=== PATIENT | female | born 1955 | race Caucasian/White ===

== ENCOUNTER 2016-03-03 15:37 | Emergency (ER) | payer MEDICAID ==
[~2016-03-03] VITALS: Ht 162.6 cm; Wt 47.6 kg
[~2016-03-03 15:37] MED LIST: ACHD5005 PO; ALAVERT PO; ALBU8.5H2 INH; ASPI-266 PO; ASPI-587 PO; AZIT250T5 PO; BSP10T PO; BUSP10TA95; BUSP10TA95 PO; CEFP200T2 PO; CODE118S2 PO; CYCL10TA9 PO; DESV100T PO; DICL75TA2 PO; DIPH25TA31 PO; FURO40TA4 PO; GABA-488 PO; GBPN300C PO; HYDR-2858 PO; HYDR25CA5 PO; IBP200T PO; KCL20TCR PO; LEVO40CA PO; LEVO80CA PO; LORA0.5T; LORA0.5T PO; LORA10TA7 PO; MIRT30TA6 PO; MULT-963 PO; MULT-974 PO; NAPR-243 PO; POTA20TA15 PO; PREN1TAB71 PO; PROMETHAZINE CODEINE; QUET100T69; QUET100T69 PO; QUET400T; QUET400T3 PO; QUET400T5 PO; RISP1TAB2 PO; TIZA4TAB3 PO; TIZA4TAB55 PO
--- OUTSIDE RECORDS SUMMARY | 2016-03-03 15:42 | XMS REPORT ---
Author Author HUMA LOZOYA [facility] eClinicalWorks Address Unknown Phone Unavailable Care Team Providers Care Cutter Operator Name Role Phone HUMA LOZOYA CP Unavailable Allergies No Known Allergies Problems Problem Type Condition Code Onset Dates Condition Status Problem Other malaise and fatigue 780.79 Active Problem Bipolar I disorder, most recent episode (or current) unspecified 296.7 Active Problem Cervicalgia 723.1 Active Problem Other specified counseling V65.49 Active Problem Encounter for long-term (current) use of other medications V58.69 Active Problem Unspecified breast screening V76.10 Active Problem Pain in joint, shoulder region 719.41 Active Problem Other and unspecified hyperlipidemia 272.4 Active Problem Symptomatic menopausal or female climacteric states 627.2 Active Problem Screening for malignant neoplasm of the cervix V76.2 Active Medications Medication Code System Code Instructions Start Date End Date Status Dosage Ativan [facility] [address]-10 0.5 MG Orally Twice a day Nov 29, 2014 1 tablet as needed Results No Known Results Summary Purpose eClinicalWorks Submission
--- NOTE | 2016-03-03 15:44 | ED Lower Extremity ---
General Stated Complaint: R ANKLE PAIN Source: patient Exam Limitations: no limitations History of Present Illness Time seen by provider: 15:43 Initial Comments To ER from home per EMS with reports of right lateral ankle pain. This began one week ago when she was lifting a table and she twisted this ankle inwards. Since then however she's been unable to bear weight on the leg. Onset: last week Severity: moderate Pain/Injury Location: right foot, right ankle Method of Injury: unknown Modifying Factors: Worse With Movement Allergies and Home Medications Allergies Coded Allergies: No Known Drug Allergies (Unverified , 07/20/12) Home Medications Aspirin 81 Mg Tablet.dr 81 MG PO DAILY (Reported) Azithromycin 250 Mg Tablet #2 250 MG PO DAILY Prescribed by: FINESSE DESAI on 05/04/15 1211 Buspirone HCl 10 Mg Tablet 10 MG PO BID (Reported) Cefpodoxime Proxetil 200 Mg Tablet #14 200 MG PO BID Prescribed by: FINESSE DESAI on 05/04/15 1211 Diclofenac Sodium 75 Mg Tablet.dr 75 MG PO BID (Reported) Furosemide 40 Mg Tablet 40 MG PO DAILY (Reported) Gabapentin 300 Mg Capsule 300 MG PO TID (Reported) Hydrocodone/Acetaminophen 1 Each Tablet #10 1 EACH PO Q4H PRN PRN PAIN Prescribed by: LI STEIN on 03/03/16 1620 Levomilnacipran Hydrochloride 80 Mg Cap.sa.24h 80 MG PO DAILY (Reported) Loratadine 10 Mg Tablet 10 MG PO DAILY (Reported) Lorazepam 0.5 Mg Tablet 0.5 MG PO DAILY PRN PRN ANXIETY (Reported) Multivitamin 1 Each Tablet 1 TAB PO DAILY (Reported) Potassium Chloride 20 Meq Tab.er.prt 20 MEQ PO DAILY (Reported) Quetiapine Fumarate 100 Mg Tablet 100 MG PO HS (Reported) Tizanidine HCl 4 Mg Tablet 4 MG PO TID PRN PRN MUSCLE SPASMS (Reported) Constitutional: see HPI EENTM: see HPI Respiratory: no symptoms reported Cardiovascular: no symptoms reported Genitourinary: no symptoms reported Musculoskeletal: see HPI Skin: no symptoms reported Psychiatric/Neurological: No Symptoms Reported Past Wvnmtoq-Pnmbmp-Wuzrpb Hx Immunizations Up To Date Tetanus Booster (TDap): Unknown PED Vaccines UTD: No Seasonal Allergies Seasonal Allergies: No Surgeries HX Surgeries: Yes (CYST ON OVARY) Respiratory Hx Respiratory Disorders: Yes Respiratory Disorders: Sleep Apnea, COPD Cardiovascular Hx Cardiac Disorders: No Neurological Hx Neurological Disorders: Yes Reproductive System Hx Reproductive Disorders: No Sexually Transmitted Disease: No HIV/AIDS: No Female Reproductive Disorders: Denies Genitourinary Hx Genitourinary Disorders: No Gastrointestinal Hx Gastrointestinal Disorders: No Musculoskeletal Hx Musculoskeletal Disorders: Yes Musculoskeletal Disorders: Arthritis, Chronic Back Pain Endocrine Hx Endocrine Disorders: No HEENT HX ENT Disorders: No Cancer Hx Cancer: No Psychosocial Hx Psychiatric Problems: Yes Behavioral Health Disorders: Sleep Difficulties, Anxiety, Suicide Attempts, Bipolar, Depression Integumentary HX Skin/Integumentary Disorder: No Blood Transfusions Hx Blood Disorders: No Family Medical History Family Medial History: Alcoholism 19 FATHER G8 BROTHER G8 BROTHER G8 BROTHER G8 SISTER G8 SISTER FH: brain cancer G8 SISTER Neoplasm 19 MOTHER Physical Exam Vital Signs Vital Sign - Last 12Hours 03/03/16 15:37 Temp 97.1 Pulse 95 Resp 16 B/P 144/98 Pulse Ox 97 Capillary Refill : General Appearance: WD/WN no apparent distress HEENT: PERRL/EOMI normal ENT inspection Respiratory: no respiratory distress no accessory muscle use Hips: bilateral hip non-tender, bilateral hip normal inspection, bilateral hip normal range of motion Legs: left leg non-tender, bilateral leg normal inspection, bilateral leg normal range of motion, right leg pain, right leg other (pain over the fibular head) Knees: bilateral knee non-tender, bilateral knee normal inspection, bilateral knee normal range of motion Ankles: right ankle pain, right ankle soft tissue tenderness, right ankle swelling Feet: right foot ecchymosis, right foot pain, right foot soft tissue tenderness , right foot swelling, right foot other (dorsalis pedis pulse +2) Neurologic/Psychiatric: alert normal mood/affect oriented x 3 Skin: normal color warm/dry Progress/Results/Core Measures Results/Orders My Orders Orders-LI STEIN APRN Tibia/Fibula, Right, 2 Views (03/03/16 15:42) Foot, Right, 3 View (03/03/16 15:42) Crutches (03/03/16 15:42) Hydrocodone/Apap 5/325 Tablet (Lortab 5 (03/03/16 15:45) Medications Given in ED Current Medications Medications Dose Ordered Sig/Maddi Route Start Time Stop Time Status Last Admin Dose Admin Acetaminophen/ Hydrocodone Bitart 1 tab ONCE ONCE PO 03/03/16 15:45 03/03/16 15:46 DC 03/03/16 16:05 1 TAB Vital Signs/I&O Vital Sign - Last 12Hours 03/03/16 03/03/16 15:37 16:31 Temp 97.1 Pulse 95 88 Resp 16 16 B/P 144/98 Pulse Ox 97 97 Diagnostic Imaging Diagonstic Imaging: Xray Comments NAME: MAMIE PIEDRA [facility] REC#: [id number] PT STATUS: REG ER : 1955 PHYSICIAN: LI STEIN APRN ADMIT DATE: 03/03/16/ER Draft Date of Exam:03/03/16 TIBIA/FIBULA, RIGHT, 2 VIEWS Right tibia and fibula. INDICATION: Fell, leg pain. FINDINGS: AP and lateral views were obtained. There is a nondisplaced complex fracture of the distal fibula. No other fracture or acute bony abnormality is noted. The knee and ankle joints are fairly well maintained. There is soft tissue edema over the fractured distal fibula. The soft tissues are otherwise unremarkable. IMPRESSION: 1. There is a complex nondisplaced fracture of the distal fibula. There is no acute bony abnormality noted otherwise. 2. These results were called to Li Stein APRN, in the ER. CRITICAL FINDINGS Dictated on workstation # [id number] Dict: 03/03/16 1614 Trans: 03/03/16 1622 [id number] Interpreted by: JAQUAN RAMÍREZ MD Electronically signed by: NAME: MAMIE PIEDRA [facility] REC#: [id number] PT STATUS: REG ER : 1955 PHYSICIAN: LI STEIN APRN ADMIT DATE: 03/03/16/ER Draft Date of Exam:03/03/16 FOOT, RIGHT, 3 VIEW EXAMINATION: Right foot. INDICATION: Foot pain. FINDINGS: Three views were obtained. There is no fracture, dislocation, or acute bony abnormality of the foot evident. The nondisplaced fracture of the distal fibula seen on the right tibia and fibula exam performed in conjunction with this study is again visualized. The soft tissues are unremarkable. IMPRESSION: There is no evidence for an acute bony abnormality of the right foot. The fracture of the distal right fibula seen previously is again visualized. Dictated on workstation # [id number] Dict: 03/03/16 1613 Trans: 03/03/16 1623 [id number] Interpreted by: JAQUAN RAMÍREZ MD Electronically signed by: Departure Communication Progress Notes Patient placed in a posterior short leg splint using 4 inch Ortho-Glass Impression Impression: Primary Impression: Fracture of distal fibula Qualified Code: S82.831A - Other fracture of upper and lower end of right fibula, initial encounter for closed fracture Disposition: HOME, SELF-CARE Condition: Stable Departure-Patient Inst. Decision time for Depature: 16:18 Referrals: MANSOOR SIFUENTES MD,LYNDON LOZOYA,HUMA Sparks MD (PCP/Family) Primary Care Physician HENRIK JACOBS MD,ADYTON GEE,JEFFREY STEWART,RAYMOND Gregory MD Patient Instructions: Ankle Fracture (DC) Add. Discharge Instructions: 1. Wear the splint at all times until you follow-up with orthopedics, at which point they will likely put you in a cast. Keep this dry when you're showering with a trash bag wrapped around the leg 2. Call orthopedist of your choosing for follow-up in 1-2 weeks 3. Pain medication as directed 4. Crutches as needed when walking 5. After the pain medication that I prescribed you runs out, use Tylenol and Motrin Scripts Hydrocodone/Acetaminophen ([place] 5-325 Tablet)1 Each Tablet1 Each PO Q4H PRN PAIN #10 TAB Prov:LI STEIN TERRAZZO GRINDER 03/03/16 LI STEIN TERRAZZO GRINDER Mar 03, 2016 15:44
[2016-03-03] MEDS ORDERED: HYDROcodone/APAP 5 MG/325 MG (LORTAB) TAB PO ONE (15:45)
[2016-03-03] MEDS ORDERED: HYDR-757 PO (16:20)
--- NOTE | 2016-03-03 16:22 | Diagnostic Imaging Report ---
Right tibia and fibula. INDICATION: Fell, leg pain. FINDINGS: AP and lateral views were obtained. There is a nondisplaced complex fracture of the distal fibula. No other fracture or acute bony abnormality is noted. The knee and ankle joints are fairly well maintained. There is soft tissue edema over the fractured distal fibula. The soft tissues are otherwise unremarkable. IMPRESSION: 1. There is a complex nondisplaced fracture of the distal fibula. There is no acute bony abnormality noted otherwise. 2. These results were called to Jigar Stein APRN, in the ER. CRITICAL FINDINGS Dictated by: Dictated on workstation # [id number]
--- NOTE | 2016-03-03 16:23 | Diagnostic Imaging Report ---
EXAMINATION: Right foot. INDICATION: Foot pain. FINDINGS: Three views were obtained. There is no fracture, dislocation, or acute bony abnormality of the foot evident. The nondisplaced fracture of the distal fibula seen on the right tibia and fibula exam performed in conjunction with this study is again visualized. The soft tissues are unremarkable. IMPRESSION: There is no evidence for an acute bony abnormality of the right foot. The fracture of the distal right fibula seen previously is again visualized. Dictated by: Dictated on workstation # [id number]
[2016-03-03 16:31] VITALS: BP 136/88
== END 2016-03-03 16:45 | disposition home or self-care (01) ==
LOC: EDUNIT# 15:37 → ER 15:38
DX: S82.401A Unspecified fracture of shaft of right fibula, initial encounter for closed fracture (principal); J44.9 Chronic obstructive pulmonary disease, unspecified; Z79.82 Long term (current) use of aspirin; Z79.899 Other long term (current) drug therapy; X58.XXXA Exposure to other specified factors, initial encounter; Y92.009 Unspecified place in unspecified non-institutional (private) residence as the place of occurrence of the external cause; Y99.8 Other external cause status
CPT/HCPCS: 29505; 73590; 73630

== ENCOUNTER 2016-07-11 16:09 | Emergency (ER) | payer MEDICAID ==
[~2016-07-11] VITALS: Ht 162.6 cm; Wt 49.9 kg
[~2016-07-11 16:09] MED LIST changes: +HYDR-757 PO
--- NOTE | 2016-07-11 16:46 | ED Psychosocial ---
General Chief Complaint: Detox Stated Complaint: ALCOHOL INTOX Nursing Triage Note: PT HERE WITH VIA EMS. PT REPORTS SHE DRINKS EVERY DAY AND WANTS TO STOP. PT IS TEARFUL. PT REPORTS DRINKING BEEN AND WHISKEY EVERY DAY. Source: patient Exam Limitations: intoxication History of Present Illness Time seen by provider: 16:29 Initial Comments Patient presents to the ED with c/o intoxication per EMS. Patient states EMS was called by her neighbor. States they were drinking together last night, through the night, and today. Did not want to come to the ED. initially reported to nursing staff that she wanted to stop drinking. Patient reports to this examiner that she does NOT want to stop drinking, and is happy with the way things are. States she just wants to go home. States there is somebody at home that can be with her this evening and tonight. Denies suicidal or homicidal ideation. Patient is unsure of how much she has had to drink today. Patient refuses to elaborate on how much she drinks daily. States "I drink a lot." Timing/Duration: just prior to arrival Associated Symptoms: ingestion (alcohol intoxication.) Allergies and Home Medications Allergies Coded Allergies: No Known Drug Allergies (Unverified , 07/20/12) Home Medications Aspirin 81 Mg Tablet.dr, 81 MG PO DAILY, (Reported) Azithromycin 250 Mg Tablet, 250 MG PO DAILY, #2 Ref 0 Prescribed by: FINESSE DESAI on 05/04/15 1211 Buspirone HCl 10 Mg Tablet, 10 MG PO BID, (Reported) Cefpodoxime Proxetil 200 Mg Tablet, 200 MG PO BID, #14 Ref 0 Prescribed by: FINESSE DESAI on 05/04/15 1211 Diclofenac Sodium 75 Mg Tablet.dr, 75 MG PO BID, (Reported) Furosemide 40 Mg Tablet, 40 MG PO DAILY, (Reported) Gabapentin 300 Mg Capsule, 300 MG PO TID, (Reported) Hydrocodone/Acetaminophen 1 Each Tablet, 1 EACH PO Q4H PRN for PAIN, #10 Prescribed by: LI LOPEZ on 03/03/16 1620 Levomilnacipran Hydrochloride 80 Mg Cap.sa.24h, 80 MG PO DAILY, (Reported) Loratadine 10 Mg Tablet, 10 MG PO DAILY, (Reported) Lorazepam 0.5 Mg Tablet, 0.5 MG PO DAILY PRN for ANXIETY, (Reported) Multivitamin 1 Each Tablet, 1 TAB PO DAILY, (Reported) Potassium Chloride 20 Meq Tab.er.prt, 20 MEQ PO DAILY, (Reported) Quetiapine Fumarate 100 Mg Tablet, 100 MG PO HS, (Reported) Tizanidine HCl 4 Mg Tablet, 4 MG PO TID PRN for MUSCLE SPASMS, (Reported) Constitutional: No dizziness, No malaise, No weakness EENTM: no symptoms reported Respiratory: No cough, No short of breath Cardiovascular: No chest pain, No palpitations, No syncope Gastrointestinal: No abdominal pain, No diarrhea, No hematemesis, No jaundice, No melena, No nausea, No vomiting Genitourinary: no symptoms reported Musculoskeletal: no symptoms reported Skin: no symptoms reported Psychiatric/Neurological: Denies Headache, Denies Numbness, Denies Paresthesia , Denies Seizure, Denies Tingling, Denies Tremors, Denies Weakness All Other Systems Reviewed Negative Unless Noted: Yes (Negative excepted noted.) Past Etohpph-Urccre-Eygvmj Hx Patient Social History Alcohol Use: Regular Use Recreational Drug Use: Yes Drug of Choice: WEED Type Used: Cigarettes Recent Foreign Travel: No Contact w/Someone Who Travel: No Recent Infectious Disease Expo: No Recent Hopitalizations: No Immunizations Up To Date Tetanus Booster (TDap): Unknown PED Vaccines UTD: No Seasonal Allergies Seasonal Allergies: No Surgeries HX Surgeries: Yes (CYST ON OVARY) Respiratory Hx Respiratory Disorders: Yes Respiratory Disorders: Sleep Apnea, COPD Cardiovascular Hx Cardiac Disorders: No Neurological Hx Neurological Disorders: Yes Reproductive System Hx Reproductive Disorders: No Sexually Transmitted Disease: No HIV/AIDS: No Female Reproductive Disorders: Denies Genitourinary Hx Genitourinary Disorders: No Gastrointestinal Hx Gastrointestinal Disorders: No Musculoskeletal Hx Musculoskeletal Disorders: Yes Musculoskeletal Disorders: Arthritis, Chronic Back Pain Endocrine Hx Endocrine Disorders: No HEENT HX ENT Disorders: No Cancer Hx Cancer: No Psychosocial Hx Psychiatric Problems: Yes Behavioral Health Disorders: Sleep Difficulties, Anxiety, Suicide Attempts, Bipolar, Depression Integumentary HX Skin/Integumentary Disorder: No Blood Transfusions Hx Blood Disorders: No Reviewed Nursing Assessment Reviewed/Agree w Nursing PMH: Yes Family Medical History Significant Family History: No Pertinent Family Hx Family Medial History: Alcoholism 19 FATHER G8 BROTHER G8 BROTHER G8 BROTHER G8 SISTER G8 SISTER FH: brain cancer G8 SISTER Neoplasm 19 MOTHER Physical Exam Vital Signs Vital Sign - Last 12Hours 07/11/16 16:18 Temp 98.7 Pulse 84 Resp 20 B/P (MAP) 102/74 Pulse Ox 97 O2 Delivery Room Air Capillary Refill : Less Than 3 Seconds General Appearance: no apparent distress, other (chronically ill-appearing female in no acute distress.), thin HEENT: PERRL/EOMI (conjunctiva injected bilaterally.), pharynx normal Neck: non-tender, normal inspection Respiratory: lungs clear, normal breath sounds, no respiratory distress Cardiovascular: normal peripheral pulses, regular rate, rhythm, no edema, no murmur Peripheral Pulses: 2+ Dorsalis Pedis (R), 2+ Left Dors-Pedis (L), 2+ Radial Pulses (R), 2+ Radial Pulses (L) Gastrointestinal: normal bowel sounds, non tender, soft, No distended Extremities: no pedal edema, normal capillary refill Neurologic/Psychiatric: alert, oriented x 3, abnormal gait (unsteady gait), other (intoxicated. elevated mood alternating with tearfulness (patient states she is tearful because "you are so sweet and pretty"). disinhibited behavior. incoordination.) Appearance/Memory: appropriate appearance, neat, denies illness, impaired insight Behavior/Eye Contact: cooperative, good eye contact, decreased rate of speech, compulsive Thoughts/Hallucinations: no apparent hallucination, flight of ideas Skin: normal color, warm/dry Progress/Results/Core Measures Results/Orders Lab Results Laboratory Tests Test 07/11/16 16:13 07/11/16 16:53 Range/Units White Blood Count 18.1 H 4.3-11.0 10^3/uL Red Blood Count 4.07 L 4.35-5.85 10^6/uL Hemoglobin 13.2 11.5-16.0 G/DL Hematocrit 39 35-52 % Mean Corpuscular Volume 96 80-99 FL Mean Corpuscular Hemoglobin 32 25-34 PG Mean Corpuscular Hemoglobin Concent 34 32-36 G/DL Red Cell Distribution Width 13.4 10.0-14.5 % Platelet Count 344 130-400 10^3/uL Mean Platelet Volume 10.5 H 7.4-10.4 FL Neutrophils (%) (Auto) 72 42-75 % Lymphocytes (%) (Auto) 20 12-44 % Monocytes (%) (Auto) 6 0-12 % Eosinophils (%) (Auto) 1 0-10 % Basophils (%) (Auto) 1 0-10 % Neutrophils # (Auto) 13.1 H 1.8-7.8 X 10^3 Lymphocytes # (Auto) 3.7 1.0-4.0 X 10^3 Monocytes # (Auto) 1.0 0.0-1.0 X 10^3 Eosinophils # (Auto) 0.2 0.0-0.3 10^3/uL Basophils # (Auto) 0.1 0.0-0.1 10^3/uL Neutrophils % (Manual) 63 % Lymphocytes % (Manual) 34 % Monocytes % (Manual) 2 % Eosinophils % (Manual) 1 % Basophils % (Manual) 0 % Band Neutrophils 0 % Blood Morphology Comment NORMAL Prothrombin Time 13.2 12.2-14.7 SEC INR Comment 1.0 0.8-1.4 Activated Partial Thromboplast Time 28 24-35 SEC Sodium Level 141 135-145 MMOL/L Potassium Level 3.9 3.6-5.0 MMOL/L Chloride Level 107 98-107 MMOL/L Carbon Dioxide Level 19 L 21-32 MMOL/L Anion Gap 15 H 5-14 MMOL/L Blood Urea Nitrogen 13 7-18 MG/DL Creatinine 0.69 0.60-1.30 MG/DL Estimat Glomerular Filtration Rate > 60 BUN/Creatinine Ratio 19 Glucose Level 62 L 70-105 MG/DL Calcium Level 8.5 8.5-10.1 MG/DL Total Bilirubin 0.3 0.1-1.0 MG/DL Aspartate Amino Transf (AST/SGOT) 28 5-34 U/L Alanine Aminotransferase (ALT/SGPT) 13 0-55 U/L Alkaline Phosphatase 95 40-136 U/L Total Protein 7.4 6.4-8.2 G/DL Albumin 4.2 3.2-4.5 G/DL TSH Menard Testing 0.69 0.35-4.94 UIU/ML Serum Alcohol 199 H <10 MG/DL Urine Color YELLOW Urine Clarity CLEAR Urine pH 6.5 5-9 Urine Specific [place] 1.005 L 1.016-1.022 Urine Protein NEGATIVE NEGATIVE Urine Glucose (UA) NEGATIVE NEGATIVE Urine Ketones NEGATIVE NEGATIVE Urine Nitrite NEGATIVE NEGATIVE Urine Bilirubin NEGATIVE NEGATIVE Urine Urobilinogen NORMAL NORMAL MG/DL Urine Leukocyte Esterase NEGATIVE NEGATIVE Urine RBC (Auto) NEGATIVE NEGATIVE Urine RBC NONE /HPF Urine WBC RARE /HPF Urine Squamous Epithelial Cells 0-2 /HPF Urine Crystals NONE /LPF Urine Bacteria NEGATIVE /HPF Urine Casts NONE /LPF Urine Mucus NEGATIVE /LPF Urine Yeast FEW H /HPF Urine Culture Indicated NO Urine Opiates Screen NEGATIVE NEGATIVE Urine Oxycodone Screen NEGATIVE NEGATIVE Urine Methadone Screen NEGATIVE NEGATIVE Urine Propoxyphene Screen NEGATIVE NEGATIVE Urine Barbiturates Screen NEGATIVE NEGATIVE Ur Tricyclic Antidepressants Screen NEGATIVE NEGATIVE Urine Phencyclidine Screen NEGATIVE NEGATIVE Urine Amphetamines Screen NEGATIVE NEGATIVE Urine Methamphetamines Screen NEGATIVE NEGATIVE Urine Benzodiazepines Screen NEGATIVE NEGATIVE Urine Cocaine Screen NEGATIVE NEGATIVE Urine Cannabinoids Screen NEGATIVE NEGATIVE My Orders Orders - MELISSA TOMAS Alcohol (07/11/16 16:44) Cbc With Automated Diff (07/11/16 16:44) Comprehensive Metabolic Panel (07/11/16 16:44) Drug Screen Stat (Urine) (07/11/16 16:44) Protime With Inr (07/11/16 16:44) Partial Thromboplastin Time (07/11/16 16:44) Thyroid Analyzer (07/11/16 16:44) Ua Culture If Indicated (07/11/16 16:44) Manual Differential (07/11/16 16:13) Vital Signs/I&O Blood Pressure Mean: 83 Departure Communication Progress Notes Patient seen and evaluated. Patient continues to states she would like to go home and has some on the can be at home with her. Denies suicidal or homicidal ideation. Patient is ambulating without difficulty to the bathroom. Patient at one point was seen attempting to leave through the ambulance bay without notifying staff. Patient was advised to return to her room. We will voucher a taxi to transport patient home. Patient instructed to follow-up with Dr. Lozoya this week for recheck and discussion of alcohol abuse. Patient voices understanding and agrees with the treatment plan. Impression Impression: Primary Impression: Alcohol intoxication Qualified Codes: F10.120 - Alcohol abuse with intoxication, uncomplicated Additional Impression: Alcohol abuse Disposition: 01 HOME, SELF-CARE Condition: Improved Departure-Patient Inst. Decision time for Depature: 18:51 Referrals: HUMA LOZOYA MD (PCP/Family) Primary Care Physician Patient Instructions: Alcohol Abuse and Alcoholism (DC) Add. Discharge Instructions: All discharge instructions reviewed with patient and/or family. Voiced understanding.continue usual home medications. Drink plenty of fluids. Follow- up with Dr. Lozoya this week for recheck, call Wednesday morning for appointment time. Return to the emergency department for worsened symptoms or any other concerns. MELISSA TOMAS Jul 11, 2016 16:46
[2016-07-11 16:50] LABS: BASOPHILS # (AUTO) 0.1 10^3/uL (0.0-0.1); BASOPHILS % (AUTO) 1 % (0-10); EOSINOPHILS # (AUTO) 0.2 10^3/uL (0.0-0.3); EOSINOPHILS % (AUTO) 1 % (0-10); LYMPHOCYTES # (AUTO) 3.7 X 10^3 (1.0-4.0); LYMPHOCYTES % (AUTO) 20 % (12-44); MEAN CORPUSCULAR HEMOGLOBIN 32 PG (25-34); MEAN CORPUSCULAR HGB CONC 34 G/DL (32-36); MEAN CORPUSCULAR VOLUME 96 FL (80-99); MEAN PLATELET VOLUME 10.5 FL (7.4-10.4); MONOCYTES % (AUTO) 6 % (0-12); NEUTROPHILS # (AUTO) 13.1 X 10^3 (1.8-7.8); NEUTROPHILS % (AUTO) 72 % (42-75); PLATELET COUNT 344 10^3/uL (130-400); RED BLOOD COUNT 4.07 10^6/uL (4.35-5.85); RED CELL DISTRIBUTION WIDTH 13.4 % (10.0-14.5); WHITE BLOOD COUNT 18.1 10^3/uL (4.3-11.0)
[2016-07-11 16:54] LABS: PROTHROMBIN TIME PATIENT 13.2 SEC (12.2-14.7)
[2016-07-11 17:02] LABS: BILIRUBIN,URINE NEGATIVE (NEGATIVE); KETONES,URINE NEGATIVE (NEGATIVE); LEUKOCYTE ESTERASE ,URINE NEGATIVE (NEGATIVE); NITRITE,URINE NEGATIVE (NEGATIVE); PH,URINE 6.5 (5-9); PROTEIN,URINE NEGATIVE (NEGATIVE); UROBILINOGEN,URINE NORMAL (NORMAL)
[2016-07-11 17:09] LABS: BAND NEUTROPHILS 0 %; NEUTROPHILS % (MANUAL) 63 %
[2016-07-11 17:10] LABS: BASOPHILS % (MANUAL) 0 %; EOSINOPHILS % (MANUAL) 1 %; LYMPHOCYTES % (MANUAL) 34 %
[2016-07-11 17:11] LABS: ALANINE AMINOTRANSFERASE 13 U/L (0-55); ALBUMIN 4.2 G/DL (3.2-4.5); ALCOHOL 199 MG/DL (<10); ANION GAP 15 MMOL/L (5-14); ASPARTATE AMINO TRANSFERASE 28 U/L (5-34); BILIRUBIN,TOTAL 0.3 MG/DL (0.1-1.0); BLOOD UREA NITROGEN 13 MG/DL (7-18); BUN/CREATININE RATIO 19; CALCIUM 8.5 MG/DL (8.5-10.1); CARBON DIOXIDE 19 MMOL/L (21-32); CHLORIDE 107 MMOL/L (98-107); CREATININE SERUM 0.69 MG/DL (0.60-1.30); GFR ESTIMATED > 60; GLUCOSE 62 MG/DL (70-105); POTASSIUM 3.9 MMOL/L (3.6-5.0); SODIUM 141 MMOL/L (135-145); TOTAL PROTEIN 7.4 G/DL (6.4-8.2)
[2016-07-11 17:12] LABS: SQUAMOUS EPITHELIAL CELL,UR 0-2 /HPF; WBC,URINE RARE /HPF; YEAST,URINE FEW /HPF
[2016-07-11 19:12] VITALS: BP 112/72
== END 2016-07-11 19:12 | disposition home or self-care (01) ==
LOC: ER 16:09
DX: F10.129 Alcohol abuse with intoxication, unspecified (principal); J44.9 Chronic obstructive pulmonary disease, unspecified; F17.210 Nicotine dependence, cigarettes, uncomplicated; Z79.82 Long term (current) use of aspirin; Z79.899 Other long term (current) drug therapy; Y90.6 Blood alcohol level of 120-199 mg/100 ml
CPT/HCPCS: 36415; 80053; 80306; 80320; 81000; 84443; 85007; 85027; 85610; 85730

== ENCOUNTER 2017-04-06 12:37 | Emergency (ER) | payer MEDICAID ==
[~2017-04-06] VITALS: Ht 157.5 cm; Wt 40.8 kg
[~2017-04-06 12:37] MED LIST changes: +AZIT250T12 PO; -AZIT250T5 PO
[2017-04-06] MEDS ORDERED: NS IV 1000 ML 1,000 ML IV ONE (12:50)
[2017-04-06 13:00] LABS: BILIRUBIN,URINE NEGATIVE (NEGATIVE); CLARITY,URINE CLEAR; COLOR,URINE YELLOW; GLUCOSE, URINE (UA) NEGATIVE (NEGATIVE); KETONES,URINE NEGATIVE (NEGATIVE); LEUKOCYTE ESTERASE ,URINE NEGATIVE (NEGATIVE); NITRITE,URINE NEGATIVE (NEGATIVE); PH,URINE 5 (5-9); PROTEIN,URINE 2+ (NEGATIVE); UROBILINOGEN,URINE NORMAL (NORMAL)
[2017-04-06 13:07] LABS: AMPHETAMINE SCREEN, URINE NEGATIVE (NEGATIVE); BARBITURATE SCREEN URINE NEGATIVE (NEGATIVE); BENZODIAZEPINES SCREEN URINE NEGATIVE (NEGATIVE); CANNABINOID SCREEN, URINE NEGATIVE (NEGATIVE); COCAINE SCREEN URINE NEGATIVE (NEGATIVE); METHADONE STAT NEGATIVE (NEGATIVE); METHAMPHETAMINE SCREEN URINE S NEGATIVE (NEGATIVE); OPIATE SCREEN URINE NEGATIVE (NEGATIVE); OXYCODONE STAT NEGATIVE (NEGATIVE); PROPOXYPHENE STAT NEGATIVE (NEGATIVE); TRICYCLIC ANTIDEPRESSANTS SCRE NEGATIVE (NEGATIVE)
[2017-04-06 13:18] LABS: BACTERIA,URINE NEGATIVE /HPF
[2017-04-06 13:28] LABS: BASOPHILS # (AUTO) 0.1 10^3/uL (0.0-0.1); BASOPHILS % (AUTO) 1 % (0-10); EOSINOPHILS # (AUTO) 0.1 10^3/uL (0.0-0.3); EOSINOPHILS % (AUTO) 0 % (0-10); HEMATOCRIT 44 % (35-52); HEMOGLOBIN 15.9 G/DL (11.5-16.0); LYMPHOCYTES # (AUTO) 3.9 X 10^3 (1.0-4.0); LYMPHOCYTES % (AUTO) 29 % (12-44); MEAN CORPUSCULAR HEMOGLOBIN 35 PG (25-34); MEAN CORPUSCULAR HGB CONC 36 G/DL (32-36); MEAN CORPUSCULAR VOLUME 99 FL (80-99); MEAN PLATELET VOLUME 9.7 FL (7.4-10.4); MONOCYTES # (AUTO) 1.5 X 10^3 (0.0-1.0); MONOCYTES % (AUTO) 11 % (0-12); NEUTROPHILS % (AUTO) 59 % (42-75); PLATELET COUNT 308 10^3/uL (130-400); RED BLOOD COUNT 4.49 10^6/uL (4.35-5.85); RED CELL DISTRIBUTION WIDTH 12.7 % (10.0-14.5); WHITE BLOOD COUNT 13.4 10^3/uL (4.3-11.0)
--- NOTE | 2017-04-06 13:39 | Diagnostic Imaging Report ---
INDICATION: Injury. COMPARISON: 03/03/2016. FINDINGS: Three radiographic views of the right ankle were obtained. Since the previous exam, there has been adverse interval change. The fracture of the distal right fibula remains non-unified. There is mild lateral and posterior subluxation of the distal fracture fragment. There has also been significant adverse interval change in relation to the tibiotalar joint space. There is significant tilting of the talus with angulation of the tibiotalar joint space oriented medially. There is also significant deformity of the roof of the talus and erosive change to the lateral margins of the articular surface of the tibia. Moderate surrounding soft tissue swelling is noted. No unexpected radiopaque foreign bodies are seen. IMPRESSION: Severe adverse interval change to the right ankle since the previous exam. In summary, there is a non-unified fracture of the distal right fibula with now gross deformity of the tibiotalar joint space with osseous destruction of the lateral margins of the articular surfaces of the tibia and talus. Dictated by: Dictated on workstation # [id number]
--- NOTE | 2017-04-06 13:42 | Diagnostic Imaging Report ---
PATIENT HISTORY: Drug and alcoholic abuse, fall from curb. TECHNIQUE: Single frontal view of the chest. COMPARISON: 05/02/2015. FINDINGS: The lung volumes are large. No focal consolidation is seen. Symmetric nodular opacities in the lung bases are thought to represent nipple shadows. No pneumothorax or pleural effusion is seen. The cardiac silhouette is normal in size. The previously seen right basilar opacity is significantly improved. IMPRESSION: 1. No acute pulmonary abnormality is seen. 2. Findings consistent with chronic obstructive disease. Dictated by: Dictated on workstation # [id number]
[2017-04-06 13:46] LABS: ALANINE AMINOTRANSFERASE 33 U/L (0-55); ALBUMIN 5.3 GM/DL (3.2-4.5); ALKALINE PHOSPHATASE 74 U/L (40-136); BILIRUBIN,TOTAL 0.7 MG/DL (0.1-1.0); BUN/CREATININE RATIO 18; CALCIUM 10.2 MG/DL (8.5-10.1); CARBON DIOXIDE 24 MMOL/L (21-32); CHLORIDE 100 MMOL/L (98-107); CREATININE SERUM 0.62 MG/DL (0.60-1.30); GFR ESTIMATED > 60; GLUCOSE 90 MG/DL (70-105); POTASSIUM 3.7 MMOL/L (3.6-5.0); SODIUM 139 MMOL/L (135-145); TOTAL PROTEIN 8.5 GM/DL (6.4-8.2)
--- NOTE | 2017-04-06 14:54 | ED General ---
General Chief Complaint: Substance Abuse Stated Complaint: DRUG/ETOH ABUSE Nursing Triage Note: ARRIVED VIA EMS FROM HOME. PT STATE SHE HAS BEEN SMOKING CRACK AND DRINKING BEER AND CANT SLEEP. STATES HER RIGHT ANKLE HURTS BUT WOULD NOT STATE HOW IT HAPPENED. Nursing Sepsis Screen: No Definite Risk Source of Information: Patient History of Present Illness Date Seen by Provider: Apr 06, 2017 Time Seen by Provider: 15:10 Initial Comments Patient presents via EMS with complaint of difficulty sleeping after smoking crack and drinking beer. However, she states to this provider her reason for visit is right ankle pain and swelling. Patient was seen in February for fracture of the distal fibula. She was given a boot and instructed to follow- up with orthopedics. She never followed up with orthopedics and threw her boot away. She continues to walk on the right foot because she reports having no other means of transportation. She is acutely intoxicated on arrival but alert. Patient also states "I can't breath". Allergies and Home Medications Allergies Coded Allergies: No Known Drug Allergies (Unverified , 07/20/12) Home Medications Aspirin 81 Mg Tablet.dr, 81 MG PO DAILY, (Reported) Buspirone HCl 10 Mg Tablet, 10 MG PO BID, (Reported) Cefpodoxime Proxetil 200 Mg Tablet, 200 MG PO BID Prescribed by: FINESSE DESAI on 05/04/15 1211 Diclofenac Sodium 75 Mg Tablet.dr, 75 MG PO BID, (Reported) Furosemide 40 Mg Tablet, 40 MG PO DAILY, (Reported) Gabapentin 300 Mg Capsule, 300 MG PO TID, (Reported) Hydrocodone/Acetaminophen 1 Each Tablet, 1 EACH PO Q4H PRN for PAIN Prescribed by: LI LOPEZ on 03/03/16 1620 Levomilnacipran Hydrochloride 80 Mg Cap.sa.24h, 80 MG PO DAILY, (Reported) Loratadine 10 Mg Tablet, 10 MG PO DAILY, (Reported) Lorazepam 0.5 Mg Tablet, 0.5 MG PO DAILY PRN for ANXIETY, (Reported) Multivitamin 1 Each Tablet, 1 TAB PO DAILY, (Reported) Potassium Chloride 20 Meq Tab.er.prt, 20 MEQ PO DAILY, (Reported) Quetiapine Fumarate 100 Mg Tablet, 100 MG PO HS, (Reported) Tizanidine HCl 4 Mg Tablet, 4 MG PO TID PRN for MUSCLE SPASMS, (Reported) Constitutional: see HPI EENTM: no symptoms reported Respiratory: no symptoms reported Cardiovascular: no symptoms reported Gastrointestinal: no symptoms reported Genitourinary: no symptoms reported : No Musculoskeletal: see HPI Skin: no symptoms reported Psychiatric/Neurological: See HPI Hematologic/Lymphatic: No Symptoms Reported Past Qxiirgi-Mvgvig-Pdikjk Hx Patient Social History Alcohol Use: Regular Use Number of Drinks Today: BB Alcohol Beverage of Choice: Whiskey, [place] Recreational Drug Use: Yes (CRACK COCAINE, POT) Drug of Choice: WEED Smoking Status: Current Everyday Smoker Type Used: Cigarettes Recent Foreign Travel: No Contact w/Someone Who Travel: No Recent Infectious Disease Expo: No Recent Hopitalizations: No Immunizations Up To Date Tetanus Booster (TDap): Unknown PED Vaccines UTD: No Seasonal Allergies Seasonal Allergies: No Surgeries History of Surgeries: Yes (CYST ON OVARY) Respiratory History of Respiratory Disorde: Yes Respiratory Disorders: Sleep Apnea, COPD Currently Using CPAP: No Currently Using BIPAP: No Cardiovascular History of Cardiac Disorders: No Neurological History of Neurological Disord: Yes Reproductive System Hx Reproductive Disorders: No Sexually Transmitted Disease: No HIV/AIDS: No Female Reproductive Disorders: Denies Genitourinary History of Genitourinary Disor: No Gastrointestinal History of Gastrointestinal Di: No Musculoskeletal History of Musculoskeletal Dis: Yes Musculoskeletal Disorders: Arthritis, Chronic Back Pain Endocrine History of Endocrine Disorders: No HEENT History of HEENT Disorders: No Cancer History of Cancer: No Psychosocial History of Psychiatric Problem: Yes (alcoholism) Behavioral Health Disorders: Sleep Difficulties, Anxiety, Suicide Attempts, Bipolar, Depression Integumentary History of Skin or Integumenta: No Blood Transfusions History of Blood Disorders: No Family Medical History Significant Family History: No Pertinent Family Hx Family Medial History: Alcoholism 19 FATHER G8 BROTHER G8 BROTHER G8 BROTHER G8 SISTER G8 SISTER FH: brain cancer G8 SISTER Neoplasm 19 MOTHER Physical Exam Vital Signs Vital Signs - First Documented 04/06/17 12:42 Temp 98.0 Pulse 97 Resp 18 B/P (MAP) 118/100 (106) Pulse Ox 97 O2 Delivery Room Air Capillary Refill : Less Than 3 Seconds General Appearance: WD/WN, Mild Distress, Thin HEENT: PERRL/EOMI, Normal ENT Inspection, Pharynx Normal Neck: Normal Inspection Respiratory: Lungs Clear, Normal Breath Sounds, No Accessory Muscle Use, No Respiratory Distress Cardiovascular: Regular Rate, Rhythm, No Edema, No Murmur Gastrointestinal: Non Tender, Soft Extremity: Other (Right ankle pain and swelling. Retains pedal pulses, sensation, cap refill and movement of toes) Neurologic/Psychiatric: Alert, Oriented x3, No Motor/Sensory Deficits, oliving machine operator II- XII Norm as Tested, Other (tearful and intoxicated) Skin: Normal Color, Warm/Dry Progress/Results/Core Measures Suspected Sepsis Recent Fever Within 48 Hours: No Infection Criteria Present: None New/Unexplained Altered Menta: No Sepsis Screen: No Definite Risk Sepsis Diagnosis: SIRS Temperature:98.0 Pulse: 97 Respiratory Rate: 18 Laboratory Tests 04/06/17 12:20: White Blood Count 13.4H Blood Pressure 118 /100 Mean: 106 Laboratory Tests 04/06/17 12:20: Creatinine 0.62, Platelet Count 308, Total Bilirubin 0.7 Results/Orders Lab Results My Orders Medications Given in ED Vital Signs/I&O Capillary Refill : Less Than 3 Seconds Blood Pressure Mean: 106 Progress Note : Progress Note There has been acute decompensation in the right ankle fracture since prior x- rays. Case was discussed with Dr. Polanco who reviewed the images. He advised follow-up with him to determine appropriate next steps. In the meantime he requested use of a boot and crutches. Patient has a furrier apprentice through [facility]. Patient does not know the furrier apprentice's phone number. I called our social work at [employer] and left a message hoping for follow-up. Patient was fitted with crutches and a boot. Patient was assisted with transportation home. Diagnostic Imaging Diagonstic Imaging: Xray Plain Films/CT/US/NM/MRI: chest Comments Viewed by me and report reviewed: NAME: MAMIE PIEDRA [facility] REC#: [id number] PT STATUS: REG ER : 1955 PHYSICIAN: MALIA JOLLY MD ADMIT DATE: 04/06/17/ER Signed Date of Exam: 04/06/17 CHEST 1 VIEW, AP/PA ONLY PATIENT HISTORY: Drug and alcoholic abuse, fall from curb. TECHNIQUE: Single frontal view of the chest. COMPARISON: 05/02/2015. FINDINGS: The lung volumes are large. No focal consolidation is seen. Symmetric nodular opacities in the lung bases are thought to represent nipple shadows. No pneumothorax or pleural effusion is seen. The cardiac silhouette is normal in size. The previously seen right basilar opacity is significantly improved. IMPRESSION: 1. No acute pulmonary abnormality is seen. 2. Findings consistent with chronic obstructive disease. Dictated by: Dictated on workstation # [id number] Dict: 04/06/17 1337 Trans: 04/06/17 1425 Interpreted by: PATIENCE MARTINEZ MD Electronically signed by: PATIENCE MARTINEZ MD 04/06/17 1425 Diagonstic Imaging: Xray Plain Films/CT/US/NM/MRI: ankle Comments Viewed by me and report below reviewed: NAME: MAMIE PIEDRA [facility] REC#: [id number] PT STATUS: DEP ER : 1955 PHYSICIAN: MALIA JOLLY MD ADMIT DATE: 04/06/17/ER Signed Date of Exam: 04/06/17 ANKLE, RIGHT, 3 VIEWS INDICATION: Injury. COMPARISON: 03/03/2016. FINDINGS: Three radiographic views of the right ankle were obtained. Since the previous exam, there has been adverse interval change. The fracture of the distal right fibula remains non-unified. There is mild lateral and posterior subluxation of the distal fracture fragment. There has also been significant adverse interval change in relation to the tibiotalar joint space. There is significant tilting of the talus with angulation of the tibiotalar joint space oriented medially. There is also significant deformity of the roof of the talus and erosive change to the lateral margins of the articular surface of the tibia. Moderate surrounding soft tissue swelling is noted. No unexpected radiopaque foreign bodies are seen. IMPRESSION: Severe adverse interval change to the right ankle since the previous exam. In summary, there is a non-unified fracture of the distal right fibula with now gross deformity of the tibiotalar joint space with osseous destruction of the lateral margins of the articular surfaces of the tibia and talus. Dictated by: Dictated on workstation # [id number] Dict: 04/06/17 1333 Trans: 02/28/18 0802 Interpreted by: GERALD SEYMOUR MD Electronically signed by: GERALD SEYMOUR MD 04/07/17801 Departure Impression Impression: Primary Impression: Closed right ankle fracture Qualified Codes: S82.891K - Other fracture of right lower leg, subsequent encounter for closed fracture with nonunion Additional Impression: Alcohol intoxication Qualified Codes: F10.929 - Alcohol use, unspecified with intoxication, unspecified Disposition: 01 HOME, SELF-CARE Condition: Improved Departure-Patient Inst. Decision time for Depature: 14:30 Referrals: HUMA LOZOYA MD (PCP/Family) Primary Care Physician RAYMOND POLANCO MD Patient Instructions: ALCOHOL AND SUBSTANCE ABUSE Add. Discharge Instructions: Follow up with Dr. Polanco as soon as possible. Please call his office for an appointment today. Return to care if symptoms worsen. Wear your boot whenever active. Do not bear weight without your boot. Use crutches as much as possible. You may take Tylenol (acetaminophen) up to 500 mg every 6 hours as needed for pain. Rest, icing in 20 minute intervals, and elevating should also help your pain and swelling. Work with your keycase assembler to help make arrangements for your doctor's appointments and transportation. All discharge instructions reviewed with patient and/or family. Voiced understanding. Copy Copies To 1: RAYMOND POLANCO MD Copies To 2: BERRY BALDERRAMA JOSHUA T MD Apr 06, 2017 14:54
[2017-04-06] MEDS ORDERED: ACETAMINOPHEN 500 MG TAB (TYLENOL) PO ONE (15:00)
[2017-04-06 15:08] VITALS: BP 118/81
== END 2017-04-06 15:08 | disposition home or self-care (01) ==
LOC: EDUNIT# 12:37 → ER 12:39
DX: S82.831A Other fracture of upper and lower end of right fibula, initial encounter for closed fracture (principal); F10.129 Alcohol abuse with intoxication, unspecified; G47.30 Sleep apnea, unspecified; J44.9 Chronic obstructive pulmonary disease, unspecified; F41.9 Anxiety disorder, unspecified; F31.9 Bipolar disorder, unspecified; F14.10 Cocaine abuse, uncomplicated; F12.10 Cannabis abuse, uncomplicated; F17.210 Nicotine dependence, cigarettes, uncomplicated; Z91.5 Personal history of self-harm; Z80.8 Family history of malignant neoplasm of other organs or systems; Z79.82 Long term (current) use of aspirin
CPT/HCPCS: 36415; 71045; 73610; 80053; 80306; 80320; 81000; 85025; 96360

== ENCOUNTER 2017-04-06 18:37 | Emergency (ER) | payer MEDICAID ==
[~2017-04-06] VITALS: Ht 157.5 cm; Wt 41.1 kg
--- OUTSIDE RECORDS SUMMARY | 2017-04-06 18:42 | XMS REPORT ---
Author Author HUMA LOZOYA Organization [facility] Address [address] [place] [address] Care Team Providers Care Casket Assembler Metal Name Role Phone HUMA LOZOYA Unavailable PROBLEMS Type Condition ICD9-CM Code PVD10-SI Code Onset Dates Condition Status SNOMED Code Problem Other and unspecified hyperlipidemia 272.4 Active 75578987 Problem Alcoholism F10.20 Active 8671525 Problem Asthma J45.909 Active 601210500 Problem Other chronic pain G89.29 Active 03925738 Problem Arthritis M19.90 Active 3500357 Problem Closed fracture of shaft of right fibula, unspecified fracture morphology, initial encounter S82.401A Active 44830844 Problem Bipolar disorder F31.9 Active 49637118 Problem Arthropathy, unspecified M12.9 Active 108037687 Problem Major depressive disorder, single episode F32.9 Active 21189437 ALLERGIES No Information SOCIAL HISTORY Never Assessed PLAN OF CARE VITAL SIGNS MEDICATIONS Medication Instructions Dosage Frequency Start Date End Date Duration Status Diclofenac Sodium 75 MG Orally 2 times a day 1 tablet with food or milk 12h 8 Sep, 2016 30 days Active RESULTS No Results PROCEDURES No Known procedures IMMUNIZATIONS No Known Immunizations MEDICAL (GENERAL) HISTORY Type Description Date Medical History asthma Medical History headache Medical History chronic pain-low back with spasms Medical History anxiety Medical History depression Hospitalization History childbirth x 4
--- OUTSIDE RECORDS SUMMARY | 2017-04-06 18:42 | XMS REPORT ---
Author Author HUMA LOZOYA [facility] Address [address] [place] [address] Care Team Providers Care Product Development Manager Name Role Phone HUMA LOZOYA Unavailable PROBLEMS Type Condition ICD9-CM Code IFR50-UR Code Onset Dates Condition Status SNOMED Code Problem Asthma J45.909 Active 274539693 Problem Other and unspecified hyperlipidemia 272.4 Active 50921961 Problem Arthritis M19.90 Active 4785603 Problem Arthropathy, unspecified M12.9 Active 689611893 Problem Bipolar disorder F31.9 Active 32008389 Problem Alcoholism F10.20 Active 7170275 Problem Major depressive disorder, single episode F32.9 Active 39835176 Problem Closed fracture of shaft of right fibula, unspecified fracture morphology, initial encounter S82.401A Active 19247732 ALLERGIES No Known Allergies SOCIAL HISTORY Never Assessed PLAN OF CARE Activity Details Follow Up prn Reason: VITAL SIGNS Height 62 in 2016-03-26 Weight 87.5 lbs 2016-03-26 Temperature 97.4 degrees Fahrenheit 2016-03-26 Heart Rate 78 bpm 2016-03-26 Respiratory Rate 16 2016-03-26 BMI 16.00 kg/m2 2016-03-26 Blood pressure systolic 100 mmHg 2016-03-26 Blood pressure diastolic 70 mmHg 2016-03-26 MEDICATIONS Medication Instructions Dosage Frequency Start Date End Date Duration Status Albuterol Sulfate 90 mcg/actuation 2 puffs by Inhalation route every 6 hours as needed PRN cough or wheezing Nov, Active conjugated estrogens 0.625 mg/gram insert 0.5 g by Vaginal route 1 time per weekdisp: 42.5 grams Feb, Active Gabapentin 300 MG TAKE 1 CAPSULE BY MOUTH THREE TIMES DAILY -MUST BE SEEN FOR FURTHER REFILLS 30 Active Diclofenac Sodium 75 MG TAKE ONE TABLET BY MOUTH TWICE DAILY NEEDED FOR PAIN 30 Active Potassium Chloride Kasia ER 20 MEQ TAKE ONE TABLET BY MOUTH EVERY DAY 30 Active Furosemide 40 MG TAKE ONE TABLET BY MOUTH EVERY DAY 30 Active Loratadine 10 MG TAKE ONE TABLET BY MOUTH EVERY DAY 30 Active Tramadol HCl 50 mg Orally every 6 hrs 1 tablet as needed 6h 16 Mar, 2016 Active Promethazine-Codeine 6.25-10 MG/5ML Orally every 4 hrs 5 ml as needed 4h Apr, Active Fetzima 40 MG Orally Once a day 1 capsule 24h Active Tizanidine HCl 4 MG TAKE ONE TABLET BY MOUTH THREE TIMES DAILY 30 Active Ativan 0.5 MG Orally Once a day 1 tablet as needed 24h Nov, Active Seroquel XR 400 MG TAKE ONE TABLET BY MOUTH AT BEDTIME -MUST BE SEEN FOR FURTHER REFILLS 30 Active Trazodone HCl 100 MG Orally Once a day 1 tablet at bedtime 24h Nov, Active RESULTS Name Result Date Reference Range Xray : Ankle, Right 3 views (IN HOUSE) PROCEDURES Procedure Date Ordered Result Body Site X-RAY EXAM OF ANKLE Mar 26, 2016 IMMUNIZATIONS No Known Immunizations MEDICAL (GENERAL) HISTORY Type Description Date Medical History asthma Medical History headache Medical History chronic pain-low back with spasms Medical History anxiety Medical History depression Hospitalization History childbirth x 4
--- OUTSIDE RECORDS SUMMARY | 2017-04-06 18:42 | XMS REPORT ---
Author Author HUMA LOZOYA [facility] Address [address] [place] [address] Care Team Providers Care Software Technical Lead Name Role Phone HUMA LOZOYA Unavailable PROBLEMS Type Condition ICD9-CM Code TOB06-NL Code Onset Dates Condition Status SNOMED Code Problem Asthma J45.909 Active 799053380 Problem Other and unspecified hyperlipidemia 272.4 Active 00181960 Problem Arthritis M19.90 Active 8914011 Problem Arthropathy, unspecified M12.9 Active 628619273 Problem Bipolar disorder F31.9 Active 12934255 Problem Alcoholism F10.20 Active 0494448 Problem Major depressive disorder, single episode F32.9 Active 07443494 Problem Closed fracture of shaft of right fibula, unspecified fracture morphology, initial encounter S82.401A Active 11527826 ALLERGIES Unknown Allergies SOCIAL HISTORY No smoking Hx information available PLAN OF CARE VITAL SIGNS MEDICATIONS Unknown Medications RESULTS No Results PROCEDURES No Known procedures IMMUNIZATIONS No Known Immunizations
--- OUTSIDE RECORDS SUMMARY | 2017-04-06 18:43 | XMS REPORT ---
Author Author HUMA LOZOYA [facility] Address [address] [place] [address] Care Team Providers Care Shank Piece Tacker Name Role Phone HUMA LOZOYA Unavailable PROBLEMS Type Condition ICD9-CM Code JDC08-YD Code Onset Dates Condition Status SNOMED Code Problem Asthma J45.909 Active 528761005 Problem Other and unspecified hyperlipidemia 272.4 Active 81737992 Problem Arthritis M19.90 Active 2146976 Problem Arthropathy, unspecified M12.9 Active 202458991 Problem Bipolar disorder F31.9 Active 27815890 Problem Alcoholism F10.20 Active 7107918 Problem Major depressive disorder, single episode F32.9 Active 62092510 Problem Closed fracture of shaft of right fibula, unspecified fracture morphology, initial encounter S82.401A Active 83174364 ALLERGIES Unknown Allergies SOCIAL HISTORY No smoking Hx information available PLAN OF CARE VITAL SIGNS MEDICATIONS Unknown Medications RESULTS No Results PROCEDURES No Known procedures IMMUNIZATIONS No Known Immunizations
--- OUTSIDE RECORDS SUMMARY | 2017-04-06 18:45 | XMS REPORT | Continuity of Care Document ---
Author Author [facility] Address Unknown Phone Unavailable Allergies Active Description Code Type Severity Reaction Onset Reported/Identified Relationship to Patient Clinical Status Yes No Known Drug Allergies [id number] Drug Allergy Unknown N/A 07/20/2012 Medications There is no data. Problems Date Dx Coded Attending Type Code Diagnosis Diagnosed By 04/01/2010 HUMA LOZOYA MD 305.1 NONDEPENDENT TOBACCO USE DISORDER 04/01/2010 HUMA LOZOYA MD 465.9 Upper Respiratory Infection 04/01/2010 BERRY BALDERRAMA DO 305.1 NONDEPENDENT TOBACCO USE DISORDER 04/01/2010 BERRY BALDERRAMA DO 465.9 Upper Respiratory Infection 04/01/2010 BERRY BALDERRAMA DO 305.1 NONDEPENDENT TOBACCO USE DISORDER 04/01/2010 BERRY BALDERRAMA DO 465.9 Upper Respiratory Infection 04/01/2010 HUMA LOZOYA MD 305.1 NONDEPENDENT TOBACCO USE DISORDER 04/01/2010 HUMA LOZOYA MD 465.9 Upper Respiratory Infection 04/01/2010 305.1 NONDEPENDENT TOBACCO USE DISORDER 04/01/2010 465.9 Upper Respiratory Infection 04/01/2010 HUMA LOZOYA MD 305.1 NONDEPENDENT TOBACCO USE DISORDER 04/01/2010 HUMA LOZOYA MD 465.9 Upper Respiratory Infection 04/01/2010 HUMA LOZOYA MD 305.1 NONDEPENDENT TOBACCO USE DISORDER 04/01/2010 HUMA LOZOYA MD 465.9 Upper Respiratory Infection 04/01/2010 HUMA LOZOYA MD 305.1 NONDEPENDENT TOBACCO USE DISORDER 04/01/2010 HUMA LOZOYA MD 465.9 Upper Respiratory Infection 04/01/2010 HUMA LOZOYA MD 305.1 NONDEPENDENT TOBACCO USE DISORDER 04/01/2010 HUMA LOZOYA MD 465.9 Upper Respiratory Infection 04/01/2010 HUMA LOZOYA MD 305.1 NONDEPENDENT TOBACCO USE DISORDER 04/01/2010 HUMA LOZOYA MD 465.9 Upper Respiratory Infection 04/01/2010 DWIGHT DRILL RUNNER HELPER, APRIL A 305.1 NONDEPENDENT TOBACCO USE DISORDER 04/01/2010 DWIGHT DRILL RUNNER HELPER, APRIL A 465.9 Upper Respiratory Infection 04/01/2010 DWIGHT DRILL RUNNER HELPER, APRIL A 305.1 NONDEPENDENT TOBACCO USE DISORDER 04/01/2010 DWIGHT DRILL RUNNER HELPER, APRIL A 465.9 Upper Respiratory Infection 04/01/2010 BALDERRAMA DO, BERRY K 305.1 NONDEPENDENT TOBACCO USE DISORDER 04/01/2010 BALDERRAMA DO, BERRY K 465.9 Upper Respiratory Infection 04/01/2010 BALDERRAMA DO, BERRY K 305.1 NONDEPENDENT TOBACCO USE DISORDER 04/01/2010 BALDERRAMA DO, BERRY K 465.9 Upper Respiratory Infection 04/01/2010 HUMA LOZOYA MD 305.1 NONDEPENDENT TOBACCO USE DISORDER 04/01/2010 HUMA LOZOYA MD 465.9 Upper Respiratory Infection 04/01/2010 HUMA LOZOYA MD 305.1 NONDEPENDENT TOBACCO USE DISORDER 04/01/2010 HUMA LOZOYA MD 465.9 Upper Respiratory Infection 04/01/2010 GIAN FAIRCHILD ADDIS A 305.1 NONDEPENDENT TOBACCO USE DISORDER 04/01/2010 SPRINGER DEVORAH ADDIS A 465.9 Upper Respiratory Infection 04/01/2010 HUMA LOZOYA MD 305.1 NONDEPENDENT TOBACCO USE DISORDER 04/01/2010 HUMA LOZOYA MD 465.9 Upper Respiratory Infection 04/01/2010 HUMA LOZOYA MD 305.1 NONDEPENDENT TOBACCO USE DISORDER 04/01/2010 HUMA LOZOYA MD 465.9 Upper Respiratory Infection 04/01/2010 305.1 NONDEPENDENT TOBACCO USE DISORDER 04/01/2010 465.9 Upper Respiratory Infection 04/01/2010 HUMA LOZOYA MD 305.1 NONDEPENDENT TOBACCO USE DISORDER 04/01/2010 HUMA LOZOYA MD 465.9 Upper Respiratory Infection 05/14/2010 HUMA LOZOYA MD 354.0 CARPAL TUNNEL SYNDROME 05/14/2010 HUMA LOZOYA MD V72.31 Meat Curer Exam, Routine 05/14/2010 BALDERRAMA DO, BERRY K 354.0 CARPAL TUNNEL SYNDROME 05/14/2010 BALDERRAMA DO BERRY K V72.31 Meat Curer Exam, Routine 05/14/2010 BALDERRAMA DO, BERRY K 354.0 CARPAL TUNNEL SYNDROME 05/14/2010 BALDERRAMA DO, BERRY K V72.31 Meat Curer Exam, Routine 05/14/2010 DEVORA PINEDO, HUMA 354.0 CARPAL TUNNEL SYNDROME 05/14/2010 DEVORA PINEDO, HUMA V72.31 Meat Curer Exam, Routine 05/14/2010 354.0 CARPAL TUNNEL SYNDROME 05/14/2010 V72.31 Meat Curer Exam, Routine 05/14/2010 DEVORA PINEDO, HUMA 354.0 CARPAL TUNNEL SYNDROME 05/14/2010 DEVORA PINEDO, HUMA V72.31 Meat Curer Exam, Routine 05/14/2010 DEVORA PINEDO, HUMA 354.0 CARPAL TUNNEL SYNDROME 05/14/2010 DEVORA PINEDO, HUMA V72.31 Meat Curer Exam, Routine 05/14/2010 DEVORA PINEDO, UHMA 354.0 CARPAL TUNNEL SYNDROME 05/14/2010 HUMA LOZOYA MD V72.31 Meat Curer Exam, Routine 05/14/2010 DEVORA PINEDO, HUMA 354.0 CARPAL TUNNEL SYNDROME 05/14/2010 HUMA LOZOYA MD V72.31 Meat Curer Exam, Routine 05/14/2010 HUMA LOZOYA MD 354.0 CARPAL TUNNEL SYNDROME 05/14/2010 HUMA LOZOYA MD V72.31 Meat Curer Exam, Routine 05/14/2010 DWIGHT FAIRCHILD, APRIL A 354.0 CARPAL TUNNEL SYNDROME 05/14/2010 APRIL QUINTANILLA APRN A V72.31 Meat Curer Exam, Routine 05/14/2010 DWIGHT FAIRCHILD, APRIL A 354.0 CARPAL TUNNEL SYNDROME 05/14/2010 APRIL QUINTANILLA APRN A V72.31 Meat Curer Exam, Routine 05/14/2010 BALDERRAMA DO, BERRY K 354.0 CARPAL TUNNEL SYNDROME 05/14/2010 BALDERRAMA DO, BERRY K V72.31 Meat Curer Exam, Routine 05/14/2010 BALDERRAMA DO, BERRY K 354.0 CARPAL TUNNEL SYNDROME 05/14/2010 BALDERRAMA DO, BERRY K V72.31 Meat Curer Exam, Routine 05/14/2010 DEVORA PINEDO, HUMA 354.0 CARPAL TUNNEL SYNDROME 05/14/2010 HUMA LOZOYA MD V72.31 Meat Curer Exam, Routine 05/14/2010 DEVORA PINEDO, HUMA 354.0 CARPAL TUNNEL SYNDROME 05/14/2010 HUMA LOZOYA MD V72.31 Meat Curer Exam, Routine 05/14/2010 ADDIS SPRINGER APRN 354.0 CARPAL TUNNEL SYNDROME 05/14/2010 ADDIS SPRINGER APRN A V72.31 Meat Curer Exam, Routine 05/14/2010 HUMA LOZOYA MD 354.0 CARPAL TUNNEL SYNDROME 05/14/2010 HUMA LOZOYA MD V72.31 Meat Curer Exam, Routine 05/14/2010 HUMA LOZOYA MD 354.0 CARPAL TUNNEL SYNDROME 05/14/2010 HUMA LOZOYA MD V72.31 Meat Curer Exam, Routine 05/14/2010 354.0 CARPAL TUNNEL SYNDROME 05/14/2010 V72.31 Meat Curer Exam, Routine 05/14/2010 HUMA LOZYOA MD 354.0 CARPAL TUNNEL SYNDROME 05/14/2010 HUMA LOZOYA MD V72.31 Meat Curer Exam, Routine 06/09/2010 HUMA LOZOYA MD 381.81 Dysfunction Of Eustachian Tube 06/09/2010 BERRY BALDERRAMA DO 381.81 Dysfunction Of Eustachian Tube 06/09/2010 BERRY BALDERRAMA DO 381.81 Dysfunction Of Eustachian Tube 06/09/2010 HUMA LOZOYA MD 381.81 Dysfunction Of Eustachian Tube 06/09/2010 381.81 Dysfunction Of Eustachian Tube 06/09/2010 HUMA LOZOYA MD 381.81 Dysfunction Of Eustachian Tube 06/09/2010 HUMA LOZOYA MD 381.81 Dysfunction Of Eustachian Tube 06/09/2010 HUMA LOZOYA MD 381.81 Dysfunction Of Eustachian Tube 06/09/2010 HUMA LOZOYA MD 381.81 Dysfunction Of Eustachian Tube 06/09/2010 HUMA LOZOYA MD 381.81 Dysfunction Of Eustachian Tube 06/09/2010 APRIL QUINTANILLA APRN 381.81 Dysfunction Of Eustachian Tube 06/09/2010 APRIL QUINTANILLA APRN 381.81 Dysfunction Of Eustachian Tube 06/09/2010 BERRY BALDERRAMA DO 381.81 Dysfunction Of Eustachian Tube 06/09/2010 BERRY BALDERRAMA DO 381.81 Dysfunction Of Eustachian Tube 06/09/2010 HUMA LOZOYA MD 381.81 Dysfunction Of Eustachian Tube 06/09/2010 HUMA LOZOYA MD 381.81 Dysfunction Of Eustachian Tube 06/09/2010 ADDIS SPRINGER APRN 381.81 Dysfunction Of Eustachian Tube 06/09/2010 HUMA LOZOYA MD 381.81 Dysfunction Of Eustachian Tube 06/09/2010 HUMA LOZOYA MD 381.81 Dysfunction Of Eustachian Tube 06/09/2010 381.81 Dysfunction Of Eustachian Tube 06/09/2010 HUMA LOZOYA MD 381.81 Dysfunction Of Eustachian Tube 06/16/2010 HUMA LOZOYA MD9.43 Pain In Joint Involving Forearm 06/16/2010 BERRY BALDERRAMA DO 71Olivia.43 Pain In Joint Involving Forearm 06/16/2010 BERRY BALDERRAMA DO 71Olivia.43 Pain In Joint Involving Forearm 06/16/2010 HUMA LOZOYA MD.43 Pain In Joint Involving Forearm 06/16/2010 719.43 Pain In Joint Involving Forearm 06/16/2010 HUMA LOZOYA MD.43 Pain In Joint Involving Forearm 06/16/2010 HUMA LOZOYA MD.43 Pain In Joint Involving Forearm 06/16/2010 HUMA LOZOYA MD.43 Pain In Joint Involving Forearm 06/16/2010 HUMA LOZOYA MD.43 Pain In Joint Involving Forearm 06/16/2010 HUMA LOZOYA MD.43 Pain In Joint Involving Forearm 06/16/2010 APRIL QUINTANILLA APRN 719.43 Pain In Joint Involving Forearm 06/16/2010 APRIL QUINTANILLA APRN 719.43 Pain In Joint Involving Forearm 06/16/2010 BERRY BALDERRAMA DO 719.43 Pain In Joint Involving Forearm 06/16/2010 BERRY BALDERRAMA DO 719.43 Pain In Joint Involving Forearm 06/16/2010 HUMA LOZOYA MD.43 Pain In Joint Involving Forearm 06/16/2010 HUMA LOZOYA MD.43 Pain In Joint Involving Forearm 06/16/2010 ADDIS SPRINGER APRN 719.43 Pain In Joint Involving Forearm 06/16/2010 HUMA LOZOYA MD.43 Pain In Joint Involving Forearm 06/16/2010 HUMA LOZOYA MD.43 Pain In Joint Involving Forearm 06/16/2010 719.43 Pain In Joint Involving Forearm 06/16/2010 HUMA LOZOYA MD 719.43 Pain In Joint Involving Forearm 08/12/2010 HUMA LOZOYA MD 303.03 Acute Alcoholic Intoxication In Alcoholism In Remission 08/12/2010 HUMA LOZOYA MD 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 08/12/2010 HUMA LOZOYA MD 782.3 Edema 08/12/2010 HUMA LOZOYA MD 786.02 Orthopnea 08/12/2010 BALDERRAMA DO, BERRY K 303.03 Acute Alcoholic Intoxication In Alcoholism In Remission 08/12/2010 BALDERRAMA DO, BERRY K 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 08/12/2010 BALDERRAMA DO, BERRY K 782.3 Edema 08/12/2010 BALDERRAMA DO, BERRY K 786.02 Orthopnea 08/12/2010 BALDERRAMA DO, BERRY K 303.03 Acute Alcoholic Intoxication In Alcoholism In Remission 08/12/2010 BALDERRAMA DO BERRY K 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 08/12/2010 BALDERRAMA DO, BERRY K 782.3 Edema 08/12/2010 BALDERRAMA DO, BERRY K 786.02 Orthopnea 08/12/2010 HUMA LOZOYA MD 303.03 Acute Alcoholic Intoxication In Alcoholism In Remission 08/12/2010 HUMA LOZOYA MD 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 08/12/2010 HUMA LOZOYA MD 782.3 Edema 08/12/2010 HUMA LOZOYA MD 786.02 Orthopnea 08/12/2010 303.03 Acute Alcoholic Intoxication In Alcoholism In Remission 08/12/2010 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 08/12/2010 782.3 Edema 08/12/2010 786.02 Orthopnea 08/12/2010 HUMA LOZOYA MD 303.03 Acute Alcoholic Intoxication In Alcoholism In Remission 08/12/2010 HUMA LOZOYA MD 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 08/12/2010 HUMA LOZOYA MD 782.3 Edema 08/12/2010 HUMA LOZOYA MD 786.02 Orthopnea 08/12/2010 HUMA LOZOYA MD 303.03 Acute Alcoholic Intoxication In Alcoholism In Remission 08/12/2010 HUMA LOZOYA MD 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 08/12/2010 HUMA LOZOYA MD 782.3 Edema 08/12/2010 HUMA LOZOYA MD 786.02 Orthopnea 08/12/2010 HUMA LOZOYA MD 303.03 Acute Alcoholic Intoxication In Alcoholism In Remission 08/12/2010 HUMA LOZOYA MD 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 08/12/2010 HUMA LOZOYA MD 782.3 Edema 08/12/2010 HUMA LOZOYA MD 786.02 Orthopnea 08/12/2010 HUMA LOZOYA MD 303.03 Acute Alcoholic Intoxication In Alcoholism In Remission 08/12/2010 HUMA LOZOYA MD 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 08/12/2010 HUMA LOZOYA MD 782.3 Edema 08/12/2010 HUMA LOZOYA MD 786.02 Orthopnea 08/12/2010 HUMA LOZOYA MD 303.03 Acute Alcoholic Intoxication In Alcoholism In Remission 08/12/2010 HUMA LOZOYA MD 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 08/12/2010 HUMA LOZOYA MD 782.3 Edema 08/12/2010 HUMA LOZOYA MD 786.02 Orthopnea 08/12/2010 DWIGHT FAIRCHILD, APRIL A 303.03 Acute Alcoholic Intoxication In Alcoholism In Remission 08/12/2010 DWIGHT FAIRCHILD, APRIL A 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 08/12/2010 DWIGHT FAIRCHILD, APRIL A 782.3 Edema 08/12/2010 DWIGHT FAIRCHILD, APRIL A 786.02 Orthopnea 08/12/2010 DWIGHT FAIRCHILD, APRIL A 303.03 Acute Alcoholic Intoxication In Alcoholism In Remission 08/12/2010 DWIGHT FAIRCHILD APRIL A 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 08/12/2010 DWIGHT FAIRCHILD, APRIL A 782.3 Edema 08/12/2010 DWIGHT FAIRCHILD APRIL A 786.02 Orthopnea 08/12/2010 BALDERRAMA DO, BERRY K 303.03 Acute Alcoholic Intoxication In Alcoholism In Remission 08/12/2010 BALDERRAMA DO, BERRY K 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 08/12/2010 BALDERRAMA DO, BERRY K 782.3 Edema 08/12/2010 BALDERRAMA DO, BERRY K 786.02 Orthopnea 08/12/2010 BALDERRAMA DO, BERRY K 303.03 Acute Alcoholic Intoxication In Alcoholism In Remission 08/12/2010 BALDERRAMA DO, BERRY K 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 08/12/2010 BALDERRAMA DO, BERRY K 782.3 Edema 08/12/2010 BALDERRAMA DO, BERRY K 786.02 Orthopnea 08/12/2010 HUMA LOZOYA MD 303.03 Acute Alcoholic Intoxication In Alcoholism In Remission 08/12/2010 HUMA LOZOYA MD 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 08/12/2010 HUMA LOZOYA MD 782.3 Edema 08/12/2010 HUMA LOZOYA MD 786.02 Orthopnea 08/12/2010 HUMA LOZOYA MD 303.03 Acute Alcoholic Intoxication In Alcoholism In Remission 08/12/2010 HUMA LOZOYA MD 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 08/12/2010 HUMA LOZOYA MD 782.3 Edema 08/12/2010 HUMA LOZOYA MD 786.02 Orthopnea 08/12/2010 ADDIS SPRINGER APRN A 303.03 Acute Alcoholic Intoxication In Alcoholism In Remission 08/12/2010 ADDIS SPRINGER APRN 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 08/12/2010 ADDIS SPRINGER APRN 782.3 Edema 08/12/2010 ADDIS SPRINGER APRN 786.02 Orthopnea 08/12/2010 HUMA LOZOYA MD 303.03 Acute Alcoholic Intoxication In Alcoholism In Remission 08/12/2010 HUMA LOZOYA MD 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 08/12/2010 HUMA LOZOYA MD 782.3 Edema 08/12/2010 HUMA LOZOYA MD 786.02 Orthopnea 08/12/2010 HUMA LOZOYA MD 303.03 Acute Alcoholic Intoxication In Alcoholism In Remission 08/12/2010 HUMA LOZOYA MD 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 08/12/2010 HUMA LOZOYA MD 782.3 Edema 08/12/2010 HUMA LOZOYA MD 786.02 Orthopnea 08/12/2010 303.03 Acute Alcoholic Intoxication In Alcoholism In Remission 08/12/2010 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 08/12/2010 782.3 Edema 08/12/2010 786.02 Orthopnea 08/12/2010 HUMA LOZOYA MD 303.03 Acute Alcoholic Intoxication In Alcoholism In Remission 08/12/2010 HUMA LOZOYA MD 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 08/12/2010 HUMA LOZOYA MD 782.3 Edema 08/12/2010 HUMA LOZOYA MD 786.02 Orthopnea 08/15/2010 HUMA LOZOYA MD 790.09 OTHER ABNORMALITY OF RED BLOOD CELLS 08/15/2010 BALDERRAMA DO BERRY K 790.09 OTHER ABNORMALITY OF RED BLOOD CELLS 08/15/2010 JEOVANNY BALDERRAMA DOA K 790.09 OTHER ABNORMALITY OF RED BLOOD CELLS 08/15/2010 HUMA LOZOYA MD 790.09 OTHER ABNORMALITY OF RED BLOOD CELLS 08/15/2010 790.09 OTHER ABNORMALITY OF RED BLOOD CELLS 08/15/2010 HUMA LOZOYA MD 790.09 OTHER ABNORMALITY OF RED BLOOD CELLS 08/15/2010 HUMA LOZOYA MD 790.09 OTHER ABNORMALITY OF RED BLOOD CELLS 08/15/2010 HUMA LOZOYA MD 790.09 OTHER ABNORMALITY OF RED BLOOD CELLS 08/15/2010 HUMA LOZOYA MD 790.09 OTHER ABNORMALITY OF RED BLOOD CELLS 08/15/2010 HUMA LOZOYA MD 790.09 OTHER ABNORMALITY OF RED BLOOD CELLS 08/15/2010 DWIGHTJI Tanner APRNIDI A 790.09 OTHER ABNORMALITY OF RED BLOOD CELLS 08/15/2010 APRIL QUINTANILLA APRN A 790.09 OTHER ABNORMALITY OF RED BLOOD CELLS 08/15/2010 BALDERRAMA DO BERRY K 790.09 OTHER ABNORMALITY OF RED BLOOD CELLS 08/15/2010 BALDERRAMA DO BERRY K 790.09 OTHER ABNORMALITY OF RED BLOOD CELLS 08/15/2010 HUMA LOZOYA MD 790.09 OTHER ABNORMALITY OF RED BLOOD CELLS 08/15/2010 HUAM LOZOYA MD 790.09 OTHER ABNORMALITY OF RED BLOOD CELLS 08/15/2010 ADDIS SPRINGER APRN 790.09 OTHER ABNORMALITY OF RED BLOOD CELLS 08/15/2010 HUMA LOZOYA MD 790.09 OTHER ABNORMALITY OF RED BLOOD CELLS 08/15/2010 HUMA LOZOYA MD 790.09 OTHER ABNORMALITY OF RED BLOOD CELLS 08/15/2010 790.09 OTHER ABNORMALITY OF RED BLOOD CELLS 08/15/2010 HUMA LOZOYA MD 790.09 OTHER ABNORMALITY OF RED BLOOD CELLS 08/20/2010 HUMA LOZOYA MD 300.00 ANXIETY STATE UNSPECIFIED 08/20/2010 BERRY BALDERRAMA DO 300.00 ANXIETY STATE UNSPECIFIED 08/20/2010 BERRY BALDERRAMA DO K 300.00 ANXIETY STATE UNSPECIFIED 08/20/2010 HUMA LOZOYA MD 300.00 ANXIETY STATE UNSPECIFIED 08/20/2010 300.00 ANXIETY STATE UNSPECIFIED 08/20/2010 HUMA LOZOYA MD 300.00 ANXIETY STATE UNSPECIFIED 08/20/2010 HUMA LOZOYA MD 300.00 ANXIETY STATE UNSPECIFIED 08/20/2010 HUMA LOZOYA MD 300.00 ANXIETY STATE UNSPECIFIED 08/20/2010 HUMA LOZOYA MD 300.00 ANXIETY STATE UNSPECIFIED 08/20/2010 HUMA LOZOYA MD 300.00 ANXIETY STATE UNSPECIFIED 08/20/2010 APRIL QUINTANILLA APRN A 300.00 ANXIETY STATE UNSPECIFIED 08/20/2010 APRIL QUINTANILLA APRN A 300.00 ANXIETY STATE UNSPECIFIED 08/20/2010 BERRY BALDERRAMA DO K 300.00 ANXIETY STATE UNSPECIFIED 08/20/2010 BERRY BALDERRAMA DO K 300.00 ANXIETY STATE UNSPECIFIED 08/20/2010 HUMA LOZOYA MD 300.00 ANXIETY STATE UNSPECIFIED 08/20/2010 HUMA LOZOYA MD 300.00 ANXIETY STATE UNSPECIFIED 08/20/2010 ADDIS SPRINGER APRN A 300.00 ANXIETY STATE UNSPECIFIED 08/20/2010 HUMA LOZOYA MD 300.00 ANXIETY STATE UNSPECIFIED 08/20/2010 HUMA LOZOYA MD 300.00 ANXIETY STATE UNSPECIFIED 08/20/2010 300.00 ANXIETY STATE UNSPECIFIED 08/20/2010 HUMA LOZOYA MD 300.00 ANXIETY STATE UNSPECIFIED 12/11/2010 DEVORA PINEDO, HUMA 724.5 BACKACHE UNSPECIFIED 12/11/2010 BALDERRAMA BERRY LEDESMA 724.5 BACKACHE UNSPECIFIED 12/11/2010 BALDERRAMA DO, BERRY K 724.5 BACKACHE UNSPECIFIED 12/11/2010 DEVORA PINEDO, HUMA 724.5 BACKACHE UNSPECIFIED 12/11/2010 724.5 BACKACHE UNSPECIFIED 12/11/2010 DEVORA PINEDO, HUMA 724.5 BACKACHE UNSPECIFIED 12/11/2010 DEVORA PINEDO, HUMA 724.5 BACKACHE UNSPECIFIED 12/11/2010 DEVORA PINEDO, HUMA 724.5 BACKACHE UNSPECIFIED 12/11/2010 DEVORA PINEDO, HUMA 724.5 BACKACHE UNSPECIFIED 12/11/2010 DEVORA PINEDO, HUMA 724.5 BACKACHE UNSPECIFIED 12/11/2010 DWIGHT FAIRCHILD, APRIL A 724.5 BACKACHE UNSPECIFIED 12/11/2010 APRIL QUINTANILLA APRN A 724.5 BACKACHE UNSPECIFIED 12/11/2010 BALDERRAMA DO, BERRY K 724.5 BACKACHE UNSPECIFIED 12/11/2010 BALDERRAMA , BERRY K 724.5 BACKACHE UNSPECIFIED 12/11/2010 DEVORA PINEDO, HUMA 724.5 BACKACHE UNSPECIFIED 12/11/2010 DEVORA PINEDO, HUMA 724.5 BACKACHE UNSPECIFIED 12/11/2010 ADDIS SPRINGER APRN A 724.5 BACKACHE UNSPECIFIED 12/11/2010 DEVORA PINEDO, HUMA 724.5 BACKACHE UNSPECIFIED 12/11/2010 DEVORA PINEDO, HUMA 724.5 BACKACHE UNSPECIFIED 12/11/2010 724.5 BACKACHE UNSPECIFIED 12/11/2010 DEVORA PINEDO, HUMA 724.5 BACKACHE UNSPECIFIED 05/05/2011 HUMA LOZOYA MD 780.79 OTHER MALAISE AND FATIGUE 05/05/2011 BERRY BALDERRAMA DO 780.79 OTHER MALAISE AND FATIGUE 05/05/2011 BERRY BALDERRAMA DO 780.79 OTHER MALAISE AND FATIGUE 05/05/2011 HUMA LOZOYA MD 780.79 OTHER MALAISE AND FATIGUE 05/05/2011 780.79 OTHER MALAISE AND FATIGUE 05/05/2011 HUMA LOZOYA MD 780.79 OTHER MALAISE AND FATIGUE 05/05/2011 HUMA LOZOYA MD 780.79 OTHER MALAISE AND FATIGUE 05/05/2011 HUMA LOZOYA MD 780.79 OTHER MALAISE AND FATIGUE 05/05/2011 HUMA LOZOYA MD 780.79 OTHER MALAISE AND FATIGUE 05/05/2011 HUMA LOZOYA MD 780.79 OTHER MALAISE AND FATIGUE 05/05/2011 DWIGHTAPRIL Tanner APRN A 780.79 OTHER MALAISE AND FATIGUE 05/05/2011 APRIL QUINTANILLA APRN A 780.79 OTHER MALAISE AND FATIGUE 05/05/2011 BERRY BALDERRAMA DO 780.79 OTHER MALAISE AND FATIGUE 05/05/2011 BERRY BALDERRAMA DO 780.79 OTHER MALAISE AND FATIGUE 05/05/2011 HUMA LOZOYA MD 780.79 OTHER MALAISE AND FATIGUE 05/05/2011 HUMA LOZOYA MD 780.79 OTHER MALAISE AND FATIGUE 05/05/2011 ADDIS SPRINGER APRN 780.79 OTHER MALAISE AND FATIGUE 05/05/2011 HUMA LOZOYA MD 780.79 OTHER MALAISE AND FATIGUE 05/05/2011 HUMA LOZOYA MD 780.79 OTHER MALAISE AND FATIGUE 05/05/2011 780.79 OTHER MALAISE AND FATIGUE 05/05/2011 HUMA LOZOYA MD 780.79 OTHER MALAISE AND FATIGUE 10/02/2011 HUMA LOZOYA MD E905.1 VENOMOUS SPIDERS CAUSING POISONING AND TOXIC REACTIONS 10/02/2011 BERRY BALDERRAMA DO E905.1 VENOMOUS SPIDERS CAUSING POISONING AND TOXIC REACTIONS 10/02/2011 BERRY BALDERRAMA DO E905.1 VENOMOUS SPIDERS CAUSING POISONING AND TOXIC REACTIONS 10/02/2011 HUMA LOZOYA MD E905.1 VENOMOUS SPIDERS CAUSING POISONING AND TOXIC REACTIONS 10/02/2011 E905.1 VENOMOUS SPIDERS CAUSING POISONING AND TOXIC REACTIONS 10/02/2011 HUMA LOZOYA MD E905.1 VENOMOUS SPIDERS CAUSING POISONING AND TOXIC REACTIONS 10/02/2011 HUMA LOZOYA MD E905.1 VENOMOUS SPIDERS CAUSING POISONING AND TOXIC REACTIONS 10/02/2011 HUMA LOZOYA MD E905.1 VENOMOUS SPIDERS CAUSING POISONING AND TOXIC REACTIONS 10/02/2011 HUMA LOZOYA MD E905.1 VENOMOUS SPIDERS CAUSING POISONING AND TOXIC REACTIONS 10/02/2011 HUMA LOZOYA MD E905.1 VENOMOUS SPIDERS CAUSING POISONING AND TOXIC REACTIONS 10/02/2011 APRIL QUINTANILLA APRN A E905.1 VENOMOUS SPIDERS CAUSING POISONING AND TOXIC REACTIONS 10/02/2011 APRIL QUINTANILLA APRN A E905.1 VENOMOUS SPIDERS CAUSING POISONING AND TOXIC REACTIONS 10/02/2011 BERRY BALDERRAMA DO E905.1 VENOMOUS SPIDERS CAUSING POISONING AND TOXIC REACTIONS 10/02/2011 BERRY BALDERRAMA DO E905.1 VENOMOUS SPIDERS CAUSING POISONING AND TOXIC REACTIONS 10/02/2011 HUMA LOZOYA MD E905.1 VENOMOUS SPIDERS CAUSING POISONING AND TOXIC REACTIONS 10/02/2011 HUMA LOZOYA MD E905.1 VENOMOUS SPIDERS CAUSING POISONING AND TOXIC REACTIONS 10/02/2011 ADDIS SPRINGER APRN E905.1 VENOMOUS SPIDERS CAUSING POISONING AND TOXIC REACTIONS 10/02/2011 HUMA LOZOYA MD E905.1 VENOMOUS SPIDERS CAUSING POISONING AND TOXIC REACTIONS 10/02/2011 HUMA LOZOYA MD E905.1 VENOMOUS SPIDERS CAUSING POISONING AND TOXIC REACTIONS 10/02/2011 E905.1 VENOMOUS SPIDERS CAUSING POISONING AND TOXIC REACTIONS 10/02/2011 HUMA LOZOYA MD E905.1 VENOMOUS SPIDERS CAUSING POISONING AND TOXIC REACTIONS 02/19/2012 BERRY BALDERRAMA DO 627.2 MENOPAUSAL SX 02/19/2012 BERRY BALDERRAMA DO V76.10 BREAST CANCER SCREENING 02/19/2012 BERRY BALDERRAMA DO V76.2 CERVICAL CANCER SCREENING (PAP SMEAR) 02/19/2012 BERRY BALDERRAMA DO 627.2 MENOPAUSAL SX 02/19/2012 BERRY BALDERRAMA DO V76.10 BREAST CANCER SCREENING 02/19/2012 BERRY BALDERRAMA DO V76.2 CERVICAL CANCER SCREENING (PAP SMEAR) 02/19/2012 HUMA LOZOYA MD 627.2 MENOPAUSAL SX 02/19/2012 HUMA LOZOYA MD V76.10 BREAST CANCER SCREENING 02/19/2012 HUMA LOZOYA MD V76.2 CERVICAL CANCER SCREENING (PAP SMEAR) 02/19/2012 627.2 MENOPAUSAL SX 02/19/2012 V76.10 BREAST CANCER SCREENING 02/19/2012 V76.2 CERVICAL CANCER SCREENING (PAP SMEAR) 02/19/2012 HUMA LOZOYA MD 627.2 MENOPAUSAL SX 02/19/2012 HUMA LOZOYA MD V76.10 BREAST CANCER SCREENING 02/19/2012 HUMA LOZOYA MD V76.2 CERVICAL CANCER SCREENING (PAP SMEAR) 02/19/2012 HUMA LOZOYA MD 627.2 MENOPAUSAL SX 02/19/2012 HUMA LOZOYA MD V76.10 BREAST CANCER SCREENING 02/19/2012 HUMA LOZOYA MD V76.2 CERVICAL CANCER SCREENING (PAP SMEAR) 02/19/2012 HUMA LOZOYA MD 627.2 MENOPAUSAL SX 02/19/2012 HUMA LOZOYA MD V76.10 BREAST CANCER SCREENING 02/19/2012 HUMA LOZOYA MD V76.2 CERVICAL CANCER SCREENING (PAP SMEAR) 02/19/2012 HUMA LOZOYA MD 627.2 MENOPAUSAL SX 02/19/2012 HUMA LOZOYA MD V76.10 BREAST CANCER SCREENING 02/19/2012 HUMA LOZOYA MD V76.2 CERVICAL CANCER SCREENING (PAP SMEAR) 02/19/2012 HUMA LOZOYA MD 627.2 MENOPAUSAL SX 02/19/2012 HUMA LOZOYA MD V76.10 BREAST CANCER SCREENING 02/19/2012 HUMA LOZOYA MD V76.2 CERVICAL CANCER SCREENING (PAP SMEAR) 02/19/2012 APRIL QUINTANILLA APRN 627.2 MENOPAUSAL SX 02/19/2012 APRIL QUINTANILLA APRN V76.10 BREAST CANCER SCREENING 02/19/2012 APRIL QUINTANILLA APRN V76.2 CERVICAL CANCER SCREENING (PAP SMEAR) 02/19/2012 APRIL QUINTANILLA APRN 627.2 MENOPAUSAL SX 02/19/2012 APRIL QUINTANILLA APRN A V76.10 BREAST CANCER SCREENING 02/19/2012 APRIL QUINTANILLA APRN V76.2 CERVICAL CANCER SCREENING (PAP SMEAR) 02/19/2012 BERRY BALDERRAMA DO 627.2 MENOPAUSAL SX 02/19/2012 BERRY BALDERRAMA DO V76.10 BREAST CANCER SCREENING 02/19/2012 BERRY BALDERRAMA DO V76.2 CERVICAL CANCER SCREENING (PAP SMEAR) 02/19/2012 BERRY BALDERRAMA DO 627.2 MENOPAUSAL SX 02/19/2012 BERRY BALDERRAMA DO V76.10 BREAST CANCER SCREENING 02/19/2012 BERRY BALDERRAMA DO V76.2 CERVICAL CANCER SCREENING (PAP SMEAR) 02/19/2012 HUMA LOZOYA MD 627.2 MENOPAUSAL SX 02/19/2012 HUMA LOZOYA MD V76.10 BREAST CANCER SCREENING 02/19/2012 HUMA LOZOYA MD V76.2 CERVICAL CANCER SCREENING (PAP SMEAR) 02/19/2012 HUMA LOZOYA MD 627.2 MENOPAUSAL SX 02/19/2012 HUMA LOZOYA MD V76.10 BREAST CANCER SCREENING 02/19/2012 HUMA LOZOYA MD V76.2 CERVICAL CANCER SCREENING (PAP SMEAR) 02/19/2012 ADDIS SPRINGER APRN 627.2 MENOPAUSAL SX 02/19/2012 ADDIS SPRINGER APRN V76.10 BREAST CANCER SCREENING 02/19/2012 ADDIS SPRINGER APRN V76.2 CERVICAL CANCER SCREENING (PAP SMEAR) 02/19/2012 HUMA LOZOYA MD 627.2 MENOPAUSAL SX 02/19/2012 HUMA LOZOYA MD V76.10 BREAST CANCER SCREENING 02/19/2012 HUMA LOZOYA MD V76.2 CERVICAL CANCER SCREENING (PAP SMEAR) 02/19/2012 HUMA LOZOYA MD 627.2 MENOPAUSAL SX 02/19/2012 HUMA LOZOYA MD V76.10 BREAST CANCER SCREENING 02/19/2012 HUMA LOZOYA MD V76.2 CERVICAL CANCER SCREENING (PAP SMEAR) 02/19/2012 HUMA LOZOYA MD 627.2 MENOPAUSAL SX 02/19/2012 HUMA LOZOYA MD V76.10 BREAST CANCER SCREENING 02/19/2012 HUMA LOZOYA MD V76.2 CERVICAL CANCER SCREENING (PAP SMEAR) 03/28/2012 HUMA LOZOYA MD 272.4 OTHER AND UNSPECIFIED HYPERLIPIDEMIA 03/28/2012 272.4 OTHER AND UNSPECIFIED HYPERLIPIDEMIA 03/28/2012 HUMA LOZOYA MD 272.4 OTHER AND UNSPECIFIED HYPERLIPIDEMIA 03/28/2012 HUMA LOZOYA MD 272.4 OTHER AND UNSPECIFIED HYPERLIPIDEMIA 03/28/2012 HUMA LOZOYA MD 272.4 OTHER AND UNSPECIFIED HYPERLIPIDEMIA 03/28/2012 HUMA LOZOYA MD 272.4 OTHER AND UNSPECIFIED HYPERLIPIDEMIA 03/28/2012 HUMA LOZOYA MD 272.4 OTHER AND UNSPECIFIED HYPERLIPIDEMIA 03/28/2012 APRIL QUINTANILLA APRN A 272.4 OTHER AND UNSPECIFIED HYPERLIPIDEMIA 03/28/2012 APRIL QUINTANILLA APRN A 272.4 OTHER AND UNSPECIFIED HYPERLIPIDEMIA 03/28/2012 BERRY BALDERRAMA DO 272.4 OTHER AND UNSPECIFIED HYPERLIPIDEMIA 03/28/2012 BERRY BALDERRAMA DO K 272.4 OTHER AND UNSPECIFIED HYPERLIPIDEMIA 03/28/2012 HUMA LOZOYA MD 272.4 OTHER AND UNSPECIFIED HYPERLIPIDEMIA 03/28/2012 HUMA LOZOYA MD 272.4 OTHER AND UNSPECIFIED HYPERLIPIDEMIA 03/28/2012 ADDIS SPRINGER APRN 272.4 OTHER AND UNSPECIFIED HYPERLIPIDEMIA 03/28/2012 HUMA LOZOYA MD 272.4 OTHER AND UNSPECIFIED HYPERLIPIDEMIA 03/28/2012 HUMA LOZOYA MD 272.4 OTHER AND UNSPECIFIED HYPERLIPIDEMIA 03/28/2012 HUMA LOZOYA MD 272.4 OTHER AND UNSPECIFIED HYPERLIPIDEMIA 07/20/2012 FRANCISCO ACEVEDO DO Ot 812.03 FX GR TUBEROS HUMERUS-CL 07/20/2012 FRANCISCO ACEVEDO DO Ot 959.2 SHLDR/UPPER ARM INJ NOS 07/20/2012 FRANCISCO ACEVEDO DO Ot E000.8 OTHER EXTERNAL CAUSE STATUS 07/20/2012 FRANCISCO ACEVEDO DO Ot E849.0 ACCIDENT IN HOME 07/20/2012 FRANCISCO ACEVEDO DO Ot E880.9 FALL ON STAIR/STEP NEC 09/29/2012 HUMA LOZOYA MD 728.85 SPASM OF MUSCLE 09/29/2012 HUMA LOZOYA MD 728.85 SPASM OF MUSCLE 09/29/2012 HUMA LOZOYA MD 728.85 SPASM OF MUSCLE 09/29/2012 HUMA LOZOYA MD 728.85 SPASM OF MUSCLE 09/29/2012 HUMA LOZOYA MD 728.85 SPASM OF MUSCLE 09/29/2012 APRLI QUINTANILLA APRN 728.85 SPASM OF MUSCLE 09/29/2012 APRIL QUINTANILLA APRN 728.85 SPASM OF MUSCLE 09/29/2012 BERRY BALDERRAMA DO 728.85 SPASM OF MUSCLE 09/29/2012 BERRY BALDERRAMA DO 728.85 SPASM OF MUSCLE 09/29/2012 HUMA LOZOYA MD 728.85 SPASM OF MUSCLE 09/29/2012 HUMA LOZOYA MD 728.85 SPASM OF MUSCLE 09/29/2012 ADDIS SPRINGER APRN 728.85 SPASM OF MUSCLE 09/29/2012 HUMA LOZOYA MD 728.85 SPASM OF MUSCLE 09/29/2012 HUMA LOZOYA MD 728.85 SPASM OF MUSCLE 09/29/2012 HUMA LOZOYA MD 728.85 SPASM OF MUSCLE 12/19/2012 HUMA LOZOYA MD 719.41 PAIN IN JOINT INVOLVING SHOULDER REGION 12/19/2012 HUMA LOZOYA MD 71Olivia.41 PAIN IN JOINT INVOLVING SHOULDER REGION 12/19/2012 HUMA LOZOYA MD 719.41 PAIN IN JOINT INVOLVING SHOULDER REGION 12/19/2012 HUMA LOZOYA MD 71Olivia.41 PAIN IN JOINT INVOLVING SHOULDER REGION 12/19/2012 APRIL QUINTANILLA APRN 719.41 PAIN IN JOINT INVOLVING SHOULDER REGION 12/19/2012 APRIL QUINTANILLA APRN 719.41 PAIN IN JOINT INVOLVING SHOULDER REGION 12/19/2012 BERRY BALDERRAMA DO 719.41 PAIN IN JOINT INVOLVING SHOULDER REGION 12/19/2012 BERRY BALDERRAMA DO 719.41 PAIN IN JOINT INVOLVING SHOULDER REGION 12/19/2012 HUMA LOZOYA MD 719.41 PAIN IN JOINT INVOLVING SHOULDER REGION 12/19/2012 HUMA LOZOYA MD 71Olivia.41 PAIN IN JOINT INVOLVING SHOULDER REGION 12/19/2012 ADDIS SPRINGER APRN 719.41 PAIN IN JOINT INVOLVING SHOULDER REGION 12/19/2012 HUMA LOZOYA MD 719.41 PAIN IN JOINT INVOLVING SHOULDER REGION 12/19/2012 HUMA LOZOYA MD 71Olivia.41 PAIN IN JOINT INVOLVING SHOULDER REGION 12/19/2012 HUMA LOZOYA MD.41 PAIN IN JOINT INVOLVING SHOULDER REGION 01/18/2013 HUMA LOZOYA MD V58.69 MEDICATION HIGH RISK 01/18/2013 HUMA LOZOYA MD V58.69 MEDICATION HIGH RISK 01/18/2013 HUMA LOZOYA MD V58.69 MEDICATION HIGH RISK 01/18/2013 APRIL QUINTANILLA APRN A V58.69 MEDICATION HIGH RISK 01/18/2013 JI QUINTANILLA APRNIDI A V58.69 MEDICATION HIGH RISK 01/18/2013 BALDERRAMA DO, BERRY K V58.69 MEDICATION HIGH RISK 01/18/2013 BALDERRAMA DO, BERRY K V58.69 MEDICATION HIGH RISK 01/18/2013 DEVORA PINEDO, HUMA V58.69 MEDICATION HIGH RISK 01/18/2013 DEVORA PINEDO, HUMA V58.69 MEDICATION HIGH RISK 01/18/2013 ADDIS SPRINGER APRN V58.69 MEDICATION HIGH RISK 01/18/2013 DEVORA PINEDO, HUMA V58.69 MEDICATION HIGH RISK 01/18/2013 DEVORA PINEDO, HUMA V58.69 MEDICATION HIGH RISK 01/18/2013 DEVORA PINEDO, HUMA V58.69 MEDICATION HIGH RISK 02/15/2013 HUMA LOZOYA MD V76.11 SCREENING MAMMOGRAM FOR HIGH-RISK PATIENT 02/15/2013 HUMA LOZOYA MD V76.11 SCREENING MAMMOGRAM FOR HIGH-RISK PATIENT 02/15/2013 HUMA LOZOYA MD V76.11 SCREENING MAMMOGRAM FOR HIGH-RISK PATIENT 02/15/2013 APRIL QUINTANILLA APRN A V76.11 SCREENING MAMMOGRAM FOR HIGH-RISK PATIENT 02/15/2013 APRIL QUINTANILLA APRN V76.11 SCREENING MAMMOGRAM FOR HIGH-RISK PATIENT 02/15/2013 TACOS DOJEOVANNYA K V76.11 SCREENING MAMMOGRAM FOR HIGH-RISK PATIENT 02/15/2013 TACOS DOJEOVANNYA K V76.11 SCREENING MAMMOGRAM FOR HIGH-RISK PATIENT 02/15/2013 HUMA LOZOYA MD V76.11 SCREENING MAMMOGRAM FOR HIGH-RISK PATIENT 02/15/2013 HUMA LOZOYA MD V76.11 SCREENING MAMMOGRAM FOR HIGH-RISK PATIENT 02/15/2013 ADDIS SPRINGER APRN V76.11 SCREENING MAMMOGRAM FOR HIGH-RISK PATIENT 02/15/2013 HUMA LOZOYA MD V76.11 SCREENING MAMMOGRAM FOR HIGH-RISK PATIENT 02/15/2013 HUMA LOZOYA MD V76.11 SCREENING MAMMOGRAM FOR HIGH-RISK PATIENT 02/15/2013 HUMA LOZOYA MD V76.11 SCREENING MAMMOGRAM FOR HIGH-RISK PATIENT 04/17/2013 JI QUINTANILLA APRNIDI A V65.42 COUNSELING - SMOKING CESSATION 04/17/2013 DWIGHT FAIRCHILDAPRIL A V65.49 OTHER SPECIFIED COUNSELING 04/17/2013 DWIGHT ZEEAPRIL Tanner A V76.10 BREAST CANCER SCREENING 04/17/2013 DWIGHT FAIRCHILDAPRIL A V76.51 COLON CANCER SCREENING 04/17/2013 DWIGHT FAIRCHILD APRIL A V82.81 SPECIAL SCREENING FOR OSTEOPOROSIS 04/17/2013 DWIGHT ZEEAPRIL Tanner A V65.42 COUNSELING - SMOKING CESSATION 04/17/2013 DWIGHT FAIRCHILDAPRIL A V65.49 OTHER SPECIFIED COUNSELING 04/17/2013 DWIGHT FAIRCHILD APRIL A V76.10 BREAST CANCER SCREENING 04/17/2013 DWIGHT FAIRCHILD APRIL A V76.51 COLON CANCER SCREENING 04/17/2013 DWIGHT FAIRCHILDAPRIL A V82.81 SPECIAL SCREENING FOR OSTEOPOROSIS 04/17/2013 BALDERRAMA DO BERRY K V65.42 COUNSELING - SMOKING CESSATION 04/17/2013 BALDERRAMA DO BERRY K V65.49 OTHER SPECIFIED COUNSELING 04/17/2013 BALDERRAMA DO, BERRY K V76.10 BREAST CANCER SCREENING 04/17/2013 BALDERRAMA DO BERRY K V76.51 COLON CANCER SCREENING 04/17/2013 BALDERRAMA DO BERRY K V82.81 SPECIAL SCREENING FOR OSTEOPOROSIS 04/17/2013 BALDERRAMA DO, BERRY K V65.42 COUNSELING - SMOKING CESSATION 04/17/2013 BALDERRAMA DO BERRY K V65.49 OTHER SPECIFIED COUNSELING 04/17/2013 BALDERRAMA DO, BERRY K V76.10 BREAST CANCER SCREENING 04/17/2013 BALDERRAMA DO BERRY K V76.51 COLON CANCER SCREENING 04/17/2013 BALDERRAMA DO BERRY K V82.81 SPECIAL SCREENING FOR OSTEOPOROSIS 04/17/2013 HUMA LOZOYA MD V65.42 COUNSELING - SMOKING CESSATION 04/17/2013 HUMA LOZOYA MD V65.49 OTHER SPECIFIED COUNSELING 04/17/2013 HUMA LOZOYA MD V76.10 BREAST CANCER SCREENING 04/17/2013 HUMA LOZOYA MD V76.51 COLON CANCER SCREENING 04/17/2013 HUMA LOZOYA MD V82.81 SPECIAL SCREENING FOR OSTEOPOROSIS 04/17/2013 HUMA LOZOYA MD V65.42 COUNSELING - SMOKING CESSATION 04/17/2013 HUMA LOZOYA MD V65.49 OTHER SPECIFIED COUNSELING 04/17/2013 HUMA LOZOYA MD V76.10 BREAST CANCER SCREENING 04/17/2013 HUMA LOZOYA MD V76.51 COLON CANCER SCREENING 04/17/2013 HUMA LOZOYA MD V82.81 SPECIAL SCREENING FOR OSTEOPOROSIS 04/17/2013 ADDIS SPRINGER APRN V65.42 COUNSELING - SMOKING CESSATION 04/17/2013 ADDIS SPRINGER APRN V65.49 OTHER SPECIFIED COUNSELING 04/17/2013 ADDIS SPRINGER APRN V76.10 BREAST CANCER SCREENING 04/17/2013 ADDIS SPRINGER APRN V76.51 COLON CANCER SCREENING 04/17/2013 ADDIS SPRINGER APRN V82.81 SPECIAL SCREENING FOR OSTEOPOROSIS 04/17/2013 HUMA LOZOYA MD V65.42 COUNSELING - SMOKING CESSATION 04/17/2013 HUMA LOZOYA MD V65.49 OTHER SPECIFIED COUNSELING 04/17/2013 HUMA LOZOYA MD V76.10 BREAST CANCER SCREENING 04/17/2013 HUMA LOZOYA MD V76.51 COLON CANCER SCREENING 04/17/2013 HUMA LOZOYA MD V82.81 SPECIAL SCREENING FOR OSTEOPOROSIS 04/17/2013 HUMA LOZOYA MD V65.42 COUNSELING - SMOKING CESSATION 04/17/2013 HUMA LOZOYA MD V65.49 OTHER SPECIFIED COUNSELING 04/17/2013 HUMA LOZOYA MD V76.10 BREAST CANCER SCREENING 04/17/2013 HUMA LOZOYA MD V76.51 COLON CANCER SCREENING 04/17/2013 HUMA LOZOYA MD V82.81 SPECIAL SCREENING FOR OSTEOPOROSIS 04/17/2013 HUMA LOZOYA MD V65.42 COUNSELING - SMOKING CESSATION 04/17/2013 HUMA LOZOYA MD V65.49 OTHER SPECIFIED COUNSELING 04/17/2013 HUMA LOZOYA MD V76.10 BREAST CANCER SCREENING 04/17/2013 HUMA LOZOYA MD V76.51 COLON CANCER SCREENING 04/17/2013 HUMA LOZOYA MD V82.81 SPECIAL SCREENING FOR OSTEOPOROSIS 06/02/2013 BALDERRAMA DOBERRY K 723.1 CERVICALGIA 06/02/2013 BERRY BALDERRAMA DO E880.9 ACCIDENTAL FALL ON OR FROM OTHER STAIRS OR STEPS 06/02/2013 BERRY BALDERRAMA DO 723.1 CERVICALGIA 06/02/2013 BERRY BALDERRAMA DO E880.9 ACCIDENTAL FALL ON OR FROM OTHER STAIRS OR STEPS 06/02/2013 HUMA LOZOYA MD 723.1 CERVICALGIA 06/02/2013 HUMA LOZOYA MD E880.9 ACCIDENTAL FALL ON OR FROM OTHER STAIRS OR STEPS 06/02/2013 HUMA LOZOYA MD 723.1 CERVICALGIA 06/02/2013 HUMA LOZOYA MD E880.9 ACCIDENTAL FALL ON OR FROM OTHER STAIRS OR STEPS 06/02/2013 DADIS SPRINGER APRN 723.1 CERVICALGIA 06/02/2013 ADDIS SPRINGER APRN E880.9 ACCIDENTAL FALL ON OR FROM OTHER STAIRS OR STEPS 06/02/2013 HUMA LOZOYA MD 723.1 CERVICALGIA 06/02/2013 HUMA LOZOYA MD E880.9 ACCIDENTAL FALL ON OR FROM OTHER STAIRS OR STEPS 06/02/2013 HUMA LOZOYA MD 723.1 CERVICALGIA 06/02/2013 HUMA LOZOYA MD E880.9 ACCIDENTAL FALL ON OR FROM OTHER STAIRS OR STEPS 06/02/2013 HUMA LOZOYA MD 723.1 CERVICALGIA 06/02/2013 HUMA LOZOYA MD E880.9 ACCIDENTAL FALL ON OR FROM OTHER STAIRS OR STEPS 09/18/2013 HUMA LOZOYA MD 466.0 ACUTE BRONCHITIS 09/18/2013 ADDIS SPRINGER APRN 466.0 ACUTE BRONCHITIS 09/18/2013 HUMA LOZOYA MD 466.0 ACUTE BRONCHITIS 09/18/2013 HUMA LOZOYA MD 466.0 ACUTE BRONCHITIS 09/18/2013 HUMA LOZOYA MD 466.0 ACUTE BRONCHITIS 10/03/2013 BERRY BALDERRAMA DO Ot 300.00 ANXIETY STATE NOS 10/03/2013 BERRY BALDERRAMA DO Ot 303.01 AC ALCOHOL INTOX-CONTIN 10/03/2013 BERRY BALDERRAMA DO Ot 305.1 TOBACCO USE DISORDER 10/03/2013 BERRY BALDERRAMA DO Ot 311 DEPRESSIVE DISORDER NEC 10/03/2013 BERRY BALDERRAMA DO Ot 312.89 OTHER SPECIFIED CONDUCT DISORDER, NEC 10/03/2013 BERRY BALDERRAMA DO Ot 338.29 OTHER CHRONIC PAIN 10/03/2013 BALDERRAMA DO, BERRY K Ot 784.0 HEADACHE 10/03/2013 BERRY BALDERRAMA DO Ot V03.82 PROPHYLACTIC VACC AGAINST STREPTOCOCCUS 10/03/2013 TACOS LEDESMA BERRY Zapata Ot V62.84 SUICIDAL IDEATION 10/03/2013 BERRY BALDERRAMA DO Ot V62.85 HOMICIDAL IDEATION 11/20/2013 DANICA ELRNER MD Ot 305.00 ALCOHOL ABUSE-UNSPEC 11/20/2013 DANICA LERNER MD Ot 305.1 TOBACCO USE DISORDER 11/20/2013 DANICA LERNER MD Ot 305.20 CANNABIS ABUSE-UNSPEC 11/20/2013 DANICA LERNER MD Ot 780.97 ALTERED MENTAL STATUS 11/20/2013 DANICA LERNER MD Ot V04.81 ND FOR PROPHYLACTIC VACCIN AND INOCULATI 11/27/2013 HUMA LOZOYA MD 296.7 BIPOLAR I DISORDER MOST RECENT EPISODE (OR CURRENT) UNSPECIFIED 11/27/2013 HUMA LOZOYA MD 296.7 BIPOLAR I DISORDER MOST RECENT EPISODE (OR CURRENT) UNSPECIFIED 11/27/2013 HUMA LOZOYA MD 296.7 BIPOLAR I DISORDER MOST RECENT EPISODE (OR CURRENT) UNSPECIFIED 02/16/2014 HUMA LOZOYA MD V04.81 FLU SHOT 03/16/2014 Ot V76.12 03/16/2014 HUMA LOZOYA MD Ot V76.12 03/16/2014 APRIL QUINTANILLA DRILL RUNNER HELPER Ot 733.90 03/16/2014 APRIL QUINTANILLA A DRILL RUNNER HELPER Ot V65.42 03/16/2014 DWIGHT APRIL A DRILL RUNNER HELPER Ot V65.49 03/16/2014 DWIGHT APRIL A DRILL RUNNER HELPER Ot V76.12 03/16/2014 DWIGHT APRIL A DRILL RUNNER HELPER Ot V76.51 03/16/2014 DWIGHT, APRIL A DRILL RUNNER HELPER Ot V82.81 03/19/2014 HUMA LOZOYA MD V76.10 BREAST CANCER SCREENING 05/04/2015 FINESSE MYO MD Ot A41.9 SEPSIS, UNSPECIFIED ORGANISM 05/04/2015 FINESSE MOY MD Ot F10.21 ALCOHOL DEPENDENCE, IN REMISSION 05/04/2015 FINESSE MOY MD Ot F12.90 CANNABIS USE, UNSPECIFIED, UNCOMPLICATED 05/04/2015 FINESSE MOY MD Ot F17.210 NICOTINE DEPENDENCE, CIGARETTES, UNCOMPL 05/04/2015 FINESSE MOY MD Ot F32.9 MAJOR DEPRESSIVE DISORDER, SINGLE EPISOD 05/04/2015 FINESSE MOY MD Ot F41.9 ANXIETY DISORDER, UNSPECIFIED 05/04/2015 FINESSE MOY MD Ot G47.30 SLEEP APNEA, UNSPECIFIED 05/04/2015 FINESSE MOY MD Ot J18.9 PNEUMONIA, UNSPECIFIED ORGANISM 05/04/2015 FINESSE MOY MD Ot J44.9 CHRONIC OBSTRUCTIVE PULMONARY DISEASE, U 05/04/2015 FINESSE MOY MD Ot R41.82 ALTERED MENTAL STATUS, UNSPECIFIED 05/04/2015 FINESSE MOY MD Ot Z91.14 PATIENT'S OTHER NONCOMPLIANCE WITH MEDIC 03/03/2016 LI LOPEZ APRN Ot J44.9 CHRONIC OBSTRUCTIVE PULMONARY DISEASE, U 03/03/2016 LI LOPEZ APRN Ot S82.401A UNSP FRACTURE OF SHAFT OF RIGHT FIBULA, 03/03/2016 LI LOPEZ APRN Ot S99.911A UNSPECIFIED INJURY OF RIGHT ANKLE, INITI 03/03/2016 LI LOPEZ APRN Ot X58.XXXA EXPOSURE TO OTHER SPECIFIED FACTORS, INI 03/03/2016 LI LOPEZ APRN Ot Y92.[address] IN UNSP NON-INSTITUT (PRIVATE 03/03/2016 LI LOPEZ APRN Ot Y99.8 OTHER EXTERNAL CAUSE STATUS 03/03/2016 LI LOPEZ APRN Ot Z79.82 CARE HOME (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 OF ASPIRIN 03/03/2016 LI LOPEZ APRN Ot Z79.899 OTHER CARE HOME (CURRENT) DRUG THERAPY 03/03/2016 Ot V76.12 OTH SCREEN MAMMO-MALIGN NEOPLASM OF ETIENNE 03/03/2016 DEVORA PINEDO, HUMA Sparks Ot V76.12 OTH SCREEN MAMMO-MALIGN NEOPLASM OF ETIENNE 03/03/2016 APRIL QUINTANILLA DRILL RUNNER HELPER Ot 733.90 BONE CARTILAGE DIS NOS 03/03/2016 APRIL QUINTANILLA DRILL RUNNER HELPER Ot V65.42 COUNSELING ON SUBSTANCE USE AND ABUSE 03/03/2016 APRIL QUINTANILLA DRILL RUNNER HELPER Ot V65.49 OTHER SPECIFIED COUNSELING 03/03/2016 APRIL QUINTANILLA DRILL RUNNER HELPER Ot V76.12 OTH SCREEN MAMMO-MALIGN NEOPLASM OF ETIENNE 03/03/2016 APRIL QUINTANILLA DRILL RUNNER HELPER Ot V76.51 SCREEN MAL NEOP-COLON 03/03/2016 APRIL QUINTANILLA DRILL RUNNER HELPER Ot V82.81 SCREENING FOR OSTEOPOROSIS 03/03/2016 Ot V76.12 OTH SCREEN MAMMO-MALIGN NEOPLASM OF ETIENNE 03/03/2016 HUMA LOZOYA MD Ot V76.12 OTH SCREEN MAMMO-MALIGN NEOPLASM OF ETIENNE 03/03/2016 APRIL QUINTANILLA DRILL RUNNER HELPER Ot 733.90 BONE CARTILAGE DIS NOS 03/03/2016 APRIL QUINTANILLA DRILL RUNNER HELPER Ot V65.42 COUNSELING ON SUBSTANCE USE AND ABUSE 03/03/2016 APRIL QUINTANILLA DRILL RUNNER HELPER Ot V65.49 OTHER SPECIFIED COUNSELING 03/03/2016 APRIL QUINTANILLA DRILL RUNNER HELPER Ot V76.12 OTH SCREEN MAMMO-MALIGN NEOPLASM OF ETIENNE 03/03/2016 APRIL QUINTANILLA DRILL RUNNER HELPER Ot V76.51 SCREEN MAL NEOP-COLON 03/03/2016 APRIL QUINTANILLA DRILL RUNNER HELPER Ot V82.81 SCREENING FOR OSTEOPOROSIS 03/04/2016 LI LOPEZ APRN Ot J44.9 CHRONIC OBSTRUCTIVE PULMONARY DISEASE, U 03/04/2016 LI LOPEZ APRN Ot S82.401A UNSP FRACTURE OF SHAFT OF RIGHT FIBULA, 03/04/2016 LI LOPEZ APRN Ot S99.911A UNSPECIFIED INJURY OF RIGHT ANKLE, INITI 03/04/2016 LI LOPEZ APRN Ot X58.XXXA EXPOSURE TO OTHER SPECIFIED FACTORS, INI 03/04/2016 LI LOPEZ APRN Ot Y92.[address] IN [facility] NON-INSTITUT (PRIVATE 03/04/2016 LI LOPEZ APRN Ot Y99.8 OTHER EXTERNAL CAUSE STATUS 03/04/2016 LI LOPEZ APRN Ot 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 03/04/2016 LI LOPEZ APRN Ot Z79.899 OTHER CARE HOME (CURRENT) DRUG THERAPY 03/05/2016 LI LOPEZ APRN Ot J44.9 CHRONIC OBSTRUCTIVE PULMONARY DISEASE, U 03/05/2016 LI LOPEZ APRN Ot S82.401A UNSP FRACTURE OF SHAFT OF RIGHT FIBULA, 03/05/2016 LI LOPEZ APRN Ot S99.911A UNSPECIFIED INJURY OF RIGHT ANKLE, INITI 03/05/2016 LI LOPEZ APRN Ot X58.XXXA EXPOSURE TO OTHER SPECIFIED FACTORS, INI 03/05/2016 LI LOPEZ APRN Ot Y92.[address] [facility] NON-INSTITUT (PRIVATE 03/05/2016 LI LOPEZ APRN Ot Y99.8 OTHER EXTERNAL CAUSE STATUS 03/05/2016 LI LOPEZ APRN Ot Z79.82 CARE HOME (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 OF ASPIRIN 03/05/2016 LI LOPEZ APRN Ot Z79.899 OTHER COAL CHUTE WORKER (CURRENT) DRUG THERAPY 07/11/2016 MELISSA GARCIA Ot F10.129 ALCOHOL ABUSE WITH INTOXICATION, UNSPECI 07/11/2016 MELISSA GARCIA Ot F17.210 NICOTINE DEPENDENCE, CIGARETTES, UNCOMPL 07/11/2016 MELISSA GARCIA Ot J44.9 CHRONIC OBSTRUCTIVE PULMONARY DISEASE, U 07/11/2016 MELISSA GARCIA Ot Y90.6 BLOOD ALCOHOL LEVEL OF 120-199 MG/100 ML 07/11/2016 MELISSA GARCIA Ot 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 07/11/2016 MELISSA GARCIA Ot Z79.899 OTHER COAL CHUTE WORKER (CURRENT) DRUG THERAPY Procedures Code Description Performed By Performed On [facility] 10/09/2011 65870 UA W/ CULTURE IF INDICATED 02/19/2012 19704 ROUTINE VENIPUNCTURE 02/22/2012 14106 CBC 02/22/2012 07054 LIPID PANEL 02/22/2012 09179 CMP 02/22/2012 5238892 GFR CALC (RESULT ONLY) 02/22/2012 82436 TSH 02/23/2012 30421 MAMMOGRAM, SCREENING 02/23/2012 29890 HEMOCCULT 02/23/2012 03903 PAP SMEAR 02/23/2012 Q0091 PAP SMEAR OBTAIN SMEAR 02/23/2012 17210 URINE DRUG SCREEN (IN-HOUSE ) 01/18/2013 84669 MAMMOGRAM, SCREENING 01/19/2013 URINEDRUG URINE DRUG SCREEN (CON'F ) 01/19/2013 54955 BONE DENSITY, DEXA 04/17/2013 GENERAL S Carrollo, Ken 04/17/2013 19783 BONE MINERAL DENSITY, HEEL US (IN HOUSE) 04/17/2013 03451 XRAY CERVICAL SPINE, 2 OR 3 VIEWS 06/02/2013 02109 ROUTINE VENIPUNCTURE 02/16/2014 74862 MAMMOGRAM, SCREENING 02/16/2014 [id number] GFR CALC (RESULT ONLY) 02/16/2014 74604 CMP 02/16/2014 Results Test Result Range Complete blood count (CBC) with automated white blood cell (WBC) differential - 07/11/16 16:13 Blood leukocytes automated count (number/volume) 18.1 10*3/uL 4.3-11.0 Blood erythrocytes automated count (number/volume) 4.07 10*6/uL 4.35-5.85 Venous blood hemoglobin measurement (mass/volume) 13.2 g/dL 11.5-16.0 Blood hematocrit (volume fraction) 39 % 35-52 Automated erythrocyte mean corpuscular volume 96 [foz_us] 80-99 Automated erythrocyte mean corpuscular hemoglobin (mass per erythrocyte) 32 pg 25-34 Automated erythrocyte mean corpuscular hemoglobin concentration measurement ( mass/volume) 34 g/dL 32-36 Automated erythrocyte distribution width ratio 13.4 % 10.0-14.5 Automated blood platelet count (count/volume) 344 10*3/uL 130-400 Automated blood platelet mean volume measurement 10.5 [foz_us] 7.4-10.4 Automated blood neutrophils/100 leukocytes 72 % 42-75 Automated blood lymphocytes/100 leukocytes 20 % 12-44 Blood monocytes/100 leukocytes 6 % 0-12 Automated blood eosinophils/100 leukocytes 1 % 0-10 Automated blood basophils/100 leukocytes 1 % 0-10 Blood neutrophils automated count (number/volume) 13.1 10*3 1.8-7.8 Blood lymphocytes automated count (number/volume) 3.7 10*3 1.0-4.0 Blood monocytes automated count (number/volume) 1.0 10*3 0.0-1.0 Automated eosinophil count 0.2 10*3/uL 0.0-0.3 Automated blood basophil count (count/volume) 0.1 10*3/uL 0.0-0.1 PT panel in platelet poor plasma by coagulation assay - 07/11/16 16:13 Prothrombin time (PT) in platelet poor plasma by coagulation assay 13.2 s 12.2-14.7 INR in platelet poor plasma or blood by coagulation assay 1.0 0.8-1.4 Activated partial thromboplastin time (aPTT) in platelet poor plasma bycoagulation assay - 07/11/16 16:13 Activated partial thromboplastin time (aPTT) in platelet poor plasma bycoagulation assay 28 s 24-35 Blood manual differential performed detection - 07/11/16 16:13 Blood monocytes/100 leukocytes 2 % NRG Manual blood segmented neutrophils/100 leukocytes 63 % NRG Blood band neutrophils/100 leukocytes 0 % NR Manual blood lymphocytes/100 leukocytes 34 % NRG Manual eosinophils/100 leukocytes in nose 1 % NR Manual blood basophils/100 leukocytes 0 % NR Blood erythrocyte morphology finding identification NORMAL BANNER Comprehensive metabolic panel - 07/11/16 16:13 Serum or plasma sodium measurement (moles/volume) 141 mmol/L 135-145 Serum or plasma potassium measurement (moles/volume) 3.9 mmol/L 3.6-5.0 Serum or plasma chloride measurement (moles/volume) 107 mmol/L 98-107 Carbon dioxide 19 mmol/L 21-32 Serum or plasma anion gap determination (moles/volume) 15 mmol/L 5-14 Serum or plasma urea nitrogen measurement (mass/volume) 13 mg/dL 7-18 Serum or plasma creatinine measurement (mass/volume) 0.69 mg/dL 0.60-1.30 Serum or plasma urea nitrogen/creatinine mass ratio 19 NRG Serum or plasma creatinine measurement with calculation of estimated glomerular filtration rate > NRG Serum or plasma glucose measurement (mass/volume) 62 mg/dL 70-105 Serum or plasma calcium measurement (mass/volume) 8.5 mg/dL 8.5-10.1 Serum or plasma total bilirubin measurement (mass/volume) 0.3 mg/dL 0.1-1.0 Serum or plasma alkaline phosphatase measurement (enzymatic activity/volume) 95 U/L 40-136 Serum or plasma aspartate aminotransferase measurement (enzymatic activity/ volume) 28 U/L 5-34 Serum or plasma alanine aminotransferase measurement (enzymatic activity/volume ) 13 U/L 0-55 Serum or plasma protein measurement (mass/volume) 7.4 g/dL 6.4-8.2 Serum or plasma albumin measurement (mass/volume) 4.2 g/dL 3.2-4.5 Serum or plasma thyrotropin measurement by detection limit <=0.05 miu/l (units/ volume) - 07/11/16 16:13 Serum or plasma thyrotropin measurement by detection limit <=0.05 miu/l (units/ volume) 0.69 u[iU]/mL 0.35-4.94 Serum or plasma ethanol measurement (mass/volume) - 07/11/16 16:13 Serum or plasma ethanol measurement (mass/volume) 199 mg/dL <10 Complete urinalysis with reflex to culture - 07/11/16 16:53 Urine color determination YELLOW NRG Urine clarity determination CLEAR NRG Urine pH measurement by test strip 6.5 5-9 Specific gravity of urine by test strip 1.005 1.016- 1.022 Urine protein assay by test strip, semi-quantitative NEGATIVE NEGATIVE Urine glucose detection by automated test strip NEGATIVE NEGATIVE Erythrocytes detection in urine sediment by light microscopy NEGATIVE NEGATIVE Urine ketones detection by automated test strip NEGATIVE NEGATIVE Urine nitrite detection by test strip NEGATIVE NEGATIVE Urine total bilirubin detection by test strip NEGATIVE NEGATIVE Urine urobilinogen measurement by automated test strip (mass/volume) NORMAL NORMAL Urine leukocyte esterase detection by dipstick NEGATIVE NEGATIVE Automated urine sediment erythrocyte count by microscopy (number/high power field) NONE NRG Automated urine sediment leukocyte count by microscopy (number/high power field ) RARE NRG Bacteria detection in urine sediment by light microscopy NEGATIVE NRG Squamous epithelial cells detection in urine sediment by light microscopy 0-2 NRG Crystals detection in urine sediment by light microscopy NONE NRG Casts detection in urine sediment by light microscopy NONE NRG Mucus detection in urine sediment by light microscopy NEGATIVE NRG Complete urinalysis with reflex to culture NO NRG Yeast detection in urine sediment by light microscopy FEW NRG Urine drug screening test - 07/11/16 16:53 Urine phencyclidine detection by screening method NEGATIVE NEGATIVE Urine benzodiazepines detection by screening method NEGATIVE NEGATIVE Urine cocaine detection NEGATIVE NEGATIVE Urine amphetamines detection by screening method NEGATIVE NEGATIVE Urine methamphetamine detection by screening method NEGATIVE NEGATIVE Urine cannabinoids detection by screening method NEGATIVE NEGATIVE Urine opiates detection by screening method NEGATIVE NEGATIVE Urine barbiturates detection NEGATIVE NEGATIVE Screening urine tricyclic antidepressants detection NEGATIVE NEGATIVE Urine methadone detection by screening method NEGATIVE NEGATIVE Urine oxycodone detection NEGATIVE NEGATIVE Urine propoxyphene detection NEGATIVE NEGATIVE Complete blood count (CBC) with automated white blood cell (WBC) differential - 04/06/17 12:20 Blood leukocytes automated count (number/volume) 13.4 10*3/uL 4.3-11.0 Blood erythrocytes automated count (number/volume) 4.49 10*6/uL 4.35-5.85 Venous blood hemoglobin measurement (mass/volume) 15.9 g/dL 11.5-16.0 Blood hematocrit (volume fraction) 44 % 35-52 Automated erythrocyte mean corpuscular volume 99 [foz_us] 80-99 Automated erythrocyte mean corpuscular hemoglobin (mass per erythrocyte) 35 pg 25-34 Automated erythrocyte mean corpuscular hemoglobin concentration measurement ( mass/volume) 36 g/dL 32-36 Automated erythrocyte distribution width ratio 12.7 % 10.0-14.5 Automated blood platelet count (count/volume) 308 10*3/uL 130-400 Automated blood platelet mean volume measurement 9.7 [foz_us] 7.4-10.4 Automated blood neutrophils/100 leukocytes 59 % 42-75 Automated blood lymphocytes/100 leukocytes 29 % 12-44 Blood monocytes/100 leukocytes 11 % 0-12 Automated blood eosinophils/100 leukocytes 0 % 0-10 Automated blood basophils/100 leukocytes 1 % 0-10 Blood neutrophils automated count (number/volume) 8.0 10*3 1.8-7.8 Blood lymphocytes automated count (number/volume) 3.9 10*3 1.0-4.0 Blood monocytes automated count (number/volume) 1.5 10*3 0.0-1.0 Automated eosinophil count 0.1 10*3/uL 0.0-0.3 Automated blood basophil count (count/volume) 0.1 10*3/uL 0.0-0.1 Comprehensive metabolic panel - 04/06/17 12:20 Serum or plasma sodium measurement (moles/volume) 139 mmol/L 135-145 Serum or plasma potassium measurement (moles/volume) 3.7 mmol/L 3.6-5.0 Serum or plasma chloride measurement (moles/volume) 100 mmol/L 98-107 Carbon dioxide 24 mmol/L 21-32 Serum or plasma anion gap determination (moles/volume) 15 mmol/L 5-14 Serum or plasma urea nitrogen measurement (mass/volume) 11 mg/dL 7-18 Serum or plasma creatinine measurement (mass/volume) 0.62 mg/dL 0.60-1.30 Serum or plasma urea nitrogen/creatinine mass ratio 18 NRG Serum or plasma creatinine measurement with calculation of estimated glomerular filtration rate > NRG Serum or plasma glucose measurement (mass/volume) 90 mg/dL 70-105 Serum or plasma calcium measurement (mass/volume) 10.2 mg/dL 8.5-10.1 Serum or plasma total bilirubin measurement (mass/volume) 0.7 mg/dL 0.1-1.0 Serum or plasma alkaline phosphatase measurement (enzymatic activity/volume) 74 U/L 40-136 Serum or plasma aspartate aminotransferase measurement (enzymatic activity/ volume) 38 U/L 5-34 Serum or plasma alanine aminotransferase measurement (enzymatic activity/volume ) 33 U/L 0-55 Serum or plasma protein measurement (mass/volume) 8.5 g/dL 6.4-8.2 Serum or plasma albumin measurement (mass/volume) 5.3 g/dL 3.2-4.5 Serum or plasma ethanol measurement (mass/volume) - 04/06/17 12:20 Serum or plasma ethanol measurement (mass/volume) 210 mg/dL <10 Urine drug screening test - 04/06/17 12:40 Urine phencyclidine detection by screening method NEGATIVE NEGATIVE Urine benzodiazepines detection by screening method NEGATIVE NEGATIVE Urine cocaine detection NEGATIVE NEGATIVE Urine amphetamines detection by screening method NEGATIVE NEGATIVE Urine methamphetamine detection by screening method NEGATIVE NEGATIVE Urine cannabinoids detection by screening method NEGATIVE NEGATIVE Urine opiates detection by screening method NEGATIVE NEGATIVE Urine barbiturates detection NEGATIVE NEGATIVE Screening urine tricyclic antidepressants detection NEGATIVE NEGATIVE Urine methadone detection by screening method NEGATIVE NEGATIVE Urine oxycodone detection NEGATIVE NEGATIVE Urine propoxyphene detection NEGATIVE NEGATIVE Complete urinalysis with reflex to culture - 04/06/17 12:40 Urine color determination YELLOW NRG Urine clarity determination CLEAR NRG Urine pH measurement by test strip 5 5-9 Specific gravity of urine by test strip 1.010 1.016- 1.022 Urine protein assay by test strip, semi-quantitative 2+ NEGATIVE Urine glucose detection by automated test strip NEGATIVE NEGATIVE Erythrocytes detection in urine sediment by light microscopy NEGATIVE NEGATIVE Urine ketones detection by automated test strip NEGATIVE NEGATIVE Urine nitrite detection by test strip NEGATIVE NEGATIVE Urine total bilirubin detection by test strip NEGATIVE NEGATIVE Urine urobilinogen measurement by automated test strip (mass/volume) NORMAL NORMAL Urine leukocyte esterase detection by dipstick NEGATIVE NEGATIVE Automated urine sediment erythrocyte count by microscopy (number/high power field) NONE NRG Automated urine sediment leukocyte count by microscopy (number/high power field ) NONE NRG Bacteria detection in urine sediment by light microscopy NEGATIVE NRG Squamous epithelial cells detection in urine sediment by light microscopy 2-5 NRG Crystals detection in urine sediment by light microscopy NONE NRG Casts detection in urine sediment by light microscopy NONE NRG Mucus detection in urine sediment by light microscopy NEGATIVE NRG Complete urinalysis with reflex to culture NO NRG Encounters ACCT No. Visit Date/Time Discharge Status Pt. Type Provider Facility Loc./Unit Complaint [id number] 02/16/2014 11:31:00 02/16/2014 23:59:59 CLS Outpatient HMUA LOZOYA MD [id number] 12/02/2013 06:43:00 12/02/2013 23:59:59 CLS Outpatient HUMA LOZOYA MD [id number] 11/27/2013 11:19:00 11/27/2013 23:59:59 CLS Outpatient HUMA LOZOYA MD [id number] 10/30/2013 12:59:00 10/30/2013 23:59:59 CLS Outpatient ADDIS SPRINGER APRN [id number] 09/18/2013 13:40:00 09/18/2013 23:59:59 CLS Outpatient HUMA LOZOYA MD [id number] 07/25/2013 16:53:00 07/25/2013 23:59:59 CLS Outpatient HUMA LOZOYA MD [id number] 06/02/2013 11:36:00 06/02/2013 23:59:59 CLS Outpatient BERRY BALDERRAMA DO [id number] 06/02/2013 11:36:00 06/02/2013 23:59:59 CLS Outpatient BERRY BALDERRAMA DO [id number] 04/17/2013 10:34:00 04/17/2013 23:59:59 CLS Outpatient APRIL QUINTANILLA APRN [id number] 04/17/2013 10:34:00 04/17/2013 23:59:59 CLS Outpatient APRIL QUINTANILLA APRN [id number] 03/02/2013 13:45:00 03/02/2013 23:59:59 CLS Outpatient HUMA LOZOYA MD [id number] 03/02/2013 13:45:00 03/02/2013 23:59:59 CLS Outpatient HUMA LOZOYA MD [id number] 01/18/2013 14:08:00 01/18/2013 23:59:59 CLS Outpatient HUMA LOZOYA MD [id number] 12/19/2012 11:31:00 12/19/2012 23:59:59 CLS Outpatient HUMA LOZOYA MD [id number] 09/29/2012 16:24:00 09/29/2012 23:59:59 CLS Outpatient HUMA LOZOYA MD [id number] 03/28/2012 11:42:00 03/28/2012 23:59:59 CLS Outpatient HUMA LOZOYA MD [id number] 02/22/2012 09:43:00 02/22/2012 23:59:59 CLS Outpatient BERRY BALDERRAMA DO [id number] 02/19/2012 13:27:00 02/19/2012 23:59:59 CLS Outpatient BERRY BALDERRAMA DO [id number] 10/02/2011 09:36:00 10/02/2011 23:59:59 [place] [id number] 10/02/2011 09:36:00 10/02/2011 23:59:59 CLS Outpatient [id number] 06/24/2012 13:29:00 Document Registration [id number] 07/11/2016 16:09:00 07/11/2016 19:12:00 DIS Emergency MELISSA GARCIA [facility] ER ALCOHOL INTOX [id number] 03/03/2016 15:38:00 03/03/2016 16:45:00 DIS Emergency LI LOPEZ APRN [facility] ER R ANKLE PAIN [id number] 05/02/2015 16:39:00 05/04/2015 13:14:00 DIS Inpatient FINESSE MOY MD [facility] 4TH RLL PNUEMONIA [id number] 11/19/2013 22:15:00 11/20/2013 10:50:00 DIS Inpatient DANICA LERNER MD [facility] ICU ETOH INTOXICATION, AMS [id number] 10/02/2013 15:43:00 10/03/2013 14:03:00 DIS Inpatient BERRY BALDERRAMA DO [facility] ICU SUICIDAL/HOMICIDAL IDEATION, ETOH INTOXICATION [id number] 04/27/2013 09:25:00 04/27/2013 23:59:59 CLS Outpatient DWIGHTAPRIL ABDALLA APRN [facility] RAD OSTEOPENIA [id number] 03/06/2013 10:54:00 03/06/2013 23:59:59 CLS Outpatient HUMA LOZOYA MD [facility] RAD SCREENING [id number] 11/14/2012 15:16:00 11/14/2012 23:59:59 CLS Outpatient [id number] 09/19/2012 13:31:00 09/19/2012 23:59:59 CLS Outpatient [id number] 08/22/2012 15:17:00 08/22/2012 23:59:59 CLS Outpatient [id number] 08/04/2012 14:36:00 08/04/2012 23:59:59 CLS Outpatient [id number] 07/20/2012 12:07:00 07/20/2012 13:45:00 DIS Emergency FRANCISCO ACEVEDO DO [facility] ER FELL INJ L ARM [id number] 04/06/2017 13:08:00 Document Registration [id number] 03/16/2014 10:56:00 Document Registration [id number] 03/04/2012 10:23:00 Document Registration
--- NOTE | 2017-04-06 19:20 | ED Lower Extremity ---
General Chief Complaint: Lower Extremity Stated Complaint: ANKLE PAIN Nursing Triage Note: AMB TO ED BY EMS PATIENT HAD BEEN DISCHARGED 1 HR TIRE BUFFER WITH FX ANKLE. BACK BECAUSE SHE WANTS PAIN MEDS WAS TOLD ON DISCHARGE WOULD NOT GIVE DUE TO HER DRINKING WHISKEY. PATIENT ADMITS TO SMOKING POT BEFORE COMING BACK . STEPLITE BOOT REMAINS IN PLACE. EMS REPORT THAT HER STEP LITE BOOT WAS OFF THEY MADE HER PUT IT BACK ON. Nursing Sepsis Screen: No Definite Risk Source: patient Exam Limitations: no limitations History of Present Illness Date Seen by Provider: Apr 06, 2017 Allergies and Home Medications Allergies Coded Allergies: No Known Drug Allergies (Unverified , 07/20/12) Home Medications Aspirin 81 Mg Tablet.dr, 81 MG PO DAILY, (Reported) Buspirone HCl 10 Mg Tablet, 10 MG PO BID, (Reported) Cefpodoxime Proxetil 200 Mg Tablet, 200 MG PO BID Prescribed by: FINESSE DESAI on 05/04/15 1211 Diclofenac Sodium 75 Mg Tablet.dr, 75 MG PO BID, (Reported) Furosemide 40 Mg Tablet, 40 MG PO DAILY, (Reported) Gabapentin 300 Mg Capsule, 300 MG PO TID, (Reported) Hydrocodone/Acetaminophen 1 Each Tablet, 1 EACH PO Q4H PRN for PAIN Prescribed by: LI LOPEZ on 03/03/16 1620 Levomilnacipran Hydrochloride 80 Mg Cap.sa.24h, 80 MG PO DAILY, (Reported) Loratadine 10 Mg Tablet, 10 MG PO DAILY, (Reported) Lorazepam 0.5 Mg Tablet, 0.5 MG PO DAILY PRN for ANXIETY, (Reported) Multivitamin 1 Each Tablet, 1 TAB PO DAILY, (Reported) Potassium Chloride 20 Meq Tab.er.prt, 20 MEQ PO DAILY, (Reported) Quetiapine Fumarate 100 Mg Tablet, 100 MG PO HS, (Reported) Tizanidine HCl 4 Mg Tablet, 4 MG PO TID PRN for MUSCLE SPASMS, (Reported) Past [id number]-[id number]-Yanpry Hx Patient Social History Alcohol Use: Regular Use Number of Drinks Today: BB Alcohol Beverage of Choice: Whiskey, [place] Recreational Drug Use: No Drug of Choice: WEED Type Used: Cigarettes Recent Foreign Travel: No Contact w/Someone Who Travel: No Recent Infectious Disease Expo: No Recent Hopitalizations: No Immunizations Up To Date Tetanus Booster (TDap): Unknown PED Vaccines UTD: No Seasonal Allergies Seasonal Allergies: No Surgeries History of Surgeries: Yes (CYST ON OVARY) Respiratory History of Respiratory Disorde: Yes Respiratory Disorders: Sleep Apnea, COPD Currently Using CPAP: No Currently Using BIPAP: No Cardiovascular History of Cardiac Disorders: No Neurological History of Neurological Disord: Yes Reproductive System Hx Reproductive Disorders: No Sexually Transmitted Disease: No HIV/AIDS: No Female Reproductive Disorders: Denies Gastrointestinal History of Gastrointestinal Di: No Musculoskeletal History of Musculoskeletal Dis: Yes Musculoskeletal Disorders: Arthritis, Chronic Back Pain Endocrine History of Endocrine Disorders: No Cancer History of Cancer: No Psychosocial History of Psychiatric Problem: Yes Behavioral Health Disorders: Sleep Difficulties, Anxiety, Suicide Attempts, Bipolar, Depression Integumentary History of Skin or Integumenta: No Blood Transfusions History of Blood Disorders: No Family Medical History Significant Family History: No Pertinent Family Hx Family Medial History: Alcoholism 19 FATHER G8 BROTHER G8 BROTHER G8 BROTHER G8 SISTER G8 SISTER FH: brain cancer G8 SISTER Neoplasm 19 MOTHER Physical Exam Vital Signs Vital Signs - First Documented 04/06/17 18:49 Temp 96.2 Pulse 75 Resp 18 B/P (MAP) 131/97 (108) Pulse Ox 98 O2 Delivery Room Air Capillary Refill : Less Than 3 Seconds Progress/Results/Core Measures Results/Orders Vital Signs/I&O Vital Sign - Last 12Hours 04/06/17 18:49 Temp 96.2 Pulse 75 Resp 18 B/P (MAP) 131/97 (108) Pulse Ox 98 O2 Delivery Room Air Blood Pressure Mean: 108 Departure Impression Impression: Primary Impression: Closed right ankle fracture Additional Impression: Polysubstance abuse Disposition: 01 HOME, SELF-CARE Condition: Improved Departure-Patient Inst. Decision time for Depature: 19:45 Referrals: HUMA LOZOYA MD (PCP/Family) Primary Care Physician RAYMOND POLANCO MD Patient Instructions: Ankle Fracture (DC) Add. Discharge Instructions: All discharge instructions reviewed with patient and/or family. Voiced understanding. Tylenol extra strength [id number] as directed for pain. Elevate the right ankle on pillows. Continue using the boot and crutches or walker as instructed. Follow-up with Dr. Polanco as an outpatient for recheck and for further treatment. Call tomorrow morning for appointment time. Return to the emergency department for worsened symptoms or any other concerns. MELISSA TOMAS Apr 06, 2017 19:19
[2017-04-06] MEDS ORDERED: ACETAMINOPHEN 500 MG TAB (TYLENOL) PO STA (19:59)
[2017-04-06 20:07] VITALS: BP 127/88
== END 2017-04-06 20:05 | disposition home or self-care (01) ==
LOC: EDUNIT# 18:37 → ER 18:38
DX: S82.891A Other fracture of right lower leg, initial encounter for closed fracture (principal); F19.10 Other psychoactive substance abuse, uncomplicated; G47.30 Sleep apnea, unspecified; J44.9 Chronic obstructive pulmonary disease, unspecified; F41.9 Anxiety disorder, unspecified; F31.9 Bipolar disorder, unspecified; F12.10 Cannabis abuse, uncomplicated; Z79.82 Long term (current) use of aspirin; Z91.5 Personal history of self-harm; Z80.8 Family history of malignant neoplasm of other organs or systems; X58.XXXA Exposure to other specified factors, initial encounter
CPT/HCPCS: 99283

== ENCOUNTER → 2017-05-11 | Emergency (ER) | payer MEDICAID ==
[~2017-05-11] VITALS: Ht 162.6 cm; Wt 45.4 kg
--- OUTSIDE RECORDS SUMMARY | 2017-05-11 21:17 | XMS REPORT ---
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 Name Role Phone HUMA LOZOYA Unavailable PROBLEMS Type Condition ICD9-CM Code XEM28-VQ Code Onset Dates Condition Status SNOMED Code Problem Other and unspecified hyperlipidemia 272.4 Active 30410925 Problem Alcoholism F10.20 Active 3064790 Problem Asthma J45.909 Active 126558119 Problem Other chronic pain G89.29 Active 30115094 Problem Arthritis M19.90 Active 0636094 Problem Closed fracture of shaft of right fibula, unspecified fracture morphology, initial encounter S82.401A Active 92751916 Problem Bipolar disorder F31.9 Active 63718785 Problem Arthropathy, unspecified M12.9 Active 476467293 Problem Major depressive disorder, single episode F32.9 Active 32292432 ALLERGIES No Information ENCOUNTERS Encounter Location Date Diagnosis [place] [address] [address]- [address] Apr, [place] [address] [place] [id number] [place] [address] 19387- 3640 Apr, Injury of right ankle, initial encounter S99.911A and Encounter for immunization Z23 [place] [address] [place] [id number] [place] [address] 02981- 5449 Dec, [place] [address] 8[address]61- 2519 Nov, Pain in right ankle and joints of right foot M25.571 ; Other chronic pain G89.29 and Post-traumatic arthritis of right ankle M19.171 [place] [address] [place] [id number] [place] [address] 14472- 7978 Oct, Arthritis M19.90 [place] [id number], [place] [address] 47[address] 13 Aug, 2016 Arthritis M19.90 [facility] [address] [place] [id number] [place] [address] 22265- 5232 Aug, [facility] [id number] [place] [address] 19760- 7903 Jul, [facility] [address] [place] [id number] [place] [address] 05454- 9616 June, Arthropathy, unspecified M12.9 [facility] [address] [place] [id number] [place] [address] 38239- 0190 May, Asthma J45.909 and Major depressive disorder, single episode F32.9 [facility] [address] [place] [id number] [place] [address] 25163- 0479 Mar, Closed fracture of shaft of right fibula, unspecified fracture morphology, initial encounter S82.401A [facility] [address] [place] [id number] [place] [address] 29356- 1597 Feb, [facility] [address] [place] [id number] [place] [address] 14667- 7126 Feb, [facility] [id number] [place] [address] 46663- 9453 Nov, [facility] [id number] [place] [address] 77412- 9076 Nov, Bipolar disorder F31.9 ; Encounter for immunization Z23 and Asthma J45.909 [facility] [address] [address] 1201 Aug, [facility] [address] [place] [id number] [place] [address] 25265- 2592 May, [facility] [id number] [place] [address] 31119- 6144 Apr, [facility] [address] [place] [id number] [place] [address] 27862- 6542 Apr, [facility] [address] [place] [id number] [place] [address] 07380- 8527 Apr, URI (upper respiratory infection) J06.9 and Bipolar disorder F31.9 [facility] [address] [place] [id number] [place] [address] 26054- 8744 Feb, [facility] [address] 00870- 6254 Feb, Asthma J45.909 and Alcoholism F10.20 [facility] [address] [place] [id number] [place] [address] 61591- 1421 Jan, [facility] [address] [place] [id number] [place] [address] 86273- 4548 Jan, [facility] [address] [place] [id number] [place] [address] 20996- 3311 Jan, [facility] [address] [place] [id number] [place] [address] 54217- 4746 Nov, Alcoholism F10.20 and Anxiety F41.9 [facility] [address] [place] [id number] [place] [address] 27256- 4107 Jul, Anxiety 300.00 and Arthropathy 716.90 [facility] [address] [place] [id number] [place] [address] 42245- 8815 Jul, [facility] [address] [place] [id number] [place] [address] 00396- 4288 Jul, Anxiety state 300.00 [facility] [address] [place] [id number] [place] [address] 25523- 9593 May, [facility] [address] 38581- 9225 May, [facility] [address] [place] [id number] [place] [address] 42553- 9302 Apr, [facility] [address] [place] [address]- 0171 Apr, [facility] [place] [facility] [address] [id number] [place] [address]- 5696 Mar, [facility] [place] [facility] [address] [id number] [place] [address]- 1727 Mar, [facility] [place] [facility] [address] [id number] [place] [address]- 1729 Feb, [facility] [place] [facility] [address] [id number] [place] [address]- 0680 Feb, [facility] [place] [facility] [address] [id number] [place] [address]- 2378 Feb, [facility] [place] [facility] [address] [id number] [place] [address]- 6505 Feb, [facility] [place] [facility] [address] [id number] [place] [address]- 6440 Jan, [facility] [place] [facility] [address] [id number] [place] [address]- 6015 Jan, [facility] [place] [facility] [address] [id number] [place] [address]- 1261 Jan, [facility] [place] [facility] [address] [facility] [id number] [place] [address]- 0937 Jan, [facility] [place] [facility] [address] [id number] [place] [address]- 8271 Nov, [facility] [place] [facility] [address] [id number] [place] [address]- 0030 Nov, [facility] [place] [facility] [address] [id number] [place] [address]- 4701 Nov, [facility] [place] [facility] [address] [id number] [place] [address]- 2853 Nov, [facility] [place] [facility] [address] [id number] [place] [address]- 8021 Nov, [facility] [place] [facility] [address] [id number] [place] [address]- 4415 Nov, [facility] [place] [facility] [address] [id number] [place] [address]- 2296 Nov, [facility] [place] [facility] [address] [id number] [place] [address]- 0226 Nov, [facility] [place] [facility] [address] [id number] [place] [address]- 5402 Nov, [facility] [place] [facility] [address] [id number] [place] [address]- 1577 Nov, [facility] [place] [facility] [address] [id number] [place] [address]- 8763 Nov, [facility] [place] [facility] [address] [id number] [place] [address]- 3079 Nov, [facility] [place] [facility] [address] [id number] [place] [address]- 3883 Nov, [facility] [place] [facility] [address] [id number] [place] [address]- 4044 30 Oct, 2013 [facility] [place] [facility] [address] [id number] [place] [address]- 2639 30 Oct, 2013 [facility] [place] [facility] [address] [id number] [place] [address]- 8160 26 Oct, 2013 [facility] [place] [facility] [address] [id number] [place] [address]- 5883 26 Oct, 2013 [facility] [place] [facility] [address] [id number] [place] [address]- 4718 08 Oct, 2013 [facility] [place] [facility] [address] [id number] [place] [address]- 9426 08 Oct, 2013 [facility] [place] [facility] [address] [id number] [place] [address]- 8285 04 Oct, 2013 [facility] [place] [facility] [address] [id number] [place] [address]- 1129 Oct, 2013 [facility] [place] [facility] [address] [id number] [place] [address]- 2266 Oct, 2013 [facility] [place] [facility] [address] [id number] [place] [address]- 2301 Oct, [facility] [place] [facility] [address] [id number] [place] [address]- 3252 Oct, [facility] [place] [facility] [address] [id number] [place] [address]- 6715 Oct, [facility] [place] [facility] [address] [id number] [place] [address]- 4046 Sep, [facility] [place] [facility] [address] [id number] [place] [address]- 9245 Sep, [facility] [place] [facility] [address] [id number] [place] [address]- 4794 Sep, [facility] [place] [facility] [address] [id number] [place] [address]- 7890 Sep, [facility] [place] [facility] [address] [id number] [place] [address]- 4589 Sep, [facility] [place] [facility] [address] [id number] [place] [address]- 5340 Sep, [facility] [place] [facility] [address] [id number] [place] [address]- 1849 Sep, [facility] [place] [facility] [address] [id number] [place] [address]- 2595 Sep, [facility] [place] [facility] [address] [id number] [place] [address]- 9683 Aug, [facility] [place] [facility] [address] [id number] [place] [address]- 3269 Aug, [facility] [place] [facility] [address] [id number] [place] [address]- 0983 Aug, [facility] [place] [facility] [address] [id number] [place] [address]- 2284 Aug, [facility] [place] [facility] [address] [id number] [place] [address]- 5927 Jul, [facility] [place] [facility] [address] [id number] [place] [address]- 1487 Jul, [facility] [place] [facility] [address] [id number] [place] [address]- 4986 Jul, [facility] [place] [facility] [address] [id number] [place] [address]- 8681 Jul, [facility] [place] [facility] [address] [id number] [place] [address]- 7563 Jul, [facility] [place] [facility] [address] [id number] [place] [address]- 9898 Jul, [facility] [place] [facility] [address] [id number] [place] [address]- 3327 June, [facility] [place] [facility] [address] [id number] [place] [address]- 6350 June, [facility] [place] [facility] [address] [id number] [place] [address]- 8837 June, [facility] [place] [facility] [address] [id number] [place] [address]- 3391 June, [facility] [place] [facility] [address] [id number] [place] [address]- 6610 June, [facility] [place] [facility] [address] [id number] [place] [address]- 7577 June, [facility] [place] [facility] [address] [id number] [place] [address]- 1167 May, [facility] [place] [facility] [address] [id number] [place] [address]- 6237 May, [facility] [place] [facility] [address] [id number] [place] 5714 May, [facility] [place] [facility] [address] [id number] [place] [address]- 1526 May, [facility] [place] [facility] [address] [id number] [place] [address]- 4152 May, [facility] [place] [facility] [address] [id number] [place] [address]- 1103 May, [facility] [place] [facility] [address] [id number] [place] [address]- 0060 May, [facility] [place] [facility] [address] [id number] [place] [address]- 3673 May, [facility] [place] [facility] [address] [id number] [place] [address]- 0297 May, [facility] [place] [facility] [address] [id number] [place] [address]- 1761 May, [facility] [place] [facility] [address] [id number] [place] [address]- 0497 Apr, [facility] [place] [facility] [address] [id number] [place] [address]- 9214 Apr, [facility] [place] [facility] [address] [id number] [place] [address]- 5987 Apr, [facility] [place] [facility] [address] [id number] [place] [address]- 0742 Apr, [facility] [place] [facility] [address] [id number] [place] [address]- 8992 Apr, [facility] [place] [facility] [address] [id number] [place] [address]- 5847 Apr, [facility] [place] [facility] [address] [id number] [place] [address]- 1867 Apr, [facility] [place] [facility] [address] [id number] [place] [address]- 5852 Apr, [facility] [place] [facility] [address] [id number], [place] [address]- 4782 Apr, [facility] [place] [facility] [address] [id number] [place] [address]- 1389 Apr, [facility] [place] [facility] [address] [id number] [place] [address]- 0870 Apr, [facility] [place] [facility] [address] [id number] [place] [address]- 9136 Apr, [facility] [place] [facility] [address] [id number] [place] [address]- 3079 Mar, [facility] [place] [facility] [address] [id number] [place] [address]- 0543 Mar, [facility] [place] [facility] [address] [id number] [place] [address]- 3984 Mar, [facility] [place] [facility] [address] [id number] [place] [address]- 5480 Mar, [facility] [place] [facility] [address] [id number] [place] [address]- 6488 Feb, [facility] [place] [facility] [address] [id number] [place] [address]- 7655 Feb, [facility] [place] [facility] [address] [id number] [place] [address]- 4994 Feb, [facility] [place] [facility] [address] [id number] [place] [address]- 6822 Feb, [facility] [place] [facility] [address] [id number], [place] [address]- 3501 Feb, [facility] [place] [facility] [address] [id number] [place] [address]- 4912 Feb, [facility] [place] [facility] [address] [id number] [place] [address]- 7040 Feb, [facility] [place] [facility] [address] [id number], [place] [address]- 5116 Feb, [facility] [place] [facility] [address] [id number] [place] [address]- 1243 Feb, [facility] [address] [id number] [place] [address]- 5191 Feb, [facility] [address] [id number] [place] [address]- 4138 Jan, [facility] [address] [id number] [place] [address]- 4038 Jan, [facility] [address] [id number] [place] [address]- 1705 Jan, [facility] [address] [id number] [place] [address]- 5727 Jan, [facility] [address] [id number] [place] [address]- 2095 Jan, [facility] [address] [id number] [place] [address]- 1156 Jan, [facility] [address] [id number] [place] [address]- 9243 Jan, [facility] [address] [id number] [place] [address]- 1995 Jan, [facility] [address] [id number] [place] [address]- 4017 Jan, [facility] [place] [facility] [address] [id number], [place] [address]- 1677 Dec, [facility] [place] [facility] [address] [id number] [place] [address]- 1664 Dec, [facility] [place] [facility] [address] [id number] [place] [address]- 2907 Dec, [facility] [place] [facility] [address] [id number] [place] [address]- 1185 Dec, [facility] [place] [facility] [address] [id number] [place] [address]- 3819 Nov, [facility] [place] [facility] [address] [id number] [place] [address]- 1555 Nov, [facility] [place] [facility] [address] [id number] [place] [address]- 3220 Nov, [facility] [place] [facility] [address] [id number] [place] [address]- 3654 Nov, [facility] [place] [facility] [address] [id number] [place] [address]- 8608 Nov, [facility] [place] [facility] [address] [id number] [place] 0385 Nov, [facility] [place] [facility] [address] [id number] [place] [address]- 0618 Oct, [facility] [place] [facility] [address] [id number] [place] [address]- 2285 Oct, [facility] [place] [facility] [address] [id number] [place] [address]- 1473 Sep, [facility] [place] [facility] [address] [id number] [place] [address]- 7096 Sep, [facility] [place] [facility] [address] [id number] [place] [address]- 6218 Sep, [facility] [place] [facility] [address] [id number] [place] [address]- 9999 Sep, [facility] [place] [facility] [address] [id number] [place] [address]- 5530 Aug, [facility] [place] [facility] [address] [id number] [place] [address]- 2797 Aug, [facility] [place] [facility] [address] [id number] [place] [address]- 8643 Aug, [facility] [place] [facility] [address] [id number] [place] [address]- 3308 Jul, [facility] [place] [facility] [address] [id number] [place] [address]- 2546 Jul, [facility] [address] [id number] [place] [address]- 5252 Jul, [facility] [address] [id number] [place] [address]- 2546 Jul, [facility] [address] [id number] [place] [address] 2546 June, [facility] [address] [id number] [place] [address]- 2546 June, [facility] [address] [id number] [place] [address]- 2906 May, [facility] [address] [id number] [place] [address]- 2546 May, [facility] [address] [id number] [place] [address]- 2826 Apr, [facility] [address] [id number] [place] [address]- 1662 Apr, [facility] [address] [id number] [place] [address]- 0830 Mar, [facility] [address] [id number] [place] [address]- 5266 Mar, [facility] [address] [id number] [place] [address]- 2546 Feb, [facility] [address] [id number] [place] [address]- 254 Feb, [facility] [address] [id number] [place] [address]- 2546 Feb, [facility] [address] [id number] [place] [address]- 2546 Feb, [facility] [address] [id number] [place] [address]- 5351 Feb, [facility] [place] [facility] [address] [id number] [place] [address]- 1413 16 Feb, 2012 [facility] [place] [facility] [address] [id number] [place] [address]- 9455 16 Feb, 2012 [facility] [place] [facility] [address] [id number] [place] [address] 14 Feb, 2012 [facility] [place] [facility] [address] [id number] [place] [address] 11 Feb, 2012 [facility] [place] [facility] [address] [id number] [place] [address] Jan, [facility] [place] [facility] [address] [id number] [place] [address] Jan, [facility] [place] [facility] [address] [id number] [place] [address] Jan, [facility] [place] [facility] [address] [id number] [place] [address] Jan, [facility] [place] [facility] [address] [id number] [place] [address] Dec, [facility] [place] [facility] [address] [id number] [place] [address] Dec, [facility] [place] [facility] [address] [id number] [place] [address] Dec, [facility] [place] [facility] [address] [id number] [place] [address] Dec, [facility] [place] [facility] [address] [id number] [place] [address] Oct, [facility] [place] [facility] [address] [id number] [place] [address] Sep, [facility] [place] [facility] [address] [id number] [place] [address] Sep, [facility] [place] [facility] [id number] [place] [address] Aug, [facility] [id number] [place] [address] Jul, [facility] [id number], [place] [address] June, [facility] [id number], [place] [address] June, [facility] [id number], [place] [address] May, [facility] [id number] [place] [address] Apr, [facility] [id number] [place] [address] Mar, [facility] [id number] [place] [address] Mar, [facility] [id number], [place] [address] Feb, [facility] [id number] [place] [address] Dec, [facility] [id number], [place] [address] Nov, [facility] [id number], [place] [address] Sep, [facility] [id number], [place] [address] Aug, IMMUNIZATIONS No Known Immunizations SOCIAL HISTORY Never Assessed REASON FOR VISIT No answer PLAN OF CARE VITAL SIGNS MEDICATIONS Medication Instructions Dosage Frequency Start Date End Date Duration Status Blood Pressure Cuff - to check BP 24h Jul, Active RESULTS No Results PROCEDURES No Known procedures INSTRUCTIONS MEDICATIONS ADMINISTERED No Known Medications MEDICAL (GENERAL) HISTORY Type Description Date Medical History asthma Medical History headache Medical History chronic pain-low back with spasms Medical History anxiety Medical History depression Hospitalization History childbirth x 4
--- OUTSIDE RECORDS SUMMARY | 2017-05-11 21:20 | XMS REPORT | Continuity of Care Document ---
Author Author [facility] Address Unknown Phone Unavailable Allergies Active Description Code Type Severity Reaction Onset Reported/Identified Relationship to Patient Clinical Status Yes No Known Drug Allergies [id number] Drug Allergy Unknown N/A 07/20/2012 Medications There [...] MD 465.9 Upper Respiratory Infection 04/01/2010 DWIGHT QUALITY CONTROL CHEMIST, APRIL A 305.1 NONDEPENDENT TOBACCO USE DISORDER 04/01/2010 DWIGHT QUALITY CONTROL CHEMIST, APRIL A 465.9 Upper Respiratory Infection 04/01/2010 DWIGHT QUALITY CONTROL CHEMIST, APRIL A 305.1 NONDEPENDENT TOBACCO USE DISORDER 04/01/2010 DWIGHT QUALITY CONTROL CHEMIST, APRIL A 465.9 Upper Respiratory Infection 04/01/2010 [...] TUNNEL SYNDROME 05/14/2010 HUMA LOZOYA MD V72.31 Customer Assistance Representative Exam, Routine 05/14/2010 BALDERRAMA DO, BERRY K 354.0 CARPAL TUNNEL SYNDROME 05/14/2010 BALDERRAMA DO BERRY K V72.31 Customer Assistance Representative Exam, Routine 05/14/2010 BALDERRAMA DO, BERRY K 354.0 CARPAL TUNNEL SYNDROME 05/14/2010 BALDERRAMA DO, BERRY K V72.31 Customer Assistance Representative Exam, Routine 05/14/2010 DEVORA PINEDO, HUMA 354.0 CARPAL TUNNEL SYNDROME 05/14/2010 DEVORA PINEDO, HUMA V72.31 Customer Assistance Representative Exam, Routine 05/14/2010 354.0 CARPAL TUNNEL SYNDROME 05/14/2010 V72.31 Customer Assistance Representative Exam, Routine 05/14/2010 DEVORA PINEDO, HUMA 354.0 CARPAL TUNNEL SYNDROME 05/14/2010 DEVORA PINEDO, HUMA V72.31 Customer Assistance Representative Exam, Routine 05/14/2010 DEVORA PINEDO, HUMA 354.0 CARPAL TUNNEL SYNDROME 05/14/2010 DEVORA PINEDO, HUMA V72.31 Customer Assistance Representative Exam, Routine 05/14/2010 DEVORA PINEDO, HUMA 354.0 CARPAL TUNNEL SYNDROME 05/14/2010 HUMA LOZOYA MD V72.31 Customer Assistance Representative Exam, Routine 05/14/2010 DEVORA PINEDO, HUMA 354.0 CARPAL TUNNEL SYNDROME 05/14/2010 HUMA LOZOYA MD V72.31 Customer Assistance Representative Exam, Routine 05/14/2010 HUMA LOZOYA MD 354.0 CARPAL TUNNEL SYNDROME 05/14/2010 HUMA LOZOYA MD V72.31 Customer Assistance Representative Exam, Routine 05/14/2010 DWIGHT FAIRCHILD, APRIL A 354.0 CARPAL TUNNEL SYNDROME 05/14/2010 APRIL QUINTANILLA APRN A V72.31 Customer Assistance Representative Exam, Routine 05/14/2010 DWIGHT FAIRCHILD, APRIL A 354.0 CARPAL TUNNEL SYNDROME 05/14/2010 APRIL QUINTANILLA APRN A V72.31 Customer Assistance Representative Exam, Routine 05/14/2010 BALDERRAMA DO, BERRY K 354.0 CARPAL TUNNEL SYNDROME 05/14/2010 BALDERRAMA DO, BERRY K V72.31 Customer Assistance Representative Exam, Routine 05/14/2010 BALDERRAMA DO, BERRY K 354.0 CARPAL TUNNEL SYNDROME 05/14/2010 BALDERRAMA DO, BERRY K V72.31 Customer Assistance Representative Exam, Routine 05/14/2010 DEVORA PINEDO, HUMA 354.0 CARPAL TUNNEL SYNDROME 05/14/2010 HUMA LOZOYA MD V72.31 Customer Assistance Representative Exam, Routine 05/14/2010 DEVORA PINEDO, HUMA 354.0 CARPAL TUNNEL SYNDROME 05/14/2010 HUMA LOZOYA MD V72.31 Customer Assistance Representative Exam, Routine 05/14/2010 ADDIS SPRINGER APRN 354.0 CARPAL TUNNEL SYNDROME 05/14/2010 ADDIS SPRINGER APRN A V72.31 Customer Assistance Representative Exam, Routine 05/14/2010 HUMA LOZOYA MD 354.0 CARPAL TUNNEL SYNDROME 05/14/2010 HUMA LOZOYA MD V72.31 Customer Assistance Representative Exam, Routine 05/14/2010 HUMA LOZOYA MD 354.0 CARPAL TUNNEL SYNDROME 05/14/2010 HUMA LOZOYA MD V72.31 Customer Assistance Representative Exam, Routine 05/14/2010 354.0 CARPAL TUNNEL SYNDROME 05/14/2010 V72.31 Customer Assistance Representative Exam, Routine 05/14/2010 HUMA LOZOYA MD 354.0 CARPAL TUNNEL SYNDROME 05/14/2010 HUMA LOZOYA MD V72.31 Customer Assistance Representative Exam, Routine 06/09/2010 HUMA LOZOYA MD 381.81 [...] Joint Involving Forearm 06/16/2010 BERRY BALDERRAMA DO 71Oliiva.43 Pain In Joint Involving Forearm 06/16/2010 HUMA [...] BERRY K 782.3 Edema 08/12/2010 BALDERRAMA DO, BRERY K 786.02 Orthopnea 08/12/2010 BALDERRAMA DO, BERRY K 303.03 Acute Alcoholic Intoxication In Alcoholism In Remission 08/12/2010 BALDERRMAA DO BERRY K 305.73 NONDEPENDENT AMPHETAMINE OR [...] DO, BERRY K 786.02 Orthopnea 08/12/2010 HUMA LOZOAY MD 303.03 Acute Alcoholic Intoxication In Alcoholism [...] CERVICAL CANCER SCREENING (PAP SMEAR) 02/19/2012 ADDIS SPRIGNER APRN 627.2 MENOPAUSAL SX 02/19/2012 ADDIS SPRINGER [...] 272.4 OTHER AND UNSPECIFIED HYPERLIPIDEMIA 03/28/2012 HUMA LZOOYA MD 272.4 OTHER AND UNSPECIFIED HYPERLIPIDEMIA 03/28/2012 [...] LOZOYA MD 728.85 SPASM OF MUSCLE 09/29/2012 APRIL QUINTANILLA [...] OR FROM OTHER STAIRS OR STEPS 06/02/2013 ADDIS SPRINGER APRN 723.1 CERVICALGIA 06/02/2013 ADDIS SPRINGER [...] DO Ot V62.85 HOMICIDAL IDEATION 11/20/2013 DANICA LERNER MD Ot 305.00 ALCOHOL ABUSE-UNSPEC 11/20/2013 DANICA [...] LOZOYA MD Ot V76.12 03/16/2014 APRIL QUINTANILLA QUALITY CONTROL CHEMIST Ot 733.90 03/16/2014 APRIL QUINTANILLA A QUALITY CONTROL CHEMIST Ot V65.42 03/16/2014 DWIGHT APRIL A QUALITY CONTROL CHEMIST Ot V65.49 03/16/2014 DWIGHT APRIL A QUALITY CONTROL CHEMIST Ot V76.12 03/16/2014 DWIGHT APRIL A QUALITY CONTROL CHEMIST Ot V76.51 03/16/2014 DWIGHT, APRIL A QUALITY CONTROL CHEMIST Ot V82.81 03/19/2014 HUMA LOZOYA MD V76.10 BREAST CANCER SCREENING 05/04/2015 FINESSE MOY MD Ot A41.9 SEPSIS, UNSPECIFIED ORGANISM 05/04/2015 [...] STATUS 03/03/2016 LI LOPEZ APRN Ot Z79.82 HALFWAY (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 OF ASPIRIN 03/03/2016 LI LOPEZ APRN Ot Z79.899 OTHER HALFWAY (CURRENT) DRUG THERAPY 03/03/2016 Ot V76.12 OTH SCREEN MAMMO-MALIGN NEOPLASM OF ETIENNE 03/03/2016 DEVORA PINEDO, HUMA Sparks Ot V76.12 OTH SCREEN MAMMO-MALIGN NEOPLASM OF ETIENNE 03/03/2016 APRIL QUINTANILLA QUALITY CONTROL CHEMIST Ot 733.90 BONE CARTILAGE DIS NOS 03/03/2016 APRIL QUINTANILLA QUALITY CONTROL CHEMIST Ot V65.42 COUNSELING ON SUBSTANCE USE AND ABUSE 03/03/2016 APRIL QUINTANILLA QUALITY CONTROL CHEMIST Ot V65.49 OTHER SPECIFIED COUNSELING 03/03/2016 APRIL QUINTANILLA QUALITY CONTROL CHEMIST Ot V76.12 OTH SCREEN MAMMO-MALIGN NEOPLASM OF ETIENNE 03/03/2016 APRIL QUINTANILLA QUALITY CONTROL CHEMIST Ot V76.51 SCREEN MAL NEOP-COLON 03/03/2016 APRIL QUINTANILLA QUALITY CONTROL CHEMIST Ot V82.81 SCREENING FOR OSTEOPOROSIS 03/03/2016 Ot V76.12 OTH SCREEN MAMMO-MALIGN NEOPLASM OF ETIENNE 03/03/2016 HUMA LOZOYA MD Ot V76.12 OTH SCREEN MAMMO-MALIGN NEOPLASM OF ETIENNE 03/03/2016 APRIL QUINTANILLA QUALITY CONTROL CHEMIST Ot 733.90 BONE CARTILAGE DIS NOS 03/03/2016 APRIL QUINTANILLA QUALITY CONTROL CHEMIST Ot V65.42 COUNSELING ON SUBSTANCE USE AND ABUSE 03/03/2016 APRIL QUINTANILLA QUALITY CONTROL CHEMIST Ot V65.49 OTHER SPECIFIED COUNSELING 03/03/2016 APRIL QUINTANILLA QUALITY CONTROL CHEMIST Ot V76.12 OTH SCREEN MAMMO-MALIGN NEOPLASM OF ETIENNE 03/03/2016 APRIL QUINTANILLA QUALITY CONTROL CHEMIST Ot V76.51 SCREEN MAL NEOP-COLON 03/03/2016 APRIL QUINTANILLA QUALITY CONTROL CHEMIST Ot V82.81 SCREENING FOR OSTEOPOROSIS 03/04/2016 LI LOEPZ APRN Ot J44.9 CHRONIC OBSTRUCTIVE PULMONARY DISEASE, U 03/04/2016 LI LOPEZ APRN Ot S82.401A UNSP FRACTURE OF SHAFT OF RIGHT FIBULA, 03/04/2016 LI LOPEZ APRN Ot S99.911A UNSPECIFIED INJURY OF RIGHT ANKLE, INITI 03/04/2016 LI LOPEZ APRN Ot X58.XXXA EXPOSURE TO OTHER SPECIFIED FACTORS, INI 03/04/2016 LI LOPEZ APRN Ot Y92.[address] IN [facility] NON-INSTITUT (PRIVATE 03/04/2016 LI LOPEZ APRN Ot Y99.8 OTHER EXTERNAL CAUSE STATUS 03/04/2016 LI LOEPZ APRN Ot Z79.82 RAG CUTTING MACHINE FEEDER (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 OF ASPIRIN 03/04/2016 LI LOPEZ APRN Ot Z79.899 OTHER HALFWAY (CURRENT) DRUG THERAPY 03/05/2016 LI LOPEZ APRN Ot J44.9 CHRONIC OBSTRUCTIVE PULMONARY DISEASE, U 03/05/2016 LI LOPEZ APRN Ot S82.401A UNSP FRACTURE OF SHAFT OF RIGHT FIBULA, 03/05/2016 LI LOPEZ APRN Ot S99.911A UNSPECIFIED INJURY OF RIGHT ANKLE, INITI 03/05/2016 LI LOPEZ APRN Ot X58.XXXA EXPOSURE TO OTHER SPECIFIED FACTORS, INI 03/05/2016 LI LOPEZ APRN Ot Y92.[address] IN [facility] NON-[facility] (PRIVATE 03/05/2016 LI LOPEZ APRN Ot Y99.8 OTHER EXTERNAL CAUSE STATUS 03/05/2016 LI LOPEZ APRN Ot Z79.82 HALFWAY (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 OF ASPIRIN 03/05/2016 LI LOPEZ APRN Ot Z79.899 OTHER RAG CUTTING MACHINE FEEDER (CURRENT) DRUG THERAPY 07/11/2016 MELISSA GARCIA Ot F10.129 ALCOHOL ABUSE WITH INTOXICATION, UNSPECI 07/11/2016 MELISSA GARCIA Ot F17.210 NICOTINE DEPENDENCE, CIGARETTES, UNCOMPL 07/11/2016 MELISSA GARCIA Ot J44.9 CHRONIC OBSTRUCTIVE PULMONARY DISEASE, U 07/11/2016 MELISSA GARCIA Ot Y90.6 BLOOD ALCOHOL LEVEL OF 120-199 MG/100 ML 07/11/2016 MELISSA GARCIA Ot Z79.82 RAG CUTTING MACHINE FEEDER (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 OF ASPIRIN 07/11/2016 MELISSA GARCIA Ot Z79.899 OTHER RAG CUTTING MACHINE FEEDER (CURRENT) DRUG THERAPY 04/06/2017 MALIA JOLLY MD Ot F10.129 ALCOHOL ABUSE WITH INTOXICATION, UNSPECI 04/06/2017 RIK PINEDO, MALIA T Ot F12.10 CANNABIS ABUSE, UNCOMPLICATED 04/06/2017 MALIA JOLLY MD Ot F14.10 COCAINE ABUSE, UNCOMPLICATED 04/06/2017 MALIA JOLLY MD Ot F17.210 NICOTINE DEPENDENCE, CIGARETTES, UNCOMPL 04/06/2017 MALIA JOLLY MD Ot F31.9 BIPOLAR DISORDER, UNSPECIFIED 04/06/2017 MALIA JOLLY MD Ot F41.9 ANXIETY DISORDER, UNSPECIFIED 04/06/2017 MALIA JOLLY MD Ot G47.30 SLEEP APNEA, UNSPECIFIED 04/06/2017 MALIA JOLLY MD Ot J44.9 CHRONIC OBSTRUCTIVE PULMONARY DISEASE, U 04/06/2017 MALIA JOLLY MD Ot M25.472 EFFUSION, LEFT ANKLE 04/06/2017 MALIA JOLLY MD Ot S82.831A OTH FRACTURE OF UPPER AND LOWER END OF R 04/06/2017 MALIA JOLLY MD Ot Z79.82 HALFWAY (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 OF ASPIRIN 04/06/2017 MALIA JOLLY MD Ot Z80.8 FAMILY HISTORY OF MALIGNANT NEOPLASM OF 04/06/2017 MALIA JOLLY MD Ot Z91.5 PERSONAL HISTORY OF SELF-HARM 04/06/2017 MELISSA GARCIA Ot F12.10 CANNABIS ABUSE, UNCOMPLICATED 04/06/2017 MELISSA GARCIA Ot F19.10 OTHER PSYCHOACTIVE SUBSTANCE ABUSE, UNCO 04/06/2017 MELISSA GARCIA Ot F31.9 BIPOLAR DISORDER, UNSPECIFIED 04/06/2017 MELISSA GARCIA Ot F41.9 ANXIETY DISORDER, UNSPECIFIED 04/06/2017 MELISSA GARCIA Ot G47.30 SLEEP APNEA, UNSPECIFIED 04/06/2017 MELISSA GARCIA Ot J44.9 CHRONIC OBSTRUCTIVE PULMONARY DISEASE, U 04/06/2017 MELISSA GARCIA Ot S82.891A OTH FRACTURE OF RIGHT LOWER LEG, INIT FO 04/06/2017 MELISSA GARCIA Ot X58.XXXA EXPOSURE TO OTHER SPECIFIED FACTORS, INI 04/06/2017 MELISSA GARCIA Ot Z79.82 HALFWAY (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 OF ASPIRIN 04/06/2017 MELISSA GARCIA Ot Z80.8 FAMILY HISTORY OF MALIGNANT NEOPLASM OF 04/06/2017 MELISSA GARCIA Ot Z91.5 PERSONAL HISTORY OF SELF-HARM 04/08/2017 MALIA JOLLY MD Ot F10.129 ALCOHOL ABUSE WITH INTOXICATION, UNSPECI 04/08/2017 MALIA JOLLY MD Ot F12.10 CANNABIS ABUSE, UNCOMPLICATED 04/08/2017 MALIA JOLLY MD Ot F14.10 COCAINE ABUSE, UNCOMPLICATED 04/08/2017 MALIA JOLLY MD Ot F17.210 NICOTINE DEPENDENCE, CIGARETTES, UNCOMPL 04/08/2017 MALIA JOLLY MD Ot F31.9 BIPOLAR DISORDER, UNSPECIFIED 04/08/2017 MALIA JOLLY MD Ot F41.9 ANXIETY DISORDER, UNSPECIFIED 04/08/2017 MALIA JOLLY MD Ot G47.30 SLEEP APNEA, UNSPECIFIED 04/08/2017 MALIA JOLLY MD Ot J44.9 CHRONIC OBSTRUCTIVE PULMONARY DISEASE, U 04/08/2017 MALIA JOLLY MD Ot M25.472 EFFUSION, LEFT ANKLE 04/08/2017 MALIA JOLLY MD Ot S82.831A OTH FRACTURE OF UPPER AND LOWER END OF R 04/08/2017 MALIA JOLLY MD Ot Z79.82 RAG CUTTING MACHINE FEEDER (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 OF ASPIRIN 04/08/2017 MALIA JOLLY MD Ot Z80.8 FAMILY HISTORY OF MALIGNANT NEOPLASM OF 04/08/2017 MALIA JOLLY MD Ot Z91.5 PERSONAL HISTORY OF SELF-HARM 04/08/2017 MELISSA GARCIA Ot F12.10 CANNABIS ABUSE, UNCOMPLICATED 04/08/2017 MELISSA GARCIA Ot F19.10 OTHER PSYCHOACTIVE SUBSTANCE ABUSE, UNCO 04/08/2017 MELISSA GARCIA Ot F31.9 BIPOLAR DISORDER, UNSPECIFIED 04/08/2017 MELISSA GARCIA Ot F41.9 ANXIETY DISORDER, UNSPECIFIED 04/08/2017 MELISSA GARCIA Ot G47.30 SLEEP APNEA, UNSPECIFIED 04/08/2017 MELISSA GARCIA Ot J44.9 CHRONIC OBSTRUCTIVE PULMONARY DISEASE, U 04/08/2017 MELISSA GARCIA Ot S82.891A OTH FRACTURE OF RIGHT LOWER LEG, INIT FO 04/08/2017 MELISSA GARCIA Ot X58.XXXA EXPOSURE TO OTHER SPECIFIED FACTORS, INI 04/08/2017 MELISSA GARCIA Ot Z79.82 RAG CUTTING MACHINE FEEDER (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 OF ASPIRIN 04/08/2017 MELISSA GARCIA Ot Z80.8 FAMILY HISTORY OF MALIGNANT NEOPLASM OF 04/08/2017 GENOVEVA GREEN, MELISSA Dubose Ot Z91.5 PERSONAL HISTORY OF SELF-HARM Procedures Code Description Performed By Performed On [facility][1] 10/09/2011 76743 UA W/ CULTURE IF INDICATED 02/19/2012 86368 ROUTINE VENIPUNCTURE 02/22/2012 23541 CBC 02/22/2012 76162 LIPID PANEL 02/22/2012 67832 CMP 02/22/2012 4382899 GFR CALC (RESULT ONLY) 02/22/2012 33608 TSH 02/23/2012 77871 MAMMOGRAM, SCREENING 02/23/2012 92037 HEMOCCULT 02/23/2012 41701 PAP SMEAR 02/23/2012 Q0091 PAP SMEAR OBTAIN SMEAR 02/23/2012 38239 URINE DRUG SCREEN (IN-HOUSE ) 01/18/2013 24472 MAMMOGRAM, SCREENING 01/19/2013 URINEDRUG URINE DRUG SCREEN (CON'F ) 01/19/2013 39533 BONE DENSITY, DEXA 04/17/2013 GENERAL S Kido, Ken 04/17/2013 57556 BONE MINERAL DENSITY, HEEL US (IN HOUSE) 04/17/2013 41471 XRAY CERVICAL SPINE, 2 OR 3 VIEWS 06/02/2013 64254 ROUTINE VENIPUNCTURE 02/16/2014 57386 MAMMOGRAM, SCREENING 02/16/2014 1051906 GFR CALC (RESULT ONLY) 02/16/2014 22629 CMP 02/16/2014 Results Test Result Range Complete [...] NRG Blood band neutrophils/100 leukocytes 0 % NRG Manual blood lymphocytes/100 leukocytes 34 % NRG Manual eosinophils/100 leukocytes in nose 1 % NRG Manual blood basophils/100 leukocytes 0 % NR Blood erythrocyte morphology finding identification [facility] Comprehensive metabolic panel - 07/11/16 16:13 Serum [...] Status Pt. Type Provider Facility Loc./Unit Complaint [id number] 02/16/2014 11:31:00 02/16/2014 23:59:59 CLS Outpatient HUMA LOZOYA MD [id number] 12/02/2013 06:43:00 12/02/2013 23:59:59 CLS Outpatient HUMA LOZOYA MD [id number] 11/27/2013 11:19:00 11/27/2013 23:59:59 CLS Outpatient HUMA LOZOYA MD [id number] 10/30/2013 12:59:00 10/30/2013 23:59:59 CLS Outpatient ADDIS SPRINGER APRN [id number] 09/18/2013 13:40:00 09/18/2013 23:59:59 CLS Outpatient HUMA LOZOYA MD [id number] 07/25/2013 16:53:00 07/25/2013 23:59:59 CLS Outpatient HUMA LOZOYA MD [id number] 06/02/2013 11:36:00 06/02/2013 23:59:59 CLS Outpatient BERRY BALDERRAMA DO [id number] 06/02/2013 11:36:00 06/02/2013 23:59:59 CLS Outpatient BERRY BALDERRAMA DO [id number] 04/17/2013 10:34:00 04/17/2013 23:59:59 CLS Outpatient APRIL QUINTANILLA APRN [id number] 04/17/2013 10:34:00 04/17/2013 23:59:59 CLS Outpatient APRIL QUINTANILLA APRN [id number] 03/02/2013 13:45:00 03/02/2013 23:59:59 CLS Outpatient HUMA LOZOYA MD [id number] 03/02/2013 13:45:00 03/02/2013 23:59:59 CLS Outpatient HUMA LOZOYA MD [id number] 01/18/2013 14:08:00 01/18/2013 23:59:59 CLS Outpatient HUMA LOZOYA MD [id number] 12/19/2012 11:31:00 12/19/2012 23:59:59 CLS Outpatient HUMA LOZOYA MD [id number] 09/29/2012 16:24:00 09/29/2012 23:59:59 CLS Outpatient HUMA LOZOYA MD [id number] 03/28/2012 11:42:00 03/28/2012 23:59:59 CLS Outpatient HUMA LOZOYA MD [id number] 02/22/2012 09:43:00 02/22/2012 23:59:59 CLS Outpatient BERRY BALDERRAMA DO [id number] 02/19/2012 13:27:00 02/19/2012 23:59:59 CLS Outpatient BERRY BALDERRAMA DO [id number] 10/02/2011 09:36:00 10/02/2011 23:59:59 [place] [id number] 10/02/2011 09:36:00 10/02/2011 23:59:59 CLS Outpatient [id number] 06/24/2012 13:29:00 Document Registration [id number] 04/06/2017 18:38:00 04/06/2017 20:05:00 DIS Emergency MELISSA GARCIA [facility] ER ANKLE PAIN [id number] 04/06/2017 12:39:00 04/06/2017 15:08:00 DIS Emergency RIK PINEDO, MALIA Atkins [facility] ER DRUG/ETOH ABUSE [id number] 07/11/2016 16:09:00 07/11/2016 19:12:00 DIS Emergency MELISSA GARCIA [facility] ER ALCOHOL INTOX [id number] 03/03/2016 15:38:00 03/03/2016 16:45:00 DIS Emergency LI LOPEZ Jyoti QUALITY CONTROL CHEMIST Via [facility] ER R ANKLE PAIN [id number] 05/02/2015 16:39:00 05/04/2015 13:14:00 DIS Inpatient CHINMAY PINEDO, FINESSE Trammell Via [facility] 4TH RLL PNUEMONIA [id number] 11/19/2013 22:15:00 11/20/2013 10:50:00 DIS Inpatient YANN PINEDO, DANICA Tanner [facility] ICU ETOH INTOXICATION, AMS [id number] 10/02/2013 15:43:00 10/03/2013 14:03:00 DIS Inpatient BERRY BALDERRAMA DO K [facility] ICU SUICIDAL/HOMICIDAL IDEATION, ETOH INTOXICATION [id number] 04/27/2013 09:25:00 04/27/2013 23:59:59 CLS Outpatient APRIL QUINTANILLA QUALITY CONTROL CHEMIST Via [facility] RAD OSTEOPENIA [id number] 03/06/2013 10:54:00 03/06/2013 23:59:59 CLS Outpatient HUMA LOZOYA MD [facility] RAD SCREENING [id number] 11/14/2012 15:16:00 11/14/2012 23:59:59 CLS Outpatient [id number] 09/19/2012 13:31:00 09/19/2012 23:59:59 CLS Outpatient [id number] 08/22/2012 15:17:00 08/22/2012 23:59:59 CLS Outpatient [id number] 08/04/2012 14:36:00 08/04/2012 23:59:59 CLS Outpatient [id number] 07/20/2012 12:07:00 07/20/2012 13:45:00 DIS Emergency CURTIS LEDESMA, FRANCISCO Montes [facility] ER FELL INJ L ARM [id number] 03/16/2014 10:56:00 Document Registration [id number] 03/04/2012 10:23:00 Document Registration [id number] 01/13/2013 16:48:57 ACT Document Registration [id number] 04/08/2017 14:00:00 04/08/2017 23:59:59 [facility] Out[facility] DEVORA PINEDO[facility]
== END | disposition left against medical advice (07) ==
LOC: EDUNIT# 21:11 → ER 21:12
DX: R06.02 Shortness of breath (principal)
CPT/HCPCS: 99281; 99284

== ENCOUNTER 2017-05-19 17:04 | Emergency (ER) | payer MEDICAID ==
[~2017-05-19] VITALS: Ht 152.4 cm; Wt 40.8 kg
[2017-05-19 17:09] VITALS: BP 129/96
--- OUTSIDE RECORDS SUMMARY | 2017-05-20 11:28 | XMS REPORT ---
Author Author HUMA LOZOYA [facility] Address [address] [place] [address] Care Team Providers Care Unix System Administrator Name Role Phone HUMA LOZOYA Unavailable PROBLEMS Type Condition ICD9-CM Code [id number] Code Onset Dates Condition Status SNOMED Code Problem Other and unspecified hyperlipidemia 272.4 Active 71163583 Problem Alcoholism F10.20 Active 9003764 Problem Asthma J45.909 Active 801600995 Problem Other chronic pain G89.29 Active 29810939 Problem Arthritis M19.90 Active 3112475 Problem Closed fracture of shaft of right fibula, unspecified fracture morphology, initial encounter S82.401A Active 25770960 Problem Bipolar disorder F31.9 Active 53851871 Problem Arthropathy, unspecified M12.9 Active 641396363 Problem Major depressive disorder, single episode F32.9 Active [id number] ALLERGIES No Known Allergies ENCOUNTERS Encounter Location Date Diagnosis [place] [address] [address] Apr, [place] [address] [address]- 6935 Apr, Injury of right ankle, initial encounter S99.911A and Encounter for immunization Z23 [place] [address] [place] [id number] [place] [address] 35533- 6334 Dec, [place] [address] [address]- 7092 Nov, Pain in right ankle and joints of right foot M25.571 ; Other chronic pain G89.29 and Post-traumatic arthritis of right ankle M19.171 [place] [address] [place] [id number] [place] [address] 52590- 6178 Oct, Arthritis M19.90 [place] [address], [place] [address] 13 Aug, 2016 Arthritis M19.90 [facility] [address] [place] [id number] [place] [address] 62694- 4065 Aug, [facility] [address] [place] [id number] [place] [address] 66600- 5378 Jul, [facility] [address] [place] [id number] [place] [address] 55556- 2618 June, Arthropathy, unspecified M12.9 [facility] [address] [place] [id number] [place] [address] 23341- 0841 May, Asthma J45.909 and Major depressive disorder, single episode F32.9 [facility] [address] [place] [id number] [place] [address] 56053- 6480 16 Mar, 2016 Closed fracture of shaft of right fibula, unspecified fracture morphology, initial encounter S82.401A [facility] [address] [place] [id number] [place] [address] 69205- 7466 Feb, [facility] [address] [place] [id number] [place] [address] 06292- 3627 Feb, [facility] [id number] [place] [address] 11369- 1233 Nov, [facility] [id number] [place] [address] 15750- 8747 Nov, Bipolar disorder F31.9 ; Encounter for immunization Z23 and Asthma J45.909 [facility] [address], [place] [address]- 3691 Aug, [facility] [address] [place] [id number] [place] [address] 72631- 2662 May, [facility] [address], [place] [address]- 3461 Apr, [facility] [address] [place] [id number] [place] [address] 73127- 1504 Apr, [facility] [address] [place] [id number] [place] [address] 14676- 3897 Apr, URI (upper respiratory infection) J06.9 and Bipolar disorder F31.9 [facility] [address] [place] [id number] [place] [address] 68480- 1595 Feb, [facility] [address] 42253- 2239 Feb, Asthma J45.909 and Alcoholism F10.20 [facility] [address] [place] [id number] [place] [address] 12680- 6966 Jan, [facility] [address] 86603- 2011 Jan, [facility] [address] [place] [id number] [place] [address] 86540- 0952 Jan, [facility] [address] [place] [id number] [place] [address] 48537- 3266 Nov, Alcoholism F10.20 and Anxiety F41.9 [facility] [address] [place] [id number] [place] [address] 92511- 6380 Jul, Anxiety 300.00 and Arthropathy 716.90 [facility] [address] [place] [id number] [place] [address] 50351- 8490 Jul, [facility] [address] 39511- 4257 Jul, Anxiety state 300.00 [facility] [address] [place] [id number] [place] [address] 07288- 3083 May, [facility] [address] 48088- 2151 May, [facility] [address] [place] [id number] [place] [address] 73907- 4944 Apr, [facility] [address] [place] [address]- 1849 Apr, [facility] [place] [facility] [address] [id number] [place] [address]- 4327 Mar, [facility] [place] [facility] [address] [id number] [place] [address]- 2786 Mar, [facility] [place] [facility] [address] [id number] [place] [address]- 3666 Feb, [facility] [place] [facility] [address] [id number] [place] [address]- 2987 Feb, [facility] [place] [facility] [address] [id number] [place] [address]- 3259 Feb, [facility] [place] [facility] [address] [id number] [place] [address]- 2436 Feb, [facility] [place] [facility] [address] [id number] [place] [address]- 1659 Jan, [facility] [place] [facility] [address] [id number] [place] [address]- 5194 Jan, [facility] [place] [facility] [address] [id number] [place] 2157 Jan, [facility] [place] [facility] [address] [facility] [id number] [place] [address]- 1514 Jan, [facility] [place] [facility] [address] [id number] [place] [address]- 0559 Nov, [facility] [place] [facility] [address] [id number] [place] [address]- 5552 Nov, [facility] [place] [facility] [address] [id number] [place] [address]- 4937 Nov, [facility] [place] [facility] [address] [id number] [place] 9689 Nov, [facility] [place] [facility] [address] [id number] [place] [address]- 0905 Nov, [facility] [place] [facility] [address] [id number] [place] [address]- 8934 Nov, [facility] [place] [facility] [address] [id number] [place] [address]- 1282 Nov, [facility] [place] [facility] [address] [id number] [place] [address]- 1546 Nov, [facility] [place] [facility] [address] [id number] [place] [address]- 2277 Nov, [facility] [place] [facility] [address] [id number] [place] [address]- 3661 Nov, [facility] [place] [facility] [address] [id number] [place] [address]- 6770 Nov, [facility] [place] [facility] [address] [id number] [place] [address]- 7987 Nov, [facility] [place] [facility] [address] [id number] [place] [address]- 1301 Nov, [facility] [place] [facility] [address] [id number] [place] [address]- 8033 30 Oct, 2013 [facility] [place] [facility] [address] [id number] [place] [address]- 4969 30 Oct, 2013 [facility] [place] [facility] [address] [id number] [place] [address]- 1363 26 Oct, 2013 [facility] [place] [facility] [address] [id number] [place] [address]- 7852 26 Sep, 2013 [facility] [place] [facility] [address] [id number] [place] [address]- 3389 08 Oct, 2013 [facility] [place] [facility] [address] [id number] [place] [address]- 1706 08 Oct, 2013 [facility] [place] [facility] [address] [id number] [place] [address]- 9608 04 Oct, 2013 [facility] [place] [facility] [address] [id number] [place] [address]- 8074 Oct, 2013 [facility] [place] [facility] [address] [id number] [place] [address]- 0106 Oct, 2013 [facility] [place] [facility] [address] [id number] [place] [address]- 7346 Oct, [facility] [place] [facility] [address] [id number] [place] [address]- 5101 Oct, [facility] [place] [facility] [address] [id number] [place] [address]- 5240 Oct, [facility] [place] [facility] [address] [id number] [place] [address]- 8089 Sep, [facility] [place] [facility] [address] [id number] [place] [address]- 4526 Sep, [facility] [place] [facility] [address] [id number] [place] [address]- 0278 Sep, [facility] [place] [facility] [address] [id number] [place] [address]- 1024 Sep, [facility] [place] [facility] [address] [id number] [place] [address]- 1343 Sep, [facility] [place] [facility] [address] [id number] [place] [address]- 2774 Sep, [facility] [place] [facility] [address] [id number] [place] [address]- 2561 Sep, [facility] [place] [facility] [address] [id number] [place] [address]- 7750 Sep, [facility] [place] [facility] [address] [id number] [place] [address]- 7642 Aug, [facility] [place] [facility] [address] [id number] [place] [address]- 1093 Aug, [facility] [place] [facility] [address] [id number] [place] [address]- 8290 Aug, [facility] [place] [facility] [address] [id number] [place] [address]- 3720 Aug, [facility] [place] [facility] [address] [id number] [place] [address]- 5885 Jul, [facility] [place] [facility] [address] [id number] [place] [address]- 3315 Jul, [facility] [place] [facility] [address] [id number] [place] [address]- 2727 Jul, [facility] [place] [facility] [address] [id number] [place] [address]- 0822 Jul, [facility] [place] [facility] [address] [id number] [place] [address]- 5668 Jul, [facility] [place] [facility] [address] [id number] [place] [address]- 5186 Jul, [facility] [place] [facility] [address] [id number] [place] [address]- 5453 June, [facility] [place] [facility] [address] [id number] [place] [address]- 7774 June, [facility] [place] [facility] [address] [id number] [place] [address]- 7941 June, [facility] [place] [facility] [address] [id number] [place] [address]- 2985 June, [facility] [place] [facility] [address] [id number] [place] [address]- 9254 June, [facility] [place] [facility] [address] [id number] [place] [address]- 2457 June, [facility] [place] [facility] [address] [id number] [place] [address]- 5106 May, [facility] [place] [facility] [address] [id number] [place] [address]- 7009 May, [facility] [place] [facility] [address] [id number] [place] [address]- 6127 May, [facility] [place] [facility] [address] [id number] [place] [address]- 1507 May, [facility] [place] [facility] [address] [id number] [place] [address]- 2505 May, [facility] [place] [facility] [address] [id number] [place] [address]- 1999 May, [facility] [place] [facility] [address] [id number] [place] [address]- 0506 May, [facility] [place] [facility] [address] [id number] [place] [address]- 0512 May, [facility] [place] [facility] [address] [id number] [place] [address]- 5130 May, [facility] [place] [facility] [address] [id number] [place] [address]- 0166 May, [facility] [place] [facility] [address] [id number] [place] [address]- 2578 Apr, [facility] [place] [facility] [address] [id number] [place] [address]- 8717 Apr, [facility] [place] [facility] [address] [id number] [place] [address]- 0937 Apr, [facility] [place] [facility] [address] [id number] [place] [address]- 3277 Apr, [facility] [place] [facility] [address] [id number] [place] [address]- 4880 Apr, [facility] [place] [facility] [address] [id number] [place] [address]- 1148 Apr, [facility] [place] [facility] [address] [id number] [place] [address]- 0698 Apr, [facility] [place] [facility] [address] [id number] [place] [address]- 6801 Apr, [facility] [place] [facility] [address] [id number] [place] [address]- 2978 Apr, [facility] [place] [facility] [address] [id number] [place] [address]- 3108 Apr, [facility] [place] [facility] [address] [id number] [place] [address]- 0725 Apr, [facility] [place] [facility] [address] [id number] [place] [address]- 7186 Apr, [facility] [place] [facility] [address] [id number] [place] [address]- 9617 Mar, [facility] [place] [facility] [address] [id number] [place] [address]- 5971 Mar, [facility] [place] [facility] [address] [id number] [place] [address]- 5725 Mar, [facility] [place] [facility] [address] [id number] [place] [address]- 3613 Mar, [facility] [place] [facility] [address] [id number] [place] [address]- 0055 Feb, [facility] [place] [facility] [address] [id number] [place] [address]- 7240 Feb, [facility] [place] [facility] [address] [id number] [place] [address]- 8934 Feb, [facility] [place] [facility] [address] [id number] [place] [address]- 2474 Feb, [facility] [place] [facility] [address] [id number], [place] [address]- 2652 Feb, [facility] [place] [facility] [address] [id number] [place] [address]- 0298 Feb, [facility] [place] [facility] [address] [id number] [place] [address]- 3109 Feb, [facility] [place] [facility] [address] [id number] [place] [address]- 8315 Feb, [facility] [place] [facility] [address] [id number] [place] [address]- 0945 Feb, [facility] [address] [id number] [place] [address]- 4538 Feb, [facility] [address] [id number] [place] [address]- 1894 Jan, [facility] [place] [facility] [address] [id number] [place] [address]- 9000 Jan, [facility] [address] [id number] [place] [address]- 1997 Jan, [facility] [address] [id number] [place] [address]- 3187 Jan, [facility] [address] [id number] [place] [address]- 6232 Jan, [facility] [address] [id number] [place] [address]- 6956 Jan, [facility] [address] [id number] [place] [address]- 0507 Jan, [facility] [address] [id number] [place] [address]- 9456 Jan, [facility] [address] [id number] [place] [address]- 1285 Jan, [facility] [place] [facility] [address] [id number], [place] [address]- 8012 Dec, [facility] [place] [facility] [address] [id number] [place] [address]- 3372 Dec, [facility] [place] [facility] [address] [id number] [place] [address]- 6606 Dec, [facility] [place] [facility] [address] [id number] [place] [address]- 6050 Dec, [facility] [place] [facility] [address] [id number] [place] [address]- 7818 Nov, [facility] [place] [facility] [address] [id number] [place] [address]- 2959 Nov, [facility] [place] [facility] [address] [id number] [place]456 Nov, [facility] [place] [facility] [address] [id number] [place] [address]- 6581 Nov, [facility] [place] [facility] [address] [id number] [place] [address]- 5431 Nov, [facility] [place] [facility] [address] [id number] [place] [address]- 0559 Nov, [facility] [place] [facility] [address] [id number] [place] [address]- 9516 Oct, [facility] [place] [facility] [address] [id number] [place] [address]- 2111 Oct, [facility] [place] [facility] [address] [id number] [place] [address]- 3592 Sep, [facility] [place] [facility] [address] [id number] [place] [address]- 8604 Sep, [facility] [place] [facility] [address] [id number] [place] [address]- 6634 Sep, [facility] [place] [facility] [address] [id number] [place] [address]- 7278 Sep, [facility] [place] [facility] [address] [id number] [place] [address]- 4412 Aug, [facility] [place] [facility] [address] [id number] [place] [address]- 8384 Aug, [facility] [place] [facility] [address] [id number] [place] [address]- 7658 Aug, [facility] [place] [facility] [address] [id number] [place] [address]- 8120 Jul, [facility] [place] [facility] [address] [id number] [place] [address]- 2546 Jul, [facility] [address] [id number] [place] [address]- 7346 Jul, [facility] [address] [id number] [place] [address]- 2546 Jul, [facility] [address] [id number] [place] [address] 2546 June, [facility] [address] [id number] [place] [address]- 2546 June, [facility] [address] [id number] [place] [address]- 9166 May, [facility] [address] [id number] [place] [address]- 2546 May, [facility] [address] [id number] [place] [address]- 2546 Apr, [facility] [address] [id number] [place] [address]- 0181 Apr, [facility] [address] [id number] [place] [address]- 1196 Mar, [facility] [address] [id number] [place] [address] 2546 Mar, [facility] [address] [id number] [place] [address]- 2546 Feb, [facility] [address] [id number] [place] [address]- 2546 Feb, [facility] [address] [id number] [place] [address]- 2546 Feb, [facility] [address] [id number] [place] [address]- 2546 Feb, [facility] [address] [id number] [place] [address]- 7571 17 Feb, 2012 [facility] [place] [facility] [address] [id number] [place] [address]- 2601 16 Feb, 2012 [facility] [place] [facility] [address] [id number] [place] [address]- 9530 16 Feb, 2012 [facility] [place] [facility] [address] [id number] [place] [address]- 7022 14 Feb, 2012 [facility] [place] [facility] [address] [id number] [place] [address]- 4350 11 Feb, 2012 [facility] [place] [facility] [address] [id number] [place] [address]- 3629 Jan, [facility] [place] [facility] [address] [id number] [place] [address]- 5459 Jan, [facility] [place] [facility] [address] [id number] [place] [address]- 6536 Jan, [facility] [place] [facility] [address] [id number] [place] [address]- 4613 Jan, [facility] [place] [facility] [address] [id number] [place] [address]- 1014 Dec, [facility] [place] [facility] [address] [id number] [place] [address]- 8860 Dec, [facility] [place] [facility] [address] [id number] [place] [address]- 8708 Dec, [facility] [place] [facility] [address] [id number], [place] [address]- 8106 Dec, [facility] [place] [facility] [address] [id number] [place] [address] Oct, [facility] [place] [facility] [address] [id number] [place] [address] Sep, [facility] [place] [facility] [address] [id number] [place] [address] Sep, [facility] [place] [facility] [address] [id number], [place] [address] Aug, [facility] [address], [place] [address] Jul, [facility] [id number], [place] [address] June, [facility] [id number], [place] [address] June, [facility] [id number], [place] [address] May, [facility] [id number] [place] [address] Apr, [facility] [address], [place] [address] Mar, [facility] [address], [place] [address] Mar, [facility] [address], [place] [address] Feb, [facility] [address], [place] [address] Dec, [facility] [address] [id number], [place] [address] Nov, [facility] [address] [id number], [place] [address] Sep, [facility] [address] [id number], [place] [address] Aug, IMMUNIZATIONS No Known Immunizations SOCIAL HISTORY Never Assessed REASON FOR VISIT Right ankle pain x 1 1/2 months. She tripped over a rug and just thought she had twisted her ankle but now it is swollen and difficult to walk on. THIAGO Scherer PLAN OF CARE Activity Details Follow Up 3 Months Reason: VITAL SIGNS Height 62 in 2016-08-20 Weight 97 lbs 2016-08-20 Temperature 98.4 degrees Fahrenheit 2016-08-20 Heart Rate 76 bpm 2016-08-20 Respiratory Rate 18 2016-08-20 BMI 17.74 kg/m2 2016-08-20 Blood pressure systolic 100 mmHg 2016-08-20 Blood pressure diastolic 70 mmHg 2016-08-20 MEDICATIONS Medication Instructions Dosage Frequency Start Date End Date Duration Status Diclofenac Sodium 75 MG Orally 2 times a day 1 tablet with food or milk 12h 8 Sep, 2016 30 days Active Potassium Chloride Kasia ER 20 MEQ TAKE ONE TABLET BY MOUTH EVERY DAY 30 Active Gabapentin 300 MG Orally Three times a day 1 tablet 8h 30 Active Trazodone HCl 100 MG TAKE ONE TABLET BY MOUTH AT BEDTIME 30 Active Ativan 0.5 MG Orally Once a day 1 tablet as needed 24h 22 Nov, 2014 Active Promethazine-Codeine 6.25-10 MG/5ML Orally every 4 hrs 5 ml as needed 4h Apr, Active Tizanidine HCl 4 MG TAKE ONE TABLET BY MOUTH THREE TIMES DAILY 30 Active Albuterol Sulfate 90 mcg/actuation Inhalation every 4-6 hours as needed 2 puffs Nov, Active conjugated estrogens 0.625 mg/gram insert 0.5 g by Vaginal route 1 time per weekdisp: 42.5 grams Feb, Active Blood Pressure Cuff - to check BP 24h 27 Jul, 2016 Active Furosemide 40 MG TAKE ONE TABLET BY MOUTH EVERY DAY 30 Active Tramadol HCl 50 mg Orally every 6 hrs 1 tablet as needed 6h Mar, Active Loratadine 10 mg Orally Once a day 1 tablet 24h 30 days Active Fetzima 40 MG Orally Once a day 1 capsule 24h Active Seroquel XR 400 MG TAKE ONE TABLET BY MOUTH AT BEDTIME -MUST BE SEEN FOR FURTHER REFILLS 30 Active RESULTS No Results PROCEDURES No Known procedures INSTRUCTIONS MEDICATIONS ADMINISTERED No Known Medications MEDICAL (GENERAL) HISTORY Type Description Date Medical History asthma Medical History headache Medical History chronic pain-low back with spasms Medical History anxiety Medical History depression Hospitalization History childbirth x 4
--- OUTSIDE RECORDS SUMMARY | 2017-05-20 11:30 | XMS REPORT | Continuity of Care Document ---
Author Author [facility] Address Unknown Phone Unavailable Allergies Active Description Code Type Severity Reaction Onset Reported/Identified Relationship to Patient Clinical Status Yes No Known Drug Allergies [id number] Drug Allergy Unknown N/A 07/20/2012 Medications There [...] BALDERRAMA DO 465.9 Upper Respiratory Infection 04/01/2010 UHMA LOZOYA MD 305.1 NONDEPENDENT TOBACCO USE DISORDER [...] MD 465.9 Upper Respiratory Infection 04/01/2010 HUMA LOOZYA MD 305.1 NONDEPENDENT TOBACCO USE DISORDER 04/01/2010 HUMA LOZOYA MD 465.9 Upper Respiratory Infection 04/01/2010 DWIGHT PATTERN CHAIN MAKER SUPERVISOR, APRIL A 305.1 NONDEPENDENT TOBACCO USE DISORDER 04/01/2010 DWIGHT PATTERN CHAIN MAKER SUPERVISOR, APRIL A 465.9 Upper Respiratory Infection 04/01/2010 DWIGHT PATTERN CHAIN MAKER SUPERVISOR, APRIL A 305.1 NONDEPENDENT TOBACCO USE DISORDER 04/01/2010 DWIGHT PATTERN CHAIN MAKER SUPERVISOR, APRIL A 465.9 Upper Respiratory Infection 04/01/2010 [...] TUNNEL SYNDROME 05/14/2010 HUMA LOZOYA MD V72.31 President Practicing Urologist Exam, Routine 05/14/2010 BALDERRAMA DO, BERRY K 354.0 CARPAL TUNNEL SYNDROME 05/14/2010 BALDERRMAA DO BERRY K V72.31 President Practicing Urologist Exam, Routine 05/14/2010 BALDERRAMA DO, BERRY K 354.0 CARPAL TUNNEL SYNDROME 05/14/2010 BALDERRAMA DO, BERRY K V72.31 President Practicing Urologist Exam, Routine 05/14/2010 DEVORA PINEDO, HUMA 354.0 CARPAL TUNNEL SYNDROME 05/14/2010 DEVORA PINEDO, HUMA V72.31 President Practicing Urologist Exam, Routine 05/14/2010 354.0 CARPAL TUNNEL SYNDROME 05/14/2010 V72.31 President Practicing Urologist Exam, Routine 05/14/2010 DEVORA PINEDO, HUMA 354.0 CARPAL TUNNEL SYNDROME 05/14/2010 DEVORA PINEDO, HUMA V72.31 President Practicing Urologist Exam, Routine 05/14/2010 DEVORA PINEDO, HUMA 354.0 CARPAL TUNNEL SYNDROME 05/14/2010 DEVORA PINEDO, HUMA V72.31 President Practicing Urologist Exam, Routine 05/14/2010 DEVORA PINEDO, HUMA 354.0 CARPAL TUNNEL SYNDROME 05/14/2010 HUMA LOZOYA MD V72.31 President Practicing Urologist Exam, Routine 05/14/2010 DEVORA PINEDO, HUMA 354.0 CARPAL TUNNEL SYNDROME 05/14/2010 HUMA LOZOYA MD V72.31 President Practicing Urologist Exam, Routine 05/14/2010 HUMA LOZOYA MD 354.0 CARPAL TUNNEL SYNDROME 05/14/2010 HUMA LOZOYA MD V72.31 President Practicing Urologist Exam, Routine 05/14/2010 DWIGHT FAIRCHILD, APRIL A 354.0 CARPAL TUNNEL SYNDROME 05/14/2010 APRIL QUINTANILLA APRN A V72.31 President Practicing Urologist Exam, Routine 05/14/2010 DWIGHT FAIRCHILD, APRIL A 354.0 CARPAL TUNNEL SYNDROME 05/14/2010 APRIL QUINTANILLA APRN A V72.31 President Practicing Urologist Exam, Routine 05/14/2010 BALDERRAMA DO, BERRY K 354.0 CARPAL TUNNEL SYNDROME 05/14/2010 BALDERRAMA DO, BERRY K V72.31 President Practicing Urologist Exam, Routine 05/14/2010 BALDERRAMA DO, BERRY K 354.0 CARPAL TUNNEL SYNDROME 05/14/2010 BALDERRAMA DO, BERRY K V72.31 President Practicing Urologist Exam, Routine 05/14/2010 DEVORA PINEDO, HUMA 354.0 CARPAL TUNNEL SYNDROME 05/14/2010 HUMA LOZOYA MD V72.31 President Practicing Urologist Exam, Routine 05/14/2010 DEVORA PINEDO, HUMA 354.0 CARPAL TUNNEL SYNDROME 05/14/2010 HUMA LOZOYA MD V72.31 President Practicing Urologist Exam, Routine 05/14/2010 ADDIS SPRINGER APRN 354.0 CARPAL TUNNEL SYNDROME 05/14/2010 ADDIS SPRINGER APRN A V72.31 President Practicing Urologist Exam, Routine 05/14/2010 HUMA LOZOYA MD 354.0 CARPAL TUNNEL SYNDROME 05/14/2010 HUMA LOZOYA MD V72.31 President Practicing Urologist Exam, Routine 05/14/2010 HUMA LOZOYA MD 354.0 CARPAL TUNNEL SYNDROME 05/14/2010 HUMA LOZOYA MD V72.31 President Practicing Urologist Exam, Routine 05/14/2010 354.0 CARPAL TUNNEL SYNDROME 05/14/2010 V72.31 President Practicing Urologist Exam, Routine 05/14/2010 HUMA LOZOAY MD 354.0 CARPAL TUNNEL SYNDROME 05/14/2010 HUMA LOZOYA MD V72.31 President Practicing Urologist Exam, Routine 06/09/2010 HUMA LOZOYA MD 381.81 [...] MD 728.85 SPASM OF MUSCLE 09/29/2012 HUMA OLZOYA MD 728.85 SPASM OF MUSCLE 09/29/2012 HUMA [...] MD V65.49 OTHER SPECIFIED COUNSELING 04/17/2013 HUMA LOZYOA MD V76.10 BREAST CANCER SCREENING 04/17/2013 HUMA [...] MD V65.49 OTHER SPECIFIED COUNSELING 04/17/2013 HUMA LOOZYA MD V76.10 BREAST CANCER SCREENING 04/17/2013 HUMA [...] LOZOYA MD Ot V76.12 03/16/2014 APRIL QUINTANILLA PATTERN CHAIN MAKER SUPERVISOR Ot 733.90 03/16/2014 APRIL QUINTANILLA A PATTERN CHAIN MAKER SUPERVISOR Ot V65.42 03/16/2014 DWIGHT APRIL A PATTERN CHAIN MAKER SUPERVISOR Ot V65.49 03/16/2014 DWIGHT APRIL A PATTERN CHAIN MAKER SUPERVISOR Ot V76.12 03/16/2014 DWIGHT APRIL A PATTERN CHAIN MAKER SUPERVISOR Ot V76.51 03/16/2014 DWIGHT, APRIL A PATTERN CHAIN MAKER SUPERVISOR Ot V82.81 03/19/2014 HUMA LOZOYA MD V76.10 [...] STATUS 03/03/2016 LI LOPEZ APRN Ot Z79.82 LONG-TERM (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 OF ASPIRIN 03/03/2016 LI LOPEZ APRN Ot Z79.899 OTHER LONG-TERM (CURRENT) DRUG THERAPY 03/03/2016 Ot V76.12 OTH SCREEN MAMMO-MALIGN NEOPLASM OF ETIENNE 03/03/2016 DEVORA PINEDO, HUMA Sparks Ot V76.12 OTH SCREEN MAMMO-MALIGN NEOPLASM OF ETIENNE 03/03/2016 APRIL QUINTANILLA PATTERN CHAIN MAKER SUPERVISOR Ot 733.90 BONE CARTILAGE DIS NOS 03/03/2016 APRIL QUINTANILLA PATTERN CHAIN MAKER SUPERVISOR Ot V65.42 COUNSELING ON SUBSTANCE USE AND ABUSE 03/03/2016 APRIL QUINTANILLA PATTERN CHAIN MAKER SUPERVISOR Ot V65.49 OTHER SPECIFIED COUNSELING 03/03/2016 APRIL QUINTANILLA PATTERN CHAIN MAKER SUPERVISOR Ot V76.12 OTH SCREEN MAMMO-MALIGN NEOPLASM OF ETIENNE 03/03/2016 APRIL QUINTANILLA PATTERN CHAIN MAKER SUPERVISOR Ot V76.51 SCREEN MAL NEOP-COLON 03/03/2016 APRIL QUINTANILLA PATTERN CHAIN MAKER SUPERVISOR Ot V82.81 SCREENING FOR OSTEOPOROSIS 03/03/2016 Ot V76.12 OTH SCREEN MAMMO-MALIGN NEOPLASM OF ETIENNE 03/03/2016 HUMA LOZOYA MD Ot V76.12 OTH SCREEN MAMMO-MALIGN NEOPLASM OF ETIENNE 03/03/2016 APRIL QUINTANILLA PATTERN CHAIN MAKER SUPERVISOR Ot 733.90 BONE CARTILAGE DIS NOS 03/03/2016 APRIL QUINTANILLA PATTERN CHAIN MAKER SUPERVISOR Ot V65.42 COUNSELING ON SUBSTANCE USE AND ABUSE 03/03/2016 APRIL QUINTANILLA PATTERN CHAIN MAKER SUPERVISOR Ot V65.49 OTHER SPECIFIED COUNSELING 03/03/2016 APRIL QUINTANILLA PATTERN CHAIN MAKER SUPERVISOR Ot V76.12 OTH SCREEN MAMMO-MALIGN NEOPLASM OF ETIENNE 03/03/2016 APRIL QUINTANILLA PATTERN CHAIN MAKER SUPERVISOR Ot V76.51 SCREEN MAL NEOP-COLON 03/03/2016 APRIL QUINTANILLA PATTERN CHAIN MAKER SUPERVISOR Ot V82.81 SCREENING FOR OSTEOPOROSIS 03/04/2016 LI LOPEZ APRN Ot J44.9 CHRONIC OBSTRUCTIVE PULMONARY DISEASE, U 03/04/2016 LI LOPEZ APRN Ot S82.401A UNSP FRACTURE OF SHAFT OF RIGHT FIBULA, 03/04/2016 LI LOPEZ APRN Ot S99.911A UNSPECIFIED INJURY OF RIGHT ANKLE, INITI 03/04/2016 LI LOPEZ APRN Ot X58.XXXA EXPOSURE TO OTHER SPECIFIED FACTORS, INI 03/04/2016 LI LOPEZ APRN Ot Y92.[address] IN [facility] NON-INSTITUT (PRIVATE 03/04/2016 LI LOPEZ APRN Ot Y99.8 OTHER EXTERNAL CAUSE STATUS 03/04/2016 LI LOPEZ APRN Ot Z79.82 STOCK ASSOCIATE (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 OF ASPIRIN 03/04/2016 LI LOPEZ APRN Ot Z79.899 OTHER LONG-TERM (CURRENT) DRUG THERAPY 03/05/2016 LI LOPEZ APRN Ot J44.9 CHRONIC OBSTRUCTIVE PULMONARY DISEASE, U 03/05/2016 LI LOPEZ APRN Ot S82.401A UNSP FRACTURE OF SHAFT OF RIGHT FIBULA, 03/05/2016 LI LOPEZ APRN Ot S99.911A UNSPECIFIED INJURY OF RIGHT ANKLE, INITI 03/05/2016 LI LOPEZ APRN Ot X58.XXXA EXPOSURE TO OTHER SPECIFIED FACTORS, INI 03/05/2016 LI LOPEZ APRN Ot Y92.[address] IN [facility] NON-INSTITUT (PRIVATE 03/05/2016 LI LOPEZ APRN Ot Y99.8 OTHER EXTERNAL CAUSE STATUS 03/05/2016 LI LOPEZ APRN Ot Z79.82 LONG-TERM (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 OF ASPIRIN 03/05/2016 LI LOPEZ APRN Ot Z79.899 OTHER STOCK ASSOCIATE (CURRENT) DRUG THERAPY 07/11/2016 MELISSA GARCIA Ot F10.129 ALCOHOL ABUSE WITH INTOXICATION, UNSPECI 07/11/2016 MELISSA GARCIA Ot F17.210 NICOTINE DEPENDENCE, CIGARETTES, UNCOMPL 07/11/2016 MELISSA GARCIA Ot J44.9 CHRONIC OBSTRUCTIVE PULMONARY DISEASE, U 07/11/2016 MELISSA GARCIA Ot Y90.6 BLOOD ALCOHOL LEVEL OF 120-199 MG/100 ML 07/11/2016 MELISSA GARCIA Ot Z79.82 STOCK ASSOCIATE (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 OF ASPIRIN 07/11/2016 MELISSA GARCIA Ot Z79.899 OTHER STOCK ASSOCIATE (CURRENT) DRUG THERAPY 04/06/2017 MALIA JOLLY MD [...] R 04/06/2017 MALIA JOLLY MD Ot Z79.82 LONG-TERM (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 OF ASPIRIN 04/06/2017 MALIA JOLLY [...] CHRONIC OBSTRUCTIVE PULMONARY DISEASE, U 04/06/2017 MELISSA GARICA Ot S82.891A OTH FRACTURE OF RIGHT LOWER LEG, INIT FO 04/06/2017 MELISSA GARCIA Ot X58.XXXA EXPOSURE TO OTHER SPECIFIED FACTORS, INI 04/06/2017 MELISSA GARCIA Ot Z79.82 LONG-TERM (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 OF ASPIRIN 04/06/2017 MELISSA GARCIA [...] R 04/08/2017 MALIA JOLLY MD Ot Z79.82 STOCK ASSOCIATE (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 OF ASPIRIN 04/08/2017 MALIA JOLLY [...] FACTORS, INI 04/08/2017 MELISSA GARCIA Ot Z79.82 STOCK ASSOCIATE (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 OF ASPIRIN 04/08/2017 MELISSA GARCIA Ot Z80.8 FAMILY HISTORY OF MALIGNANT NEOPLASM OF 04/08/2017 MELISSA GARCIA Ot Z91.5 PERSONAL HISTORY OF SELF-HARM 05/18/2017 MELISSA GARCIA Ot R06.02 SHORTNESS OF BREATH 05/18/2017 MELISSA GARCIA Ot R06.02 SHORTNESS OF BREATH 05/19/2017 Ot V76.12 OTH SCREEN MAMMO-MALIGN NEOPLASM OF ETIENNE 05/19/2017 HUMA LOZOYA MD Ot V76.12 OTH SCREEN MAMMO-MALIGN NEOPLASM OF ETIENNE 05/19/2017 DWIGHT, APRIL A PATTERN CHAIN MAKER SUPERVISOR Ot 733.90 BONE CARTILAGE DIS NOS 05/19/2017 DWIGHT, APRIL A PATTERN CHAIN MAKER SUPERVISOR Ot V65.42 COUNSELING ON SUBSTANCE USE AND ABUSE 05/19/2017 DWIGHT, APRIL A PATTERN CHAIN MAKER SUPERVISOR Ot V65.49 OTHER SPECIFIED COUNSELING 05/19/2017 DWIGHT, APRIL A PATTERN CHAIN MAKER SUPERVISOR Ot V76.12 OTH SCREEN MAMMO-MALIGN NEOPLASM OF ETIENNE 05/19/2017 DWIGHT, APRIL A PATTERN CHAIN MAKER SUPERVISOR Ot V76.51 SCREEN MAL NEOP-COLON 05/19/2017 DWIGHT, APRIL A PATTERN CHAIN MAKER SUPERVISOR Ot V82.81 SCREENING FOR OSTEOPOROSIS 05/19/2017 MELISSA GARCIA Ot R06.02 SHORTNESS OF BREATH 05/19/2017 Ot V76.12 OTH SCREEN MAMMO-MALIGN NEOPLASM OF ETIENNE 05/19/2017 HUMA LOZOYA MD Ot V76.12 OTH SCREEN MAMMO-MALIGN NEOPLASM OF ETIENNE 05/19/2017 DWIGHT, APRIL A PATTERN CHAIN MAKER SUPERVISOR Ot 733.90 BONE CARTILAGE DIS NOS 05/19/2017 DWIGHT APRIL A PATTERN CHAIN MAKER SUPERVISOR Ot V65.42 COUNSELING ON SUBSTANCE USE AND ABUSE 05/19/2017 DWIGHT, APRIL A PATTERN CHAIN MAKER SUPERVISOR Ot V65.49 OTHER SPECIFIED COUNSELING 05/19/2017 DWIGHT, APRIL A PATTERN CHAIN MAKER SUPERVISOR Ot V76.12 OTH SCREEN MAMMO-MALIGN NEOPLASM OF ETIENNE 05/19/2017 DWIGHT, APRIL A PATTERN CHAIN MAKER SUPERVISOR Ot V76.51 SCREEN MAL NEOP-COLON 05/19/2017 DWIGHT, APRIL A PATTERN CHAIN MAKER SUPERVISOR Ot V82.81 SCREENING FOR OSTEOPOROSIS 05/19/2017 MELISSA GARCIA Ot R06.02 SHORTNESS OF BREATH Procedures Code Description Performed By Performed On Psychiatr [facility] 10/09/2011 68171 UA W/ CULTURE IF INDICATED 02/19/2012 73645 ROUTINE VENIPUNCTURE 02/22/2012 47231 CBC 02/22/2012 36941 LIPID PANEL 02/22/2012 40314 CMP 02/22/2012 [id number] GFR CALC (RESULT ONLY) 02/22/2012 52503 TSH 02/23/2012 91468 MAMMOGRAM, SCREENING 02/23/2012 38456 HEMOCCULT 02/23/2012 84437 PAP SMEAR 02/23/2012 Q0091 PAP SMEAR OBTAIN SMEAR 02/23/2012 37077 URINE DRUG SCREEN (IN-HOUSE ) 01/18/2013 76572 MAMMOGRAM, SCREENING 01/19/2013 URINEDRUG URINE DRUG SCREEN (CON'F ) 01/19/2013 91025 BONE DENSITY, DEXA 04/17/2013 GENERAL S K[place], Ken 04/17/2013 86577 BONE MINERAL DENSITY, HEEL US (IN HOUSE) 04/17/2013 41969 XRAY CERVICAL SPINE, 2 OR 3 VIEWS 06/02/2013 40345 ROUTINE VENIPUNCTURE 02/16/2014 02391 MAMMOGRAM, SCREENING 02/16/2014 9362336 GFR CALC (RESULT ONLY) 02/16/2014 57937 CMP 02/16/2014 Results Test Result Range Complete [...] 07/11/16 16:13 Blood monocytes/100 leukocytes 2 % NR Manual blood segmented neutrophils/100 leukocytes 63 % NRG Blood band neutrophils/100 leukocytes 0 % NRG Manual blood lymphocytes/100 leukocytes 34 % NRG Manual eosinophils/100 leukocytes in nose 1 % NRG Manual blood basophils/100 leukocytes 0 % NR Blood erythrocyte morphology finding identification [facility] Comprehensive metabolic panel - 07/11/16 16:13 Serum [...] Status Pt. Type Provider Facility Loc./Unit Complaint [id number] 02/16/2014 11:31:00 02/16/2014 23:59:59 CLS Outpatient HUMA LOZOYA MD [id number] 12/02/2013 06:43:00 12/02/2013 23:59:59 CLS Outpatient HUMA LOZOYA MD [id number] 11/27/2013 11:19:00 11/27/2013 23:59:59 CLS Outpatient HUMA LOZOYA MD [id number] 10/30/2013 12:59:00 10/30/2013 23:59:59 CLS Outpatient ADDIS SPRINGER APRN [id number] 09/18/2013 13:40:00 09/18/2013 23:59:59 CLS Outpatient HUMA LOZOYA MD [id number] 07/25/2013 16:53:00 07/25/2013 23:59:59 CLS Outpatient HUMA LOZOYA MD [id number] 06/02/2013 11:36:00 06/02/2013 23:59:59 CLS Outpatient BERRY BALDERRAMA DO [id number] 06/02/2013 11:36:00 06/02/2013 23:59:59 CLS Outpatient BERRY BALDERRAMA DO [id number] 04/17/2013 10:34:00 04/17/2013 23:59:59 CLS Outpatient APRIL QUINTANILLA APRN [id number] 04/17/2013 10:34:00 04/17/2013 23:59:59 CLS Outpatient APRIL QUINTANILLA APRN [id number] 03/02/2013 13:45:00 03/02/2013 23:59:59 CLS Outpatient HUMA LOZOYA MD [id number] 03/02/2013 13:45:00 03/02/2013 23:59:59 CLS Outpatient HUMA LOZOYA MD [id number] 01/18/2013 14:08:00 01/18/2013 23:59:59 CLS Outpatient HUMA LOZOYA MD [id number] 12/19/2012 11:31:00 12/19/2012 23:59:59 CLS Outpatient HUMA LOZOYA MD [id number] 09/29/2012 16:24:00 09/29/2012 23:59:59 CLS Outpatient HUMA LOZOYA MD [id number] 03/28/2012 11:42:00 03/28/2012 23:59:59 CLS Outpatient HUMA LOZOYA MD [id number] 02/22/2012 09:43:00 02/22/2012 23:59:59 CLS Outpatient TACOS LEDESMA BERRY Benny [id number] 02/19/2012 13:27:00 02/19/2012 23:59:59 CLS Outpatient BERRY BALDERRAMA DO [id number] 10/02/2011 09:36:00 10/02/2011 23:59:59 [place] [id number] 10/02/2011 09:36:00 10/02/2011 23:59:59 CLS Outpatient [id number] 06/24/2012 13:29:00 Document Registration [id number] 05/19/2017 17:05:00 05/19/2017 17:31:00 DIS Emergency HONEY GOLDBERG MD [facility] SO [id number] 05/11/2017 21:12:00 05/11/2017 21:57:00 DIS Emergency MELISSA GARCIA [facility] ER SOA [id number] 04/06/2017 18:38:00 04/06/2017 20:05:00 DIS Emergency MELISSA GARCIA [facility] ER ANKLE PAIN [id number] 04/06/2017 12:39:00 04/06/2017 15:08:00 DIS Emergency MALIA JOLLY MD [facility] ER DRUG/ETOH ABUSE [id number] 07/11/2016 16:09:00 07/11/2016 19:12:00 DIS Emergency MELISSA GARCIA [facility] ER ALCOHOL INTOX [id number] 03/03/2016 15:38:00 03/03/2016 16:45:00 DIS Emergency LI LOPEZ PATTERN CHAIN MAKER SUPERVISOR [facility] ER R ANKLE PAIN [id number] 05/02/2015 16:39:00 05/04/2015 13:14:00 DIS Inpatient FINESSE MOY MD [facility] 4TH RLL PNUEMONIA [id number] 11/19/2013 22:15:00 11/20/2013 10:50:00 DIS Inpatient DANICA LERNER MD [facility] ICU ETOH INTOXICATION, AMS [id number] 10/02/2013 15:43:00 10/03/2013 14:03:00 DIS Inpatient BERRY BALDERRAMA DO [facility] ICU SUICIDAL/HOMICIDAL IDEATION, ETOH INTOXICATION [id number] 04/27/2013 09:25:00 04/27/2013 23:59:59 CLS Outpatient APRIL QUINTANILLA PATTERN CHAIN MAKER SUPERVISOR [facility] RAD OSTEOPENIA [id number] 03/06/2013 10:54:00 03/06/2013 23:59:59 CLS Outpatient HUMA LOZOYA MD [facility] RAD SCREENING [id number] 11/14/2012 15:16:00 11/14/2012 23:59:59 CLS Outpatient [id number] 09/19/2012 13:31:00 09/19/2012 23:59:59 CLS Outpatient [id number] 08/22/2012 15:17:00 08/22/2012 23:59:59 CLS Outpatient [id number] 08/04/2012 14:36:00 08/04/2012 23:59:59 CLS Outpatient [id number] 07/20/2012 12:07:00 07/20/2012 13:45:00 DIS Emergency CURTIS LEDESMA, FRANCISCO Montes [facility] ER FELL INJ L ARM [id number] 03/16/2014 10:56:00 Document Registration [id number] 03/04/2012 10:23:00 Document Registration [id number] 01/13/2013 16:48:57 ACT Document Registration [id number] 04/08/2017 14:00:00 04/08/2017 23:59:59 CLS Out[facility]ORA PINEDO[facility]
== END 2017-05-19 17:31 | disposition left against medical advice (07) ==
LOC: EDUNIT# 17:04 → ER 17:05
DX: R06.02 Shortness of breath (principal); M79.609 Pain in unspecified limb; W19.XXXA Unspecified fall, initial encounter
CPT/HCPCS: 99283

== ENCOUNTER 2017-05-21 20:59 | Emergency (ER) | payer MEDICAID ==
[~2017-05-21] VITALS: Ht 152.4 cm; Wt 41.1 kg
[~2017-05-21 20:59] MED LIST changes: -CODE118S2 PO; +CODE118S4 PO
--- NOTE | 2017-05-21 21:11 | ED Psychosocial ---
General Chief Complaint: Substance Abuse Stated Complaint: SOB Source: patient Exam Limitations: no limitations History of Present Illness Date Seen by Provider: May 21, 2017 Time Seen by Provider: 21:09 Initial Comments To ER per EMS with c/o shortness of breath. This will be her 3rd visit this month for this complaint, she's left AMA prior to discharge the past 2 times. She Also currently has a right ankle fracture and is supposed to wear a boot at home but does not. She is an alcoholic. Timing/Duration: constant Severity: moderate Allergies and Home Medications Allergies Coded Allergies: No Known Drug Allergies (Unverified , 07/20/12) Home Medications Aspirin 81 Mg Tablet.dr, 81 MG PO DAILY, (Reported) Buspirone HCl 10 Mg Tablet, 10 MG PO BID, (Reported) Cefpodoxime Proxetil 200 Mg Tablet, 200 MG PO BID Prescribed by: FINESSE DESAI on 05/04/15 1211 Diclofenac Sodium 75 Mg Tablet.dr, 75 MG PO BID, (Reported) Furosemide 40 Mg Tablet, 40 MG PO DAILY, (Reported) Gabapentin 300 Mg Capsule, 300 MG PO TID, (Reported) Hydrocodone/Acetaminophen 1 Each Tablet, 1 EACH PO Q4H PRN for PAIN Prescribed by: LI LOPEZ on 03/03/16 1620 Levomilnacipran Hydrochloride 80 Mg Cap.sa.24h, 80 MG PO DAILY, (Reported) Loratadine 10 Mg Tablet, 10 MG PO DAILY, (Reported) Lorazepam 0.5 Mg Tablet, 0.5 MG PO DAILY PRN for ANXIETY, (Reported) Multivitamin 1 Each Tablet, 1 TAB PO DAILY, (Reported) Potassium Chloride 20 Meq Tab.er.prt, 20 MEQ PO DAILY, (Reported) Quetiapine Fumarate 100 Mg Tablet, 100 MG PO HS, (Reported) Tizanidine HCl 4 Mg Tablet, 4 MG PO TID PRN for MUSCLE SPASMS, (Reported) Patient Home Medication List Home Medication List Reviewed: Yes Constitutional: see HPI EENTM: see HPI Respiratory: no symptoms reported Cardiovascular: no symptoms reported Genitourinary: no symptoms reported Musculoskeletal: see HPI Skin: no symptoms reported Psychiatric/Neurological: No Symptoms Reported Past Arlxvtc-Usxjni-Piqofv Hx Patient Social History Alcohol Beverage of Choice: Beer, Whiskey, [place] Drug of Choice: WEED Type Used: Cigarettes Recent Hopitalizations: No Immunizations Up To Date Tetanus Booster (TDap): Unknown PED Vaccines UTD: No Seasonal Allergies Seasonal Allergies: No Past Medical History Surgeries: Yes (CYST ON OVARY) Respiratory: Yes Sleep Apnea, COPD Currently Using CPAP: No Currently Using BIPAP: No Cardiac: No Neurological: Yes Reproductive Disorders: No Female Reproductive Disorders: Denies Sexually Transmitted Disease: No HIV/AIDS: No Genitourinary: No Gastrointestinal: No Musculoskeletal: Yes (ANKLE FRACTURE) Arthritis, Chronic Back Pain Endocrine: No HEENT: No Cancer: No Psychosocial: Yes (alcoholism) Sleep Difficulties, Anxiety, Suicide Attempts, Bipolar, Depression Integumentary: No Blood Disorders: No Family Medical History Alcoholism 19 FATHER G8 BROTHER G8 BROTHER G8 BROTHER G8 SISTER G8 SISTER FH: brain cancer G8 SISTER Neoplasm 19 MOTHER No Pertinent Family Hx Physical Exam Vital Signs Vital Signs - First Documented 05/21/17 21:06 Temp 98.1 Pulse 86 Resp 18 B/P (MAP) 115/86 (96) Pulse Ox 94 O2 Delivery Room Air Capillary Refill : General Appearance: WD/WN, no apparent distress HEENT: PERRL/EOMI, normal ENT inspection Neck: non-tender, full range of motion Respiratory: chest non-tender, lungs clear, normal breath sounds, no respiratory distress, no accessory muscle use, other (speaks nonstop in full sentences with clear lungs and no hypoxia. No distress. ) Cardiovascular: regular rate, rhythm, no murmur Gastrointestinal: normal bowel sounds, non tender Neurologic/Psychiatric: alert, normal mood/affect, oriented x 3 Appearance/Memory: disheveled Behavior/Eye Contact: cooperative Thoughts/Hallucinations: normal thought pattern, no apparent hallucination Skin: normal color, warm/dry Progress/Results/Core Measures Lab Results Laboratory Tests Test 05/21/17 21:15 Range/Units White Blood Count 12.5 H 4.3-11.0 10^3/uL Red Blood Count 4.32 L 4.35-5.85 10^6/uL Hemoglobin 15.0 11.5-16.0 G/DL Hematocrit 43 35-52 % Mean Corpuscular Volume 100 H 80-99 FL Mean Corpuscular Hemoglobin 35 H 25-34 PG Mean Corpuscular Hemoglobin Concent 35 32-36 G/DL Red Cell Distribution Width 12.5 10.0-14.5 % Platelet Count 302 130-400 10^3/uL Mean Platelet Volume 9.9 7.4-10.4 FL Neutrophils (%) (Auto) 53 42-75 % Lymphocytes (%) (Auto) 36 12-44 % Monocytes (%) (Auto) 10 0-12 % Eosinophils (%) (Auto) 1 0-10 % Basophils (%) (Auto) 1 0-10 % Neutrophils # (Auto) 6.6 1.8-7.8 X 10^3 Lymphocytes # (Auto) 4.5 H 1.0-4.0 X 10^3 Monocytes # (Auto) 1.3 H 0.0-1.0 X 10^3 Eosinophils # (Auto) 0.1 0.0-0.3 10^3/uL Basophils # (Auto) 0.1 0.0-0.1 10^3/uL Sodium Level 136 135-145 MMOL/L Potassium Level 3.7 3.6-5.0 MMOL/L Chloride Level 99 98-107 MMOL/L Carbon Dioxide Level 22 21-32 MMOL/L Anion Gap 15 H 5-14 MMOL/L Blood Urea Nitrogen 16 7-18 MG/DL Creatinine 0.72 0.60-1.30 MG/DL Estimat Glomerular Filtration Rate > 60 BUN/Creatinine Ratio 22 Glucose Level 80 70-105 MG/DL Calcium Level 9.3 8.5-10.1 MG/DL Total Bilirubin 0.4 0.1-1.0 MG/DL Aspartate Amino Transf (AST/SGOT) 45 H 5-34 U/L Alanine Aminotransferase (ALT/SGPT) 40 0-55 U/L Alkaline Phosphatase 68 40-136 U/L Total Protein 7.5 6.4-8.2 GM/DL Albumin 4.7 H 3.2-4.5 GM/DL Serum Alcohol 251 H <10 MG/DL My Orders Orders - LI LOPEZ APRN Cbc With Automated Diff (05/21/17 21:04) Comprehensive Metabolic Panel (05/21/17 21:04) Alcohol (05/21/17 21:04) Ekg Tracing (05/21/17 21:04) Chest 1 View, Ap/Pa Only (05/21/17 21:04) Acetaminophen Tablet (Tylenol Tablet) (05/21/17 22:15) Medications Given in ED Current Medications Medications Dose Ordered Sig/Maddi Route Start Time Stop Time Status Last Admin Dose Admin Acetaminophen 500 mg ONCE ONCE PO 05/21/17 22:15 05/21/17 22:16 DC 05/21/17 22:13 500 MG Vital Signs/I&O 05/21/17 05/21/17 05/21/17 21:06 22:13 22:15 Temp 98.1 98.1 98.0 Pulse 86 81 Resp 18 18 B/P (MAP) 115/86 (96) 112/78 (96) Pulse Ox 94 95 O2 Delivery Room Air Diagonstic Imaging: Xray Plain Films/CT/US/NM/MRI: chest Comments NAME: [facility]ED[facility] REC#: [id number] PT STATUS: REG ER : 1955 PHYSICIAN: LI LOPEZ APRN ADMIT DATE: 05/21/17/ER Draft Date of Exam:05/21/17 CHEST 1 VIEW, AP/PA ONLY INDICATION: Shortness of breath EXAM: Portable chest at 9:21 PM FINDINGS: Heart size and pulmonary vascularity are normal. The lungs are clear. There are no effusions or pneumothoraces. IMPRESSION: Negative chest. Dictated on workstation # [id number] Dict: 05/21/172133 Trans: 05/21/172134 [facility] [id number] Interpreted by: HONEY ARCOS MD Electronically signed by: Departure Impression Primary Impression: Alcoholism Disposition: 01 HOME, SELF-CARE Condition: Stable Departure-Patient Inst. Decision time for Depature: 21:13 Referrals: HUMA LZOOYA MD (PCP/Family) Primary Care Physician Patient Instructions: ALCOHOL AND SUBSTANCE ABUSE LI LOPEZ APRN May 21, 2017 21:11
[2017-05-21 21:23] LABS: BASOPHILS # (AUTO) 0.1 10^3/uL (0.0-0.1); BASOPHILS % (AUTO) 1 % (0-10); EOSINOPHILS # (AUTO) 0.1 10^3/uL (0.0-0.3); EOSINOPHILS % (AUTO) 1 % (0-10); HEMATOCRIT 43 % (35-52); LYMPHOCYTES # (AUTO) 4.5 X 10^3 (1.0-4.0); LYMPHOCYTES % (AUTO) 36 % (12-44); MEAN CORPUSCULAR HEMOGLOBIN 35 PG (25-34); MEAN CORPUSCULAR HGB CONC 35 G/DL (32-36); MEAN CORPUSCULAR VOLUME 100 FL (80-99); MEAN PLATELET VOLUME 9.9 FL (7.4-10.4); MONOCYTES # (AUTO) 1.3 X 10^3 (0.0-1.0); MONOCYTES % (AUTO) 10 % (0-12); NEUTROPHILS # (AUTO) 6.6 X 10^3 (1.8-7.8); NEUTROPHILS % (AUTO) 53 % (42-75); PLATELET COUNT 302 10^3/uL (130-400); RED BLOOD COUNT 4.32 10^6/uL (4.35-5.85); RED CELL DISTRIBUTION WIDTH 12.5 % (10.0-14.5); WHITE BLOOD COUNT 12.5 10^3/uL (4.3-11.0)
--- NOTE | 2017-05-21 21:35 | Diagnostic Imaging Report ---
INDICATION: Shortness of breath EXAM: Portable chest at 9:21 PM FINDINGS: Heart size and pulmonary vascularity are normal. The lungs are clear. There are no effusions or pneumothoraces. IMPRESSION: Negative chest. Dictated by: Dictated on workstation # [id number]
[2017-05-21 21:45] LABS: ALANINE AMINOTRANSFERASE 40 U/L (0-55); ALBUMIN 4.7 GM/DL (3.2-4.5); ALKALINE PHOSPHATASE 68 U/L (40-136); BILIRUBIN,TOTAL 0.4 MG/DL (0.1-1.0); BUN/CREATININE RATIO 22; CALCIUM 9.3 MG/DL (8.5-10.1); CARBON DIOXIDE 22 MMOL/L (21-32); CHLORIDE 99 MMOL/L (98-107); CREATININE SERUM 0.72 MG/DL (0.60-1.30); GFR ESTIMATED > 60; GLUCOSE 80 MG/DL (70-105); POTASSIUM 3.7 MMOL/L (3.6-5.0); SODIUM 136 MMOL/L (135-145); TOTAL PROTEIN 7.5 GM/DL (6.4-8.2)
[2017-05-21 22:15] VITALS: BP 112/78
[2017-05-21] MEDS ORDERED: ACETAMINOPHEN 500 MG TAB (TYLENOL) PO ONE (22:15)
--- OUTSIDE RECORDS SUMMARY | 2017-05-23 08:44 | XMS REPORT | Continuity of Care Document ---
Author Author Formerly [facility] Address Unknown Phone Unavailable Allergies Active Description Code Type Severity Reaction Onset Reported/Identified Relationship to Patient Clinical Status Yes No Known Drug Allergies [id number] Drug Allergy Unknown N/A 07/20/2012 Medications There [...] MD 465.9 Upper Respiratory Infection 04/01/2010 [facility] CHAPLAIN, APRIL A 305.1 NONDEPENDENT TOBACCO USE DISORDER 04/01/2010 [facility] CHAPLAIN, APRIL A 465.9 Upper Respiratory Infection 04/01/2010 [facility] CHAPLAIN, APRIL A 305.1 NONDEPENDENT TOBACCO USE DISORDER 04/01/2010 [facility] CHAPLAIN, APRIL A 465.9 Upper Respiratory Infection 04/01/2010 [...] TUNNEL SYNDROME 05/14/2010 HUMA LOZOYA MD V72.31 Vehicle Dismantler Exam, Routine 05/14/2010 BALDERRAMA DO, BERRY K 354.0 CARPAL TUNNEL SYNDROME 05/14/2010 BALDERRAMA DO BERRY K V72.31 Vehicle Dismantler Exam, Routine 05/14/2010 BALDERRAMA DO, BERRY K 354.0 CARPAL TUNNEL SYNDROME 05/14/2010 BALDERRAMA DO, BERRY K V72.31 Vehicle Dismantler Exam, Routine 05/14/2010 DEVORA PINEDO, HUMA 354.0 CARPAL TUNNEL SYNDROME 05/14/2010 DEVORA PINEDO, HUMA V72.31 Vehicle Dismantler Exam, Routine 05/14/2010 354.0 CARPAL TUNNEL SYNDROME 05/14/2010 V72.31 Vehicle Dismantler Exam, Routine 05/14/2010 DEVORA PINEDO, HUMA 354.0 CARPAL TUNNEL SYNDROME 05/14/2010 DEVORA PINEDO, HUMA V72.31 Vehicle Dismantler Exam, Routine 05/14/2010 DEVORA PINEDO, HUMA 354.0 CARPAL TUNNEL SYNDROME 05/14/2010 DEVORA PINEDO, HUMA V72.31 Vehicle Dismantler Exam, Routine 05/14/2010 DEVORA PINEDO, HUMA 354.0 CARPAL TUNNEL SYNDROME 05/14/2010 HUMA LOZOYA MD V72.31 Vehicle Dismantler Exam, Routine 05/14/2010 DEVORA PINEDO, HUMA 354.0 CARPAL TUNNEL SYNDROME 05/14/2010 HUMA LOZOYA MD V72.31 Vehicle Dismantler Exam, Routine 05/14/2010 HUMA LOZOYA MD 354.0 CARPAL TUNNEL SYNDROME 05/14/2010 HUMA LOZOYA MD V72.31 Vehicle Dismantler Exam, Routine 05/14/2010 DWIGHT FAIRCHILD, APRIL A 354.0 CARPAL TUNNEL SYNDROME 05/14/2010 APRIL QUINTANILLA APRN A V72.31 Vehicle Dismantler Exam, Routine 05/14/2010 DWIGHT FAIRCHILD, APRIL A 354.0 CARPAL TUNNEL SYNDROME 05/14/2010 APRIL QUINTANILLA APRN A V72.31 Vehicle Dismantler Exam, Routine 05/14/2010 BALDERRAMA DO, BERRY K 354.0 CARPAL TUNNEL SYNDROME 05/14/2010 BALDERRAMA DO, BERRY K V72.31 Vehicle Dismantler Exam, Routine 05/14/2010 BALDERRAMA DO, BERRY K 354.0 CARPAL TUNNEL SYNDROME 05/14/2010 BALDERRAMA DO, BERRY K V72.31 Vehicle Dismantler Exam, Routine 05/14/2010 DEVORA PINEDO, HUMA 354.0 CARPAL TUNNEL SYNDROME 05/14/2010 HUMA LOZOYA MD V72.31 Vehicle Dismantler Exam, Routine 05/14/2010 DEVORA PINEDO, HUMA 354.0 CARPAL TUNNEL SYNDROME 05/14/2010 HUMA LOZOYA MD V72.31 Vehicle Dismantler Exam, Routine 05/14/2010 ADDIS SPRINGER APRN 354.0 CARPAL TUNNEL SYNDROME 05/14/2010 ADDIS SPRINGER APRN A V72.31 Vehicle Dismantler Exam, Routine 05/14/2010 HUMA LOZOYA MD 354.0 CARPAL TUNNEL SYNDROME 05/14/2010 HUMA LOZOYA MD V72.31 Vehicle Dismantler Exam, Routine 05/14/2010 HUMA LOZOYA MD 354.0 CARPAL TUNNEL SYNDROME 05/14/2010 HUMA LOZOYA MD V72.31 Vehicle Dismantler Exam, Routine 05/14/2010 354.0 CARPAL TUNNEL SYNDROME 05/14/2010 V72.31 Vehicle Dismantler Exam, Routine 05/14/2010 HUMA LOZOYA MD 354.0 CARPAL TUNNEL SYNDROME 05/14/2010 HUMA LOZOYA MD V72.31 Vehicle Dismantler Exam, Routine 06/09/2010 HUMA LOZOYA MD 381.81 [...] 08/12/2010 HUMA LOZOYA MD 786.02 Orthopnea 08/12/2010 HMUA LOZOYA MD 303.03 Acute Alcoholic Intoxication In [...] DWIGHT FAIRCHILD, APRIL A 782.3 Edema 08/12/2010 DIWGHT FAIRCHILD APRIL A 786.02 Orthopnea 08/12/2010 BALDERRAMA DO, BERRY K 303.03 Acute Alcoholic Intoxication In Alcoholism In Remission 08/12/2010 BALDERRAMA DO, BERRY K 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 08/12/2010 BALDERRAMA DO, BERRY K 782.3 Edema 08/12/2010 BALDERRAMA DO, BERRY K 786.02 Orthopnea 08/12/2010 BALDERRAMA DO, BERRY K 303.03 Acute Alcoholic Intoxication In Alcoholism In Remission 08/12/2010 BALDERRAMA DO, EBRRY K 305.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 [...] RELATED ACTING SYMPATHOMIMETIC ABUSE IN REMISSION 08/12/2010 HMUA LOZOYA MD 782.3 Edema 08/12/2010 HUMA LOZOYA [...] ACTING SYMPATHOMIMETIC ABUSE IN REMISSION 08/12/2010 HUMA LZOOYA MD 782.3 Edema 08/12/2010 HUMA LOZOYA MD [...] OTHER ABNORMALITY OF RED BLOOD CELLS 08/15/2010 APIRL QUINTANILLA APRN A 790.09 OTHER ABNORMALITY OF [...] LOZOYA MD Ot V76.12 03/16/2014 APRIL QUINTANILLA [facility] C[facility] CHAPLAIN Ot 733.90 03/16/2014 APRIL QUINTANILLA A HOME CARE CHAPLAIN Ot V65.42 03/16/2014 DWIGHT APRIL A HOME CARE CHAPLAIN Ot V65.49 03/16/2014 DWIGHT APRIL A HOME CARE CHAPLAIN Ot V76.12 03/16/2014 DWIGHT APRIL A HOME CARE CHAPLAIN Ot V76.51 03/16/2014 DWIGHT, APRIL A HOME CARE CHAPLAIN Ot V82.81 03/19/2014 HUMA LOZOYA MD V76.10 BREAST CANCER SCREENING 05/04/2015 FINESSE MOY MD Ot A41.9 SEPSIS, UNSPECIFIED ORGANISM 05/04/2015 FINESSE MOY MD Ot F10.21 ALCOHOL DEPENDENCE, IN REMISSION 05/04/2015 FINESSE MOY MD Ot F12.90 CANNABIS USE, UNSPECIFIED, UNCOMPLICATED 05/04/2015 FINESSE MYO MD Ot F17.210 NICOTINE DEPENDENCE, CIGARETTES, UNCOMPL [...] STATUS 03/03/2016 LI LOPEZ APRN Ot Z79.82 [facility] (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 OF ASPIRIN 03/03/2016 LI LOPEZ APRN Ot Z79.899 OTHER [facility] (CURRENT) DRUG THERAPY 03/03/2016 Ot V76.12 OTH SCREEN MAMMO-MALIGN NEOPLASM OF ETIENNE 03/03/2016 DEVORA PINEDO, HUMA Sparks Ot V76.12 OTH SCREEN MAMMO-MALIGN NEOPLASM OF ETIENNE 03/03/2016 APRIL QUINTANILLA [facility] CARE CHAPLAIN Ot 733.90 BONE CARTILAGE DIS NOS 03/03/2016 APRIL QUINTANILLA [facility] C[facility]LAIN Ot V65.42 COUNSELING ON SUBSTANCE USE AND ABUSE 03/03/2016 APRIL QUINTANILLA [facility] CARE CHAPLAIN Ot V65.49 OTHER SPECIFIED COUNSELING 03/03/2016 APRIL QUINTANILLA [facility] CARE CHAPLAIN Ot V76.12 OTH SCREEN MAMMO-MALIGN NEOPLASM OF ETIENNE 03/03/2016 APRIL QUINTANILLA [facility] C[facility] CHAPLAIN Ot V76.51 SCREEN MAL NEOP-COLON 03/03/2016 APRIL QUINTANILLA [facility] C[facility] CHAPLAIN Ot V82.81 SCREENING FOR OSTEOPOROSIS 03/03/2016 Ot V76.12 OTH SCREEN MAMMO-MALIGN NEOPLASM OF ETIENNE 03/03/2016 HUMA LOZOYA MD Ot V76.12 OTH SCREEN MAMMO-MALIGN NEOPLASM OF ETIENNE 03/03/2016 APRIL QUINTANILLA [facility] CARE CHAPLAIN Ot 733.90 BONE CARTILAGE DIS NOS 03/03/2016 APRIL QUINTANILLA [facility] CARE CHAPLAIN Ot V65.42 COUNSELING ON SUBSTANCE USE AND ABUSE 03/03/2016 APRIL QUINTANILLA [facility] CARE CHAPLAIN Ot V65.49 OTHER SPECIFIED COUNSELING 03/03/2016 APRIL QUINTANILLA [facility] CARE CHAPLAIN Ot V76.12 OTH SCREEN MAMMO-MALIGN NEOPLASM OF ETIENNE 03/03/2016 APRIL QUINTANILLA [facility] CARE CHAPLAIN Ot V76.51 SCREEN MAL NEOP-COLON 03/03/2016 APRIL QUINTANILLA [facility] CARE CHAPLAIN Ot V82.81 SCREENING FOR OSTEOPOROSIS 03/04/2016 LI LOPEZ APRN Ot J44.9 CHRONIC OBSTRUCTIVE PULMONARY DISEASE, U 03/04/2016 LI LOPEZ APRN Ot S82.401A UNSP FRACTURE OF SHAFT OF RIGHT FIBULA, 03/04/2016 LI LOPEZ APRN Ot S99.911A UNSPECIFIED INJURY OF RIGHT ANKLE, INITI 03/04/2016 LI LOPEZ APRN Ot X58.XXXA EXPOSURE TO OTHER SPECIFIED FACTORS, INI 03/04/2016 LI LOPEZ APRN Ot Y92.[address] IN [facility] NON-INSTITUT (PRIVATE 03/04/2016 LI LOPEZ APRN Ot Y99.8 OTHER EXTERNAL CAUSE STATUS 03/04/2016 LI LOPEZ APRN Ot 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 03/04/2016 LI LOPEZ APRN Ot Z79.899 OTHER [facility] (CURRENT) DRUG THERAPY 03/05/2016 LI LOPEZ APRN Ot J44.9 CHRONIC OBSTRUCTIVE PULMONARY DISEASE, U 03/05/2016 LI LOPEZ APRN Ot S82.401A UNSP FRACTURE OF SHAFT OF RIGHT FIBULA, 03/05/2016 LI LOPEZ APRN Ot S99.911A UNSPECIFIED INJURY OF RIGHT ANKLE, INITI 03/05/2016 LI LOPEZ APRN Ot X58.XXXA EXPOSURE TO OTHER SPECIFIED FACTORS, INI 03/05/2016 LI LOPEZ APRN Ot Y92.[address] IN [facility] NON-INSTITUT (PRIVATE 03/05/2016 LI LOPEZ APRN Ot Y99.8 OTHER EXTERNAL CAUSE STATUS 03/05/2016 LI LOPEZ APRN Ot Z79.82 [facility] (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 OF ASPIRIN 03/05/2016 LI LOPEZ APRN Ot Z79.899 OTHER FITNESS SUPERVISOR (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) DRUG THERAPY 07/11/2016 MELISSA GARCIA Ot F10.129 ALCOHOL ABUSE WITH INTOXICATION, UNSPECI 07/11/2016 MELISSA GARCIA Ot F17.210 NICOTINE DEPENDENCE, CIGARETTES, UNCOMPL 07/11/2016 MELISSA GARCIA Ot J44.9 CHRONIC OBSTRUCTIVE PULMONARY DISEASE, U 07/11/2016 MELISSA GARCIA Ot Y90.6 BLOOD ALCOHOL LEVEL OF 120-199 MG/100 ML 07/11/2016 MELISSA GARCIA Ot 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 07/11/2016 MELISSA GARCIA Ot Z79.899 OTHER FITNESS SUPERVISOR (CURRENT) DRUG THERAPY 04/06/2017 MALIA JOLLY MD [...] R 04/06/2017 MALIA JOLLY MD Ot Z79.82 [facility] (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 OF ASPIRIN 04/06/2017 MALIA JOLLY [...] FACTORS, INI 04/06/2017 MELISSA GARCIA Ot Z79.82 [facility] (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 OF ASPIRIN 04/06/2017 MELISSA GARCIA [...] R 04/08/2017 MALIA JOLLY MD Ot 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 04/08/2017 MALIA JOLLY [...] FACTORS, INI 04/08/2017 MELISSA GARCIA Ot 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 04/08/2017 MELISSA GARCIA Ot Z80.8 FAMILY HISTORY OF MALIGNANT NEOPLASM OF 04/08/2017 MELISSA GARCIA Ot Z91.5 PERSONAL HISTORY OF SELF-HARM 05/11/2017 MELISSA GARCIA Ot R06.02 SHORTNESS OF BREATH 05/18/2017 MELISSA GARCIA Ot R06.02 SHORTNESS OF BREATH 05/18/2017 MLEISSA GARCIA Ot R06.02 SHORTNESS OF BREATH 05/19/2017 Ot V76.12 OTH SCREEN MAMMO-MALIGN NEOPLASM OF ETIENNE 05/19/2017 HUMA LOZOYA MD Ot V76.12 OTH SCREEN MAMMO-MALIGN NEOPLASM OF ETIENNE 05/19/2017 DWIGHT, APRIL A HOME CARE CHAPLAIN Ot 733.90 BONE CARTILAGE DIS NOS 05/19/2017 DWIGHT, APRIL A HOME CARE CHAPLAIN Ot V65.42 COUNSELING ON SUBSTANCE USE AND ABUSE 05/19/2017 DWIGHT, APRIL A HOME CARE CHAPLAIN Ot V65.49 OTHER SPECIFIED COUNSELING 05/19/2017 DWIGHT, APRIL A HOME CARE CHAPLAIN Ot V76.12 OTH SCREEN MAMMO-MALIGN NEOPLASM OF ETIENNE 05/19/2017 DWIGHT, APRIL A HOME CARE CHAPLAIN Ot V76.51 SCREEN MAL NEOP-COLON 05/19/2017 DWIGHT, APRIL A HOME CARE CHAPLAIN Ot V82.81 SCREENING FOR OSTEOPOROSIS 05/19/2017 MELISSA GARCIA Ot R06.02 SHORTNESS OF BREATH 05/19/2017 Ot V76.12 OTH SCREEN MAMMO-MALIGN NEOPLASM OF ETIENNE 05/19/2017 HUMA LOZOYA MD Ot V76.12 OTH SCREEN MAMMO-MALIGN NEOPLASM OF ETIENNE 05/19/2017 DWIGHT, APRIL A HOME CARE CHAPLAIN Ot 733.90 BONE CARTILAGE DIS NOS 05/19/2017 DWIGHT, APRIL A HOME CARE CHAPLAIN Ot V65.42 COUNSELING ON SUBSTANCE USE AND ABUSE 05/19/2017 DWIGHT, APRIL A HOME CARE CHAPLAIN Ot V65.49 OTHER SPECIFIED COUNSELING 05/19/2017 DWIGHT, APRIL A HOME CARE CHAPLAIN Ot V76.12 OTH SCREEN MAMMO-MALIGN NEOPLASM OF ETIENNE 05/19/2017 DWIGHT, APRIL A HOME CARE CHAPLAIN Ot V76.51 SCREEN MAL NEOP-COLON 05/19/2017 DWIGHT, APRIL A HOME CARE CHAPLAIN Ot V82.81 SCREENING FOR OSTEOPOROSIS 05/19/2017 MELISSA GARCIA Ot R06.02 SHORTNESS OF BREATH 05/20/2017 Ot V76.12 OTH SCREEN MAMMO-MALIGN NEOPLASM OF ETIENNE 05/20/2017 HUMA LOZOYA MD Ot V76.12 OTH SCREEN MAMMO-MALIGN NEOPLASM OF ETIENNE 05/20/2017 APRIL QUINTANILLA HOME CARE CHAPLAIN Ot 733.90 BONE CARTILAGE DIS NOS 05/20/2017 APRIL QUINTANILLA HOME CARE CHAPLAIN Ot V65.42 COUNSELING ON SUBSTANCE USE AND ABUSE 05/20/2017 JI QUINTANILLAIDI A HOME CARE CHAPLAIN Ot V65.49 OTHER SPECIFIED COUNSELING 05/20/2017 JI QUINTANILLAIDI Jp HOME CARE CHAPLAIN Ot V76.12 OTH SCREEN MAMMO-MALIGN NEOPLASM OF ETIENNE 05/20/2017 APRIL QUINTANILLA HOME CARE CHAPLAIN Ot V76.51 SCREEN MAL NEOP-COLON 05/20/2017 APRIL QUINTANILLA [facility] CARE CHAPLAIN Ot V82.81 SCREENING FOR OSTEOPOROSIS 05/21/2017 HONEY GOLDBERG MD Ot M79.609 PAIN IN UNSPECIFIED LIMB 05/21/2017 HONEY GOLDBERG MD Ot R06.02 SHORTNESS OF BREATH 05/21/2017 HONEY GOLDBERG MD Ot W19.XXXA UNSPECIFIED FALL, INITIAL ENCOUNTER Procedures Code Description Performed By Performed On [facility] 10/09/2011 82672 UA W/ CULTURE IF INDICATED 02/19/2012 32526 ROUTINE VENIPUNCTURE 02/22/2012 24718 CBC 02/22/2012 09993 LIPID PANEL 02/22/2012 85012 CMP 02/22/2012 [id number] GFR CALC (RESULT ONLY) 02/22/2012 19501 TSH 02/23/2012 73297 MAMMOGRAM, SCREENING 02/23/2012 45725 HEMOCCULT 02/23/2012 47718 PAP SMEAR 02/23/2012 Q0091 PAP SMEAR OBTAIN SMEAR 02/23/2012 64449 URINE DRUG SCREEN (IN-HOUSE ) 01/18/2013 63992 MAMMOGRAM, SCREENING 01/19/2013 URINEDRUG URINE DRUG SCREEN (CON'F ) 01/19/2013 98224 BONE DENSITY, DEXA 04/17/2013 GENERAL S Kido, Ken 04/17/2013 15332 BONE MINERAL DENSITY, HEEL US (IN HOUSE) 04/17/2013 32857 XRAY CERVICAL SPINE, 2 OR 3 VIEWS 06/02/2013 54299 ROUTINE VENIPUNCTURE 02/16/2014 33219 MAMMOGRAM, SCREENING 02/16/2014 [id number] GFR CALC (RESULT ONLY) 02/16/2014 05245 CMP 02/16/2014 Results Test Result Range Complete [...] NRG Manual blood basophils/100 leukocytes 0 % NRG Blood erythrocyte morphology finding identification NORMAL NR Comprehensive metabolic panel - 07/11/16 16:13 Serum [...] Status Pt. Type Provider Facility Loc./Unit Complaint [id number] 02/16/2014 11:31:00 02/16/2014 23:59:59 CLS Outpatient HUMA LOZOYA MD [id number] 12/02/2013 06:43:00 12/02/2013 23:59:59 CLS Outpatient HUMA LOZOYA MD [id number] 11/27/2013 11:19:00 11/27/2013 23:59:59 CLS Outpatient HUMA LOZOYA MD [id number] 10/30/2013 12:59:00 10/30/2013 23:59:59 CLS Outpatient ADDIS SPRINGER APRN [id number] 09/18/2013 13:40:00 09/18/2013 23:59:59 CLS Outpatient HUMA LOZOYA MD [id number] 07/25/2013 16:53:00 07/25/2013 23:59:59 CLS Outpatient HUMA OLZOYA MD [id number] 06/02/2013 11:36:00 06/02/2013 23:59:59 CLS Outpatient BERRY BALDERRAMA DO [id number] 06/02/2013 11:36:00 06/02/2013 23:59:59 CLS Outpatient BERRY BALDERRAMA DO [id number] 04/17/2013 10:34:00 04/17/2013 23:59:59 CLS Outpatient APRIL QUINTANILLA APRN [id number] 04/17/2013 10:34:00 04/17/2013 23:59:59 CLS Outpatient APRIL QUINTANILLA APRN [id number] 03/02/2013 13:45:00 03/02/2013 23:59:59 CLS Outpatient HUMA LOZOYA MD [id number] 03/02/2013 13:45:00 03/02/2013 23:59:59 CLS Outpatient HUMA LOZOYA MD [id number] 01/18/2013 14:08:00 01/18/2013 23:59:59 CLS Outpatient HUMA LOZOYA MD [id number] 12/19/2012 11:31:00 12/19/2012 23:59:59 CLS Outpatient HUMA LOZOYA MD [id number] 09/29/2012 16:24:00 09/29/2012 23:59:59 CLS Outpatient HUMA LOZOYA MD [id number] 03/28/2012 11:42:00 03/28/2012 23:59:59 CLS Outpatient HUMA LOZOYA MD [id number] 02/22/2012 09:43:00 02/22/2012 23:59:59 CLS Outpatient TACOS LEDESMA BERRY Benny [id number] 02/19/2012 13:27:00 02/19/2012 23:59:59 CLS Outpatient TACOS LEDESMABERRY [id number] 10/02/2011 09:36:00 10/02/2011 23:59:59 [place] [id number] 10/02/2011 09:36:00 10/02/2011 23:59:59 CLS Outpatient [id number] 06/24/2012 13:29:00 Document Registration [id number] 05/21/2017 21:00:00 05/21/2017 22:16:00 DIS Emergency LI LOPEZ APRN [facility] ER SOB [id number] 05/19/2017 17:05:00 05/19/2017 17:31:00 DIS Outpatient HONEY GOLDBERG MD [facility] ER SOA [id number] 05/11/2017 21:12:00 05/11/2017 21:57:00 DIS Emergency MELISSA GARCIA [facility] ER SOA [id number] 04/06/2017 18:38:00 04/06/2017 20:05:00 DIS Emergency MELISSA GARCIA [facility] ER ANKLE PAIN [id number] 04/06/2017 12:39:00 04/06/2017 15:08:00 DIS Emergency MALIA JOLLY MD [facility] ER DRUG/ETOH ABUSE [id number] 07/11/2016 16:09:00 07/11/2016 19:12:00 DIS Emergency MELISSA GARCIA [facility] ER ALCOHOL INTOX [id number] 03/03/2016 15:38:00 03/03/2016 16:45:00 DIS Emergency LI LOPEZ [facility] ER R ANKLE PAIN [id number] 05/02/2015 16:39:00 05/04/2015 13:14:00 DIS Inpatient FINESSE MOY MD [facility] 4TH RLL PNUEMONIA [id number] 11/19/2013 22:15:00 11/20/2013 10:50:00 DIS Inpatient DANICA LERNER MD [facility] ICU ETOH INTOXICATION, AMS [id number] 10/02/2013 15:43:00 10/03/2013 14:03:00 DIS Inpatient BERRY BALDERRAMA DO [facility] ICU SUICIDAL/HOMICIDAL IDEATION, ETOH INTOXICATION [id number] 04/27/2013 09:25:00 04/27/2013 23:59:59 CLS Outpatient APRIL QUINTANILLA [facility] RAD OSTEOPENIA [id number] 03/06/2013 10:54:00 03/06/2013 23:59:59 CLS Outpatient HUMA LOZOYA MD [facility] RAD SCREENING [id number] 11/14/2012 15:16:00 11/14/2012 23:59:59 CLS Outpatient [id number] 09/19/2012 13:31:00 09/19/2012 23:59:59 CLS Outpatient [id number] 08/22/2012 15:17:00 08/22/2012 23:59:59 CLS Outpatient [id number] 08/04/2012 14:36:00 08/04/2012 23:59:59 CLS Outpatient [id number] 07/20/2012 12:07:00 07/20/2012 13:45:00 DIS Emergency FRANCISCO ACEVEDO DO [facility] ER FELL INJ L ARM [id number] 03/16/2014 10:56:00 Document Registration [id number] 03/04/2012 10:23:00 Document Registration [id number] 01/13/2013 16:48:57 ACT Document Registration [id number] 04/08/2017 14:00:00 04/08/2017 23:59:59 CLS Outpatient DEVORA PINEDO, HUMA [facility]
== END 2017-05-21 22:16 | disposition home or self-care (01) ==
LOC: EDUNIT# 20:59 → ER 21:00
DX: F10.20 Alcohol dependence, uncomplicated (principal); J44.9 Chronic obstructive pulmonary disease, unspecified; F31.9 Bipolar disorder, unspecified; F41.9 Anxiety disorder, unspecified; G47.30 Sleep apnea, unspecified; Z79.82 Long term (current) use of aspirin; Z91.5 Personal history of self-harm; Z80.8 Family history of malignant neoplasm of other organs or systems; Z87.448 Personal history of other diseases of urinary system
CPT/HCPCS: 36415; 71045; 80053; 80320; 85025; 93005

== ENCOUNTER 2017-05-29 16:54 | Emergency (ER) | payer MEDICAID ==
[~2017-05-29] VITALS: Ht 167.6 cm; Wt 44.5 kg
[~2017-05-29 16:54] MED LIST changes: +CODE118S2 PO; -CODE118S4 PO
[2017-05-29] MEDS ORDERED: ACETAMINOPHEN 325 MG TABLET/CAPLET (TYLENOL) PO STA (17:13)
[2017-05-29 17:19] LABS: BILIRUBIN,URINE NEGATIVE (NEGATIVE); CLARITY,URINE CLEAR; COLOR,URINE YELLOW; GLUCOSE, URINE (UA) NEGATIVE (NEGATIVE); KETONES,URINE NEGATIVE (NEGATIVE); LEUKOCYTE ESTERASE ,URINE NEGATIVE (NEGATIVE); NITRITE,URINE NEGATIVE (NEGATIVE); PH,URINE 6.5 (5-9); PROTEIN,URINE NEGATIVE (NEGATIVE); UROBILINOGEN,URINE NORMAL (NORMAL)
[2017-05-29 17:25] LABS: BACTERIA,URINE NEGATIVE /HPF; SQUAMOUS EPITHELIAL CELL,UR RARE /HPF
[2017-05-29 17:30] LABS: AMPHETAMINE SCREEN, URINE NEGATIVE (NEGATIVE); BARBITURATE SCREEN URINE NEGATIVE (NEGATIVE); BENZODIAZEPINES SCREEN URINE NEGATIVE (NEGATIVE); CANNABINOID SCREEN, URINE NEGATIVE (NEGATIVE); COCAINE SCREEN URINE NEGATIVE (NEGATIVE); METHADONE STAT NEGATIVE (NEGATIVE); METHAMPHETAMINE SCREEN URINE S NEGATIVE (NEGATIVE); OPIATE SCREEN URINE NEGATIVE (NEGATIVE); OXYCODONE STAT NEGATIVE (NEGATIVE); PROPOXYPHENE STAT NEGATIVE (NEGATIVE); TRICYCLIC ANTIDEPRESSANTS SCRE NEGATIVE (NEGATIVE)
--- NOTE | 2017-05-29 18:00 | ED General ---
General Chief Complaint: Substance Abuse Stated Complaint: SOA History of Present Illness Date Seen by Provider: May 29, 2017 Time Seen by Provider: 17:10 Initial Comments 62-year-old female presents for EMS for SOA. She is on room air at 97 % SaO2. She reports "it's always easier to breathe when I get here." She's been to the emergency department for times and this month, leaving AMA the first 2 times and being treated for acute alcohol intoxication the most recent time. She has strong odor of alcohol on her breath. She reports she would like something to eat and Tylenol for her ankle pain, for which she is previously been diagnosed with a fracture and told to wear a boot which she has been noncompliant with. She denies any further SOA at this time. Timing/Duration: 1 Hour Severity: Mild Associated Systoms: Denies Symptoms Allergies and Home Medications Allergies Coded Allergies: No Known Drug Allergies (Unverified , 07/20/12) Home Medications Aspirin 81 Mg Tablet.dr, 81 MG PO DAILY, (Reported) Buspirone HCl 10 Mg Tablet, 10 MG PO BID, (Reported) Cefpodoxime Proxetil 200 Mg Tablet, 200 MG PO BID Prescribed by: FINESSE DESAI on 05/04/15 1211 Diclofenac Sodium 75 Mg Tablet.dr, 75 MG PO BID, (Reported) Furosemide 40 Mg Tablet, 40 MG PO DAILY, (Reported) Gabapentin 300 Mg Capsule, 300 MG PO TID, (Reported) Hydrocodone/Acetaminophen 1 Each Tablet, 1 EACH PO Q4H PRN for PAIN Prescribed by: LI LOPEZ on 03/03/16 1620 Levomilnacipran Hydrochloride 80 Mg Cap.sa.24h, 80 MG PO DAILY, (Reported) Loratadine 10 Mg Tablet, 10 MG PO DAILY, (Reported) Lorazepam 0.5 Mg Tablet, 0.5 MG PO DAILY PRN for ANXIETY, (Reported) Multivitamin 1 Each Tablet, 1 TAB PO DAILY, (Reported) Potassium Chloride 20 Meq Tab.er.prt, 20 MEQ PO DAILY, (Reported) Quetiapine Fumarate 100 Mg Tablet, 100 MG PO HS, (Reported) Tizanidine HCl 4 Mg Tablet, 4 MG PO TID PRN for MUSCLE SPASMS, (Reported) Patient Home Medication List Home Medication List Reviewed: Yes Review of Systems Constitutional: no symptoms reported, see HPI Respiratory: see HPI, short of breath Past [place]-Mztofo-Cdkoof Hx Past Med/Social Hx: Reviewed Nursing Past Med/Soc Hx Patient Social History Alcohol Beverage of Choice: Beer, Whiskey, [place] Recreational Drug Use: No Drug of Choice: CANNIBUS Type Used: Cigarettes 2nd Hand Smoke Exposure: Yes Recent Hopitalizations: No Physical Abuse: No Sexual Abuse: No Immunizations Up To Date Tetanus Booster (TDap): Unknown PED Vaccines UTD: No Seasonal Allergies Seasonal Allergies: No Past Medical History Surgeries: Yes (CYST ON OVARY) Respiratory: Yes Sleep Apnea, COPD Currently Using CPAP: No Currently Using BIPAP: No Cardiac: No Neurological: Yes Reproductive Disorders: No Female Reproductive Disorders: Denies Sexually Transmitted Disease: No HIV/AIDS: No Genitourinary: No Gastrointestinal: No Musculoskeletal: Yes (ANKLE FRACTURE) Arthritis, Chronic Back Pain Endocrine: No HEENT: No Cancer: No Psychosocial: Yes (alcoholism) Sleep Difficulties, Anxiety, Suicide Attempts, Bipolar, Depression Nursing Suicide Risk Score: 0 Integumentary: No Blood Disorders: No Family Medical History Alcoholism 19 FATHER G8 BROTHER G8 BROTHER G8 BROTHER G8 SISTER G8 SISTER FH: brain cancer G8 SISTER Neoplasm 19 MOTHER No Pertinent Family Hx Physical Exam Vital Signs Vital Signs - First Documented 05/29/17 17:39 Temp 98.4 Pulse 86 Resp 14 B/P (MAP) 149/101 (117) Pulse Ox 98 O2 Delivery Room Air Capillary Refill : General Appearance: No Apparent Distress, WD/WN Eyes: Bilateral Eye Normal Inspection, Bilateral Eye PERRL, Bilateral Eye EOMI HEENT: PERRL/EOMI, TMs Normal, Normal ENT Inspection, Pharynx Normal Neck: Full Range of Motion, Normal Inspection, Non Tender, Supple Respiratory: Chest Non Tender, Lungs Clear, Normal Breath Sounds Cardiovascular: Regular Rate, Rhythm, Normal Peripheral Pulses Gastrointestinal: Normal Bowel Sounds, Non Tender, Soft Neurologic/Psychiatric: Alert, No Motor/Sensory Deficits, Normal Mood/Affect Progress/Results/Core Measures Suspected Sepsis SIRS Temperature: Pulse: Respiratory Rate: Blood Pressure / Mean: Results/Orders Lab Results Laboratory Tests Test 05/29/17 17:02 Range/Units Urine Color YELLOW Urine Clarity CLEAR Urine pH 6.5 5-9 Urine Specific [place] 1.010 L 1.016-1.022 Urine Protein NEGATIVE NEGATIVE Urine Glucose (UA) NEGATIVE NEGATIVE Urine Ketones NEGATIVE NEGATIVE Urine Nitrite NEGATIVE NEGATIVE Urine Bilirubin NEGATIVE NEGATIVE Urine Urobilinogen NORMAL NORMAL MG/DL Urine Leukocyte Esterase NEGATIVE NEGATIVE Urine RBC (Auto) NEGATIVE NEGATIVE Urine RBC NONE /HPF Urine WBC NONE /HPF Urine Squamous Epithelial Cells RARE /HPF Urine Crystals NONE /LPF Urine Bacteria NEGATIVE /HPF Urine Casts NONE /LPF Urine Mucus NEGATIVE /LPF Urine Culture Indicated NO Urine Opiates Screen NEGATIVE NEGATIVE Urine Oxycodone Screen NEGATIVE NEGATIVE Urine Methadone Screen NEGATIVE NEGATIVE Urine Propoxyphene Screen NEGATIVE NEGATIVE Urine Barbiturates Screen NEGATIVE NEGATIVE Ur Tricyclic Antidepressants Screen NEGATIVE NEGATIVE Urine Phencyclidine Screen NEGATIVE NEGATIVE Urine Amphetamines Screen NEGATIVE NEGATIVE Urine Methamphetamines Screen NEGATIVE NEGATIVE Urine Benzodiazepines Screen NEGATIVE NEGATIVE Urine Cocaine Screen NEGATIVE NEGATIVE Urine Cannabinoids Screen NEGATIVE NEGATIVE My Orders Orders - SHAHANA ROSENTHAL General/Regular (05/29/17 Dinner) Drug Screen Stat (Urine) (05/29/17 17:13) Ua Culture If Indicated (05/29/17 17:13) Acetaminophen Tablet/Caplet (Tylenol T (05/29/17 17:13) Vital Signs/I&O 05/29/17 05/29/17 17:39 18:08 Temp 98.4 Pulse 86 86 Resp 14 16 B/P (MAP) 149/101 (117) 149/101 Pulse Ox 98 98 O2 Delivery Room Air Room Air Capillary Refill : Progress Note : Time: 17:10 Progress Note Initial evaluation completed, patient ambulated to bathroom with minimal assistance and steady gait. No requests at this time other than Tylenol, will administer 650 mg orally. regular dinner tray has been ordered and will continue to monitor. 1730 patient requesting discharge to home. Denies any complaints at this time. Discussed having her wait until she is eating her male then she be dismissed. 1745 patient denies any shortness of air, her SaO2 is remain greater than 97% on room air. Discharge instructions and return precautions reviewed with her. Taxi notified for transportation home. Departure Impression Primary Impression: Alcohol intoxication Qualified Codes: F10.920 - Alcohol use, unspecified with intoxication, uncomplicated Disposition: 01 HOME, SELF-CARE Condition: Stable Departure-Patient Inst. Decision time for Depature: 17:50 Referrals: HUMA LOZOYA MD (PCP/Family) Primary Care Physician Patient Instructions: ALCOHOL AND SUBSTANCE ABUSE Add. Discharge Instructions: Increase water intake. Eat regular foods every [address] taking alcohol products. Return to emergency department for new or or sitting problems. All discharge instructions reviewed with patient and/or family. Voiced understanding. Copy Copies To 1: HUMA LOZOYA MD, AMY ARNP May 29, 2017 18:00
[2017-05-29 18:08] VITALS: BP 149/101
== END 2017-05-29 18:10 | disposition home or self-care (01) ==
LOC: EDUNIT# 16:54 → ER 16:55
DX: F10.129 Alcohol abuse with intoxication, unspecified (principal); G47.30 Sleep apnea, unspecified; J44.9 Chronic obstructive pulmonary disease, unspecified; G47.9 Sleep disorder, unspecified; F41.9 Anxiety disorder, unspecified; F31.9 Bipolar disorder, unspecified; Z91.5 Personal history of self-harm; F12.90 Cannabis use, unspecified, uncomplicated; Z87.81 Personal history of (healed) traumatic fracture; Z77.22 Contact with and (suspected) exposure to environmental tobacco smoke (acute) (chronic); Z79.82 Long term (current) use of aspirin
CPT/HCPCS: 80306; 81000; 99283

== ENCOUNTER 2017-06-08 20:28 | Emergency (ER) | payer MEDICAID ==
[~2017-06-08] VITALS: Ht 152.4 cm; Wt 49.9 kg
--- OUTSIDE RECORDS SUMMARY | 2017-06-08 20:36 | XMS REPORT ---
Author Author HUMA LOZOYA [facility] Address [address] [place] [address] Care Team Providers Care [employer] Name Role Phone HUMA LOZOYA Unavailable PROBLEMS Type Condition ICD9-CM Code [id number] Code Onset Dates Condition Status SNOMED Code Problem Other and unspecified hyperlipidemia 272.4 Active 19692405 Problem Alcoholism F10.20 Active 9652145 Problem Asthma J45.909 Active 164619331 Problem Other chronic pain G89.29 Active 81498429 Problem Arthritis M19.90 Active 7950936 Problem Closed fracture of shaft of right fibula, unspecified fracture morphology, initial encounter S82.401A Active 16095094 Problem Bipolar disorder F31.9 Active 62821331 Problem Arthropathy, unspecified M12.9 Active 903261903 Problem Major depressive disorder, single episode F32.9 Active 91733355 ALLERGIES No Information ENCOUNTERS Encounter Location Date Diagnosis [place] [address] [address] Apr, [place] [address] [place] [id number] [place] [address] 89572- 7781 Apr, Encounter for immunization Z23 and Injury of right ankle, initial encounter S99.911A [place] [address] [place] [id number] [place] [address] 33258- 7287 Dec, [place] [address] [place] [id number] [place] [address] 86847- 2898 Nov, Pain in right ankle and joints of right foot M25.571 ; Other chronic pain G89.29 and Post-traumatic arthritis of right ankle M19.171 [place] [address] [place] [id number] [place] [address] 74290- 7070 Oct, Arthritis M19.90 [place] [id number] [address] 13 Aug, 2016 Arthritis M19.90 [facility] [address] [place] [id number] [place] [address] 50641- 9142 Aug, [facility] [id number] [place] [address] 94399- 2923 Jul, [facility] [address] [place] [id number] [place] [address] 08671- 2626 June, Arthropathy, unspecified M12.9 [facility] [address] [place] [id number] [place] [address] 13742- 3855 May, Asthma J45.909 and Major depressive disorder, single episode F32.9 [facility] [address] [place] [id number] [place] [address] 54437- 4436 Mar, Closed fracture of shaft of right fibula, unspecified fracture morphology, initial encounter S82.401A [facility] [address] [place] [id number] [place] [address] 94593- 5924 Feb, [facility] [address] [place] [id number] [place] [address] 96348- 5977 Feb, [facility] [id number] [place] [address] 21809- 5556 Nov, [facility] [id number] [place] [address] 88431- 2070 Nov, Bipolar disorder F31.9 ; Encounter for immunization Z23 and Asthma J45.909 [facility] [address] [address]- 0822 Aug, [facility] [address] [place] [id number] [place] [address] 65483- 6995 May, [facility] [id number] [place] [address] 02561- 5840 Apr, [facility] [address] [place] [id number] [place] [address] 88363- 0539 Apr, [facility] [address] [place] [id number] [place] [address] 42086- 4228 Apr, URI (upper respiratory infection) J06.9 and Bipolar disorder F31.9 [facility] [address] [place] [id number] [place] [address] 54771- 8956 Feb, [facility] [address] 70081- 1266 Feb, Asthma J45.909 and Alcoholism F10.20 [facility] [address] [place] [id number] [place] [address] 02155- 5242 Jan, [facility] [address] [place] [id number] [place] [address] 74253- 8632 Jan, [facility] [address] [place] [id number] [place] [address] 28879- 5831 Jan, [facility] [address] [place] [id number] [place] [address] 23341- 3375 Nov, Alcoholism F10.20 and Anxiety F41.9 [facility] [address] [place] [id number] [place] [address] 39539- 6102 Jul, Anxiety 300.00 and Arthropathy 716.90 [facility] [address] [place] [id number] [place] [address] 79637- 6047 Jul, [facility] [address] [place] [id number] [place] [address] 68198- 0387 Jul, Anxiety state 300.00 [facility] [address] [place] [id number] [place] [address] 30832- 3901 May, [facility] [address] 33619- 7136 May, [facility] [address] [place] [id number] [place] [address] 98492- 2455 Apr, [facility] [address] [place] [address]- 5353 Apr, [facility] [place] [facility] [address] [id number] [place] [address]- 7464 Mar, [facility] [place] [facility] [address] [id number] [place] [address]- 2207 Mar, [facility] [place] [facility] [address] [id number] [place] [address]- 5637 Feb, [facility] [place] [facility] [address] [id number] [place] [address]- 5252 Feb, [facility] [place] [facility] [address] [id number] [place] [address]- 4000 Feb, [facility] [place] [facility] [address] [id number] [place] [address]- 9210 Feb, [facility] [place] [facility] [address] [id number] [place] [address]- 7309 Jan, [facility] [place] [facility] [address] [id number] [place] [address]- 7816 Jan, [facility] [place] [facility] [address] [id number] [place] [address]- 1161 Jan, [facility] [place] [facility] [address] [facility] [id number] [place] [address]- 1419 Jan, [facility] [place] [facility] [address] [id number] [place] [address]- 2933 Nov, [facility] [place] [facility] [address] [id number] [place] [address]- 8844 Nov, [facility] [place] [facility] [address] [id number] [place] [address]- 3037 Nov, [facility] [place] [facility] [address] [id number] [place] [address]- 1659 Nov, [facility] [place] [facility] [address] [id number] [place] [address]- 5201 Nov, [facility] [place] [facility] [address] [id number] [place] [address]- 1398 Nov, [facility] [place] [facility] [address] [id number] [place] [address]- 1232 Nov, [facility] [place] [facility] [address] [id number] [place] [address]- 0294 Nov, [facility] [place] [facility] [address] [id number] [place] [address]- 3074 Nov, [facility] [place] [facility] [address] [id number] [place] [address]- 2880 Nov, [facility] [place] [facility] [address] [id number] [place] [address]- 5756 Nov, [facility] [place] [facility] [address] [id number] [place] [address]- 7517 Nov, [facility] [place] [facility] [address] [id number] [place] [address]- 7590 Nov, [facility] [place] [facility] [address] [id number] [place] [address]- 0527 30 Oct, 2013 [facility] [place] [facility] [address] [id number] [place] [address]- 9277 30 Oct, 2013 [facility] [place] [facility] [address] [id number] [place] [address]- 4135 26 Oct, 2013 [facility] [place] [facility] [address] [id number] [place] [address]- 3467 26 Oct, 2013 [facility] [place] [facility] [address] [id number] [place] [address]- 6010 08 Oct, 2013 [facility] [place] [facility] [address] [id number] [place] [address]- 1826 08 Oct, 2013 [facility] [place] [facility] [address] [id number] [place] [address]- 2118 04 Oct, 2013 [facility] [place] [facility] [address] [id number] [place] [address]- 1193 Oct, 2013 [facility] [place] [facility] [address] [id number] [place] [address]- 7298 Oct, 2013 [facility] [place] [facility] [address] [id number] [place] [address]- 1748 Oct, [facility] [place] [facility] [address] [id number] [place] [address]- 6953 Oct, [facility] [place] [facility] [address] [id number] [place] [address]- 5142 Oct, [facility] [place] [facility] [address] [id number] [place] [address]- 2524 Sep, [facility] [place] [facility] [address] [id number] [place] [address]- 5110 Sep, [facility] [place] [facility] [address] [id number] [place] [address]- 9900 Sep, [facility] [place] [facility] [address] [id number] [place] [address]- 2943 Sep, [facility] [place] [facility] [address] [id number] [place] [address]- 1128 Sep, [facility] [place] [facility] [address] [id number] [place] [address]- 2560 Sep, [facility] [place] [facility] [address] [id number] [place] [address]- 3880 Sep, [facility] [place] [facility] [address] [id number] [place] [address]- 7321 Sep, [facility] [place] [facility] [address] [id number] [place] [address]- 7775 Aug, [facility] [place] [facility] [address] [id number] [place] [address]- 2799 Aug, [facility] [place] [facility] [address] [id number] [place] [address]- 5124 Aug, [facility] [place] [facility] [address] [id number] [place] [address]- 5290 Aug, [facility] [place] [facility] [address] [id number] [place] [address]- 7686 Jul, [facility] [place] [facility] [address] [id number] [place] [address]- 3346 Jul, [facility] [place] [facility] [address] [id number] [place] [address]- 0262 Jul, [facility] [place] [facility] [address] [id number] [place] [address]- 8204 Jul, [facility] [place] [facility] [address] [id number] [place] [address]- 3716 Jul, [facility] [place] [facility] [address] [id number] [place] [address]- 2313 Jul, [facility] [place] [facility] [address] [id number] [place] [address]- 5003 June, [facility] [place] [facility] [address] [id number] [place] [address]- 7271 June, [facility] [place] [facility] [address] [id number] [place] [address]- 3352 June, [facility] [place] [facility] [address] [id number] [place] [address]- 7421 June, [facility] [place] [facility] [address] [id number] [place] [address]- 3298 June, [facility] [place] [facility] [address] [id number] [place] [address]- 9846 June, [facility] [place] [facility] [address] [id number] [place] [address]- 4386 May, [facility] [place] [facility] [address] [id number] [place] [address]- 9682 May, [facility] [place] [facility] [address] [id number] [place] 7365 May, [facility] [place] [facility] [address] [id number] [place] [address]- 9352 May, [facility] [place] [facility] [address] [id number] [place] [address]- 6181 May, [facility] [place] [facility] [address] [id number] [place] [address]- 8922 May, [facility] [place] [facility] [address] [id number] [place] [address]- 6603 May, [facility] [place] [facility] [address] [id number] [place] [address]- 1596 May, [facility] [place] [facility] [address] [id number] [place] [address]- 0234 May, [facility] [place] [facility] [address] [id number] [place] [address]- 5246 May, [facility] [place] [facility] [address] [id number] [place] [address]- 4192 Apr, [facility] [place] [facility] [address] [id number] [place] [address]- 1943 Apr, [facility] [place] [facility] [address] [id number] [place] [address]- 4732 Apr, [facility] [place] [facility] [address] [id number] [place] [address]- 4578 Apr, [facility] [place] [facility] [address] [id number] [place] [address]- 7502 Apr, [facility] [place] [facility] [address] [id number] [place] [address]- 1080 Apr, [facility] [place] [facility] [address] [id number] [place] [address]- 3028 Apr, [facility] [place] [facility] [address] [id number] [place] [address]- 1064 Apr, [facility] [place] [facility] [address] [id number], [place] [address]- 8879 Apr, [facility] [place] [facility] [address] [id number] [place] [address]- 5804 Apr, [facility] [place] [facility] [address] [id number] [place] [address]- 1164 Apr, [facility] [place] [facility] [address] [id number] [place] [address]- 4888 Apr, [facility] [place] [facility] [address] [id number] [place] [address]- 5059 Mar, [facility] [place] [facility] [address] [id number] [place] [address]- 0351 Mar, [facility] [place] [facility] [address] [id number] [place] [address]- 8867 Mar, [facility] [place] [facility] [address] [id number] [place] [address]- 2503 Mar, [facility] [place] [facility] [address] [id number] [place] [address]- 4530 Feb, [facility] [place] [facility] [address] [id number] [place] [address]- 1525 Feb, [facility] [place] [facility] [address] [id number] [place] [address]- 1184 Feb, [facility] [place] [facility] [address] [id number] [place] [address]- 0770 Feb, [facility] [place] [facility] [address] [id number], [place] [address]- 0296 Feb, [facility] [place] [facility] [address] [id number] [place] [address]- 4663 Feb, [facility] [place] [facility] [address] [id number] [place] [address]- 2191 Feb, [facility] [place] [facility] [address] [id number], [place] [address]- 8704 Feb, [facility] [place] [facility] [address] [id number] [place] [address]- 0925 Feb, [facility] [address] [id number] [place] [address]- 6949 Feb, [facility] [address] [id number] [place] [address]- 8354 Jan, [facility] [address] [id number] [place] [address]- 0897 Jan, [facility] [address] [id number] [place] [address]- 9368 Jan, [facility] [address] [id number] [place] [address]- 4807 Jan, [facility] [address] [id number] [place] [address]- 2620 Jan, [facility] [address] [id number] [place] [address]- 9097 Jan, [facility] [address] [id number] [place] [address]- 9952 Jan, [facility] [address] [id number] [place] [address]- 6365 Jan, [facility] [address] [id number] [place] [address]- 9593 Jan, [facility] [place] [facility] [address] [id number], [place] [address]- 7487 Dec, [facility] [place] [facility] [address] [id number] [place] [address]- 7532 Dec, [facility] [place] [facility] [address] [id number] [place] [address]- 7252 Dec, [facility] [place] [facility] [address] [id number] [place] [address]- 1262 Dec, [facility] [place] [facility] [address] [id number] [place] [address]- 8794 Nov, [facility] [place] [facility] [address] [id number] [place] [address]- 4384 Nov, [facility] [place] [facility] [address] [id number] [place] [address]- 7738 Nov, [facility] [place] [facility] [address] [id number] [place] [address]- 3773 Nov, [facility] [place] [facility] [address] [id number] [place] [address]- 8135 Nov, [facility] [place] [facility] [address] [id number] [place] 8269 Nov, [facility] [place] [facility] [address] [id number] [place] [address]- 6037 Oct, [facility] [place] [facility] [address] [id number] [place] [address]- 4074 Oct, [facility] [place] [facility] [address] [id number] [place] [address]- 1527 Sep, [facility] [place] [facility] [address] [id number] [place] [address]- 4020 Sep, [facility] [place] [facility] [address] [id number] [place] [address]- 1621 Sep, [facility] [place] [facility] [address] [id number] [place] [address]- 6010 Sep, [facility] [place] [facility] [address] [id number] [place] [address]- 4367 Aug, [facility] [place] [facility] [address] [id number] [place] [address]- 4602 Aug, [facility] [place] [facility] [address] [id number] [place] [address]- 2230 Aug, [facility] [place] [facility] [address] [id number] [place] [address]- 9594 Jul, [facility] [place] [facility] [address] [id number] [place] [address]- 2546 Jul, [facility] [address] [id number] [place] [address]- 9190 Jul, [facility] [address] [id number] [place] [address]- 2546 Jul, [facility] [address] [id number] [place] [address] 2546 June, [facility] [address] [id number] [place] [address]- 2546 June, [facility] [address] [id number] [place] [address]- 6016 May, [facility] [address] [id number] [place] [address]- 2546 May, [facility] [address] [id number] [place] [address]- 8366 Apr, [facility] [address] [id number] [place] [address]- 5203 Apr, [facility] [address] [id number] [place] [address]- 4989 Mar, [facility] [address] [id number] [place] [address]- 8666 Mar, [facility] [address] [id number] [place] [address]- 2546 Feb, [facility] [address] [id number] [place] [address]- 2541 Feb, [facility] [address] [id number] [place] [address]- 2546 Feb, [facility] [address] [id number] [place] [address]- 2546 Feb, [facility] [address] [id number] [place] [address]- 3013 Feb, [facility] [place] [facility] [address] [id number] [place] [address]- 5006 16 Feb, 2012 [facility] [place] [facility] [address] [id number] [place] [address]- 7106 16 Feb, 2012 [facility] [place] [facility] [address] [id number] [place] [address]- 5179 14 Feb, 2012 [facility] [place] [facility] [address] [id number] [place] [address]- 6343 11 Feb, 2012 [facility] [place] [facility] [address] [id number] [place] [address]- 4346 Jan, [facility] [place] [facility] [address] [id number] [place] [address]- 7937 Jan, [facility] [place] [facility] [address] [id number] [place] [address]- 1632 Jan, [facility] [place] [facility] [address] [id number] [place] [address]- 8691 Jan, [facility] [place] [facility] [address] [id number] [place] [address] Dec, [facility] [place] [facility] [address] [id number] [place] [address] Dec, [facility] [place] [facility] [address] [id number] [place] [address] Dec, [facility] [place] [facility] [address] [id number] [place] [address] Dec, [facility] [place] [facility] [address] [id number] [place] [address] Oct, [facility] [place] [facility] [address] [id number] [place] [address] Sep, [facility] [place] [facility] [address] [id number] [place] [address] Sep, [facility] [place] [facility] [id number] [address] Aug, [facility] [id number] [place] [address] Jul, [facility] [id number] [address] June, [facility] [id number] [address] June, [facility] [id number] [address] May, [facility] [id number] [place] [address] Apr, [facility] [id number] [place] [address] Mar, [facility] [id number] [place] [address] Mar, [facility] [id number] [place] [address] Feb, [facility] [id number] [place] [address] Dec, [facility] [id number] [address] Nov, [facility] [id number] [address] Sep, [facility] [id number] [address] Aug, IMMUNIZATIONS No Known Immunizations SOCIAL HISTORY Never Assessed REASON FOR VISIT Tramadol PLAN OF CARE VITAL SIGNS MEDICATIONS Medication Instructions Dosage Frequency Start Date End Date Duration Status Tramadol HCl 50 mg Orally every 6 hrs 1 tablet as needed 6h 16 Mar, 2016 Active RESULTS No Results PROCEDURES No Known procedures INSTRUCTIONS MEDICATIONS ADMINISTERED No Known Medications MEDICAL (GENERAL) HISTORY Type Description Date Medical History asthma Medical History headache Medical History chronic pain-low back with spasms Medical History anxiety Medical History depression Hospitalization History childbirth x 4
--- OUTSIDE RECORDS SUMMARY | 2017-06-08 20:39 | XMS REPORT | Continuity of Care Document ---
Author [facility] Address Unknown Phone Unavailable Allergies Active Description Code Type Severity Reaction Onset Reported/Identified Relationship to Patient Clinical Status Yes No Known Drug Allergies [id number] Drug Allergy Unknown N/A 07/20/2012 Medications There [...] MD 465.9 Upper Respiratory Infection 04/01/2010 DWIGHT GUEST SPECIALIST, APRIL A 305.1 NONDEPENDENT TOBACCO USE DISORDER 04/01/2010 DWIGHT GUEST SPECIALIST, APRIL A 465.9 Upper Respiratory Infection 04/01/2010 DWIGHT GUEST SPECIALIST, APRIL A 305.1 NONDEPENDENT TOBACCO USE DISORDER 04/01/2010 DWIGHT GUEST SPECIALIST, APRIL A 465.9 Upper Respiratory Infection 04/01/2010 [...] TUNNEL SYNDROME 05/14/2010 HUMA LOZOYA MD V72.31 Tube Teller Exam, Routine 05/14/2010 BALDERRAMA DO, BERRY K 354.0 CARPAL TUNNEL SYNDROME 05/14/2010 BALDERRAMA DO BERRY K V72.31 Tube Teller Exam, Routine 05/14/2010 BALDERRAMA DO, BERRY K 354.0 CARPAL TUNNEL SYNDROME 05/14/2010 BALDERRAMA DO, BERRY K V72.31 Tube Teller Exam, Routine 05/14/2010 DEVORA PINEDO, HUMA 354.0 CARPAL TUNNEL SYNDROME 05/14/2010 DEVORA PINEDO, HUMA V72.31 Tube Teller Exam, Routine 05/14/2010 354.0 CARPAL TUNNEL SYNDROME 05/14/2010 V72.31 Tube Teller Exam, Routine 05/14/2010 DEVORA PINEDO, HUMA 354.0 CARPAL TUNNEL SYNDROME 05/14/2010 DEVORA PINEDO, HUMA V72.31 Tube Teller Exam, Routine 05/14/2010 DEVORA PINEDO, HUMA 354.0 CARPAL TUNNEL SYNDROME 05/14/2010 DEVORA PINEDO, HUMA V72.31 Tube Teller Exam, Routine 05/14/2010 DEVORA PINEDO, HUMA 354.0 CARPAL TUNNEL SYNDROME 05/14/2010 HUMA LOZOYA MD V72.31 Tube Teller Exam, Routine 05/14/2010 DEVORA PINEDO, HUMA 354.0 CARPAL TUNNEL SYNDROME 05/14/2010 HUMA LOZOYA MD V72.31 Tube Teller Exam, Routine 05/14/2010 HUMA LOZOYA MD 354.0 CARPAL TUNNEL SYNDROME 05/14/2010 HUMA LOZOYA MD V72.31 Tube Teller Exam, Routine 05/14/2010 DWIGHT FAIRCHILD, APRIL A 354.0 CARPAL TUNNEL SYNDROME 05/14/2010 APRIL QUINTANILLA APRN A V72.31 Tube Teller Exam, Routine 05/14/2010 DWIGHT FAIRCHILD, APRIL A 354.0 CARPAL TUNNEL SYNDROME 05/14/2010 APRIL QUINTANILLA APRN A V72.31 Tube Teller Exam, Routine 05/14/2010 BALDERRAMA DO, BERRY K 354.0 CARPAL TUNNEL SYNDROME 05/14/2010 BALDERRAMA DO, BERRY K V72.31 Tube Teller Exam, Routine 05/14/2010 BALDERRAMA DO, BERRY K 354.0 CARPAL TUNNEL SYNDROME 05/14/2010 BALDERRAMA DO, BERRY K V72.31 Tube Teller Exam, Routine 05/14/2010 DEVORA PINEDO, HUMA 354.0 CARPAL TUNNEL SYNDROME 05/14/2010 HUMA LOZOYA MD V72.31 Tube Teller Exam, Routine 05/14/2010 DEVORA PINEDO, HUMA 354.0 CARPAL TUNNEL SYNDROME 05/14/2010 HUMA LOZOYA MD V72.31 Tube Teller Exam, Routine 05/14/2010 ADDIS SPRINGER APRN 354.0 CARPAL TUNNEL SYNDROME 05/14/2010 ADDIS SPRINGER APRN A V72.31 Tube Teller Exam, Routine 05/14/2010 HUMA LOZOYA MD 354.0 CARPAL TUNNEL SYNDROME 05/14/2010 HUMA LOZOYA MD V72.31 Tube Teller Exam, Routine 05/14/2010 HUMA LOZOYA MD 354.0 CARPAL TUNNEL SYNDROME 05/14/2010 HUMA LOZOYA MD V72.31 Tube Teller Exam, Routine 05/14/2010 354.0 CARPAL TUNNEL SYNDROME 05/14/2010 V72.31 Tube Teller Exam, Routine 05/14/2010 HUMA LOZOYA MD 354.0 CARPAL TUNNEL SYNDROME 05/14/2010 HUMA LOZOYA MD V72.31 Tube Teller Exam, Routine 06/09/2010 HUMA LOZOYA MD 381.81 [...] LOZOYA MD Ot V76.12 03/16/2014 APRIL QUINTANILLA GUEST SPECIALIST Ot 733.90 03/16/2014 APRIL QUINTANILLA A GUEST SPECIALIST Ot V65.42 03/16/2014 DWIGHT APRIL A GUEST SPECIALIST Ot V65.49 03/16/2014 DWIGHT APRIL A GUEST SPECIALIST Ot V76.12 03/16/2014 DWIGHT APRIL A GUEST SPECIALIST Ot V76.51 03/16/2014 DWIGHT, APRIL A GUEST SPECIALIST Ot V82.81 03/19/2014 HUMA LOZOYA MD V76.10 [...] STATUS 03/03/2016 LI LOPEZ APRN Ot Z79.82 RESIDENTIAL (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 OF ASPIRIN 03/03/2016 LI LOPEZ APRN Ot Z79.899 OTHER RESIDENTIAL (CURRENT) DRUG THERAPY 03/03/2016 Ot V76.12 OTH SCREEN MAMMO-MALIGN NEOPLASM OF ETIENNE 03/03/2016 DEVORA PINEDO, HUMA Sparks Ot V76.12 OTH SCREEN MAMMO-MALIGN NEOPLASM OF ETIENNE 03/03/2016 APRIL QUINTANILLA GUEST SPECIALIST Ot 733.90 BONE CARTILAGE DIS NOS 03/03/2016 APRIL QUINTANILLA GUEST SPECIALIST Ot V65.42 COUNSELING ON SUBSTANCE USE AND ABUSE 03/03/2016 APRIL QUINTANILLA GUEST SPECIALIST Ot V65.49 OTHER SPECIFIED COUNSELING 03/03/2016 APRIL QUINTANILLA GUEST SPECIALIST Ot V76.12 OTH SCREEN MAMMO-MALIGN NEOPLASM OF ETIENNE 03/03/2016 APRIL QUINTANILLA GUEST SPECIALIST Ot V76.51 SCREEN MAL NEOP-COLON 03/03/2016 APRIL QUINTANILLA GUEST SPECIALIST Ot V82.81 SCREENING FOR OSTEOPOROSIS 03/03/2016 Ot V76.12 OTH SCREEN MAMMO-MALIGN NEOPLASM OF ETIENNE 03/03/2016 HUMA LOZOYA MD Ot V76.12 OTH SCREEN MAMMO-MALIGN NEOPLASM OF ETIENNE 03/03/2016 APRIL QUINTANILLA GUEST SPECIALIST Ot 733.90 BONE CARTILAGE DIS NOS 03/03/2016 APRIL QUINTANILLA GUEST SPECIALIST Ot V65.42 COUNSELING ON SUBSTANCE USE AND ABUSE 03/03/2016 APRIL QUINTANILLA GUEST SPECIALIST Ot V65.49 OTHER SPECIFIED COUNSELING 03/03/2016 APRIL QUINTANILLA GUEST SPECIALIST Ot V76.12 OTH SCREEN MAMMO-MALIGN NEOPLASM OF ETIENNE 03/03/2016 APRIL QUINTANILLA GUEST SPECIALIST Ot V76.51 SCREEN MAL NEOP-COLON 03/03/2016 APRIL QUINTANILLA GUEST SPECIALIST Ot V82.81 SCREENING FOR OSTEOPOROSIS 03/04/2016 LI LOPEZ APRN Ot J44.9 CHRONIC OBSTRUCTIVE PULMONARY DISEASE, U 03/04/2016 LI LOPEZ APRN Ot S82.401A UNSP FRACTURE OF SHAFT OF RIGHT FIBULA, 03/04/2016 LI LOPEZ APRN Ot S99.911A UNSPECIFIED INJURY OF RIGHT ANKLE, INITI 03/04/2016 LI LOPEZ APRN Ot X58.XXXA EXPOSURE TO OTHER SPECIFIED FACTORS, INI 03/04/2016 LI LOPEZ APRN Ot Y92.[address] IN [facility] NON-INSTITUT (PRIVATE 03/04/2016 LI LOPEZ APRN Ot Y99.8 OTHER EXTERNAL CAUSE STATUS 03/04/2016 LI LOPEZ APRN Ot Z79.82 CLUTCH ASSEMBLER (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 OF ASPIRIN 03/04/2016 LI LOPEZ APRN Ot Z79.899 OTHER RESIDENTIAL (CURRENT) DRUG THERAPY 03/05/2016 LI LOPEZ APRN Ot J44.9 CHRONIC OBSTRUCTIVE PULMONARY DISEASE, U 03/05/2016 LI LOPEZ APRN Ot S82.401A UNSP FRACTURE OF SHAFT OF RIGHT FIBULA, 03/05/2016 LI LOPEZ APRN Ot S99.911A UNSPECIFIED INJURY OF RIGHT ANKLE, INITI 03/05/2016 LI LOPEZ APRN Ot X58.XXXA EXPOSURE TO OTHER SPECIFIED FACTORS, INI 03/05/2016 LI LOPEZ APRN Ot Y92.[address] IN [facility] NON-INSTITUT (PRIVATE 03/05/2016 LI LOPEZ APRN Ot Y99.8 OTHER EXTERNAL CAUSE STATUS 03/05/2016 LI LOPEZ APRN Ot Z79.82 RESIDENTIAL (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 OF ASPIRIN 03/05/2016 LI LOPEZ APRN Ot Z79.899 OTHER CLUTCH ASSEMBLER (CURRENT) DRUG THERAPY 07/11/2016 MELISSA GARCIA Ot F10.129 ALCOHOL ABUSE WITH INTOXICATION, UNSPECI 07/11/2016 MELISSA GARCIA Ot F17.210 NICOTINE DEPENDENCE, CIGARETTES, UNCOMPL 07/11/2016 MELISSA GARCIA Ot J44.9 CHRONIC OBSTRUCTIVE PULMONARY DISEASE, U 07/11/2016 MELISSA GARCIA Ot Y90.6 BLOOD ALCOHOL LEVEL OF 120-199 MG/100 ML 07/11/2016 MELISSA GARCIA Ot Z79.82 CLUTCH ASSEMBLER (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 OF ASPIRIN 07/11/2016 MELISSA GARCIA Ot Z79.899 OTHER CLUTCH ASSEMBLER (CURRENT) DRUG THERAPY 04/06/2017 MALIA JOLLY MD [...] R 04/06/2017 MALIA JOLLY MD Ot Z79.82 RESIDENTIAL (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 OF ASPIRIN 04/06/2017 MALIA JOLLY [...] FACTORS, INI 04/06/2017 MELISSA GARCIA Ot Z79.82 RESIDENTIAL (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 OF ASPIRIN 04/06/2017 MELISSA GARCIA [...] R 04/08/2017 MALIA JOLLY MD Ot Z79.82 CLUTCH ASSEMBLER (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 OF ASPIRIN 04/08/2017 MALIA JOLLY [...] FACTORS, INI 04/08/2017 MELISSA GARCIA Ot Z79.82 CLUTCH ASSEMBLER (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 OF ASPIRIN 04/08/2017 MELISSA GARCIA [...] NEOPLASM OF ETIENNE 05/19/2017 DWIGHT, APRIL A GUEST SPECIALIST Ot 733.90 BONE CARTILAGE DIS NOS 05/19/2017 DWIGHT, APRIL A GUEST SPECIALIST Ot V65.42 COUNSELING ON SUBSTANCE USE AND ABUSE 05/19/2017 DWIGHT, APRIL A GUEST SPECIALIST Ot V65.49 OTHER SPECIFIED COUNSELING 05/19/2017 DWIGHT, APRIL A GUEST SPECIALIST Ot V76.12 OTH SCREEN MAMMO-MALIGN NEOPLASM OF ETIENNE 05/19/2017 DWIGHT, APRIL A GUEST SPECIALIST Ot V76.51 SCREEN MAL NEOP-COLON 05/19/2017 DWIGHT, APRIL A GUEST SPECIALIST Ot V82.81 SCREENING FOR OSTEOPOROSIS 05/19/2017 MELISSA GARCIA Ot R06.02 SHORTNESS OF BREATH 05/19/2017 Ot V76.12 OTH SCREEN MAMMO-MALIGN NEOPLASM OF ETIENNE 05/19/2017 HUMA LOZOYA MD Ot V76.12 OTH SCREEN MAMMO-MALIGN NEOPLASM OF ETIENNE 05/19/2017 DWIGHT, APRIL A GUEST SPECIALIST Ot 733.90 BONE CARTILAGE DIS NOS 05/19/2017 DWIGHT, APRIL A GUEST SPECIALIST Ot V65.42 COUNSELING ON SUBSTANCE USE AND ABUSE 05/19/2017 DWIGHT, APRIL A GUEST SPECIALIST Ot V65.49 OTHER SPECIFIED COUNSELING 05/19/2017 DWIGHT, APRIL A GUEST SPECIALIST Ot V76.12 OTH SCREEN MAMMO-MALIGN NEOPLASM OF ETIENNE 05/19/2017 DWIGHT, APRIL A GUEST SPECIALIST Ot V76.51 SCREEN MAL NEOP-COLON 05/19/2017 DWIGHT, APRIL A GUEST SPECIALIST Ot V82.81 SCREENING FOR OSTEOPOROSIS 05/19/2017 MELISSA GARCIA Ot R06.02 SHORTNESS OF BREATH 05/20/2017 Ot V76.12 OTH SCREEN MAMMO-MALIGN NEOPLASM OF ETIENNE 05/20/2017 DEVORA PINEDO, HUMA Sparks Ot V76.12 OTH SCREEN MAMMO-MALIGN NEOPLASM OF ETIENNE 05/20/2017 APRIL QUINTANILLA GUEST SPECIALIST Ot 733.90 BONE CARTILAGE DIS NOS 05/20/2017 DWIGHTJIAPRIL Jp GUEST SPECIALIST Ot V65.42 COUNSELING ON SUBSTANCE USE AND ABUSE 05/20/2017 DWIGHTJIAPRIL A GUEST SPECIALIST Ot V65.49 OTHER SPECIFIED COUNSELING 05/20/2017 DWIGHTJIAPRIL Jp GUEST SPECIALIST Ot V76.12 OTH SCREEN MAMMO-MALIGN NEOPLASM OF ETIENNE 05/20/2017 DWIGHTJIAPRIL Jp GUEST SPECIALIST Ot V76.51 SCREEN MAL NEOP-COLON 05/20/2017 DWIGHT, APRIL A GUEST SPECIALIST Ot V82.81 SCREENING FOR OSTEOPOROSIS 05/21/2017 HONEY GOLDBERG MD Ot M79.609 PAIN IN UNSPECIFIED LIMB 05/21/2017 HONEY GOLDBERG MD Ot R06.02 SHORTNESS OF BREATH 05/21/2017 HONEY GOLDBERG MD Ot W19.XXXA UNSPECIFIED FALL, INITIAL ENCOUNTER 05/21/2017 LI LOPEZ APRN Ot F10.20 ALCOHOL DEPENDENCE, UNCOMPLICATED 05/21/2017 LI LOPEZ APRN Ot F31.9 BIPOLAR DISORDER, UNSPECIFIED 05/21/2017 LI LOPEZ APRN Ot F41.9 ANXIETY DISORDER, UNSPECIFIED 05/21/2017 LI LOPEZ APRN Ot G47.30 SLEEP APNEA, UNSPECIFIED 05/21/2017 LI LOPEZ APRN Ot J44.9 CHRONIC OBSTRUCTIVE PULMONARY DISEASE, U 05/21/2017 LI LOPEZ APRN Ot R06.02 SHORTNESS OF BREATH 05/21/2017 LI LOPEZ APRN Ot Z79.82 CLUTCH ASSEMBLER (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 OF ASPIRIN 05/21/2017 LI LOPEZ APRN Ot Z80.8 FAMILY HISTORY OF MALIGNANT NEOPLASM OF 05/21/2017 LI LOPEZ APRN Ot Z87.448 PERSONAL HISTORY OF OTHER DISEASES OF UR 05/21/2017 LOPEZ, PETER J GUEST SPECIALIST Ot Z91.5 PERSONAL HISTORY OF SELF-HARM 05/24/2017 LI LOPEZ APRN Ot F10.20 ALCOHOL DEPENDENCE, UNCOMPLICATED 05/24/2017 LI LOPEZ APRN Ot F31.9 BIPOLAR DISORDER, UNSPECIFIED 05/24/2017 LI LOPEZ APRN Ot F41.9 ANXIETY DISORDER, UNSPECIFIED 05/24/2017 LI LOPEZ APRN Ot G47.30 SLEEP APNEA, UNSPECIFIED 05/24/2017 LI LOPEZ APRN Ot J44.9 CHRONIC OBSTRUCTIVE PULMONARY DISEASE, U 05/24/2017 LI LOPEZ APRN Ot R06.02 SHORTNESS OF BREATH 05/24/2017 LI LOPEZ APRN Ot Z79.82 CLUTCH ASSEMBLER (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 OF ASPIRIN 05/24/2017 LI LOPEZ APRN Ot Z80.8 FAMILY HISTORY OF MALIGNANT NEOPLASM OF 05/24/2017 LI LOPEZ APRN Ot Z87.448 PERSONAL HISTORY OF OTHER DISEASES OF UR 05/24/2017 LI LOPEZ APRN Ot Z91.5 PERSONAL HISTORY OF SELF-HARM 05/29/2017 SHAHANA ROSENTHALP Ot F10.129 ALCOHOL ABUSE WITH INTOXICATION, UNSPECI 05/29/2017 ARIADNA SHAHANA CRANE CHASER Ot F12.90 CANNABIS USE, UNSPECIFIED, UNCOMPLICATED 05/29/2017 SHAHANA ROSENTHAL CRANE CHASER Ot F31.9 BIPOLAR DISORDER, UNSPECIFIED 05/29/2017 ARIADNA SHAHANA CRANE CHASER Ot F41.9 ANXIETY DISORDER, UNSPECIFIED 05/29/2017 SHAHANA ROSENTHAL CRANE CHASER Ot G47.30 SLEEP APNEA, UNSPECIFIED 05/29/2017 SHAHANA ROSENTHAL CRANE CHASER Ot G47.9 SLEEP DISORDER, UNSPECIFIED 05/29/2017 ARIADNA SHAHANA CRANE CHASER Ot J44.9 CHRONIC OBSTRUCTIVE PULMONARY DISEASE, U 05/29/2017 SHAHANA ROSENTHAL CRANE CHASER Ot R06.02 SHORTNESS OF BREATH 05/29/2017 SHAHANA ROSENTHAL CRANE CHASER Ot Z77.22 CNTCT W AND EXPSR TO ENVIRON TOBACCO SMO 05/29/2017 SHAHANA ROSENTHAL CRANE CHASER Ot Z79.82 CLUTCH ASSEMBLER (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 OF ASPIRIN 05/29/2017 SHAHANA ROSENTHAL CRANE CHASER Ot Z87.81 PERSONAL HISTORY OF (HEALED) TRAUMATIC F 05/29/2017 SHAHANA ROSENTHALP Ot Z91.5 PERSONAL HISTORY OF SELF-HARM Procedures Code Description Performed By Performed On Psychiatr [facility] 10/09/2011 69849 UA W/ CULTURE IF INDICATED 02/19/2012 73400 ROUTINE VENIPUNCTURE 02/22/2012 38292 CBC 02/22/2012 28782 LIPID PANEL 02/22/2012 87275 CMP 02/22/2012 [id number] GFR CALC (RESULT ONLY) 02/22/2012 49853 TSH 02/23/2012 67184 MAMMOGRAM, SCREENING 02/23/2012 38784 HEMOCCULT 02/23/2012 10230 PAP SMEAR 02/23/2012 Q0091 PAP SMEAR OBTAIN SMEAR 02/23/2012 43898 URINE DRUG SCREEN (IN-HOUSE ) 01/18/2013 15053 MAMMOGRAM, SCREENING 01/19/2013 URINEDRUG URINE DRUG SCREEN (CON'F ) 01/19/2013 13034 BONE DENSITY, DEXA 04/17/2013 GENERAL S Kido, Ken 04/17/2013 00802 BONE MINERAL DENSITY, HEEL US (IN HOUSE) 04/17/2013 10408 XRAY CERVICAL SPINE, 2 OR 3 VIEWS 06/02/2013 94970 ROUTINE VENIPUNCTURE 02/16/2014 80236 MAMMOGRAM, SCREENING 02/16/2014 [id number] GFR CALC (RESULT ONLY) 02/16/2014 29516 CMP 02/16/2014 Results Test Result Range Complete [...] NR Blood erythrocyte morphology finding identification [facility] Comprehensive metabolic panel - 07/11/16 [...] urinalysis with reflex to culture NO NRG Complete blood count (CBC) with automated white blood cell (WBC) differential - 05/21/17 21:15 Blood leukocytes automated count (number/volume) 12.5 10*3/uL 4.3-11.0 Blood erythrocytes automated count (number/volume) 4.32 10*6/uL 4.35-5.85 Venous blood hemoglobin measurement (mass/volume) 15.0 g/dL 11.5-16.0 Blood hematocrit (volume fraction) 43 % 35-52 Automated erythrocyte mean corpuscular volume 100 [foz_us] 80-99 Automated erythrocyte mean corpuscular hemoglobin (mass per erythrocyte) 35 pg 25-34 Automated erythrocyte mean corpuscular hemoglobin concentration measurement ( mass/volume) 35 g/dL 32-36 Automated erythrocyte distribution width ratio 12.5 % 10.0-14.5 Automated blood platelet count (count/volume) 302 10*3/uL 130-400 Automated blood platelet mean volume measurement 9.9 [foz_us] 7.4-10.4 Automated blood neutrophils/100 leukocytes 53 % 42-75 Automated blood lymphocytes/100 leukocytes 36 % 12-44 Blood monocytes/100 leukocytes 10 % 0-12 Automated blood eosinophils/100 leukocytes 1 % 0-10 Automated blood basophils/100 leukocytes 1 % 0-10 Blood neutrophils automated count (number/volume) 6.6 10*3 1.8-7.8 Blood lymphocytes automated count (number/volume) 4.5 10*3 1.0-4.0 Blood monocytes automated count (number/volume) 1.3 10*3 0.0-1.0 Automated eosinophil count 0.1 10*3/uL 0.0-0.3 Automated blood basophil count (count/volume) 0.1 10*3/uL 0.0-0.1 Comprehensive metabolic panel - 05/21/17 21:15 Serum or plasma sodium measurement (moles/volume) 136 mmol/L 135-145 Serum or plasma potassium measurement (moles/volume) 3.7 mmol/L 3.6-5.0 Serum or plasma chloride measurement (moles/volume) 99 mmol/L 98-107 Carbon dioxide 22 mmol/L 21-32 Serum or plasma anion gap determination (moles/volume) 15 mmol/L 5-14 Serum or plasma urea nitrogen measurement (mass/volume) 16 mg/dL 7-18 Serum or plasma creatinine measurement (mass/volume) 0.72 mg/dL 0.60-1.30 Serum or plasma urea nitrogen/creatinine mass ratio 22 NRG Serum or plasma creatinine measurement with calculation of estimated glomerular filtration rate > NRG Serum or plasma glucose measurement (mass/volume) 80 mg/dL 70-105 Serum or plasma calcium measurement (mass/volume) 9.3 mg/dL 8.5-10.1 Serum or plasma total bilirubin measurement (mass/volume) 0.4 mg/dL 0.1-1.0 Serum or plasma alkaline phosphatase measurement (enzymatic activity/volume) 68 U/L 40-136 Serum or plasma aspartate aminotransferase measurement (enzymatic activity/ volume) 45 U/L 5-34 Serum or plasma alanine aminotransferase measurement (enzymatic activity/volume ) 40 U/L 0-55 Serum or plasma protein measurement (mass/volume) 7.5 g/dL 6.4-8.2 Serum or plasma albumin measurement (mass/volume) 4.7 g/dL 3.2-4.5 Serum or plasma ethanol measurement (mass/volume) - 05/21/17 21:15 Serum or plasma ethanol measurement (mass/volume) 251 mg/dL <10 Complete urinalysis with reflex to culture - 05/29/17 17:02 Urine color determination YELLOW NRG Urine clarity [...] detection in urine sediment by light microscopy RARE NRG Crystals detection in urine sediment by light microscopy NONE NRG Casts detection in urine sediment by light microscopy NONE NRG Mucus detection in urine sediment by light microscopy NEGATIVE NRG Complete urinalysis with reflex to culture NO NRG Urine drug screening test - 05/29/17 17:02 Urine phencyclidine detection by screening method NEGATIVE [...] NEGATIVE NEGATIVE Urine propoxyphene detection NEGATIVE NEGATIVE Encounters ACCT No. Visit Date/Time Discharge Status Pt. Type Provider Facility Loc./Unit Complaint [id number] 02/16/2014 11:31:00 02/16/2014 23:59:59 CLS Outpatient HUMA LOZOYA MD [id number] 12/02/2013 06:43:00 12/02/2013 23:59:59 CLS Outpatient HUMA LOZOYA MD [id number] 11/27/2013 11:19:00 11/27/2013 23:59:59 CLS Outpatient HUMA LOZOYA MD [id number] 10/30/2013 12:59:00 10/30/2013 23:59:59 CLS Outpatient ADDIS SPRINGER APRN [id number] 09/18/2013 13:40:00 09/18/2013 23:59:59 CLS Outpatient HUMA LOZOYA MD [id number] 07/25/2013 16:53:00 07/25/2013 23:59:59 CLS Outpatient HUMA LOZOYA MD [id number] 06/02/2013 11:36:00 06/02/2013 23:59:59 CLS Outpatient BERRY BALDERRAMA DO [id number] 06/02/2013 11:36:00 06/02/2013 23:59:59 CLS Outpatient BERRY BALDERRAMA DO [id number] 04/17/2013 10:34:00 04/17/2013 23:59:59 CLS Outpatient DWIGHTFlores FAIRCHILD APRIL A [id number] 04/17/2013 10:34:00 04/17/2013 23:59:59 CLS Outpatient DWIGHTAPRIL ABDALLA APRN [id number] 03/02/2013 13:45:00 03/02/2013 23:59:59 CLS Outpatient HUMA LOZOYA MD [id number] 03/02/2013 13:45:00 03/02/2013 23:59:59 CLS Outpatient HUMA LOZOYA MD [id number] 01/18/2013 14:08:00 01/18/2013 23:59:59 CLS Outpatient HUMA LOZOYA MD [id number] 12/19/2012 11:31:00 12/19/2012 23:59:59 CLS Outpatient HUMA LOZOYA MD [id number] 09/29/2012 16:24:00 09/29/2012 23:59:59 CLS Outpatient HUMA LOZOYA MD [id number] 03/28/2012 11:42:00 03/28/2012 23:59:59 CLS Outpatient HUMA LOZOYA MD [id number] 02/22/2012 09:43:00 02/22/2012 23:59:59 CLS Outpatient BERRY BALDERRAMA DO [id number] 02/19/2012 13:27:00 02/19/2012 23:59:59 CLS Outpatient BERRY BALDERRAMA DO [id number] 10/02/2011 09:36:00 10/02/2011 23:59:59 [place] [id number] 10/02/2011 09:36:00 10/02/2011 23:59:59 CLS Outpatient [id number] 06/24/2012 13:29:00 Document Registration [id number] 05/29/2017 16:55:00 05/29/2017 18:10:00 DIS Emergency SHAHANA ROSENTHAL [facility] ER SOA [id number] 05/21/2017 21:00:00 05/21/2017 22:16:00 DIS Emergency LI LOPEZ GUEST SPECIALIST [facility] ER SOB [id number] 05/19/2017 17:05:00 05/19/2017 17:31:00 DIS Outpatient ASHLYN PINEDO, HONEY Donaldson [facility] ER SOA [id number] 05/11/2017 21:12:00 05/11/2017 21:57:00 DIS Emergency MELISSA GARCIA [facility] ER SOA [id number] 04/06/2017 18:38:00 04/06/2017 20:05:00 DIS Emergency MELISSA GARCIA [facility] ER ANKLE PAIN [id number] 04/06/2017 12:39:00 04/06/2017 15:08:00 DIS Emergency MALIA JOLLY MD [facility] ER DRUG/ETOH ABUSE [id number] 07/11/2016 16:09:00 07/11/2016 19:12:00 DIS Emergency MELISSA GARCIA [facility] ER ALCOHOL INTOX [id number] 03/03/2016 15:38:00 03/03/2016 16:45:00 DIS Emergency LI LOPEZ APRN [facility] ER R ANKLE PAIN [id number] 05/02/2015 16:39:00 05/04/2015 13:14:00 DIS Inpatient CHINMAY PINEDO, FINESSE Trammell [facility] 4TH RLL PNUEMONIA [id number] 11/19/2013 22:15:00 11/20/2013 10:50:00 DIS Inpatient YANN PINEDO, DANICA Tanner [facility] ICU ETOH INTOXICATION, AMS [id number] 10/02/2013 15:43:00 10/03/2013 14:03:00 DIS Inpatient BERRY BALDERRAMA DO [facility] ICU SUICIDAL/HOMICIDAL IDEATION, ETOH INTOXICATION [id number] 04/27/2013 09:25:00 04/27/2013 23:59:59 CLS Outpatient APRIL QUINTANILLA APRN [facility] RAD OSTEOPENIA [id number] 03/06/2013 10:54:00 03/06/2013 23:59:59 CLS Outpatient HUMA LOZOYA MD [facility] RAD SCREENING [id number] 11/14/2012 15:16:00 11/14/2012 23:59:59 CLS Outpatient [id number] 09/19/2012 13:31:00 09/19/2012 23:59:59 CLS Outpatient [id number] 08/22/2012 15:17:00 08/22/2012 23:59:59 CLS Outpatient [id number] 08/04/2012 14:36:00 08/04/2012 23:59:59 CLS Outpatient [id number] 07/20/2012 12:07:00 07/20/2012 13:45:00 DIS Emergency CURTIS FRANCISCO LEDESMA [facility] ER FELL INJ L ARM [id number] 03/16/2014 10:56:00 Document Registration [id number] 03/04/2012 10:23:00 Document Registration [id number] 01/13/2013 16:48:57 ACT Document Registration [id number] 04/08/2017 14:00:00 04/08/2017 23:59:59 CLS Out[facility]
[2017-06-08 21:10] VITALS: BP 0/0
--- NOTE | 2017-06-08 21:10 | ED Psychosocial ---
General Chief Complaint: Substance Abuse Stated Complaint: SOA Nursing Triage Note: PT TO ED 7 W/ C/O ALCOHOL INTOXICATION. PER EMS, CALLED TO PTS ADDRESS FOR C/O SOB TO FIND PT IN NO DISTRESS HOWEVER, WAS INTOXICATED. PT DENIES ANY C/O SOB AT THIS TIME. NO DISTRESS OR DISCOMFORT VOICED OR NOTED. PT REPORTS THAT SHE HAS TO GIVE HER CIGS TO HER NEIGHBORS AND THEY'RE ALSO TAKING HER FOOD SO SHE'S HUNGRY AT THIS TIME. PT ALSO REPORTS SHE'S BEEN DRINKING "ALL DAY, LIKE NORMAL". NO OTHER C/O VOICED. PT DOES STATE SHE NEEDS TO GET HOME TO HER [place] CAT OR "HE'LL KILL HER". Source: patient, EMS Exam Limitations: no limitations History of Present Illness Date Seen by Provider: June 08, 2017 Time Seen by Provider: 21:30 Initial Comments 62-year-old female patient presents to the emergency Department with reports of shortness of air while on scene. At this time patient denies any chest pain, shortness of air, palpitations, or cough. Patient states she called EMS so they would bring her to the emergency department and she could get something to eat. Patient states her neighbors have been taking her food and cigarettes. When asked if she has reported the neighbors she states "I can't sissy! I'm sorry sis!" and cries without tears. Patient is intoxicated and states she bought a "tall boy" from her neighbor. Patient denies suicidal or homicidal ideation. Timing/Duration: just prior to arrival Allergies and Home Medications Allergies Coded Allergies: No Known Drug Allergies (Unverified , 07/20/12) Home Medications Aspirin 81 Mg Tablet.dr, 81 MG PO DAILY, (Reported) Buspirone HCl 10 Mg Tablet, 10 MG PO BID, (Reported) Cefpodoxime Proxetil 200 Mg Tablet, 200 MG PO BID Prescribed by: FINESSE DESAI on 05/04/15 1211 Diclofenac Sodium 75 Mg Tablet.dr, 75 MG PO BID, (Reported) Furosemide 40 Mg Tablet, 40 MG PO DAILY, (Reported) Gabapentin 300 Mg Capsule, 300 MG PO TID, (Reported) Hydrocodone/Acetaminophen 1 Each Tablet, 1 EACH PO Q4H PRN for PAIN Prescribed by: LI LOPEZ on 03/03/16 1620 Levomilnacipran Hydrochloride 80 Mg Cap.sa.24h, 80 MG PO DAILY, (Reported) Loratadine 10 Mg Tablet, 10 MG PO DAILY, (Reported) Lorazepam 0.5 Mg Tablet, 0.5 MG PO DAILY PRN for ANXIETY, (Reported) Multivitamin 1 Each Tablet, 1 TAB PO DAILY, (Reported) Potassium Chloride 20 Meq Tab.er.prt, 20 MEQ PO DAILY, (Reported) Quetiapine Fumarate 100 Mg Tablet, 100 MG PO HS, (Reported) Tizanidine HCl 4 Mg Tablet, 4 MG PO TID PRN for MUSCLE SPASMS, (Reported) Patient Home Medication List Home Medication List Reviewed: Yes Constitutional: no symptoms reported Respiratory: see HPI; No cough, No dyspnea on exertion, No hemoptysis, No phlegm, No short of breath (initially reported shortness of breath, denies any symptoms at this time.) Cardiovascular: no symptoms reported Gastrointestinal: no symptoms reported Musculoskeletal: no symptoms reported Skin: no symptoms reported Psychiatric/Neurological: See HPI All Other Systems Reviewed Negative Unless Noted: Yes (Negative excepted noted.) Past Kwscdit-Lymals-Ofyqcz Hx Patient Social History Alcohol Use: Regular Use Number of Drinks Today: BB Alcohol Beverage of Choice: Beer, Whiskey, [facility] Drug Use: No Drug of Choice: CANNIBUS Smoking Status: Current Everyday Smoker Type Used: Cigarettes 2nd Hand Smoke Exposure: Yes Recent Foreign Travel: No Contact w/Someone Who Travel: No Recent Infectious Disease Expo: No Recent Hopitalizations: No Physical Abuse: No Sexual Abuse: No Mistreated: No Fear: No Immunizations Up To Date Tetanus Booster (TDap): Unknown PED Vaccines UTD: No Seasonal Allergies Seasonal Allergies: No Past Medical History Surgeries: Yes (CYST ON OVARY) Respiratory: Yes Sleep Apnea, COPD Currently Using CPAP: No Currently Using BIPAP: No Cardiac: No Neurological: Yes Reproductive Disorders: No Female Reproductive Disorders: Denies Sexually Transmitted Disease: No HIV/AIDS: No Genitourinary: No Gastrointestinal: No Musculoskeletal: Yes (ANKLE FRACTURE) Arthritis, Chronic Back Pain Endocrine: No HEENT: No Cancer: No Psychosocial: Yes (alcoholism) Sleep Difficulties, Anxiety, Suicide Attempts, Bipolar, Depression Nursing Suicide Risk Score: 0 Integumentary: No Blood Disorders: No Family Medical History Reviewed Nursing Family Hx Alcoholism 19 FATHER G8 BROTHER G8 BROTHER G8 BROTHER G8 SISTER G8 SISTER FH: brain cancer G8 SISTER Neoplasm 19 MOTHER No Pertinent Family Hx Physical Exam Vital Signs Capillary Refill : Less Than 3 Seconds General Appearance: no apparent distress, cachetic, other (chronically ill appearing female) Respiratory: chest non-tender, lungs clear, normal breath sounds, no respiratory distress, no accessory muscle use Cardiovascular: normal peripheral pulses, regular rate, rhythm, no edema, no murmur Gastrointestinal: normal bowel sounds, non tender, soft, no organomegaly Extremities: no pedal edema, normal capillary refill Neurologic/Psychiatric: alert, oriented x 3, other (intoxicated, flight of ideas, anxious.) Appearance/Memory: no memory impairment, denies illness, disheveled, impaired insight Behavior/Eye Contact: cooperative, avoids eye contact, increased rate of speech Thoughts/Hallucinations: no apparent hallucination, flight of ideas Skin: normal color, warm/dry Progress/Results/Core Measures Vital Signs/I&O Blood Pressure Mean: 92 Departure Communication (Admissions) 2714 patient presents to the nursing desk immediately after eating and states she would like to be discharged to home. Patient refuses any lab testing and diagnostic studies. Patient states she only came to the emergency department because she was hungry. I discussed risks, benefits, possible complications associated with leaving without any laboratory or diagnostic study testing. Patient verbalizes understanding and wishes to be discharged to home. Patient to follow-up with her primary care provider at [facility] for recheck. Dr. Bailey notified of patient refusing labs and diagnostic studies. Impression Primary Impression: Alcohol intoxication Qualified Codes: F10.920 - Alcohol use, unspecified with intoxication, uncomplicated Disposition: 01 HOME, SELF-CARE Condition: Improved Departure-Patient Inst. Decision time for Depature: 21:08 Referrals: HUMA LOZOYA MD (PCP/Family) Primary Care Physician Patient Instructions: ALCOHOL AND SUBSTANCE ABUSE Add. Discharge Instructions: All discharge instructions reviewed with patient and/or family. Voiced understanding. Continue usual medications. Follow-up with Dr. Lozoya in the next 1-2 days for recheck. Call tomorrow morning for an appointment time. Return to the emergency department for worsened symptoms or any other concerns. MELISSA TOMAS June 08, 2017 21:10
== END 2017-06-08 21:10 | disposition home or self-care (01) ==
LOC: EDUNIT# 20:28 → ER 20:29
DX: F10.229 Alcohol dependence with intoxication, unspecified (principal); G47.30 Sleep apnea, unspecified; J44.9 Chronic obstructive pulmonary disease, unspecified; F41.9 Anxiety disorder, unspecified; F31.9 Bipolar disorder, unspecified; F12.10 Cannabis abuse, uncomplicated; F17.210 Nicotine dependence, cigarettes, uncomplicated; Z91.5 Personal history of self-harm; Z80.8 Family history of malignant neoplasm of other organs or systems; Z79.82 Long term (current) use of aspirin
CPT/HCPCS: 99283

== ENCOUNTER 2017-08-19 18:04 | Emergency (ER) | payer MEDICAID ==
[~2017-08-19] VITALS: Ht 152.4 cm; Wt 45.4 kg
[~2017-08-19 18:04] MED LIST changes: -CODE118S2 PO; +CODE118S4 PO
--- NOTE | 2017-08-19 18:18 | ED Psychosocial ---
General Chief Complaint: Substance Abuse Stated Complaint: SOB/ETOH DETOX Source: patient Exam Limitations: no limitations History of Present Illness Date Seen by Provider: Aug 19, 2017 Time Seen by Provider: 18:14 Initial Comments to ER per EMS from home with reports of shortness of breath. Upon EMS arrival she denied being short of breath but stated that she was an alcoholic and she wanted some help. She wanted take him to the hospital for this. Severity: moderate Allergies and Home Medications Allergies Coded Allergies: No Known Drug Allergies (Unverified , 07/20/12) Home Medications Aspirin 81 Mg Tablet.dr, 81 MG PO DAILY, (Reported) Buspirone HCl 10 Mg Tablet, 10 MG PO BID, (Reported) Cefpodoxime Proxetil 200 Mg Tablet, 200 MG PO BID Prescribed by: FINESSE DESAI on 05/04/15 1211 Diclofenac Sodium 75 Mg Tablet.dr, 75 MG PO BID, (Reported) Furosemide 40 Mg Tablet, 40 MG PO DAILY, (Reported) Gabapentin 300 Mg Capsule, 300 MG PO TID, (Reported) Hydrocodone/Acetaminophen 1 Each Tablet, 1 EACH PO Q4H PRN for PAIN Prescribed by: LI LOPEZ on 03/03/16 1620 Levomilnacipran Hydrochloride 80 Mg Cap.sa.24h, 80 MG PO DAILY, (Reported) Loratadine 10 Mg Tablet, 10 MG PO DAILY, (Reported) Lorazepam 0.5 Mg Tablet, 0.5 MG PO DAILY PRN for ANXIETY, (Reported) Multivitamin 1 Each Tablet, 1 TAB PO DAILY, (Reported) Potassium Chloride 20 Meq Tab.er.prt, 20 MEQ PO DAILY, (Reported) Quetiapine Fumarate 100 Mg Tablet, 100 MG PO HS, (Reported) Tizanidine HCl 4 Mg Tablet, 4 MG PO TID PRN for MUSCLE SPASMS, (Reported) Patient Home Medication List Home Medication List Reviewed: Yes Constitutional: see HPI EENTM: see HPI Respiratory: no symptoms reported Genitourinary: no symptoms reported Musculoskeletal: no symptoms reported Skin: no symptoms reported Psychiatric/Neurological: See HPI Past Skwwzda-Ejfdhm-Zbbauo Hx Patient Social History Alcohol Beverage of Choice: Beer, Whiskey, [place] Drug of Choice: CANNIBUS Type Used: Cigarettes 2nd Hand Smoke Exposure: Yes Recent Hopitalizations: No Immunizations Up To Date Tetanus Booster (TDap): Unknown PED Vaccines UTD: No Seasonal Allergies Seasonal Allergies: No Past Medical History Surgeries: Yes (CYST ON OVARY) Respiratory: Yes Sleep Apnea, COPD Currently Using CPAP: No Currently Using BIPAP: No Cardiac: No Neurological: Yes Reproductive Disorders: No Female Reproductive Disorders: Denies Sexually Transmitted Disease: No HIV/AIDS: No Genitourinary: No Gastrointestinal: No Musculoskeletal: Yes (ANKLE FRACTURE) Arthritis, Chronic Back Pain Endocrine: No HEENT: No Cancer: No Psychosocial: Yes (alcoholism) Sleep Difficulties, Anxiety, Suicide Attempts, Bipolar, Depression Integumentary: No Blood Disorders: No Family Medical History Alcoholism 19 FATHER G8 BROTHER G8 BROTHER G8 BROTHER G8 SISTER G8 SISTER FH: brain cancer G8 SISTER Neoplasm 19 MOTHER No Pertinent Family Hx Physical Exam Vital Signs - First Documented 08/19/17 18:24 Temp 97.7 Pulse 81 Resp 18 B/P (MAP) 105/71 (82) Pulse Ox 98 Capillary Refill : Height, Weight, BMI Height: 5'6.00" Weight: 110lbs. 8.0oz. [id number]; 18.11 BMI Method:Estimated General Appearance: WD/WN, no apparent distress, other (she is alert and oriented. She knows she is at the hospital and she knows) HEENT: PERRL/EOMI, normal ENT inspection, TMs normal Neck: non-tender, full range of motion Respiratory: no respiratory distress, no accessory muscle use Cardiovascular: regular rate, rhythm, no murmur Gastrointestinal: normal bowel sounds, non tender, soft Neurologic/Psychiatric: alert, normal mood/affect Appearance/Memory: appropriate appearance, appropriate insight Behavior/Eye Contact: cooperative Thoughts/Hallucinations: normal thought pattern, no apparent hallucination Skin: normal color, warm/dry Progress/Results/Core Measures Results/Orders Lab Results Laboratory Tests Test 08/19/17 18:29 08/19/17 18:44 Range/Units White Blood Count 11.3 H 4.3-11.0 10^3/uL Red Blood Count 3.89 L 4.35-5.85 10^6/uL Hemoglobin 13.8 11.5-16.0 G/DL Hematocrit 39 35-52 % Mean Corpuscular Volume 99 80-99 FL Mean Corpuscular Hemoglobin 36 H 25-34 PG Mean Corpuscular Hemoglobin Concent 36 32-36 G/DL Red Cell Distribution Width 12.9 10.0-14.5 % Platelet Count 282 130-400 10^3/uL Mean Platelet Volume 9.7 7.4-10.4 FL Neutrophils (%) (Auto) 48 42-75 % Lymphocytes (%) (Auto) 37 12-44 % Monocytes (%) (Auto) 12 0-12 % Eosinophils (%) (Auto) 2 0-10 % Basophils (%) (Auto) 1 0-10 % Neutrophils # (Auto) 5.4 1.8-7.8 X 10^3 Lymphocytes # (Auto) 4.2 H 1.0-4.0 X 10^3 Monocytes # (Auto) 1.4 H 0.0-1.0 X 10^3 Eosinophils # (Auto) 0.2 0.0-0.3 10^3/uL Basophils # (Auto) 0.1 0.0-0.1 10^3/uL My Orders Orders - LI LOPEZ APRN Cbc With Automated Diff (08/19/17 18:25) Basic Metabolic Panel (08/19/17 18:25) Alcohol (08/19/17 18:25) Ua Culture If Indicated (08/19/17 18:45) Drug Screen Stat (Urine) (08/19/17 18:45) Vital Signs/I&O 08/19/17 18:24 Temp 97.7 Pulse 81 Resp 18 B/P (MAP) 105/71 (82) Pulse Ox 98 Departure Communication (Admissions) 4610*--patient would now like to leave and will send her by taxi to the [facility] because she states she is very hungry. Impression Primary Impression: Alcohol intoxication Disposition: 01 HOME, SELF-CARE Condition: Stable Departure-Patient Inst. Decision time for Depature: 18:25 Referrals: HUMA LOZOYA MD (PCP/Family) Primary Care Physician Patient Instructions: ALCOHOL AND SUBSTANCE ABUSE, Alcohol Abuse and Alcoholism (DC) Add. Discharge Instructions: All discharge instructions reviewed with patient and/or family. Voiced understanding. LI LOPEZ APRN Aug 19, 2017 18:18
[2017-08-19 18:24] VITALS: BP 105/71
[2017-08-19 18:38] LABS: BASOPHILS # (AUTO) 0.1 10^3/uL (0.0-0.1); BASOPHILS % (AUTO) 1 % (0-10); EOSINOPHILS # (AUTO) 0.2 10^3/uL (0.0-0.3); EOSINOPHILS % (AUTO) 2 % (0-10); HEMATOCRIT 39 % (35-52); HEMOGLOBIN 13.8 G/DL (11.5-16.0); LYMPHOCYTES # (AUTO) 4.2 X 10^3 (1.0-4.0); LYMPHOCYTES % (AUTO) 37 % (12-44); MEAN CORPUSCULAR HEMOGLOBIN 36 PG (25-34); MEAN CORPUSCULAR HGB CONC 36 G/DL (32-36); MEAN CORPUSCULAR VOLUME 99 FL (80-99); MEAN PLATELET VOLUME 9.7 FL (7.4-10.4); MONOCYTES # (AUTO) 1.4 X 10^3 (0.0-1.0); MONOCYTES % (AUTO) 12 % (0-12); NEUTROPHILS # (AUTO) 5.4 X 10^3 (1.8-7.8); NEUTROPHILS % (AUTO) 48 % (42-75); PLATELET COUNT 282 10^3/uL (130-400); RED BLOOD COUNT 3.89 10^6/uL (4.35-5.85); RED CELL DISTRIBUTION WIDTH 12.9 % (10.0-14.5); WHITE BLOOD COUNT 11.3 10^3/uL (4.3-11.0)
[2017-08-19 18:53] LABS: BUN/CREATININE RATIO 20; CALCIUM 9.2 MG/DL (8.5-10.1); CARBON DIOXIDE 23 MMOL/L (21-32); CHLORIDE 103 MMOL/L (98-107); GFR ESTIMATED > 60; GLUCOSE 80 MG/DL (70-105); POTASSIUM 3.7 MMOL/L (3.6-5.0); SODIUM 137 MMOL/L (135-145)
[2017-08-19 18:53] LABS: BILIRUBIN,URINE NEGATIVE (NEGATIVE); CLARITY,URINE CLEAR; COLOR,URINE YELLOW; GLUCOSE, URINE (UA) NEGATIVE (NEGATIVE); KETONES,URINE NEGATIVE (NEGATIVE); LEUKOCYTE ESTERASE ,URINE NEGATIVE (NEGATIVE); NITRITE,URINE NEGATIVE (NEGATIVE); PH,URINE 6 (5-9); PROTEIN,URINE NEGATIVE (NEGATIVE); UROBILINOGEN,URINE NORMAL (NORMAL)
[2017-08-19 18:59] LABS: SQUAMOUS EPITHELIAL CELL,UR RARE /HPF
[2017-08-19 19:04] LABS: AMPHETAMINE SCREEN, URINE NEGATIVE (NEGATIVE); BARBITURATE SCREEN URINE NEGATIVE (NEGATIVE); BENZODIAZEPINES SCREEN URINE NEGATIVE (NEGATIVE); CANNABINOID SCREEN, URINE POSITIVE (NEGATIVE); COCAINE SCREEN URINE NEGATIVE (NEGATIVE); METHADONE STAT NEGATIVE (NEGATIVE); METHAMPHETAMINE SCREEN URINE S NEGATIVE (NEGATIVE); OPIATE SCREEN URINE NEGATIVE (NEGATIVE); OXYCODONE STAT NEGATIVE (NEGATIVE); PROPOXYPHENE STAT NEGATIVE (NEGATIVE); TRICYCLIC ANTIDEPRESSANTS SCRE NEGATIVE (NEGATIVE)
== END 2017-08-19 18:55 | disposition left against medical advice (07) ==
LOC: EDUNIT# 18:04 → ER 18:05
DX: F10.229 Alcohol dependence with intoxication, unspecified (principal); G47.30 Sleep apnea, unspecified; J44.9 Chronic obstructive pulmonary disease, unspecified; F41.9 Anxiety disorder, unspecified; F31.9 Bipolar disorder, unspecified; F12.10 Cannabis abuse, uncomplicated; Z91.5 Personal history of self-harm; Z80.8 Family history of malignant neoplasm of other organs or systems; Z79.82 Long term (current) use of aspirin; Z77.22 Contact with and (suspected) exposure to environmental tobacco smoke (acute) (chronic)
CPT/HCPCS: 36415; 80048; 80306; 80320; 81000; 85025; 99284

== ENCOUNTER 2017-09-13 11:11 | Emergency (ER) | payer MEDICAID ==
[~2017-09-13] VITALS: Ht 154.9 cm; Wt 52.2 kg
--- NOTE | 2017-09-13 11:33 | ED General ---
General Stated Complaint: WANTS MED REFILL Source of Information: Patient Exam Limitations: No Limitations History of Present Illness Date Seen by Provider: Sep 13, 2017 Time Seen by Provider: 11:31 Initial Comments To ER per EMS from home and normal with reports of needing her medications refilled. She is quite obviously intoxicated and is well-known to us in the emergency room for alcohol abuse. Upon arrival to the ER she complains of " upper respiratory". She states she does not have any cough shortness of breath or chest pain fevers chills or sore throat. She then states "I'm an alcoholic and I need help". When asked what I can do to help her she states "I just want to go home". She denies any suicidal or homicidal intent. Timing/Duration: 1-2 Days Severity: Moderate Associated Systoms: Nausea/Vomiting Allergies and Home Medications Allergies Coded Allergies: No Known Drug Allergies (Unverified , 07/20/12) Home Medications Aspirin 81 Mg Tablet.dr, 81 MG PO DAILY, (Reported) Buspirone HCl 10 Mg Tablet, 10 MG PO BID, (Reported) Cefpodoxime Proxetil 200 Mg Tablet, 200 MG PO BID Prescribed by: FINESSE DESAI on 05/04/15 1211 Diclofenac Sodium 75 Mg Tablet.dr, 75 MG PO BID, (Reported) Furosemide 40 Mg Tablet, 40 MG PO DAILY, (Reported) Gabapentin 300 Mg Capsule, 300 MG PO TID, (Reported) Hydrocodone/Acetaminophen 1 Each Tablet, 1 EACH PO Q4H PRN for PAIN Prescribed by: LI LOPEZ on 03/03/16 1620 Levomilnacipran Hydrochloride 80 Mg Cap.sa.24h, 80 MG PO DAILY, (Reported) Loratadine 10 Mg Tablet, 10 MG PO DAILY, (Reported) Lorazepam 0.5 Mg Tablet, 0.5 MG PO DAILY PRN for ANXIETY, (Reported) Multivitamin 1 Each Tablet, 1 TAB PO DAILY, (Reported) Potassium Chloride 20 Meq Tab.er.prt, 20 MEQ PO DAILY, (Reported) Quetiapine Fumarate 100 Mg Tablet, 100 MG PO HS, (Reported) Tizanidine HCl 4 Mg Tablet, 4 MG PO TID PRN for MUSCLE SPASMS, (Reported) Patient Home Medication List Home Medication List Reviewed: Yes Review of Systems Constitutional: see HPI EENTM: see HPI Respiratory: no symptoms reported Cardiovascular: no symptoms reported Genitourinary: no symptoms reported Musculoskeletal: no symptoms reported Skin: no symptoms reported Psychiatric/Neurological: No Symptoms Reported Hematologic/Lymphatic: No Symptoms Reported Past Kpiwfxl-Spohfk-Ymorll Hx Patient Social History Alcohol Beverage of Choice: Beer, Whiskey, [place] Drug of Choice: CANNIBUS Type Used: Cigarettes 2nd Hand Smoke Exposure: Yes Recent Hopitalizations: No Immunizations Up To Date Tetanus Booster (TDap): Unknown PED Vaccines UTD: No Seasonal Allergies Seasonal Allergies: No Past Medical History Surgeries: Yes (CYST ON OVARY) Respiratory: Yes Sleep Apnea, COPD Currently Using CPAP: No Currently Using BIPAP: No Cardiac: No Neurological: Yes Reproductive Disorders: No Female Reproductive Disorders: Denies Sexually Transmitted Disease: No HIV/AIDS: No Genitourinary: No Gastrointestinal: No Musculoskeletal: Yes (ANKLE FRACTURE) Arthritis, Chronic Back Pain Endocrine: No HEENT: No Cancer: No Psychosocial: Yes (alcoholism) Sleep Difficulties, Anxiety, Suicide Attempts, Bipolar, Depression Integumentary: No Blood Disorders: No Family Medical History Alcoholism 19 FATHER G8 BROTHER G8 BROTHER G8 BROTHER G8 SISTER G8 SISTER FH: brain cancer G8 SISTER Neoplasm 19 MOTHER No Pertinent Family Hx Physical Exam Vital Signs Capillary Refill : Height, Weight, BMI Height: 5'6.00" Weight: 100lbs. 8.0oz. 45.855461vr; 18.11 BMI Method:Estimated General Appearance: No Apparent Distress, WD/WN, Thin, Other (alert, very talkative, obviously intoxicated from alcohol with slurred speech.) Eyes: Bilateral Eye Normal Inspection, Bilateral Eye PERRL, Bilateral Eye EOMI HEENT: PERRL/EOMI, TMs Normal Neck: Full Range of Motion, Normal Inspection Respiratory: No Accessory Muscle Use, No Respiratory Distress Cardiovascular: Regular Rate, Rhythm, Normal Peripheral Pulses Gastrointestinal: Non Tender, Soft Extremity: Normal Capillary Refill, Normal Inspection Neurologic/Psychiatric: Alert, Oriented x3 Skin: Normal Color, Warm/Dry Comments Lungs are clear, no respiratory distress, heart rate is regular. Vitals are stable. Progress/Results/Core Measures Suspected Sepsis SIRS Temperature: Pulse: Respiratory Rate: Blood Pressure / Mean: Results/Orders Vital Signs/I&O Capillary Refill : Departure Impression Primary Impression: Alcoholism Disposition: 01 HOME, SELF-CARE Condition: Stable Departure-Patient Inst. Decision time for Depature: 11:33 Referrals: HUMA LOZOYA MD (PCP/Family) Primary Care Physician Patient Instructions: ALCOHOL AND SUBSTANCE ABUSE, Alcohol Abuse and Alcoholism (DC) Add. Discharge Instructions: 1. Return to ER for any concerns 2. Follow-up with your doctor this week. LI LOPEZ APRN Sep 13, 2017 11:33
[2017-09-13 11:45] VITALS: BP 120/84
--- OUTSIDE RECORDS SUMMARY | 2017-09-13 21:58 | XMS REPORT ---
Author Author HUMA LOZOYA [facility] Address [address] [place] [address] Care Team Providers Care Radiotelegrapher Name Role Phone HUMA LOZOYA Unavailable PROBLEMS Type Condition ICD9-CM Code EUS09-TO Code Onset Dates Condition Status SNOMED Code Problem Other and unspecified hyperlipidemia 272.4 Active 15884274 Problem Alcoholism F10.20 Active 7058045 Problem Asthma J45.909 Active 251867869 Problem Other chronic pain G89.29 Active 98205906 Problem Arthritis M19.90 Active 1047282 Problem Closed fracture of shaft of right fibula, unspecified fracture morphology, initial encounter S82.401A Active 10326535 Problem Bipolar disorder F31.9 Active 37022133 Problem Arthropathy, unspecified M12.9 Active 322761847 Problem Major depressive disorder, single episode F32.9 Active 83936457 ALLERGIES No Known Allergies ENCOUNTERS Encounter Location Date Diagnosis [place] [address] [address] Apr, [place] [address] [address]- [address] Apr, Encounter for immunization Z23 and Injury of right ankle, initial encounter S99.911A [place] [address] [place] [id number] [place] [address]200- 6316 Dec, [place] [address] [address]- 3410 Nov, Pain in right ankle and joints of right foot M25.571 ; Other chronic pain G89.29 and Post-traumatic arthritis of right ankle M19.171 [place] [address] [address]- 0053 Oct, Arthritis M19.90 [place] [address] [address] 13 Aug, 2016 Arthritis M19.90 [facility] [address] [place] [id number] [place] [address] 63858- 1561 Aug, [facility] [address] [place] [id number] [place] [address] 75228- 1302 Jul, [facility] [address] [place] [id number] [place] [address] 16618- 9925 June, Arthropathy, unspecified M12.9 [facility] [address] [place] [id number] [place] [address] 84389- 8348 May, Asthma J45.909 and Major depressive disorder, single episode F32.9 [facility] [address] [place] [id number] [place] [address] 00180- 8812 16 Mar, 2016 Closed fracture of shaft of right fibula, unspecified fracture morphology, initial encounter S82.401A [facility] [address] [id number] [place] [address] 37067- 8915 Feb, [facility] [address] [place] [id number] [place] [address] 54821- 1356 Feb, [facility] [id number] [place] [address] 89993- 4537 Nov, [facility] [id number] [place] [address] 75417- 7329 Nov, Bipolar disorder F31.9 ; Encounter for immunization Z23 and Asthma J45.909 [facility] [id number] [address] 07[address] Aug, [facility] [address] [place] [id number] [place] [address] 90005- 6388 May, [facility] [address] [address]- 5395 Apr, [facility] [address] [place] [id number] [place] [address] 72288- 5874 Apr, [facility] [address] [place] [id number] [place] [address] 83350- 0920 Apr, URI (upper respiratory infection) J06.9 and Bipolar disorder F31.9 [facility] [address] [place] [id number] [place] [address] 15059- 8185 Feb, [facility] [address] 41134- 1426 Feb, Asthma J45.909 and Alcoholism F10.20 [facility] [address] [place] [id number] [place] [address] 52626- 5321 Jan, [facility] [address] 48118- 1804 Jan, [facility] [address] [place] [id number] [place] [address] 11241- 2555 Jan, [facility] [address] [place] [id number] [place] [address] 73733- 9883 Nov, Alcoholism F10.20 and Anxiety F41.9 [facility] [address] [place] [id number] [place] [address] 05032- 9150 Jul, Anxiety 300.00 and Arthropathy 716.90 [facility] [address] [place] [id number] [place] [address] 96671- 1547 Jul, [facility] [address] 50203- 0882 Jul, Anxiety state 300.00 [facility] [address] [place] [id number] [place] [address] 13007- 2740 May, [facility] [address] 34409- 3716 May, [facility] [address] [place] [id number] [place] [address] 73580- 7206 Apr, [facility] [address] [place] [address]- 3741 Apr, [facility] [place] [facility] [address] [id number] [place] [address]- 1550 Mar, [facility] [place] [facility] [address] [id number] [place] [address]- 4776 Mar, [facility] [place] [facility] [address] [id number] [place] [address]- 9350 Feb, [facility] [place] [facility] [address] [id number] [place] [address]- 4327 Feb, [facility] [place] [facility] [address] [id number] [place] [address]- 2290 Feb, [facility] [place] [facility] [address] [id number] [place] [address]- 5273 Feb, [facility] [place] [facility] [address] [id number] [place] [address]- 2494 Jan, [facility] [place] [facility] [address] [id number] [place] [address]- 3360 Jan, [facility] [place] [facility] [address] [id number] [place] [address] Jan, [facility] [place] [facility] [address] [facility] [id number] [place] [address]- 6876 Jan, [facility] [place] [facility] [address] [id number] [place] [address]- 0099 Nov, [facility] [place] [facility] [address] [id number] [place] [address]- 9728 Nov, [facility] [place] [facility] [address] [id number] [place] [address]- 0886 Nov, [facility] [place] [facility] [address] [id number] [place] 9412 Nov, [facility] [place] [facility] [address] [id number] [place] [address]- 2528 Nov, [facility] [place] [facility] [address] [id number] [place] [address]- 4581 Nov, [facility] [place] [facility] [address] [id number] [place] [address]- 1862 Nov, [facility] [place] [facility] [address] [id number] [place] [address]- 4872 Nov, [facility] [place] [facility] [address] [id number] [place] [address]- 2964 Nov, [facility] [place] [facility] [address] [id number] [place] [address]- 6374 Nov, [facility] [place] [facility] [address] [id number] [place] [address]- 8780 Nov, [facility] [place] [facility] [address] [id number] [place] [address]- 9734 Nov, [facility] [place] [facility] [address] [id number] [place] [address]- 5759 Nov, [facility] [place] [facility] [address] [id number] [place] [address]- 7038 30 Oct, 2013 [facility] [place] [facility] [address] [id number] [place] [address]- 2358 30 Oct, 2013 [facility] [place] [facility] [address] [id number] [place] [address]- 3704 26 Oct, 2013 [facility] [place] [facility] [address] [id number] [place] [address]- 1918 26 Sep, 2013 [facility] [place] [facility] [address] [id number] [place] [address]- 6469 08 Oct, 2013 [facility] [place] [facility] [address] [id number] [place] [address]- 0226 08 Oct, 2013 [facility] [place] [facility] [address] [id number] [place] [address]- 3095 04 Oct, 2013 [facility] [place] [facility] [address] [id number] [place] [address]- 2550 Oct, 2013 [facility] [place] [facility] [address] [id number] [place] [address]- 0518 Oct, 2013 [facility] [place] [facility] [address] [id number] [place] [address]- 2902 Oct, [facility] [place] [facility] [address] [id number] [place] [address]- 4079 Oct, [facility] [place] [facility] [address] [id number] [place] [address]- 8526 Oct, [facility] [place] [facility] [address] [id number] [place] [address]- 7985 Sep, [facility] [place] [facility] [address] [id number] [place] [address]- 8539 Sep, [facility] [place] [facility] [address] [id number] [place] [address]- 3206 Sep, [facility] [place] [facility] [address] [id number] [place] [address]- 3076 Sep, [facility] [place] [facility] [address] [id number] [place] [address]- 2482 Sep, [facility] [place] [facility] [address] [id number] [place] [address]- 4241 Sep, [facility] [place] [facility] [address] [id number] [place] [address]- 4404 Sep, [facility] [place] [facility] [address] [id number] [place] [address]- 0164 Sep, [facility] [place] [facility] [address] [id number] [place] [address]- 0118 Aug, [facility] [place] [facility] [address] [id number] [place] [address]- 8071 Aug, [facility] [place] [facility] [address] [id number] [place] [address]- 8865 Aug, [facility] [place] [facility] [address] [id number] [place] [address]- 8574 Aug, [facility] [place] [facility] [address] [id number] [place] [address]- 3311 Jul, [facility] [place] [facility] [address] [id number] [place] [address]- 5695 Jul, [facility] [place] [facility] [address] [id number] [place] [address]- 1027 Jul, [facility] [place] [facility] [address] [id number] [place] [address]- 9784 Jul, [facility] [place] [facility] [address] [id number] [place] [address]- 5523 Jul, [facility] [place] [facility] [address] [id number] [place] [address]- 3966 Jul, [facility] [place] [facility] [address] [id number] [place] [address]- 3052 June, [facility] [place] [facility] [address] [id number] [place] [address]- 5930 June, [facility] [place] [facility] [address] [id number] [place] [address]- 0590 June, [facility] [place] [facility] [address] [id number] [place] [address]- 0519 June, [facility] [place] [facility] [address] [id number] [place] [address]- 8702 June, [facility] [place] [facility] [address] [id number] [place] [address]- 7441 June, [facility] [place] [facility] [address] [id number] [place] [address]- 2611 May, [facility] [place] [facility] [address] [id number] [place] [address]- 4231 May, [facility] [place] [facility] [address] [id number] [place] [address]- 5940 May, [facility] [place] [facility] [address] [id number] [place] [address]- 6558 May, [facility] [place] [facility] [address] [id number] [place] [address]- 5815 May, [facility] [place] [facility] [address] [id number] [place] [address]- 8714 May, [facility] [place] [facility] [address] [id number] [place] [address]- 5965 May, [facility] [place] [facility] [address] [id number] [place] [address]- 7800 May, [facility] [place] [facility] [address] [id number] [place] [address]- 3444 May, [facility] [place] [facility] [address] [id number] [place] [address]- 7546 May, [facility] [place] [facility] [address] [id number] [place] [address]- 0112 Apr, [facility] [place] [facility] [address] [id number] [place] [address]- 3614 Apr, [facility] [place] [facility] [address] [id number] [place] [address]- 4696 Apr, [facility] [place] [facility] [address] [id number] [place] [address]- 6613 Apr, [facility] [place] [facility] [address] [id number] [place] [address]- 8913 Apr, [facility] [place] [facility] [address] [id number] [place] [address]- 0650 Apr, [facility] [place] [facility] [address] [id number] [place] [address]- 8160 Apr, [facility] [place] [facility] [address] [id number] [place] [address]- 9077 Apr, [facility] [place] [facility] [address] [id number] [place] [address]- 3640 Apr, [facility] [place] [facility] [address] [id number] [place] [address]- 6004 Apr, [facility] [place] [facility] [address] [id number] [place] [address]- 1238 Apr, [facility] [place] [facility] [address] [id number] [place] [address]- 1269 Apr, [facility] [place] [facility] [address] [id number] [place] [address]- 0862 Mar, [facility] [place] [facility] [address] [id number] [place] [address]- 4014 Mar, [facility] [place] [facility] [address] [id number] [place] [address]- 3422 Mar, [facility] [place] [facility] [address] [id number] [place] [address]- 3861 Mar, [facility] [place] [facility] [address] [id number] [place] [address]- 8135 Feb, [facility] [place] [facility] [address] [id number] [place] [address]- 2641 Feb, [facility] [place] [facility] [address] [id number] [place] [address]- 0976 Feb, [facility] [place] [facility] [address] [id number] [place] [address]- 9313 Feb, [facility] [place] [facility] [address] [id number] [address]- 3974 Feb, [facility] [place] [facility] [address] [id number] [place] [address]- 1054 Feb, [facility] [place] [facility] [address] [id number] [place] [address]- 7996 Feb, [facility] [place] [facility] [address] [id number] [place] [address]- 7172 Feb, [facility] [place] [facility] [address] [id number] [place] [address]- 8068 Feb, [facility] [address] [id number] [place] [address]- 6534 Feb, [facility] [address] [id number] [place] [address]- 4293 Jan, [facility] [place] [facility] [address] [id number] [place] [address]- 6968 Jan, [facility] [address] [id number] [place] [address]- 9947 Jan, [facility] [address] [id number] [place] [address]- 9092 Jan, [facility] [address] [id number] [place] [address]- 1135 Jan, [facility] [address] [id number] [place] [address]- 7653 Jan, [facility] [address] [id number] [place] [address]- 5518 Jan, [facility] [address] [id number] [place] [address]- 3208 Jan, [facility] [address] [id number] [place] [address]- 8032 Jan, [facility] [place] [facility] [address] [id number], [place] [address]- 0324 Dec, [facility] [place] [facility] [address] [id number] [place] [address]- 3541 Dec, [facility] [place] [facility] [address] [id number] [place] [address]- 7266 Dec, [facility] [place] [facility] [address] [id number] [place] [address]- 6565 Dec, [facility] [place] [facility] [address] [id number] [place] [address]- 5081 Nov, [facility] [place] [facility] [address] [id number] [place] [address]- 3532 Nov, [facility] [place] [facility] [address] [id number] [place] 6615 Nov, [facility] [place] [facility] [address] [id number] [place] [address]- 8519 Nov, [facility] [place] [facility] [address] [id number] [place] [address]- 4879 Nov, [facility] [place] [facility] [address] [id number] [place] [address]- 5360 Nov, [facility] [place] [facility] [address] [id number] [place] [address]- 9984 Oct, [facility] [place] [facility] [address] [id number] [place] [address]- 7963 Oct, [facility] [place] [facility] [address] [id number] [place] [address]- 2526 Sep, [facility] [place] [facility] [address] [id number] [place] [address]- 0905 Sep, [facility] [place] [facility] [address] [id number] [place] [address]- 3229 Sep, [facility] [place] [facility] [address] [id number] [place] [address]- 5298 Sep, [facility] [place] [facility] [address] [id number] [place] [address]- 8245 Aug, [facility] [place] [facility] [address] [id number] [place] [address]- 5885 Aug, [facility] [place] [facility] [address] [id number] [place] [address]- 1851 Aug, [facility] [place] [facility] [address] [id number] [place] [address]- 6220 Jul, [facility] [place] [facility] [address] [id number] [place] [address]- 2546 Jul, [facility] [address] [id number] [place] [address]- 5966 Jul, [facility] [address] [id number] [place] [address]- 2546 Jul, [facility] [address] [id number] [place] [address] 2546 June, [facility] [address] [id number] [place] [address]- 2546 June, [facility] [address] [id number] [place] [address]- 4496 May, [facility] [address] [id number] [place] [address]- 2546 May, [facility] [address] [id number] [place] [address]- 2546 Apr, [facility] [address] [id number] [place] [address]- 0267 Apr, [facility] [address] [id number] [place] [address]- 9826 Mar, [facility] [address] [id number] [place] [address] 2546 Mar, [facility] [address] [id number] [place] [address]- 2546 Feb, [facility] [address] [id number] [place] [address]- 2546 Feb, [facility] [address] [id number] [place] [address]- 2546 Feb, [facility] [address] [id number] [place] [address]- 2546 Feb, [facility] [address] [id number] [place] [address]- 4832 17 Feb, 2012 [facility] [place] [facility] [address] [id number] [place] [address]- 6630 16 Feb, 2012 [facility] [place] [facility] [address] [id number] [place] [address]- 7571 16 Feb, 2012 [facility] [place] [facility] [address] [id number] [place] [address]- 0947 14 Feb, 2012 [facility] [place] [facility] [address] [id number] [place] [address]- 5547 11 Feb, 2012 [facility] [place] [facility] [address] [id number] [place] [address]- 7331 Jan, [facility] [place] [facility] [address] [id number] [place] [address]- 2538 Jan, [facility] [place] [facility] [address] [id number] [place] [address]- 4267 Jan, [facility] [place] [facility] [address] [id number] [place] [address]- 0864 Jan, [facility] [place] [facility] [address] [id number] [place] [address]- 6760 Dec, [facility] [place] [facility] [address] [id number] [place] [address]- 7288 Dec, [facility] [place] [facility] [address] [id number] [place] [address]- 4649 Dec, [facility] [place] [facility] [address] [id number] [address]- 4130 Dec, [facility] [place] [facility] [address] [id number] [place] [address]- 8304 Oct, [facility] [place] [facility] [address] [id number] [place] [address]- 9150 Sep, [facility] [place] [facility] [address] [id number] [place] [address]- 4414 Sep, [facility] [place] [facility] [address] [id number] [address]- 2546 Aug, [facility] [id number] [address] Jul, [facility] [id number] [address] June, [facility] [id number] [address] June, [facility] [id number] [address] May, [facility] [id number] [place] [address] Apr, [facility] [id number] [address] Mar, [facility] [id number] [address] Mar, [facility] [id number] [address] Feb, [facility] [id number] [address] Dec, [facility] [id number] [place] [address] Nov, [facility] [id number] [address] Sep, [facility] [id number] [address] Aug, IMMUNIZATIONS Vaccine Route Administration Date Status FLULAVAL QUAD (6 MO AND UP) 2017 IM Intramuscular April 08, 2017 Administered SOCIAL HISTORY Never Assessed REASON FOR VISIT Pain management (chronic), - Berhane BRYANT, PT was taking her trash out 2 months ago and twisted her ankle and is in lots of pain PLAN OF CARE Activity Details Follow Up Will call after Xray report Reason: VITAL SIGNS Height 62 in 2017-04-08 Weight 90.4 lbs 2017-04-08 Temperature 97.8 degrees Fahrenheit 2017-04-08 Heart Rate 70 bpm 2017-04-08 Respiratory Rate 20 2017-04-08 BMI 16.53 kg/m2 2017-04-08 Blood pressure systolic 130 mmHg 2017-04-08 Blood pressure diastolic 70 mmHg 2017-04-08 MEDICATIONS Medication Instructions Dosage Frequency Start Date End Date Duration Status Potassium Chloride Kasia ER 20 MEQ TAKE ONE TABLET BY MOUTH EVERY DAY 30 Unknown Furosemide 40 MG TAKE ONE TABLET BY MOUTH EVERY DAY 30 Unknown Fetzima 40 MG Orally Once a day 1 capsule 24h Unknown Ativan 0.5 MG Orally Once a day 1 tablet as needed 24h Nov, Unknown Loratadine 10 mg Orally Once a day 1 tablet 24h 30 days Unknown Trazodone HCl 100 MG TAKE ONE TABLET BY MOUTH AT BEDTIME 30 Unknown Cane - as directed Nov, Unknown Tramadol HCl 50 mg Orally every 6 hrs 1 tablet as needed 6h Mar, Unknown BusPIRone HCl 10 MG Orally Twice a day 1 tablet 12h Jul, Unknown Tizanidine HCl 4 MG TAKE ONE TABLET BY MOUTH THREE TIMES DAILY 30 Unknown Seroquel XR 400 MG TAKE ONE TABLET BY MOUTH AT BEDTIME -MUST BE SEEN FOR FURTHER REFILLS 30 Unknown Cane - use while up walking Nov, Unknown Albuterol Sulfate 90 mcg/actuation Inhalation every 4-6 hours as needed 2 puffs Nov, Unknown conjugated estrogens 0.625 mg/gram insert 0.5 g by Vaginal route 1 time per weekdisp: 42.5 grams Feb, Unknown Gabapentin 300 MG TAKE 1 CAPSULE BY MOUTH THREE TIMES DAILY 30 Unknown Blood Pressure Cuff - to check BP 24h Jul, Unknown Diclofenac Sodium 75 MG TAKE 1 TABLET BY MOUTH TWICE DAILY WITH FOOD OR MILK 30 Unknown Diclofenac Sodium 75 MG Orally 2 times a day 1 tablet with food or milk 12h 30 Unknown RESULTS Name Result Date Reference Range Xray : Ankle, Right 2 views (IN HOUSE) 2017-04-08 PROCEDURES Procedure Date Ordered Result Body Site X-RAY EXAM OF ANKLE April 08, 2017 SINGLE IMMUNIZATION ADMIN April 08, 2017 FLULAVAL QUAD (6 MO AND UP) 2017 April 08, 2017 INSTRUCTIONS MEDICATIONS ADMINISTERED No Known Medications MEDICAL (GENERAL) HISTORY Type Description Date Medical History asthma Medical History headache Medical History chronic pain-low back with spasms Medical History anxiety Medical History depression Hospitalization History childbirth x 4
--- OUTSIDE RECORDS SUMMARY | 2017-09-13 22:03 | XMS REPORT | Continuity of Care Document ---
Author Author [facility] Address Unknown Phone Unavailable Allergies Active Description Code Type Severity Reaction Onset Reported/Identified Relationship to Patient Clinical Status Yes No Known Drug Allergies [id number] Drug Allergy Unknown N/A 07/20/2012 Medications There [...] MD 465.9 Upper Respiratory Infection 04/01/2010 DWIGHT CHIEF OF STAFF DOCTOR, APRIL A 305.1 NONDEPENDENT TOBACCO USE DISORDER 04/01/2010 DWIGHT CHIEF OF STAFF DOCTOR, APRIL A 465.9 Upper Respiratory Infection 04/01/2010 DWIGHT CHIEF OF STAFF DOCTOR, APRIL A 305.1 NONDEPENDENT TOBACCO USE DISORDER 04/01/2010 DWIGHT CHIEF OF STAFF DOCTOR, APRIL A 465.9 Upper Respiratory Infection 04/01/2010 [...] TUNNEL SYNDROME 05/14/2010 HUMA LOZOYA MD 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 Sawmill Worker 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, 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 05/14/2010 BALDERRAMA DO, BERRY K 354.0 CARPAL TUNNEL SYNDROME 05/14/2010 BALDERRAMA DO BERRY K 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.31 Sawmill Worker Exam, Routine 05/14/2010 BALDERRAMA DO, BERRY K 354.0 CARPAL TUNNEL SYNDROME 05/14/2010 BALDERRAMA DO, BERRY K V72.31 Sawmill Worker Exam, Routine 05/14/2010 DEVORA PINEDO, HUMA 354.0 CARPAL TUNNEL SYNDROME 05/14/2010 DEVORA PINEDO, HUMA 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.31 Sawmill Worker Exam, Routine 05/14/2010 354.0 CARPAL TUNNEL SYNDROME 05/14/2010 V72.31 Sawmill Worker Exam, Routine 05/14/2010 DEVORA PINEDO, HUMA 354.0 CARPAL TUNNEL SYNDROME 05/14/2010 DEVORA PINEDO, HUMA V72.31 Sawmill Worker Exam, Routine 05/14/2010 DEVORA PINEDO, HUMA 354.0 CARPAL TUNNEL SYNDROME 05/14/2010 DEVORA PINEDO, HUMA V72.31 Sawmill Worker Exam, Routine 05/14/2010 DEVORA PINEDO, HUMA 354.0 CARPAL TUNNEL SYNDROME 05/14/2010 HUMA LOZOYA MD V72.31 Sawmill Worker Exam, Routine 05/14/2010 DEVORA PINEDO, HUMA 354.0 CARPAL TUNNEL SYNDROME 05/14/2010 HUMA LOZYOA MD V72.31 Sawmill Worker Exam, Routine 05/14/2010 HUMA LOZOYA MD 354.0 CARPAL TUNNEL SYNDROME 05/14/2010 HUMA LOZOYA MD V72.31 Sawmill Worker Exam, Routine 05/14/2010 DWIGHT FAIRCHILD, APRIL A 354.0 CARPAL TUNNEL SYNDROME 05/14/2010 APRIL QUINTANILLA APRN A V72.31 Sawmill Worker Exam, Routine 05/14/2010 DWIGHT FAIRCHILD, APRIL A 354.0 CARPAL TUNNEL SYNDROME 05/14/2010 APRIL QUINTANILLA APRN A V72.31 Sawmill Worker Exam, Routine 05/14/2010 BALDERRAMA DO, BERRY K 354.0 CARPAL TUNNEL SYNDROME 05/14/2010 BALDERRAMA DO, BERRY K V72.31 Sawmill Worker Exam, Routine 05/14/2010 BALDERRAMA DO, BERRY K 354.0 CARPAL TUNNEL SYNDROME 05/14/2010 BALDERRAMA DO, BERRY K V72.31 Sawmill Worker Exam, Routine 05/14/2010 DEVORA PINEDO, HUMA 354.0 CARPAL TUNNEL SYNDROME 05/14/2010 HUMA LOZOYA MD V72.31 Sawmill Worker Exam, Routine 05/14/2010 DEVORA PINEDO, HUMA 354.0 CARPAL TUNNEL SYNDROME 05/14/2010 HUMA LOZOYA MD V72.31 Sawmill Worker Exam, Routine 05/14/2010 ADDIS SPRINGER APRN 354.0 CARPAL TUNNEL SYNDROME 05/14/2010 ADDIS SPRINGER APRN A V72.31 Sawmill Worker Exam, Routine 05/14/2010 HUMA LOZOYA MD 354.0 CARPAL TUNNEL SYNDROME 05/14/2010 HUMA LOZOYA MD V72.31 Sawmill Worker Exam, Routine 05/14/2010 HUMA LOZOYA MD 354.0 CARPAL TUNNEL SYNDROME 05/14/2010 HUMA LOZOYA MD V72.31 Sawmill Worker Exam, Routine 05/14/2010 354.0 CARPAL TUNNEL SYNDROME 05/14/2010 V72.31 Sawmill Worker Exam, Routine 05/14/2010 HUMA LOZOYA MD 354.0 CARPAL TUNNEL SYNDROME 05/14/2010 HUMA LOZOYA MD V72.31 Sawmill Worker Exam, Routine 06/09/2010 HUMA LOZOYA MD 381.81 [...] 381.81 Dysfunction Of Eustachian Tube 06/09/2010 APRIL QUNITANILLA APRN 381.81 Dysfunction Of Eustachian Tube 06/09/2010 [...] CERVICAL CANCER SCREENING (PAP SMEAR) 03/28/2012 HUMA LZOOYA MD 272.4 OTHER AND [...] V76.51 COLON CANCER SCREENING 04/17/2013 BALDERRAMA DO BERYR K V82.81 SPECIAL SCREENING FOR OSTEOPOROSIS 04/17/2013 [...] MD V76.10 BREAST CANCER SCREENING 04/17/2013 HUMA LOOZYA MD V76.51 COLON CANCER SCREENING 04/17/2013 HUMA [...] LOZOYA MD Ot V76.12 03/16/2014 APRIL QUINTANILLA CHIEF OF STAFF DOCTOR Ot 733.90 03/16/2014 APRIL QUINTANILLA A CHIEF OF STAFF DOCTOR Ot V65.42 03/16/2014 DWIGHT APRIL A CHIEF OF STAFF DOCTOR Ot V65.49 03/16/2014 DWIGHT APRIL A CHIEF OF STAFF DOCTOR Ot V76.12 03/16/2014 DWIGHT APRIL A CHIEF OF STAFF DOCTOR Ot V76.51 03/16/2014 DWIGHT, APRIL A CHIEF OF STAFF DOCTOR Ot V82.81 03/19/2014 HUMA LOZOYA MD V76.10 [...] STATUS 03/03/2016 LI LOPEZ APRN Ot Z79.82 SHELTER (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 OF ASPIRIN 03/03/2016 LI LOPEZ APRN Ot Z79.899 OTHER SHELTER (CURRENT) DRUG THERAPY 03/03/2016 Ot V76.12 OTH SCREEN MAMMO-MALIGN NEOPLASM OF ETIENNE 03/03/2016 DEVORA PINEDO, HUMA Sparks Ot V76.12 OTH SCREEN MAMMO-MALIGN NEOPLASM OF ETIENNE 03/03/2016 APRIL QUINTANILLA CHIEF OF STAFF DOCTOR Ot 733.90 BONE CARTILAGE DIS NOS 03/03/2016 APRIL QUINTANILLA CHIEF OF STAFF DOCTOR Ot V65.42 COUNSELING ON SUBSTANCE USE AND ABUSE 03/03/2016 APRIL QUINTANILLA CHIEF OF STAFF DOCTOR Ot V65.49 OTHER SPECIFIED COUNSELING 03/03/2016 APRIL QUINTANILLA CHIEF OF STAFF DOCTOR Ot V76.12 OTH SCREEN MAMMO-MALIGN NEOPLASM OF ETIENNE 03/03/2016 APRIL QUINTANILLA CHIEF OF STAFF DOCTOR Ot V76.51 SCREEN MAL NEOP-COLON 03/03/2016 APRIL QUINTANILLA CHIEF OF STAFF DOCTOR Ot V82.81 SCREENING FOR OSTEOPOROSIS 03/03/2016 Ot V76.12 OTH SCREEN MAMMO-MALIGN NEOPLASM OF ETIENNE 03/03/2016 HUMA LOZOYA MD Ot V76.12 OTH SCREEN MAMMO-MALIGN NEOPLASM OF ETIENNE 03/03/2016 APRIL QUINTANILLA CHIEF OF STAFF DOCTOR Ot 733.90 BONE CARTILAGE DIS NOS 03/03/2016 APRIL QUINTANILLA CHIEF OF STAFF DOCTOR Ot V65.42 COUNSELING ON SUBSTANCE USE AND ABUSE 03/03/2016 APRIL QUINTANILLA CHIEF OF STAFF DOCTOR Ot V65.49 OTHER SPECIFIED COUNSELING 03/03/2016 APRIL QUINTANILLA CHIEF OF STAFF DOCTOR Ot V76.12 OTH SCREEN MAMMO-MALIGN NEOPLASM OF ETIENNE 03/03/2016 APRIL QUINTANILLA CHIEF OF STAFF DOCTOR Ot V76.51 SCREEN MAL NEOP-COLON 03/03/2016 APRIL QUINTANILLA CHIEF OF STAFF DOCTOR Ot V82.81 SCREENING FOR OSTEOPOROSIS 03/04/2016 LI LOPEZ APRN Ot J44.9 CHRONIC OBSTRUCTIVE PULMONARY DISEASE, U 03/04/2016 LI LOPEZ APRN Ot S82.401A UNSP FRACTURE OF SHAFT OF RIGHT FIBULA, 03/04/2016 LI LOPEZ APRN Ot S99.911A UNSPECIFIED INJURY OF RIGHT ANKLE, INITI 03/04/2016 LI LOPEZ APRN Ot X58.XXXA EXPOSURE TO OTHER SPECIFIED FACTORS, INI 03/04/2016 LI LOPEZ APRN Ot Y92.[address] IN [facility] NON-INSTITUT (PRIVATE 03/04/2016 LI LOPEZ APRN Ot Y99.8 OTHER EXTERNAL CAUSE STATUS 03/04/2016 LI LOPEZ APRN Ot Z79.82 CROCHETER HAND (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 OF ASPIRIN 03/04/2016 LI LOPEZ APRN Ot Z79.899 OTHER SHELTER (CURRENT) DRUG THERAPY 03/05/2016 LI LOPEZ APRN Ot J44.9 CHRONIC OBSTRUCTIVE PULMONARY DISEASE, U 03/05/2016 LI LOPEZ APRN Ot S82.401A UNSP FRACTURE OF SHAFT OF RIGHT FIBULA, 03/05/2016 LI LOPEZ APRN Ot S99.911A UNSPECIFIED INJURY OF RIGHT ANKLE, INITI 03/05/2016 LI LOPEZ APRN Ot X58.XXXA EXPOSURE TO OTHER SPECIFIED FACTORS, INI 03/05/2016 LI LOPEZ APRN Ot Y92.[address] IN [facility] NON-INST[facility] (PRIVATE 03/05/2016 LI LOPEZ APRN Ot Y99.8 OTHER EXTERNAL CAUSE STATUS 03/05/2016 LI LOPEZ APRN Ot Z79.82 SHELTER (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 OF ASPIRIN 03/05/2016 LI LOPEZ APRN Ot Z79.899 OTHER CROCHETER HAND (CURRENT) DRUG THERAPY 07/11/2016 MELISSA GARCIA Ot F10.129 ALCOHOL ABUSE WITH INTOXICATION, UNSPECI 07/11/2016 MELISSA GARCIA Ot F17.210 NICOTINE DEPENDENCE, CIGARETTES, UNCOMPL 07/11/2016 MELISSA GARCIA Ot J44.9 CHRONIC OBSTRUCTIVE PULMONARY DISEASE, U 07/11/2016 MELISSA GARCIA Ot Y90.6 BLOOD ALCOHOL LEVEL OF 120-199 MG/100 ML 07/11/2016 MELISSA GARCIA Ot Z79.82 CROCHETER HAND (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 OF ASPIRIN 07/11/2016 MELISSA GARCIA Ot Z79.899 OTHER CROCHETER HAND (CURRENT) DRUG THERAPY 04/06/2017 MALIA JOLLY MD [...] R 04/06/2017 MALIA JOLLY MD Ot Z79.82 SHELTER (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 OF ASPIRIN 04/06/2017 MALIA JOLLY [...] FACTORS, INI 04/06/2017 MELISSA GARCIA Ot Z79.82 SHELTER (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 OF ASPIRIN 04/06/2017 MELISSA GARCIA [...] R 04/08/2017 MALIA JOLLY MD Ot Z79.82 CROCHETER HAND (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 OF ASPIRIN 04/08/2017 MALIA JOLLY [...] FACTORS, INI 04/08/2017 MELISSA GARCIA Ot Z79.82 CROCHETER HAND (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 OF ASPIRIN 04/08/2017 MELISSA GARCIA [...] NEOPLASM OF ETIENNE 05/19/2017 DWIGHT, APRIL A CHIEF OF STAFF DOCTOR Ot 733.90 BONE CARTILAGE DIS NOS 05/19/2017 DWIGHT, APRIL A CHIEF OF STAFF DOCTOR Ot V65.42 COUNSELING ON SUBSTANCE USE AND ABUSE 05/19/2017 DWIGHT, APRIL A CHIEF OF STAFF DOCTOR Ot V65.49 OTHER SPECIFIED COUNSELING 05/19/2017 DWIGHT, APRIL A CHIEF OF STAFF DOCTOR Ot V76.12 OTH SCREEN MAMMO-MALIGN NEOPLASM OF ETIENNE 05/19/2017 DWIGHT, APRIL A CHIEF OF STAFF DOCTOR Ot V76.51 SCREEN MAL NEOP-COLON 05/19/2017 DWIGHT, APRIL A CHIEF OF STAFF DOCTOR Ot V82.81 SCREENING FOR OSTEOPOROSIS 05/19/2017 MELISSA GARCIA Ot R06.02 SHORTNESS OF BREATH 05/19/2017 Ot V76.12 OTH SCREEN MAMMO-MALIGN NEOPLASM OF ETIENNE 05/19/2017 HUMA LOZOYA MD Ot V76.12 OTH SCREEN MAMMO-MALIGN NEOPLASM OF ETIENNE 05/19/2017 DWIGHT, APRIL A CHIEF OF STAFF DOCTOR Ot 733.90 BONE CARTILAGE DIS NOS 05/19/2017 DWIGHT, APRIL A CHIEF OF STAFF DOCTOR Ot V65.42 COUNSELING ON SUBSTANCE USE AND ABUSE 05/19/2017 DWIGHT, APRIL A CHIEF OF STAFF DOCTOR Ot V65.49 OTHER SPECIFIED COUNSELING 05/19/2017 DWIGHT, APRIL A CHIEF OF STAFF DOCTOR Ot V76.12 OTH SCREEN MAMMO-MALIGN NEOPLASM OF ETIENNE 05/19/2017 DWIGHT, APRIL A CHIEF OF STAFF DOCTOR Ot V76.51 SCREEN MAL NEOP-COLON 05/19/2017 DWIGHT, APRIL A CHIEF OF STAFF DOCTOR Ot V82.81 SCREENING FOR OSTEOPOROSIS 05/19/2017 MELISSA GARCIA Ot R06.02 SHORTNESS OF BREATH 05/20/2017 Ot V76.12 OTH SCREEN MAMMO-MALIGN NEOPLASM OF ETIENNE 05/20/2017 DEVORA PINEDO, HUMA Sparks Ot V76.12 OTH SCREEN MAMMO-MALIGN NEOPLASM OF ETIENNE 05/20/2017 APRIL QUINTANILLA CHIEF OF STAFF DOCTOR Ot 733.90 BONE CARTILAGE DIS NOS 05/20/2017 DWIGHTJIAPRIL Jp CHIEF OF STAFF DOCTOR Ot V65.42 COUNSELING ON SUBSTANCE USE AND ABUSE 05/20/2017 DWIGHTJIAPRIL A CHIEF OF STAFF DOCTOR Ot V65.49 OTHER SPECIFIED COUNSELING 05/20/2017 DWIGHTJIAPRIL Jp CHIEF OF STAFF DOCTOR Ot V76.12 OTH SCREEN MAMMO-MALIGN NEOPLASM OF ETIENNE 05/20/2017 DWIGHTJIAPRIL Jp CHIEF OF STAFF DOCTOR Ot V76.51 SCREEN MAL NEOP-COLON 05/20/2017 DWIGHT, APRIL A CHIEF OF STAFF DOCTOR Ot V82.81 SCREENING FOR OSTEOPOROSIS 05/21/2017 HONEY GOLDBERG MD Ot M79.609 PAIN IN UNSPECIFIED LIMB 05/21/2017 HONEY GOLDBREG MD Ot R06.02 SHORTNESS OF BREATH 05/21/2017 [...] BREATH 05/21/2017 LI LOPEZ APRN Ot Z79.82 CROCHETER HAND (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 OF ASPIRIN 05/21/2017 LI LOPEZ APRN Ot Z80.8 FAMILY HISTORY OF MALIGNANT NEOPLASM OF 05/21/2017 LI LOPEZ APRN Ot Z87.448 PERSONAL HISTORY OF OTHER DISEASES OF UR 05/21/2017 LOPEZ, PETER J CHIEF OF STAFF DOCTOR Ot Z91.5 PERSONAL HISTORY OF SELF-HARM 05/24/2017 [...] BREATH 05/24/2017 LI LOPEZ APRN Ot Z79.82 CROCHETER HAND (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 OF ASPIRIN 05/24/2017 LI LOPEZ APRN Ot Z80.8 FAMILY HISTORY OF MALIGNANT NEOPLASM OF 05/24/2017 LI LOPEZ APRN Ot Z87.448 PERSONAL HISTORY OF OTHER DISEASES OF UR 05/24/2017 LI LOPEZ APRN Ot Z91.5 PERSONAL HISTORY OF SELF-HARM 05/29/2017 SHAHANA ROSENTHALP Ot F10.129 ALCOHOL ABUSE WITH INTOXICATION, UNSPECI 05/29/2017 ARIADNA SHAHANA WORSTED WINDER Ot F12.90 CANNABIS USE, UNSPECIFIED, UNCOMPLICATED 05/29/2017 ARIADNA SHAHANA WORSTED WINDER Ot F31.9 BIPOLAR DISORDER, UNSPECIFIED 05/29/2017 ARIADNA SHAHANA WORSTED WINDER Ot F41.9 ANXIETY DISORDER, UNSPECIFIED 05/29/2017 ARIADNA SHAHANA WORSTED WINDER Ot G47.30 SLEEP APNEA, UNSPECIFIED 05/29/2017 SHAHANA ROSENTHAL WORSTED WINDER Ot G47.9 SLEEP DISORDER, UNSPECIFIED 05/29/2017 ARIADNA SHAHANA WORSTED WINDER Ot J44.9 CHRONIC OBSTRUCTIVE PULMONARY DISEASE, U 05/29/2017 SHAHANA ROSENTHAL WORSTED WINDER Ot R06.02 SHORTNESS OF BREATH 05/29/2017 SHAHANA ROSENTHAL WORSTED WINDER Ot Z77.22 CNTCT W AND EXPSR TO ENVIRON TOBACCO SMO 05/29/2017 SHAHANA ROSENTHAL WORSTED WINDER Ot Z79.82 CROCHETER HAND (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 OF ASPIRIN 05/29/2017 SHAHANA ROSENTHAL WORSTED WINDER Ot Z87.81 PERSONAL HISTORY OF (HEALED) TRAUMATIC F 05/29/2017 SHAHANA ROSENTHAL WORSTED WINDER Ot Z91.5 PERSONAL HISTORY OF SELF-HARM 06/08/2017 MELISSA GARCIA Ot F10.129 ALCOHOL ABUSE WITH INTOXICATION, UNSPECI 06/08/2017 MELISSA GARCIA Ot F10.229 ALCOHOL DEPENDENCE WITH INTOXICATION, UN 06/08/2017 MELISSA GARCIA Ot F12.10 CANNABIS ABUSE, UNCOMPLICATED 06/08/2017 MELISSA GARCIA Ot F17.210 NICOTINE DEPENDENCE, CIGARETTES, UNCOMPL 06/08/2017 MELISSA GARCIA Ot F31.9 BIPOLAR DISORDER, UNSPECIFIED 06/08/2017 MELISSA GARCIA Ot F41.9 ANXIETY DISORDER, UNSPECIFIED 06/08/2017 MELISSA GARCIA Ot G47.30 SLEEP APNEA, UNSPECIFIED 06/08/2017 MELISSA GARCIA Ot J44.9 CHRONIC OBSTRUCTIVE PULMONARY DISEASE, U 06/08/2017 MELISSA GARCIA Ot Z79.82 CROCHETER HAND (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 OF ASPIRIN 06/08/2017 MELISSA GARCIA Ot Z80.8 FAMILY HISTORY OF MALIGNANT NEOPLASM OF 06/08/2017 MELISSA GARCIA Ot Z91.5 PERSONAL HISTORY OF SELF-HARM 06/10/2017 MELISSA GARCIA Ot F10.129 ALCOHOL ABUSE WITH INTOXICATION, UNSPECI 06/10/2017 MELISSA GARCIA Ot F10.229 ALCOHOL DEPENDENCE WITH INTOXICATION, UN 06/10/2017 MELISSA GARCIA Ot F12.10 CANNABIS ABUSE, UNCOMPLICATED 06/10/2017 MELISSA GARCIA Ot F17.210 NICOTINE DEPENDENCE, CIGARETTES, UNCOMPL 06/10/2017 MELISSA GARCIA Ot F31.9 BIPOLAR DISORDER, UNSPECIFIED 06/10/2017 MELISSA GARCIA Ot F41.9 ANXIETY DISORDER, UNSPECIFIED 06/10/2017 MELISSA GARCIA Ot G47.30 SLEEP APNEA, UNSPECIFIED 06/10/2017 MELISSA GARCIA Ot J44.9 CHRONIC OBSTRUCTIVE PULMONARY DISEASE, U 06/10/2017 MELISSA GARCIA Ot Z79.82 CROCHETER HAND (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 OF ASPIRIN 06/10/2017 MELISSA GARCIA Ot Z80.8 FAMILY HISTORY OF MALIGNANT NEOPLASM OF 06/10/2017 MELISSA GARCIA Ot Z91.5 PERSONAL HISTORY OF SELF-HARM 08/23/2017 LI LOPEZ APRN Ot F10.229 ALCOHOL DEPENDENCE WITH INTOXICATION, UN 08/23/2017 LI LOPEZ APRN Ot F12.10 CANNABIS ABUSE, UNCOMPLICATED 08/23/2017 LI LOPEZ APRN Ot F31.9 BIPOLAR DISORDER, UNSPECIFIED 08/23/2017 LI LOPEZ APRN Ot F41.9 ANXIETY DISORDER, UNSPECIFIED 08/23/2017 LI LOPEZ APRN Ot G47.30 SLEEP APNEA, UNSPECIFIED 08/23/2017 LI LOPEZ APRN Ot J44.9 CHRONIC OBSTRUCTIVE PULMONARY DISEASE, U 08/23/2017 LI LOPEZ APRN Ot R06.02 SHORTNESS OF BREATH 08/23/2017 LI LOPEZ APRN Ot Z77.22 CNTCT W AND EXPSR TO ENVIRON TOBACCO SMO 08/23/2017 LI LOPEZ APRN Ot Z79.82 CROCHETER HAND (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 OF ASPIRIN 08/23/2017 LI LOPEZ APRN Ot Z80.8 FAMILY HISTORY OF MALIGNANT NEOPLASM OF 08/23/2017 LI LOPEZ APRN Ot Z91.5 PERSONAL HISTORY OF SELF-HARM Procedures Code Description Performed By Performed On Psychiatr [facility] 10/09/2011 44636 UA W/ CULTURE IF INDICATED 02/19/2012 72494 ROUTINE VENIPUNCTURE 02/22/2012 69822 CBC 02/22/2012 45331 LIPID PANEL 02/22/2012 43770 CMP 02/22/2012 [id number] GFR CALC (RESULT ONLY) 02/22/2012 88345 TSH 02/23/2012 01387 MAMMOGRAM, SCREENING 02/23/2012 40455 HEMOCCULT 02/23/2012 85781 PAP SMEAR 02/23/2012 Q0091 PAP SMEAR OBTAIN SMEAR 02/23/2012 37913 URINE DRUG SCREEN (IN-HOUSE ) 01/18/2013 91198 MAMMOGRAM, SCREENING 01/19/2013 URINEDRUG URINE DRUG SCREEN (CON'F ) 01/19/2013 16937 BONE DENSITY, DEXA 04/17/2013 GENERAL S Kido, Ken 04/17/2013 33054 BONE MINERAL DENSITY, HEEL US (IN HOUSE) 04/17/2013 35918 XRAY CERVICAL SPINE, 2 OR 3 VIEWS 06/02/2013 75268 ROUTINE VENIPUNCTURE 02/16/2014 67274 MAMMOGRAM, SCREENING 02/16/2014 [id number] GFR CALC (RESULT ONLY) 02/16/2014 04748 CMP 02/16/2014 Results Test Result Range Complete [...] automated white blood cell (WBC) differential - 08/19/17 18:29 Blood leukocytes automated count (number/volume) 11.3 10*3/uL 4.3-11.0 Blood erythrocytes automated count (number/volume) 3.89 10*6/uL 4.35-5.85 Venous blood hemoglobin measurement (mass/volume) 13.8 g/dL 11.5-16.0 Blood hematocrit (volume fraction) 39 % 35-52 Automated erythrocyte mean corpuscular volume 99 [foz_us] 80-99 Automated erythrocyte mean corpuscular hemoglobin (mass per erythrocyte) 36 pg 25-34 Automated erythrocyte mean corpuscular hemoglobin concentration measurement ( mass/volume) 36 g/dL 32-36 Automated erythrocyte distribution width ratio 12.9 % 10.0-14.5 Automated blood platelet count (count/volume) 282 10*3/uL 130-400 Automated blood platelet mean volume measurement 9.7 [foz_us] 7.4-10.4 Automated blood neutrophils/100 leukocytes 48 % 42-75 Automated blood lymphocytes/100 leukocytes 37 % 12-44 Blood monocytes/100 leukocytes 12 % 0-12 Automated blood eosinophils/100 leukocytes 2 % 0-10 Automated blood basophils/100 leukocytes 1 % 0-10 Blood neutrophils automated count (number/volume) 5.4 10*3 1.8-7.8 Blood lymphocytes automated count (number/volume) 4.2 10*3 1.0-4.0 Blood monocytes automated count (number/volume) 1.4 10*3 0.0-1.0 Automated eosinophil count 0.2 10*3/uL 0.0-0.3 Automated blood basophil count (count/volume) 0.1 10*3/uL 0.0-0.1 Whole blood basic metabolic panel - 08/19/17 18:29 Serum or plasma sodium measurement (moles/volume) 137 mmol/L 135-145 Serum or plasma potassium measurement (moles/volume) 3.7 mmol/L 3.6-5.0 Serum or plasma chloride measurement (moles/volume) 103 mmol/L 98-107 Carbon dioxide 23 mmol/L 21-32 Serum or plasma anion gap determination (moles/volume) 11 mmol/L 5-14 Serum or plasma urea nitrogen measurement (mass/volume) 12 mg/dL 7-18 Serum or plasma creatinine measurement (mass/volume) 0.60 mg/dL 0.60-1.30 Serum or plasma urea nitrogen/creatinine mass ratio 20 NRG Serum or plasma creatinine measurement with calculation of estimated glomerular filtration rate > NRG Serum or plasma glucose measurement (mass/volume) 80 mg/dL 70-105 Serum or plasma calcium measurement (mass/volume) 9.2 mg/dL 8.5-10.1 Serum or plasma ethanol measurement (mass/volume) - 08/19/17 18:29 Serum or plasma ethanol measurement (mass/volume) 219 mg/dL <10 Complete urinalysis with reflex to culture - 08/19/17 18:44 Urine color determination YELLOW NRG Urine clarity determination CLEAR NRG Urine pH measurement by test strip 6 5-9 Specific gravity of urine by test [...] urine sediment by light microscopy NONE NRG Squamous epithelial cells detection in urine sediment by light microscopy RARE NRG Crystals detection in urine sediment by light microscopy NONE NRG Casts detection in urine sediment by light microscopy NONE NRG Mucus detection in urine sediment by light microscopy NEGATIVE NRG Complete urinalysis with reflex to culture NO NRG Urine drug screening test - 08/19/17 18:44 Urine phencyclidine detection by screening method NEGATIVE NEGATIVE Urine benzodiazepines detection by screening method NEGATIVE NEGATIVE Urine cocaine detection NEGATIVE NEGATIVE Urine amphetamines detection by screening method NEGATIVE NEGATIVE Urine methamphetamine detection by screening method NEGATIVE NEGATIVE Urine cannabinoids detection by screening method POSITIVE NEGATIVE Urine opiates detection by screening method NEGATIVE NEGATIVE Urine barbiturates detection NEGATIVE NEGATIVE Screening urine tricyclic antidepressants detection NEGATIVE NEGATIVE Urine methadone detection by screening method NEGATIVE NEGATIVE Urine oxycodone detection NEGATIVE NEGATIVE Urine propoxyphene detection NEGATIVE NEGATIVE Encounters ACCT No. Visit Date/Time Discharge Status Pt. Type Provider Facility Loc./Unit Complaint [id number] 02/16/2014 11:31:00 02/16/2014 23:59:59 CLS Outpatient HUMA LOZOYA MD [id number] 12/02/2013 06:43:00 12/02/2013 23:59:59 CLS Outpatient HUMA LOZOYA MD [id number] 11/27/2013 11:19:00 11/27/2013 23:59:59 CLS Outpatient HUMA LOZOYA MD [id number] 10/30/2013 12:59:00 10/30/2013 23:59:59 CLS Outpatient ADDIS SPRINGER APRN [id number] 09/18/2013 13:40:00 09/18/2013 23:59:59 CLS Outpatient HUMA LOZOYA MD [id number] 07/25/2013 16:53:00 07/25/2013 23:59:59 CLS Outpatient HUMA LOZOYA MD [id number] 06/02/2013 11:36:00 06/02/2013 23:59:59 CLS Outpatient BERRY BALDERRAMA DO [id number] 06/02/2013 11:36:00 06/02/2013 23:59:59 CLS Outpatient BERRY BALDERRAMA DO [id number] 04/17/2013 10:34:00 04/17/2013 23:59:59 CLS Outpatient APRIL QUINTANILLA APRN [id number] 04/17/2013 10:34:00 04/17/2013 23:59:59 CLS Outpatient APRIL QUINTANILLA APRN [id number] 03/02/2013 13:45:00 03/02/2013 23:59:59 CLS Outpatient HUMA LOZOYA MD [id number] 03/02/2013 13:45:00 03/02/2013 23:59:59 CLS Outpatient HUMA LOZOYA MD [id number] 01/18/2013 14:08:00 01/18/2013 23:59:59 CLS Outpatient HUMA LOZOYA MD [id number] 12/19/2012 11:31:00 12/19/2012 23:59:59 CLS Outpatient HUMA LOZOYA MD [id number] 09/29/2012 16:24:00 09/29/2012 23:59:59 CLS Outpatient HUMA LOZOYA MD [id number] 03/28/2012 11:42:00 03/28/2012 23:59:59 CLS Outpatient HUMA LOZOYA MD [id number] 02/22/2012 09:43:00 02/22/2012 23:59:59 CLS Outpatient BERRY BALDERRAMA DO Benny [id number] 02/19/2012 13:27:00 02/19/2012 23:59:59 CLS Outpatient BERRY BALDERRAMA DO Benny [id number] 10/02/2011 09:36:00 10/02/2011 23:59:59 [place] [id number] 10/02/2011 09:36:00 10/02/2011 23:59:59 CLS Outpatient [id number] 06/24/2012 13:29:00 Document Registration [id number] 08/19/2017 18:05:00 08/19/2017 18:55:00 DIS Outpatient LI LOPEZ APRN [facility] ER SOB/ETOH DETOX [id number] 06/08/2017 20:29:00 06/08/2017 21:10:00 DIS Emergency MELISSA GARCIA [facility] ER SOA [id number] 05/29/2017 16:55:00 05/29/2017 18:10:00 DIS Emergency SHAHANA ROSENTHAL [facility] ER SOA [id number] 05/21/2017 21:00:00 05/21/2017 22:16:00 DIS Emergency LI LOPEZ APRN [facility] ER SOB [id number] 05/19/2017 17:05:00 05/19/2017 17:31:00 DIS Outpatient HONEY GOLDBERG MD [facility] ER SOA [id number] 05/11/2017 21:12:00 05/11/2017 21:57:00 DIS Emergency MELISSA GARCIA [facility] ER SOA [id number] 04/06/2017 18:38:00 04/06/2017 20:05:00 DIS Emergency MELISSA GARCIA [facility] ER ANKLE PAIN [id number] 04/06/2017 12:39:00 04/06/2017 15:08:00 DIS Emergency MAILA JOLLY MD [facility] ER DRUG/ETOH ABUSE [id number] 07/11/2016 16:09:00 07/11/2016 19:12:00 DIS Emergency MELISSA GARCIA [facility] ER ALCOHOL INTOX [id number] 03/03/2016 15:38:00 03/03/2016 16:45:00 DIS Emergency LI LOPEZ CHIEF OF STAFF DOCTOR [facility] ER R ANKLE PAIN [id number] 05/02/2015 16:39:00 05/04/2015 13:14:00 DIS Inpatient CHINMAY PINEDO, FINESSE Trammell [facility] 4TH RLL PNUEMONIA [id number] 11/19/2013 22:15:00 11/20/2013 10:50:00 DIS Inpatient DANICA LERNER MD [facility] ICU ETOH INTOXICATION, AMS [id number] 10/02/2013 15:43:00 10/03/2013 14:03:00 DIS Inpatient BERRY BALDERRAMA DO [facility] ICU SUICIDAL/HOMICIDAL IDEATION, ETOH INTOXICATION [id number] 04/27/2013 09:25:00 04/27/2013 23:59:59 CLS Outpatient APRIL QUINTANILLA APRN [facility] RAD OSTEOPENIA [id number] 03/06/2013 10:54:00 03/06/2013 23:59:59 CLS Outpatient HUMA LOZOYA MD [facility] RAD SCREENING [id number] 11/14/2012 15:16:00 11/14/2012 23:59:59 CLS Outpatient [id number] 09/19/2012 13:31:00 09/19/2012 23:59:59 CLS Outpatient [id number] 08/22/2012 15:17:00 08/22/2012 23:59:59 CLS Outpatient [id number] 08/04/2012 14:36:00 08/04/2012 23:59:59 CLS Outpatient [id number] 07/20/2012 12:07:00 07/20/2012 13:45:00 DIS Emergency CURTIS LEDESMA, FRANCISCO Montes [facility] ER FELL INJ L ARM [id number] 03/16/2014 10:56:00 Document Registration [id number] 03/04/2012 10:23:00 Document Registration [id number] 01/13/2013 16:48:57 ACT Document Registration [id number] 04/08/2017 14:00:00 04/08/2017 23:59:59 CLS [facility]
== END 2017-09-13 11:45 | disposition home or self-care (01) ==
LOC: EDUNIT# 11:11 → ER 11:13
DX: F10.229 Alcohol dependence with intoxication, unspecified (principal); G47.30 Sleep apnea, unspecified; J44.9 Chronic obstructive pulmonary disease, unspecified; F41.9 Anxiety disorder, unspecified; F31.9 Bipolar disorder, unspecified; Z91.5 Personal history of self-harm; Z79.82 Long term (current) use of aspirin; Z77.22 Contact with and (suspected) exposure to environmental tobacco smoke (acute) (chronic); Z80.8 Family history of malignant neoplasm of other organs or systems; Z87.448 Personal history of other diseases of urinary system
CPT/HCPCS: 99283

== ENCOUNTER 2017-09-13 18:49 | Emergency (ER) | payer MEDICAID | END 2017-09-13 19:43 | disposition left against medical advice (07) | LOC: EDUNIT# 18:49 → ER 18:51 | DX: R06.02 Shortness of breath (principal) ==

== ENCOUNTER 2017-10-10 12:16 | Emergency (ER) | payer MEDICAID ==
[~2017-10-10] VITALS: Ht 154.9 cm; Wt 52.4 kg
[~2017-10-10 12:16] MED LIST changes: +HYDR-4226 PO; -HYDR-757 PO
--- OUTSIDE RECORDS SUMMARY | 2017-10-10 12:26 | XMS REPORT | Continuity of Care Document ---
Author Author [facility] Address Unknown Phone Unavailable Allergies Active Description Code Type Severity Reaction Onset Reported/Identified Relationship to Patient Clinical Status Yes No Known Drug Allergies [id number] Drug Allergy Unknown N/A 07/20/2012 Medications There [...] MD 465.9 Upper Respiratory Infection 04/01/2010 DWIGHT ORNAMENTAL METALWORK DESIGNER, APRIL A 305.1 NONDEPENDENT TOBACCO USE DISORDER 04/01/2010 DWIGHT ORNAMENTAL METALWORK DESIGNER, APRIL A 465.9 Upper Respiratory Infection 04/01/2010 DWIGHT ORNAMENTAL METALWORK DESIGNER, APRIL A 305.1 NONDEPENDENT TOBACCO USE DISORDER 04/01/2010 DWIGHT ORNAMENTAL METALWORK DESIGNER, APRIL A 465.9 Upper Respiratory Infection 04/01/2010 [...] ADDIS A 465.9 Upper Respiratory Infection 04/01/2010 HUAM LOZOYA MD 305.1 NONDEPENDENT TOBACCO USE DISORDER [...] TUNNEL SYNDROME 05/14/2010 HUMA LOZOYA MD V72.31 Associate Director Exam, Routine 05/14/2010 BALDERRAMA DO, BERRY K 354.0 CARPAL TUNNEL SYNDROME 05/14/2010 BALDERRAMA DO BERRY K V72.31 Associate Director Exam, Routine 05/14/2010 BALDERRAMA DO, BERRY K 354.0 CARPAL TUNNEL SYNDROME 05/14/2010 BALDERRAMA DO, BERRY K V72.31 Associate Director Exam, Routine 05/14/2010 DEVORA PINEDO, HUMA 354.0 CARPAL TUNNEL SYNDROME 05/14/2010 DEVORA PINEDO, HUMA V72.31 Associate Director Exam, Routine 05/14/2010 354.0 CARPAL TUNNEL SYNDROME 05/14/2010 V72.31 Associate Director Exam, Routine 05/14/2010 DEVORA PINEDO, HUMA 354.0 CARPAL TUNNEL SYNDROME 05/14/2010 DEVORA PINEDO, HUMA V72.31 Associate Director Exam, Routine 05/14/2010 DEVORA PINEDO, HUMA 354.0 CARPAL TUNNEL SYNDROME 05/14/2010 DEVORA PINEDO, HUMA V72.31 Associate Director Exam, Routine 05/14/2010 DEVORA PINEDO, HUMA 354.0 CARPAL TUNNEL SYNDROME 05/14/2010 HUMA LOZOYA MD V72.31 Associate Director Exam, Routine 05/14/2010 DEVORA PINEDO, HUMA 354.0 CARPAL TUNNEL SYNDROME 05/14/2010 HUMA LOZOYA MD V72.31 Associate Director Exam, Routine 05/14/2010 HUMA LOZOYA MD 354.0 CARPAL TUNNEL SYNDROME 05/14/2010 HUMA LOZOYA MD V72.31 Associate Director Exam, Routine 05/14/2010 DWIGHT FAIRCHILD, APRIL A 354.0 CARPAL TUNNEL SYNDROME 05/14/2010 APRIL QUINTANILLA APRN A V72.31 Associate Director Exam, Routine 05/14/2010 DWIGHT FAIRCHILD, APRIL A 354.0 CARPAL TUNNEL SYNDROME 05/14/2010 APRIL QUINTANILLA APRN A V72.31 Associate Director Exam, Routine 05/14/2010 BALDERRAMA DO, BERRY K 354.0 CARPAL TUNNEL SYNDROME 05/14/2010 BALDERRAMA DO, BERRY K V72.31 Associate Director Exam, Routine 05/14/2010 BALDERRAMA DO, BERRY K 354.0 CARPAL TUNNEL SYNDROME 05/14/2010 BALDERRAMA DO, BERRY K V72.31 Associate Director Exam, Routine 05/14/2010 DEVORA PINEDO, HUMA 354.0 CARPAL TUNNEL SYNDROME 05/14/2010 HUMA LOZOYA MD V72.31 Associate Director Exam, Routine 05/14/2010 DEVORA PINEDO, HUMA 354.0 CARPAL TUNNEL SYNDROME 05/14/2010 HUMA LOZOYA MD V72.31 Associate Director Exam, Routine 05/14/2010 ADDIS SPRINGER APRN 354.0 CARPAL TUNNEL SYNDROME 05/14/2010 ADDIS SPRINGER APRN A V72.31 Associate Director Exam, Routine 05/14/2010 HUMA LOZOYA MD 354.0 CARPAL TUNNEL SYNDROME 05/14/2010 HUMA LOZOYA MD V72.31 Associate Director Exam, Routine 05/14/2010 HUMA LOZOYA MD 354.0 CARPAL TUNNEL SYNDROME 05/14/2010 HUMA LOZOYA MD V72.31 Associate Director Exam, Routine 05/14/2010 354.0 CARPAL TUNNEL SYNDROME 05/14/2010 V72.31 Associate Director Exam, Routine 05/14/2010 HUMA LOZOYA MD 354.0 CARPAL TUNNEL SYNDROME 05/14/2010 HUMA LOZOYA MD V72.31 Associate Director Exam, Routine 06/09/2010 HUMA LOZOYA MD 381.81 [...] 08/12/2010 782.3 Edema 08/12/2010 786.02 Orthopnea 08/12/2010 HUAM LOZOYA MD 303.03 Acute Alcoholic Intoxication In [...] SPIDERS CAUSING POISONING AND TOXIC REACTIONS 10/02/2011 HUAM LOZOYA MD E905.1 VENOMOUS SPIDERS CAUSING POISONING [...] IN JOINT INVOLVING SHOULDER REGION 12/19/2012 HUMA OLZOYA MD 71Olivia.41 PAIN IN JOINT INVOLVING SHOULDER [...] DO, BERRY K Ot 784.0 HEADACHE 10/03/2013 BRERY BALDERRAMA DO Ot V03.82 PROPHYLACTIC VACC AGAINST [...] LOZOYA MD Ot V76.12 03/16/2014 APRIL QUINTANILLA ORNAMENTAL METALWORK DESIGNER Ot 733.90 03/16/2014 APRIL QUINTANILLA A ORNAMENTAL METALWORK DESIGNER Ot V65.42 03/16/2014 DWIGHT APRIL A ORNAMENTAL METALWORK DESIGNER Ot V65.49 03/16/2014 DWIGHT APRIL A ORNAMENTAL METALWORK DESIGNER Ot V76.12 03/16/2014 DWIGHT APRIL A ORNAMENTAL METALWORK DESIGNER Ot V76.51 03/16/2014 DWIGHT, APRIL A ORNAMENTAL METALWORK DESIGNER Ot V82.81 03/19/2014 HUMA LOZOYA MD V76.10 [...] MAMMO-MALIGN NEOPLASM OF ETIENNE 03/03/2016 APRIL QUINTANILLA ORNAMENTAL METALWORK DESIGNER Ot 733.90 BONE CARTILAGE DIS NOS 03/03/2016 APRIL QUINTANILLA ORNAMENTAL METALWORK DESIGNER Ot V65.42 COUNSELING ON SUBSTANCE USE AND ABUSE 03/03/2016 APRIL QUINTANILLA ORNAMENTAL METALWORK DESIGNER Ot V65.49 OTHER SPECIFIED COUNSELING 03/03/2016 APRIL QUINTANILLA ORNAMENTAL METALWORK DESIGNER Ot V76.12 OTH SCREEN MAMMO-MALIGN NEOPLASM OF ETIENNE 03/03/2016 APRIL QUINTANILLA ORNAMENTAL METALWORK DESIGNER Ot V76.51 SCREEN MAL NEOP-COLON 03/03/2016 APRIL QUINTANILLA ORNAMENTAL METALWORK DESIGNER Ot V82.81 SCREENING FOR OSTEOPOROSIS 03/03/2016 Ot V76.12 OTH SCREEN MAMMO-MALIGN NEOPLASM OF ETIENNE 03/03/2016 HUMA LOZOYA MD Ot V76.12 OTH SCREEN MAMMO-MALIGN NEOPLASM OF ETIENNE 03/03/2016 APRIL QUINTANILLA ORNAMENTAL METALWORK DESIGNER Ot 733.90 BONE CARTILAGE DIS NOS 03/03/2016 APRIL QUINTANILLA ORNAMENTAL METALWORK DESIGNER Ot V65.42 COUNSELING ON SUBSTANCE USE AND ABUSE 03/03/2016 APRIL QUINTANILLA ORNAMENTAL METALWORK DESIGNER Ot V65.49 OTHER SPECIFIED COUNSELING 03/03/2016 APRIL QUINTANILLA ORNAMENTAL METALWORK DESIGNER Ot V76.12 OTH SCREEN MAMMO-MALIGN NEOPLASM OF ETIENNE 03/03/2016 APRIL QUINTANILLA ORNAMENTAL METALWORK DESIGNER Ot V76.51 SCREEN MAL NEOP-COLON 03/03/2016 APRIL QUINTANILLA ORNAMENTAL METALWORK DESIGNER Ot V82.81 SCREENING FOR OSTEOPOROSIS 03/04/2016 LI LOPEZ APRN Ot J44.9 CHRONIC OBSTRUCTIVE PULMONARY DISEASE, U 03/04/2016 LI LOPEZ APRN Ot S82.401A UNSP FRACTURE OF SHAFT OF RIGHT FIBULA, 03/04/2016 LI LOPEZ APRN Ot S99.911A UNSPECIFIED INJURY OF RIGHT ANKLE, INITI 03/04/2016 LI LOPEZ APRN Ot X58.XXXA EXPOSURE TO OTHER SPECIFIED FACTORS, INI 03/04/2016 LI LOPEZ APRN Ot Y92.[address] IN [facility] NON-INSTITUT (PRIVATE 03/04/2016 LI LOPEZ APRN Ot Y99.8 OTHER EXTERNAL CAUSE STATUS 03/04/2016 LI LOPEZ APRN Ot Z79.82 DRIER OPERATOR HEAD (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 OF ASPIRIN 03/04/2016 LI LOPEZ [...] LOPEZ APRN Ot Y92.[address] IN [facility] NON-INSTITUT (PRIVATE 03/05/2016 LI LOPEZ APRN Ot Y99.8 OTHER EXTERNAL CAUSE STATUS 03/05/2016 LI LOPEZ APRN Ot Z79.82 SHELTER (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 OF ASPIRIN 03/05/2016 LI LOPEZ APRN Ot Z79.899 OTHER DRIER OPERATOR HEAD (CURRENT) DRUG THERAPY 07/11/2016 MELISSA GARCIA Ot F10.129 ALCOHOL ABUSE WITH INTOXICATION, UNSPECI 07/11/2016 MELISSA GARCIA Ot F17.210 NICOTINE DEPENDENCE, CIGARETTES, UNCOMPL 07/11/2016 MELISSA GARCIA Ot J44.9 CHRONIC OBSTRUCTIVE PULMONARY DISEASE, U 07/11/2016 MELISSA GARCIA Ot Y90.6 BLOOD ALCOHOL LEVEL OF 120-199 MG/100 ML 07/11/2016 MELISSA GARCIA Ot Z79.82 DRIER OPERATOR HEAD (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 OF ASPIRIN 07/11/2016 MELISSA GARCIA Ot Z79.899 OTHER DRIER OPERATOR HEAD (CURRENT) DRUG THERAPY 04/06/2017 MALIA JOLLY MD [...] R 04/08/2017 MALIA JOLLY MD Ot Z79.82 DRIER OPERATOR HEAD (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 OF ASPIRIN 04/08/2017 MALIA JOLLY [...] FACTORS, INI 04/08/2017 MELISSA GARCIA Ot Z79.82 DRIER OPERATOR HEAD (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 OF ASPIRIN 04/08/2017 MELISSA GARCIA Ot Z80.8 FAMILY HISTORY OF MALIGNANT NEOPLASM OF 04/08/2017 MELISSA GARCIA Ot Z91.5 PERSONAL HISTORY OF SELF-HARM 05/11/2017 MELISSA GARCIA Ot R06.02 SHORTNESS OF BREATH 05/18/2017 MELISSA GARCIA Ot R06.02 SHORTNESS OF BREATH 05/18/2017 MELISAS GARCIA Ot R06.02 SHORTNESS OF BREATH 05/19/2017 Ot V76.12 OTH SCREEN MAMMO-MALIGN NEOPLASM OF ETIENNE 05/19/2017 HUMA LOZOYA MD Ot V76.12 OTH SCREEN MAMMO-MALIGN NEOPLASM OF ETIENNE 05/19/2017 DWIGHT, APRIL A ORNAMENTAL METALWORK DESIGNER Ot 733.90 BONE CARTILAGE DIS NOS 05/19/2017 DWIGHT, APRIL A ORNAMENTAL METALWORK DESIGNER Ot V65.42 COUNSELING ON SUBSTANCE USE AND ABUSE 05/19/2017 DWIGHT, APRIL A ORNAMENTAL METALWORK DESIGNER Ot V65.49 OTHER SPECIFIED COUNSELING 05/19/2017 DWIGHT, APRIL A ORNAMENTAL METALWORK DESIGNER Ot V76.12 OTH SCREEN MAMMO-MALIGN NEOPLASM OF ETIENNE 05/19/2017 DWIGHT, APRIL A ORNAMENTAL METALWORK DESIGNER Ot V76.51 SCREEN MAL NEOP-COLON 05/19/2017 DWIGHT, APRIL A ORNAMENTAL METALWORK DESIGNER Ot V82.81 SCREENING FOR OSTEOPOROSIS 05/19/2017 MELISSA GARCIA Ot R06.02 SHORTNESS OF BREATH 05/19/2017 Ot V76.12 OTH SCREEN MAMMO-MALIGN NEOPLASM OF ETIENNE 05/19/2017 HUMA LOZOYA MD Ot V76.12 OTH SCREEN MAMMO-MALIGN NEOPLASM OF ETIENNE 05/19/2017 DWIGHT, APRIL A ORNAMENTAL METALWORK DESIGNER Ot 733.90 BONE CARTILAGE DIS NOS 05/19/2017 DWIGHT, APRIL A ORNAMENTAL METALWORK DESIGNER Ot V65.42 COUNSELING ON SUBSTANCE USE AND ABUSE 05/19/2017 DWIGHT, APRIL A ORNAMENTAL METALWORK DESIGNER Ot V65.49 OTHER SPECIFIED COUNSELING 05/19/2017 DWIGHT, APRIL A ORNAMENTAL METALWORK DESIGNER Ot V76.12 OTH SCREEN MAMMO-MALIGN NEOPLASM OF ETIENNE 05/19/2017 DWIGHT, APRIL A ORNAMENTAL METALWORK DESIGNER Ot V76.51 SCREEN MAL NEOP-COLON 05/19/2017 DWIGHT, APRIL A ORNAMENTAL METALWORK DESIGNER Ot V82.81 SCREENING FOR OSTEOPOROSIS 05/19/2017 MELISSA GARCIA Ot R06.02 SHORTNESS OF BREATH 05/20/2017 Ot V76.12 OTH SCREEN MAMMO-MALIGN NEOPLASM OF ETIENNE 05/20/2017 DEVORA PINEDO, HUMA Sparks Ot V76.12 OTH SCREEN MAMMO-MALIGN NEOPLASM OF ETIENNE 05/20/2017 APRIL QUINTANILLA ORNAMENTAL METALWORK DESIGNER Ot 733.90 BONE CARTILAGE DIS NOS 05/20/2017 DWIGHTJIAPRIL Jp ORNAMENTAL METALWORK DESIGNER Ot V65.42 COUNSELING ON SUBSTANCE USE AND ABUSE 05/20/2017 DWIGHTJIAPRIL A ORNAMENTAL METALWORK DESIGNER Ot V65.49 OTHER SPECIFIED COUNSELING 05/20/2017 DWIGHTJIAPRIL Jp ORNAMENTAL METALWORK DESIGNER Ot V76.12 OTH SCREEN MAMMO-MALIGN NEOPLASM OF ETIENNE 05/20/2017 DWIGHTJIAPRIL Jp ORNAMENTAL METALWORK DESIGNER Ot V76.51 SCREEN MAL NEOP-COLON 05/20/2017 DWIGHT, APRIL A ORNAMENTAL METALWORK DESIGNER Ot V82.81 SCREENING FOR OSTEOPOROSIS 05/21/2017 HONEY [...] BREATH 05/21/2017 LI LOPEZ APRN Ot Z79.82 DRIER OPERATOR HEAD (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 OF ASPIRIN 05/21/2017 LI LOPEZ APRN Ot Z80.8 FAMILY HISTORY OF MALIGNANT NEOPLASM OF 05/21/2017 LI LOPEZ APRN Ot Z87.448 PERSONAL HISTORY OF OTHER DISEASES OF UR 05/21/2017 LOPEZ, PETER J ORNAMENTAL METALWORK DESIGNER Ot Z91.5 PERSONAL HISTORY OF SELF-HARM 05/24/2017 [...] BREATH 05/24/2017 LI LOPEZ APRN Ot Z79.82 DRIER OPERATOR HEAD (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 OF ASPIRIN 05/24/2017 LI LOPEZ APRN Ot Z80.8 FAMILY HISTORY OF MALIGNANT NEOPLASM OF 05/24/2017 LI LOPEZ APRN Ot Z87.448 PERSONAL HISTORY OF OTHER DISEASES OF UR 05/24/2017 LI LOPEZ APRN Ot Z91.5 PERSONAL HISTORY OF SELF-HARM 05/29/2017 SHAHANA ROSENTHALP Ot F10.129 ALCOHOL ABUSE WITH INTOXICATION, UNSPECI 05/29/2017 ARIADNA SHAHANA BOTTLING SUPERVISOR Ot F12.90 CANNABIS USE, UNSPECIFIED, UNCOMPLICATED 05/29/2017 ARIADNA SHAHANA BOTTLING SUPERVISOR Ot F31.9 BIPOLAR DISORDER, UNSPECIFIED 05/29/2017 ARIADNA SHAHANA BOTTLING SUPERVISOR Ot F41.9 ANXIETY DISORDER, UNSPECIFIED 05/29/2017 ARIADNA SHAHANA BOTTLING SUPERVISOR Ot G47.30 SLEEP APNEA, UNSPECIFIED 05/29/2017 SHAHANA ROSENTHAL BOTTLING SUPERVISOR Ot G47.9 SLEEP DISORDER, UNSPECIFIED 05/29/2017 ARIADNA SHAHANA BOTTLING SUPERVISOR Ot J44.9 CHRONIC OBSTRUCTIVE PULMONARY DISEASE, U 05/29/2017 SHAHANA ROSENTHAL BOTTLING SUPERVISOR Ot R06.02 SHORTNESS OF BREATH 05/29/2017 SHAHANA ROSENTHAL BOTTLING SUPERVISOR Ot Z77.22 CNTCT W AND EXPSR TO ENVIRON TOBACCO SMO 05/29/2017 SHAHANA ROSENTHAL BOTTLING SUPERVISOR Ot Z79.82 DRIER OPERATOR HEAD (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 OF ASPIRIN 05/29/2017 SHAHANA ROSENTHAL BOTTLING SUPERVISOR Ot Z87.81 PERSONAL HISTORY OF (HEALED) TRAUMATIC F 05/29/2017 SHAHANA ROSENTHAL BOTTLING SUPERVISOR Ot Z91.5 PERSONAL HISTORY OF SELF-HARM 06/08/2017 [...] DISEASE, U 06/08/2017 MELISSA GARCIA Ot Z79.82 DRIER OPERATOR HEAD (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 OF ASPIRIN 06/08/2017 MELISSA GARCIA [...] DISEASE, U 06/10/2017 MELISSA GARCIA Ot Z79.82 DRIER OPERATOR HEAD (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 OF ASPIRIN 06/10/2017 MELISSA GARCIA Ot Z80.8 FAMILY HISTORY OF MALIGNANT NEOPLASM OF 06/10/2017 MELISSA GARCIA Ot Z91.5 PERSONAL HISTORY OF SELF-HARM 08/19/2017 LI LOPEZ APRN Ot F10.229 ALCOHOL DEPENDENCE WITH INTOXICATION, UN 08/19/2017 LI LOPEZ APRN Ot F12.10 CANNABIS ABUSE, UNCOMPLICATED 08/19/2017 LI LOPEZ APRN Ot F31.9 BIPOLAR DISORDER, UNSPECIFIED 08/19/2017 LI LOPEZ APRN Ot F41.9 ANXIETY DISORDER, UNSPECIFIED 08/19/2017 LI LOPEZ APRN Ot G47.30 SLEEP APNEA, UNSPECIFIED 08/19/2017 LI LOPEZ APRN Ot J44.9 CHRONIC OBSTRUCTIVE PULMONARY DISEASE, U 08/19/2017 LI LOPEZ APRN Ot R06.02 SHORTNESS OF BREATH 08/19/2017 LI LOPEZ APRN Ot Z77.22 CNTCT W AND EXPSR TO ENVIRON TOBACCO SMO 08/19/2017 LI LOPEZ APRN Ot Z79.82 DRIER OPERATOR HEAD (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 OF ASPIRIN 08/19/2017 LI LOPEZ APRN Ot Z80.8 FAMILY HISTORY OF MALIGNANT NEOPLASM OF 08/19/2017 LI LOPEZ APRN Ot Z91.5 PERSONAL HISTORY OF SELF-HARM 08/23/2017 [...] SMO 08/23/2017 LI LOPEZ APRN Ot Z79.82 DRIER OPERATOR HEAD (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 OF ASPIRIN 08/23/2017 LI LOPEZ APRN Ot Z80.8 FAMILY HISTORY OF MALIGNANT NEOPLASM OF 08/23/2017 LOPEZ, PETER J ORNAMENTAL METALWORK DESIGNER Ot Z91.5 PERSONAL HISTORY OF SELF-HARM 09/13/2017 Ot F10.129 ALCOHOL ABUSE WITH INTOXICATION, UNSPECI 09/13/2017 Ot F10.229 ALCOHOL DEPENDENCE WITH INTOXICATION, UN 09/13/2017 Ot F31.9 BIPOLAR DISORDER, UNSPECIFIED 09/13/2017 Ot F41.9 ANXIETY DISORDER, UNSPECIFIED 09/13/2017 Ot G47.30 SLEEP APNEA , UNSPECIFIED 09/13/2017 Ot J44.9 CHRONIC OBSTRUCTIVE PULMONARY DISEASE, U 09/13/2017 Ot Z77.22 CNTCT W AND EXPSR TO ENVIRON TOBACCO SMO 09/13/2017 Ot Z79.82 DRIER OPERATOR HEAD ( 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 OF ASPIRIN 09/13/2017 Ot Z80.8 FAMILY HISTORY OF MALIGNANT NEOPLASM OF 09/13/2017 Ot Z87.448 PERSONAL HISTORY OF OTHER DISEASES OF UR 09/13/2017 Ot Z91.5 PERSONAL HISTORY OF SELF-HARM Procedures Code Description Performed By Performed On [facility] 10/09/2011 81622 UA W/ CULTURE IF INDICATED 02/19/2012 42169 ROUTINE VENIPUNCTURE 02/22/2012 68527 CBC 02/22/2012 73128 LIPID PANEL 02/22/2012 28610 CMP 02/22/2012 2141128 GFR CALC (RESULT ONLY) 02/22/2012 60061 TSH 02/23/2012 34498 MAMMOGRAM, SCREENING 02/23/2012 67059 HEMOCCULT 02/23/2012 59350 PAP SMEAR 02/23/2012 Q0091 PAP SMEAR OBTAIN SMEAR 02/23/2012 26411 URINE DRUG SCREEN (IN-HOUSE ) 01/18/2013 71785 MAMMOGRAM, SCREENING 01/19/2013 URINEDRUG URINE DRUG SCREEN (CON'F ) 01/19/2013 55218 BONE DENSITY, DEXA 04/17/2013 GENERAL S Kido, Ken 04/17/2013 53576 BONE MINERAL DENSITY, HEEL US (IN HOUSE) 04/17/2013 51745 XRAY CERVICAL SPINE, 2 OR 3 VIEWS 06/02/2013 83545 ROUTINE VENIPUNCTURE 02/16/2014 31423 MAMMOGRAM, SCREENING 02/16/2014 0302059 GFR CALC (RESULT ONLY) 02/16/2014 63581 CMP 02/16/2014 Results Test Result Range Complete [...] NRG Manual blood lymphocytes/100 leukocytes 34 % [facility] Manual eosinophils/100 leukocytes in nose 1 % [facility] Manual blood basophils/100 leukocytes 0 % [facility] Blood erythrocyte morphology finding identification NORMAL [facility] Comprehensive metabolic panel - 07/11/16 16:13 [...] calculation of estimated glomerular filtration rate > [facility] Serum or plasma glucose measurement (mass/volume) 62 [...] Status Pt. Type Provider Facility Loc./Unit Complaint [id number] 02/16/2014 11:31:00 02/16/2014 23:59:59 CLS Outpatient HUMA LOZOYA MD [id number] 12/02/2013 06:43:00 12/02/2013 23:59:59 CLS Outpatient HUMA LOZOYA MD [id number] 11/27/2013 11:19:00 11/27/2013 23:59:59 CLS Outpatient HUMA LOZOYA MD [id number] 10/30/2013 12:59:00 10/30/2013 23:59:59 CLS Outpatient ADDIS SPRINGER APRN [id number] 09/18/2013 13:40:00 09/18/2013 23:59:59 CLS Outpatient HUMA LOZOYA MD [id number] 07/25/2013 16:53:00 07/25/2013 23:59:59 CLS Outpatient HUMA LOZOYA MD [id number] 06/02/2013 11:36:00 06/02/2013 23:59:59 CLS Outpatient BERRY BALDERRAMA DO [id number] 06/02/2013 11:36:00 06/02/2013 23:59:59 CLS Outpatient BERRY BALDERRAMA DO [id number] 04/17/2013 10:34:00 04/17/2013 23:59:59 CLS Outpatient APRIL QUINTANILLA APRN [id number] 04/17/2013 10:34:00 04/17/2013 23:59:59 CLS Outpatient APRIL QUINTANILLA APRN [id number] 03/02/2013 13:45:00 03/02/2013 23:59:59 CLS Outpatient HUMA LOZOYA MD [id number] 03/02/2013 13:45:00 03/02/2013 23:59:59 CLS Outpatient HUMA LOZOYA MD [id number] 01/18/2013 14:08:00 01/18/2013 23:59:59 CLS Outpatient HUMA LOZOYA MD [id number] 12/19/2012 11:31:00 12/19/2012 23:59:59 CLS Outpatient HUMA LOZOYA MD [id number] 09/29/2012 16:24:00 09/29/2012 23:59:59 CLS Outpatient HUMA LOZOYA MD [id number] 03/28/2012 11:42:00 03/28/2012 23:59:59 CLS Outpatient HUMA LOZOYA MD [id number] 02/22/2012 09:43:00 02/22/2012 23:59:59 CLS Outpatient BERRY BALDERRAMA DO Benny [id number] 02/19/2012 13:27:00 02/19/2012 23:59:59 CLS Outpatient TACOS LEDESMABERRY [id number] 10/02/2011 09:36:00 10/02/2011 23:59:59 [place] [id number] 10/02/2011 09:36:00 10/02/2011 23:59:59 CLS Outpatient [id number] 06/24/2012 13:29:00 Document Registration [id number] 08/19/2017 18:05:00 08/19/2017 18:55:00 DIS Emergency LI LOPEZ APRN [facility] ER SOB/ETOH DETOX [id number] 06/08/2017 20:29:00 06/08/2017 21:10:00 DIS Emergency MELISSA GARCIA [facility] ER SOA [id number] 05/29/2017 16:55:00 05/29/2017 18:10:00 DIS Emergency SHAHANA ROSENTHAL [facility] ER SOA [id number] 05/21/2017 21:00:00 05/21/2017 22:16:00 DIS Emergency LI LOPEZ APRN [facility] ER SOB [id number] 05/19/2017 17:05:00 05/19/2017 17:31:00 DIS Outpatient HONEY GOLDBERG MD [facility] ER SOA [id number] 05/11/2017 21:12:00 05/11/2017 21:57:00 DIS Emergency MELISSA GARCIA [facility] ER SOA [id number] 04/06/2017 18:38:00 04/06/2017 20:05:00 DIS Emergency MELISSA GARCIA [facility] ER ANKLE PAIN [id number] 04/06/2017 12:39:00 04/06/2017 15:08:00 DIS Emergency MALIA JOLLY MD [facility] ER DRUG/ETOH ABUSE [id number] 07/11/2016 16:09:00 07/11/2016 19:12:00 DIS Emergency MELISSA GARCIA [facility] ER ALCOHOL INTOX [id number] 03/03/2016 15:38:00 03/03/2016 16:45:00 DIS Emergency LI LOPEZ ORNAMENTAL METALWORK DESIGNER [facility] ER R ANKLE PAIN [id number] 05/02/2015 16:39:00 05/04/2015 13:14:00 DIS Inpatient CHINMAY PINEDO, FINESSE Trammell [facility] 4TH RLL PNUEMONIA [id number] 11/19/2013 22:15:00 11/20/2013 10:50:00 DIS Inpatient YANN PINEDO, DANICA Tanner [facility] ICU ETOH INTOXICATION, AMS [id number] 10/02/2013 15:43:00 10/03/2013 14:03:00 DIS Inpatient BERRY BALDERRAMA DO [facility] ICU SUICIDAL/HOMICIDAL IDEATION, ETOH INTOXICATION [id number] 04/27/2013 09:25:00 04/27/2013 23:59:59 CLS Outpatient APRIL QUINTANILLA ORNAMENTAL METALWORK DESIGNER [facility] RAD OSTEOPENIA [id number] 03/06/2013 10:54:00 03/06/2013 23:59:59 CLS Outpatient DEVORA PINEDO, HUMA Sparks [facility] RAD SCREENING [id number] 11/14/2012 15:16:00 11/14/2012 23:59:59 CLS Outpatient [id number] 09/19/2012 13:31:00 09/19/2012 23:59:59 CLS Outpatient [id number] 08/22/2012 15:17:00 08/22/2012 23:59:59 CLS Outpatient [id number] 08/04/2012 14:36:00 08/04/2012 23:59:59 CLS Outpatient [id number] 07/20/2012 12:07:00 07/20/2012 13:45:00 DIS Emergency CURTIS LEDESMA, FRANCISCO Montes [facility] ER FELL INJ L ARM [id number] 09/13/2017 11:13:00 Document Registration [id number] 03/16/2014 10:56:00 Document Registration [id number] 03/04/2012 10:23:00 Document Registration [id number] 01/13/2013 16:48:57 ACT Document Registration [id number] 04/08/2017 14:00:00 04/08/2017 23:59:59 CLS Outpatient DEVORA PINEDO[facility]
[2017-10-10 12:36] LABS: BILIRUBIN,URINE NEGATIVE (NEGATIVE); CLARITY,URINE CLEAR; COLOR,URINE YELLOW; GLUCOSE, URINE (UA) NEGATIVE (NEGATIVE); KETONES,URINE NEGATIVE (NEGATIVE); LEUKOCYTE ESTERASE ,URINE NEGATIVE (NEGATIVE); NITRITE,URINE NEGATIVE (NEGATIVE); PH,URINE 7 (5-9); PROTEIN,URINE NEGATIVE (NEGATIVE); UROBILINOGEN,URINE NORMAL (NORMAL)
[2017-10-10 12:37] LABS: BASOPHILS # (AUTO) 0.1 10^3/uL (0.0-0.1); BASOPHILS % (AUTO) 1 % (0-10); EOSINOPHILS # (AUTO) 0.1 10^3/uL (0.0-0.3); EOSINOPHILS % (AUTO) 1 % (0-10); HEMATOCRIT 42 % (35-52); HEMOGLOBIN 14.6 G/DL (11.5-16.0); LYMPHOCYTES # (AUTO) 3.7 X 10^3 (1.0-4.0); LYMPHOCYTES % (AUTO) 36 % (12-44); MEAN CORPUSCULAR HEMOGLOBIN 35 PG (25-34); MEAN CORPUSCULAR HGB CONC 35 G/DL (32-36); MEAN CORPUSCULAR VOLUME 100 FL (80-99); MEAN PLATELET VOLUME 9.6 FL (7.4-10.4); MONOCYTES # (AUTO) 1.1 X 10^3 (0.0-1.0); MONOCYTES % (AUTO) 10 % (0-12); NEUTROPHILS # (AUTO) 5.5 X 10^3 (1.8-7.8); NEUTROPHILS % (AUTO) 53 % (42-75); PLATELET COUNT 276 10^3/uL (130-400); RED CELL DISTRIBUTION WIDTH 12.7 % (10.0-14.5); WHITE BLOOD COUNT 10.4 10^3/uL (4.3-11.0)
[2017-10-10] MEDS ORDERED: NS IV 1000 ML 1,000 ML IV SCH (12:45)
[2017-10-10 12:50] LABS: BACTERIA,URINE NEGATIVE /HPF
[2017-10-10 13:04] LABS: ALANINE AMINOTRANSFERASE 13 U/L (0-55); ALBUMIN 4.6 GM/DL (3.2-4.5); ALKALINE PHOSPHATASE 77 U/L (40-136); BILIRUBIN,TOTAL 0.3 MG/DL (0.1-1.0); BUN/CREATININE RATIO 18; CARBON DIOXIDE 23 MMOL/L (21-32); CHLORIDE 101 MMOL/L (98-107); CREATININE SERUM 0.57 MG/DL (0.60-1.30); GFR ESTIMATED > 60; GLUCOSE 89 MG/DL (70-105); POTASSIUM 3.7 MMOL/L (3.6-5.0); SODIUM 134 MMOL/L (135-145); TOTAL PROTEIN 7.2 GM/DL (6.4-8.2)
--- NOTE | 2017-10-10 13:58 | ED Psychosocial ---
General Chief Complaint: Substance Abuse Stated Complaint: SOB/ETOH Source: patient Exam Limitations: no limitations, intoxication History of Present Illness Date Seen by Provider: Oct 10, 2017 Time Seen by Provider: 12:17 Initial Comments Patient is a 62-year-old female who was brought to the emergency room by [facility] with complaints of alcohol intoxication. She reports that she was going to be taken to [facility] today by the [facility] police so she decided to come to the emergency room instead. She has had numerous visits for similar complaints. She is alert, oriented, ambulating without difficulty on arrival to the emergency room. EMS reports that she told the police that she was short of breath. On arrival to ED she has not complaints of shortness of breath. But is requesting that she is fed. Timing/Duration: this morning Associated Symptoms: denies symptoms Allergies and Home Medications Allergies Coded Allergies: No Known Drug Allergies (Unverified , 07/20/12) Home Medications Aspirin 81 Mg Tablet.dr, 81 MG PO DAILY, (Reported) Buspirone HCl 10 Mg Tablet, 10 MG PO BID, (Reported) Cefpodoxime Proxetil 200 Mg Tablet, 200 MG PO BID Prescribed by: FINESSE DESAI on 05/04/15 1211 Diclofenac Sodium 75 Mg Tablet.dr, 75 MG PO BID, (Reported) Furosemide 40 Mg Tablet, 40 MG PO DAILY, (Reported) Gabapentin 300 Mg Capsule, 300 MG PO TID, (Reported) Hydrocodone/Acetaminophen 1 Each Tablet, 1 EACH PO Q4H PRN for PAIN Prescribed by: LI LOPEZ on 03/03/16 1620 Levomilnacipran Hydrochloride 80 Mg Cap.sa.24h, 80 MG PO DAILY, (Reported) Loratadine 10 Mg Tablet, 10 MG PO DAILY, (Reported) Lorazepam 0.5 Mg Tablet, 0.5 MG PO DAILY PRN for ANXIETY, (Reported) Multivitamin 1 Each Tablet, 1 TAB PO DAILY, (Reported) Potassium Chloride 20 Meq Tab.er.prt, 20 MEQ PO DAILY, (Reported) Quetiapine Fumarate 100 Mg Tablet, 100 MG PO HS, (Reported) Tizanidine HCl 4 Mg Tablet, 4 MG PO TID PRN for MUSCLE SPASMS, (Reported) Patient Home Medication List Home Medication List Reviewed: Yes Review of Systems Constitutional: see HPI; No chills, No fever Psychiatric/Neurological: See HPI, Other (ETHO abuse. Reports drinking all morning. ) All Other Systems Reviewed Negative Unless Noted: Yes Past Sdwnitj-Kyeqna-Wqzsva Hx Past Med/Social Hx: Reviewed Nursing Past Med/Soc Hx Patient Social History Alcohol Beverage of Choice: Beer, Whiskey, [place] Drug of Choice: CANNIBUS Type Used: Cigarettes 2nd Hand Smoke Exposure: Yes Recent Hopitalizations: No Immunizations Up To Date Tetanus Booster (TDap): Unknown PED Vaccines UTD: No Seasonal Allergies Seasonal Allergies: No Past Medical History Surgeries: Yes (CYST ON OVARY) Respiratory: Yes Sleep Apnea, COPD Currently Using CPAP: No Currently Using BIPAP: No Cardiac: No Neurological: Yes Reproductive Disorders: No Female Reproductive Disorders: Denies Sexually Transmitted Disease: No HIV/AIDS: No Genitourinary: No Gastrointestinal: No Musculoskeletal: Yes (ANKLE FRACTURE) Arthritis, Chronic Back Pain Endocrine: No HEENT: No Cancer: No Psychosocial: Yes (alcoholism) Sleep Difficulties, Anxiety, Suicide Attempts, Bipolar, Depression Integumentary: No Blood Disorders: No Family Medical History Reviewed Nursing Family Hx Alcoholism 19 FATHER G8 BROTHER G8 BROTHER G8 BROTHER G8 SISTER G8 SISTER FH: brain cancer G8 SISTER Neoplasm 19 MOTHER No Pertinent Family Hx Physical Exam Vital Signs - First Documented 10/10/17 10/10/17 13:12 14:07 Temp 97.1 Pulse 70 Resp 20 B/P (MAP) 120/83 (95) Pulse Ox 100 Capillary Refill : Height, Weight, BMI Height: 5'1.00" Weight: 115lbs. 8.0oz. 52.035606mu; 18.11 BMI Method:Estimated General Appearance: WD/WN, no apparent distress Respiratory: chest non-tender, lungs clear, normal breath sounds, no respiratory distress, no accessory muscle use, respiratory distress Cardiovascular: normal peripheral pulses, regular rate, rhythm, no edema, no gallop, no JVD, no murmur Gastrointestinal: normal bowel sounds, non tender, soft, no organomegaly, no pulsatile mass Neurologic/Psychiatric: alert, normal mood/affect, oriented x 3, other ( intoxicated. ) Skin: normal color, warm/dry Progress/Results/Core Measures Results/Orders Lab Results My Orders Progress Progress Note : Time: 13:45 Progress Note I have seen and evaluated the patient. She accidently pulled out her IV line ambulating to the restroom. She received around 500ml of NS. She is still ambulating with out difficulty. She ordered a cheese burger and bel[place] fries and a coke form the room service menu. She verbalizes that she is ready to leave. Her gait remains normal. Mentation normal. A taxi was called for transport home. She agrees with plans for discharge, return precautions were given. Departure Impression Primary Impression: Alcohol abuse Disposition: HOME, SELF-CARE Condition: Stable/Unchanged Departure-Patient Inst. Decision time for Depature: 13:58 Referrals: HUMA LOZOYA MD (PCP/Family) Primary Care Physician Patient Instructions: ALCOHOL AND SUBSTANCE ABUSE Add. Discharge Instructions: Refrain from drinking any more alcohol. Follow up with your primary care provider within 1 week for recheck. Return back to the emergency room for any worsening symptoms or concerns as needed. Drink plenty of clear liquids like water to stay hydrated. All discharge instructions reviewed with patient and/or family. Voiced understanding. JENIFER MULLINS Oct 10, 2017 13:58
[2017-10-10 14:07] VITALS: BP 120/83
== END 2017-10-10 14:11 | disposition home or self-care (01) ==
LOC: EDUNIT# 12:16 → ER 12:17
DX: F10.20 Alcohol dependence, uncomplicated (principal); R06.02 Shortness of breath; G47.30 Sleep apnea, unspecified; J44.9 Chronic obstructive pulmonary disease, unspecified; F41.9 Anxiety disorder, unspecified; F31.9 Bipolar disorder, unspecified; Z91.5 Personal history of self-harm; Z80.8 Family history of malignant neoplasm of other organs or systems; Z79.82 Long term (current) use of aspirin; Z77.22 Contact with and (suspected) exposure to environmental tobacco smoke (acute) (chronic); Z87.448 Personal history of other diseases of urinary system
CPT/HCPCS: 36415; 80053; 80320; 81000; 85025; 96360

== ENCOUNTER 2017-10-12 15:36 | Emergency (ER) | payer MEDICAID ==
[~2017-10-12] VITALS: Ht 165.1 cm; Wt 45.4 kg
[2017-10-12 16:02] VITALS: BP 111/67
--- OUTSIDE RECORDS SUMMARY | 2017-10-12 20:58 | XMS REPORT | Continuity of Care Document ---
Author Author [facility] Address Unknown Phone Unavailable Allergies Active Description Code Type Severity Reaction Onset Reported/Identified Relationship to Patient Clinical Status Yes No Known Drug Allergies [id number] Drug Allergy Unknown N/A 07/20/2012 Medications There [...] MD 465.9 Upper Respiratory Infection 04/01/2010 DWIGHT ANGIO TECHNOLOGIST, APRIL A 305.1 NONDEPENDENT TOBACCO USE DISORDER 04/01/2010 DWIGHT ANGIO TECHNOLOGIST, APRIL A 465.9 Upper Respiratory Infection 04/01/2010 DWIGHT ANGIO TECHNOLOGIST, APRIL A 305.1 NONDEPENDENT TOBACCO USE DISORDER 04/01/2010 DWIGHT ANGIO TECHNOLOGIST, APRIL A 465.9 Upper Respiratory Infection 04/01/2010 [...] TUNNEL SYNDROME 05/14/2010 HUMA LOZOYA MD V72.31 Switch House Operator Exam, Routine 05/14/2010 BALDERRAMA DO, BERRY K 354.0 CARPAL TUNNEL SYNDROME 05/14/2010 BALDERRAMA DO BERRY K V72.31 Switch House Operator Exam, Routine 05/14/2010 BALDERRAMA DO, BERRY K 354.0 CARPAL TUNNEL SYNDROME 05/14/2010 BALDERRAMA DO, BERRY K V72.31 Switch House Operator Exam, Routine 05/14/2010 DEVORA PINEDO, HUMA 354.0 CARPAL TUNNEL SYNDROME 05/14/2010 DEVORA PINEDO, HUMA V72.31 Switch House Operator Exam, Routine 05/14/2010 354.0 CARPAL TUNNEL SYNDROME 05/14/2010 V72.31 Switch House Operator Exam, Routine 05/14/2010 DEVORA PINEDO, HUAM 354.0 CARPAL TUNNEL SYNDROME 05/14/2010 DEVORA PINEDO, HUMA V72.31 Switch House Operator Exam, Routine 05/14/2010 DEVORA PINEDO, HUMA 354.0 CARPAL TUNNEL SYNDROME 05/14/2010 DEVORA PINEDO, HUMA V72.31 Switch House Operator Exam, Routine 05/14/2010 DEVORA PINEDO, HUMA 354.0 CARPAL TUNNEL SYNDROME 05/14/2010 HUMA LOZOYA MD V72.31 Switch House Operator Exam, Routine 05/14/2010 DEVORA PINEDO, HUMA 354.0 CARPAL TUNNEL SYNDROME 05/14/2010 HUMA LOZOYA MD V72.31 Switch House Operator Exam, Routine 05/14/2010 HUMA LOZOYA MD 354.0 CARPAL TUNNEL SYNDROME 05/14/2010 HUMA LOZOYA MD V72.31 Switch House Operator Exam, Routine 05/14/2010 DWIGHT FAIRCHILD, APRIL A 354.0 CARPAL TUNNEL SYNDROME 05/14/2010 APRIL QUINTANILLA APRN A V72.31 Switch House Operator Exam, Routine 05/14/2010 DWIGHT FAIRCHILD, APRIL A 354.0 CARPAL TUNNEL SYNDROME 05/14/2010 APRIL QUINTANILLA APRN A V72.31 Switch House Operator Exam, Routine 05/14/2010 BALDERRAMA DO, BERRY K 354.0 CARPAL TUNNEL SYNDROME 05/14/2010 BALDERRAMA DO, BERRY K V72.31 Switch House Operator Exam, Routine 05/14/2010 BALDERRAMA DO, BERRY K 354.0 CARPAL TUNNEL SYNDROME 05/14/2010 BALDERRAMA DO, BERRY K V72.31 Switch House Operator Exam, Routine 05/14/2010 DEVORA PINEDO, HUMA 354.0 CARPAL TUNNEL SYNDROME 05/14/2010 HUMA LOZOYA MD V72.31 Switch House Operator Exam, Routine 05/14/2010 DEVORA PINEDO, HUMA 354.0 CARPAL TUNNEL SYNDROME 05/14/2010 HUMA LOZOYA MD V72.31 Switch House Operator Exam, Routine 05/14/2010 ADDIS SPRINGER APRN 354.0 CARPAL TUNNEL SYNDROME 05/14/2010 ADDIS SPRINGER APRN A V72.31 Switch House Operator Exam, Routine 05/14/2010 HUMA LOZOYA MD 354.0 CARPAL TUNNEL SYNDROME 05/14/2010 HUMA LOZOYA MD V72.31 Switch House Operator Exam, Routine 05/14/2010 HUMA LOZOYA MD 354.0 CARPAL TUNNEL SYNDROME 05/14/2010 HUMA LOZOYA MD V72.31 Switch House Operator Exam, Routine 05/14/2010 354.0 CARPAL TUNNEL SYNDROME 05/14/2010 V72.31 Switch House Operator Exam, Routine 05/14/2010 HUMA LOZOYA MD 354.0 CARPAL TUNNEL SYNDROME 05/14/2010 HUMA LOZOYA MD V72.31 Switch House Operator Exam, Routine 06/09/2010 HUMA LOZOYA MD 381.81 [...] A 780.79 OTHER MALAISE AND FATIGUE 05/05/2011 BERYR BALDERRAMA DO 780.79 OTHER MALAISE AND FATIGUE [...] LOZOYA MD 627.2 MENOPAUSAL SX 02/19/2012 HUMA OLZOYA MD V76.10 BREAST CANCER SCREENING 02/19/2012 HUMA [...] MD 728.85 SPASM OF MUSCLE 12/19/2012 HUMA LOZOAY MD 719.41 PAIN IN JOINT INVOLVING SHOULDER [...] OR FROM OTHER STAIRS OR STEPS 06/02/2013 ADDSI SPRINGER APRN 723.1 CERVICALGIA 06/02/2013 ADDIS SPRINGER [...] FROM OTHER STAIRS OR STEPS 09/18/2013 HUMA LOZYOA MD 466.0 ACUTE BRONCHITIS 09/18/2013 ADDIS SPRINGER [...] LOZOYA MD Ot V76.12 03/16/2014 APRIL QUINTANILLA ANGIO TECHNOLOGIST Ot 733.90 03/16/2014 APRIL QUINTANILLA A ANGIO TECHNOLOGIST Ot V65.42 03/16/2014 DWIGHT APRIL A ANGIO TECHNOLOGIST Ot V65.49 03/16/2014 DWIGHT APRIL A ANGIO TECHNOLOGIST Ot V76.12 03/16/2014 DWIGHT APRIL A ANGIO TECHNOLOGIST Ot V76.51 03/16/2014 DWIGHT, APRIL A ANGIO TECHNOLOGIST Ot V82.81 03/19/2014 HUMA LOZOYA MD V76.10 [...] STATUS 03/03/2016 LI LOPEZ APRN Ot Z79.82 SENIOR LIVING (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 OF ASPIRIN 03/03/2016 LI LOPEZ APRN Ot Z79.899 OTHER SENIOR LIVING (CURRENT) DRUG THERAPY 03/03/2016 Ot V76.12 OTH SCREEN MAMMO-MALIGN NEOPLASM OF ETIENNE 03/03/2016 DEVORA PINEDO, HUMA Sparks Ot V76.12 OTH SCREEN MAMMO-MALIGN NEOPLASM OF ETIENNE 03/03/2016 APRIL QUINTANILLA ANGIO TECHNOLOGIST Ot 733.90 BONE CARTILAGE DIS NOS 03/03/2016 APRIL QUINTANILLA ANGIO TECHNOLOGIST Ot V65.42 COUNSELING ON SUBSTANCE USE AND ABUSE 03/03/2016 APRIL QUINTANILLA ANGIO TECHNOLOGIST Ot V65.49 OTHER SPECIFIED COUNSELING 03/03/2016 APRIL QUINTANILLA ANGIO TECHNOLOGIST Ot V76.12 OTH SCREEN MAMMO-MALIGN NEOPLASM OF ETIENNE 03/03/2016 APRIL QUINTANILLA ANGIO TECHNOLOGIST Ot V76.51 SCREEN MAL NEOP-COLON 03/03/2016 APRIL QUINTANILLA ANGIO TECHNOLOGIST Ot V82.81 SCREENING FOR OSTEOPOROSIS 03/03/2016 Ot V76.12 OTH SCREEN MAMMO-MALIGN NEOPLASM OF ETIENNE 03/03/2016 HUMA LOZOYA MD Ot V76.12 OTH SCREEN MAMMO-MALIGN NEOPLASM OF ETIENNE 03/03/2016 APRIL QUINTANILLA ANGIO TECHNOLOGIST Ot 733.90 BONE CARTILAGE DIS NOS 03/03/2016 APRIL QUINTANILLA ANGIO TECHNOLOGIST Ot V65.42 COUNSELING ON SUBSTANCE USE AND ABUSE 03/03/2016 APRIL QUINTANILLA ANGIO TECHNOLOGIST Ot V65.49 OTHER SPECIFIED COUNSELING 03/03/2016 APRIL QUINTANILLA ANGIO TECHNOLOGIST Ot V76.12 OTH SCREEN MAMMO-MALIGN NEOPLASM OF ETIENNE 03/03/2016 APRIL QUINTANILLA ANGIO TECHNOLOGIST Ot V76.51 SCREEN MAL NEOP-COLON 03/03/2016 APRIL QUINTANILLA ANGIO TECHNOLOGIST Ot V82.81 SCREENING FOR OSTEOPOROSIS 03/04/2016 LI LOPEZ APRN Ot J44.9 CHRONIC OBSTRUCTIVE PULMONARY DISEASE, U 03/04/2016 LI LOPEZ APRN Ot S82.401A UNSP FRACTURE OF SHAFT OF RIGHT FIBULA, 03/04/2016 LI LOPEZ APRN Ot S99.911A UNSPECIFIED INJURY OF RIGHT ANKLE, INITI 03/04/2016 LI LOPEZ APRN Ot X58.XXXA EXPOSURE TO OTHER SPECIFIED FACTORS, INI 03/04/2016 LI LOPEZ APRN Ot Y92.[address] IN [facility] NON-INSTITUT (PRIVATE 03/04/2016 LI LOPEZ APRN Ot Y99.8 OTHER EXTERNAL CAUSE STATUS 03/04/2016 LI LOPEZ APRN Ot Z79.82 ART HISTORIAN (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 OF ASPIRIN 03/04/2016 LI LOPEZ APRN Ot Z79.899 OTHER SENIOR LIVING (CURRENT) DRUG THERAPY 03/05/2016 LI LOPEZ APRN Ot J44.9 CHRONIC OBSTRUCTIVE PULMONARY DISEASE, U 03/05/2016 LI LOPEZ APRN Ot S82.401A UNSP FRACTURE OF SHAFT OF RIGHT FIBULA, 03/05/2016 LI LOPEZ APRN Ot S99.911A UNSPECIFIED INJURY OF RIGHT ANKLE, INITI 03/05/2016 LI LOPEZ APRN Ot X58.XXXA EXPOSURE TO OTHER SPECIFIED FACTORS, INI 03/05/2016 LI LOPEZ APRN Ot Y92.[address] IN [facility] NON-INSTITUT (PRIVATE 03/05/2016 LI LOPEZ APRN Ot Y99.8 OTHER EXTERNAL CAUSE STATUS 03/05/2016 LI LOPEZ APRN Ot Z79.82 SENIOR LIVING (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 OF ASPIRIN 03/05/2016 LI LOPEZ APRN Ot Z79.899 OTHER ART HISTORIAN (CURRENT) DRUG THERAPY 07/11/2016 MELISSA GARCIA Ot F10.129 ALCOHOL ABUSE WITH INTOXICATION, UNSPECI 07/11/2016 MELISSA GARCIA Ot F17.210 NICOTINE DEPENDENCE, CIGARETTES, UNCOMPL 07/11/2016 MELISSA GARCIA Ot J44.9 CHRONIC OBSTRUCTIVE PULMONARY DISEASE, U 07/11/2016 MELISSA GARCIA Ot Y90.6 BLOOD ALCOHOL LEVEL OF 120-199 MG/100 ML 07/11/2016 MELISSA GARCIA Ot Z79.82 ART HISTORIAN (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 OF ASPIRIN 07/11/2016 MELISSA GARCIA Ot Z79.899 OTHER ART HISTORIAN (CURRENT) DRUG THERAPY 04/06/2017 MALIA JOLLY MD [...] R 04/06/2017 MALIA JOLLY MD Ot Z79.82 SENIOR LIVING (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 OF ASPIRIN 04/06/2017 MALIA JOLLY [...] EXPOSURE TO OTHER SPECIFIED FACTORS, INI 04/06/2017 EMLISSA GARCIA Ot Z79.82 SENIOR LIVING (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 OF ASPIRIN 04/06/2017 MELISSA GARCIA [...] R 04/08/2017 MALIA JOLLY MD Ot Z79.82 ART HISTORIAN (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 OF ASPIRIN 04/08/2017 MALIA JOLLY [...] FACTORS, INI 04/08/2017 MELISSA GARCIA Ot Z79.82 ART HISTORIAN (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 OF ASPIRIN 04/08/2017 MELISSA GARCIA [...] NEOPLASM OF ETIENNE 05/19/2017 DWIGHT, APRIL A ANGIO TECHNOLOGIST Ot 733.90 BONE CARTILAGE DIS NOS 05/19/2017 DWIGHT, APRIL A ANGIO TECHNOLOGIST Ot V65.42 COUNSELING ON SUBSTANCE USE AND ABUSE 05/19/2017 DWIGHT, APRIL A ANGIO TECHNOLOGIST Ot V65.49 OTHER SPECIFIED COUNSELING 05/19/2017 DWIGHT, APRIL A ANGIO TECHNOLOGIST Ot V76.12 OTH SCREEN MAMMO-MALIGN NEOPLASM OF ETIENNE 05/19/2017 DWIGHT, APRIL A ANGIO TECHNOLOGIST Ot V76.51 SCREEN MAL NEOP-COLON 05/19/2017 DWIGHT, APRIL A ANGIO TECHNOLOGIST Ot V82.81 SCREENING FOR OSTEOPOROSIS 05/19/2017 MELISSA GARCIA Ot R06.02 SHORTNESS OF BREATH 05/19/2017 Ot V76.12 OTH SCREEN MAMMO-MALIGN NEOPLASM OF ETIENNE 05/19/2017 HUMA LOZOYA MD Ot V76.12 OTH SCREEN MAMMO-MALIGN NEOPLASM OF ETIENNE 05/19/2017 DWIGHT, APRIL A ANGIO TECHNOLOGIST Ot 733.90 BONE CARTILAGE DIS NOS 05/19/2017 DWIGHT, APRIL A ANGIO TECHNOLOGIST Ot V65.42 COUNSELING ON SUBSTANCE USE AND ABUSE 05/19/2017 DWIGHT, APRIL A ANGIO TECHNOLOGIST Ot V65.49 OTHER SPECIFIED COUNSELING 05/19/2017 DWIGHT, APRIL A ANGIO TECHNOLOGIST Ot V76.12 OTH SCREEN MAMMO-MALIGN NEOPLASM OF ETIENNE 05/19/2017 DWIGHT, APRIL A ANGIO TECHNOLOGIST Ot V76.51 SCREEN MAL NEOP-COLON 05/19/2017 DWIGHT, APRIL A ANGIO TECHNOLOGIST Ot V82.81 SCREENING FOR OSTEOPOROSIS 05/19/2017 MELISSA GARCIA Ot R06.02 SHORTNESS OF BREATH 05/20/2017 Ot V76.12 OTH SCREEN MAMMO-MALIGN NEOPLASM OF ETIENNE 05/20/2017 DEVORA PINEDO, HUMA Sparks Ot V76.12 OTH SCREEN MAMMO-MALIGN NEOPLASM OF ETIENNE 05/20/2017 APRIL QUINTANILLA ANGIO TECHNOLOGIST Ot 733.90 BONE CARTILAGE DIS NOS 05/20/2017 DWIGHTJIAPRIL Jp ANGIO TECHNOLOGIST Ot V65.42 COUNSELING ON SUBSTANCE USE AND ABUSE 05/20/2017 DWIGHTJIAPRIL A ANGIO TECHNOLOGIST Ot V65.49 OTHER SPECIFIED COUNSELING 05/20/2017 DWIGHTJIAPRIL Jp ANGIO TECHNOLOGIST Ot V76.12 OTH SCREEN MAMMO-MALIGN NEOPLASM OF ETIENNE 05/20/2017 DWIGHTJIAPRIL Jp ANGIO TECHNOLOGIST Ot V76.51 SCREEN MAL NEOP-COLON 05/20/2017 DWIGHT, APRIL A ANGIO TECHNOLOGIST Ot V82.81 SCREENING FOR OSTEOPOROSIS 05/21/2017 HONEY [...] BREATH 05/21/2017 LI LOPEZ APRN Ot Z79.82 ART HISTORIAN (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 OF ASPIRIN 05/21/2017 LI LOPEZ APRN Ot Z80.8 FAMILY HISTORY OF MALIGNANT NEOPLASM OF 05/21/2017 LI LOPEZ APRN Ot Z87.448 PERSONAL HISTORY OF OTHER DISEASES OF UR 05/21/2017 LOPEZ, PETER J ANGIO TECHNOLOGIST Ot Z91.5 PERSONAL HISTORY OF SELF-HARM 05/24/2017 [...] BREATH 05/24/2017 LI LOPEZ APRN Ot Z79.82 ART HISTORIAN (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 OF ASPIRIN 05/24/2017 LI LOPEZ APRN Ot Z80.8 FAMILY HISTORY OF MALIGNANT NEOPLASM OF 05/24/2017 LI LOPEZ APRN Ot Z87.448 PERSONAL HISTORY OF OTHER DISEASES OF UR 05/24/2017 LI LOPEZ APRN Ot Z91.5 PERSONAL HISTORY OF SELF-HARM 05/29/2017 SHAHANA ROSENTHALP Ot F10.129 ALCOHOL ABUSE WITH INTOXICATION, UNSPECI 05/29/2017 ARIADNA SHAHANA ABSENCE MANAGEMENT CONSULTANT Ot F12.90 CANNABIS USE, UNSPECIFIED, UNCOMPLICATED 05/29/2017 ARIADNA SHAHANA ABSENCE MANAGEMENT CONSULTANT Ot F31.9 BIPOLAR DISORDER, UNSPECIFIED 05/29/2017 ARIADNA SHAHANA ABSENCE MANAGEMENT CONSULTANT Ot F41.9 ANXIETY DISORDER, UNSPECIFIED 05/29/2017 ARIADNA SHAHANA ABSENCE MANAGEMENT CONSULTANT Ot G47.30 SLEEP APNEA, UNSPECIFIED 05/29/2017 SHAHANA ROSENTHAL ABSENCE MANAGEMENT CONSULTANT Ot G47.9 SLEEP DISORDER, UNSPECIFIED 05/29/2017 ARIADNA SHAHANA ABSENCE MANAGEMENT CONSULTANT Ot J44.9 CHRONIC OBSTRUCTIVE PULMONARY DISEASE, U 05/29/2017 SHAHANA ROSENTHAL ABSENCE MANAGEMENT CONSULTANT Ot R06.02 SHORTNESS OF BREATH 05/29/2017 SHAHANA ROSENTHAL ABSENCE MANAGEMENT CONSULTANT Ot Z77.22 CNTCT W AND EXPSR TO ENVIRON TOBACCO SMO 05/29/2017 SHAHANA ROSENTHAL ABSENCE MANAGEMENT CONSULTANT Ot Z79.82 ART HISTORIAN (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 OF ASPIRIN 05/29/2017 SHAHANA ROSENTHAL ABSENCE MANAGEMENT CONSULTANT Ot Z87.81 PERSONAL HISTORY OF (HEALED) TRAUMATIC F 05/29/2017 SHAHANA ROSENTHAL ABSENCE MANAGEMENT CONSULTANT Ot Z91.5 PERSONAL HISTORY OF SELF-HARM 06/08/2017 [...] DISEASE, U 06/08/2017 MELISSA GARCIA Ot Z79.82 ART HISTORIAN (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 OF ASPIRIN 06/08/2017 MELISSA GARCIA [...] DISEASE, U 06/10/2017 MELISSA GARCIA Ot Z79.82 ART HISTORIAN (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 OF ASPIRIN 06/10/2017 MELISSA GARCIA [...] SMO 08/19/2017 LI LOPEZ APRN Ot Z79.82 ART HISTORIAN (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 OF ASPIRIN 08/19/2017 LI LOPEZ [...] SMO 08/23/2017 LI LOPEZ APRN Ot Z79.82 ART HISTORIAN (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 OF ASPIRIN 08/23/2017 LI LOPEZ APRN Ot Z80.8 FAMILY HISTORY OF MALIGNANT NEOPLASM OF 08/23/2017 LOPEZ, PETER J ANGIO TECHNOLOGIST Ot Z91.5 PERSONAL HISTORY OF SELF-HARM 09/13/2017 Ot F10.129 ALCOHOL ABUSE WITH INTOXICATION, UNSPECI 09/13/2017 Ot F10.229 ALCOHOL DEPENDENCE WITH INTOXICATION, UN 09/13/2017 Ot F31.9 BIPOLAR DISORDER, UNSPECIFIED 09/13/2017 Ot F41.9 ANXIETY DISORDER, UNSPECIFIED 09/13/2017 Ot G47.30 SLEEP APNEA , UNSPECIFIED 09/13/2017 Ot J44.9 CHRONIC OBSTRUCTIVE PULMONARY DISEASE, U 09/13/2017 Ot Z77.22 CNTCT W AND EXPSR TO ENVIRON TOBACCO SMO 09/13/2017 Ot Z79.82 ART HISTORIAN ( 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 OF ASPIRIN 09/13/2017 Ot Z80.8 FAMILY HISTORY OF MALIGNANT NEOPLASM OF 09/13/2017 Ot Z87.448 PERSONAL HISTORY OF OTHER DISEASES OF UR 09/13/2017 Ot Z91.5 PERSONAL HISTORY OF SELF-HARM Procedures Code Description Performed By Performed On [facility], [facility] 10/09/2011 87320 UA W/ CULTURE IF INDICATED 02/19/2012 85047 ROUTINE VENIPUNCTURE 02/22/2012 18867 CBC 02/22/2012 89148 LIPID PANEL 02/22/2012 84763 CMP 02/22/2012 9602093 GFR CALC (RESULT ONLY) 02/22/2012 63182 TSH 02/23/2012 81793 MAMMOGRAM, SCREENING 02/23/2012 09914 HEMOCCULT 02/23/2012 67645 PAP SMEAR 02/23/2012 Q0091 PAP SMEAR OBTAIN SMEAR 02/23/2012 50673 URINE DRUG SCREEN (IN-HOUSE ) 01/18/2013 51067 MAMMOGRAM, SCREENING 01/19/2013 URINEDRUG URINE DRUG SCREEN (CON'F ) 01/19/2013 75203 BONE DENSITY, DEXA 04/17/2013 GENERAL S Kido, Ken 04/17/2013 06312 BONE MINERAL DENSITY, HEEL US (IN HOUSE) 04/17/2013 05646 XRAY CERVICAL SPINE, 2 OR 3 VIEWS 06/02/2013 99472 ROUTINE VENIPUNCTURE 02/16/2014 07726 MAMMOGRAM, SCREENING 02/16/2014 0866171 GFR CALC (RESULT ONLY) 02/16/2014 73867 CMP 02/16/2014 Results Test Result Range Complete [...] NRG Manual blood lymphocytes/100 leukocytes 34 % [facility] Manual eosinophils/100 leukocytes in nose 1 % [facility] Manual blood basophils/100 leukocytes 0 % [facility] Blood erythrocyte morphology finding identification NORMAL [facility] Comprehensive metabolic panel - 07/11/16 [...] calculation of estimated glomerular filtration rate > [facility] Serum or plasma glucose measurement (mass/volume) [...] Status Pt. Type Provider Facility Loc./Unit Complaint [id number] 02/16/2014 11:31:00 02/16/2014 23:59:59 CLS Outpatient HUMA LOZOYA MD [id number] 12/02/2013 06:43:00 12/02/2013 23:59:59 CLS Outpatient HUMA LOZOYA MD [id number] 11/27/2013 11:19:00 11/27/2013 23:59:59 CLS Outpatient HUMA LOZOYA MD [id number] 10/30/2013 12:59:00 10/30/2013 23:59:59 CLS Outpatient ADDIS SPRINGER APRN [id number] 09/18/2013 13:40:00 09/18/2013 23:59:59 CLS Outpatient HUMA LOZOYA MD [id number] 07/25/2013 16:53:00 07/25/2013 23:59:59 CLS Outpatient HUMA LOZOYA MD [id number] 06/02/2013 11:36:00 06/02/2013 23:59:59 CLS Outpatient BERRY BALDERRAMA DO [id number] 06/02/2013 11:36:00 06/02/2013 23:59:59 CLS Outpatient BERRY BALDERRAMA DO [id number] 04/17/2013 10:34:00 04/17/2013 23:59:59 CLS Outpatient APRIL QUINTANILLA APRN [id number] 04/17/2013 10:34:00 04/17/2013 23:59:59 CLS Outpatient APRIL QUINTANILLA APRN [id number] 03/02/2013 13:45:00 03/02/2013 23:59:59 CLS Outpatient HUMA LOZOYA MD [id number] 03/02/2013 13:45:00 03/02/2013 23:59:59 CLS Outpatient HUMA LOZOYA MD [id number] 01/18/2013 14:08:00 01/18/2013 23:59:59 CLS Outpatient HUMA LOZOYA MD [id number] 12/19/2012 11:31:00 12/19/2012 23:59:59 CLS Outpatient HUMA LOZOYA MD [id number] 09/29/2012 16:24:00 09/29/2012 23:59:59 CLS Outpatient HUMA LOZOYA MD [id number] 03/28/2012 11:42:00 03/28/2012 23:59:59 CLS Outpatient HUMA LOZOYA MD [id number] 02/22/2012 09:43:00 02/22/2012 23:59:59 CLS Outpatient BERRY BALDERRAMA DO Benny [id number] 02/19/2012 13:27:00 02/19/2012 23:59:59 CLS Outpatient TACOS LEDESMABERRY [id number] 10/02/2011 09:36:00 10/02/2011 23:59:59 [place] [id number] 10/02/2011 09:36:00 10/02/2011 23:59:59 CLS Outpatient [id number] 06/24/2012 13:29:00 Document Registration [id number] 08/19/2017 18:05:00 08/19/2017 18:55:00 DIS Emergency LI LOPEZ APRN [facility] ER SOB/ETOH DETOX [id number] 06/08/2017 20:29:00 06/08/2017 21:10:00 DIS Emergency MELISSA GARCIA [facility] ER SOA [id number] 05/29/2017 16:55:00 05/29/2017 18:10:00 DIS Emergency SHAHANA ROSENTHAL [facility] ER SOA [id number] 05/21/2017 21:00:00 05/21/2017 22:16:00 DIS Emergency LI LOPEZ APRN [facility] ER SOB [id number] 05/19/2017 17:05:00 05/19/2017 17:31:00 DIS Outpatient HONEY GOLDBERG MD [facility] ER SOA [id number] 05/11/2017 21:12:00 05/11/2017 21:57:00 DIS Emergency MELISSA GARCIA [facility] ER SOA [id number] 04/06/2017 18:38:00 04/06/2017 20:05:00 DIS Emergency MELISSA GARCIA [facility] ER ANKLE PAIN [id number] 04/06/2017 12:39:00 04/06/2017 15:08:00 DIS Emergency MALIA JOLLY MD [facility] ER DRUG/ETOH ABUSE [id number] 07/11/2016 16:09:00 07/11/2016 19:12:00 DIS Emergency MELISSA GARCIA [facility] ER ALCOHOL INTOX [id number] 03/03/2016 15:38:00 03/03/2016 16:45:00 DIS Emergency LI LOPEZ ANGIO TECHNOLOGIST [facility] ER R ANKLE PAIN [id number] 05/02/2015 16:39:00 05/04/2015 13:14:00 DIS Inpatient CHINMAY PINEDO, FINESSE Trammell [facility] 4TH RLL PNUEMONIA [id number] 11/19/2013 22:15:00 11/20/2013 10:50:00 DIS Inpatient YANN PINEDO, DANICA Tanner [facility] ICU ETOH INTOXICATION, AMS [id number] 10/02/2013 15:43:00 10/03/2013 14:03:00 DIS Inpatient BERRY BALDERRAMA DO [facility] ICU SUICIDAL/HOMICIDAL IDEATION, ETOH INTOXICATION [id number] 04/27/2013 09:25:00 04/27/2013 23:59:59 CLS Outpatient APRIL QUINTANILLA ANGIO TECHNOLOGIST [facility] RAD OSTEOPENIA [id number] 03/06/2013 10:54:00 03/06/2013 23:59:59 CLS Outpatient DEVORA PINEDO, HUMA Sparks [facility] RAD SCREENING [id number] 11/14/2012 15:16:00 11/14/2012 23:59:59 CLS Outpatient [id number] 09/19/2012 13:31:00 09/19/2012 23:59:59 CLS Outpatient [id number] 08/22/2012 15:17:00 08/22/2012 23:59:59 CLS Outpatient [id number] 08/04/2012 14:36:00 08/04/2012 23:59:59 CLS Outpatient [id number] 07/20/2012 12:07:00 07/20/2012 13:45:00 DIS Emergency CURTIS LEDESMA, FRANCISCO Montes [facility] ER FELL INJ L ARM [id number] 09/13/2017 11:13:00 Document Registration [id number] 03/16/2014 10:56:00 Document Registration [id number] 03/04/2012 10:23:00 Document Registration [id number] 01/13/2013 16:48:57 ACT Document Registration [id number] 04/08/2017 14:00:00 04/08/2017 23:59:59 CLS Outpatient DEVORA PINEDO, [facility]
== END 2017-10-12 16:02 | disposition left against medical advice (07) ==
LOC: EDUNIT# 15:36 → ER 15:37
DX: F10.10 Alcohol abuse, uncomplicated (principal)
CPT/HCPCS: 99281

== ENCOUNTER 2018-06-29 20:31 | Emergency (ER) | payer MEDICAID ==
[~2018-06-29] VITALS: Ht 165.1 cm; Wt 45.6 kg
--- OUTSIDE RECORDS SUMMARY | 2018-06-29 20:37 | XMS REPORT ---
Author Author Migration, Doctor Organization [facility] Address Unknown Phone Unavailable Care Team Providers [facility] [employer] [facility] Docent Name Role Phone Migration, Doctor Unavailable Unavailable PROBLEMS Type Condition ICD9-CM Code KNM25-FO Code Onset Dates Condition Status SNOMED Code Problem Other and unspecified hyperlipidemia 272.4 Active 17962168 Problem Asthma J45.909 Active 627347467 Problem Alcoholism F10.20 Active 4781636 Problem Arthritis M19.90 Active 0775151 Problem Other chronic pain G89.29 Active 91103542 Problem Bipolar disorder F31.9 Active 84175633 Problem Closed fracture of shaft of right fibula, unspecified fracture morphology, initial encounter S82.401A Active 82086680 Problem Major depressive disorder, single episode F32.9 Active 94909626 Problem Arthropathy, unspecified M12.9 Active [id number] ALLERGIES No Information ENCOUNTERS Encounter Location Date Diagnosis [place] [id number] [place] [address] Apr, [place] [id number] [place] [address] Apr, Injury of right ankle, initial encounter S99.911A and Encounter for immunization Z23 [place] [id number] [place] [address] Dec, [place] [address] [address] Nov, Pain in right ankle and joints of right foot M25.571 ; Other chronic pain G89.29 and Post-traumatic arthritis of right ankle M19.171 [place] [id number] [place] [address] Oct, Arthritis M19.90 [place] [id number] [place] [address] Aug, Arthritis M19.90 [facility] [address] [address] Aug, [facility] [id number] [place] [address] Jul, [facility] [id number] [place] [address] June, Arthropathy, unspecified M12.9 [facility] [id number] [place] [address] May, Asthma J45.909 and Major depressive disorder, single episode F32.9 [facility] [id number] [place] [address] Mar, Closed fracture of shaft of right fibula, unspecified fracture morphology, initial encounter S82.401A [facility] [id number] [place] [address] Feb, [facility] [id number] [place] [address] Feb, [facility] [id number] [place] [address] Nov, [facility] [id number] [place] [address] Nov, Bipolar disorder F31.9 ; Encounter for immunization Z23 and Asthma J45.909 [facility] [id number] [address] Aug, [facility] [id number] [place] [address] May, [facility] [id number] [place] [address] Apr, [facility] [id number] [place] [address] Apr, [facility] [id number] [place] [address] Apr, URI (upper respiratory infection) J06.9 and Bipolar disorder F31.9 [facility] [address] [address] Feb, [facility] [id number] [place] [address] Feb, Asthma J45.909 and Alcoholism F10.20 [facility] [address] [address] Jan, [facility] [address] [address] Jan, [facility] [address] [address] Jan, [facility] [address] [address] Nov, Alcoholism F10.20 and Anxiety F41.9 [facility] [id number] [place] [address] Jul, Anxiety 300.00 and Arthropathy 716.90 [facility] [id number] [place] [address] Jul, [facility] [id number] [place] [address] Jul, Anxiety state 300.00 [facility] [id number] [place] [address] May, [facility] [id number] [place] [address] May, [facility] [id number] [place] [address] Apr, [facility] [id number] [place] [address] Apr, [facility] [id number] [place] [address] 09 Mar, 2014 [facility] [place] [facility] [address] [id number] [place] [address] Mar, [facility] [place] [facility] [address] [id number] [place] [address] Feb, [facility] [place] [facility] [address] [id number] [place] [address] Feb, [facility] [place] [facility] [address] [id number] [place] [address] Feb, [facility] [place] [facility] [address] [id number] [place] [address] Feb, [facility] [place] [facility] [address] [id number] [place] [address] Jan, [facility] [place] [facility] [address] [id number] [place] [address] Jan, [facility] [place] [facility] [address] [id number] [place] [address] Jan, [facility] [place] [facility] [address] [id number] [place] [address] Jan, [facility] [place] [facility] [address] [facility] [id number] [place] [address] Nov, [facility] [place] [facility] [address] [id number] [place] [address] Nov, [facility] [place] [facility] [address] [id number] [place] [address] Nov, [facility] [place] [facility] [address] [id number] [place] [address] Nov, [facility] [place] [facility] [address] [id number] [place] [address] Nov, [facility] [place] [facility] [address] [id number] [place] [address] Nov, [facility] [place] [facility] [address] [id number] [place] [address] Nov, [facility] [place] [facility] [address] [id number] [place] [address] Nov, [facility] [place] [facility] [address] [id number] [place] [address] Nov, [facility] [place] [facility] [address] [id number] [place] [address] Nov, [facility] [place] [facility] [address] [id number] [place] [address] Nov, [facility] [place] [facility] [address] [id number] [place] [address] Nov, [facility] [place] [facility] [address] [id number] [place] [address] Nov, [facility] [place] [facility] [address] [id number] [place] [address] 30 Oct, 2013 [facility] [place] [facility] [address] [id number] [place] [address] 30 Oct, 2013 [facility] [place] [facility] [address] [id number] [place] [address] 26 Oct, 2013 [facility] [place] [facility] [address] [id number] [address] 26 Sep, 2013 [facility] [place] [facility] [address] [id number] [address] 08 Sep, 2013 [facility] [place] [facility] [address] [id number] [place] [address] 08 Sep, 2013 [facility] [place] [facility] [address] [id number], [place] [address] 04 Sep, 2013 [facility] [place] [facility] [address] [id number] [place] [address] 04 Sep, 2013 [facility] [place] [facility] [address] [id number] [place] [address] Oct, 2013 [facility] [place] [facility] [address] [id number] [place] [address] Oct, 2013 [facility] [place] [facility] [address] [id number] [place] [address] Oct, [facility] [place] [facility] [address] [id number] [place] [address] Oct, [facility] [place] [facility] [address] [id number] [place] [address] Sep, [facility] [place] [facility] [address] [id number] [place] [address] Sep, [facility] [place] [facility] [address] [id number] [place] [address] Sep, [facility] [place] [facility] [address] [id number] [place] [address] Sep, [facility] [place] [facility] [address] [id number] [place] [address] Sep, [facility] [place] [facility] [address] [id number] [place] [address] Sep, [facility] [place] [facility] [address] [id number] [place] [address] Sep, [facility] [place] [facility] [address] [id number] [place] [address] Sep, [facility] [place] [facility] [address] [id number] [place] [address] Aug, [facility] [place] [facility] [address] [id number] [place] [address] Aug, [facility] [place] [facility] [address] [id number] [place] [address] Aug, [facility] [place] [facility] [address] [id number] [place] [address] Aug, [facility] [place] [facility] [address] [id number] [place] [address] Jul, [facility] [place] [facility] [address] [id number] [place] [address] Jul, [facility] [place] [facility] [address] [id number] [place] [address] Jul, [facility] [place] [facility] [address] [id number] [place] [address] Jul, [facility] [place] [facility] [address] [id number] [place] [address] Jul, [facility] [place] [facility] [address] [id number] [place] [address] Jul, [facility] [place] [facility] [address] [id number] [place] [address] June, [facility] [place] [facility] [address] [id number] [place] [address] June, [facility] [place] [facility] [address] [id number] [place] [address] June, [facility] [place] [facility] [address] [id number] [place] [address] June, [facility] [place] [facility] [address] [id number] [place] [address] June, [facility] [place] [facility] [address] [id number] [place] [address] June, [facility] [place] [facility] [address] [id number] [place] [address] May, [facility] [place] [facility] [address] [id number] [place] [address] May, [facility] [place] [facility] [address] [id number] [place] [address] May, [facility] [place] [facility] [address] [id number] [place] [address] May, [facility] [place] [facility] [address] [id number] [place] [address] May, [facility] [place] [facility] [address] [id number] [place] [address] May, [facility] [place] [facility] [address] [id number] [place] [address] May, [facility] [place] [facility] [address] [id number] [place] [address] May, [facility] [place] [facility] [address] [id number] [place] [address] May, [facility] [place] [facility] [address] [id number] [place] [address] May, [facility] [place] [facility] [address] [id number] [place] [address] Apr, [facility] [place] [facility] [address] [id number] [place] [address] Apr, [facility] [place] [facility] [address] [id number] [place] [address] 10 Apr, 2013 [facility] [place] [facility] [address] [id number] [place] [address] 10 Apr, 2013 [facility] [place] [facility] [address] [id number] [place] [address] 10 Apr, 2013 [facility] [place] [facility] [address] [id number] [place] [address] 10 Apr, 2013 [facility] [place] [facility] [address] [id number] [place] [address] 10 Apr, 2013 [facility] [place] [facility] [address] [id number] [place] [address] 10 Apr, 2013 [facility] [place] [facility] [address] [id number] [place] [address] Apr, [facility] [place] [facility] [address] [id number] [place] [address] Apr, [facility] [place] [facility] [address] [id number] [place] [address] Apr, [facility] [place] [facility] [address] [id number] [place] [address] Apr, [facility] [place] [facility] [address] [id number] [place] [address] Mar, [facility] [place] [facility] [address] [id number] [place] [address] Mar, [facility] [place] [facility] [address] [id number] [place] [address] Mar, [facility] [place] [facility] [address] [id number] [place] [address] Mar, [facility] [place] [facility] [address] [id number] [place] [address] Feb, [facility] [place] [facility] [address] [id number] [place] [address] Feb, [facility] [place] [facility] [address] [id number] [place] [address] Feb, [facility] [place] [facility] [address] [id number] [place] [address] Feb, [facility] [place] [facility] [address] [id number] [place] [address] Feb, [facility] [place] [facility] [address] [id number] [place] [address] Feb, [facility] [place] [facility] [address] [id number] [place] [address] Feb, [facility] [place] [facility] [address] [id number] [place] [address] Feb, [facility] [place] [facility] [address] [id number] [place] [address] Feb, [facility] [address] [id number] [place] [address] Feb, [facility] [place] [facility] [address] [id number] [place] [address] Jan, [facility] [place] [facility] [address] [id number] [place] [address] Jan, [facility] [place] [facility] [address] [id number] [place] [address] Jan, [facility] [place] [facility] [address] [id number] [place] [address] Jan, [facility] [place] [facility] [address] [id number] [place] [address] Jan, [facility] [place] [facility] [address] [id number] [place] [address] Jan, [facility] [place] [facility] [address] [id number] [place] [address] Jan, [facility] [place] [facility] [address] [id number] [place] [address] Jan, [facility] [place] [facility] [address] [id number] [address] Jan, [facility] [place] [facility] [address] [id number], [place] [address] Dec, [facility] [place] [facility] [address] [id number], [place] [address] Dec, [facility] [place] [facility] [address] [id number] [place] [address] Dec, [facility] [place] [facility] [address] [id number], [place] [address] Dec, [facility] [place] [facility] [address] [id number] [place] [address] Nov, [facility] [place] [facility] [address] [id number] [place] [address] Nov, [facility] [place] [facility] [address] [id number] [place] [address] Nov, [facility] [place] [facility] [address] [id number] [place] [address] Nov, [facility] [place] [facility] [address] [id number] [place] [address] Nov, [facility] [place] [facility] [address] [id number] [place] [address] Nov, [facility] [place] [facility] [address] [id number] [place] [address] Oct, [facility] [place] [facility] [address] [id number] [place] [address] Oct, [facility] [place] [facility] [address] [id number] [place] [address] Sep, [facility] [place] [facility] [address] [id number] [place] [address] Sep, [facility] [place] [facility] [address] [id number] [place] [address] Sep, [facility] [place] [facility] [address] [id number] [place] [address] Sep, [facility] [place] [facility] [address] [id number] [place] [address] Aug, [facility] [place] [facility] [address] [id number] [place] [address] Aug, [facility] [place] [facility] [address] [id number] [place] [address] Aug, [facility] [place] [facility] [address] [id number] [place] [address] Jul, [facility] [place] [facility] [address] [id number] [place] [address] Jul, [facility] [place] [facility] [address] [id number] [place] [address] Jul, [facility] [address] [id number] [place] [address] Jul, [facility] [address] [id number] [place] [address] June, [facility] [address] [id number] [place] [address] June, [facility] [address] [id number] [place] [address] May, [facility] [address] [id number] [place] [address] May, [facility] [address] [id number] [place] [address] Apr, [facility] [address] [id number] [place] [address] Apr, [facility] [address] [id number] [place] [address] Mar, [facility] [address] [id number] [place] [address] Mar, [facility] [address] [id number] [place] [address] Feb, [facility] [address] [id number] [place] [address] Feb, [facility] [place] [facility] [address] [id number] [place] [address] Feb, [facility] [place] [facility] [address] [id number] [place] [address] Feb, [facility] [place] [facility] [address] [id number] [place] [address] Feb, [facility] [address] [id number] [place] [address] 16 Feb, 2012 [facility] [place] [facility] [address] [id number] [place] [address] 16 Feb, 2012 [facility] [place] [facility] [address] [id number] [place] [address] 14 Feb, 2012 [facility] [place] [facility] [address] [id number] [place] [address] Feb, [facility] [place] [facility] [address] [id number] [place] [address] Jan, [facility] [place] [facility] [address] [id number] [place] [address] Jan, [facility] [place] [facility] [address] [id number] [place] [address] Jan, [facility] [place] [facility] [address] [id number] [place] [address] Jan, [facility] [place] [facility] [address] [id number] [place] [address] Dec, [facility] [place] [facility] [address] [id number] [place] [address] Dec, [facility] [place] [facility] [address] [id number] [place] [address] Dec, [facility] [place] [facility] [address] [id number] [place] [address] Dec, [facility] [place] [facility] [address] [id number] [place] [address] Oct, [facility] [place] [facility] [address] [id number] [place] [address] Sep, [facility] [place] [facility] [address] [id number] [place] [address] Sep, [facility] [place] [facility] [address] [id number] [place] [address] Aug, [facility] [place] [facility] [id number] [address] Jul, [facility] [id number] [address] June, [facility] [id number] [address] June, [facility] [id number] [address] May, [facility] [id number] [address] Apr, [facility] [id number] [place] [address] Mar, [facility] [id number] [address] Mar, [facility] [id number] [place] [address] Feb, [facility] [id number] [address] Dec, [facility] [id number] [address] Nov, [facility] [id number] [address] Sep, [facility] [id number] [address] Aug, IMMUNIZATIONS No Known Immunizations SOCIAL HISTORY Never Assessed REASON FOR VISIT EMR-[facility] [place] PLAN OF CARE VITAL SIGNS MEDICATIONS Unknown Medications RESULTS No Results PROCEDURES No Known procedures INSTRUCTIONS MEDICATIONS ADMINISTERED No Known Medications MEDICAL (GENERAL) HISTORY Type Description Date Medical History asthma Medical History headache Medical History chronic pain-low back with spasms Medical History anxiety Medical History depression Hospitalization History childbirth x 4
--- OUTSIDE RECORDS SUMMARY | 2018-06-29 20:37 | XMS REPORT ---
Author Author Migration, Doctor Organization [facility] Address Unknown Phone Unavailable Care Team Providers Care Data Analysis Assistant Name Role Phone Migration, Doctor Unavailable Unavailable PROBLEMS Type Condition ICD9-CM Code NTF20-OO Code Onset Dates Condition Status SNOMED Code Problem Other and unspecified hyperlipidemia 272.4 Active 74156437 Problem Asthma J45.909 Active 005796289 Problem Alcoholism F10.20 Active 4813163 Problem Arthritis M19.90 Active 5531300 Problem Other chronic pain G89.29 Active 07700352 Problem Bipolar disorder F31.9 Active 06655498 Problem Closed fracture of shaft of right fibula, unspecified fracture morphology, initial encounter S82.401A Active 13384167 Problem Major depressive disorder, single episode F32.9 Active 85824629 Problem Arthropathy, unspecified M12.9 Active [id number] ALLERGIES No Information ENCOUNTERS Encounter Location Date Diagnosis [facility] [id number] [place] [address] Apr, [facility] [id number] [place] [address] Apr, Injury of right ankle, initial encounter S99.911A and Encounter for immunization Z23 [facility] [id number] [place] [address] Dec, [facility] [address] [address] Nov, Pain in right ankle and joints of right foot M25.571 ; Other chronic pain G89.29 and Post-traumatic arthritis of right ankle M19.171 [facility] [id number] [place] [address] Oct, Arthritis M19.90 [facility] [id number] [place] [address] Aug, Arthritis M19.90 [facility] [address] [address] Aug, [facility] [id number] [place] [address] Jul, [facility] [id number] [place] [address] June, Arthropathy, unspecified M12.9 [facility] [id number] [place] [address] May, Asthma J45.909 and Major depressive disorder, single episode F32.9 [facility] [id number] [place] [address] Mar, Closed fracture of shaft of right fibula, unspecified fracture morphology, initial encounter S82.401A [facility] [id number] [place] [address] Feb, [facility] [id number] [place] [address] Feb, [facility] [id number] [place] [address] Nov, [facility] [id number] [place] [address] Nov, Bipolar disorder F31.9 ; Encounter for immunization Z23 and Asthma J45.909 [facility] [address] [address] Aug, [facility] [id number] [place] [address] May, [facility] [id number] [place] [address] Apr, [facility] [id number] [place] [address] Apr, [facility] [id number] [place] [address] Apr, URI (upper respiratory infection) J06.[address] [facility] [address] [address] Feb, [facility] [id number] [place] [address] Feb, Asthma J45.[address] [facility] [address] [address] Jan, [facility] [address] [address] Jan, [facility] [address] [address] Jan, [facility] [address] [address] Nov, Alcoholism F10.[address] [facility] [id number] [place] [address] Jul, Anxiety 300.[address] [facility] [id number] [place] [address] Jul, [facility] [id number] [place] [address] Jul, Anxiety state 300.00 [facility] [id number] [place] [address] May, [facility] [id number] [place] [address] May, [facility] [id number] [place] [address] Apr, [facility] [id number] [place] [address] Apr, [facility] [address] [place] [address] 09 Mar, 2014 [facility] [place] [facility] [address] [id number] [place] [address] Mar, [facility] [place] [facility] [address] [id number] [place] [address] Feb, [facility] [place] [facility] [address] [id number] [place] [address] Feb, [facility] [place] [facility] [address] [id number] [place] [address] Feb, [facility] [place] [facility] [address] [id number] [place] [address] Feb, [facility] [place] [facility] [address] [id number] [place] [address] Jan, [facility] [place] [facility] [address] [id number] [place] [address] Jan, [facility] [place] [facility] [address] [id number] [place] [address] Jan, [facility] [place] [facility] [address] [id number] [place] [address] Jan, [facility] [place] [facility] [address] [facility] [id number] [place] [address] Nov, [facility] [place] [facility] [address] [id number] [place] [address] Nov, [facility] [place] [facility] [address] [id number] [place] [address] Nov, [facility] [place] [facility] [address] [id number] [place] [address] Nov, [facility] [place] [facility] [address] [id number] [place] [address] Nov, [facility] [place] [facility] [address] [id number] [place] [address] Nov, [facility] [place] [facility] [address] [id number] [place] [address] Nov, [facility] [place] [facility] [address] [id number] [place] [address] Nov, [facility] [place] [facility] [address] [id number] [place] [address] Nov, [facility] [place] [facility] [address] [id number] [place] [address] Nov, [facility] [place] [facility] [address] [id number] [place] [address] Nov, [facility] [place] [facility] [address] [id number] [place] [address] Nov, [facility] [place] [facility] [address] [id number] [place] [address] Nov, [facility] [place] [facility] [address] [id number] [place] [address] 30 Oct, 2013 [facility] [place] [facility] [address] [id number] [place] [address] 30 Oct, 2013 [facility] [place] [facility] [address] [id number] [place] [address] 26 Oct, 2013 [facility] [place] [facility] [address] [id number], [place] [address] 26 Sep, 2013 [facility] [place] [facility] [address] [id number], [place] [address] 08 Sep, 2013 [facility] [place] [facility] [address] [id number] [place] [address] 08 Sep, 2013 [facility] [place] [facility] [address] [id number], [place] [address] 04 Sep, 2013 [facility] [place] [facility] [address] [id number] [place] [address] 04 Sep, 2013 [facility] [place] [facility] [address] [id number] [place] [address] Oct, 2013 [facility] [place] [facility] [address] [id number] [place] [address] Oct, 2013 [facility] [place] [facility] [address] [id number] [place] [address] Oct, [facility] [place] [facility] [address] [id number] [place] [address] Oct, [facility] [place] [facility] [address] [id number] [place] [address] Sep, [facility] [place] [facility] [address] [id number] [place] [address] Sep, [facility] [place] [facility] [address] [id number] [place] [address] Sep, [facility] [place] [facility] [address] [id number] [place] [address] Sep, [facility] [place] [facility] [address] [id number] [place] [address] Sep, [facility] [place] [facility] [address] [id number] [place] [address] Sep, [facility] [place] [facility] [address] [id number] [place] [address] Sep, [facility] [place] [facility] [address] [id number] [place] [address] Sep, [facility] [place] [facility] [address] [id number] [place] [address] Aug, [facility] [place] [facility] [address] [id number] [place] [address] Aug, [facility] [place] [facility] [address] [id number] [place] [address] Aug, [facility] [place] [facility] [address] [id number] [place] [address] Aug, [facility] [place] [facility] [address] [id number] [place] [address] Jul, [facility] [place] [facility] [address] [id number] [place] [address] Jul, [facility] [place] [facility] [address] [id number] [place] [address] Jul, [facility] [place] [facility] [address] [id number] [place] [address] Jul, [facility] [place] [facility] [address] [id number] [place] [address] Jul, [facility] [place] [facility] [address] [id number] [place] [address] Jul, [facility] [place] [facility] [address] [id number] [place] [address] June, [facility] [place] [facility] [address] [id number] [place] [address] June, [facility] [place] [facility] [address] [id number] [place] [address] June, [facility] [place] [facility] [address] [id number] [place] [address] June, [facility] [place] [facility] [address] [id number] [place] [address] June, [facility] [place] [facility] [address] [id number] [place] [address] June, [facility] [place] [facility] [address] [id number] [place] [address] May, [facility] [place] [facility] [address] [id number] [place] [address] May, [facility] [place] [facility] [address] [id number] [place] [address] May, [facility] [place] [facility] [address] [id number] [place] [address] May, [facility] [place] [facility] [address] [id number] [place] [address] May, [facility] [place] [facility] [address] [id number] [place] [address] May, [facility] [place] [facility] [address] [id number] [place] [address] May, [facility] [place] [facility] [address] [id number] [place] [address] May, [facility] [place] [facility] [address] [id number] [place] [address] May, [facility] [place] [facility] [address] [id number] [place] [address] May, [facility] [place] [facility] [address] [id number] [place] [address] Apr, [facility] [place] [facility] [address] [id number] [place] [address] Apr, [facility] [place] [facility] [address] [id number] [place] [address] 10 Apr, 2013 [facility] [place] [facility] [address] [id number] [place] [address] 10 Apr, 2013 [facility] [place] [facility] [address] [id number] [place] [address] 10 Apr, 2013 [facility] [place] [facility] [address] [id number] [place] [address] 10 Apr, 2013 [facility] [place] [facility] [address] [id number] [place] [address] 10 Apr, 2013 [facility] [place] [facility] [address] [id number] [place] [address] 10 Apr, 2013 [facility] [place] [facility] [address] [id number] [place] [address] Apr, [facility] [place] [facility] [address] [id number] [place] [address] Apr, [facility] [place] [facility] [address] [id number] [place] [address] Apr, [facility] [place] [facility] [address] [id number] [place] [address] Apr, [facility] [place] [facility] [address] [id number] [place] [address] Mar, [facility] [place] [facility] [address] [id number] [place] [address] Mar, [facility] [place] [facility] [address] [id number] [place] [address] Mar, [facility] [place] [facility] [address] [id number] [place] [address] Mar, [facility] [place] [facility] [address] [id number] [place] [address] Feb, [facility] [place] [facility] [address] [id number] [place] [address] Feb, [facility] [place] [facility] [address] [id number] [place] [address] Feb, [facility] [place] [facility] [address] [id number] [place] [address] Feb, [facility] [place] [facility] [address] [id number] [place] [address] Feb, [facility] [place] [facility] [address] [id number] [place] [address] Feb, [facility] [place] [facility] [address] [id number] [place] [address] Feb, [facility] [place] [facility] [address] [id number] [place] [address] Feb, [facility] [place] [facility] [address] [id number] [place] [address] Feb, [facility] [address] [id number] [place] [address] Feb, [facility] [place] [facility] [address] [id number] [place] [address] Jan, [facility] [place] [facility] [address] [id number] [place] [address] Jan, [facility] [place] [facility] [address] [id number] [place] [address] Jan, [facility] [place] [facility] [address] [id number] [place] [address] Jan, [facility] [place] [facility] [address] [id number] [place] [address] Jan, [facility] [place] [facility] [address] [id number] [place] [address] Jan, [facility] [place] [facility] [address] [id number] [place] [address] Jan, [facility] [place] [facility] [address] [id number] [place] [address] Jan, [facility] [place] [facility] [address] [id number], [place] [address] Jan, [facility] [place] [facility] [address] [id number], [place] [address] Dec, [facility] [place] [facility] [address] [id number], [place] [address] Dec, [facility] [place] [facility] [address] [id number] [place] [address] Dec, [facility] [place] [facility] [address] [id number], [place] [address] Dec, [facility] [place] [facility] [address] [id number] [place] [address] Nov, [facility] [place] [facility] [address] [id number] [place] [address] Nov, [facility] [place] [facility] [address] [id number] [place] [address] Nov, [facility] [place] [facility] [address] [id number] [place] [address] Nov, [facility] [place] [facility] [address] [id number] [place] [address] Nov, [facility] [place] [facility] [address] [id number] [place] [address] Nov, [facility] [place] [facility] [address] [id number] [place] [address] Oct, [facility] [place] [facility] [address] [id number] [place] [address] Oct, [facility] [place] [facility] [address] [id number] [place] [address] Sep, [facility] [place] [facility] [address] [id number] [place] [address] Sep, [facility] [place] [facility] [address] [id number] [place] [address] Sep, [facility] [place] [facility] [address] [id number] [place] [address] Sep, [facility] [place] [facility] [address] [id number] [place] [address] Aug, [facility] [place] [facility] [address] [id number] [place] [address] Aug, [facility] [place] [facility] [address] [id number] [place] [address] Aug, [facility] [place] [facility] [address] [id number] [place] [address] Jul, [facility] [place] [facility] [address] [id number] [place] [address] Jul, [facility] [place] [facility] [address] [id number] [place] [address] Jul, [facility] [address] [id number] [place] [address] Jul, [facility] [address] [id number] [place] [address] June, [facility] [address] [id number] [place] [address] June, [facility] [address] [id number] [place] [address] May, [facility] [address] [id number] [place] [address] May, [facility] [address] [id number] [place] [address] Apr, [facility] [address] [id number] [place] [address] Apr, [facility] [address] [id number] [place] [address] Mar, [facility] [address] [id number] [place] [address] Mar, [facility] [address] [id number] [place] [address] Feb, [facility] [address] [id number] [place] [address] Feb, [facility] [place] [facility] [address] [id number] [place] [address] Feb, [facility] [place] [facility] [address] [id number] [place] [address] Feb, [facility] [place] [facility] [address] [id number] [place] [address] Feb, [facility] [address] [id number] [place] [address] 16 Feb, 2012 [facility] [place] [facility] [address] [id number] [place] [address] 16 Feb, 2012 [facility] [place] [facility] [address] [id number] [place] [address] 14 Feb, 2012 [facility] [place] [facility] [address] [id number] [place] [address] Feb, [facility] [place] [facility] [address] [id number] [place] [address] Jan, [facility] [place] [facility] [address] [id number] [place] [address] Jan, [facility] [place] [facility] [address] [id number] [place] [address] Jan, [facility] [place] [facility] [address] [id number] [place] [address] Jan, [facility] [place] [facility] [address] [id number] [place] [address] Dec, [facility] [place] [facility] [address] [id number] [place] [address] Dec, [facility] [place] [facility] [address] [id number] [place] [address] Dec, [facility] [place] [facility] [address] [id number] [place] [address] Dec, [facility] [place] [facility] [address] [id number] [place] [address] Oct, [facility] [place] [facility] [address] [id number] [place] [address] Sep, [facility] [place] [facility] [address] [id number] [place] [address] Sep, [facility] [place] [facility] [address] [id number] [place] [address] Aug, [facility] [place] [facility] [address] [address] Jul, [facility] [address] [address] June, [facility] [address] [address] June, [facility] [address] [address] May, [facility] [address] [address] Apr, [facility] [id number] [place] [address] Mar, [facility] [id number] [address] Mar, [facility] [id number] [place] [address] Feb, [facility] [address] [address] Dec, [facility] [address] [address] Nov, [facility] [address] [address] Sep, [facility] [address] [address] Aug, IMMUNIZATIONS No Known Immunizations SOCIAL HISTORY Never Assessed REASON FOR VISIT [facility] VITAL SIGNS MEDICATIONS Unknown Medications RESULTS No Results PROCEDURES No Known procedures INSTRUCTIONS MEDICATIONS ADMINISTERED No Known Medications MEDICAL (GENERAL) HISTORY Type Description Date Medical History asthma Medical History headache Medical History chronic pain-low back with spasms Medical History anxiety Medical History depression Hospitalization History childbirth x 4
--- OUTSIDE RECORDS SUMMARY | 2018-06-29 20:37 | XMS REPORT ---
Author Author Migration, Doctor Organization [facility] Address Unknown Phone Unavailable Care Team Providers Care Sketch Maker Name Role Phone Migration, Doctor Unavailable Unavailable PROBLEMS Type Condition ICD9-CM Code DQB08-FQ Code Onset Dates Condition Status SNOMED Code Problem Other and unspecified hyperlipidemia 272.4 Active 28934400 Problem Asthma J45.909 Active 858088248 Problem Alcoholism F10.20 Active 6706367 Problem Arthritis M19.90 Active 1842578 Problem Other chronic pain G89.29 Active 34416947 Problem Bipolar disorder F31.9 Active 64129298 Problem Closed fracture of shaft of right fibula, unspecified fracture morphology, initial encounter S82.401A Active 45231473 Problem Major depressive disorder, single episode F32.9 Active 30179279 Problem Arthropathy, unspecified M12.9 Active 257788010 ALLERGIES No Information ENCOUNTERS Encounter Location Date Diagnosis [facility] [id number] [place] [address] Apr, [facility] [id number] [place] [address] Apr, Injury of right ankle, initial encounter S99.911A and Encounter for immunization Z23 [facility] [id number] [place] [address] Dec, [facility] [facility] [address] [address] Nov, Pain in right ankle and joints of right foot M25.571 ; Other chronic pain G89.29 and Post-traumatic arthritis of right ankle M19.171 [facility] [id number] [place] [address] Oct, Arthritis M19.90 [facility] [id number] [place] [address] Aug, Arthritis M19.90 [facility] [address] [address] Aug, [facility] [id number] [place] [address] Jul, [facility] [id number] [place] [address] June, Arthropathy, unspecified M12.9 [facility] [id number] [place] [address] May, Asthma J45.909 and Major depressive disorder, single episode F32.9 [facility] [id number] [place] [address] Mar, Closed fracture of shaft of right fibula, unspecified fracture morphology, initial encounter S82.401A [facility] [id number] [place] [address] Feb, [facility] [id number] [place] [address] Feb, [facility] [id number] [place] [address] Nov, [facility] [id number] [place] [address] Nov, Bipolar disorder F31.9 ; Encounter for immunization Z23 and Asthma J45.909 [facility] [address], [place] [address] Aug, [facility] [id number] [place] [address] May, [facility] [id number] [place] [address] Apr, [facility] [id number] [place] [address] Apr, [facility] [id number] [place] [address] Apr, URI (upper respiratory infection) J06.[address] [facility] [address] [address] Feb, [facility] [id number] [place] [address] Feb, Asthma J45.[address] [facility] [address] [address] Jan, [facility] [address] [address] Jan, [facility] [address] [address] Jan, [facility] [address] [address] Nov, Alcoholism F10.[address] [facility] [id number] [place] [address] Jul, Anxiety 300.[address] [facility] [id number] [place] [address] Jul, [facility] [id number] [place] [address] Jul, Anxiety state 300.00 [facility] [id number] [place] [address] May, [facility] [id number] [place] [address] May, [facility] [id number] [place] [address] Apr, [facility] [id number] [place] [address] Apr, [facility] [id number] [place] [address] 09 Mar, 2014 [facility] [place] [facility] [address] [id number] [place] [address] Mar, [facility] [place] [facility] [address] [id number] [place] [address] Feb, [facility] [place] [facility] [address] [id number] [place] [address] Feb, [facility] [place] [facility] [address] [id number] [place] [address] Feb, [facility] [place] [facility] [address] [id number] [place] [address] Feb, [facility] [place] [facility] [address] [id number] [place] [address] Jan, [facility] [place] [facility] [address] [id number] [place] [address] Jan, [facility] [place] [facility] [address] [id number] [place] [address] Jan, [facility] [place] [facility] [address] [id number] [place] [address] Jan, [facility] [place] [facility] [address] [facility] [id number] [place] [address] Nov, [facility] [place] [facility] [address] [id number] [place] [address] Nov, [facility] [place] [facility] [address] [id number] [place] [address] Nov, [facility] [place] [facility] [address] [id number] [place] [address] Nov, [facility] [place] [facility] [address] [id number] [place] [address] Nov, [facility] [place] [facility] [address] [id number] [place] [address] Nov, [facility] [place] [facility] [address] [id number] [place] [address] Nov, [facility] [place] [facility] [address] [id number] [place] [address] Nov, [facility] [place] [facility] [address] [id number] [place] [address] Nov, [facility] [place] [facility] [address] [id number] [place] [address] Nov, [facility] [place] [facility] [address] [id number] [place] [address] Nov, [facility] [place] [facility] [address] [id number] [place] [address] Nov, [facility] [place] [facility] [address] [id number] [place] [address] Nov, [facility] [place] [facility] [address] [id number] [place] [address] 30 Oct, 2013 [facility] [place] [facility] [address] [id number] [place] [address] 30 Oct, 2013 [facility] [place] [facility] [address] [id number] [place] [address] 26 Oct, 2013 [facility] [place] [facility] [address] [id number], [place] [address] 26 Sep, 2013 [facility] [place] [facility] [address] [id number], [place] [address] 08 Sep, 2013 [facility] [place] [facility] [address] [id number] [place] [address] 08 Sep, 2013 [facility] [place] [facility] [address] [id number], [place] [address] 04 Sep, 2013 [facility] [place] [facility] [address] [id number] [place] [address] 04 Sep, 2013 [facility] [place] [facility] [address] [id number] [place] [address] Oct, 2013 [facility] [place] [facility] [address] [id number] [place] [address] Oct, 2013 [facility] [place] [facility] [address] [id number] [place] [address] Oct, [facility] [place] [facility] [address] [id number] [place] [address] Oct, [facility] [place] [facility] [address] [id number] [place] [address] Sep, [facility] [place] [facility] [address] [id number] [place] [address] Sep, [facility] [place] [facility] [address] [id number] [place] [address] Sep, [facility] [place] [facility] [address] [id number] [place] [address] Sep, [facility] [place] [facility] [address] [id number] [place] [address] Sep, [facility] [place] [facility] [address] [id number] [place] [address] Sep, [facility] [place] [facility] [address] [id number] [place] [address] Sep, [facility] [place] [facility] [address] [id number] [place] [address] Sep, [facility] [place] [facility] [address] [id number] [place] [address] Aug, [facility] [place] [facility] [address] [id number] [place] [address] Aug, [facility] [place] [facility] [address] [id number] [place] [address] Aug, [facility] [place] [facility] [address] [id number] [place] [address] Aug, [facility] [place] [facility] [address] [id number] [place] [address] Jul, [facility] [place] [facility] [address] [id number] [place] [address] Jul, [facility] [place] [facility] [address] [id number] [place] [address] Jul, [facility] [place] [facility] [address] [id number] [place] [address] Jul, [facility] [place] [facility] [address] [id number] [place] [address] Jul, [facility] [place] [facility] [address] [id number] [place] [address] Jul, [facility] [place] [facility] [address] [id number] [place] [address] June, [facility] [place] [facility] [address] [id number] [place] [address] June, [facility] [place] [facility] [address] [id number] [place] [address] June, [facility] [place] [facility] [address] [id number] [place] [address] June, [facility] [place] [facility] [address] [id number] [place] [address] June, [facility] [place] [facility] [address] [id number] [place] [address] June, [facility] [place] [facility] [address] [id number] [place] [address] May, [facility] [place] [facility] [address] [id number] [place] [address] May, [facility] [place] [facility] [address] [id number] [place] [address] May, [facility] [place] [facility] [address] [id number] [place] [address] May, [facility] [place] [facility] [address] [id number] [place] [address] May, [facility] [place] [facility] [address] [id number] [place] [address] May, [facility] [place] [facility] [address] [id number] [place] [address] May, [facility] [place] [facility] [address] [id number] [place] [address] May, [facility] [place] [facility] [address] [id number] [place] [address] May, [facility] [place] [facility] [address] [id number] [place] [address] May, [facility] [place] [facility] [address] [id number] [place] [address] Apr, [facility] [place] [facility] [address] [id number] [place] [address] Apr, [facility] [place] [facility] [address] [id number] [place] [address] 10 Apr, 2013 [facility] [place] [facility] [address] [id number] [place] [address] 10 Apr, 2013 [facility] [place] [facility] [address] [id number] [place] [address] 10 Apr, 2013 [facility] [place] [facility] [address] [id number] [place] [address] 10 Apr, 2013 [facility] [place] [facility] [address] [id number] [place] [address] 10 Apr, 2013 [facility] [place] [facility] [address] [id number] [place] [address] 10 Apr, 2013 [facility] [place] [facility] [address] [id number] [place] [address] Apr, [facility] [place] [facility] [address] [id number] [place] [address] Apr, [facility] [place] [facility] [address] [id number] [place] [address] Apr, [facility] [place] [facility] [address] [id number] [place] [address] Apr, [facility] [place] [facility] [address] [id number] [place] [address] Mar, [facility] [place] [facility] [address] [id number] [place] [address] Mar, [facility] [place] [facility] [address] [id number] [place] [address] Mar, [facility] [place] [facility] [address] [id number] [place] [address] Mar, [facility] [place] [facility] [address] [id number] [place] [address] Feb, [facility] [place] [facility] [address] [id number] [place] [address] Feb, [facility] [place] [facility] [address] [id number] [place] [address] Feb, [facility] [place] [facility] [address] [id number] [place] [address] Feb, [facility] [place] [facility] [address] [id number] [place] [address] Feb, [facility] [place] [facility] [address] [id number] [place] [address] Feb, [facility] [place] [facility] [address] [id number] [place] [address] Feb, [facility] [place] [facility] [address] [id number] [place] [address] Feb, [facility] [place] [facility] [address] [id number] [place] [address] Feb, [facility] [address] [id number] [place] [address] Feb, [facility] [place] [facility] [address] [id number] [place] [address] Jan, [facility] [place] [facility] [address] [id number] [place] [address] Jan, [facility] [place] [facility] [address] [id number] [place] [address] Jan, [facility] [place] [facility] [address] [id number] [place] [address] Jan, [facility] [place] [facility] [address] [id number] [place] [address] Jan, [facility] [place] [facility] [address] [id number] [place] [address] Jan, [facility] [place] [facility] [address] [id number] [place] [address] Jan, [facility] [place] [facility] [address] [id number] [place] [address] Jan, [facility] [place] [facility] [address] [id number], [place] [address] Jan, [facility] [place] [facility] [address] [id number], [place] [address] Dec, [facility] [place] [facility] [address] [id number], [place] [address] Dec, [facility] [place] [facility] [address] [id number] [place] [address] Dec, [facility] [place] [facility] [address] [id number], [place] [address] Dec, [facility] [place] [facility] [address] [id number] [place] [address] Nov, [facility] [place] [facility] [address] [id number] [place] [address] Nov, [facility] [place] [facility] [address] [id number] [place] [address] Nov, [facility] [place] [facility] [address] [id number] [place] [address] Nov, [facility] [place] [facility] [address] [id number] [place] [address] Nov, [facility] [place] [facility] [address] [id number] [place] [address] Nov, [facility] [place] [facility] [address] [id number] [place] [address] Oct, [facility] [place] [facility] [address] [id number] [place] [address] Oct, [facility] [place] [facility] [address] [id number] [place] [address] Sep, [facility] [place] [facility] [address] [id number] [place] [address] Sep, [facility] [place] [facility] [address] [id number] [place] [address] Sep, [facility] [place] [facility] [address] [id number] [place] [address] Sep, [facility] [place] [facility] [address] [id number] [place] [address] Aug, [facility] [place] [facility] [address] [id number] [place] [address] Aug, [facility] [place] [facility] [address] [id number] [place] [address] Aug, [facility] [place] [facility] [address] [id number] [place] [address] Jul, [facility] [place] [facility] [address] [id number] [place] [address] Jul, [facility] [place] [facility] [address] [id number] [place] [address] Jul, [facility] [address] [id number] [place] [address] Jul, [facility] [address] [id number] [place] [address] June, [facility] [address] [id number] [place] [address] June, [facility] [address] [id number] [place] [address] May, [facility] [address] [id number] [place] [address] May, [facility] [address] [id number] [place] [address] Apr, [facility] [address] [id number] [place] [address] Apr, [facility] [address] [id number] [place] [address] Mar, [facility] [address] [id number] [place] [address] Mar, [facility] [address] [id number] [place] [address] Feb, [facility] [address] [id number] [place] [address] Feb, [facility] [place] [facility] [address] [id number] [place] [address] Feb, [facility] [place] [facility] [address] [id number] [place] [address] Feb, [facility] [place] [facility] [address] [id number] [place] [address] Feb, [facility] [address] [id number] [place] [address] 16 Feb, 2012 [facility] [place] [facility] [address] [id number] [place] [address] 16 Feb, 2012 [facility] [place] [facility] [address] [id number] [place] [address] 14 Feb, 2012 [facility] [place] [facility] [address] [id number] [place] [address] Feb, [facility] [place] [facility] [address] [id number] [place] [address] Jan, [facility] [place] [facility] [address] [id number] [place] [address] Jan, [facility] [place] [facility] [address] [id number] [place] [address] Jan, [facility] [place] [facility] [address] [id number] [place] [address] Jan, [facility] [place] [facility] [address] [id number] [place] [address] Dec, [facility] [place] [facility] [address] [id number] [place] [address] Dec, [facility] [place] [facility] [address] [id number] [place] [address] Dec, [facility] [place] [facility] [address] [id number] [place] [address] Dec, [facility] [place] [facility] [address] [id number] [place] [address] Oct, [facility] [place] [facility] [address] [id number] [place] [address] Sep, [facility] [place] [facility] [address] [id number] [place] [address] Sep, [facility] [place] [facility] [address] [id number] [place] [address] Aug, [facility] [place] [facility] [id number] [place] [address] Jul, [facility] [id number] [address] June, [facility] [id number] [address] June, [facility] [id number] [address] May, [facility] [id number] [address] Apr, [facility] [id number] [place] [address] Mar, [facility] [id number] [address] Mar, [facility] [id number] [place] [address] Feb, [facility] [id number] [address] Dec, [facility] [id number] [address] Nov, [facility] [id number] [place] [address] Sep, [facility] [id number], [place] [address] Aug, IMMUNIZATIONS No Known Immunizations SOCIAL HISTORY Never Assessed REASON FOR VISIT EMR-[facility] PLAN OF CARE VITAL SIGNS MEDICATIONS Unknown Medications RESULTS No Results PROCEDURES No Known procedures INSTRUCTIONS MEDICATIONS ADMINISTERED No Known Medications MEDICAL (GENERAL) HISTORY Type Description Date Medical History asthma Medical History headache Medical History chronic pain-low back with spasms Medical History anxiety Medical History depression Hospitalization History childbirth x 4
--- OUTSIDE RECORDS SUMMARY | 2018-06-29 20:38 | XMS REPORT ---
Author Author Migration, Doctor Organization [facility] Address Unknown Phone Unavailable Care Team Providers Care Roll Setter Name Role Phone Migration, Doctor Unavailable Unavailable PROBLEMS Type Condition ICD9-CM Code TIC16-EU Code Onset Dates Condition Status SNOMED Code Problem Other and unspecified hyperlipidemia 272.4 Active 15012973 Problem Asthma J45.909 Active 724187560 Problem Alcoholism F10.20 Active 2414998 Problem Arthritis M19.90 Active 2717654 Problem Other chronic pain G89.29 Active 29758151 Problem Bipolar disorder F31.9 Active 19974457 Problem Closed fracture of shaft of right fibula, unspecified fracture morphology, initial encounter S82.401A Active 08734572 Problem Major depressive disorder, single episode F32.9 Active 92367182 Problem Arthropathy, unspecified M12.9 Active 013960844 ALLERGIES No Information ENCOUNTERS Encounter Location Date Diagnosis [place] [id number] [place] [address] Apr, [place] [id number] [place] [address] Apr, Injury of right ankle, initial encounter S99.911A and Encounter for immunization Z23 [place] [id number] [place] [address] Dec, [place] [address] [address] Nov, Pain in right ankle and joints of right foot M25.571 ; Other chronic pain G89.29 and Post-traumatic arthritis of right ankle M19.171 [place] [id number] [place] [address] Oct, Arthritis M19.90 [place] [id number] [place] [address] Aug, Arthritis M19.90 [facility] [id number] [address] Aug, [facility] [id number] [place] [address] Jul, [facility] [id number] [place] [address] June, Arthropathy, unspecified M12.9 [facility] [id number] [place] [address] May, Asthma J45.909 and Major depressive disorder, single episode F32.9 [facility] [id number] [place] [address] Mar, Closed fracture of shaft of right fibula, unspecified fracture morphology, initial encounter S82.401A [facility] [id number] [place] [address] Feb, [facility] [id number] [place] [address] Feb, [facility] [id number] [place] [address] Nov, [facility] [id number] [place] [address] Nov, Bipolar disorder F31.9 ; Encounter for immunization Z23 and Asthma J45.909 [facility] [id number] [address] Aug, [facility] [id number] [place] [address] May, [facility] [id number] [place] [address] Apr, [facility] [id number] [place] [address] Apr, [facility] [id number] [place] [address] Apr, URI (upper respiratory infection) J06.9 and Bipolar disorder F31.9 [facility] [address] [address] Feb, [facility] [id number] [place] [address] Feb, Asthma J45.909 and Alcoholism F10.20 [facility] [address] [address] Jan, [facility] [address] [address] Jan, [facility] [address] [address] Jan, [facility] [address] [address] Nov, Alcoholism F10.20 and Anxiety F41.9 [facility] [id number] [place] [address] Jul, Anxiety 300.00 and Arthropathy 716.90 [facility] [id number] [place] [address] Jul, [facility] [id number] [place] [address] Jul, Anxiety state 300.00 [facility] [id number] [place] [address] May, [facility] [id number] [place] [address] May, [facility] [id number] [place] [address] Apr, [facility] [id number] [place] [address] Apr, [facility] [id number] [address] 09 Mar, 2014 [facility] [place] [facility] [address] [id number] [place] [address] Mar, [facility] [place] [facility] [address] [id number] [place] [address] Feb, [facility] [place] [facility] [address] [id number] [place] [address] Feb, [facility] [place] [facility] [address] [id number] [place] [address] Feb, [facility] [place] [facility] [address] [id number] [place] [address] Feb, [facility] [place] [facility] [address] [id number] [place] [address] Jan, [facility] [place] [facility] [address] [id number] [place] [address] Jan, [facility] [place] [facility] [address] [id number] [place] [address] Jan, [facility] [place] [facility] [address] [id number] [place] [address] Jan, [facility] [place] [facility] [address] [facility] [id number] [place] [address] Nov, [facility] [place] [facility] [address] [id number] [place] [address] Nov, [facility] [place] [facility] [address] [id number] [place] [address] Nov, [facility] [place] [facility] [address] [id number] [place] [address] Nov, [facility] [place] [facility] [address] [id number] [place] [address] Nov, [facility] [place] [facility] [address] [id number] [place] [address] Nov, [facility] [place] [facility] [address] [id number] [place] [address] Nov, [facility] [place] [facility] [address] [id number] [place] [address] Nov, [facility] [place] [facility] [address] [id number] [place] [address] Nov, [facility] [place] [facility] [address] [id number] [place] [address] Nov, [facility] [place] [facility] [address] [id number] [place] [address] Nov, [facility] [place] [facility] [address] [id number] [place] [address] Nov, [facility] [place] [facility] [address] [id number] [place] [address] Nov, [facility] [place] [facility] [address] [id number] [place] [address] 30 Oct, 2013 [facility] [place] [facility] [address] [id number] [place] [address] 30 Oct, 2013 [facility] [place] [facility] [address] [id number] [place] [address] 26 Oct, 2013 [facility] [place] [facility] [address] [id number] [address] 26 Sep, 2013 [facility] [place] [facility] [address] [id number] [address] 08 Sep, 2013 [facility] [place] [facility] [address] [id number] [place] [address] 08 Sep, 2013 [facility] [place] [facility] [address] [id number] [address] 04 Sep, 2013 [facility] [place] [facility] [address] [id number] [place] [address] 04 Sep, 2013 [facility] [place] [facility] [address] [id number] [place] [address] Oct, 2013 [facility] [place] [facility] [address] [id number] [place] [address] Oct, 2013 [facility] [place] [facility] [address] [id number] [place] [address] Oct, [facility] [place] [facility] [address] [id number] [place] [address] Oct, [facility] [place] [facility] [address] [id number] [place] [address] Sep, [facility] [place] [facility] [address] [id number] [place] [address] Sep, [facility] [place] [facility] [address] [id number] [place] [address] Sep, [facility] [place] [facility] [address] [id number] [place] [address] Sep, [facility] [place] [facility] [address] [id number] [place] [address] Sep, [facility] [place] [facility] [address] [id number] [place] [address] Sep, [facility] [place] [facility] [address] [id number] [place] [address] Sep, [facility] [place] [facility] [address] [id number] [place] [address] Sep, [facility] [place] [facility] [address] [id number] [place] [address] Aug, [facility] [place] [facility] [address] [id number] [place] [address] Aug, [facility] [place] [facility] [address] [id number] [place] [address] Aug, [facility] [place] [facility] [address] [id number] [place] [address] Aug, [facility] [place] [facility] [address] [id number] [place] [address] Jul, [facility] [place] [facility] [address] [id number] [place] [address] Jul, [facility] [place] [facility] [address] [id number] [place] [address] Jul, [facility] [place] [facility] [address] [id number] [place] [address] Jul, [facility] [place] [facility] [address] [id number] [place] [address] Jul, [facility] [place] [facility] [address] [id number] [place] [address] Jul, [facility] [place] [facility] [address] [id number] [place] [address] June, [facility] [place] [facility] [address] [id number] [place] [address] June, [facility] [place] [facility] [address] [id number] [place] [address] June, [facility] [place] [facility] [address] [id number] [place] [address] June, [facility] [place] [facility] [address] [id number] [place] [address] June, [facility] [place] [facility] [address] [id number] [place] [address] June, [facility] [place] [facility] [address] [id number] [place] [address] May, [facility] [place] [facility] [address] [id number] [place] [address] May, [facility] [place] [facility] [address] [id number] [place] [address] May, [facility] [place] [facility] [address] [id number] [place] [address] May, [facility] [place] [facility] [address] [id number] [place] [address] May, [facility] [place] [facility] [address] [id number] [place] [address] May, [facility] [place] [facility] [address] [id number] [place] [address] May, [facility] [place] [facility] [address] [id number] [place] [address] May, [facility] [place] [facility] [address] [id number] [place] [address] May, [facility] [place] [facility] [address] [id number] [place] [address] May, [facility] [place] [facility] [address] [id number] [place] [address] Apr, [facility] [place] [facility] [address] [id number] [place] [address] Apr, [facility] [place] [facility] [address] [id number] [place] [address] 10 Apr, 2013 [facility] [place] [facility] [address] [id number] [place] [address] 10 Apr, 2013 [facility] [place] [facility] [address] [id number] [place] [address] 10 Apr, 2013 [facility] [place] [facility] [address] [id number] [place] [address] 10 Apr, 2013 [facility] [place] [facility] [address] [id number] [place] [address] 10 Apr, 2013 [facility] [place] [facility] [address] [id number] [place] [address] 10 Apr, 2013 [facility] [place] [facility] [address] [id number] [place] [address] Apr, [facility] [place] [facility] [address] [id number] [place] [address] Apr, [facility] [place] [facility] [address] [id number] [place] [address] Apr, [facility] [place] [facility] [address] [id number] [place] [address] Apr, [facility] [place] [facility] [address] [id number] [place] [address] Mar, [facility] [place] [facility] [address] [id number] [place] [address] Mar, [facility] [place] [facility] [address] [id number] [place] [address] Mar, [facility] [place] [facility] [address] [id number] [place] [address] Mar, [facility] [place] [facility] [address] [id number] [place] [address] Feb, [facility] [place] [facility] [address] [id number] [place] [address] Feb, [facility] [place] [facility] [address] [id number] [place] [address] Feb, [facility] [place] [facility] [address] [id number] [place] [address] Feb, [facility] [place] [facility] [address] [id number] [place] [address] Feb, [facility] [place] [facility] [address] [id number] [place] [address] Feb, [facility] [place] [facility] [address] [id number] [place] [address] Feb, [facility] [place] [facility] [address] [id number] [place] [address] Feb, [facility] [place] [facility] [address] [id number] [place] [address] Feb, [facility] [address] [id number] [place] [address] Feb, [facility] [place] [facility] [address] [id number] [place] [address] Jan, [facility] [place] [facility] [address] [id number] [place] [address] Jan, [facility] [place] [facility] [address] [id number] [place] [address] Jan, [facility] [place] [facility] [address] [id number] [place] [address] Jan, [facility] [place] [facility] [address] [id number] [place] [address] Jan, [facility] [place] [facility] [address] [id number] [place] [address] Jan, [facility] [place] [facility] [address] [id number] [place] [address] Jan, [facility] [place] [facility] [address] [id number] [place] [address] Jan, [facility] [place] [facility] [address] [id number] [place] [address] Jan, [facility] [place] [facility] [address] [id number] [place] [address] Dec, [facility] [place] [facility] [address] [id number] [place] [address] Dec, [facility] [place] [facility] [address] [id number] [place] [address] Dec, [facility] [place] [facility] [address] [id number] [place] [address] Dec, [facility] [place] [facility] [address] [id number] [place] [address] Nov, [facility] [place] [facility] [address] [id number] [place] [address] Nov, [facility] [place] [facility] [address] [id number] [place] [address] Nov, [facility] [place] [facility] [address] [id number] [place] [address] Nov, [facility] [place] [facility] [address] [id number] [place] [address] Nov, [facility] [place] [facility] [address] [id number] [place] [address] Nov, [facility] [place] [facility] [address] [id number] [place] [address] Oct, [facility] [place] [facility] [address] [id number] [place] [address] Oct, [facility] [place] [facility] [address] [id number] [place] [address] Sep, [facility] [place] [facility] [address] [id number] [place] [address] Sep, [facility] [place] [facility] [address] [id number] [place] [address] Sep, [facility] [place] [facility] [address] [id number] [place] [address] Sep, [facility] [place] [facility] [address] [id number] [place] [address] Aug, [facility] [place] [facility] [address] [id number] [place] [address] Aug, [facility] [place] [facility] [address] [id number] [place] [address] Aug, [facility] [place] [facility] [address] [id number] [place] [address] Jul, [facility] [place] [facility] [address] [id number] [place] [address] Jul, [facility] [place] [facility] [address] [id number] [place] [address] Jul, [facility] [address] [id number] [place] [address] Jul, [facility] [address] [id number] [place] [address] June, [facility] [address] [id number] [place] [address] June, [facility] [address] [id number] [place] [address] May, [facility] [address] [id number] [place] [address] May, [facility] [address] [id number] [place] [address] Apr, [facility] [address] [id number] [place] [address] Apr, [facility] [address] [id number] [place] [address] Mar, [facility] [address] [id number] [place] [address] Mar, [facility] [address] [id number] [place] [address] Feb, [facility] [address] [id number] [place] [address] Feb, [facility] [place] [facility] [address] [id number] [place] [address] Feb, [facility] [place] [facility] [address] [id number] [place] [address] Feb, [facility] [place] [facility] [address] [id number] [place] [address] Feb, [facility] [address] [id number] [place] [address] 16 Feb, 2012 [facility] [place] [facility] [address] [id number] [place] [address] 16 Feb, 2012 [facility] [place] [facility] [address] [id number] [place] [address] 14 Feb, 2012 [facility] [place] [facility] [address] [id number] [place] [address] Feb, [facility] [place] [facility] [address] [id number] [place] [address] Jan, [facility] [place] [facility] [address] [id number] [place] [address] Jan, [facility] [place] [facility] [address] [id number] [place] [address] Jan, [facility] [place] [facility] [address] [id number] [place] [address] Jan, [facility] [place] [facility] [address] [id number] [place] [address] Dec, [facility] [place] [facility] [address] [id number] [place] [address] Dec, [facility] [place] [facility] [address] [id number] [place] [address] Dec, [facility] [place] [facility] [address] [id number] [place] [address] Dec, [facility] [place] [facility] [address] [id number] [place] [address] Oct, [facility] [place] [facility] [address] [id number] [place] [address] Sep, [facility] [place] [facility] [address] [id number] [place] [address] Sep, [facility] [place] [facility] [address] [id number] [place] [address] Aug, [facility] [place] [facility] [id number] [address] Jul, [facility] [id number] [address] June, [facility] [id number] [address] June, [facility] [id number] [address] May, [facility] [id number] [address] Apr, [facility] [id number] [place] [address] Mar, [facility] [id number] [address] Mar, [facility] [id number] [place] [address] Feb, [facility] [id number] [address] Dec, [facility] [id number] [address] Nov, [facility] [id number] [address] Sep, [facility] [id number] [address] Aug, IMMUNIZATIONS No Known Immunizations SOCIAL HISTORY Never Assessed REASON FOR VISIT [facility] [place] C[place] VITAL SIGNS MEDICATIONS Unknown Medications RESULTS No Results PROCEDURES No Known procedures INSTRUCTIONS MEDICATIONS ADMINISTERED No Known Medications MEDICAL (GENERAL) HISTORY Type Description Date Medical History asthma Medical History headache Medical History chronic pain-low back with spasms Medical History anxiety Medical History depression Hospitalization History childbirth x 4
--- OUTSIDE RECORDS SUMMARY | 2018-06-29 20:38 | XMS REPORT ---
Author Author Migration, Doctor Organization [facility] Address Unknown Phone Unavailable Care Team Providers Care Suture Winder Hand Name Role Phone Migration, Doctor Unavailable Unavailable PROBLEMS Type Condition ICD9-CM Code XMM85-NI Code Onset Dates Condition Status SNOMED Code Problem Other and unspecified hyperlipidemia 272.4 Active 31028223 Problem Asthma J45.909 Active 021224469 Problem Alcoholism F10.20 Active 5373493 Problem Arthritis M19.90 Active 7679193 Problem Other chronic pain G89.29 Active 80044673 Problem Bipolar disorder F31.9 Active 61736611 Problem Closed fracture of shaft of right fibula, unspecified fracture morphology, initial encounter S82.401A Active 26792527 Problem Major depressive disorder, single episode F32.9 Active 38751183 Problem Arthropathy, unspecified M12.9 Active 157003259 ALLERGIES No Information ENCOUNTERS Encounter Location Date Diagnosis [place] [id number] [place] [address] Apr, [place] [id number] [place] [address] Apr, Injury of right ankle, initial encounter S99.911A and Encounter for immunization Z23 [place] [id number] [place] [address] Dec, [place] [address] [address] Nov, Pain in right ankle and joints of right foot M25.571 ; Other chronic pain G89.29 and Post-traumatic arthritis of right ankle M19.171 [place] [id number] [place] [address] Oct, Arthritis M19.90 [place] [id number] [place] [address] Aug, Arthritis M19.90 [facility] [address] [address] Aug, [facility] [id number] [place] [address] Jul, [facility] [id number] [place] [address] June, Arthropathy, unspecified M12.9 [facility] [id number] [place] [address] May, Asthma J45.909 and Major depressive disorder, single episode F32.9 [facility] [id number] [place] [address] Mar, Closed fracture of shaft of right fibula, unspecified fracture morphology, initial encounter S82.401A [facility] [id number] [place] [address] Feb, [facility] [id number] [place] [address] Feb, [facility] [id number] [place] [address] Nov, [facility] [id number] [place] [address] Nov, Bipolar disorder F31.9 ; Encounter for immunization Z23 and Asthma J45.909 [facility] [address] [address] Aug, [facility] [id number] [place] [address] May, [facility] [id number] [place] [address] Apr, [facility] [id number] [place] [address] Apr, [facility] [id number] [place] [address] Apr, URI (upper respiratory infection) J06.9 and Bipolar disorder F31.9 [facility] [address] [address] Feb, [facility] [id number] [place] [address] Feb, Asthma J45.909 and Alcoholism F10.20 [facility] [address] [address] Jan, [facility] [address] [address] Jan, [facility] [address] [address] Jan, [facility] [address] [address] Nov, Alcoholism F10.20 and Anxiety F41.9 [facility] [id number] [place] [address] Jul, Anxiety 300.00 and Arthropathy 716.90 [facility] [id number] [place] [address] Jul, [facility] [id number] [place] [address] Jul, Anxiety state 300.00 [facility] [id number] [place] [address] May, [facility] [id number] [place] [address] May, [facility] [id number] [place] [address] Apr, [facility] [id number] [place] [address] Apr, [facility] [id number] [place] [address] 09 Mar, 2014 [facility] [place] [facility] [address] [id number] [place] [address] Mar, [facility] [place] [facility] [address] [id number] [place] [address] Feb, [facility] [place] [facility] [address] [id number] [place] [address] Feb, [facility] [place] [facility] [address] [id number] [place] [address] Feb, [facility] [place] [facility] [address] [id number] [place] [address] Feb, [facility] [place] [facility] [address] [id number] [place] [address] Jan, [facility] [place] [facility] [address] [id number] [place] [address] Jan, [facility] [place] [facility] [address] [id number] [place] [address] Jan, [facility] [place] [facility] [address] [id number] [place] [address] Jan, [facility] [place] [facility] [address] [facility] [id number] [place] [address] Nov, [facility] [place] [facility] [address] [id number] [place] [address] Nov, [facility] [place] [facility] [address] [id number] [place] [address] Nov, [facility] [place] [facility] [address] [id number] [place] [address] Nov, [facility] [place] [facility] [address] [id number] [place] [address] Nov, [facility] [place] [facility] [address] [id number] [place] [address] Nov, [facility] [place] [facility] [address] [id number] [place] [address] Nov, [facility] [place] [facility] [address] [id number] [place] [address] Nov, [facility] [place] [facility] [address] [id number] [place] [address] Nov, [facility] [place] [facility] [address] [id number] [place] [address] Nov, [facility] [place] [facility] [address] [id number] [place] [address] Nov, [facility] [place] [facility] [address] [id number] [place] [address] Nov, [facility] [place] [facility] [address] [id number] [place] [address] Nov, [facility] [place] [facility] [address] [id number] [place] [address] 30 Oct, 2013 [facility] [place] [facility] [address] [id number] [place] [address] 30 Oct, 2013 [facility] [place] [facility] [address] [id number] [place] [address] 26 Oct, 2013 [facility] [place] [facility] [address] [id number] [address] 26 Sep, 2013 [facility] [place] [facility] [address] [id number] [address] 08 Sep, 2013 [facility] [place] [facility] [address] [id number] [place] [address] 08 Sep, 2013 [facility] [place] [facility] [address] [id number] [address] 04 Sep, 2013 [facility] [place] [facility] [address] [id number] [place] [address] 04 Sep, 2013 [facility] [place] [facility] [address] [id number] [place] [address] Oct, 2013 [facility] [place] [facility] [address] [id number] [place] [address] Oct, 2013 [facility] [place] [facility] [address] [id number] [place] [address] Oct, [facility] [place] [facility] [address] [id number] [place] [address] Oct, [facility] [place] [facility] [address] [id number] [place] [address] Sep, [facility] [place] [facility] [address] [id number] [place] [address] Sep, [facility] [place] [facility] [address] [id number] [place] [address] Sep, [facility] [place] [facility] [address] [id number] [place] [address] Sep, [facility] [place] [facility] [address] [id number] [place] [address] Sep, [facility] [place] [facility] [address] [id number] [place] [address] Sep, [facility] [place] [facility] [address] [id number] [place] [address] Sep, [facility] [place] [facility] [address] [id number] [place] [address] Sep, [facility] [place] [facility] [address] [id number] [place] [address] Aug, [facility] [place] [facility] [address] [id number] [place] [address] Aug, [facility] [place] [facility] [address] [id number] [place] [address] Aug, [facility] [place] [facility] [address] [id number] [place] [address] Aug, [facility] [place] [facility] [address] [id number] [place] [address] Jul, [facility] [place] [facility] [address] [id number] [place] [address] Jul, [facility] [place] [facility] [address] [id number] [place] [address] Jul, [facility] [place] [facility] [address] [id number] [place] [address] Jul, [facility] [place] [facility] [address] [id number] [place] [address] Jul, [facility] [place] [facility] [address] [id number] [place] [address] Jul, [facility] [place] [facility] [address] [id number] [place] [address] June, [facility] [place] [facility] [address] [id number] [place] [address] June, [facility] [place] [facility] [address] [id number] [place] [address] June, [facility] [place] [facility] [address] [id number] [place] [address] June, [facility] [place] [facility] [address] [id number] [place] [address] June, [facility] [place] [facility] [address] [id number] [place] [address] June, [facility] [place] [facility] [address] [id number] [place] [address] May, [facility] [place] [facility] [address] [id number] [place] [address] May, [facility] [place] [facility] [address] [id number] [place] [address] May, [facility] [place] [facility] [address] [id number] [place] [address] May, [facility] [place] [facility] [address] [id number] [place] [address] May, [facility] [place] [facility] [address] [id number] [place] [address] May, [facility] [place] [facility] [address] [id number] [place] [address] May, [facility] [place] [facility] [address] [id number] [place] [address] May, [facility] [place] [facility] [address] [id number] [place] [address] May, [facility] [place] [facility] [address] [id number] [place] [address] May, [facility] [place] [facility] [address] [id number] [place] [address] Apr, [facility] [place] [facility] [address] [id number] [place] [address] Apr, [facility] [place] [facility] [address] [id number] [place] [address] 10 Apr, 2013 [facility] [place] [facility] [address] [id number] [place] [address] 10 Apr, 2013 [facility] [place] [facility] [address] [id number] [place] [address] 10 Apr, 2013 [facility] [place] [facility] [address] [id number] [place] [address] 10 Apr, 2013 [facility] [place] [facility] [address] [id number] [place] [address] 10 Apr, 2013 [facility] [place] [facility] [address] [id number] [place] [address] 10 Apr, 2013 [facility] [place] [facility] [address] [id number] [place] [address] Apr, [facility] [place] [facility] [address] [id number] [place] [address] Apr, [facility] [place] [facility] [address] [id number] [place] [address] Apr, [facility] [place] [facility] [address] [id number] [place] [address] Apr, [facility] [place] [facility] [address] [id number] [place] [address] Mar, [facility] [place] [facility] [address] [id number] [place] [address] Mar, [facility] [place] [facility] [address] [id number] [place] [address] Mar, [facility] [place] [facility] [address] [id number] [place] [address] Mar, [facility] [place] [facility] [address] [id number] [place] [address] Feb, [facility] [place] [facility] [address] [id number] [place] [address] Feb, [facility] [place] [facility] [address] [id number] [place] [address] Feb, [facility] [place] [facility] [address] [id number] [place] [address] Feb, [facility] [place] [facility] [address] [id number] [place] [address] Feb, [facility] [place] [facility] [address] [id number] [place] [address] Feb, [facility] [place] [facility] [address] [id number] [place] [address] Feb, [facility] [place] [facility] [address] [id number] [place] [address] Feb, [facility] [place] [facility] [address] [id number] [place] [address] Feb, [facility] [address] [id number] [place] [address] Feb, [facility] [place] [facility] [address] [id number] [place] [address] Jan, [facility] [place] [facility] [address] [id number] [place] [address] Jan, [facility] [place] [facility] [address] [id number] [place] [address] Jan, [facility] [place] [facility] [address] [id number] [place] [address] Jan, [facility] [place] [facility] [address] [id number] [place] [address] Jan, [facility] [place] [facility] [address] [id number] [place] [address] Jan, [facility] [place] [facility] [address] [id number] [place] [address] Jan, [facility] [place] [facility] [address] [id number] [place] [address] Jan, [facility] [place] [facility] [address] [id number] [address] Jan, [facility] [place] [facility] [address] [id number] [place] [address] Dec, [facility] [place] [facility] [address] [id number] [address] Dec, [facility] [place] [facility] [address] [id number] [place] [address] Dec, [facility] [place] [facility] [address] [id number] [address] Dec, [facility] [place] [facility] [address] [id number] [place] [address] Nov, [facility] [place] [facility] [address] [id number] [place] [address] Nov, [facility] [place] [facility] [address] [id number] [place] [address] Nov, [facility] [place] [facility] [address] [id number] [place] [address] Nov, [facility] [place] [facility] [address] [id number] [place] [address] Nov, [facility] [place] [facility] [address] [id number] [place] [address] Nov, [facility] [place] [facility] [address] [id number] [place] [address] Oct, [facility] [place] [facility] [address] [id number] [place] [address] Oct, [facility] [place] [facility] [address] [id number] [place] [address] Sep, [facility] [place] [facility] [address] [id number] [place] [address] Sep, [facility] [place] [facility] [address] [id number] [place] [address] Sep, [facility] [place] [facility] [address] [id number] [place] [address] Sep, [facility] [place] [facility] [address] [id number] [place] [address] Aug, [facility] [place] [facility] [address] [id number] [place] [address] Aug, [facility] [place] [facility] [address] [id number] [place] [address] Aug, [facility] [place] [facility] [address] [id number] [place] [address] Jul, [facility] [place] [facility] [address] [id number] [place] [address] Jul, [facility] [place] [facility] [address] [id number] [place] [address] Jul, [facility] [address] [id number] [place] [address] Jul, [facility] [address] [id number] [place] [address] June, [facility] [address] [id number] [place] [address] June, [facility] [address] [id number] [place] [address] May, [facility] [address] [id number] [place] [address] May, [facility] [address] [id number] [place] [address] Apr, [facility] [address] [id number] [place] [address] Apr, [facility] [address] [id number] [place] [address] Mar, [facility] [address] [id number] [place] [address] Mar, [facility] [address] [id number] [place] [address] Feb, [facility] [address] [id number] [place] [address] Feb, [facility] [place] [facility] [address] [id number] [place] [address] Feb, [facility] [place] [facility] [address] [id number] [place] [address] Feb, [facility] [place] [facility] [address] [id number] [place] [address] Feb, [facility] [address] [id number] [place] [address] 16 Feb, 2012 [facility] [place] [facility] [address] [id number] [place] [address] 16 Feb, 2012 [facility] [place] [facility] [address] [id number] [place] [address] 14 Feb, 2012 [facility] [place] [facility] [address] [id number] [place] [address] Feb, [facility] [place] [facility] [address] [id number] [place] [address] Jan, [facility] [place] [facility] [address] [id number] [place] [address] Jan, [facility] [place] [facility] [address] [id number] [place] [address] Jan, [facility] [place] [facility] [address] [id number] [place] [address] Jan, [facility] [place] [facility] [address] [id number] [place] [address] Dec, [facility] [place] [facility] [address] [id number] [place] [address] Dec, [facility] [place] [facility] [address] [id number] [place] [address] Dec, [facility] [place] [facility] [address] [id number] [place] [address] Dec, [facility] [place] [facility] [address] [id number] [place] [address] Oct, [facility] [place] [facility] [address] [id number] [place] [address] Sep, [facility] [place] [facility] [address] [id number] [place] [address] Sep, [facility] [place] [facility] [address] [id number] [place] [address] Aug, [facility] [place] [facility] [address] [address] Jul, [facility] [address] [address] June, [facility] [address] [address] June, [facility] [id number] [place] [address] May, [facility] [id number] [place] [address] Apr, [facility] [id number] [place] [address] Mar, [facility] [id number] [place] [phone] Mar, [facility] [id number] [place] [phone] Feb, [facility] [id number] [address] Dec, [facility] [id number] [address] Nov, [facility] [id number] [address] Sep, [facility] [id number] [phone] Aug, IMMUNIZATIONS No Known Immunizations SOCIAL HISTORY Never Assessed REASON FOR VISIT [facility] [place] PLAN OF CARE VITAL SIGNS MEDICATIONS Medication Instructions Dosage Frequency Start Date End Date Duration Status Seroquel XR 400 mg 1 tablet by Oral route 1 time per day for 30 day(s) hs Feb, Active Vistaril 50 mg take 1 capsule by Oral route 3 times per day PRN May, Active conjugated estrogens 0.625 mg/gram insert 0.5 g by Vaginal route 1 time per weekdisp: 42.5 grams Feb, Active Albuterol Sulfate 90 mcg/actuation 2 puffs by Inhalation route every 6 hours as needed PRN cough or wheezing Nov, Active Zithromax Z-Siva 250 mg 2 tablet by Oral route 1 time per day for 1 days then take 1 tab daily on days 2-5 Sep, Active Loratadine 10 mg 1 tablet by Oral route 1 time per day May, Active Gabapentin 300 mg 1 capsule by Oral route 3 times per day Apr, Active Flagyl 500 mg 1 tablet by Oral route 2 times per day for 7 days Feb, Active RESULTS No Results PROCEDURES No Known procedures INSTRUCTIONS MEDICATIONS ADMINISTERED No Known Medications MEDICAL (GENERAL) HISTORY Type Description Date Medical History asthma Medical History headache Medical History chronic pain-low back with spasms Medical History anxiety Medical History depression Hospitalization History childbirth x 4
--- OUTSIDE RECORDS SUMMARY | 2018-06-29 20:39 | XMS REPORT ---
Author Author Migration, Doctor Organization [facility] Address Unknown Phone Unavailable Care Team Providers Care Carroter Name Role Phone Migration, Doctor Unavailable Unavailable PROBLEMS Type Condition ICD9-CM Code [id number] Code Onset Dates Condition Status SNOMED Code Problem Other and unspecified hyperlipidemia 272.4 Active 92180352 Problem Asthma J45.909 Active 594311336 Problem Alcoholism F10.20 Active 4092883 Problem Arthritis M19.90 Active 4568646 Problem Other chronic pain G89.29 Active 85405367 Problem Bipolar disorder F31.9 Active 03275118 Problem Closed fracture of shaft of right fibula, unspecified fracture morphology, initial encounter S82.401A Active 50418050 Problem Major depressive disorder, single episode F32.9 Active 59808752 Problem Arthropathy, unspecified M12.9 Active 839101152 ALLERGIES No Information ENCOUNTERS Encounter Location Date Diagnosis [facility] [id number] [place] [address] May, [place] [address] [address] Apr, [facility] [id number] [place] [address] Apr, Injury of right ankle, initial encounter S99.911A and Encounter for immunization Z23 [facility] [id number] [place] [address] Dec, [place] [address] [address] Nov, Pain in right ankle and joints of right foot M25.571 ; Other chronic pain G89.29 and Post-traumatic arthritis of right ankle M19.171 [place] [address] [address] Oct, Arthritis M19.90 [facility] [address] [address] 13 Aug, 2016 Arthritis M19.90 [facility] [id number] [place] [address] Aug, [facility] [address] [address] Jul, [facility] [id number] [place] [address] June, Arthropathy, unspecified M12.9 [facility] [id number] [place] [address] May, Asthma J45.909 and Major depressive disorder, single episode F32.9 [facility] [id number] [place] [address] 16 Mar, 2016 Closed fracture of shaft of right fibula, unspecified fracture morphology, initial encounter S82.401A [facility] [id number] [place] [address] Feb, [facility] [id number] [place] [address] Feb, [facility] [address] [address] Nov, [facility] [address] [place] [address] Nov, Bipolar disorder F31.9 ; Encounter for immunization Z23 and Asthma J45.909 [facility] [address], [place] [address] Aug, [facility] [id number] [place] [address] May, [facility] [address], [place] [address] Apr, [facility] [id number] [place] [address] Apr, [facility] [id number] [place] [address] Apr, URI (upper respiratory infection) J06.9 and Bipolar disorder F31.9 [facility] [id number] [place] [address] Feb, [facility] [address] [address] Feb, Asthma J45.909 and Alcoholism F10.20 [facility] [address] [address] Jan, [facility] [address] [address] Jan, [facility] [id number] [place] [address] Jan, [facility] [id number] [place] [address] Nov, Alcoholism F10.20 and Anxiety F41.9 [facility] [id number] [place] [address] Jul, Anxiety 300.00 and Arthropathy 716.90 [facility] [id number] [place] [address] Jul, [facility] [id number] [place] [address] Jul, Anxiety state 300.00 [facility] [id number] [place] [address] May, [facility] [id number] [place] [address] May, [facility] [id number] [place] [address] Apr, [facility] [address] [place] [address] Apr, [facility] [place] [facility] [address] [id number] [place] [address] Mar, [facility] [place] [facility] [address] [id number] [place] [address] Mar, [facility] [place] [facility] [address] [id number] [place] [address] Feb, [facility] [place] [facility] [address] [id number] [place] [address] Feb, [facility] [place] [facility] [address] [id number] [place] [address] Feb, [facility] [place] [facility] [address] [id number] [place] [address] Feb, [facility] [place] [facility] [address] [id number] [place] [address] Jan, [facility] [place] [facility] [address] [id number] [place] [address] Jan, [facility] [place] [facility] [address] [id number] [place] [address] Jan, [facility] [place] [facility] [address] [id number] [place] [address] Jan, [facility] [place] [facility] [address] [id number] [place] [address] Nov, [facility] [place] [facility] [address] [id number] [place] [address] Nov, [facility] [place] [facility] [address] [id number] [place] [address] Nov, [facility] [place] [facility] [address] [id number] [place] [address] Nov, [facility] [place] [facility] [address] [id number] [place] [address] Nov, [facility] [place] [facility] [address] [id number] [place] [address] Nov, [facility] [place] [facility] [address] [id number] [place] [address] Nov, [facility] [place] [facility] [address] [id number] [place] [address] Nov, [facility] [place] [facility] [address] [id number] [place] [address] Nov, [facility] [place] [facility] [address] [id number] [place] [address] Nov, [facility] [place] [facility] [address] [id number] [place] [address] Nov, [facility] [place] [facility] [address] [id number] [place] [address] Nov, [facility] [place] [facility] [address] [id number] [place] [address] Nov, [facility] [place] [facility] [address] [id number] [place] [address] 30 Oct, 2013 [facility] [place] [facility] [address] [id number] [place] [address] 30 Oct, 2013 [facility] [place] [facility] [address] [id number], [place] [address] 26 Sep, 2013 [facility] [place] [facility] [address] [id number], [place] [address] 26 Sep, 2013 [facility] [place] [facility] [address] [id number] [place] [address] 08 Sep, 2013 [facility] [place] [facility] [address] [id number], [place] [address] 08 Sep, 2013 [facility] [place] [facility] [address] [id number] [place] [address] 04 Oct, 2013 [facility] [place] [facility] [address] [id number] [place] [address] Oct, 2013 [facility] [place] [facility] [address] [id number] [place] [address] Oct, 2013 [facility] [place] [facility] [address] [id number] [place] [address] Oct, 2013 [facility] [place] [facility] [address] [id number] [place] [address] Oct, 2013 [facility] [place] [facility] [address] [id number] [place] [address] Oct, 2013 [facility] [place] [facility] [address] [id number] [place] [address] Sep, [facility] [place] [facility] [address] [id number] [place] [address] Sep, [facility] [place] [facility] [address] [id number] [place] [address] Sep, [facility] [place] [facility] [address] [id number] [place] [address] Sep, [facility] [place] [facility] [address] [id number] [place] [address] Sep, [facility] [place] [facility] [address] [id number] [place] [address] Sep, [facility] [place] [facility] [address] [id number] [place] [address] Sep, [facility] [place] [facility] [address] [id number] [place] [address] Sep, [facility] [place] [facility] [address] [id number] [place] [address] Aug, [facility] [place] [facility] [address] [id number] [place] [address] Aug, [facility] [place] [facility] [address] [id number] [place] [address] Aug, [facility] [place] [facility] [address] [id number] [place] [address] Aug, [facility] [place] [facility] [address] [id number] [place] [address] Jul, [facility] [place] [facility] [address] [id number] [place] [address] Jul, [facility] [place] [facility] [address] [id number] [place] [address] Jul, [facility] [place] [facility] [address] [id number] [place] [address] Jul, [facility] [place] [facility] [address] [id number] [place] [address] Jul, [facility] [place] [facility] [address] [id number] [place] [address] Jul, [facility] [place] [facility] [address] [id number] [place] [address] June, [facility] [place] [facility] [address] [id number] [place] [address] June, [facility] [place] [facility] [address] [id number] [place] [address] June, [facility] [place] [facility] [address] [id number] [place] [address] June, [facility] [place] [facility] [address] [id number] [place] [address] June, [facility] [place] [facility] [address] [id number] [place] [address] June, [facility] [place] [facility] [address] [id number] [place] [address] May, [facility] [place] [facility] [address] [id number] [place] [address] May, [facility] [place] [facility] [address] [id number] [place] [address] May, [facility] [place] [facility] [address] [id number] [place] [address] May, [facility] [place] [facility] [address] [id number] [place] [address] May, [facility] [place] [facility] [address] [id number] [place] [address] May, [facility] [place] [facility] [address] [id number] [place] [address] May, [facility] [place] [facility] [address] [id number] [place] [address] May, [facility] [place] [facility] [address] [id number] [place] [address] May, [facility] [place] [facility] [address] [id number] [place] [address] May, [facility] [place] [facility] [address] [id number] [place] [address] Apr, [facility] [place] [facility] [address] [id number] [place] [address] Apr, [facility] [place] [facility] [address] [id number] [place] [address] Apr, [facility] [place] [facility] [address] [id number] [place] [address] Apr, [facility] [place] [facility] [address] [id number] [place] [address] 10 Apr, 2013 [facility] [place] [facility] [address] [id number] [place] [address] Apr, [facility] [place] [facility] [address] [id number] [place] [address] Apr, [facility] [place] [facility] [address] [id number] [place] [address] Apr, [facility] [place] [facility] [address] [id number] [place] [address] Apr, [facility] [place] [facility] [address] [id number] [place] [address] Apr, [facility] [place] [facility] [address] [id number] [place] [address] Apr, [facility] [place] [facility] [address] [id number] [place] [address] Apr, [facility] [place] [facility] [address] [id number] [place] [address] Mar, [facility] [place] [facility] [address] [id number] [place] [address] Mar, [facility] [place] [facility] [address] [id number] [place] [address] Mar, [facility] [place] [facility] [address] [id number] [place] [address] Mar, [facility] [place] [facility] [address] [id number] [place] [address] Feb, [facility] [place] [facility] [address] [id number] [place] [address] Feb, [facility] [place] [facility] [address] [id number] [place] [address] Feb, [facility] [place] [facility] [address] [id number] [place] [address] Feb, [facility] [place] [facility] [address] [id number] [place] [address] Feb, [facility] [place] [facility] [address] [id number] [place] [address] Feb, [facility] [place] [facility] [address] [id number] [place] [address] Feb, [facility] [place] [facility] [address] [id number] [place] [address] Feb, [facility] [address] [id number] [place] [address] Feb, [facility] [place] [facility] [address] [id number] [place] [address] Feb, [facility] [place] [facility] [address] [id number] [place] [address] Jan, [facility] [place] [facility] [address] [id number] [place] [address] Jan, [facility] [place] [facility] [address] [id number] [place] [address] Jan, [facility] [place] [facility] [address] [id number] [place] [address] Jan, [facility] [place] [facility] [address] [id number] [place] [address] Jan, [facility] [place] [facility] [address] [id number] [place] [address] Jan, [facility] [place] [facility] [address] [id number] [place] [address] Jan, [facility] [place] [facility] [address] [id number] [place] [address] Jan, [facility] [place] [facility] [address] [id number], [place] [address] Jan, [facility] [place] [facility] [address] [id number], [place] [address] Dec, [facility] [place] [facility] [address] [id number] [place] [address] Dec, [facility] [place] [facility] [address] [id number], [place] [address] Dec, [facility] [place] [facility] [address] [id number] [place] [address] Dec, [facility] [place] [facility] [address] [id number] [place] [address] Nov, [facility] [place] [facility] [address] [id number] [place] [address] Nov, [facility] [place] [facility] [address] [id number] [place] [address] Nov, [facility] [place] [facility] [address] [id number] [place] [address] Nov, [facility] [place] [facility] [address] [id number] [place] [address] Nov, [facility] [place] [facility] [address] [id number] [place] [address] Nov, [facility] [place] [facility] [address] [id number] [place] [address] Oct, [facility] [place] [facility] [address] [id number] [place] [address] Oct, [facility] [place] [facility] [address] [id number] [place] [address] Sep, [facility] [place] [facility] [address] [id number] [place] [address] Sep, [facility] [place] [facility] [address] [id number] [place] [address] Sep, [facility] [place] [facility] [address] [id number] [place] [address] Sep, [facility] [place] [facility] [address] [id number] [place] [address] Aug, [facility] [place] [facility] [address] [id number] [place] [address] Aug, [facility] [place] [facility] [address] [id number] [place] [address] Aug, [facility] [place] [facility] [address] [id number] [place] [address] Jul, [facility] [place] [facility] [address] [id number] [place] [address] Jul, [facility] [address] [id number] [place] [address] Jul, [facility] [address] [id number] [place] [address] Jul, [facility] [address] [id number] [place] [address] June, [facility] [address] [id number] [place] [address] June, [facility] [address] [id number] [place] [address] May, [facility] [address] [id number] [place] [address] May, [facility] [address] [id number] [place] [address] Apr, [facility] [address] [id number] [place] [address] Apr, [facility] [address] [id number] [place] [address] Mar, [facility] [address] [id number] [place] [address] Mar, [facility] [address] [id number] [place] [address] Feb, [facility] [place] [facility] [address] [id number] [place] [address] Feb, [facility] [place] [facility] [address] [id number] [place] [address] Feb, [facility] [place] [facility] [address] [id number] [place] [address] Feb, [facility] [place] [facility] [address] [id number] [place] [address] 17 Feb, 2012 [facility] [place] [facility] [address] [id number] [place] [address] 16 Feb, 2012 [facility] [place] [facility] [address] [id number] [place] [address] 16 Feb, 2012 [facility] [place] [facility] [address] [id number] [place] [address] 14 Feb, 2012 [facility] [place] [facility] [address] [id number] [place] [address] 11 Feb, 2012 [facility] [place] [facility] [address] [id number] [place] [address] Jan, [facility] [place] [facility] [address] [id number] [place] [address] Jan, [facility] [place] [facility] [address] [id number] [place] [address] Jan, [facility] [place] [facility] [address] [id number] [place] [address] Jan, [facility] [place] [facility] [address] [id number] [place] [address] Dec, [facility] [place] [facility] [address] [id number] [place] [address] Dec, [facility] [place] [facility] [address] [id number] [place] [address] Dec, [facility] [place] [facility] [address] [id number] [place] [address] Dec, [facility] [place] [facility] [address] [id number] [place] [address] Oct, [facility] [place] [facility] [address] [id number] [place] [address] Sep, [facility] [place] [facility] [address] [id number] [place] [address] Sep, [facility] [place] [facility] [id number] [address] Aug, [facility] [id number] [place] [address] Jul, [facility] [id number] [place] [address] June, [facility] [id number] [place] [address] June, [facility] [id number] [place] [address] May, [facility] [id number] [place] [id number] Apr, [facility] [id number] [place] [address] Mar, [facility] [id number] [place] [address] Mar, [facility] [id number] [place] [address] Feb, [facility] [id number] [place] [address] Dec, [facility] [id number] [address] Nov, [facility] [id number] [place] [address] Sep, [facility] [id number] [address] Aug, IMMUNIZATIONS No Known Immunizations SOCIAL HISTORY Never Assessed [place]AS[place] [place] VITAL SIGNS MEDICATIONS Unknown Medications RESULTS No Results PROCEDURES No Known procedures INSTRUCTIONS MEDICATIONS ADMINISTERED No Known Medications MEDICAL (GENERAL) HISTORY Type Description Date Medical History asthma Medical History headache Medical History chronic pain-low back with spasms Medical History anxiety Medical History depression Hospitalization History childbirth x 4
--- OUTSIDE RECORDS SUMMARY | 2018-06-29 20:39 | XMS REPORT ---
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 Name Role Phone Migration, Doctor Unavailable Unavailable PROBLEMS Type Condition ICD9-CM Code [id number] Code Onset Dates Condition Status SNOMED Code Problem Other and unspecified hyperlipidemia 272.4 Active 43754366 Problem Asthma J45.909 Active 477108723 Problem Alcoholism F10.20 Active 7009558 Problem Arthritis M19.90 Active 6550202 Problem Other chronic pain G89.29 Active 23001674 Problem Bipolar disorder F31.9 Active 55677973 Problem Closed fracture of shaft of right fibula, unspecified fracture morphology, initial encounter S82.401A Active 22671425 Problem Major depressive disorder, single episode F32.9 Active 41792544 Problem Arthropathy, unspecified M12.9 Active 350580263 ALLERGIES No Information ENCOUNTERS Encounter Location Date Diagnosis [place] [id number] [place] [address] May, [place] [address] [address] Apr, [place] [id number] [place] [address] Apr, Injury of right ankle, initial encounter S99.911A and Encounter for immunization Z23 [place] [id number] [place] [address] Dec, [place] [address] [address] Nov, Pain in right ankle and joints of right foot M25.571 ; Other chronic pain G89.29 and Post-traumatic arthritis of right ankle M19.171 [place] [address] [address] Oct, Arthritis M19.90 [facility] [address] [address] 13 Aug, 2016 Arthritis M19.90 [facility] [id number] [place] [address] Aug, [facility] [address] [address] Jul, [facility] [id number] [place] [address] June, Arthropathy, unspecified M12.9 [facility] [id number] [place] [address] May, Asthma J45.909 and Major depressive disorder, single episode F32.9 [facility] [id number] [place] [address] 16 Mar, 2016 Closed fracture of shaft of right fibula, unspecified fracture morphology, initial encounter S82.401A [facility] [id number] [place] [address] Feb, [facility] [id number] [place] [address] Feb, [facility] [address] [address] Nov, [facility] [id number] [place] [address] Nov, Bipolar disorder F31.9 ; Encounter for immunization Z23 and Asthma J45.909 [facility] [address] [address] Aug, [facility] [id number] [place] [address] May, [facility] [address] [address] Apr, [facility] [id number] [place] [address] Apr, [facility] [id number] [place] [address] Apr, URI (upper respiratory infection) J06.9 and Bipolar disorder F31.9 [facility] [id number] [place] [address] Feb, [facility] [address] [address] Feb, Asthma J45.909 and Alcoholism F10.20 [facility] [address] [address] Jan, [facility] [address] [address] Jan, [facility] [id number] [place] [address] Jan, [facility] [id number] [place] [address] Nov, Alcoholism F10.20 and Anxiety F41.9 [facility] [id number] [place] [address] Jul, Anxiety 300.00 and Arthropathy 716.90 [facility] [id number] [place] [address] Jul, [facility] [id number] [place] [address] Jul, Anxiety state 300.00 [facility] [id number] [place] [address] May, [facility] [id number] [place] [address] May, [facility] [id number] [place] [address] Apr, [facility] [address] [address] Apr, [facility] [place] [facility] [address] [id number] [place] [address] Mar, [facility] [place] [facility] [address] [id number] [place] [address] Mar, [facility] [place] [facility] [address] [id number] [place] [address] Feb, [facility] [place] [facility] [address] [id number] [place] [address] Feb, [facility] [place] [facility] [address] [id number] [place] [address] Feb, [facility] [place] [facility] [address] [id number] [place] [address] Feb, [facility] [place] [facility] [address] [id number] [place] [address] Jan, [facility] [place] [facility] [address] [id number] [place] [address] Jan, [facility] [place] [facility] [address] [id number] [place] [address] Jan, [facility] [place] [facility] [address] [id number] [place] [address] Jan, [facility] [place] [facility] [address] [id number] [place] [address] Nov, [facility] [place] [facility] [address] [id number] [place] [address] Nov, [facility] [place] [facility] [address] [id number] [place] [address] Nov, [facility] [place] [facility] [address] [id number] [place] [address] Nov, [facility] [place] [facility] [address] [id number] [place] [address] Nov, [facility] [place] [facility] [address] [id number] [place] [address] Nov, [facility] [place] [facility] [address] [id number] [place] [address] Nov, [facility] [place] [facility] [address] [id number] [place] [address] Nov, [facility] [place] [facility] [address] [id number] [place] [address] Nov, [facility] [place] [facility] [address] [id number] [place] [address] Nov, [facility] [place] [facility] [address] [id number] [place] [address] Nov, [facility] [place] [facility] [address] [id number] [place] [address] Nov, [facility] [place] [facility] [address] [id number] [place] [address] Nov, [facility] [place] [facility] [address] [id number] [place] [address] 30 Oct, 2013 [facility] [place] [facility] [address] [id number] [place] [address] 30 Oct, 2013 [facility] [place] [facility] [address] [id number] [address] 26 Sep, 2013 [facility] [place] [facility] [address] [id number], [place] [address] 26 Sep, 2013 [facility] [place] [facility] [address] [id number] [place] [address] 08 Sep, 2013 [facility] [place] [facility] [address] [id number], [place] [address] 08 Sep, 2013 [facility] [place] [facility] [address] [id number] [place] [address] 04 Oct, 2013 [facility] [place] [facility] [address] [id number] [place] [address] Oct, 2013 [facility] [place] [facility] [address] [id number] [place] [address] Oct, 2013 [facility] [place] [facility] [address] [id number] [place] [address] Oct, 2013 [facility] [place] [facility] [address] [id number] [place] [address] Oct, 2013 [facility] [place] [facility] [address] [id number] [place] [address] Oct, 2013 [facility] [place] [facility] [address] [id number] [place] [address] Sep, [facility] [place] [facility] [address] [id number] [place] [address] Sep, [facility] [place] [facility] [address] [id number] [place] [address] Sep, [facility] [place] [facility] [address] [id number] [place] [address] Sep, [facility] [place] [facility] [address] [id number] [place] [address] Sep, [facility] [place] [facility] [address] [id number] [place] [address] Sep, [facility] [place] [facility] [address] [id number] [place] [address] Sep, [facility] [place] [facility] [address] [id number] [place] [address] Sep, [facility] [place] [facility] [address] [id number] [place] [address] Aug, [facility] [place] [facility] [address] [id number] [place] [address] Aug, [facility] [place] [facility] [address] [id number] [place] [address] Aug, [facility] [place] [facility] [address] [id number] [place] [address] Aug, [facility] [place] [facility] [address] [id number] [place] [address] Jul, [facility] [place] [facility] [address] [id number] [place] [address] Jul, [facility] [place] [facility] [address] [id number] [place] [address] Jul, [facility] [place] [facility] [address] [id number] [place] [address] Jul, [facility] [place] [facility] [address] [id number] [place] [address] Jul, [facility] [place] [facility] [address] [id number] [place] [address] Jul, [facility] [place] [facility] [address] [id number] [place] [address] June, [facility] [place] [facility] [address] [id number] [place] [address] June, [facility] [place] [facility] [address] [id number] [place] [address] June, [facility] [place] [facility] [address] [id number] [place] [address] June, [facility] [place] [facility] [address] [id number] [place] [address] June, [facility] [place] [facility] [address] [id number] [place] [address] June, [facility] [place] [facility] [address] [id number] [place] [address] May, [facility] [place] [facility] [address] [id number] [place] [address] May, [facility] [place] [facility] [address] [id number] [place] [address] May, [facility] [place] [facility] [address] [id number] [place] [address] May, [facility] [place] [facility] [address] [id number] [place] [address] May, [facility] [place] [facility] [address] [id number] [place] [address] May, [facility] [place] [facility] [address] [id number] [place] [address] May, [facility] [place] [facility] [address] [id number] [place] [address] May, [facility] [place] [facility] [address] [id number] [place] [address] May, [facility] [place] [facility] [address] [id number] [place] [address] May, [facility] [place] [facility] [address] [id number] [place] [address] Apr, [facility] [place] [facility] [address] [id number] [place] [address] Apr, [facility] [place] [facility] [address] [id number] [place] [address] Apr, [facility] [place] [facility] [address] [id number] [place] [address] Apr, [facility] [place] [facility] [address] [id number] [place] [address] 10 Apr, 2013 [facility] [place] [facility] [address] [id number] [place] [address] Apr, [facility] [place] [facility] [address] [id number] [place] [address] Apr, [facility] [place] [facility] [address] [id number] [place] [address] Apr, [facility] [place] [facility] [address] [id number] [place] [address] Apr, [facility] [place] [facility] [address] [id number] [place] [address] Apr, [facility] [place] [facility] [address] [id number] [place] [address] Apr, [facility] [place] [facility] [address] [id number] [place] [address] Apr, [facility] [place] [facility] [address] [id number] [place] [address] Mar, [facility] [place] [facility] [address] [id number] [place] [address] Mar, [facility] [place] [facility] [address] [id number] [place] [address] Mar, [facility] [place] [facility] [address] [id number] [place] [address] Mar, [facility] [place] [facility] [address] [id number] [place] [address] Feb, [facility] [place] [facility] [address] [id number] [place] [address] Feb, [facility] [place] [facility] [address] [id number] [place] [address] Feb, [facility] [place] [facility] [address] [id number] [place] [address] Feb, [facility] [place] [facility] [address] [id number] [place] [address] Feb, [facility] [place] [facility] [address] [id number] [place] [address] Feb, [facility] [place] [facility] [address] [id number] [place] [address] Feb, [facility] [place] [facility] [address] [id number] [place] [address] Feb, [facility] [address] [id number] [place] [address] Feb, [facility] [place] [facility] [address] [id number] [place] [address] Feb, [facility] [place] [facility] [address] [id number] [place] [address] Jan, [facility] [place] [facility] [address] [id number] [place] [address] Jan, [facility] [place] [facility] [address] [id number] [place] [address] Jan, [facility] [place] [facility] [address] [id number] [place] [address] Jan, [facility] [place] [facility] [address] [id number] [place] [address] Jan, [facility] [place] [facility] [address] [id number] [place] [address] Jan, [facility] [place] [facility] [address] [id number] [place] [address] Jan, [facility] [place] [facility] [address] [id number] [place] [address] Jan, [facility] [place] [facility] [address] [id number], [place] [address] Jan, [facility] [place] [facility] [address] [id number], [place] [address] Dec, [facility] [place] [facility] [address] [id number] [place] [address] Dec, [facility] [place] [facility] [address] [id number], [place] [address] Dec, [facility] [place] [facility] [address] [id number] [place] [address] Dec, [facility] [place] [facility] [address] [id number] [place] [address] Nov, [facility] [place] [facility] [address] [id number] [place] [address] Nov, [facility] [place] [facility] [address] [id number] [place] [address] Nov, [facility] [place] [facility] [address] [id number] [place] [address] Nov, [facility] [place] [facility] [address] [id number] [place] [address] Nov, [facility] [place] [facility] [address] [id number] [place] [address] Nov, [facility] [place] [facility] [address] [id number] [place] [address] Oct, [facility] [place] [facility] [address] [id number] [place] [address] Oct, [facility] [place] [facility] [address] [id number] [place] [address] Sep, [facility] [place] [facility] [address] [id number] [place] [address] Sep, [facility] [place] [facility] [address] [id number] [place] [address] Sep, [facility] [place] [facility] [address] [id number] [place] [address] Sep, [facility] [place] [facility] [address] [id number] [place] [address] Aug, [facility] [place] [facility] [address] [id number] [place] [address] Aug, [facility] [place] [facility] [address] [id number] [place] [address] Aug, [facility] [place] [facility] [address] [id number] [place] [address] Jul, [facility] [place] [facility] [address] [id number] [place] [address] Jul, [facility] [address] [id number] [place] [address] Jul, [facility] [address] [id number] [place] [address] Jul, [facility] [address] [id number] [place] [address] June, [facility] [address] [id number] [place] [address] June, [facility] [address] [id number] [place] [address] May, [facility] [address] [id number] [place] [address] May, [facility] [address] [id number] [place] [address] Apr, [facility] [address] [id number] [place] [address] Apr, [facility] [address] [id number] [place] [address] Mar, [facility] [address] [id number] [place] [address] Mar, [facility] [address] [id number] [place] [address] Feb, [facility] [place] [facility] [address] [id number] [place] [address] Feb, [facility] [place] [facility] [address] [id number] [place] [address] Feb, [facility] [place] [facility] [address] [id number] [place] [address] Feb, [facility] [place] [facility] [address] [id number] [place] [address] 17 Feb, 2012 [facility] [place] [facility] [address] [id number] [place] [address] 16 Feb, 2012 [facility] [place] [facility] [address] [id number] [place] [address] 16 Feb, 2012 [facility] [place] [facility] [address] [id number] [place] [address] 14 Feb, 2012 [facility] [place] [facility] [address] [id number] [place] [address] 11 Feb, 2012 [facility] [place] [facility] [address] [id number] [place] [address] Jan, [facility] [place] [facility] [address] [id number] [place] [address] Jan, [facility] [place] [facility] [address] [id number] [place] [address] Jan, [facility] [place] [facility] [address] [id number] [place] [address] Jan, [facility] [place] [facility] [address] [id number] [place] [address] Dec, [facility] [place] [facility] [address] [id number] [place] [address] Dec, [facility] [place] [facility] [address] [id number] [place] [address] Dec, [facility] [place] [facility] [address] [id number] [place] [address] Dec, [facility] [place] [facility] [address] [id number] [place] [address] Oct, [facility] [place] [facility] [address] [id number] [place] [address] Sep, [facility] [place] [facility] [address] [id number] [place] [address] Sep, [facility] [place] [facility] [id number] [address] Aug, [facility] [id number] [address] Jul, [facility] [id number] [address] June, [facility] [id number] [address] June, [facility] [id number] [address] May, [facility] [id number] [place] [address] Apr, [facility] [id number] [address] Mar, [facility] [id number] [place] [address] Mar, [facility] [id number] [address] Feb, [facility] [id number] [place] [address] Dec, [facility] [id number] [address] Nov, [facility] [id number] [place] [address] Sep, [facility] [id number] [address] Aug, IMMUNIZATIONS No Known Immunizations SOCIAL HISTORY Never Assessed REASON FOR VISIT EMR-[facility] [place]AN OF CARE VITAL SIGNS MEDICATIONS Unknown Medications RESULTS No Results PROCEDURES No Known procedures INSTRUCTIONS MEDICATIONS ADMINISTERED No Known Medications MEDICAL (GENERAL) HISTORY Type Description Date Medical History asthma Medical History headache Medical History chronic pain-low back with spasms Medical History anxiety Medical History depression Hospitalization History childbirth x 4
--- NOTE | 2018-06-29 20:40 | ED Trauma-Multisystem ---
General Chief Complaint: Trauma-Non Activation Stated Complaint: FALL Source of Information: Patient Exam Limitations: No Limitations History of Present Illness Date Seen by Provider: June 29, 2018 Time Seen by Provider: 20:40 Initial Comments 63 year old female who was brought to the emergency room by [facility] for complains of stepping off of a curb and twisting her right ankle causing her to fall to the ground striking the right side of her face on the pavement, She denies loc and was ambulatory at the scene. She reports she has drank 4 beers toning. She is alert and oriented and ambulates with out difficulty on arrival to the emergency room. Occurred: Just Prior to Arrival Pain/Injury Location: Face Loss of Consciousness: No Loss of Consciousness Associated Symptoms (Fall): Denies Symptoms Allergies and Home Medications Allergies Coded Allergies: No Known Drug Allergies (Unverified , 07/20/12) Home Medications Aspirin 81 Mg Tablet.dr, 81 MG PO DAILY, (Reported) Buspirone HCl 10 Mg Tablet, 10 MG PO BID, (Reported) Cefpodoxime Proxetil 200 Mg Tablet, 200 MG PO BID Prescribed by: FINESSE DESAI on 05/04/15 1211 Diclofenac Sodium 75 Mg Tablet.dr, 75 MG PO BID, (Reported) Furosemide 40 Mg Tablet, 40 MG PO DAILY, (Reported) Gabapentin 300 Mg Capsule, 300 MG PO TID, (Reported) Hydrocodone/Acetaminophen 1 Each Tablet, 1 EACH PO Q4H PRN for PAIN Prescribed by: LI LOPEZ on 03/03/16 1620 Levomilnacipran Hydrochloride 80 Mg Cap.sa.24h, 80 MG PO DAILY, (Reported) Loratadine 10 Mg Tablet, 10 MG PO DAILY, (Reported) Lorazepam 0.5 Mg Tablet, 0.5 MG PO DAILY PRN for ANXIETY, (Reported) Multivitamin 1 Each Tablet, 1 TAB PO DAILY, (Reported) Potassium Chloride 20 Meq Tab.er.prt, 20 MEQ PO DAILY, (Reported) Quetiapine Fumarate 100 Mg Tablet, 100 MG PO HS, (Reported) Tizanidine HCl 4 Mg Tablet, 4 MG PO TID PRN for MUSCLE SPASMS, (Reported) Patient Home Medication List Home Medication List Reviewed: Yes Review of Systems Review of Systems Constitutional: see HPI; No chills, No fever Skin: see HPI, other (abrasions to right side of face. ) Psychiatric/Neurological: No Symptoms Reported All Other Systems Reviewed Negative Unless Noted: Yes Past Higsvyc-Zbgzxu-Xsracc Hx Past Med/Social Hx: Reviewed Nursing Past Med/Soc Hx Patient Social History Alcohol Beverage of Choice: Beer, Whiskey, [place] Drug of Choice: CANNIBUS Type Used: Cigarettes 2nd Hand Smoke Exposure: Yes Recent Foreign Travel: No Contact w/Someone Who Travel: No Recent Hopitalizations: No Immunizations Up To Date Tetanus Booster (TDap): Unknown PED Vaccines UTD: No Seasonal Allergies Seasonal Allergies: No Past Medical History Surgeries: Yes (CYST ON OVARY) Respiratory: Yes Sleep Apnea, COPD Currently Using CPAP: No Currently Using BIPAP: No Cardiac: No Neurological: Yes Reproductive Disorders: No Female Reproductive Disorders: Denies Sexually Transmitted Disease: No HIV/AIDS: No Genitourinary: No Gastrointestinal: No Musculoskeletal: Yes (ANKLE FRACTURE) Arthritis, Chronic Back Pain Endocrine: No HEENT: No Cancer: No Psychosocial: Yes (alcoholism) Sleep Difficulties, Anxiety, Suicide Attempts, Bipolar, Depression Integumentary: No Blood Disorders: No Family Medical History Reviewed Nursing Family Hx Alcoholism 19 FATHER G8 BROTHER G8 BROTHER G8 BROTHER G8 SISTER G8 SISTER FH: brain cancer G8 SISTER Neoplasm 19 MOTHER No Pertinent Family Hx Physical Exam Vital Signs Vital Signs - First Documented 06/29/18 20:31 Temp 97.3 Pulse 82 Resp 20 B/P (MAP) 116/73 (87) Pulse Ox 97 O2 Delivery Room Air Height, Weight, BMI Height: 5'5.00" Weight: 100lbs. 8.0oz. [id number]; 18.11 BMI Method:Estimated General Appearance: No Apparent Distress, WD/WN Head: Ecchymosis, Tenderness; No Rogers's Sign, No Lacerations, No Raccoon Eyes Eyes: Bilateral Eye Normal Inspection, Bilateral Eye PERRL, Bilateral Eye EOMI Ears, Nose, Throat: Hearing Grossly Normal, No Evidence of ENT Injury, No Dental Injury Neck: Full Range of Motion, Normal Inspection, Non Tender, Supple Cardiovascular: Regular Rate, Rhythm, No Edema, No Gallop, No JVD, No Murmur, Normal Peripheral Pulses Respiratory: Chest Non Tender, Lungs Clear, Normal Breath Sounds, No Accessory Muscle Use, No Respiratory Distress Neurologic/Psychiatric: Alert, Oriented x3, Normal Mood/Affect Skin: Normal Color, Warm/Dry Justin Coma Score Best Eye Response ([place]): (4) Open Spontaneously Best Verbal Response (Just[place]): (5) Oriented Best Motor Response ([place]): (6) Obeys Commands [place] Total: 15 Progress/Results/Core Measures Results/Orders My Orders Orders - JENIFER MULLINS Ct Head/Face/Cervical Wo (06/29/18 20:41) Vital Signs/I&O 06/29/18 06/29/18 20:31 23:20 Temp 97.3 Pulse 82 91 Resp 20 19 B/P (MAP) 116/73 (87) 97/58 (71) Pulse Ox 97 96 O2 Delivery Room Air Room Air Departure Impression Primary Impression: Facial contusion Additional Impression: Fall on same level Disposition: 01 HOME, SELF-CARE Condition: Stable/Unchanged Departure-Patient Inst. Decision time for Depature: 22:56 Referrals: HUMA LOZOYA MD (PCP/Family) Primary Care Physician Patient Instructions: Minor Head Injury (DC) Add. Discharge Instructions: Follow-up with your primary care provider as needed. Return back to the emergency room for worsening symptoms or concerns as needed. Ice to the sore areas at 20 minute intervals. All discharge instructions reviewed with patient and/or family. Voiced understanding. JENIFER MULLINS June 29, 2018 20:40
--- OUTSIDE RECORDS SUMMARY | 2018-06-29 20:45 | XMS REPORT | Continuity of Care Document ---
Author Organization Unknown Address Unknown Allergies Active Description Code Type Severity Reaction Onset Reported/Identified Relationship to Patient Clinical Status Yes No Known Drug Allergies [id number] Drug Allergy Unknown N/A 07/20/2012 Medications There [...] MD 465.9 Upper Respiratory Infection 04/01/2010 DWIGHT 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, APRIL A 305.1 NONDEPENDENT TOBACCO USE DISORDER 04/01/2010 DWIGHT ZEEN, APRIL A 465.9 Upper Respiratory Infection 04/01/2010 DWIGHT ZEEN, APRIL A 305.1 NONDEPENDENT TOBACCO USE DISORDER 04/01/2010 DWIGHT ZEEN, APRIL A 465.9 Upper Respiratory Infection 04/01/2010 [...] MD 465.9 Upper Respiratory Infection 04/01/2010 GIAN ZEEFlores ADDIS A 305.1 NONDEPENDENT TOBACCO USE DISORDER 04/01/2010 SPRINGER DEVORAH, ADDIS A 465.9 Upper Respiratory Infection 04/01/2010 [...] TUNNEL SYNDROME 05/14/2010 HUMA LOZOYA MD V72.31 Control Tower Radio Operator Exam, Routine 05/14/2010 BALDERRAMA DO BERRY K 354.0 CARPAL TUNNEL SYNDROME 05/14/2010 BALDERRAMA DO BERRY K V72.31 Control Tower Radio Operator Exam, Routine 05/14/2010 BALDERRAMA DO BERRY K 354.0 CARPAL TUNNEL SYNDROME 05/14/2010 BALDERRAMA DOBERRY V72.31 Control Tower Radio Operator Exam, Routine 05/14/2010 DEVORA PINEDO, HUMA 354.0 CARPAL TUNNEL SYNDROME 05/14/2010 DEVORA PINEDO, HUMA V72.31 Control Tower Radio Operator Exam, Routine 05/14/2010 354.0 CARPAL TUNNEL SYNDROME 05/14/2010 V72.31 Control Tower Radio Operator Exam, Routine 05/14/2010 DEVORA PINEDO, HUMA 354.0 CARPAL TUNNEL SYNDROME 05/14/2010 DEVORA PINEDO, HUMA V72.31 Control Tower Radio Operator Exam, Routine 05/14/2010 DEVORA PIENDO, HUMA 354.0 CARPAL TUNNEL SYNDROME 05/14/2010 DEVORA PINEDO, HUMA V72.31 Control Tower Radio Operator Exam, Routine 05/14/2010 DEVORA PINEDO, HUMA 354.0 CARPAL TUNNEL SYNDROME 05/14/2010 DEVORA PINEDO, HUMA V72.31 Control Tower Radio Operator Exam, Routine 05/14/2010 DEVORA PINEDO, HUMA 354.0 CARPAL TUNNEL SYNDROME 05/14/2010 HUMA LOZOYA MD V72.31 Control Tower Radio Operator Exam, Routine 05/14/2010 DEVORA PINEDO, HUMA 354.0 CARPAL TUNNEL SYNDROME 05/14/2010 HUMA LOZOYA MD V72.31 Control Tower Radio Operator Exam, Routine 05/14/2010 DWIGHT FAIRCHILD, APRIL A 354.0 CARPAL TUNNEL SYNDROME 05/14/2010 APRIL QUINTANILLA APRN V72.31 Control Tower Radio Operator Exam, Routine 05/14/2010 JI QUINTANILLA APRNIDI A 354.0 CARPAL TUNNEL SYNDROME 05/14/2010 APRIL QUINTANILLA APRN V72.31 Control Tower Radio Operator Exam, Routine 05/14/2010 BALDERRAMA DOJEOVANNYA K 354.0 CARPAL TUNNEL SYNDROME 05/14/2010 TACOS DOJEOVANNYA K V72.31 Control Tower Radio Operator Exam, Routine 05/14/2010 BALDERRAMA DO BERRY K 354.0 CARPAL TUNNEL SYNDROME 05/14/2010 BERRY BALDERRAMA DO V72.31 Control Tower Radio Operator Exam, Routine 05/14/2010 DEVORA PINEDO, HUMA 354.0 CARPAL TUNNEL SYNDROME 05/14/2010 HUMA LOZOYA MD V72.31 Control Tower Radio Operator Exam, Routine 05/14/2010 DEVORA PINEDO, HUMA 354.0 CARPAL TUNNEL SYNDROME 05/14/2010 HUMA LOZOYA MD V72.31 Control Tower Radio Operator Exam, Routine 05/14/2010 ADDIS SPRINGER APRN A 354.0 CARPAL TUNNEL SYNDROME 05/14/2010 ADDIS SPRINGER APRN A V72.31 Control Tower Radio Operator Exam, Routine 05/14/2010 HUMA LOZOYA MD 354.0 CARPAL TUNNEL SYNDROME 05/14/2010 HUMA LOZOYA MD V72.31 Control Tower Radio Operator Exam, Routine 05/14/2010 HUMA LOZOYA MD 354.0 CARPAL TUNNEL SYNDROME 05/14/2010 HUMA LOZOYA MD V72.31 Control Tower Radio Operator Exam, Routine 05/14/2010 354.0 CARPAL TUNNEL SYNDROME 05/14/2010 V72.31 Control Tower Radio Operator Exam, Routine 05/14/2010 HUMA LOZOYA MD 354.0 CARPAL TUNNEL SYNDROME 05/14/2010 HUMA LOZOYA MD V72.31 Control Tower Radio Operator Exam, Routine 06/09/2010 HUMA LOZOYA MD [...] Of Eustachian Tube 06/09/2010 ADDIS SPRINGER APRN A 381.81 Dysfunction Of Eustachian Tube 06/09/2010 HUMA LOZOYA MD 381.81 Dysfunction Of Eustachian Tube 06/09/2010 HUMA LOZOYA MD 381.81 Dysfunction Of Eustachian Tube 06/09/2010 381.81 Dysfunction Of Eustachian Tube 06/09/2010 HUMA LOZOYA MD 381.81 Dysfunction Of Eustachian Tube 06/16/2010 HUMA LOZOYA MD.43 Pain In Joint Involving Forearm 06/16/2010 BERRY BALEDRRAMA DO 719.43 Pain In Joint Involving Forearm 06/16/2010 BERRY BALDERRAMA DO 719.43 Pain In Joint Involving Forearm 06/16/2010 HUMA LOZOYA MD.43 Pain In Joint Involving Forearm 06/16/2010 719.43 Pain In Joint Involving Forearm 06/16/2010 HUMA LOZOYA MD.43 Pain In Joint Involving Forearm 06/16/2010 HUMA LOZOYA MD.43 Pain In Joint Involving Forearm 06/16/2010 HUMA LOZOYA MD.43 Pain In Joint Involving Forearm 06/16/2010 HUMA LOZOYA MD9.43 Pain In Joint Involving Forearm 06/16/2010 HUMA LOZOYA MD.43 Pain In Joint Involving Forearm 06/16/2010 APRIL QUINTANILLA APRN 719.43 Pain In Joint Involving Forearm 06/16/2010 APRIL QUINTANILLA APRN 719.43 Pain In Joint Involving Forearm 06/16/2010 BERRY BALDERRAMA DO 719.43 Pain In Joint Involving Forearm 06/16/2010 BERRY BALDERRAMA DO 719.43 Pain In Joint Involving Forearm 06/16/2010 HUMA LOZOYA MD9.43 Pain In Joint Involving Forearm 06/16/2010 HUMA LOZOYA MD.43 Pain In Joint Involving Forearm 06/16/2010 ADDIS SPRINGER APRN A 719.43 Pain In Joint Involving Forearm 06/16/2010 HUMA LOZOYA MD 719.43 Pain In Joint Involving Forearm 06/16/2010 [...] HUMA LOZOYA MD 786.02 Orthopnea 08/12/2010 BALDERRAMA DO BERRY K 303.03 Acute Alcoholic Intoxication In Alcoholism In Remission 08/12/2010 BALDERRAMA DO BERRY K 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 08/12/2010 BALDERRAMA DO BERRY K 782.3 Edema 08/12/2010 BALDERRAMA DO BERRY K 786.02 Orthopnea 08/12/2010 BALDERRAMA DO BERRY K 303.03 Acute Alcoholic Intoxication In Alcoholism In Remission 08/12/2010 BALDERRAMA DO BERRY K 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 08/12/2010 BALDERRAMA DO BERRY K 782.3 Edema 08/12/2010 BALDERRAMA DO BERRY K 786.02 Orthopnea 08/12/2010 HUMA LOZOYA [...] 08/12/2010 HUMA LOZOYA MD 786.02 Orthopnea 08/12/2010 APRIL QUINTANILLA APRN A 303.03 Acute Alcoholic Intoxication In Alcoholism In Remission 08/12/2010 APRIL QUINTANILLA APRN A 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 08/12/2010 DWIGHT FAIRCHILD, APRIL A 782.3 Edema 08/12/2010 JI QUINTANILLA APRNIDI A 786.02 Orthopnea 08/12/2010 JI QUINTANILLA APRNIDI A 303.03 Acute Alcoholic Intoxication In Alcoholism In Remission 08/12/2010 JI QUINTANILLA APRNIDI A 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 08/12/2010 JI QUINTANILLA APRNIDI A 782.3 Edema 08/12/2010 JI QUINTANILLA APRNIDI A 786.02 Orthopnea 08/12/2010 BALDERRAMA DO, BERRY [...] MD 786.02 Orthopnea 08/12/2010 ADDIS SPRINGER APRN 303.03 Acute Alcoholic Intoxication In Alcoholism In [...] ACTING SYMPATHOMIMETIC ABUSE IN REMISSION 08/12/2010 HUMA OLZOYA MD 782.3 Edema 08/12/2010 HUMA LOZOYA MD 786.02 Orthopnea 08/15/2010 HUMA LOZOYA MD 790.09 OTHER ABNORMALITY OF RED BLOOD CELLS 08/15/2010 BALDERRAMA JEOVANNY LEDESMAA K 790.09 OTHER ABNORMALITY OF RED BLOOD CELLS 08/15/2010 BERRY BALDERRAMA DO K 790.09 OTHER ABNORMALITY OF RED BLOOD [...] ABNORMALITY OF RED BLOOD CELLS 08/15/2010 BALDERRAMA JEOVANNY LEDESMAA K 790.09 OTHER ABNORMALITY OF RED BLOOD CELLS 08/15/2010 BALDERRAMA JEOVANNY LEDESMAA K 790.09 OTHER ABNORMALITY OF RED BLOOD CELLS 08/15/2010 HUMA LOZOYA MD 790.09 OTHER ABNORMALITY OF RED BLOOD CELLS 08/15/2010 DEVORA PINEDO, HUMA 790.09 OTHER ABNORMALITY OF RED BLOOD CELLS 08/15/2010 ADDIS SPRINGER APRN 790.09 OTHER ABNORMALITY OF RED BLOOD CELLS 08/15/2010 DEVORA PINEDO, HUMA 790.09 OTHER ABNORMALITY OF RED BLOOD CELLS [...] APRN A 300.00 ANXIETY STATE UNSPECIFIED 08/20/2010 JI QUINTANILLA APRNIDI A 300.00 ANXIETY STATE UNSPECIFIED 08/20/2010 BERRY BALDERRAMA DO K 300.00 ANXIETY STATE UNSPECIFIED 08/20/2010 JEOVANNY BALDERRAMA DOA K 300.00 ANXIETY STATE UNSPECIFIED 08/20/2010 HUMA LOZOYA MD 300.00 ANXIETY STATE UNSPECIFIED 08/20/2010 HUMA LOZOYA MD 300.00 ANXIETY STATE UNSPECIFIED 08/20/2010 ADDIS SPRINGER APRN A 300.00 ANXIETY STATE UNSPECIFIED 08/20/2010 DEVORA PINEDO, HUMA 300.00 ANXIETY STATE UNSPECIFIED 08/20/2010 HUMA LOZOYA MD 300.00 ANXIETY STATE UNSPECIFIED 08/20/2010 300.00 ANXIETY STATE UNSPECIFIED 08/20/2010 HUMA LOZOYA MD 300.00 ANXIETY STATE UNSPECIFIED 12/11/2010 DEVORA PINEDO, HUMA 724.5 BACKACHE UNSPECIFIED 12/11/2010 BALDERRAMA BERRY LEDESMA 724.5 BACKACHE UNSPECIFIED 12/11/2010 BALDERRAMA , BERRY K 724.5 BACKACHE UNSPECIFIED 12/11/2010 DEVORA PINEDO, HUMA 724.5 BACKACHE UNSPECIFIED 12/11/2010 724.5 BACKACHE UNSPECIFIED 12/11/2010 DEVORA PINEDO, HUMA 724.5 BACKACHE UNSPECIFIED 12/11/2010 DEVORA PINEDO, HUMA 724.5 BACKACHE UNSPECIFIED 12/11/2010 DEVORA PINEDO, HUMA 724.5 BACKACHE UNSPECIFIED 12/11/2010 DEVORA PINEDO, HUMA 724.5 BACKACHE UNSPECIFIED 12/11/2010 DEVORA PINEDO, HUMA 724.5 BACKACHE UNSPECIFIED 12/11/2010 DWIGHTLIANNE FAIRCHILD, APRIL A 724.5 BACKACHE UNSPECIFIED 12/11/2010 APRIL QUINTANILLA APRN A 724.5 BACKACHE UNSPECIFIED 12/11/2010 BALDERRAMA DO, BERRY K 724.5 BACKACHE UNSPECIFIED 12/11/2010 BALDERRAMA DO, BERRY [...] MD 780.79 OTHER MALAISE AND FATIGUE 05/05/2011 DWIGHT 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, APRIL A 780.79 OTHER MALAISE AND FATIGUE 05/05/2011 DWIGHT 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, APRIL A 780.79 OTHER MALAISE AND FATIGUE 05/05/2011 BERRY BALDERRAMA DO 780.79 OTHER MALAISE AND FATIGUE 05/05/2011 BERRY BALDERRAMA DO 780.79 OTHER MALAISE AND FATIGUE 05/05/2011 HUMA LOZOYA MD 780.79 OTHER MALAISE AND FATIGUE 05/05/2011 HUMA LOZOYA MD 780.79 OTHER MALAISE AND FATIGUE 05/05/2011 ADDIS SPRINGER APRN A 780.79 OTHER MALAISE AND FATIGUE 05/05/2011 HUMA [...] HUMA LOZOYA MD 627.2 MENOPAUSAL SX 02/19/2012 UHMA LOZOYA MD V76.10 BREAST CANCER SCREENING 02/19/2012 [...] SCREENING (PAP SMEAR) 02/19/2012 APRIL QUINTANILLA APRN A 627.2 MENOPAUSAL SX 02/19/2012 APRIL QUINTANILLA APRN A V76.10 BREAST CANCER SCREENING 02/19/2012 APRIL QUINTANILLA APRN A V76.2 CERVICAL CANCER SCREENING (PAP SMEAR) 02/19/2012 APRIL QUINTANILLA APRN A 627.2 MENOPAUSAL SX 02/19/2012 APRIL QUINTANILLA APRN A V76.10 BREAST CANCER SCREENING 02/19/2012 APRIL QUINTANILLA APRN A V76.2 CERVICAL CANCER SCREENING (PAP SMEAR) 02/19/2012 BERRY BALDERRAMA DO 627.2 MENOPAUSAL SX 02/19/2012 BALDERRAMA JEOVANNY LEDESMAA K V76.10 BREAST CANCER SCREENING 02/19/2012 BERRY BALDERRAMA DO V76.2 CERVICAL CANCER SCREENING (PAP SMEAR) 02/19/2012 TACOS LEDESMA BERRY Benny 627.2 MENOPAUSAL SX 02/19/2012 TACOS LEDESMA BERRY Benny V76.10 BREAST CANCER SCREENING 02/19/2012 BERRY BALDERRAMA [...] CERVICAL CANCER SCREENING (PAP SMEAR) 02/19/2012 HUMA LOZYOA MD 627.2 MENOPAUSAL SX 02/19/2012 HUMA LOZOYA [...] AND UNSPECIFIED HYPERLIPIDEMIA 03/28/2012 APRIL QUINTANILLA APRN 272.4 OTHER AND UNSPECIFIED HYPERLIPIDEMIA 03/28/2012 APRIL QUINTANILLA APRN 272.4 OTHER AND UNSPECIFIED HYPERLIPIDEMIA 03/28/2012 BERRY BALDERRAMA DO 272.4 OTHER AND UNSPECIFIED HYPERLIPIDEMIA 03/28/2012 BERRY BALDERRAMA DO 272.4 OTHER AND UNSPECIFIED HYPERLIPIDEMIA 03/28/2012 HUMA [...] LOZOYA MD 728.85 SPASM OF MUSCLE 09/29/2012 HUAM LOZOYA MD 728.85 SPASM OF MUSCLE 09/29/2012 [...] 71Olivia.41 PAIN IN JOINT INVOLVING SHOULDER REGION 01/18/2013 HUMA LOZOYA MD V58.69 MEDICATION HIGH RISK 01/18/2013 HUMA LOZOYA MD V58.69 MEDICATION HIGH RISK 01/18/2013 HUMA LOZOYA MD V58.69 MEDICATION HIGH RISK 01/18/2013 DWIGHT 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, APRIL A V58.69 MEDICATION HIGH RISK 01/18/2013 APRIL QUINTANILLA APRN A V58.69 MEDICATION HIGH RISK 01/18/2013 BERRY BALDERRAMA DO K V58.69 MEDICATION HIGH RISK 01/18/2013 JEOVANNY BALDERRAMA DOA K V58.69 MEDICATION HIGH RISK 01/18/2013 HUMA LOZOYA MD V58.69 MEDICATION HIGH RISK 01/18/2013 DEVORA PINEDO, [...] V76.11 SCREENING MAMMOGRAM FOR HIGH-RISK PATIENT 02/15/2013 BERRY BALDERRAMA DO V76.11 SCREENING MAMMOGRAM FOR HIGH-RISK PATIENT 02/15/2013 BERRY BALDERRAMA DO V76.11 SCREENING MAMMOGRAM FOR HIGH-RISK PATIENT 02/15/2013 [...] V76.11 SCREENING MAMMOGRAM FOR HIGH-RISK PATIENT 04/17/2013 DWIGHT 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, APRIL A V65.42 COUNSELING - SMOKING CESSATION 04/17/2013 DWIGHT FAIRCHILD, APRIL A V65.49 OTHER SPECIFIED COUNSELING 04/17/2013 DWIGHT FAIRCHILD, APRIL A V76.10 BREAST CANCER SCREENING 04/17/2013 DWIGHT ZEEN, APRIL A V76.51 COLON CANCER SCREENING 04/17/2013 DWIGHT FAIRCHILD, APRIL A V82.81 SPECIAL SCREENING FOR OSTEOPOROSIS 04/17/2013 DWIGHT ZEEN, APRIL A V65.42 COUNSELING - SMOKING CESSATION 04/17/2013 DWIGHT ZEEN, APRIL A V65.49 OTHER SPECIFIED COUNSELING 04/17/2013 DWIGHT ZEEN, APRIL A V76.10 BREAST CANCER SCREENING 04/17/2013 DWIGHT FAIRCHILD, APRIL A V76.51 COLON CANCER SCREENING 04/17/2013 DWIGHT FAIRCHILD, APRIL A V82.81 SPECIAL SCREENING FOR OSTEOPOROSIS 04/17/2013 BALDERRAMA DO BERRY K V65.42 COUNSELING - SMOKING CESSATION 04/17/2013 BALDERRAMA DO BERRY K V65.49 OTHER SPECIFIED COUNSELING 04/17/2013 BALDERRAMA DO, BERRY K V76.10 BREAST CANCER SCREENING 04/17/2013 BALDERRAMA DO, BERRY K V76.51 COLON CANCER SCREENING 04/17/2013 BALDERRAMA DO, BERRY K V82.81 SPECIAL SCREENING FOR OSTEOPOROSIS [...] APRN V65.42 COUNSELING - SMOKING CESSATION 04/17/2013 GIAN 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ADDIS Tanner V65.49 OTHER SPECIFIED COUNSELING 04/17/2013 GIAN 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ADDIS Tanner V76.10 BREAST CANCER SCREENING 04/17/2013 SPRINGER 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ADDIS Tanner V76.51 COLON CANCER SCREENING 04/17/2013 ADDIS SPRINGER [...] MD V82.81 SPECIAL SCREENING FOR OSTEOPOROSIS 06/02/2013 BERRY BALDERRAMA DO 723.1 CERVICALGIA 06/02/2013 BALDERRAMA DOBERRY E880.9 ACCIDENTAL FALL ON OR FROM OTHER [...] DO Ot 338.29 OTHER CHRONIC PAIN 10/03/2013 BERRY BALDERRAMA DO Ot 784.0 HEADACHE 10/03/2013 BERRY BALDERRAMA DO Ot V03.82 PROPHYLACTIC VACC AGAINST STREPTOCOCCUS 10/03/2013 BALDERRAMA BERRY Benny Ot V62.84 SUICIDAL IDEATION 10/03/2013 BERRY BALDERRAMA DO Ot V62.85 HOMICIDAL IDEATION 11/20/2013 YANN PINEDO, DANICA Tanner Ot 305.00 ALCOHOL ABUSE-UNSPEC 11/20/2013 DANICA LERNER [...] LOZOYA MD Ot V76.12 03/16/2014 APRIL QUINTANILLA APRN Ot 733.90 03/16/2014 APRIL QUINTANILLA 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 Ot V65.42 03/16/2014 APRIL QUINTANILLA 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 Ot V65.49 03/16/2014 APRIL QUINTANILLA 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 Ot V76.12 03/16/2014 APRIL QUINTANILLA 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 Ot V76.51 03/16/2014 APRIL QUINTANILLA 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 Ot V82.81 03/19/2014 HUMA LOZOYA MD V76.10 [...] LOPEZ APRN Ot Y92.[address] [facility] (PR[facility] 03/03/2016 LI LOPEZ APRN Ot Y99.8 OTHER EXTERNAL CAUSE STATUS 03/03/2016 LI LOPEZ APRN Ot Z79.82 CORRECTION (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 OF ASPIRIN 03/03/2016 LI LOPEZ APRN Ot Z79.899 OTHER CORRECTION (CURRENT) DRUG THERAPY 03/03/2016 Ot V76.12 OTH SCREEN MAMMO- MALIGN NEOPLASM OF ETIENNE 03/03/2016 HUMA LOZOYA MD Ot V76.12 OTH SCREEN MAMMO-MALIGN NEOPLASM OF ETIENNE 03/03/2016 APRIL QIUNTANILLA APRN Ot 733.90 BONE CARTILAGE DIS NOS 03/03/2016 APRIL QUINTANILLA APRN Ot V65.42 COUNSELING ON SUBSTANCE USE AND ABUSE 03/03/2016 APRIL QUINTANILLA APRN Ot V65.49 OTHER SPECIFIED COUNSELING 03/03/2016 DWIGHT, APRIL A 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 Ot V76.12 OTH SCREEN MAMMO-MALIGN NEOPLASM OF ETIENNE 03/03/2016 JI QUINTANILLAIDI Jp 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 Ot V76.51 SCREEN MAL NEOP-COLON 03/03/2016 JI QUINTANILLAIDI Jp 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 Ot V82.81 SCREENING FOR OSTEOPOROSIS 03/03/2016 Ot V76.12 OTH SCREEN MAMMO- MALIGN NEOPLASM OF ETIENNE 03/03/2016 HUMA LOZOYA MD Ot V76.12 OTH SCREEN MAMMO-MALIGN NEOPLASM OF ETIENNE 03/03/2016 JI QUINTANILLAIDI Jp 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 Ot 733.90 BONE CARTILAGE DIS NOS 03/03/2016 DWIGHTJIAPRIL Jp 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 Ot V65.42 COUNSELING ON SUBSTANCE USE AND ABUSE 03/03/2016 DWIGHT, APRIL A 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 Ot V65.49 OTHER SPECIFIED COUNSELING 03/03/2016 DWIGHTJIAPRIL Jp 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 Ot V76.12 OTH SCREEN MAMMO-MALIGN NEOPLASM OF ETIENNE 03/03/2016 DWIGHTJIAPRIL Jp 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 Ot V76.51 SCREEN MAL NEOP-COLON 03/03/2016 JI QUINTANILLAIDI Jp 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 Ot V82.81 SCREENING FOR OSTEOPOROSIS 03/04/2016 LI LOPEZ APRN Ot J44.9 CHRONIC OBSTRUCTIVE PULMONARY DISEASE, U 03/04/2016 LI LOPEZ APRN Ot S82.401A [facility] F[facility] OF SHAFT OF RIGHT FIBULA, 03/04/2016 LI LOPEZ APRN Ot S99.911A UNSPECIFIED INJURY OF RIGHT ANKLE, INITI 03/04/2016 LI LOPEZ APRN Ot X58.XXXA EXPOSURE TO OTHER SPECIFIED FACTORS, INI 03/04/2016 LI LOPEZ APRN Ot Y92.[address] [facility] (PRIVATE 03/04/2016 LI LOPEZ APRN Ot Y99.8 OTHER EXTERNAL CAUSE STATUS 03/04/2016 LI LOPEZ APRN Ot Z79.82 COSMETOLOGY EDUCATOR (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 OF ASPIRIN 03/04/2016 LI LOPEZ APRN Ot Z79.899 OTHER COSMETOLOGY EDUCATOR (CURRENT) DRUG THERAPY 03/05/2016 LI LOPEZ APRN Ot J44.9 CHRONIC OBSTRUCTIVE PULMONARY DISEASE, U 03/05/2016 LI LOPEZ APRN Ot S82.401A UNSP FRACTURE OF SHAFT OF RIGHT FIBULA, 03/05/2016 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 Ot S99.911A UNSPECIFIED INJURY OF RIGHT ANKLE, INITI 03/05/2016 LI LOPEZ APRN Ot X58.XXXA EXPOSURE TO OTHER SPECIFIED FACTORS, INI 03/05/2016 LI LOPEZ APRN Ot Y92.[address] [facility] (PRIVATE 03/05/2016 LI LOPEZ APRN Ot Y99.8 OTHER EXTERNAL CAUSE STATUS 03/05/2016 LI LOPEZ APRN Ot Z79.82 CORRECTION (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 OF ASPIRIN 03/05/2016 LI LOPEZ APRN Ot Z79.899 OTHER CORRECTION (CURRENT) DRUG THERAPY 07/11/2016 MELISSA GARCIA Ot F10.129 ALCOHOL ABUSE WITH INTOXICATION, UNSPECI 07/11/2016 MELISSA GARCIA Ot F17.210 NICOTINE DEPENDENCE, CIGARETTES, UNCOMPL 07/11/2016 MELISSA GARCIA Ot J44.9 CHRONIC OBSTRUCTIVE PULMONARY DISEASE, U 07/11/2016 MELISSA GARCIA Ot Y90.6 BLOOD ALCOHOL LEVEL OF 120-199 MG/100 ML 07/11/2016 MELISSA GARCIA Ot Z79.82 CORRECTION (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 OF ASPIRIN 07/11/2016 MELISSA GARCIA Ot Z79.899 OTHER COSMETOLOGY EDUCATOR (CURRENT) DRUG THERAPY 04/06/2017 MALIA JOLLY MD Ot F10.129 ALCOHOL ABUSE WITH INTOXICATION, UNSPECI 04/06/2017 MALIA JOLLY MD T Ot F12.10 CANNABIS ABUSE, UNCOMPLICATED 04/06/2017 MALIA JOLLY MD Ot F14.10 COCAINE ABUSE, UNCOMPLICATED 04/06/2017 MALIA JOLLY MD T Ot F17.210 NICOTINE DEPENDENCE, CIGARETTES, UNCOMPL 04/06/2017 [...] R 04/06/2017 MALIA JOLLY MD Ot Z79.82 CORRECTION (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 OF ASPIRIN 04/06/2017 MALIA JOLLY [...] FACTORS, INI 04/06/2017 MELISSA GARCIA Ot Z79.82 CORRECTION (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 OF ASPIRIN 04/06/2017 MELISSA GARCIA [...] F31.9 BIPOLAR DISORDER, UNSPECIFIED 04/08/2017 MALIA JOLLY MD, Ot F41.9 ANXIETY DISORDER, UNSPECIFIED 04/08/2017 MALIA JOLLY MD Ot G47.30 SLEEP APNEA, UNSPECIFIED 04/08/2017 MALIA JOLLY MD, Ot J44.9 CHRONIC OBSTRUCTIVE PULMONARY DISEASE, U 04/08/2017 MALIA JOLLY MD Ot M25.472 EFFUSION, LEFT ANKLE 04/08/2017 MALIA JOLLY MD Ot S82.831A OTH FRACTURE OF UPPER AND LOWER END OF R 04/08/2017 MALIA JOLLY MD Ot Z79.82 CORRECTION (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 OF ASPIRIN 04/08/2017 MALIA JOLLY [...] FACTORS, INI 04/08/2017 MELISSA GARCIA Ot Z79.82 CORRECTION (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 OF ASPIRIN 04/08/2017 MELISSA GARCIA Ot Z80.8 FAMILY HISTORY OF MALIGNANT NEOPLASM OF 04/08/2017 MELISSA GARCIA Ot Z91.5 PERSONAL HISTORY OF SELF-HARM 05/11/2017 MELISSA GARCIA Ot R06.02 SHORTNESS OF BREATH 05/18/2017 MELISSA GARCIA Ot R06.02 SHORTNESS OF BREATH 05/18/2017 MELISSA GARCIA Ot R06.02 SHORTNESS OF BREATH 05/19/2017 Ot V76.12 OTH SCREEN MAMMO- MALIGN NEOPLASM OF ETIENNE 05/19/2017 HUMA LOZOYA MD Ot V76.12 OTH SCREEN MAMMO-MALIGN NEOPLASM OF ETIENNE 05/19/2017 DWIGHT, APRIL A 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 Ot 733.90 BONE CARTILAGE DIS NOS 05/19/2017 DWIGHT, APRIL A 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 Ot V65.42 COUNSELING ON SUBSTANCE USE AND ABUSE 05/19/2017 DWIGHT, APRIL A 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 Ot V65.49 OTHER SPECIFIED COUNSELING 05/19/2017 DWIGHT, APRIL A 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 Ot V76.12 OTH SCREEN MAMMO-MALIGN NEOPLASM OF ETIENNE 05/19/2017 DWIGHT, APRIL A 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 Ot V76.51 SCREEN MAL NEOP-COLON 05/19/2017 DWIGHT, APRIL A 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 Ot V82.81 SCREENING FOR OSTEOPOROSIS 05/19/2017 MELISSA GARCIA Ot R06.02 SHORTNESS OF BREATH 05/19/2017 Ot V76.12 OTH SCREEN MAMMO- MALIGN NEOPLASM OF ETIENNE 05/19/2017 HUMA LOZOYA MD Ot V76.12 OTH SCREEN MAMMO-MALIGN NEOPLASM OF ETIENNE 05/19/2017 DWIGHT, APRIL A 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 Ot 733.90 BONE CARTILAGE DIS NOS 05/19/2017 DWIGHT, APRIL A 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 Ot V65.42 COUNSELING ON SUBSTANCE USE AND ABUSE 05/19/2017 DWIGHT, APRIL A 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 Ot V65.49 OTHER SPECIFIED COUNSELING 05/19/2017 DWIGHT, APRIL A 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 Ot V76.12 OTH SCREEN MAMMO-MALIGN NEOPLASM OF ETIENNE 05/19/2017 DWIGHT, APRIL A 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 Ot V76.51 SCREEN MAL NEOP-COLON 05/19/2017 DWIGHT, APRIL A 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 Ot V82.81 SCREENING FOR OSTEOPOROSIS 05/19/2017 MELISSA GARCIA Ot R06.02 SHORTNESS OF BREATH 05/20/2017 Ot V76.12 OTH SCREEN MAMMO- MALIGN NEOPLASM OF ETIENNE 05/20/2017 DEVORA PINEDO, HUMA Sparks Ot V76.12 OTH SCREEN MAMMO-MALIGN NEOPLASM OF ETIENNE 05/20/2017 APRIL QUINTANILLA Jp 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 Ot 733.90 BONE CARTILAGE DIS NOS 05/20/2017 DWIGHTJIAPRIL A 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 Ot V65.42 COUNSELING ON SUBSTANCE USE AND ABUSE 05/20/2017 DWIGHTJIAPRIL A 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 Ot V65.49 OTHER SPECIFIED COUNSELING 05/20/2017 JI QUINTANILLAIDI Jp 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 Ot V76.12 OTH SCREEN MAMMO-MALIGN NEOPLASM OF ETIENNE 05/20/2017 JI QUINTANILLAGYPSY Trammell 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 Ot V76.51 SCREEN MAL NEOP-COLON 05/20/2017 DWIGHT APRIL A 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 Ot V82.81 SCREENING FOR OSTEOPOROSIS 05/21/2017 ASHLYN PINEDO, HONEY Donaldson Ot M79.609 PAIN IN UNSPECIFIED LIMB 05/21/2017 [...] BREATH 05/21/2017 LI LOPEZ APRN Ot Z79.82 CORRECTION (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 OF ASPIRIN 05/21/2017 LI LOPEZ APRN Ot Z80.8 FAMILY HISTORY OF MALIGNANT NEOPLASM OF 05/21/2017 LI LOPEZ APRN Ot Z87.448 PERSONAL HISTORY OF OTHER DISEASES OF UR 05/21/2017 LI LOPEZ APRN Ot Z91.5 PERSONAL HISTORY OF SELF-HARM 05/24/2017 [...] BREATH 05/24/2017 LI LOPEZ APRN Ot Z79.82 CORRECTION (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 OF ASPIRIN 05/24/2017 LI LOPEZ APRN Ot Z80.8 FAMILY HISTORY OF MALIGNANT NEOPLASM OF 05/24/2017 LI LOPEZ APRN Ot Z87.448 PERSONAL HISTORY OF OTHER DISEASES OF UR 05/24/2017 LI LOPEZ APRN Ot Z91.5 PERSONAL HISTORY OF SELF-HARM 05/29/2017 SHAHANA ROSENTHALP Ot F10.129 ALCOHOL ABUSE WITH INTOXICATION, UNSPECI 05/29/2017 SHAHANA ROSENTHAL OPERATIONS CHIEF Ot F12.90 CANNABIS USE, UNSPECIFIED, UNCOMPLICATED 05/29/2017 SHAHANA ROSENTHALP Ot F31.9 BIPOLAR DISORDER, UNSPECIFIED 05/29/2017 SHAHANA ROSENTHALP Ot F41.9 ANXIETY DISORDER, UNSPECIFIED 05/29/2017 SHAHANA ROSENTHAL OPERATIONS CHIEF Ot G47.30 SLEEP APNEA, UNSPECIFIED 05/29/2017 SHAHANA ROSENTHALP Ot G47.9 SLEEP DISORDER, UNSPECIFIED 05/29/2017 SHAHANA ROSENTHALP Ot J44.9 CHRONIC OBSTRUCTIVE PULMONARY DISEASE, U 05/29/2017 SHAHANA ROSENTHAL OPERATIONS CHIEF Ot R06.02 SHORTNESS OF BREATH 05/29/2017 SHAHANA ROSENTHALP Ot Z77.22 CNTCT W AND EXPSR TO ENVIRON TOBACCO SMO 05/29/2017 SHAHANA ROSENTHAL OPERATIONS CHIEF Ot Z79.82 CORRECTION (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 OF ASPIRIN 05/29/2017 SHAHANA ROSENTHAL OPERATIONS CHIEF Ot Z87.81 PERSONAL HISTORY OF (HEALED) TRAUMATIC F 05/29/2017 SHAHANA ROSENTHALP Ot Z91.5 PERSONAL HISTORY OF SELF-HARM 06/08/2017 [...] DISEASE, U 06/08/2017 MELISSA GARCIA Ot Z79.82 CORRECTION (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 OF ASPIRIN 06/08/2017 MELISSA GARCIA Ot Z80.8 FAMILY HISTORY OF MALIGNANT NEOPLASM OF 06/08/2017 MELISSA GARCIA Ot Z91.5 PERSONAL HISTORY OF SELF-HARM 06/10/2017 MELISSA GARCIA Ot F10.129 ALCOHOL ABUSE WITH INTOXICATION, UNSPECI 06/10/2017 MELISSA GARCIA Ot F10.229 ALCOHOL DEPENDENCE WITH INTOXICATION, UN 06/10/2017 MLEISSA GARCIA Ot F12.10 CANNABIS ABUSE, UNCOMPLICATED 06/10/2017 MELISSA GARCIA Ot F17.210 NICOTINE DEPENDENCE, CIGARETTES, UNCOMPL 06/10/2017 MELISSA GARCIA Ot F31.9 BIPOLAR DISORDER, UNSPECIFIED 06/10/2017 MELISSA GARCIA Ot F41.9 ANXIETY DISORDER, UNSPECIFIED 06/10/2017 MELISSA GARCIA Ot G47.30 SLEEP APNEA, UNSPECIFIED 06/10/2017 MELISSA GARCIA Ot J44.9 CHRONIC OBSTRUCTIVE PULMONARY DISEASE, U 06/10/2017 MELISSA GARCIA Ot Z79.82 CORRECTION (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 OF ASPIRIN 06/10/2017 MELISSA GARCIA Ot Z80.8 FAMILY HISTORY OF MALIGNANT NEOPLASM OF 06/10/2017 MELISSA GARCIA Ot Z91.5 PERSONAL HISTORY OF SELF-HARM 08/19/2017 LI LOPEZ APRN Ot F10.229 ALCOHOL DEPENDENCE WITH INTOXICATION, UN 08/19/2017 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 Ot F12.10 CANNABIS ABUSE, UNCOMPLICATED 08/19/2017 LI [...] SMO 08/19/2017 LI LOPEZ APRN Ot Z79.82 COSMETOLOGY EDUCATOR (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 OF ASPIRIN 08/19/2017 LI LOPEZ [...] SMO 08/23/2017 LI LOPEZ APRN Ot Z79.82 COSMETOLOGY EDUCATOR (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 OF ASPIRIN 08/23/2017 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 Ot Z80.8 FAMILY HISTORY OF MALIGNANT NEOPLASM OF 08/23/2017 LI LOPEZ APRN Ot Z91.5 PERSONAL HISTORY OF SELF-HARM 09/13/2017 Ot F10.129 ALCOHOL ABUSE WITH INTOXICATION, UNSPECI 09/13/2017 Ot F10.229 ALCOHOL DEPENDENCE WITH INTOXICATION, UN 09/13/2017 Ot F31.9 BIPOLAR DISORDER, UNSPECIFIED 09/13/2017 Ot F41.9 ANXIETY DISORDER, UNSPECIFIED 09/13/2017 Ot G47.30 SLEEP APNEA, UNSPECIFIED 09/13/2017 Ot J44.9 CHRONIC OBSTRUCTIVE PULMONARY DISEASE, U 09/13/2017 Ot Z77.22 CNTCT W AND EXPSR TO ENVIRON TOBACCO SMO 09/13/2017 Ot Z79.82 COSMETOLOGY EDUCATOR (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 OF ASPIRIN 09/13/2017 Ot Z80.8 FAMILY HISTORY OF MALIGNANT NEOPLASM OF 09/13/2017 Ot Z87.448 PERSONAL HISTORY OF OTHER DISEASES OF UR 09/13/2017 Ot Z91.5 PERSONAL HISTORY OF SELF-HARM 10/10/2017 JENIFER MULLINS Ot F10.20 ALCOHOL DEPENDENCE, UNCOMPLICATED 10/10/2017 JENIFER MULLINS Ot F31.9 BIPOLAR DISORDER, UNSPECIFIED 10/10/2017 BERNJENIFER VELA Ot F41.9 ANXIETY DISORDER, UNSPECIFIED 10/10/2017 BERNOT JENIFER Ot G47.30 SLEEP APNEA, UNSPECIFIED 10/10/2017 BERNDANE JENIFER Ot J44.9 CHRONIC OBSTRUCTIVE PULMONARY DISEASE, U 10/10/2017 MARINA MULLINSIS Ot R06.02 SHORTNESS OF BREATH 10/10/2017 MARINA MULLINSIS Ot Z77.22 CNTCT W AND EXPSR TO ENVIRON TOBACCO SMO 10/10/2017 MARINA MULLINSIS Ot Z79.82 COSMETOLOGY EDUCATOR (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 OF ASPIRIN 10/10/2017 HARPREET JENIFER Ot Z80.8 FAMILY HISTORY OF MALIGNANT NEOPLASM OF 10/10/2017 BERNOT JENIFER Ot Z87.448 PERSONAL HISTORY OF OTHER DISEASES OF UR 10/10/2017 BERNOT, JENIFER Ot Z91.5 PERSONAL HISTORY OF SELF-HARM 10/12/2017 BERNMARINA VELAIS Ot F10.20 ALCOHOL DEPENDENCE, UNCOMPLICATED 10/12/2017 BERNMARINA VELAIS Ot F31.9 BIPOLAR DISORDER, UNSPECIFIED 10/12/2017 BERNMARINA VELAIS Ot F41.9 ANXIETY DISORDER, UNSPECIFIED 10/12/2017 BERNOTMARINAIS Ot G47.30 SLEEP APNEA, UNSPECIFIED 10/12/2017 BERNMARINA VELAIS Ot J44.9 CHRONIC OBSTRUCTIVE PULMONARY DISEASE, U 10/12/2017 JENIFER MULLINS Ot R06.02 SHORTNESS OF BREATH 10/12/2017 JENIFER MULLINS Ot Z77.22 CNTCT W AND EXPSR TO ENVIRON TOBACCO SMO 10/12/2017 MARINA MULLINSIS Ot Z79.82 COSMETOLOGY EDUCATOR (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 OF ASPIRIN 10/12/2017 MARINA MULLINSIS Ot Z80.8 FAMILY HISTORY OF MALIGNANT NEOPLASM OF 10/12/2017 MARINA MULLINSIS Ot Z87.448 PERSONAL HISTORY OF OTHER DISEASES OF UR 10/12/2017 MARINA MULLINSIS Ot Z91.5 PERSONAL HISTORY OF SELF-HARM 10/12/2017 MARINA MULLINSIS Ot F10.10 ALCOHOL ABUSE, UNCOMPLICATED 10/15/2017 MARINA MULLINSIS Ot F10.10 ALCOHOL ABUSE, UNCOMPLICATED 10/15/2017 MARINA MULLINSIS Ot F10.10 ALCOHOL ABUSE, UNCOMPLICATED 10/15/2017 MARINA MULLINSIS Ot F10.10 ALCOHOL ABUSE, UNCOMPLICATED Procedures Code Description Performed By Performed On [facility] 10/09/2011 65746 UA W/ CULTURE IF INDICATED 02/19/2012 30869 ROUTINE VENIPUNCTURE 02/22/2012 23484 CBC 02/22/2012 26448 LIPID PANEL 02/22/2012 80043 CMP 02/22/2012 [id number] GFR CALC (RESULT ONLY) 02/22/2012 82429 TSH 02/23/2012 81478 MAMMOGRAM, SCREENING 02/23/2012 15615 HEMOCCULT 02/23/2012 42687 PAP SMEAR 02/23/2012 Q0091 PAP SMEAR OBTAIN SMEAR 02/23/2012 22246 URINE DRUG SCREEN (IN-HOUSE) 01/18/2013 64841 MAMMOGRAM, SCREENING 01/19/2013 URINEDRUG URINE DRUG SCREEN (CON'F) 01/19/2013 98179 BONE DENSITY, DEXA 04/17/2013 GENERAL S Kido, Ken 04/17/2013 68524 BONE MINERAL DENSITY, HEEL US (IN HOUSE) 04/17/2013 48417 XRAY CERVICAL SPINE, 2 OR 3 VIEWS 06/02/2013 61353 ROUTINE VENIPUNCTURE 02/16/2014 51569 MAMMOGRAM, SCREENING 02/16/2014 [id number] GFR CALC (RESULT ONLY) 02/16/2014 37827 CMP 02/16/2014 Results Test Result Range Complete [...] Automated erythrocyte mean corpuscular hemoglobin concentration measurement (mass/volume) 34 g/dL 32-36 Automated erythrocyte distribution width ratio 13.4 % 10.0- 14.5 Automated blood platelet count (count/volume) 344 10*3/uL [...] Blood monocytes automated count (number/volume) 1.0 10*3 0.0- 1.0 Automated eosinophil count 0.2 10*3/uL 0.0-0.3 Automated [...] NR Blood erythrocyte morphology finding identification [facility] Comprehensive metabolic panel - 07/11/16 16:13 Serum [...] Serum or plasma aspartate aminotransferase measurement (enzymatic activity/volume) 28 U/L 5-34 Serum or plasma alanine aminotransferase measurement (enzymatic activity/volume) 13 U/L 0-55 Serum or plasma protein measurement (mass/volume) 7.4 g/dL 6.4-8.2 Serum or plasma albumin measurement (mass/volume) 4.2 g/dL 3.2-4.5 Serum or plasma thyrotropin measurement by detection limit <=0.05 miu/l (units/volume) - 07/11/16 16:13 Serum or plasma thyrotropin measurement by detection limit <=0.05 miu/l (units/volume) 0.69 u[iU]/mL 0.35-4.94 Serum or plasma ethanol measurement (mass/volume) - 07/11/16 16:13 Serum or plasma ethanol measurement (mass/volume) 199 mg/dL <10 Complete urinalysis with reflex to culture - 07/11/16 16:53 Urine color determination YELLOW NRG Urine clarity determination CLEAR NRG Urine pH measurement by test strip 6.5 5-9 Specific gravity of urine by test strip 1.005 1.016-1.022 Urine protein assay by test strip, semi-quantitative [...] sediment leukocyte count by microscopy (number/high power field) RARE NRG Bacteria detection in urine sediment [...] Automated erythrocyte mean corpuscular hemoglobin concentration measurement (mass/volume) 36 g/dL 32-36 Automated erythrocyte distribution width ratio 12.7 % 10.0- 14.5 Automated blood platelet count (count/volume) 308 10*3/uL [...] Blood monocytes automated count (number/volume) 1.5 10*3 0.0- 1.0 Automated eosinophil count 0.1 10*3/uL 0.0-0.3 Automated [...] Serum or plasma aspartate aminotransferase measurement (enzymatic activity/volume) 38 U/L 5-34 Serum or plasma alanine aminotransferase measurement (enzymatic activity/volume) 33 U/L 0-55 Serum or plasma protein [...] gravity of urine by test strip 1.010 1.016-1.022 Urine protein assay by test strip, semi-quantitative [...] sediment leukocyte count by microscopy (number/high power field) NONE NRG Bacteria detection in urine sediment [...] Automated erythrocyte mean corpuscular hemoglobin concentration measurement (mass/volume) 35 g/dL 32-36 Automated erythrocyte distribution width ratio 12.5 % 10.0- 14.5 Automated blood platelet count (count/volume) 302 10*3/uL [...] Blood monocytes automated count (number/volume) 1.3 10*3 0.0- 1.0 Automated eosinophil count 0.1 10*3/uL 0.0-0.3 Automated [...] Serum or plasma aspartate aminotransferase measurement (enzymatic activity/volume) 45 U/L 5-34 Serum or plasma alanine aminotransferase measurement (enzymatic activity/volume) 40 U/L 0-55 Serum or plasma protein [...] gravity of urine by test strip 1.010 1.016-1.022 Urine protein assay by test strip, semi-quantitative [...] sediment leukocyte count by microscopy (number/high power field) NONE NRG Bacteria detection in urine sediment [...] Automated erythrocyte mean corpuscular hemoglobin concentration measurement (mass/volume) 36 g/dL 32-36 Automated erythrocyte distribution width ratio 12.9 % 10.0- 14.5 Automated blood platelet count (count/volume) 282 10*3/uL [...] Blood monocytes automated count (number/volume) 1.4 10*3 0.0- 1.0 Automated eosinophil count 0.2 10*3/uL 0.0-0.3 Automated [...] gravity of urine by test strip 1.005 1.016-1.022 Urine protein assay by test strip, semi-quantitative [...] sediment leukocyte count by microscopy (number/high power field) NONE NRG Bacteria detection in urine sediment [...] Complete urinalysis with reflex to culture - 10/10/17 12:20 Urine color determination YELLOW NRG Urine clarity determination CLEAR NRG Urine pH measurement by test strip 7 5-9 Specific gravity of urine by test strip 1.005 1.016-1.022 Urine protein assay by test strip, semi-quantitative [...] sediment leukocyte count by microscopy (number/high power field) NONE NRG Bacteria detection in urine sediment by light microscopy NEGATIVE NRG Crystals detection in urine sediment by light microscopy NONE NRG Casts detection in urine sediment by light microscopy NONE NRG Mucus detection in urine sediment by light microscopy NEGATIVE NRG Complete urinalysis with reflex to culture NO NRG Complete blood count (CBC) with automated white blood cell (WBC) differential - 10/10/17 12:27 Blood leukocytes automated count (number/volume) 10.4 10*3/uL 4.3-11.0 Blood erythrocytes automated count (number/volume) 4.20 10*6/uL 4.35-5.85 Venous blood hemoglobin measurement (mass/volume) 14.6 g/dL 11.5-16.0 Blood hematocrit (volume fraction) 42 % 35-52 Automated erythrocyte mean corpuscular volume 100 [foz_us] 80-99 Automated erythrocyte mean corpuscular hemoglobin (mass per erythrocyte) 35 pg 25-34 Automated erythrocyte mean corpuscular hemoglobin concentration measurement (mass/volume) 35 g/dL 32-36 Automated erythrocyte distribution width ratio 12.7 % 10.0- 14.5 Automated blood platelet count (count/volume) 276 10*3/uL 130-400 Automated blood platelet mean volume measurement 9.6 [foz_us] 7.4-10.4 Automated blood neutrophils/100 leukocytes 53 % 42-75 Automated blood lymphocytes/100 leukocytes 36 % 12-44 Blood monocytes/100 leukocytes 10 % 0-12 Automated blood eosinophils/100 leukocytes 1 % 0-10 Automated blood basophils/100 leukocytes 1 % 0-10 Blood neutrophils automated count (number/volume) 5.5 10*3 1.8-7.8 Blood lymphocytes automated count (number/volume) 3.7 10*3 1.0-4.0 Blood monocytes automated count (number/volume) 1.1 10*3 0.0- 1.0 Automated eosinophil count 0.1 10*3/uL 0.0-0.3 Automated blood basophil count (count/volume) 0.1 10*3/uL 0.0-0.1 Comprehensive metabolic panel - 10/10/17 12:27 Serum or plasma sodium measurement (moles/volume) 134 mmol/L 135-145 Serum or plasma potassium measurement (moles/volume) 3.7 mmol/L 3.6-5.0 Serum or plasma chloride measurement (moles/volume) 101 mmol/L 98-107 Carbon dioxide 23 mmol/L 21-32 Serum or plasma anion gap determination (moles/volume) 10 mmol/L 5-14 Serum or plasma urea nitrogen measurement (mass/volume) 10 mg/dL 7-18 Serum or plasma creatinine measurement (mass/volume) 0.57 mg/dL 0.60-1.30 Serum or plasma urea nitrogen/creatinine mass ratio 18 NRG Serum or plasma creatinine measurement with calculation of estimated glomerular filtration rate > NRG Serum or plasma glucose measurement (mass/volume) 89 mg/dL 70-105 Serum or plasma calcium measurement (mass/volume) 9.0 mg/dL 8.5-10.1 Serum or plasma total bilirubin measurement (mass/volume) 0.3 mg/dL 0.1-1.0 Serum or plasma alkaline phosphatase measurement (enzymatic activity/volume) 77 U/L 40-136 Serum or plasma aspartate aminotransferase measurement (enzymatic activity/volume) 20 U/L 5-34 Serum or plasma alanine aminotransferase measurement (enzymatic activity/volume) 13 U/L 0-55 Serum or plasma protein measurement (mass/volume) 7.2 g/dL 6.4-8.2 Serum or plasma albumin measurement (mass/volume) 4.6 g/dL 3.2-4.5 Serum or plasma ethanol measurement (mass/volume) - 10/10/17 12:27 Serum or plasma ethanol measurement (mass/volume) 345 mg/dL <10 Encounters ACCT No. Visit Date/Time Discharge Status Pt. Type Provider Facility Loc./Unit Complaint [id number] 02/16/2014 11:31:00 02/16/2014 23:59:59 CLS Outpatient HUMA LOZOYA MD [id number] 12/02/2013 06:43:00 12/02/2013 23:59:59 CLS Outpatient HUMA LOZOYA MD [id number] 11/27/2013 11:19:00 11/27/2013 23:59:59 CLS Outpatient HUMA LOZOYA MD [id number] 10/30/2013 12:59:00 10/30/2013 23:59:59 CLS Outpatient ADDIS SPRINGER APRN [id number] 09/18/2013 13:40:00 09/18/2013 23:59:59 CLS Outpatient HUMA LOZOYA MD [id number] 07/25/2013 16:53:00 07/25/2013 23:59:59 CLS Outpatient HUMA LOZOYA MD [id number] 06/02/2013 11:36:00 06/02/2013 23:59:59 CLS Outpatient BERRY BALDERRAMA DO [id number] 06/02/2013 11:36:00 06/02/2013 23:59:59 CLS Outpatient BERRY BALDERRAMA DO [id number] 04/17/2013 10:34:00 04/17/2013 23:59:59 CLS Outpatient APRIL QUINTANILLA APRN [id number] 04/17/2013 10:34:00 04/17/2013 23:59:59 CLS Outpatient APRIL QUINTANILLA APRN [id number] 03/02/2013 13:45:00 03/02/2013 23:59:59 CLS Outpatient HUMA LOZOYA MD [id number] 03/02/2013 13:45:00 03/02/2013 23:59:59 CLS Outpatient HUMA LOZOYA MD [id number] 01/18/2013 14:08:00 01/18/2013 23:59:59 CLS Outpatient HUMA LOZOYA MD [id number] 12/19/2012 11:31:00 12/19/2012 23:59:59 CLS Outpatient HUMA LOZOYA MD [id number] 09/29/2012 16:24:00 09/29/2012 23:59:59 CLS Outpatient HUMA LOZOYA MD [id number] 03/28/2012 11:42:00 03/28/2012 23:59:59 CLS Outpatient HUMA LOZOYA MD [id number] 02/22/2012 09:43:00 02/22/2012 23:59:59 CLS Outpatient BERRY BALDERRAMA DO Benny [id number] 02/19/2012 13:27:00 02/19/2012 23:59:59 CLS Outpatient TACOS LEDESMABERRY [id number] 10/02/2011 09:36:00 10/02/2011 23:59:59 [place] [id number] 10/02/2011 09:36:00 10/02/2011 23:59:59 CLS Outpatient [id number] 06/24/2012 13:29:00 Document Registration [id number] 10/12/2017 15:37:00 10/12/2017 16:02:00 DIS Emergency JENIFER MULLINS [facility] ER ETOH [id number] 10/10/2017 12:17:00 10/10/2017 14:11:00 DIS Emergency MARINA MULLINSIS [facility] ER SOB/ETOH [id number] 08/19/2017 18:05:00 08/19/2017 18:55:00 DIS Emergency LI LOPEZ APRN [facility] ER SOB/ETOH DETOX [id number] 06/08/2017 20:29:00 06/08/2017 21:10:00 DIS Emergency MELISSA GARCIA [facility] ER SOA [id number] 05/29/2017 16:55:00 05/29/2017 18:10:00 DIS Emergency SHAHANA ROSENTHAL [facility] ER SOA [id number] 05/21/2017 21:00:00 05/21/2017 22:16:00 DIS Emergency LI LOPEZ APRN [facility] ER SOB [id number] 05/19/2017 17:05:00 05/19/2017 17:31:00 DIS Outpatient ASHLYN PINEDO, HONEY Donaldson [facility] ER SOA [id number] 05/11/2017 21:12:00 05/11/2017 21:57:00 DIS Emergency MELISSA GARCIA [facility] ER SOA [id number] 04/06/2017 18:38:00 04/06/2017 20:05:00 DIS Emergency MELISSA GARCIA [facility] ER ANKLE PAIN [id number] 04/06/2017 12:39:00 04/06/2017 15:08:00 DIS Emergency RIK PINEDO, MALIA Atkins [facility] ER DRUG/ETOH ABUSE [id number] 07/11/2016 16:09:00 07/11/2016 19:12:00 DIS Emergency MELISSA GARCIA [facility] ER ALCOHOL INTOX [id number] 03/03/2016 15:38:00 03/03/2016 16:45:00 DIS Emergency 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 [facility] ER R ANKLE PAIN [id number] 05/02/2015 16:39:00 05/04/2015 13:14:00 DIS Inpatient CHINMAY PINEDO, FINESSE Trammell [facility] 4TH RLL PNUEMONIA [id number] 11/19/2013 22:15:00 11/20/2013 10:50:00 DIS Inpatient DANICA LERNER MD [facility] ICU ETOH INTOXICATION, AMS [id number] 10/02/2013 15:43:00 10/03/2013 14:03:00 DIS Inpatient BERRY BALDERRAMA DO [facility] ICU SUICIDAL/HOMICIDAL IDEATION, ETOH INTOXICATION [id number] 04/27/2013 09:25:00 04/27/2013 23:59:59 CLS Outpatient APRIL QUINTANILLA 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 [facility] RAD OSTEOPENIA [id number] 03/06/2013 10:54:00 03/06/2013 23:59:59 CLS Outpatient HUMA LOZOYA MD [facility] RAD SCREENING [id number] 11/14/2012 15:16:00 11/14/2012 23:59:59 CLS Outpatient [id number] 09/19/2012 13:31:00 09/19/2012 23:59:59 CLS Outpatient [id number] 08/22/2012 15:17:00 08/22/2012 23:59:59 CLS Outpatient [id number] 08/04/2012 14:36:00 08/04/2012 23:59:59 CLS Outpatient [id number] 07/20/2012 12:07:00 07/20/2012 13:45:00 DIS Emergency FRANCISCO ACEVEDO DO [facility] ER FELL INJ L ARM [id number] 06/29/2018 20:32:00 ACT Emergency AMBER MCKEON DO [facility] ER FALL [id number] 09/13/2017 11:13:00 Document Registration [id number] 03/16/2014 10:56:00 Document Registration [id number] 03/04/2012 10:23:00 Document Registration [id number] 01/13/2013 16:48:57 ACT Document Registration [id number] 04/08/2017 14:00:00 04/08/2017 23:59:59 CLS Outpatient DEVORA PINEDO, HUMA [facility]
--- NOTE | 2018-06-29 22:47 | Diagnostic Imaging Report ---
Clinical indication: Patient is status post fall laceration right orbit. Exam: Axial Head CT without IV contrast. Axial Maxillofacial CT scan without IV contrast with sagittal and coronal reformations. Axial CT scan of the cervical spine with sagittal and coronal reformations. Comparison: Head CT without contrast dated 05/02/2015. Findings: Motion artifact limits evaluation of portions of this exam. Head CT: There is no evidence of acute cerebral infarct, intracranial hemorrhage, or gross mass effect. The brain parenchymal volume appears appropriate for patient's age. There is focal and patchy areas of low-attenuation white matter changes involving both cerebral hemispheres, likely representing chronic small vessel ischemic disease which has slightly progressed in the interim. There is interval development of a chronic lacunar infarct involving the left basal ganglia region. There is normal an-white matter distinction. There is no significant midline shift or herniation. There is no evidence of hydrocephalus. The basal cisterns are unremarkable. Maxillofacial and skull CT: There is no skull or maxillofacial fracture. There appears to be a chronic defect involving the right zygomatic arch more posteriorly. There is no adjacent soft tissue swelling. Correlation for pain in this region would better evaluate. The skull, extracranial soft tissue and orbits are unremarkable. There is mild mucosal thickening involving both maxillary sinuses, ethmoid sinus and sphenoid sinus. There is sclerosis of the left mastoid air cells. Cervical spine CT: The sagittal and coronal reformatted images are of low quality with stairstep artifact likely related to slice thickness of axial source images. There is no gross fracture or dislocation, as visualized, which is most determined on the axial sequence. There is cervical spine degenerative spurs and facet arthropathy. There is no significant neck soft tissue abnormality. Visualized upper lung cook show mild bilateral apical pleural-parenchymal thickening/scarring. Impression: 1: There is no evidence of acute intracranial process. There is no intracranial hemorrhage. 2: There is a bony defect involving the posterior aspect of the right zygomatic arch which appears chronic. There is no adjacent soft tissue swelling. Correlation for pain in this region would better evaluate. 3: Otherwise, there is no evidence of acute skull or maxillofacial fracture. 4: Limited visualization of the cervical spine, as described above. There is cervical degenerative disease with no gross acute fracture or dislocation. 5: Progression of age-related brain parenchymal changes. There is interval development of a chronic lacunar infarct involving the left basal ganglia. Dictated by: Dictated on workstation # [id number]
[2018-06-29 23:20] VITALS: BP 97/58
== END 2018-06-29 23:16 | disposition home or self-care (01) ==
LOC: EDUNIT# 20:31 → ER 20:32
DX: S00.83XA Contusion of other part of head, initial encounter (principal); J44.9 Chronic obstructive pulmonary disease, unspecified; F41.9 Anxiety disorder, unspecified; F31.9 Bipolar disorder, unspecified; R40.2142 Coma scale, eyes open, spontaneous, at arrival to emergency department; R40.2252 Coma scale, best verbal response, oriented, at arrival to emergency department; R40.2362 Coma scale, best motor response, obeys commands, at arrival to emergency department; Z79.82 Long term (current) use of aspirin; Z77.22 Contact with and (suspected) exposure to environmental tobacco smoke (acute) (chronic); Z80.8 Family history of malignant neoplasm of other organs or systems; W01.198A Fall on same level from slipping, tripping and stumbling with subsequent striking against other object, initial encounter
CPT/HCPCS: 70450; 70486; 72125

== ENCOUNTER 2018-06-30 18:55 | Emergency (ER) | payer MEDICAID ==
--- OUTSIDE RECORDS SUMMARY | 2018-07-06 14:44 | XMS REPORT | Continuity of Care Document ---
Author Organization Unknown Address Unknown Allergies Active Description Code Type Severity Reaction Onset Reported/Identified Relationship to Patient Clinical Status Yes No Known Drug Allergies [id number] Drug Allergy Unknown N/A 07/20/2012 Medications There [...] 305.1 NONDEPENDENT TOBACCO USE DISORDER 04/01/2010 HUMA OLZOYA MD 465.9 Upper Respiratory Infection 04/01/2010 DWIGHT PROJECT MANAGER/DESIGN MANAGER, APRIL A 305.1 NONDEPENDENT TOBACCO USE DISORDER [...] TUNNEL SYNDROME 05/14/2010 HUMA LOZOYA MD V72.31 Hammer Setter Exam, Routine 05/14/2010 BALDERRAMA DO BERRY K 354.0 CARPAL TUNNEL SYNDROME 05/14/2010 BALDERRAMA DO BERRY K V72.31 Hammer Setter Exam, Routine 05/14/2010 BALDERRAMA DO BERRY K 354.0 CARPAL TUNNEL SYNDROME 05/14/2010 BALDERRAMA DOBERRY V72.31 Hammer Setter Exam, Routine 05/14/2010 DEVORA PINEDO, HUMA 354.0 CARPAL TUNNEL SYNDROME 05/14/2010 DEVORA PINEDO, HUMA V72.31 Hammer Setter Exam, Routine 05/14/2010 354.0 CARPAL TUNNEL SYNDROME 05/14/2010 V72.31 Hammer Setter Exam, Routine 05/14/2010 DEVORA PINEDO, HUMA 354.0 CARPAL TUNNEL SYNDROME 05/14/2010 EDVORA PINEDO, HUMA V72.31 Hammer Setter Exam, Routine 05/14/2010 DEVORA PINEDO, HUMA 354.0 CARPAL TUNNEL SYNDROME 05/14/2010 DEVORA PINEDO, HUMA V72.31 Hammer Setter Exam, Routine 05/14/2010 DEVORA PINEDO, HUMA 354.0 CARPAL TUNNEL SYNDROME 05/14/2010 DEVORA PINEDO, HUMA V72.31 Hammer Setter Exam, Routine 05/14/2010 DEVORA PINEDO, HUMA 354.0 CARPAL TUNNEL SYNDROME 05/14/2010 HUMA LOZOYA MD V72.31 Hammer Setter Exam, Routine 05/14/2010 DEVORA PINEDO, HUMA 354.0 CARPAL TUNNEL SYNDROME 05/14/2010 HUMA LOZOYA MD V72.31 Hammer Setter Exam, Routine 05/14/2010 DWIGHT FAIRCHILD, APRIL A 354.0 CARPAL TUNNEL SYNDROME 05/14/2010 APRIL QUINTANILLA APRN V72.31 Hammer Setter Exam, Routine 05/14/2010 JI QUINTANILLA APRNIDI A 354.0 CARPAL TUNNEL SYNDROME 05/14/2010 APRIL QUINTANILLA APRN V72.31 Hammer Setter Exam, Routine 05/14/2010 BALDERRAMA DOJEOVANNYA K 354.0 CARPAL TUNNEL SYNDROME 05/14/2010 TACOS DOJEOVANNYA K V72.31 Hammer Setter Exam, Routine 05/14/2010 BALDERRAMA DO BERRY K 354.0 CARPAL TUNNEL SYNDROME 05/14/2010 BERRY BALDERRAMA DO V72.31 Hammer Setter Exam, Routine 05/14/2010 DEVORA PINEDO, HUMA 354.0 CARPAL TUNNEL SYNDROME 05/14/2010 HUMA LOZOYA MD V72.31 Hammer Setter Exam, Routine 05/14/2010 DEVORA PINEDO, HUMA 354.0 CARPAL TUNNEL SYNDROME 05/14/2010 HUMA LOZOYA MD V72.31 Hammer Setter Exam, Routine 05/14/2010 ADDIS SPRINGER APRN A 354.0 CARPAL TUNNEL SYNDROME 05/14/2010 ADDIS SPRINGER APRN A V72.31 Hammer Setter Exam, Routine 05/14/2010 HUMA LOZOYA MD 354.0 CARPAL TUNNEL SYNDROME 05/14/2010 HUMA LOZOYA MD V72.31 Hammer Setter Exam, Routine 05/14/2010 HUMA LOZOYA MD 354.0 CARPAL TUNNEL SYNDROME 05/14/2010 HUMA LOZOYA MD V72.31 Hammer Setter Exam, Routine 05/14/2010 354.0 CARPAL TUNNEL SYNDROME 05/14/2010 V72.31 Hammer Setter Exam, Routine 05/14/2010 HUMA LOZOYA MD 354.0 CARPAL TUNNEL SYNDROME 05/14/2010 HUMA LOZOYA MD V72.31 Hammer Setter Exam, Routine 06/09/2010 HUMA LOZOYA MD 381.81 [...] ABNORMALITY OF RED BLOOD CELLS 08/15/2010 ADDIS SPRINEGR APRN 790.09 OTHER ABNORMALITY OF RED BLOOD [...] MD 300.00 ANXIETY STATE UNSPECIFIED 08/20/2010 HUMA LOOZYA MD 300.00 ANXIETY STATE UNSPECIFIED 08/20/2010 HUMA [...] 780.79 OTHER MALAISE AND FATIGUE 05/05/2011 DWIGHT PROJECT MANAGER/DESIGN MANAGER, APRIL A 780.79 OTHER MALAISE AND FATIGUE 05/05/2011 DWIGHT PROJECT MANAGER/DESIGN MANAGER, APRIL A 780.79 OTHER MALAISE AND FATIGUE [...] CERVICAL CANCER SCREENING (PAP SMEAR) 02/19/2012 APRIL QUINATNILLA APRN A 627.2 MENOPAUSAL SX 02/19/2012 APRIL [...] MD V58.69 MEDICATION HIGH RISK 01/18/2013 DWIGHT PROJECT MANAGER/DESIGN MANAGER, APRIL A V58.69 MEDICATION HIGH RISK 01/18/2013 [...] SCREENING MAMMOGRAM FOR HIGH-RISK PATIENT 04/17/2013 DWIGHT PROJECT MANAGER/DESIGN MANAGER, APRIL A V65.42 COUNSELING - SMOKING CESSATION [...] V65.42 COUNSELING - SMOKING CESSATION 04/17/2013 GIAN PROJECT MANAGER/DESIGN MANAGERADDIS Tanner V65.49 OTHER SPECIFIED COUNSELING 04/17/2013 GIAN PROJECT MANAGER/DESIGN MANAGERADDIS Tanner V76.10 BREAST CANCER SCREENING 04/17/2013 SPRINGER PROJECT MANAGER/DESIGN MANAGERADDIS Tanner V76.51 COLON CANCER SCREENING 04/17/2013 ADDIS SPRINGER APRN V82.81 SPECIAL SCREENING FOR OSTEOPOROSIS 04/17/2013 HUMA LOZOYA MD V65.42 COUNSELING - SMOKING CESSATION 04/17/2013 HUMA LOZOYA MD V65.49 OTHER SPECIFIED COUNSELING 04/17/2013 HUMA LOZOYA MD V76.10 BREAST CANCER SCREENING 04/17/2013 HUMA LOZOYA MD V76.51 COLON CANCER SCREENING 04/17/2013 HUAM LOZOYA MD V82.81 SPECIAL SCREENING FOR OSTEOPOROSIS [...] QUINTANILLA APRN Ot 733.90 03/16/2014 APRIL QUINTANILLA PROJECT MANAGER/DESIGN MANAGER Ot V65.42 03/16/2014 APRIL QUINTANILLA PROJECT MANAGER/DESIGN MANAGER Ot V65.49 03/16/2014 APRIL QUINTANILLA PROJECT MANAGER/DESIGN MANAGER Ot V76.12 03/16/2014 APRIL QUINTANILLA PROJECT MANAGER/DESIGN MANAGER Ot V76.51 03/16/2014 APRIL QUINTANILLA PROJECT MANAGER/DESIGN MANAGER Ot V82.81 03/19/2014 HUMA LOZOYA MD V76.10 [...] LOPEZ APRN Ot Y92.[address] IN [facility] NON-INSTITUT (PRIVATE 03/03/2016 LI LOPEZ APRN Ot [...] OTHER SPECIFIED COUNSELING 03/03/2016 DWIGHT, APRIL A PROJECT MANAGER/DESIGN MANAGER Ot V76.12 OTH SCREEN MAMMO-MALIGN NEOPLASM OF ETIENNE 03/03/2016 JI QUINTANILLAIDI Jp PROJECT MANAGER/DESIGN MANAGER Ot V76.51 SCREEN MAL NEOP-COLON 03/03/2016 JI QUINTANILLAIDI Jp PROJECT MANAGER/DESIGN MANAGER Ot V82.81 SCREENING FOR OSTEOPOROSIS 03/03/2016 Ot V76.12 OTH SCREEN MAMMO- MALIGN NEOPLASM OF ETIENNE 03/03/2016 HUMA LOZOYA MD Ot V76.12 OTH SCREEN MAMMO-MALIGN NEOPLASM OF ETIENNE 03/03/2016 JI QUINTANILLAIDI Jp PROJECT MANAGER/DESIGN MANAGER Ot 733.90 BONE CARTILAGE DIS NOS 03/03/2016 DWIGHTJIAPRIL Jp PROJECT MANAGER/DESIGN MANAGER Ot V65.42 COUNSELING ON SUBSTANCE USE AND ABUSE 03/03/2016 DWIGHT, APRIL A PROJECT MANAGER/DESIGN MANAGER Ot V65.49 OTHER SPECIFIED COUNSELING 03/03/2016 DWIGHTJIAPRIL Jp PROJECT MANAGER/DESIGN MANAGER Ot V76.12 OTH SCREEN MAMMO-MALIGN NEOPLASM OF ETIENNE 03/03/2016 DWIGHTJIAPRIL Jp PROJECT MANAGER/DESIGN MANAGER Ot V76.51 SCREEN MAL NEOP-COLON 03/03/2016 JI QUINTANILLAIDI Jp PROJECT MANAGER/DESIGN MANAGER Ot V82.81 SCREENING FOR OSTEOPOROSIS 03/04/2016 LI LOPEZ APRN Ot J44.9 CHRONIC OBSTRUCTIVE PULMONARY DISEASE, U 03/04/2016 LI LOPEZ APRN Ot S82.401A [facility] FRACTURE OF SHAFT OF RIGHT FIBULA, 03/04/2016 LI LOPEZ APRN Ot S99.911A UNSPECIFIED INJURY OF RIGHT ANKLE, INITI 03/04/2016 LI LOPEZ APRN Ot X58.XXXA EXPOSURE TO OTHER SPECIFIED FACTORS, INI 03/04/2016 LI LOPEZ APRN Ot Y92.[address] IN [facility] NON-INSTITUT (PRIVATE 03/04/2016 LI LOPEZ APRN Ot Y99.8 OTHER EXTERNAL CAUSE STATUS 03/04/2016 LI LOPEZ APRN Ot Z79.82 PRODUCTION SUPERVISOR TRAINEE (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 OF ASPIRIN 03/04/2016 LI LOPEZ APRN Ot Z79.899 OTHER PRODUCTION SUPERVISOR TRAINEE (CURRENT) DRUG THERAPY 03/05/2016 LI LOPEZ APRN Ot J44.9 CHRONIC OBSTRUCTIVE PULMONARY DISEASE, U 03/05/2016 LI LOPEZ APRN Ot S82.401A UNSP FRACTURE OF SHAFT OF RIGHT FIBULA, 03/05/2016 LI LOPEZ PROJECT MANAGER/DESIGN MANAGER Ot S99.911A UNSPECIFIED INJURY OF RIGHT ANKLE, INITI 03/05/2016 LI LOPEZ APRN Ot X58.XXXA EXPOSURE TO OTHER SPECIFIED FACTORS, INI 03/05/2016 LI LOPEZ APRN Ot Y92.[address] IN [facility] NON-INSTITUT (PRIVATE 03/05/2016 LI LOPEZ APRN Ot Y99.8 OTHER EXTERNAL CAUSE STATUS 03/05/2016 LI LOPEZ APRN Ot Z79.82 RESIDENTIAL (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 OF ASPIRIN 03/05/2016 LI LOPEZ APRN Ot Z79.899 OTHER RESIDENTIAL (CURRENT) DRUG THERAPY 07/11/2016 MELISSA GARCIA Ot F10.129 ALCOHOL ABUSE WITH INTOXICATION, UNSPECI 07/11/2016 MELISSA GARCIA Ot F17.210 NICOTINE DEPENDENCE, CIGARETTES, UNCOMPL 07/11/2016 MELISSA GARCIA Ot J44.9 CHRONIC OBSTRUCTIVE PULMONARY DISEASE, U 07/11/2016 MELISSA GARCIA Ot Y90.6 BLOOD ALCOHOL LEVEL OF 120-199 MG/100 ML 07/11/2016 MELISSA GARCIA Ot Z79.82 RESIDENTIAL (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 OF ASPIRIN 07/11/2016 MELISSA GARCIA Ot Z79.899 OTHER PRODUCTION SUPERVISOR TRAINEE (CURRENT) DRUG THERAPY 04/06/2017 MALIA JOLLY MD [...] R 04/08/2017 MALIA JOLLY MD Ot Z79.82 RESIDENTIAL (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 OF ASPIRIN 04/08/2017 MALIA JOLLY [...] FACTORS, INI 04/08/2017 MELISSA GARCIA Ot Z79.82 RESIDENTIAL (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 OF ASPIRIN 04/08/2017 MELISSA GARCIA [...] NEOPLASM OF ETIENNE 05/19/2017 DWIGHT, APRIL A PROJECT MANAGER/DESIGN MANAGER Ot 733.90 BONE CARTILAGE DIS NOS 05/19/2017 DWIGHT, APRIL A PROJECT MANAGER/DESIGN MANAGER Ot V65.42 COUNSELING ON SUBSTANCE USE AND ABUSE 05/19/2017 DWIGHT, APRIL A PROJECT MANAGER/DESIGN MANAGER Ot V65.49 OTHER SPECIFIED COUNSELING 05/19/2017 DWIGHT, APRIL A PROJECT MANAGER/DESIGN MANAGER Ot V76.12 OTH SCREEN MAMMO-MALIGN NEOPLASM OF ETIENNE 05/19/2017 DWIGHT, APRIL A PROJECT MANAGER/DESIGN MANAGER Ot V76.51 SCREEN MAL NEOP-COLON 05/19/2017 DWIGHT, APRIL A PROJECT MANAGER/DESIGN MANAGER Ot V82.81 SCREENING FOR OSTEOPOROSIS 05/19/2017 MELISSA GARCIA Ot R06.02 SHORTNESS OF BREATH 05/19/2017 Ot V76.12 OTH SCREEN MAMMO- MALIGN NEOPLASM OF ETIENNE 05/19/2017 HUMA LOZOYA MD Ot V76.12 OTH SCREEN MAMMO-MALIGN NEOPLASM OF ETIENNE 05/19/2017 DWIGHT, APRIL A PROJECT MANAGER/DESIGN MANAGER Ot 733.90 BONE CARTILAGE DIS NOS 05/19/2017 DWIGHT, APRIL A PROJECT MANAGER/DESIGN MANAGER Ot V65.42 COUNSELING ON SUBSTANCE USE AND ABUSE 05/19/2017 DWIGHT, APRIL A PROJECT MANAGER/DESIGN MANAGER Ot V65.49 OTHER SPECIFIED COUNSELING 05/19/2017 DWIGHT, APRIL A PROJECT MANAGER/DESIGN MANAGER Ot V76.12 OTH SCREEN MAMMO-MALIGN NEOPLASM OF ETIENNE 05/19/2017 DWIGHT, APRIL A PROJECT MANAGER/DESIGN MANAGER Ot V76.51 SCREEN MAL NEOP-COLON 05/19/2017 DWIGHT, APRIL A PROJECT MANAGER/DESIGN MANAGER Ot V82.81 SCREENING FOR OSTEOPOROSIS 05/19/2017 MELISSA GARCIA Ot R06.02 SHORTNESS OF BREATH 05/20/2017 Ot V76.12 OTH SCREEN MAMMO- MALIGN NEOPLASM OF ETIENNE 05/20/2017 DEVORA PINEDO, HUMA Sparks Ot V76.12 OTH SCREEN MAMMO-MALIGN NEOPLASM OF ETIENNE 05/20/2017 APRIL QUINTANILLA Jp PROJECT MANAGER/DESIGN MANAGER Ot 733.90 BONE CARTILAGE DIS NOS 05/20/2017 DWIGHTJIAPRIL A PROJECT MANAGER/DESIGN MANAGER Ot V65.42 COUNSELING ON SUBSTANCE USE AND ABUSE 05/20/2017 DWIGHTJIAPRIL A PROJECT MANAGER/DESIGN MANAGER Ot V65.49 OTHER SPECIFIED COUNSELING 05/20/2017 JI QUINTANILLAIDI Jp PROJECT MANAGER/DESIGN MANAGER Ot V76.12 OTH SCREEN MAMMO-MALIGN NEOPLASM OF ETIENNE 05/20/2017 JI QUINTANILLAGYPSY Trammell PROJECT MANAGER/DESIGN MANAGER Ot V76.51 SCREEN MAL NEOP-COLON 05/20/2017 DWIGHT APRIL A PROJECT MANAGER/DESIGN MANAGER Ot V82.81 SCREENING FOR OSTEOPOROSIS 05/21/2017 ASHLYN [...] BREATH 05/21/2017 LI LOPEZ APRN Ot Z79.82 RESIDENTIAL (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 OF ASPIRIN 05/21/2017 LI LOPEZ [...] BREATH 05/24/2017 LI LOPEZ APRN Ot Z79.82 RESIDENTIAL (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 OF ASPIRIN 05/24/2017 LI LOPEZ APRN Ot Z80.8 FAMILY HISTORY OF MALIGNANT NEOPLASM OF 05/24/2017 LI LOPEZ APRN Ot Z87.448 PERSONAL HISTORY OF OTHER DISEASES OF UR 05/24/2017 LI LOPEZ APRN Ot Z91.5 PERSONAL HISTORY OF SELF-HARM 05/29/2017 SHAHANA ROSENTHALP Ot F10.129 ALCOHOL ABUSE WITH INTOXICATION, UNSPECI 05/29/2017 SHAHANA ROSENTHAL TUMBLER MACHINE OPERATOR HELPER Ot F12.90 CANNABIS USE, UNSPECIFIED, UNCOMPLICATED 05/29/2017 SHAHANA ROSENTHALP Ot F31.9 BIPOLAR DISORDER, UNSPECIFIED 05/29/2017 SHAHANA ROSENTHALP Ot F41.9 ANXIETY DISORDER, UNSPECIFIED 05/29/2017 SHAHANA ROSENTHAL TUMBLER MACHINE OPERATOR HELPER Ot G47.30 SLEEP APNEA, UNSPECIFIED 05/29/2017 SHAHANA ROSENTHALP Ot G47.9 SLEEP DISORDER, UNSPECIFIED 05/29/2017 SHAHANA ROSENTHALP Ot J44.9 CHRONIC OBSTRUCTIVE PULMONARY DISEASE, U 05/29/2017 SHAHANA ROSENTHAL TUMBLER MACHINE OPERATOR HELPER Ot R06.02 SHORTNESS OF BREATH 05/29/2017 SHAHANA ROSENTHALP Ot Z77.22 CNTCT W AND EXPSR TO ENVIRON TOBACCO SMO 05/29/2017 SHAHANA ROSENTHAL TUMBLER MACHINE OPERATOR HELPER Ot Z79.82 RESIDENTIAL (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 OF ASPIRIN 05/29/2017 SHAHANA ROSENTHAL TUMBLER MACHINE OPERATOR HELPER Ot Z87.81 PERSONAL HISTORY OF (HEALED) TRAUMATIC [...] DISEASE, U 06/08/2017 MELISSA GARCIA Ot Z79.82 RESIDENTIAL (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 OF ASPIRIN 06/08/2017 MELISSA GARCIA [...] DISEASE, U 06/10/2017 MELISSA GARCIA Ot Z79.82 RESIDENTIAL (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 OF ASPIRIN 06/10/2017 MELISSA GARCIA Ot Z80.8 FAMILY HISTORY OF MALIGNANT NEOPLASM OF 06/10/2017 MELISSA GARCIA Ot Z91.5 PERSONAL HISTORY OF SELF-HARM 08/19/2017 LI LOPEZ APRN Ot F10.229 ALCOHOL DEPENDENCE WITH INTOXICATION, UN 08/19/2017 LI LOPEZ PROJECT MANAGER/DESIGN MANAGER Ot F12.10 CANNABIS ABUSE, UNCOMPLICATED 08/19/2017 LI [...] SMO 08/19/2017 LI LOPEZ APRN Ot Z79.82 PRODUCTION SUPERVISOR TRAINEE (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 OF ASPIRIN 08/19/2017 LI LOPEZ [...] SMO 08/23/2017 LI LOPEZ APRN Ot Z79.82 PRODUCTION SUPERVISOR TRAINEE (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 OF ASPIRIN 08/23/2017 LI LOPEZ PROJECT MANAGER/DESIGN MANAGER Ot Z80.8 FAMILY HISTORY OF MALIGNANT NEOPLASM [...] TO ENVIRON TOBACCO SMO 09/13/2017 Ot Z79.82 PRODUCTION SUPERVISOR TRAINEE (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 OF ASPIRIN 09/13/2017 Ot Z80.8 [...] TOBACCO SMO 10/10/2017 MARINA MULLINSIS Ot Z79.82 PRODUCTION SUPERVISOR TRAINEE (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 OF ASPIRIN 10/10/2017 HARPREET JENIFER [...] BERNOTMARINAIS Ot G47.30 SLEEP APNEA, UNSPECIFIED 10/12/2017 BERNOT, JENIFER Ot J44.9 CHRONIC OBSTRUCTIVE PULMONARY DISEASE, U 10/12/2017 JENIFER MULLINS Ot R06.02 SHORTNESS OF BREATH 10/12/2017 JENIFER MULLINS Ot Z77.22 CNTCT W AND EXPSR TO ENVIRON TOBACCO SMO 10/12/2017 JENIFER MULLINS Ot Z79.82 PRODUCTION SUPERVISOR TRAINEE (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 OF ASPIRIN 10/12/2017 JENIFER MULLINS Ot Z80.8 FAMILY HISTORY OF MALIGNANT NEOPLASM OF 10/12/2017 JENIFER MULLINS Ot Z87.448 PERSONAL HISTORY OF OTHER DISEASES OF UR 10/12/2017 JENIFER MULLINS Ot Z91.5 PERSONAL HISTORY OF SELF-HARM 10/12/2017 JENIFER MULLINS Ot F10.10 ALCOHOL ABUSE, UNCOMPLICATED 10/15/2017 JENIFER MULLINS Ot F10.10 ALCOHOL ABUSE, UNCOMPLICATED 10/15/2017 JENIFER MULLINS Ot F10.10 ALCOHOL ABUSE, UNCOMPLICATED 10/15/2017 JENIFER MULLINS Ot F10.10 ALCOHOL ABUSE, UNCOMPLICATED 07/01/2018 JENIFER MULLINS Ot F31.9 BIPOLAR DISORDER, UNSPECIFIED 07/01/2018 JENIFER MULLINS Ot F41.9 ANXIETY DISORDER, UNSPECIFIED 07/01/2018 JENIFER MULLINS Ot J44.9 CHRONIC OBSTRUCTIVE PULMONARY DISEASE, U 07/01/2018 JENIFER MULLINS Ot R40.2142 COMA SCALE, EYES OPEN, SPONTANEOUS, EMR 07/01/2018 JENIFER MULLINS Ot R40.2252 COMA SCALE, BEST VERBAL RESPONSE, ORIENT 07/01/2018 JENIFER MULLINS Ot R40.2362 COMA SCALE, BEST MOTOR RESPONSE, OBEYS C 07/01/2018 JENIFER MULLINS Ot S00.83XA CONTUSION OF OTHER PART OF HEAD, INITIAL 07/01/2018 JENIFER MULLINS Ot S09.93XA UNSPECIFIED INJURY OF FACE, INITIAL ENCO 07/01/2018 JENIFER MULLINS Ot W01.198A FALL SAME LEV FROM SLIP/TRIP W STRIKE AG 07/01/2018 JENIFER MULLINS Ot Z77.22 CNTCT W AND EXPSR TO ENVIRON TOBACCO SMO 07/01/2018 JENIFER MULLINS Ot Z79.82 RESIDENTIAL (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 OF ASPIRIN 07/01/2018 JENIFER MULLINS Ot Z80.8 FAMILY HISTORY OF MALIGNANT NEOPLASM OF 07/05/2018 JENIFER MULLINS Ot F31.9 BIPOLAR DISORDER, UNSPECIFIED 07/05/2018 JEINFER MULLINS Ot F41.9 ANXIETY DISORDER, UNSPECIFIED 07/05/2018 JENIFER MULLINS Ot J44.9 CHRONIC OBSTRUCTIVE PULMONARY DISEASE, U 07/05/2018 JENIFER MULLINS Ot R40.2142 COMA SCALE, EYES OPEN, SPONTANEOUS, EMR 07/05/2018 JENIFER MULLINS Ot R40.2252 COMA SCALE, BEST VERBAL RESPONSE, ORIENT 07/05/2018 JENIFER MULLINS Ot R40.2362 COMA SCALE, BEST MOTOR RESPONSE, OBEYS C 07/05/2018 JENIFER MULLINS Ot S00.83XA CONTUSION OF OTHER PART OF HEAD, INITIAL 07/05/2018 JENIFER MULLINS Ot S09.93XA UNSPECIFIED INJURY OF FACE, INITIAL ENCO 07/05/2018 JENIFER MULLINS Ot W01.198A FALL SAME LEV FROM SLIP/TRIP W STRIKE AG 07/05/2018 JENIFER MULLINS Ot Z77.22 CNTCT W AND EXPSR TO ENVIRON TOBACCO SMO 07/05/2018 JENIFER MULLINS Ot Z79.82 RESIDENTIAL (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 OF ASPIRIN 07/05/2018 JENIFER MULLINS Ot Z80.8 FAMILY HISTORY OF MALIGNANT NEOPLASM OF Procedures Code Description Performed By Performed On Psychiatr [facility], Mental Health 10/09/2011 28578 UA W/ CULTURE IF INDICATED 02/19/2012 48865 ROUTINE VENIPUNCTURE 02/22/2012 61827 CBC 02/22/2012 43568 LIPID PANEL 02/22/2012 23530 CMP 02/22/2012 [id number] GFR CALC (RESULT ONLY) 02/22/2012 25894 TSH 02/23/2012 30760 MAMMOGRAM, SCREENING 02/23/2012 39177 HEMOCCULT 02/23/2012 97615 PAP SMEAR 02/23/2012 Q0091 PAP SMEAR OBTAIN SMEAR 02/23/2012 39272 URINE DRUG SCREEN (IN-HOUSE) 01/18/2013 09849 MAMMOGRAM, SCREENING 01/19/2013 URINEDRUG URINE DRUG SCREEN (CON'F) 01/19/2013 29176 BONE DENSITY, DEXA 04/17/2013 GENERAL S Kido, Ken 04/17/2013 78147 BONE MINERAL DENSITY, HEEL US (IN HOUSE) 04/17/2013 84806 XRAY CERVICAL SPINE, 2 OR 3 VIEWS 06/02/2013 29518 ROUTINE VENIPUNCTURE 02/16/2014 41509 MAMMOGRAM, SCREENING 02/16/2014 1055056 GFR CALC (RESULT ONLY) 02/16/2014 06198 CMP 02/16/2014 Results Test Result Range Complete [...] Status Pt. Type Provider Facility Loc./Unit Complaint [id number] 02/16/2014 11:31:00 02/16/2014 23:59:59 CLS Outpatient HUMA LOZOYA MD [id number] 12/02/2013 06:43:00 12/02/2013 23:59:59 CLS Outpatient HUMA LOZOYA MD [id number] 11/27/2013 11:19:00 11/27/2013 23:59:59 CLS Outpatient HUMA LOZOYA MD [id number] 10/30/2013 12:59:00 10/30/2013 23:59:59 CLS Outpatient ADDIS SPRINGER APRN [id number] 09/18/2013 13:40:00 09/18/2013 23:59:59 CLS Outpatient HUMA LOZOYA MD [id number] 07/25/2013 16:53:00 07/25/2013 23:59:59 CLS Outpatient HUMA LOZOYA MD [id number] 06/02/2013 11:36:00 06/02/2013 23:59:59 CLS Outpatient BERRY BALDERRAMA DO [id number] 06/02/2013 11:36:00 06/02/2013 23:59:59 CLS Outpatient BERRY BALDERRAMA DO [id number] 04/17/2013 10:34:00 04/17/2013 23:59:59 CLS Outpatient APRIL QUINTANILLA APRN [id number] 04/17/2013 10:34:00 04/17/2013 23:59:59 CLS Outpatient APRIL QUINTANILLA APRN [id number] 03/02/2013 13:45:00 03/02/2013 23:59:59 CLS Outpatient HUMA LOZOYA MD [id number] 03/02/2013 13:45:00 03/02/2013 23:59:59 CLS Outpatient HUMA LOZOYA MD [id number] 01/18/2013 14:08:00 01/18/2013 23:59:59 CLS Outpatient HUMA LOZOYA MD [id number] 12/19/2012 11:31:00 12/19/2012 23:59:59 CLS Outpatient HUMA LOZOYA MD [id number] 09/29/2012 16:24:00 09/29/2012 23:59:59 CLS Outpatient HUMA LOZOYA MD [id number] 03/28/2012 11:42:00 03/28/2012 23:59:59 CLS Outpatient HUMA LOZOYA MD [id number] 02/22/2012 09:43:00 02/22/2012 23:59:59 CLS Outpatient BERRY BALDERRAMA DO Benny [id number] 02/19/2012 13:27:00 02/19/2012 23:59:59 CLS Outpatient BERRY BALDERRAMA DO Benny [id number] 10/02/2011 09:36:00 10/02/2011 23:59:59 [place] [id number] 10/02/2011 09:36:00 10/02/2011 23:59:59 CLS Outpatient [id number] 06/24/2012 13:29:00 Document Registration [id number] 06/30/2018 19:44:00 06/30/2018 23:59:59 CLS Emergency LI LOPEZ APRN [facility] ER ETOH [id number] 06/30/2018 18:56:00 06/30/2018 18:56:00 CAN Preadmit AMBER MCKEON DO [facility] ER RESPIRATORY ISSUES [id number] 06/29/2018 20:32:00 06/29/2018 23:16:00 DIS Outpatient JENIFER MULLINS [facility] ER FALL [id number] 10/12/2017 15:37:00 10/12/2017 16:02:00 DIS Emergency BERNOT JENIFER [facility] ER ETOH [id number] 10/10/2017 12:17:00 10/10/2017 14:11:00 DIS Emergency MARINA MULLINSIS [facility] ER SOB/ETOH [id number] 08/19/2017 18:05:00 08/19/2017 18:55:00 DIS Emergency LI LOPEZ APRN [facility] ER SOB/ETOH DETOX [id number] 06/08/2017 20:29:00 06/08/2017 21:10:00 DIS Emergency MELISSA GARCIA [facility] ER SOA [id number] 05/29/2017 16:55:00 05/29/2017 18:10:00 DIS Emergency SHAHANA ROSENTHAL [facility] ER SOA [id number] 05/21/2017 21:00:00 05/21/2017 22:16:00 DIS Emergency LI LOPEZ APRN [facility] ER SOB [id number] 05/19/2017 17:05:00 05/19/2017 17:31:00 DIS Outpatient HONEY GOLDBERG MD [facility] ER SOA [id number] 05/11/2017 21:12:00 05/11/2017 21:57:00 DIS Emergency MELISSA GARCIA [facility] ER SOA [id number] 04/06/2017 18:38:00 04/06/2017 20:05:00 DIS Emergency MELISSA GARCIA [facility] ER ANKLE PAIN [id number] 04/06/2017 12:39:00 04/06/2017 15:08:00 DIS Emergency MALIA JOLLY MD [facility] ER DRUG/ETOH ABUSE [id number] 07/11/2016 16:09:00 07/11/2016 19:12:00 DIS Emergency MELISSA GARCIA [facility] ER ALCOHOL INTOX [id number] 03/03/2016 15:38:00 03/03/2016 16:45:00 DIS Emergency LI LOPEZ APRN [facility] ER R ANKLE PAIN [id number] 05/02/2015 16:39:00 05/04/2015 13:14:00 DIS Inpatient FINESSE MOY MD Via [facility] 4TH RLL PNUEMONIA [id number] 11/19/2013 22:15:00 11/20/2013 10:50:00 DIS Inpatient DANICA LERNER MD Via [facility] ICU ETOH INTOXICATION, AMS [id number] 10/02/2013 15:43:00 10/03/2013 14:03:00 DIS Inpatient BERRY BALDERRAMA DO [facility] ICU SUICIDAL/HOMICIDAL IDEATION, ETOH INTOXICATION [id number] 04/27/2013 09:25:00 04/27/2013 23:59:59 CLS Outpatient APRIL QUINTANILLA APRN [facility] RAD OSTEOPENIA [id number] 03/06/2013 10:54:00 03/06/2013 23:59:59 CLS Outpatient DEVORA PINEDO, HUMA Sparks [facility] RAD SCREENING [id number] 11/14/2012 15:16:00 11/14/2012 23:59:59 CLS Outpatient [id number] 09/19/2012 13:31:00 09/19/2012 23:59:59 CLS Outpatient [id number] 08/22/2012 15:17:00 08/22/2012 23:59:59 CLS Outpatient [id number] 08/04/2012 14:36:00 08/04/2012 23:59:59 CLS Outpatient [id number] 07/20/2012 12:07:00 07/20/2012 13:45:00 DIS Emergency FRANCISCO ACEVEDO DO [facility] ER FELL INJ L ARM [id number] 09/13/2017 11:13:00 Document Registration [id number] 03/16/2014 10:56:00 Document Registration [id number] 03/04/2012 10:23:00 Document Registration
== END 2018-06-30 19:02 | disposition left against medical advice (07) ==
LOC: EDUNIT# 18:55 → ER 18:56
DX: J98.9 Respiratory disorder, unspecified (principal)

== ENCOUNTER 2018-06-30 19:43 | Emergency (ER) | payer MEDICAID ==
[~2018-06-30] VITALS: Ht 165.1 cm; Wt 45.6 kg
--- NOTE | 2018-06-30 19:51 | ED General ---
General Stated Complaint: ETOH Source of Information: Patient Exam Limitations: No Limitations History of Present Illness Date Seen by Provider: June 30, 2018 Time Seen by Provider: 19:49 Initial Comments To ER with reports of alcohol use. She has no specific complaint. she was brought in by EMS but then refused to be seen so left the back of the ambulance before ever entering the emergency room. She was then walking up and down the street and police advised her to come to the emergency room to be evaluated. When I entered the room I asked her what I could do for her today and she replied "let me go home". Timing/Duration: 1-2 Days Severity: Moderate Associated Systoms: Denies Symptoms Allergies and Home Medications Allergies Coded Allergies: No Known Drug Allergies (Unverified , 07/20/12) Home Medications Aspirin 81 Mg Tablet.dr, 81 MG PO DAILY, (Reported) Buspirone HCl 10 Mg Tablet, 10 MG PO BID, (Reported) Cefpodoxime Proxetil 200 Mg Tablet, 200 MG PO BID Prescribed by: FINESSE DESAI on 05/04/15 1211 Diclofenac Sodium 75 Mg Tablet.dr, 75 MG PO BID, (Reported) Furosemide 40 Mg Tablet, 40 MG PO DAILY, (Reported) Gabapentin 300 Mg Capsule, 300 MG PO TID, (Reported) Hydrocodone/Acetaminophen 1 Each Tablet, 1 EACH PO Q4H PRN for PAIN Prescribed by: LI LOPEZ on 03/03/16 1620 Levomilnacipran Hydrochloride 80 Mg Cap.sa.24h, 80 MG PO DAILY, (Reported) Loratadine 10 Mg Tablet, 10 MG PO DAILY, (Reported) Lorazepam 0.5 Mg Tablet, 0.5 MG PO DAILY PRN for ANXIETY, (Reported) Multivitamin 1 Each Tablet, 1 TAB PO DAILY, (Reported) Potassium Chloride 20 Meq Tab.er.prt, 20 MEQ PO DAILY, (Reported) Quetiapine Fumarate 100 Mg Tablet, 100 MG PO HS, (Reported) Tizanidine HCl 4 Mg Tablet, 4 MG PO TID PRN for MUSCLE SPASMS, (Reported) Patient Home Medication List Home Medication List Reviewed: Yes Review of Systems Review of Systems Constitutional: see HPI EENTM: see HPI Respiratory: no symptoms reported Cardiovascular: no symptoms reported Genitourinary: no symptoms reported Musculoskeletal: no symptoms reported Skin: no symptoms reported Past Zlarsrw-Fsmdht-Wdbvjz Hx Patient Social History Alcohol Beverage of Choice: Beer, Whiskey, [place] Drug of Choice: CANNIBUS Type Used: Cigarettes 2nd Hand Smoke Exposure: Yes Recent Foreign Travel: No Contact w/Someone Who Travel: No Recent Hopitalizations: No Immunizations Up To Date Tetanus Booster (TDap): Unknown PED Vaccines UTD: No Seasonal Allergies Seasonal Allergies: No Past Medical History Surgeries: Yes (CYST ON OVARY) Respiratory: Yes Sleep Apnea, COPD Currently Using CPAP: No Currently Using BIPAP: No Cardiac: No Neurological: Yes Reproductive Disorders: No Female Reproductive Disorders: Denies Sexually Transmitted Disease: No HIV/AIDS: No Genitourinary: No Gastrointestinal: No Musculoskeletal: Yes (ANKLE FRACTURE) Arthritis, Chronic Back Pain Endocrine: No HEENT: No Cancer: No Psychosocial: Yes (alcoholism) Sleep Difficulties, Anxiety, Suicide Attempts, Bipolar, Depression Integumentary: No Blood Disorders: No Family Medical History Alcoholism 19 FATHER G8 BROTHER G8 BROTHER G8 BROTHER G8 SISTER G8 SISTER FH: brain cancer G8 SISTER Neoplasm 19 MOTHER No Pertinent Family Hx Physical Exam Vital Signs Vital Signs - First Documented 06/30/18 20:06 Temp 98.4 Pulse 81 Resp 18 B/P (MAP) 116/88 (97) Pulse Ox 96 O2 Delivery Room Air Capillary Refill : Height, Weight, BMI Height: 5'5.00" Weight: 100lbs. 8.0oz. 45.268461da; 18.11 BMI Method:Estimated General Appearance: No Apparent Distress, WD/WN, Other (I've taken care of him many times and she is at baseline) Eyes: Bilateral Eye Normal Inspection, Bilateral Eye PERRL, Bilateral Eye EOMI HEENT: PERRL/EOMI, TMs Normal Respiratory: No Accessory Muscle Use, No Respiratory Distress Gastrointestinal: Non Tender, Soft Extremity: Normal Capillary Refill, Normal Inspection Neurologic/Psychiatric: Alert, Oriented x3 Skin: Normal Color, Warm/Dry Progress/Results/Core Measures Suspected Sepsis SIRS Temperature: Pulse: Respiratory Rate: Blood Pressure / Mean: Results/Orders Vital Signs/I&O 06/30/18 06/30/18 20:06 20:07 Temp 98.4 98.4 Pulse 81 81 Resp 18 18 B/P (MAP) 116/88 (97) 116/88 (97) Pulse Ox 96 96 O2 Delivery Room Air Room Air Capillary Refill : Departure Impression Primary Impression: Alcohol intoxication Qualified Codes: F10.920 - Alcohol use, unspecified with intoxication, uncomplicated Disposition: 01 HOME, SELF-CARE Condition: Stable Departure-Patient Inst. Decision time for Depature: 19:51 Referrals: HUMA LOZOYA MD (PCP/Family) Primary Care Physician Patient Instructions: Alcohol Abuse and Alcoholism (DC) LI LOPEZ APRN June 30, 2018 19:51
[2018-06-30 20:07] VITALS: BP 116/88
--- OUTSIDE RECORDS SUMMARY | 2018-06-30 23:48 | XMS REPORT | Continuity of Care Document ---
Author Organization Unknown Address Unknown Allergies Active Description Code Type Severity Reaction Onset Reported/Identified Relationship to Patient Clinical Status Yes No Known Drug Allergies [id number] Drug Allergy Unknown N/A 07/20/2012 Medications There [...] MD 465.9 Upper Respiratory Infection 04/01/2010 DWIGHT ACQUISITIONS EDITOR, APRIL A 305.1 NONDEPENDENT TOBACCO USE DISORDER [...] TUNNEL SYNDROME 05/14/2010 HUMA LOZOYA MD V72.31 At Risk Paraprofessional Exam, Routine 05/14/2010 BALDERRAMA DO BERRY K 354.0 CARPAL TUNNEL SYNDROME 05/14/2010 BALDERRAMA DO BERRY K V72.31 At Risk Paraprofessional Exam, Routine 05/14/2010 BALDERRAMA DO BERRY K 354.0 CARPAL TUNNEL SYNDROME 05/14/2010 BALDERRAMA DOBERRY V72.31 At Risk Paraprofessional Exam, Routine 05/14/2010 DEVORA PINEDO, HUMA 354.0 CARPAL TUNNEL SYNDROME 05/14/2010 DEVORA PINEDO, HUMA V72.31 At Risk Paraprofessional Exam, Routine 05/14/2010 354.0 CARPAL TUNNEL SYNDROME 05/14/2010 V72.31 At Risk Paraprofessional Exam, Routine 05/14/2010 DEVORA PINEDO, HUMA 354.0 CARPAL TUNNEL SYNDROME 05/14/2010 DEVORA PINEDO, HUMA V72.31 At Risk Paraprofessional Exam, Routine 05/14/2010 DEVORA PINEDO, HUMA 354.0 CARPAL TUNNEL SYNDROME 05/14/2010 DEVORA PINEDO, HUMA V72.31 At Risk Paraprofessional Exam, Routine 05/14/2010 DEVORA PINEDO, HUMA 354.0 CARPAL TUNNEL SYNDROME 05/14/2010 DEVORA PINEDO, HUMA V72.31 At Risk Paraprofessional Exam, Routine 05/14/2010 DEVORA PINEDO, HUMA 354.0 CARPAL TUNNEL SYNDROME 05/14/2010 HUMA LOZOYA MD V72.31 At Risk Paraprofessional Exam, Routine 05/14/2010 DEVORA PINEDO, HUMA 354.0 CARPAL TUNNEL SYNDROME 05/14/2010 HUMA LOZOYA MD V72.31 At Risk Paraprofessional Exam, Routine 05/14/2010 DWIGHT FAIRCHILD, APRIL A 354.0 CARPAL TUNNEL SYNDROME 05/14/2010 APRIL QUINTANILLA APRN V72.31 At Risk Paraprofessional Exam, Routine 05/14/2010 JI QUINTANILLA APRNIDI A 354.0 CARPAL TUNNEL SYNDROME 05/14/2010 APRIL QUINTANILLA APRN V72.31 At Risk Paraprofessional Exam, Routine 05/14/2010 BALDERRAMA DOJEOVANNYA K 354.0 CARPAL TUNNEL SYNDROME 05/14/2010 TACOS DOJEOVANNYA K V72.31 At Risk Paraprofessional Exam, Routine 05/14/2010 BALDERRAMA DO BERRY K 354.0 CARPAL TUNNEL SYNDROME 05/14/2010 BERRY BALDERRAMA DO V72.31 At Risk Paraprofessional Exam, Routine 05/14/2010 DEVORA PINEDO, HUMA 354.0 CARPAL TUNNEL SYNDROME 05/14/2010 HUMA LOZOYA MD V72.31 At Risk Paraprofessional Exam, Routine 05/14/2010 DEVORA PINEDO, HUMA 354.0 CARPAL TUNNEL SYNDROME 05/14/2010 HUMA LOZOYA MD V72.31 At Risk Paraprofessional Exam, Routine 05/14/2010 ADDIS SPRINGER APRN A 354.0 CARPAL TUNNEL SYNDROME 05/14/2010 ADDIS SPRINGER APRN A V72.31 At Risk Paraprofessional Exam, Routine 05/14/2010 HUMA LOZOYA MD 354.0 CARPAL TUNNEL SYNDROME 05/14/2010 HUMA LOZOYA MD V72.31 At Risk Paraprofessional Exam, Routine 05/14/2010 HUMA LOZOYA MD 354.0 CARPAL TUNNEL SYNDROME 05/14/2010 HUMA LOZOYA MD V72.31 At Risk Paraprofessional Exam, Routine 05/14/2010 354.0 CARPAL TUNNEL SYNDROME 05/14/2010 V72.31 At Risk Paraprofessional Exam, Routine 05/14/2010 HUMA LOZOYA MD 354.0 CARPAL TUNNEL SYNDROME 05/14/2010 HUMA LOZOYA MD V72.31 At Risk Paraprofessional Exam, Routine 06/09/2010 HUMA LOZOYA MD 381.81 [...] Alcoholic Intoxication In Alcoholism In Remission 08/12/2010 HMUA LOZOYA MD 305.73 NONDEPENDENT AMPHETAMINE OR RELATED [...] MD 780.79 OTHER MALAISE AND FATIGUE 05/05/2011 HUAM LOZOYA MD 780.79 OTHER MALAISE AND FATIGUE 05/05/2011 DWIGHT ACQUISITIONS EDITOR, APRIL A 780.79 OTHER MALAISE AND FATIGUE 05/05/2011 DWIGHT ACQUISITIONS EDITOR, APRIL A 780.79 OTHER MALAISE AND FATIGUE [...] MD V58.69 MEDICATION HIGH RISK 01/18/2013 DWIGHT ACQUISITIONS EDITOR, APRIL A V58.69 MEDICATION HIGH RISK 01/18/2013 [...] SCREENING MAMMOGRAM FOR HIGH-RISK PATIENT 04/17/2013 DWIGHT ACQUISITIONS EDITOR, APRIL A V65.42 COUNSELING - SMOKING CESSATION [...] V65.42 COUNSELING - SMOKING CESSATION 04/17/2013 GIAN ACQUISITIONS EDITORADDIS Tanner V65.49 OTHER SPECIFIED COUNSELING 04/17/2013 GIAN ACQUISITIONS EDITORADDIS Tanner V76.10 BREAST CANCER SCREENING 04/17/2013 SPRINGER ACQUISITIONS EDITORADDIS Tanner V76.51 COLON CANCER SCREENING 04/17/2013 ADDIS [...] QUINTANILLA APRN Ot 733.90 03/16/2014 APRIL QUINTANILLA ACQUISITIONS EDITOR Ot V65.42 03/16/2014 APRIL QUINTANILLA ACQUISITIONS EDITOR Ot V65.49 03/16/2014 APRIL QUINTANILLA ACQUISITIONS EDITOR Ot V76.12 03/16/2014 APRIL QUINTANILLA ACQUISITIONS EDITOR Ot V76.51 03/16/2014 APRIL QUINTANILLA ACQUISITIONS EDITOR Ot V82.81 03/19/2014 HUMA LOZOYA MD V76.10 [...] LOPEZ APRN Ot Y92.[address] IN [facility] NON-INSTITUT (PRIVATE 03/03/2016 LI LOPEZ APRN Ot Y99.8 OTHER EXTERNAL CAUSE STATUS 03/03/2016 LI LOPEZ APRN Ot Z79.82 CUSTODIAL (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 OF ASPIRIN 03/03/2016 LI LOPEZ APRN Ot Z79.899 OTHER CUSTODIAL (CURRENT) DRUG THERAPY 03/03/2016 Ot V76.12 OTH SCREEN MAMMO- MALIGN NEOPLASM OF ETIENNE 03/03/2016 HUMA LOZOYA MD Ot V76.12 OTH SCREEN MAMMO-MALIGN NEOPLASM OF ETIENNE 03/03/2016 APRIL QUINTANILLA APRN Ot 733.90 BONE CARTILAGE DIS NOS 03/03/2016 APRIL QUINTANILLA APRN Ot V65.42 COUNSELING ON SUBSTANCE USE AND ABUSE 03/03/2016 APRIL QUINTANILLA APRN Ot V65.49 OTHER SPECIFIED COUNSELING 03/03/2016 DWIGHT, APRIL A ACQUISITIONS EDITOR Ot V76.12 OTH SCREEN MAMMO-MALIGN NEOPLASM OF ETIENNE 03/03/2016 JI QUINTANILLAIDI Jp ACQUISITIONS EDITOR Ot V76.51 SCREEN MAL NEOP-COLON 03/03/2016 JI QUINTANILLAIDI Jp ACQUISITIONS EDITOR Ot V82.81 SCREENING FOR OSTEOPOROSIS 03/03/2016 Ot V76.12 OTH SCREEN MAMMO- MALIGN NEOPLASM OF ETIENNE 03/03/2016 HUMA LOZOYA MD Ot V76.12 OTH SCREEN MAMMO-MALIGN NEOPLASM OF ETIENNE 03/03/2016 JI QUINTANILLAIDI Jp ACQUISITIONS EDITOR Ot 733.90 BONE CARTILAGE DIS NOS 03/03/2016 DWIGHTJIAPRIL Jp ACQUISITIONS EDITOR Ot V65.42 COUNSELING ON SUBSTANCE USE AND ABUSE 03/03/2016 DWIGHT, APRIL A ACQUISITIONS EDITOR Ot V65.49 OTHER SPECIFIED COUNSELING 03/03/2016 DWIGHTJIAPRIL Jp ACQUISITIONS EDITOR Ot V76.12 OTH SCREEN MAMMO-MALIGN NEOPLASM OF ETIENNE 03/03/2016 DWIGHTJIAPRIL Jp ACQUISITIONS EDITOR Ot V76.51 SCREEN MAL NEOP-COLON 03/03/2016 JI QUINTANILLAIDI pJ ACQUISITIONS EDITOR Ot V82.81 SCREENING FOR OSTEOPOROSIS 03/04/2016 LI LOPEZ APRN Ot J44.9 CHRONIC OBSTRUCTIVE PULMONARY DISEASE, U 03/04/2016 LI LOPEZ APRN Ot S82.401A [facility] FRACTURE OF SHAFT OF RIGHT FIBULA, 03/04/2016 LI LOPEZ APRN Ot S99.911A UNSPECIFIED INJURY OF RIGHT ANKLE, INITI 03/04/2016 LI LOPEZ APRN Ot X58.XXXA EXPOSURE TO OTHER SPECIFIED FACTORS, INI 03/04/2016 LI LOPEZ APRN Ot Y92.[address] IN [facility] NON-INSTITUT (PRIVATE 03/04/2016 LI LOPEZ APRN Ot Y99.8 OTHER EXTERNAL CAUSE STATUS 03/04/2016 LI LOPEZ APRN Ot Z79.82 COOLER TENDER (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 OF ASPIRIN 03/04/2016 LI LOPEZ APRN Ot Z79.899 OTHER COOLER TENDER (CURRENT) DRUG THERAPY 03/05/2016 LI LOPEZ APRN Ot J44.9 CHRONIC OBSTRUCTIVE PULMONARY DISEASE, U 03/05/2016 LI LOPEZ APRN Ot S82.401A UNSP FRACTURE OF SHAFT OF RIGHT FIBULA, 03/05/2016 LI LOPEZ ACQUISITIONS EDITOR Ot S99.911A UNSPECIFIED INJURY OF RIGHT ANKLE, INITI 03/05/2016 LI LOPEZ APRN Ot X58.XXXA EXPOSURE TO OTHER SPECIFIED FACTORS, INI 03/05/2016 LI LOPEZ APRN Ot Y92.[address] IN [facility] NON-INSTITUT (PRIVATE 03/05/2016 LI LOPEZ APRN Ot Y99.8 OTHER EXTERNAL CAUSE STATUS 03/05/2016 LI LOPEZ APRN Ot Z79.82 CUSTODIAL (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 OF ASPIRIN 03/05/2016 LI LOPEZ APRN Ot Z79.899 OTHER CUSTODIAL (CURRENT) DRUG THERAPY 07/11/2016 MELISSA GARCIA Ot F10.129 ALCOHOL ABUSE WITH INTOXICATION, UNSPECI 07/11/2016 MELISSA GARCIA Ot F17.210 NICOTINE DEPENDENCE, CIGARETTES, UNCOMPL 07/11/2016 MELISSA GARCIA Ot J44.9 CHRONIC OBSTRUCTIVE PULMONARY DISEASE, U 07/11/2016 MELISSA GARCIA Ot Y90.6 BLOOD ALCOHOL LEVEL OF 120-199 MG/100 ML 07/11/2016 MELISSA GARCIA Ot Z79.82 CUSTODIAL (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 OF ASPIRIN 07/11/2016 MELISSA GARCIA Ot Z79.899 OTHER COOLER TENDER (CURRENT) DRUG THERAPY 04/06/2017 MALIA JOLLY MD [...] R 04/06/2017 MALIA JOLLY MD Ot Z79.82 CUSTODIAL (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 OF ASPIRIN 04/06/2017 MALIA JOLLY [...] FACTORS, INI 04/06/2017 MELISSA GARCIA Ot Z79.82 CUSTODIAL (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 OF ASPIRIN 04/06/2017 MELISSA GARCIA [...] R 04/08/2017 MALIA JOLLY MD Ot Z79.82 CUSTODIAL (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 OF ASPIRIN 04/08/2017 MALIA JOLLY [...] FACTORS, INI 04/08/2017 MELISSA GARCIA Ot Z79.82 CUSTODIAL (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 OF ASPIRIN 04/08/2017 MELISSA GARCIA [...] NEOPLASM OF ETIENNE 05/19/2017 DWIGHT, APRIL A ACQUISITIONS EDITOR Ot 733.90 BONE CARTILAGE DIS NOS 05/19/2017 DWIGHT, APRIL A ACQUISITIONS EDITOR Ot V65.42 COUNSELING ON SUBSTANCE USE AND ABUSE 05/19/2017 DWIGHT, APRIL A ACQUISITIONS EDITOR Ot V65.49 OTHER SPECIFIED COUNSELING 05/19/2017 DWIGHT, APRIL A ACQUISITIONS EDITOR Ot V76.12 OTH SCREEN MAMMO-MALIGN NEOPLASM OF ETIENNE 05/19/2017 DWIGHT, APRIL A ACQUISITIONS EDITOR Ot V76.51 SCREEN MAL NEOP-COLON 05/19/2017 DWIGHT, APRIL A ACQUISITIONS EDITOR Ot V82.81 SCREENING FOR OSTEOPOROSIS 05/19/2017 MELISSA GARCIA Ot R06.02 SHORTNESS OF BREATH 05/19/2017 Ot V76.12 OTH SCREEN MAMMO- MALIGN NEOPLASM OF ETIENNE 05/19/2017 HUMA LOZOYA MD Ot V76.12 OTH SCREEN MAMMO-MALIGN NEOPLASM OF ETIENNE 05/19/2017 DWIGHT, APRIL A ACQUISITIONS EDITOR Ot 733.90 BONE CARTILAGE DIS NOS 05/19/2017 DWIGHT, APRIL A ACQUISITIONS EDITOR Ot V65.42 COUNSELING ON SUBSTANCE USE AND ABUSE 05/19/2017 DWIGHT, APRIL A ACQUISITIONS EDITOR Ot V65.49 OTHER SPECIFIED COUNSELING 05/19/2017 DWIGHT, APRIL A ACQUISITIONS EDITOR Ot V76.12 OTH SCREEN MAMMO-MALIGN NEOPLASM OF ETIENNE 05/19/2017 DWIGHT, APRIL A ACQUISITIONS EDITOR Ot V76.51 SCREEN MAL NEOP-COLON 05/19/2017 DWIGHT, APRIL A ACQUISITIONS EDITOR Ot V82.81 SCREENING FOR OSTEOPOROSIS 05/19/2017 MELISSA GARCIA Ot R06.02 SHORTNESS OF BREATH 05/20/2017 Ot V76.12 OTH SCREEN MAMMO- MALIGN NEOPLASM OF ETIENNE 05/20/2017 DEVORA PINEDO, HUMA Sparks Ot V76.12 OTH SCREEN MAMMO-MALIGN NEOPLASM OF ETIENNE 05/20/2017 APRIL QUINTANILLA Jp ACQUISITIONS EDITOR Ot 733.90 BONE CARTILAGE DIS NOS 05/20/2017 DWIGHTJIAPRIL A ACQUISITIONS EDITOR Ot V65.42 COUNSELING ON SUBSTANCE USE AND ABUSE 05/20/2017 DWIGHTJIAPRIL A ACQUISITIONS EDITOR Ot V65.49 OTHER SPECIFIED COUNSELING 05/20/2017 JI QUINTANILLAIDI Jp ACQUISITIONS EDITOR Ot V76.12 OTH SCREEN MAMMO-MALIGN NEOPLASM OF ETIENNE 05/20/2017 JI QUINTANILLAGYPSY Trammell ACQUISITIONS EDITOR Ot V76.51 SCREEN MAL NEOP-COLON 05/20/2017 DWIGHT APRIL A ACQUISITIONS EDITOR Ot V82.81 SCREENING FOR OSTEOPOROSIS 05/21/2017 ASHLYN [...] BREATH 05/21/2017 LI LOPEZ APRN Ot Z79.82 CUSTODIAL (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 OF ASPIRIN 05/21/2017 LI LOPEZ [...] BREATH 05/24/2017 LI LOPEZ APRN Ot Z79.82 CUSTODIAL (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 OF ASPIRIN 05/24/2017 LI LOPEZ APRN Ot Z80.8 FAMILY HISTORY OF MALIGNANT NEOPLASM OF 05/24/2017 LI LOPEZ APRN Ot Z87.448 PERSONAL HISTORY OF OTHER DISEASES OF UR 05/24/2017 LI LOPEZ APRN Ot Z91.5 PERSONAL HISTORY OF SELF-HARM 05/29/2017 SHAHANA ROSENTHALP Ot F10.129 ALCOHOL ABUSE WITH INTOXICATION, UNSPECI 05/29/2017 SHAHANA ROSENTHAL WEB KNITTER Ot F12.90 CANNABIS USE, UNSPECIFIED, UNCOMPLICATED 05/29/2017 SHAHANA ROSENTHALP Ot F31.9 BIPOLAR DISORDER, UNSPECIFIED 05/29/2017 SHAHANA ROSENTHALP Ot F41.9 ANXIETY DISORDER, UNSPECIFIED 05/29/2017 SHAHANA ROSENTHAL WEB KNITTER Ot G47.30 SLEEP APNEA, UNSPECIFIED 05/29/2017 SHAHANA ROSENTHALP Ot G47.9 SLEEP DISORDER, UNSPECIFIED 05/29/2017 SHAHANA ROSENTHALP Ot J44.9 CHRONIC OBSTRUCTIVE PULMONARY DISEASE, U 05/29/2017 SHAHANA ROSENTHAL WEB KNITTER Ot R06.02 SHORTNESS OF BREATH 05/29/2017 SHAHANA ROSENTHALP Ot Z77.22 CNTCT W AND EXPSR TO ENVIRON TOBACCO SMO 05/29/2017 SHAHANA ROSENTHAL WEB KNITTER Ot Z79.82 CUSTODIAL (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 OF ASPIRIN 05/29/2017 SHAHANA ROSENTHAL WEB KNITTER Ot Z87.81 PERSONAL HISTORY OF (HEALED) TRAUMATIC [...] DISEASE, U 06/08/2017 MELISSA GARCIA Ot Z79.82 CUSTODIAL (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 OF ASPIRIN 06/08/2017 MELISSA GARCIA [...] DISEASE, U 06/10/2017 MELISSA GARCIA Ot Z79.82 CUSTODIAL (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 OF ASPIRIN 06/10/2017 MELISSA GARCIA Ot Z80.8 FAMILY HISTORY OF MALIGNANT NEOPLASM OF 06/10/2017 MELISSA GARCIA Ot Z91.5 PERSONAL HISTORY OF SELF-HARM 08/19/2017 LI LOPEZ APRN Ot F10.229 ALCOHOL DEPENDENCE WITH INTOXICATION, UN 08/19/2017 LI LOPEZ ACQUISITIONS EDITOR Ot F12.10 CANNABIS ABUSE, UNCOMPLICATED 08/19/2017 LI [...] SMO 08/19/2017 LI LOPEZ APRN Ot Z79.82 COOLER TENDER (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 OF ASPIRIN 08/19/2017 LI LOPEZ [...] SMO 08/23/2017 LI LOPEZ APRN Ot Z79.82 COOLER TENDER (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 OF ASPIRIN 08/23/2017 LI LOPEZ ACQUISITIONS EDITOR Ot Z80.8 FAMILY HISTORY OF MALIGNANT NEOPLASM [...] TO ENVIRON TOBACCO SMO 09/13/2017 Ot Z79.82 COOLER TENDER (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 OF ASPIRIN 09/13/2017 Ot Z80.8 [...] TOBACCO SMO 10/10/2017 MARINA MULLINSIS Ot Z79.82 COOLER TENDER (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 OF ASPIRIN 10/10/2017 HARPREET JENIFER [...] TOBACCO SMO 10/12/2017 MARINA MULLINSIS Ot Z79.82 COOLER TENDER (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 OF ASPIRIN 10/12/2017 MARINA MULLINSIS [...] Procedures Code Description Performed By Performed On [facility] 10/09/2011 12311 UA W/ CULTURE IF INDICATED 02/19/2012 21742 ROUTINE VENIPUNCTURE 02/22/2012 40694 CBC 02/22/2012 95399 LIPID PANEL 02/22/2012 93851 CMP 02/22/2012 3820275 GFR CALC (RESULT ONLY) 02/22/2012 10017 TSH 02/23/2012 91060 MAMMOGRAM, SCREENING 02/23/2012 94794 HEMOCCULT 02/23/2012 18862 PAP SMEAR 02/23/2012 Q0091 PAP SMEAR OBTAIN SMEAR 02/23/2012 15692 URINE DRUG SCREEN (IN-HOUSE) 01/18/2013 26678 MAMMOGRAM, SCREENING 01/19/2013 URINEDRUG URINE DRUG SCREEN (CON'F) 01/19/2013 09794 BONE DENSITY, DEXA 04/17/2013 GENERAL S Kido, Ken 04/17/2013 31912 BONE MINERAL DENSITY, HEEL US (IN HOUSE) 04/17/2013 87061 XRAY CERVICAL SPINE, 2 OR 3 VIEWS 06/02/2013 05672 ROUTINE VENIPUNCTURE 02/16/2014 06220 MAMMOGRAM, SCREENING 02/16/2014 0463940 GFR CALC (RESULT ONLY) 02/16/2014 82298 CMP 02/16/2014 Results Test Result Range Complete [...] NR Blood erythrocyte morphology finding identification [facility] Comprehensive metabolic panel - [...] Status Pt. Type Provider Facility Loc./Unit Complaint [id number] 02/16/2014 11:31:00 02/16/2014 23:59:59 CLS Outpatient HUMA LOZOYA MD [id number] 12/02/2013 06:43:00 12/02/2013 23:59:59 CLS Outpatient HUMA LOZOYA MD [id number] 11/27/2013 11:19:00 11/27/2013 23:59:59 CLS Outpatient HUMA LOZOYA MD [id number] 10/30/2013 12:59:00 10/30/2013 23:59:59 CLS Outpatient ADDIS SPRINGER APRN [id number] 09/18/2013 13:40:00 09/18/2013 23:59:59 CLS Outpatient HUMA LOZOYA MD [id number] 07/25/2013 16:53:00 07/25/2013 23:59:59 CLS Outpatient HUMA LOZOYA MD [id number] 06/02/2013 11:36:00 06/02/2013 23:59:59 CLS Outpatient BERRY BALDERRAMA DO [id number] 06/02/2013 11:36:00 06/02/2013 23:59:59 CLS Outpatient BERRY BALDERRAMA DO [id number] 04/17/2013 10:34:00 04/17/2013 23:59:59 CLS Outpatient APRIL QUINTANILLA APRN [id number] 04/17/2013 10:34:00 04/17/2013 23:59:59 CLS Outpatient APRIL QUINTANILLA APRN [id number] 03/02/2013 13:45:00 03/02/2013 23:59:59 CLS Outpatient HUMA LOZOYA MD [id number] 03/02/2013 13:45:00 03/02/2013 23:59:59 CLS Outpatient HUMA LOZOYA MD [id number] 01/18/2013 14:08:00 01/18/2013 23:59:59 CLS Outpatient HUMA LOZOYA MD [id number] 12/19/2012 11:31:00 12/19/2012 23:59:59 CLS Outpatient HUMA LOZOYA MD [id number] 09/29/2012 16:24:00 09/29/2012 23:59:59 CLS Outpatient HUMA LOZOYA MD [id number] 03/28/2012 11:42:00 03/28/2012 23:59:59 CLS Outpatient HUMA LOZOYA MD [id number] 02/22/2012 09:43:00 02/22/2012 23:59:59 CLS Outpatient BERRY BALDERRAMA DO Benny [id number] 02/19/2012 13:27:00 02/19/2012 23:59:59 CLS Outpatient TACOS LEDESMABERRY [id number] 10/02/2011 09:36:00 10/02/2011 23:59:59 [place] [id number] 10/02/2011 09:36:00 10/02/2011 23:59:59 CLS Outpatient [id number] 06/24/2012 13:29:00 Document Registration [id number] 06/29/2018 20:32:00 06/29/2018 23:16:00 DIS Emergency JENIFER MULLINS [facility] ER FALL [id number] 10/12/2017 15:37:00 10/12/2017 16:02:00 DIS Emergency JENIFER MULLINS [facility] ER ETOH [id number] 10/10/2017 12:17:00 10/10/2017 14:11:00 DIS Emergency JENIFER MULLINS [facility] ER SOB/ETOH [id number] 08/19/2017 18:05:00 08/19/2017 18:55:00 DIS Emergency LI LOPEZ APRN [facility] ER SOB/ETOH DETOX [id number] 06/08/2017 20:29:00 06/08/2017 21:10:00 DIS Emergency MELISSA GARCIA [facility] ER SOA [id number] 05/29/2017 16:55:00 05/29/2017 18:10:00 DIS Emergency SHAHANA ROSENTHAL [facility] ER SOA [id number] 05/21/2017 21:00:00 05/21/2017 22:16:00 DIS Emergency LI LOPEZ ACQUISITIONS EDITOR [facility] ER SOB [id number] 05/19/2017 17:05:00 05/19/2017 17:31:00 DIS Outpatient HONEY GOLDBERG MD [facility] ER SOA [id number] 05/11/2017 21:12:00 05/11/2017 21:57:00 DIS Emergency MELISSA GARCIA [facility] ER SOA [id number] 04/06/2017 18:38:00 04/06/2017 20:05:00 DIS Emergency MELISSA GARCIA [facility] ER ANKLE PAIN [id number] 04/06/2017 12:39:00 04/06/2017 15:08:00 DIS Emergency MALIA JOLLY MD [facility] ER DRUG/ETOH ABUSE [id number] 07/11/2016 16:09:00 07/11/2016 19:12:00 DIS Emergency MELISSA GARCIA [facility] ER ALCOHOL INTOX [id number] 03/03/2016 15:38:00 03/03/2016 16:45:00 DIS Emergency LI LOPEZ ACQUISITIONS EDITOR [facility] ER R ANKLE PAIN [id number] 05/02/2015 16:39:00 05/04/2015 13:14:00 DIS Inpatient FINESSE MOY MD [facility] 4TH RLL PNUEMONIA [id number] 11/19/2013 22:15:00 11/20/2013 10:50:00 DIS Inpatient DANICA LERNER MD [facility] ICU ETOH INTOXICATION, AMS [id number] 10/02/2013 15:43:00 10/03/2013 14:03:00 DIS Inpatient BERRY BALDERRAMA DO [facility] ICU SUICIDAL/HOMICIDAL IDEATION, ETOH INTOXICATION [id number] 04/27/2013 09:25:00 04/27/2013 23:59:59 CLS Outpatient APRIL QUINTANILLA APRN [facility] RAD OSTEOPENIA [id number] 03/06/2013 10:54:00 03/06/2013 23:59:59 CLS Outpatient HUMA LOZOYA MD [facility] RAD SCREENING [id number] 11/14/2012 15:16:00 11/14/2012 23:59:59 CLS Outpatient [id number] 09/19/2012 13:31:00 09/19/2012 23:59:59 CLS Outpatient [id number] 08/22/2012 15:17:00 08/22/2012 23:59:59 CLS Outpatient [id number] 08/04/2012 14:36:00 08/04/2012 23:59:59 CLS Outpatient [id number] 07/20/2012 12:07:00 07/20/2012 13:45:00 DIS Emergency FRANCISCO ACEVEDO DO [facility] ER FELL INJ L ARM [id number] 09/13/2017 11:13:00 Document Registration [id number] 03/16/2014 10:56:00 Document Registration [id number] 03/04/2012 10:23:00 Document Registration [id number] 01/13/2013 16:48:57 ACT Document Registration [id number] 04/08/2017 14:00:00 04/08/2017 23:59:59 [facility]
== END 2018-06-30 20:07 | disposition home or self-care (01) ==
LOC: EDUNIT# 19:43 → ER 19:44
DX: F10.229 Alcohol dependence with intoxication, unspecified (principal); G47.30 Sleep apnea, unspecified; F41.9 Anxiety disorder, unspecified; F31.9 Bipolar disorder, unspecified; J44.9 Chronic obstructive pulmonary disease, unspecified; Z79.82 Long term (current) use of aspirin; Z91.5 Personal history of self-harm; Z77.22 Contact with and (suspected) exposure to environmental tobacco smoke (acute) (chronic); Z87.448 Personal history of other diseases of urinary system; Z80.8 Family history of malignant neoplasm of other organs or systems
CPT/HCPCS: 99283

== ENCOUNTER 2018-07-13 17:15 | Emergency (ER) | payer MEDICAID ==
[~2018-07-13] VITALS: Ht 152.4 cm; Wt 49.9 kg
--- NOTE | 2018-07-13 17:27 | ED General ---
General Chief Complaint: General Problems/Pain Stated Complaint: R ANKLE PAIN Source of Information: Patient Exam Limitations: No Limitations History of Present Illness Date Seen by Provider: Jul 13, 2018 Time Seen by Provider: 17:22 Initial Comments 63-year-old female who was brought to the emergency room by [facility] for complaints of right ankle pain. She is alert and oriented on arrival to the emergency room. On arrival to the emergency room she complains of shortness of breath. She has history of COPD and alcoholism. She reports she has been drinking today. She is familiar to me from previous visits of alcohol intoxication. Timing/Duration: 1-2 Days Associated Systoms: Shortness of Air Allergies and Home Medications Allergies Coded Allergies: No Known Drug Allergies (Unverified , 07/20/12) Home Medications Aspirin 81 Mg Tablet.dr, 81 MG PO DAILY, (Reported) Buspirone HCl 10 Mg Tablet, 10 MG PO BID, (Reported) Cefpodoxime Proxetil 200 Mg Tablet, 200 MG PO BID Prescribed by: FINESSE DESAI on 05/04/15 1211 Diclofenac Sodium 75 Mg Tablet.dr, 75 MG PO BID, (Reported) Furosemide 40 Mg Tablet, 40 MG PO DAILY, (Reported) Gabapentin 300 Mg Capsule, 300 MG PO TID, (Reported) Hydrocodone/Acetaminophen 1 Each Tablet, 1 EACH PO Q4H PRN for PAIN Prescribed by: LI LOPEZ on 03/03/16 1620 Levomilnacipran Hydrochloride 80 Mg Cap.sa.24h, 80 MG PO DAILY, (Reported) Loratadine 10 Mg Tablet, 10 MG PO DAILY, (Reported) Lorazepam 0.5 Mg Tablet, 0.5 MG PO DAILY PRN for ANXIETY, (Reported) Multivitamin 1 Each Tablet, 1 TAB PO DAILY, (Reported) Potassium Chloride 20 Meq Tab.er.prt, 20 MEQ PO DAILY, (Reported) Quetiapine Fumarate 100 Mg Tablet, 100 MG PO HS, (Reported) Tizanidine HCl 4 Mg Tablet, 4 MG PO TID PRN for MUSCLE SPASMS, (Reported) Patient Home Medication List Home Medication List Reviewed: Yes Review of Systems Review of Systems Constitutional: see HPI; No chills, No fever Respiratory: see HPI, short of breath Musculoskeletal: see HPI, joint pain (right ankle pain) All Other Systems Reviewed Negative Unless Noted: Yes Past Nkznlld-Jexrnd-Smgfqa Hx Past Med/Social Hx: Reviewed Nursing Past Med/Soc Hx Patient Social History Alcohol Beverage of Choice: Beer, Whiskey, [place] Drug of Choice: CANNIBUS Type Used: Cigarettes 2nd Hand Smoke Exposure: Yes Recent Foreign Travel: No Contact w/Someone Who Travel: No Recent Hopitalizations: No Immunizations Up To Date Tetanus Booster (TDap): Unknown PED Vaccines UTD: No Seasonal Allergies Seasonal Allergies: No Past Medical History Surgeries: Yes (CYST ON OVARY) Respiratory: Yes Sleep Apnea, COPD Currently Using CPAP: No Currently Using BIPAP: No Cardiac: No Neurological: Yes Reproductive Disorders: No Female Reproductive Disorders: Denies Sexually Transmitted Disease: No HIV/AIDS: No Genitourinary: No Gastrointestinal: No Musculoskeletal: Yes (ANKLE FRACTURE) Arthritis, Chronic Back Pain Endocrine: No HEENT: No Cancer: No Psychosocial: Yes (alcoholism) Sleep Difficulties, Anxiety, Suicide Attempts, Bipolar, Depression Integumentary: No Blood Disorders: No Family Medical History Reviewed Nursing Family Hx Alcoholism 19 FATHER G8 BROTHER G8 BROTHER G8 BROTHER G8 SISTER G8 SISTER FH: brain cancer G8 SISTER Neoplasm 19 MOTHER No Pertinent Family Hx Physical Exam Vital Signs Vital Signs - First Documented 07/13/18 17:18 Temp 97.8 Pulse 79 Resp 18 B/P (MAP) 110/79 (89) Pulse Ox 94 O2 Delivery Room Air Capillary Refill : Height, Weight, BMI Height: 5'5.00" Weight: 100lbs. 8.0oz. [id number]; 18.11 BMI Method:Estimated General Appearance: No Apparent Distress, WD/WN Respiratory: Chest Non Tender, No Accessory Muscle Use, No Respiratory Distress, Wheezing (throughout lung cook) Cardiovascular: Regular Rate, Rhythm, No Edema, No Gallop, No JVD, No Murmur, Normal Peripheral Pulses Gastrointestinal: Normal Bowel Sounds, No Organomegaly, No Pulsatile Mass, Non Tender, Soft Extremity: Normal Capillary Refill Neurologic/Psychiatric: Alert, Oriented x3, Normal Mood/Affect Skin: Normal Color, Warm/Dry Progress/Results/Core Measures Suspected Sepsis SIRS Temperature: Pulse: Respiratory Rate: Blood Pressure / Mean: Results/Orders My Orders Orders - BERNOT,JENIFER Albuterol/Ipra Inhalation Soln (Duoneb I (07/13/18 17:30) Svn Small Volume Nebulizer (07/13/18 17:20) Chest 1 View, Ap/Pa Only (07/13/18 17:20) Ankle, Right, 3 Views (07/13/18 17:21) Vital Signs/I&O 07/13/18 07/13/18 17:18 19:38 Temp 97.8 97.8 Pulse 79 91 Resp 18 16 B/P (MAP) 110/79 (89) 102/83 (89) Pulse Ox 94 94 O2 Delivery Room Air Room Air Capillary Refill : Progress Note : Time: 18:02 Progress Note I have seen and evaluated the patient. She refused her breathing treatment that was ordered. I've informed her of her imaging studies. The case was discussed with Dr. Gianni connor at this time and he recommends patient and the patient in a walking boot and having her follow up with the clinic in the next few days. She agrees with plan of care, plans for discharge, return precautions were given. Departure Impression Primary Impression: Fracture of distal fibula Additional Impression: Alcohol intoxication Disposition: 01 HOME, SELF-CARE Condition: Stable/Unchanged Departure-Patient Inst. Decision time for Depature: 18:36 Referrals: HUMA LOZOYA MD (PCP/Family) Primary Care Physician GIANNI HANKINS DO Patient Instructions: Alcohol Abuse and Alcoholism (DC), Ankle Fracture (DC) Add. Discharge Instructions: Follow-up with Dr. Hankins within 1 week for further evaluation and treatment of your fractured ankle. You may use Tylenol and ibuprofen as directed by the bottle for pain relief. Wear the walking boot at all times. Return back to the emergency room for worsening symptoms or concerns as needed. Follow-up with Nikko Gutiérrez at the clinic within 1 week for recheck. All discharge instructions reviewed with patient and/or family. Voiced understanding. JENIFER MULLINS Jul 13, 2018 17:26
[2018-07-13] MEDS ORDERED: RT-ALBUTEROL/IPRATROPIUM 3 ML (DUONEB) VIAL INH ONE (17:30)
--- NOTE | 2018-07-13 17:30 | NUR ---
Pt amb to restroom with x1 stand by assist.
--- NOTE | 2018-07-13 17:35 | NUR ---
Pt refused robert IH stating, "I don't want it sissy!"
--- NOTE | 2018-07-13 17:45 | Diagnostic Imaging Report ---
INDICATION: Fall from curb. Right ankle pain. EXAMINATION: Three views of the right ankle were obtained. 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 There has been significant lateral displacement of the distal fibula which is angulated now. There is widening of the ankle mortise along the lateral aspect, now measuring approximately 6 mm. There has been progressive degenerative change with considerable bony erosion along the lateral and posterior aspect of the articulating surface of the talus. There is also a large cortical defect along the lateral articulating surface of the tibia with [id number] appearance of the talotibial joint. IMPRESSION: 1. 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 2. Advanced arthritic changes have occurred with cortical erosion along the posterior lateral talus as well as along the lateral articulating surface of the tibia. Dictated by: Dictated on workstation # [id number]
--- NOTE | 2018-07-13 17:55 | Diagnostic Imaging Report ---
INDICATION: Respiratory difficulty. COMPARISON: Comparison made with prior examination from 05/11/2017. FINDINGS: The heart size, mediastinal configuration, and pulmonary vascularity are within normal limits. There is no pleural effusion, pneumothorax, or pneumonia. The osseous structures are unremarkable. IMPRESSION: No acute cardiopulmonary abnormality. Dictated by: Dictated on workstation # [id number]
--- OUTSIDE RECORDS SUMMARY | 2018-07-13 18:06 | XMS REPORT ---
Author Author Migration, Doctor Organization [facility] Address Unknown Phone Unavailable Care Team Providers Care Radiology Asst Name Role Phone Migration, Doctor Unavailable Unavailable PROBLEMS Type Condition ICD9-CM Code [id number] Code Onset Dates Condition Status SNOMED Code Problem Other and unspecified hyperlipidemia 272.4 Active 46401427 Problem Asthma J45.909 Active 254509788 Problem Alcoholism F10.20 Active 6458894 Problem Arthritis M19.90 Active 0258878 Problem Other chronic pain G89.29 Active 08221322 Problem Bipolar disorder F31.9 Active 46552199 Problem Closed fracture of shaft of right fibula, unspecified fracture morphology, initial encounter S82.401A Active 33387376 Problem Major depressive disorder, single episode F32.9 Active 37932090 Problem Arthropathy, unspecified M12.9 Active 306959064 ALLERGIES No Information ENCOUNTERS Encounter Location Date Diagnosis [place] [id number] [place] [address] Apr, [place] [id number] [place] [address] Apr, Injury of right ankle, initial encounter S99.911A and Encounter for immunization Z23 [place] [id number] [place] [address] Dec, [place] [address] [address] Nov, Pain in right ankle and joints of right foot M25.571 ; Other chronic pain G89.29 and Post-traumatic arthritis of right ankle M19.171 [place] [id number] [place] [address] Oct, Arthritis M19.90 [place] [id number] [place] [address] Aug, Arthritis M19.90 [facility] [address] [address] Aug, [facility] [id number] [place] [address] Jul, [facility] [id number] [place] [address] June, Arthropathy, unspecified M12.9 [facility] [id number] [place] [address] May, Asthma J45.909 and Major depressive disorder, single episode F32.9 [facility] [id number] [place] [address] Mar, Closed fracture of shaft of right fibula, unspecified fracture morphology, initial encounter S82.401A [facility] [id number] [place] [address] Feb, [facility] [id number] [place] [address] Feb, [facility] [id number] [place] [address] Nov, [facility] [id number] [place] [address] Nov, Bipolar disorder F31.9 ; Encounter for immunization Z23 and Asthma J45.909 [facility] [address] [address] Aug, [facility] [id number] [place] [address] May, [facility] [id number] [place] [address] Apr, [facility] [id number] [place] [address] Apr, [facility] [id number] [place] [address] Apr, URI (upper respiratory infection) J06.9 and Bipolar disorder F31.9 [facility] [address] [address] Feb, [facility] [id number] [place] [address] Feb, Asthma J45.909 and Alcoholism F10.20 [facility] [address] [address] Jan, [facility] [address] [address] Jan, [facility] [address] [address] Jan, [facility] [address] [address] Nov, Alcoholism F10.20 and Anxiety F41.9 [facility] [id number] [place] [address] Jul, Anxiety 300.00 and Arthropathy 716.90 [facility] [id number] [place] [address] Jul, [facility] [id number] [place] [address] Jul, Anxiety state 300.00 [facility] [id number] [place] [address] May, [facility] [id number] [place] [address] May, [facility] [id number] [place] [address] Apr, [facility] [id number] [place] [address] Apr, [facility] [address] [place] [address] 09 Mar, 2014 [facility] [place] [facility] [address] [id number] [place] [address] Mar, [facility] [place] [facility] [address] [id number] [place] [address] Feb, [facility] [place] [facility] [address] [id number] [place] [address] Feb, [facility] [place] [facility] [address] [id number] [place] [address] Feb, [facility] [place] [facility] [address] [id number] [place] [address] Feb, [facility] [place] [facility] [address] [id number] [place] [address] Jan, [facility] [place] [facility] [address] [id number] [place] [address] Jan, [facility] [place] [facility] [address] [id number] [place] [address] Jan, [facility] [place] [facility] [address] [id number] [place] [address] Jan, [facility] [place] [facility] [address] [facility] [id number] [place] [address] Nov, [facility] [place] [facility] [address] [id number] [place] [address] Nov, [facility] [place] [facility] [address] [id number] [place] [address] Nov, [facility] [place] [facility] [address] [id number] [place] [address] Nov, [facility] [place] [facility] [address] [id number] [place] [address] Nov, [facility] [place] [facility] [address] [id number] [place] [address] Nov, [facility] [place] [facility] [address] [id number] [place] [address] Nov, [facility] [place] [facility] [address] [id number] [place] [address] Nov, [facility] [place] [facility] [address] [id number] [place] [address] Nov, [facility] [place] [facility] [address] [id number] [place] [address] Nov, [facility] [place] [facility] [address] [id number] [place] [address] Nov, [facility] [place] [facility] [address] [id number] [place] [address] Nov, [facility] [place] [facility] [address] [id number] [place] [address] Nov, [facility] [place] [facility] [address] [id number] [place] [address] 30 Oct, 2013 [facility] [place] [facility] [address] [id number] [place] [address] 30 Oct, 2013 [facility] [place] [facility] [address] [id number] [place] [address] 26 Oct, 2013 [facility] [place] [facility] [address] [id number] [address] 26 Sep, 2013 [facility] [place] [facility] [address] [id number] [address] 08 Sep, 2013 [facility] [place] [facility] [address] [id number] [place] [address] 08 Sep, 2013 [facility] [place] [facility] [address] [id number] [address] 04 Sep, 2013 [facility] [place] [facility] [address] [id number] [place] [address] 04 Sep, 2013 [facility] [place] [facility] [address] [id number] [place] [address] Oct, 2013 [facility] [place] [facility] [address] [id number] [place] [address] Oct, 2013 [facility] [place] [facility] [address] [id number] [place] [address] Oct, [facility] [place] [facility] [address] [id number] [place] [address] Oct, [facility] [place] [facility] [address] [id number] [place] [address] Sep, [facility] [place] [facility] [address] [id number] [place] [address] Sep, [facility] [place] [facility] [address] [id number] [place] [address] Sep, [facility] [place] [facility] [address] [id number] [place] [address] Sep, [facility] [place] [facility] [address] [id number] [place] [address] Sep, [facility] [place] [facility] [address] [id number] [place] [address] Sep, [facility] [place] [facility] [address] [id number] [place] [address] Sep, [facility] [place] [facility] [address] [id number] [place] [address] Sep, [facility] [place] [facility] [address] [id number] [place] [address] Aug, [facility] [place] [facility] [address] [id number] [place] [address] Aug, [facility] [place] [facility] [address] [id number] [place] [address] Aug, [facility] [place] [facility] [address] [id number] [place] [address] Aug, [facility] [place] [facility] [address] [id number] [place] [address] Jul, [facility] [place] [facility] [address] [id number] [place] [address] Jul, [facility] [place] [facility] [address] [id number] [place] [address] Jul, [facility] [place] [facility] [address] [id number] [place] [address] Jul, [facility] [place] [facility] [address] [id number] [place] [address] Jul, [facility] [place] [facility] [address] [id number] [place] [address] Jul, [facility] [place] [facility] [address] [id number] [place] [address] June, [facility] [place] [facility] [address] [id number] [place] [address] June, [facility] [place] [facility] [address] [id number] [place] [address] June, [facility] [place] [facility] [address] [id number] [place] [address] June, [facility] [place] [facility] [address] [id number] [place] [address] June, [facility] [place] [facility] [address] [id number] [place] [address] June, [facility] [place] [facility] [address] [id number] [place] [address] May, [facility] [place] [facility] [address] [id number] [place] [address] May, [facility] [place] [facility] [address] [id number] [place] [address] May, [facility] [place] [facility] [address] [id number] [place] [address] May, [facility] [place] [facility] [address] [id number] [place] [address] May, [facility] [place] [facility] [address] [id number] [place] [address] May, [facility] [place] [facility] [address] [id number] [place] [address] May, [facility] [place] [facility] [address] [id number] [place] [address] May, [facility] [place] [facility] [address] [id number] [place] [address] May, [facility] [place] [facility] [address] [id number] [place] [address] May, [facility] [place] [facility] [address] [id number] [place] [address] Apr, [facility] [place] [facility] [address] [id number] [place] [address] Apr, [facility] [place] [facility] [address] [id number] [place] [address] 10 Apr, 2013 [facility] [place] [facility] [address] [id number] [place] [address] 10 Apr, 2013 [facility] [place] [facility] [address] [id number] [place] [address] 10 Apr, 2013 [facility] [place] [facility] [address] [id number] [place] [address] 10 Apr, 2013 [facility] [place] [facility] [address] [id number] [place] [address] 10 Apr, 2013 [facility] [place] [facility] [address] [id number] [place] [address] 10 Apr, 2013 [facility] [place] [facility] [address] [id number] [place] [address] Apr, [facility] [place] [facility] [address] [id number] [place] [address] Apr, [facility] [place] [facility] [address] [id number] [place] [address] Apr, [facility] [place] [facility] [address] [id number] [place] [address] Apr, [facility] [place] [facility] [address] [id number] [place] [address] Mar, [facility] [place] [facility] [address] [id number] [place] [address] Mar, [facility] [place] [facility] [address] [id number] [place] [address] Mar, [facility] [place] [facility] [address] [id number] [place] [address] Mar, [facility] [place] [facility] [address] [id number] [place] [address] Feb, [facility] [place] [facility] [address] [id number] [place] [address] Feb, [facility] [place] [facility] [address] [id number] [place] [address] Feb, [facility] [place] [facility] [address] [id number] [place] [address] Feb, [facility] [place] [facility] [address] [id number] [place] [address] Feb, [facility] [place] [facility] [address] [id number] [place] [address] Feb, [facility] [place] [facility] [address] [id number] [place] [address] Feb, [facility] [place] [facility] [address] [id number] [place] [address] Feb, [facility] [place] [facility] [address] [id number] [place] [address] Feb, [facility] [address] [id number] [place] [address] Feb, [facility] [place] [facility] [address] [id number] [place] [address] Jan, [facility] [place] [facility] [address] [id number] [place] [address] Jan, [facility] [place] [facility] [address] [id number] [place] [address] Jan, [facility] [place] [facility] [address] [id number] [place] [address] Jan, [facility] [place] [facility] [address] [id number] [place] [address] Jan, [facility] [place] [facility] [address] [id number] [place] [address] Jan, [facility] [place] [facility] [address] [id number] [place] [address] Jan, [facility] [place] [facility] [address] [id number] [place] [address] Jan, [facility] [place] [facility] [address] [id number] [address] Jan, [facility] [place] [facility] [address] [id number] [place] [address] Dec, [facility] [place] [facility] [address] [id number] [place] [address] Dec, [facility] [place] [facility] [address] [id number] [place] [address] Dec, [facility] [place] [facility] [address] [id number] [place] [address] Dec, [facility] [place] [facility] [address] [id number] [place] [address] Nov, [facility] [place] [facility] [address] [id number] [place] [address] Nov, [facility] [place] [facility] [address] [id number] [place] [address] Nov, [facility] [place] [facility] [address] [id number] [place] [address] Nov, [facility] [place] [facility] [address] [id number] [place] [address] Nov, [facility] [place] [facility] [address] [id number] [place] [address] Nov, [facility] [place] [facility] [address] [id number] [place] [address] Oct, [facility] [place] [facility] [address] [id number] [place] [address] Oct, [facility] [place] [facility] [address] [id number] [place] [address] Sep, [facility] [place] [facility] [address] [id number] [place] [address] Sep, [facility] [place] [facility] [address] [id number] [place] [address] Sep, [facility] [place] [facility] [address] [id number] [place] [address] Sep, [facility] [place] [facility] [address] [id number] [place] [address] Aug, [facility] [place] [facility] [address] [id number] [place] [address] Aug, [facility] [place] [facility] [address] [id number] [place] [address] Aug, [facility] [place] [facility] [address] [id number] [place] [address] Jul, [facility] [place] [facility] [address] [id number] [place] [address] Jul, [facility] [place] [facility] [address] [id number] [place] [address] Jul, [facility] [address] [id number] [place] [address] Jul, [facility] [address] [id number] [place] [address] June, [facility] [address] [id number] [place] [address] June, [facility] [address] [id number] [place] [address] May, [facility] [address] [id number] [place] [address] May, [facility] [address] [id number] [place] [address] Apr, [facility] [address] [id number] [place] [address] Apr, [facility] [address] [id number] [place] [address] Mar, [facility] [address] [id number] [place] [address] Mar, [facility] [address] [id number] [place] [address] Feb, [facility] [address] [id number] [place] [address] Feb, [facility] [place] [facility] [address] [id number] [place] [address] Feb, [facility] [place] [facility] [address] [id number] [place] [address] Feb, [facility] [place] [facility] [address] [id number] [place] [address] Feb, [facility] [address] [id number] [place] [address] 16 Feb, 2012 [facility] [place] [facility] [address] [id number] [place] [address] 16 Feb, 2012 [facility] [place] [facility] [address] [id number] [place] [address] 14 Feb, 2012 [facility] [place] [facility] [address] [id number] [place] [address] Feb, [facility] [place] [facility] [address] [id number] [place] [address] Jan, [facility] [place] [facility] [address] [id number] [place] [address] Jan, [facility] [place] [facility] [address] [id number] [place] [address] Jan, [facility] [place] [facility] [address] [id number] [place] [address] Jan, [facility] [place] [facility] [address] [id number] [place] [address] Dec, [facility] [place] [facility] [address] [id number] [place] [address] Dec, [facility] [place] [facility] [address] [id number] [place] [address] Dec, [facility] [place] [facility] [address] [id number] [place] [address] Dec, [facility] [place] [facility] [address] [id number] [place] [address] Oct, [facility] [place] [facility] [address] [id number] [place] [address] Sep, [facility] [place] [facility] [address] [id number] [place] [address] Sep, [facility] [place] [facility] [address] [id number] [place] [address] Aug, [facility] [place] [facility] [address] [address] Jul, [facility] [address] [address] June, [facility] [address] [address] June, [facility] [address] [address] May, [facility] [address] [address] Apr, [facility] [id number] [place] [address] Mar, [facility] [address] [address] Mar, [facility] [id number] [place] [address] Feb, [facility] [address] [address] Dec, [facility] [address] [address] Nov, [facility] [address] [address] Sep, [facility] [address] [address] Aug, IMMUNIZATIONS No Known Immunizations SOCIAL HISTORY Never Assessed REASON FOR VISIT EMR-[facility] PLAN OF CARE VITAL SIGNS MEDICATIONS Unknown Medications RESULTS No Results PROCEDURES No Known procedures INSTRUCTIONS MEDICATIONS ADMINISTERED No Known Medications MEDICAL (GENERAL) HISTORY Type Description Date Medical History asthma Medical History headache Medical History chronic pain-low back with spasms Medical History anxiety Medical History depression Hospitalization History childbirth x 4
--- OUTSIDE RECORDS SUMMARY | 2018-07-13 18:13 | XMS REPORT | Continuity of Care Document ---
Author Organization Unknown Address Unknown Allergies Active Description Code Type Severity Reaction Onset Reported/Identified Relationship to Patient Clinical Status Yes No Known Drug Allergies [id number] Drug Allergy Unknown N/A 07/20/2012 Medications There [...] MD 465.9 Upper Respiratory Infection 04/01/2010 DWIGHT 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, APRIL A 305.1 NONDEPENDENT TOBACCO USE DISORDER 04/01/2010 DWIGHT ZEEN, APRIL A 465.9 Upper Respiratory Infection 04/01/2010 DWIGHT ZEEN, APRIL A 305.1 NONDEPENDENT TOBACCO USE DISORDER 04/01/2010 DWIGHT ZEEN, APRIL A 465.9 Upper Respiratory Infection 04/01/2010 BALDERRAMA DO, BERRY K 305.1 NONDEPENDENT TOBACCO USE DISORDER 04/01/2010 BALDERRAMA DO, BERRY K 465.9 Upper Respiratory Infection 04/01/2010 BADLERRAMA DO, BERRY K 305.1 NONDEPENDENT TOBACCO USE [...] TUNNEL SYNDROME 05/14/2010 HUMA LOZOYA MD V72.31 Byproducts Pump Operator Exam, Routine 05/14/2010 BALDERRAMA DO BERRY K 354.0 CARPAL TUNNEL SYNDROME 05/14/2010 BALDERRAMA DO BERRY K V72.31 Byproducts Pump Operator Exam, Routine 05/14/2010 BALDERRAMA DO BERRY K 354.0 CARPAL TUNNEL SYNDROME 05/14/2010 BALDERRAMA DOBERRY V72.31 Byproducts Pump Operator Exam, Routine 05/14/2010 DEVORA PINEDO, HUMA 354.0 CARPAL TUNNEL SYNDROME 05/14/2010 DEVORA PINEDO, HUMA V72.31 Byproducts Pump Operator Exam, Routine 05/14/2010 354.0 CARPAL TUNNEL SYNDROME 05/14/2010 V72.31 Byproducts Pump Operator Exam, Routine 05/14/2010 DEVORA PINEDO, HUMA 354.0 CARPAL TUNNEL SYNDROME 05/14/2010 DEVORA PINEDO, HUMA V72.31 Byproducts Pump Operator Exam, Routine 05/14/2010 DEVORA PINEDO, HUMA 354.0 CARPAL TUNNEL SYNDROME 05/14/2010 DEVORA PINEDO, HUMA V72.31 Byproducts Pump Operator Exam, Routine 05/14/2010 DEVORA PINEDO, HUMA 354.0 CARPAL TUNNEL SYNDROME 05/14/2010 DEVORA PINEDO, HUMA V72.31 Byproducts Pump Operator Exam, Routine 05/14/2010 DEVORA PINEDO, HUMA 354.0 CARPAL TUNNEL SYNDROME 05/14/2010 HUMA LOZOYA MD V72.31 Byproducts Pump Operator Exam, Routine 05/14/2010 DEVORA PINEDO, HUMA 354.0 CARPAL TUNNEL SYNDROME 05/14/2010 HUMA LOZOYA MD V72.31 Byproducts Pump Operator Exam, Routine 05/14/2010 DWIGHT FAIRCHILD, APRIL A 354.0 CARPAL TUNNEL SYNDROME 05/14/2010 APRIL QUINTANILLA APRN V72.31 Byproducts Pump Operator Exam, Routine 05/14/2010 JI QUINTANILLA APRNIDI A 354.0 CARPAL TUNNEL SYNDROME 05/14/2010 APRIL QUINTANILLA APRN V72.31 Byproducts Pump Operator Exam, Routine 05/14/2010 BALDERRAMA DOJEOVANNYA K 354.0 CARPAL TUNNEL SYNDROME 05/14/2010 TACOS DOJEOVANNYA K V72.31 Byproducts Pump Operator Exam, Routine 05/14/2010 BALDERRAMA DO BERRY K 354.0 CARPAL TUNNEL SYNDROME 05/14/2010 BERRY BALDERRAMA DO V72.31 Byproducts Pump Operator Exam, Routine 05/14/2010 DEVORA PINEDO, HUMA 354.0 CARPAL TUNNEL SYNDROME 05/14/2010 HUMA LOZOYA MD V72.31 Byproducts Pump Operator Exam, Routine 05/14/2010 DEVORA PINEDO, HUMA 354.0 CARPAL TUNNEL SYNDROME 05/14/2010 HUMA LOZOYA MD V72.31 Byproducts Pump Operator Exam, Routine 05/14/2010 ADDIS SPRINGER APRN A 354.0 CARPAL TUNNEL SYNDROME 05/14/2010 ADDIS SPRINGER APRN A V72.31 Byproducts Pump Operator Exam, Routine 05/14/2010 HUMA LOZOYA MD 354.0 CARPAL TUNNEL SYNDROME 05/14/2010 HUMA LOZOYA MD V72.31 Byproducts Pump Operator Exam, Routine 05/14/2010 HUMA LOZOYA MD 354.0 CARPAL TUNNEL SYNDROME 05/14/2010 HUMA LOZOYA MD V72.31 Byproducts Pump Operator Exam, Routine 05/14/2010 354.0 CARPAL TUNNEL SYNDROME 05/14/2010 V72.31 Byproducts Pump Operator Exam, Routine 05/14/2010 HUMA LOZOYA MD 354.0 CARPAL TUNNEL SYNDROME 05/14/2010 HUMA LOZOYA MD V72.31 Byproducts Pump Operator Exam, Routine 06/09/2010 HUMA LOZOYA MD [...] Intoxication In Alcoholism In Remission 08/12/2010 HUMA LZOOYA MD 305.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 [...] BALDERRAMA BERRY LEDESMA 724.5 BACKACHE UNSPECIFIED 12/11/2010 ABLDERRAMA , BERRY K 724.5 BACKACHE UNSPECIFIED 12/11/2010 [...] 780.79 OTHER MALAISE AND FATIGUE 05/05/2011 DWIGHT 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, APRIL A 780.79 OTHER MALAISE AND FATIGUE 05/05/2011 DWIGHT 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, APRIL A 780.79 OTHER MALAISE AND FATIGUE [...] BALDERRAMA DO 627.2 MENOPAUSAL SX 02/19/2012 BERRY BLADERRAMA DO V76.10 BREAST CANCER SCREENING 02/19/2012 BERRY [...] 03/28/2012 272.4 OTHER AND UNSPECIFIED HYPERLIPIDEMIA 03/28/2012 HUAM LOZOYA MD 272.4 OTHER AND UNSPECIFIED HYPERLIPIDEMIA [...] MD V58.69 MEDICATION HIGH RISK 01/18/2013 DWIGHT 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, APRIL A V58.69 MEDICATION HIGH RISK 01/18/2013 [...] SCREENING MAMMOGRAM FOR HIGH-RISK PATIENT 04/17/2013 DWIGHT 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, APRIL A V65.42 COUNSELING - SMOKING CESSATION [...] MD V65.42 COUNSELING - SMOKING CESSATION 04/17/2013 UHMA LOZOYA MD V65.49 OTHER SPECIFIED COUNSELING 04/17/2013 HUMA LOZOYA MD V76.10 BREAST CANCER SCREENING 04/17/2013 HUMA LOZOYA MD V76.51 COLON CANCER SCREENING 04/17/2013 HUMA LOZOYA MD V82.81 SPECIAL SCREENING FOR OSTEOPOROSIS 04/17/2013 ADDIS SPRINGER APRN V65.42 COUNSELING - SMOKING CESSATION 04/17/2013 GIAN 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ADDIS Tanner V65.49 OTHER SPECIFIED COUNSELING 04/17/2013 GIAN 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ADDIS Tanner V76.10 BREAST CANCER SCREENING 04/17/2013 SPRINGER 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ADDIS Tanner V76.51 COLON CANCER SCREENING 04/17/2013 ADDIS [...] QUINTANILLA APRN Ot 733.90 03/16/2014 APRIL QUINTANILLA 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 Ot V65.42 03/16/2014 APRIL QUINTANILLA 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 Ot V65.49 03/16/2014 APRIL QUINTANILLA 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 Ot V76.12 03/16/2014 APRIL QUINTANILLA 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 Ot V76.51 03/16/2014 APRIL QUINTANILLA 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 Ot V82.81 03/19/2014 HUMA LOZOYA MD V76.10 [...] [facility] 03/03/2016 LI LOPEZ APRN Ot Y99.8 OTHER EXTERNAL CAUSE STATUS 03/03/2016 LI LOPEZ APRN Ot Z79.82 NURSING HOME (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 OF ASPIRIN 03/03/2016 LI LOPEZ APRN Ot Z79.899 OTHER [facility]URSING HOME (CURRENT) DRUG THERAPY 03/03/2016 Ot V76.12 OTH SCREEN MAMMO- MALIGN NEOPLASM OF ETIENNE 03/03/2016 HUMA LOZOYA MD Ot V76.12 OTH SCREEN MAMMO-MALIGN NEOPLASM OF ETIENNE 03/03/2016 APRIL QUINTANILLA APRN Ot 733.90 BONE CARTILAGE DIS NOS 03/03/2016 APRIL QUINTANILLA APRN Ot V65.42 COUNSELING ON SUBSTANCE USE AND ABUSE 03/03/2016 APRIL QUINTANILLA APRN Ot V65.49 OTHER SPECIFIED COUNSELING 03/03/2016 DWIGHT, APRIL A 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 Ot V76.12 OTH SCREEN MAMMO-MALIGN NEOPLASM OF ETIENNE 03/03/2016 JI QUINTANILLAIDI Jp 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 Ot V76.51 SCREEN MAL NEOP-COLON 03/03/2016 JI QUINTANILLAIDI Jp 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 Ot V82.81 SCREENING FOR OSTEOPOROSIS 03/03/2016 Ot V76.12 OTH SCREEN MAMMO- MALIGN NEOPLASM OF ETIENNE 03/03/2016 HUMA LOZOYA MD Ot V76.12 OTH SCREEN MAMMO-MALIGN NEOPLASM OF ETIENNE 03/03/2016 JI QUINTANILLAIDI Jp 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 Ot 733.90 BONE CARTILAGE DIS NOS 03/03/2016 DWIGHTJIAPRIL Jp 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 Ot V65.42 COUNSELING ON SUBSTANCE USE AND ABUSE 03/03/2016 DWIGHT, APRIL A 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 Ot V65.49 OTHER SPECIFIED COUNSELING 03/03/2016 DWIGHTJIAPRIL Jp 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 Ot V76.12 OTH SCREEN MAMMO-MALIGN NEOPLASM OF ETIENNE 03/03/2016 DWIGHTJIAPRIL Jp 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 Ot V76.51 SCREEN MAL NEOP-COLON 03/03/2016 JI QUINTANILLAIDI Jp 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 Ot V82.81 SCREENING FOR OSTEOPOROSIS 03/04/2016 LI LOPEZ APRN Ot J44.9 CHRONIC OBSTRUCTIVE PULMONARY DISEASE, U 03/04/2016 LI LOPEZ APRN Ot S82.401A [facility] FRACTURE OF SHAFT OF RIGHT FIBULA, 03/04/2016 LI LOPEZ APRN Ot S99.911A UNSPECIFIED INJURY OF RIGHT ANKLE, INITI 03/04/2016 LI LOPEZ APRN Ot X58.XXXA EXPOSURE TO OTHER SPECIFIED FACTORS, INI 03/04/2016 LI LOPEZ APRN Ot Y92.[address] IN [facility] NON-INSTITUT (PRIVATE 03/04/2016 LI LOPEZ APRN Ot Y99.8 OTHER EXTERNAL CAUSE STATUS 03/04/2016 LI LOPEZ APRN Ot Z79.82 PANTOGRAPH WATCHER (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 OF ASPIRIN 03/04/2016 LI LOPEZ APRN Ot Z79.899 OTHER [facility] (CURRENT) DRUG THERAPY 03/05/2016 LI LOPEZ APRN Ot J44.9 CHRONIC OBSTRUCTIVE PULMONARY DISEASE, U 03/05/2016 LI LOPEZ APRN Ot S82.401A [facility] FRACTURE OF SHAFT OF RIGHT FIBULA, 03/05/2016 LI LOPEZ 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 Ot S99.911A UNSPECIFIED INJURY OF RIGHT ANKLE, INITI 03/05/2016 LI LOPEZ APRN Ot X58.XXXA EXPOSURE TO OTHER SPECIFIED FACTORS, INI 03/05/2016 LI LOPEZ APRN Ot Y92.[address] IN [facility] (PRIVATE 03/05/2016 LI LOPEZ APRN Ot Y99.8 OTHER EXTERNAL CAUSE STATUS 03/05/2016 LI LOPEZ APRN Ot Z79.82 [facility]URSING HOME (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 OF ASPIRIN 03/05/2016 LI LOPEZ APRN Ot Z79.899 OTHER [facility] HOME (CURRENT) DRUG THERAPY 07/11/2016 MELISSA GARCIA Ot F10.129 ALCOHOL ABUSE WITH INTOXICATION, UNSPECI 07/11/2016 MELISSA GARCIA Ot F17.210 NICOTINE DEPENDENCE, CIGARETTES, UNCOMPL 07/11/2016 MELISSA GARCIA Ot J44.9 CHRONIC OBSTRUCTIVE PULMONARY DISEASE, U 07/11/2016 MELISSA GARCIA Ot Y90.6 BLOOD ALCOHOL LEVEL OF 120-199 MG/100 ML 07/11/2016 MELISSA GARCIA Ot Z79.82 NURSING HOME (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 OF ASPIRIN 07/11/2016 MELISSA GARCIA Ot Z79.899 OTHER PANTOGRAPH WATCHER (CURRENT) DRUG THERAPY 04/06/2017 MALIA JOLLY MD [...] R 04/06/2017 MALIA JOLLY MD Ot Z79.82 NURSING HOME (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 OF ASPIRIN 04/06/2017 MALIA JOLLY [...] FACTORS, INI 04/06/2017 MELISSA GARCIA Ot Z79.82 NURSING HOME (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 OF ASPIRIN 04/06/2017 MELISSA GARCIA [...] R 04/08/2017 MALIA JOLLY MD Ot Z79.82 NURSING HOME (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 OF ASPIRIN 04/08/2017 MALIA JOLLY [...] FACTORS, INI 04/08/2017 MELISSA GARCIA Ot Z79.82 NURSING HOME (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 OF ASPIRIN 04/08/2017 MELISSA GARCIA [...] NEOPLASM OF ETIENNE 05/19/2017 DWIGHT, APRIL A 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 Ot 733.90 BONE CARTILAGE DIS NOS 05/19/2017 DWIGHT, APRIL A 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 Ot V65.42 COUNSELING ON SUBSTANCE USE AND ABUSE 05/19/2017 DWIGHT, APRIL A 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 Ot V65.49 OTHER SPECIFIED COUNSELING 05/19/2017 DWIGHT, APRIL A 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 Ot V76.12 OTH SCREEN MAMMO-MALIGN NEOPLASM OF ETIENNE 05/19/2017 DWIGHT, APRLI A 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 Ot V76.51 SCREEN MAL NEOP-COLON 05/19/2017 DWIGHT, APRIL A 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 Ot V82.81 SCREENING FOR OSTEOPOROSIS 05/19/2017 MELISSA GARCIA Ot R06.02 SHORTNESS OF BREATH 05/19/2017 Ot V76.12 OTH SCREEN MAMMO- MALIGN NEOPLASM OF ETIENNE 05/19/2017 HUMA LOZOYA MD Ot V76.12 OTH SCREEN MAMMO-MALIGN NEOPLASM OF ETIENNE 05/19/2017 DWIGHT, APRIL A 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 Ot 733.90 BONE CARTILAGE DIS NOS 05/19/2017 DWIGHT, APRIL A 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 Ot V65.42 COUNSELING ON SUBSTANCE USE AND ABUSE 05/19/2017 DWIGHT, APRIL A 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 Ot V65.49 OTHER SPECIFIED COUNSELING 05/19/2017 DWIGHT, APRIL A 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 Ot V76.12 OTH SCREEN MAMMO-MALIGN NEOPLASM OF ETIENNE 05/19/2017 DWIGHT, APRIL A 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 Ot V76.51 SCREEN MAL NEOP-COLON 05/19/2017 DWIGHT, APRIL A 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 Ot V82.81 SCREENING FOR OSTEOPOROSIS 05/19/2017 MELISSA GARCIA Ot R06.02 SHORTNESS OF BREATH 05/20/2017 Ot V76.12 OTH SCREEN MAMMO- MALIGN NEOPLASM OF ETIENNE 05/20/2017 DEVORA PINEDO, HUMA Sparks Ot V76.12 OTH SCREEN MAMMO-MALIGN NEOPLASM OF ETIENNE 05/20/2017 APRIL QUINTANILLA Jp 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 Ot 733.90 BONE CARTILAGE DIS NOS 05/20/2017 DWIGHTJIAPRIL A 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 Ot V65.42 COUNSELING ON SUBSTANCE USE AND ABUSE 05/20/2017 DWIGHTJIAPRIL A 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 Ot V65.49 OTHER SPECIFIED COUNSELING 05/20/2017 JI QUINTANILLAIDI Jp 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 Ot V76.12 OTH SCREEN MAMMO-MALIGN NEOPLASM OF ETIENNE 05/20/2017 JI QUINTANILLAGYPSY Trammell 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 Ot V76.51 SCREEN MAL NEOP-COLON 05/20/2017 DWIGHT APRIL A 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 Ot V82.81 SCREENING FOR OSTEOPOROSIS 05/21/2017 ASHLYN [...] BREATH 05/21/2017 LI LOPEZ APRN Ot Z79.82 NURSING HOME (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 OF ASPIRIN 05/21/2017 LI LOPEZ [...] BREATH 05/24/2017 LI LOPEZ APRN Ot Z79.82 NURSING HOME (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 OF ASPIRIN 05/24/2017 LI LOPEZ APRN Ot Z80.8 FAMILY HISTORY OF MALIGNANT NEOPLASM OF 05/24/2017 LI LOPEZ APRN Ot Z87.448 PERSONAL HISTORY OF OTHER DISEASES OF UR 05/24/2017 LI LOPEZ APRN Ot Z91.5 PERSONAL HISTORY OF SELF-HARM 05/29/2017 SHAHANA ROSENTHALP Ot F10.129 ALCOHOL ABUSE WITH INTOXICATION, UNSPECI 05/29/2017 SHAHANA ROSENTHAL SYNTHETIC CLOTH BINDING CUTTER Ot F12.90 CANNABIS USE, UNSPECIFIED, UNCOMPLICATED 05/29/2017 SHAHANA ROSENTHALP Ot F31.9 BIPOLAR DISORDER, UNSPECIFIED 05/29/2017 SHAHANA ROSENTHALP Ot F41.9 ANXIETY DISORDER, UNSPECIFIED 05/29/2017 SHAHANA ROSENTHAL SYNTHETIC CLOTH BINDING CUTTER Ot G47.30 SLEEP APNEA, UNSPECIFIED 05/29/2017 SHAHANA ROSENTHALP Ot G47.9 SLEEP DISORDER, UNSPECIFIED 05/29/2017 SHAHANA ROSENTHALP Ot J44.9 CHRONIC OBSTRUCTIVE PULMONARY DISEASE, U 05/29/2017 SHAHANA ROSENTHAL SYNTHETIC CLOTH BINDING CUTTER Ot R06.02 SHORTNESS OF BREATH 05/29/2017 SHAHANA ROSENTHALP Ot Z77.22 CNTCT W AND EXPSR TO ENVIRON TOBACCO SMO 05/29/2017 SHAHANA ROSENTHAL SYNTHETIC CLOTH BINDING CUTTER Ot Z79.82 NURSING HOME (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 OF ASPIRIN 05/29/2017 SHAHANA ROSENTHAL SYNTHETIC CLOTH BINDING CUTTER Ot Z87.81 PERSONAL HISTORY OF (HEALED) TRAUMATIC [...] DISEASE, U 06/08/2017 MELISSA GARCIA Ot Z79.82 NURSING HOME (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 OF ASPIRIN 06/08/2017 MELISSA GARCIA [...] DISEASE, U 06/10/2017 MELISSA GARCIA Ot Z79.82 NURSING HOME (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 OF ASPIRIN 06/10/2017 MELISSA GARCIA Ot Z80.8 FAMILY HISTORY OF MALIGNANT NEOPLASM OF 06/10/2017 MELISSA GARCIA Ot Z91.5 PERSONAL HISTORY OF SELF-HARM 08/19/2017 LI LOPEZ APRN Ot F10.229 ALCOHOL DEPENDENCE WITH INTOXICATION, UN 08/19/2017 LI LOPEZ 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 Ot F12.10 CANNABIS ABUSE, UNCOMPLICATED 08/19/2017 LI [...] SMO 08/19/2017 LI LOPEZ APRN Ot Z79.82 PANTOGRAPH WATCHER (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 OF ASPIRIN 08/19/2017 LI LOPEZ [...] SMO 08/23/2017 LI LOPEZ APRN Ot Z79.82 PANTOGRAPH WATCHER (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 OF ASPIRIN 08/23/2017 LI LOPEZ 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 Ot Z80.8 FAMILY HISTORY OF MALIGNANT NEOPLASM [...] TO ENVIRON TOBACCO SMO 09/13/2017 Ot Z79.82 PANTOGRAPH WATCHER (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 OF ASPIRIN 09/13/2017 Ot Z80.8 [...] TOBACCO SMO 10/10/2017 MARINA MULLINSIS Ot Z79.82 PANTOGRAPH WATCHER (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 OF ASPIRIN 10/10/2017 HARPREET JENIFER [...] TOBACCO SMO 10/12/2017 JENIFER MULLINS Ot Z79.82 PANTOGRAPH WATCHER (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 OF ASPIRIN 10/12/2017 JENIFER MULLINS [...] JENIFER MULLINS Ot F10.10 ALCOHOL ABUSE, UNCOMPLICATED 06/29/2018 JENIFER MULLINS Ot F31.9 BIPOLAR DISORDER, UNSPECIFIED 06/29/2018 JENIFER MULLINS Ot F41.9 ANXIETY DISORDER, UNSPECIFIED 06/29/2018 JENIFER MULLINS Ot J44.9 CHRONIC OBSTRUCTIVE PULMONARY DISEASE, U 06/29/2018 JENIFER MULLINS Ot R40.2142 COMA SCALE, EYES OPEN, SPONTANEOUS, EMR 06/29/2018 JENIFER MULLINS Ot R40.2252 COMA SCALE, BEST VERBAL RESPONSE, ORIENT 06/29/2018 JENIFER MULLINS Ot R40.2362 COMA SCALE, BEST MOTOR RESPONSE, OBEYS C 06/29/2018 JENIFER MULLINS Ot S00.83XA CONTUSION OF OTHER PART OF HEAD, INITIAL 06/29/2018 JENIFER MULLINS Ot S09.93XA UNSPECIFIED INJURY OF FACE, INITIAL ENCO 06/29/2018 JENIFER MULLINS Ot W01.198A FALL SAME LEV FROM SLIP/TRIP W STRIKE AG 06/29/2018 JENIFER MULLINS Ot Z77.22 CNTCT W AND EXPSR TO ENVIRON TOBACCO SMO 06/29/2018 JENIFER MULLINS Ot Z79.82 NURSING HOME (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 OF ASPIRIN 06/29/2018 JENIFER MULLINS Ot Z80.8 FAMILY HISTORY OF MALIGNANT NEOPLASM OF 07/01/2018 JENIFER MULLINS Ot F31.9 BIPOLAR DISORDER, UNSPECIFIED 07/01/2018 JENIFER MULLINS Ot F41.9 ANXIETY DISORDER, UNSPECIFIED 07/01/2018 JENIFER MULLINS Ot J44.9 CHRONIC OBSTRUCTIVE PULMONARY DISEASE, U 07/01/2018 JENIFER MULLINS Ot R40.2142 COMA SCALE, EYES OPEN, SPONTANEOUS, EMR 07/01/2018 JENIFER MULLINS Ot R40.2252 COMA SCALE, BEST VERBAL RESPONSE, ORIENT 07/01/2018 JENIFER MULLINS Ot R40.2362 COMA SCALE, BEST MOTOR RESPONSE, OBEYS C 07/01/2018 MARINA MULLINSIS Ot S00.83XA CONTUSION OF OTHER PART OF HEAD, INITIAL 07/01/2018 MARINA MULLINSIS Ot S09.93XA UNSPECIFIED INJURY OF FACE, INITIAL ENCO 07/01/2018 JENIFER MULLINS Ot W01.198A FALL SAME LEV FROM SLIP/TRIP W STRIKE AG 07/01/2018 JENIFER MULLINS Ot Z77.22 CNTCT W AND EXPSR TO ENVIRON TOBACCO SMO 07/01/2018 JENIFER MULLINS Ot Z79.82 NURSING HOME (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 OF ASPIRIN 07/01/2018 JENIFER MULLINS Ot Z80.8 FAMILY HISTORY OF MALIGNANT NEOPLASM OF 07/05/2018 JENIFER MULLINS Ot F31.9 BIPOLAR DISORDER, UNSPECIFIED 07/05/2018 JENIFER MULLINS Ot F41.9 ANXIETY DISORDER, UNSPECIFIED 07/05/2018 [...] TOBACCO SMO 07/05/2018 JENIFER MULLINS Ot Z79.82 PANTOGRAPH WATCHER (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 OF ASPIRIN 07/05/2018 JENIFER MULLINS Ot Z80.8 FAMILY HISTORY OF MALIGNANT NEOPLASM OF 07/06/2018 LI LOPEZ APRN Ot F10.10 ALCOHOL ABUSE, UNCOMPLICATED 07/06/2018 LI LOPEZ APRN Ot F10.229 ALCOHOL DEPENDENCE WITH INTOXICATION, UN 07/06/2018 LI LOPEZ 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 Ot F31.9 BIPOLAR DISORDER, UNSPECIFIED 07/06/2018 LI LOPEZ APRN Ot F41.9 ANXIETY DISORDER, UNSPECIFIED 07/06/2018 LI LOPEZ APRN Ot G47.30 SLEEP APNEA, UNSPECIFIED 07/06/2018 LI LOPEZ APRN Ot J44.9 CHRONIC OBSTRUCTIVE PULMONARY DISEASE, U 07/06/2018 LI LOPEZ APRN Ot Z77.22 CNTCT W AND EXPSR TO ENVIRON TOBACCO SMO 07/06/2018 LI LOPEZ APRN Ot Z79.82 PANTOGRAPH WATCHER (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 OF ASPIRIN 07/06/2018 IL LOPEZ APRN Ot Z80.8 FAMILY HISTORY OF MALIGNANT NEOPLASM OF 07/06/2018 LI LOPEZ APRN Ot Z87.448 PERSONAL HISTORY OF OTHER DISEASES OF UR 07/06/2018 LI LOPEZ APRN Ot Z91.5 PERSONAL HISTORY OF SELF-HARM 07/12/2018 AMBER MCKEON DO Ot J98.9 RESPIRATORY DISORDER, UNSPECIFIED Procedures Code Description Performed By Performed On [facility] 10/09/2011 78689 UA W/ CULTURE IF INDICATED 02/19/2012 96335 ROUTINE VENIPUNCTURE 02/22/2012 78518 CBC 02/22/2012 96243 LIPID PANEL 02/22/2012 01768 CMP 02/22/2012 [id number] GFR CALC (RESULT ONLY) 02/22/2012 27128 TSH 02/23/2012 46907 MAMMOGRAM, SCREENING 02/23/2012 74918 HEMOCCULT 02/23/2012 25874 PAP SMEAR 02/23/2012 Q0091 PAP SMEAR OBTAIN SMEAR 02/23/2012 29236 URINE DRUG SCREEN (IN-HOUSE) 01/18/2013 80031 MAMMOGRAM, SCREENING 01/19/2013 URINEDRUG URINE DRUG SCREEN (CON'F) 01/19/2013 18455 BONE DENSITY, DEXA 04/17/2013 GENERAL S Kido, Ken 04/17/2013 38968 BONE MINERAL DENSITY, HEEL US (IN HOUSE) 04/17/2013 74711 XRAY CERVICAL SPINE, 2 OR 3 VIEWS 06/02/2013 24592 ROUTINE VENIPUNCTURE 02/16/2014 21799 MAMMOGRAM, SCREENING 02/16/2014 [id number] GFR CALC (RESULT ONLY) 02/16/2014 79328 CMP 02/16/2014 Results Test Result Range Complete [...] Status Pt. Type Provider Facility Loc./Unit Complaint [id number] 02/16/2014 11:31:00 02/16/2014 23:59:59 CLS Outpatient HUMA LOZOYA MD [id number] 12/02/2013 06:43:00 12/02/2013 23:59:59 CLS Outpatient HUMA LOZOYA MD [id number] 11/27/2013 11:19:00 11/27/2013 23:59:59 CLS Outpatient HUMA LOZOYA MD [id number] 10/30/2013 12:59:00 10/30/2013 23:59:59 CLS Outpatient ADDIS SPRINGER APRN [id number] 09/18/2013 13:40:00 09/18/2013 23:59:59 CLS Outpatient HUMA LOZOYA MD [id number] 07/25/2013 16:53:00 07/25/2013 23:59:59 CLS Outpatient HUMA LOZOYA MD [id number] 06/02/2013 11:36:00 06/02/2013 23:59:59 CLS Outpatient BERRY BALDERRAMA DO [id number] 06/02/2013 11:36:00 06/02/2013 23:59:59 CLS Outpatient BERRY BALDERRAMA DO [id number] 04/17/2013 10:34:00 04/17/2013 23:59:59 CLS Outpatient APRIL QUINTANILLA APRN [id number] 04/17/2013 10:34:00 04/17/2013 23:59:59 CLS Outpatient APRIL QUINTANILLA APRN [id number] 03/02/2013 13:45:00 03/02/2013 23:59:59 CLS Outpatient HUMA LOZOYA MD [id number] 03/02/2013 13:45:00 03/02/2013 23:59:59 CLS Outpatient HUMA LOZOYA MD [id number] 01/18/2013 14:08:00 01/18/2013 23:59:59 CLS Outpatient HUMA LOZOYA MD [id number] 12/19/2012 11:31:00 12/19/2012 23:59:59 CLS Outpatient HUMA LOZOYA MD [id number] 09/29/2012 16:24:00 09/29/2012 23:59:59 CLS Outpatient HUMA LOZOYA MD [id number] 03/28/2012 11:42:00 03/28/2012 23:59:59 CLS Outpatient HUMA LOZOYA MD [id number] 02/22/2012 09:43:00 02/22/2012 23:59:59 CLS Outpatient BERRY BALDERRAMA DO [id number] 02/19/2012 13:27:00 02/19/2012 23:59:59 CLS Outpatient BERRY BALDERRAMA DO [id number] 10/02/2011 09:36:00 10/02/2011 23:59:59 [place] [id number] 10/02/2011 09:36:00 10/02/2011 23:59:59 CLS Outpatient [id number] 06/24/2012 13:29:00 Document Registration [id number] 06/30/2018 19:44:00 06/30/2018 20:07:00 DIS Outpatient LI LOPEZ APRN [facility] ER ETOH [id number] 06/30/2018 18:56:00 06/30/2018 19:02:00 DIS Outpatient AMBER MCKEON DO [facility] ER RESPIRATORY ISSUES [id number] 06/29/2018 20:32:00 06/29/2018 23:16:00 DIS Emergency JENIFER MULLINS [facility] ER FALL [id number] 10/12/2017 15:37:00 10/12/2017 16:02:00 DIS Emergency JENIFER MULLINS [facility] ER ETOH [id number] 10/10/2017 12:17:00 10/10/2017 14:11:00 DIS Emergency JENIFER MULLINS [facility] ER SOB/ETOH [id number] 08/19/2017 18:05:00 08/19/2017 18:55:00 DIS Emergency LI LOPEZ APRN [facility] ER SOB/ETOH DETOX [id number] 06/08/2017 20:29:00 06/08/2017 21:10:00 DIS Emergency MELISSA GARCIA [facility] ER SOA [id number] 05/29/2017 16:55:00 05/29/2017 18:10:00 DIS Emergency ARIADNASHAHANA [facility] ER SOA [id number] 05/21/2017 21:00:00 05/21/2017 22:16:00 DIS Emergency LI LOPEZ APRN [facility] ER SOB [id number] 05/19/2017 17:05:00 05/19/2017 17:31:00 DIS Outpatient HONEY GOLDBERG MD [facility] ER SOA [id number] 05/11/2017 21:12:00 05/11/2017 21:57:00 DIS Emergency MELISSA GARCIA [facility] ER SOA [id number] 04/06/2017 18:38:00 04/06/2017 20:05:00 DIS Emergency MELISSA GARCIA [facility] ER ANKLE PAIN [id number] 04/06/2017 12:39:00 04/06/2017 15:08:00 DIS Emergency MALIA JOLLY MD [facility] ER DRUG/ETOH ABUSE [id number] 07/11/2016 16:09:00 07/11/2016 19:12:00 DIS Emergency MELISSA GARCIA [facility] ER ALCOHOL INTOX [id number] 03/03/2016 15:38:00 03/03/2016 16:45:00 DIS Emergency LI LOPEZ APRN [facility] ER R ANKLE PAIN [id number] 05/02/2015 16:39:00 05/04/2015 13:14:00 DIS Inpatient FINESSE MOY MD [facility] 4TH RLL PNUEMONIA [id number] 11/19/2013 22:15:00 11/20/2013 10:50:00 DIS Inpatient DANICA LERNER MD [facility] ICU ETOH INTOXICATION, AMS [id number] 10/02/2013 15:43:00 10/03/2013 14:03:00 DIS Inpatient BERRY BALDERRAMA DO K [facility] ICU SUICIDAL/HOMICIDAL IDEATION, ETOH INTOXICATION [id number] 04/27/2013 09:25:00 04/27/2013 23:59:59 CLS Outpatient APRIL QUINTANILLA 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 [facility] RAD OSTEOPENIA [id number] 03/06/2013 10:54:00 03/06/2013 23:59:59 CLS Outpatient HUMA LOZOYA MD [facility] RAD SCREENING [id number] 11/14/2012 15:16:00 11/14/2012 23:59:59 CLS Outpatient [id number] 09/19/2012 13:31:00 09/19/2012 23:59:59 CLS Outpatient [id number] 08/22/2012 15:17:00 08/22/2012 23:59:59 CLS Outpatient [id number] 08/04/2012 14:36:00 08/04/2012 23:59:59 CLS Outpatient [id number] 07/20/2012 12:07:00 07/20/2012 13:45:00 DIS Emergency CURTIS DO FRANCISCO Montes [facility] ER FELL INJ L ARM [id number] 07/13/2018 17:16:00 ACT Emergency JENIFER MULLINS [facility] ER R ANKLE PAIN [id number] 09/13/2017 11:13:00 Document Registration [id number] 03/16/2014 10:56:00 Document Registration [id number] 03/04/2012 10:23:00 Document Registration
[2018-07-13 19:38] VITALS: BP 102/83
--- NOTE | 2018-07-13 19:38 | NUR ---
Pt refuses to wear step lite boot prescribed by provider. Pt states, "I can't walk with that thing!" Education provided to pt regarding risks and benefits associated with and without wear walking boot. Pt verbalized understanding. Pt amb out of ed w/o difficulty. a&ox4. No distress noted.
== END 2018-07-13 19:38 | disposition home or self-care (01) ==
LOC: EDUNIT# 17:15 → ER 17:16
DX: S82.61XA Displaced fracture of lateral malleolus of right fibula, initial encounter for closed fracture (principal); F10.229 Alcohol dependence with intoxication, unspecified; J44.9 Chronic obstructive pulmonary disease, unspecified; G47.30 Sleep apnea, unspecified; F41.9 Anxiety disorder, unspecified; F31.9 Bipolar disorder, unspecified; Z91.5 Personal history of self-harm; Z79.82 Long term (current) use of aspirin; Z77.22 Contact with and (suspected) exposure to environmental tobacco smoke (acute) (chronic); Z80.8 Family history of malignant neoplasm of other organs or systems; Z87.448 Personal history of other diseases of urinary system; W10.1XXA Fall (on)(from) sidewalk curb, initial encounter; Y92.480 Sidewalk as the place of occurrence of the external cause
CPT/HCPCS: 71045; 73610

== ENCOUNTER 2018-09-09 18:59 | Emergency (ER) | payer MEDICAID ==
[~2018-09-09] VITALS: Ht 160 cm; Wt 52.2 kg
[~2018-09-09 18:59] MED LIST changes: -TIZA4TAB3 PO; +TIZA4TAB4 PO
--- OUTSIDE RECORDS SUMMARY | 2018-09-09 19:04 | XMS REPORT ---
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 Role Phone HUMA LOZOYA Unavailable PROBLEMS Type Condition ICD9-CM Code ALI66-EM Code Onset Dates Condition Status SNOMED Code Problem Other and unspecified hyperlipidemia 272.4 Active 01243916 Problem Asthma J45.909 Active 130672936 Problem Alcoholism F10.20 Active 6841296 Problem Arthritis M19.90 Active 6438954 Problem Other chronic pain G89.29 Active 49219148 Problem Bipolar disorder F31.9 Active 83976714 Problem Closed fracture of shaft of right fibula, unspecified fracture morphology, initial encounter S82.401A Active 79340455 Problem Major depressive disorder, single episode F32.9 Active 12538073 Problem Arthropathy, unspecified M12.9 Active 845272134 ALLERGIES No Information ENCOUNTERS Encounter Location Date Diagnosis [facility] [id number] [place] [address] Jul, [facility] [id number] [place] [address] Apr, [facility] [id number] [place] [address] Apr, Injury of right ankle, initial encounter S99.911A and Encounter for immunization Z23 [facility] [id number] [place] [address] Dec, [facility] [address] [address] Nov, Pain in right ankle and joints of right foot M25.571 ; Other chronic pain G89.29 and Post-traumatic arthritis of right ankle M19.171 [facility] [id number] [place] [address] Oct, Arthritis M19.90 [facility] [address] [address] Aug, Arthritis M19.90 [facility] [id number] [place] [address] Aug, [facility] [address] [address] Jul, [facility] [id number] [place] [address] June, Arthropathy, unspecified M12.9 [facility] [address] [address] May, Asthma J45.909 and Major depressive disorder, single episode F32.9 [facility] [address] [address] Mar, Closed fracture of shaft of right fibula, unspecified fracture morphology, initial encounter S82.401A [facility] [address] [address] Feb, [facility] [id number] [place] [address] Feb, [facility] [id number] [place] [address] Nov, [facility] [id number] [place] [address] Nov, Bipolar disorder F31.9 ; Encounter for immunization Z23 and Asthma J45.909 [facility] [id number] [place] [address] Aug, [facility] [id number] [place] [address] May, [facility] [address] [address] Apr, [facility] [id number] [place] [address] Apr, [facility] [id number] [place] [address] Apr, URI (upper respiratory infection) J06.9 and Bipolar disorder F31.9 [facility] [address] [address] Feb, [facility] [address] [address] Feb, Asthma J45.909 and Alcoholism F10.20 [facility] [place] [address] [address] Jan, [facility] [address] [address] Jan, [facility] [address] [address] Jan, [facility] [id number] [place] [address] Nov, Alcoholism F10.20 and Anxiety F41.9 [facility] [id number] [place] [address] Jul, Anxiety 300.00 and Arthropathy 716.90 [facility] [id number] [place] [address] Jul, [facility] [id number] [place] [address] Jul, Anxiety state 300.00 [facility] [id number] [place] [address] 14 May, 2014 [facility] [id number] [place] [address] May, [facility] [address] [place] [address] Apr, [facility] [place] [facility] [address] [id number] [place] [address] Apr, [facility] [place] [facility] [address] [id number] [place] [address] Mar, [facility] [place] [facility] [address] [id number] [place] [address] Mar, [facility] [place] [facility] [address] [id number] [place] [address] Feb, [facility] [place] [facility] [address] [id number] [place] [address] Feb, [facility] [place] [facility] [address] [id number] [place] [address] Feb, [facility] [place] [facility] [address] [id number] [place] [address] Feb, [facility] [place] [facility] [address] [id number] [place] [address] Jan, [facility] [place] [facility] [address] [id number] [place] [address] Jan, [facility] [place] [facility] [address] [facility] [id number] [place] [address] Jan, [facility] [place] [facility] [address] [id number] [place] [address] Jan, [facility] [place] [facility] [address] [id number] [place] [address] Nov, [facility] [place] [facility] [address] [id number] [place] [address] Nov, [facility] [place] [facility] [address] [id number] [place] [address] Nov, [facility] [place] [facility] [address] [id number] [place] [address] Nov, [facility] [place] [facility] [address] [id number] [place] [address] Nov, [facility] [place] [facility] [address] [id number] [place] [address] Nov, [facility] [place] [facility] [address] [id number] [place] [address] Nov, [facility] [place] [facility] [address] [id number] [place] [address] Nov, [facility] [place] [facility] [address] [id number] [place] [address] Nov, [facility] [place] [facility] [address] [id number] [place] [address] Nov, [facility] [place] [facility] [address] [id number] [place] [address] Nov, [facility] [place] [facility] [address] [id number] [place] [address] Nov, [facility] [place] [facility] [address] [id number] [place] [address] Nov, [facility] [place] [facility] [address] [id number] [place] [address] 30 Oct, 2013 [facility] [place] [facility] [address] [id number] [place] [address] 30 Oct, 2013 [facility] [place] [facility] [address] [id number] [place] [address] 26 Oct, 2013 [facility] [place] [facility] [address] [id number] [place] [address] 26 Oct, 2013 [facility] [place] [facility] [address] [id number] [place] [address] 08 Oct, 2013 [facility] [place] [facility] [address] [id number] [place] [address] 08 Oct, 2013 [facility] [place] [facility] [address] [id number] [place] [address] Oct, 2013 [facility] [place] [facility] [address] [id number] [place] [address] Oct, 2013 [facility] [place] [facility] [address] [id number] [place] [address] Oct, [facility] [place] [facility] [address] [id number] [place] [address] Oct, 2013 [facility] [place] [facility] [address] [id number] [place] [address] Oct, 2013 [facility] [place] [facility] [address] [id number] [place] [address] Oct, [facility] [place] [facility] [address] [id number] [place] [address] Sep, [facility] [place] [facility] [address] [id number] [place] [address] Sep, [facility] [place] [facility] [address] [id number] [place] [address] Sep, [facility] [place] [facility] [address] [id number] [place] [address] Sep, [facility] [place] [facility] [address] [id number] [place] [address] Sep, [facility] [place] [facility] [address] [id number] [place] [address] Sep, [facility] [place] [facility] [address] [id number] [place] [address] Sep, [facility] [place] [facility] [address] [id number] [place] [address] Sep, [facility] [place] [facility] [address] [id number] [place] [address] Aug, [facility] [place] [facility] [address] [id number] [place] [address] Aug, [facility] [place] [facility] [address] [id number] [place] [address] Aug, [facility] [place] [facility] [address] [id number] [place] [address] Aug, [facility] [place] [facility] [address] [id number] [place] [address] Jul, [facility] [place] [facility] [address] [id number] [place] [address] Jul, [facility] [place] [facility] [address] [id number] [place] [address] Jul, [facility] [place] [facility] [address] [id number] [place] [address] Jul, [facility] [place] [facility] [address] [id number] [place] [address] Jul, [facility] [place] [facility] [address] [id number] [place] [address] Jul, [facility] [place] [facility] [address] [id number] [place] [address] June, [facility] [place] [facility] [address] [id number] [place] [address] June, [facility] [place] [facility] [address] [id number] [place] [address] June, [facility] [place] [facility] [address] [id number] [place] [address] June, [facility] [place] [facility] [address] [id number] [place] [address] June, [facility] [place] [facility] [address] [id number] [place] [address] June, [facility] [place] [facility] [address] [id number] [place] [address] May, [facility] [place] [facility] [address] [id number] [place] [address] May, [facility] [place] [facility] [address] [id number] [place] [address] May, [facility] [place] [facility] [address] [id number] [place] [address] May, [facility] [place] [facility] [address] [id number] [place] [address] May, [facility] [place] [facility] [address] [id number] [place] [address] May, [facility] [place] [facility] [address] [id number] [place] [address] May, [facility] [place] [facility] [address] [id number] [place] [address] May, [facility] [place] [facility] [address] [id number] [place] [address] May, [facility] [place] [facility] [address] [id number] [place] [address] May, [facility] [place] [facility] [address] [id number] [place] [address] Apr, [facility] [place] [facility] [address] [id number] [place] [address] Apr, [facility] [place] [facility] [address] [id number] [place] [address] Apr, [facility] [place] [facility] [address] [id number] [place] [address] Apr, [facility] [place] [facility] [address] [id number] [place] [address] Apr, [facility] [place] [facility] [address] [id number] [place] [address] Apr, [facility] [place] [facility] [address] [id number] [place] [address] Apr, [facility] [place] [facility] [address] [id number] [place] [address] Apr, [facility] [place] [facility] [address] [id number] [place] [address] Apr, [facility] [place] [facility] [address] [id number] [place] [address] Apr, [facility] [place] [facility] [address] [id number] [place] [address] Apr, [facility] [place] [facility] [address] [id number] [place] [address] Apr, [facility] [place] [facility] [address] [id number] [place] [address] Mar, [facility] [place] [facility] [address] [id number] [place] [address] Mar, [facility] [place] [facility] [address] [id number] [place] [address] Mar, [facility] [place] [facility] [address] [id number] [place] [address] Mar, [facility] [place] [facility] [address] [id number] [place] [address] Feb, [facility] [place] [facility] [address] [id number] [place] [address] Feb, [facility] [place] [facility] [address] [id number] [place] [address] Feb, [facility] [place] [facility] [address] [id number] [place] [address] Feb, [facility] [place] [facility] [address] [id number] [place] [address] Feb, [facility] [place] [facility] [address] [id number] [place] [address] Feb, [facility] [place] [facility] [address] [id number] [place] [address] Feb, [facility] [place] [facility] [address] [id number] [place] [address] Feb, [facility] [address] [id number] [place] [address] Feb, [facility] [address] [id number] [place] [address] Feb, [facility] [address] [id number] [place] [address] Jan, [facility] [address] [id number] [place] [address] Jan, [facility] [address] [id number] [place] [address] Jan, [facility] [address] [id number] [place] [address] Jan, [facility] [address] [id number] [place] [address] Jan, [facility] [address] [id number] [place] [address] Jan, [facility] [address] [id number] [place] [address] Jan, [facility] [address] [id number] [place] [address] Jan, [facility] [place] [facility] [address] [id number] [place] [address] Jan, [facility] [place] [facility] [address] [id number] [place] [address] Dec, [facility] [place] [facility] [address] [id number] [place] [address] Dec, [facility] [place] [facility] [address] [id number] [place] [address] Dec, [facility] [place] [facility] [address] [id number] [place] [address] Dec, [facility] [place] [facility] [address] [id number] [place] [address] Nov, [facility] [place] [facility] [address] [id number] [place] [address] Nov, [facility] [place] [facility] [address] [id number] [place] [address] Nov, [facility] [place] [facility] [address] [id number] [place] [address] Nov, [facility] [place] [facility] [address] [id number] [place] [address] Nov, [facility] [place] [facility] [address] [id number] [place] [address] Nov, [facility] [place] [facility] [address] [id number] [place] [address] Oct, [facility] [place] [facility] [address] [id number] [place] [address] Oct, [facility] [place] [facility] [address] [id number] [place] [address] Sep, [facility] [place] [facility] [address] [id number] [place] [address] Sep, [facility] [place] [facility] [address] [id number] [place] [address] Sep, [facility] [place] [facility] [address] [id number] [place] [address] Sep, [facility] [place] [facility] [address] [id number] [place] [address] Aug, [facility] [place] [facility] [address] [id number] [place] [address] Aug, [facility] [place] [facility] [address] [id number] [place] [address] Aug, [facility] [place] [facility] [address] [id number] [place] [address] 27 Jul, 2012 [facility] [address] [id number] [place] [address] Jul, [facility] [address] [id number] [place] [address] Jul, [facility] [address] [id number] [place] [address] Jul, [facility] [address] [id number] [place] [address] June, [facility] [address] [id number] [place] [address] June, [facility] [address] [id number] [place] [address] May, [facility] [address] [id number] [place] [address] May, [facility] [address] [id number] [place] [address] Apr, [facility] [address] [id number] [place] [address] Apr, [facility] [address] [id number] [place] [address] Mar, [facility] [address] [id number] [place] [address] Mar, [facility] [address] [id number] [place] [address] Feb, [facility] [address] [id number] [place] [address] Feb, [facility] [address] [id number] [place] [address] Feb, [facility] [address] [id number] [place] [address] Feb, [facility] [address] [id number] [place] [address] 17 Feb, 2012 [facility] [place] [facility] [address] [id number] [place] [address] 16 Feb, 2012 [facility] [place] [facility] [address] [id number] [place] [address] 16 Feb, 2012 [facility] [place] [facility] [address] [id number] [place] [address] 14 Feb, 2012 [facility] [place] [facility] [address] [id number] [place] [address] 11 Feb, 2012 [facility] [place] [facility] [address] [id number] [place] [address] Jan, [facility] [place] [facility] [address] [id number] [place] [address] Jan, [facility] [place] [facility] [address] [id number] [place] [address] Jan, [facility] [place] [facility] [address] [id number] [place] [address] Jan, [facility] [place] [facility] [address] [id number] [place] [address] Dec, [facility] [place] [facility] [address] [id number] [place] [address] Dec, [facility] [place] [facility] [address] [id number] [place] [address] Dec, [facility] [place] [facility] [address] [id number] [place] [address] Dec, [facility] [place] [facility] [address] [id number] [place] [address] 24 Oct, 2011 [facility] [place] [facility] [address] [id number] [place] [address] Sep, [facility] [place] [facility] [id number] [place] [address] Sep, [facility] [id number] [place] [address] Aug, [facility] [id number] [place] [address] Jul, [facility] [address] [address] June, [facility] [address] [address] June, [facility] [id number] [place] [id number] May, [facility] [id number] [place] [id number] Apr, [facility] [id number] [place] [id number] Mar, [facility] [address] [address] Mar, [facility] [id number] [place] [id number] Feb, [facility] [address] [address] Dec, [facility] [address] [address] Nov, [facility] [address] [address] Sep, [facility] [id number] [address] Aug, IMMUNIZATIONS No Known Immunizations SOCIAL HISTORY Never Assessed REASON FOR VISIT PLAN OF CARE VITAL SIGNS MEDICATIONS Unknown Medications RESULTS No Results PROCEDURES No Known procedures INSTRUCTIONS MEDICATIONS ADMINISTERED No Known Medications MEDICAL (GENERAL) HISTORY Type Description Date Medical History asthma Medical History headache Medical History chronic pain-low back with spasms Medical History anxiety Medical History depression Hospitalization History childbirth x 4
--- NOTE | 2018-09-09 19:11 | ED Fall/Injury ---
General Stated Complaint: FALL Source: patient, EMS Exam Limitations: no limitations History of Present Illness Date Seen by Provider: Sep 09, 2018 Time Seen by Provider: 18:53 Initial Comments The patient presents to ER by EMS with chief complaint she was out in front of her house drinking beer with a neighbor and she had a fall. The neighbor said she struck her head but she denies striking her head. The neighbor denies she had any loss of consciousness. She's not having any residual pain. She says she drinks beer and does not know how many she's had tonight. She says she is an alcoholic but when offered help with the alcohol dependency she declines. She denies any shortness of breath nausea fever chills. EMS reports she had inconti nence of urine on the way. Allergies and Home Medications Allergies Coded Allergies: No Known Drug Allergies (Unverified , 07/20/12) Home Medications Aspirin 81 Mg Tablet.dr, 81 MG PO DAILY, (Reported) Buspirone HCl 10 Mg Tablet, 10 MG PO BID, (Reported) Cefpodoxime Proxetil 200 Mg Tablet, 200 MG PO BID Prescribed by: FINESSE DESAI on 05/04/15 1211 Diclofenac Sodium 75 Mg Tablet.dr, 75 MG PO BID, (Reported) Furosemide 40 Mg Tablet, 40 MG PO DAILY, (Reported) Gabapentin 300 Mg Capsule, 300 MG PO TID, (Reported) Hydrocodone/Acetaminophen 1 Each Tablet, 1 EACH PO Q4H PRN for PAIN Prescribed by: LI LOPEZ on 03/03/16 1620 Levomilnacipran Hydrochloride 80 Mg Cap.sa.24h, 80 MG PO DAILY, (Reported) Loratadine 10 Mg Tablet, 10 MG PO DAILY, (Reported) Lorazepam 0.5 Mg Tablet, 0.5 MG PO DAILY PRN for ANXIETY, (Reported) Multivitamin 1 Each Tablet, 1 TAB PO DAILY, (Reported) Potassium Chloride 20 Meq Tab.er.prt, 20 MEQ PO DAILY, (Reported) Quetiapine Fumarate 100 Mg Tablet, 100 MG PO HS, (Reported) Tizanidine HCl 4 Mg Tablet, 4 MG PO TID PRN for MUSCLE SPASMS, (Reported) Patient Home Medication List Home Medication List Reviewed: Yes Review of Systems Review of Systems Constitutional: No chills, No diaphoresis Eyes: Denies Blindness, Denies Blurred Vision Ears, Nose, Mouth, Throat: denies ear pain, denies ear discharge Respiratory: No cough, No short of breath Cardiovascular: No chest pain, No edema Gastrointestinal: No abdominal pain, No constipation Past Pnchnhr-Doityh-Wfqnds Hx Patient Social History Alcohol Use: Regular Use Alcohol Beverage of Choice: Beer, Whiskey, [place] Recreational Drug Use: Yes Drug of Choice: CANNIBUS Smoking Status: Current Everyday Smoker Type Used: Cigarettes 2nd Hand Smoke Exposure: Yes Recent Hopitalizations: No Immunizations Up To Date Tetanus Booster (TDap): Unknown PED Vaccines UTD: No Seasonal Allergies Seasonal Allergies: No Past Medical History Surgeries: Yes (CYST ON OVARY) Respiratory: Yes Sleep Apnea, COPD Currently Using CPAP: No Currently Using BIPAP: No Cardiac: No Neurological: Yes Reproductive Disorders: No Female Reproductive Disorders: Denies Sexually Transmitted Disease: No HIV/AIDS: No Genitourinary: No Gastrointestinal: No Musculoskeletal: Yes (ANKLE FRACTURE) Arthritis, Chronic Back Pain Endocrine: No HEENT: No Cancer: No Psychosocial: Yes (alcoholism) Sleep Difficulties, Anxiety, Suicide Attempts, Bipolar, Depression Integumentary: No Blood Disorders: No Family Medical History Alcoholism 19 FATHER G8 BROTHER G8 BROTHER G8 BROTHER G8 SISTER G8 SISTER FH: brain cancer G8 SISTER Neoplasm 19 MOTHER No Pertinent Family Hx Physical Exam Vital Signs Vital Signs - First Documented 09/09/18 19:03 Temp 97.3 Pulse 83 Resp 18 B/P (MAP) 125/76 (92) Pulse Ox 93 O2 Delivery Room Air Capillary Refill : Height, Weight, BMI Height: 5'0" Weight: 110lbs. 8.0oz. [id number]; 18.11 BMI Method:Stated General Appearance: thin HEENT: PERRL/EOMI, normal ENT inspection, TMs normal, pharynx normal, other (atraumatic head without Rogers sign or raccoon eyes) Neck: non-tender, full range of motion, supple, normal inspection Cardiovascular: normal peripheral pulses, regular rate, rhythm Respiratory: lungs clear, normal breath sounds, no respiratory distress, no accessory muscle use Peripheral Pulses: 2+ Radial Pulses (R), 2+ Radial Pulses (L) Gastrointestinal: non tender, soft Neurologic/Psychiatric: alert, other (oriented times person and place) Progress/Results/Core Measures Results/Orders Lab Results Laboratory Tests Test 09/09/18 19:07 Range/Units White Blood Count 13.1 H 4.3-11.0 10^3/uL Red Blood Count 4.36 4.35-5.85 10^6/uL Hemoglobin 14.6 11.5-16.0 G/DL Hematocrit 43 35-52 % Mean Corpuscular Volume 98 80-99 FL Mean Corpuscular Hemoglobin 34 25-34 PG Mean Corpuscular Hemoglobin Concent 34 32-36 G/DL Red Cell Distribution Width 12.8 10.0-14.5 % Platelet Count 89 L 130-400 10^3/uL Mean Platelet Volume 10.8 H 7.4-10.4 FL Neutrophils (%) (Auto) 54 42-75 % Lymphocytes (%) (Auto) 33 12-44 % Monocytes (%) (Auto) 11 0-12 % Eosinophils (%) (Auto) 2 0-10 % Basophils (%) (Auto) 1 0-10 % Neutrophils # (Auto) 7.0 1.8-7.8 X 10^3 Lymphocytes # (Auto) 4.4 H 1.0-4.0 X 10^3 Monocytes # (Auto) 1.4 H 0.0-1.0 X 10^3 Eosinophils # (Auto) 0.2 0.0-0.3 10^3/uL Basophils # (Auto) 0.1 0.0-0.1 10^3/uL Sodium Level 137 135-145 MMOL/L Potassium Level 3.9 3.6-5.0 MMOL/L Chloride Level 101 98-107 MMOL/L Carbon Dioxide Level 20 L 21-32 MMOL/L Anion Gap 16 H 5-14 MMOL/L Blood Urea Nitrogen 11 7-18 MG/DL Creatinine 0.61 0.60-1.30 MG/DL Estimat Glomerular Filtration Rate > 60 BUN/Creatinine Ratio 18 Glucose Level 83 70-105 MG/DL Calcium Level 9.4 8.5-10.1 MG/DL Corrected Calcium 8.5-10.1 MG/DL Magnesium Level 2.3 1.8-2.4 MG/DL Total Bilirubin 0.2 0.1-1.0 MG/DL Aspartate Amino Transf (AST/SGOT) 43 H 5-34 U/L Alanine Aminotransferase (ALT/SGPT) 33 0-55 U/L Alkaline Phosphatase 81 40-136 U/L Total Protein 7.7 6.4-8.2 GM/DL Albumin 4.8 H 3.2-4.5 GM/DL Serum Alcohol 361 *H <10 MG/DL My Orders Orders - TANNA LOPEZ Ct Head/Cervical Spine Wo (09/09/18 19:06) Alcohol (09/09/18 19:06) Cbc With Automated Diff (09/09/18 19:06) Comprehensive Metabolic Panel (09/09/18 19:06) Drug Screen Stat (Urine) (09/09/18 19:06) Magnesium (09/09/18 19:06) Ua Culture If Indicated (09/09/18 19:06) Folic Acid Tablet (Folic Acid Tablet) (09/09/18 19:15) Thiamine Tablet (Vitamin B-1 Tablet) (09/09/18 19:15) Ibuprofen Tablet (Motrin Tablet) (09/09/18 20:00) Ekg Tracing (09/09/18 19:58) Medications Given in ED Current Medications Medications Dose Ordered Sig/Maddi Route Start Time Stop Time Status Last Admin Dose Admin Folic Acid 1 mg ONCE ONCE PO 09/09/18 19:15 09/09/18 19:16 DC 09/09/18 19:43 1 MG Thiamine HCl 100 mg ONCE ONCE PO 09/09/18 19:15 09/09/18 19:16 DC 09/09/18 19:43 100 MG Vital Signs/I&O 09/09/18 19:03 Temp 97.3 Pulse 83 Resp 18 B/P (MAP) 125/76 (92) Pulse Ox 93 O2 Delivery Room Air Progress Progress Note #1: Time: 19:[address] without contrast of the head and C-spine, labs and urinalysis were then obtained. Progress Note #2: Time: 19:55 Progress Note Patient's asking for something for pain all over his been going on for years. 600 mg ibuprofen ordered. Incidental pulmonary nodule noted and will have her follow up outpatient for this. We have discussed alcohol dependence and she is pre-contemplative towards absence of this time. She did provide a urine sample but then threw her toilet paper in the hat. Patient denies any chest discomfort and does not stick around for any further workup saying she has to get home. Initial ECG Impression Date: Sep 09, 2018 Initial ECG Impression Time: 20:02 Initial ECG Rate: 81 Initial ECG Rhythm: Normal Sinus Initial ECG Intervals: Normal Initial ECG Impression: Normal, Nonspecific Changes Initial ECG Comparisson: Unchanged Comment Unchanged from previous EKG in May 2017. There is some mild respiratory artifact and a half block or less ST elevation in the anterior leads. Nothing clinically significant. Diagnostic Imaging Diagonstic Imaging: CT (noncontrast) Plain Films/CT/US/NM/MRI: c-spine, head Comments No acute intracranial hemorrhage, mass effect, midline shift or tumor. No calvarial fracture. No C-spine misalignment or fracture. NAME: MAMIE PIEDRA REC#: [id number] PT STATUS: REG ER : 1955 PHYSICIAN: TANNA LOPEZ MD ADMIT DATE: 09/09/18/ER Draft Date of Exam:09/09/18 CT HEAD/CERVICAL SPINE WO PROCEDURE: CT head and CT cervical spine without contrast. TECHNIQUE: Multiple contiguous axial images were obtained through the brain and cervical spine without the use of intravenous contrast. Sagittal and coronal reformations through the cervical spine were then performed. Auto Exposure Controls were utilized during the CT exam to meet ALARA standards for radiation dose reduction. DATE: September 09, 2018. COMPARISON: CT head and cervical spine, June 29, 2018. INDICATION: 63-year-old female, fall. Head and neck pain. FINDINGS: There are areas of low attenuation in the bilateral subcortical white matter which are nonspecific but most likely relate to changes of chronic small vessel ischemic disease. There is likely remote prior lacunar infarct in the left basal ganglia. There is no hydrocephalus. There is no abnormal extra-axial fluid collection. There is no evidence of acute intracranial hemorrhage. There is no mass effect or midline shift. There is no facet joint subluxation or subluxation. The facet joints are unremarkable in appearance. There is no asymmetric widening of the cervical disc spaces. There is no prominent prevertebral soft tissue swelling. There is minimal grade 1 retrolisthesis of C4 on C5 and also of C5 on C6. CT is limited for assessment of disc pathology as well as additional non-bony causes of pathology within the spinal canal. There is moderate disc height loss and posterior disc osteophyte complex at C3-C4 as well as disc degenerative changes at C4-C5 and C5-C6. There is no identified acute fracture of the cervical spine. There is a left upper lobe pulmonary nodule on axial image 63 which measures 8 mm in size. There are bilateral carotid vascular calcifications. IMPRESSION: 1. No identified acute intracranial abnormality. 2. Remote prior infarct in the left basal ganglia with mild changes of chronic small vessel ischemic disease. 3. No identified acute posttraumatic abnormality of the cervical spine. 4. There is an 8 mm left upper lobe pulmonary nodule. Dictated on workstation # [id number] Dict: 09/09/181935 Trans: 09/09/181947 PJE [id number] Interpreted by: AUTUMN CONROY MD Electronically signed by: Reviewed: Reviewed by Me Departure Impression Primary Impression: Fall Qualified Codes: W19.XXXA - Unspecified fall, initial encounter Additional Impressions: Pulmonary nodule, left Alcohol dependence Qualified Codes: F10.29 - Alcohol dependence with unspecified alcohol- induced disorder Disposition: 01 HOME, SELF-CARE Condition: Stable Departure-Patient Inst. Decision time for Depature: 19:55 Referrals: HUMA LOZOYA MD (PCP/Family) Primary Care Physician Patient Instructions: Alcohol Use - When Is Drinking a Problem?, Pulmonary Nodule Add. Discharge Instructions: Plan to follow up with your primary care doctor in the next 3-6 months for repeat imaging of the nodule seen incidentally on your CT scan. If you want help reducing or stopping your dependence on alcohol he can follow- up with your primary care doctor's office. Ibuprofen 600 mg every 6 hours or Tylenol 325 mg every 6 hours as needed for pain. You can also use heating pads, topical creams etc. TANNA LOPEZ Sep 09, 2018 19:11
--- OUTSIDE RECORDS SUMMARY | 2018-09-09 19:11 | XMS REPORT | Continuity of Care Document ---
Author Organization Unknown Address Unknown Phone Unavailable Allergies Active Description Code Type Severity Reaction Onset Reported/Identified Relationship to Patient Clinical Status Yes NO KNOWN DRUG ALLERGIES UNKNOWN NO KNOWN DRUG ALLERG Yes NO KNOWN DRUG ALLERGIES UNKNOWN UNKNOWN Yes No Known Drug Allergies [id number] Drug Allergy Unknown N/A 07/20/2012 Medications Medication Packaging Start Date Stop Date Route Dosage Sig NORMAL SALINE 1000CC IV BAG INJ 0.9 % (NS 1000CC IV BAG) ml 08/02/2018 08/02/2018 ONCE&1837 THIAMINE VIAL 2CC INJ 100 MG/CC (VIT B1 2CC VIAL) MG 08/02/2018 08/02/2018 ONCE&1841 Problems Date Dx Coded Attending Type Code [...] 465.9 Upper Respiratory Infection 04/01/2010 DWIGHT PATTERN CHECKER, APRIL A 305.1 NONDEPENDENT TOBACCO USE DISORDER 04/01/2010 DWIGHT PATTERN CHECKER, APRIL A 465.9 Upper Respiratory Infection 04/01/2010 DWIGHT PATTERN CHECKER, APRIL A 305.1 NONDEPENDENT TOBACCO USE DISORDER 04/01/2010 DWIGHT PATTERN CHECKER, APRIL A 465.9 Upper Respiratory Infection 04/01/2010 [...] LOZOYA MD 465.9 Upper Respiratory Infection 04/01/2010 PERICO SPRINGER APRNEY A 305.1 NONDEPENDENT TOBACCO USE DISORDER 04/01/2010 GIAN FAIRCHILD ADDIS A 465.9 Upper Respiratory Infection 04/01/2010 [...] LOZOYA MD 354.0 CARPAL TUNNEL SYNDROME 05/14/2010 DEVORA PINEDO, HUMA V72.31 [employer] Sprayer Exam, Routine 05/14/2010 BALDERRAMA DO, BERRY K 354.0 CARPAL TUNNEL SYNDROME 05/14/2010 BALDERRAMA DO, BERRY K V72.31 [employer] Sprayer Exam, Routine 05/14/2010 BALDERRAMA DO, BERRY K 354.0 CARPAL TUNNEL SYNDROME 05/14/2010 BALDERRAMA DO, BERRY K V72.31 [employer] Sprayer Exam, Routine 05/14/2010 HUMA LOZOYA MD 354.0 CARPAL TUNNEL SYNDROME 05/14/2010 HUMA LOZOYA MD V72.31 [employer] Sprayer Exam, Routine 05/14/2010 354.0 CARPAL TUNNEL SYNDROME 05/14/2010 V72.31 [employer] Sprayer Exam, Routine 05/14/2010 HUMA LOZOYA MD 354.0 CARPAL TUNNEL SYNDROME 05/14/2010 HUMA LOZOYA MD V72.31 [employer] Sprayer Exam, Routine 05/14/2010 DEVORA PINEDO, HUMA 354.0 CARPAL TUNNEL SYNDROME 05/14/2010 HUMA LOZOYA MD V72.31 [employer] Sprayer Exam, Routine 05/14/2010 HUMA LOZOYA MD 354.0 CARPAL TUNNEL SYNDROME 05/14/2010 HUMA LOZOYA MD V72.31 [employer] Sprayer Exam, Routine 05/14/2010 DEVORA PINEDO, HUMA 354.0 CARPAL TUNNEL SYNDROME 05/14/2010 HUMA LOZOYA MD V72.31 [employer] Sprayer Exam, Routine 05/14/2010 DEVORA PINEDO, HUMA 354.0 CARPAL TUNNEL SYNDROME 05/14/2010 HUMA LOZOYA MD V72.31 [employer] Sprayer Exam, Routine 05/14/2010 DWIGHT PATTERN CHECKER, APRIL A 354.0 CARPAL TUNNEL SYNDROME 05/14/2010 DWIGHT PATTERN CHECKERAPRIL Tanner A V72.31 [employer] Sprayer Exam, Routine 05/14/2010 DWIGHT PATTERN CHECKER, APRIL A 354.0 CARPAL TUNNEL SYNDROME 05/14/2010 DWIGHT PATTERN CHECKER, APRIL A V72.31 [employer] Sprayer Exam, Routine 05/14/2010 BALDERRAMA DO, BERRY K 354.0 CARPAL TUNNEL SYNDROME 05/14/2010 BALDERRAMA DO, BERRY K V72.31 [employer] Sprayer Exam, Routine 05/14/2010 BALDERRAMA DO, BERRY K 354.0 CARPAL TUNNEL SYNDROME 05/14/2010 BALDERRAMA DO, BERRY K V72.31 [employer] Sprayer Exam, Routine 05/14/2010 DEVORA PINEDO, HUMA 354.0 CARPAL TUNNEL SYNDROME 05/14/2010 HUMA LOZOYA MD V72.31 [employer] Sprayer Exam, Routine 05/14/2010 DEVORA PINEDO, HUMA 354.0 CARPAL TUNNEL SYNDROME 05/14/2010 HUMA LOZOYA MD V72.31 [employer] Sprayer Exam, Routine 05/14/2010 ADDIS SPRINGER APRN 354.0 CARPAL TUNNEL SYNDROME 05/14/2010 ADDIS SPRINGER APRN V72.31 [employer] Sprayer Exam, Routine 05/14/2010 DEVORA PINEDO, HUMA 354.0 CARPAL TUNNEL SYNDROME 05/14/2010 HUMA LOZOYA MD V72.31 [employer] Sprayer Exam, Routine 05/14/2010 DEVORA PINEDO, HUMA 354.0 CARPAL TUNNEL SYNDROME 05/14/2010 HUMA LOZOYA MD V72.31 [employer] Sprayer Exam, Routine 05/14/2010 354.0 CARPAL TUNNEL SYNDROME 05/14/2010 V72.31 [employer] Sprayer Exam, Routine 05/14/2010 HUMA LOZOYA MD 354.0 CARPAL TUNNEL SYNDROME 05/14/2010 HUMA LOZOYA MD V72.31 [employer] Sprayer Exam, Routine 06/09/2010 HUMA LOZOYA MD 381.81 [...] Pain In Joint Involving Forearm 06/16/2010 BERRY BALDERRMAA DO 71Olivia.43 Pain In Joint Involving Forearm 06/16/2010 HUMA LOZOYA MD.43 Pain In Joint Involving Forearm 06/16/2010 HUMA LOZOYA MD 719.43 Pain In Joint Involving Forearm 06/16/2010 ADDIS SPRINGER APRN 719.43 Pain In Joint Involving Forearm 06/16/2010 HUMA LOZOYA MD 719.43 Pain In Joint Involving Forearm 06/16/2010 HUMA LOZOYA MD 719.43 Pain In Joint Involving Forearm 06/16/2010 719.43 Pain In Joint Involving Forearm 06/16/2010 HUMA LOZOYA MD 719.43 Pain In Joint Involving Forearm 08/12/2010 HUMA LOZOYA MD 303.03 Acute Alcoholic Intoxication In Alcoholism In Remission 08/12/2010 HUMA LOZOYA MD 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 08/12/2010 HUMA LOZOYA MD 782.3 Edema 08/12/2010 HUMA LOZOYA MD 786.02 Orthopnea 08/12/2010 TACOS LEDESMA BERRY K 303.03 Acute Alcoholic Intoxication In Alcoholism In Remission 08/12/2010 TACOS LEDESMA BERRY K 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 08/12/2010 TACOS LEDESMA BERRY K 782.3 Edema 08/12/2010 TACOS LEDESMA BERRY K 786.02 Orthopnea 08/12/2010 TACOS LEDESMA BERRY K 303.03 Acute Alcoholic Intoxication In Alcoholism In Remission 08/12/2010 JEOVANNY BALDERRAMA DOA K 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 08/12/2010 TACOS LEDESMA BERRY K 782.3 Edema 08/12/2010 TACOS LEDESMA BERRY K 786.02 Orthopnea 08/12/2010 HUMA LOZOYA [...] HUMA LOZOYA MD 786.02 Orthopnea 08/12/2010 DWIGHT FAIRCHILD APRIL A 303.03 Acute Alcoholic Intoxication In Alcoholism In Remission 08/12/2010 JI QUINTANILLA APRNIDI A 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 08/12/2010 DWIGHT FAIRCHILD APRIL A 782.3 Edema 08/12/2010 DWIGHT FAIRCHILD APRIL A 786.02 Orthopnea 08/12/2010 JI QUINTANILLA APRNIDI A 303.03 Acute Alcoholic Intoxication In Alcoholism In Remission 08/12/2010 DWIGHTLIANNE FAIRCHILD APRIL A 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 08/12/2010 DWIGHT APRN, APRIL A 782.3 Edema 08/12/2010 DWIGHT PATTERN CHECKER, APRIL A 786.02 Orthopnea 08/12/2010 BALDERRAMA DO, [...] Alcoholism In Remission 08/12/2010 ADDIS SPRINGER APRN A 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 08/12/2010 GIAN FAIRCHILD ADDIS A 782.3 Edema 08/12/2010 GIAN FAIRCHILD ADDIS A 786.02 Orthopnea 08/12/2010 HUMA LOZOYA MD 303.03 [...] ABNORMALITY OF RED BLOOD CELLS 08/15/2010 BALDERRAMA DOBERRY K 790.09 OTHER ABNORMALITY OF RED BLOOD CELLS 08/15/2010 BALDERRAMA DOBERRY K 790.09 OTHER ABNORMALITY OF RED BLOOD [...] RED BLOOD CELLS 08/15/2010 APRIL QUINTANILLA APRN 790.09 OTHER ABNORMALITY OF RED BLOOD CELLS 08/15/2010 APRIL QUINTANILLA APRN A 790.09 OTHER ABNORMALITY OF RED BLOOD CELLS 08/15/2010 BALDERRAMA DOJOEVANNYA K 790.09 OTHER ABNORMALITY OF RED BLOOD CELLS 08/15/2010 BALDERRAMA DO, BERRY K 790.09 OTHER ABNORMALITY OF RED BLOOD CELLS 08/15/2010 HMUA LOZOYA MD 790.09 OTHER ABNORMALITY OF RED BLOOD CELLS 08/15/2010 HUMA LOZOYA MD 790.09 OTHER ABNORMALITY OF RED BLOOD CELLS 08/15/2010 ADDIS SPRINGER APRN A 790.09 OTHER ABNORMALITY OF RED BLOOD CELLS 08/15/2010 HUMA LOZOYA MD 790.09 OTHER ABNORMALITY OF RED BLOOD CELLS 08/15/2010 HUMA LOZOYA MD 790.09 OTHER ABNORMALITY OF RED BLOOD CELLS 08/15/2010 790.09 OTHER ABNORMALITY OF RED BLOOD CELLS 08/15/2010 HUMA LOZOYA MD 790.09 OTHER ABNORMALITY OF RED BLOOD CELLS 08/20/2010 HUMA LOZOYA MD 300.00 ANXIETY STATE UNSPECIFIED 08/20/2010 BALDERRAMA DO BERRY K 300.00 ANXIETY STATE UNSPECIFIED 08/20/2010 BALDERRAMA DO, BERRY K 300.00 ANXIETY STATE UNSPECIFIED 08/20/2010 HUMA LOZOYA MD 300.00 ANXIETY STATE UNSPECIFIED 08/20/2010 300.00 ANXIETY STATE UNSPECIFIED 08/20/2010 HUMA LOOZYA MD 300.00 ANXIETY STATE UNSPECIFIED 08/20/2010 HUMA LOZOYA MD 300.00 ANXIETY STATE UNSPECIFIED 08/20/2010 HUMA LOZOYA MD 300.00 ANXIETY STATE UNSPECIFIED 08/20/2010 HUMA LOZOYA MD 300.00 ANXIETY STATE UNSPECIFIED 08/20/2010 HUMA LOZOYA MD 300.00 ANXIETY STATE UNSPECIFIED 08/20/2010 JI QUINTANILLA APRNIDI A 300.00 ANXIETY STATE UNSPECIFIED 08/20/2010 JI QUINTANILLA APRNIDI A 300.00 ANXIETY STATE UNSPECIFIED 08/20/2010 BALDERRAMA DO BERRY K 300.00 ANXIETY STATE UNSPECIFIED 08/20/2010 BALDERRAMA DO BERRY K 300.00 ANXIETY STATE UNSPECIFIED 08/20/2010 HUMA LOZOYA MD 300.00 ANXIETY STATE UNSPECIFIED 08/20/2010 HUMA LOZOYA MD 300.00 ANXIETY STATE UNSPECIFIED 08/20/2010 ADDIS SPRINGER APRN 300.00 ANXIETY STATE UNSPECIFIED 08/20/2010 DEVORA PINEDO, HUMA 300.00 ANXIETY STATE UNSPECIFIED 08/20/2010 DEVORA PINEDO, HUMA 300.00 ANXIETY STATE UNSPECIFIED 08/20/2010 300.00 ANXIETY STATE UNSPECIFIED 08/20/2010 DEVORA PINEDO, HUMA 300.00 ANXIETY STATE UNSPECIFIED 12/11/2010 DEVORA PINEDO, HUMA 724.5 BACKACHE UNSPECIFIED 12/11/2010 BALDERRAMA DO, BERRY [...] DEVORA PINEDO, HUMA 724.5 BACKACHE UNSPECIFIED 12/11/2010 DWIGHTAPRIL ABDALLA APRN A 724.5 BACKACHE UNSPECIFIED 12/11/2010 JI QUINTANILLA APRNIDI A 724.5 BACKACHE UNSPECIFIED 12/11/2010 BALDERRAMA DO, [...] DEVORA PINEDO, HUMA 724.5 BACKACHE UNSPECIFIED 05/05/2011 DEVORA PINEDO, HUMA 780.79 OTHER MALAISE AND FATIGUE 05/05/2011 BERRY [...] MD 780.79 OTHER MALAISE AND FATIGUE 05/05/2011 APRIL [...] AND TOXIC REACTIONS 10/02/2011 APRIL QUINTANILLA APRN E905.1 VENOMOUS SPIDERS CAUSING POISONING AND TOXIC REACTIONS 10/02/2011 APRIL QUINTANILLA APRN E905.1 VENOMOUS SPIDERS CAUSING POISONING AND [...] V76.2 CERVICAL CANCER SCREENING (PAP SMEAR) 02/19/2012 DEVORA PINEDO, HUMA 627.2 MENOPAUSAL SX 02/19/2012 HUMA LOZOYA MD [...] CERVICAL CANCER SCREENING (PAP SMEAR) 02/19/2012 TACOS BERRY LEDESMA 627.2 MENOPAUSAL SX 02/19/2012 TACOS LEDESMA BERRY K V76.10 BREAST CANCER SCREENING 02/19/2012 TACOS LEDESMA BERRY K V76.2 CERVICAL CANCER SCREENING (PAP SMEAR) 02/19/2012 TACOS LEDESMA BERRY K 627.2 MENOPAUSAL SX 02/19/2012 TACOS LEDESMA, BERRY K V76.10 BREAST CANCER SCREENING 02/19/2012 TACOS LEDESMA, BERRY K V76.2 CERVICAL CANCER SCREENING (PAP SMEAR) 02/19/2012 HUMA LZOOYA MD.2 MENOPAUSAL SX 02/19/2012 HUMA LOZOYA MD6.10 BREAST CANCER SCREENING 02/19/2012 HUMA LOZOYA MD6.2 CERVICAL CANCER SCREENING (PAP SMEAR) 02/19/2012 HUMA LOOZYA MD.2 MENOPAUSAL SX 02/19/2012 HUMA LOZOYA MD V76.10 BREAST CANCER SCREENING 02/19/2012 HUMA LOZOYA MD6.2 CERVICAL CANCER SCREENING (PAP SMEAR) 02/19/2012 ADDIS SPRINGER APRN 627.2 MENOPAUSAL SX 02/19/2012 ADDIS SPRINGER APRN V76.10 BREAST CANCER SCREENING 02/19/2012 ADDIS SPRINGER APRN V76.2 CERVICAL CANCER SCREENING (PAP SMEAR) 02/19/2012 HUMA LOZOYA MD.2 MENOPAUSAL SX 02/19/2012 HUMA LOZOYA MD6.10 BREAST CANCER SCREENING 02/19/2012 HUMA LOZOYA MD6.2 CERVICAL CANCER SCREENING (PAP SMEAR) 02/19/2012 HUMA LOZOYA MD.2 MENOPAUSAL SX 02/19/2012 HUMA LOZOYA MD6.10 BREAST CANCER SCREENING 02/19/2012 HUMA LOZOYA MD6.2 CERVICAL CANCER SCREENING (PAP SMEAR) 02/19/2012 HUMA LOZOYA MD 627.2 MENOPAUSAL SX 02/19/2012 HUMA LOZOYA MD6.10 BREAST CANCER SCREENING 02/19/2012 HUMA LOZOYA MD6.2 CERVICAL CANCER SCREENING (PAP SMEAR) 03/28/2012 HUMA [...] MD 272.4 OTHER AND UNSPECIFIED HYPERLIPIDEMIA 03/28/2012 JI QUINTANILLA APRNIDI A 272.4 OTHER AND UNSPECIFIED HYPERLIPIDEMIA 03/28/2012 JI QUINTANILLA APRNIDI A 272.4 OTHER AND UNSPECIFIED HYPERLIPIDEMIA 03/28/2012 BALDERRAMA DO BERRY K 272.4 OTHER AND UNSPECIFIED HYPERLIPIDEMIA 03/28/2012 BALDERRAMA DO BERRY K 272.4 OTHER AND UNSPECIFIED HYPERLIPIDEMIA 03/28/2012 HUMA LOZOYA MD 272.4 OTHER AND UNSPECIFIED HYPERLIPIDEMIA 03/28/2012 HUMA LOZOYA MD 272.4 OTHER AND UNSPECIFIED HYPERLIPIDEMIA 03/28/2012 ADDIS SPRINGER APRN A 272.4 OTHER AND UNSPECIFIED HYPERLIPIDEMIA 03/28/2012 HUMA [...] SPASM OF MUSCLE 09/29/2012 APRIL QUINTANILLA APRN A 728.85 SPASM OF MUSCLE 09/29/2012 APRIL QUINTANILLA APRN A 728.85 SPASM OF MUSCLE 09/29/2012 BERRY BALDERRAMA DO K 728.85 SPASM OF MUSCLE 09/29/2012 BERRY BALDERRAMA DO K 728.85 SPASM OF MUSCLE 09/29/2012 HUMA LOZOYA [...] MD.41 PAIN IN JOINT INVOLVING SHOULDER REGION 12/19/2012 ADDIS SPRINGER APRN 719.41 PAIN IN JOINT INVOLVING SHOULDER REGION 12/19/2012 HUMA LOZOYA MD9.41 PAIN IN JOINT INVOLVING SHOULDER REGION 12/19/2012 HUMA LOZOYA MD9.41 PAIN IN JOINT INVOLVING SHOULDER REGION 12/19/2012 DEVORA PINEDO, HUMA 719.41 PAIN IN JOINT INVOLVING SHOULDER REGION 01/18/2013 HUMA LOZOYA MD V58.69 MEDICATION HIGH RISK 01/18/2013 HUMA LOZOYA MD V58.69 MEDICATION HIGH RISK 01/18/2013 DEVORA PINEDO, HUMA V58.69 MEDICATION HIGH RISK 01/18/2013 APRIL QUINTANILLA APRN A V58.69 MEDICATION HIGH RISK 01/18/2013 APRIL QUINTANILLA APRN A V58.69 MEDICATION HIGH RISK 01/18/2013 JEOVANNY BALDERRAMA DOA K V58.69 MEDICATION HIGH RISK 01/18/2013 TACOS LEDESMA BERRY K V58.69 MEDICATION HIGH RISK 01/18/2013 HUMA LOZOYA MD V58.69 MEDICATION HIGH RISK 01/18/2013 HUMA LOZOYA MD V58.69 MEDICATION HIGH RISK 01/18/2013 ADDIS SPRINGER APRN V58.69 MEDICATION HIGH RISK 01/18/2013 HUMA LOZOYA MD V58.69 MEDICATION HIGH RISK 01/18/2013 HUMA LOZOYA MD V58.69 MEDICATION HIGH RISK 01/18/2013 HUMA LOZOYA MD V58.69 MEDICATION HIGH RISK 02/15/2013 HUMA LOZOYA MD V76.11 SCREENING MAMMOGRAM FOR HIGH-RISK PATIENT 02/15/2013 HUMA LOZOYA MD V76.11 SCREENING MAMMOGRAM FOR HIGH-RISK PATIENT 02/15/2013 HUMA LOZOYA MD V76.11 SCREENING MAMMOGRAM FOR HIGH-RISK PATIENT 02/15/2013 APRIL QUINTANILLA APRN A V76.11 SCREENING MAMMOGRAM FOR HIGH-RISK PATIENT 02/15/2013 APRIL QUINTANILLA APRN A V76.11 SCREENING MAMMOGRAM FOR HIGH-RISK PATIENT 02/15/2013 JEOVANNY BALDERRAMA DOA K V76.11 SCREENING MAMMOGRAM FOR HIGH-RISK PATIENT 02/15/2013 JEOVANNY BALDERRAMA DOA K V76.11 SCREENING MAMMOGRAM FOR HIGH-RISK PATIENT [...] SCREENING MAMMOGRAM FOR HIGH-RISK PATIENT 04/17/2013 DWIGHT PATTERN CHECKER, APRIL A V65.42 COUNSELING - SMOKING CESSATION 04/17/2013 DWIGHTAPRIL Tanner APRN A V65.49 OTHER SPECIFIED COUNSELING 04/17/2013 DWIGHT PATTERN CHECKER, APRIL A V76.10 BREAST CANCER SCREENING 04/17/2013 DWIGHT ZEEFlores APRIL A V76.51 COLON CANCER SCREENING 04/17/2013 DWIGHTJI Tanner APRNIDI A V82.81 SPECIAL SCREENING FOR OSTEOPOROSIS 04/17/2013 DWIGHT PATTERN CHECKERJI TannerIDI A V65.42 COUNSELING - SMOKING CESSATION 04/17/2013 DWIGHTJI Tanner APRNIDI A V65.49 OTHER SPECIFIED COUNSELING 04/17/2013 DWIGHTFlores FAIRCHILD APRIL A V76.10 BREAST CANCER SCREENING 04/17/2013 DWIGHT ZEEFlores APRIL A V76.51 COLON CANCER SCREENING 04/17/2013 DWIGHT ZEEFlores APRIL A V82.81 SPECIAL SCREENING FOR OSTEOPOROSIS 04/17/2013 BALDERRAMA DO, BERRY K V65.42 COUNSELING - SMOKING CESSATION 04/17/2013 BALDERRAMA DO, BERRY K V65.49 OTHER SPECIFIED COUNSELING 04/17/2013 BALDERRAMA DO, BERRY K V76.10 BREAST CANCER SCREENING 04/17/2013 BALDERRAMA DO, BERRY K V76.51 COLON CANCER SCREENING 04/17/2013 BALDERRAMA DO, BERRY K V82.81 SPECIAL SCREENING FOR OSTEOPOROSIS 04/17/2013 BALDERRAMA DO, BERRY K V65.42 COUNSELING - SMOKING CESSATION 04/17/2013 BALDERRAMA DO, BERRY K V65.49 OTHER SPECIFIED COUNSELING 04/17/2013 [...] SPRINGER APRN V65.49 OTHER SPECIFIED COUNSELING 04/17/2013 GIAN PATTERN CHECKERADDIS Tanner V76.10 BREAST CANCER SCREENING 04/17/2013 ADDIS SPRINGER APRN V76.51 COLON CANCER SCREENING 04/17/2013 ADDIS SPRINGER APRN V82.81 SPECIAL SCREENING FOR OSTEOPOROSIS 04/17/2013 HUMA LOZOYA MD V65.42 COUNSELING - SMOKING CESSATION 04/17/2013 HUMA LOZOYA MD V65.49 OTHER SPECIFIED COUNSELING 04/17/2013 HUMA LOZOYA MD V76.10 BREAST CANCER SCREENING 04/17/2013 HUMA LOZOYA MD V76.51 COLON CANCER SCREENING 04/17/2013 HUMA LOZOAY MD V82.81 SPECIAL SCREENING FOR OSTEOPOROSIS 04/17/2013 [...] STAIRS OR STEPS 06/02/2013 BERRY BALDERRAMA DO K 723.1 CERVICALGIA 06/02/2013 BERRY BALDERRAMA DO K E880.9 ACCIDENTAL FALL ON OR FROM OTHER [...] DO Ot 305.1 TOBACCO USE DISORDER 10/03/2013 JEOVANNY BALDERRAMA DOA K Ot 311 DEPRESSIVE DISORDER NEC 10/03/2013 BERRY BALDERRAMA DO K Ot 312.89 OTHER SPECIFIED CONDUCT DISORDER, NEC 10/03/2013 BERRY BALDERRAMA DO K Ot 338.29 OTHER CHRONIC PAIN 10/03/2013 BERRY BALDERRAMA DO Ot 784.0 HEADACHE 10/03/2013 BERRY BALDERRAMA DO Ot V03.82 PROPHYLACTIC VACC AGAINST STREPTOCOCCUS 10/03/2013 JEOVANNY BALDERRAMA DOA K Ot V62.84 SUICIDAL IDEATION 10/03/2013 JEOVANNY BALDERRAMA DOA K Ot V62.85 HOMICIDAL IDEATION 11/20/2013 YANN PINEDO, [...] MD Ot V76.12 03/16/2014 APRIL QUINTANILLA PATTERN CHECKER Ot 733.90 03/16/2014 APRIL QUINTANILLA A PATTERN CHECKER Ot V65.42 03/16/2014 APRIL QUINTANILLA A PATTERN CHECKER Ot V65.49 03/16/2014 APRIL QUINTANILLA A PATTERN CHECKER Ot V76.12 03/16/2014 APRIL QUINTANILLA A PATTERN CHECKER Ot V76.51 03/16/2014 APRIL QUINTANILLA PATTERN CHECKER Ot V82.81 03/19/2014 HUMA LOZOYA MD V76.10 BREAST CANCER SCREENING 05/04/2015 FINESSE MOY MD, Ot A41.9 SEPSIS, UNSPECIFIED ORGANISM 05/04/2015 FINESSE [...] G47.30 SLEEP APNEA, UNSPECIFIED 05/04/2015 FINESSE MOY MD, Ot J18.9 PNEUMONIA, UNSPECIFIED ORGANISM 05/04/2015 FINESSE MOY MD, Ot J44.9 CHRONIC OBSTRUCTIVE PULMONARY DISEASE, U 05/04/2015 FINESSE MOY MD, Ot R41.82 ALTERED MENTAL STATUS, UNSPECIFIED 05/04/2015 FINESSE MOY MD Ot Z91.14 PATIENT'S OTHER NONCOMPLIANCE WITH MEDIC 03/03/2016 LI LOPEZ APRN Ot J44.9 CHRONIC OBSTRUCTIVE PULMONARY DISEASE, U 03/03/2016 LI LOPEZ APRN Ot S82.401A [facility] OF RIGHT FIBULA, 03/03/2016 LI LOPEZ APRN Ot S99.911A UNSPECIFIED INJURY OF RIGHT ANKLE, INITI 03/03/2016 LI LOPEZ APRN Ot X58.XXXA EXPOSURE TO OTHER SPECIFIED FACTORS, INI 03/03/2016 LI LOPEZ APRN Ot Y92.[address] IN [facility] [place] NON-INSTITUT (PRIVATE 03/03/2016 LI LOPEZ APRN Ot Y99.8 OTHER EXTERNAL CAUSE STATUS 03/03/2016 LI LOPEZ APRN Ot Z79.82 [facility] (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 OF ASPIRIN 03/03/2016 LI LPOEZ APRN Ot Z79.899 OTHER [facility] (CURRENT) DRUG THERAPY 03/03/2016 Ot V76.12 OTH SCREEN MAMMO- MALIGN NEOPLASM OF ETIENNE 03/03/2016 DEVORA PINEDO, HUMA Sparks Ot V76.12 OTH SCREEN MAMMO-MALIGN NEOPLASM OF ETIENNE 03/03/2016 APRIL QUINTANILLA PATTERN CHECKER Ot 733.90 BONE CARTILAGE DIS NOS 03/03/2016 APRIL QUINTANILLA PATTERN CHECKER Ot V65.42 COUNSELING ON SUBSTANCE USE AND ABUSE 03/03/2016 JI QUINTANILLAIDI Jp PATTERN CHECKER Ot V65.49 OTHER SPECIFIED COUNSELING 03/03/2016 APRIL QUINTANILLA PATTERN CHECKER Ot V76.12 OTH SCREEN MAMMO-MALIGN NEOPLASM OF ETIENNE 03/03/2016 APRIL QUINTANILLA PATTERN CHECKER Ot V76.51 SCREEN MAL NEOP-COLON 03/03/2016 APRIL QUINATNILLA PATTERN CHECKER Ot V82.81 SCREENING FOR OSTEOPOROSIS 03/03/2016 Ot V76.12 OTH SCREEN MAMMO- MALIGN NEOPLASM OF ETIENNE 03/03/2016 DEVORA PINEDO, HUMA Sparks Ot V76.12 OTH SCREEN MAMMO-MALIGN NEOPLASM OF ETIENNE 03/03/2016 APRIL QUINTANILLA A PATTERN CHECKER Ot 733.90 BONE CARTILAGE DIS NOS 03/03/2016 APRIL QUINTANILLA PATTERN CHECKER Ot V65.42 COUNSELING ON SUBSTANCE USE AND ABUSE 03/03/2016 APRIL QUINTANILLA PATTERN CHECKER Ot V65.49 OTHER SPECIFIED COUNSELING 03/03/2016 APRIL QUINTANILLA PATTERN CHECKER Ot V76.12 OTH SCREEN MAMMO-MALIGN NEOPLASM OF ETIENNE 03/03/2016 JI QUINTANILLAIDI Jp PATTERN CHECKER Ot V76.51 SCREEN MAL NEOP-COLON 03/03/2016 APRIL QUINTANILLA PATTERN CHECKER Ot V82.81 SCREENING FOR OSTEOPOROSIS 03/04/2016 LI LOPEZ APRN Ot J44.9 CHRONIC OBSTRUCTIVE PULMONARY DISEASE, U 03/04/2016 LI LOPEZ APRN Ot S82.401A [facility] FRACTURE OF SHAFT OF RIGHT FIBULA, 03/04/2016 LI LOPEZ APRN Ot S99.911A UNSPECIFIED INJURY OF RIGHT ANKLE, INITI 03/04/2016 LI LOPEZ APRN Ot X58.XXXA EXPOSURE TO OTHER SPECIFIED FACTORS, INI 03/04/2016 LI LOPEZ APRN Ot Y92.[address] IN [facility] [place] NON-INSTITUT (PRIVATE 03/04/2016 LI LOPEZ APRN Ot Y99.8 OTHER EXTERNAL CAUSE STATUS 03/04/2016 LI LOPEZ APRN Ot 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 03/04/2016 LI LOPEZ APRN Ot Z79.899 OTHER [facility] (CURRENT) DRUG THERAPY 03/05/2016 LI LOPEZ APRN Ot J44.9 CHRONIC OBSTRUCTIVE PULMONARY DISEASE, U 03/05/2016 LI LOPEZ APRN Ot S82.401A [facility] FRACTURE OF SHAFT OF RIGHT FIBULA, 03/05/2016 LI LOPEZ APRN Ot S99.911A UNSPECIFIED INJURY OF RIGHT ANKLE, INITI 03/05/2016 LI LOPEZ APRN Ot X58.XXXA EXPOSURE TO OTHER SPECIFIED FACTORS, INI 03/05/2016 LI LOPEZ APRN Ot Y92.[address] [facility] [place] [facility] 03/05/2016 LI LOPEZ APRN Ot Y99.8 OTHER EXTERNAL CAUSE STATUS 03/05/2016 LI LOPEZ APRN Ot 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 03/05/2016 LI LOPEZ APRN Ot Z79.899 OTHER FPC (CURRENT) DRUG THERAPY 07/11/2016 MELISSA GARCIA Ot F10.129 ALCOHOL ABUSE WITH INTOXICATION, UNSPECI 07/11/2016 MELISSA GARCIA Ot F17.210 NICOTINE DEPENDENCE, CIGARETTES, UNCOMPL 07/11/2016 MELISSA GARCIA Ot J44.9 CHRONIC OBSTRUCTIVE PULMONARY DISEASE, U 07/11/2016 MELISSA GARCIA Ot Y90.6 BLOOD ALCOHOL LEVEL OF 120-199 MG/100 ML 07/11/2016 MELISSA GARCIA Ot 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 07/11/2016 MELISSA GARCIA Ot Z79.899 OTHER RESEARCH CENTER DIRECTOR (CURRENT) DRUG THERAPY 04/06/2017 RIK PINEDO, MALIA Atkins Ot F10.129 ALCOHOL ABUSE WITH INTOXICATION, UNSPECI 04/06/2017 RIK PINEDO, MALIA T Ot F12.10 CANNABIS ABUSE, UNCOMPLICATED 04/06/2017 RIK PINEDO, MALIA Atkins Ot F14.10 COCAINE ABUSE, UNCOMPLICATED 04/06/2017 RIK PINEDO, MALIA T Ot F17.210 NICOTINE DEPENDENCE, CIGARETTES, UNCOMPL 04/06/2017 MALIA JOLLY MD Ot F31.9 BIPOLAR DISORDER, UNSPECIFIED 04/06/2017 MALIA JOLLY MD, Ot F41.9 ANXIETY DISORDER, UNSPECIFIED 04/06/2017 MALIA JOLLY MD Ot G47.30 SLEEP APNEA, UNSPECIFIED 04/06/2017 MALIA JOLLY MD Ot J44.9 CHRONIC OBSTRUCTIVE PULMONARY DISEASE, U 04/06/2017 MALIA JOLLY MD Ot M25.472 EFFUSION, LEFT ANKLE 04/06/2017 MALIA JOLLY MD Ot S82.831A OTH FRACTURE OF UPPER AND LOWER END OF R 04/06/2017 MALIA JOLLY MD Ot 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 04/06/2017 MALIA JOLLY MD Ot Z80.8 FAMILY HISTORY OF MALIGNANT NEOPLASM OF 04/06/2017 MALIA JOLLY MD, Ot Z91.5 PERSONAL HISTORY OF SELF-HARM 04/06/2017 [...] FACTORS, INI 04/06/2017 MELISSA GARCIA Ot 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 04/06/2017 MELISSA GARCIA Ot Z80.8 FAMILY HISTORY OF MALIGNANT NEOPLASM OF 04/06/2017 MELISSA GARCIA Ot Z91.5 PERSONAL HISTORY OF SELF-HARM 04/08/2017 RIK PINEDO, MALIA Atkins Ot F10.129 ALCOHOL ABUSE WITH INTOXICATION, UNSPECI [...] R 04/08/2017 MALIA JOLLY MD Ot Z79.82 FPC (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 OF ASPIRIN 04/08/2017 MALIA JOLLY [...] FACTORS, INI 04/08/2017 MELISSA GARCIA Ot 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 04/08/2017 MELISSA GARCIA [...] OTH SCREEN MAMMO-MALIGN NEOPLASM OF ETIENNE 05/19/2017 APRIL QUINTANILLA PATTERN CHECKER Ot 733.90 BONE CARTILAGE DIS NOS 05/19/2017 APRIL QUINTANILLA PATTERN CHECKER Ot V65.42 COUNSELING ON SUBSTANCE USE AND ABUSE 05/19/2017 APRIL QUINTANILLA PATTERN CHECKER Ot V65.49 OTHER SPECIFIED COUNSELING 05/19/2017 APRIL QUINTANILLA PATTERN CHECKER Ot V76.12 OTH SCREEN MAMMO-MALIGN NEOPLASM OF ETIENNE 05/19/2017 APRIL QUINTANILLA PATTERN CHECKER Ot V76.51 SCREEN MAL NEOP-COLON 05/19/2017 APRIL QUINTANILLA PATTERN CHECKER Ot V82.81 SCREENING FOR OSTEOPOROSIS 05/19/2017 MELISSA GARCIA Ot R06.02 SHORTNESS OF BREATH 05/19/2017 Ot V76.12 OTH SCREEN MAMMO- MALIGN NEOPLASM OF ETIENNE 05/19/2017 HUMA LOZOYA MD Ot V76.12 OTH SCREEN MAMMO-MALIGN NEOPLASM OF ETIENNE 05/19/2017 APRIL QUINTANILLA PATTERN CHECKER Ot 733.90 BONE CARTILAGE DIS NOS 05/19/2017 APRIL QUINTANILLA PATTERN CHECKER Ot V65.42 COUNSELING ON SUBSTANCE USE AND ABUSE 05/19/2017 APRIL QUINTANILLA PATTERN CHECKER Ot V65.49 OTHER SPECIFIED COUNSELING 05/19/2017 APRIL QUINTANILLA PATTERN CHECKER Ot V76.12 OTH SCREEN MAMMO-MALIGN NEOPLASM OF ETIENNE 05/19/2017 JI QUINTANILLAIDI A PATTERN CHECKER Ot V76.51 SCREEN MAL NEOP-COLON 05/19/2017 JI QUINTANILLAIDI A PATTERN CHECKER Ot V82.81 SCREENING FOR OSTEOPOROSIS 05/19/2017 MELISSA GARCIA Ot R06.02 SHORTNESS OF BREATH 05/20/2017 Ot V76.12 OTH SCREEN MAMMO- MALIGN NEOPLASM OF ETIENNE 05/20/2017 DEVORA PINEDO, HUMA Sparks Ot V76.12 OTH SCREEN MAMMO-MALIGN NEOPLASM OF ETIENNE 05/20/2017 APRIL QUINTANILLA A PATTERN CHECKER Ot 733.90 BONE CARTILAGE DIS NOS 05/20/2017 APRIL QUINTANILLA PATTERN CHECKER Ot V65.42 COUNSELING ON SUBSTANCE USE AND ABUSE 05/20/2017 JI QUINTANILLAIDI A PATTERN CHECKER Ot V65.49 OTHER SPECIFIED COUNSELING 05/20/2017 JI QUINTANILLAIDI Jp PATTERN CHECKER Ot V76.12 OTH SCREEN MAMMO-MALIGN NEOPLASM OF ETIENNE 05/20/2017 APRIL QUINTANILLA PATTERN CHECKER Ot V76.51 SCREEN MAL NEOP-COLON 05/20/2017 APRIL QUINTANILLA PATTERN CHECKER Ot V82.81 SCREENING FOR OSTEOPOROSIS 05/21/2017 ASHLYN PINEDO, HONEY Donaldson Ot M79.609 PAIN IN UNSPECIFIED LIMB 05/21/2017 ASHLYN PINEDO, HONEY Donaldson Ot R06.02 SHORTNESS OF BREATH 05/21/2017 ASHLYN PINEDO, HONEY Donaldson Ot W19.XXXA UNSPECIFIED FALL, INITIAL ENCOUNTER 05/21/2017 [...] BREATH 05/21/2017 LI LOPEZ APRN Ot Z79.82 FPC (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 OF ASPIRIN 05/21/2017 LI LOPEZ APRN Ot Z80.8 FAMILY HISTORY OF MALIGNANT NEOPLASM OF 05/21/2017 LI LOPEZ APRN Ot Z87.448 PERSONAL HISTORY OF OTHER DISEASES OF UR 05/21/2017 LI LOPEZ APRN Ot Z91.5 PERSONAL HISTORY OF SELF-HARM 05/24/2017 LI LOPEZ APRN Ot F10.20 ALCOHOL DEPENDENCE, UNCOMPLICATED 05/24/2017 IL LOPEZ APRN Ot F31.9 BIPOLAR DISORDER, UNSPECIFIED 05/24/2017 LI LOPEZ APRN Ot F41.9 ANXIETY DISORDER, UNSPECIFIED 05/24/2017 LI LOPEZ APRN Ot G47.30 SLEEP APNEA, UNSPECIFIED 05/24/2017 LI LOPEZ APRN Ot J44.9 CHRONIC OBSTRUCTIVE PULMONARY DISEASE, U 05/24/2017 LI LOPEZ APRN Ot R06.02 SHORTNESS OF BREATH 05/24/2017 LI LOPEZ APRN Ot Z79.82 FPC (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 OF ASPIRIN 05/24/2017 LI LOPEZ APRN Ot Z80.8 FAMILY HISTORY OF MALIGNANT NEOPLASM OF 05/24/2017 LI LOPEZ APRN Ot Z87.448 PERSONAL HISTORY OF OTHER DISEASES OF UR 05/24/2017 LI LOPEZ APRN Ot Z91.5 PERSONAL HISTORY OF SELF-HARM 05/29/2017 SHAHANA ROSENTHAL MACHINE EDGE BANDER Ot F10.129 ALCOHOL ABUSE WITH INTOXICATION, UNSPECI 05/29/2017 ARIADNA SHAHANA MACHINE EDGE BANDER Ot F12.90 CANNABIS USE, UNSPECIFIED, UNCOMPLICATED 05/29/2017 ARIADNA SHAHANA MACHINE EDGE BANDER Ot F31.9 BIPOLAR DISORDER, UNSPECIFIED 05/29/2017 ARIADNA, SHAHANA MACHINE EDGE BANDER Ot F41.9 ANXIETY DISORDER, UNSPECIFIED 05/29/2017 ARIADNA SHAHANA MACHINE EDGE BANDER Ot G47.30 SLEEP APNEA, UNSPECIFIED 05/29/2017 ARIADNA, SHAHANA MACHINE EDGE BANDER Ot G47.9 SLEEP DISORDER, UNSPECIFIED 05/29/2017 ARIADNA SHAHANA MACHINE EDGE BANDER Ot J44.9 CHRONIC OBSTRUCTIVE PULMONARY DISEASE, U 05/29/2017 ARIADNA SHAHANA MACHINE EDGE BANDER Ot R06.02 SHORTNESS OF BREATH 05/29/2017 ARIADNA SHAHANA MACHINE EDGE BANDER Ot Z77.22 CNTCT W AND EXPSR TO ENVIRON TOBACCO SMO 05/29/2017 ARIADNA SHAHANA MARTÍNEZ Ot 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 05/29/2017 SHAHANA ROSENTHAL TANYA Ot Z87.81 PERSONAL HISTORY OF (HEALED) TRAUMATIC F 05/29/2017 ARIADNA SHAHANA TANYA Ot Z91.5 PERSONAL HISTORY OF SELF-HARM 06/08/2017 [...] DISEASE, U 06/08/2017 MELISSA GARCIA Ot 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 06/08/2017 MELISSA GARCIA [...] DISEASE, U 06/10/2017 MELISSA GARCIA Ot Z79.82 FPC (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 OF ASPIRIN 06/10/2017 MELISSA GARCIA [...] SMO 08/19/2017 LI LOPEZ APRN Ot 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 08/19/2017 LI LOPEZ [...] TO ENVIRON TOBACCO SMO 08/23/2017 LI LOPEZ PATTERN CHECKER Ot Z79.82 FPC (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 OF ASPIRIN 08/23/2017 LI LOPEZ PATTERN CHECKER Ot Z80.8 FAMILY HISTORY OF MALIGNANT NEOPLASM OF 08/23/2017 LI LOPEZ PATTERN CHECKER Ot Z91.5 PERSONAL HISTORY OF SELF-HARM 09/13/2017 Ot F10.129 ALCOHOL ABUSE WITH INTOXICATION, UNSPECI 09/13/2017 Ot F10.229 ALCOHOL DEPENDENCE WITH INTOXICATION, UN 09/13/2017 Ot F31.9 BIPOLAR DISORDER, UNSPECIFIED 09/13/2017 Ot F41.9 ANXIETY DISORDER, UNSPECIFIED 09/13/2017 Ot G47.30 SLEEP APNEA, UNSPECIFIED 09/13/2017 Ot J44.9 CHRONIC OBSTRUCTIVE PULMONARY DISEASE, U 09/13/2017 Ot Z77.22 CNTCT W AND EXPSR TO ENVIRON TOBACCO SMO 09/13/2017 Ot Z79.82 FPC (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 OF ASPIRIN 09/13/2017 Ot Z80.8 FAMILY HISTORY OF MALIGNANT NEOPLASM OF 09/13/2017 Ot Z87.448 PERSONAL HISTORY OF OTHER DISEASES OF UR 09/13/2017 Ot Z91.5 PERSONAL HISTORY OF SELF-HARM 10/03/2017 ALICIA YAP 305.00 ALCOHOL ABUSE, UNSPECIFIED DRINKING BEHAVIOR 10/03/2017 ALICIA YAP 305.1 TOBACCO USE DISORDER 10/03/2017 ALICIA YAP 786.05 SHORTNESS OF BREATH 10/03/2017 ALICIA YAP F10.120 ALCOHOL ABUSE WITH INTOXICATION, UNCOMPLICATED 10/03/2017 ALICIA YAP R06.02 SHORTNESS OF BREATH 10/03/2017 ALICIA YAP Y90.8 BLOOD ALCOHOL LEVEL OF 240 MG/100 ML OR MORE 10/03/2017 ALICIA YAP Z72.0 TOBACCO USE 10/10/2017 JENIFER MULLINS Ot F10.20 ALCOHOL DEPENDENCE, UNCOMPLICATED 10/10/2017 JENIFER MULLINS Ot F31.9 BIPOLAR DISORDER, UNSPECIFIED 10/10/2017 BERNJENIFER VELA Ot F41.9 ANXIETY DISORDER, UNSPECIFIED 10/10/2017 JENIFER MULLINS Ot G47.30 SLEEP APNEA, UNSPECIFIED 10/10/2017 JENIFER MULLINS Ot J44.9 CHRONIC OBSTRUCTIVE PULMONARY DISEASE, U 10/10/2017 BERNDANE, JENIFER Ot R06.02 SHORTNESS OF BREATH 10/10/2017 BERNDANE JENIFER Ot Z77.22 CNTCT W AND EXPSR TO ENVIRON TOBACCO SMO 10/10/2017 BERNDANE JENIFER Ot 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 10/10/2017 MARINA MULLINSIS Ot Z80.8 FAMILY HISTORY OF MALIGNANT NEOPLASM OF 10/10/2017 MARINA MULLINSIS Ot Z87.448 PERSONAL HISTORY OF OTHER DISEASES OF UR 10/10/2017 BERNMARINA VELAIS Ot Z91.5 PERSONAL HISTORY OF SELF-HARM 10/12/2017 MARINA MULLINSIS Ot F10.20 ALCOHOL DEPENDENCE, UNCOMPLICATED 10/12/2017 MARINA MULLINSIS Ot F31.9 BIPOLAR DISORDER, UNSPECIFIED 10/12/2017 MARINA MULLINSIS Ot F41.9 ANXIETY DISORDER, UNSPECIFIED 10/12/2017 MARINA MULLINSIS Ot G47.30 SLEEP APNEA, UNSPECIFIED 10/12/2017 JENIFER MULLINS Ot J44.9 CHRONIC OBSTRUCTIVE PULMONARY DISEASE, U 10/12/2017 MARINA MULLINSIS Ot R06.02 SHORTNESS OF BREATH 10/12/2017 MARINA MULLINSIS Ot Z77.22 CNTCT W AND EXPSR TO ENVIRON TOBACCO SMO 10/12/2017 MARINA MULLINSIS Ot 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 10/12/2017 MARINA MULLINSIS Ot Z80.8 FAMILY HISTORY OF MALIGNANT NEOPLASM OF 10/12/2017 MARINA MULLINSIS Ot Z87.448 PERSONAL HISTORY OF OTHER DISEASES OF UR 10/12/2017 BERNMARINA VELAIS Ot Z91.5 PERSONAL HISTORY OF SELF-HARM 10/12/2017 MARINA MULLINSIS Ot F10.10 ALCOHOL ABUSE, UNCOMPLICATED 10/15/2017 BERNDANE JENIFER Ot F10.10 ALCOHOL ABUSE, UNCOMPLICATED 10/15/2017 BERNDANE JENIFER Ot F10.10 ALCOHOL ABUSE, UNCOMPLICATED 10/15/2017 BERNDANE, JENIFER Ot F10.10 ALCOHOL ABUSE, UNCOMPLICATED 06/29/2018 MARINA MULLINSIS Ot F31.9 BIPOLAR DISORDER, UNSPECIFIED 06/29/2018 MARINA MULLINSIS Ot F41.9 ANXIETY DISORDER, UNSPECIFIED 06/29/2018 JENIFER [...] TOBACCO SMO 06/29/2018 JENIFER MULLINS Ot Z79.82 FPC (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 OF ASPIRIN 06/29/2018 JENIFER MULLINS Ot Z80.8 FAMILY HISTORY OF MALIGNANT NEOPLASM OF 06/30/2018 LI LOPEZ APRN Ot F10.10 ALCOHOL ABUSE, UNCOMPLICATED 06/30/2018 LI LOPEZ APRN Ot F10.229 ALCOHOL DEPENDENCE WITH INTOXICATION, UN 06/30/2018 LI LOPEZ APRN Ot F31.9 BIPOLAR DISORDER, UNSPECIFIED 06/30/2018 LI LOPEZ APRN Ot F41.9 ANXIETY DISORDER, UNSPECIFIED 06/30/2018 LI LOPEZ APRN Ot G47.30 SLEEP APNEA, UNSPECIFIED 06/30/2018 LI LOPEZ APRN Ot J44.9 CHRONIC OBSTRUCTIVE PULMONARY DISEASE, U 06/30/2018 LI LOPEZ APRN Ot Z77.22 CNTCT W AND EXPSR TO ENVIRON TOBACCO SMO 06/30/2018 LI LOPEZ APRN Ot 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 06/30/2018 LI LOPEZ APRN Ot Z80.8 FAMILY HISTORY OF MALIGNANT NEOPLASM OF 06/30/2018 LI LOPEZ APRN Ot Z87.448 PERSONAL HISTORY OF OTHER DISEASES OF UR 06/30/2018 LI LOPEZ APRN Ot Z91.5 PERSONAL HISTORY OF SELF-HARM 07/01/2018 JENIFER MULLINS Ot F31.9 BIPOLAR DISORDER, UNSPECIFIED 07/01/2018 JENIFER MULLINS Ot F41.9 ANXIETY DISORDER, UNSPECIFIED 07/01/2018 JENIFER MULLINS Ot J44.9 CHRONIC OBSTRUCTIVE PULMONARY DISEASE, U 07/01/2018 JENIFER MULLINS Ot R40.2142 COMA SCALE, EYES OPEN, SPONTANEOUS, EMR 07/01/2018 JENIFER MULLINS Ot R40.2252 COMA SCALE, BEST VERBAL RESPONSE, ORIENT 07/01/2018 JENIFER MULLINS Ot R40.2362 COMA SCALE, BEST MOTOR RESPONSE, OBEYS C 07/01/2018 JENIFER MULLISN Ot S00.83XA CONTUSION OF OTHER PART OF HEAD, INITIAL 07/01/2018 MARINA MULLINSIS Ot S09.93XA UNSPECIFIED INJURY OF FACE, INITIAL ENCO 07/01/2018 JENIFER MULLINS Ot W01.198A FALL SAME LEV FROM SLIP/TRIP W STRIKE AG 07/01/2018 JENIFER MULLINS Ot Z77.22 CNTCT W AND EXPSR TO ENVIRON TOBACCO SMO 07/01/2018 JENIFER MULLINS Ot Z79.82 FPC (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 OF ASPIRIN 07/01/2018 JENIFER MULLINS [...] AND EXPSR TO ENVIRON TOBACCO SMO 07/05/2018 MARINA MULLINSIS Ot Z79.82 FPC (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 OF ASPIRIN 07/05/2018 JENIFER MULLINS Ot Z80.8 FAMILY HISTORY OF MALIGNANT NEOPLASM OF 07/06/2018 LI LOPEZ APRN Ot F10.10 ALCOHOL ABUSE, UNCOMPLICATED 07/06/2018 LI LOPEZ APRN Ot F10.229 ALCOHOL DEPENDENCE WITH INTOXICATION, UN 07/06/2018 LI LOPEZ PATTERN CHECKER Ot F31.9 BIPOLAR DISORDER, UNSPECIFIED 07/06/2018 LI LOPEZ APRN Ot F41.9 ANXIETY DISORDER, UNSPECIFIED 07/06/2018 LI LOPEZ APRN Ot G47.30 SLEEP APNEA, UNSPECIFIED 07/06/2018 LI LOPEZ APRN Ot J44.9 CHRONIC OBSTRUCTIVE PULMONARY DISEASE, U 07/06/2018 LI LOPEZ APRN Ot Z77.22 CNTCT W AND EXPSR TO ENVIRON TOBACCO SMO 07/06/2018 LI LOPEZ APRN Ot Z79.82 FPC (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 OF ASPIRIN 07/06/2018 LI LOPEZ APRN Ot Z80.8 FAMILY HISTORY OF MALIGNANT NEOPLASM OF 07/06/2018 LI LOPEZ APRN Ot Z87.448 PERSONAL HISTORY OF OTHER DISEASES OF UR 07/06/2018 LI LOPEZ PATTERN CHECKER Ot Z91.5 PERSONAL HISTORY OF SELF-HARM 07/12/2018 AMBER MCKEON DO Ot J98.9 RESPIRATORY DISORDER, UNSPECIFIED 07/13/2018 JENIFER MULLINS Ot F10.229 ALCOHOL DEPENDENCE WITH INTOXICATION, UN 07/13/2018 JENIFER MULLINS Ot F31.9 BIPOLAR DISORDER, UNSPECIFIED 07/13/2018 JENIFER MULLINS Ot F41.9 ANXIETY DISORDER, UNSPECIFIED 07/13/2018 JENIFER MULLINS Ot G47.30 SLEEP APNEA, UNSPECIFIED 07/13/2018 JENIFER MULLINS Ot J44.9 CHRONIC OBSTRUCTIVE PULMONARY DISEASE, U 07/13/2018 JENIFER MULLINS Ot M25.571 PAIN IN RIGHT ANKLE AND JOINTS OF RIGHT 07/13/2018 JENIFER MULLINS Ot S82.61XA DISP FX OF LATERAL MALLEOLUS OF RIGHT FI 07/13/2018 BERNOT, JENIFER Ot W10.1XXA FALL (ON)(FROM) SIDEWALK CURB, INITIAL E 07/13/2018 MARINA MULLINSIS Ot Y92.[address] OF OCCURRENCE OF T 07/13/2018 MARINA MULLINSIS Ot Z77.22 CNTCT W AND EXPSR TO ENVIRON TOBACCO SMO 07/13/2018 MARINA MULLINSIS Ot 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 07/13/2018 HARPREETMARINAIS Ot Z80.8 FAMILY HISTORY OF MALIGNANT NEOPLASM OF 07/13/2018 MARINA MULLINSIS Ot Z87.448 PERSONAL HISTORY OF OTHER DISEASES OF UR 07/13/2018 MARINA MULLINSIS Ot Z91.5 PERSONAL HISTORY OF SELF-HARM 07/18/2018 HARPREET JENIFER Ot F10.229 ALCOHOL DEPENDENCE WITH INTOXICATION, UN 07/18/2018 TIANDANEMARINAIS Ot F31.9 BIPOLAR DISORDER, UNSPECIFIED 07/18/2018 MARINA MULLINSIS Ot F41.9 ANXIETY DISORDER, UNSPECIFIED 07/18/2018 MARINA MULLINSIS Ot G47.30 SLEEP APNEA, UNSPECIFIED 07/18/2018 HARPREET JENIFER Ot J44.9 CHRONIC OBSTRUCTIVE PULMONARY DISEASE, U 07/18/2018 TIANMARINA VELAIS Ot M25.571 PAIN IN RIGHT ANKLE AND JOINTS OF RIGHT 07/18/2018 HARPREETMARINAIS Ot S82.61XA DISP FX OF LATERAL MALLEOLUS OF RIGHT FI 07/18/2018 TIANMARINA VELAIS Ot W10.1XXA FALL (ON)(FROM) SIDEWALK CURB, INITIAL E 07/18/2018 TIANMARINA VELAIS Ot Y92.[address] OF OCCURRENCE OF T 07/18/2018 MARINA MULLINSIS Ot Z77.22 CNTCT W AND EXPSR TO ENVIRON TOBACCO SMO 07/18/2018 HARPREETMARINAIS Ot 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 07/18/2018 MARINA MULLINSIS Ot Z80.8 FAMILY HISTORY OF MALIGNANT NEOPLASM OF 07/18/2018 MARINA MULLINSIS Ot Z87.448 PERSONAL HISTORY OF OTHER DISEASES OF UR 07/18/2018 HARPREET JENIFER Ot Z91.5 PERSONAL HISTORY OF SELF-HARM 08/02/2018 Johnnie Robert W 305.00 ALCOHOL ABUSE, UNSPECIFIED DRINKING BEHAVIOR 08/02/2018 Johnnie Robert F10.120 ALCOHOL ABUSE WITH INTOXICATION, UNCOMPLICATED 08/02/2018 Johnnie Robert Y90.8 BLOOD ALCOHOL LEVEL OF 240 MG/100 ML OR MORE Procedures Code Description Performed By Performed On [facility] 10/09/2011 07927 UA W/ CULTURE IF INDICATED 02/19/2012 80871 ROUTINE VENIPUNCTURE 02/22/2012 83072 CBC 02/22/2012 67596 LIPID PANEL 02/22/2012 06936 CMP 02/22/2012 6006142 GFR CALC (RESULT ONLY) 02/22/2012 16653 TSH 02/23/2012 92724 MAMMOGRAM, SCREENING 02/23/2012 64538 HEMOCCULT 02/23/2012 46912 PAP SMEAR 02/23/2012 Q0091 PAP SMEAR OBTAIN SMEAR 02/23/2012 16539 URINE DRUG SCREEN (IN-HOUSE) 01/18/2013 01840 MAMMOGRAM, SCREENING 01/19/2013 URINEDRUG URINE DRUG SCREEN (CON'F) 01/19/2013 65799 BONE DENSITY, DEXA 04/17/2013 GENERAL S Kido, Ken 04/17/2013 19696 BONE MINERAL DENSITY, HEEL US (IN HOUSE) 04/17/2013 63180 XRAY CERVICAL SPINE, 2 OR 3 VIEWS 06/02/2013 22638 ROUTINE VENIPUNCTURE 02/16/2014 52428 MAMMOGRAM, SCREENING 02/16/2014 [id number] GFR CALC (RESULT ONLY) 02/16/2014 08996 CMP 02/16/2014 Results Test Result Range Complete [...] NRG Blood erythrocyte morphology finding identification NORMAL [facility] Comprehensive metabolic panel - 07/11/16 16:13 Serum [...] NEGATIVE NEGATIVE Urine propoxyphene detection NEGATIVE NEGATIVE Ethanol - 10/03/17 16:23 Ethanol 281 mg/dL 20-80 Complete urinalysis with reflex to culture - [...] plasma ethanol measurement (mass/volume) 345 mg/dL <10 Comprehensive Metabolic Panel - 08/02/18 18:37 Albumin 4.7 g/dL 3.6-5.1 ALP 81 U/L 35-130 ALT 33 U/L 6-45 Anion Gap 18 6-14 AST 36 U/L 2-40 BUN 8 mg/dL 5-25 Calcium 9.5 mg/dL 8.3-10.4 Chloride 100 mmol/L 95-114 CO2 20 mEq/L 22-33 Creat 0.61 mg/dL 0.50-1.50 eGFR 99 mL/min/1.73m2 >59 Globulin 2.7 g/dL 2.3-3.5 Glucose 107 mg/dL 70-110 Osmo 276 280-295 Potassium 3.6 mmol/L 3.5-5.3 Sodium 134 mmol/L 134-148 TBil 0.5 mg/dL 0.2-1.2 TP 7.4 g/dL 6.0-8.3 Cardiac Panel - 08/02/18 18:42 CK 65 U/L 26-174 CK-MB 1.3 ng/ml 0.0-9.2 Myoglobin 20.4 ng/ml 1.6-106.0 Troponin <0.020 ng/mL 0.0-0.4 Gamma Glutamyl Transferase - 08/02/18 18:53 GGT 80 U/L 5-40 Rapid Drug Screen + ETOH,Medical - 08/02/18 19:43 Amphetamine NEGATIVE NEGATIVE Barbiturates NEGATIVE NEGATIVE Benzodiazepines NEGATIVE NEGATIVE Cocaine NEGATIVE NEGATIVE Ethanol, Urine 281.60 mg/dL 20.00-80.00 Marijuana NEGATIVE NEGATIVE Methylenedioxymethamphetamine NEGATIVE NEGATIVE Opiates NEGATIVE NEGATIVE Oxycodone NEGATIVE NEGATIVE Phencyclidine NEGATIVE NEGATIVE Propoxyphene NEGATIVE NEGATIVE Tricyclic Antidepressant NEGATIVE NEGATIVE Encounters ACCT No. Visit Date/Time Discharge Status Pt. Type Provider Facility Loc./Unit Complaint [id number] 08/02/2018 18:29:00 08/02/2018 20:30:00 [id number] 10/03/2017 16:17:00 10/03/2017 19:00:00 [facility] [id number] 08/02/2018 18:41:14 Document Registration [id number] 07/13/2018 17:16:00 07/13/2018 19:38:00 DIS Emergency JENIFER MULLINS [facility] ER R ANKLE PAIN [id number] 06/30/2018 19:44:00 06/30/2018 20:07:00 DIS Emergency LI LOPEZ APRN [facility] ER ETOH [id number] 06/30/2018 18:56:00 06/30/2018 19:02:00 DIS Outpatient MIKE DO, AMBER K [facility] ER RESPIRATORY ISSUES [id number] 06/29/2018 20:32:00 06/29/2018 23:16:00 DIS Emergency JENIFER MULLINS [facility] ER FALL [id number] 10/12/2017 15:37:00 10/12/2017 16:02:00 DIS Emergency MARINA MULLINSIS [facility] ER ETOH [id number] 10/10/2017 12:17:00 10/10/2017 14:11:00 DIS Emergency JENIFER MULLINS [facility] ER SOB/ETOH [id number] 08/19/2017 18:05:00 08/19/2017 18:55:00 DIS Emergency LI LOPEZ PATTERN CHECKER [facility] ER SOB/ETOH DETOX [id number] 06/08/2017 20:29:00 06/08/2017 21:10:00 DIS Emergency MELISSA GARCIA [facility] ER SOA [id number] 05/29/2017 16:55:00 05/29/2017 18:10:00 DIS Emergency ARIADNASHAHANA MACHINE EDGE BANDER [facility] ER SOA [id number] 05/21/2017 21:00:00 05/21/2017 22:16:00 DIS Emergency LI LOPEZ APRN [facility] ER SOB [id number] 05/19/2017 17:05:00 05/19/2017 17:31:00 DIS Outpatient HONEY GOLDBERG MD [facility] ER SOA [id number] 05/11/2017 21:12:00 05/11/2017 21:57:00 DIS Emergency MELISSA GARCIA [facility] ER SOA [id number] 04/06/2017 18:38:00 04/06/2017 20:05:00 DIS Emergency MELISSA GARCIA [facility] ER ANKLE PAIN [id number] 04/06/2017 12:39:00 04/06/2017 15:08:00 DIS Emergency MALIA JOLLY MD [facility] ER DRUG/ETOH ABUSE [id number] 07/11/2016 16:09:00 07/11/2016 19:12:00 DIS Emergency MELISSA GARCIA [facility] ER ALCOHOL INTOX [id number] 03/03/2016 15:38:00 03/03/2016 16:45:00 DIS Emergency LI LOPEZ PATTERN CHECKER [facility] ER R ANKLE PAIN [id number] 05/02/2015 16:39:00 05/04/2015 13:14:00 DIS Inpatient FINESSE MOY MD [facility] 4TH RLL PNUEMONIA [id number] 11/19/2013 22:15:00 11/20/2013 10:50:00 DIS Inpatient DANICA LERNER MD [facility] ICU ETOH INTOXICATION, AMS [id number] 10/02/2013 15:43:00 10/03/2013 14:03:00 DIS Inpatient BERRY BALDERRAMA DO [facility] ICU SUICIDAL/HOMICIDAL IDEATION, ETOH INTOXICATION [id number] 04/27/2013 09:25:00 04/27/2013 23:59:59 CLS Outpatient APRIL QUINTANILLA PATTERN CHECKER [facility] RAD OSTEOPENIA [id number] 03/06/2013 10:54:00 03/06/2013 23:59:59 CLS Outpatient HUMA LOZOYA MD [facility] RAD SCREENING [id number] 11/14/2012 15:16:00 11/14/2012 23:59:59 CLS Outpatient [id number] 09/19/2012 13:31:00 09/19/2012 23:59:59 CLS Outpatient [id number] 08/22/2012 15:17:00 08/22/2012 23:59:59 CLS Outpatient [id number] 08/04/2012 14:36:00 08/04/2012 23:59:59 CLS Outpatient [id number] 07/20/2012 12:07:00 07/20/2012 13:45:00 DIS Emergency FRANCISCO ACEVEDO DO [facility] ER FELL INJ L ARM [id number] 09/13/2017 11:13:00 Document Registration [id number] 03/16/2014 10:56:00 Document Registration [id number] 03/04/2012 10:23:00 Document Registration [id number] 02/16/2014 11:31:00 02/16/2014 23:59:59 CLS Outpatient HUMA LOZOYA MD [id number] 12/02/2013 06:43:00 12/02/2013 23:59:59 CLS Outpatient HUMA LOZOYA MD [id number] 11/27/2013 11:19:00 11/27/2013 23:59:59 CLS Outpatient HUMA LOZOYA MD [id number] 10/30/2013 12:59:00 10/30/2013 23:59:59 CLS Outpatient ADDIS SPRINGER APRN [id number] 09/18/2013 13:40:00 09/18/2013 23:59:59 CLS Outpatient HUMA LOZOYA MD [id number] 07/25/2013 16:53:00 07/25/2013 23:59:59 CLS Outpatient HUMA LOZOYA MD [id number] 06/02/2013 11:36:00 06/02/2013 23:59:59 CLS Outpatient BERRY BALDERRAMA DO [id number] 06/02/2013 11:36:00 06/02/2013 23:59:59 CLS Outpatient BERRY BALDERRAMA DO [id number] 04/17/2013 10:34:00 04/17/2013 23:59:59 CLS Outpatient APRIL QUINTANILLA APRN [id number] 04/17/2013 10:34:00 04/17/2013 23:59:59 CLS Outpatient APRIL QUINTANILLA APRN [id number] 03/02/2013 13:45:00 03/02/2013 23:59:59 CLS Outpatient HUMA LOZOYA MD [id number] 03/02/2013 13:45:00 03/02/2013 23:59:59 CLS Outpatient HUMA LOZOYA MD [id number] 01/18/2013 14:08:00 01/18/2013 23:59:59 CLS Outpatient HMUA LOZOYA MD [id number] 12/19/2012 11:31:00 12/19/2012 23:59:59 CLS Outpatient HUMA LOZOYA MD [id number] 09/29/2012 16:24:00 09/29/2012 23:59:59 CLS Outpatient HUMA LOZOYA MD [id number] 03/28/2012 11:42:00 03/28/2012 23:59:59 CLS Outpatient HUMA LOZOYA MD [id number] 02/22/2012 09:43:00 02/22/2012 23:59:59 CLS Outpatient BERRY BALDERRAMA DO [id number] 02/19/2012 13:27:00 02/19/2012 23:59:59 CLS Outpatient BERRY BALDERRAMA DO [id number] 10/02/2011 09:36:00 10/02/2011 23:59:59 [place] [id number] 10/02/2011 09:36:00 10/02/2011 23:59:59 CLS Outpatient [id number] 06/24/2012 13:29:00 Document Registration
[2018-09-09 19:13] LABS: BASOPHILS # (AUTO) 0.1 10^3/uL (0.0-0.1); BASOPHILS % (AUTO) 1 % (0-10); EOSINOPHILS # (AUTO) 0.2 10^3/uL (0.0-0.3); EOSINOPHILS % (AUTO) 2 % (0-10); HEMATOCRIT 43 % (35-52); HEMOGLOBIN 14.6 G/DL (11.5-16.0); LYMPHOCYTES # (AUTO) 4.4 X 10^3 (1.0-4.0); LYMPHOCYTES % (AUTO) 33 % (12-44); MEAN CORPUSCULAR HEMOGLOBIN 34 PG (25-34); MEAN CORPUSCULAR HGB CONC 34 G/DL (32-36); MEAN CORPUSCULAR VOLUME 98 FL (80-99); MEAN PLATELET VOLUME 10.8 FL (7.4-10.4); MONOCYTES # (AUTO) 1.4 X 10^3 (0.0-1.0); MONOCYTES % (AUTO) 11 % (0-12); NEUTROPHILS % (AUTO) 54 % (42-75); PLATELET COUNT 89 10^3/uL (130-400); RED CELL DISTRIBUTION WIDTH 12.8 % (10.0-14.5); WHITE BLOOD COUNT 13.1 10^3/uL (4.3-11.0)
[2018-09-09] MEDS ORDERED: FOLIC ACID 1 MG TAB PO ONE (19:15)
[2018-09-09] MEDS ORDERED: THIAMINE 100 MG (VITAMIN B-1) TAB PO ONE (19:15)
[2018-09-09 19:31] LABS: ALANINE AMINOTRANSFERASE 33 U/L (0-55); ALBUMIN 4.8 GM/DL (3.2-4.5); ALKALINE PHOSPHATASE 81 U/L (40-136); BILIRUBIN,TOTAL 0.2 MG/DL (0.1-1.0); BUN/CREATININE RATIO 18; CALCIUM 9.4 MG/DL (8.5-10.1); CARBON DIOXIDE 20 MMOL/L (21-32); CHLORIDE 101 MMOL/L (98-107); CREATININE SERUM 0.61 MG/DL (0.60-1.30); GFR ESTIMATED > 60; GLUCOSE 83 MG/DL (70-105); MAGNESIUM 2.3 MG/DL (1.8-2.4); POTASSIUM 3.9 MMOL/L (3.6-5.0); SODIUM 137 MMOL/L (135-145); TOTAL PROTEIN 7.7 GM/DL (6.4-8.2)
--- NOTE | 2018-09-09 19:49 | Diagnostic Imaging Report ---
PROCEDURE: CT head and CT cervical spine without contrast. TECHNIQUE: Multiple contiguous axial images were obtained through the brain and cervical spine without the use of intravenous contrast. Sagittal and coronal reformations through the cervical spine were then performed. Auto Exposure Controls were utilized during the CT exam to meet ALARA standards for radiation dose reduction. DATE: September 09, 2018. COMPARISON: CT head and cervical spine, June 29, 2018. INDICATION: 63-year-old female, fall. Head and neck pain. FINDINGS: There are areas of low attenuation in the bilateral subcortical white matter which are nonspecific but most likely relate to changes of chronic small vessel ischemic disease. There is likely remote prior lacunar infarct in the left basal ganglia. There is no hydrocephalus. There is no abnormal extra-axial fluid collection. There is no evidence of acute intracranial hemorrhage. There is no mass effect or midline shift. There is no facet joint subluxation or subluxation. The facet joints are unremarkable in appearance. There is no asymmetric widening of the cervical disc spaces. There is no prominent prevertebral soft tissue swelling. There is minimal grade 1 retrolisthesis of C4 on C5 and also of C5 on C6. CT is limited for assessment of disc pathology as well as additional non-bony causes of pathology within the spinal canal. There is moderate disc height loss and posterior disc osteophyte complex at C3-C4 as well as disc degenerative changes at C4-C5 and C5-C6. There is no identified acute fracture of the cervical spine. There is a left upper lobe pulmonary nodule on axial image 63 which measures 8 mm in size. There are bilateral carotid vascular calcifications. IMPRESSION: 1. No identified acute intracranial abnormality. 2. Remote prior infarct in the left basal ganglia with mild changes of chronic small vessel ischemic disease. 3. No identified acute posttraumatic abnormality of the cervical spine. 4. There is an 8 mm left upper lobe pulmonary nodule. Dictated by: Dictated on workstation # [id number]
[2018-09-09] MEDS ORDERED: IBUPROFEN 600 MG (MOTRIN) TAB PO ONE (20:00)
--- NOTE | 2018-09-09 20:15 | NUR ---
Contacted [facility] service to assist pt in a ride home. Service reports ETA of 45 minutes. D/C instructions reviewed with pt who verbalized understanding.
[2018-09-09 20:45] VITALS: BP 103/75
== END 2018-09-09 20:45 | disposition home or self-care (01) ==
LOC: EDUNIT# 18:59 → ER 19:00
DX: F10.20 Alcohol dependence, uncomplicated (principal); R91.1 Solitary pulmonary nodule; J44.9 Chronic obstructive pulmonary disease, unspecified; G47.30 Sleep apnea, unspecified; F41.9 Anxiety disorder, unspecified; F31.9 Bipolar disorder, unspecified; F17.210 Nicotine dependence, cigarettes, uncomplicated; F12.10 Cannabis abuse, uncomplicated; Z79.82 Long term (current) use of aspirin; Z91.5 Personal history of self-harm; Z80.8 Family history of malignant neoplasm of other organs or systems; W18.39XA Other fall on same level, initial encounter
CPT/HCPCS: 36415; 70450; 72125; 80053; 80320; 83735; 85025; 93005

== ENCOUNTER 2018-10-11 15:17 | Emergency (ER) | payer MEDICAID ==
[~2018-10-11] VITALS: Ht 160 cm; Wt 52.4 kg
--- NOTE | 2018-10-11 15:27 | ED General ---
General Stated Complaint: ETOH Source of Information: Patient, EMS Exam Limitations: No Limitations History of Present Illness Date Seen by Provider: Oct 11, 2018 Time Seen by Provider: 15:25 Initial Comments Alcoholic well-known to us presents to us via EMS with reports of a respiratory infection to EMS. However whenever she gets here she denies that and states she just wants to go home. Timing/Duration: 1 Hour Associated Systoms: Denies Symptoms Allergies and Home Medications Allergies Coded Allergies: No Known Drug Allergies (Unverified , 07/20/12) Home Medications Aspirin 81 Mg Tablet.dr, 81 MG PO DAILY, (Reported) Buspirone HCl 10 Mg Tablet, 10 MG PO BID, (Reported) Cefpodoxime Proxetil 200 Mg Tablet, 200 MG PO BID Prescribed by: FINESSE DESAI on 05/04/15 1211 Diclofenac Sodium 75 Mg Tablet.dr, 75 MG PO BID, (Reported) Furosemide 40 Mg Tablet, 40 MG PO DAILY, (Reported) Gabapentin 300 Mg Capsule, 300 MG PO TID, (Reported) Hydrocodone/Acetaminophen 1 Each Tablet, 1 EACH PO Q4H PRN for PAIN Prescribed by: LI LOPEZ on 03/03/16 1620 Levomilnacipran Hydrochloride 80 Mg Cap.sa.24h, 80 MG PO DAILY, (Reported) Loratadine 10 Mg Tablet, 10 MG PO DAILY, (Reported) Lorazepam 0.5 Mg Tablet, 0.5 MG PO DAILY PRN for ANXIETY, (Reported) Multivitamin 1 Each Tablet, 1 TAB PO DAILY, (Reported) Potassium Chloride 20 Meq Tab.er.prt, 20 MEQ PO DAILY, (Reported) Quetiapine Fumarate 100 Mg Tablet, 100 MG PO HS, (Reported) Tizanidine HCl 4 Mg Tablet, 4 MG PO TID PRN for MUSCLE SPASMS, (Reported) Patient Home Medication List Home Medication List Reviewed: Yes Review of Systems Review of Systems Constitutional: see HPI EENTM: see HPI Respiratory: no symptoms reported Cardiovascular: no symptoms reported Genitourinary: no symptoms reported Musculoskeletal: no symptoms reported Skin: no symptoms reported Psychiatric/Neurological: No Symptoms Reported Hematologic/Lymphatic: No Symptoms Reported Past Sgowywo-Civmem-Gledyf Hx Patient Social History Alcohol Beverage of Choice: Beer, Whiskey, [place] Drug of Choice: CANNIBUS Type Used: Cigarettes 2nd Hand Smoke Exposure: Yes Recent Foreign Travel: No Contact w/Someone Who Travel: No Recent Hopitalizations: No Immunizations Up To Date Tetanus Booster (TDap): Unknown PED Vaccines UTD: No Seasonal Allergies Seasonal Allergies: No Past Medical History Surgeries: Yes (CYST ON OVARY) Respiratory: Yes Sleep Apnea, COPD Currently Using CPAP: No Currently Using BIPAP: No Cardiac: No Neurological: Yes Reproductive Disorders: No Female Reproductive Disorders: Denies Sexually Transmitted Disease: No HIV/AIDS: No Genitourinary: No Gastrointestinal: No Musculoskeletal: Yes (ANKLE FRACTURE) Arthritis, Chronic Back Pain Endocrine: No HEENT: No Cancer: No Psychosocial: Yes (alcoholism) Sleep Difficulties, Anxiety, Suicide Attempts, Bipolar, Depression Integumentary: No Blood Disorders: No Family Medical History Alcoholism 19 FATHER G8 BROTHER G8 BROTHER G8 BROTHER G8 SISTER G8 SISTER FH: brain cancer G8 SISTER Neoplasm 19 MOTHER No Pertinent Family Hx Physical Exam Vital Signs Capillary Refill : Height, Weight, BMI Height: 5'3.00" Weight: 115lbs. 8.0oz. 52.395318mx; 18.11 BMI Method:Estimated General Appearance: No Apparent Distress, WD/WN, Other (laboratory obviously intoxicated with slurred speech) Neck: Full Range of Motion, Normal Inspection Respiratory: No Accessory Muscle Use, No Respiratory Distress Gastrointestinal: Non Tender, Soft Neurologic/Psychiatric: Alert, Oriented x3, No Motor/Sensory Deficits Skin: Normal Color, Warm/Dry Comments Cooperative, states she just wants to go home. Not sure why she came here to begin with she says. Progress/Results/Core Measures Suspected Sepsis SIRS Temperature: Pulse: Respiratory Rate: Blood Pressure / Mean: Results/Orders Vital Signs/I&O Capillary Refill : Departure Impression Primary Impression: Alcohol intoxication Qualified Codes: F10.929 - Alcohol use, unspecified with intoxication, unspecified Disposition: 01 HOME, SELF-CARE Condition: Stable Departure-Patient Inst. Decision time for Depature: 15:27 Referrals: HUMA LOZOYA MD (PCP/Family) Primary Care Physician Patient Instructions: Alcohol Abuse and Alcoholism (DC) Add. Discharge Instructions: 1. Return to ER for any concerns LI LOPZE APRN Oct 11, 2018 15:27
[2018-10-11 15:32] VITALS: BP 94/66
--- NOTE | 2018-10-11 15:32 | NUR ---
DISCHARGE AFTER EXAM BY Bri LOPEZ APRN. PATIENT NEEDS RIDE HOME.
--- NOTE | 2018-10-11 15:42 | NUR ---
SKILL WORKER CALLED TALKED WITH Bri LOPEZ APRN WILL COME GET HER.
--- NOTE | 2018-10-11 15:55 | NUR ---
SKILL WORKER JEFFREY [phone]
--- NOTE | 2018-10-11 16:00 | NUR ---
Assisted by peaceably managing unruly behaviors of inebriated pt until her transportation arrived.
== END 2018-10-11 15:32 | disposition home or self-care (01) ==
LOC: EDUNIT# 15:17 → ER 15:18
DX: F10.229 Alcohol dependence with intoxication, unspecified (principal); J44.9 Chronic obstructive pulmonary disease, unspecified; G47.30 Sleep apnea, unspecified; F31.9 Bipolar disorder, unspecified; F41.9 Anxiety disorder, unspecified; Z79.82 Long term (current) use of aspirin; Z77.22 Contact with and (suspected) exposure to environmental tobacco smoke (acute) (chronic); Z80.8 Family history of malignant neoplasm of other organs or systems
CPT/HCPCS: 99283

== ENCOUNTER 2018-10-12 13:22 | Emergency (ER) | payer MEDICAID | END 2018-10-12 13:30 | disposition left against medical advice (07) | LOC: EDUNIT# 13:22 → ER 13:23 | DX: R69 Illness, unspecified (principal) ==

== ENCOUNTER 2018-12-22 15:47 | Emergency (ER) | payer MEDICAID ==
[~2018-12-22] VITALS: Ht 160 cm; Wt 49.8 kg
--- NOTE | 2018-12-22 16:30 | NUR ---
TO LOBBY TO CALL PATIENT BACK AND WS NOT THERE. PERSONS IN LOBBY STATE THEY SAW HER WALK OUT EARLIER.
[2018-12-22 17:20] VITALS: BP 105/67
== END 2018-12-22 17:20 | disposition left against medical advice (07) ==
LOC: EDUNIT# 15:47 → ER 15:48
DX: F10.10 Alcohol abuse, uncomplicated (principal); F19.90 Other psychoactive substance use, unspecified, uncomplicated
CPT/HCPCS: 99281

== ENCOUNTER 2019-07-02 15:31 | Emergency (ER) | payer MEDICARE, MEDICAID ==
[~2019-07-02] VITALS: Ht 165 cm; Wt 63.6 kg
[~2019-07-02 15:31] MED LIST changes: +QUET100T33; +QUET100T33 PO; -QUET100T69; -QUET100T69 PO
[2019-07-02 15:32] VITALS: BP 108/87
--- OUTSIDE RECORDS SUMMARY | 2019-07-02 15:37 | XMS REPORT ---
Author Author Active International manager contact Critique^It [facility] [employer] [facility] Address [address] [place] [address] Care Team Providers Care Transfer Car Operator Drier Name Role Phone HUMA LOZOYA Unavailable LAURENERTTEMITOPE, HUMA Unavailable DEVORA, HUMA Unavailable DEVORA, HUMA F Unavailable LAURENERTTEMITOPE, HUMA Unavailable LAURENBGTEMITOPE, HUMA Unavailable LAURENBGTEMITOPE, HUMA Unavailable BGTEMITOPE, HUMA F Unavailable APRIL QUINTANILLA AIRCRAFT MAINTENANCE SUPERVISOR Unavailable Unavailable BALDERRAMA DO, BERRY K Unavailable Unavailable BALDERRAMA DO, BERRY K Unavailable Unavailable CURTIS DO, FRANCISCO J Unavailable Unavailable YANN PINEDO, DANICA Tanner Unavailable Unavailable YANN PINEDO, DANICA Tanner Unavailable Unavailable LI LOPEZ AIRCRAFT MAINTENANCE SUPERVISOR Unavailable Unavailable RIK PINEDO, MALIA Atkins Unavailable Unavailable DEVORA PINEDO, HUMA Sparks Unavailable Unavailable GISELLE PINEDO, FINESSE Trammell Unavailable Unavailable GISELLE PINEDO, FINESSE Trammell Unavailable Unavailable GENOVEVA GREEN, MELISSA Dubose Unavailable Unavailable EMMETT PINEDO, JOO Zapata Unavailable Unavailable Migration, Doctor Unavailable Unavailable Migration, Doctor Unavailable Unavailable Migration, Doctor Unavailable Unavailable Migration, Doctor Unavailable Unavailable Migration, Doctor Unavailable Unavailable Migration, Doctor Unavailable Unavailable Migration, Doctor Unavailable Unavailable BERNOT, JENIFER Unavailable Unavailable MIKE DO, AMBER K Unavailable Unavailable LI LOPEZ AIRCRAFT MAINTENANCE SUPERVISOR Unavailable Unavailable MARISEL CRUZ Unavailable Unavailable CULLEN BNETON Unavailable Unavailable CULLEN BENTON Unavailable Unavailable HUMA LOZOYA Unavailable TIFFANY BARKER Unavailable DEVORA, HUMA Unavailable DEVORA, HUMA Unavailable DEOVRA, HUMA Unavailable STACY BARKERNDA Unavailable HUERTER, HUMA Unavailable HUERTER, HUMA Unavailable TIFFANY BARKER Unavailable HUERTER, HUMA Unavailable HUERTER, HUMA Unavailable HUERTER, HUMA Unavailable HUERTER, HUMA Unavailable HUERTER, HUMA Unavailable HUERTER, HUMA F PCP HUERTER, HUMA Unavailable HUERTER, HUMA Unavailable HUERTER, HUMA Unavailable TANNA LOPEZ Unavailable Unavailable HUERTER, HUMA Sparks Unavailable Unavailable HUERTER, HUMA Unavailable HUERTER, HUMA Unavailable ZHOU ALEXANDER Unavailable Unavailable PAONI, ALFREDO Unavailable Unavailable PAONI, ALFREDO Unavailable Unavailable HUERTER, HUMA F PCP JANNETH, AMBER Unavailable Unavailable JANNETH, AMBER Unavailable Unavailable RIK PINEDO, MALIA Atkins Unavailable Unavailable ASHLYN PINEDO, HONEY Donaldson Unavailable Unavailable TIFFANY BARKER Unavailable HUERTER, HUMA Unavailable MADL, MIGUE Unavailable MADL, MIGUE Unavailable Nikita APRIL Unavailable MADL, MIGUE Unavailable MADL, MIGUE Unavailable HUERTER, HUMA Unavailable MADL, MIGUE Unavailable HUERTER, HUMA Unavailable HUERTER, HUMA Unavailable HUERTER, HUMA Unavailable HUERTER, HUMA Unavailable Nikita, APRIL Unavailable jagzHEIMAN, APRIL Unavailable HUERTER, HUMA Unavailable HUERTER, HUMA Unavailable HUERTER, HUMA Unavailable HUERTER, HUMA Unavailable HUERTER, HUMA Unavailable HUERTER, HUMA Unavailable HUERTER, HUMA Unavailable APRIL Shelton Unavailable HUERTER, HUMA Unavailable HUERTER, HUMA Unavailable TIFFANY BARKER Unavailable HUERTER, HUMA Unavailable HUERTER, HUMA Unavailable HUERTER, HUMA Unavailable HUERTER, HUMA Unavailable TIFFANY BARKER Unavailable HUERTER, HUMA Unavailable HUERTER, HUMA Unavailable HUERTER, HUMA Unavailable HUERTER, HUMA Unavailable HUERTER, HUMA Unavailable HUERTER, HUMA Unavailable Unavailable Unavailable Unavailable Unavailable Unavailable Unavailable Unavailable Unavailable Unavailable Unavailable Unavailable Unavailable Unavailable Unavailable Allergies Normalized Allergy Reported Date of Reaction(s) Care Provider Facility Allergy Type classification allergen Allergy Onset DA (21 Unclassified No Known Drug 07-20-2012 - no information APRIL QUINTANILLA Not Available sources.) Allergies (68258) no information Unclassified NO KNOWN DRUG UNKNOWN [facility] [place] (4 sources.) ALLERGIES [facility] ([address]85) Medications Medication Ingredient Drug Dose Dates Status Sig Sig Care Class(es) (Normalized) (Original) Provid er no Normal no 06-24-19 no no no Stormy information saline information 20 - informat information infor medardo Alexander (1 source.) 06-24-19 ion (no 20 phone) 08-02-2018 no no no no name - information inform informat 08-02-2018 ation ion no Promethazin no 05-02-19 Complete no Promethazine no information e-Codeine information 16 d information -Cod eine name (1 source.) Discontinued NOT APPLICABLE 180 May 02, 2015 no THIAMINE no 08-03-19 no no no no information VIAL 2CC information 19 - informat information inf ormation name (1 source.) INJ 100 08-03-19 ion MG/CC (VIT 19 B1 2CC VIAL) Problems Active Problems Problem Normalized Date Last Normalized Normalized Provider Fa cility Classification Problem(s) Recorded Problem Problem Sta tus Duration External cause Blood alcohol 06-30-2019 - Episodic Active JULIEN ALVAREZ [facility] Hospital codes: level of 240 [facility] of Unspecified mg/100 ml or [place] (24 sources[address] [facility] (58551) Chronic Chronic Chronic Active LI LOPEZ Not Availab le obstructive obstructive (55158) pulmonary pulmonary disease and disease, bronchiectasis unspecified (23 sources.) Superficial Contusion of Episodic Active JENIFER MULLINS [facility] Via injury; other part of [place] contusion (4 head, initial Hospital - sources.) encounter [place] Translations: (24177) [ Contusion of face] Other lower Lung mass Episodic Active HUMA Hernandez ion Via respiratory 08170 [place] disease (1 Hospital source.) (57042) Bacterial Mycoplasma 06-30-2019 - Episodic Active [facility] infection; infection, [facility] of unspecified unspecified [place] site (12 site [facility] (19334) sources.) Translations: [ MYCOPLASMA INFECTION IN CONDITIONS CLASSIFIED ELSEWHERE AND OF UNSPECIFIED SITE] Other nervous Other chronic Chronic Active BERRY BALDERRAMA , N ot Available system pain DO (03032) disorders (5 sources.) Attention-defi Other conduct Chronic Active BERRY BALDERRAMA , Not Available 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 disruptive behavior disorders (5 sources.) Other lower Shortness of 06-30-2019 - Episodic [facility] Hospital respiratory breath [facility] of disease (22 [place] sources.) [facility] (42861) Other lower Shortness of Episodic Active no name Hospita l respiratory breath [facility] of disease (5 [place] sources.) [facility] (80510) Residual Sleep apnea, Chronic Active LI LOPEZ [facility] Via codes; unspecified [place] unclassified Hospital - (6 sources.) [place] (04734) NEGATED Sleep no information Active no name no infor mation no disorder, information (3 unspecified sources.) Translations: [ SLEEP APNEA, UNSPECIFIED, CNTCT W AND EXPSR TO ENVIRON TOBACCO SMO, FAMILY HISTORY OF MALIGNANT NEOPLASM OF ] Residual Tobacco use 06-30-2019 - Episodic Active ZHOU Perez Hospital codes; [facility] unclassified [place] (25 sources.) County ([address]) Past or Other Problems Problem Normalized Date Last Normalized Normalized Provider Fa steve Classification Problem(s) Recorded Problem Problem Sta tus Duration External cause Accidental no information Completed FRANCISCO Tanner ot Available codes: Fall fall on or CURTIS , DO () (15 sources.) from other stairs or steps Translations: [ UNSPECIFIED FALL, INITIAL ENCOUNTER, FALL SAME LEV FROM SLIP/TRIP W STRIKE AG, FALL (ON)(FROM) SIDEWALK CURB, INITIAL E, Fall on same level, Fall] Residual Altered mental Episodic Completed DANICA LERNER Not Available codes; status , () unclassified (5 sources.) Residual Altered mental Episodic Completed FINESSE DESAI Not Available codes; status, , () unclassified unspecified (2 sources.) Fracture of Closed Episodic Completed FRANCISCO Not Availab le upper limb (5 fracture of CURTIS , DO (29554) sources.) greater tuberosity of humerus Coma; stupor; Coma scale, no information no information [facility] BER[facility] Via and brain best verbal [place] damage (6 response, Hospital - sources.) oriented, at [place] arrival to () emergency department Translations: [ COMA SCALE, BEST MOTOR RESPONSE, OBEYS C, COMA SCALE, EYES OPEN, SPONTANEOUS, EMR] Coma; stupor; Coma scale, Episodic Completed [facility]ER BERNOT [facility] Via and brain best verbal [place] damage (3 response, Hospital - sources.) oriented, at [place] arrival to (35197) emergency department Translations: [ COMA SCALE, BEST MOTOR RESPONSE, OBEYS C, COMA SCALE, EYES OPEN, SPONTANEOUS, EMR] Residual Contact with Episodic Completed [facility]IFER BERNOT [facility] V ia codes; and [place] unclassified (suspected) Hospital - (9 sources.) exposure to [place] environmental (71825) tobacco smoke (acute) (chronic) Other bone Disorder of Episodic Completed APRIL DWIGHT Not Av ailable disease and bone and (90756) musculoskeleta cartilage, l deformities unspecified (5 sources.) Other Effusion, left Episodic Completed MALIA Not Anuja ilable non-traumatic ankle BRUEGGERADHA , (62192) joint MD disorders (5 sources.) External cause Exposure to no information no information LI LOPEZ Not Available codes: other (74956) Natural/enviro specified nment (11 factors, sources.) initial encounter Residual Family history Episodic Completed [facility]ER MULLINS [facility] Via codes; of malignant [place] unclassified neoplasm of Hospital - (17 sources.) other organs [place] or systems (55765) Translations: [ CNTCT W AND EXPSR TO ENVIRON TOBACCO SMO, TOBACCO USE] Headache; Headache Episodic Completed BERRY BALDERRAMA , Not Availa ble including DO (84611) migraine (5 sources.) External cause Home accidents no information no information LAW RENCE Not Available codes: Place Translations: DO CURTIS (91185) of occurrence [ UNS PLACE (12 sources.) IN UNSP NON-INSTITUT (PRIVATE, SIDEWALK THE PLACE OF OCCURRENCE OF T] Impulse Homicidal Episodic Completed BERRY BALDERRAMA , Not Avail able control ideation DO (93869) disorders NEC (5 sources.) Residual Illness, Episodic Completed MALIA [facility] Via codes; unspecified BRUEGCarissa DIANE unclassified Hospital - (2 sources.) [place] (30039) Other detention Episodic Completed LI LOPEZ Not Availa ble aftercare (22 (current) use (05515) sources.) of aspirin External cause Other external no information no information LAW RENCE Not Available codes: cause status DO CURTIS (50154) Unspecified Translations: (20 sources.) [ OTHER EXTERNAL CAUSE STATUS, BLOOD ALCOHOL LEVEL OF 120-199 MG/100 ML, BLOOD ALCOHOL LEVEL OF 240 MG/100 ML OR MORE] External cause Other fall on Episodic Completed [facility]ER MULLINS [facility] Via codes: Fall (3 same level, [place] sources.) initial Hospital - encounter [place] Translations: (10187) [ FALL (ON)(FROM) SIDEWALK CURB, INITIAL E, FALL SAME LEV FROM SLIP/TRIP W STRIKE AG] Other Other long Episodic Completed LI LOPEZ Not Avail able aftercare (11 term (current) (79869) sources.) drug therapy Other Pain in Episodic Completed no name Not Available connective unspecified (80536) tissue disease limb (1 source.) Residual Patient's Episodic Completed FINESSE DESAI Not Avai lable codes; MD cammy (25345) unclassified noncompliance (5 sources.) with medication regimen Translations: [ SLEEP APNEA, UNSPECIFIED, ALTERED MENTAL STATUS, UNSPECIFIED] Other injuries Personal Episodic Completed no name no infor mation and conditions history of due to (healed) external traumatic causes (1 fracture source.) Genitourinary Personal Episodic Completed LI LOPEZ [facility] Via symptoms and history of [place] ill-defined other diseases Hospital - conditions (10 of urinary [place] sources.) system (70490) Suicide and Personal Episodic Completed BERRY BALDERRAMA , Not Avai lable intentional history of DO (84008) self-inflicted self-harm injury (21 Translations: sources.) [ SUICIDAL IDEATION] Pneumonia Pneumonia, Episodic Completed FINESSE DESAI Not Anuja ilable (except that unspecMD ruben (42515) caused by organism tuberculosis or sexually transmitted disease) (5 sources.) Other lower Respiratory Episodic Completed AMBER MIKE , DO [facility] Via respiratory disorder, [place] disease (2 unspecified Hospital - sources.) [place] (41577) Septicemia Sepsis, no information no information FINESSE DESAI Not Available (except in unspecified MD (96015) labor) (5 organism sources.) Other injuries Shoulder and Episodic Completed FRANCISCO Not Available and conditions upper arm CURTIS , DO (20322) due to injury external causes (5 sources.) External cause Sidewalk as Episodic Completed [facility]ENIFER BERNOT [facility] Via codes: Place the place of [facility] of occurrence occurrence of Hospital - (1 source.) the external [place] cause (29214) Residual Sleep apnea, no information no information FINESSE ZELAYA Not Available codes; unspecMD ruben (69913) unclassified Translations: (20 sources.) [ FAMILY HISTORY OF MALIGNANT NEOPLASM OF , CNTCT W AND EXPSR TO ENVIRON TOBACCO SMO] Other lower Solitary Episodic Completed TANNA JOHN [facility] Via respiratory pulmonary [place] disease (1 nodule Hospital - source.) [place] (80197) Other injuries Unspecified Episodic Completed [facility]ENIFER BERNOT [facility] Via and conditions injury of [place] due to face, initial Hospital - external encounter [place] causes (3 (80536) sources.) Procedures Procedure Normalized Procedure Procedure Result Performer Facility Date 02-16-2014 Collection venous no information no name [facility] blood venipuncture [facility] (74251) 02-16-2014 Comprehensive no information no name [facility] metabolic panel [facility] (02262) 01-18-2013 Drug screen, no information no name [facility] qualitate/multi [facility] (37621) 04-17-2013 Dxa bone density study no information no name [facility] 1/> sites axial skel [facility] (15006) 03-19-2014 Mammogram, screening no information no name [facility] (75730) 06-02-2013 Radex spine cervical 2 no information no name [facility] or 3 views [facility] (49692) 04-17-2013 Us bone density nasim & no information no name [facility] interp periph any [facility] (52745) Immunizations Normalized Immunization Date Notes Care Provider Facili ty Immunization influenza, 02-16-2014 no information HUMA LOZOYA [address] [facility] injectable, [place], [place] ([address]) contains preservative influenza, seasonal, 12-15-2018 no information no name [facility] injectable [facility] (07653) no information 12-22-2018 no information HUMA LOZOYA [address] [facility] (03681) Results Test Name Value Interpretation Reference Range Date Time Fa cility (Normalized) (Normalized) (Medline Reference) not yet categorized on 2019-07-01 Electrocardiogra Complete (no code) 07-01-2019 Hospital ms recorded 12: [facility] (02405) Urine Volume Urine Volume (no code) 07-01-2019 Hospital Sufficient 12: [facility] of (10mL) [facility] (55496) no information Urine Saved if (A) 07-01-2019 Hospital Culture Needed 12: [facility] of (48hrs from time [facility] of collection) (96179) laboratory on 2019-07-01 Albumin BCG dye 4.3 (no code) 07-01-2019 Hospital [Mass/Vol] 12: [facility] (18972) ALP [Catalytic 104 U/L (no code) 44 - 147 U/L 07-01-2019 Hosp ital activity/Vol] 12: [facility] (28784) ALT [Catalytic 32 U/L (no code) 4 - 40 U/L 07-01-2019 Hospit al activity/Vol] 12: [facility] () Amphetamines Ql Negative (no code) 07-01-2019 Hospital (U) 12: [facility] () Anion gap 16 mmol/L (H) 3 - 11 mmol/L 07-01-2019 Hospital [Moles/Vol] 12: [facility] () AST [Catalytic 60 U/L (H) 10 - 34 U/L 07-01-2019 Hospi arianna activity/Vol] 12: [facility] () Bacteria LM Ql Trace (A) 07-01-2019 Hospital (Urine sed) 12: [facility] () Barbiturates Negative (no code) 07-01-2019 Hospital Screen Ql (U) 12: [facility] () Basophils (Bld) 0.0 10*3/uL (no code) 0 - 0.3 10*3/uL 07-01-2019 Hospital [#/Vol] 12: [facility] () Basophils/100 0.40 % (no code) 0.5 - 1 % 07-01-2019 Hospital WBC (Bld) 12: [facility] () Benzodiazepine Negative (no code) 07-01-2019 Hospital metabolites 12: [facility] Screen Ql (U) [facility] () Bilirubin 0.3 mg/dL (no code) 0.1 - 1.2 mg/dL 07-01-2019 Hospit al [Mass/Vol] 12: [facility] () Bilirubin N/A (A) 07-01-2019 Hospital Confirm Ql (U) 12: [facility] () Bilirubin Ql (U) Negative (no code) 07-01-2019 Hospital 12: [facility] () Calcium 8.9 mg/dL (no code) 8.5 - 10.2 mg/dL 07-01-2019 Hospi arianna [Mass/Vol] 12: [facility] () Carboxy Negative (no code) 07-01-2019 Hospital tetrahydrocannab 12: [facility] inol Ql (U) [facility] () Chloride 98 mmol/L (no code) 95 - 106 mmol/L 07-01-2019 Hospit al [Moles/Vol] 12: [facility] () Clarity (U) Clear (no code) 07-01-2019 Hospital 12: [facility] () Cocaine Ql (U) Negative (no code) 07-01-2019 Hospital 12: [facility] () Color (U) Yellow (no code) 07-01-2019 Hospital 12: [facility] () Creatinine 0.61 mg/dL (no code) 07-01-2019 Hospital [Mass/Vol] 12: [facility] () Eosinophils 0.1 10*3/uL (no code) 0.05 - 0.5 07-01-2019 Hospita l (Bld) [#/Vol] 10*3/uL 12: [facility] () Eosinophils/100 1.3 % (no code) 1 - 4 % 07-01-2019 Hospit al WBC (Bld) 12: [facility] (85126) Epithelial 5-10/HPF (A) 07-01-2019 Hospital cells.squamous 12: [facility] LM.HPF (Urine [facility] sed) [#/Area] (92192) Erythrocyte 12.0 % (no code) 11.6 - 14.6 % 07-01-2019 Hospit al distribution 12: [facility] width (RBC) [facility] [Ratio] (25996) Ethanol Ql (U) 334.30 (HH) 07-01-2019 Hospital 12: [facility] (94594) GFR/1.73 sq 98 (no code) 90 - 120 07-01-2019 Hospital M.predicted MDRD mL/min/{1.73_m2} mL/min/{1.73_m2} 12: [facility] (S/P/Bld) [Vol [facility] rate/Area] (79134) Globulin (S) 3.1 g/dL (no code) 2 - 3.5 g/dL 07-01-2019 Hospit al [Mass/Vol] 12: [facility] () Glucose 116 mg/dL (H) 60 - 125 mg/dL 07-01-2019 Hospita l [Mass/Vol] 12: [facility] () Glucose Test Negative (no code) 07-01-2019 Hospital strip (U) 12: [facility] [Mass/Vol] [facility] () HCO3 (P) 29 (no code) 07-01-2019 Hospital [Moles/Vol] 12: [facility] () Hematocrit (Bld) 38.2 % (no code) 36.1 - 50.3 % 07-01-2019 H ospital [Volume 12: [facility] fraction] [facility] () Hemoglobin (Bld) 13.4 g/dL (no code) 12.1 - 17.2 g/dL 07-01-2019 Hospital [Mass/Vol] 12: [facility] () Hemoglobin Ql Negative (no code) 07-01-2019 Hospital (U) 12: [facility] () Ketones (U) Negative (no code) 07-01-2019 Hospital [Mass/Vol] 12: [facility] () Leukocyte Negative (no code) 07-01-2019 Hospital esterase Test 12: [facility] strip Ql (U) [facility] () Lymphocytes 2.58 10*3/uL (no code) 0.9 - 2.9 07-01-2019 Hospita l (Bld) [#/Vol] 10*3/uL 12: [facility] (10303) Lymphocytes/100 38.6 % (no code) 20 - 40 % 07-01-2019 Hospit al WBC (Bld) 12: [facility] (81693) MCH (RBC) 36.0 pg (H) 27 - 31 pg 07-01-2019 Hospital [Entitic mass] 12: [facility] (59958) MCHC (RBC) 35.1 g/dL (no code) 32 - 36 g/dL 07-01-2019 Hospital [Mass/Vol] 12: [facility] (13960) MCV (RBC) 102.7 fL (H) 80 - 100 fL 07-01-2019 Hospital [Entitic vol] 12: [facility] () Methylenedioxyme Negative (no code) 07-01-2019 Hospital thamphetamine 12: [facility] Screen Ql (U) [facility] (61169) Monocytes (Bld) 0.9 10*3/uL (no code) 0.3 - 0.9 07-01-2019 Hosp ital [#/Vol] 10*3/uL 12: [facility] (70143) Monocytes/100 13.5 % (H) 2 - 8 % 07-01-2019 Hospital WBC (Bld) 12: [facility] (09622) Neutrophils 3.09 10*3/uL (no code) 1.7 - 7 10*3/uL 07-01-2019 H ospital (Bld) [#/Vol] 12: [facility] (40461) Neutrophils/100 46.2 % (no code) 40 - 60 % 07-01-2019 Hospit al WBC (Bld) 12: [facility] (67739) Nitrite Ql (U) Negative (no code) 07-01-2019 Hospital 12: [facility] (06361) Opiates Screen Negative (no code) 07-01-2019 Hospital Ql (U) 12: [facility] () Osmolality Calc 287 (no code) 07-01-2019 Hospital [Osmolality] 12: [facility] () Oxycodone Ql (U) Negative (no code) 07-01-2019 Hospital 12: [facility] () pH (U) 5.5 [pH] (no code) 4.6 - 8 [pH] 07-01-2019 Hospital 12: [facility] () Phencyclidine Ql Negative (no code) 07-01-2019 Hospital (U) 12: [facility] () Platelet mean 10.1 fL (H) 7.2 - 11.7 fL 07-01-2019 Hosp ital volume (Bld) 12: [facility] [Entitic vol] [facility] () Platelets (Bld) 203 10*3/uL (no code) 150 - 450 07-01-2019 Hosp ital [#/Vol] 10*3/uL 12: [facility] () Potassium 4.1 mmol/L (no code) 3.7 - 5.2 mmol/L 07-01-2019 Hosp ital [Moles/Vol] 12: [facility] () Propoxyphene Ql Negative (no code) 07-01-2019 Hospital (U) 12: [facility] () Protein (U) Negative (no code) 0 - 20 mg/dL 07-01-2019 Hospita l [Mass/Vol] 12: [facility] () Protein 7.4 g/dL (no code) 6.4 - 8.3 g/dL 07-01-2019 Hospita l [Mass/Vol] 12: [facility] () RBC (Bld) 3.72 10*6/uL (no code) 4.2 - 6.1 07-01-2019 Hospital [#/Vol] 10*6/uL 12:34-0400 [facility] (37185) RBC LM.HPF 0-2/HPF (A) 07-01-2019 Hospital (Urine sed) 12: [facility] [#/Area] [facility] (23667) Sodium 139 mmol/L (no code) 135 - 145 mmol/L 07-01-2019 Hosp ital [Moles/Vol] 12: [facility] (26419) Specific gravity <=1.005 (A) 07-01-2019 Hospital (U) [Rel 12: [facility] density] [facility] (68226) Tricyclic Negative (no code) 07-01-2019 Hospital antidepressants 12: [facility] Ql (U) [facility] (02193) Urea nitrogen 9 mg/dL (no code) 7 - 20 mg/dL 07-01-2019 Hospi arianna [Mass/Vol] 12: [facility] (58711) Urobilinogen Qn [id number] (A) 07-01-2019 Hospital (U) {Elvia'U}/dL 12: [facility] o f [facility] (29101) WBC (Bld) 6.69 10*3/uL (no code) 3.5 - 10.5 07-01-2019 Hospital [#/Vol] 10*3/uL 12: [facility] (88950) WBC LM.HPF 0-2/HPF (A) 07-01-2019 Hospital (Urine sed) 12: [facility] [#/Area] [facility] (78723) Yeast.budding Ql Yeast Present (no code) 07-01-2019 Hospita l (Urine sed) 12: [facility] (41972) laboratory on 2019-06-24 Albumin BCG dye 4.1 (no code) 06-24-2019 Hospital [Mass/Vol] 13: [facility] (25424) ALP [Catalytic 112 U/L (no code) 44 - 147 U/L 06-24-2019 Hosp ital activity/Vol] 13: [facility] (76884) ALT [Catalytic 33 U/L (no code) 4 - 40 U/L 06-24-2019 Hospit al activity/Vol] 13:00 [facility] () Amphetamines Ql Negative (no code) 06-24-2019 Hospital (U) 12: [facility] (73187) Anion gap 20 mmol/L (H) 3 - 11 mmol/L 06-24-2019 Hospital [Moles/Vol] 13: [facility] (34106) AST [Catalytic 58 U/L (H) 10 - 34 U/L 06-24-2019 Hospi arianna activity/Vol] 13: [facility] () Barbiturates Negative (no code) 06-24-2019 Hospital Screen Ql (U) 12: [facility] (00970) Basophils (Bld) 0.0 10*3/uL (no code) 0 - 0.3 10*3/uL 06-24-2019 Hospital [#/Vol] 13:00040 [facility] ([id number]) Basophils/100 0.70 % (no code) 0.5 - 1 % 06-24-2019 Hospital WBC (Bld) 13: [facility] () Benzodiazepine Negative (no code) 06-24-2019 Hospital metabolites 12:39 [facility] Screen Ql (U) [facility] ([id number]) Bilirubin 0.2 mg/dL (no code) 0.1 - 1.2 mg/dL 06-24-2019 Hospit al [Mass/Vol] 13: [facility] (30188) Calcium 8.3 mg/dL (no code) 8.5 - 10.2 mg/dL 06-24-2019 Hospi arianna [Mass/Vol] 13: [facility] () Carboxy Negative (no code) 06-24-2019 Hospital tetrahydrocannab 12:39 [facility] inol Ql (U) [facility] (88244) Chloride 100 mmol/L (no code) 95 - 106 mmol/L 06-24-2019 Hospi arianna [Moles/Vol] 13:00 [facility] (58157) Cocaine Ql (U) Negative (no code) 06-24-2019 Hospital 12:39 [facility] (34884) Creatinine 0.59 mg/dL (no code) 06-24-2019 Hospital [Mass/Vol] 13:00 [facility] (01722) Eosinophils 0.1 10*3/uL (no code) 0.05 - 0.5 06-24-2019 Hospita l (Bld) [#/Vol] 10*3/uL 13: [facility] (00091) Eosinophils/100 1.9 % (no code) 1 - 4 % 06-24-2019 Hospit al WBC (Bld) 13: [facility] (63121) Erythrocyte 11.7 % (no code) 11.6 - 14.6 % 06-24-2019 Hospit al distribution 13: [facility] width (RBC) [facility] [Ratio] ([id number]) Ethanol Ql (U) 384.80 (HH) 06-24-2019 Hospital 12:39 [facility] (44618) GFR/1.73 sq 102 (no code) 90 - 120 06-24-2019 Hospital M.predicted MDRD mL/min/{1.73_m2} mL/min/{1.73_m2} 13: [facility] (S/P/Bld) [Vol [facility] rate/Area] ([id number]) Globulin (S) 2.8 g/dL (no code) 2 - 3.5 g/dL 06-24-2019 Hospit al [Mass/Vol] 13: [facility] (60427) Glucose 85 mg/dL (no code) 60 - 125 mg/dL 06-24-2019 Hospita l [Mass/Vol] 13: [facility] (14874) HCO3 (P) 22 (no code) 06-24-2019 Hospital [Moles/Vol] 13: [facility] (00739) Hematocrit (Bld) 41.1 % (no code) 36.1 - 50.3 % 06-24-2019 H ospital [Volume 13:00 [facility] fraction] [facility] (59390) Hemoglobin (Bld) 14.2 g/dL (no code) 12.1 - 17.2 g/dL 06-24-2019 Hospital [Mass/Vol] 13:040 [facility] (83091) Lymphocytes 2.63 10*3/uL (no code) 0.9 - 2.9 06-24-2019 Hospita l (Bld) [#/Vol] 10*3/uL 13: [facility] (03569) Lymphocytes/100 44.4 % (no code) 20 - 40 % 06-24-2019 Hospit al WBC (Bld) : [facility] (99229) M. pneumoniae Ab Positive (A) 06-24-2019 Hospital Ql (S) : [facility] (31062) MCH (RBC) 35.3 pg (H) 27 - 31 pg 06-24-2019 Hospital [Entitic mass] 13:00040 [facility] (53160) MCHC (RBC) 34.5 g/dL (no code) 32 - 36 g/dL 06-24-2019 Hospital [Mass/Vol] 13:00040 [facility] (80703) MCV (RBC) 102.2 fL (H) 80 - 100 fL 06-24-2019 Hospital [Entitic vol] 13:00 [facility] (08731) Methylenedioxyme Negative (no code) 06-24-2019 Hospital thamphetamine 12:39 [facility] Screen Ql (U) [facility] (55937) Monocytes (Bld) 0.9 10*3/uL (no code) 0.3 - 0.9 06-24-2019 Hosp ital [#/Vol] 10*3/uL 13:00 [facility] (53349) Monocytes/100 15.5 % (H) 2 - 8 % 06-24-2019 Hospital WBC (Bld) 13:000 [facility] (69795) Neutrophils 2.23 10*3/uL (no code) 1.7 - 7 10*3/uL 06-24-2019 H ospital (Bld) [#/Vol] 13:00 [facility] (49537) Neutrophils/100 37.5 % (no code) 40 - 60 % 06-24-2019 Hospit al WBC (Bld) 13: [facility] (08569) Opiates Screen Negative (no code) 06-24-2019 Hospital Ql (U) 12: [facility] (46454) Osmolality Calc 283 (no code) 06-24-2019 Hospital [Osmolality] 13: [facility] (82508) Oxycodone Ql (U) Negative (no code) 06-24-2019 Hospital 12:39 [facility] (58343) Phencyclidine Ql Negative (no code) 06-24-2019 Hospital (U) 12:39040 [facility] (18782) Platelet mean 10.8 fL (H) 7.2 - 11.7 fL 06-24-2019 Hosp ital volume (Bld) 13: [facility] [Entitic vol] [facility] (24571) Platelets (Bld) 117 10*3/uL (L) 150 - 450 06-24-2019 Hosp ital [#/Vol] 10*3/uL 13:00 [facility] (44252) Potassium 3.9 mmol/L (no code) 3.7 - 5.2 mmol/L 06-24-2019 Hosp ital [Moles/Vol] 13: [facility] (99734) Propoxyphene Ql Negative (no code) 06-24-2019 Hospital (U) 12:39040 [facility] (54116) Protein 6.9 g/dL (no code) 6.4 - 8.3 g/dL 06-24-2019 Hospita l [Mass/Vol] 13: [facility] (23572) RBC (Bld) 4.02 10*6/uL (no code) 4.2 - 6.1 06-24-2019 Hospital [#/Vol] 10*6/uL 13:000400 [facility] (88721) Sodium 138 mmol/L (no code) 135 - 145 mmol/L 06-24-2019 Hosp ital [Moles/Vol] 13:000400 [facility] (07461) Tricyclic Negative (no code) 06-24-2019 Hospital antidepressants 12:39040 [facility] Ql (U) [facility] (17776) Urea nitrogen 7 mg/dL (no code) 7 - 20 mg/dL 06-24-2019 Hospi arianna [Mass/Vol] 13:00040 [facility] (60743) WBC (Bld) 5.93 10*3/uL (no code) 3.5 - 10.5 06-24-2019 Hospital [#/Vol] 10*3/uL 13:000400 [facility] (98634) not yet categorized on 2019-01-02 Urine Volume Urine Volume (no code) 01-02-2019 Hospital Sufficient 07:59-0500 [facility] (10mL) [facility] (15968) no information Urine Saved if (A) 01-02-2019 Hospital Culture Needed 07:59-0500 [facility] (48hrs from time [facility] of collection) (77807) laboratory on 2019-01-02 Albumin BCG dye 4.4 (no code) 01-02-2019 Hospital [Mass/Vol] 07:59-0500 [facility] (10643) ALP [Catalytic 88 U/L (no code) 44 - 147 U/L 01-02-2019 Hosp ital activity/Vol] 07:59-0500 [facility] (40322) ALT [Catalytic 30 U/L (no code) 4 - 40 U/L 01-02-2019 Hospit al activity/Vol] 07:59-0500 [facility] (34930) Anion gap 18 mmol/L (H) 3 - 11 mmol/L 01-02-2019 Hospital [Moles/Vol] 07:59-0500 [facility] (11727) AST [Catalytic 37 U/L (no code) 10 - 34 U/L 01-02-2019 Hospi arianna activity/Vol] 07:59-0500 [facility] (38886) Bacteria LM Ql Negative (no code) 01-02-2019 Hospital (Urine sed) 07:59-0500 [facility] (24385) Basophils (Bld) 0.1 10*3/uL (no code) 0 - 0.3 10*3/uL 01-02-2019 Hospital [#/Vol] 07:59-0500 [facility] (01340) Basophils/100 0.60 % (no code) 0.5 - 1 % 01-02-2019 Hospital WBC (Bld) 07:590500 [facility] (60682) Bilirubin 0.3 mg/dL (no code) 0.1 - 1.2 mg/dL 01-02-2019 Hospit al [Mass/Vol] 07:59-0500 [facility] (33126) Bilirubin N/A (A) 01-02-2019 Hospital Confirm Ql (U) 07:590500 [facility] (17689) Bilirubin Ql (U) Negative (no code) 01-02-2019 Hospital 07:590500 [facility] (09596) Calcium 9.4 mg/dL (no code) 8.5 - 10.2 mg/dL 01-02-2019 Hospi arianna [Mass/Vol] 07:59-0500 [facility] (72520) Chloride 102 mmol/L (no code) 95 - 106 mmol/L 01-02-2019 Hospi arianna [Moles/Vol] 07:59-0500 [facility] (39195) Clarity (U) Clear (no code) 01-02-2019 Hospital 07:590500 [facility] (44049) Color (U) Yellow (no code) 01-02-2019 Hospital 07:59-0500 [facility] (27457) Creatinine 0.60 mg/dL (no code) 01-02-2019 Hospital [Mass/Vol] 07:590500 [facility] (35452) Eosinophils 0.1 10*3/uL (no code) 0.05 - 0.5 01-02-2019 Hospita l (Bld) [#/Vol] 10*3/uL 07:59-0500 [facility] (22732) Eosinophils/100 1.8 % (no code) 1 - 4 % 01-02-2019 Hospit al WBC (Bld) 07:59-0500 [facility] (01085) Epithelial 0-5/HPF (A) 01-02-2019 Hospital cells.squamous 07:59-0500 [facility] LM.HPF (Urine [facility] sed) [#/Area] (05054) Erythrocyte 12.5 % (no code) 11.6 - 14.6 % 01-02-2019 Hospit al distribution 07:590500 [facility] width (RBC) [facility] [Ratio] (04163) GFR/1.73 sq 100 (no code) 90 - 120 01-02-2019 Hospital M.predicted MDRD mL/min/{1.73_m2} mL/min/{1.73_m2} 07:590500 [facility] (S/P/Bld) [Vol [facility] rate/Area] (65052) Globulin (S) 3.3 g/dL (no code) 2 - 3.5 g/dL 01-02-2019 Hospit al [Mass/Vol] 07:590500 [facility] (12678) Glucose 94 mg/dL (no code) 60 - 125 mg/dL 01-02-2019 Hospita l [Mass/Vol] 07:59-0500 [facility] (82494) Glucose Test Negative (no code) 01-02-2019 Hospital strip (U) 07:590500 [facility] [Mass/Vol] [facility] (14381) HCO3 (P) 24 (no code) 01-02-2019 Hospital [Moles/Vol] 07:590500 [facility] (76853) Hematocrit (Bld) 42.9 % (no code) 36.1 - 50.3 % 01-02-2019 H ospital [Volume 07:590500 [facility] fraction] [facility] (92002) Hemoglobin (Bld) 14.5 g/dL (no code) 12.1 - 17.2 g/dL 01-02-2019 Hospital [Mass/Vol] 07:59-0500 [facility] (04393) Hemoglobin Ql Negative (no code) 01-02-2019 Hospital (U) 07:59-0500 [facility] (07543) Ketones (U) Negative (no code) 01-02-2019 Hospital [Mass/Vol] 07:59-0500 [facility] (76249) Leukocyte Negative (no code) 01-02-2019 Hospital esterase Test 07:59-0500 [facility] strip Ql (U) [facility] (35711) Lymphocytes 2.47 10*3/uL (no code) 0.9 - 2.9 01-02-2019 Hospita l (Bld) [#/Vol] 10*3/uL 07:59-0500 [facility] (62024) Lymphocytes/100 31.3 % (no code) 20 - 40 % 01-02-2019 Hospit al WBC (Bld) 07:59-0500 [facility] (73845) MCH (RBC) 34.4 pg (H) 27 - 31 pg 01-02-2019 Hospital [Entitic mass] 07:59-0500 [facility] (61818) MCHC (RBC) 33.8 g/dL (no code) 32 - 36 g/dL 01-02-2019 Hospital [Mass/Vol] 07:59-0500 [facility] (79152) MCV (RBC) 101.9 fL (H) 80 - 100 fL 01-02-2019 Hospital [Entitic vol] 07:59-0500 [facility] (77013) Monocytes (Bld) 0.9 10*3/uL (no code) 0.3 - 0.9 01-02-2019 Hosp ital [#/Vol] 10*3/uL 07:59-0500 [facility] (86776) Monocytes/100 11.3 % (no code) 2 - 8 % 01-02-2019 Hospital WBC (Bld) 07:59-0500 [facility] (21353) Neutrophils 4.35 10*3/uL (no code) 1.7 - 7 10*3/uL 01-02-2019 H ospital (Bld) [#/Vol] 07:590500 [facility] (43696) Neutrophils/100 55.0 % (no code) 40 - 60 % 01-02-2019 Hospit al WBC (Bld) 07:590500 [facility] (99926) Nitrite Ql (U) Negative (no code) 01-02-2019 Hospital 07:590500 [facility] (84107) Osmolality Calc 287 (no code) 01-02-2019 Hospital [Osmolality] 07:590500 [facility] (19817) pH (U) 6.0 [pH] (no code) 4.6 - 8 [pH] 01-02-2019 Hospital 07:590500 [facility] (83707) Platelet mean 11.8 fL (H) 7.2 - 11.7 fL 01-02-2019 Hosp ital volume (Bld) 07:590500 [facility] [Entitic vol] [facility] (59520) Platelets (Bld) 152 10*3/uL (no code) 150 - 450 01-02-2019 Hosp ital [#/Vol] 10*3/uL 07:590500 [facility] (07262) Potassium 3.8 mmol/L (no code) 3.7 - 5.2 mmol/L 01-02-2019 Hosp ital [Moles/Vol] 07:590500 [facility] (75155) Protein (U) Negative (no code) 0 - 20 mg/dL 01-02-2019 Hospita l [Mass/Vol] 07:590500 [facility] (23758) Protein 7.7 g/dL (no code) 6.4 - 8.3 g/dL 01-02-2019 Hospita l [Mass/Vol] 07:590500 [facility] (18686) RBC (Bld) 4.21 10*6/uL (no code) 4.2 - 6.1 01-02-2019 Hospital [#/Vol] 10*6/uL 07:59-0500 [facility] (26241) RBC LM.HPF Negative (no code) 0 - 4 /[HPF] 01-02-2019 Hospital (Urine sed) 07:590500 [facility] [#/Area] [facility] (48569) Sodium 140 mmol/L (no code) 135 - 145 mmol/L 01-02-2019 Hosp ital [Moles/Vol] 07:590500 [facility] (91764) Specific gravity 1.010 (no code) 01-02-2019 Hospital (U) [Rel 07:590500 [facility] density] [facility] (56147) Urea nitrogen 7 mg/dL (no code) 7 - 20 mg/dL 01-02-2019 Hospi arianna [Mass/Vol] 07:590500 [facility] (71393) Urobilinogen Qn [id number] (A) 01-02-2019 Hospital (U) {Elvia'U}/dL 07:590500 [facility] (78886) WBC (Bld) 7.90 10*3/uL (no code) 3.5 - 10.5 01-02-2019 Hospital [#/Vol] 10*3/uL 07:59-0500 [facility] (04613) WBC LM.HPF Negative (no code) 0 - 5 /[HPF] 01-02-2019 Hospital (Urine sed) 07:590500 [facility] [#/Area] [facility] (24494) Yeast.budding Ql No Yeast present (no code) 01-02-2019 Hosp ital (Urine sed) 07:590500 [facility] (69965) laboratory on 2018-12-15 Albumin 4.8 g/dL (N) 3.4 - 5.4 g/dL [facility] [Mass/Vol] [facility] (05626) Albumin/Globulin 1.9 {ratio} (N) 1 - 2.5 {ratio} [facility] [Mass ratio] [facility] (82219) ALP [Catalytic 91 U/L (N) 44 - 147 U/L [facility] activity/Vol] [facility] (78155) ALT [Catalytic 21 U/L (N) 4 - 40 U/L [facility] activity/Vol[facility] (04159) AST [Catalytic 28 U/L (N) 10 - 34 U/L [facility] activity/Vol] [facility] (17089) Bilirubin 0.3 mg/dL (N) 0.1 - 1.2 mg/dL [facility] [Mass/Vol] [facility] (20864) Calcium 9.3 mg/dL (N) 8.5 - 10.2 mg/dL [facility] [Mass/Vol] [facility] (64441) Chloride 102 mmol/L (N) 95 - 106 mmol/L [facility] [Moles/Vol] [facility] (06004) CO2 [Moles/Vol] 27 mmol/L (N) 23 - 29 mmol/L [facility] (15975) Creatinine 0.52 mg/dL (N) [facility] [Mass/Vol] [facility] (52818) GFR/1.73 sq M 117 (N) 90 - 120 [facility] predicted among mL/min/{1.73_m2} mL/min/{1.73_m2} [facility] blacks MDRD [facility] (S/P/Bld) [Vol (52500) rate/Area] GFR/1.73 sq 101 (N) 90 - 120 [facility] th M.predicted MDRD mL/min/{1.73_m2} mL/min/{1.73_m2} [facility] (S/P/Bld) [Vol [facility] rate/Area] (31757) Globulin (S) 2.5 g/dL (N) 2 - 3.5 g/dL [facility] ealt [Mass/Vol] [facility] (50477) Glucose 66 mg/dL (N) 60 - 125 mg/dL [facility] [Mass/Vol] [facility] (44334) Potassium 4.5 mmol/L (N) 3.7 - 5.2 mmol/L [facility] [Moles/Vol] [facility] (13152) Protein 7.3 g/dL (N) 6.4 - 8.3 g/dL [facility] [Mass/Vol] [facility] (28293) Sodium 138 mmol/L (N) 135 - 145 mmol/L [facility] [Moles/Vol] [facility] (41158) Urea nitrogen 11 mg/dL (N) 7 - 20 mg/dL [facility] [Mass/Vol] [facility] (77223) Urea NOT APPLICABLE (no code) [facility] nitrogen/Creatin [facility] [Mass ratio] [facility] (83989) urinalysis on 2018-08-02 Amphetamines Ql Negative (no code) 08-02-2018 Hospital (U) 20:43-0400 [facility] (74995) Barbiturates Negative (no code) 08-02-2018 Hospital Screen Ql (U) 20:43-0400 [facility] (75565) Clarity (U) Clear (no code) 08-02-2018 Hospital 20:43-0400 [facility] (86358) Cocaine Ql (U) Negative (no code) 08-02-2018 Hospital 20:43-0400 [facility] (96945) Color (U) Yellow (no code) 08-02-2018 Hospital 20:43-0400 [facility] (85911) Epithelial 0-5/HPF (A) 08-02-2018 Hospital cells.squamous 20:43-0400 [facility] LM.HPF (Urine [facility] sed) [#/Area] (89418) Leukocyte Negative (no code) 08-02-2018 Hospital esterase Test 20:43-0400 [facility] strip Ql (U) [facility] (07405) Phencyclidine Ql Negative (no code) 08-02-2018 Hospital (U) 20:43-0400 [facility] (91535) Protein (U) Negative (no code) 0 - 20 mg/dL 08-02-2018 Hospita l [Mass/Vol] 20:43-0400 [facility] (04562) RBC LM.HPF Negative (no code) 0 - 4 /[HPF] 08-02-2018 Hospital (Urine sed) 20:43-0400 [facility] [#/Area] [facility] (57456) Specific gravity <=1.005 (A) 08-02-2018 Hospital (U) [Rel 20:43-0400 [facility] density] [facility] (38338) WBC LM.HPF Nothing Seen on (no code) 08-02-2018 Hospital (Urine sed) Microscopic 20:43-0400 [facility] [#/Area] [facility] (52893) other on 2018-08-02 Albumin BCG dye 4.7 (no code) 08-02-2018 Hospital [Mass/Vol] 19:37-0400 [facility] (56917) Bacteria LM Ql Negative (no code) 08-02-2018 Hospital (Urine sed) 20:43-0400 [facility] (65493) Benzodiazepine Negative (no code) 08-02-2018 Hospital metabolites 20:43-0400 [facility] Screen Ql (U) [facility] (09708) Bilirubin N/A (A) 08-02-2018 Hospital Confirm Ql (U) 20:43-0400 [facility] (03278) Bilirubin Ql (U) Negative (no code) 08-02-2018 Hospital 20:43-0400 [facility] (64176) Carboxy Negative (no code) 08-02-2018 Hospital tetrahydrocannab 20:43-0400 [facility] inol Ql (U) [facility] (88147) CK [Catalytic 65 U/L (no code) 08-02-2018 Hospital activity/Vol] 19:42-0400 [facility] (85759) Electrocardiogra Complete (no code) 08-02-2018 Hospital ms recorded 19:42-0400 [facility] (67891) Erythrocyte 12.4 % (no code) 11.6 - 14.6 % 08-02-2018 Hospit al distribution 19:37-0400 [facility] width (RBC) [facility] [Ratio] (59364) Ethanol Ql (U) 281.60 (HH) 08-02-2018 Hospital 20:43-0400 [facility] (42172) Gamma glutamyl 80 U/L (H) 0 - 30 U/L 08-02-2018 Hospit al transferase 19:53-0400 [facility] [Catalytic [facility] activity/Vol] (03042) GFR/1.73 sq 99 (no code) 90 - 120 08-02-2018 Hospital M.predicted MDRD mL/min/{1.73_m2} mL/min/{1.73_m2} 19:37-0400 [facility] (S/P/Bld) [Vol [facility] rate/Area] (47470) Globulin (S) 2.7 g/dL (no code) 2 - 3.5 g/dL 08-02-2018 Hospit al [Mass/Vol] 19:37-0400 [facility] (20650) Glucose Test Negative (no code) 08-02-2018 Hospital strip (U) 20:43-0400 [facility] [Mass/Vol] [facility] (04170) HCO3 (P) 20 (L) 08-02-2018 Hospital [Moles/Vol] 19:37-0400 [facility] (18316) Hemoglobin Ql Negative (no code) 08-02-2018 Hospital (U) 20:43-0400 [facility] (86508) Ketones (U) Negative (no code) 08-02-2018 Hospital [Mass/Vol] 20:43-0400 [facility] (60009) MCHC (RBC) 34.2 g/dL (no code) 32 - 36 g/dL 08-02-2018 Hospital [Mass/Vol] 19:37-0400 [facility] (28245) Methylenedioxyme Negative (no code) 08-02-2018 Hospital thamphetamine 20:43-0400 [facility] Screen Ql (U) [facility] (59214) Nitrite Ql (U) Negative (no code) 08-02-2018 Hospital 20:43-0400 [facility] (30450) Opiates Screen Negative (no code) 08-02-2018 Hospital Ql (U) 20:43-0400 [facility] (83454) Osmolality Calc 276 (L) 08-02-2018 Hospital [Osmolality] 19:37-0400 [facility] (47194) Oxycodone Ql (U) Negative (no code) 08-02-2018 Hospital 20:430400 [facility] (66208) pH (U) 5.5 [pH] (no code) 4.6 - 8 [pH] 08-02-2018 Hospital 20:430400 [facility] (48018) Platelet mean 11.4 fL (H) 7.2 - 11.7 fL 08-02-2018 Hosp ital volume (Bld) 19:37 [facility] [Entitic vol] [facility] (36471) Propoxyphene Ql Negative (no code) 08-02-2018 Hospital (U) 20:43040 [facility] (69236) Tricyclic Negative (no code) 08-02-2018 Hospital antidepressants 20:430400 [facility] Ql (U) [facility] (65221) Urine Volume Urine Volume (no code) 08-02-2018 Hospital Sufficient 20:430400 [facility] (10mL) [facility] (89512) Urobilinogen Qn 0.2 (no code) 08-02-2018 Hospital (U) 20:430400 [facility] (00073) Yeast.budding Ql No Yeast present (no code) 08-02-2018 Hosp ital (Urine sed) 20:430400 [facility] (60872) no information Urine Saved if (A) 08-02-2018 Hospital Culture Needed 20:430400 [facility] (48hrs from time [facility] of collection) ([id number]) metabolic panel on 2018-08-02 ALP [Catalytic 81 U/L (no code) 44 - 147 U/L 08-02-2018 Hosp ital activity/Vol] 19:370400 [facility] (86529) ALT [Catalytic 33 U/L (no code) 4 - 40 U/L 08-02-2018 Hospit al activity/Vol] 19:37040 [facility] (13890) Anion gap 18 mmol/L (H) 3 - 11 mmol/L 08-02-2018 Hospital [Moles/Vol] 19:370400 [facility] (68507) AST [Catalytic 36 U/L (no code) 10 - 34 U/L 08-02-2018 Hospi arianna activity/Vol] 19:370400 [facility] (88009) Bilirubin 0.5 mg/dL (no code) 0.1 - 1.2 mg/dL 08-02-2018 Hospit al [Mass/Vol] 19:370400 [facility] () Calcium 9.5 mg/dL (no code) 8.5 - 10.2 mg/dL 08-02-2018 Hospi arianna [Mass/Vol] 19:370400 [facility] () Chloride 100 mmol/L (no code) 95 - 106 mmol/L 08-02-2018 Hospi arianna [Moles/Vol] 19:37040 [facility] () Creatinine 0.61 mg/dL (no code) 08-02-2018 Hospital [Mass/Vol] 19:370400 [facility] () Glucose 107 mg/dL (no code) 60 - 125 mg/dL 08-02-2018 Hospita l [Mass/Vol] 19:370400 [facility] (32090) Magnesium 2.8 mg/dL (H) 1.7 - 2.2 mg/dL 08-02-2018 Hospit al [Mass/Vol] 19:420400 [facility] () Potassium 3.6 mmol/L (no code) 3.7 - 5.2 mmol/L 08-02-2018 Hosp ital [Moles/Vol] 19:37-0400 [facility] (46268) Protein 7.4 g/dL (no code) 6.4 - 8.3 g/dL 08-02-2018 Hospita l [Mass/Vol] 19:37-0400 [facility] (86127) Sodium 134 mmol/L (no code) 135 - 145 mmol/L 08-02-2018 Hosp ital [Moles/Vol] 19:370400 [facility] (46344) Urea nitrogen 8 mg/dL (no code) 7 - 20 mg/dL 08-02-2018 Hospi arianna [Mass/Vol] 19:37-0400 [facility] (55983) hematology on 2018-08-02 Basophils (Bld) 0.1 10*3/uL (no code) 0 - 0.3 10*3/uL 08-02-2018 Hospital [#/Vol] 19:37-0400 [facility] (63182) Basophils/100 0.80 % (no code) 0.5 - 1 % 08-02-2018 Hospital WBC (Bld) 19:37-0400 [facility] ([id number]) Eosinophils 0.0 10*3/uL (no code) 0.05 - 0.5 08-02-2018 Hospita l (Bld) [#/Vol] 10*3/uL 19:37-0400 [facility] ([id number]) Eosinophils/100 0.3 % (no code) 1 - 4 % 08-02-2018 Hospit al WBC (Bld) 19:37-0400 [facility] ([id number]) Hematocrit (Bld) 43.9 % (no code) 36.1 - 50.3 % 08-02-2018 [facility]ital [Volume 19:37-0400 [facility] ([id number]) Hemoglobin (Bld) 15.0 g/dL (no code) 12.1 - 17.2 g/dL 08-02-2018 Hospital [Mass/Vol] 19:37-0400 [facility] ([id number]) Lymphocytes 2.74 10*3/uL (no code) 0.9 - 2.9 08-02-2018 Hospita l (Bld) [#/Vol] 10*3/uL 19:37-0400 [facility] ([id number]) Lymphocytes/100 30.0 % (no code) 20 - 40 % 08-02-2018 Hospit al WBC (Bld) 19:37-0400 [facility] ([id number]) MCH (RBC) 34.0 pg (H) 27 - 31 pg 08-02-2018 Hospital [Entitic mass] 19:370400 [facility] ([id number]) MCV (RBC) 99.5 fL (H) 80 - 100 fL 08-02-2018 Hospital [Entitic vol] 19:370400 [facility] ([id number]) Monocytes (Bld) 0.8 10*3/uL (no code) 0.3 - 0.9 08-02-2018 Hosp ital [#/Vol] 10*3/uL 19:37 [facility] ([id number]) Monocytes/100 8.8 % (no code) 2 - 8 % 08-02-2018 Hospital WBC (Bld) 19:37 [facility] ([id number]) Neutrophils 5.50 10*3/uL (no code) 1.7 - 7 10*3/uL 08-02-2018 H ospital (Bld) [#/Vol] 19:37040 [facility] ([id number]) Neutrophils/100 60.1 % (no code) 40 - 60 % 08-02-2018 Hospit al WBC (Bld) 19:37 [facility] ([id number]) Platelets (Bld) 100 Result (L) 08-02-2018 Hospital [#/Vol] Verified by 19:37 [facility] ([id number]) RBC (Bld) 4.41 10*6/uL (no code) 4.2 - 6.1 08-02-2018 Hospital [#/Vol] 10*6/uL 19:37 [facility] ([id number]) WBC (Bld) 9.14 10*3/uL (no code) 3.5 - 10.5 08-02-2018 Hospital [#/Vol] 10*3/uL 19:370400 [facility] ([id number]) cardiac on 2018-08-02 CK.MB [Mass/Vol] 1.3 ng/mL (no code) 0 - 4.3 ng/mL 08-02-2018 H ospital [id number] [facility] ([id number]) Myoglobin 20.4 ng/mL (no code) 08-02-2018 Hospital [Mass/Vol] 19:42 [facility] ([id number]) Troponin ng/mL (no code) 0 - 0.4 ng/mL 08-02-2018 Hospital .cardiac 19:42-0400 [facility] [Mass/Vol] [facility] (10299) venous blood hemoglobin measurement (mass/volume) on 2017-10-10 Hemoglobin mass 14.6 g/dL (no code) 12.1 - 17.2 g/dL Via [facility] conc (Bld) [facility] (15209) urine urobilinogen measurement by automated test strip (mass/volume) on 2017-10-10 Urobilinogen NORMAL (no code) Via [facility] Test strip n [facility] ([facility] (69299) urine total bilirubin detection by test strip on 2017-10-10 Bilirubin Ql (U) Negative (no code) Via [facility] () urine protein assay by test strip, semi-quantitativ e on 2017-10-10 Protein Test Negative (no code) Via [facility] strip ([facility] () urine ph measurement by test strip on 2017-10-10 pH Test strip 7 [pH] (no code) 4.6 - 8 [pH] Via [facility] () [facility] (18657) urine nitrite detection by test strip on 2017-10-10 Nitrite Test Negative (no code) Via [facility] strip ([facility] () urine ketones detection by automated test strip on 2017-10-10 Ketones Negative (no code) Via [facility] Automated test Hospital strip ([facility] ([id number]) urine glucose detection by automated test strip on 2017-10-10 Glucose Negative (no code) Via [facility] Automated test Hospital strip ([facility] (34287) urine color determination on 2017-10-10 Color Nom (U) YELLOW (no code) Via [facility] (85418) urine clarity determination on 2017-10-10 Clarity Nom (U) CLEAR (no code) Via [facility] (98855) specific gravity of urine by test strip on 2017-10-10 Specific gravity 1.005 (*) Via [facility] Relative Density [facility] ([facility] (65392) serum or plasma urea nitrogen/creatin ine mass ratio on 2017-10-10 Urea 18 mg/mg (no code) 6 - 22 mg/mg Via [facility] nitrogen/Creatin [facility] ine mass ratio [place] (18482) serum or plasma urea nitrogen measurement (mass/volume) on 2017-10-10 Urea nitrogen 10 mg/dL (no code) 7 - 20 mg/dL Via [facility] (08998) serum or plasma total bilirubin measurement (mass/volume) on 2017-10-10 Bilirubin mass 0.3 mg/dL (no code) 0.1 - 1.2 mg/dL Via [facility] (70535) serum or plasma sodium measurement (moles/volume) on 2017-10-10 Sodium molar 134 mmol/L (L) 135 - 145 mmol/L Via [facility] (56423) serum or plasma protein measurement (mass/volume) on 2017-10-10 Protein mass 7.2 g/dL (no code) 6.4 - 8.3 g/dL Via [facility] (57085) serum or plasma potassium measurement (moles/volume) on 2017-10-10 Potassium molar 3.7 mmol/L (no code) 3.7 - 5.2 mmol/L Via [facility] (67289) serum or plasma glucose measurement (mass/volume) on 2017-10-10 Glucose mass 89 mg/dL (no code) 60 - 125 mg/dL Via [facility] () serum or plasma creatinine measurement with calculation of estimated glomerular filtration rate on 2017-10-10 GFR/1.73 sq M no information (no code) Via [facility] non-blacks MDRD [place] vol rate/area () (S/P/Bld) serum or plasma creatinine measurement (mass/volume) on 2017-10-10 Creatinine mass 0.57 mg/dL (L) Via [facility] (27449) serum or plasma chloride measurement (moles/volume) on 2017-10-10 Chloride molar 101 mmol/L (no code) 95 - 106 mmol/L Via [facility] (49087) serum or plasma calcium measurement (mass/volume) on 2017-10-10 Calcium mass 9.0 mg/dL (no code) 8.5 - 10.2 mg/dL Via [facility] ([id number]) serum or plasma aspartate aminotransferase measurement (enzymatic activity/volume) on 2017-10-10 AST enzyme 20 U/L (no code) 10 - 34 U/L Via [facility] act/[facility] (68472) serum or plasma anion gap determination (moles/volume) on 2017-10-10 Anion gap 3 10 mmol/L (no code) 3 - 11 mmol/L Via [facility] molar conc [facility] (92838) serum or plasma alkaline phosphatase measurement (enzymatic activity/volume) on 2017-10-10 ALP enzyme 77 U/L (no code) 44 - 147 U/L Via [facility] act/[facility] (29964) serum or plasma albumin measurement (mass/volume) on 2017-10-10 Albumin mass 4.6 g/dL (H) 3.4 - 5.4 g/dL Via [facility] (26192) serum or plasma alanine aminotransferase measurement (enzymatic activity/volume) on 2017-10-10 ALT enzyme 13 U/L (no code) 4 - 40 U/L Via [facility] (53957) mucus detection in urine sediment by light microscopy on 2017-10-10 Mucus LM Ql Negative (no code) Via [facility] (Urine sed) [facility] (78185) leukocyte esterase on 2017-10-10 Leukocyte Negative (no code) Via [facility] esterase Test Hospital strip Ql (U) [place] (09515) erythrocytes detection in urine sediment by light microscopy on 2017-10-10 RBC LM Ql (Urine Negative (no code) Via [facility] sed) [facility] (13144) crystals detection in urine sediment by light microscopy on 2017-10-10 Crystals LM Ql NONE (no code) Via [facility] (Urine sed) [facility] (32877) complete urinalysis with reflex to culture on 2017-10-10 Complete NO (no code) Via [facility] urinalysis with Hospital reflex to [place] culture (05473) casts detection in urine sediment by light microscopy on 2017-10-10 Casts LM Ql NONE (no code) Via [facility] (Urine sed) [facility] (42741) carbon dioxide on 2017-10-10 CO2 molar conc 23 mmol/L (no code) 23 - 29 mmol/L Via [facility] (39334) blood neutrophils automated count (number/volume) on 2017-10-10 Neutrophils Auto 5.5 10*3/uL (no code) 1.7 - 7 10*3/uL Via [facility] #/vol (Bld) [facility] (63493) blood monocytes/100 leukocytes on 2017-10-10 Monocytes/100 10 % (no code) 2 - 8 % Via [facility] WBC Auto (Bld) [facility] (63624) blood monocytes automated count (number/volume) on 2017-10-10 Monocytes Auto 1.1 10*3/uL (H) 0.3 - 0.9 Via [facility] #/vol (Bld) 10*3/uL [facility] (95291) blood lymphocytes automated count (number/volume) on 2017-10-10 Lymphocytes Auto 3.7 10*3/uL (no code) 0.9 - 2.9 Via ti #/vol (Bld) 10*3/uL [facility] (79187) blood leukocytes automated count (number/volume) on 2017-10-10 WBC Auto #/vol 10.4 10*3/uL (no code) 3.5 - 10.5 Via [facility] i (Bld) 10*3/uL [facility] (35761) blood hematocrit (volume fraction) on 2017-10-10 Hematocrit Auto 42 % (no code) 36.1 - 50.3 % Via [facility] isti Volume Fraction [facility] ([facility]) [place] () blood erythrocytes automated count (number/volume) on 2017-10-10 RBC Auto #/vol 4.20 10*6/uL (L) 4.2 - 6.1 Via [facility] i (Bld) 10*6/uL [facility] (24314) bacteria detection in urine sediment by light microscopy on 2017-10-10 Bacteria LM Ql Negative (no code) Via [facility] (Urine sed) [facility] (39973) automated urine sediment leukocyte count by microscopy (number/high power field) on 2017-10-10 WBC LM.HPF NONE (no code) Via [facility] #/area (Urine Hospital sed) [place] (42422) automated urine sediment erythrocyte count by microscopy (number/high power field) on 2017-10-10 RBC LM.HPF NONE (no code) Via [facility] #/area (Urine Hospital sed) [place] (06564) automated erythrocyte mean corpuscular volume on 2017-10-10 MCV Auto Entitic 100 fL (H) 80 - 100 fL Via Chri sti volume (RBC) [facility] (15892) automated erythrocyte mean corpuscular hemoglobin concentration measurement (mass/volume) on 2017-10-10 MCHC Auto mass 35 g/dL (no code) 32 - 36 g/dL Via ti conc (RBC) [facility] (69554) automated erythrocyte mean corpuscular hemoglobin (mass per erythrocyte) on 2017-10-10 MCH Auto Entitic 35 pg (H) 27 - 31 pg Via ti mass (RBC) [facility] (27574) automated erythrocyte distribution width ratio on 2017-10-10 Erythrocyte 12.7 % (no code) 11.6 - 14.6 % Via [facility] distribution Hospital width Auto Ratio [place] (RBC) (70574) automated eosinophil count on 2017-10-10 Eosinophils Auto 0.1 10*3/uL (no code) 0.05 - 0.5 Via ti #/vol (Bld) 10*3/uL [facility] (04217) automated blood platelet mean volume measurement on 2017-10-10 Platelet mean 9.6 fL (no code) 7.2 - 11.7 fL Via ti volume Auto Hospital Entitic volume [place] (Bld) (31329) automated blood platelet count (count/volume) on 2017-10-10 Platelets Auto 276 10*3/uL (no code) 150 - 450 Via [facility] #/vol (Bld) 10*3/uL [facility] (18302) automated blood neutrophils/100 leukocytes on 2017-10-10 Neutrophils/100 53 % (no code) 40 - 60 % Via [facility] WBC Auto (Bld) [facility] (46884) automated blood lymphocytes/100 leukocytes on 2017-10-10 Lymphocytes/100 36 % (no code) 20 - 40 % Via [facility] WBC Auto (Bld) [facility] (39933) automated blood eosinophils/100 leukocytes on 2017-10-10 Eosinophils/100 1 % (no code) 1 - 4 % Via [facility] WBC Auto (Bld) [facility] (18161) automated blood basophils/100 leukocytes on 2017-10-10 Basophils/100 1 % (no code) 0.5 - 1 % Via [facility] WBC Auto (Bld) [facility] (10159) automated blood basophil count (count/volume) on 2017-10-10 Basophils Auto 0.1 10*3/uL (no code) 0 - 0.3 10*3/uL Via Ch risti #/vol (Bld) [facility] (06998) urinalysis on 2017-10-03 Bacteria LM.HPF Negative (no code) 10-03-2017 Hospital #/area (Urine 17:0 [facility] sed) [facility] (79525) Barbiturates Negative (no code) 10-03-2017 Hospital Screen Ql (U) 17: [facility] (74947) Bilirubin Ql (U) Negative (no code) 10-03-2017 Hospital 17:0400 [facility] (11512) Bilirubin Ql (U) 0.3 (no code) 10-03-2017 Hospital 17:0 [facility] (88344) Clarity Nom (U) Clear (no code) 10-03-2017 Hospital 17:0 [facility] (35163) Color Nom (U) Straw (no code) 10-03-2017 Hospital 17:0400 [facility] (42592) Epithelial 0-5/HPF (A) 10-03-2017 Hospital cells.squamous 17: [facility] LM.HPF #/area [facility] (Urine sed) (78243) Hemoglobin Test Negative (no code) 10-03-2017 Hospital strip Ql (U) 17:0 [facility] (52987) Leukocyte Negative (no code) 10-03-2017 Hospital esterase Test 17: [facility] strip Ql (U) [facility] (56353) Nitrite Test Negative (no code) 10-03-2017 Hospital strip Ql (U) 17:0400 [facility] (62833) pH Test strip 5.5 [pH] (no code) 4.6 - 8 [pH] 10-03-2017 Hospi arianna (U) 17: [facility] (53656) Phencyclidine Ql Negative (no code) 10-03-2017 Hospital (U) 17: [facility] (49171) Protein mass Negative (no code) 0 - 20 mg/dL 10-03-2017 Hospit al conc (U) 17:0400 [facility] (07057) RBC LM.HPF Negative (no code) 0 - 4 /[HPF] 10-03-2017 Hospital #/area (Urine 17:23-0400 [facility] sed) [facility] (31266) Specific gravity <=1.005 (A) 10-03-2017 Hospital Relative Density 17:0400 [facility] (U) [facility] (97190) Urobilinogen 0.2 (A) 0.2 - 1 10-03-2017 Hospital Test strip Qn {Elvia'U}/dL {Elvia'U}/dL 17: [facility] of (U) [facility] (49131) WBC LM.HPF Rare/HPF (A) 10-03-2017 Hospital #/area (Urine 17:0 [facility] sed) [facility] (35212) other on 2017-10-03 Acetaminophen <0 (L) 10-03-2017 Hospital mass conc 17:0400 [facility] (68425) AMP Negative (no code) 10-03-2017 Hospital 17:0400 [facility] (06572) BZO Negative (no code) 10-03-2017 Hospital 17:0400 [facility] (46949) TRAVIS Negative (no code) 10-03-2017 Hospital 17: [facility] (69498) Globulin 1.8 g/dL (L) 2 - 3.5 g/dL 10-03-2017 Hospital Calculated mass 17:0400 [facility] conc (S) [facility] (45851) Glucose. Negative (no code) 10-03-2017 Hospital 17:0400 [facility] (51373) Icto N/A (A) 10-03-2017 Hospital 17:040 [facility] (68093) Ketones mass Negative (no code) 10-03-2017 Hospital conc (U) 17:040 [facility] (20299) MDMA Negative (no code) 10-03-2017 Hospital 17:230400 [facility] (42319) OPI Negative (no code) 10-03-2017 Hospital 17:0 [facility] (72801) OXY Negative (no code) 10-03-2017 Hospital 17: [facility] (62908) PPX Negative (no code) 10-03-2017 Hospital 17:0 [facility] (44184) Salicylates mass <50 (no code) 10-03-2017 Hospital conc 17: [facility] (45456) TCA Negative (no code) 10-03-2017 Hospital 17: [facility] (38514) THC Negative (no code) 10-03-2017 Hospital 17: [facility] (47641) Urine Volume Urine Volume (no code) 10-03-2017 Hospital Sufficient 17: [facility] (10mL) [facility] (03939) Urine Yeast No Yeast present (no code) 10-03-2017 Hospital 17: [facility] (39874) no information Urine Saved if (A) 10-03-2017 Hospital Culture Needed 17: [facility] (48hrs from time [facility] of collection) (40389) metabolic panel on 2017-10-03 Albumin mass 4.7 g/dL (no code) 3.4 - 5.4 g/dL 10-03-2017 Hosp ital conc 17: [facility] (27766) ALP enzyme 82 U/L (no code) 44 - 147 U/L 10-03-2017 Hospital act/vol 17: [facility] (65630) ALT enzyme 13 U/L (no code) 4 - 40 U/L 10-03-2017 Hospital act/vol 17: [facility] (39743) Anion gap 3 19 mmol/L (H) 3 - 11 mmol/L 10-03-2017 Hospit al molar conc 17: [facility] (69557) AST enzyme 21 U/L (no code) 10 - 34 U/L 10-03-2017 Hospital act/vol 17: [facility] (42683) Calcium mass 9.2 mg/dL (no code) 8.5 - 10.2 mg/dL 10-03-2017 Ho spital conc 17: [facility] (27816) Chloride molar 101 mmol/L (no code) 95 - 106 mmol/L 10-03-2017 Hospital conc 17: [facility] (25353) CO2 molar conc 21 mmol/L (L) 23 - 29 mmol/L 10-03-2017 Ho spital 17: [facility] (74648) Creatinine mass 0.60 mg/dL (no code) 10-03-2017 Hospital conc 17: [facility] (86492) GFR/1.73 sq M 101 (no code) 90 - 120 10-03-2017 Hospital predicted among mL/min/{1.73_m2} mL/min/{1.73_m2} : [facility] non-blacks MDRD [facility] vol rate/area (17500) (S/P/Bld) Glucose mass 68 mg/dL (L) 60 - 125 mg/dL 10-03-2017 Hosp ital conc 17: [facility] (39305) Osmolality 281 mosm/kg (no code) 275 - 295 10-03-2017 Hospital mosm/kg 17: [facility] (88523) Potassium molar 3.8 mmol/L (no code) 3.7 - 5.2 mmol/L 10-03-2017 Hospital conc 17: [facility] (60822) Protein mass 6.5 g/dL (no code) 6.4 - 8.3 g/dL 10-03-2017 Hosp ital conc 17: [facility] (52813) Sodium molar 137 mmol/L (no code) 135 - 145 mmol/L 10-03-2017 H ospital conc 17: [facility] (06636) Urea nitrogen 10 mg/dL (no code) 7 - 20 mg/dL 10-03-2017 Hospi arianna mass conc 17: [facility] (31069) hematology on 2017-10-03 Basophils Auto 0.1 10*3/uL (no code) 0 - 0.3 10*3/uL 10-03-2017 Hospital #/vol (Bld) 17:0400 [facility] (30152) Basophils/100 0.60 % (no code) 0.5 - 1 % 10-03-2017 Hospital WBC Auto (Bld) 17: [facility] (88818) Eosinophils Auto 0.2 10*3/uL (no code) 0.05 - 0.5 10-03-2017 Ho spital #/vol (Bld) 10*3/uL 17: [facility] (77169) Eosinophils/100 1.8 % (no code) 1 - 4 % 10-03-2017 Hospit al WBC Auto (Bld) 17: [facility] (43196) Erythrocyte 12.4 % (no code) 11.6 - 14.6 % 10-03-2017 Hospit al distribution 17: [facility] width Auto Ratio [facility] (RBC) (98005) Hematocrit Auto 41.0 % (no code) 36.1 - 50.3 % 10-03-2017 Ho spital Volume Fraction 17: [facility] (Bld) [facility] (03523) Hemoglobin mass 14.6 g/dL (no code) 12.1 - 17.2 g/dL 10-03-2017 Hospital conc (Bld) 17: [facility] (08582) Lymphocytes Auto 4.43 10*3/uL (H) 0.9 - 2.9 10-03-2017 Ho spital #/vol (Bld) 10*3/uL 17:040 [facility] (02561) Lymphocytes/100 38.9 % (no code) 20 - 40 % 10-03-2017 Hospit al WBC Auto (Bld) 17: [facility] (31193) MCH Auto Entitic 35.1 pg (H) 27 - 31 pg 10-03-2017 Hosp ital mass (RBC) 17: [facility] (70591) MCHC Auto mass 35.6 g/dL (no code) 32 - 36 g/dL 10-03-2017 Hosp ital conc (RBC) 17: [facility] (66091) MCV Auto Entitic 98.6 fL (H) 80 - 100 fL 10-03-2017 Hos pital volume (RBC) 17: [facility] (30969) Monocytes Auto 1.1 10*3/uL (H) 0.3 - 0.9 10-03-2017 Hospi arianna #/vol (Bld) 10*3/uL 17: [facility] () Monocytes/100 9.8 % (no code) 2 - 8 % 10-03-2017 Hospital WBC Auto (Bld) 17: [facility] (96677) Neutrophils Auto 5.56 10*3/uL (no code) 1.7 - 7 10*3/uL 10-04-19 18 Hospital #/vol (Bld) 17: [facility] () Neutrophils/100 48.9 % (no code) 40 - 60 % 10-03-2017 Hospit al WBC Auto (Bld) 17: [facility] (12691) Platelet mean 9.4 fL (no code) 7.2 - 11.7 fL 10-03-2017 Hosp ital volume Auto 17: [facility] Entitic volume [facility] (d) (09618) Platelets Auto 343 10*3/uL (no code) 150 - 450 10-03-2017 Hospi arianna #/vol (Bld) 10*3/uL 17: [facility] (23935) RBC Auto #/vol 4.16 10*6/uL (no code) 4.2 - 6.1 10-03-2017 Hosp ital (Bld) 10*6/uL 17: [facility] (27935) WBC Auto #/vol 11.38 10*3/uL (H) 3.5 - 10.5 10-03-2017 Ho spital (Bld) 10*3/uL 17:0400 [facility] (54316) drug on 2017-10-03 Ethanol mass 281 mg/dL (HH) 0 - 80 mg/dL 10-03-2017 Hospit al conc 17:23-0400 [facility] #[facility] (16339) venous blood hemoglobin measurement (mass/volume) on 2017-08-19 Hemoglobin (HGB) 13.8 g/dL (no code) 12 - 18 g/dL Via [facility] (05632) urine urobilinogen measurement by automated test strip (mass/volume) on 2017-08-19 Urine, NORMAL (no code) [facility]19154[facility] urine total bilirubin detection by test strip on 2017-08-19 Urine, bilirubin Negative (no code) Via [facility] (81155) urine protein assay by test strip, semi-quantitativ e on 2017-08-19 Urine, protein Negative (no code) Via [facility] (34460) urine ph measurement by test strip on 2017-08-19 Urine, pH 6 [pH] (no code) 4.6 - 8 [pH] Via [facility] (75620) urine nitrite detection by test strip on 2017-08-19 Urine, nitrite Negative (no code) Via [facility] (24661) urine ketones detection by automated test strip on 2017-08-19 Urine, ketones Negative (no code) Via [facility] (33942) urine glucose detection by automated test strip on 2017-08-19 Urine, glucose Negative (no code) Via [facility] (37234) urine color determination on 2017-08-19 Urine, color YELLOW (no code) Via [facility] (14403) urine clarity determination on 2017-08-19 Urine, clarity CLEAR (no code) Via [facility] (45868) squamous epithelial cells detection in urine sediment by light microscopy on 2017-08-19 Urine, squamous RARE (no code) Via [facility] cells [facility] in sediment [place] (97702) specific gravity of urine by test strip on 2017-08-19 Urine, specific 1.005 (*) Via [facility] (02554) serum or plasma urea nitrogen/creatin ine mass ratio on 2017-08-19 BUN/Creatinine 20 mg/mg (no code) 10 - 20 mg/mg Via [facility] (67362) serum or plasma urea nitrogen measurement (mass/volume) on 2017-08-19 Urea nitrogen 12 mg/dL (no code) 7 - 20 mg/dL Via [facility] (96331) serum or plasma sodium measurement (moles/volume) on 2017-08-19 Sodium 137 mmol/L (no code) 135 - 147 mmol/L Via [facility] (64153) serum or plasma potassium measurement (moles/volume) on 2017-08-19 Potassium 3.7 mmol/L (no code) 3.5 - 5.1 mmol/L Via [facility] (36590) serum or plasma glucose measurement (mass/volume) on 2017-08-19 Glucose 80 mg/dL (no code) 60 - 125 mg/dL Via [facility] (87946) serum or plasma creatinine measurement with calculation of estimated glomerular filtration rate on 2017-08-19 eGFR (non-black) no information (no code) Via [facility] (83625) serum or plasma creatinine measurement (mass/volume) on 2017-08-19 Creatinine 0.60 mg/dL (no code) Via [facility] (41016) serum or plasma chloride measurement (moles/volume) on 2017-08-19 Chloride 103 mmol/L (no code) 95 - 106 mmol/L Via [facility] (67547) serum or plasma calcium measurement (mass/volume) on 2017-08-19 Calcium 9.2 mg/dL (no code) 9 - 11 mg/dL Via [facility] (16756) serum or plasma anion gap determination (moles/volume) on 2017-08-19 Anion gap 11 mmol/L (no code) 3 - 11 mmol/L Via [facility] (83809) mucus detection in urine sediment by light microscopy on 2017-08-19 Urine, mucus Negative (no code) Via [facility] presence in [facility] sediment [place] (09199) leukocyte esterase on 2017-08-19 Urine, leukocyte Negative (no code) Via [facility] esterase [facility] (47616) erythrocytes detection in urine sediment by light microscopy on 2017-08-19 Urine, Negative (no code) Via [facility] erythrocytes [facility] (02677) crystals detection in urine sediment by light microscopy on 2017-08-19 Urine, crystals NONE (no code) Via [facility] presence in Hospital sediment [place] (67597) complete urinalysis with reflex to culture on 2017-08-19 Complete NO (no code) Via [facility] urinalysis with Hospital reflex to [place] culture (53708) casts detection in urine sediment by light microscopy on 2017-08-19 Urine, casts in NONE (no code) Via [facility] sediment [facility] (39704) carbon dioxide on 2017-08-19 CO2 23 mmol/L (no code) 23 - 29 mmol/L Via [facility] (53061) blood neutrophils automated count (number/volume) on 2017-08-19 Neutrophils 5.4 10*3/uL (no code) 1.5 - 7.8 Via [facility] 10*3/uL [facility] (09774) blood monocytes/100 leukocytes on 2017-08-19 Monocytes/100 12 % (no code) 2 - 8 % Via [facility] leukocytes [facility] (01718) blood monocytes automated count (number/volume) on 2017-08-19 Monocytes 1.4 10*3/uL (H) 0.2 - 1.1 Via [facility] 10*3/uL [facility] (58665) blood lymphocytes automated count (number/volume) on 2017-08-19 Lymphocytes 4.2 10*3/uL (H) 0.85 - 4.1 Via [facility] 10*3/uL [facility] (73811) blood leukocytes automated count (number/volume) on 2017-08-19 WBC (Leukocytes) 11.3 10*3/uL (H) 3.8 - 10.8 Via [facility] 10*3/uL [facility] (73838) blood hematocrit (volume fraction) on 2017-08-19 Hematocrit (HCT) 39 % (no code) 39 - 51 % [facility] [facility] ([id number]) blood erythrocytes automated count (number/volume) on 2017-08-19 Erythrocytes 3.89 10*6/uL (L) 4.2 - 6.1 [facility] (RBC) 10*6/uL [facility] ([id number]) bacteria detection in urine sediment by light microscopy on 2017-08-19 Urine, bacteria NONE (no code) [facility] in sediment [facility] ([id number]) automated urine sediment leukocyte count by microscopy (number/high power field) on 2017-08-19 Urine, NONE (no code) [facility] ([id number][facility] automated urine sediment erythrocyte count by microscopy (number/high power field) on 2017-08-19 Urine, NONE (no code) [facility] erythrocytes in [facility] sediment by area [place] ([id number]) automated erythrocyte mean corpuscular volume on 2017-08-19 MCV 99 fL (no code) 80 - 100 fL [facility] ([id number]) automated erythrocyte mean corpuscular hemoglobin concentration measurement (mass/volume) on 2017-08-19 MCHC 36 g/dL (no code) 32 - 36 g/dL [facility] ([id number]) automated erythrocyte mean corpuscular hemoglobin (mass per erythrocyte) on 2017-08-19 MCH 36 pg (H) 27 - 31 pg [facility] ([id number]) automated erythrocyte distribution width ratio on 2017-08-19 RDW-CA 12.9 % (no code) 11 - 15 % [facility] ([id number]) automated eosinophil count on 2017-08-19 Eosinophils 0.2 10*3/uL (no code) 0.05 - 1.5 [facility] 10*3/uL [facility] ([id number]) automated blood platelet mean volume measurement on 2017-08-19 Platelet mean 9.7 fL (no code) 7.2 - 11.7 fL [facility] (V) [facility] ([id number]) automated blood platelet count (count/volume) on 2017-08-19 Platelets 282 10*3/uL (no code) 150 - 400 [facility] 10*3/uL [facility] ([id number]) automated blood neutrophils/100 leukocytes on 2017-08-19 Neutrophils/100 48 % (no code) 40 - 60 % [facility] leukocytes [facility] ([id number]) automated blood lymphocytes/100 leukocytes on 2017-08-19 Lymphocytes/100 37 % (no code) 20 - 40 % [facility] leukocytes [facility] ([id number]) automated blood eosinophils/100 leukocytes on 2017-08-19 Eosinophils/100 2 % (no code) 1 - 4 % [facility] leukocytes [facility] ([id number]) automated blood basophils/100 leukocytes on 2017-08-19 Basophils/100 1 % (no code) 0.5 - 1 % [facility] leukocytes [facility] ([id number]) automated blood basophil count (count/volume) on 2017-08-19 Basophils 0.1 10*3/uL (no code) 0 - 0.2 10*3/uL [facility] ([id number]) Vital Signs Vital Sign Value Interpretation Reference Date Time Care Prov ider Facility (Normalized) (Normalized) Range Body height 167.64 cm (no code) cm [facility] 12:[facility]-0400 [id number] [facility] ([id number]) Body height 167.64 cm (no code) cm 06-02-2013 MIGUE [facility] 13:36-0400 72590 [facility] ([id number]) Body height 167.64 cm (no code) cm 04-17-2013 APRIL Menon [facility] 11:34-0400 [id number] [facility] ([id number]) Body 98.1 [degF] (no code) 97.8 - 99.0 02-16-2014 [facility] Temperature [degF] 11:31-[id number] [place] [address] ([id number]) Body 98 [degF] (no code) 97.8 - 99.0 11-27-2013 [facility] temperature [degF] 12:19-0400 07041 [facility] ([id number]) Body 97.5 [degF] (no code) 97.8 - 99.0 09-18-2013 [facility] Temperature [degF] 14:40-[id number] [place] [address] ([id number]) Body 96.9 [degF] (no code) 97.8 - 99.0 07-25-2013 [facility] Temperature [degF] 18:53-[id number] [place] [address] ([id number]) Body 98.7 [degF] (no code) 97.8 - 99.0 06-02-2013 MIGUE Dubose [facility] temperature [degF] 13:36-0400 10681 [facility] ([id number]) Body 98 [degF] (no code) 97.8 - 99.0 04-17-2013 APRIL SALAZAR [facility] temperature [degF] 11:34-[id number] [place] [address] ([id number]) Body weight 53.98 kg (no code) kg 02-16-2014 [facility] 11:31-[address] [place] [address] ([id number]) Body weight 55.34 kg (no code) kg 11-27-2013 [facility] 12:19-[address] [place] [address] ([id number]) Body weight 52.84 kg (no code) kg 09-18-2013 [facility] 14:40-[address] [place] [address] ([id number]) Body weight 54.93 kg (no code) kg 07-25-2013 [facility] 18:53-[address] [place] [address] ([id number]) Body weight 55.34 kg (no code) kg 06-02-2013 [facility] 13:36-[id number] [place] [address] ([id number]) Body weight 58.2 kg (no code) kg 04-17-2013 APRIL Tanner [facility] 11:34-[id number] [place] [address] ([id number]) Height 157.48 cm (no code) cm 02-16-2014 [facility] 11:31-[address] [place] [address] ([id number]) Height 167.64 cm (no code) cm 09-18-2013 [facility] 14:40-[id number] [place] [address] ([id number]) Height 167.64 cm (no code) cm 07-25-2013 [facility] 18:53-[address] [place] [address] ([id number]) Interventions No Information Plan of Treatment Normalized Care Care Detail Care Activity Date Care Provider F acility Activity Patient Education ALCOHOL AND no information [place] [address] SUBSTANCE ABUSE [facility] ([id number]) Patient referral no information no information HUMA LOZOYA [phone] [facility] ([id number]) Goals Patient Goal Desired Goal no information no information Social History Normalized Code Original Code Date Value no information no information 05-02-2015 Past History no information no information 05-02-2015 Y - marijuana, states quit drinking 3 months ago no information no information 11-20-2013 No no information no information 11-20-2013 Denies no information no information 12-22-2018 Cigarettes no information no information 12-22-2018 CANNIBUS Sex Assigned At Sex Assigned At no information F emale Functional Status The data below is from unstructured sources Query Response Date Chandrakant rded Patient Orientation Person Place Time Situation May 04, 2015 1:15pm Query Response Date Chandrakant rded Patient Orientation Person Place Time Situation October 03, 2013 3:25pm Comprehension Ability Understands Co ncepts October 03, 2013 12:00pm Query Response Date Chandrakant rded Patient Orientation Person Place Time Situation November 20, 2013 4:19pm Comprehension Ability Understands Co ncepts November 20, 2013 8:00am Mental Status The data below is from unstructured sourcesNo Mental Status Information Available Encounters Encounter Normalized Encounter Encounter Diagnosis Care Provi nasima Organization Date Type 09-05-2018 [facility] Pain in right ankle HUMA YOUNG RTER (no [facility] - and joints of right phone) (no phone) 09-05-2018 foot - 09-05-2018 12-22-2018 Emergency department no information (no phone) [facility] - patient visit Hospital (no phone) 12-22-2018 12-22-2018 Emergency department no information no name no organization name - patient visit 12-22-2018 10-12-2018 Emergency department no information MALIA JONES no organization name - patient visit Work Phone: 10-12-2018 MALIA JOLLY 10-12-2018 Emergency department no information no name no organization name - patient visit 10-12-2018 10-11-2018 Emergency department no information LI ARREGUIN no organization name - patient visit Work Phone: 10-11-2018 LI LOPEZ 10-11-2018 Emergency department no information no name no organization name - patient visit 10-11-2018 09-09-2018 Emergency department no information no name no organization name - patient visit 09-09-2018 07-13-2018 Emergency department no information no name no organization name - patient visit 07-13-2018 07-13-2018 Emergency department no information no name no organization name - patient visit 07-13-2018 06-30-2018 Emergency department no information no name no organization name - patient visit 06-30-2018 06-29-2018 Emergency department no information no name no organization name - patient visit 06-30-2018 10-12-2017 Emergency department no information no name no organization name - patient visit 10-12-2017 10-10-2017 Emergency department no information JENIFER MULLINS ( no no organization name - patient visit phone) 10-10-2017 09-13-2017 Emergency department no information AMBER MCKEON Wor k no organization name - patient visit Phone: 09-13-2017 AMBER MCKEON 09-13-2017 Emergency department no information LI Montes APRN BA RODRÍGUEZ no organization name - patient visit Work Phone: 09-13-2017 LI Montes APRN [employer] LI Montes APRN [employer] 08-19-2017 Emergency department no information LI Montes APRN BA RODRÍGUEZ no organization name - patient visit Work Phone: 08-19-2017 LI Montes APRN [employer] LI Montes APRN LOPEZ 11-20-2013 Evaluation and no information no name no organ ization name - management of 11-20-2013 inpatient 10-03-2017 Patient encounter no information no name no or ganization name - 10-03-2017 09-13-2017 Patient encounter no information no name no or ganization name 09-13-2017 Patient encounter no information no name no or ganization name 08-19-2017 Patient encounter no information no name no or ganization name 06-08-2017 Patient encounter no information no name no or ganization name 05-21-2017 Patient encounter no information no name no or ganization name 05-19-2017 Patient encounter no information no name no or ganization name 05-11-2017 Patient encounter no information no name no or ganization name 04-08-2017 Patient encounter no information no name no or ganization name 04-06-2017 Patient encounter no information no name no or ganization name 04-06-2017 Patient encounter no information no name no or ganization name 04-27-2013 Patient encounter no information no name no or ganization name 03-06-2013 Patient encounter no information no name no or ganization name 03-04-2012 Patient encounter no information no name no or ganization name Patient encounter no information no name no organizat ion name 07-01-2019 Patient encounter no information MARISEL CRUZ (no [facility] phone) of [facility] (no 07-01-2019 phone) 06-24-2019 Patient encounter no information Alfredo Murray (no jermaine ne) [facility] - [facility] (no of [facility] (no 06-24-2019 phone) [facility] phone) (no phone) 01-02-2019 Patient encounter no information no name no or ganization name - procedure 01-02-2019 12-15-2018 Patient encounter no information no name no or ganization name procedure 12-11-2018 Patient encounter no information no name no or ganization name - procedure 12-11-2018 10-12-2018 Patient encounter no information no name no or ganization name procedure 10-11-2018 Patient encounter no information no name no or ganization name procedure 09-09-2018 Patient encounter no information no name no or ganization name procedure 09-05-2018 Patient encounter no information no name no or ganization name procedure 08-02-2018 Patient encounter no information no name no or ganization name - procedure 08-02-2018 07-13-2018 Patient encounter no information no name no or ganization name procedure 06-30-2018 Patient encounter no information no name no or ganization name procedure 06-29-2018 Patient encounter no information no name no or ganization name procedure 06-29-2018 Patient encounter no information no name no or ganization name procedure 03-03-2016 Patient encounter no information no name no or ganization name procedure 06-21-2019 Telephone encounter no information HUMA LOZOYA (n o [facility] phone) (no phone) 10-05-2018 Telephone encounter no information HUMA LOZOYA [facility] phone[facility] (no phone) 10-05-2018 - 10-05-2018 09-30-2018 Telephone encounter Primary HUMA LOZOYA (no [facility] - osteoarthritis, right phone) (no phon e) 09-30-2018 ankle and foot - 09-30-2018 Medical Equipment The data below is from unstructured sourcesNo Medical Equipment Information available Payers Normalized Payer Value Unknown no information [id number]) Private Health Insurance no information Evaluation note Note Type Note Facility Evaluation No Assessments Information Available A scension note Via [facility] ([id number]) Advance Directives Directive Response Recor ded Date/Time Advance Directives No 3:37pm Health Care Power of [employer] Lab[employer] No 03/03/16 3:37pm Organ Donor No 03/03/16 3:37pm Resuscitation Status Full Code 03/03/16 3:37pm Directive Response Recor ded Date/Time Advance Directives No 5:28pm Health Care Power of [employer] Lab[employer] No 05/02/15 5:28pm Organ Donor No 05/02/15 3:18pm Resuscitation Status Full Code 05/02/15 5:28pm Directive Response Recor ded Date/Time Advance Directives No 4:26pm Health Care Power of [employer] No 07/11/16 4:26pm Organ Donor No 07/11/16 4:26pm Resuscitation Status Full Code 07/11/16 4:26pm Directive Response Recor ded Date/Time Advance Directives Yes 0 10/02/13 5:44pm Health Care Power of [employer] Lab[employer] No 10/02/13 5:44pm Organ Donor No 10/02/13 5:44pm Resuscitation Status Full Code 10/02/13 5:44pm Directive Response Recor ded Date/Time Advance Directives No 11:30pm Health Care Power of [employer] Lab[employer] No 11/19/13 11:30pm Organ Donor No 11/19/13 8:57pm Resuscitation Status Full Code 11/19/13 11:30pm Directive Response Recor ded Date Advance Directives N 01/20 12:15pm Health Care Power of [employer] Lab[employer] N 07/20/12 12:15pm Organ Donor N 07/20/12 1 2:15pm Directive Response Recor ded Date/Time Advance Directives No 6:47pm Health Care Power of [employer] Laborer No 04/06/17 6:47pm Organ Donor No 04/06/17 6:47pm Resuscitation Status Full Code 04/06/17 6:47pm Directive Response Recor ded Date/Time Advance Directives No 9:06pm Health Care Power of [employer] Lab[employer] No 05/21/17 9:06pm Organ Donor No 05/21/17 9:06pm Directive Response Recor ded Date/Time Advance Directives No 8:29pm Health Care Power of [employer] Lab[employer] No 06/08/17 8:29pm Organ Donor No 06/08/17 8:29pm Resuscitation Status Full Code 06/08/17 8:29pm Directive Response Recor ded Date/Time Advance Directives No 6:24pm Health Care Power of [employer] Laborer No 08/19/17 6:24pm Organ Donor No 08/19/17 6:24pm Resuscitation Status Full Code 08/19/17 6:24pm Directive Response Recor ded Date/Time Advance Directives No 11:37am Health Care Power of [employer] Laborer No 09/13/17 11:37am Organ Donor No 09/13/17 11:37am Directive Response Recor ded Date/Time Advance Directives No 11:37am Health Care Power of [employer] Laborer No 09/13/17 11:37am Organ Donor No 09/13/17 11:37am Resuscitation Status Full Code 09/13/17 11:37am Directive Response Recor ded Date/Time Advance Directives No 12:17pm Health Care Power of [employer] Laborer No 10/10/17 12:17pm Organ Donor No 10/10/17 12:17pm Resuscitation Status Full Code 10/10/17 12:17pm Directive Response Recor ded Date/Time Advance Directives No 3:30pm Health Care Power of [employer] Laborer No 10/11/18 3:30pm Organ Donor No 10/11/18 3:30pm Advance Directive Response Recorded Date/Time Advance Directives No No vem 2018 5:08pm Health Care Power of [employer] No December 22, 2018 5:08pm Organ Donor No December 22, 2018 5:08pm Resuscitation Status Full Code December 22, 2018 5:08pm Discharge Instructions No hospital discharge instructions. Patient Instructions Physician Instructions New, Converted or Re-Newed RX: Transmitted to Pharmacy Goal/Follow Up Appt: Follow up with Ms Last at [facility] on Friday 05/05 at 3pm. [facility] will call you for a follow up appointment with Dr Lozoya. Patient Instructions: please take all medicines as prescribed. Continue to work with your rn case manager as you have been doing. [facility] to [facility] For: fever, shortness of breath, blood in sputum. Discharge Diet: No Restrictions Activity as Tolerated: Yes Care Plan Patient Instructions:: please take all medicines as prescribed. Continue to work with your application systems administrator as you have been doing. Goal:: Follow up with Ms Last at [facility] on Friday 05/05at 3pm. [facility] will call you for a follow up appointment withDr Lozoya. No hospital discharge instruction information available. Patient Instructions Physician Instructions Patient Instructions -Please stop drinking alcohol, we recommend inpatient treatment for you alcohol use -you are taking three medications that do the same thing and you should not take all three due to increased risk of bleeding and stomach ulcers. You were taking Diclofenac, Naproxen and Ibuprofen. All of these medications are NSAIDS, we stopped the diclofenac and ibuprofen. You may continue the naproxen. -please call the save line if you have any feelings of suicide or homicidal ideation Goal/Follow Up Appt: Follow up with Dr. Lozoya on 10-12-13 at 3:45 PM Follow up with Mariya Yi on 10-04-13 Discharge Diet: Regular Diet Activity as Tolerated: Yes Patient Instructions Physician Instructions New, Converted or Re-Newed RX: Call to Patients Pharmacy Goal/Follow Up Appt: Patient was given refill on her inhaler Patient Instructions: Follow up with Dr. Lozoya in one week, we recommend alcohol cessation and cessation of THC. We recommend follow up with a mental health provider and treatment Activity as Tolerated: Yes No hospital discharge instruction information available.No hospital discharge instruction information available.No hospital discharge instruction information available.No hospital discharge instruction information available.No hospital discharge instruction information available.No hospital discharge instruction information available.No hospital discharge instruction information available.No hospital discharge instruction information available.No hospital discharge instruction information available.No hospital discharge instruction information available. Summary Purpose eClinicalWorks SubmissioneClinicalWorks SubmissioneClinicalWorks SubmissioneClinicalWorks SubmissioneClinicalWorks SubmissioneClinicalWorks SubmissioneClinicalWorks Submission Chief Complaint and Reason for Visit Chief Complaint Substance Abuse Reason for Visit Alcohol abuse Chief Complaint Substance Abuse Additional Source Comments This clinical document has been generated using [employer] software that has been certified by the Office of the National Coordinator for Health Information Technology (ONC 15.99.04.3023.Diam.31.00.0.600525) and the National Committee for [employer] (NCQA, as an eMeasure certified technology). FOR RECORDS PERTAINING TO PATIENTS WHO ARE OR HAVE BEEN ENROLLED IN A CHEMICAL D EPENDENCY/SUBSTANCE ABUSE PROGRAM, SOME INFORMATION MAY BE OMITTED. This clinica l summary was aggregated from multiple sources. Caution should be exercised in using it in the provision of clinical care. This summary normalizes information from multiple sources, and as a consequence, information in this document may ma terially change the coding, format and clinical context of patient data. In reddy tion, data may be omitted in some cases. CLINICAL DECISIONS SHOULD BE BASED ON T HE PRIMARY CLINICAL RECORDS. [employer] provides no warranty or guara ntee of the accuracy or completeness of information in this document.The followi ng information is based on time limited clinical information UNRECOGNIZED CONTENT PROVIDED BELOW FOR UNRECOGNIZED SECTION MEDICAL (GENERAL) HISTORY Type Description Date Medical History asthma Medical History headache Medical History chronic pain-low vidhi k with spasms Medical History anxiety Medical History depression Hospitalization History childbirth x 4 UNRECOGNIZED CONTENT PROVIDED BELOW FOR UNRECOGNIZED SECTION REASON FOR VISIT [id number]
--- OUTSIDE RECORDS SUMMARY | 2019-07-02 15:38 | XMS REPORT ---
Author Author Madina LOZOYA Organization [facility] Address [address] [place] [address] Care Team Providers Care Electrician Assistant Name Role Phone HUMA LOZOYA Unavailable PROBLEMS Type Condition ICD9-CM Code [id number] Code Onset Dates Condition S tatus SNOMED Code Problem Asthma J45.909 Active 371028817 Problem Alcoholism F10.20 Active 3890322 Problem Arthritis M19.90 Active 0882922 Problem Other chronic pain G89.29 Active 8 5109272 Problem Bipolar disorder F31.9 Active 137 46440 Problem Closed fracture of shaft of right fibula, unspecified fracture morphology, initial encounter S82.401A Active 49775754 Problem Major depressive disorder, single episode F32.9 Active 87260282 Problem Arthropathy, unspecified M12.9 Activ e [id number] ALLERGIES No Information ENCOUNTERS Encounter Location Date Diagnosis [facility] [id number] [place] [phone] Apr, [facility] [id number] [place] [phone] Apr, Cough R05 and Hyperinflation of lungs R09.89 [facility] [address] [facility] [id number] [address] [place] [address] Dec, Arthritis M19.90 ; Alcoholis m F10.20 ; Encounter for immunization Z23 and Breast cancer screening by mammogram Z12.31 [facility] [address] [facility] [id number] [address] [place] [address] Sep, [facility] [address] [id number] [address] [place] [address] Sep, Arthropathy of right ankle M 19.071 [facility] [address] [id number] [address] [place] [address] Aug, Pain in right ankle and join ts of right foot M25.571 and Other chronic pain G89.29 [facility] [address] [facility] [id number] [address] [place] [address] Jul, [facility] [address] [facility] [id number] [address] [place] [address] Apr, [facility] [address] [facility] [id number] [address] [place] [address] Apr, Injury of right ankle, initi al encounter S99.911A and Encounter for immunization Z23 [place] [address] [facility] [id number] [address] [place] [address] Dec, [place] [address] [facility] [id number] [address] [place] [address] Nov, Pain in right ankle and join ts of right foot M25.571 ; Other chronic pain G89.29 and Post-traumatic arthritis of right ankle M19.171 [place] [address] [facility] [id number] [address] [place] [address] Oct, Arthritis M19.90 [place] [address] [facility] [id number] [address] [place] [address] Aug, Arthritis M19.90 [place] [address] [facility] [id number] [address] [place] [address] Aug, [place] [address] [facility] [id number] [address] [place] [address] Jul, [place] [address] [facility] [id number] [address] [place] [address] June, Arthropathy, unspecified M12 .9 [place] [address] [facility] [id number] [address] [place] [address] May, Asthma J45.909 and Major dep ressive disorder, single episode F32.9 [facility] [address] [id number] [address] [place] [address] Mar, Closed fracture of shaft of right fibula, unspecified fracture morphology, initial encounter S82.401A [facility] [address] [facility] [id number] [address] [place] [address] Feb, [facility] [address] [facility] [id number] [address] [place] [address] Feb, [facility] [address] [facility] [id number] [address] [place] [address] Nov, [facility] [address] [facility] [id number] [address] [place] [address] Nov, Bipolar disorder F31.9 ; Enc ounter for immunization Z23 and Asthma J45.909 [facility] [address] [facility] [id number] [address] [place] [address] Aug, [facility] [address] [id number] [address] [place] [address] May, [facility] [address] [facility] [id number] [address] [place] [address] Apr, [facility] [address] [id number] [address] [place] [address] Apr, [facility] [address] [facility] [id number] [address] [place] [address] Apr, URI (upper respiratory infec tion) J06.9 and Bipolar disorder F31.9 [facility] [address] [facility] [id number] [address] [place] [address] Feb, [facility] [address] [facility] [id number] [address] [place] [address] Feb, Asthma J45.909 and Alcoholis m F10.20 [facility] [address] [facility] [id number] [address] [place] [address] Jan, [facility] [address] [id number] [address] [place] [address] Jan, [facility] [address] [id number] [address] [place] [address] Jan, [facility] [address] [id number] [address] [place] [address] Nov, Alcoholism F10.20 and Anxiet y F41.9 [facility] [address] [id number] [address] [place] [address] Jul, Anxiety 300.00 and Arthropat hy 716.90 [facility] [address] [id number] [address] [place] [address] Jul, [facility] [address] [id number] [address] [place] [address] Jul, Anxiety state 300.00 [facility] [address] [facility] [id number] [address] [place] [address] May, [facility] [address] [id number] [address] [place] [address] May, [facility] [address] [facility] [id number] [address] [place] [address] Apr, [facility] [address] [facility] [id number] [address] [place] [address] Apr, [facility] [address] [facility] [id number] [address] [place] [phone] Mar, [facility] [address] [id number] [address] [place] [phone] Mar, [facility] [address] [facility] [id number] [address] [place] [address] Feb, [facility] [address] [id number] [address] [place] [address] Feb, [facility] [address] [facility] [id number] [address] [place] [address] Feb, [facility] [address] [id number] [address] [place] [address] Feb, [facility] [address] [id number] [address] [place] [address], [place] [address] Jan, [facility] [address] [id number] [address] [place] [address], [place] [address] Jan, [facility] [address] [id number] [address] [place] [address], [place] [address] Jan, [facility] [address] [id number] [address] [place] [address], [place] [address] Jan, [facility] [address] [id number] [address] [place] [address], [place] [address] Nov, [facility] [address] [id number] [address] [place] [address], [place] [address] Nov, [facility] [address] [id number] [address] [place] [address], [place] [address] Nov, [facility] [address] [id number] [address] [place] [address], [place] [address] Nov, [facility] [address] [id number] [address] [place] [address], [place] [address] Nov, [facility] [address] [id number] [address] [place] [address], [place] [address] Nov, [facility] [address] [id number] [address] [place] [address], [place] [address] Nov, [facility] [address] [id number] [address] [place] [phone] Nov, [facility] [address] [id number] [address] [place] [address], [place] [address] Nov, [facility] [address] [id number] [address] [place] [address], [place] [address] Nov, [facility] [address] [id number] [address] [place] [address], [place] [address] Nov, [facility] [address] [id number] [address] [place] [address], [place] [address] 07 Nov, 2013 [facility] [address] [id number] [address] [place] [address], [place] [address] 07 Nov, 2013 [facility] [address] [id number] [address] [place] [address], [place] [address] 30 Oct, 2013 [facility] [address] [id number] [address] [place] [address], [place] [address] 30 Sep, 2013 [facility] [address] [id number] [address] [place] [address], [place] [address] 26 Oct, 2013 [facility] [address] [id number] [address] [place] [address], [place] [address] 26 Oct, 2013 [facility] [address] [id number] [address] [place] [address], [place] [address] 08 Oct, 2013 [facility] [address] [id number] [address] [place] [address], [place] [address] 08 Oct, 2013 [facility] [address] [id number] [address] [place] [address], [place] [address] 04 Sep, 2013 [facility] [address] [id number] [address] [place] [address], [place] [address] 04 Oct, 2013 [facility] [address] [id number] [address] [place] [address], [place] [address] 04 Oct, 2013 [facility] [address] [id number] [address] [place] [address], [place] [address] 04 Oct, 2013 [facility] [address] [id number] [address] [place] [address], [place] [address] 04 Oct, 2013 [facility] [address] [id number] [address] [place] [address], [place] [address] 04 Oct, 2013 [facility] [address] [id number] [address] [place] [address], [place] [address] Sep, [facility] [address] [id number] [address] [place] [address], [place] [address] Sep, [facility] [address] [id number] [facility] [place] [address] Sep, [facility] [address] [id number] [facility] [place] [address] Sep, [facility] [address] [id number] [facility] [place] [address] Sep, [facility] [address] [id number] [address] [place] [address], [place] [address] Sep, [facility] [address] [id number] [address] [place] [address], [place] [address] Sep, [facility] [address] [id number] [address] [place] [address], [place] [address] Sep, [facility] [address] [id number] [address] [place] [address], [place] [address] Aug, [facility] [address] [id number] [address] [place] [address], [place] [address] Aug, [facility] [address] [id number] [address] [place] [address], [place] [address] Aug, [facility] [address] [id number] [address] [place] [address], [place] [address] Aug, [facility] [address] [id number] [address] [place] [address], [place] [address] Jul, [facility] [address] [id number] [address] [place] [address], [place] [address] Jul, [facility] [address] [id number] [address] [place] [address], [place] [address] Jul, [facility] [address] [id number] [address] [place] [address], [place] [address] Jul, [facility] [address] [id number] [address] [place] [address], [place] [address] Jul, [facility] [address] [id number] [address] [place] [address], [place] [address] Jul, [facility] [address] [id number] [address] [place] [address], [place] [address] June, [facility] [address] [id number] [address] [place] [address], [place] [address] June, [facility] [address] [id number] [address] [place] [address], [place] [address] June, [facility] [address] [id number] [address] [place] [address], [place] [address] June, [facility] [address] [id number] [address] [place] [address], [place] [address] June, [facility] [address] [id number] [address] [place] [address], [place] [address] June, [facility] [address] [id number] [address] [place] [address], [place] [address] May, [facility] [address] [id number] [address] [place] [address], [place] [address] May, [facility] [address] [id number] [address] [place] [address], [place] [address] May, [facility] [address] [id number] [address] [place] [address], [place] [address] May, [facility] [address] [id number] [address] [place] [address], [place] [address] May, [facility] [address] [id number] [address] [place] [address], [place] [address] May, [facility] [address] [id number] [address] [place] [address], [place] [address] May, [facility] [address] [id number] [address] [place] [address], [place] [address] May, [facility] [address] [id number] [address] [place] [address], [place] [address] May, [facility] [address] [id number] [facility] [place] [address] May, [facility] [address] [id number] [facility] [place] [address] Apr, [facility] [address] [id number] [facility] [place] [address] Apr, [facility] [address] [id number] [facility] [place] [address] Apr, [facility] [address] [id number] [facility] [place] [address] Apr, [facility] [address] [id number] [address] [place] [address], [place] [address] Apr, [facility] [address] [id number] [address] [place] [address], [place] [address] Apr, [facility] [address] [id number] [address] [place] [address], [place] [address] Apr, [facility] [address] [id number] [address] [place] [address], [place] [address] Apr, [facility] [address] [id number] [address] [place] [address], [place] [address] Apr, [facility] [address] [id number] [address] [place] [address], [place] [address] Apr, [facility] [address] [id number] [address] [place] [address], [place] [address] Apr, [facility] [address] [id number] [address] [place] [address], [place] [address] Apr, [facility] [address] [id number] [address] [place] [address], [place] [address] Mar, [facility] [address] [id number] [address] [place] [address], [place] [address] Mar, [facility] [address] [id number] [address] [place] [address], [place] [address] Mar, [facility] [address] [id number] [address] [place] [address], [place] [address] Mar, [facility] [address] [id number] [address] [place] [address], [place] [address] Feb, [facility] [address] [id number] [address] [place] [address], [place] [address] Feb, [facility] [address] [id number] [address] [place] [address], [place] [address] Feb, [facility] [address] [id number] [address] [place] [address], [place] [address] Feb, [facility] [address] [id number] [address] [place] [address], [place] [address] Feb, [facility] [address] [id number] [address] [place] [address], [place] [address] Feb, [facility] [address] [id number] [address] [place] [address], [place] [address] Feb, [facility] [address] [id number] [address] [place] [address], [place] [address] Feb, [facility] [address] [id number] [address] [place] [address], [place] [address] Feb, [facility] [address] [id number] [address] [place] [address], [place] [address] Feb, [facility] [address] [id number] [address] [place] [address], [place] [address] Jan, [facility] [address] [id number] [address] [place] [address], [place] [address] Jan, [facility] [address] [id number] [address] [place] [address], [place] [address] Jan, [facility] [address] [id number] [address] [place] [address], [place] [address] Jan, [facility] [address] [id number] [address] [place] [address], [place] [address] Jan, [facility] [address] [id number] [address] [place] [address], [place] [address] Jan, [facility] [address] [id number] [address] [place] [address], [place] [address] Jan, [facility] [address] [id number] [address] [place] [address], [place] [address] Jan, [facility] [address] [id number] [address] [place] [address], [place] [address] Jan, [facility] [address] [id number] [address] [place] [address], [place] [address] Dec, [facility] [address] [id number] [address] [place] [address], [place] [address] Dec, [facility] [address] [id number] [address] [place] [address], [place] [address] Dec, [facility] [address] [id number] [address] [place] [address], [place] [address] Dec, [facility] [address] [id number] [address] [place] [address], [place] [address] Nov, [facility] [address] [id number] [address] [place] [address], [place] [address] Nov, [facility] [address] [id number] [address] [place] [address], [place] [address] Nov, [facility] [address] [id number] [address] [place] [address], [place] [address] Nov, [facility] [address] [id number] [address] [place] [address], [place] [address] Nov, [facility] [address] [id number] [address] [place] [address], [place] [address] Nov, [facility] [address] [id number] [address] [place] [address], [place] [address] Oct, [facility] [address] [id number] [address] [place] [address], [place] [address] Oct, [facility] [address] [id number] [address] [place] [address], [place] [address] Sep, [facility] [address] [id number] [address] [place] [address], [place] [address] Sep, [facility] [address] [id number] [address] [place] [address], [place] [address] Sep, [facility] [address] [id number] [address] [place] [address], [place] [address] Sep, [facility] [address] [id number] [address] [place] [address], [place] [address] Aug, [facility] [address] [id number] [address] [place] [address], [place] [address] Aug, [facility] [address] [id number] [address] [place] [address], [place] [address] Aug, [facility] [address] [id number] [address] [place] [address], [place] [address] Jul, [facility] [address] [id number] [address] [place] [address], [place] [address] Jul, [facility] [address] [id number] [address] [place] [address], [place] [address] Jul, [facility] [address] [id number] [address] [place] [address], [place] [address] Jul, [facility] [address] [id number] [address] [place] [address], [place] [address] June, [facility] [address] [id number] [address] [place] [address], [place] [address] June, [facility] [address] [id number] [address] [place] [address], [place] [address] May, [facility] [address] [id number] [address] [place] [address], [place] [address] 03 May, 2012 [facility] [address] [id number] [address] [place] [address], [place] [address] 29 Apr, [address] [facility] [address] [id number] [address] [place] [address], [place] [address] 19 Apr, 2012 [facility] [address] [id number] [address] [place] [address], [place] [address] 18 Mar, 2012 [facility] [address] [id number] [address] [place] [address], [place] [address] Mar, [facility] [address] [id number] [address] [place] [address], [place] [address] 31 Feb, 2012 [facility] [address] [id number] [address] [place] [address], [place] [address] 24 Feb, 2012 [facility] [address] [id number] [address] [place] [address], [place] [address] 18 Feb, 2012 [facility] [address] [id number] [address] [place] [address], [place] [address] 17 Feb, 2012 [facility] [address] [id number] [address] [place] [address], [place] [address] 17 Feb, 2012 [facility] [address] [id number] [address] [place] [address], [place] [address] 16 Feb, 2012 [facility] [address] [id number] [address] [place] [address], [place] [address] 16 Feb, 2012 [facility] [address] [id number] [address] [place] [address], [place] [address] 14 Feb, [address] [facility] [address] [id number] [address] [place] [address], [place] [address] 11 Feb, 2012 [facility] [address] [id number] [address] [place] [address], [place] [address] Jan, [facility] [address] [id number] [address] [place] [address], [place] [address] Jan, [facility] [address] [id number] [address] [place] [address], [place] [address] Jan, [facility] [address] [id number] [address] [place] [address], [place] [address] Jan, [facility] [address] [id number] [address] [place] [address], [place] [address] Dec, [facility] [address] [id number] [address] [place] [address], [place] [address] Dec, [facility] [address] [id number] [address] [place] [address], [place] [address] Dec, [facility] [address] [id number] [address] [place] [address], [place] [address] Dec, [facility] [address] [id number] [address] [place] [address], [place] [address] Oct, [facility] [address] [id number] [address] [place] [address], [place] [address] Sep, [facility] [address] [id number] [address] [place] [address], [place] [address] Sep, [facility] [address] [id number] [address] [place] [address], [place] [address] Aug, [facility] [address] [id number] [address] [place] [address], [place] [phone] Jul, [facility] [address] [id number] [address] [place] [address], [place] [id number] June, [facility] [address] [id number] [address] [place] [address], [place] [id number] June, [facility] [address] [id number] [address] [place] [address], [place] [id number] May, [facility] [address] [id number] [address] [place] [address], [place] [id number] Apr, [facility] [address] [id number] [address] [place] [id number] Mar, [facility] [address] [facility] [id number] [address] [place] [id number] Mar, [facility] [address] [facility] [id number] [address] [place] [id number] Feb, [facility] [address] [facility] [id number] [address] [place] [id number] Dec, [facility] [address] [facility] [id number] [address] [place] [id number] Nov, [facility] [address] [facility] [id number] [address] [place] [id number] Sep, [facility] [address] [facility] [id number] [address] [place] [id number] Aug, IMMUNIZATIONS No Known Immunizations SOCIAL HISTORY [...]
--- OUTSIDE RECORDS SUMMARY | 2019-07-02 15:38 | XMS REPORT ---
Author Author Madina LOZOYA Organization 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 Name Role Phone HUMA LOZOYA Unavailable PROBLEMS Type Condition ICD9-CM Code [id number]-CR Code Onset Dates Condition S tatus SNOMED Code Problem Asthma J45.909 Active 398485022 Problem Alcoholism F10.20 Active 6074259 Problem Arthritis M19.90 Active 9280062 Problem Other chronic pain G89.29 Active 8 7797389 Problem Bipolar disorder F31.9 Active 137 07473 Problem Closed fracture of shaft of right fibula, unspecified fracture morphology, initial encounter S82.401A Active 11051253 Problem Major depressive disorder, single episode F32.9 Active 34578209 Problem Arthropathy, unspecified M12.9 Activ e [id number] ALLERGIES No Information ENCOUNTERS Encounter Location Date Diagnosis [place] [address] [facility] [id number] [address] [place] [id number] June, [facility] [address] [place] [id number] [place] [phone] Apr, [facility] [address] [place] [id number] [place] [address] [id number] Apr, Cough R05 and Hyperinflation of lungs R09.89 [facility] [address] [facility] [id number] [address] [place] [address] Dec, Arthritis M19.90 ; Alcoholis m F10.20 ; Encounter for immunization Z23 and Breast cancer screening by mammogram Z12.31 [facility] [address] [facility] [id number] [address] [place] [address] Sep, [place] [address] [facility] [id number] [address] [place] [address] Sep, Arthropathy of right ankle M 19.071 [facility] [address] [id number] [address] [place] [address] Aug, Pain in right ankle and join ts of right foot M25.571 and Other chronic pain G89.29 [facility] [address] [id number] [address] [place] [phone] Jul, [facility] [address] [facility] [id number] [address] [place] [phone] Apr, [facility] [address] [id number] [address] [place] [address] Apr, Injury of right ankle, initi al encounter S99.911A and Encounter for immunization Z23 [facility] [address] [facility] [id number] [address] [place] [address] Dec, [place] [address] [facility] [id number] [address] [place] [address] Nov, Pain in right ankle and join ts of right foot M25.571 ; Other chronic pain G89.29 and Post-traumatic arthritis of right ankle M19.171 [place] [address] [facility] [id number] [address] [place] [address] Oct, Arthritis M19.90 [place] [address] [facility] [id number] [address] [place] [address] Aug, Arthritis M19.90 [place] [address] [facility] [id number] [address] [place] [address] Aug, [place] [address] [id number] [address] [place] [address] Jul, [place] [address] [facility] [id number] [address] [place] [address] June, Arthropathy, unspecified M12 .9 [facility] [address] [facility] [id number] [address] [place] [address] May, Asthma J45.909 and Major dep ressive disorder, single episode F32.9 [facility] [address] [id number] [address] [place] [address] Mar, Closed fracture of shaft of right fibula, unspecified fracture morphology, initial encounter S82.401A [facility] [address] [id number] [address] [place] [address] Feb, [facility] [address] [facility] [id number] [address] [place] [address] Feb, [facility] [address] [id number] [address] [place] [address] Nov, [facility] [address] [facility] [id number] [address] [place] [address] Nov, Bipolar disorder F31.9 ; Enc ounter for immunization Z23 and Asthma J45.909 [facility] [address] [facility] [id number] [address] [place] [address] Aug, [facility] [address] [facility] [id number] [address] [place] [address] May, [facility] [address] [facility] [id number] [address] [place] [phone] Apr, [facility] [address] [facility] [id number] [address] [place] [phone] Apr, [facility] [address] [facility] [id number] [address] [place] [address] Apr, URI (upper respiratory infec tion) J06.9 and Bipolar disorder F31.9 [facility] [address] [facility] [id number] [address] [place] [phone] Feb, [facility] [address] [facility] [id number] [address] [place] [address] Feb, Asthma J45.909 and Alcoholis m F10.20 [facility] [address] [facility] [id number] [address] [place] [phone] Jan, [facility] [address] [facility] [id number] [address] [place] [phone] Jan, [facility] [address] [facility] [id number] [address] [place] [phone] Jan, [facility] [address] [facility] [id number] [address] [place] [phone] Nov, Alcoholism F10.20 and Anxiet y F41.9 [facility] [address] [id number] [address] [place] [phone] Jul, Anxiety 300.00 and Arthropat hy 716.90 [facility] [address] [facility] [id number] [address] [place] [phone] Jul, [facility] [address] [facility] [id number] [address] [place] [address] Jul, Anxiety state 300.00 [facility] [address] [id number] [address] [place] [phone] May, [facility] [address] [facility] [id number] [address] [place] [address] May, [facility] [address] [facility] [id number] [address] [place] [phone] Apr, [facility] [address] [facility] [id number] [address] [place] [phone] Apr, [facility] [address] [facility] [id number] [address] [place] [phone] Mar, [facility] [address] [facility] [id number] [address] [place] [phone] Mar, [facility] [address] [facility] [id number] [address] [place] [phone] Feb, [facility] [address] [facility] [id number] [address] [place] [phone] Feb, [facility] [address] [facility] [id number] [address] [place] [phone] Feb, [facility] [address] [id number] [address] [place] [address], [place] [address] Feb, [facility] [address] [id number] [address] [place] [address], [place] [address] Jan, [facility] [address] [id number] [address] [place] [address], [place] [address] Jan, [facility] [address] [id number] [address] [place] [address], [place] [address] Jan, [facility] [address] [id number] [address] [place] [address], [place] [address] Jan, [facility] [address] [id number] [address] [place] [address], [place] [address] Nov, [facility] [address] [id number] [address] [place] [address], [place] [address] Nov, [facility] [address] [id number] [address] [place] [address], [place] [address] Nov, [facility] [address] [id number] [address] [place] [address], [place] [address] Nov, [facility] [address] [id number] [address] [place] [address], [place] [address] Nov, [facility] [address] [id number] [address] [place] [address], [place] [address] Nov, [facility] [address] [id number] [address] [place] [address], [place] [address] Nov, [facility] [address] [id number] [address] [place] [address], [place] [address] Nov, [facility] [address] [id number] [address] [place] [address], [place] [address] Nov, [facility] [address] [id number] [address] [place] [address], [place] [address] Nov, [facility] [address] [id number] [address] [place] [address], [place] [address] 13 Nov, 2013 [facility] [address] [id number] [address] [place] [address], [place] [address] 07 Nov, 2013 [facility] [address] [id number] [address] [place] [address], [place] [address] 07 Nov, 2013 [facility] [address] [id number] [address] [place] [address], [place] [address] 30 Sep, 2013 [facility] [address] [id number] [address] [place] [address], [place] [address] 30 Sep, 2013 [facility] [address] [id number] [address] [place] [address], [place] [address] 26 Sep, 2013 [facility] [address] [id number] [address] [place] [address], [place] [address] 26 Sep, 2013 [facility] [address] [id number] [address] [place] [address], [place] [address] 08 Sep, 2013 [facility] [address] [id number] [address] [place] [address], [place] [address] 08 Sep, 2013 [facility] [address] [id number] [address] [place] [address], [place] [address] 04 Sep, 2013 [facility] [address] [id number] [address] [place] [address], [place] [address] 04 Sep, 2013 [facility] [address] [id number] [address] [place] [address], [place] [address] 04 Sep, 2013 [facility] [address] [id number] [address] [place] [address], [place] [address] 04 Sep, 2013 [facility] [address] [id number] [address] [place] [address], [place] [address] 04 Sep, 2013 [facility] [address] [id number] [address] [place] [address], [place] [address] 04 Oct, 2013 [facility] [address] [id number] [address] [place] [address], [place] [address] Sep, [facility] [address] [id number] [facility] [place] [address] Sep, [facility] [address] [id number] [facility] [place] [address] Sep, [facility] [address] [id number] [facility] [place] [address] Sep, [facility] [address] [id number] [address] [place] [address], [place] [address] Sep, [facility] [address] [id number] [address] [place] [address], [place] [address] Sep, [facility] [address] [id number] [address] [place] [address], [place] [address] Sep, [facility] [address] [id number] [address] [place] [address], [place] [address] Sep, [facility] [address] [id number] [address] [place] [address], [place] [address] Aug, [facility] [address] [id number] [address] [place] [address], [place] [address] Aug, [facility] [address] [id number] [address] [place] [address], [place] [address] Aug, [facility] [address] [id number] [address] [place] [address], [place] [address] Aug, [facility] [address] [id number] [address] [place] [address], [place] [address] Jul, [facility] [address] [id number] [address] [place] [address], [place] [address] Jul, [facility] [address] [id number] [address] [place] [address], [place] [address] Jul, [facility] [address] [id number] [address] [place] [address], [place] [address] Jul, [facility] [address] [id number] [address] [place] [address], [place] [address] Jul, [facility] [address] [id number] [address] [place] [address], [place] [address] Jul, [facility] [address] [id number] [address] [place] [address], [place] [address] June, [facility] [address] [id number] [address] [place] [address], [place] [address] June, [facility] [address] [id number] [address] [place] [address], [place] [address] June, [facility] [address] [id number] [address] [place] [address], [place] [address] June, [facility] [address] [id number] [address] [place] [address], [place] [address] June, [facility] [address] [id number] [address] [place] [address], [place] [address] June, [facility] [address] [id number] [address] [place] [address], [place] [address] May, [facility] [address] [id number] [address] [place] [address], [place] [address] May, [facility] [address] [id number] [address] [place] [address], [place] [address] May, [facility] [address] [id number] [address] [place] [address], [place] [address] May, [facility] [address] [id number] [address] [place] [address], [place] [address] May, [facility] [address] [id number] [address] [place] [address], [place] [address] May, [facility] [address] [id number] [address] [place] [address], [place] [address] May, [facility] [address] [id number] [address] [place] [address], [place] [address] May, [facility] [address] [id number] [facility] [place] [address] May, [facility] [address] [id number] [facility] [place] [address] May, [facility] [address] [id number] [facility] [place] [address] Apr, [facility] [address] [id number] [facility] [place] [address] Apr, [facility] [address] [id number] [facility] [place] [address] 10 Apr, 2013 [facility] [address] [id number] [address] [place] [address], [place] [address] 10 Apr, 2013 [facility] [address] [id number] [address] [place] [address], [place] [address] Apr, [facility] [address] [id number] [address] [place] [address], [place] [address] Apr, [facility] [address] [id number] [address] [place] [address], [place] [address] Apr, [facility] [address] [id number] [address] [place] [address], [place] [address] Apr, [facility] [address] [id number] [address] [place] [address], [place] [address] Apr, [facility] [address] [id number] [address] [place] [address], [place] [address] Apr, [facility] [address] [id number] [address] [place] [address], [place] [address] Apr, [facility] [address] [id number] [address] [place] [address], [place] [address] Apr, [facility] [address] [id number] [address] [place] [address], [place] [address] Mar, [facility] [address] [id number] [address] [place] [address], [place] [address] Mar, [facility] [address] [id number] [address] [place] [address], [place] [address] Mar, [facility] [address] [id number] [address] [place] [address], [place] [address] Mar, [facility] [address] [id number] [address] [place] [address], [place] [address] Feb, [facility] [address] [id number] [address] [place] [address], [place] [address] Feb, [facility] [address] [id number] [address] [place] [address], [place] [address] Feb, [facility] [address] [id number] [address] [place] [address], [place] [address] Feb, [facility] [address] [id number] [address] [place] [address], [place] [address] Feb, [facility] [address] [id number] [address] [place] [address], [place] [address] Feb, [facility] [address] [id number] [address] [place] [address], [place] [address] Feb, [facility] [address] [id number] [address] [place] [address], [place] [address] Feb, [facility] [address] [id number] [address] [place] [address], [place] [address] Feb, [facility] [address] [id number] [address] [place] [address], [place] [address] Feb, [facility] [address] [id number] [address] [place] [address], [place] [address] Jan, [facility] [address] [id number] [address] [place] [address], [place] [address] Jan, [facility] [address] [id number] [address] [place] [address], [place] [address] Jan, [facility] [address] [id number] [address] [place] [address], [place] [address] Jan, [facility] [address] [id number] [address] [place] [address], [place] [address] Jan, [facility] [address] [id number] [address] [place] [address], [place] [address] Jan, [facility] [address] [id number] [address] [place] [address], [place] [address] Jan, [facility] [address] [id number] [address] [place] [address], [place] [address] Jan, [facility] [address] [id number] [address] [place] [address], [place] [address] Jan, [facility] [address] [id number] [address] [place] [address], [place] [address] Dec, [facility] [address] [id number] [address] [place] [address], [place] [address] Dec, [facility] [address] [id number] [address] [place] [address], [place] [address] Dec, [facility] [address] [id number] [address] [place] [address], [place] [address] Dec, [facility] [address] [id number] [address] [place] [address], [place] [address] Nov, [facility] [address] [id number] [address] [place] [address], [place] [address] Nov, [facility] [address] [id number] [address] [place] [address], [place] [address] Nov, [facility] [address] [id number] [address] [place] [address], [place] [address] Nov, [facility] [address] [id number] [address] [place] [address], [place] [address] Nov, [facility] [address] [id number] [address] [place] [address], [place] [address] Nov, [facility] [address] [id number] [address] [place] [address], [place] [address] Oct, [facility] [address] [id number] [address] [place] [address], [place] [address] Oct, [facility] [address] [id number] [address] [place] [address], [place] [address] Sep, [facility] [address] [id number] [address] [place] [address], [place] [address] Sep, [facility] [address] [id number] [address] [place] [address], [place] [address] Sep, [facility] [address] [id number] [address] [place] [address], [place] [address] Sep, [facility] [address] [id number] [address] [place] [address], [place] [address] Aug, [facility] [address] [id number] [address] [place] [address], [place] [address] Aug, [facility] [address] [id number] [address] [place] [address], [place] [address] Aug, [facility] [address] [id number] [address] [place] [address], [place] [address] Jul, [facility] [address] [id number] [address] [place] [address], [place] [address] Jul, [facility] [address] [id number] [address] [place] [address], [place] [address] Jul, [facility] [address] [id number] [address] [place] [address], [place] [address] Jul, [facility] [address] [id number] [address] [place] [address], [place] [address] June, [facility] [address] [id number] [address] [place] [address], [place] [address] June, [facility] [address] [id number] [address] [place] [address], [place] [address] 30 May, 2012 [facility] [address] [id number] [address] [place] [address], [place] [address] 03 May, 2012 [facility] [address] [id number] [address] [place] [address], [place] [address] 29 Apr, 2012 [facility] [address] [id number] [address] [place] [address], [place] [address] Apr, [facility] [address] [id number] [address] [place] [address], [place] [address] 18 Mar, 2012 [facility] [address] [id number] [address] [place] [address], [place] [address] Mar, [facility] [address] [id number] [address] [place] [address], [place] [address] 31 Feb, 2012 [facility] [address] [id number] [address] [place] [address], [place] [address] 24 Feb, 2012 [facility] [address] [id number] [address] [place] [address], [place] [address] 18 Feb, 2012 [facility] [address] [id number] [address] [place], [place] [address], [place] [id number] 17 Feb, 2012 [facility] [address] [id number] [address] [place] [address], [place] [address] 17 Feb, 2012 [facility] [address] [id number] [address] [place] [address], [place] [address] 16 Feb, 2012 [facility] [address] [id number] [address] [place] [address], [place] [phone] 16 Feb, 2012 [facility] [address] [id number] [address] [place] [address], [place] [address] 14 Feb, 2012 [facility] [address] [id number] [address] [place] [address], [place] [address] 11 Feb, 2012 [facility] [address] [id number] [address] [place] [address], [place] [address] Jan, [facility] [address] [id number] [address] [place] [address], [place] [address] Jan, [facility] [address] [id number] [address] [place] [address], [place] [address] Jan, [facility] [address] [id number] [address] [place] [address], [place] [address] Jan, [facility] [address] [id number] [address] [place] [address], [place] [address] Dec, [facility] [address] [id number] [address] [place] [address], [place] [address] Dec, [facility] [address] [id number] [address] [place] [address], [place] [address] Dec, [facility] [address] [id number] [address] [place] [address], [place] [address] Dec, [facility] [address] [id number] [address] [place] [address], [place] [address] Oct, [facility] [address] [id number] [address] [place] [address], [place] [address] Sep, [facility] [address] [id number] [address] [place] [address], [place] [address] Sep, [facility] [address] [id number] [address] [place] [address], [place] [address] Aug, [facility] [address] [id number] [address] [place] [address], [place] [address] Jul, [facility] [address] [id number] [address] [place] [address], [place] [address] June, [facility] [address] [id number] [address] [place] [address], [place] [address] June, [facility] [address] [id number] [address] [place] [address], [place] [address] May, [facility] [address] [id number] [address] [place] [phone] Apr, [facility] [address] [id number] [address] [place] [id number] Mar, [facility] [address] [facility] [id number] [address] [place] [phone] Mar, [facility] [address] [facility] [id number] [address] [place] [phone] Feb, [facility] [address] [facility] [id number] [address] [place] [phone] Dec, [facility] [address] [facility] [id number] [address] [place] [phone] Nov, [facility] [address] [facility] [id number] [address] [place] [phone] Sep, [facility] [address] [facility] [id number] [address] [place] [phone] Aug, IMMUNIZATIONS No Known Immunizations SOCIAL HISTORY [...]
--- OUTSIDE RECORDS SUMMARY | 2019-07-02 15:38 | XMS REPORT ---
Author Author Madina LOZOYA Organization [facility] Address [address] [place] [address] Care Team Providers Care Environmental Consultant Name Role Phone HUMA LOZOYA Unavailable PROBLEMS Type Condition ICD9-CM Code MRF83-PR Code Onset Dates Condition S tatus SNOMED Code Problem Asthma J45.909 Active 866279628 Problem Alcoholism F10.20 Active 9126629 Problem Arthritis M19.90 Active 6606890 Problem Other chronic pain G89.29 Active 8 7492480 Problem Bipolar disorder F31.9 Active 137 38825 Problem Closed fracture of shaft of right fibula, unspecified fracture morphology, initial encounter S82.401A Active 51799589 Problem Major depressive disorder, single episode F32.9 Active 35034789 Problem Arthropathy, unspecified M12.9 Activ e [id number] ALLERGIES No Information ENCOUNTERS Encounter Location Date Diagnosis [facility] [id number] [place] [phone] Apr, [facility] [id number] [place] [address] [phone] Apr, Cough R05 and Hyperinflation of lungs R09.89 [facility] [address] [facility] [place] [id number] [address] [place] [address] Dec, Arthritis M19.90 ; Alcoholis m F10.20 ; Encounter for immunization Z23 and Breast cancer screening by mammogram Z12.31 [facility] [address] [facility] [place] [id number] [address] [place] [address] Sep, [facility] [address] [id number] [address] [place] [address] Sep, Arthropathy of right ankle M 19.071 [facility] [address] [id number] [address] [place] [address] Aug, Pain in right ankle and join ts of right foot M25.571 and Other chronic pain G89.29 [facility] [address] [facility] [place] [id number] [address] [place] [address] Jul, [facility] [address] [facility] [place] [id number] [address] [place] [address] Apr, [facility] [address] [facility] [place] [id number] [address] [place] [address] Apr, Injury of right ankle, initi al encounter S99.911A and Encounter for immunization Z23 [address] [facility] [place] [id number] [address] [place] [address] Dec, [address] [address] [facility] [place] [id number] [address] [place] [address] Nov, Pain in right ankle and join ts of right foot M25.571 ; Other chronic pain G89.29 and Post-traumatic arthritis of right ankle M19.171 [place] [address] [facility] [place] [id number] [address] [place] [address] Oct, Arthritis M19.90 [place] [address] [facility] [place] [id number] [address] [place] [address] Aug, Arthritis M19.90 [address] [address] [facility] [place] [id number] [address] [place] [address] Aug, [place] [address] [facility] [place] [id number] [address] [place] [address] Jul, [place] [address] [facility] [place] [id number] [address] [place] [address] June, Arthropathy, unspecified M12 .9 [place] [address] [facility] [place] [id number] [address] [place] [address] May, Asthma J45.909 and Major dep ressive disorder, single episode F32.9 [facility] [address] [id number] [address] [place] [address] Mar, Closed fracture of shaft of right fibula, unspecified fracture morphology, initial encounter S82.401A [facility] [address] [facility] [place] [id number] [address] [place] [address] Feb, [facility] [address] [facility] [place] [id number] [address] [place] [address] Feb, [facility] [address] [facility] [place] [id number] [address] [place] [address] Nov, [facility] [address] [facility] [place] [id number] [address] [place] [address] Nov, Bipolar disorder F31.9 ; Enc ounter for immunization Z23 and Asthma J45.909 [facility] [address] [facility] [place] [id number] [address] [place] [address] Aug, [facility] [address] [id number] [address] [place] [address] May, [facility] [address] [facility] [place] [id number] [address] [place] [address] Apr, [facility] [address] [id number] [address] [place] [address] Apr, [facility] [address] [facility] [place] [id number] [address] [place] [address] Apr, URI (upper respiratory infec tion) J06.[address]9 [facility] [address] [facility] [place] [id number] [address] [place] [address] Feb, [facility] [address] [facility] [place] [id number] [address] [place] [address] Feb, Asthma J45.909 and Alcoholis m F10.20 [facility] [address] [facility] [place] [id number] [address] [place] [address] Jan, [facility] [address] [id number] [address] [place] [address] Jan, [facility] [address] [id number] [address] [place] [address] Jan, [facility] [address] [id number] [address] [place] [address] Nov, Alcoholism F10.20 [address] Anxiet y F41.9 [facility] [address] [id number] [address] [place] [address] Jul, Anxiety 300.00 and [address] 716.90 [facility] [address] [id number] [address] [place] [address] Jul, [facility] [address] [id number] [address] [place] [address] Jul, Anxiety state 300.00 [facility] [address] [facility] [place] [id number] [address] [place] [address] May, [facility] [address] [id number] [address] [place] [address] May, [facility] [address] [facility] [place] [id number] [address] [place] [address] Apr, [facility] [address] [facility] [place] [id number] [address] [place] [address] Apr, [facility] [address] [facility] [place] [id number] [address] [place] [address] Mar, [facility] [address] [id number] [address] [place] [address] Mar, [facility] [address] [facility] [place] [id number] [address] [place] [address] Feb, [facility] [address] [id number] [address] [place] [address] Feb, [facility] [address] [facility] [place] [id number] [address] [place] [address] Feb, [facility] [address] [id number] [address] [place] [address] Feb, [facility] [address] [id number] [address] [place] [address], [place] [address] Jan, [facility] [address] [id number] [address] [place] [address], [place] [address] Jan, [facility] [address] [id number] [address] [place] [address], [place] [address] Jan, [facility] [address] [id number] [address] [place] [address], [place] [address] Jan, [facility] [address] [id number] [address] [place] [address], [place] [address] Nov, [facility] [address] [id number] [address] [place] [address], [place] [address] Nov, [facility] [address] [id number] [address] [place] [address], [place] [address] Nov, [facility] [address] [id number] [address] [place] [address], [place] [address] Nov, [facility] [address] [id number] [address] [place] [address], [place] [address] Nov, [facility] [address] [id number] [address] [place] [address], [place] [address] Nov, [facility] [address] [id number] [address] [place] [address], [place] [address] Nov, [facility] [address] [id number] [address] [place] [address] Nov, [facility] [address] [id number] [address] [place] [address], [place] [address] Nov, [facility] [address] [id number] [address] [place] [address], [place] [address] Nov, [facility] [address] [id number] [address] [place] [address], [place] [address] Nov, [facility] [address] [id number] [address] [place] [address], [place] [address] 07 Nov, 2013 [facility] [address] [id number] [address] [place] [address], [place] [address] 07 Nov, 2013 [facility] [address] [id number] [address] [place] [address], [place] [address] 30 Oct, 2013 [facility] [address] [id number] [address] [place] [address], [place] [address] 30 Sep, 2013 [facility] [address] [id number] [address] [place] [address], [place] [address] 26 Oct, 2013 [facility] [address] [id number] [address] [place] [address], [place] [address] 26 Oct, 2013 [facility] [address] [id number] [address] [place] [address], [place] [address] 08 Oct, 2013 [facility] [address] [id number] [address] [place] [address], [place] [address] 08 Oct, 2013 [facility] [address] [id number] [address] [place] [address], [place] [address] 04 Sep, 2013 [facility] [address] [id number] [address] [place] [address], [place] [address] 04 Oct, 2013 [facility] [address] [id number] [address] [place] [address], [place] [address] 04 Oct, 2013 [facility] [address] [id number] [address] [place] [address], [place] [address] 04 Oct, 2013 [facility] [address] [id number] [address] [place] [address], [place] [address] 04 Oct, 2013 [facility] [address] [id number] [address] [place] [address], [place] [address] 04 Oct, 2013 [facility] [address] [id number] [address] [place] [address], [place] [address] Sep, [facility] [address] [id number] [address] [place] [address], [place] [address] Sep, [facility] [address] [id number] [facility] [place] [address] Sep, [facility] [address] [id number] [facility] [place] [address] Sep, [facility] [address] [id number] [facility] [place] [address] Sep, [facility] [address] [id number] [address] [place] [address], [place] [address] Sep, [facility] [address] [id number] [address] [place] [address], [place] [address] Sep, [facility] [address] [id number] [address] [place] [address], [place] [address] Sep, [facility] [address] [id number] [address] [place] [address], [place] [address] Aug, [facility] [address] [id number] [address] [place] [address], [place] [address] Aug, [facility] [address] [id number] [address] [place] [address], [place] [address] Aug, [facility] [address] [id number] [address] [place] [address], [place] [address] Aug, [facility] [address] [id number] [address] [place] [address], [place] [address] Jul, [facility] [address] [id number] [address] [place] [address], [place] [address] Jul, [facility] [address] [id number] [address] [place] [address], [place] [address] Jul, [facility] [address] [id number] [address] [place] [address], [place] [address] Jul, [facility] [address] [id number] [address] [place] [address], [place] [address] Jul, [facility] [address] [id number] [address] [place] [address], [place] [address] Jul, [facility] [address] [id number] [address] [place] [address], [place] [address] June, [facility] [address] [id number] [address] [place] [address], [place] [address] June, [facility] [address] [id number] [address] [place] [address], [place] [address] June, [facility] [address] [id number] [address] [place] [address], [place] [address] June, [facility] [address] [id number] [address] [place] [address], [place] [address] June, [facility] [address] [id number] [address] [place] [address], [place] [address] June, [facility] [address] [id number] [address] [place] [address], [place] [address] May, [facility] [address] [id number] [address] [place] [address], [place] [address] May, [facility] [address] [id number] [address] [place] [address], [place] [address] May, [facility] [address] [id number] [address] [place] [address], [place] [address] May, [facility] [address] [id number] [address] [place] [address], [place] [address] May, [facility] [address] [id number] [address] [place] [address], [place] [address] May, [facility] [address] [id number] [address] [place] [address], [place] [address] May, [facility] [address] [id number] [address] [place] [address], [place] [address] May, [facility] [address] [id number] [address] [place] [address], [place] [address] May, [facility] [address] [id number] [facility] [place] [address] May, [facility] [address] [id number] [facility] [place] [address] Apr, [facility] [address] [id number] [facility] [place] [address] Apr, [facility] [address] [id number] [facility] [place] [address] Apr, [facility] [address] [id number] [facility] [place] [address] Apr, [facility] [address] [id number] [address] [place] [address], [place] [address] Apr, [facility] [address] [id number] [address] [place] [address], [place] [address] Apr, [facility] [address] [id number] [address] [place] [address], [place] [address] Apr, [facility] [address] [id number] [address] [place] [address], [place] [address] Apr, [facility] [address] [id number] [address] [place] [address], [place] [address] Apr, [facility] [address] [id number] [address] [place] [address], [place] [address] Apr, [facility] [address] [id number] [address] [place] [address], [place] [address] Apr, [facility] [address] [id number] [address] [place] [address], [place] [address] Apr, [facility] [address] [id number] [address] [place] [address], [place] [address] Mar, [facility] [address] [id number] [address] [place] [address], [place] [address] Mar, [facility] [address] [id number] [address] [place] [address], [place] [address] Mar, [facility] [address] [id number] [address] [place] [address], [place] [address] Mar, [facility] [address] [id number] [address] [place] [address], [place] [address] Feb, [facility] [address] [id number] [address] [place] [address], [place] [address] Feb, [facility] [address] [id number] [address] [place] [address], [place] [address] Feb, [facility] [address] [id number] [address] [place] [address], [place] [address] Feb, [facility] [address] [id number] [address] [place] [address], [place] [address] Feb, [facility] [address] [id number] [address] [place] [address], [place] [address] Feb, [facility] [address] [id number] [address] [place] [address], [place] [address] Feb, [facility] [address] [id number] [address] [place] [address], [place] [address] Feb, [facility] [address] [id number] [address] [place] [address], [place] [address] Feb, [facility] [address] [id number] [address] [place] [address], [place] [address] Feb, [facility] [address] [id number] [address] [place] [address], [place] [address] Jan, [facility] [address] [id number] [address] [place] [address], [place] [address] Jan, [facility] [address] [id number] [address] [place] [address], [place] [address] Jan, [facility] [address] [id number] [address] [place] [address], [place] [address] Jan, [facility] [address] [id number] [address] [place] [address], [place] [address] Jan, [facility] [address] [id number] [address] [place] [address], [place] [address] Jan, [facility] [address] [id number] [address] [place] [address], [place] [address] Jan, [facility] [address] [id number] [address] [place] [address], [place] [address] Jan, [facility] [address] [id number] [address] [place] [address], [place] [address] Jan, [facility] [address] [id number] [address] [place] [address], [place] [address] Dec, [facility] [address] [id number] [address] [place] [address], [place] [address] Dec, [facility] [address] [id number] [address] [place] [address], [place] [address] Dec, [facility] [address] [id number] [address] [place] [address], [place] [address] Dec, [facility] [address] [id number] [address] [place] [address], [place] [address] Nov, [facility] [address] [id number] [address] [place] [address], [place] [address] Nov, [facility] [address] [id number] [address] [place] [address], [place] [address] Nov, [facility] [address] [id number] [address] [place] [address], [place] [address] Nov, [facility] [address] [id number] [address] [place] [address], [place] [address] Nov, [facility] [address] [id number] [address] [place] [address], [place] [address] Nov, [facility] [address] [id number] [address] [place] [address], [place] [address] Oct, [facility] [address] [id number] [address] [place] [address], [place] [address] Oct, [facility] [address] [id number] [address] [place] [address], [place] [address] Sep, [facility] [address] [id number] [address] [place] [address], [place] [address] Sep, [facility] [address] [id number] [address] [place] [address], [place] [address] Sep, [facility] [address] [id number] [address] [place] [address], [place] [address] Sep, [facility] [address] [id number] [address] [place] [address], [place] [address] Aug, [facility] [address] [id number] [address] [place] [address], [place] [address] Aug, [facility] [address] [id number] [address] [place] [address], [place] [address] Aug, [facility] [address] [id number] [address] [place] [address], [place] [address] Jul, [facility] [address] [id number] [address] [place] [address], [place] [address] Jul, [facility] [address] [id number] [address] [place] [address], [place] [address] Jul, [facility] [address] [id number] [address] [place] [address], [place] [address] Jul, [facility] [address] [id number] [address] [place] [address], [place] [address] June, [facility] [address] [id number] [address] [place] [address], [place] [address] June, [facility] [address] [id number] [address] [place] [address], [place] [address] May, [facility] [address] [id number] [address] [place] [address], [place] [address] 03 May, 2012 [facility] [address] [id number] [address] [place] [address], [place] [address] 29 Apr, 2012 [facility] [address] [id number] [address] [place] [address], [place] [address] 19 Apr, 2012 [facility] [address] [id number] [address] [place] [address], [place] [address] 18 Mar, 2012 [facility] [address] [id number] [address] [place] [address], [place] [address] Mar, [facility] [address] [id number] [address] [place] [address], [place] [address] 31 Feb, 2012 [facility] [address] [id number] [address] [place] [address], [place] [address] 24 Feb, 2012 [facility] [address] [id number] [address] [place] [address], [place] [address] 18 Feb, 2012 [facility] [address] [id number] [address] [place] [address], [place] [address] 17 Feb, 2012 [facility] [address] [id number] [address] [place] [address], [place] [address] 17 Feb, 2012 [facility] [address] [id number] [address] [place] [address], [place] [address] 16 Feb, 2012 [facility] [address] [id number] [address] [place] [address], [place] [address] 16 Feb, 2012 [facility] [address] [id number] [address] [place] [address], [place] [address] 14 Feb, 2012 [facility] [address] [id number] [address] [place] [address], [place] [address] 11 Feb, 2012 [facility] [address] [id number] [address] [place] [address], [place] [address] Jan, [facility] [address] [id number] [address] [place] [address], [place] [address] Jan, [facility] [address] [id number] [address] [place] [address], [place] [address] Jan, [facility] [address] [id number] [address] [place] [address], [place] [address] Jan, [facility] [address] [id number] [address] [place] [address], [place] [address] Dec, [facility] [address] [id number] [address] [place] [address], [place] [address] Dec, [facility] [facility] [address] [id number] [address] [place] [address], [place] [address] Dec, [facility] [address] [id number] [address] [place] [address], [place] [address] Dec, [facility] [address] [id number] [address] [place] [address], [place] [address] Oct, [facility] [address] [id number] [address] [place] [address], [place] [address] Sep, [facility] [address] [id number] [address] [place] [address], [place] [address] Sep, [facility] [address] [id number] [address] [place] [address], [place] [address] Aug, [facility] [address] [id number] [address] [place] [address], [place] [address] Jul, [facility] [address] [id number] [address] [place] [address], [place] [address] June, [facility] [address] [id number] [address] [place] [address], [place] [address] June, [facility] [address] [id number] [address] [place] [address], [place] [address] May, [facility] [address] [id number] [address] [place] [address], [place] [address] Apr, [facility] [address] [id number] [address] [place] [id number] Mar, [facility] [address] [facility] [place] [id number] [address] [place] [id number] Mar, [facility] [address] [facility] [place] [id number] [address] [place] [id number] Feb, [facility] [address] [facility] [place] [id number] [address] [place] [id number] Dec, [facility] [address] [facility] [place] [id number] [address] [place] [id number] Nov, [facility] [address] [facility] [place] [id number] [address] [place] [id number] Sep, [facility] [address] [facility] [place] [id number] [address] [place] [phone] Aug, IMMUNIZATIONS No Known Immunizations SOCIAL HISTORY [...]
--- NOTE | 2019-07-02 15:39 | ED General ---
General Stated Complaint: ETOH Source of Information: Patient Exam Limitations: No Limitations History of Present Illness Date Seen by Provider: July 02, 2019 Time Seen by Provider: 15:37 Initial Comments To ER per EMS from home with reports that she is sick from alcohol. She went to [facility] yesterday. Upon arrival here she states she would just like to go home because she is sleeping with her neighbor Tramaine payne and is not sure why she is here. Timing/Duration: 1-2 Days Severity: Moderate Allergies and Home Medications Allergies Coded Allergies: No Known Drug Allergies (Unverified , 07/20/12) Home Medications Aspirin 81 Mg Tablet.dr, 81 MG PO DAILY, (Reported) Buspirone HCl 10 Mg Tablet, 10 MG PO BID, (Reported) Cefpodoxime Proxetil 200 Mg Tablet, 200 MG PO BID Prescribed by: FINESSE DESAI on 05/04/15 1211 Diclofenac Sodium 75 Mg Tablet.dr, 75 MG PO BID, (Reported) Furosemide 40 Mg Tablet, 40 MG PO DAILY, (Reported) Gabapentin 300 Mg Capsule, 300 MG PO TID, (Reported) Hydrocodone/Acetaminophen 1 Each Tablet, 1 EACH PO Q4H PRN for PAIN Prescribed by: LI LOPEZ on 03/03/16 1620 Levomilnacipran Hydrochloride 80 Mg Cap.sa.24h, 80 MG PO DAILY, (Reported) Loratadine 10 Mg Tablet, 10 MG PO DAILY, (Reported) Lorazepam 0.5 Mg Tablet, 0.5 MG PO DAILY PRN for ANXIETY, (Reported) Multivitamin 1 Each Tablet, 1 TAB PO DAILY, (Reported) Potassium Chloride 20 Meq Tab.er.prt, 20 MEQ PO DAILY, (Reported) Quetiapine Fumarate 100 Mg Tablet, 100 MG PO HS, (Reported) Tizanidine HCl 4 Mg Tablet, 4 MG PO TID PRN for MUSCLE SPASMS, (Reported) Patient Home Medication List Home Medication List Reviewed: Yes Review of Systems Review of Systems Constitutional: see HPI EENTM: see HPI Respiratory: no symptoms reported Cardiovascular: no symptoms reported Genitourinary: no symptoms reported Musculoskeletal: no symptoms reported Skin: no symptoms reported Psychiatric/Neurological: No Symptoms Reported Hematologic/Lymphatic: No Symptoms Reported Past Dijrogt-Cbagiw-Ddcamj Hx Patient Social History Alcohol Beverage of Choice: Beer, Whiskey, [place] Drug of Choice: CANNIBUS Type Used: Cigarettes 2nd Hand Smoke Exposure: Yes Recent Hopitalizations: No Immunizations Up To Date Tetanus Booster (TDap): Unknown PED Vaccines UTD: No Seasonal Allergies Seasonal Allergies: No Past Medical History Surgeries: Yes (CYST ON OVARY) Respiratory: Yes Sleep Apnea, COPD Currently Using CPAP: No Currently Using BIPAP: No Cardiac: No Neurological: Yes Reproductive Disorders: No Female Reproductive Disorders: Denies Sexually Transmitted Disease: No HIV/AIDS: No Genitourinary: No Gastrointestinal: No Musculoskeletal: Yes (ANKLE FRACTURE) Arthritis, Chronic Back Pain Endocrine: No HEENT: No Cancer: No Psychosocial: Yes (alcoholism) Sleep Difficulties, Anxiety, Suicide Attempts, Bipolar, Depression Integumentary: No Blood Disorders: No Family Medical History Alcoholism 19 FATHER G8 BROTHER G8 BROTHER G8 BROTHER G8 SISTER G8 SISTER FH: brain cancer G8 SISTER Neoplasm 19 MOTHER No Pertinent Family Hx Physical Exam Vital Signs Capillary Refill : Height, Weight, BMI Height: 5'3.00" Weight: 115lbs. 8.0oz. 52.340212oa; 19.00 BMI Method:Estimated General Appearance: No Apparent Distress, WD/WN, Other (alert, jovial as usual) Eyes: Bilateral Eye Normal Inspection, Bilateral Eye PERRL, Bilateral Eye EOMI Neck: Full Range of Motion, Normal Inspection Respiratory: No Accessory Muscle Use, No Respiratory Distress Gastrointestinal: Normal Bowel Sounds, Non Tender, Soft Extremity: Normal Capillary Refill, Normal Inspection Neurologic/Psychiatric: Alert, Oriented x3 Skin: Normal Color, Warm/Dry Progress/Results/Core Measures Suspected Sepsis SIRS Temperature: Pulse: Respiratory Rate: Blood Pressure / Mean: Results/Orders Vital Signs/I&O Capillary Refill : Departure Impression Primary Impression: Alcoholism Disposition: 01 HOME, SELF-CARE Condition: Stable Departure-Patient Inst. Decision time for Depature: 15:39 Referrals: HUMA LOZOYA MD (PCP/Family) Primary Care Physician Patient Instructions: Alcohol Use - When Is Drinking a Problem? LI LOPEZ [employer] SERVICES SPECIALIST July 02, 2019 15:39
--- OUTSIDE RECORDS SUMMARY | 2019-07-02 15:39 | XMS REPORT ---
Author Author Madina BARKER Organization [facility] [place] Address [address] [place] [address] Care Team Providers Care Electric Range Assembler Name Role Phone TIFFANY BARKER Unavailable PROBLEMS Type Condition ICD9-CM Code [id number] Code Onset Dates Condition S tatus SNOMED Code Problem Asthma J45.909 Active 340056852 Problem Alcoholism F10.20 Active 8434704 Problem Arthritis M19.90 Active 5585381 Problem Other chronic pain G89.29 Active 8 1832475 Problem Bipolar disorder F31.9 Active 137 21110 Problem Closed fracture of shaft of right fibula, unspecified fracture morphology, initial encounter S82.401A Active 29472375 Problem Major depressive disorder, single episode F32.9 Active 97440822 Problem Arthropathy, unspecified M12.9 Activ e [id number] ALLERGIES No Information ENCOUNTERS Encounter Location Date Diagnosis [facility] [id number] [place] [address] [phone] Apr, [facility] [id number] [place] [address] [phone] Apr, Cough R05 and Hyperinflation of lungs R09.89 [facility] [place] [address] [id number] [place] [address] Dec, Arthritis M19.90 ; Alcoholis m F10.20 ; Encounter for immunization Z23 and Breast cancer screening by mammogram Z12.31 [place] [address] [id number] [place] [phone] Sep, [facility] [place] [address] [id number] [address] [place] [address] Sep, Arthropathy of right ankle M 19.071 [place] [id number] [address] [place] [address] Aug, Pain in right ankle and join ts of right foot M25.571 and Other chronic pain G89.29 [facility] [place] [address] [id number] [address] [place] [phone] Jul, [place] [address] [facility] [id number] [address] [place] [phone] Apr, [facility] [place] [address] [facility] [id number] [address] [place] [phone] Apr, Injury of right ankle, initi al encounter S99.911A and Encounter for immunization Z23 [place] [address] [facility] [id number] [address] [place] [address] Dec, [place] [address] [facility] [id number] [address] [place] [phone] Nov, Pain in right ankle and join ts of right foot M25.571 ; Other chronic pain G89.29 and Post-traumatic arthritis of right ankle M19.171 [place] [address] [facility] [id number] [address] [place] [address] Oct, Arthritis M19.90 [place] [address] [facility] [id number] [address] [place] [address] Aug, Arthritis M19.90 [place] [address] [id number] [address] [place] [phone] Aug, [place] [address] [facility] [id number] [address] [place] [address] Jul, [place] [address] [facility] [id number] [address] [place] [phone] June, Arthropathy, unspecified M12 .9 [facility] [place] [address] [facility] [id number] [address] [place] [address] May, Asthma J45.909 and Major dep ressive disorder, single episode F32.9 [place] [id number] [address] [place] [address] Mar, Closed fracture of shaft of right fibula, unspecified fracture morphology, initial encounter S82.401A [facility] [place] [address] [id number] [address] [place] [phone] Feb, [facility] [place] [address] [facility] [id number] [address] [place] [phone] Feb, [facility] [place] [address] [facility] [id number] [address] [place] [phone] Nov, [facility] [place] [address] [facility] [id number] [address] [place] [address] Nov, Bipolar disorder F31.9 ; Enc nter for immunization Z23 and Asthma J45.909 [facility] [place] [address] [facility] [id number] [address] [place] [phone] Aug, [facility] [place] [address] [facility] [id number] [address] [place] [address] May, [facility] [place] [address] [id number] [address] [place] [address] Apr, [facility] [place] [address] [facility] [id number] [address] [place] [address] Apr, [facility] [place] [address] [facility] [id number] [address] [place] [phone] Apr, URI (upper respiratory infec tion) J06.9 and Bipolar disorder F31.9 [facility] [place] [address] [id number] [address] [place] [address] Feb, [facility] [place] [address] [id number] [address] [place] [address] Feb, Asthma J45.909 and Alcoholis m F10.20 [facility] [place] [address] [facility] [id number] [address] [place] [phone] Jan, [facility] [place] [address] [facility] [id number] [address] [place] [address] Jan, [facility] [place] [address] [facility] [id number] [address] [place] [address] Jan, [facility] [place] [address] [id number] [address] [place] [phone] Nov, Alcoholism F10.20 and Anxiet y F41.9 [facility] [place] [address] [id number] [address] [place] [address] Jul, Anxiety 300.00 and Arthropat hy 716.90 [facility] [place] [address] [id number] [address] [place] [address] Jul, [facility] [place] [address] [id number] [address] [place] [phone] Jul, Anxiety state 300.00 [facility] [place] [address] [facility] [id number] [address] [place] [phone] May, [facility] [place] [address] [id number] [address] [place] [phone] May, [facility] [place] [address] [facility] [id number] [address] [place] [phone] Apr, [facility] [place] [address] [facility] [id number] [address] [place] [phone] Apr, [facility] [place] [address] [facility] [id number] [address] [place] [phone] Mar, [facility] [place] [address] [id number] [address] [place] [address] Mar, [facility] [place] [address] [facility] [id number] [address] [place] [phone] Feb, [facility] [place] [address] [facility] [id number] [address] [place] [phone] Feb, [facility] [address] [facility] [id number] [address] [place] [phone] Feb, [facility] [address] [id number] [address] [place] [address], [place] [address] Feb, [facility] [address] [id number] [address] [place] [address], [place] [address] Jan, [facility] [address] [id number] [address] [place] [address], [place] [address] Jan, [facility] [address] [id number] [address] [place] [address], [place] [address] Jan, [facility] [address] [id number] [address] [place] [address], [place] [address] Jan, [facility] [address] [id number] [address] [place] [address], [place] [address] Nov, [facility] [address] [id number] [address] [place] [address], [place] [address] Nov, [facility] [address] [id number] [address] [place] [address], [place] [address] Nov, [facility] [address] [id number] [address] [place] [address], [place] [address] Nov, [facility] [address] [id number] [address] [place] [address], [place] [address] Nov, [facility] [address] [id number] [address] [place] [address], [place] [address] Nov, [facility] [address] [id number] [address] [place] [address], [place] [address] Nov, [facility] [address] [id number] [address] [place] [address], [place] [address] Nov, [facility] [address] [id number] [address] [place] [address], [place] [address] Nov, [facility] [address] [id number] [address] [place] [address], [place] [address] Nov, [facility] [address] [id number] [address] [place] [address], [place] [address] Nov, [facility] [address] [id number] [address] [place] [address], [place] [address] 07 Nov, 2013 [facility] [address] [id number] [address] [place] [address], [place] [address] 07 Nov, 2013 [facility] [address] [id number] [address] [place] [address], [place] [address] 30 Oct, 2013 [facility] [address] [id number] [address] [place] [address], [place] [address] 30 Oct, 2013 [facility] [address] [id number] [address] [place] [address], [place] [address] 26 Oct, 2013 [facility] [address] [id number] [address] [place] [address], [place] [address] 26 Oct, 2013 [facility] [address] [id number] [address] [place] [address], [place] [address] 08 Oct, 2013 [facility] [address] [id number] [address] [place] [address], [place] [address] 08 Oct, 2013 [facility] [address] [id number] [address] [place] [address], [place] [address] 04 Oct, 2013 [facility] [address] [id number] [address] [place] [address], [place] [address] 04 Oct, 2013 [facility] [address] [id number] [address] [place] [address], [place] [address] 04 Oct, 2013 [facility] [address] [id number] [address] [place] [address], [place] [address] 04 Sep, 2013 [facility] [address] [id number] [address] [place] [address], [place] [address] 04 Oct, 2013 [facility] [address] [id number] [address] [place] [address], [place] [address] 04 Oct, 2013 [facility] [address] [id number] [address] [place] [address], [place] [address] Sep, [facility] [address] [id number] [address] [place] [address], [place] [address] Sep, [facility] [address] [id number] [address] [place] [address], [place] [address] Sep, [facility] [address] [id number] [address] [place] [address], [place] [address] Sep, [facility] [address] [id number] [address] [place] [address], [place] [address] Sep, [facility] [address] [id number] [address] [place] [address], [place] [address] Sep, [facility] [address] [id number] [address] [place] [address], [place] [address] Sep, [facility] [address] [id number] [address] [place] [address], [place] [address] Sep, [facility] [address] [id number] [address] [place] [address], [place] [address] Aug, [facility] [address] [id number] [address] [place] [address], [place] [address] Aug, [facility] [address] [id number] [address] [place] [address], [place] [address] Aug, [facility] [address] [id number] [address] [place] [address], [place] [address] Aug, [facility] [address] [id number] [address] [place] [address], [place] [address] Jul, [facility] [address] [id number] [address] [place] [address], [place] [address] Jul, [facility] [address] [id number] [address] [place] [address], [place] [address] Jul, [facility] [address] [id number] [address] [place] [address], [place] [address] Jul, [facility] [address] [id number] [address] [place] [address], [place] [address] Jul, [facility] [address] [id number] [address] [place] [address], [place] [address] Jul, [facility] [address] [id number] [address] [place] [address], [place] [address] June, [facility] [address] [id number] [address] [place] [address], [place] [address] June, [facility] [address] [id number] [address] [place] [address], [place] [address] June, [facility] [address] [id number] [address] [place] [address], [place] [address] June, [facility] [address] [id number] [address] [place] [address], [place] [address] June, [facility] [address] [id number] [address] [place] [address], [place] [address] June, [facility] [address] [id number] [address] [place] [address], [place] [address] May, [facility] [address] [id number] [address] [place] [address], [place] [address] May, [facility] [address] [id number] [address] [place] [address], [place] [address] May, [facility] [address] [id number] [address] [place] [address], [place] [address] May, [facility] [address] [id number] [address] [place] [address], [place] [address] May, [facility] [address] [id number] [address] [place] [address], [place] [address] May, [facility] [address] [id number] [address] [place] [address], [place] [address] May, [facility] [address] [id number] [address] [place] [address], [place] [address] May, [facility] [address] [id number] [address] [place] [address], [place] [address] May, [facility] [address] [id number] [facility] [place] [address] May, [facility] [address] [id number] [address] [place] [address], [place] [address] Apr, [facility] [address] [id number] [facility] [place] [address] Apr, [facility] [address] [id number] [address] [place] [address], [place] [address] Apr, [facility] [address] [id number] [address] [place] [address], [place] [address] Apr, [facility] [address] [id number] [address] [place] [address], [place] [address] Apr, [facility] [address] [id number] [address] [place] [address], [place] [address] Apr, [facility] [address] [id number] [address] [place] [address], [place] [address] Apr, [facility] [address] [id number] [address] [place] [address], [place] [address] Apr, [facility] [address] [id number] [address] [place] [address], [place] [address] Apr, [facility] [address] [id number] [address] [place] [address], [place] [address] Apr, [facility] [address] [id number] [address] [place] [address], [place] [address] Apr, [facility] [address] [id number] [address] [place] [address], [place] [address] Apr, [facility] [address] [id number] [address] [place] [address], [place] [address] Mar, [facility] [address] [id number] [address] [place] [address], [place] [address] Mar, [facility] [address] [id number] [address] [place] [address], [place] [address] Mar, [facility] [address] [id number] [address] [place] [address], [place] [address] Mar, [facility] [address] [id number] [address] [place] [address], [place] [address] Feb, [facility] [address] [id number] [address] [place] [address], [place] [address] Feb, [facility] [address] [id number] [address] [place] [address], [place] [address] Feb, [facility] [address] [id number] [address] [place] [address], [place] [address] Feb, [facility] [address] [id number] [address] [place] [address], [place] [address] Feb, [facility] [address] [id number] [address] [place] [address], [place] [address] Feb, [facility] [address] [id number] [address] [place] [address], [place] [address] Feb, [facility] [address] [id number] [address] [place] [address], [place] [address] Feb, [facility] [address] [id number] [address] [place] [address], [place] [address] Feb, [facility] [address] [id number] [address] [place] [address], [place] [address] Feb, [facility] [address] [id number] [address] [place] [address], [place] [address] Jan, [facility] [address] [id number] [address] [place] [address], [place] [address] Jan, [facility] [address] [id number] [address] [place] [address], [place] [address] Jan, [facility] [address] [id number] [address] [place] [address], [place] [address] Jan, [facility] [address] [id number] [address] [place] [address], [place] [address] Jan, [facility] [address] [id number] [address] [place] [address], [place] [address] Jan, [facility] [address] [id number] [address] [place] [address], [place] [address] Jan, [facility] [address] [id number] [address] [place] [address], [place] [address] Jan, [facility] [address] [id number] [address] [place] [address], [place] [address] Jan, [facility] [address] [id number] [address] [place] [address], [place] [address] Dec, [facility] [address] [id number] [address] [place] [address], [place] [address] Dec, [facility] [address] [id number] [address] [place] [address], [place] [address] Dec, [facility] [address] [id number] [address] [place] [address], [place] [address] Dec, [facility] [address] [id number] [address] [place] [address], [place] [address] Nov, [facility] [address] [id number] [address] [place] [address], [place] [address] Nov, [facility] [address] [id number] [address] [place] [address], [place] [address] Nov, [facility] [address] [id number] [address] [place] [address], [place] [address] Nov, [facility] [address] [id number] [address] [place] [address], [place] [address] Nov, [facility] [address] [id number] [address] [place] [address], [place] [address] Nov, [facility] [address] [id number] [address] [place] [address], [place] [address] Oct, [facility] [address] [id number] [address] [place] [address], [place] [address] Oct, [facility] [address] [id number] [address] [place] [address], [place] [address] Sep, [facility] [address] [id number] [address] [place] [address], [place] [address] Sep, [facility] [address] [id number] [address] [place] [address], [place] [address] Sep, [facility] [address] [id number] [address] [place] [address], [place] [address] Sep, [facility] [address] [id number] [address] [place] [address], [place] [address] Aug, [facility] [address] [id number] [address] [place] [address], [place] [address] Aug, [facility] [address] [id number] [address] [place] [address], [place] [address] Aug, [facility] [address] [id number] [address] [place] [address], [place] [address] Jul, [facility] [address] [id number] [address] [place] [address], [place] [address] Jul, [facility] [address] [id number] [address] [place] [address], [place] [address] Jul, [facility] [address] [id number] [address] [place] [address], [place] [address] Jul, [facility] [address] [id number] [address] [place] [address], [place] [address] June, [facility] [address] [id number] [address] [place] [address], [place] [address] June, [facility] [address] [id number] [address] [place] [address], [place] [address] May, [facility] [address] [id number] [address] [place] [address], [place] [address] 03 May, 2012 [facility] [address] [id number] [address] [place] [address], [place] [address] 29 Apr, 2012 [facility] [address] [id number] [address] [place] [address], [place] [address] 19 Apr, 2012 [facility] [address] [id number] [address] [place] [address], [place] [address] 18 Mar, 2012 [facility] [address] [id number] [address] [place] [address], [place] [address] Mar, [facility] [address] [id number] [address] [place] [address], [place] [address] 31 Feb, 2012 [facility] [address] [id number] [address] [place] [address], [place] [address] 24 Feb, 2012 [facility] [address] [id number] [address] [place] [address], [place] [address] 18 Feb, 2012 [facility] [address] [id number] [address] [place] [address], [place] [address] 17 Feb, 2012 [facility] [address] [id number] [address] [place] [address], [place] [address] 17 Feb, 2012 [facility] [address] [id number] [address] [place] [address], [place] [address] 16 Feb, 2012 [facility] [address] [id number] [address] [place] [address], [place] [address] 16 Feb, 2012 [facility] [address] [id number] [address] [place], [place] [address], [place] [address] 14 Feb, 2012 [facility] [address] [id number] [address] [place] [address], [place] [address] 11 Feb, 2012 [facility] [address] [id number] [address] [place] [address], [place] [address] Jan, [facility] [address] [id number] [address] [place] [address], [place] [address] Jan, [facility] [address] [id number] [address] [place] [address], [place] [address] Jan, [facility] [address] [id number] [address] [place] [address], [place] [address] Jan, [facility] [address] [id number] [address] [place] [address], [place] [address] Dec, [facility] [address] [id number] [address] [place] [address], [place] [address] Dec, [facility] [address] [id number] [address] [place] [address], [place] [address] Dec, [facility] [address] [id number] [address] [place] [address], [place] [address] Dec, [facility] [address] [id number] [address] [place] [address], [place] [address] Oct, [facility] [address] [id number] [address] [place] [address], [place] [address] Sep, [facility] [address] [id number] [address] [place] [address], [place] [address] Sep, [facility] [address] [id number] [address] [place] [address], [place] [address] Aug, [facility] [address] [id number] [address] [place] [address], [place] [address] Jul, [facility] [address] [id number] [address] [place] [address], [place] [address] June, [facility] [address] [id number] [address] [place] [address], [place] [address] June, [facility] [address] [id number] [address] [place] [address], [place] [address] May, [facility] [address] [id number] [address] [place] [address], [place] [address] Apr, [facility] [address] [id number] [address] [place] [id number] 29 Mar, 2011 [facility] [place] [address] [facility] [id number] [address] [place] [id number] Mar, [facility] [place] [address] [facility] [id number] [address] [place] [phone] Feb, [facility] [place] [address] [facility] [id number] [address] [place] [phone] Dec, [facility] [place] [address] [facility] [id number] [address] [place] [phone] Nov, [facility] [place] [address] [facility] [id number] [address] [place] [phone] Sep, [facility] [place] [address] [facility] [id number] [address] [place] [phone] Aug, IMMUNIZATIONS No Known Immunizations SOCIAL HISTORY [...]
--- OUTSIDE RECORDS SUMMARY | 2019-07-02 15:39 | XMS REPORT ---
Author Author Madina LOZOYA Organization [facility] Address [address] [place] [address] Care Team Providers Care Catering Service Manager Name Role Phone HUMA LOZOYA Unavailable PROBLEMS Type Condition ICD9-CM Code HSS59-KL Code Onset Dates Condition S tatus SNOMED Code Problem Asthma J45.909 Active 851480428 Problem Alcoholism F10.20 Active 5514242 Problem Arthritis M19.90 Active 1427760 Problem Other chronic pain G89.29 Active 8 4773944 Problem Bipolar disorder F31.9 Active 137 54239 Problem Closed fracture of shaft of right fibula, unspecified fracture morphology, initial encounter S82.401A Active 83868335 Problem Major depressive disorder, single episode F32.9 Active 56046645 Problem Arthropathy, unspecified M12.9 Activ e [id number] ALLERGIES No Information ENCOUNTERS Encounter Location Date Diagnosis [facility] [id number] [place] [phone] Apr, [facility] [id number] [place] [phone] Apr, Cough R05 and Hyperinflation of lungs R09.89 [facility] [address] [facility] [id number] [address] [place] [address] Dec, Arthritis M19.90 ; Alcoholis m F10.20 ; Encounter for immunization Z23 and Breast cancer screening by mammogram Z12.31 [facility] [address] [facility] [id number] [address] [place] [address] Sep, [facility] [address] [id number] [address] [place] [address] Sep, Arthropathy of right ankle M 19.071 [facility] [address] [id number] [address] [place] [address] Aug, Pain in right ankle and join ts of right foot M25.571 and Other chronic pain G89.29 [facility] [address] [facility] [id number] [address] [place] [address] Jul, [facility] [address] [facility] [id number] [address] [place] [phone] Apr, [facility] [address] [facility] [id number] [address] [place] [address] Apr, Injury of right ankle, initi al encounter S99.911A and Encounter for immunization Z23 [address] [address] [address] [facility] [id number] [address] [place] [address] Dec, [place] [address] [facility] [id number] [address] [place] [address] Nov, Pain in right ankle and join ts of right foot M25.571 ; Other chronic pain G89.29 and Post-traumatic arthritis of right ankle M19.171 [place] [address] [facility] [id number] [address] [place] [address] Oct, Arthritis M19.90 [place] [address] [facility] [id number] [address] [place] [address] Aug, Arthritis M19.90 [place] [address] [facility] [id number] [address] [place] [address] Aug, [place] [address] [facility] [id number] [address] [place] [address] Jul, [place] [address] [facility] [id number] [address] [place] [address] June, Arthropathy, unspecified M12 .9 [place] [address] [address] [facility] [id number] [address] [place] [address] May, Asthma J45.909 and Major dep ressive disorder, single episode F32.9 [facility] [address] [id number] [address] [place] [address] Mar, Closed fracture of shaft of right fibula, unspecified fracture morphology, initial encounter S82.401A [facility] [address] [facility] [id number] [address] [place] [phone] Feb, [facility] [address] [facility] [id number] [address] [place] [address] Feb, [facility] [address] [facility] [id number] [address] [place] [phone] Nov, [facility] [address] [facility] [id number] [address] [place] [address] Nov, Bipolar disorder F31.9 ; Enc ounter for immunization Z23 and Asthma J45.909 [facility] [address] [facility] [id number] [address] [place] [phone] Aug, [facility] [address] [id number] [address] [place] [address] May, [facility] [address] [facility] [id number] [address] [place] [phone] Apr, [facility] [address] [id number] [address] [place] [phone] Apr, [facility] [address] [facility] [id number] [address] [place] [phone] Apr, URI (upper respiratory infec tion) J06.9 and Bipolar disorder F31.9 [facility] [address] [facility] [id number] [address] [place] [phone] Feb, [facility] [address] [facility] [id number] [address] [place] [address] Feb, Asthma J45.909 and Alcoholis m F10.20 [facility] [address] [facility] [id number] [address] [place] [address] Jan, [facility] [address] [id number] [address] [place] [phone] Jan, [facility] [address] [id number] [address] [place] [phone] Jan, [facility] [address] [id number] [address] [place] [phone] Nov, Alcoholism F10.20 and Anxiet y F41.9 [facility] [address] [id number] [address] [place] [address] Jul, Anxiety 300.00 and Arthropat hy 716.90 [facility] [address] [id number] [address] [place] [phone] Jul, [facility] [address] [id number] [address] [place] [address] Jul, Anxiety state 300.00 [facility] [address] [facility] [id number] [address] [place] [phone] May, [facility] [address] [id number] [address] [place] [phone] May, [facility] [address] [facility] [id number] [address] [place] [phone] Apr, [facility] [address] [facility] [id number] [address] [place] [phone] Apr, [facility] [address] [facility] [id number] [address] [place] [phone] Mar, [facility] [address] [id number] [address] [place] [phone] Mar, [facility] [address] [facility] [id number] [address] [place] [phone] Feb, [facility] [address] [id number] [address] [place] [phone] Feb, [facility] [address] [facility] [id number] [address] [place] [phone] Feb, [facility] [address] [id number] [address] [place] [phone] Feb, [facility] [address] [id number] [address] [place] [address], [place] [address] Jan, [facility] [address] [id number] [address] [place] [address], [place] [address] Jan, [facility] [address] [id number] [address] [place] [address], [place] [address] Jan, [facility] [address] [id number] [address] [place] [address], [place] [address] Jan, [facility] [address] [id number] [address] [place] [address], [place] [address] Nov, [facility] [address] [id number] [address] [place] [address], [place] [address] Nov, [facility] [address] [id number] [address] [place] [address], [place] [address] Nov, [facility] [address] [id number] [address] [place] [address], [place] [address] Nov, [facility] [address] [id number] [address] [place] [address], [place] [address] Nov, [facility] [address] [id number] [address] [place] [address], [place] [address] Nov, [facility] [address] [id number] [address] [place] [address], [place] [address] Nov, [facility] [address] [id number] [address] [place] [phone] Nov, [facility] [address] [id number] [address] [place] [address], [place] [address] Nov, [facility] [address] [id number] [address] [place] [address], [place] [address] Nov, [facility] [address] [id number] [address] [place] [address], [place] [address] Nov, [facility] [address] [id number] [address] [place] [address], [place] [address] 07 Nov, 2013 [facility] [address] [id number] [address] [place] [address], [place] [address] 07 Nov, 2013 [facility] [address] [id number] [address] [place] [address], [place] [address] 30 Oct, 2013 [facility] [address] [id number] [address] [place] [address], [place] [address] 30 Sep, 2013 [facility] [address] [id number] [address] [place] [address], [place] [address] 26 Oct, 2013 [facility] [address] [id number] [address] [place] [address], [place] [address] 26 Oct, 2013 [facility] [address] [id number] [address] [place] [address], [place] [address] 08 Oct, 2013 [facility] [address] [id number] [address] [place] [address], [place] [address] 08 Oct, 2013 [facility] [address] [id number] [address] [place] [address], [place] [address] 04 Sep, 2013 [facility] [address] [id number] [address] [place] [address], [place] [address] 04 Oct, 2013 [facility] [address] [id number] [address] [place] [address], [place] [address] 04 Oct, 2013 [facility] [address] [id number] [address] [place] [address], [place] [address] 04 Oct, 2013 [facility] [address] [id number] [address] [place] [address], [place] [address] 04 Oct, 2013 [facility] [address] [id number] [address] [place] [address], [place] [address] 04 Oct, 2013 [facility] [address] [id number] [address] [place] [address], [place] [address] Sep, [facility] [address] [id number] [address] [place] [address], [place] [address] Sep, [facility] [address] [id number] [facility] [place] [address] Sep, [facility] [address] [id number] [facility] [place] [address] Sep, [facility] [address] [id number] [facility] [place] [address] Sep, [facility] [address] [id number] [address] [place] [address], [place] [address] Sep, [facility] [address] [id number] [address] [place] [address], [place] [address] Sep, [facility] [address] [id number] [address] [place] [address], [place] [address] Sep, [facility] [address] [id number] [address] [place] [address], [place] [address] Aug, [facility] [address] [id number] [address] [place] [address], [place] [address] Aug, [facility] [address] [id number] [address] [place] [address], [place] [address] Aug, [facility] [address] [id number] [address] [place] [address], [place] [address] Aug, [facility] [address] [id number] [address] [place] [address], [place] [address] Jul, [facility] [address] [id number] [address] [place] [address], [place] [address] Jul, [facility] [address] [id number] [address] [place] [address], [place] [address] Jul, [facility] [address] [id number] [address] [place] [address], [place] [address] Jul, [facility] [address] [id number] [address] [place] [address], [place] [address] Jul, [facility] [address] [id number] [address] [place] [address], [place] [address] Jul, [facility] [address] [id number] [address] [place] [address], [place] [address] June, [facility] [address] [id number] [address] [place] [address], [place] [address] June, [facility] [address] [id number] [address] [place] [address], [place] [address] June, [facility] [address] [id number] [address] [place] [address], [place] [address] June, [facility] [address] [id number] [address] [place] [address], [place] [address] June, [facility] [address] [id number] [address] [place] [address], [place] [address] June, [facility] [address] [id number] [address] [place] [address], [place] [address] May, [facility] [address] [id number] [address] [place] [address], [place] [address] May, [facility] [address] [id number] [address] [place] [address], [place] [address] May, [facility] [address] [id number] [address] [place] [address], [place] [address] May, [facility] [address] [id number] [address] [place] [address], [place] [address] May, [facility] [address] [id number] [address] [place] [address], [place] [address] May, [facility] [address] [id number] [address] [place] [address], [place] [address] May, [facility] [address] [id number] [address] [place] [address], [place] [address] May, [facility] [address] [id number] [address] [place] [address], [place] [address] May, [facility] [address] [id number] [facility] [place] [address] May, [facility] [address] [id number] [facility] [place] [address] Apr, [facility] [address] [id number] [facility] [place] [address] Apr, [facility] [address] [id number] [facility] [place] [address] Apr, [facility] [address] [id number] [facility] [place] [address] Apr, [facility] [address] [id number] [address] [place] [address], [place] [address] Apr, [facility] [address] [id number] [address] [place] [address], [place] [address] Apr, [facility] [address] [id number] [address] [place] [address], [place] [address] Apr, [facility] [address] [id number] [address] [place] [address], [place] [address] Apr, [facility] [address] [id number] [address] [place] [address], [place] [address] Apr, [facility] [address] [id number] [address] [place] [address], [place] [address] Apr, [facility] [address] [id number] [address] [place] [address], [place] [address] Apr, [facility] [address] [id number] [address] [place] [address], [place] [address] Apr, [facility] [address] [id number] [address] [place] [address], [place] [address] Mar, [facility] [address] [id number] [address] [place] [address], [place] [address] Mar, [facility] [address] [id number] [address] [place] [address], [place] [address] Mar, [facility] [address] [id number] [address] [place] [address], [place] [address] Mar, [facility] [address] [id number] [address] [place] [address], [place] [address] Feb, [facility] [address] [id number] [address] [place] [address], [place] [address] Feb, [facility] [address] [id number] [address] [place] [address], [place] [address] Feb, [facility] [address] [id number] [address] [place] [address], [place] [address] Feb, [facility] [address] [id number] [address] [place] [address], [place] [address] Feb, [facility] [address] [id number] [address] [place] [address], [place] [address] Feb, [facility] [address] [id number] [address] [place] [address], [place] [address] Feb, [facility] [address] [id number] [address] [place] [address], [place] [address] Feb, [facility] [address] [id number] [address] [place] [address], [place] [address] Feb, [facility] [address] [id number] [address] [place] [address], [place] [address] Feb, [facility] [address] [id number] [address] [place] [address], [place] [address] Jan, [facility] [address] [id number] [address] [place] [address], [place] [address] Jan, [facility] [address] [id number] [address] [place] [address], [place] [address] Jan, [facility] [address] [id number] [address] [place] [address], [place] [address] Jan, [facility] [address] [id number] [address] [place] [address], [place] [address] Jan, [facility] [address] [id number] [address] [place] [address], [place] [address] Jan, [facility] [address] [id number] [address] [place] [address], [place] [address] Jan, [facility] [address] [id number] [address] [place] [address], [place] [address] Jan, [facility] [address] [id number] [address] [place] [address], [place] [address] Jan, [facility] [address] [id number] [address] [place] [address], [place] [address] Dec, [facility] [address] [id number] [address] [place] [address], [place] [address] Dec, [facility] [address] [id number] [address] [place] [address], [place] [address] Dec, [facility] [address] [id number] [address] [place] [address], [place] [address] Dec, [facility] [address] [id number] [address] [place] [address], [place] [address] Nov, [facility] [address] [id number] [address] [place] [address], [place] [address] Nov, [facility] [address] [id number] [address] [place] [address], [place] [address] Nov, [facility] [address] [id number] [address] [place] [address], [place] [address] Nov, [facility] [address] [id number] [address] [place] [address], [place] [address] Nov, [facility] [address] [id number] [address] [place] [address], [place] [address] Nov, [facility] [address] [id number] [address] [place] [address], [place] [address] Oct, [facility] [address] [id number] [address] [place] [address], [place] [address] Oct, [facility] [address] [id number] [address] [place] [address], [place] [address] Sep, [facility] [address] [id number] [address] [place] [address], [place] [address] Sep, [facility] [address] [id number] [address] [place] [address], [place] [address] Sep, [facility] [address] [id number] [address] [place] [address], [place] [address] Sep, [facility] [address] [id number] [address] [place] [address], [place] [address] Aug, [facility] [address] [id number] [address] [place] [address], [place] [address] Aug, [facility] [address] [id number] [address] [place] [address], [place] [address] Aug, [facility] [address] [id number] [address] [place] [address], [place] [address] Jul, [facility] [address] [id number] [address] [place] [address], [place] [address] Jul, [facility] [address] [id number] [address] [place] [address], [place] [address] Jul, [facility] [address] [id number] [address] [place] [address], [place] [address] Jul, [facility] [address] [id number] [address] [place] [address], [place] [address] June, [facility] [address] [id number] [address] [place] [address], [place] [address] June, [facility] [address] [id number] [address] [place] [address], [place] [address] May, [facility] [address] [id number] [address] [place] [address], [place] [address] 03 May, 2012 [facility] [address] [id number] [address] [place] [address], [place] [address] 29 Apr, 2012 [facility] [address] [id number] [address] [place] [address], [place] [address] 19 Apr, 2012 [facility] [address] [id number] [address] [place] [address], [place] [address] 18 Mar, 2012 [facility] [address] [id number] [address] [place] [address], [place] [address] Mar, [facility] [address] [id number] [address] [place] [address], [place] [address] 31 Feb, 2012 [facility] [address] [id number] [address] [place] [address], [place] [address] 24 Feb, 2012 [facility] [address] [id number] [address] [place] [address], [place] [address] 18 Feb, 2012 [facility] [address] [id number] [address] [place] [address], [place] [address] 17 Feb, 2012 [facility] [address] [id number] [address] [place] [address], [place] [address] 17 Feb, 2012 [facility] [address] [id number] [address] [place] [address], [place] [address] 16 Feb, 2012 [facility] [address] [id number] [address] [place] [address], [place] [address] 16 Feb, 2012 [facility] [address] [id number] [address] [place] [address], [place] [address] 14 Feb, 2012 [facility] [address] [id number] [address] [place] [address], [place] [address] 11 Feb, 2012 [facility] [address] [id number] [address] [place] [address], [place] [address] Jan, [facility] [address] [id number] [address] [place] [address], [place] [address] Jan, [facility] [address] [id number] [address] [place] [address], [place] [address] Jan, [facility] [address] [id number] [address] [place] [address], [place] [address] Jan, [facility] [address] [id number] [address] [place] [address], [place] [address] Dec, [facility] [address] [id number] [address] [place] [address], [place] [address] Dec, [facility] [address] [id number] [address] [place] [address], [place] [address] Dec, [facility] [address] [id number] [address] [place] [address], [place] [address] Dec, [facility] [address] [id number] [address] [place] [address], [place] [address] Oct, [facility] [address] [id number] [address] [place] [address], [place] [address] Sep, [facility] [address] [id number] [address] [place] [address], [place] [address] Sep, [facility] [address] [id number] [address] [place] [address], [place] [address] Aug, [facility] [address] [id number] [address] [place] [address], [place] [address] Jul, [facility] [address] [id number] [address] [place] [address], [place] [address] June, [facility] [address] [id number] [address] [place] [address], [place] [address] June, [facility] [address] [id number] [address] [place] [address], [place] [address] May, [facility] [address] [id number] [address] [place] [address], [place] [address] Apr, [facility] [address] [id number] [address] [place] [address] Mar, [facility] [address] [facility] [id number] [address] [place] [id number] Mar, [facility] [address] [facility] [id number] [address] [place] [address] Feb, [facility] [address] [facility] [id number] [address] [place] [phone] Dec, [facility] [address] [facility] [id number] [address] [place] [phone] Nov, [facility] [address] [facility] [id number] [address] [place] [phone] Sep, [facility] [address] [facility] [id number] [address] [place] [phone] Aug, IMMUNIZATIONS No Known Immunizations SOCIAL HISTORY [...]
--- OUTSIDE RECORDS SUMMARY | 2019-07-02 15:39 | XMS REPORT ---
Author Author Madina LOZOYA Organization [facility] [place] Address [address] [place] [address] Care Team Providers Care Merchandise Handler Name Role Phone HUMA LOZOYA Unavailable PROBLEMS Type Condition ICD9-CM Code XPV17-DK Code Onset Dates Condition S tatus SNOMED Code Problem Asthma J45.909 Active 840694901 Problem Alcoholism F10.20 Active 2223391 Problem Arthritis M19.90 Active 2346015 Problem Other chronic pain G89.29 Active 8 3917552 Problem Bipolar disorder F31.9 Active 137 13830 Problem Closed fracture of shaft of right fibula, unspecified fracture morphology, initial encounter S82.401A Active 12417176 Problem Major depressive disorder, single episode F32.9 Active 88580408 Problem Arthropathy, unspecified M12.9 Activ e [id number] ALLERGIES No Information ENCOUNTERS Encounter Location Date Diagnosis [facility] [id number] [place] [phone] Apr, [facility] [id number] [place] [phone] Apr, Cough R05 and Hyperinflation of lungs R09.89 [facility] [place] [address] [facility] [id number] [address] [place] [address] Dec, Arthritis M19.90 ; Alcoholis m F10.20 ; Encounter for immunization Z23 and Breast cancer screening by mammogram Z12.31 [facility] [place] [address] [facility] [id number] [address] [place] [address] Sep, [facility] [place] [address] [id number] [address] [place] [address] Sep, Arthropathy of right ankle M 19.071 [facility] [place] [address] [id number] [address] [place] [address] Aug, Pain in right ankle and join ts of right foot M25.571 and Other chronic pain G89.29 [facility] [place] [address] [facility] [id number] [address] [place] [address] Jul, [facility] [place] [address] [facility] [id number] [address] [place] [address] Apr, [facility] [place] [address] [facility] [id number] [address] [place] [address] Apr, Injury of right ankle, initi al encounter S99.911A and Encounter for immunization Z23 [place] [address] [facility] [id number] [address] [place] [address] Dec, [place] [address] [facility] [id number] [address] [place] [address] Nov, Pain in right ankle and join ts of right foot M25.571 ; Other chronic pain G89.29 and Post-traumatic arthritis of right ankle M19.171 [place] [address] [facility] [id number] [address] [place] [address] Oct, Arthritis M19.90 [place] [address] [facility] [id number] [address] [place] [address] Aug, Arthritis M19.90 [place] [address] [facility] [id number] [address] [place] [address] Aug, [place] [address] [facility] [id number] [address] [place] [address] Jul, [place] [address] [facility] [id number] [address] [place] [address] June, Arthropathy, unspecified M12 .9 [place] [address] [facility] [id number] [address] [place] [address] May, Asthma J45.909 and Major dep ressive disorder, single episode F32.9 [facility] [place] [address] [id number] [address] [place] [address] Mar, Closed fracture of shaft of right fibula, unspecified fracture morphology, initial encounter S82.401A [facility] [place] [address] [facility] [id number] [address] [place] [address] Feb, [facility] [place] [address] [facility] [id number] [address] [place] [address] Feb, [facility] [place] [address] [facility] [id number] [address] [place] [address] Nov, [facility] [place] [address] [facility] [id number] [address] [place] [address] Nov, Bipolar disorder F31.9 ; Enc ounter for immunization Z23 and Asthma J45.909 [facility] [place] [address] [facility] [id number] [address] [place] [address] Aug, [facility] [place] [address] [id number] [address] [place] [address] May, [facility] [place] [address] [facility] [id number] [address] [place] [address] Apr, [facility] [place] [address] [id number] [address] [place] [address] Apr, [facility] [place] [address] [facility] [id number] [address] [place] [address] Apr, URI (upper respiratory infec tion) J06.9 and Bipolar disorder F31.9 [facility] [place] [address] [facility] [id number] [address] [place] [address] Feb, [facility] [place] [address] [facility] [id number] [address] [place] [address] Feb, Asthma J45.909 and Alcoholis m F10.20 [facility] [place] [address] [facility] [id number] [address] [place] [address] Jan, [facility] [place] [address] [id number] [address] [place] [address] Jan, [facility] [place] [address] [id number] [address] [place] [address] Jan, [facility] [place] [address] [id number] [address] [place] [address] Nov, Alcoholism F10.20 and Anxiet y F41.9 [facility] [place] [address] [id number] [address] [place] [address] Jul, Anxiety 300.00 and Arthropat hy 716.90 [facility] [place] [address] [id number] [address] [place] [address] Jul, [facility] [place] [address] [id number] [address] [place] [address] Jul, Anxiety state 300.00 [facility] [place] [address] [facility] [id number] [address] [place] [address] May, [facility] [place] [address] [id number] [address] [place] [address] May, [facility] [place] [address] [facility] [id number] [address] [place] [phone] Apr, [facility] [place] [address] [facility] [id number] [address] [place] [address] Apr, [facility] [place] [address] [facility] [id number] [address] [place] [address] Mar, [facility] [place] [address] [id number] [address] [place] [address] Mar, [facility] [place] [address] [facility] [id number] [address] [place] [address] Feb, [facility] [place] [address] [id number] [address] [place] [phone] Feb, [facility] [place] [address] [facility] [id number] [address] [place] [address] Feb, [facility] [place] [address] [id number] [address] [place] [address] Feb, [facility] [address] [id number] [address] [place] [address], [place] [address] Jan, [facility] [address] [id number] [address] [place] [address], [place] [address] Jan, [facility] [address] [id number] [address] [place] [address], [place] [address] Jan, [facility] [address] [id number] [address] [place] [address], [place] [address] Jan, [facility] [address] [id number] [address] [place] [address], [place] [address] Nov, [facility] [address] [id number] [address] [place] [address], [place] [address] Nov, [facility] [address] [id number] [address] [place] [address], [place] [address] Nov, [facility] [address] [id number] [address] [place] [address], [place] [address] Nov, [facility] [address] [id number] [address] [place] [address], [place] [address] Nov, [facility] [address] [id number] [address] [place] [address], [place] [address] Nov, [facility] [address] [id number] [address] [place] [address], [place] [address] Nov, [facility] [address] [id number] [address] [place] [phone] Nov, [facility] [address] [id number] [address] [place] [address], [place] [address] Nov, [facility] [address] [id number] [address] [place] [address], [place] [address] Nov, [facility] [address] [id number] [address] [place] [address], [place] [address] Nov, [facility] [address] [id number] [address] [place] [address], [place] [address] 07 Nov, 2013 [facility] [address] [id number] [address] [place] [address], [place] [address] 07 Nov, 2013 [facility] [address] [id number] [address] [place] [address], [place] [address] 30 Oct, 2013 [facility] [address] [id number] [address] [place] [address], [place] [address] 30 Sep, 2013 [facility] [address] [id number] [address] [place] [address], [place] [address] 26 Oct, 2013 [facility] [address] [id number] [address] [place] [address], [place] [address] 26 Oct, 2013 [facility] [address] [id number] [address] [place] [address], [place] [address] 08 Oct, 2013 [facility] [address] [id number] [address] [place] [address], [place] [address] 08 Oct, 2013 [facility] [address] [id number] [address] [place] [address], [place] [address] 04 Sep, 2013 [facility] [address] [id number] [address] [place] [address], [place] [address] 04 Oct, 2013 [facility] [address] [id number] [address] [place] [address], [place] [address] 04 Oct, 2013 [facility] [address] [id number] [address] [place] [address], [place] [address] 04 Oct, 2013 [facility] [address] [id number] [address] [place] [address], [place] [address] 04 Oct, 2013 [facility] [address] [id number] [address] [place] [address], [place] [address] 04 Oct, 2013 [facility] [address] [id number] [address] [place] [address], [place] [address] Sep, [facility] [address] [id number] [address] [place] [address], [place] [address] Sep, [facility] [address] [id number] [facility] [place] [address] Sep, [facility] [address] [id number] [facility] [place] [address] Sep, [facility] [address] [id number] [facility] [place] [address] Sep, [facility] [address] [id number] [address] [place] [address], [place] [address] Sep, [facility] [address] [id number] [address] [place] [address], [place] [address] Sep, [facility] [address] [id number] [address] [place] [address], [place] [address] Sep, [facility] [address] [id number] [address] [place] [address], [place] [address] Aug, [facility] [address] [id number] [address] [place] [address], [place] [address] Aug, [facility] [address] [id number] [address] [place] [address], [place] [address] Aug, [facility] [address] [id number] [address] [place] [address], [place] [address] Aug, [facility] [address] [id number] [address] [place] [address], [place] [address] Jul, [facility] [address] [id number] [address] [place] [address], [place] [address] Jul, [facility] [address] [id number] [address] [place] [address], [place] [address] Jul, [facility] [address] [id number] [address] [place] [address], [place] [address] Jul, [facility] [address] [id number] [address] [place] [address], [place] [address] Jul, [facility] [address] [id number] [address] [place] [address], [place] [address] Jul, [facility] [address] [id number] [address] [place] [address], [place] [address] June, [facility] [address] [id number] [address] [place] [address], [place] [address] June, [facility] [address] [id number] [address] [place] [address], [place] [address] June, [facility] [address] [id number] [address] [place] [address], [place] [address] June, [facility] [address] [id number] [address] [place] [address], [place] [address] June, [facility] [address] [id number] [address] [place] [address], [place] [address] June, [facility] [address] [id number] [address] [place] [address], [place] [address] May, [facility] [address] [id number] [address] [place] [address], [place] [address] May, [facility] [address] [id number] [address] [place] [address], [place] [address] May, [facility] [address] [id number] [address] [place] [address], [place] [address] May, [facility] [address] [id number] [address] [place] [address], [place] [address] May, [facility] [address] [id number] [address] [place] [address], [place] [address] May, [facility] [address] [id number] [address] [place] [address], [place] [address] May, [facility] [address] [id number] [address] [place] [address], [place] [address] May, [facility] [address] [id number] [address] [place] [address], [place] [address] May, [facility] [address] [id number] [facility] [place] [address] May, [facility] [address] [id number] [facility] [place] [address] Apr, [facility] [address] [id number] [facility] [place] [address] Apr, [facility] [address] [id number] [facility] [place] [address] Apr, [facility] [address] [id number] [facility] [place] [address] Apr, [facility] [address] [id number] [address] [place] [address], [place] [address] Apr, [facility] [address] [id number] [address] [place] [address], [place] [address] Apr, [facility] [address] [id number] [address] [place] [address], [place] [address] Apr, [facility] [address] [id number] [address] [place] [address], [place] [address] Apr, [facility] [address] [id number] [address] [place] [address], [place] [address] Apr, [facility] [address] [id number] [address] [place] [address], [place] [address] Apr, [facility] [address] [id number] [address] [place] [address], [place] [address] Apr, [facility] [address] [id number] [address] [place] [address], [place] [address] Apr, [facility] [address] [id number] [address] [place] [address], [place] [address] Mar, [facility] [address] [id number] [address] [place] [address], [place] [address] Mar, [facility] [address] [id number] [address] [place] [address], [place] [address] Mar, [facility] [address] [id number] [address] [place] [address], [place] [address] Mar, [facility] [address] [id number] [address] [place] [address], [place] [address] Feb, [facility] [address] [id number] [address] [place] [address], [place] [address] Feb, [facility] [address] [id number] [address] [place] [address], [place] [address] Feb, [facility] [address] [id number] [address] [place] [address], [place] [address] Feb, [facility] [address] [id number] [address] [place] [address], [place] [address] Feb, [facility] [address] [id number] [address] [place] [address], [place] [address] Feb, [facility] [address] [id number] [address] [place] [address], [place] [address] Feb, [facility] [address] [id number] [address] [place] [address], [place] [address] Feb, [facility] [address] [id number] [address] [place] [address], [place] [address] Feb, [facility] [address] [id number] [address] [place] [address], [place] [address] Feb, [facility] [address] [id number] [address] [place] [address], [place] [address] Jan, [facility] [address] [id number] [address] [place] [address], [place] [address] Jan, [facility] [address] [id number] [address] [place] [address], [place] [address] Jan, [facility] [address] [id number] [address] [place] [address], [place] [address] Jan, [facility] [address] [id number] [address] [place] [address], [place] [address] Jan, [facility] [address] [id number] [address] [place] [address], [place] [address] Jan, [facility] [address] [id number] [address] [place] [address], [place] [address] Jan, [facility] [address] [id number] [address] [place] [address], [place] [address] Jan, [facility] [address] [id number] [address] [place] [address], [place] [address] Jan, [facility] [address] [id number] [address] [place] [address], [place] [address] Dec, [facility] [address] [id number] [address] [place] [address], [place] [address] Dec, [facility] [address] [id number] [address] [place] [address], [place] [address] Dec, [facility] [address] [id number] [address] [place] [address], [place] [address] Dec, [facility] [address] [id number] [address] [place] [address], [place] [address] Nov, [facility] [address] [id number] [address] [place] [address], [place] [address] Nov, [facility] [address] [id number] [address] [place] [address], [place] [address] Nov, [facility] [address] [id number] [address] [place] [address], [place] [address] Nov, [facility] [address] [id number] [address] [place] [address], [place] [address] Nov, [facility] [address] [id number] [address] [place] [address], [place] [address] Nov, [facility] [address] [id number] [address] [place] [address], [place] [address] Oct, [facility] [address] [id number] [address] [place] [address], [place] [address] Oct, [facility] [address] [id number] [address] [place] [address], [place] [address] Sep, [facility] [address] [id number] [address] [place] [address], [place] [address] Sep, [facility] [address] [id number] [address] [place] [address], [place] [address] Sep, [facility] [address] [id number] [address] [place] [address], [place] [address] Sep, [facility] [address] [id number] [address] [place] [address], [place] [address] Aug, [facility] [address] [id number] [address] [place] [address], [place] [address] Aug, [facility] [address] [id number] [address] [place] [address], [place] [address] Aug, [facility] [address] [id number] [address] [place] [address], [place] [address] Jul, [facility] [address] [id number] [address] [place] [address], [place] [address] Jul, [facility] [address] [id number] [address] [place] [address], [place] [address] Jul, [facility] [address] [id number] [address] [place] [address], [place] [address] Jul, [facility] [address] [id number] [address] [place] [address], [place] [address] June, [facility] [address] [id number] [address] [place] [address], [place] [address] June, [facility] [address] [id number] [address] [place] [address], [place] [address] May, [facility] [address] [id number] [address] [place] [address], [place] [address] 03 May, 2012 [facility] [address] [id number] [address] [place] [address], [place] [address] 29 Apr, 2012 [facility] [address] [id number] [address] [place] [address], [place] [address] 19 Apr, 2012 [facility] [address] [id number] [address] [place] [address], [place] [address] 18 Mar, 2012 [facility] [address] [id number] [address] [place] [address], [place] [address] Mar, [facility] [address] [id number] [address] [place] [address], [place] [address] 31 Feb, 2012 [facility] [address] [id number] [address] [place] [address], [place] [address] 24 Feb, 2012 [facility] [address] [id number] [address] [place] [address], [place] [address] 18 Feb, 2012 [facility] [address] [id number] [address] [place] [address], [place] [address] 17 Feb, 2012 [facility] [address] [id number] [address] [place] [address], [place] [address] 17 Feb, 2012 [facility] [address] [id number] [address] [place] [address], [place] [address] 16 Feb, 2012 [facility] [address] [id number] [address] [place] [address], [place] [address] 16 Feb, 2012 [facility] [address] [id number] [address] [place] [address], [place] [address] 14 Feb, 2012 [facility] [facility] [address] [id number] [address] [place] [address], [place] [address] 11 Feb, 2012 [facility] [address] [id number] [address] [place] [address], [place] [address] Jan, [facility] [address] [id number] [address] [place] [address], [place] [address] Jan, [facility] [address] [id number] [address] [place] [address], [place] [address] Jan, [facility] [address] [id number] [address] [place] [address], [place] [address] Jan, [facility] [address] [id number] [address] [place] [address], [place] [address] Dec, [facility] [address] [id number] [address] [place] [address], [place] [address] Dec, [facility] [address] [id number] [address] [place] [address], [place] [address] Dec, [facility] [address] [id number] [address] [place] [address], [place] [address] Dec, [facility] [address] [id number] [address] [place] [address], [place] [address] Oct, [facility] [address] [id number] [address] [place] [address], [place] [address] Sep, [facility] [address] [id number] [address] [place] [address], [place] [address] Sep, [facility] [address] [id number] [address] [place] [address], [place] [address] Aug, [facility] [address] [id number] [address] [place] [address], [place] [address] Jul, [facility] [address] [id number] [address] [place] [address], [place] [address] June, [facility] [address] [id number] [address] [place] [address], [place] [address] June, [facility] [address] [id number] [address] [place] [address], [place] [address] May, [facility] [address] [id number] [address] [place] [address], [place] [address] Apr, [facility] [address] [id number] [address] [place] [address] Mar, [facility] [place] [address] [id number] [address] [place] [phone] Mar, [facility] [place] [address] [facility] [id number] [address] [place] [phone] Feb, [facility] [place] [address] [facility] [id number] [address] [place] [address] Dec, [facility] [place] [address] [facility] [id number] [address] [place] [address] Nov, [facility] [place] [address] [facility] [id number] [address] [place] [address] Sep, [facility] [place] [address] [facility] [id number] [address] [place] [phone] Aug, IMMUNIZATIONS No Known Immunizations SOCIAL HISTORY Never Assessed REASON FOR VISIT PLAN OF CARE VITAL SIGNS Height 66 in 2013-11-27 Weight 122 lbs 2013-11-27 Temperature 98 degrees Fahrenheit 2013-11-27 Heart Rate 74 bpm 2013-11-27 Respiratory Rate 18 2013-11-27 Blood pressure systolic 108 mmHg 2013-11-27 Blood pressure diastolic 62 mmHg 2013-11-27 MEDICATIONS Unknown Medications RESULTS No Results PROCEDURES No Known procedures INSTRUCTIONS MEDICATIONS ADMINISTERED No Known Medications MEDICAL (GENERAL) HISTORY Type Description Date Medical History asthma Medical History headache Medical History chronic pain-low back with spasms Medical History anxiety Medical History depression Hospitalization History childbirth x 4
--- OUTSIDE RECORDS SUMMARY | 2019-07-02 15:39 | XMS REPORT ---
Author Author Madina LOZOYA Organization [facility] Address [address] [place] [address] Care Team Providers Care International Trade Manager Name Role Phone HUMA LOZOYA Unavailable PROBLEMS Type Condition ICD9-CM Code MIF41-AP Code Onset Dates Condition S tatus SNOMED Code Problem Asthma J45.909 Active 013333186 Problem Alcoholism F10.20 Active 1702647 Problem Arthritis M19.90 Active 3621741 Problem Other chronic pain G89.29 Active 8 2417515 Problem Bipolar disorder F31.9 Active 137 19763 Problem Closed fracture of shaft of right fibula, unspecified fracture morphology, initial encounter S82.401A Active 38610797 Problem Major depressive disorder, single episode F32.9 Active 61293241 Problem Arthropathy, unspecified M12.9 Activ e [id number] ALLERGIES No Information ENCOUNTERS Encounter Location Date Diagnosis [facility] [id number] [place] [phone] Apr, [facility] [id number] [place] [phone] Apr, Cough R05 and Hyperinflation of lungs R09.89 [facility] [address] [facility] [id number] [address] [place] [phone] Dec, Arthritis M19.90 ; Alcoholis m F10.20 ; Encounter for immunization Z23 and Breast cancer screening by mammogram Z12.31 [facility] [address] [facility] [id number] [address] [place] [phone] Sep, [facility] [address] [id number] [address] [place] [id number] Sep, Arthropathy of right ankle M 19.071 [facility] [address] [id number] [address] [place] [id number] Aug, Pain in right ankle and join ts of right foot M25.571 and Other chronic pain G89.29 [facility] [address] [facility] [id number] [address] [place] [id number] Jul, [facility] [address] [facility] [id number] [address] [place] [id number] Apr, [facility] [address] [facility] [id number] [address] [place] [phone] Apr, Injury of right ankle, initi al encounter S99.911A and Encounter for immunization Z23 [address] [facility] [id number] [address] [place] [phone] Dec, [address] [facility] [id number] [address] [place] [phone] Nov, Pain in right ankle and join ts of right foot M25.571 ; Other chronic pain G89.29 and Post-traumatic arthritis of right ankle M19.171 [address] [facility] [id number] [address] [place] [id number] Oct, Arthritis M19.90 [address] [place] [address] [facility] [id number] [address] [place] [phone] Aug, Arthritis M19.90 [address] [facility] [id number] [address] [place] [phone] Aug, [address] [facility] [id number] [address] [place] [id number] Jul, [address] [address] [facility] [id number] [address] [place] [phone] June, Arthropathy, unspecified M12 .9 [address] [facility] [id number] [address] [place] [id number] May, Asthma J45.909 and Major dep ressive disorder, single episode F32.9 [facility] [id number] [place] [id number] Mar, Closed fracture of shaft of right fibula, unspecified fracture morphology, initial encounter S82.401A [facility] [address] [facility] [id number] [address] [place] [id number] Feb, [facility] [address] [facility] [id number] [address] [place] [phone] Feb, [facility] [address] [facility] [id number] [address] [place] [phone] Nov, [facility] [address] [facility] [id number] [address] [place] [phone] Nov, Bipolar disorder F31.9 ; Enc ounter for immunization Z23 and Asthma J45.909 [facility] [address] [facility] [id number] [address] [place] [phone] Aug, [facility] [id number] [address] [place] [phone] May, [facility] [address] [facility] [id number] [address] [place] [phone] Apr, [facility] [id number] [place] [phone] Apr, [facility] [address] [facility] [id number] [address] [place] [phone] Apr, URI (upper respiratory infec tion) J06.9 and Bipolar disorder F31.9 [facility] [address] [facility] [id number] [address] [place] [id number] Feb, [facility] [address] [facility] [id number] [address] [place] [phone] Feb, Asthma J45.909 and Alcoholis m F10.20 [facility] [address] [facility] [id number] [address] [place] [phone] Jan, [facility] [id number] [place] [phone] Jan, [facility] [address] [id number] [address] [place] [phone] Jan, [facility] [address] [id number] [address] [place] [phone] Nov, Alcoholism F10.20 and Anxiet y F41.9 [facility] [address] [id number] [address] [place] [phone] Jul, Anxiety 300.00 and Arthropat hy 716.90 [facility] [address] [id number] [address] [place] [phone] Jul, [facility] [address] [id number] [address] [place] [phone] Jul, Anxiety state 300.00 [facility] [address] [facility] [id number] [address] [place] [phone] May, [facility] [address] [id number] [address] [place] [phone] May, [facility] [address] [facility] [id number] [address] [place] [phone] Apr, [facility] [address] [facility] [id number] [address] [place] [phone] Apr, [facility] [address] [facility] [id number] [address] [place] [phone] Mar, [facility] [address] [id number] [address] [place] [phone] Mar, [facility] [address] [facility] [id number] [address] [place] [phone] Feb, [facility] [address] [id number] [address] [place] [phone] Feb, [facility] [address] [facility] [id number] [address] [place] [phone] Feb, [facility] [address] [id number] [address] [place] [phone] Feb, [facility] [address] [id number] [address] [place] [address], [place] [address] Jan, [facility] [address] [id number] [address] [place] [address], [place] [address] Jan, [facility] [address] [id number] [address] [place] [address], [place] [address] Jan, [facility] [address] [id number] [address] [place] [address], [place] [address] Jan, [facility] [address] [id number] [address] [place] [address], [place] [address] Nov, [facility] [address] [id number] [address] [place] [address], [place] [address] Nov, [facility] [address] [id number] [address] [place] [address], [place] [address] Nov, [facility] [address] [id number] [address] [place] [address], [place] [address] Nov, [facility] [address] [id number] [address] [place] [address], [place] [address] Nov, [facility] [address] [id number] [address] [place] [address], [place] [address] Nov, [facility] [address] [id number] [address] [place] [address], [place] [address] Nov, [facility] [address] [id number] [address] [place] [phone] Nov, [facility] [address] [id number] [address] [place] [address], [place] [address] Nov, [facility] [address] [id number] [address] [place] [address], [place] [address] Nov, [facility] [address] [id number] [address] [place] [address], [place] [address] Nov, [facility] [address] [id number] [address] [place] [address], [place] [address] 07 Nov, 2013 [facility] [address] [id number] [address] [place] [address], [place] [address] 07 Nov, 2013 [facility] [address] [id number] [address] [place] [address], [place] [address] 30 Oct, 2013 [facility] [address] [id number] [address] [place] [address], [place] [address] 30 Sep, 2013 [facility] [address] [id number] [address] [place] [address], [place] [address] 26 Oct, 2013 [facility] [address] [id number] [address] [place] [address], [place] [address] 26 Oct, 2013 [facility] [address] [id number] [address] [place] [address], [place] [address] 08 Oct, 2013 [facility] [address] [id number] [address] [place] [address], [place] [address] 08 Oct, 2013 [facility] [address] [id number] [address] [place] [address], [place] [address] 04 Sep, 2013 [facility] [address] [id number] [address] [place] [address], [place] [address] 04 Oct, 2013 [facility] [address] [id number] [address] [place] [address], [place] [address] 04 Oct, 2013 [facility] [address] [id number] [address] [place] [address], [place] [address] 04 Oct, 2013 [facility] [address] [id number] [address] [place] [address], [place] [address] 04 Oct, 2013 [facility] [address] [id number] [address] [place] [address], [place] [address] 04 Oct, 2013 [facility] [address] [id number] [address] [place] [address], [place] [address] Sep, [facility] [address] [id number] [address] [place] [address], [place] [address] Sep, [facility] [address] [id number] [facility] [place] [address] Sep, [facility] [address] [id number] [facility] [place] [address] Sep, [facility] [address] [id number] [facility] [place] [address] Sep, [facility] [address] [id number] [address] [place] [address], [place] [address] Sep, [facility] [address] [id number] [address] [place] [address], [place] [address] Sep, [facility] [address] [id number] [address] [place] [address], [place] [address] Sep, [facility] [address] [id number] [address] [place] [address], [place] [address] Aug, [facility] [address] [id number] [address] [place] [address], [place] [address] Aug, [facility] [address] [id number] [address] [place] [address], [place] [address] Aug, [facility] [address] [id number] [address] [place] [address], [place] [address] Aug, [facility] [address] [id number] [address] [place] [address], [place] [address] Jul, [facility] [address] [id number] [address] [place] [address], [place] [address] Jul, [facility] [address] [id number] [address] [place] [address], [place] [address] Jul, [facility] [address] [id number] [address] [place] [address], [place] [address] Jul, [facility] [address] [id number] [address] [place] [address], [place] [address] Jul, [facility] [address] [id number] [address] [place] [address], [place] [address] Jul, [facility] [address] [id number] [address] [place] [address], [place] [address] June, [facility] [address] [id number] [address] [place] [address], [place] [address] June, [facility] [address] [id number] [address] [place] [address], [place] [address] June, [facility] [address] [id number] [address] [place] [address], [place] [address] June, [facility] [address] [id number] [address] [place] [address], [place] [address] June, [facility] [address] [id number] [address] [place] [address], [place] [address] June, [facility] [address] [id number] [address] [place] [address], [place] [address] May, [facility] [address] [id number] [address] [place] [address], [place] [address] May, [facility] [address] [id number] [address] [place] [address], [place] [address] May, [facility] [address] [id number] [address] [place] [address], [place] [address] May, [facility] [address] [id number] [address] [place] [address], [place] [address] May, [facility] [address] [id number] [address] [place] [address], [place] [address] May, [facility] [address] [id number] [address] [place] [address], [place] [address] May, [facility] [address] [id number] [address] [place] [address], [place] [address] May, [facility] [address] [id number] [address] [place] [address], [place] [address] May, [facility] [address] [id number] [facility] [place] [address] May, [facility] [address] [id number] [facility] [place] [address] Apr, [facility] [address] [id number] [facility] [place] [address] Apr, [facility] [address] [id number] [facility] [place] [address] Apr, [facility] [address] [id number] [facility] [place] [address] Apr, [facility] [address] [id number] [address] [place] [address], [place] [address] Apr, [facility] [address] [id number] [address] [place] [address], [place] [address] Apr, [facility] [address] [id number] [address] [place] [address], [place] [address] Apr, [facility] [address] [id number] [address] [place] [address], [place] [address] Apr, [facility] [address] [id number] [address] [place] [address], [place] [address] Apr, [facility] [address] [id number] [address] [place] [address], [place] [address] Apr, [facility] [address] [id number] [address] [place] [address], [place] [address] Apr, [facility] [address] [id number] [address] [place] [address], [place] [address] Apr, [facility] [address] [id number] [address] [place] [address], [place] [address] Mar, [facility] [address] [id number] [address] [place] [address], [place] [address] Mar, [facility] [address] [id number] [address] [place] [address], [place] [address] Mar, [facility] [address] [id number] [address] [place] [address], [place] [address] Mar, [facility] [address] [id number] [address] [place] [address], [place] [address] Feb, [facility] [address] [id number] [address] [place] [address], [place] [address] Feb, [facility] [address] [id number] [address] [place] [address], [place] [address] Feb, [facility] [address] [id number] [address] [place] [address], [place] [address] Feb, [facility] [address] [id number] [address] [place] [address], [place] [address] Feb, [facility] [address] [id number] [address] [place] [address], [place] [address] Feb, [facility] [address] [id number] [address] [place] [address], [place] [address] Feb, [facility] [address] [id number] [address] [place] [address], [place] [address] Feb, [facility] [address] [id number] [address] [place] [address], [place] [address] Feb, [facility] [address] [id number] [address] [place] [address], [place] [address] Feb, [facility] [address] [id number] [address] [place] [address], [place] [address] Jan, [facility] [address] [id number] [address] [place] [address], [place] [address] Jan, [facility] [address] [id number] [address] [place] [address], [place] [address] Jan, [facility] [address] [id number] [address] [place] [address], [place] [address] Jan, [facility] [address] [id number] [address] [place] [address], [place] [address] Jan, [facility] [address] [id number] [address] [place] [address], [place] [address] Jan, [facility] [address] [id number] [address] [place] [address], [place] [address] Jan, [facility] [address] [id number] [address] [place] [address], [place] [address] Jan, [facility] [address] [id number] [address] [place] [address], [place] [address] Jan, [facility] [address] [id number] [address] [place] [address], [place] [address] Dec, [facility] [address] [id number] [address] [place] [address], [place] [address] Dec, [facility] [address] [id number] [address] [place] [address], [place] [address] Dec, [facility] [address] [id number] [address] [place] [address], [place] [address] Dec, [facility] [address] [id number] [address] [place] [address], [place] [address] Nov, [facility] [address] [id number] [address] [place] [address], [place] [address] Nov, [facility] [address] [id number] [address] [place] [address], [place] [address] Nov, [facility] [address] [id number] [address] [place] [address], [place] [address] Nov, [facility] [address] [id number] [address] [place] [address], [place] [address] Nov, [facility] [address] [id number] [address] [place] [address], [place] [address] Nov, [facility] [address] [id number] [address] [place] [address], [place] [address] Oct, [facility] [address] [id number] [address] [place] [address], [place] [address] Oct, [facility] [address] [id number] [address] [place] [address], [place] [address] Sep, [facility] [address] [id number] [address] [place] [address], [place] [address] Sep, [facility] [address] [id number] [address] [place] [address], [place] [address] Sep, [facility] [address] [id number] [address] [place] [address], [place] [address] Sep, [facility] [address] [id number] [address] [place] [address], [place] [address] Aug, [facility] [address] [id number] [address] [place] [address], [place] [address] Aug, [facility] [address] [id number] [address] [place] [address], [place] [address] Aug, [facility] [address] [id number] [address] [place] [address], [place] [address] Jul, [facility] [address] [id number] [address] [place] [address], [place] [address] Jul, [facility] [address] [id number] [address] [place] [address], [place] [address] Jul, [facility] [address] [id number] [address] [place] [address], [place] [address] Jul, [facility] [address] [id number] [address] [place] [address], [place] [address] June, [facility] [address] [id number] [address] [place] [address], [place] [address] June, [facility] [address] [id number] [address] [place] [address], [place] [address] May, [facility] [address] [id number] [address] [place] [address], [place] [address] 03 May, 2012 [facility] [address] [id number] [address] [place] [address], [place] [address] 29 Apr, 2012 [facility] [address] [id number] [address] [place] [address], [place] [address] 19 Apr, 2012 [facility] [address] [id number] [address] [place] [address], [place] [address] 18 Mar, 2012 [facility] [address] [id number] [address] [place] [address], [place] [address] Mar, [facility] [address] [id number] [address] [place] [address], [place] [address] 31 Feb, 2012 [facility] [address] [id number] [address] [place] [address], [place] [address] 24 Feb, 2012 [facility] [address] [id number] [address] [place] [address], [place] [address] 18 Feb, 2012 [facility] [address] [id number] [address] [place] [address], [place] [address] 17 Feb, 2012 [facility] [address] [id number] [address] [place] [address], [place] [address] 17 Feb, 2012 [facility] [address] [id number] [address] [place] [address], [place] [address] 16 Feb, 2012 [facility] [address] [id number] [address] [place] [address], [place] [address] 16 Feb, 2012 [facility] [address] [id number] [address] [place] [address], [place] [id number] 14 Feb, 2012 [facility] [address] [id number] [address] [place] [address], [place] [id number] 11 Feb, 2012 [facility] [address] [id number] [address] [place] [address], [place] [id number] Jan, [facility] [address] [id number] [address] [place] [address], [place] [id number] Jan, [facility] [address] [id number] [address] [place] [address], [place] [id number] Jan, [facility] [address] [id number] [address] [place] [address], [place] [id number] Jan, [facility] [address] [id number] [address] [place] [address], [place] [id number] Dec, [facility] [address] [id number] [address] [place] [address], [place] [id number] Dec, [facility] [address] [id number] [address] [place] [address], [place] [id number] Dec, [facility] [address] [id number] [address] [place] [address], [place] [id number] Dec, [facility] [address] [id number] [address] [place] [address], [place] [id number] Oct, [facility] [address] [id number] [address] [place] [address], [place] [id number] Sep, [facility] [address] [id number] [address] [place] [address], [place] [id number] Sep, [facility] [address] [id number] [address] [place] [address], [place] [id number] Aug, [facility] [address] [id number] [address] [place] [address], [place] [id number] Jul, [facility] [address] [id number] [address] [place] [address], [place] [id number] June, [facility] [address] [id number] [address] [place] [address], [place] [id number] June, [facility] [address] [id number] [address] [place] [address], [place] [id number] May, [facility] [address] [id number] [address] [place] [address], [place] [id number] Apr, [facility] [address] [id number] [address] [place] [id number] Mar, [facility] [address] [facility] [id number] [address] [place] [id number] Mar, [facility] [address] [facility] [id number] [address] [place] [id number] Feb, [facility] [address] [facility] [id number] [address] [place] [id number] Dec, [facility] [address] [facility] [id number] [address] [place] [id number] Nov, [facility] [address] [facility] [id number] [address] [place] [id number] Sep, [facility] [address] [facility] [id number] [address] [place] [id number] Aug, IMMUNIZATIONS No Known Immunizations SOCIAL HISTORY Never Assessed REASON FOR VISIT PLAN OF CARE VITAL SIGNS MEDICATIONS Unknown Medications RESULTS No Results PROCEDURES Procedure Date Ordered Result Body Site DRUG SCREEN, QUALITATE/MULTI Jan 18, 2013 INSTRUCTIONS MEDICATIONS ADMINISTERED No Known Medications MEDICAL (GENERAL) HISTORY Type Description Date Medical History asthma Medical History headache Medical History chronic pain-low back with spasms Medical History anxiety Medical History depression Hospitalization History childbirth x 4
--- OUTSIDE RECORDS SUMMARY | 2019-07-02 15:40 | XMS REPORT ---
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 Phone HUMA LOZOYA Unavailable PROBLEMS Type Condition ICD9-CM Code AOG68-DN Code Onset Dates Condition S tatus SNOMED Code Problem Asthma J45.909 Active 851904200 Problem Alcoholism F10.20 Active 8980268 Problem Arthritis M19.90 Active 0093339 Problem Other chronic pain G89.29 Active 8 4882873 Problem Bipolar disorder F31.9 Active 137 63193 Problem Closed fracture of shaft of right fibula, unspecified fracture morphology, initial encounter S82.401A Active 92663095 Problem Major depressive disorder, single episode F32.9 Active 74311518 Problem Arthropathy, unspecified M12.9 Activ e [id number] ALLERGIES No Information ENCOUNTERS Encounter Location Date Diagnosis [place] [id number] [facility] [id number] [address] [place] [address] May, [facility] [address] [id number] [place] [address] [id number] Apr, [facility] [address] [place] [id number] [place] [address] [phone] Apr, Cough R05 and Hyperinflation of lungs R09.89 [facility] [address] [facility] [id number] [address] [place] [address] Dec, Arthritis M19.90 ; Alcoholis m F10.20 ; Encounter for immunization Z23 and Breast cancer screening by mammogram Z12.31 [facility] [address] [facility] [id number] [address] [place] [address] Sep, [place] [address] [facility] [id number] [address] [place] [address] Sep, Arthropathy of right ankle M 19.071 [facility] [address] [id number] [address] [place] [address] Aug, Pain in right ankle and join ts of right foot M25.571 and Other chronic pain G89.29 [facility] [address] [id number] [address] [place] [address] Jul, [facility] [address] [facility] [id number] [address] [place] [address] Apr, [facility] [address] [id number] [address] [place] [address] Apr, Injury of right ankle, initi al encounter S99.911A and Encounter for immunization Z23 [facility] [address] [facility] [id number] [address] [place] [address] Dec, [place] [address] [facility] [id number] [address] [place] [address] Nov, Pain in right ankle and join ts of right foot M25.571 ; Other chronic pain G89.29 and Post-traumatic arthritis of right ankle M19.171 [place] [address] [facility] [id number] [address] [place] [address] Oct, Arthritis M19.90 [place] [address] [facility] [id number] [address] [place] [address] Aug, Arthritis M19.90 [place] [address] [facility] [id number] [address] [place] [address] Aug, [place] [address] [id number] [address] [place] [address] Jul, [place] [address] [facility] [id number] [address] [place] [address] June, Arthropathy, unspecified M12 .9 [facility] [address] [facility] [id number] [address] [place] [address] May, Asthma J45.909 and Major dep ressive disorder, single episode F32.9 [facility] [address] [id number] [address] [place] [address] Mar, Closed fracture of shaft of right fibula, unspecified fracture morphology, initial encounter S82.401A [facility] [address] [id number] [address] [place] [address] Feb, [facility] [address] [facility] [id number] [address] [place] [address] Feb, [facility] [address] [id number] [address] [place] [address] Nov, [facility] [address] [facility] [id number] [address] [place] [address] Nov, Bipolar disorder F31.9 ; Enc ounter for immunization Z23 and Asthma J45.909 [facility] [address] [facility] [id number] [address] [place] [address] Aug, [facility] [address] [facility] [id number] [address] [place] [address] May, [facility] [address] [facility] [id number] [address] [place] [address] Apr, [facility] [address] [facility] [id number] [address] [place] [address] Apr, [facility] [address] [facility] [id number] [address] [place] [address] Apr, URI (upper respiratory infec tion) J06.9 and Bipolar disorder F31.9 [facility] [address] [facility] [id number] [address] [place] [address] Feb, [facility] [address] [facility] [id number] [address] [place] [address] Feb, Asthma J45.909 and Alcoholis m F10.20 [facility] [address] [facility] [id number] [address] [place] [address] Jan, [facility] [address] [facility] [id number] [address] [place] [address] Jan, [facility] [address] [facility] [id number] [address] [place] [address] Jan, [facility] [address] [facility] [id number] [address] [place] [address] Nov, Alcoholism F10.20 and Anxiet y F41.9 [facility] [address] [id number] [address] [place] [address] Jul, Anxiety 300.00 and Arthropat hy 716.90 [facility] [address] [facility] [id number] [address] [place] [address] Jul, [facility] [address] [facility] [id number] [address] [place] [address] Jul, Anxiety state 300.00 [facility] [address] [id number] [address] [place] [address] May, [facility] [address] [facility] [id number] [address] [place] [address] May, [facility] [address] [facility] [id number] [address] [place] [address] Apr, [facility] [address] [facility] [id number] [address] [place] [address] Apr, [facility] [address] [facility] [id number] [address] [place] [address] Mar, [facility] [address] [facility] [id number] [address] [place] [address] Mar, [facility] [address] [facility] [id number] [address] [place] [address] Feb, [facility] [address] [facility] [id number] [address] [place] [address] Feb, [facility] [address] [facility] [id number] [address] [place] [address] Feb, [facility] [address] [id number] [address] [place] [address], [place] [address] Feb, [facility] [address] [id number] [address] [place] [address], [place] [address] Jan, [facility] [address] [id number] [address] [place] [address], [place] [address] Jan, [facility] [address] [id number] [address] [place] [address], [place] [address] Jan, [facility] [address] [id number] [address] [place] [address], [place] [address] Jan, [facility] [address] [id number] [address] [place] [address], [place] [address] Nov, [facility] [address] [id number] [address] [place] [address], [place] [address] Nov, [facility] [address] [id number] [address] [place] [address], [place] [address] Nov, [facility] [address] [id number] [address] [place] [address], [place] [address] Nov, [facility] [address] [id number] [address] [place] [address], [place] [address] Nov, [facility] [address] [id number] [address] [place] [address], [place] [address] Nov, [facility] [address] [id number] [address] [place] [address], [place] [address] Nov, [facility] [address] [id number] [address] [place] [address], [place] [address] Nov, [facility] [address] [id number] [address] [place] [address], [place] [address] Nov, [facility] [address] [id number] [address] [place] [address], [place] [address] Nov, [facility] [address] [id number] [address] [place] [address], [place] [address] 13 Nov, 2013 [facility] [address] [id number] [address] [place] [address], [place] [address] 07 Nov, 2013 [facility] [address] [id number] [address] [place] [address], [place] [address] 07 Nov, 2013 [facility] [address] [id number] [address] [place] [address], [place] [address] 30 Sep, 2013 [facility] [address] [id number] [address] [place] [address], [place] [address] 30 Sep, 2013 [facility] [address] [id number] [address] [place] [address], [place] [address] 26 Sep, 2013 [facility] [address] [id number] [address] [place] [address], [place] [address] 26 Sep, 2013 [facility] [address] [id number] [address] [place] [address], [place] [address] 08 Sep, 2013 [facility] [address] [id number] [address] [place] [address], [place] [address] 08 Sep, 2013 [facility] [address] [id number] [address] [place] [address], [place] [address] 04 Sep, 2013 [facility] [address] [id number] [address] [place] [address], [place] [address] 04 Sep, 2013 [facility] [address] [id number] [address] [place] [address], [place] [address] 04 Sep, 2013 [facility] [address] [id number] [address] [place] [address], [place] [address] 04 Sep, 2013 [facility] [address] [id number] [address] [place] [address], [place] [address] 04 Sep, 2013 [facility] [address] [id number] [address] [place] [address], [place] [address] 04 Oct, 2013 [facility] [address] [id number] [address] [place] [address], [place] [address] Sep, [facility] [address] [id number] [facility] [place] [address] Sep, [facility] [address] [id number] [facility] [place] [address] Sep, [facility] [address] [id number] [facility] [place] [address] Sep, [facility] [address] [id number] [address] [place] [address], [place] [address] Sep, [facility] [address] [id number] [address] [place] [address], [place] [address] Sep, [facility] [address] [id number] [address] [place] [address], [place] [address] Sep, [facility] [address] [id number] [address] [place] [address], [place] [address] Sep, [facility] [address] [id number] [address] [place] [address], [place] [address] Aug, [facility] [address] [id number] [address] [place] [address], [place] [address] Aug, [facility] [address] [id number] [address] [place] [address], [place] [address] Aug, [facility] [address] [id number] [address] [place] [address], [place] [address] Aug, [facility] [address] [id number] [address] [place] [address], [place] [address] Jul, [facility] [address] [id number] [address] [place] [address], [place] [address] Jul, [facility] [address] [id number] [address] [place] [address], [place] [address] Jul, [facility] [address] [id number] [address] [place] [address], [place] [address] Jul, [facility] [address] [id number] [address] [place] [address], [place] [address] Jul, [facility] [address] [id number] [address] [place] [address], [place] [address] Jul, [facility] [address] [id number] [address] [place] [address], [place] [address] June, [facility] [address] [id number] [address] [place] [address], [place] [address] June, [facility] [address] [id number] [address] [place] [address], [place] [address] June, [facility] [address] [id number] [address] [place] [address], [place] [address] June, [facility] [address] [id number] [address] [place] [address], [place] [address] June, [facility] [address] [id number] [address] [place] [address], [place] [address] June, [facility] [address] [id number] [address] [place] [address], [place] [address] May, [facility] [address] [id number] [address] [place] [address], [place] [address] May, [facility] [address] [id number] [address] [place] [address], [place] [address] May, [facility] [address] [id number] [address] [place] [address], [place] [address] May, [facility] [address] [id number] [address] [place] [address], [place] [address] May, [facility] [address] [id number] [address] [place] [address], [place] [address] May, [facility] [address] [id number] [address] [place] [address], [place] [address] May, [facility] [address] [id number] [address] [place] [address], [place] [address] May, [facility] [address] [id number] [facility] [place] [address] May, [facility] [address] [id number] [facility] [place] [address] May, [facility] [address] [id number] [facility] [place] [address] Apr, [facility] [address] [id number] [facility] [place] [address] Apr, [facility] [address] [id number] [facility] [place] [address] 10 Apr, 2013 [facility] [address] [id number] [address] [place] [address], [place] [address] 10 Apr, 2013 [facility] [address] [id number] [address] [place] [address], [place] [address] Apr, [facility] [address] [id number] [address] [place] [address], [place] [address] Apr, [facility] [address] [id number] [address] [place] [address], [place] [address] Apr, [facility] [address] [id number] [address] [place] [address], [place] [address] Apr, [facility] [address] [id number] [address] [place] [address], [place] [address] Apr, [facility] [address] [id number] [address] [place] [address], [place] [address] Apr, [facility] [address] [id number] [address] [place] [address], [place] [address] Apr, [facility] [address] [id number] [address] [place] [address], [place] [address] Apr, [facility] [address] [id number] [address] [place] [address], [place] [address] Mar, [facility] [address] [id number] [address] [place] [address], [place] [address] Mar, [facility] [address] [id number] [address] [place] [address], [place] [address] Mar, [facility] [address] [id number] [address] [place] [address], [place] [address] Mar, [facility] [address] [id number] [address] [place] [address], [place] [address] Feb, [facility] [address] [id number] [address] [place] [address], [place] [address] Feb, [facility] [address] [id number] [address] [place] [address], [place] [address] Feb, [facility] [address] [id number] [address] [place] [address], [place] [address] Feb, [facility] [address] [id number] [address] [place] [address], [place] [address] Feb, [facility] [address] [id number] [address] [place] [address], [place] [address] Feb, [facility] [address] [id number] [address] [place] [address], [place] [address] Feb, [facility] [address] [id number] [address] [place] [address], [place] [address] Feb, [facility] [address] [id number] [address] [place] [address], [place] [address] Feb, [facility] [address] [id number] [address] [place] [address], [place] [address] Feb, [facility] [address] [id number] [address] [place] [address], [place] [address] Jan, [facility] [address] [id number] [address] [place] [address], [place] [address] Jan, [facility] [address] [id number] [address] [place] [address], [place] [address] Jan, [facility] [address] [id number] [address] [place] [address], [place] [address] Jan, [facility] [address] [id number] [address] [place] [address], [place] [address] Jan, [facility] [address] [id number] [address] [place] [address], [place] [address] Jan, [facility] [address] [id number] [address] [place] [address], [place] [address] Jan, [facility] [address] [id number] [address] [place] [address], [place] [address] Jan, [facility] [address] [id number] [address] [place] [address], [place] [address] Jan, [facility] [address] [id number] [address] [place] [address], [place] [address] Dec, [facility] [address] [id number] [address] [place] [address], [place] [address] Dec, [facility] [address] [id number] [address] [place] [address], [place] [address] Dec, [facility] [address] [id number] [address] [place] [address], [place] [address] Dec, [facility] [address] [id number] [address] [place] [address], [place] [address] Nov, [facility] [address] [id number] [address] [place] [address], [place] [address] Nov, [facility] [address] [id number] [address] [place] [address], [place] [address] Nov, [facility] [address] [id number] [address] [place] [address], [place] [address] Nov, [facility] [address] [id number] [address] [place] [address], [place] [address] Nov, [facility] [address] [id number] [address] [place] [address], [place] [address] Nov, [facility] [address] [id number] [address] [place] [address], [place] [address] Oct, [facility] [address] [id number] [address] [place] [address], [place] [address] Oct, [facility] [address] [id number] [address] [place] [address], [place] [id number] Sep, [facility] [address] [id number] [address] [place] [address], [place] [id number] Sep, [facility] [address] [id number] [address] [place] [address], [place] [id number] Sep, [facility] [address] [id number] [address] [place] [address], [place] [id number] Sep, [facility] [address] [id number] [address] [place] [address], [place] [id number] Aug, [facility] [address] [id number] [address] [place] [address], [place] [id number] Aug, [facility] [address] [id number] [address] [place] [address], [place] [id number] Aug, [facility] [address] [id number] [address] [place] [address], [place] [id number] Jul, [facility] [address] [id number] [address] [place] [address], [place] [address] Jul, [facility] [address] [id number] [address] [place] [address], [place] [id number] Jul, [facility] [address] [id number] [address] [place] [address], [place] [address] Jul, [facility] [address] [id number] [address] [place] [address], [place] [address] June, [facility] [address] [id number] [address] [place] [address], [place] [address] June, [facility] [address] [id number] [address] [place] [address], [place] [id number] 30 May, 2012 [facility] [address] [id number] [address] [place] [address], [place] [id number] 03 May, 2012 [facility] [address] [id number] [address] [place] [address], [place] [id number] 29 Apr, 2012 [facility] [address] [id number] [address] [place] [address], [place] [id number] Apr, [facility] [address] [id number] [address] [place] [address], [place] [id number] 18 Mar, 2012 [facility] [address] [id number] [address] [place] [address], [place] [address] Mar, [facility] [address] [id number] [address] [place] [address], [place] [id number] 31 Feb, 2012 [facility] [address] [id number] [address] [place] [address], [place] [id number] 24 Feb, 2012 [facility] [address] [id number] [address] [place] [address], [place] [id number] 18 Feb, 2012 [facility] [address] [id number] [address] [place] [address], [place] [id number] 17 Feb, 2012 [facility] [address] [id number] [address] [place] [address], [place] [id number] 17 Feb, 2012 [facility] [address] [id number] [address] [place] [address], [place] [id number] 16 Feb, 2012 [facility] [address] [id number] [address] [place] [address], [place] [id number] 16 Feb, 2012 [facility] [address] [id number] [address] [place] [address], [place] [id number] 14 Feb, 2012 [facility] [address] [id number] [address] [place] [address], [place] [id number] 11 Feb, 2012 [facility] [address] [id number] [address] [place] [address], [place] [id number] Jan, [facility] [address] [id number] [address] [place] [address], [place] [id number] Jan, [facility] [address] [id number] [address] [place] [address], [place] [id number] Jan, [facility] [address] [id number] [address] [place] [address], [place] [address] Jan, [facility] [address] [id number] [address] [place] [address], [place] [id number] Dec, [facility] [address] [id number] [address] [place] [address], [place] [id number] Dec, [facility] [address] [id number] [address] [place] [address], [place] [address] Dec, [facility] [address] [id number] [address] [place] [address], [place] [id number] Dec, [facility] [address] [id number] [address] [place] [address], [place] [id number] Oct, [facility] [address] [id number] [address] [place] [address], [place] [address] Sep, [facility] [address] [id number] [address] [place] [address], [place] [id number] Sep, [facility] [address] [id number] [address] [place] [address], [place] [id number] Aug, [facility] [address] [id number] [address] [place] [address], [place] [id number] Jul, [facility] [address] [id number] [address] [place] [address], [place] [id number] June, [facility] [address] [id number] [address] [place] [address], [place] [id number] June, [facility] [address] [id number] [address] [place] [address], [place] [id number] May, [facility] [address] [id number] [address] [place] [id number] Apr, [facility] [address] [id number] [address] [place] [id number] Mar, [facility] [address] [facility] [id number] [address] [place] [id number] Mar, [facility] [address] [facility] [id number] [address] [place] [id number] Feb, [facility] [address] [facility] [id number] [address] [place] [id number] Dec, [facility] [address] [facility] [id number] [address] [place] [id number] Nov, [facility] [address] [facility] [id number] [address] [place] [id number] Sep, [facility] [address] [facility] [id number] [address] [place] [phone] Aug, IMMUNIZATIONS No Known Immunizations SOCIAL HISTORY [...]
--- OUTSIDE RECORDS SUMMARY | 2019-07-02 15:40 | XMS REPORT ---
Author Author Madina LOZOYA Organization [facility] Address [address] [place] [address] Care Team Providers Care Insurance Verification Rep Name Role Phone HUMA LOZOYA Unavailable PROBLEMS Type Condition ICD9-CM Code [id number] Code Onset Dates Condition S tatus SNOMED Code Problem Asthma J45.909 Active 784159471 Problem Alcoholism F10.20 Active 6793574 Problem Arthritis M19.90 Active 6035028 Problem Other chronic pain G89.29 Active 8 1611747 Problem Bipolar disorder F31.9 Active 137 85692 Problem Closed fracture of shaft of right fibula, unspecified fracture morphology, initial encounter S82.401A Active 41090413 Problem Major depressive disorder, single episode F32.9 Active 86339013 Problem Arthropathy, unspecified M12.9 Activ e [id number] ALLERGIES No Information ENCOUNTERS Encounter Location Date Diagnosis [place] [id number] [facility] [id number] [address] [place] [address] May, [facility] [address] [place] [id number] [place] [address] [id number] Apr, [facility] [address] [id number] [place] [address] [phone] Apr, Cough R05 and Hyperinflation of lungs R09.89 [facility] [address] [facility] [id number] [address] [place] [address] Dec, Arthritis M19.90 ; Alcoholis m F10.20 ; Encounter for immunization Z23 and Breast cancer screening by mammogram Z12.31 [facility] [address] [facility] [id number] [address] [place] [address] Sep, [place] [address] [facility] [id number] [address] [place] [address] Sep, Arthropathy of right ankle M 19.071 [facility] [address] [id number] [address] [place] [address] Aug, Pain in right ankle and join ts of right foot M25.571 and Other chronic pain G89.29 [facility] [address] [id number] [address] [place] [address] Jul, [facility] [address] [facility] [id number] [address] [place] [address] Apr, [facility] [address] [id number] [address] [place] [address] Apr, Injury of right ankle, initi al encounter S99.911A and Encounter for immunization Z23 [facility] [address] [facility] [id number] [address] [place] [address] Dec, [place] [address] [address] [facility] [id number] [address] [place] [address] Nov, Pain in right ankle and join ts of right foot M25.571 ; Other chronic pain G89.29 and Post-traumatic arthritis of right ankle M19.171 [place] [address] [address] [facility] [id number] [address] [place] [address] Oct, Arthritis M19.90 [place] [address] [facility] [id number] [address] [place] [address] Aug, Arthritis M19.90 [place] [address] [facility] [id number] [address] [place] [address] Aug, [place] [address] [id number] [address] [place] [address] Jul, [place] [address] [address] [facility] [id number] [address] [place] [address] June, Arthropathy, unspecified M12 .9 [facility] [address] [facility] [id number] [address] [place] [address] May, Asthma J45.909 and Major dep ressive disorder, single episode F32.9 [facility] [address] [id number] [address] [place] [address] Mar, Closed fracture of shaft of right fibula, unspecified fracture morphology, initial encounter S82.401A [facility] [address] [id number] [address] [place] [address] Feb, [facility] [address] [facility] [id number] [address] [place] [address] Feb, [facility] [address] [id number] [address] [place] [address] Nov, [facility] [address] [facility] [id number] [address] [place] [address] Nov, Bipolar disorder F31.9 ; Enc ounter for immunization Z23 and Asthma J45.909 [facility] [address] [facility] [id number] [address] [place] [address] Aug, [facility] [address] [facility] [id number] [address] [place] [address] May, [facility] [address] [facility] [id number] [address] [place] [address] Apr, [facility] [address] [facility] [id number] [address] [place] [address] Apr, [facility] [address] [facility] [id number] [address] [place] [address] Apr, URI (upper respiratory infec tion) J06.9 and Bipolar disorder F31.9 [facility] [address] [facility] [id number] [address] [place] [address] Feb, [facility] [address] [facility] [id number] [address] [place] [address] Feb, Asthma J45.909 and Alcoholis m F10.20 [facility] [address] [facility] [id number] [address] [place] [address] Jan, [facility] [address] [facility] [id number] [address] [place] [address] Jan, [facility] [address] [facility] [id number] [address] [place] [address] Jan, [facility] [address] [facility] [id number] [address] [place] [address] Nov, Alcoholism F10.20 and Anxiet y F41.9 [facility] [address] [id number] [address] [place] [address] Jul, Anxiety 300.00 and Arthropat hy 716.90 [facility] [address] [facility] [id number] [address] [place] [address] Jul, [facility] [address] [facility] [id number] [address] [place] [address] Jul, Anxiety state 300.00 [facility] [address] [id number] [address] [place] [address] May, [facility] [address] [facility] [id number] [address] [place] [address] May, [facility] [address] [facility] [id number] [address] [place] [address] Apr, [facility] [address] [facility] [id number] [address] [place] [phone] Apr, [facility] [address] [facility] [id number] [address] [place] [phone] Mar, [facility] [address] [facility] [id number] [address] [place] [address] Mar, [facility] [address] [facility] [id number] [address] [place] [address] Feb, [facility] [address] [facility] [id number] [address] [place] [address] Feb, [facility] [address] [facility] [id number] [address] [place] [id number] Feb, [facility] [address] [id number] [address] [place] [address], [place] [address] Feb, [facility] [address] [id number] [address] [place] [address], [place] [address] Jan, [facility] [address] [id number] [address] [place] [address], [place] [address] Jan, [facility] [address] [id number] [address] [place] [address], [place] [address] Jan, [facility] [address] [id number] [address] [place] [address], [place] [address] Jan, [facility] [address] [id number] [address] [place] [address], [place] [address] Nov, [facility] [address] [id number] [address] [place] [address], [place] [address] Nov, [facility] [address] [id number] [address] [place] [address], [place] [address] Nov, [facility] [address] [id number] [address] [place] [address], [place] [address] Nov, [facility] [address] [id number] [address] [place] [address], [place] [address] Nov, [facility] [address] [id number] [address] [place] [address], [place] [address] Nov, [facility] [address] [id number] [address] [place] [address], [place] [address] Nov, [facility] [address] [id number] [address] [place] [address], [place] [address] Nov, [facility] [address] [id number] [address] [place] [address], [place] [address] Nov, [facility] [address] [id number] [address] [place] [address], [place] [address] Nov, [facility] [address] [id number] [address] [place] [address], [place] [address] 13 Nov, 2013 [facility] [address] [id number] [address] [place] [address], [place] [address] 07 Nov, 2013 [facility] [address] [id number] [address] [place] [address], [place] [address] 07 Nov, 2013 [facility] [address] [id number] [address] [place] [address], [place] [address] 30 Sep, 2013 [facility] [address] [id number] [address] [place] [address], [place] [address] 30 Sep, 2013 [facility] [address] [id number] [address] [place] [address], [place] [address] 26 Sep, 2013 [facility] [address] [id number] [address] [place] [address], [place] [address] 26 Sep, 2013 [facility] [address] [id number] [address] [place] [address], [place] [address] 08 Sep, 2013 [facility] [address] [id number] [address] [place] [address], [place] [address] 08 Sep, 2013 [facility] [address] [id number] [address] [place] [address], [place] [address] 04 Sep, 2013 [facility] [address] [id number] [address] [place] [address], [place] [address] 04 Sep, 2013 [facility] [address] [id number] [address] [place] [address], [place] [address] 04 Sep, 2013 [facility] [address] [id number] [address] [place] [address], [place] [address] 04 Sep, 2013 [facility] [address] [id number] [address] [place] [address], [place] [address] 04 Sep, 2013 [facility] [address] [id number] [address] [place] [address], [place] [address] 04 Oct, 2013 [facility] [address] [id number] [address] [place] [address], [place] [address] Sep, [facility] [address] [id number] [facility] [place] [address] Sep, [facility] [address] [id number] [facility] [place] [address] Sep, [facility] [address] [id number] [facility] [place] [address] Sep, [facility] [address] [id number] [address] [place] [address], [place] [address] Sep, [facility] [address] [id number] [address] [place] [address], [place] [address] Sep, [facility] [address] [id number] [address] [place] [address], [place] [address] Sep, [facility] [address] [id number] [address] [place] [address], [place] [address] Sep, [facility] [address] [id number] [address] [place] [address], [place] [address] Aug, [facility] [address] [id number] [address] [place] [address], [place] [address] Aug, [facility] [address] [id number] [address] [place] [address], [place] [address] Aug, [facility] [address] [id number] [address] [place] [address], [place] [address] Aug, [facility] [address] [id number] [address] [place] [address], [place] [address] Jul, [facility] [address] [id number] [address] [place] [address], [place] [address] Jul, [facility] [address] [id number] [address] [place] [address], [place] [address] Jul, [facility] [address] [id number] [address] [place] [address], [place] [address] Jul, [facility] [address] [id number] [address] [place] [address], [place] [address] Jul, [facility] [address] [id number] [address] [place] [address], [place] [address] Jul, [facility] [address] [id number] [address] [place] [address], [place] [address] June, [facility] [address] [id number] [address] [place] [address], [place] [address] June, [facility] [address] [id number] [address] [place] [address], [place] [address] June, [facility] [address] [id number] [address] [place] [address], [place] [address] June, [facility] [address] [id number] [address] [place] [address], [place] [address] June, [facility] [address] [id number] [address] [place] [address], [place] [address] June, [facility] [address] [id number] [address] [place] [address], [place] [address] May, [facility] [address] [id number] [address] [place] [address], [place] [address] May, [facility] [address] [id number] [address] [place] [address], [place] [address] May, [facility] [address] [id number] [address] [place] [address], [place] [address] May, [facility] [address] [id number] [address] [place] [address], [place] [address] May, [facility] [address] [id number] [address] [place] [address], [place] [address] May, [facility] [address] [id number] [address] [place] [address], [place] [address] May, [facility] [address] [id number] [address] [place] [address], [place] [address] May, [facility] [address] [id number] [facility] [place] [address] May, [facility] [address] [id number] [facility] [place] [address] May, [facility] [address] [id number] [facility] [place] [address] Apr, [facility] [address] [id number] [facility] [place] [address] Apr, [facility] [address] [id number] [facility] [place] [address] 10 Apr, 2013 [facility] [address] [id number] [address] [place] [address], [place] [address] 10 Apr, 2013 [facility] [address] [id number] [address] [place] [address], [place] [address] Apr, [facility] [address] [id number] [address] [place] [address], [place] [address] Apr, [facility] [address] [id number] [address] [place] [address], [place] [address] Apr, [facility] [address] [id number] [address] [place] [address], [place] [address] Apr, [facility] [address] [id number] [address] [place] [address], [place] [address] Apr, [facility] [address] [id number] [address] [place] [address], [place] [address] Apr, [facility] [address] [id number] [address] [place] [address], [place] [address] Apr, [facility] [address] [id number] [address] [place] [address], [place] [address] Apr, [facility] [address] [id number] [address] [place] [address], [place] [address] Mar, [facility] [address] [id number] [address] [place] [address], [place] [address] Mar, [facility] [address] [id number] [address] [place] [address], [place] [address] Mar, [facility] [address] [id number] [address] [place] [address], [place] [address] Mar, [facility] [address] [id number] [address] [place] [address], [place] [address] Feb, [facility] [address] [id number] [address] [place] [address], [place] [address] Feb, [facility] [address] [id number] [address] [place] [address], [place] [address] Feb, [facility] [address] [id number] [address] [place] [address], [place] [address] Feb, [facility] [address] [id number] [address] [place] [address], [place] [address] Feb, [facility] [address] [id number] [address] [place] [address], [place] [address] Feb, [facility] [address] [id number] [address] [place] [address], [place] [address] Feb, [facility] [address] [id number] [address] [place] [address], [place] [address] Feb, [facility] [address] [id number] [address] [place] [address], [place] [address] Feb, [facility] [address] [id number] [address] [place] [address], [place] [address] Feb, [facility] [address] [id number] [address] [place] [address], [place] [address] Jan, [facility] [address] [id number] [address] [place] [address], [place] [address] Jan, [facility] [address] [id number] [address] [place] [address], [place] [address] Jan, [facility] [address] [id number] [address] [place] [address], [place] [address] Jan, [facility] [address] [id number] [address] [place] [address], [place] [address] Jan, [facility] [address] [id number] [address] [place] [address], [place] [address] Jan, [facility] [address] [id number] [address] [place] [address], [place] [address] Jan, [facility] [address] [id number] [address] [place] [address], [place] [address] Jan, [facility] [address] [id number] [address] [place] [address], [place] [address] Jan, [facility] [address] [id number] [address] [place] [address], [place] [address] Dec, [facility] [address] [id number] [address] [place] [address], [place] [address] Dec, [facility] [address] [id number] [address] [place] [address], [place] [address] Dec, [facility] [address] [id number] [address] [place] [address], [place] [address] Dec, [facility] [address] [id number] [address] [place] [address], [place] [address] Nov, [facility] [address] [id number] [address] [place] [address], [place] [address] Nov, [facility] [address] [id number] [address] [place] [address], [place] [address] Nov, [facility] [address] [id number] [address] [place] [address], [place] [address] Nov, [facility] [address] [id number] [address] [place] [address], [place] [address] Nov, [facility] [address] [id number] [address] [place] [address], [place] [address] Nov, [facility] [address] [id number] [address] [place] [address], [place] [address] Oct, [facility] [address] [id number] [address] [place] [address], [place] [address] Oct, [facility] [address] [id number] [address] [place] [address], [place] [address] Sep, [facility] [address] [id number] [address] [place] [address], [place] [address] Sep, [facility] [address] [id number] [address] [place] [address], [place] [address] Sep, [facility] [address] [id number] [address] [place] [address], [place] [address] Sep, [facility] [address] [id number] [address] [place] [address], [place] [address] Aug, [facility] [address] [id number] [address] [place] [address], [place] [address] Aug, [facility] [address] [id number] [address] [place] [address], [place] [address] Aug, [facility] [address] [id number] [address] [place] [address], [place] [address] Jul, [facility] [address] [id number] [address] [place] [address], [place] [address] Jul, [facility] [address] [id number] [address] [place] [address], [place] [address] Jul, [facility] [address] [id number] [address] [place] [address], [place] [address] Jul, [facility] [address] [id number] [address] [place] [address], [place] [address] June, [facility] [address] [id number] [address] [place] [address], [place] [address] June, [facility] [address] [id number] [address] [place] [address], [place] [address] 30 May, 2012 [facility] [address] [id number] [address] [place] [address], [place] [address] 03 May, 2012 [facility] [address] [id number] [address] [place] [address], [place] [address] 29 Apr, 2012 [facility] [address] [id number] [address] [place] [address], [place] [address] Apr, [facility] [address] [id number] [address] [place] [address], [place] [address] 18 Mar, 2012 [facility] [address] [id number] [address] [place] [address], [place] [address] Mar, [facility] [address] [id number] [address] [place] [address], [place] [address] 31 Feb, 2012 [facility] [address] [id number] [address] [place] [address], [place] [address] 24 Feb, 2012 [facility] [address] [id number] [address] [place] [address], [place] [address] 18 Feb, 2012 [facility] [address] [id number] [address] [place] [address], [place] [address] 17 Feb, 2012 [facility] [address] [id number] [address] [place] [address], [place] [address] 17 Feb, 2012 [facility] [address] [id number] [address] [place] [address], [place] [address] 16 Feb, 2012 [facility] [address] [id number] [address] [place] [address], [place] [address] 16 Feb, 2012 [facility] [address] [id number] [address] [place] [address], [place] [address] 14 Feb, 2012 [facility] [address] [id number] [address] [place] [address], [place] [address] 11 Feb, 2012 [facility] [address] [id number] [address] [place] [address], [place] [address] Jan, [facility] [address] [id number] [address] [place] [address], [place] [address] Jan, [facility] [address] [id number] [address] [place] [address], [place] [address] Jan, [facility] [address] [id number] [address] [place] [address], [place] [id number] Jan, [facility] [address] [id number] [address] [place] [address], [place] [address] Dec, [facility] [address] [id number] [address] [place] [address], [place] [address] Dec, [facility] [address] [id number] [address] [place] [address], [place] [address] Dec, [facility] [address] [id number] [address] [place] [address], [place] [address] Dec, [facility] [address] [id number] [address] [place] [address], [place] [address] Oct, [facility] [address] [id number] [address] [place] [address], [place] [address] Sep, [facility] [address] [id number] [address] [place] [address], [place] [address] Sep, [facility] [address] [id number] [address] [place] [address], [place] [address] Aug, [facility] [address] [id number] [address] [place] [address], [place] [address] Jul, [facility] [address] [id number] [address] [place] [address], [place] [address] June, [facility] [address] [id number] [address] [place] [address], [place] [address] June, [facility] [address] [id number] [address] [place] [address], [place] [address] May, [facility] [address] [id number] [address] [place] [id number] Apr, [facility] [address] [id number] [address] [place] [id number] Mar, [facility] [address] [facility] [id number] [address] [place] [id number] Mar, [facility] [address] [facility] [id number] [address] [place] [id number] Feb, [facility] [address] [facility] [id number] [address] [place] [id number] Dec, [facility] [address] [facility] [id number] [address] [place] [id number] Nov, [facility] [address] [facility] [id number] [address] [place] [id number] Sep, [facility] [address] [facility] [id number] [address] [place] [id number] Aug, IMMUNIZATIONS No Known Immunizations SOCIAL HISTORY [...]
--- OUTSIDE RECORDS SUMMARY | 2019-07-02 15:40 | XMS REPORT ---
Author Author Madina BARKER Organization [facility] Address [address] [place] [address] Care Team Providers Care Highway Maintainer Name Role Phone TIFFANY BARKER Unavailable PROBLEMS Type Condition ICD9-CM Code [id number] Code Onset Dates Condition S tatus SNOMED Code Problem Asthma J45.909 Active 655587314 Problem Alcoholism F10.20 Active 1828667 Problem Arthritis M19.90 Active 0719272 Problem Other chronic pain G89.29 Active 8 2584988 Problem Bipolar disorder F31.9 Active 137 71468 Problem Closed fracture of shaft of right fibula, unspecified fracture morphology, initial encounter S82.401A Active 66115118 Problem Major depressive disorder, single episode F32.9 Active 94867530 Problem Arthropathy, unspecified M12.9 Activ e [id number] ALLERGIES No Information ENCOUNTERS Encounter Location Date Diagnosis [facility] [id number] [place] [phone] Apr, [facility] [id number] [place] [phone] Apr, Cough R05 and Hyperinflation of lungs R09.89 [facility] [address] [id number] [address] [place] [address] Dec, Arthritis M19.90 ; Alcoholis m F10.20 ; Encounter for immunization Z23 and Breast cancer screening by mammogram Z12.31 [place] [id number] [place] [address] Sep, [facility] [id number] [address] [place] [address] Sep, Arthropathy of right ankle M 19.071 [place] [id number] [address] [place] [address] Aug, Pain in right ankle and join ts of right foot M25.571 and Other chronic pain G89.29 [facility] [place] [address] [id number] [address] [place] [address] Jul, [address] [address] [facility] [id number] [address] [place] [address] Apr, [facility] [place] [address] [facility] [id number] [address] [place] [address] Apr, Injury of right ankle, initi al encounter S99.911A and Encounter for immunization Z23 [address] [address] [facility] [id number] [address] [place] [address] Dec, [place] [address] [facility] [id number] [address] [place] [address] Nov, Pain in right ankle and join ts of right foot M25.571 ; Other chronic pain G89.29 and Post-traumatic arthritis of right ankle M19.171 [place] [address] [facility] [id number] [address] [place] [address] Oct, Arthritis M19.90 [place] [address] [facility] [id number] [address] [place] [address] Aug, Arthritis M19.90 [place] [id number] [address] [place] [address] Aug, [place] [address] [facility] [id number] [address] [place] [address] Jul, [place] [address] [facility] [id number] [address] [place] [address] June, Arthropathy, unspecified M12 .9 [facility] [place] [address] [facility] [id number] [address] [place] [address] May, Asthma J45.909 and Major dep ressive disorder, single episode F32.9 [place] [id number] [place] [address] Mar, Closed fracture of shaft of right fibula, unspecified fracture morphology, initial encounter S82.401A [facility] [place] [address] [id number] [address] [place] [address] Feb, [facility] [place] [address] [facility] [id number] [address] [place] [address] Feb, [facility] [place] [address] [facility] [id number] [address] [place] [address] Nov, [facility] [address] [facility] [id number] [address] [place] [address] Nov, Bipolar disorder F31.9 ; Enc nter for immunization Z23 and Asthma J45.909 [facility] [place] [address] [facility] [id number] [address] [place] [address] Aug, [facility] [place] [address] [facility] [id number] [address] [place] [address] May, [facility] [place] [address] [id number] [address] [place] [address] Apr, [facility] [place] [address] [facility] [id number] [address] [place] [address] Apr, [facility] [place] [address] [facility] [id number] [address] [place] [address] Apr, URI (upper respiratory infec tion) J06.9 and Bipolar disorder F31.9 [facility] [place] [address] [id number] [address] [place] [address] Feb, [facility] [place] [address] [id number] [address] [place] [address] Feb, Asthma J45.909 and Alcoholis m F10.20 [facility] [place] [address] [facility] [id number] [address] [place] [address] Jan, [facility] [place] [address] [facility] [id number] [address] [place] [address] Jan, [facility] [place] [address] [facility] [id number] [address] [place] [address] Jan, [facility] [place] [address] [id number] [address] [place] [address] Nov, Alcoholism F10.20 and Anxiet y F41.9 [facility] [place] [address] [id number] [address] [place] [address] Jul, Anxiety 300.00 and Arthropat hy 716.90 [facility] [place] [address] [id number] [address] [place] [address] Jul, [facility] [address] [id number] [address] [place] [address] Jul, Anxiety state 300.00 [facility] [place] [address] [facility] [id number] [address] [place] [address] May, [facility] [place] [address] [id number] [address] [place] [address] May, [facility] [place] [address] [facility] [id number] [address] [place] [address] Apr, [facility] [place] [address] [facility] [id number] [address] [place] [address] Apr, [facility] [place] [address] [facility] [id number] [address] [place] [address] Mar, [facility] [place] [address] [id number] [address] [place] [address] Mar, [facility] [place] [address] [facility] [id number] [address] [place] [address] Feb, [facility] [place] [address] [facility] [id number] [address] [place] [address] Feb, [facility] [address] [facility] [id number] [address] [place] [address] Feb, [facility] [address] [id number] [address] [place] [address], [place] [address] Feb, [facility] [address] [id number] [address] [place] [address], [place] [address] Jan, [facility] [address] [id number] [address] [place] [address], [place] [address] Jan, [facility] [address] [id number] [address] [place] [address], [place] [address] Jan, [facility] [address] [id number] [address] [place] [address], [place] [address] Jan, [facility] [address] [id number] [address] [place] [address], [place] [address] Nov, [facility] [address] [id number] [address] [place] [address], [place] [address] Nov, [facility] [address] [id number] [address] [place] [address], [place] [address] Nov, [facility] [address] [id number] [address] [place] [address], [place] [address] Nov, [facility] [address] [id number] [address] [place] [address], [place] [address] Nov, [facility] [address] [id number] [address] [place] [address], [place] [address] Nov, [facility] [address] [id number] [address] [place] [address], [place] [address] Nov, [facility] [address] [id number] [address] [place] [address], [place] [address] Nov, [facility] [address] [id number] [address] [place] [address], [place] [address] Nov, [facility] [address] [id number] [address] [place] [address], [place] [address] Nov, [facility] [address] [id number] [address] [place] [address], [place] [address] Nov, [facility] [address] [id number] [address] [place] [address], [place] [address] 07 Nov, 2013 [facility] [address] [id number] [address] [place] [address], [place] [address] 07 Nov, 2013 [facility] [address] [id number] [address] [place] [address], [place] [address] 30 Oct, 2013 [facility] [address] [id number] [address] [place] [address], [place] [address] 30 Oct, 2013 [facility] [address] [id number] [address] [place] [address], [place] [address] 26 Oct, 2013 [facility] [address] [id number] [address] [place] [address], [place] [address] 26 Oct, 2013 [facility] [address] [id number] [address] [place] [address], [place] [address] 08 Oct, 2013 [facility] [address] [id number] [address] [place] [address], [place] [address] 08 Oct, 2013 [facility] [address] [id number] [address] [place] [address], [place] [address] 04 Oct, 2013 [facility] [address] [id number] [address] [place] [address], [place] [address] 04 Oct, 2013 [facility] [address] [id number] [address] [place] [address], [place] [address] 04 Oct, 2013 [facility] [address] [id number] [address] [place] [address], [place] [address] 04 Sep, 2013 [facility] [address] [id number] [address] [place] [address], [place] [address] 04 Oct, 2013 [facility] [address] [id number] [address] [place] [address], [place] [address] 04 Oct, 2013 [facility] [address] [id number] [address] [place] [address], [place] [address] Sep, [facility] [address] [id number] [address] [place] [address], [place] [address] Sep, [facility] [address] [id number] [address] [place] [address], [place] [address] Sep, [facility] [address] [id number] [address] [place] [address], [place] [address] Sep, [facility] [address] [id number] [address] [place] [address], [place] [address] Sep, [facility] [address] [id number] [address] [place] [address], [place] [address] Sep, [facility] [address] [id number] [address] [place] [address], [place] [address] Sep, [facility] [address] [id number] [address] [place] [address], [place] [address] Sep, [facility] [address] [id number] [address] [place] [address], [place] [address] Aug, [facility] [address] [id number] [address] [place] [address], [place] [address] Aug, [facility] [address] [id number] [address] [place] [address], [place] [address] Aug, [facility] [address] [id number] [address] [place] [address], [place] [address] Aug, [facility] [address] [id number] [address] [place] [address], [place] [address] Jul, [facility] [address] [id number] [address] [place] [address], [place] [address] Jul, [facility] [address] [id number] [address] [place] [address], [place] [address] Jul, [facility] [address] [id number] [address] [place] [address], [place] [address] Jul, [facility] [address] [id number] [address] [place] [address], [place] [address] Jul, [facility] [address] [id number] [address] [place] [address], [place] [address] Jul, [facility] [address] [id number] [address] [place] [address], [place] [address] June, [facility] [address] [id number] [address] [place] [address], [place] [address] June, [facility] [address] [id number] [address] [place] [address], [place] [address] June, [facility] [address] [id number] [address] [place] [address], [place] [address] June, [facility] [address] [id number] [address] [place] [address], [place] [address] June, [facility] [address] [id number] [address] [place] [address], [place] [address] June, [facility] [address] [id number] [address] [place] [address], [place] [address] May, [facility] [address] [id number] [address] [place] [address], [place] [address] May, [facility] [address] [id number] [address] [place] [address], [place] [address] May, [facility] [address] [id number] [address] [place] [address], [place] [address] May, [facility] [address] [id number] [address] [place] [address], [place] [address] May, [facility] [address] [id number] [address] [place] [address], [place] [address] May, [facility] [address] [id number] [address] [place] [address], [place] [address] May, [facility] [address] [id number] [address] [place] [address], [place] [address] May, [facility] [address] [id number] [address] [place] [address], [place] [address] May, [facility] [address] [id number] [facility] [address] May, [facility] [address] [id number] [address] [place] [address], [place] [address] Apr, [facility] [address] [id number] [facility] [address] Apr, [facility] [address] [id number] [address] [place] [address], [place] [address] Apr, [facility] [address] [id number] [address] [place] [address], [place] [address] Apr, [facility] [address] [id number] [address] [place] [address], [place] [address] Apr, [facility] [address] [id number] [address] [place] [address], [place] [address] Apr, [facility] [address] [id number] [address] [place] [address], [place] [address] Apr, [facility] [address] [id number] [address] [place] [address], [place] [address] Apr, [facility] [address] [id number] [address] [place] [address], [place] [address] Apr, [facility] [address] [id number] [address] [place] [address], [place] [address] Apr, [facility] [address] [id number] [address] [place] [address], [place] [address] Apr, [facility] [address] [id number] [address] [place] [address], [place] [address] Apr, [facility] [address] [id number] [address] [place] [address], [place] [address] Mar, [facility] [address] [id number] [address] [place] [address], [place] [address] Mar, [facility] [address] [id number] [address] [place] [address], [place] [address] Mar, [facility] [address] [id number] [address] [place] [address], [place] [address] Mar, [facility] [address] [id number] [address] [place] [address], [place] [address] Feb, [facility] [address] [id number] [address] [place] [address], [place] [address] Feb, [facility] [address] [id number] [address] [place] [address], [place] [address] Feb, [facility] [address] [id number] [address] [place] [address], [place] [address] Feb, [facility] [address] [id number] [address] [place] [address], [place] [address] Feb, [facility] [address] [id number] [address] [place] [address], [place] [address] Feb, [facility] [address] [id number] [address] [place] [address], [place] [address] Feb, [facility] [address] [id number] [address] [place] [address], [place] [address] Feb, [facility] [address] [id number] [address] [place] [address], [place] [address] Feb, [facility] [address] [id number] [address] [place] [address], [place] [address] Feb, [facility] [address] [id number] [address] [place] [address], [place] [address] Jan, [facility] [address] [id number] [address] [place] [address], [place] [address] Jan, [facility] [address] [id number] [address] [place] [address], [place] [address] Jan, [facility] [address] [id number] [address] [place] [address], [place] [address] Jan, [facility] [address] [id number] [address] [place] [address], [place] [address] Jan, [facility] [address] [id number] [address] [place] [address], [place] [address] Jan, [facility] [address] [id number] [address] [place] [address], [place] [address] Jan, [facility] [address] [id number] [address] [place] [address], [place] [address] Jan, [facility] [address] [id number] [address] [place] [address], [place] [address] Jan, [facility] [address] [id number] [address] [place] [address], [place] [address] Dec, [facility] [address] [id number] [address] [place] [address], [place] [address] Dec, [facility] [address] [id number] [address] [place] [address], [place] [address] Dec, [facility] [address] [id number] [address] [place] [address], [place] [address] Dec, [facility] [address] [id number] [address] [place] [address], [place] [address] Nov, [facility] [address] [id number] [address] [place] [address], [place] [address] Nov, [facility] [address] [id number] [address] [place] [address], [place] [address] Nov, [facility] [address] [id number] [address] [place] [address], [place] [address] Nov, [facility] [address] [id number] [address] [place] [address], [place] [address] Nov, [facility] [address] [id number] [address] [place] [address], [place] [address] Nov, [facility] [address] [id number] [address] [place] [address], [place] [address] Oct, [facility] [address] [id number] [address] [place] [address], [place] [address] Oct, [facility] [address] [id number] [address] [place] [address], [place] [address] Sep, [facility] [address] [id number] [address] [place] [address], [place] [address] Sep, [facility] [address] [id number] [address] [place] [address], [place] [address] Sep, [facility] [address] [id number] [address] [place] [address], [place] [address] Sep, [facility] [address] [id number] [address] [place] [address], [place] [address] Aug, [facility] [address] [id number] [address] [place] [address], [place] [address] Aug, [facility] [address] [id number] [address] [place] [address], [place] [address] Aug, [facility] [address] [id number] [address] [place] [address], [place] [address] Jul, [facility] [address] [id number] [address] [place] [address], [place] [address] Jul, [facility] [address] [id number] [address] [place] [address], [place] [address] Jul, [facility] [address] [id number] [address] [place] [address], [place] [address] Jul, [facility] [address] [id number] [address] [place] [address], [place] [address] June, [facility] [address] [id number] [address] [place] [address], [place] [address] June, [facility] [address] [id number] [address] [place] [address], [place] [address] May, [facility] [address] [id number] [address] [place] [address], [place] [address] 03 May, 2012 [facility] [address] [id number] [address] [place] [address], [place] [address] 29 Apr, 2012 [facility] [address] [id number] [address] [place] [address], [place] [address] 19 Apr, 2012 [facility] [address] [id number] [address] [place] [address], [place] [address] 18 Mar, 2012 [facility] [address] [id number] [address] [place] [address], [place] [address] Mar, [facility] [address] [id number] [address] [place] [address], [place] [address] 31 Feb, 2012 [facility] [address] [id number] [address] [place] [address], [place] [address] 24 Feb, 2012 [facility] [address] [id number] [address] [place] [address], [place] [address] 18 Feb, 2012 [facility] [address] [id number] [address] [place] [address], [place] [address] 17 Feb, 2012 [facility] [address] [id number] [address] [place] [address], [place] [address] 17 Feb, 2012 [facility] [facility] [address] [id number] [address] [place] [address], [place] [address] 16 Feb, 2012 [facility] [address] [id number] [address] [place] [address], [place] [address] 16 Feb, 2012 [facility] [address] [id number] [address] [place] [address], [place] [address] 14 Feb, 2012 [facility] [address] [id number] [address] [place] [address], [place] [address] 11 Feb, 2012 [facility] [address] [id number] [address] [place] [address], [place] [address] Jan, [facility] [address] [id number] [address] [place] [address], [place] [address] Jan, [facility] [address] [id number] [address] [place] [address], [place] [address] Jan, [facility] [address] [id number] [address] [place] [address], [place] [address] Jan, [facility] [address] [id number] [address] [place] [address], [place] [address] Dec, [facility] [address] [id number] [address] [place] [address], [place] [address] Dec, [facility] [address] [id number] [address] [place] [address], [place] [address] Dec, [facility] [address] [id number] [address] [place] [address], [place] [address] Dec, [facility] [address] [id number] [address] [place] [address], [place] [address] Oct, [facility] [address] [id number] [address] [place] [address], [place] [address] Sep, [facility] [address] [id number] [address] [place] [address], [place] [address] Sep, [facility] [address] [id number] [address] [place] [address], [place] [address] Aug, [facility] [address] [id number] [address] [place] [address], [place] [address] Jul, [facility] [address] [id number] [address] [place] [address], [place] [address] June, [facility] [address] [id number] [address] [place] [address], [place] [address] June, [facility] [address] [id number] [address] [place] [address], [place] [address] May, [facility] [address] [id number] [address] [place] [address], [place] [address] Apr, [facility] [address] [id number] [address] [place] [phone] 29 Mar, 2011 [facility] [place] [address] [facility] [id number] [address] [place] [phone] Mar, [facility] [place] [address] [facility] [id number] [address] [place] [id number] Feb, [facility] [place] [address] [facility] [id number] [address] [place] [phone] Dec, [facility] [place] [address] [facility] [id number] [address] [place] [phone] Nov, [facility] [place] [address] [facility] [id number] [address] [place] [phone] Sep, [facility] [place] [address] [facility] [id number] [address] [place] [phone] Aug, IMMUNIZATIONS No Known Immunizations SOCIAL HISTORY [...]
--- OUTSIDE RECORDS SUMMARY | 2019-07-02 15:40 | XMS REPORT ---
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 Name Role Phone HUMA LOZOYA Unavailable PROBLEMS Type Condition ICD9-CM Code VJX78-EQ Code Onset Dates Condition S tatus SNOMED Code Problem Asthma J45.909 Active 791684620 Problem Alcoholism F10.20 Active 7161792 Problem Arthritis M19.90 Active 4810360 Problem Other chronic pain G89.29 Active 8 7615542 Problem Bipolar disorder F31.9 Active 137 14099 Problem Closed fracture of shaft of right fibula, unspecified fracture morphology, initial encounter S82.401A Active 29827957 Problem Major depressive disorder, single episode F32.9 Active 70604498 Problem Arthropathy, unspecified M12.9 Activ e [id number] ALLERGIES No Information ENCOUNTERS Encounter Location Date Diagnosis [facility] [id number] [place] [phone] Apr, [facility] [id number] [place] [phone] Apr, Cough R05 and Hyperinflation of lungs R09.89 [facility] [place] [address] [facility] [id number] [address] [place] [address] Dec, Arthritis M19.90 ; Alcoholis m F10.20 ; Encounter for immunization Z23 and Breast cancer screening by mammogram Z12.31 [facility] [place] [address] [facility] [id number] [address] [place] [address] Sep, [facility] [place] [address] [id number] [address] [place] [address] Sep, Arthropathy of right ankle M 19.071 [facility] [place] [address] [id number] [address] [place] [address] Aug, Pain in right ankle and join ts of right foot M25.571 and Other chronic pain G89.29 [facility] [place] [address] [facility] [id number] [address] [place] [address] Jul, [facility] [place] [address] [facility] [id number] [address] [place] [address] Apr, [facility] [place] [address] [facility] [id number] [address] [place] [address] Apr, Injury of right ankle, initi al encounter S99.911A and Encounter for immunization Z23 [place] [address] [facility] [id number] [address] [place] [address] Dec, [place] [address] [facility] [id number] [address] [place] [address] Nov, Pain in right ankle and join ts of right foot M25.571 ; Other chronic pain G89.29 and Post-traumatic arthritis of right ankle M19.171 [place] [address] [facility] [id number] [address] [place] [address] Oct, Arthritis M19.90 [place] [address] [facility] [id number] [address] [place] [address] Aug, Arthritis M19.90 [place] [address] [facility] [id number] [address] [place] [address] Aug, [place] [address] [facility] [id number] [address] [place] [address] Jul, [place] [address] [facility] [id number] [address] [place] [address] June, Arthropathy, unspecified M12 .9 [place] [address] [facility] [id number] [address] [place] [address] May, Asthma J45.909 and Major dep ressive disorder, single episode F32.9 [facility] [place] [address] [id number] [address] [place] [address] Mar, Closed fracture of shaft of right fibula, unspecified fracture morphology, initial encounter S82.401A [facility] [place] [address] [facility] [id number] [address] [place] [address] Feb, [facility] [place] [address] [facility] [id number] [address] [place] [address] Feb, [facility] [place] [address] [facility] [id number] [address] [place] [address] Nov, [facility] [place] [address] [facility] [id number] [address] [place] [address] Nov, Bipolar disorder F31.9 ; Enc ounter for immunization Z23 and Asthma J45.909 [facility] [place] [address] [facility] [id number] [address] [place] [address] Aug, [facility] [place] [address] [id number] [address] [place] [address] May, [facility] [place] [address] [facility] [id number] [address] [place] [address] Apr, [facility] [place] [address] [id number] [address] [place] [address] Apr, [facility] [place] [address] [facility] [id number] [address] [place] [address] Apr, URI (upper respiratory infec tion) J06.9 and Bipolar disorder F31.9 [facility] [place] [address] [facility] [id number] [address] [place] [address] Feb, [facility] [place] [address] [facility] [id number] [address] [place] [address] Feb, Asthma J45.909 and Alcoholis m F10.20 [facility] [place] [address] [facility] [id number] [address] [place] [address] Jan, [facility] [place] [address] [id number] [address] [place] [address] Jan, [facility] [place] [address] [id number] [address] [place] [address] Jan, [facility] [place] [address] [id number] [address] [place] [address] Nov, Alcoholism F10.20 and Anxiet y F41.9 [facility] [place] [address] [id number] [address] [place] [address] Jul, Anxiety 300.00 and Arthropat hy 716.90 [facility] [place] [address] [id number] [address] [place] [address] Jul, [facility] [place] [address] [id number] [address] [place] [address] Jul, Anxiety state 300.00 [facility] [place] [address] [facility] [id number] [address] [place] [address] May, [facility] [place] [address] [id number] [address] [place] [address] May, [facility] [place] [address] [facility] [id number] [address] [place] [address] Apr, [facility] [place] [address] [facility] [id number] [address] [place] [address] Apr, [facility] [place] [address] [facility] [id number] [address] [place] [address] Mar, [facility] [place] [address] [id number] [address] [place] [address] Mar, [facility] [place] [address] [facility] [id number] [address] [place] [address] Feb, [facility] [place] [address] [id number] [address] [place] [address] Feb, [facility] [place] [address] [facility] [id number] [address] [place] [address] Feb, [facility] [place] [address] [id number] [address] [place] [address] Feb, [facility] [address] [id number] [address] [place] [address], [place] [address] Jan, [facility] [address] [id number] [address] [place] [address], [place] [address] Jan, [facility] [address] [id number] [address] [place] [address], [place] [address] Jan, [facility] [address] [id number] [address] [place] [address], [place] [address] Jan, [facility] [address] [id number] [address] [place] [address], [place] [address] Nov, [facility] [address] [id number] [address] [place] [address], [place] [address] Nov, [facility] [address] [id number] [address] [place] [address], [place] [address] Nov, [facility] [address] [id number] [address] [place] [address], [place] [address] Nov, [facility] [address] [id number] [address] [place] [address], [place] [address] Nov, [facility] [address] [id number] [address] [place] [address], [place] [address] Nov, [facility] [address] [id number] [address] [place] [address], [place] [address] Nov, [facility] [address] [id number] [address] [place] [address] Nov, [facility] [address] [id number] [address] [place] [address], [place] [address] Nov, [facility] [address] [id number] [address] [place] [address], [place] [address] Nov, [facility] [address] [id number] [address] [place] [address], [place] [address] Nov, [facility] [address] [id number] [address] [place] [address], [place] [address] 07 Nov, 2013 [facility] [address] [id number] [address] [place] [address], [place] [address] 07 Nov, 2013 [facility] [address] [id number] [address] [place] [address], [place] [address] 30 Oct, 2013 [facility] [address] [id number] [address] [place] [address], [place] [address] 30 Sep, 2013 [facility] [address] [id number] [address] [place] [address], [place] [address] 26 Oct, 2013 [facility] [address] [id number] [address] [place] [address], [place] [address] 26 Oct, 2013 [facility] [address] [id number] [address] [place] [address], [place] [address] 08 Oct, 2013 [facility] [address] [id number] [address] [place] [address], [place] [address] 08 Oct, 2013 [facility] [address] [id number] [address] [place] [address], [place] [address] 04 Sep, 2013 [facility] [address] [id number] [address] [place] [address], [place] [address] 04 Oct, 2013 [facility] [address] [id number] [address] [place] [address], [place] [address] 04 Oct, 2013 [facility] [address] [id number] [address] [place] [address], [place] [address] 04 Oct, 2013 [facility] [address] [id number] [address] [place] [address], [place] [address] 04 Oct, 2013 [facility] [address] [id number] [address] [place] [address], [place] [address] 04 Oct, 2013 [facility] [address] [id number] [address] [place] [address], [place] [address] Sep, [facility] [address] [id number] [address] [place] [address], [place] [address] Sep, [facility] [address] [id number] [facility] [place] [address] Sep, [facility] [address] [id number] [facility] [place] [address] Sep, [facility] [address] [id number] [facility] [place] [address] Sep, [facility] [address] [id number] [address] [place] [address], [place] [address] Sep, [facility] [address] [id number] [address] [place] [address], [place] [address] Sep, [facility] [address] [id number] [address] [place] [address], [place] [address] Sep, [facility] [address] [id number] [address] [place] [address], [place] [address] Aug, [facility] [address] [id number] [address] [place] [address], [place] [address] Aug, [facility] [address] [id number] [address] [place] [address], [place] [address] Aug, [facility] [address] [id number] [address] [place] [address], [place] [address] Aug, [facility] [address] [id number] [address] [place] [address], [place] [address] Jul, [facility] [address] [id number] [address] [place] [address], [place] [address] Jul, [facility] [address] [id number] [address] [place] [address], [place] [address] Jul, [facility] [address] [id number] [address] [place] [address], [place] [address] Jul, [facility] [address] [id number] [address] [place] [address], [place] [address] Jul, [facility] [address] [id number] [address] [place] [address], [place] [address] Jul, [facility] [address] [id number] [address] [place] [address], [place] [address] June, [facility] [address] [id number] [address] [place] [address], [place] [address] June, [facility] [address] [id number] [address] [place] [address], [place] [address] June, [facility] [address] [id number] [address] [place] [address], [place] [address] June, [facility] [address] [id number] [address] [place] [address], [place] [address] June, [facility] [address] [id number] [address] [place] [address], [place] [address] June, [facility] [address] [id number] [address] [place] [address], [place] [address] May, [facility] [address] [id number] [address] [place] [address], [place] [address] May, [facility] [address] [id number] [address] [place] [address], [place] [address] May, [facility] [address] [id number] [address] [place] [address], [place] [address] May, [facility] [address] [id number] [address] [place] [address], [place] [address] May, [facility] [address] [id number] [address] [place] [address], [place] [address] May, [facility] [address] [id number] [address] [place] [address], [place] [address] May, [facility] [address] [id number] [address] [place] [address], [place] [address] May, [facility] [address] [id number] [address] [place] [address], [place] [address] May, [facility] [address] [id number] [facility] [place] [address] May, [facility] [address] [id number] [facility] [place] [address] Apr, [facility] [address] [id number] [facility] [place] [address] Apr, [facility] [address] [id number] [facility] [place] [address] Apr, [facility] [address] [id number] [facility] [place] [address] Apr, [facility] [address] [id number] [address] [place] [address], [place] [address] Apr, [facility] [address] [id number] [address] [place] [address], [place] [address] Apr, [facility] [address] [id number] [address] [place] [address], [place] [address] Apr, [facility] [address] [id number] [address] [place] [address], [place] [address] Apr, [facility] [address] [id number] [address] [place] [address], [place] [address] Apr, [facility] [address] [id number] [address] [place] [address], [place] [address] Apr, [facility] [address] [id number] [address] [place] [address], [place] [address] Apr, [facility] [address] [id number] [address] [place] [address], [place] [address] Apr, [facility] [address] [id number] [address] [place] [address], [place] [address] Mar, [facility] [address] [id number] [address] [place] [address], [place] [address] Mar, [facility] [address] [id number] [address] [place] [address], [place] [address] Mar, [facility] [address] [id number] [address] [place] [address], [place] [address] Mar, [facility] [address] [id number] [address] [place] [address], [place] [address] Feb, [facility] [address] [id number] [address] [place] [address], [place] [address] Feb, [facility] [address] [id number] [address] [place] [address], [place] [address] Feb, [facility] [address] [id number] [address] [place] [address], [place] [address] Feb, [facility] [address] [id number] [address] [place] [address], [place] [address] Feb, [facility] [address] [id number] [address] [place] [address], [place] [address] Feb, [facility] [address] [id number] [address] [place] [address], [place] [address] Feb, [facility] [address] [id number] [address] [place] [address], [place] [address] Feb, [facility] [address] [id number] [address] [place] [address], [place] [address] Feb, [facility] [address] [id number] [address] [place] [address], [place] [address] Feb, [facility] [address] [id number] [address] [place] [address], [place] [address] Jan, [facility] [address] [id number] [address] [place] [address], [place] [address] Jan, [facility] [address] [id number] [address] [place] [address], [place] [address] Jan, [facility] [address] [id number] [address] [place] [address], [place] [address] Jan, [facility] [address] [id number] [address] [place] [address], [place] [address] Jan, [facility] [address] [id number] [address] [place] [address], [place] [address] Jan, [facility] [address] [id number] [address] [place] [address], [place] [address] Jan, [facility] [address] [id number] [address] [place] [address], [place] [address] Jan, [facility] [address] [id number] [address] [place] [address], [place] [address] Jan, [facility] [address] [id number] [address] [place] [address], [place] [address] Dec, [facility] [address] [id number] [address] [place] [address], [place] [address] Dec, [facility] [address] [id number] [address] [place] [address], [place] [address] Dec, [facility] [address] [id number] [address] [place] [address], [place] [address] Dec, [facility] [address] [id number] [address] [place] [address], [place] [address] Nov, [facility] [address] [id number] [address] [place] [address], [place] [address] Nov, [facility] [address] [id number] [address] [place] [address], [place] [address] Nov, [facility] [address] [id number] [address] [place] [address], [place] [address] Nov, [facility] [address] [id number] [address] [place] [address], [place] [address] Nov, [facility] [address] [id number] [address] [place] [address], [place] [address] Nov, [facility] [address] [id number] [address] [place] [address], [place] [address] Oct, [facility] [address] [id number] [address] [place] [address], [place] [address] Oct, [facility] [address] [id number] [address] [place] [address], [place] [address] Sep, [facility] [address] [id number] [address] [place] [address], [place] [address] Sep, [facility] [address] [id number] [address] [place] [address], [place] [address] Sep, [facility] [address] [id number] [address] [place] [address], [place] [address] Sep, [facility] [address] [id number] [address] [place] [address], [place] [address] Aug, [facility] [address] [id number] [address] [place] [address], [place] [address] Aug, [facility] [address] [id number] [address] [place] [address], [place] [address] Aug, [facility] [address] [id number] [address] [place] [address], [place] [address] Jul, [facility] [address] [id number] [address] [place] [address], [place] [address] Jul, [facility] [address] [id number] [address] [place] [address], [place] [address] Jul, [facility] [address] [id number] [address] [place] [address], [place] [address] Jul, [facility] [address] [id number] [address] [place] [address], [place] [address] June, [facility] [address] [id number] [address] [place] [address], [place] [address] June, [facility] [address] [id number] [address] [place] [address], [place] [address] May, [facility] [address] [id number] [address] [place] [address], [place] [address] 03 May, 2012 [facility] [address] [id number] [address] [place] [address], [place] [address] 29 Apr, 2012 [facility] [address] [id number] [address] [place] [address], [place] [address] 19 Apr, 2012 [facility] [address] [id number] [address] [place] [address], [place] [address] 18 Mar, 2012 [facility] [address] [id number] [address] [place] [address], [place] [address] Mar, [facility] [address] [id number] [address] [place] [address], [place] [address] 31 Feb, 2012 [facility] [address] [id number] [address] [place] [address], [place] [address] 24 Feb, 2012 [facility] [address] [id number] [address] [place] [address], [place] [address] 18 Feb, 2012 [facility] [address] [id number] [address] [place] [address], [place] [address] 17 Feb, 2012 [facility] [address] [id number] [address] [place] [address], [place] [address] 17 Feb, 2012 [facility] [address] [id number] [address] [place] [address], [place] [address] 16 Feb, 2012 [facility] [address] [id number] [address] [place] [address], [place] [address] 16 Feb, 2012 [facility] [address] [id number] [address] [place] [address], [place] [address] 14 Feb, 2012 [facility] [address] [id number] [address] [place] [address], [place] [address] 11 Feb, 2012 [facility] [address] [id number] [address] [place] [address], [place] [address] Jan, [facility] [address] [id number] [address] [place] [address], [place] [address] Jan, [facility] [address] [id number] [place] [address], [place] [id number] Jan, [facility] [address] [id number] [address] [place] [address], [place] [id number] Jan, [facility] [address] [id number] [address] [place] [address], [place] [phone] Dec, [facility] [address] [id number] [address] [place] [address], [place] [id number] Dec, [facility] [address] [id number] [address] [place] [address], [place] [address] Dec, [facility] [address] [id number] [address] [place] [address], [place] [id number] Dec, [facility] [address] [id number] [address] [place] [address], [place] [id number] Oct, [facility] [address] [id number] [address] [place] [address], [place] [id number] Sep, [facility] [address] [id number] [address] [place] [address], [place] [address] Sep, [facility] [address] [id number] [address] [place] [address], [place] [address] Aug, [facility] [address] [id number] [address] [place] [address], [place] [address] Jul, [facility] [address] [id number] [address] [place] [address], [place] [address] June, [facility] [address] [id number] [address] [place] [address], [place] [address] June, [facility] [address] [id number] [address] [place] [address], [place] [address] May, [facility] [address] [id number] [address] [place] [address], [place] [address] Apr, [facility] [address] [id number] [address] [place] [id number] Mar, [facility] [place] [address] [facility] [id number] [address] [place] [id number] Mar, [facility] [place] [address] [facility] [id number] [address] [place] [id number] Feb, [facility] [place] [address] [facility] [id number] [address] [place] [phone] Dec, [facility] [place] [address] [facility] [id number] [address] [place] [id number] Nov, [facility] [place] [address] [facility] [id number] [address] [place] [phone] Sep, [facility] [place] [address] [facility] [id number] [address] [place] [id number] Aug, IMMUNIZATIONS No Known Immunizations SOCIAL HISTORY [...]
--- OUTSIDE RECORDS SUMMARY | 2019-07-02 15:40 | XMS REPORT ---
Author Author Madina LOZOYA Organization [facility] Address [address] [place] [address] Care Team Providers Care House Wrecker Name Role Phone HUMA LOZOYA Unavailable PROBLEMS Type Condition ICD9-CM Code VMO10-[place] Code Onset Dates Condition S tatus SNOMED Code Problem Asthma J45.909 Active 470489681 Problem Alcoholism F10.20 Active 0060415 Problem Arthritis M19.90 Active 7794918 Problem Other chronic pain G89.29 Active 8 5838601 Problem Bipolar disorder F31.9 Active 137 26836 Problem Closed fracture of shaft of right fibula, unspecified fracture morphology, initial encounter S82.401A Active 05400418 Problem Major depressive disorder, single episode F32.9 Active 17403653 Problem Arthropathy, unspecified M12.9 Activ e [id number] ALLERGIES No Information ENCOUNTERS Encounter Location Date Diagnosis [facility] [id number] [place] [phone] Apr, [facility] [id number] [place] [phone] Apr, Cough R05 and Hyperinflation of lungs R09.89 [facility] [address] [facility] [id number] [address] [place] [address] Dec, Arthritis M19.90 ; Alcoholis m F10.20 ; Encounter for immunization Z23 and Breast cancer screening by mammogram Z12.31 [facility] [address] [facility] [id number] [address] [place] [address] Sep, [facility] [address] [id number] [address] [place] [address] Sep, Arthropathy of right ankle M 19.071 [facility] [address] [id number] [address] [place] [address] Aug, Pain in right ankle and join ts of right foot M25.571 and Other chronic pain G89.29 [facility] [address] [facility] [id number] [address] [place] [address] Jul, [facility] [address] [facility] [id number] [address] [place] [address] Apr, [facility] [address] [facility] [id number] [address] [place] [address] Apr, Injury of right ankle, initi al encounter S99.911A and Encounter for immunization Z23 [place] [address] [facility] [id number] [address] [place] [address] Dec, [place] [address] [facility] [id number] [address] [place] [address] Nov, Pain in right ankle and join ts of right foot M25.571 ; Other chronic pain G89.29 and Post-traumatic arthritis of right ankle M19.171 [place] [address] [facility] [id number] [address] [place] [address] Oct, Arthritis M19.90 [place] [address] [facility] [id number] [address] [place] [address] Aug, Arthritis M19.90 [place] [address] [facility] [id number] [address] [place] [address] Aug, [place] [address] [facility] [id number] [address] [place] [address] Jul, [place] [address] [facility] [id number] [address] [place] [address] June, Arthropathy, unspecified M12 .9 [place] [address] [facility] [id number] [address] [place] [address] May, Asthma J45.909 and Major dep ressive disorder, single episode F32.9 [facility] [address] [id number] [address] [place] [address] Mar, Closed fracture of shaft of right fibula, unspecified fracture morphology, initial encounter S82.401A [facility] [address] [facility] [id number] [address] [place] [address] Feb, [facility] [address] [facility] [id number] [address] [place] [address] Feb, [facility] [address] [facility] [id number] [address] [place] [address] Nov, [facility] [address] [facility] [id number] [address] [place] [address] Nov, Bipolar disorder F31.9 ; Enc ounter for immunization Z23 and Asthma J45.909 [facility] [address] [facility] [id number] [address] [place] [address] Aug, [facility] [id number] [address] [place] [address] May, [facility] [address] [facility] [id number] [address] [place] [address] Apr, [facility] [id number] [address] [place] [address] Apr, [facility] [address] [facility] [id number] [address] [place] [address] Apr, URI (upper respiratory infec tion) J06.9 and Bipolar disorder F31.9 [facility] [address] [facility] [id number] [address] [place] [address] Feb, [facility] [address] [facility] [id number] [address] [place] [address] Feb, Asthma J45.909 and Alcoholis m F10.20 [facility] [address] [facility] [id number] [address] [place] [address] Jan, [facility] [id number] [address] [place] [address] Jan, [facility] [address] [id number] [address] [place] [address] Jan, [facility] [address] [id number] [address] [place] [address] Nov, Alcoholism F10.20 and Anxiet y F41.9 [facility] [address] [id number] [address] [place] [address] Jul, Anxiety 300.00 and Arthropat hy 716.90 [facility] [address] [id number] [address] [place] [address] Jul, [facility] [address] [id number] [address] [place] [address] Jul, Anxiety state 300.00 [facility] [address] [facility] [id number] [address] [place] [address] May, [facility] [address] [id number] [address] [place] [address] May, [facility] [address] [facility] [id number] [address] [place] [address] Apr, [facility] [address] [facility] [id number] [address] [place] [address] Apr, [facility] [address] [facility] [id number] [address] [place] [address] Mar, [facility] [address] [id number] [address] [place] [address] Mar, [facility] [address] [facility] [id number] [address] [place] [address] Feb, [facility] [address] [id number] [address] [place] [address] Feb, [facility] [address] [facility] [id number] [address] [place] [phone] Feb, [facility] [address] [id number] [address] [place] [address] Feb, [facility] [address] [id number] [address] [place] [address], [place] [address] Jan, [facility] [address] [id number] [address] [place] [address], [place] [address] Jan, [facility] [address] [id number] [address] [place] [address], [place] [address] Jan, [facility] [address] [id number] [address] [place] [address], [place] [address] Jan, [facility] [address] [id number] [address] [place] [address], [place] [address] Nov, [facility] [address] [id number] [address] [place] [address], [place] [address] Nov, [facility] [address] [id number] [address] [place] [address], [place] [address] Nov, [facility] [address] [id number] [address] [place] [address], [place] [address] Nov, [facility] [address] [id number] [address] [place] [address], [place] [address] Nov, [facility] [address] [id number] [address] [place] [address], [place] [address] Nov, [facility] [address] [id number] [address] [place] [address], [place] [address] Nov, [facility] [address] [id number] [address] [place] [id number] Nov, [facility] [address] [id number] [address] [place] [address], [place] [address] Nov, [facility] [address] [id number] [address] [place] [address], [place] [address] Nov, [facility] [address] [id number] [address] [place] [address], [place] [address] Nov, [facility] [address] [id number] [address] [place] [address], [place] [address] 07 Nov, 2013 [facility] [address] [id number] [address] [place] [address], [place] [id number] 07 Nov, 2013 [facility] [address] [id number] [address] [place] [address], [place] [address] 30 Oct, 2013 [facility] [address] [id number] [address] [place] [address], [place] [id number] 30 Sep, 2013 [facility] [address] [id number] [address] [place] [address], [place] [id number] 26 Oct, 2013 [facility] [address] [id number] [address] [place] [address], [place] [id number] 26 Oct, 2013 [facility] [address] [id number] [address] [place] [address], [place] [id number] 08 Oct, 2013 [facility] [address] [id number] [address] [place] [address], [place] [id number] 08 Oct, 2013 [facility] [address] [id number] [address] [place] [address], [place] [address] 04 Sep, 2013 [facility] [address] [id number] [address] [place] [address], [place] [address] 04 Oct, 2013 [facility] [address] [id number] [address] [place] [address], [place] [address] 04 Oct, 2013 [facility] [address] [id number] [address] [place] [address], [place] [address] 04 Oct, 2013 [facility] [address] [id number] [address] [place] [address], [place] [id number] 04 Oct, 2013 [facility] [address] [id number] [address] [place] [address], [place] [id number] 04 Oct, 2013 [facility] [address] [id number] [address] [place] [address], [place] [address] Sep, [facility] [address] [id number] [address] [place] [address], [place] [address] Sep, [facility] [address] [id number] [facility] [place] [address] Sep, [facility] [address] [id number] [facility] [place] [address] Sep, [facility] [address] [id number] [facility] [place] [address] Sep, [facility] [address] [id number] [address] [place] [address], [place] [address] Sep, [facility] [address] [id number] [address] [place] [address], [place] [address] Sep, [facility] [address] [id number] [address] [place] [address], [place] [address] Sep, [facility] [address] [id number] [address] [place] [address], [place] [address] Aug, [facility] [address] [id number] [address] [place] [address], [place] [address] Aug, [facility] [address] [id number] [address] [place] [address], [place] [address] Aug, [facility] [address] [id number] [address] [place] [address], [place] [address] Aug, [facility] [address] [id number] [address] [place] [address], [place] [address] Jul, [facility] [address] [id number] [address] [place] [address], [place] [address] Jul, [facility] [address] [id number] [address] [place] [address], [place] [address] Jul, [facility] [address] [id number] [address] [place] [address], [place] [address] Jul, [facility] [address] [id number] [address] [place] [address], [place] [address] Jul, [facility] [address] [id number] [address] [place] [address], [place] [address] Jul, [facility] [address] [id number] [address] [place] [address], [place] [address] June, [facility] [address] [id number] [address] [place] [address], [place] [address] June, [facility] [address] [id number] [address] [place] [address], [place] [address] June, [facility] [address] [id number] [address] [place] [address], [place] [address] June, [facility] [address] [id number] [address] [place] [address], [place] [address] June, [facility] [address] [id number] [address] [place] [address], [place] [address] June, [facility] [address] [id number] [address] [place] [address], [place] [address] May, [facility] [address] [id number] [address] [place] [address], [place] [address] May, [facility] [address] [id number] [address] [place] [address], [place] [address] May, [facility] [address] [id number] [address] [place] [address], [place] [address] May, [facility] [address] [id number] [address] [place] [address], [place] [address] May, [facility] [address] [id number] [address] [place] [address], [place] [address] May, [facility] [address] [id number] [address] [place] [address], [place] [address] May, [facility] [address] [id number] [address] [place] [address], [place] [address] May, [facility] [address] [id number] [address] [place] [address], [place] [address] May, [facility] [address] [id number] [facility] [place] [address] May, [facility] [address] [id number] [facility] [place] [address] Apr, [facility] [address] [id number] [facility] [place] [address] Apr, [facility] [address] [id number] [facility] [place] [address] Apr, [facility] [address] [id number] [facility] [place] [address] Apr, [facility] [address] [id number] [address] [place] [address], [place] [address] Apr, [facility] [address] [id number] [address] [place] [address], [place] [address] Apr, [facility] [address] [id number] [address] [place] [address], [place] [address] Apr, [facility] [address] [id number] [address] [place] [address], [place] [address] Apr, [facility] [address] [id number] [address] [place] [address], [place] [address] Apr, [facility] [address] [id number] [address] [place] [address], [place] [address] Apr, [facility] [address] [id number] [address] [place] [address], [place] [address] Apr, [facility] [address] [id number] [address] [place] [address], [place] [address] Apr, [facility] [address] [id number] [address] [place] [address], [place] [address] Mar, [facility] [address] [id number] [address] [place] [address], [place] [address] Mar, [facility] [address] [id number] [address] [place] [address], [place] [address] Mar, [facility] [address] [id number] [address] [place] [address], [place] [address] Mar, [facility] [address] [id number] [address] [place] [address], [place] [address] Feb, [facility] [address] [id number] [address] [place] [address], [place] [address] Feb, [facility] [address] [id number] [address] [place] [address], [place] [address] Feb, [facility] [address] [id number] [address] [place] [address], [place] [address] Feb, [facility] [address] [id number] [address] [place] [address], [place] [address] Feb, [facility] [address] [id number] [address] [place] [address], [place] [address] Feb, [facility] [address] [id number] [address] [place] [address], [place] [address] Feb, [facility] [address] [id number] [address] [place] [address], [place] [address] Feb, [facility] [address] [id number] [address] [place] [address], [place] [address] Feb, [facility] [address] [id number] [address] [place] [address], [place] [address] Feb, [facility] [address] [id number] [address] [place] [address], [place] [address] Jan, [facility] [address] [id number] [address] [place] [address], [place] [address] Jan, [facility] [address] [id number] [address] [place] [address], [place] [address] Jan, [facility] [address] [id number] [address] [place] [address], [place] [address] Jan, [facility] [address] [id number] [address] [place] [address], [place] [address] Jan, [facility] [address] [id number] [address] [place] [address], [place] [address] Jan, [facility] [address] [id number] [address] [place] [address], [place] [address] Jan, [facility] [address] [id number] [address] [place] [address], [place] [address] Jan, [facility] [address] [id number] [address] [place] [address], [place] [address] Jan, [facility] [address] [id number] [address] [place] [address], [place] [address] Dec, [facility] [address] [id number] [address] [place] [address], [place] [address] Dec, [facility] [address] [id number] [address] [place] [address], [place] [address] Dec, [facility] [address] [id number] [address] [place] [address], [place] [address] Dec, [facility] [address] [id number] [address] [place] [address], [place] [address] Nov, [facility] [address] [id number] [address] [place] [address], [place] [address] Nov, [facility] [address] [id number] [address] [place] [address], [place] [address] Nov, [facility] [address] [id number] [address] [place] [address], [place] [address] Nov, [facility] [address] [id number] [address] [place] [address], [place] [address] Nov, [facility] [address] [id number] [address] [place] [address], [place] [address] Nov, [facility] [address] [id number] [address] [place] [address], [place] [address] Oct, [facility] [address] [id number] [address] [place] [address], [place] [address] Oct, [facility] [address] [id number] [address] [place] [address], [place] [address] Sep, [facility] [address] [id number] [address] [place] [address], [place] [id number] Sep, [facility] [address] [id number] [address] [place] [address], [place] [id number] Sep, [facility] [address] [id number] [address] [place] [address], [place] [id number] Sep, [facility] [address] [id number] [address] [place] [address], [place] [id number] Aug, [facility] [address] [id number] [address] [place] [address], [place] [id number] Aug, [facility] [address] [id number] [address] [place] [address], [place] [id number] Aug, [facility] [address] [id number] [address] [place] [address], [place] [id number] Jul, [facility] [address] [id number] [address] [place] [address], [place] [id number] Jul, [facility] [address] [id number] [address] [place] [address], [place] [id number] Jul, [facility] [address] [id number] [address] [place] [address], [place] [id number] Jul, [facility] [address] [id number] [address] [place] [address], [place] [id number] June, [facility] [address] [id number] [address] [place] [address], [place] [id number] June, [facility] [address] [id number] [address] [place] [address], [place] [id number] May, [facility] [address] [id number] [address] [place] [address], [place] [id number] 03 May, 2012 [facility] [address] [id number] [address] [place] [address], [place] [id number] 29 Apr, 2012 [facility] [address] [id number] [address] [place] [address], [place] [id number] 19 Apr, 2012 [facility] [address] [id number] [address] [place] [address], [place] [id number] 18 Mar, 2012 [facility] [address] [id number] [address] [place] [address], [place] [id number] Mar, [facility] [address] [id number] [address] [place] [address], [place] [id number] 31 Feb, 2012 [facility] [address] [id number] [address] [place] [address], [place] [id number] 24 Feb, 2012 [facility] [address] [id number] [address] [place] [address], [place] [id number] 18 Feb, 2012 [facility] [address] [id number] [address] [place] [address], [place] [id number] 17 Feb, 2012 [facility] [address] [id number] [address] [place] [address], [place] [id number] 17 Feb, 2012 [facility] [address] [id number] [address] [place] [address], [place] [id number] 16 Feb, 2012 [facility] [address] [id number] [address] [place] [address], [place] [id number] 16 Feb, 2012 [facility] [address] [id number] [address] [place] [address], [place] [id number] 14 Feb, 2012 [facility] [address] [id number] [address] [place] [address], [place] [id number] 11 Feb, 2012 [facility] [address] [id number] [address] [place] [address], [place] [id number] Jan, [facility] [address] [id number] [address] [place] [address], [place] [id number] Jan, [facility] [address] [id number] [address] [place] [address], [place] [id number] Jan, [facility] [address] [id number] [address] [place] [address], [place] [id number] Jan, [facility] [address] [id number] [address] [place] [address], [place] [id number] Dec, [facility] [address] [id number] [address] [place] [address], [place] [id number] Dec, [facility] [address] [id number] [address] [place] [address], [place] [id number] Dec, [facility] [address] [id number] [address] [place] [address], [place] [id number] Dec, [facility] [address] [id number] [address] [place] [address], [place] [id number] Oct, [facility] [address] [id number] [address] [place] [address], [place] [id number] Sep, [facility] [address] [id number] [address] [place] [address], [place] [id number] Sep, [facility] [address] [id number] [address] [place] [address], [place] [id number] Aug, [facility] [address] [id number] [address] [place] [address], [place] [id number] Jul, [facility] [address] [id number] [address] [place] [address], [place] [id number] June, [facility] [address] [id number] [address] [place] [address], [place] [id number] June, [facility] [address] [id number] [address] [place] [address], [place] [id number] May, [facility] [address] [id number] [address] [place] [address], [place] [id number] Apr, [facility] [address] [id number] [address] [place] [id number] Mar, [facility] [address] [facility] [id number] [address] [place] [id number] Mar, [facility] [address] [facility] [id number] [address] [place] [id number] Feb, [facility] [address] [facility] [id number] [address] [place] [phone] Dec, [facility] [address] [facility] [id number] [address] [place] [phone] Nov, [facility] [address] [facility] [id number] [address] [place] [id number] Sep, [facility] [address] [facility] [id number] [address] [place] [id number] Aug, IMMUNIZATIONS No Known Immunizations SOCIAL HISTORY [...]
--- OUTSIDE RECORDS SUMMARY | 2019-07-02 15:41 | XMS REPORT ---
Author Author Madina Shelton Organization [facility] Address [address] [place] [address] Care Team Providers Care Scrum Product Owner Name Role Phone APRIL Shelton Unavailable PROBLEMS Type Condition ICD9-CM Code VEG55-PO Code Onset Dates Condition S tatus SNOMED Code Problem Asthma J45.909 Active 116718690 Problem Alcoholism F10.20 Active 3353455 Problem Arthritis M19.90 Active 1242056 Problem Other chronic pain G89.29 Active 8 6792346 Problem Bipolar disorder F31.9 Active 137 48829 Problem Closed fracture of shaft of right fibula, unspecified fracture morphology, initial encounter S82.401A Active 93571797 Problem Major depressive disorder, single episode F32.9 Active 80441748 Problem Arthropathy, unspecified M12.9 Activ e [id number] ALLERGIES No Information ENCOUNTERS Encounter Location Date Diagnosis [place] [id number] [facility] [id number] [address] [place] [address] May, [facility] [id number] [place] [id number] Apr, [facility] [address] [place] [id number] [place] [address] [phone] Apr, Cough R05 and Hyperinflation of lungs R09.89 [facility] [address] [facility] [id number] [address] [place] [address] Dec, Arthritis M19.90 ; Alcoholis m F10.20 ; Encounter for immunization Z23 and Breast cancer screening by mammogram Z12.31 [facility] [address] [facility] [id number] [address] [place] [address] Sep, [facility] [address] [place] [id number] [address] [place] [address] Sep, Arthropathy of right ankle M 19.071 [facility] [address] [id number] [address] [place] [address] Aug, Pain in right ankle and join ts of right foot M25.571 and Other chronic pain G89.29 [facility] [address] [id number] [address] [place] [address] Jul, [facility] [address] [facility] [id number] [address] [place] [address] Apr, [facility] [address] [facility] [id number] [address] [place] [address] Apr, Injury of right ankle, initi al encounter S99.911A and Encounter for immunization Z23 [place] [address] [facility] [id number] [address] [place] [address] Dec, [place] [address] [address] [place] [id number] [address] [place] [address] Nov, Pain in right ankle and join ts of right foot M25.571 ; Other chronic pain G89.29 and Post-traumatic arthritis of right ankle M19.171 [place] [address] [facility] [id number] [address] [place] [address] Oct, Arthritis M19.90 [place] [address] [facility] [id number] [address] [place] [address] Aug, Arthritis M19.90 [place] [address] [facility] [id number] [address] [place] [address] Aug, [place] [address] [facility] [id number] [address] [place] [address] Jul, [place] [address] [facility] [id number] [address] [place] [address] June, Arthropathy, unspecified M12 .9 [facility] [address] [facility] [id number] [address] [place] [address] May, Asthma J45.909 and Major dep ressive disorder, single episode F32.9 [facility] [address] [id number] [address] [place] [address] Mar, Closed fracture of shaft of right fibula, unspecified fracture morphology, initial encounter S82.401A [facility] [address] [facility] [id number] [address] [place] [address] Feb, [facility] [address] [facility] [id number] [address] [place] [address] Feb, [facility] [address] [facility] [id number] [address] [place] [address] Nov, [facility] [address] [facility] [id number] [address] [place] [address] Nov, Bipolar disorder F31.9 ; Enc ounter for immunization Z23 and Asthma J45.909 [facility] [address] [place] [id number] [address] [place] [address] Aug, [place] [address] [facility] [id number] [address] [place] [address] May, [facility] [address] [place] [id number] [address] [place] [address] Apr, [facility] [address] [facility] [id number] [address] [place] [address] Apr, [facility] [address] [facility] [id number] [address] [place] [address] Apr, URI (upper respiratory infec tion) J06.9 and Bipolar disorder F31.9 [facility] [address] [facility] [id number] [address] [place] [address] Feb, [facility] [address] [facility] [id number] [address] [place] [address] Feb, Asthma J45.909 and Alcoholis m F10.20 [facility] [address] [place] [id number] [address] [place] [address] Jan, [facility] [address] [facility] [id number] [address] [place] [address] Jan, [facility] [address] [facility] [id number] [address] [place] [address] Jan, [facility] [address] [facility] [id number] [address] [place] [address] Nov, Alcoholism F10.20 and Anxiet y F41.9 [facility] [address] [id number] [address] [place] [address] Jul, Anxiety 300.00 and Arthropat hy 716.90 [facility] [address] [facility] [id number] [address] [place] [address] Jul, [facility] [address] [place] [id number] [address] [place] [address] Jul, Anxiety state 300.00 [facility] [address] [facility] [id number] [address] [place] [address] May, [facility] [address] [facility] [id number] [address] [place] [phone] May, [facility] [address] [facility] [id number] [address] [place] [id number] Apr, [facility] [address] [facility] [id number] [address] [place] [address] Apr, [facility] [address] [facility] [id number] [address] [place] [address] Mar, [facility] [address] [facility] [id number] [address] [place] [address] Mar, [facility] [address] [facility] [id number] [address] [place] [phone] Feb, [facility] [address] [facility] [id number] [address] [place] [phone] Feb, [facility] [address] [id number] [address] [place] [address], [place] [address] Feb, [facility] [address] [id number] [address] [place] [address], [place] [address] Feb, [facility] [address] [id number] [address] [place] [address], [place] [address] Jan, [facility] [address] [id number] [address] [place] [address], [place] [address] Jan, [facility] [address] [id number] [address] [place] [address], [place] [address] Jan, [facility] [address] [id number] [address] [place] [address], [place] [address] Jan, [facility] [address] [id number] [address] [place] [address], [place] [address] Nov, [facility] [address] [id number] [address] [place] [address], [place] [address] Nov, [facility] [address] [id number] [address] [place] [address], [place] [address] Nov, [facility] [address] [id number] [address] [place] [address], [place] [address] Nov, [facility] [address] [id number] [address] [place] [address], [place] [address] Nov, [facility] [address] [id number] [address] [place] [address], [place] [address] Nov, [facility] [address] [id number] [address] [place] [address], [place] [address] Nov, [facility] [address] [id number] [address] [place] [address], [place] [address] Nov, [facility] [address] [id number] [address] [place] [address], [place] [address] Nov, [facility] [address] [id number] [address] [place] [address], [place] [address] Nov, [facility] [address] [id number] [address] [place] [address], [place] [address] 13 Nov, 2013 [facility] [address] [id number] [address] [place] [address], [place] [address] 07 Nov, 2013 [facility] [address] [id number] [address] [place] [address], [place] [address] 07 Nov, 2013 [facility] [address] [id number] [address] [place] [address], [place] [address] 30 Sep, 2013 [facility] [address] [id number] [address] [place] [address], [place] [address] 30 Sep, 2013 [facility] [address] [id number] [address] [place] [address], [place] [address] 26 Sep, 2013 [facility] [address] [id number] [address] [place] [address], [place] [address] 26 Sep, 2013 [facility] [address] [id number] [address] [place] [address], [place] [address] 08 Sep, 2013 [facility] [address] [id number] [address] [place] [address], [place] [address] 08 Sep, 2013 [facility] [address] [id number] [address] [place] [address], [place] [address] 04 Sep, 2013 [facility] [address] [id number] [address] [place] [address], [place] [address] 04 Sep, 2013 [facility] [address] [id number] [address] [place] [address], [place] [address] 04 Sep, 2013 [facility] [address] [id number] [address] [place] [address], [place] [address] 04 Sep, 2013 [facility] [address] [id number] [address] [place] [address], [place] [address] 04 Sep, 2013 [facility] [address] [id number] [address] [place] [address], [place] [address] 04 Sep, 2013 [facility] [address] [id number] [address] [place] [address], [place] [address] Sep, [facility] [address] [id number] [address] [place] [address], [place] [address] Sep, [facility] [address] [id number] [address] [place] [address], [place] [address] Sep, [facility] [address] [id number] [address] [place] [address], [place] [address] Sep, [facility] [address] [id number] [address] [place] [address], [place] [address] Sep, [facility] [address] [id number] [address] [place] [address], [place] [address] Sep, [facility] [address] [id number] [address] [place] [address], [place] [address] Sep, [facility] [address] [id number] [address] [place] [address], [place] [address] Sep, [facility] [address] [id number] [address] [place] [address], [place] [address] Aug, [facility] [address] [id number] [address] [place] [address], [place] [address] Aug, [facility] [address] [id number] [address] [place] [address], [place] [address] Aug, [facility] [address] [id number] [address] [place] [address], [place] [address] Aug, [facility] [address] [id number] [address] [place] [address], [place] [address] Jul, [facility] [address] [id number] [address] [place] [address], [place] [address] Jul, [facility] [address] [id number] [address] [place] [address], [place] [address] Jul, [facility] [address] [id number] [address] [place] [address], [place] [address] Jul, [facility] [address] [id number] [address] [place] [address], [place] [address] Jul, [facility] [address] [id number] [address] [place] [address], [place] [address] Jul, [facility] [address] [id number] [address] [place] [address], [place] [address] June, [facility] [address] [id number] [address] [place] [address], [place] [address] June, [facility] [address] [id number] [address] [place] [address], [place] [address] June, [facility] [address] [id number] [address] [place] [address], [place] [address] June, [facility] [address] [id number] [address] [place] [address], [place] [address] June, [facility] [address] [id number] [address] [place] [address], [place] [address] June, [facility] [address] [id number] [address] [place] [address], [place] [address] May, [facility] [address] [id number] [address] [place] [address], [place] [address] May, [facility] [address] [id number] [address] [place] [address], [place] [address] May, [facility] [address] [id number] [address] [place] [address], [place] [address] May, [facility] [address] [id number] [address] [place] [address], [place] [address] May, [facility] [address] [id number] [address] [place] [address], [place] [address] May, [facility] [address] [id number] [address] [place] [address], [place] [address] May, [facility] [address] [id number] [address] [place] [address], [place] [address] May, [facility] [address] [id number] [facility] [place] [address] May, [facility] [address] [id number] [address] [place] [address], [place] [address] May, [facility] [address] [id number] [address] [place] [address], [place] [address] Apr, [facility] [address] [id number] [address] [place] [address], [place] [address] Apr, [facility] [address] [id number] [address] [place] [address], [place] [address] Apr, [facility] [address] [id number] [address] [place] [address], [place] [address] Apr, [facility] [address] [id number] [address] [place] [address], [place] [address] Apr, [facility] [address] [id number] [address] [place] [address], [place] [address] Apr, [facility] [address] [id number] [address] [place] [address], [place] [address] Apr, [facility] [address] [id number] [address] [place] [address], [place] [address] Apr, [facility] [address] [id number] [address] [place] [address], [place] [address] Apr, [facility] [address] [id number] [address] [place] [address], [place] [address] Apr, [facility] [address] [id number] [address] [place] [address], [place] [address] Apr, [facility] [address] [id number] [address] [place] [address], [place] [address] Apr, [facility] [address] [id number] [address] [place] [address], [place] [address] Mar, [facility] [address] [id number] [address] [place] [address], [place] [address] Mar, [facility] [address] [id number] [address] [place] [address], [place] [address] Mar, [facility] [address] [id number] [address] [place] [address], [place] [address] Mar, [facility] [address] [id number] [address] [place] [address], [place] [address] Feb, [facility] [address] [id number] [address] [place] [address], [place] [address] Feb, [facility] [address] [id number] [address] [place] [address], [place] [address] Feb, [facility] [address] [id number] [address] [place] [address], [place] [address] Feb, [facility] [address] [id number] [address] [place] [address], [place] [address] Feb, [facility] [address] [id number] [address] [place] [address], [place] [address] Feb, [facility] [address] [id number] [address] [place] [address], [place] [address] Feb, [facility] [address] [id number] [address] [place] [address], [place] [address] Feb, [facility] [address] [id number] [address] [place] [address], [place] [address] Feb, [facility] [address] [id number] [address] [place] [address], [place] [address] Feb, [facility] [address] [id number] [address] [place] [address], [place] [address] Jan, [facility] [address] [id number] [address] [place] [address], [place] [address] Jan, [facility] [address] [id number] [address] [place] [address], [place] [address] Jan, [facility] [address] [id number] [address] [place] [address], [place] [address] Jan, [facility] [address] [id number] [address] [place] [address], [place] [address] Jan, [facility] [address] [id number] [address] [place] [address], [place] [address] Jan, [facility] [address] [id number] [address] [place] [address], [place] [address] Jan, [facility] [address] [id number] [address] [place] [address], [place] [address] Jan, [facility] [address] [id number] [address] [place] [address], [place] [address] Jan, [facility] [address] [id number] [address] [place] [address], [place] [address] Dec, [facility] [address] [id number] [address] [place] [address], [place] [address] Dec, [facility] [address] [id number] [address] [place] [address], [place] [address] Dec, [facility] [address] [id number] [address] [place] [address], [place] [address] Dec, [facility] [address] [id number] [address] [place] [address], [place] [address] Nov, [facility] [address] [id number] [address] [place] [address], [place] [address] Nov, [facility] [address] [id number] [address] [place] [address], [place] [address] Nov, [facility] [address] [id number] [address] [place] [address], [place] [address] Nov, [facility] [address] [id number] [address] [place] [address], [place] [address] Nov, [facility] [address] [id number] [address] [place] [address], [place] [address] Nov, [facility] [address] [id number] [address] [place] [address], [place] [address] Oct, [facility] [address] [id number] [address] [place] [address], [place] [address] Oct, [facility] [address] [id number] [address] [place] [address], [place] [address] Sep, [facility] [address] [id number] [address] [place] [address], [place] [address] Sep, [facility] [address] [id number] [address] [place] [address], [place] [address] Sep, [facility] [address] [id number] [address] [place] [address], [place] [address] Sep, [facility] [address] [id number] [address] [place] [address], [place] [address] Aug, [facility] [address] [id number] [address] [place] [address], [place] [address] Aug, [facility] [address] [id number] [address] [place] [address], [place] [address] Aug, [facility] [address] [id number] [address] [place] [address], [place] [address] Jul, [facility] [address] [id number] [address] [place] [address], [place] [address] Jul, [facility] [address] [id number] [address] [place] [address], [place] [address] Jul, [facility] [address] [id number] [address] [place] [address], [place] [address] Jul, [facility] [address] [id number] [address] [place] [address], [place] [address] June, [facility] [address] [id number] [address] [place] [address], [place] [address] June, [facility] [address] [id number] [address] [place] [address], [place] [address] 30 May, 2012 [facility] [address] [id number] [address] [place] [address], [place] [address] 03 May, 2012 [facility] [place] [address] [id number] [address] [place] [address], [place] [address] 29 Apr, 2012 [facility] [place] [address] [id number] [address] [place] [address], [place] [address] Apr, [facility] [place] [address] [id number] [address] [place] [address], [place] [address] 18 Mar, 2012 [facility] [place] [address] [id number] [address] [place] [address], [place] [address] Mar, [facility] [place] [address] [id number] [address] [place] [address], [place] [address] 31 Feb, 2012 [facility] [facility] [place] [address] [id number] [address] [place] [address], [place] [address] 24 Feb, 2012 [facility] [address] [id number] [address] [place] [address], [place] [address] 18 Feb, 2012 [facility] [place] [address] [id number] [address] [place] [address], [place] [phone] 17 Feb, 2012 [facility] [address] [id number] [address] [place] [address], [place] [address] 17 Feb, 2012 [facility] [place] [address] [id number] [address] [place] [address], [place] [address] 16 Feb, 2012 [facility] [address] [id number] [address] [place] [address], [place] [address] 16 Feb, 2012 [facility] [place] [address] [id number] [address] [place] [address], [place] [address] 14 Feb, 2012 [facility] [address] [id number] [address] [place] [address], [place] [address] 11 Feb, 2012 [facility] [place] [address] [id number] [address] [place] [address], [place] [address] Jan, [facility] [address] [id number] [address] [place] [address], [place] [address] Jan, [facility] [address] [id number] [address] [place] [address], [place] [address] Jan, [facility] [address] [id number] [address] [place] [address], [place] [address] Jan, [facility] [address] [id number] [address] [place] [address], [place] [address] Dec, [facility] [address] [id number] [address] [place] [address], [place] [address] Dec, [facility] [address] [id number] [address] [place] [address], [place] [address] Dec, [facility] [address] [id number] [address] [place] [address], [place] [address] Dec, [facility] [address] [id number] [address] [place] [address], [place] [address] Oct, [facility] [address] [id number] [address] [place] [address], [place] [address] Sep, [facility] [address] [id number] [address] [place] [address], [place] [address] Sep, [facility] [address] [id number] [address] [place] [address], [place] [address] Aug, [facility] [address] [id number] [address] [place] [address], [place] [address] Jul, [facility] [address] [id number] [address] [place] [address], [place] [address] June, [facility] [address] [id number] [address] [place] [address], [place] [address] June, [facility] [address] [id number] [address] [place] [address], [place] [address] May, [facility] [address] [id number] [address] [place] [phone] Apr, [facility] [address] [id number] [address] [place] [phone] Mar, [facility] [address] [id number] [address] [place] [phone] Mar, [facility] [address] [facility] [id number] [address] [place] [phone] Feb, [facility] [address] [facility] [id number] [address] [place] [phone] Dec, [facility] [address] [facility] [id number] [address] [place] [phone] Nov, [facility] [address] [facility] [id number] [address] [place] [phone] Sep, [facility] [address] [facility] [id number] [address] [place] [phone] Aug, IMMUNIZATIONS No Known Immunizations SOCIAL HISTORY Never Assessed REASON FOR VISIT PLAN OF CARE VITAL SIGNS MEDICATIONS Unknown Medications RESULTS Name Result Date Reference Range PAP SMEAR 2012-02-24 [facility] CYT[facility] REPORT FOOTNOTE PAP RESULT PROCEDURES No Known procedures INSTRUCTIONS MEDICATIONS ADMINISTERED No Known Medications MEDICAL (GENERAL) HISTORY Type Description Date Medical History asthma Medical History headache Medical History chronic pain-low back with spasms Medical History anxiety Medical History depression Hospitalization History childbirth x 4
--- OUTSIDE RECORDS SUMMARY | 2019-07-02 15:41 | XMS REPORT ---
Author Author Madina LOZOYA Organization [facility] Address [address] [place] [address] Care Team Providers Care Mobile Phone Salesperson Name Role Phone HUMA LOZOYA Unavailable PROBLEMS Type Condition ICD9-CM Code HTM28-CQ Code Onset Dates Condition S tatus SNOMED Code Problem Asthma J45.909 Active 963848758 Problem Alcoholism F10.20 Active 1622118 Problem Arthritis M19.90 Active 7075466 Problem Other chronic pain G89.29 Active 8 7959695 Problem Bipolar disorder F31.9 Active 137 98946 Problem Closed fracture of shaft of right fibula, unspecified fracture morphology, initial encounter S82.401A Active 33526097 Problem Major depressive disorder, single episode F32.9 Active 50964073 Problem Arthropathy, unspecified M12.9 Activ e [id number] ALLERGIES No Information ENCOUNTERS Encounter Location Date Diagnosis [place] [address] [facility] [id number] [address] [place] [address] May, [facility] [address] [place] [id number] [place] [address] 6631 24001 Apr, [facility] [address] [place] [address] [id number] [place] [address] 6671 24001 Apr, Cough R05 and Hyperinflation of lungs R09.89 [facility] [address] [facility] [id number] [address] [place] [address] Dec, Arthritis M19.90 ; Alcoholis m F10.20 ; Encounter for immunization Z23 and Breast cancer screening by mammogram Z12.31 [facility] [address] [facility] [id number] [address] [place] [address] Sep, [place] [address] [facility] [id number] [address] [place] [address] Sep, Arthropathy of right ankle M 19.071 [facility] [address] [id number] [address] [place] [address] Aug, Pain in right ankle and join ts of right foot M25.571 and Other chronic pain G89.29 [facility] [address] [id number] [address] [place] [address] Jul, [facility] [address] [facility] [id number] [address] [place] [address] Apr, [facility] [address] [id number] [address] [place] [address] Apr, Injury of right ankle, initi al encounter S99.911A and Encounter for immunization Z23 [facility] [address] [facility] [id number] [address] [place] [address] Dec, [place] [address] [facility] [id number] [address] [place] [address] Nov, Pain in right ankle and join ts of right foot M25.571 ; Other chronic pain G89.29 and Post-traumatic arthritis of right ankle M19.171 [place] [address] [facility] [id number] [address] [place] [address] Oct, Arthritis M19.90 [place] [address] [facility] [id number] [address] [place] [address] Aug, Arthritis M19.90 [place] [address] [facility] [id number] [address] [place] [address] Aug, [place] [address] [id number] [address] [place] [address] Jul, [place] [address] [facility] [id number] [address] [place] [address] June, Arthropathy, unspecified M12 .9 [facility] [address] [facility] [id number] [address] [place] [address] May, Asthma J45.909 and Major dep ressive disorder, single episode F32.9 [facility] [address] [id number] [address] [place] [address] Mar, Closed fracture of shaft of right fibula, unspecified fracture morphology, initial encounter S82.401A [facility] [address] [id number] [address] [place] [address] Feb, [facility] [address] [facility] [id number] [address] [place] [address] Feb, [facility] [address] [id number] [address] [place] [address] Nov, [facility] [address] [facility] [id number] [address] [place] [address] Nov, Bipolar disorder F31.9 ; Enc ounter for immunization Z23 and Asthma J45.909 [facility] [address] [facility] [id number] [address] [place] [address] Aug, [facility] [address] [facility] [id number] [address] [place] [address] May, [facility] [address] [facility] [id number] [address] [place] [address] Apr, [facility] [address] [facility] [id number] [address] [place] [address] Apr, [facility] [address] [facility] [id number] [address] [place] [address] Apr, URI (upper respiratory infec tion) J06.9 and Bipolar disorder F31.9 [facility] [address] [facility] [id number] [address] [place] [address] Feb, [facility] [address] [facility] [id number] [address] [place] [address] Feb, Asthma J45.909 and Alcoholis m F10.20 [facility] [address] [facility] [id number] [address] [place] [address] Jan, [facility] [address] [facility] [id number] [address] [place] [address] Jan, [facility] [address] [facility] [id number] [address] [place] [address] Jan, [facility] [address] [facility] [id number] [address] [place] [address] Nov, Alcoholism F10.20 and Anxiet y F41.9 [facility] [address] [id number] [address] [place] [address] Jul, Anxiety 300.00 and Arthropat hy 716.90 [facility] [address] [facility] [id number] [address] [place] [address] Jul, [facility] [address] [facility] [id number] [address] [place] [address] Jul, Anxiety state 300.00 [facility] [address] [id number] [address] [place] [address] May, [facility] [address] [facility] [id number] [address] [place] [address] May, [facility] [address] [facility] [id number] [address] [place] [address] Apr, [facility] [address] [facility] [id number] [address] [place] [address] Apr, [facility] [address] [facility] [id number] [address] [place] [address] Mar, [facility] [address] [facility] [id number] [address] [place] [address] Mar, [facility] [address] [facility] [id number] [address] [place] [phone] Feb, [facility] [address] [facility] [id number] [address] [place] [address] Feb, [facility] [address] [facility] [id number] [address] [place] [address] Feb, [facility] [address] [id number] [address] [place] [address], [place] [address] Feb, [facility] [address] [id number] [address] [place] [address], [place] [address] Jan, [facility] [address] [id number] [address] [place] [address], [place] [address] Jan, [facility] [address] [id number] [address] [place] [address], [place] [address] Jan, [facility] [address] [id number] [address] [place] [address], [place] [address] Jan, [facility] [address] [id number] [address] [place] [address], [place] [address] Nov, [facility] [address] [id number] [address] [place] [address], [place] [address] Nov, [facility] [address] [id number] [address] [place] [address], [place] [address] Nov, [facility] [address] [id number] [address] [place] [address], [place] [address] Nov, [facility] [address] [id number] [address] [place] [address], [place] [address] Nov, [facility] [address] [id number] [address] [place] [address], [place] [address] Nov, [facility] [address] [id number] [address] [place] [address], [place] [address] Nov, [facility] [address] [id number] [address] [place] [address], [place] [address] Nov, [facility] [address] [id number] [address] [place] [address], [place] [address] Nov, [facility] [address] [id number] [address] [place] [address], [place] [address] Nov, [facility] [address] [id number] [address] [place] [address], [place] [address] 13 Nov, 2013 [facility] [address] [id number] [address] [place] [address], [place] [address] 07 Nov, 2013 [facility] [address] [id number] [address] [place] [address], [place] [address] 07 Nov, 2013 [facility] [address] [id number] [address] [place] [address], [place] [address] 30 Sep, 2013 [facility] [address] [id number] [address] [place] [address], [place] [address] 30 Sep, 2013 [facility] [address] [id number] [address] [place] [address], [place] [address] 26 Sep, 2013 [facility] [address] [id number] [address] [place] [address], [place] [address] 26 Sep, 2013 [facility] [address] [id number] [address] [place] [address], [place] [address] 08 Sep, 2013 [facility] [address] [id number] [address] [place] [address], [place] [address] 08 Sep, 2013 [facility] [address] [id number] [address] [place] [address], [place] [address] 04 Sep, 2013 [facility] [address] [id number] [address] [place] [address], [place] [address] 04 Sep, 2013 [facility] [address] [id number] [address] [place] [address], [place] [address] 04 Sep, 2013 [facility] [address] [id number] [address] [place] [address], [place] [address] 04 Sep, 2013 [facility] [address] [id number] [address] [place] [address], [place] [address] 04 Sep, 2013 [facility] [address] [id number] [address] [place] [address], [place] [address] 04 Oct, 2013 [facility] [address] [id number] [address] [place] [address], [place] [address] Sep, [facility] [address] [id number] [facility] [place] [address] Sep, [facility] [address] [id number] [facility] [place] [address] Sep, [facility] [address] [id number] [facility] [place] [address] Sep, [facility] [address] [id number] [address] [place] [address], [place] [address] Sep, [facility] [address] [id number] [address] [place] [address], [place] [address] Sep, [facility] [address] [id number] [address] [place] [address], [place] [address] Sep, [facility] [address] [id number] [address] [place] [address], [place] [address] Sep, [facility] [address] [id number] [address] [place] [address], [place] [address] Aug, [facility] [address] [id number] [address] [place] [address], [place] [address] Aug, [facility] [address] [id number] [address] [place] [address], [place] [address] Aug, [facility] [address] [id number] [address] [place] [address], [place] [address] Aug, [facility] [address] [id number] [address] [place] [address], [place] [address] Jul, [facility] [address] [id number] [address] [place] [address], [place] [address] Jul, [facility] [address] [id number] [address] [place] [address], [place] [address] Jul, [facility] [address] [id number] [address] [place] [address], [place] [address] Jul, [facility] [address] [id number] [address] [place] [address], [place] [address] Jul, [facility] [address] [id number] [address] [place] [address], [place] [address] Jul, [facility] [address] [id number] [address] [place] [address], [place] [address] June, [facility] [address] [id number] [address] [place] [address], [place] [address] June, [facility] [address] [id number] [address] [place] [address], [place] [address] June, [facility] [address] [id number] [address] [place] [address], [place] [address] June, [facility] [address] [id number] [address] [place] [address], [place] [address] June, [facility] [address] [id number] [address] [place] [address], [place] [address] June, [facility] [address] [id number] [address] [place] [address], [place] [address] May, [facility] [address] [id number] [address] [place] [address], [place] [address] May, [facility] [address] [id number] [address] [place] [address], [place] [address] May, [facility] [address] [id number] [address] [place] [address], [place] [address] May, [facility] [address] [id number] [address] [place] [address], [place] [address] May, [facility] [address] [id number] [address] [place] [address], [place] [address] May, [facility] [address] [id number] [address] [place] [address], [place] [address] May, [facility] [address] [id number] [address] [place] [address], [place] [address] May, [facility] [address] [id number] [facility] [place] [address] May, [facility] [address] [id number] [facility] [place] [address] May, [facility] [address] [id number] [facility] [place] [address] Apr, [facility] [address] [id number] [facility] [place] [address] Apr, [facility] [address] [id number] [facility] [place] [address] 10 Apr, 2013 [facility] [address] [id number] [address] [place] [address], [place] [address] 10 Apr, 2013 [facility] [address] [id number] [address] [place] [address], [place] [address] Apr, [facility] [address] [id number] [address] [place] [address], [place] [address] Apr, [facility] [address] [id number] [address] [place] [address], [place] [address] Apr, [facility] [address] [id number] [address] [place] [address], [place] [address] Apr, [facility] [address] [id number] [address] [place] [address], [place] [address] Apr, [facility] [address] [id number] [address] [place] [address], [place] [address] Apr, [facility] [address] [id number] [address] [place] [address], [place] [address] Apr, [facility] [address] [id number] [address] [place] [address], [place] [address] Apr, [facility] [address] [id number] [address] [place] [address], [place] [address] Mar, [facility] [address] [id number] [address] [place] [address], [place] [address] Mar, [facility] [address] [id number] [address] [place] [address], [place] [address] Mar, [facility] [address] [id number] [address] [place] [address], [place] [address] Mar, [facility] [address] [id number] [address] [place] [address], [place] [address] Feb, [facility] [address] [id number] [address] [place] [address], [place] [address] Feb, [facility] [address] [id number] [address] [place] [address], [place] [address] Feb, [facility] [address] [id number] [address] [place] [address], [place] [address] Feb, [facility] [address] [id number] [address] [place] [address], [place] [address] Feb, [facility] [address] [id number] [address] [place] [address], [place] [address] Feb, [facility] [address] [id number] [address] [place] [address], [place] [address] Feb, [facility] [address] [id number] [address] [place] [address], [place] [address] Feb, [facility] [address] [id number] [address] [place] [address], [place] [address] Feb, [facility] [address] [id number] [address] [place] [address], [place] [address] Feb, [facility] [address] [id number] [address] [place] [address], [place] [address] Jan, [facility] [address] [id number] [address] [place] [address], [place] [address] Jan, [facility] [address] [id number] [address] [place] [address], [place] [address] Jan, [facility] [address] [id number] [address] [place] [address], [place] [address] Jan, [facility] [address] [id number] [address] [place] [address], [place] [address] Jan, [facility] [address] [id number] [address] [place] [address], [place] [address] Jan, [facility] [address] [id number] [address] [place] [address], [place] [address] Jan, [facility] [address] [id number] [address] [place] [address], [place] [address] Jan, [facility] [address] [id number] [address] [place] [address], [place] [address] Jan, [facility] [address] [id number] [address] [place] [address], [place] [address] Dec, [facility] [address] [id number] [address] [place] [address], [place] [address] Dec, [facility] [address] [id number] [address] [place] [address], [place] [address] Dec, [facility] [address] [id number] [address] [place] [address], [place] [address] Dec, [facility] [address] [id number] [address] [place] [address], [place] [address] Nov, [facility] [address] [id number] [address] [place] [address], [place] [address] Nov, [facility] [address] [id number] [address] [place] [address], [place] [address] Nov, [facility] [address] [id number] [address] [place] [address], [place] [address] Nov, [facility] [address] [id number] [address] [place] [address], [place] [address] Nov, [facility] [address] [id number] [address] [place] [address], [place] [address] Nov, [facility] [address] [id number] [address] [place] [address], [place] [address] Oct, [facility] [address] [id number] [address] [place] [address], [place] [address] Oct, [facility] [address] [id number] [address] [place] [address], [place] [address] Sep, [facility] [address] [id number] [address] [place] [address], [place] [address] Sep, [facility] [address] [id number] [address] [place] [address], [place] [address] Sep, [facility] [address] [id number] [address] [place] [address], [place] [address] Sep, [facility] [address] [id number] [address] [place] [address], [place] [address] Aug, [facility] [address] [id number] [address] [place] [address], [place] [address] Aug, [facility] [address] [id number] [address] [place] [address], [place] [address] Aug, [facility] [address] [id number] [address] [place] [address], [place] [address] Jul, [facility] [address] [id number] [address] [place] [address], [place] [address] Jul, [facility] [address] [id number] [address] [place] [address], [place] [address] Jul, [facility] [address] [id number] [address] [place] [address], [place] [address] Jul, [facility] [address] [id number] [address] [place] [address], [place] [address] June, [facility] [address] [id number] [address] [place] [address], [place] [address] June, [facility] [address] [id number] [address] [place] [address], [place] [address] 30 May, 2012 [facility] [address] [id number] [address] [place] [address], [place] [address] 03 May, 2012 [facility] [address] [id number] [address] [place] [address], [place] [address] 29 Apr, 2012 [facility] [address] [id number] [address] [place] [address], [place] [address] Apr, [facility] [address] [id number] [address] [place] [address], [place] [address] 18 Mar, 2012 [facility] [address] [id number] [address] [place] [address], [place] [address] Mar, [facility] [address] [id number] [address] [place] [address], [place] [address] 31 Feb, 2012 [facility] [address] [id number] [address] [place] [address], [place] [address] 24 Feb, 2012 [facility] [address] [id number] [address] [place] [address], [place] [address] 18 Feb, 2012 [facility] [address] [id number] [address] [place] [address], [place] [address] 17 Feb, 2012 [facility] [address] [id number] [address] [place] [address], [place] [address] 17 Feb, 2012 [facility] [address] [id number] [address] [place] [address], [place] [address] 16 Feb, 2012 [facility] [address] [id number] [address] [place] [address], [place] [address] 16 Feb, 2012 [facility] [address] [id number] [address] [place] [address], [place] [address] 14 Feb, 2012 [facility] [address] [id number] [address] [place] [address], [place] [address] 11 Feb, 2012 [facility] [address] [id number] [address] [place] [address], [place] [address] Jan, [facility] [address] [id number] [address] [place] [address], [place] [address] Jan, [facility] [address] [id number] [address] [place] [address], [place] [address] Jan, [facility] [address] [id number] [address] [place] [address], [place] [address] Jan, [facility] [address] [id number] [address] [place] [address], [place] [address] Dec, [facility] [address] [id number] [address] [place] [address], [place] [address] Dec, [facility] [address] [id number] [address] [place] [address], [place] [address] Dec, [facility] [address] [id number] [address] [place] [address], [place] [address] Dec, [facility] [address] [id number] [address] [place] [address], [place] [address] Oct, [facility] [address] [id number] [address] [place] [address], [place] [address] Sep, [facility] [address] [address] [id number] [address] [place] [address], [place] [id number] Sep, [facility] [address] [id number] [address] [place] [address], [place] [address] Aug, [facility] [address] [id number] [address] [place] [address], [place] [id number] Jul, [facility] [address] [id number] [address] [place] [address], [place] [id number] June, [facility] [address] [id number] [address] [place] [address], [place] [address] June, [facility] [address] [id number] [address] [place] [address], [place] [address] May, [facility] [address] [id number] [address] [place] [phone] Apr, [facility] [address] [id number] [address] [place] [phone] Mar, [facility] [address] [facility] [id number] [address] [place] [phone] Mar, [facility] [address] [facility] [id number] [address] [place] [phone] Feb, [facility] [address] [facility] [id number] [address] [place] [phone] Dec, [facility] [address] [facility] [id number] [address] [place] [id number] Nov, [facility] [address] [facility] [id number] [address] [place] [phone] Sep, [facility] [address] [facility] [id number] [address] [place] [id number] Aug, IMMUNIZATIONS No Known Immunizations SOCIAL HISTORY [...]
--- OUTSIDE RECORDS SUMMARY | 2019-07-02 15:41 | XMS REPORT ---
Author Author Madina LOZOYA Organization [facility] Address [address] [place] [address] Care Team Providers Care Process Checker Name Role Phone HUMA LOZOYA Unavailable PROBLEMS Type Condition ICD9-CM Code HLE61-PC Code Onset Dates Condition S tatus SNOMED Code Problem Asthma J45.909 Active 162891467 Problem Alcoholism F10.20 Active 6656000 Problem Arthritis M19.90 Active 0203673 Problem Other chronic pain G89.29 Active 8 4996631 Problem Bipolar disorder F31.9 Active 137 14201 Problem Closed fracture of shaft of right fibula, unspecified fracture morphology, initial encounter S82.401A Active 92162569 Problem Major depressive disorder, single episode F32.9 Active 37681643 Problem Arthropathy, unspecified M12.9 Activ e [id number] ALLERGIES No Information ENCOUNTERS Encounter Location Date Diagnosis [place] [address] [facility] [id number] [address] [place] [address] May, [facility] [id number] [place] [address] 6665 [id number] Apr, [facility] [id number] [place] [address] [phone] Apr, Cough R05 and Hyperinflation of lungs R09.89 [facility] [address] [facility] [id number] [address] [place] [address] Dec, Arthritis M19.90 ; Alcoholis m F10.20 ; Encounter for immunization Z23 and Breast cancer screening by mammogram Z12.31 [facility] [address] [facility] [id number] [address] [place] [address] Sep, [place] [address] [facility] [id number] [address] [place] [address] Sep, Arthropathy of right ankle M 19.071 [facility] [address] [id number] [address] [place] [address] Aug, Pain in right ankle and join ts of right foot M25.571 and Other chronic pain G89.29 [facility] [address] [id number] [address] [place] [address] Jul, [facility] [address] [facility] [id number] [address] [place] [address] Apr, [facility] [address] [id number] [address] [place] [address] Apr, Injury of right ankle, initi al encounter S99.911A and Encounter for immunization Z23 [facility] [address] [facility] [id number] [address] [place] [address] Dec, [place] [address] [facility] [id number] [address] [place] [address] Nov, Pain in right ankle and join ts of right foot M25.571 ; Other chronic pain G89.29 and Post-traumatic arthritis of right ankle M19.171 [place] [address] [facility] [id number] [address] [place] [address] Oct, Arthritis M19.90 [place] [address] [facility] [id number] [address] [place] [address] Aug, Arthritis M19.90 [place] [address] [facility] [id number] [address] [place] [address] Aug, [place] [address] [id number] [address] [place] [address] Jul, [place] [address] [facility] [id number] [address] [place] [address] June, Arthropathy, unspecified M12 .9 [facility] [address] [facility] [id number] [address] [place] [address] May, Asthma J45.909 and Major dep ressive disorder, single episode F32.9 [facility] [address] [id number] [address] [place] [address] Mar, Closed fracture of shaft of right fibula, unspecified fracture morphology, initial encounter S82.401A [facility] [address] [id number] [address] [place] [address] Feb, [facility] [address] [facility] [id number] [address] [place] [address] Feb, [facility] [address] [id number] [address] [place] [address] Nov, [facility] [address] [facility] [id number] [address] [place] [address] Nov, Bipolar disorder F31.9 ; Enc ounter for immunization Z23 and Asthma J45.909 [facility] [address] [facility] [id number] [address] [place] [address] Aug, [facility] [address] [facility] [id number] [address] [place] [address] May, [facility] [address] [facility] [id number] [address] [place] [address] Apr, [facility] [address] [facility] [id number] [address] [place] [address] Apr, [facility] [address] [facility] [id number] [address] [place] [address] Apr, URI (upper respiratory infec tion) J06.9 and Bipolar disorder F31.9 [facility] [address] [facility] [id number] [address] [place] [address] Feb, [facility] [address] [facility] [id number] [address] [place] [address] Feb, Asthma J45.909 and Alcoholis m F10.20 [facility] [address] [facility] [id number] [address] [place] [address] Jan, [facility] [address] [facility] [id number] [address] [place] [address] Jan, [facility] [address] [facility] [id number] [address] [place] [address] Jan, [facility] [address] [facility] [id number] [address] [place] [address] Nov, Alcoholism F10.20 and Anxiet y F41.9 [facility] [address] [id number] [address] [place] [address] Jul, Anxiety 300.00 and Arthropat hy 716.90 [facility] [address] [facility] [id number] [address] [place] [address] Jul, [facility] [address] [facility] [id number] [address] [place] [address] Jul, Anxiety state 300.00 [facility] [address] [id number] [address] [place] [address] May, [facility] [address] [facility] [id number] [address] [place] [address] May, [facility] [address] [facility] [id number] [address] [place] [address] Apr, [facility] [address] [facility] [id number] [address] [place] [address] Apr, [facility] [address] [facility] [id number] [address] [place] [address] Mar, [facility] [address] [facility] [id number] [address] [place] [address] Mar, [facility] [address] [facility] [id number] [address] [place] [address] Feb, [facility] [address] [facility] [id number] [address] [place] [address] Feb, [facility] [address] [facility] [id number] [address] [place] [address] Feb, [facility] [address] [id number] [address] [place] [address], [place] [address] Feb, [facility] [address] [id number] [address] [place] [address], [place] [address] Jan, [facility] [address] [id number] [address] [place] [address], [place] [address] Jan, [facility] [address] [id number] [address] [place] [address], [place] [address] Jan, [facility] [address] [id number] [address] [place] [address], [place] [address] Jan, [facility] [address] [id number] [address] [place] [address], [place] [address] Nov, [facility] [address] [id number] [address] [place] [address], [place] [address] Nov, [facility] [address] [id number] [address] [place] [address], [place] [address] Nov, [facility] [address] [id number] [address] [place] [address], [place] [address] Nov, [facility] [address] [id number] [address] [place] [address], [place] [address] Nov, [facility] [address] [id number] [address] [place] [address], [place] [address] Nov, [facility] [address] [id number] [address] [place] [address], [place] [address] Nov, [facility] [address] [id number] [address] [place] [address], [place] [address] Nov, [facility] [address] [id number] [address] [place] [address], [place] [address] Nov, [facility] [address] [id number] [address] [place] [address], [place] [address] Nov, [facility] [address] [id number] [address] [place] [address], [place] [address] 13 Nov, 2013 [facility] [address] [id number] [address] [place] [address], [place] [address] 07 Nov, 2013 [facility] [address] [id number] [address] [place] [address], [place] [address] 07 Nov, 2013 [facility] [address] [id number] [address] [place] [address], [place] [address] 30 Sep, 2013 [facility] [address] [id number] [address] [place] [address], [place] [address] 30 Sep, 2013 [facility] [address] [id number] [address] [place] [address], [place] [address] 26 Sep, 2013 [facility] [address] [id number] [address] [place] [address], [place] [address] 26 Sep, 2013 [facility] [address] [id number] [address] [place] [address], [place] [address] 08 Sep, 2013 [facility] [address] [id number] [address] [place] [address], [place] [address] 08 Sep, 2013 [facility] [address] [id number] [address] [place] [address], [place] [address] 04 Sep, 2013 [facility] [address] [id number] [address] [place] [address], [place] [address] 04 Sep, 2013 [facility] [address] [id number] [address] [place] [address], [place] [address] 04 Sep, 2013 [facility] [address] [id number] [address] [place] [address], [place] [address] 04 Sep, 2013 [facility] [address] [id number] [address] [place] [address], [place] [address] 04 Sep, 2013 [facility] [address] [id number] [address] [place] [address], [place] [address] 04 Oct, 2013 [facility] [address] [id number] [address] [place] [address], [place] [address] Sep, [facility] [address] [id number] [facility] [place] [address] Sep, [facility] [address] [id number] [facility] [place] [address] Sep, [facility] [address] [id number] [facility] [place] [address] Sep, [facility] [address] [id number] [address] [place] [address], [place] [address] Sep, [facility] [address] [id number] [address] [place] [address], [place] [address] Sep, [facility] [address] [id number] [address] [place] [address], [place] [address] Sep, [facility] [address] [id number] [address] [place] [address], [place] [address] Sep, [facility] [address] [id number] [address] [place] [address], [place] [address] Aug, [facility] [address] [id number] [address] [place] [address], [place] [address] Aug, [facility] [address] [id number] [address] [place] [address], [place] [address] Aug, [facility] [address] [id number] [address] [place] [address], [place] [address] Aug, [facility] [address] [id number] [address] [place] [address], [place] [address] Jul, [facility] [address] [id number] [address] [place] [address], [place] [address] Jul, [facility] [address] [id number] [address] [place] [address], [place] [address] Jul, [facility] [address] [id number] [address] [place] [address], [place] [address] Jul, [facility] [address] [id number] [address] [place] [address], [place] [address] Jul, [facility] [address] [id number] [address] [place] [address], [place] [address] Jul, [facility] [address] [id number] [address] [place] [address], [place] [address] June, [facility] [address] [id number] [address] [place] [address], [place] [address] June, [facility] [address] [id number] [address] [place] [address], [place] [address] June, [facility] [address] [id number] [address] [place] [address], [place] [address] June, [facility] [address] [id number] [address] [place] [address], [place] [address] June, [facility] [address] [id number] [address] [place] [address], [place] [address] June, [facility] [address] [id number] [address] [place] [address], [place] [address] May, [facility] [address] [id number] [address] [place] [address], [place] [address] May, [facility] [address] [id number] [address] [place] [address], [place] [address] May, [facility] [address] [id number] [address] [place] [address], [place] [address] May, [facility] [address] [id number] [address] [place] [address], [place] [address] May, [facility] [address] [id number] [address] [place] [address], [place] [address] May, [facility] [address] [id number] [address] [place] [address], [place] [address] May, [facility] [address] [id number] [address] [place] [address], [place] [address] May, [facility] [address] [id number] [facility] [place] [address] May, [facility] [address] [id number] [facility] [place] [address] May, [facility] [address] [id number] [facility] [place] [address] Apr, [facility] [address] [id number] [facility] [place] [address] Apr, [facility] [address] [id number] [facility] [place] [address] 10 Apr, 2013 [facility] [address] [id number] [address] [place] [address], [place] [address] 10 Apr, 2013 [facility] [address] [id number] [address] [place] [address], [place] [address] Apr, [facility] [address] [id number] [address] [place] [address], [place] [address] Apr, [facility] [address] [id number] [address] [place] [address], [place] [address] Apr, [facility] [address] [id number] [address] [place] [address], [place] [address] Apr, [facility] [address] [id number] [address] [place] [address], [place] [address] Apr, [facility] [address] [id number] [address] [place] [address], [place] [address] Apr, [facility] [address] [id number] [address] [place] [address], [place] [address] Apr, [facility] [address] [id number] [address] [place] [address], [place] [address] Apr, [facility] [address] [id number] [address] [place] [address], [place] [address] Mar, [facility] [address] [id number] [address] [place] [address], [place] [address] Mar, [facility] [address] [id number] [address] [place] [address], [place] [address] Mar, [facility] [address] [id number] [address] [place] [address], [place] [address] Mar, [facility] [address] [id number] [address] [place] [address], [place] [address] Feb, [facility] [address] [id number] [address] [place] [address], [place] [address] Feb, [facility] [address] [id number] [address] [place] [address], [place] [address] Feb, [facility] [address] [id number] [address] [place] [address], [place] [address] Feb, [facility] [address] [id number] [address] [place] [address], [place] [address] Feb, [facility] [address] [id number] [address] [place] [address], [place] [address] Feb, [facility] [address] [id number] [address] [place] [address], [place] [address] Feb, [facility] [address] [id number] [address] [place] [address], [place] [address] Feb, [facility] [address] [id number] [address] [place] [address], [place] [address] Feb, [facility] [address] [id number] [address] [place] [address], [place] [address] Feb, [facility] [address] [id number] [address] [place] [address], [place] [address] Jan, [facility] [address] [id number] [address] [place] [address], [place] [address] Jan, [facility] [address] [id number] [address] [place] [address], [place] [address] Jan, [facility] [address] [id number] [address] [place] [address], [place] [address] Jan, [facility] [address] [id number] [address] [place] [address], [place] [address] Jan, [facility] [address] [id number] [address] [place] [address], [place] [address] Jan, [facility] [address] [id number] [address] [place] [address], [place] [address] Jan, [facility] [address] [id number] [address] [place] [address], [place] [address] Jan, [facility] [address] [id number] [address] [place] [address], [place] [address] Jan, [facility] [address] [id number] [address] [place] [address], [place] [address] Dec, [facility] [address] [id number] [address] [place] [address], [place] [address] Dec, [facility] [address] [id number] [address] [place] [address], [place] [address] Dec, [facility] [address] [id number] [address] [place] [address], [place] [address] Dec, [facility] [address] [id number] [address] [place] [address], [place] [address] Nov, [facility] [address] [id number] [address] [place] [address], [place] [address] Nov, [facility] [address] [id number] [address] [place] [address], [place] [address] Nov, [facility] [address] [id number] [address] [place] [address], [place] [address] Nov, [facility] [address] [id number] [address] [place] [address], [place] [address] Nov, [facility] [address] [id number] [address] [place] [address], [place] [address] Nov, [facility] [address] [id number] [address] [place] [address], [place] [address] Oct, [facility] [address] [id number] [address] [place] [address], [place] [address] Oct, [facility] [address] [id number] [address] [place] [address], [place] [address] Sep, [facility] [address] [id number] [address] [place] [address], [place] [address] Sep, [facility] [address] [id number] [address] [place] [address], [place] [address] Sep, [facility] [address] [id number] [address] [place] [address], [place] [address] Sep, [facility] [address] [id number] [address] [place] [address], [place] [address] Aug, [facility] [address] [id number] [address] [place] [address], [place] [address] Aug, [facility] [address] [id number] [address] [place] [address], [place] [address] Aug, [facility] [address] [id number] [address] [place] [address], [place] [address] Jul, [facility] [address] [id number] [address] [place] [address], [place] [address] Jul, [facility] [address] [id number] [address] [place] [address], [place] [address] Jul, [facility] [address] [id number] [address] [place] [address], [place] [address] Jul, [facility] [address] [id number] [address] [place] [address], [place] [address] June, [facility] [address] [id number] [address] [place] [address], [place] [address] June, [facility] [address] [id number] [address] [place] [address], [place] [address] 30 May, 2012 [facility] [address] [id number] [address] [place] [address], [place] [address] 03 May, 2012 [facility] [address] [id number] [address] [place] [address], [place] [address] 29 Apr, 2012 [facility] [address] [id number] [address] [place] [address], [place] [address] Apr, [facility] [address] [id number] [address] [place] [address], [place] [address] 18 Mar, 2012 [facility] [address] [id number] [address] [place] [address], [place] [address] Mar, [facility] [address] [id number] [address] [place] [address], [place] [address] 31 Feb, 2012 [facility] [address] [id number] [address] [place] [address], [place] [address] 24 Feb, 2012 [facility] [address] [id number] [address] [place] [address], [place] [address] 18 Feb, 2012 [facility] [address] [id number] [address] [place] [address], [place] [address] 17 Feb, 2012 [facility] [address] [id number] [address] [place] [address], [place] [address] 17 Feb, 2012 [facility] [address] [id number] [address] [place] [address], [place] [address] 16 Feb, 2012 [facility] [address] [id number] [address] [place] [address], [place] [address] 16 Feb, 2012 [facility] [address] [id number] [address] [place] [address], [place] [address] 14 Feb, 2012 [facility] [address] [id number] [address] [place] [address], [place] [address] 11 Feb, 2012 [facility] [address] [id number] [address] [place] [address], [place] [address] Jan, [facility] [address] [id number] [address] [place] [address], [place] [address] Jan, [facility] [address] [id number] [address] [place] [address], [place] [address] Jan, [facility] [address] [id number] [address] [place] [address], [place] [address] Jan, [facility] [address] [id number] [address] [place] [address], [place] [address] Dec, [facility] [address] [id number] [address] [place] [address], [place] [address] Dec, [facility] [address] [id number] [address] [place] [address], [place] [id number] Dec, [facility] [address] [id number] [address] [place] [address], [place] [address] Dec, [facility] [address] [id number] [address] [place] [address], [place] [id number] Oct, [facility] [address] [id number] [address] [place] [address], [place] [address] Sep, [facility] [address] [id number] [address] [place] [address], [place] [phone] Sep, [facility] [address] [id number] [address] [place] [address], [place] [address] Aug, [facility] [address] [id number] [address] [place] [address], [place] [address] Jul, [facility] [address] [id number] [address] [place] [address], [place] [address] June, [facility] [address] [id number] [address] [place] [address], [place] [address] June, [facility] [address] [id number] [address] [place] [address], [place] [address] May, [facility] [address] [id number] [address] [place] [phone] Apr, [facility] [address] [facility] [id number] [address] [place] [phone] Mar, [facility] [address] [id number] [address] [place] [phone] Mar, [facility] [address] [facility] [id number] [address] [place] [phone] Feb, [facility] [address] [facility] [id number] [address] [place] [phone] Dec, [facility] [address] [facility] [id number] [address] [place] [id number] Nov, [facility] [address] [facility] [id number] [address] [place] [phone] Sep, [facility] [address] [facility] [id number] [address] [place] [phone] Aug, IMMUNIZATIONS No Known Immunizations SOCIAL HISTORY Never Assessed REASON FOR VISIT PLAN OF CARE VITAL SIGNS MEDICATIONS Unknown Medications RESULTS No Results PROCEDURES Procedure Date Ordered Result Body Site MAMMOGRAM, SCREENING Feb 15, 2013 INSTRUCTIONS MEDICATIONS ADMINISTERED No Known Medications MEDICAL (GENERAL) HISTORY Type Description Date Medical History asthma Medical History headache Medical History chronic pain-low back with spasms Medical History anxiety Medical History depression Hospitalization History childbirth x 4
--- OUTSIDE RECORDS SUMMARY | 2019-07-02 15:41 | XMS REPORT ---
Author Author Madina LOZOYA Organization [facility] Address [address] [place] [address] Care Team Providers Care Case Fitter Name Role Phone HUMA LOZOYA Unavailable PROBLEMS Type Condition ICD9-CM Code [id number] Code Onset Dates Condition S tatus SNOMED Code Problem Asthma J45.909 Active 408167681 Problem Alcoholism F10.20 Active 0417078 Problem Arthritis M19.90 Active 2624584 Problem Other chronic pain G89.29 Active 8 7529374 Problem Bipolar disorder F31.9 Active 137 27297 Problem Closed fracture of shaft of right fibula, unspecified fracture morphology, initial encounter S82.401A Active 86187886 Problem Major depressive disorder, single episode F32.9 Active 55035557 Problem Arthropathy, unspecified M12.9 Activ e [id number] ALLERGIES No Information ENCOUNTERS Encounter Location Date Diagnosis [place] [id number] [facility] [id number] [address] [place] [address] May, [facility] [id number] [place] [address] 6688 [address]001 Apr, [facility] [address] [place] [id number] [place] [address] 6671 [address]001 Apr, Cough R05 and Hyperinflation of lungs R09.89 [facility] [address] [facility] [id number] [address] [place] [address] Dec, Arthritis M19.90 ; Alcoholis m F10.20 ; Encounter for immunization Z23 and Breast cancer screening by mammogram Z12.31 [facility] [address] [facility] [id number] [address] [place] [address] Sep, [place] [address] [facility] [id number] [address] [place] [address] Sep, Arthropathy of right ankle M 19.071 [facility] [address] [id number] [address] [place] [address] Aug, Pain in right ankle and join ts of right foot M25.571 and Other chronic pain G89.29 [facility] [address] [id number] [address] [place] [address] Jul, [facility] [address] [facility] [id number] [address] [place] [address] Apr, [facility] [address] [id number] [address] [place] [address] Apr, Injury of right ankle, initi al encounter S99.911A and Encounter for immunization Z23 [facility] [address] [facility] [id number] [address] [place] [address] Dec, [place] [address] [facility] [id number] [address] [place] [address] Nov, Pain in right ankle and join ts of right foot M25.571 ; Other chronic pain G89.29 and Post-traumatic arthritis of right ankle M19.171 [place] [address] [facility] [id number] [address] [place] [address] Oct, Arthritis M19.90 [place] [address] [facility] [id number] [address] [place] [address] Aug, Arthritis M19.90 [place] [address] [facility] [id number] [address] [place] [address] Aug, [place] [address] [id number] [address] [place] [address] Jul, [place] [address] [facility] [id number] [address] [place] [address] June, Arthropathy, unspecified M12 .9 [facility] [address] [facility] [id number] [address] [place] [address] May, Asthma J45.909 and Major dep ressive disorder, single episode F32.9 [facility] [address] [id number] [address] [place] [address] Mar, Closed fracture of shaft of right fibula, unspecified fracture morphology, initial encounter S82.401A [facility] [address] [id number] [address] [place] [address] Feb, [facility] [address] [facility] [id number] [address] [place] [address] Feb, [facility] [address] [id number] [address] [place] [address] Nov, [facility] [address] [facility] [id number] [address] [place] [address] Nov, Bipolar disorder F31.9 ; Enc ounter for immunization Z23 and Asthma J45.909 [facility] [address] [facility] [id number] [address] [place] [address] Aug, [facility] [address] [facility] [id number] [address] [place] [address] May, [facility] [address] [facility] [id number] [address] [place] [address] Apr, [facility] [address] [facility] [id number] [address] [place] [address] Apr, [facility] [address] [facility] [id number] [address] [place] [address] Apr, URI (upper respiratory infec tion) J06.9 and Bipolar disorder F31.9 [facility] [address] [facility] [id number] [address] [place] [address] Feb, [facility] [address] [facility] [id number] [address] [place] [address] Feb, Asthma J45.909 and Alcoholis m F10.20 [facility] [address] [facility] [id number] [address] [place] [address] Jan, [facility] [address] [facility] [id number] [address] [place] [address] Jan, [facility] [address] [facility] [id number] [address] [place] [address] Jan, [facility] [address] [facility] [id number] [address] [place] [address] Nov, Alcoholism F10.20 and Anxiet y F41.9 [facility] [address] [id number] [address] [place] [address] Jul, Anxiety 300.00 and Arthropat hy 716.90 [facility] [address] [facility] [id number] [address] [place] [address] Jul, [facility] [address] [facility] [id number] [address] [place] [address] Jul, Anxiety state 300.00 [facility] [address] [id number] [address] [place] [address] May, [facility] [address] [facility] [id number] [address] [place] [address] May, [facility] [address] [facility] [id number] [address] [place] [address] Apr, [facility] [address] [facility] [id number] [address] [place] [address] Apr, [facility] [address] [facility] [id number] [address] [place] [address] Mar, [facility] [address] [facility] [id number] [address] [place] [address] Mar, [facility] [address] [facility] [id number] [address] [place] [address] Feb, [facility] [address] [facility] [id number] [address] [place] [address] Feb, [facility] [address] [facility] [id number] [address] [place] [address] Feb, [facility] [address] [id number] [address] [place] [address], [place] [address] Feb, [facility] [address] [id number] [address] [place] [address], [place] [address] Jan, [facility] [address] [id number] [address] [place] [address], [place] [address] Jan, [facility] [address] [id number] [address] [place] [address], [place] [address] Jan, [facility] [address] [id number] [address] [place] [address], [place] [address] Jan, [facility] [address] [id number] [address] [place] [address], [place] [address] Nov, [facility] [address] [id number] [address] [place] [address], [place] [address] Nov, [facility] [address] [id number] [address] [place] [address], [place] [address] Nov, [facility] [address] [id number] [address] [place] [address], [place] [address] Nov, [facility] [address] [id number] [address] [place] [address], [place] [address] Nov, [facility] [address] [id number] [address] [place] [address], [place] [address] Nov, [facility] [address] [id number] [address] [place] [address], [place] [address] Nov, [facility] [address] [id number] [address] [place] [address], [place] [address] Nov, [facility] [address] [id number] [address] [place] [address], [place] [address] Nov, [facility] [address] [id number] [address] [place] [address], [place] [address] Nov, [facility] [address] [id number] [address] [place] [address], [place] [address] 13 Nov, 2013 [facility] [address] [id number] [address] [place] [address], [place] [address] 07 Nov, 2013 [facility] [address] [id number] [address] [place] [address], [place] [address] 07 Nov, 2013 [facility] [address] [id number] [address] [place] [address], [place] [address] 30 Sep, 2013 [facility] [address] [id number] [address] [place] [address], [place] [address] 30 Sep, 2013 [facility] [address] [id number] [address] [place] [address], [place] [address] 26 Sep, 2013 [facility] [address] [id number] [address] [place] [address], [place] [address] 26 Sep, 2013 [facility] [address] [id number] [address] [place] [address], [place] [address] 08 Sep, 2013 [facility] [address] [id number] [address] [place] [address], [place] [address] 08 Sep, 2013 [facility] [address] [id number] [address] [place] [address], [place] [address] 04 Sep, 2013 [facility] [address] [id number] [address] [place] [address], [place] [address] 04 Sep, 2013 [facility] [address] [id number] [address] [place] [address], [place] [address] 04 Sep, 2013 [facility] [address] [id number] [address] [place] [address], [place] [address] 04 Sep, 2013 [facility] [address] [id number] [address] [place] [address], [place] [address] 04 Sep, 2013 [facility] [address] [id number] [address] [place] [address], [place] [address] 04 Oct, 2013 [facility] [address] [id number] [address] [place] [address], [place] [address] Sep, [facility] [address] [id number] [facility] [address] Sep, [facility] [address] [id number] [facility] [address] Sep, [facility] [address] [id number] [facility] [address] Sep, [facility] [address] [id number] [address] [place] [address], [place] [address] Sep, [facility] [address] [id number] [address] [place] [address], [place] [address] Sep, [facility] [address] [id number] [address] [place] [address], [place] [address] Sep, [facility] [address] [id number] [address] [place] [address], [place] [address] Sep, [facility] [address] [id number] [address] [place] [address], [place] [address] Aug, [facility] [address] [id number] [address] [place] [address], [place] [address] Aug, [facility] [address] [id number] [address] [place] [address], [place] [address] Aug, [facility] [address] [id number] [address] [place] [address], [place] [address] Aug, [facility] [address] [id number] [address] [place] [address], [place] [address] Jul, [facility] [address] [id number] [address] [place] [address], [place] [address] Jul, [facility] [address] [id number] [address] [place] [address], [place] [address] Jul, [facility] [address] [id number] [address] [place] [address], [place] [address] Jul, [facility] [address] [id number] [address] [place] [address], [place] [address] Jul, [facility] [address] [id number] [address] [place] [address], [place] [address] Jul, [facility] [address] [id number] [address] [place] [address], [place] [address] June, [facility] [address] [id number] [address] [place] [address], [place] [address] June, [facility] [address] [id number] [address] [place] [address], [place] [address] June, [facility] [address] [id number] [address] [place] [address], [place] [address] June, [facility] [address] [id number] [address] [place] [address], [place] [address] June, [facility] [address] [id number] [address] [place] [address], [place] [address] June, [facility] [address] [id number] [address] [place] [address], [place] [address] May, [facility] [address] [id number] [address] [place] [address], [place] [address] May, [facility] [address] [id number] [address] [place] [address], [place] [address] May, [facility] [address] [id number] [address] [place] [address], [place] [address] May, [facility] [address] [id number] [address] [place] [address], [place] [address] May, [facility] [address] [id number] [address] [place] [address], [place] [address] May, [facility] [address] [id number] [address] [place] [address], [place] [address] May, [facility] [address] [id number] [address] [place] [address], [place] [address] May, [facility] [address] [id number] [facility] [place] [address] May, [facility] [address] [id number] [facility] [address] May, [facility] [address] [id number] [facility] [address] Apr, [facility] [address] [id number] [facility] [address] Apr, [facility] [address] [id number] [facility] [address] 10 Apr, 2013 [facility] [address] [id number] [address] [place] [address], [place] [address] 10 Apr, 2013 [facility] [address] [id number] [address] [place] [address], [place] [address] Apr, [facility] [address] [id number] [address] [place] [address], [place] [address] Apr, [facility] [address] [id number] [address] [place] [address], [place] [address] Apr, [facility] [address] [id number] [address] [place] [address], [place] [address] Apr, [facility] [address] [id number] [address] [place] [address], [place] [address] Apr, [facility] [address] [id number] [address] [place] [address], [place] [address] Apr, [facility] [address] [id number] [address] [place] [address], [place] [address] Apr, [facility] [address] [id number] [address] [place] [address], [place] [address] Apr, [facility] [address] [id number] [address] [place] [address], [place] [address] Mar, [facility] [address] [id number] [address] [place] [address], [place] [address] Mar, [facility] [address] [id number] [address] [place] [address], [place] [address] Mar, [facility] [address] [id number] [address] [place] [address], [place] [address] Mar, [facility] [address] [id number] [address] [place] [address], [place] [address] Feb, [facility] [address] [id number] [address] [place] [address], [place] [address] Feb, [facility] [address] [id number] [address] [place] [address], [place] [address] Feb, [facility] [address] [id number] [address] [place] [address], [place] [address] Feb, [facility] [address] [id number] [address] [place] [address], [place] [address] Feb, [facility] [address] [id number] [address] [place] [address], [place] [address] Feb, [facility] [address] [id number] [address] [place] [address], [place] [address] Feb, [facility] [address] [id number] [address] [place] [address], [place] [address] Feb, [facility] [address] [id number] [address] [place] [address], [place] [address] Feb, [facility] [address] [id number] [address] [place] [address], [place] [address] Feb, [facility] [address] [id number] [address] [place] [address], [place] [address] Jan, [facility] [address] [id number] [address] [place] [address], [place] [address] Jan, [facility] [address] [id number] [address] [place] [address], [place] [address] Jan, [facility] [address] [id number] [address] [place] [address], [place] [address] Jan, [facility] [address] [id number] [address] [place] [address], [place] [address] Jan, [facility] [address] [id number] [address] [place] [address], [place] [address] Jan, [facility] [address] [id number] [address] [place] [address], [place] [address] Jan, [facility] [address] [id number] [address] [place] [address], [place] [address] Jan, [facility] [address] [id number] [address] [place] [address], [place] [address] Jan, [facility] [address] [id number] [address] [place] [address], [place] [address] Dec, [facility] [address] [id number] [address] [place] [address], [place] [address] Dec, [facility] [address] [id number] [address] [place] [address], [place] [address] Dec, [facility] [address] [id number] [address] [place] [address], [place] [address] Dec, [facility] [address] [id number] [address] [place] [address], [place] [address] Nov, [facility] [address] [id number] [address] [place] [address], [place] [address] Nov, [facility] [address] [id number] [address] [place] [address], [place] [address] Nov, [facility] [address] [id number] [address] [place] [address], [place] [address] Nov, [facility] [address] [id number] [address] [place] [address], [place] [address] Nov, [facility] [address] [id number] [address] [place] [address], [place] [address] Nov, [facility] [address] [id number] [address] [place] [address], [place] [address] Oct, [facility] [address] [id number] [address] [place] [address], [place] [address] Oct, [facility] [address] [id number] [address] [place] [address], [place] [address] Sep, [facility] [address] [id number] [address] [place] [address], [place] [address] Sep, [facility] [address] [id number] [address] [place] [address], [place] [address] Sep, [facility] [address] [id number] [address] [place] [address], [place] [address] Sep, [facility] [address] [id number] [address] [place] [address], [place] [address] Aug, [facility] [address] [id number] [address] [place] [address], [place] [address] Aug, [facility] [address] [id number] [address] [place] [address], [place] [address] Aug, [facility] [address] [id number] [address] [place] [address], [place] [address] Jul, [facility] [address] [id number] [address] [place] [address], [place] [address] Jul, [facility] [address] [id number] [address] [place] [address], [place] [address] Jul, [facility] [address] [id number] [address] [place] [address], [place] [address] Jul, [facility] [address] [id number] [address] [place] [address], [place] [address] June, [facility] [address] [id number] [address] [place] [address], [place] [address] June, [facility] [address] [id number] [address] [place] [address], [place] [address] 30 May, 2012 [facility] [address] [id number] [address] [place] [address], [place] [address] 03 May, 2012 [facility] [address] [id number] [address] [place] [address], [place] [address] 29 Apr, 2012 [facility] [address] [id number] [address] [place] [address], [place] [address] Apr, [facility] [address] [id number] [address] [place] [address], [place] [address] 18 Mar, 2012 [facility] [address] [id number] [address] [place] [address], [place] [address] Mar, [facility] [address] [id number] [address] [place] [address], [place] [address] 31 Feb, 2012 [facility] [address] [id number] [address] [place] [address], [place] [address] 24 Feb, 2012 [facility] [address] [id number] [address] [place] [address], [place] [address] 18 Feb, 2012 [facility] [address] [id number] [address] [place] [address], [place] [address] 17 Feb, 2012 [facility] [address] [id number] [address] [place] [address], [place] [address] 17 Feb, 2012 [facility] [place] [address] [id number] [address] [place] [address], [place] [address] 16 Feb, 2012 [facility] [place] [address] [id number] [address] [place] [address], [place] [address] 16 Feb, 2012 [facility] [address] [id number] [address] [place] [address], [place] [address] 14 Feb, 2012 [facility] [address] [id number] [address] [place] [address], [place] [address] 11 Feb, 2012 [facility] [address] [id number] [address] [place] [address], [place] [address] Jan, [facility] [place] [address] [id number] [address] [place] [address], [place] [address] Jan, [facility] [address] [id number] [address] [place] [address], [place] [address] Jan, [facility] [address] [id number] [address] [place] [address], [place] [address] Jan, [facility] [address] [id number] [address] [place] [address], [place] [id number] Dec, [facility] [address] [id number] [address] [place] [address], [place] [address] Dec, [facility] [address] [id number] [address] [place] [address], [place] [address] Dec, [facility] [address] [id number] [address] [place] [address], [place] [address] Dec, [facility] [address] [id number] [address] [place] [address], [place] [id number] Oct, [facility] [place] [address] [id number] [address] [place] [address], [place] [address] Sep, [facility] [place] [address] [id number] [address] [place] [address], [place] [id number] Sep, [facility] [address] [id number] [address] [place] [address], [place] [id number] Aug, [facility] [address] [id number] [address] [place] [address], [place] [id number] Jul, [facility] [address] [id number] [address] [place] [address], [place] [address] June, [facility] [address] [id number] [address] [place] [address], [place] [address] June, [facility] [address] [id number] [address] [place] [address], [place] [address] May, [facility] [address] [id number] [address] [place] [phone] Apr, [facility] [address] [id number] [address] [place] [id number] Mar, [facility] [address] [facility] [id number] [address] [place] [id number] Mar, [facility] [address] [facility] [id number] [address] [place] [phone] Feb, [facility] [address] [facility] [id number] [address] [place] [id number] Dec, [facility] [address] [facility] [id number] [address] [place] [phone] Nov, [facility] [address] [facility] [id number] [address] [place] [phone] Sep, [facility] [address] [facility] [id number] [address] [place] [id number] Aug, IMMUNIZATIONS No Known Immunizations SOCIAL HISTORY [...]
--- OUTSIDE RECORDS SUMMARY | 2019-07-02 15:42 | XMS REPORT ---
Author Author Madina LOZOYA Organization [facility] Address [address] [place] [address] Care Team Providers Care Environmental Health And Safety Intern Name Role Phone HUMA LOZOYA Unavailable PROBLEMS Type Condition ICD9-CM Code [id number] Code Onset Dates Condition S tatus SNOMED Code Problem Other and unspecified hyperlipidemia 272.4 Active 65056150 Problem Asthma J45.909 Active 252973854 Problem Alcoholism F10.20 Active 2836409 Problem Arthritis M19.90 Active 9761920 Problem Other chronic pain G89.29 Active 8 7096220 Problem Bipolar disorder F31.9 Active 137 64457 Problem Closed fracture of shaft of right fibula, unspecified fracture morphology, initial encounter S82.401A Active 85684534 Problem Major depressive disorder, single episode F32.9 Active 84227223 Problem Arthropathy, unspecified M12.9 Activ e [id number] ALLERGIES No Information ENCOUNTERS Encounter Location Date Diagnosis [place] [address] [address] Dec, Arthritis M19.90 ; Alcoholism F10.20 ; E ncounter for immunization Z23 and Breast cancer screening by mammogram Z12.[address] [address] Sep, [place] [address] [address] Sep, Arthropathy of right ankle M19.[address] [address] Aug, Pain in right ankle and joints of right foot M25.571 and Other chronic pain G89.29 [place] [address] [address] Jul, [place] [address] [address] Apr, [place] [address] [address] Apr, Injury of right ankle, initial encounter S99.911A and Encounter for immunization Z23 [facility] [address] [address] Dec, [place] [address] [address] Nov, Pain in right ankle and joints of right foot M25.571 ; Other chronic pain G89.29 and Post-traumatic arthritis of right ankle M19.171 [place] [address] [address] Oct, Arthritis M19.90 [place] [address] [address] Aug, Arthritis M19.90 [place] [address] [address] Aug, [place] [address] [address] Jul, [place] [address] [address] June, Arthropathy, unspecified M12.9 [place] [address] [address] May, Asthma J45.909 and Major depressive diso rder, single episode F32.9 [place] [address] [address] 16 Mar, 2016 Closed fracture of shaft of right fibula , unspecified fracture morphology, initial encounter S82.401A [place] [address] [address] Feb, [place] [address] [address] Feb, [place] [address] [place] [id number] [place] [address] Nov, [facility] [address] [address] Nov, Bipolar disorder F31.9 ; Encounter for i mmunization Z23 and Asthma J45.909 [facility] [address] [address] Aug, [facility] [address] [address] May, [facility] [address] [address] Apr, [facility] [address] [address] Apr, [facility] [address] [address] Apr, URI (upper respiratory infection) J06.9 and Bipolar disorder F31.9 [facility] [address] [address] Feb, [facility] [address] [address] Feb, Asthma J45.909 and Alcoholism F10.20 [facility] [address] [address] Jan, [facility] [address] [address] Jan, [facility] [address] [address] Jan, [facility] [address] [address] Nov, Alcoholism F10.20 and Anxiety F41.9 [facility] [address] [address] Jul, Anxiety 300.00 and Arthropathy 716.90 [facility] [address] [place] [id number] [place] [address] Jul, [facility] [address] [id number] [place] [address] Jul, Anxiety state 300.00 [facility] [place] [facility] [address] [id number] [place] [address] May, [facility] [place] [facility] [address] [place] [id number] [place] [address] May, [facility] [place] [facility] [address] [place] [id number] [place] [address] Apr, [facility] [address] [place] [id number] [place] [address] Apr, [facility] [place] [facility] [address] [place] [id number] [place] [address] Mar, [facility] [place] [facility] [address] [place] [id number] [place] [address] Mar, [facility] [place] [facility] [address] [place] [id number] [place] [address] Feb, [facility] [place] [facility] [address] [place] [id number] [place] [address] Feb, [facility] [place] [facility] [address] [place] [id number] [place] [address] Feb, [facility] [place] [facility] [address] [place] [id number] [place] [address] Feb, [facility] [place] [facility] [address] [place] [id number] [place] [address] Jan, [facility] [place] [facility] [address] [place] [id number] [place] [address] Jan, [facility] [place] [facility] [address] [place] [id number] [place] [address] Jan, [facility] [place] [facility] [address] [place] [id number] [place] [address] Jan, [facility] [place] [facility] [address] [place] [id number] [place] [address] Nov, 2013 [facility] [place] [facility] [address] [facility] [id number] [place] [address] Nov, [facility] [place] [facility] [address] [facility] [id number] [place] [address] Nov, 2013 [facility] [place] [facility] [address] [id number] [place] [address] Nov, [facility] [place] [facility] [address] [facility] [id number] [place] [address] Nov, [facility] [place] [facility] [address] [facility] [id number] [place] [address] Nov, [facility] [place] [facility] [address] [id number] [place] [address] Nov, 2013 [facility] [place] [facility] [address] [id number] [place] [address] Nov, 2013 [facility] [place] [facility] [address] [id number] [place] [address] Nov, 2013 [facility] [place] [facility] [address] [facility] [id number] [place] [address] Nov, 2013 [facility] [place] [facility] [address] [id number] [place] [address] Nov, 2013 [facility] [place] [facility] [address] [id number] [place] [address] Nov, 2013 [facility] [place] [facility] [address] [id number] [place] [address] Nov, 2013 [facility] [place] [facility] [address] [facility] [id number] [place] [address] 30 Oct, 2013 [facility] [place] [facility] [address] [facility] [id number] [place] [address] 30 Sep, 2013 [facility] [place] [facility] [address] [facility] [id number] [place] [address] Oct, 2013 [facility] [place] [facility] [address] [id number] [place] [address] Oct, 2013 [facility] [place] [facility] [address] [id number] [place] [address] 08 Oct, 2013 [facility] [place] [facility] [address] [id number] [place] [address] Oct, 2013 [facility] [place] [facility] [address] [id number] [place] [address] Oct, 2013 [facility] [place] [facility] [address] [id number] [place] [address] Oct, 2013 [facility] [place] [facility] [address] [id number] [place] [address] Oct, 2013 [facility] [place] [facility] [address] [id number] [place] [address] Oct, 2013 [facility] [place] [facility] [address] [id number] [place] [address] Oct, 2013 [facility] [place] [facility] [address] [id number] [place] [address] Oct, 2013 [facility] [place] [facility] [address] [id number] [place] [address] Sep, [facility] [place] [facility] [address] [id number] [place] [address] Sep, [facility] [place] [facility] [address] [id number] [place] [address] Sep, [facility] [place] [facility] [address] [id number] [place] [address] Sep, [facility] [place] [facility] [address] [id number] [place] [address] Sep, [facility] [place] [facility] [address] [id number] [place] [address] Sep, [facility] [place] [facility] [address] [id number] [place] [address] Sep, [facility] [place] [facility] [address] [id number] [place] [address] Sep, [facility] [place] [facility] [address] [id number] [place] [address] Aug, [facility] [place] [facility] [address] [id number] [place] [address] Aug, [facility] [place] [facility] [address] [id number] [place] [address] Aug, [facility] [place] [facility] [address] [id number] [place] [address] Aug, [facility] [place] [facility] [address] [id number] [place] [address] Jul, [facility] [place] [facility] [address] [id number] [place] [address] Jul, [facility] [place] [facility] [address] [id number] [place] [address] Jul, [facility] [place] [facility] [address] [id number] [place] [address] Jul, [facility] [place] [facility] [address] [id number] [place] [address] Jul, [facility] [place] [facility] [address] [id number] [place] [address] Jul, [facility] [place] [facility] [address] [id number] [place] [address] June, [facility] [place] [facility] [address] [id number] [place] [address] June, [facility] [place] [facility] [address] [id number] [place] [address] June, [facility] [place] [facility] [address] [id number] [place] [address] June, [facility] [place] [facility] [address] [id number] [place] [address] June, [facility] [place] [facility] [address] [id number] [place] [address] June, [facility] [place] [facility] [address] [id number] [place] [address] May, [facility] [place] [facility] [address] [id number] [place] [address] May, [facility] [place] [facility] [address] [facility] [id number] [facility] [place] [address] May, [facility] [place] [facility] [address] [facility] [id number] [place] [address] May, [facility] [place] [facility] [address] [facility] [id number] [place] [address] May, [facility] [place] [facility] [address] [facility] [id number] [place] [address] May, [facility] [place] [facility] [address] [facility] [id number] [facility] [place] [address] May, [facility] [place] [facility] [address] [facility] [id number] [place] [address] May, [facility] [place] [facility] [address] [id number] [place] [address] May, [facility] [place] [facility] [address] [id number] [facility] [place] [address] May, [facility] [place] [facility] [address] [facility] [id number] [place] [address] Apr, [facility] [place] [facility] [address] [id number] [facility] [place] [address] Apr, [facility] [place] [facility] [address] [id number] [place] [address] Apr, [facility] [place] [facility] [address] [id number] [place] [address] 10 Apr, 2013 [facility] [place] [facility] [address] [facility] [id number] [place] [address] 10 Apr, 2013 [facility] [place] [facility] [address] [facility] [id number] [place] [address] Apr, [facility] [place] [facility] [address] [facility] [id number] [place] [address] Apr, [facility] [place] [facility] [address] [id number] [place] [address] Apr, [facility] [place] [facility] [address] [id number] [facility] [place] [address] Apr, [facility] [place] [facility] [address] [facility] [id number] [place] [address] Apr, [facility] [place] [facility] [address] [id number] [place] [address] Apr, [facility] [place] [facility] [address] [id number] [place] [address] Apr, [facility] [place] [facility] [address] [id number] [place] [address] Mar, [facility] [place] [facility] [address] [id number] [place] [address] Mar, [facility] [place] [facility] [address] [id number] [place] [address] Mar, [facility] [place] [facility] [address] [id number] [place] [address] Mar, [facility] [place] [facility] [address] [id number] [place] [address] Feb, [facility] [place] [facility] [address] [id number] [place] [address] Feb, [facility] [place] [facility] [address] [id number] [place] [address] Feb, [facility] [place] [facility] [address] [id number] [place] [address] Feb, [facility] [place] [facility] [address] [id number] [place] [address] Feb, [facility] [place] [facility] [address] [id number] [place] [address] Feb, [facility] [place] [facility] [address] [id number] [place] [address] Feb, [facility] [place] [facility] [address] [id number] [place] [address] Feb, [facility] [place] [facility] [address] [id number] [place] [address] Feb, [facility] [place] [facility] [address] [id number] [place] [address] Feb, [facility] [place] [facility] [address] [id number] [place] [address] Jan, [facility] [place] [facility] [address] [id number] [place] [address] Jan, [facility] [place] [facility] [address] [id number] [place] [address] Jan, [facility] [place] [facility] [address] [id number] [place] [address] Jan, [facility] [place] [facility] [address] [id number] [place] [address] Jan, [facility] [place] [facility] [address] [id number] [place] [address] Jan, [facility] [place] [facility] [address] [id number] [place] [address] Jan, [facility] [place] [facility] [address] [id number] [place] [address] Jan, [facility] [place] [facility] [address] [id number] [place] [address] Jan, [facility] [place] [facility] [address] [id number] [place] [address] Dec, [facility] [place] [facility] [address] [id number] [place] [address] Dec, [facility] [place] [facility] [address] [id number] [place] [address] Dec, [facility] [place] [facility] [address] [id number] [place] [address] Dec, [facility] [place] [facility] [address] [id number] [place] [address] Nov, [facility] [place] [facility] [address] [id number] [place] [address] Nov, [facility] [place] [facility] [address] [id number] [place] [address] Nov, [facility] [place] [facility] [address] [facility] [id number] [facility] [place] [address] Nov, [facility] [place] [facility] [address] [facility] [id number] [facility] [place] [address] Nov, [facility] [place] [facility] [address] [id number] [facility] [place] [address] Nov, [facility] [place] [facility] [address] [facility] [id number] [facility] [place] [address] Oct, [facility] [place] [facility] [address] [facility] [id number] [facility] [place] [address] Oct, [facility] [place] [facility] [address] [id number] [place] [address] Sep, [facility] [place] [facility] [address] [id number] [place] [address] Sep, [facility] [place] [facility] [address] [id number] [place] [address] Sep, [facility] [place] [facility] [address] [id number] [place] [address] Sep, [facility] [place] [facility] [address] [id number] [place] [address] Aug, [facility] [place] [facility] [address] [id number] [place] [address] Aug, [facility] [place] [facility] [address] [id number] [place] [address] Aug, [facility] [place] [facility] [address] [facility] [id number] [place] [address] Jul, [facility] [place] [facility] [address] [id number] [place] [address] Jul, [facility] [place] [facility] [address] [id number] [place] [address] Jul, [facility] [place] [facility] [address] [id number] [place] [address] Jul, [facility] [place] [facility] [address] [id number] [place] [address] June, [facility] [place] [facility] [address] [facility] [id number] [place] [address] June, [facility] [place] [facility] [address] [id number] [place] [address] May, [facility] [address] [id number] [place] [address] May, [facility] [address] [id number] [place] [address] Apr, [facility] [address] [id number] [place] [address] Apr, [facility] [address] [id number] [place] [address] Mar, [facility] [address] [id number] [place] [address] Mar, [facility] [address] [id number] [place] [address] Feb, [facility] [address] [id number] [place] [address] 24 Feb, 2012 [facility] [address] [id number] [place] [address] Feb, [facility] [address] [id number] [place] [address] Feb, [facility] [address] [id number] [place] [address] Feb, [facility] [address] [id number] [place] [address] 16 Feb, 2012 [facility] [address] [id number] [place] [address] 16 Feb, 2012 [facility] [address] [id number] [place] [address] 14 Feb, 2012 [facility] [address] [id number] [place] [address] Feb, [facility] [address] [id number] [place] [address] Jan, [facility] [address] [id number] [place] [address] Jan, [facility] [address] [id number] [place] [address] Jan, [facility] [address] [id number] [place] [address] Jan, [facility] [address] [id number] [place] [address] Dec, [facility] [address] [id number] [place] [address] Dec, [facility] [address] [id number] [place] [address] Dec, [facility] [id number] [place] [address] Dec, [facility] [address] [id number] [place] [address] Oct, [facility] [id number] [place] [address] Sep, [facility] [address] [id number] [place] [address] Sep, [facility] [address] [id number] [place] [address] Aug, [facility] [address] [id number] [place] [address] Jul, [facility] [address] [id number] [place] [address] June, [facility] [address] [id number] [place] [address] June, [facility] [address] [id number] [place] [address] May, [facility] [address] [id number] [place] [address] Apr, [facility] [address] [id number] [place] [address] Mar, [facility] [address] [id number] [place] [address] Mar, [facility] [address] [id number] [place] [address] Feb, [facility] [address] [id number] [place] [address] Dec, [facility] [address] [id number] [place] [address] Nov, [facility] [address] [id number] [place] [address] Sep, [facility] [address] [id number] [place] [address] Aug, IMMUNIZATIONS No Known Immunizations SOCIAL HISTORY Never Assessed REASON FOR VISIT PLAN OF CARE VITAL SIGNS MEDICATIONS No Known Medications RESULTS No Results PROCEDURES No Known procedures INSTRUCTIONS MEDICATIONS ADMINISTERED No Known Medications MEDICAL (GENERAL) HISTORY Type Description Date Medical History asthma Medical History headache Medical History chronic pain-low back with spasms Medical History anxiety Medical History depression Hospitalization History childbirth x 4
--- OUTSIDE RECORDS SUMMARY | 2019-07-02 15:42 | XMS REPORT ---
Author Author Madina LOZOYA Organization [facility] Address [address] [place] [address] Care Team Providers Care Air Quality Technician Name Role Phone HUMA LOZOYA Unavailable PROBLEMS Type Condition ICD9-CM Code XOE20-CP Code Onset Dates Condition S tatus SNOMED Code Problem Asthma J45.909 Active 381881270 Problem Alcoholism F10.20 Active 2085361 Problem Arthritis M19.90 Active 8893797 Problem Other chronic pain G89.29 Active 8 3433632 Problem Bipolar disorder F31.9 Active 137 76256 Problem Closed fracture of shaft of right fibula, unspecified fracture morphology, initial encounter S82.401A Active 43188532 Problem Major depressive disorder, single episode F32.9 Active 31250209 Problem Arthropathy, unspecified M12.9 Activ e [id number] ALLERGIES No Information ENCOUNTERS Encounter Location Date Diagnosis [place] [id number] [address] May, [facility] [address] [address] Apr, [facility] [address] [address] Apr, Cough R05 and Hyperinflation of lungs R09.89 [facility] [address] [address] Dec, Arthritis M19.90 ; Alcoholism F10.20 ; E ncounter for immunization Z23 and Breast cancer screening by mammogram Z12.31 [facility] [address] [address] Sep, [facility] [address] [address] Sep, Arthropathy of right ankle M19.071 [place] [address] [address] Aug, Pain in right ankle and joints of right foot M25.571 and Other chronic pain G89.29 [place] [address] [address] Jul, [place] [address] [address] Apr, [place] [address] [address] Apr, Injury of right ankle, initial encounter S99.911A and Encounter for immunization Z23 [place] [address] [address] Dec, [place] [address] [address] Nov, Pain in right ankle and joints of right foot M25.571 ; Other chronic pain G89.29 and Post-traumatic arthritis of right ankle M19.171 [place] [address] [address] Oct, Arthritis M19.90 [place] [address] [address] Aug, Arthritis M19.90 [place] [address] [address] Aug, [place] [address] [address] Jul, [place] [address] [address] June, Arthropathy, unspecified M12.9 [place] [address] [address] May, Asthma J45.909 and Major depressive diso rder, single episode F32.9 [place] [address] [address] 16 Mar, 2016 Closed fracture of shaft of right fibula , unspecified fracture morphology, initial encounter S82.401A [facility] [address] [address] Feb, [facility] [address] [address] Feb, [facility] [address] [address] Nov, [facility] [address] [address] Nov, Bipolar disorder F31.9 ; Encounter for i mmunization Z23 and Asthma J45.909 [place] [address] [address] Aug, [place] [address] [address] May, [facility] [address] [address] Apr, [facility] [address] [address] Apr, [place] [address] [address] Apr, URI (upper respiratory infection) J06.9 and Bipolar disorder F31.9 [place] [address] [address] Feb, [facility] [address] [address] Feb, Asthma J45.909 and Alcoholism F10.20 [facility] [address] [address] Jan, [facility] [address] [address] Jan, [facility] [address] [address] Jan, [place] [address] [place] [id number] [place] [address] Nov, Alcoholism F10.20 and Anxiety F41.9 [facility] [address] [place] [address] [place] [address] Jul, Anxiety 300.00 and Arthropathy 716.90 [facility] [address] [place] [address] [place] [address] Jul, [facility] [address] [address] Jul, Anxiety state 300.00 [facility] [address] [address] May, [facility] [address] [address] May, [facility] [address] [address] Apr, [facility] [address] [address] Apr, [facility] [address] [address] Mar, [facility] [address] [address] Mar, [facility] [address] [place] [address] [place] [address] Feb, [facility] [address] [address] Feb, [facility] [address] [place] [address] [place] [address] Feb, [facility] [address] [address] Feb, [facility] [address] [place] [address] [place] [address] Jan, [facility] [address] [address] Jan, [facility] [place] [facility] [address] [facility] [id number] [place] [address] Jan, 2013 [facility] [place] [facility] [address] [id number] [place] [address] Jan, 2013 [facility] [place] [facility] [address] [id number] [place] [address] Nov, 2013 [facility] [place] [facility] [address] [id number] [place] [address] Nov, 2013 [facility] [place] [facility] [address] [facility] [id number] [place] [address] Nov, 2013 [facility] [place] [facility] [address] [id number] [place] [address] Nov, [facility] [place] [facility] [address] [id number] [place] [address] Nov, [facility] [place] [facility] [address] [id number] [place] [address] Nov, [facility] [place] [facility] [address] [id number] [place] [address] Nov, 2013 [facility] [place] [facility] [address] [id number] [place] [address] Nov, [facility] [place] [facility] [address] [id number] [place] [address] Nov, 2013 [facility] [place] [facility] [address] [id number] [place] [address] Nov, 2013 [facility] [place] [facility] [address] [id number] [place] [address] Nov, 2013 [facility] [place] [facility] [address] [id number] [place] [address] Nov, [facility] [place] [facility] [address] [id number] [place] [address] Nov, 2013 [facility] [place] [facility] [address] [id number] [place] [address] 30 Oct, 2013 [facility] [place] [facility] [address] [id number] [facility] [place] [address] 30 Oct, 2013 [facility] [place] [facility] [address] [id number] [facility] [place] [address] Oct, 2013 [facility] [place] [facility] [address] [facility] [id number] [place] [address] Oct, 2013 [facility] [place] [facility] [address] [id number] [place] [address] 08 Oct, 2013 [facility] [place] [facility] [address] [facility] [id number] [place] [address] 08 Oct, 2013 [facility] [place] [facility] [address] [facility] [id number] [facility] [place] [address] Oct, 2013 [facility] [place] [facility] [address] [id number] [place] [address] Oct, 2013 [facility] [place] [facility] [address] [id number] [place] [address] Oct, 2013 [facility] [place] [facility] [address] [id number] [place] [address] Oct, 2013 [facility] [place] [facility] [address] [id number] [place] [address] Oct, 2013 [facility] [place] [facility] [address] [id number] [place] [address] Oct, 2013 [facility] [place] [facility] [address] [id number] [place] [address] Sep, [facility] [place] [facility] [address] [id number] [place] [address] Sep, 2013 [facility] [place] [facility] [address] [facility] [id number] [place] [address] Sep, [facility] [place] [facility] [address] [id number] [place] [address] Sep, [facility] [place] [facility] [address] [id number] [place] [address] Sep, 2013 [facility] [place] [facility] [address] [id number] [place] [address] Sep, 2013 [facility] [place] [facility] [address] [facility] [id number] [place] [address] Sep, [facility] [place] [facility] [address] [facility] [id number] [place] [address] Sep, [facility] [place] [facility] [address] [facility] [id number] [place] [address] Aug, [facility] [place] [facility] [address] [id number] [place] [address] Aug, [facility] [place] [facility] [address] [id number] [place] [address] Aug, [facility] [place] [facility] [address] [id number] [place] [address] Aug, [facility] [place] [facility] [address] [id number] [place] [address] Jul, [facility] [place] [facility] [address] [id number] [place] [address] Jul, [facility] [place] [facility] [address] [id number] [place] [address] Jul, [facility] [place] [facility] [address] [id number] [place] [address] Jul, [facility] [place] [facility] [address] [id number] [place] [address] Jul, [facility] [place] [facility] [address] [id number] [place] [address] Jul, [facility] [place] [facility] [address] [id number] [place] [address] June, [facility] [place] [facility] [address] [id number] [place] [address] June, [facility] [place] [facility] [address] [id number] [place] [address] June, [facility] [place] [facility] [address] [id number] [place] [address] June, [facility] [place] [facility] [address] [id number] [place] [address] June, [facility] [place] [facility] [address] [facility] [id number] [place] [address] June, [facility] [place] [facility] [address] [facility] [id number] [place] [address] May, [facility] [place] [facility] [address] [id number] [place] [address] May, [facility] [place] [facility] [address] [id number] [place] [address] May, [facility] [place] [facility] [address] [facility] [id number] [place] [address] May, [facility] [place] [facility] [address] [id number] [place] [address] May, [facility] [place] [facility] [address] [id number] [place] [address] May, [facility] [place] [facility] [address] [id number] [place] [address] May, [facility] [place] [facility] [address] [id number] [place] [address] May, [facility] [place] [facility] [address] [id number] [place] [address] May, [facility] [place] [facility] [address] [id number] [place] [address] May, [facility] [place] [facility] [address] [id number] [place] [address] Apr, [facility] [place] [facility] [address] [id number] [place] [address] Apr, [facility] [place] [facility] [address] [id number] [place] [address] Apr, [facility] [place] [facility] [address] [id number] [place] [address] Apr, [facility] [place] [facility] [address] [id number] [place] [address] Apr, [facility] [place] [facility] [address] [id number] [place] [address] Apr, [facility] [place] [facility] [address] [facility] [id number] [place] [address] Apr, [facility] [place] [facility] [address] [facility] [id number] [place] [address] Apr, [facility] [place] [facility] [address] [id number] [place] [address] Apr, [facility] [place] [facility] [address] [id number] [place] [address] Apr, [facility] [place] [facility] [address] [facility] [id number] [place] [address] Apr, [facility] [place] [facility] [address] [id number] [place] [address] Apr, [facility] [place] [facility] [address] [id number] [place] [address] Mar, [facility] [place] [facility] [address] [id number] [place] [address] Mar, [facility] [place] [facility] [address] [id number] [place] [address] Mar, [facility] [place] [facility] [address] [id number] [place] [address] Mar, [facility] [place] [facility] [address] [id number] [place] [address] Feb, [facility] [place] [facility] [address] [id number] [place] [address] Feb, [facility] [place] [facility] [address] [id number] [place] [address] Feb, [facility] [place] [facility] [address] [id number] [place] [address] Feb, [facility] [place] [facility] [address] [id number] [place] [address] Feb, [facility] [place] [facility] [address] [id number] [place] [address] Feb, [facility] [place] [facility] [address] [id number] [place] [address] 08 Feb, 2013 [facility] [place] [facility] [address] [id number] [place] [address] Feb, [facility] [place] [facility] [address] [id number] [place] [address] Feb, [facility] [place] [facility] [address] [id number] [place] [address] Feb, [facility] [place] [facility] [address] [id number] [place] [address] Jan, [facility] [place] [facility] [address] [id number] [place] [address] Jan, [facility] [place] [facility] [address] [id number] [place] [address] Jan, [facility] [place] [facility] [address] [id number] [place] [address] Jan, [facility] [place] [facility] [address] [id number] [place] [address] Jan, [facility] [place] [facility] [address] [id number] [place] [address] Jan, [facility] [place] [facility] [address] [id number] [place] [address] Jan, [facility] [place] [facility] [address] [id number] [place] [address] Jan, [facility] [place] [facility] [address] [id number] [place] [address] 06 Jan, 2013 [facility] [place] [facility] [address] [id number] [place] [address] Dec, [facility] [place] [facility] [address] [id number] [place] [address] Dec, [facility] [place] [facility] [address] [id number] [place] [address] 08 Dec, 2012 [facility] [place] [facility] [address] [id number] [place] [address] Dec, [facility] [place] [facility] [address] [facility] [id number] [place] [address] Nov, [facility] [place] [facility] [address] [facility] [id number] [facility] [place] [address] Nov, [facility] [place] [facility] [address] [id number] [place] [address] Nov, [facility] [place] [facility] [address] [id number] [place] [address] Nov, [facility] [place] [facility] [address] [facility] [id number] [facility] [place] [address] Nov, [facility] [place] [facility] [address] [id number] [place] [address] Nov, [facility] [place] [facility] [address] [id number] [place] [address] Oct, [facility] [place] [facility] [address] [id number] [place] [address] Oct, [facility] [place] [facility] [address] [id number] [place] [address] Sep, [facility] [place] [facility] [address] [id number] [place] [address] Sep, [facility] [place] [facility] [address] [id number] [place] [address] Sep, [facility] [place] [facility] [address] [id number] [place] [address] Sep, [facility] [place] [facility] [address] [facility] [id number] [place] [address] Aug, [facility] [place] [facility] [address] [facility] [id number] [place] [address] Aug, [facility] [place] [facility] [address] [facility] [id number] [place] [address] Aug, [facility] [place] [facility] [address] [id number] [place] [address] Jul, [facility] [place] [facility] [address] [id number] [place] [address] Jul, [facility] [place] [facility] [address] [id number] [place] [address] Jul, [facility] [place] [facility] [address] [id number] [place] [address] Jul, [facility] [place] [facility] [address] [id number] [place] [address] June, [facility] [place] [facility] [address] [id number] [place] [address] June, [facility] [place] [facility] [address] [id number] [place] [address] May, [facility] [place] [facility] [address] [id number] [place] [address] May, [facility] [place] [facility] [address] [id number] [place] [address] Apr, [facility] [place] [facility] [address] [place] [id number] [place] [address] Apr, [facility] [place] [facility] [address] [id number] [place] [address] Mar, [facility] [place] [facility] [address] [id number] [place] [address] Mar, [facility] [place] [facility] [address] [id number] [place] [address] Feb, [facility] [place] [facility] [address] [id number] [place] [address] Feb, [facility] [place] [facility] [address] [id number] [place] [address] Feb, [facility] [place] [facility] [address] [id number] [place] [address] Feb, [facility] [place] [facility] [address] [id number] [place] [address] Feb, [facility] [place] [facility] [id number] [place] [address] Feb, [facility] [place] [facility] [address] [id number] [place] [address] 16 Feb, 2012 [facility] [place] [facility] [address] [id number] [place] [address] Feb, [facility] [place] [facility] [address] [id number] [place] [address] Feb, [facility] [place] [facility] [address] [id number] [place] [address] Jan, [facility] [place] [facility] [address] [id number] [place] [address] Jan, [facility] [place] [facility] [address] [id number] [place] [address] Jan, [facility] [place] [facility] [address] [id number] [place] [address] Jan, [facility] [place] [facility] [address] [id number] [place] [address] Dec, [facility] [place] [facility] [address] [id number] [place] [address] Dec, [facility] [place] [facility] [address] [id number] [place] [address] Dec, [facility] [place] [facility] [address] [id number] [place] [address] Dec, [facility] [place] [facility] [address] [id number] [place] [address] Oct, [facility] [place] [facility] [address] [id number] [place] [address] Sep, [facility] [place] [facility] [address] [id number] [place] [address] Sep, [facility] [place] [facility] [address] [id number] [place] [address] Aug, [facility] [place] [facility] [address] [id number] [place] [address] Jul, [facility] [address] [id number] [place] [address] June, [facility] [address] [id number] [place] [address] June, [facility] [address] [id number] [place] [address] May, [facility] [address] [id number] [place] [address] Apr, [facility] [id number] [place] [address] Mar, [facility] [address] [id number] [place] [address] Mar, [facility] [address] [id number] [place] [address] Feb, [facility] [address] [id number] [place] [address] Dec, [facility] [address] [id number] [place] [address] Nov, [facility] [address] [id number] [place] [address] Sep, [facility] [address] [id number] [place] [address] Aug, IMMUNIZATIONS No Known Immunizations SOCIAL HISTORY Never Assessed REASON FOR VISIT PLAN OF CARE VITAL SIGNS Height 66 in 2013-03-02 Weight 131 lbs 2013-03-02 Temperature 98 degrees Fahrenheit 2013-03-02 Heart Rate 80 bpm 2013-03-02 Respiratory Rate 20 2013-03-02 Blood pressure systolic 128 mmHg 2013-03-02 Blood pressure diastolic 72 mmHg 2013-03-02 MEDICATIONS Unknown Medications RESULTS No Results PROCEDURES Procedure Date Ordered Result Body Site COMPREHEN METABOLIC PANEL Mar 02, 2013 VENIPUNCT, ROUTINE* Mar 02, 2013 INSTRUCTIONS MEDICATIONS ADMINISTERED No Known Medications MEDICAL (GENERAL) HISTORY Type Description Date Medical History asthma Medical History headache Medical History chronic pain-low back with spasms Medical History anxiety Medical History depression Hospitalization History childbirth x 4
--- OUTSIDE RECORDS SUMMARY | 2019-07-02 15:42 | XMS REPORT ---
Author Author Madina LOZOYA Organization [facility] Address [address] [place] [address] Care Team Providers Care Licensed Retail Supervisor Name Role Phone HUMA LOZOYA Unavailable PROBLEMS Type Condition ICD9-CM Code [id number] Code Onset Dates Condition S tatus SNOMED Code Problem Asthma J45.909 Active 807447929 Problem Alcoholism F10.20 Active 3936704 Problem Arthritis M19.90 Active 9464976 Problem Other chronic pain G89.29 Active 8 7367037 Problem Bipolar disorder F31.9 Active 137 85255 Problem Closed fracture of shaft of right fibula, unspecified fracture morphology, initial encounter S82.401A Active 68308824 Problem Major depressive disorder, single episode F32.9 Active 77869520 Problem Arthropathy, unspecified M12.9 Activ e [id number] ALLERGIES No Information ENCOUNTERS Encounter Location Date Diagnosis [facility] [id number] [place] [address] May, [facility] [address] [id number] [place] [address] Apr, Cough R05 and Hyperinflation of lungs R09.89 [facility] [address] [address] Dec, Arthritis M19.90 ; Alcoholism F10.20 ; E ncounter for immunization Z23 and Breast cancer screening by mammogram Z12.31 [facility] [id number] [place] [address] Sep, [facility] [address] [address] Sep, Arthropathy of right ankle M19.071 [facility] [address] [address] Aug, Pain in right ankle and joints of right foot M25.571 and Other chronic pain G89.29 [address] [address] [address] Jul, [place] [address] [address] Apr, [place] [address] [address] Apr, Injury of right ankle, initial encounter S99.911A and Encounter for immunization Z23 [place] [address] [address] Dec, [place] [address] [address] Nov, Pain in right ankle and joints of right foot M25.571 ; Other chronic pain G89.29 and Post-traumatic arthritis of right ankle M19.171 [place] [address] [address] Oct, Arthritis M19.90 [place] [address] [address] Aug, Arthritis M19.90 [place] [address] [address] Aug, [place] [address] [address] Jul, [place] [address] [address] June, Arthropathy, unspecified M12.9 [place] [address] [address] 13 May, 2016 Asthma J45.909 and Major depressive diso rder, single episode F32.9 [place] [address] [address] 16 Mar, 2016 Closed fracture of shaft of right fibula , unspecified fracture morphology, initial encounter S82.401A [place] [address] [address] Feb, [facility] [address] [address] Feb, [facility] [address] [address] Nov, [facility] [address] [address] Nov, Bipolar disorder F31.9 ; Encounter for i mmunization Z23 and Asthma J45.909 [facility] [address] [address] Aug, [facility] [address] [address] May, [facility] [address] [address] Apr, [facility] [address] [address] Apr, [facility] [address] [address] Apr, URI (upper respiratory infection) J06.9 and Bipolar disorder F31.9 [facility] [address] [address] Feb, [facility] [address] [address] Feb, Asthma J45.909 and Alcoholism F10.20 [facility] [address] [address] Jan, [facility] [address] [address] Jan, [facility] [address] [address] Jan, [facility] [address] [address] Nov, Alcoholism F10.20 and Anxiety F41.9 [facility] [id number] [place] [address] Jul, Anxiety 300.00 and Arthropathy 716.90 [facility] [id number] [place] [address] Jul, [facility] [address] [address] Jul, Anxiety state 300.00 [facility] [address] [address] May, [facility] [address] [address] May, [facility] [address] [address] Apr, [facility] [address] [address] Apr, [facility] [address] [address] Mar, [facility] [address] [address] Mar, [facility] [address] [address] Feb, [facility] [address] [address] Feb, [facility] [address] [address] Feb, [facility] [id number] [place] [address] Feb, [facility] [address] [address] Jan, [facility] [address] [address] Jan, [facility] [address] [address] Jan, [facility] [place] [facility] [address] [facility] [id number] [place] [address] Jan, 2013 [facility] [place] [facility] [address] [id number] [place] [address] Nov, 2013 [facility] [place] [facility] [address] [id number] [place] [address] Nov, [facility] [place] [facility] [address] [id number] [place] [address] Nov, [facility] [place] [facility] [address] [facility] [id number] [place] [address] Nov, [facility] [place] [facility] [address] [id number] [place] [address] Nov, [facility] [place] [facility] [address] [id number] [place] [address] Nov, [facility] [place] [facility] [address] [id number] [place] [address] Nov, [facility] [place] [facility] [address] [id number] [place] [address] Nov, 2013 [facility] [place] [facility] [address] [id number] [place] [address] Nov, 2013 [facility] [place] [facility] [address] [id number] [place] [address] Nov, 2013 [facility] [place] [facility] [address] [id number] [place] [address] Nov, 2013 [facility] [place] [facility] [address] [id number] [place] [address] Nov, 2013 [facility] [place] [facility] [address] [id number] [place] [address] Nov, 2013 [facility] [place] [facility] [address] [id number] [place] [address] 30 Oct, 2013 [facility] [place] [facility] [address] [id number] [place] [address] 30 Oct, 2013 [facility] [place] [facility] [address] [id number] [facility] [place] [address] Oct, 2013 [facility] [place] [facility] [address] [id number] [facility] [place] [address] Oct, 2013 [facility] [place] [facility] [address] [facility] [id number] [place] [address] Oct, 2013 [facility] [place] [facility] [address] [id number] [place] [address] Oct, 2013 [facility] [place] [facility] [address] [facility] [id number] [place] [address] Oct, 2013 [facility] [place] [facility] [address] [facility] [id number] [place] [address] Oct, 2013 [facility] [place] [facility] [address] [id number] [place] [address] Oct, 2013 [facility] [place] [facility] [address] [id number] [place] [address] Oct, 2013 [facility] [place] [facility] [address] [id number] [place] [address] Oct, 2013 [facility] [place] [facility] [address] [id number] [place] [address] Oct, 2013 [facility] [place] [facility] [address] [id number] [place] [address] Sep, [facility] [place] [facility] [address] [id number] [place] [address] Sep, [facility] [place] [facility] [address] [id number] [place] [address] Sep, 2013 [facility] [place] [facility] [address] [facility] [id number] [place] [address] Sep, [facility] [place] [facility] [address] [id number] [place] [address] Sep, [facility] [place] [facility] [address] [id number] [place] [address] Sep, 2013 [facility] [place] [facility] [address] [id number] [place] [address] Sep, 2013 [facility] [place] [facility] [address] [facility] [id number] [place] [address] Sep, [facility] [place] [facility] [address] [id number] [place] [address] Aug, [facility] [place] [facility] [address] [id number] [place] [address] Aug, [facility] [place] [facility] [address] [id number] [place] [address] Aug, [facility] [place] [facility] [address] [id number] [place] [address] Aug, [facility] [place] [facility] [address] [id number] [place] [address] Jul, [facility] [place] [facility] [address] [id number] [place] [address] Jul, [facility] [place] [facility] [address] [id number] [place] [address] Jul, [facility] [place] [facility] [address] [id number] [place] [address] Jul, [facility] [place] [facility] [address] [id number] [place] [address] Jul, [facility] [place] [facility] [address] [id number] [place] [address] Jul, [facility] [place] [facility] [address] [id number] [place] [address] June, [facility] [place] [facility] [address] [id number] [place] [address] June, [facility] [place] [facility] [address] [id number] [place] [address] June, [facility] [place] [facility] [address] [id number] [place] [address] June, [facility] [place] [facility] [address] [id number] [place] [address] June, [facility] [place] [facility] [address] [id number] [place] [address] June, [facility] [place] [facility] [address] [facility] [id number] [facility] [place] [address] May, [facility] [place] [facility] [address] [facility] [id number] [place] [address] May, [facility] [place] [facility] [address] [id number] [place] [address] May, [facility] [place] [facility] [address] [id number] [place] [address] May, [facility] [place] [facility] [address] [facility] [id number] [place] [address] May, [facility] [place] [facility] [address] [id number] [place] [address] May, [facility] [place] [facility] [address] [id number] [place] [address] May, [facility] [place] [facility] [address] [facility] [id number] [place] [address] May, [facility] [place] [facility] [address] [id number] [place] [address] May, [facility] [place] [facility] [address] [id number] [place] [address] May, [facility] [place] [facility] [address] [id number] [place] [address] Apr, [facility] [place] [facility] [address] [id number] [place] [address] Apr, [facility] [place] [facility] [address] [id number] [place] [address] Apr, [facility] [place] [facility] [address] [id number] [place] [address] Apr, [facility] [place] [facility] [address] [id number] [place] [address] Apr, [facility] [place] [facility] [address] [id number] [place] [address] Apr, [facility] [place] [facility] [address] [id number] [place] [address] 10 Apr, 2013 [facility] [place] [facility] [address] [facility] [id number] [place] [address] Apr, [facility] [place] [facility] [address] [facility] [id number] [place] [address] Apr, [facility] [place] [facility] [address] [id number] [place] [address] Apr, [facility] [place] [facility] [address] [id number] [place] [address] Apr, [facility] [place] [facility] [address] [facility] [id number] [place] [address] Apr, [facility] [place] [facility] [address] [id number] [place] [address] Mar, [facility] [place] [facility] [address] [id number] [place] [address] Mar, [facility] [place] [facility] [address] [id number] [place] [address] Mar, [facility] [place] [facility] [address] [id number] [place] [address] Mar, [facility] [place] [facility] [address] [id number] [place] [address] Feb, [facility] [place] [facility] [address] [id number] [place] [address] Feb, [facility] [place] [facility] [address] [id number] [place] [address] Feb, [facility] [place] [facility] [address] [id number] [place] [address] Feb, [facility] [place] [facility] [address] [id number] [place] [address] Feb, [facility] [place] [facility] [address] [id number] [place] [address] Feb, [facility] [place] [facility] [address] [id number] [place] [address] Feb, [facility] [place] [facility] [address] [id number] [place] [address] Feb, [facility] [place] [facility] [address] [id number] [place] [address] Feb, [facility] [place] [facility] [address] [id number] [place] [address] Feb, [facility] [place] [facility] [address] [id number] [place] [address] Jan, [facility] [place] [facility] [address] [id number] [place] [address] Jan, [facility] [place] [facility] [address] [id number] [place] [address] Jan, [facility] [place] [facility] [address] [id number] [place] [address] Jan, [facility] [place] [facility] [address] [id number] [place] [address] Jan, [facility] [place] [facility] [address] [id number] [place] [address] Jan, [facility] [place] [facility] [address] [id number] [place] [address] Jan, [facility] [place] [facility] [address] [id number] [place] [address] Jan, [facility] [place] [facility] [address] [id number] [place] [address] Jan, [facility] [place] [facility] [address] [id number] [place] [address] Dec, [facility] [place] [facility] [address] [id number] [place] [address] Dec, [facility] [place] [facility] [address] [id number] [place] [address] Dec, [facility] [place] [facility] [address] [id number] [place] [address] Dec, [facility] [place] [facility] [address] [id number] [place] [address] Nov, [facility] [place] [facility] [address] [facility] [id number] [facility] [place] [address] Nov, [facility] [place] [facility] [address] [facility] [id number] [facility] [place] [address] Nov, [facility] [place] [facility] [address] [id number] [facility] [place] [address] Nov, [facility] [place] [facility] [address] [facility] [id number] [facility] [place] [address] Nov, [facility] [place] [facility] [address] [facility] [id number] [facility] [place] [address] Nov, [facility] [place] [facility] [address] [facility] [id number] [facility] [place] [address] Oct, [facility] [place] [facility] [address] [id number] [place] [address] Oct, [facility] [place] [facility] [address] [id number] [place] [address] Sep, [facility] [place] [facility] [address] [facility] [id number] [place] [address] Sep, [facility] [place] [facility] [address] [id number] [place] [address] Sep, [facility] [place] [facility] [address] [id number] [place] [address] Sep, [facility] [place] [facility] [address] [id number] [place] [address] Aug, [facility] [place] [facility] [address] [facility] [id number] [place] [address] Aug, [facility] [place] [facility] [address] [id number] [place] [address] Aug, [facility] [place] [facility] [address] [facility] [id number] [place] [address] Jul, [facility] [place] [facility] [address] [id number] [place] [address] Jul, [facility] [place] [facility] [address] [id number] [place] [address] Jul, [facility] [place] [facility] [address] [id number] [place] [address] Jul, [facility] [place] [facility] [address] [id number] [place] [address] June, [facility] [place] [facility] [address] [id number] [place] [address] June, [facility] [place] [facility] [address] [id number] [place] [address] May, [facility] [place] [facility] [address] [id number] [place] [address] May, [facility] [place] [facility] [address] [id number] [place] [address] Apr, [facility] [place] [facility] [address] [id number] [place] [address] Apr, [facility] [place] [facility] [address] [id number] [place] [address] Mar, [facility] [place] [facility] [address] [id number] [place] [address] Mar, [facility] [place] [facility] [address] [id number] [place] [address] Feb, [facility] [place] [facility] [address] [id number] [place] [address] Feb, [facility] [place] [facility] [address] [id number] [place] [address] Feb, [facility] [place] [facility] [address] [id number] [place] [address] Feb, [facility] [place] [facility] [id number] [place] [address] Feb, [facility] [place] [facility] [address] [id number] [place] [address] Feb, [facility] [place] [facility] [id number] [place] [address] Feb, [facility] [place] [facility] [address] [id number] [place] [address] 14 Feb, 2012 [facility] [place] [facility] [address] [id number] [place] [address] Feb, [facility] [place] [facility] [address] [id number] [place] [address] Jan, [facility] [place] [facility] [address] [id number] [place] [address] Jan, [facility] [place] [facility] [address] [id number] [place] [address] Jan, [facility] [place] [facility] [address] [id number] [place] [address] Jan, [facility] [place] [facility] [address] [id number] [place] [address] Dec, [facility] [place] [facility] [id number] [place] [address] Dec, [facility] [place] [facility] [address] [id number] [place] [address] Dec, [facility] [place] [facility] [id number] [place] [address] Dec, [facility] [place] [facility] [address] [id number] [place] [address] Oct, [facility] [place] [facility] [address] [id number] [place] [address] Sep, [facility] [place] [facility] [address] [id number] [place] [address] Sep, [facility] [place] [facility] [address] [id number] [place] [address] Aug, [facility] [place] [facility] [address] [id number] [place] [address] Jul, [facility] [place] [facility] [address] [id number] [place] [address] June, [facility] [place] [facility] [address] [id number] [place] [address] June, [facility] [address] [id number] [place] [address] May, [facility] [address] [id number] [place] [address] Apr, [facility] [address] [id number] [place] [address] Mar, [facility] [id number] [place] [address] Mar, [facility] [address] [id number] [place] [address] Feb, [facility] [id number] [place] [address] Dec, [facility] [address] [id number] [place] [address] Nov, [facility] [id number] [place] [address] Sep, [facility] [address] [id number] [place] [address] Aug, IMMUNIZATIONS No Known Immunizations SOCIAL HISTORY [...]
--- OUTSIDE RECORDS SUMMARY | 2019-07-02 15:42 | XMS REPORT ---
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 Name Role Phone HUMA LOZOYA Unavailable PROBLEMS Type Condition ICD9-CM Code [id number] Code Onset Dates Condition S tatus SNOMED Code Problem Other and unspecified hyperlipidemia 272.4 Active 45199782 Problem Asthma J45.909 Active 182579954 Problem Alcoholism F10.20 Active 0196150 Problem Arthritis M19.90 Active 8400453 Problem Other chronic pain G89.29 Active 8 2457392 Problem Bipolar disorder F31.9 Active 137 12750 Problem Closed fracture of shaft of right fibula, unspecified fracture morphology, initial encounter S82.401A Active 59844683 Problem Major depressive disorder, single episode F32.9 Active 34970867 Problem Arthropathy, unspecified M12.9 Activ e [id number] ALLERGIES No Information ENCOUNTERS Encounter Location Date Diagnosis [place] [address] [address] Dec, Arthritis M19.90 ; Alcoholism F10.20 ; E ncounter for immunization Z23 and Breast cancer screening by mammogram Z12.[address] [address] Sep, [place] [address] [address] Sep, Arthropathy of right ankle M19.[address] [address] Aug, Pain in right ankle and joints of right foot M25.571 and Other chronic pain G89.29 [place] [address] [address] Jul, [place] [address] [address] Apr, [place] [address] [address] Apr, Injury of right ankle, initial encounter S99.911A and Encounter for immunization Z23 [facility] [address] [address] Dec, [place] [address] [address] Nov, Pain in right ankle and joints of right foot M25.571 ; Other chronic pain G89.29 and Post-traumatic arthritis of right ankle M19.171 [place] [address] [address] Oct, Arthritis M19.90 [place] [address] [address] Aug, Arthritis M19.90 [place] [address] [address] Aug, [place] [address] [address] Jul, [place] [address] [address] June, Arthropathy, unspecified M12.9 [place] [address] [address] May, Asthma J45.909 and Major depressive diso rder, single episode F32.9 [place] [address] [address] 16 Mar, 2016 Closed fracture of shaft of right fibula , unspecified fracture morphology, initial encounter S82.401A [place] [address] [address] Feb, [place] [address] [address] Feb, [place] [address] [place] [id number] [place] [address] Nov, [facility] [address] [address] Nov, Bipolar disorder F31.9 ; Encounter for i mmunization Z23 and Asthma J45.909 [facility] [address] [address] Aug, [facility] [address] [address] May, [facility] [address] [address] Apr, [facility] [address] [address] Apr, [facility] [address] [address] Apr, URI (upper respiratory infection) J06.9 and Bipolar disorder F31.9 [facility] [address] [address] Feb, [facility] [address] [address] Feb, Asthma J45.909 and Alcoholism F10.20 [facility] [address] [address] Jan, [facility] [address] [address] Jan, [facility] [address] [address] Jan, [facility] [address] [address] Nov, Alcoholism F10.20 and Anxiety F41.9 [facility] [address] [address] Jul, Anxiety 300.00 and Arthropathy 716.90 [facility] [address] [place] [id number] [place] [address] Jul, [facility] [address] [id number] [place] [address] Jul, Anxiety state 300.00 [facility] [place] [facility] [address] [id number] [place] [address] May, [facility] [place] [facility] [address] [place] [id number] [place] [address] May, [facility] [place] [facility] [address] [place] [id number] [place] [address] Apr, [facility] [address] [place] [id number] [place] [address] Apr, [facility] [place] [facility] [address] [place] [id number] [place] [address] Mar, [facility] [place] [facility] [address] [place] [id number] [place] [address] Mar, [facility] [place] [facility] [address] [place] [id number] [place] [address] Feb, [facility] [place] [facility] [address] [place] [id number] [place] [address] Feb, [facility] [place] [facility] [address] [place] [id number] [place] [address] Feb, [facility] [place] [facility] [address] [place] [id number] [place] [address] Feb, [facility] [place] [facility] [address] [place] [id number] [place] [address] Jan, [facility] [place] [facility] [address] [place] [id number] [place] [address] Jan, [facility] [place] [facility] [address] [place] [id number] [place] [address] Jan, [facility] [place] [facility] [address] [place] [id number] [place] [address] Jan, [facility] [place] [facility] [address] [place] [id number] [place] [address] Nov, 2013 [facility] [place] [facility] [address] [facility] [id number] [place] [address] Nov, [facility] [place] [facility] [address] [facility] [id number] [place] [address] Nov, 2013 [facility] [place] [facility] [address] [id number] [place] [address] Nov, [facility] [place] [facility] [address] [facility] [id number] [place] [address] Nov, [facility] [place] [facility] [address] [facility] [id number] [place] [address] Nov, [facility] [place] [facility] [address] [id number] [place] [address] Nov, 2013 [facility] [place] [facility] [address] [id number] [place] [address] Nov, 2013 [facility] [place] [facility] [address] [id number] [place] [address] Nov, 2013 [facility] [place] [facility] [address] [facility] [id number] [place] [address] Nov, 2013 [facility] [place] [facility] [address] [id number] [place] [address] Nov, 2013 [facility] [place] [facility] [address] [id number] [place] [address] Nov, 2013 [facility] [place] [facility] [address] [id number] [place] [address] Nov, 2013 [facility] [place] [facility] [address] [facility] [id number] [place] [address] 30 Oct, 2013 [facility] [place] [facility] [address] [facility] [id number] [place] [address] 30 Sep, 2013 [facility] [place] [facility] [address] [facility] [id number] [place] [address] Oct, 2013 [facility] [place] [facility] [address] [id number] [place] [address] Oct, 2013 [facility] [place] [facility] [address] [id number] [place] [address] 08 Oct, 2013 [facility] [place] [facility] [address] [id number] [place] [address] Oct, 2013 [facility] [place] [facility] [address] [id number] [place] [address] Oct, 2013 [facility] [place] [facility] [address] [id number] [place] [address] Oct, 2013 [facility] [place] [facility] [address] [id number] [place] [address] Oct, 2013 [facility] [place] [facility] [address] [id number] [place] [address] Oct, 2013 [facility] [place] [facility] [address] [id number] [place] [address] Oct, 2013 [facility] [place] [facility] [address] [id number] [place] [address] Oct, 2013 [facility] [place] [facility] [address] [id number] [place] [address] Sep, [facility] [place] [facility] [address] [id number] [place] [address] Sep, [facility] [place] [facility] [address] [id number] [place] [address] Sep, [facility] [place] [facility] [address] [id number] [place] [address] Sep, [facility] [place] [facility] [address] [id number] [place] [address] Sep, [facility] [place] [facility] [address] [id number] [place] [address] Sep, [facility] [place] [facility] [address] [id number] [place] [address] Sep, [facility] [place] [facility] [address] [id number] [place] [address] Sep, [facility] [place] [facility] [address] [id number] [place] [address] Aug, [facility] [place] [facility] [address] [id number] [place] [address] Aug, [facility] [place] [facility] [address] [id number] [place] [address] Aug, [facility] [place] [facility] [address] [id number] [place] [address] Aug, [facility] [place] [facility] [address] [id number] [place] [address] Jul, [facility] [place] [facility] [address] [id number] [place] [address] Jul, [facility] [place] [facility] [address] [id number] [place] [address] Jul, [facility] [place] [facility] [address] [id number] [place] [address] Jul, [facility] [place] [facility] [address] [id number] [place] [address] Jul, [facility] [place] [facility] [address] [id number] [place] [address] Jul, [facility] [place] [facility] [address] [id number] [place] [address] June, [facility] [place] [facility] [address] [id number] [place] [address] June, [facility] [place] [facility] [address] [id number] [place] [address] June, [facility] [place] [facility] [address] [id number] [place] [address] June, [facility] [place] [facility] [address] [id number] [place] [address] June, [facility] [place] [facility] [address] [id number] [place] [address] June, [facility] [place] [facility] [address] [id number] [place] [address] May, [facility] [place] [facility] [address] [id number] [place] [address] May, [facility] [place] [facility] [address] [facility] [id number] [facility] [place] [address] May, [facility] [place] [facility] [address] [facility] [id number] [place] [address] May, [facility] [place] [facility] [address] [facility] [id number] [place] [address] May, [facility] [place] [facility] [address] [facility] [id number] [place] [address] May, [facility] [place] [facility] [address] [facility] [id number] [facility] [place] [address] May, [facility] [place] [facility] [address] [facility] [id number] [place] [address] May, [facility] [place] [facility] [address] [id number] [place] [address] May, [facility] [place] [facility] [address] [id number] [facility] [place] [address] May, [facility] [place] [facility] [address] [facility] [id number] [place] [address] Apr, [facility] [place] [facility] [address] [id number] [facility] [place] [address] Apr, [facility] [place] [facility] [address] [id number] [place] [address] Apr, [facility] [place] [facility] [address] [id number] [place] [address] 10 Apr, 2013 [facility] [place] [facility] [address] [facility] [id number] [place] [address] 10 Apr, 2013 [facility] [place] [facility] [address] [facility] [id number] [place] [address] Apr, [facility] [place] [facility] [address] [facility] [id number] [place] [address] Apr, [facility] [place] [facility] [address] [id number] [place] [address] Apr, [facility] [place] [facility] [address] [id number] [facility] [place] [address] Apr, [facility] [place] [facility] [address] [facility] [id number] [place] [address] Apr, [facility] [place] [facility] [address] [id number] [place] [address] Apr, [facility] [place] [facility] [address] [id number] [place] [address] Apr, [facility] [place] [facility] [address] [id number] [place] [address] Mar, [facility] [place] [facility] [address] [id number] [place] [address] Mar, [facility] [place] [facility] [address] [id number] [place] [address] Mar, [facility] [place] [facility] [address] [id number] [place] [address] Mar, [facility] [place] [facility] [address] [id number] [place] [address] Feb, [facility] [place] [facility] [address] [id number] [place] [address] Feb, [facility] [place] [facility] [address] [id number] [place] [address] Feb, [facility] [place] [facility] [address] [id number] [place] [address] Feb, [facility] [place] [facility] [address] [id number] [place] [address] Feb, [facility] [place] [facility] [address] [id number] [place] [address] Feb, [facility] [place] [facility] [address] [id number] [place] [address] Feb, [facility] [place] [facility] [address] [id number] [place] [address] Feb, [facility] [place] [facility] [address] [id number] [place] [address] Feb, [facility] [place] [facility] [address] [id number] [place] [address] Feb, [facility] [place] [facility] [address] [id number] [place] [address] Jan, [facility] [place] [facility] [address] [id number] [place] [address] Jan, [facility] [place] [facility] [address] [id number] [place] [address] Jan, [facility] [place] [facility] [address] [id number] [place] [address] Jan, [facility] [place] [facility] [address] [id number] [place] [address] Jan, [facility] [place] [facility] [address] [id number] [place] [address] Jan, [facility] [place] [facility] [address] [id number] [place] [address] Jan, [facility] [place] [facility] [address] [id number] [place] [address] Jan, [facility] [place] [facility] [address] [id number] [place] [address] Jan, [facility] [place] [facility] [address] [id number] [place] [address] Dec, [facility] [place] [facility] [address] [id number] [place] [address] Dec, [facility] [place] [facility] [address] [id number] [place] [address] Dec, [facility] [place] [facility] [address] [id number] [place] [address] Dec, [facility] [place] [facility] [address] [id number] [place] [address] Nov, [facility] [place] [facility] [address] [id number] [place] [address] Nov, [facility] [place] [facility] [address] [id number] [place] [address] Nov, [facility] [place] [facility] [address] [facility] [id number] [facility] [place] [address] Nov, [facility] [place] [facility] [address] [facility] [id number] [facility] [place] [address] Nov, [facility] [place] [facility] [address] [id number] [facility] [place] [address] Nov, [facility] [place] [facility] [address] [facility] [id number] [facility] [place] [address] Oct, [facility] [place] [facility] [address] [facility] [id number] [facility] [place] [address] Oct, [facility] [place] [facility] [address] [id number] [place] [address] Sep, [facility] [place] [facility] [address] [id number] [place] [address] Sep, [facility] [place] [facility] [address] [id number] [place] [address] Sep, [facility] [place] [facility] [address] [id number] [place] [address] Sep, [facility] [place] [facility] [address] [id number] [place] [address] Aug, [facility] [place] [facility] [address] [id number] [place] [address] Aug, [facility] [place] [facility] [address] [id number] [place] [address] Aug, [facility] [place] [facility] [address] [facility] [id number] [place] [address] Jul, [facility] [place] [facility] [address] [id number] [place] [address] Jul, [facility] [place] [facility] [address] [id number] [place] [address] Jul, [facility] [place] [facility] [address] [id number] [place] [address] Jul, [facility] [place] [facility] [address] [id number] [place] [address] June, [facility] [place] [facility] [address] [facility] [id number] [place] [address] June, [facility] [place] [facility] [address] [id number] [place] [address] May, [facility] [place] [facility] [address] [id number] [place] [address] May, [facility] [place] [facility] [address] [id number] [place] [address] Apr, [facility] [place] [facility] [address] [id number] [place] [address] Apr, [facility] [place] [facility] [address] [id number] [place] [address] Mar, [facility] [place] [facility] [address] [id number] [place] [address] Mar, [facility] [place] [facility] [address] [id number] [place] [address] Feb, [facility] [place] [facility] [address] [id number] [place] [address] 24 Feb, 2012 [facility] [place] [facility] [address] [id number] [place] [address] Feb, [facility] [place] [facility] [address] [id number] [place] [address] Feb, [facility] [place] [facility] [address] [id number] [place] [address] Feb, [facility] [place] [facility] [address] [id number] [place] [address] 16 Feb, 2012 [facility] [place] [facility] [address] [id number] [place] [address] 16 Feb, 2012 [facility] [place] [facility] [address] [id number] [place] [address] 14 Feb, 2012 [facility] [address] [id number] [place] [address] Feb, [facility] [address] [id number] [place] [address] Jan, [facility] [address] [id number] [place] [address] Jan, [facility] [address] [id number] [place] [address] Jan, [facility] [address] [id number] [place] [address] Jan, [facility] [address] [id number] [place] [address] Dec, [facility] [address] [id number] [place] [address] Dec, [facility] [address] [id number] [place] [address] Dec, [facility] [id number] [place] [address] Dec, [facility] [address] [id number] [place] [address] Oct, [facility] [id number] [place] [address] Sep, [facility] [address] [id number] [place] [address] Sep, [facility] [address] [id number] [place] [address] Aug, [facility] [address] [id number] [place] [address] Jul, [facility] [address] [id number] [place] [address] June, [facility] [address] [id number] [place] [address] June, [facility] [address] [id number] [place] [address] May, [facility] [address] [id number] [place] [address] Apr, [facility] [address] [id number] [place] [address] Mar, [facility] [address] [id number] [place] [address] Mar, [facility] [address] [id number] [place] [address] Feb, [facility] [address] [id number] [place] [address] Dec, [facility] [address] [id number] [place] [address] Nov, [facility] [address] [id number] [place] [address] Sep, [facility] [address] [id number] [place] [address] Aug, IMMUNIZATIONS No Known Immunizations SOCIAL HISTORY [...]
--- OUTSIDE RECORDS SUMMARY | 2019-07-02 15:42 | XMS REPORT ---
Author Author Madina LOZOYA Organization [facility] Address [address] [place] [address] Care Team Providers Care Faculty Research Assistant Name Role Phone HUMA LOZOYA Unavailable PROBLEMS Type Condition ICD9-CM Code NGW78-TR Code Onset Dates Condition S tatus SNOMED Code Problem Other and unspecified hyperlipidemia 272.4 Active 62502411 Problem Asthma J45.909 Active 740413661 Problem Alcoholism F10.20 Active 9898136 Problem Arthritis M19.90 Active 3983746 Problem Other chronic pain G89.29 Active 8 5093749 Problem Bipolar disorder F31.9 Active 137 93595 Problem Closed fracture of shaft of right fibula, unspecified fracture morphology, initial encounter S82.401A Active 51406159 Problem Major depressive disorder, single episode F32.9 Active 36460245 Problem Arthropathy, unspecified M12.9 Activ e [id number] ALLERGIES No Information ENCOUNTERS Encounter Location Date Diagnosis [place] [address] [address] Dec, Arthritis M19.90 ; Alcoholism F10.20 ; E ncounter for immunization Z23 and Breast cancer screening by mammogram Z12.[address] [address] Sep, [place] [address] [address] Sep, Arthropathy of right ankle M19.[address] [address] Aug, Pain in right ankle and joints of right foot M25.571 and Other chronic pain G89.29 [place] [address] [address] Jul, [place] [address] [address] Apr, [place] [address] [address] Apr, Injury of right ankle, initial encounter S99.911A and Encounter for immunization Z23 [facility] [address] [address] Dec, [place] [address] [address] Nov, Pain in right ankle and joints of right foot M25.571 ; Other chronic pain G89.29 and Post-traumatic arthritis of right ankle M19.171 [place] [address] [address] Oct, Arthritis M19.90 [place] [address] [address] Aug, Arthritis M19.90 [place] [address] [address] Aug, [place] [address] [address] Jul, [place] [address] [address] June, Arthropathy, unspecified M12.9 [place] [address] [address] May, Asthma J45.909 and Major depressive diso rder, single episode F32.9 [place] [address] [address] 16 Mar, 2016 Closed fracture of shaft of right fibula , unspecified fracture morphology, initial encounter S82.401A [place] [address] [address] Feb, [place] [address] [address] Feb, [place] [address] [place] [id number] [place] [address] Nov, [facility] [address] [address] Nov, Bipolar disorder F31.9 ; Encounter for i mmunization Z23 and Asthma J45.909 [facility] [address] [address] Aug, [facility] [address] [address] May, [facility] [address] [address] Apr, [facility] [address] [address] Apr, [facility] [address] [address] Apr, URI (upper respiratory infection) J06.9 and Bipolar disorder F31.9 [facility] [address] [address] Feb, [facility] [address] [address] Feb, Asthma J45.909 and Alcoholism F10.20 [facility] [address] [address] Jan, [facility] [address] [address] Jan, [facility] [address] [address] Jan, [facility] [address] [address] Nov, Alcoholism F10.20 and Anxiety F41.9 [facility] [address] [address] Jul, Anxiety 300.00 and Arthropathy 716.90 [facility] [address] [place] [id number] [place] [address] Jul, [facility] [address] [id number] [place] [address] Jul, Anxiety state 300.00 [facility] [place] [facility] [address] [id number] [place] [address] May, [facility] [place] [facility] [address] [place] [id number] [place] [address] May, [facility] [place] [facility] [address] [place] [id number] [place] [address] Apr, [facility] [address] [place] [id number] [place] [address] Apr, [facility] [place] [facility] [address] [place] [id number] [place] [address] Mar, [facility] [place] [facility] [address] [place] [id number] [place] [address] Mar, [facility] [place] [facility] [address] [place] [id number] [place] [address] Feb, [facility] [place] [facility] [address] [place] [id number] [place] [address] Feb, [facility] [place] [facility] [address] [place] [id number] [place] [address] Feb, [facility] [place] [facility] [address] [place] [id number] [place] [address] Feb, [facility] [place] [facility] [address] [place] [id number] [place] [address] Jan, [facility] [place] [facility] [address] [place] [id number] [place] [address] Jan, [facility] [place] [facility] [address] [place] [id number] [place] [address] Jan, [facility] [place] [facility] [address] [place] [id number] [place] [address] Jan, [facility] [place] [facility] [address] [place] [id number] [place] [address] Nov, 2013 [facility] [place] [facility] [address] [facility] [id number] [place] [address] Nov, [facility] [place] [facility] [address] [facility] [id number] [place] [address] Nov, 2013 [facility] [place] [facility] [address] [id number] [place] [address] Nov, [facility] [place] [facility] [address] [facility] [id number] [place] [address] Nov, [facility] [place] [facility] [address] [facility] [id number] [place] [address] Nov, [facility] [place] [facility] [address] [id number] [place] [address] Nov, 2013 [facility] [place] [facility] [address] [id number] [place] [address] Nov, 2013 [facility] [place] [facility] [address] [id number] [place] [address] Nov, 2013 [facility] [place] [facility] [address] [facility] [id number] [place] [address] Nov, 2013 [facility] [place] [facility] [address] [id number] [place] [address] Nov, 2013 [facility] [place] [facility] [address] [id number] [place] [address] Nov, 2013 [facility] [place] [facility] [address] [id number] [place] [address] Nov, 2013 [facility] [place] [facility] [address] [facility] [id number] [place] [address] 30 Oct, 2013 [facility] [place] [facility] [address] [facility] [id number] [place] [address] 30 Sep, 2013 [facility] [place] [facility] [address] [facility] [id number] [place] [address] Oct, 2013 [facility] [place] [facility] [address] [id number] [place] [address] Oct, 2013 [facility] [place] [facility] [address] [id number] [place] [address] 08 Oct, 2013 [facility] [place] [facility] [address] [id number] [place] [address] Oct, 2013 [facility] [place] [facility] [address] [id number] [place] [address] Oct, 2013 [facility] [place] [facility] [address] [id number] [place] [address] Oct, 2013 [facility] [place] [facility] [address] [id number] [place] [address] Oct, 2013 [facility] [place] [facility] [address] [id number] [place] [address] Oct, 2013 [facility] [place] [facility] [address] [id number] [place] [address] Oct, 2013 [facility] [place] [facility] [address] [id number] [place] [address] Oct, 2013 [facility] [place] [facility] [address] [id number] [place] [address] Sep, [facility] [place] [facility] [address] [id number] [place] [address] Sep, [facility] [place] [facility] [address] [id number] [place] [address] Sep, [facility] [place] [facility] [address] [id number] [place] [address] Sep, [facility] [place] [facility] [address] [id number] [place] [address] Sep, [facility] [place] [facility] [address] [id number] [place] [address] Sep, [facility] [place] [facility] [address] [id number] [place] [address] Sep, [facility] [place] [facility] [address] [id number] [place] [address] Sep, [facility] [place] [facility] [address] [id number] [place] [address] Aug, [facility] [place] [facility] [address] [id number] [place] [address] Aug, [facility] [place] [facility] [address] [id number] [place] [address] Aug, [facility] [place] [facility] [address] [id number] [place] [address] Aug, [facility] [place] [facility] [address] [id number] [place] [address] Jul, [facility] [place] [facility] [address] [id number] [place] [address] Jul, [facility] [place] [facility] [address] [id number] [place] [address] Jul, [facility] [place] [facility] [address] [id number] [place] [address] Jul, [facility] [place] [facility] [address] [id number] [place] [address] Jul, [facility] [place] [facility] [address] [id number] [place] [address] Jul, [facility] [place] [facility] [address] [id number] [place] [address] June, [facility] [place] [facility] [address] [id number] [place] [address] June, [facility] [place] [facility] [address] [id number] [place] [address] June, [facility] [place] [facility] [address] [id number] [place] [address] June, [facility] [place] [facility] [address] [id number] [place] [address] June, [facility] [place] [facility] [address] [id number] [place] [address] June, [facility] [place] [facility] [address] [id number] [place] [address] May, [facility] [place] [facility] [address] [id number] [place] [address] May, [facility] [place] [facility] [address] [facility] [id number] [facility] [place] [address] May, [facility] [place] [facility] [address] [facility] [id number] [place] [address] May, [facility] [place] [facility] [address] [facility] [id number] [place] [address] May, [facility] [place] [facility] [address] [facility] [id number] [place] [address] May, [facility] [place] [facility] [address] [facility] [id number] [facility] [facility] [place] [address] May, [facility] [place] [facility] [address] [facility] [id number] [place] [address] May, [facility] [place] [facility] [address] [id number] [place] [address] May, [facility] [place] [facility] [address] [id number] [facility] [facility] [place] [address] May, [facility] [place] [facility] [address] [facility] [id number] [place] [address] Apr, [facility] [place] [facility] [address] [id number] [facility] [facility] [place] [address] Apr, [facility] [place] [facility] [address] [id number] [place] [address] Apr, [facility] [place] [facility] [address] [id number] [place] [address] 10 Apr, 2013 [facility] [place] [facility] [address] [facility] [id number] [place] [address] 10 Apr, 2013 [facility] [place] [facility] [address] [facility] [id number] [place] [address] Apr, [facility] [place] [facility] [address] [facility] [id number] [place] [address] Apr, [facility] [place] [facility] [address] [id number] [place] [address] Apr, [facility] [place] [facility] [address] [id number] [facility] [facility] [place] [address] Apr, [facility] [place] [facility] [address] [facility] [id number] [place] [address] Apr, [facility] [place] [facility] [address] [id number] [place] [address] Apr, [facility] [place] [facility] [address] [id number] [place] [address] Apr, [facility] [place] [facility] [address] [id number] [place] [address] Mar, [facility] [place] [facility] [address] [id number] [place] [address] Mar, [facility] [place] [facility] [address] [id number] [place] [address] Mar, [facility] [place] [facility] [address] [id number] [place] [address] Mar, [facility] [place] [facility] [address] [id number] [place] [address] Feb, [facility] [place] [facility] [address] [id number] [place] [address] Feb, [facility] [place] [facility] [address] [id number] [place] [address] Feb, [facility] [place] [facility] [address] [id number] [place] [address] Feb, [facility] [place] [facility] [address] [id number] [place] [address] Feb, [facility] [place] [facility] [address] [id number] [place] [address] Feb, [facility] [place] [facility] [address] [id number] [place] [address] Feb, [facility] [place] [facility] [address] [id number] [place] [address] Feb, [facility] [place] [facility] [address] [id number] [place] [address] Feb, [facility] [place] [facility] [address] [id number] [place] [address] Feb, [facility] [place] [facility] [address] [id number] [place] [address] Jan, [facility] [place] [facility] [address] [id number] [place] [address] Jan, [facility] [place] [facility] [address] [id number] [place] [address] Jan, [facility] [place] [facility] [address] [id number] [place] [address] Jan, [facility] [place] [facility] [address] [id number] [place] [address] Jan, [facility] [place] [facility] [address] [id number] [place] [address] Jan, [facility] [place] [facility] [address] [id number] [place] [address] Jan, [facility] [place] [facility] [address] [id number] [place] [address] Jan, [facility] [place] [facility] [address] [id number] [place] [address] Jan, [facility] [place] [facility] [address] [id number] [place] [address] Dec, [facility] [place] [facility] [address] [id number] [place] [address] Dec, [facility] [place] [facility] [address] [id number] [place] [address] Dec, [facility] [place] [facility] [address] [id number] [place] [address] Dec, [facility] [place] [facility] [address] [id number] [place] [address] Nov, [facility] [place] [facility] [address] [id number] [place] [address] Nov, [facility] [place] [facility] [address] [id number] [place] [address] Nov, [facility] [place] [facility] [address] [facility] [id number] [facility] [facility] [place] [address] Nov, [facility] [place] [facility] [address] [facility] [id number] [facility] [facility] [place] [address] Nov, [facility] [place] [facility] [address] [id number] [facility] [facility] [place] [address] Nov, [facility] [place] [facility] [address] [facility] [id number] [facility] [facility] [place] [address] Oct, [facility] [place] [facility] [address] [facility] [id number] [facility] [facility] [place] [address] Oct, [facility] [place] [facility] [address] [id number] [place] [address] Sep, [facility] [place] [facility] [address] [id number] [place] [address] Sep, [facility] [place] [facility] [address] [id number] [place] [address] Sep, [facility] [place] [facility] [address] [id number] [place] [address] Sep, [facility] [place] [facility] [address] [id number] [place] [address] Aug, [facility] [place] [facility] [address] [id number] [place] [address] Aug, [facility] [place] [facility] [address] [id number] [place] [address] Aug, [facility] [place] [facility] [address] [facility] [id number] [place] [address] Jul, [facility] [place] [facility] [address] [id number] [place] [address] Jul, [facility] [place] [facility] [address] [id number] [place] [address] Jul, [facility] [place] [facility] [address] [id number] [place] [address] Jul, [facility] [place] [facility] [address] [id number] [place] [address] June, [facility] [place] [facility] [address] [facility] [id number] [place] [address] June, [facility] [place] [facility] [address] [id number] [place] [address] May, [facility] [place] [facility] [address] [id number] [place] [address] May, [facility] [place] [facility] [address] [id number] [place] [address] Apr, [facility] [place] [facility] [address] [id number] [place] [address] Apr, [facility] [place] [facility] [address] [id number] [place] [address] Mar, [facility] [place] [facility] [address] [id number] [place] [address] Mar, [facility] [place] [facility] [address] [id number] [place] [address] Feb, [facility] [place] [facility] [address] [id number] [place] [address] 24 Feb, 2012 [facility] [place] [facility] [address] [id number] [place] [address] Feb, [facility] [place] [facility] [address] [id number] [place] [address] Feb, [facility] [place] [facility] [address] [id number] [place] [address] Feb, [facility] [place] [facility] [address] [id number] [place] [address] 16 Feb, 2012 [facility] [place] [facility] [address] [id number] [place] [address] 16 Feb, 2012 [facility] [place] [facility] [address] [id number] [place] [address] 14 Feb, 2012 [facility] [place] [facility] [address] [id number] [place] [address] Feb, [facility] [address] [id number] [place] [address] Jan, [facility] [place] [facility] [address] [id number] [place] [address] Jan, [facility] [place] [facility] [address] [id number] [place] [address] Jan, [facility] [place] [facility] [address] [id number] [place] [address] Jan, [facility] [place] [facility] [address] [id number] [place] [address] Dec, [facility] [place] [facility] [address] [id number] [place] [address] Dec, [facility] [place] [facility] [address] [id number] [place] [address] Dec, [facility] [place] [facility] [id number] [place] [address] Dec, [facility] [place] [facility] [address] [id number] [place] [address] Oct, [facility] [place] [facility] [id number] [place] [address] Sep, [facility] [place] [facility] [address] [id number] [place] [address] Sep, [facility] [place] [facility] [address] [id number] [place] [address] Aug, [facility] [place] [facility] [address] [id number] [place] [address] Jul, [facility] [place] [facility] [address] [id number] [place] [address] June, [facility] [place] [facility] [address] [id number] [place] [address] June, [facility] [place] [facility] [address] [id number] [place] [address] May, [facility] [address] [id number] [place] [address] Apr, [facility] [address] [id number] [place] [address] Mar, [facility] [address] [id number] [place] [address] Mar, [facility] [address] [id number] [place] [address] Feb, [facility] [address] [id number] [place] [address] Dec, [facility] [address] [id number] [place] [address] Nov, [facility] [address] [id number] [place] [address] Sep, [facility] [address] [id number] [place] [address] Aug, IMMUNIZATIONS No Known Immunizations SOCIAL HISTORY [...]
--- OUTSIDE RECORDS SUMMARY | 2019-07-02 15:43 | XMS REPORT ---
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 Name Role Phone APRIL Shelton Unavailable PROBLEMS Type Condition ICD9-CM Code QGG23-MY Code Onset Dates Condition S tatus SNOMED Code Problem Other and unspecified hyperlipidemia 272.4 Active 64748329 Problem Asthma J45.909 Active 933646098 Problem Alcoholism F10.20 Active 4703639 Problem Arthritis M19.90 Active 6282573 Problem Other chronic pain G89.29 Active 8 0008471 Problem Bipolar disorder F31.9 Active 137 09775 Problem Closed fracture of shaft of right fibula, unspecified fracture morphology, initial encounter S82.401A Active 43851288 Problem Major depressive disorder, single episode F32.9 Active 02422745 Problem Arthropathy, unspecified M12.9 Activ e [id number] ALLERGIES No Information ENCOUNTERS Encounter Location Date Diagnosis [place] [address] [address] Dec, Arthritis M19.90 ; Alcoholism F10.20 ; E ncounter for immunization Z23 and Breast cancer screening by mammogram Z12.31 [place] [address] [address] Sep, [place] [address] [address] Sep, Arthropathy of right ankle M19.071 [place] [address] [address] Aug, Pain in right ankle and joints of right foot M25.571 and Other chronic pain G89.29 [place] [address] [address] Jul, [place] [address] [address] Apr, [place] [address] [address] Apr, Injury of right ankle, initial encounter S99.911A and Encounter for immunization Z23 [place] [address] [address] Dec, [place] [address] [address] Nov, Pain in right ankle and joints of right foot M25.571 ; Other chronic pain G89.29 and Post-traumatic arthritis of right ankle M19.171 [place] [address] [address] Oct, Arthritis M19.90 [place] [address] [address] Aug, Arthritis M19.90 [place] [address] [address] Aug, [place] [address] [address] Jul, [place] [address] [address] June, Arthropathy, unspecified M12.9 [place] [address] [address] May, Asthma J45.909 and Major depressive diso rder, single episode F32.9 [place] [address] [address] Mar, Closed fracture of shaft of right fibula , unspecified fracture morphology, initial encounter S82.401A [place] [address] [address] Feb, [place] [address] [address] Feb, [facility] [address] [address] Nov, [facility] [address] [address] Nov, Bipolar disorder F31.9 ; Encounter for i mmunization Z23 and Asthma J45.909 [facility] [address] [address] Aug, [facility] [address] [address] May, [facility] [address] [address] Apr, [facility] [address] [address] Apr, [facility] [address] [address] Apr, URI (upper respiratory infection) J06.9 and Bipolar disorder F31.9 [facility] [address] [address] Feb, [facility] [address] [address] Feb, Asthma J45.909 and Alcoholism F10.20 [facility] [address] [address] Jan, [facility] [address] [address] Jan, [facility] [address] [address] Jan, [facility] [address] [address] Nov, Alcoholism F10.20 and Anxiety F41.9 [facility] [address] [address] Jul, Anxiety 300.00 and Arthropathy 716.90 [facility] [address] [place] [id number] [place] [address] Jul, [facility] [address] [place] [id number] [place] [address] Jul, Anxiety state 300.00 [facility] [address] [id number] [place] [address] May, [facility] [address] [place] [id number] [place] [address] May, [facility] [place] [facility] [address] [place] [address] [id number] [place] [address] Apr, [facility] [address] [place] [address] [id number] [place] [address] Apr, [facility] [place] [facility] [address] [address] [id number] [place] [address] Mar, [facility] [address] [place] [address] [id number] [place] [address] Mar, [facility] [id number] [place] [address] Feb, [facility] [address] [address] [id number] [place] [address] Feb, [facility] [place] [facility] [address] [place] [address] [id number] [place] [address] Feb, [facility] [address] [place] [address] [id number] [place] [address] Feb, [facility] [place] [facility] [address] [place] [address] [id number] [place] [address] Jan, [facility] [place] [facility] [address] [place] [address] [id number] [place] [address] Jan, [facility] [place] [facility] [address] [place] [address] [id number] [place] [address] Jan, [facility] [place] [facility] [address] [facility] [id number] [place] [address] Jan, [facility] [place] [facility] [address] [place] [address] [id number] [place] [address] Nov, 2013 [facility] [place] [facility] [address] [facility] [id number] [place] [address] Nov, [facility] [place] [facility] [address] [facility] [id number] [place] [address] Nov, 2013 [facility] [place] [facility] [address] [id number] [place] [address] Nov, [facility] [place] [facility] [address] [facility] [id number] [place] [address] Nov, 2013 [facility] [place] [facility] [address] [facility] [id number] [place] [address] Nov, [facility] [place] [facility] [address] [id number] [place] [address] Nov, 2013 [facility] [place] [facility] [address] [id number] [place] [address] Nov, 2013 [facility] [place] [facility] [address] [id number] [place] [address] Nov, 2013 [facility] [place] [facility] [address] [id number] [place] [address] Nov, [facility] [place] [facility] [address] [id number] [place] [address] Nov, 2013 [facility] [place] [facility] [address] [id number] [place] [address] Nov, 2013 [facility] [place] [facility] [address] [id number] [place] [address] Nov, 2013 [facility] [place] [facility] [address] [facility] [id number] [place] [address] 30 Oct, 2013 [facility] [place] [facility] [address] [id number] [place] [address] 30 Sep, 2013 [facility] [place] [facility] [address] [id number] [place] [address] Oct, 2013 [facility] [place] [facility] [address] [id number] [place] [address] Oct, 2013 [facility] [place] [facility] [address] [id number] [place] [address] 08 Oct, 2013 [facility] [place] [facility] [address] [id number] [place] [address] Oct, 2013 [facility] [place] [facility] [address] [facility] [id number] [place] [address] Oct, 2013 [facility] [place] [facility] [address] [id number] [place] [address] Oct, 2013 [facility] [place] [facility] [address] [facility] [id number] [place] [address] Oct, 2013 [facility] [place] [facility] [address] [id number] [place] [address] Oct, 2013 [facility] [place] [facility] [address] [id number] [place] [address] Oct, 2013 [facility] [place] [facility] [address] [id number] [place] [address] Oct, 2013 [facility] [place] [facility] [address] [id number] [place] [address] Sep, 2013 [facility] [place] [facility] [address] [id number] [place] [address] Sep, [facility] [place] [facility] [address] [id number] [place] [address] Sep, [facility] [place] [facility] [address] [id number] [place] [address] Sep, 2013 [facility] [place] [facility] [address] [id number] [place] [address] Sep, [facility] [place] [facility] [address] [id number] [place] [address] Sep, [facility] [place] [facility] [address] [id number] [place] [address] Sep, [facility] [place] [facility] [address] [id number] [place] [address] Sep, [facility] [place] [facility] [address] [id number] [place] [address] Aug, [facility] [place] [facility] [address] [id number] [place] [address] Aug, [facility] [place] [facility] [address] [id number] [place] [address] Aug, [facility] [place] [facility] [address] [id number] [place] [address] Aug, [facility] [place] [facility] [address] [id number] [place] [address] Jul, [facility] [place] [facility] [address] [id number] [place] [address] Jul, [facility] [place] [facility] [address] [id number] [place] [address] Jul, [facility] [place] [facility] [address] [id number] [place] [address] Jul, [facility] [place] [facility] [address] [id number] [place] [address] Jul, [facility] [place] [facility] [address] [id number] [place] [address] Jul, [facility] [place] [facility] [address] [id number] [place] [address] June, [facility] [place] [facility] [address] [id number] [place] [address] June, [facility] [place] [facility] [address] [id number] [place] [address] June, [facility] [place] [facility] [address] [id number] [place] [address] June, [facility] [place] [facility] [address] [id number] [place] [address] June, [facility] [place] [facility] [address] [id number] [place] [address] June, [facility] [place] [facility] [address] [id number] [place] [address] May, [facility] [place] [facility] [address] [id number] [place] [address] May, [facility] [place] [facility] [address] [facility] [id number] [place] [address] May, [facility] [place] [facility] [address] [facility] [id number] [place] [address] May, [facility] [place] [facility] [address] [id number] [place] [address] May, [facility] [place] [facility] [address] [facility] [id number] [place] [address] May, [facility] [place] [facility] [address] [facility] [id number] [place] [address] May, [facility] [place] [facility] [address] [id number] [place] [address] May, [facility] [place] [facility] [address] [id number] [place] [address] May, [facility] [place] [facility] [address] [id number] [place] [address] May, [facility] [place] [facility] [address] [id number] [place] [address] Apr, [facility] [place] [facility] [address] [id number] [place] [address] Apr, [facility] [place] [facility] [address] [id number] [place] [address] Apr, [facility] [place] [facility] [address] [id number] [place] [address] Apr, [facility] [place] [facility] [address] [id number] [place] [address] Apr, [facility] [place] [facility] [address] [id number] [place] [address] Apr, [facility] [place] [facility] [address] [id number] [place] [address] Apr, [facility] [place] [facility] [address] [id number] [place] [address] Apr, [facility] [place] [facility] [address] [id number] [place] [address] Apr, [facility] [place] [facility] [address] [id number] [place] [address] Apr, [facility] [place] [facility] [address] [id number] [place] [address] Apr, [facility] [place] [facility] [address] [id number] [place] [address] Apr, [facility] [place] [facility] [address] [id number] [place] [address] Mar, [facility] [place] [facility] [address] [id number] [place] [address] Mar, [facility] [place] [facility] [address] [id number] [place] [address] Mar, [facility] [place] [facility] [address] [id number] [place] [address] Mar, [facility] [place] [facility] [address] [id number] [place] [address] Feb, [facility] [place] [facility] [address] [id number] [place] [address] Feb, [facility] [place] [facility] [address] [id number] [place] [address] Feb, [facility] [place] [facility] [address] [id number] [place] [address] Feb, [facility] [place] [facility] [address] [id number] [place] [address] Feb, [facility] [place] [facility] [address] [id number] [place] [address] Feb, [facility] [place] [facility] [address] [id number] [place] [address] Feb, [facility] [place] [facility] [address] [id number] [place] [address] Feb, [facility] [place] [facility] [address] [id number] [place] [address] Feb, [facility] [place] [facility] [address] [id number] [place] [address] Feb, [facility] [place] [facility] [address] [id number] [place] [address] Jan, [facility] [place] [facility] [address] [id number] [place] [address] Jan, [facility] [place] [facility] [address] [id number] [place] [address] Jan, [facility] [place] [facility] [address] [id number] [place] [address] Jan, [facility] [place] [facility] [address] [id number] [place] [address] Jan, [facility] [place] [facility] [address] [id number] [place] [address] Jan, [facility] [place] [facility] [address] [id number] [place] [address] Jan, [facility] [place] [facility] [address] [id number] [place] [address] Jan, [facility] [place] [facility] [address] [id number] [place] [address] Jan, [facility] [place] [facility] [address] [id number] [place] [address] Dec, [facility] [place] [facility] [address] [id number] [place] [address] Dec, [facility] [place] [facility] [address] [id number] [place] [address] Dec, [facility] [place] [facility] [address] [id number] [place] [address] Dec, [facility] [place] [facility] [address] [id number] [place] [address] Nov, [facility] [place] [facility] [address] [id number] [place] [address] Nov, [facility] [place] [facility] [address] [id number] [place] [address] 10 Nov, 2012 [facility] [place] [facility] [address] [facility] [id number] [place] [address] Nov, [facility] [place] [facility] [address] [facility] [id number] [place] [address] Nov, [facility] [place] [facility] [address] [id number] [place] [address] Nov, [facility] [place] [facility] [address] [facility] [id number] [place] [address] Oct, [facility] [place] [facility] [address] [facility] [id number] [place] [address] Oct, [facility] [place] [facility] [address] [id number] [place] [address] Sep, [facility] [place] [facility] [address] [id number] [place] [address] Sep, [facility] [place] [facility] [address] [id number] [place] [address] Sep, [facility] [place] [facility] [address] [facility] [id number] [place] [address] Sep, [facility] [place] [facility] [address] [id number] [place] [address] Aug, [facility] [place] [facility] [address] [id number] [place] [address] Aug, [facility] [place] [facility] [address] [id number] [place] [address] Aug, [facility] [place] [facility] [address] [facility] [id number] [place] [address] Jul, [facility] [place] [facility] [address] [id number] [place] [address] Jul, [facility] [place] [facility] [address] [id number] [place] [address] Jul, [facility] [place] [facility] [address] [id number] [place] [address] Jul, [facility] [place] [facility] [address] [id number] [place] [address] June, [facility] [place] [facility] [address] [id number] [place] [address] June, [facility] [place] [facility] [address] [id number] [place] [address] May, [facility] [place] [facility] [address] [id number] [place] [address] May, [facility] [place] [facility] [address] [id number] [place] [address] Apr, [facility] [place] [facility] [address] [id number] [place] [address] Apr, [facility] [place] [facility] [address] [id number] [place] [address] Mar, [facility] [place] [facility] [address] [id number] [place] [address] Mar, [facility] [place] [facility] [address] [id number] [place] [address] Feb, [facility] [place] [facility] [address] [id number] [place] [address] 24 Feb, 2012 [facility] [place] [facility] [address] [id number] [place] [address] Feb, [facility] [place] [facility] [address] [id number] [place] [address] Feb, [facility] [place] [facility] [address] [id number] [place] [address] 17 Feb, 2012 [facility] [place] [facility] [address] [id number] [place] [address] 16 Feb, 2012 [facility] [place] [facility] [address] [id number] [place] [address] 16 Feb, 2012 [facility] [place] [facility] [address] [id number] [place] [address] 14 Feb, 2012 [facility] [place] [facility] [address] [id number] [place] [address] Feb, [facility] [place] [facility] [address] [id number] [place] [address] Jan, [facility] [place] [facility] [address] [id number] [place] [address] Jan, [facility] [place] [facility] [address] [id number] [place] [address] Jan, [facility] [place] [facility] [address] [facility] [id number] [place] [address] Jan, [facility] [address] [facility] [id number] [place] [address] Dec, [facility] [address] [facility] [id number] [place] [address] Dec, [facility] [address] [facility] [id number] [place] [address] Dec, [facility] [address] [facility] [id number] [place] [address] Dec, [facility] [address] [facility] [id number] [place] [address] Oct, [facility] [address] [facility] [id number] [place] [address] Sep, [facility] [address] [facility] [id number] [place] [address] Sep, [facility] [address] [facility] [id number] [place] [address] Aug, [facility] [address] [facility] [id number] [place] [address] Jul, [facility] [address] [facility] [id number] [place] [address] June, [facility] [address] [facility] [id number] [place] [address] June, [facility] [address] [facility] [id number] [place] [address] May, [facility] [address] [facility] [id number] [place] [address] Apr, [facility] [id number] [place] [address] Mar, [facility] [id number] [place] [address] Mar, [facility] [address] [address] Feb, [facility] [address] [address] Dec, [facility] [id number] [place] [address] Nov, [facility] [id number] [place] [address] Sep, [facility] [id number] [place] [address] Aug, IMMUNIZATIONS No Known Immunizations SOCIAL HISTORY [...]
--- OUTSIDE RECORDS SUMMARY | 2019-07-02 15:43 | XMS REPORT ---
Author Author Madina Shelton Organization [facility] Address [address] [place] [address] Care Team Providers Care Operating System Designer Name Role Phone APRIL Shelton Unavailable PROBLEMS Type Condition ICD9-CM Code [id number] Code Onset Dates Condition S tatus SNOMED Code Problem Other and unspecified hyperlipidemia 272.4 Active 52838703 Problem Asthma J45.909 Active 020782515 Problem Alcoholism F10.20 Active 4036049 Problem Arthritis M19.90 Active 8000093 Problem Other chronic pain G89.29 Active 8 8998035 Problem Bipolar disorder F31.9 Active 137 26124 Problem Closed fracture of shaft of right fibula, unspecified fracture morphology, initial encounter S82.401A Active 38313656 Problem Major depressive disorder, single episode F32.9 Active 53699140 Problem Arthropathy, unspecified M12.9 Activ e [id number] ALLERGIES No Information ENCOUNTERS Encounter Location Date Diagnosis [place] [address] [address] Dec, Arthritis M19.90 ; Alcoholism F10.20 ; E ncounter for immunization Z23 and Breast cancer screening by mammogram Z12.31 [place] [address] [address] Sep, [place] [address] [address] Sep, Arthropathy of right ankle M19.071 [place] [address] [address] Aug, Pain in right ankle and joints of right foot M25.571 and Other chronic pain G89.29 [place] [address] [address] Jul, [place] [address] [address] Apr, [place] [address] [address] Apr, Injury of right ankle, initial encounter S99.911A and Encounter for immunization Z23 [place] [address] [address] Dec, [place] [address] [address] Nov, Pain in right ankle and joints of right foot M25.571 ; Other chronic pain G89.29 and Post-traumatic arthritis of right ankle M19.171 [place] [address] [address] Oct, Arthritis M19.90 [place] [address] [address] Aug, Arthritis M19.90 [place] [address] [address] Aug, [place] [address] [address] Jul, [place] [address] [address] June, Arthropathy, unspecified M12.9 [place] [address] [address] May, Asthma J45.909 and Major depressive diso rder, single episode F32.9 [place] [address] [address] Mar, Closed fracture of shaft of right fibula , unspecified fracture morphology, initial encounter S82.401A [place] [address] [address] Feb, [place] [address] [address] Feb, [facility] [address] [address] Nov, [facility] [address] [address] Nov, Bipolar disorder F31.9 ; Encounter for i mmunization Z23 and Asthma J45.909 [facility] [address] [address] Aug, [facility] [address] [address] May, [facility] [address] [address] Apr, [facility] [address] [address] Apr, [facility] [address] [address] Apr, URI (upper respiratory infection) J06.9 and Bipolar disorder F31.9 [facility] [address] [address] Feb, [facility] [address] [address] Feb, Asthma J45.909 and Alcoholism F10.20 [facility] [address] [address] Jan, [facility] [address] [address] Jan, [facility] [address] [address] Jan, [facility] [address] [address] Nov, Alcoholism F10.20 and Anxiety F41.9 [facility] [address] [address] Jul, Anxiety 300.00 and Arthropathy 716.90 [facility] [address] [place] [id number] [place] [address] Jul, [facility] [address] [place] [id number] [place] [address] Jul, Anxiety state 300.00 [facility] [address] [id number] [place] [address] May, [facility] [address] [place] [id number] [place] [address] May, [facility] [place] [facility] [address] [place] [id number] [place] [address] Apr, [facility] [address] [place] [id number] [place] [address] Apr, [facility] [place] [facility] [address] [place] [id number] [place] [address] Mar, [facility] [address] [place] [id number] [place] [address] Mar, [facility] [address] [place] [address] [id number] [place] [address] Feb, [facility] [address] [place] [address] [id number] [place] [address] Feb, [facility] [place] [facility] [address] [place] [address] [id number] [place] [address] Feb, [facility] [address] [place] [address] [id number] [place] [address] Feb, [facility] [place] [facility] [address] [place] [address] [id number] [place] [address] Jan, [facility] [place] [facility] [address] [place] [address] [id number] [place] [address] Jan, [facility] [place] [facility] [address] [place] [address] [id number] [place] [address] Jan, [facility] [place] [facility] [address] [id number] [place] [address] Jan, [facility] [place] [facility] [address] [place] [id number] [place] [address] Nov, 2013 [facility] [place] [facility] [address] [facility] [id number] [place] [address] Nov, [facility] [place] [facility] [address] [facility] [id number] [place] [address] Nov, 2013 [facility] [place] [facility] [address] [id number] [place] [address] Nov, [facility] [place] [facility] [address] [facility] [id number] [place] [address] Nov, 2013 [facility] [place] [facility] [address] [facility] [id number] [place] [address] Nov, [facility] [place] [facility] [address] [id number] [place] [address] Nov, 2013 [facility] [place] [facility] [address] [id number] [place] [address] Nov, 2013 [facility] [place] [facility] [address] [id number] [place] [address] Nov, 2013 [facility] [place] [facility] [address] [id number] [place] [address] Nov, [facility] [place] [facility] [address] [id number] [place] [address] Nov, 2013 [facility] [place] [facility] [address] [id number] [place] [address] Nov, 2013 [facility] [place] [facility] [address] [id number] [place] [address] Nov, 2013 [facility] [place] [facility] [address] [id number] [place] [address] 30 Oct, 2013 [facility] [place] [facility] [address] [id number] [place] [address] 30 Sep, 2013 [facility] [place] [facility] [address] [id number] [place] [address] Oct, 2013 [facility] [place] [facility] [address] [id number] [place] [address] Oct, 2013 [facility] [place] [facility] [address] [id number] [place] [address] 08 Oct, 2013 [facility] [place] [facility] [address] [id number] [place] [address] Oct, 2013 [facility] [place] [facility] [address] [facility] [id number] [place] [address] Oct, 2013 [facility] [place] [facility] [address] [id number] [place] [address] Oct, 2013 [facility] [place] [facility] [address] [facility] [id number] [place] [address] Oct, 2013 [facility] [place] [facility] [address] [id number] [place] [address] Oct, 2013 [facility] [place] [facility] [address] [id number] [place] [address] Oct, 2013 [facility] [place] [facility] [address] [id number] [place] [address] Oct, 2013 [facility] [place] [facility] [address] [id number] [place] [address] Sep, 2013 [facility] [place] [facility] [address] [id number] [place] [address] Sep, [facility] [place] [facility] [address] [id number] [place] [address] Sep, [facility] [place] [facility] [address] [id number] [place] [address] Sep, 2013 [facility] [place] [facility] [address] [id number] [place] [address] Sep, [facility] [place] [facility] [address] [id number] [place] [address] Sep, [facility] [place] [facility] [address] [id number] [place] [address] Sep, [facility] [place] [facility] [address] [id number] [place] [address] Sep, [facility] [place] [facility] [address] [id number] [place] [address] Aug, [facility] [place] [facility] [address] [id number] [place] [address] Aug, [facility] [place] [facility] [address] [id number] [place] [address] Aug, [facility] [place] [facility] [address] [id number] [place] [address] Aug, [facility] [place] [facility] [address] [id number] [place] [address] Jul, [facility] [place] [facility] [address] [id number] [place] [address] Jul, [facility] [place] [facility] [address] [id number] [place] [address] Jul, [facility] [place] [facility] [address] [id number] [place] [address] Jul, [facility] [place] [facility] [address] [id number] [place] [address] Jul, [facility] [place] [facility] [address] [id number] [place] [address] Jul, [facility] [place] [facility] [address] [id number] [place] [address] June, [facility] [place] [facility] [address] [id number] [place] [address] June, [facility] [place] [facility] [address] [id number] [place] [address] June, [facility] [place] [facility] [address] [id number] [place] [address] June, [facility] [place] [facility] [address] [id number] [place] [address] June, [facility] [place] [facility] [address] [id number] [place] [address] June, [facility] [place] [facility] [address] [id number] [place] [address] May, [facility] [place] [facility] [address] [id number] [place] [address] May, [facility] [place] [facility] [address] [facility] [id number] [facility] [place] [address] May, [facility] [place] [facility] [address] [facility] [id number] [place] [address] May, [facility] [place] [facility] [address] [id number] [facility] [place] [address] May, [facility] [place] [facility] [address] [facility] [id number] [place] [address] May, [facility] [place] [facility] [address] [facility] [id number] [facility] [place] [address] May, [facility] [place] [facility] [address] [id number] [place] [address] May, [facility] [place] [facility] [address] [id number] [facility] [place] [address] May, [facility] [place] [facility] [address] [id number] [facility] [place] [address] May, [facility] [place] [facility] [address] [id number] [place] [address] Apr, [facility] [place] [facility] [address] [id number] [place] [address] Apr, [facility] [place] [facility] [address] [id number] [place] [address] Apr, [facility] [place] [facility] [address] [id number] [place] [address] Apr, [facility] [place] [facility] [address] [id number] [facility] [place] [address] Apr, [facility] [place] [facility] [address] [id number] [place] [address] Apr, [facility] [place] [facility] [address] [id number] [place] [address] Apr, [facility] [place] [facility] [address] [id number] [place] [address] Apr, [facility] [place] [facility] [address] [id number] [place] [address] Apr, [facility] [place] [facility] [address] [id number] [place] [address] Apr, [facility] [place] [facility] [address] [id number] [place] [address] Apr, [facility] [place] [facility] [address] [id number] [place] [address] Apr, [facility] [place] [facility] [address] [id number] [place] [address] Mar, [facility] [place] [facility] [address] [id number] [place] [address] Mar, [facility] [place] [facility] [address] [id number] [place] [address] Mar, [facility] [place] [facility] [address] [id number] [place] [address] Mar, [facility] [place] [facility] [address] [id number] [place] [address] Feb, [facility] [place] [facility] [address] [id number] [place] [address] Feb, [facility] [place] [facility] [address] [id number] [place] [address] Feb, [facility] [place] [facility] [address] [id number] [place] [address] Feb, [facility] [place] [facility] [address] [id number] [place] [address] Feb, [facility] [place] [facility] [address] [id number] [place] [address] Feb, [facility] [place] [facility] [address] [id number] [place] [address] Feb, [facility] [place] [facility] [address] [id number] [place] [address] Feb, [facility] [place] [facility] [address] [id number] [place] [address] Feb, [facility] [place] [facility] [address] [id number] [place] [address] Feb, [facility] [place] [facility] [address] [id number] [place] [address] Jan, [facility] [place] [facility] [address] [id number] [place] [address] Jan, [facility] [place] [facility] [address] [id number] [place] [address] Jan, [facility] [place] [facility] [address] [id number] [place] [address] Jan, [facility] [place] [facility] [address] [id number] [place] [address] Jan, [facility] [place] [facility] [address] [id number] [place] [address] Jan, [facility] [place] [facility] [address] [id number] [place] [address] Jan, [facility] [place] [facility] [address] [id number] [place] [address] Jan, [facility] [place] [facility] [address] [id number] [place] [address] Jan, [facility] [place] [facility] [address] [id number] [place] [address] Dec, [facility] [place] [facility] [address] [id number] [place] [address] Dec, [facility] [place] [facility] [address] [id number] [place] [address] Dec, [facility] [place] [facility] [address] [id number] [place] [address] Dec, [facility] [place] [facility] [address] [id number] [place] [address] Nov, [facility] [place] [facility] [address] [id number] [place] [address] Nov, [facility] [place] [facility] [address] [id number] [place] [address] 10 Nov, 2012 [facility] [place] [facility] [address] [facility] [id number] [facility] [place] [address] Nov, [facility] [place] [facility] [address] [facility] [id number] [facility] [place] [address] Nov, [facility] [place] [facility] [address] [id number] [facility] [place] [address] Nov, [facility] [place] [facility] [address] [facility] [id number] [facility] [place] [address] Oct, [facility] [place] [facility] [address] [facility] [id number] [facility] [place] [address] Oct, [facility] [place] [facility] [address] [id number] [place] [address] Sep, [facility] [place] [facility] [address] [id number] [place] [address] Sep, [facility] [place] [facility] [address] [id number] [place] [address] Sep, [facility] [place] [facility] [address] [facility] [id number] [facility] [place] [address] Sep, [facility] [place] [facility] [address] [id number] [place] [address] Aug, [facility] [place] [facility] [address] [id number] [place] [address] Aug, [facility] [place] [facility] [address] [id number] [place] [address] Aug, [facility] [place] [facility] [address] [facility] [id number] [facility] [place] [address] Jul, [facility] [place] [facility] [address] [id number] [place] [address] Jul, [facility] [place] [facility] [address] [id number] [facility] [place] [address] Jul, [facility] [place] [facility] [address] [id number] [place] [address] Jul, [facility] [place] [facility] [address] [id number] [place] [address] June, [facility] [place] [facility] [address] [id number] [place] [address] June, [facility] [place] [facility] [address] [id number] [place] [address] May, [facility] [place] [facility] [address] [id number] [place] [address] May, [facility] [place] [facility] [address] [id number] [place] [address] Apr, [facility] [place] [facility] [address] [id number] [place] [address] Apr, [facility] [place] [facility] [address] [id number] [place] [address] Mar, [facility] [place] [facility] [address] [id number] [place] [address] Mar, [facility] [place] [facility] [address] [id number] [place] [address] Feb, [facility] [place] [facility] [address] [id number] [place] [address] 24 Feb, 2012 [facility] [place] [facility] [address] [id number] [place] [address] Feb, [facility] [place] [facility] [address] [id number] [place] [address] Feb, [facility] [place] [facility] [address] [id number] [place] [address] 17 Feb, 2012 [facility] [place] [facility] [address] [id number] [place] [address] 16 Feb, 2012 [facility] [place] [facility] [address] [id number] [place] [address] 16 Feb, 2012 [facility] [place] [facility] [address] [id number] [place] [address] 14 Feb, 2012 [facility] [place] [facility] [address] [id number] [place] [address] Feb, [facility] [place] [facility] [address] [id number] [place] [address] Jan, [facility] [place] [facility] [address] [id number] [place] [address] Jan, [facility] [place] [facility] [address] [id number] [place] [address] Jan, [facility] [place] [facility] [address] [id number] [place] [address] Jan, [facility] [place] [facility] [address] [id number] [place] [address] Dec, [facility] [place] [facility] [address] [id number] [place] [address] Dec, [facility] [place] [facility] [address] [id number] [place] [address] Dec, [facility] [address] [id number] [place] [address] Dec, [facility] [address] [id number] [place] [address] Oct, [facility] [address] [id number] [place] [address] Sep, [facility] [address] [id number] [place] [address] Sep, [facility] [address] [id number] [place] [address] Aug, [facility] [address] [id number] [place] [address] Jul, [facility] [address] [id number] [place] [address] June, [facility] [address] [id number] [place] [address] June, [facility] [address] [id number] [place] [address] May, [facility] [address] [id number] [place] [address] Apr, [facility] [address] [id number] [place] [address] Mar, [facility] [address] [id number] [place] [address] Mar, [facility] [id number] [place] [address] Feb, [facility] [id number] [place] [address] Dec, [facility] [id number] [place] [address] Nov, [facility] [id number] [place] [address] Sep, [facility] [address] [id number] [place] [address] Aug, IMMUNIZATIONS No Known Immunizations SOCIAL HISTORY Never Assessed REASON FOR VISIT PLAN OF CARE VITAL SIGNS Height 66 in 2013-04-17 Weight 128.3 lbs 2013-04-17 Temperature 98 degrees Fahrenheit 2013-04-17 Heart Rate 84 bpm 2013-04-17 Respiratory Rate 20 2013-04-17 Blood pressure systolic 110 mmHg 2013-04-17 Blood pressure diastolic 70 mmHg 2013-04-17 MEDICATIONS No Known Medications RESULTS No Results PROCEDURES Procedure Date Ordered Result Body Site DXA BONE DENSITY, AXIAL April 17, 2013 US BONE DENSITY MEASURE April 17, 2013 INSTRUCTIONS MEDICATIONS ADMINISTERED No Known Medications MEDICAL (GENERAL) HISTORY Type Description Date Medical History asthma Medical History headache Medical History chronic pain-low back with spasms Medical History anxiety Medical History depression Hospitalization History childbirth x 4
--- OUTSIDE RECORDS SUMMARY | 2019-07-02 15:43 | XMS REPORT ---
Author Author Madina LOZOYA Organization [facility] Address [address] [place] [address] Care Team Providers Care Professional Sports Scout Name Role Phone HUMA LOZOYA Unavailable PROBLEMS Type Condition ICD9-CM Code [id number] Code Onset Dates Condition S tatus SNOMED Code Problem Other and unspecified hyperlipidemia 272.4 Active 39501328 Problem Asthma J45.909 Active 260646191 Problem Alcoholism F10.20 Active 5499409 Problem Arthritis M19.90 Active 9666004 Problem Other chronic pain G89.29 Active 8 8145012 Problem Bipolar disorder F31.9 Active 137 66463 Problem Closed fracture of shaft of right fibula, unspecified fracture morphology, initial encounter S82.401A Active 72394827 Problem Major depressive disorder, single episode F32.9 Active 06968243 Problem Arthropathy, unspecified M12.9 Activ e [id number] ALLERGIES No Information ENCOUNTERS Encounter Location Date Diagnosis [place] [address] [address] Dec, Arthritis M19.90 ; Alcoholism F10.20 ; E ncounter for immunization Z23 and Breast cancer screening by mammogram Z12.[address] [address] Sep, [place] [address] [address] Sep, Arthropathy of right ankle M19.[address] [address] Aug, Pain in right ankle and joints of right foot M25.571 and Other chronic pain G89.29 [place] [address] [address] Jul, [place] [address] [address] Apr, [place] [address] [address] Apr, Injury of right ankle, initial encounter S99.911A and Encounter for immunization Z23 [facility] [address] [address] Dec, [place] [address] [address] Nov, Pain in right ankle and joints of right foot M25.571 ; Other chronic pain G89.29 and Post-traumatic arthritis of right ankle M19.171 [place] [address] [address] Oct, Arthritis M19.90 [place] [address] [address] Aug, Arthritis M19.90 [place] [address] [address] Aug, [place] [address] [address] Jul, [place] [address] [address] June, Arthropathy, unspecified M12.9 [place] [address] [address] May, Asthma J45.909 and Major depressive diso rder, single episode F32.9 [place] [address] [address] 16 Mar, 2016 Closed fracture of shaft of right fibula , unspecified fracture morphology, initial encounter S82.401A [place] [address] [address] Feb, [place] [address] [address] Feb, [place] [address] [place] [id number] [place] [address] Nov, [facility] [address] [address] Nov, Bipolar disorder F31.9 ; Encounter for i mmunization Z23 and Asthma J45.909 [facility] [address] [address] Aug, [facility] [address] [address] May, [facility] [address] [address] Apr, [facility] [address] [address] Apr, [facility] [address] [address] Apr, URI (upper respiratory infection) J06.9 and Bipolar disorder F31.9 [facility] [address] [address] Feb, [facility] [address] [address] Feb, Asthma J45.909 and Alcoholism F10.20 [facility] [address] [address] Jan, [facility] [address] [address] Jan, [facility] [address] [address] Jan, [facility] [address] [address] Nov, Alcoholism F10.20 and Anxiety F41.9 [facility] [address] [address] Jul, Anxiety 300.00 and Arthropathy 716.90 [facility] [address] [place] [id number] [place] [address] Jul, [facility] [address] [id number] [place] [address] Jul, Anxiety state 300.00 [facility] [place] [facility] [address] [id number] [place] [address] May, [facility] [place] [facility] [address] [place] [id number] [place] [address] May, [facility] [place] [facility] [address] [place] [id number] [place] [address] Apr, [facility] [address] [place] [id number] [place] [address] Apr, [facility] [place] [facility] [address] [place] [id number] [place] [address] Mar, [facility] [place] [facility] [address] [place] [id number] [place] [address] Mar, [facility] [place] [facility] [address] [place] [id number] [place] [address] Feb, [facility] [place] [facility] [address] [place] [id number] [place] [address] Feb, [facility] [place] [facility] [address] [place] [id number] [place] [address] Feb, [facility] [place] [facility] [address] [place] [id number] [place] [address] Feb, [facility] [place] [facility] [address] [place] [id number] [place] [address] Jan, [facility] [place] [facility] [address] [place] [id number] [place] [address] Jan, [facility] [place] [facility] [address] [place] [id number] [place] [address] Jan, [facility] [place] [facility] [address] [place] [id number] [place] [address] Jan, [facility] [place] [facility] [address] [place] [id number] [place] [address] Nov, 2013 [facility] [place] [facility] [address] [facility] [id number] [place] [address] Nov, [facility] [place] [facility] [address] [facility] [id number] [place] [address] Nov, 2013 [facility] [place] [facility] [address] [id number] [place] [address] Nov, [facility] [place] [facility] [address] [facility] [id number] [place] [address] Nov, [facility] [place] [facility] [address] [facility] [id number] [place] [address] Nov, [facility] [place] [facility] [address] [id number] [place] [address] Nov, 2013 [facility] [place] [facility] [address] [id number] [place] [address] Nov, 2013 [facility] [place] [facility] [address] [id number] [place] [address] Nov, 2013 [facility] [place] [facility] [address] [facility] [id number] [place] [address] Nov, 2013 [facility] [place] [facility] [address] [id number] [place] [address] Nov, 2013 [facility] [place] [facility] [address] [id number] [place] [address] Nov, 2013 [facility] [place] [facility] [address] [id number] [place] [address] Nov, 2013 [facility] [place] [facility] [address] [facility] [id number] [place] [address] 30 Oct, 2013 [facility] [place] [facility] [address] [facility] [id number] [place] [address] 30 Sep, 2013 [facility] [place] [facility] [address] [facility] [id number] [place] [address] Oct, 2013 [facility] [place] [facility] [address] [id number] [place] [address] Oct, 2013 [facility] [place] [facility] [address] [id number] [place] [address] 08 Oct, 2013 [facility] [place] [facility] [address] [id number] [place] [address] Oct, 2013 [facility] [place] [facility] [address] [id number] [place] [address] Oct, 2013 [facility] [place] [facility] [address] [id number] [place] [address] Oct, 2013 [facility] [place] [facility] [address] [id number] [place] [address] Oct, 2013 [facility] [place] [facility] [address] [id number] [place] [address] Oct, 2013 [facility] [place] [facility] [address] [id number] [place] [address] Oct, 2013 [facility] [place] [facility] [address] [id number] [place] [address] Oct, 2013 [facility] [place] [facility] [address] [id number] [place] [address] Sep, [facility] [place] [facility] [address] [id number] [place] [address] Sep, [facility] [place] [facility] [address] [id number] [place] [address] Sep, [facility] [place] [facility] [address] [id number] [place] [address] Sep, [facility] [place] [facility] [address] [id number] [place] [address] Sep, [facility] [place] [facility] [address] [id number] [place] [address] Sep, [facility] [place] [facility] [address] [id number] [place] [address] Sep, [facility] [place] [facility] [address] [id number] [place] [address] Sep, [facility] [place] [facility] [address] [id number] [place] [address] Aug, [facility] [place] [facility] [address] [id number] [place] [address] Aug, [facility] [place] [facility] [address] [id number] [place] [address] Aug, [facility] [place] [facility] [address] [id number] [place] [address] Aug, [facility] [place] [facility] [address] [id number] [place] [address] Jul, [facility] [place] [facility] [address] [id number] [place] [address] Jul, [facility] [place] [facility] [address] [id number] [place] [address] Jul, [facility] [place] [facility] [address] [id number] [place] [address] Jul, [facility] [place] [facility] [address] [id number] [place] [address] Jul, [facility] [place] [facility] [address] [id number] [place] [address] Jul, [facility] [place] [facility] [address] [id number] [place] [address] June, [facility] [place] [facility] [address] [id number] [place] [address] June, [facility] [place] [facility] [address] [id number] [place] [address] June, [facility] [place] [facility] [address] [id number] [place] [address] June, [facility] [place] [facility] [address] [id number] [place] [address] June, [facility] [place] [facility] [address] [id number] [place] [address] June, [facility] [place] [facility] [address] [id number] [place] [address] May, [facility] [place] [facility] [address] [id number] [place] [address] May, [facility] [place] [facility] [address] [facility] [id number] [place] [address] May, [facility] [place] [facility] [address] [facility] [id number] [place] [address] May, [facility] [place] [facility] [address] [facility] [id number] [place] [address] May, [facility] [place] [facility] [address] [facility] [id number] [place] [address] May, [facility] [place] [facility] [address] [facility] [id number] [place] [address] May, [facility] [place] [facility] [address] [facility] [id number] [place] [address] May, [facility] [place] [facility] [address] [id number] [place] [address] May, [facility] [place] [facility] [address] [id number] [place] [address] May, [facility] [place] [facility] [address] [facility] [id number] [place] [address] Apr, [facility] [place] [facility] [address] [id number] [place] [address] Apr, [facility] [place] [facility] [address] [id number] [place] [address] Apr, [facility] [place] [facility] [address] [id number] [place] [address] 10 Apr, 2013 [facility] [place] [facility] [address] [facility] [id number] [place] [address] 10 Apr, 2013 [facility] [place] [facility] [address] [facility] [id number] [place] [address] Apr, [facility] [place] [facility] [address] [facility] [id number] [place] [address] Apr, [facility] [place] [facility] [address] [id number] [place] [address] Apr, [facility] [place] [facility] [address] [id number] [place] [address] Apr, [facility] [place] [facility] [address] [facility] [id number] [place] [address] Apr, [facility] [place] [facility] [address] [id number] [place] [address] Apr, [facility] [place] [facility] [address] [id number] [place] [address] Apr, [facility] [place] [facility] [address] [id number] [place] [address] Mar, [facility] [place] [facility] [address] [id number] [place] [address] Mar, [facility] [place] [facility] [address] [id number] [place] [address] Mar, [facility] [place] [facility] [address] [id number] [place] [address] Mar, [facility] [place] [facility] [address] [id number] [place] [address] Feb, [facility] [place] [facility] [address] [id number] [place] [address] Feb, [facility] [place] [facility] [address] [id number] [place] [address] Feb, [facility] [place] [facility] [address] [id number] [place] [address] Feb, [facility] [place] [facility] [address] [id number] [place] [address] Feb, [facility] [place] [facility] [address] [id number] [place] [address] Feb, [facility] [place] [facility] [address] [id number] [place] [address] Feb, [facility] [place] [facility] [address] [id number] [place] [address] Feb, [facility] [place] [facility] [address] [id number] [place] [address] Feb, [facility] [place] [facility] [address] [id number] [place] [address] Feb, [facility] [place] [facility] [address] [id number] [place] [address] Jan, [facility] [place] [facility] [address] [id number] [place] [address] Jan, [facility] [place] [facility] [address] [id number] [place] [address] Jan, [facility] [place] [facility] [address] [id number] [place] [address] Jan, [facility] [place] [facility] [address] [id number] [place] [address] Jan, [facility] [place] [facility] [address] [id number] [place] [address] Jan, [facility] [place] [facility] [address] [id number] [place] [address] Jan, [facility] [place] [facility] [address] [id number] [place] [address] Jan, [facility] [place] [facility] [address] [id number] [place] [address] Jan, [facility] [place] [facility] [address] [id number] [place] [address] Dec, [facility] [place] [facility] [address] [id number] [place] [address] Dec, [facility] [place] [facility] [address] [id number] [place] [address] Dec, [facility] [place] [facility] [address] [id number] [place] [address] Dec, [facility] [place] [facility] [address] [id number] [place] [address] Nov, [facility] [place] [facility] [address] [id number] [place] [address] Nov, [facility] [place] [facility] [address] [id number] [place] [address] Nov, [facility] [place] [facility] [address] [facility] [id number] [place] [address] Nov, [facility] [place] [facility] [address] [facility] [id number] [place] [address] Nov, [facility] [place] [facility] [address] [id number] [place] [address] Nov, [facility] [place] [facility] [address] [facility] [id number] [place] [address] Oct, [facility] [place] [facility] [address] [facility] [id number] [place] [address] Oct, [facility] [place] [facility] [address] [id number] [place] [address] Sep, [facility] [place] [facility] [address] [id number] [place] [address] Sep, [facility] [place] [facility] [address] [id number] [place] [address] Sep, [facility] [place] [facility] [address] [id number] [place] [address] Sep, [facility] [place] [facility] [address] [id number] [place] [address] Aug, [facility] [place] [facility] [address] [id number] [place] [address] Aug, [facility] [place] [facility] [address] [id number] [place] [address] Aug, [facility] [place] [facility] [address] [facility] [id number] [place] [address] Jul, [facility] [place] [facility] [address] [id number] [place] [address] Jul, [facility] [place] [facility] [address] [id number] [place] [address] Jul, [facility] [place] [facility] [address] [id number] [place] [address] Jul, [facility] [place] [facility] [address] [id number] [place] [address] June, [facility] [place] [facility] [address] [facility] [id number] [place] [address] June, [facility] [place] [facility] [address] [id number] [place] [address] May, [facility] [place] [facility] [address] [id number] [place] [address] May, [facility] [place] [facility] [address] [id number] [place] [address] Apr, [facility] [place] [facility] [address] [id number] [place] [address] Apr, [facility] [place] [facility] [address] [id number] [place] [address] Mar, [facility] [place] [facility] [address] [id number] [place] [address] Mar, [facility] [place] [facility] [address] [id number] [place] [address] Feb, [facility] [place] [facility] [address] [id number] [place] [address] 24 Feb, 2012 [facility] [place] [facility] [address] [id number] [place] [address] Feb, [facility] [place] [facility] [address] [id number] [place] [address] Feb, [facility] [place] [facility] [address] [id number] [place] [address] Feb, [facility] [place] [facility] [address] [id number] [place] [address] 16 Feb, 2012 [facility] [place] [facility] [address] [id number] [place] [address] 16 Feb, 2012 [facility] [place] [facility] [address] [id number] [place] [address] 14 Feb, 2012 [facility] [place] [facility] [address] [id number] [place] [address] Feb, [facility] [address] [id number] [place] [address] Jan, [facility] [place] [facility] [address] [id number] [place] [address] Jan, [facility] [place] [facility] [address] [id number] [place] [address] Jan, [facility] [place] [facility] [address] [id number] [place] [address] Jan, [facility] [place] [facility] [address] [id number] [place] [address] Dec, [facility] [place] [facility] [address] [id number] [place] [address] Dec, [facility] [place] [facility] [address] [id number] [place] [address] Dec, [facility] [place] [facility] [id number] [place] [address] Dec, [facility] [place] [facility] [address] [id number] [place] [address] Oct, [facility] [place] [facility] [id number] [place] [address] Sep, [facility] [place] [facility] [address] [id number] [place] [address] Sep, [facility] [address] [id number] [place] [address] Aug, [facility] [address] [id number] [place] [address] Jul, [facility] [address] [id number] [place] [address] June, [facility] [address] [id number] [place] [address] June, [facility] [address] [id number] [place] [address] May, [facility] [address] [id number] [place] [address] Apr, [facility] [address] [id number] [place] [address] Mar, [facility] [address] [id number] [place] [address] Mar, [facility] [address] [id number] [place] [address] Feb, [facility] [address] [id number] [place] [address] Dec, [facility] [address] [id number] [place] [address] Nov, [facility] [address] [id number] [place] [address] Sep, [facility] [address] [id number] [place] [address] Aug, IMMUNIZATIONS No Known Immunizations SOCIAL HISTORY [...]
--- OUTSIDE RECORDS SUMMARY | 2019-07-02 15:43 | XMS REPORT ---
Author Author Madina LOZOYA Organization [facility] Address [address] [place] [address] Care Team Providers Care Director Building Name Role Phone HUMA LOZOYA Unavailable PROBLEMS Type Condition ICD9-CM Code [id number] Code Onset Dates Condition S tatus SNOMED Code Problem Other and unspecified hyperlipidemia 272.4 Active 63272632 Problem Asthma J45.909 Active 348768840 Problem Alcoholism F10.20 Active 8326976 Problem Arthritis M19.90 Active 6511239 Problem Other chronic pain G89.29 Active 8 4231186 Problem Bipolar disorder F31.9 Active 137 44228 Problem Closed fracture of shaft of right fibula, unspecified fracture morphology, initial encounter S82.401A Active 85370001 Problem Major depressive disorder, single episode F32.9 Active 22698950 Problem Arthropathy, unspecified M12.9 Activ e [id number] ALLERGIES No Information ENCOUNTERS Encounter Location Date Diagnosis [place] [address] [address] Dec, Arthritis M19.90 ; Alcoholism F10.20 ; E ncounter for immunization Z23 and Breast cancer screening by mammogram Z12.[address] [address] Sep, [place] [address] [address] Sep, Arthropathy of right ankle M19.[address] [address] Aug, Pain in right ankle and joints of right foot M25.571 and Other chronic pain G89.29 [place] [address] [address] Jul, [place] [address] [address] Apr, [place] [address] [address] Apr, Injury of right ankle, initial encounter S99.911A and Encounter for immunization Z23 [facility] [address] [address] Dec, [place] [address] [address] Nov, Pain in right ankle and joints of right foot M25.571 ; Other chronic pain G89.29 and Post-traumatic arthritis of right ankle M19.171 [place] [address] [address] Oct, Arthritis M19.90 [place] [address] [address] Aug, Arthritis M19.90 [place] [address] [address] Aug, [place] [address] [address] Jul, [place] [address] [address] June, Arthropathy, unspecified M12.9 [place] [address] [address] May, Asthma J45.909 and Major depressive diso rder, single episode F32.9 [place] [address] [address] 16 Mar, 2016 Closed fracture of shaft of right fibula , unspecified fracture morphology, initial encounter S82.401A [place] [address] [address] Feb, [place] [address] [address] Feb, [place] [address] [place] [id number] [place] [address] Nov, [facility] [address] [address] Nov, Bipolar disorder F31.9 ; Encounter for i mmunization Z23 and Asthma J45.909 [facility] [address] [address] Aug, [facility] [address] [address] May, [facility] [address] [address] Apr, [facility] [address] [address] Apr, [facility] [address] [address] Apr, URI (upper respiratory infection) J06.9 and Bipolar disorder F31.9 [facility] [address] [address] Feb, [facility] [address] [address] Feb, Asthma J45.909 and Alcoholism F10.20 [facility] [address] [address] Jan, [facility] [address] [address] Jan, [facility] [address] [address] Jan, [facility] [address] [address] Nov, Alcoholism F10.20 and Anxiety F41.9 [facility] [address] [address] Jul, Anxiety 300.00 and Arthropathy 716.90 [facility] [address] [place] [id number] [place] [address] Jul, [facility] [address] [id number] [place] [address] Jul, Anxiety state 300.00 [facility] [place] [facility] [address] [id number] [place] [address] May, [facility] [place] [facility] [address] [place] [id number] [place] [address] May, [facility] [place] [facility] [address] [place] [id number] [place] [address] Apr, [facility] [address] [place] [id number] [place] [address] Apr, [facility] [place] [facility] [address] [place] [id number] [place] [address] Mar, [facility] [place] [facility] [address] [place] [id number] [place] [address] Mar, [facility] [place] [facility] [address] [place] [id number] [place] [address] Feb, [facility] [place] [facility] [address] [place] [id number] [place] [address] Feb, [facility] [place] [facility] [address] [place] [id number] [place] [address] Feb, [facility] [place] [facility] [address] [place] [id number] [place] [address] Feb, [facility] [place] [facility] [address] [place] [id number] [place] [address] Jan, [facility] [place] [facility] [address] [place] [id number] [place] [address] Jan, [facility] [place] [facility] [address] [place] [id number] [place] [address] Jan, [facility] [place] [facility] [address] [place] [id number] [place] [address] Jan, [facility] [place] [facility] [address] [place] [id number] [place] [address] Nov, 2013 [facility] [place] [facility] [address] [facility]] [id number] [place] [address] Nov, [facility] [place] [facility] [address] [facility]NOTE [facility]] [id number] [place] [address] Nov, 2013 [facility] [place] [facility] [address] [id number] [place] [address] Nov, [facility] [place] [facility] [address] [facility]NOTE [facility]] [id number] [place] [address] Nov, [facility] [place] [facility] [address] [facility]NOTE 3] [id number] [place] [address] Nov, [facility] [place] [facility] [address] [id number] [place] [address] Nov, 2013 [facility] [place] [facility] [address] [id number] [place] [address] Nov, 2013 [facility] [place] [facility] [address] [id number] [place] [address] Nov, 2013 [facility] [place] [facility] [address] [facility]NOTE 3] [id number] [place] [address] Nov, 2013 [facility] [place] [facility] [address] [id number] [place] [address] Nov, 2013 [facility] [place] [facility] [address] [id number] [place] [address] Nov, 2013 [facility] [place] [facility] [address] [id number] [place] [address] Nov, 2013 [facility] [place] [facility] [address] [facility]NOTE 3] [id number] [place] [address] 30 Oct, 2013 [facility] [place] [facility] [address] [facility] 3] [id number] [place] [address] 30 Sep, 2013 [facility] [place] [facility] [address] [facility]NOTE 3] [id number] [place] [address] Oct, 2013 [facility] [place] [facility] [address] [id number] [place] [address] Oct, 2013 [facility] [place] [facility] [address] [id number] [place] [address] 08 Oct, 2013 [facility] [place] [facility] [address] [id number] [place] [address] Oct, 2013 [facility] [place] [facility] [address] [id number] [place] [address] Oct, 2013 [facility] [place] [facility] [address] [id number] [place] [address] Oct, 2013 [facility] [place] [facility] [address] [id number] [place] [address] Oct, 2013 [facility] [place] [facility] [address] [id number] [place] [address] Oct, 2013 [facility] [place] [facility] [address] [id number] [place] [address] Oct, 2013 [facility] [place] [facility] [address] [id number] [place] [address] Oct, 2013 [facility] [place] [facility] [address] [id number] [place] [address] Sep, [facility] [place] [facility] [address] [id number] [place] [address] Sep, [facility] [place] [facility] [address] [id number] [place] [address] Sep, [facility] [place] [facility] [address] [id number] [place] [address] Sep, [facility] [place] [facility] [address] [id number] [place] [address] Sep, [facility] [place] [facility] [address] [id number] [place] [address] Sep, [facility] [place] [facility] [address] [id number] [place] [address] Sep, [facility] [place] [facility] [address] [id number] [place] [address] Sep, [facility] [place] [facility] [address] [id number] [place] [address] Aug, [facility] [place] [facility] [address] [id number] [place] [address] Aug, [facility] [place] [facility] [address] [id number] [place] [address] Aug, [facility] [place] [facility] [address] [id number] [place] [address] Aug, [facility] [place] [facility] [address] [id number] [place] [address] Jul, [facility] [place] [facility] [address] [id number] [place] [address] Jul, [facility] [place] [facility] [address] [id number] [place] [address] Jul, [facility] [place] [facility] [address] [id number] [place] [address] Jul, [facility] [place] [facility] [address] [id number] [place] [address] Jul, [facility] [place] [facility] [address] [id number] [place] [address] Jul, [facility] [place] [facility] [address] [id number] [place] [address] June, [facility] [place] [facility] [address] [id number] [place] [address] June, [facility] [place] [facility] [address] [id number] [place] [address] June, [facility] [place] [facility] [address] [id number] [place] [address] June, [facility] [place] [facility] [address] [id number] [place] [address] June, [facility] [place] [facility] [address] [id number] [place] [address] June, [facility] [place] [facility] [address] [id number] [place] [address] May, [facility] [place] [facility] [address] [id number] [place] [address] May, [facility] [place] [facility] [address] [facility]NOTE 3] [id number] [facility] [place] [address] May, [facility] [place] [facility] [address] [facility]NOTE 3] [id number] [place] [address] May, [facility] [place] [facility] [address] [facility][NOTE 3] [id number] [place] [address] May, [facility] [place] [facility] [address] [facility][NOTE 3] [id number] [place] [address] May, [facility] [place] [facility] [address] [facility][NOTE 3] [id number] [facility] [place] [address] May, [facility] [place] [facility] [address] [facility][NOTE 3] [id number] [place] [address] May, [facility] [place] [facility] [address] [id number] [place] [address] May, [facility] [place] [facility] [address] [id number] [facility] [place] [address] May, [facility] [place] [facility] [address] [facility][NOTE 3] [id number] [place] [address] Apr, [facility] [place] [facility] [address] [id number] [facility] [place] [address] Apr, [facility] [place] [facility] [address] [id number] [place] [address] Apr, [facility] [place] [facility] [address] [id number] [place] [address] 10 Apr, 2013 [facility] [place] [facility] [address] [facility][NOTE 3] [id number] [place] [address] 10 Apr, 2013 [facility] [place] [facility] [address] [facility][NOTE 3] [id number] [place] [address] Apr, [facility] [place] [facility] [address] [facility][NOTE 3] [id number] [place] [address] Apr, [facility] [place] [facility] [address] [id number] [place] [address] Apr, [facility] [place] [facility] [address] [id number] [facility] [place] [address] Apr, [facility] [place] [facility] [address] [facility]NOTE 3] [id number] [place] [address] Apr, [facility] [place] [facility] [address] [id number] [place] [address] Apr, [facility] [place] [facility] [address] [id number] [place] [address] Apr, [facility] [place] [facility] [address] [id number] [place] [address] Mar, [facility] [place] [facility] [address] [id number] [place] [address] Mar, [facility] [place] [facility] [address] [id number] [place] [address] Mar, [facility] [place] [facility] [address] [id number] [place] [address] Mar, [facility] [place] [facility] [address] [id number] [place] [address] Feb, [facility] [place] [facility] [address] [id number] [place] [address] Feb, [facility] [place] [facility] [address] [id number] [place] [address] Feb, [facility] [place] [facility] [address] [id number] [place] [address] Feb, [facility] [place] [facility] [address] [id number] [place] [address] Feb, [facility] [place] [facility] [address] [id number] [place] [address] Feb, [facility] [place] [facility] [address] [id number] [place] [address] Feb, [facility] [place] [facility] [address] [id number] [place] [address] Feb, [facility] [place] [facility] [address] [id number] [place] [address] Feb, [facility] [place] [facility] [address] [id number] [place] [address] Feb, [facility] [place] [facility] [address] [id number] [place] [address] Jan, [facility] [place] [facility] [address] [id number] [place] [address] Jan, [facility] [place] [facility] [address] [id number] [place] [address] Jan, [facility] [place] [facility] [address] [id number] [place] [address] Jan, [facility] [place] [facility] [address] [id number] [place] [address] Jan, [facility] [place] [facility] [address] [id number] [place] [address] Jan, [facility] [place] [facility] [address] [id number] [place] [address] Jan, [facility] [place] [facility] [address] [id number] [place] [address] Jan, [facility] [place] [facility] [address] [id number] [place] [address] Jan, [facility] [place] [facility] [address] [id number] [place] [address] Dec, [facility] [place] [facility] [address] [id number] [place] [address] Dec, [facility] [place] [facility] [address] [id number] [place] [address] Dec, [facility] [place] [facility] [address] [id number] [place] [address] Dec, [facility] [place] [facility] [address] [id number] [place] [address] Nov, [facility] [place] [facility] [address] [id number] [place] [address] Nov, [facility] [place] [facility] [address] [id number] [place] [address] Nov, [facility] [place] [facility] [address] [facility]NOTE 3] [id number] [facility] [place] [address] Nov, [facility] [place] [facility] [address] [facility][NOTE 3] [id number] [facility] [place] [address] Nov, [facility] [place] [facility] [address] [id number] [facility] [place] [address] Nov, [facility] [place] [facility] [address] [facility][NOTE 3] [id number] [facility] [place] [address] Oct, [facility] [place] [facility] [address] [facility][NOTE 3] [id number] [facility] [place] [address] Oct, [facility] [place] [facility] [address] [id number] [place] [address] Sep, [facility] [place] [facility] [address] [id number] [place] [address] Sep, [facility] [place] [facility] [address] [id number] [place] [address] Sep, [facility] [place] [facility] [address] [id number] [place] [address] Sep, [facility] [place] [facility] [address] [id number] [place] [address] Aug, [facility] [place] [facility] [address] [id number] [place] [address] Aug, [facility] [place] [facility] [address] [id number] [place] [address] Aug, [facility] [place] [facility] [address] [facility][NOTE 3] [id number] [place] [address] Jul, [facility] [place] [facility] [address] [id number] [place] [address] Jul, [facility] [place] [facility] [address] [id number] [place] [address] Jul, [facility] [place] [facility] [address] [id number] [place] [address] Jul, [facility] [place] [facility] [address] [id number] [place] [address] June, [facility] [place] [facility] [address] [facility][NOTE 3] [id number] [place] [address] June, [facility] [place] [facility] [address] [id number] [place] [address] May, [facility] [place] [facility] [address] [id number] [place] [address] May, [facility] [place] [facility] [address] [id number] [place] [address] Apr, [facility] [place] [facility] [address] [id number] [place] [address] Apr, [facility] [place] [facility] [address] [id number] [place] [address] Mar, [facility] [place] [facility] [address] [id number] [place] [address] Mar, [facility] [place] [facility] [address] [id number] [place] [address] Feb, [facility] [place] [facility] [address] [id number] [place] [address] 24 Feb, 2012 [facility] [place] [facility] [address] [id number] [place] [address] Feb, [facility] [place] [facility] [address] [id number] [place] [address] Feb, [facility] [place] [facility] [address] [id number] [place] [address] Feb, [facility] [place] [facility] [address] [id number] [place] [address] 16 Feb, 2012 [facility] [place] [facility] [address] [id number] [place] [address] 16 Feb, 2012 [facility] [place] [facility] [address] [id number] [place] [address] 14 Feb, 2012 [facility] [address] [id number] [place] [address] Feb, [facility] [address] [id number] [place] [address] Jan, [facility] [address] [id number] [place] [address] Jan, [facility] [address] [id number] [place] [address] Jan, [facility] [address] [id number] [place] [address] Jan, [facility] [address] [id number] [place] [address] Dec, [facility] [address] [id number] [place] [address] Dec, [facility] [address] [id number] [place] [address] Dec, [facility] [id number] [place] [address] Dec, [facility] [address] [id number] [place] [address] Oct, [facility] [id number] [place] [address] Sep, [facility] [address] [id number] [place] [address] Sep, [facility] [address] [id number] [place] [address] Aug, [facility] [address] [id number] [place] [address] Jul, [facility] [address] [id number] [place] [address] June, [facility] [address] [id number] [place] [address] June, [facility] [address] [id number] [place] [address] May, [facility] [address] [id number] [place] [address] Apr, [facility] [address] [id number] [place] [address] Mar, [facility] [address] [id number] [place] [address] Mar, [facility] [address] [id number] [place] [address] Feb, [facility] [address] [id number] [place] [address] Dec, [facility] [address] [id number] [place] [address] Nov, [facility] [address] [id number] [place] [address] Sep, [facility] [address] [id number] [place] [address] Aug, IMMUNIZATIONS No Known Immunizations SOCIAL HISTORY [...]
--- OUTSIDE RECORDS SUMMARY | 2019-07-02 15:44 | XMS REPORT ---
Author Author Madina ESTRADA Organization [facility] Address [address] [place] [address] Care Team Providers Care Director Cpg Name Role Phone MIGUE ESTRADA Unavailable PROBLEMS Type Condition ICD9-CM Code TGJ43-[id number] Code Onset Dates Condition S tatus SNOMED Code Problem Other and unspecified hyperlipidemia 272.4 Active 94472960 Problem Asthma J45.909 Active 639587378 Problem Alcoholism F10.20 Active 2368540 Problem Arthritis M19.90 Active 3919269 Problem Other chronic pain G89.29 Active 8 9089499 Problem Bipolar disorder F31.9 Active 137 91836 Problem Closed fracture of shaft of right fibula, unspecified fracture morphology, initial encounter S82.401A Active 17007588 Problem Major depressive disorder, single episode F32.9 Active 66144609 Problem Arthropathy, unspecified M12.9 Activ e [id number] ALLERGIES No Information ENCOUNTERS Encounter Location Date Diagnosis [place] [address] [address] Dec, Arthritis M19.90 ; Alcoholism F10.20 ; E ncounter for immunization Z23 and Breast cancer screening by mammogram Z12.31 [place] [address] [address] Sep, [place] [address] [address] Sep, Arthropathy of right ankle M19.071 [place] [address] [address] Aug, Pain in right ankle and joints of right foot M25.571 and Other chronic pain G89.29 [place] [address] [address] Jul, [place] [address] [address] Apr, [place] [address] [address] Apr, Injury of right ankle, initial encounter S99.911A and Encounter for immunization Z23 [place] [address] [address] Dec, [place] [address] [address] Nov, Pain in right ankle and joints of right foot M25.571 ; Other chronic pain G89.29 and Post-traumatic arthritis of right ankle M19.171 [place] [address] [address] Oct, Arthritis M19.90 [place] [address] [address] Aug, Arthritis M19.90 [place] [address] [address] Aug, [place] [address] [address] Jul, [place] [address] [address] June, Arthropathy, unspecified M12.9 [place] [address] [address] May, Asthma J45.909 and Major depressive diso rder, single episode F32.9 [place] [address] [address] Mar, Closed fracture of shaft of right fibula , unspecified fracture morphology, initial encounter S82.401A [place] [address] [address] Feb, [place] [address] [address] Feb, [facility] [address] [address] Nov, [facility] [address] [address] Nov, Bipolar disorder F31.9 ; Encounter for i mmunization Z23 and Asthma J45.909 [facility] [address] [address] Aug, [facility] [address] [address] May, [facility] [address] [address] Apr, [facility] [address] [address] Apr, [facility] [address] [address] Apr, URI (upper respiratory infection) J06.[address] [facility] [address] [address] Feb, [facility] [address] [address] Feb, Asthma J45.[address] [facility] [address] [address] Jan, [facility] [address] [address] Jan, [facility] [address] [address] Jan, [facility] [address] [address] Nov, Alcoholism F10.[address] [facility] [address] [address] Jul, Anxiety 300.[address] [facility] [address] [place] [id number] [place] [address] Jul, [facility] [id number] [place] [address] Jul, Anxiety state 300.00 [facility] [address] [id number] [place] [address] May, [facility] [id number] [place] [address] May, [facility] [place] [facility] [id number] [place] [address] Apr, [facility] [id number] [place] [address] Apr, [facility] [place] [facility] [id number] [place] [address] Mar, [facility] [id number] [place] [address] Mar, [facility] [id number] [place] [address] Feb, [facility] [id number] [place] [address] Feb, [facility] [place] [facility] [id number] [place] [address] Feb, [facility] [id number] [place] [address] Feb, [facility] [place] [facility] [id number] [place] [address] Jan, [facility] [place] [facility] [id number] [place] [address] Jan, [facility] [place] [facility] [id number] [place] [address] Jan, [facility] [place] [facility] [address] [id number] [place] [address] Jan, [facility] [place] [facility] [address] [id number] [place] [address] Nov, 2013 [facility] [place] [facility] [address] [facility] [id number] [place] [address] Nov, [facility] [place] [facility] [address] [facility] [id number] [place] [address] Nov, 2013 [facility] [place] [facility] [address] [id number] [place] [address] Nov, [facility] [place] [facility] [address] [facility] [id number] [place] [address] Nov, 2013 [facility] [place] [facility] [address] [facility] [id number] [place] [address] Nov, [facility] [place] [facility] [address] [id number] [place] [address] Nov, 2013 [facility] [place] [facility] [address] [id number] [place] [address] Nov, 2013 [facility] [place] [facility] [address] [id number] [place] [address] Nov, 2013 [facility] [place] [facility] [address] [id number] [place] [address] Nov, [facility] [place] [facility] [address] [id number] [place] [address] Nov, 2013 [facility] [place] [facility] [address] [id number] [place] [address] Nov, 2013 [facility] [place] [facility] [address] [id number] [place] [address] Nov, 2013 [facility] [place] [facility] [address] [id number] [place] [address] 30 Oct, 2013 [facility] [place] [facility] [address] [id number] [place] [address] 30 Sep, 2013 [facility] [place] [facility] [address] [id number] [place] [address] Oct, 2013 [facility] [place] [facility] [address] [id number] [place] [address] Oct, 2013 [facility] [place] [facility] [address] [id number] [place] [address] 08 Oct, 2013 [facility] [place] [facility] [address] [id number] [place] [address] Oct, 2013 [facility] [place] [facility] [address] [facility] [id number] [place] [address] Oct, 2013 [facility] [place] [facility] [address] [id number] [place] [address] Oct, 2013 [facility] [place] [facility] [address] [facility] [id number] [place] [address] Oct, 2013 [facility] [place] [facility] [address] [id number] [place] [address] Oct, 2013 [facility] [place] [facility] [address] [id number] [place] [address] Oct, 2013 [facility] [place] [facility] [address] [id number] [place] [address] Oct, 2013 [facility] [place] [facility] [address] [id number] [place] [address] Sep, 2013 [facility] [place] [facility] [address] [id number] [place] [address] Sep, [facility] [place] [facility] [address] [id number] [place] [address] Sep, [facility] [place] [facility] [address] [id number] [place] [address] Sep, 2013 [facility] [place] [facility] [address] [id number] [place] [address] Sep, [facility] [place] [facility] [address] [id number] [place] [address] Sep, [facility] [place] [facility] [address] [id number] [place] [address] Sep, [facility] [place] [facility] [address] [id number] [place] [address] Sep, [facility] [place] [facility] [address] [id number] [place] [address] Aug, [facility] [place] [facility] [address] [id number] [place] [address] Aug, [facility] [place] [facility] [address] [id number] [place] [address] Aug, [facility] [place] [facility] [address] [id number] [place] [address] Aug, [facility] [place] [facility] [address] [id number] [place] [address] Jul, [facility] [place] [facility] [address] [id number] [place] [address] Jul, [facility] [place] [facility] [address] [id number] [place] [address] Jul, [facility] [place] [facility] [address] [id number] [place] [address] Jul, [facility] [place] [facility] [address] [id number] [place] [address] Jul, [facility] [place] [facility] [address] [id number] [place] [address] Jul, [facility] [place] [facility] [address] [id number] [place] [address] June, [facility] [place] [facility] [address] [id number] [place] [address] June, [facility] [place] [facility] [address] [id number] [place] [address] June, [facility] [place] [facility] [address] [id number] [place] [address] June, [facility] [place] [facility] [address] [id number] [place] [address] June, [facility] [place] [facility] [address] [id number] [place] [address] June, [facility] [place] [facility] [address] [id number] [place] [address] May, [facility] [place] [facility] [address] [id number] [place] [address] May, [facility] [place] [facility] [address] [facility] [id number] [facility] [place] [address] May, [facility] [place] [facility] [address] [facility] [id number] [place] [address] May, [facility] [place] [facility] [address] [id number] [facility] [place] [address] May, [facility] [place] [facility] [address] [facility] [id number] [place] [address] May, [facility] [place] [facility] [address] [facility] [id number] [facility] [place] [address] May, [facility] [place] [facility] [address] [id number] [place] [address] May, [facility] [place] [facility] [address] [id number] [facility] [place] [address] May, [facility] [place] [facility] [address] [id number] [facility] [place] [address] May, [facility] [place] [facility] [address] [id number] [place] [address] Apr, [facility] [place] [facility] [address] [id number] [place] [address] Apr, [facility] [place] [facility] [address] [id number] [place] [address] Apr, [facility] [place] [facility] [address] [id number] [place] [address] Apr, [facility] [place] [facility] [address] [id number] [facility] [place] [address] Apr, [facility] [place] [facility] [address] [id number] [place] [address] Apr, [facility] [place] [facility] [address] [id number] [place] [address] Apr, [facility] [place] [facility] [address] [id number] [place] [address] Apr, [facility] [place] [facility] [address] [id number] [place] [address] Apr, [facility] [place] [facility] [address] [id number] [place] [address] Apr, [facility] [place] [facility] [address] [id number] [place] [address] Apr, [facility] [place] [facility] [address] [id number] [place] [address] Apr, [facility] [place] [facility] [address] [id number] [place] [address] Mar, [facility] [place] [facility] [address] [id number] [place] [address] Mar, [facility] [place] [facility] [address] [id number] [place] [address] Mar, [facility] [place] [facility] [address] [id number] [place] [address] Mar, [facility] [place] [facility] [address] [id number] [place] [address] Feb, [facility] [place] [facility] [address] [id number] [place] [address] Feb, [facility] [place] [facility] [address] [id number] [place] [address] Feb, [facility] [place] [facility] [address] [id number] [place] [address] Feb, [facility] [place] [facility] [address] [id number] [place] [address] Feb, [facility] [place] [facility] [address] [id number] [place] [address] Feb, [facility] [place] [facility] [address] [id number] [place] [address] Feb, [facility] [place] [facility] [address] [id number] [place] [address] Feb, [facility] [place] [facility] [address] [id number] [place] [address] Feb, [facility] [place] [facility] [address] [id number] [place] [address] Feb, [facility] [place] [facility] [address] [id number] [place] [address] Jan, [facility] [place] [facility] [address] [id number] [place] [address] Jan, [facility] [place] [facility] [address] [id number] [place] [address] Jan, [facility] [place] [facility] [address] [id number] [place] [address] Jan, [facility] [place] [facility] [address] [id number] [place] [address] Jan, [facility] [place] [facility] [address] [id number] [place] [address] Jan, [facility] [place] [facility] [address] [id number] [place] [address] Jan, [facility] [place] [facility] [address] [id number] [place] [address] Jan, [facility] [place] [facility] [address] [id number] [place] [address] Jan, [facility] [place] [facility] [address] [id number] [place] [address] Dec, [facility] [place] [facility] [address] [id number] [place] [address] Dec, [facility] [place] [facility] [address] [id number] [place] [address] Dec, [facility] [place] [facility] [address] [id number] [place] [address] Dec, [facility] [place] [facility] [address] [id number] [place] [address] Nov, [facility] [place] [facility] [address] [id number] [place] [address] Nov, [facility] [place] [facility] [address] [id number] [place] [address] 10 Nov, 2012 [facility] [place] [facility] [address] [facility] [id number] [facility] [place] [address] Nov, [facility] [place] [facility] [address] [facility] [id number] [facility] [place] [address] Nov, [facility] [place] [facility] [address] [id number] [facility] [place] [address] Nov, [facility] [place] [facility] [address] [facility] [id number] [facility] [place] [address] Oct, [facility] [place] [facility] [address] [facility] [id number] [facility] [place] [address] Oct, [facility] [place] [facility] [address] [id number] [place] [address] Sep, [facility] [place] [facility] [address] [id number] [place] [address] Sep, [facility] [place] [facility] [address] [id number] [place] [address] Sep, [facility] [place] [facility] [address] [facility] [id number] [facility] [place] [address] Sep, [facility] [place] [facility] [address] [id number] [place] [address] Aug, [facility] [place] [facility] [address] [id number] [place] [address] Aug, [facility] [place] [facility] [address] [id number] [place] [address] Aug, [facility] [place] [facility] [address] [facility] [id number] [facility] [place] [address] Jul, [facility] [place] [facility] [address] [id number] [place] [address] Jul, [facility] [place] [facility] [address] [id number] [facility] [place] [address] Jul, [facility] [place] [facility] [address] [id number] [place] [address] Jul, [facility] [place] [facility] [address] [id number] [place] [address] June, [facility] [place] [facility] [address] [id number] [place] [address] June, [facility] [place] [facility] [address] [id number] [place] [address] May, [facility] [place] [facility] [address] [id number] [place] [address] May, [facility] [place] [facility] [address] [id number] [place] [address] Apr, [facility] [place] [facility] [address] [id number] [place] [address] Apr, [facility] [place] [facility] [address] [id number] [place] [address] Mar, [facility] [place] [facility] [address] [id number] [place] [address] Mar, [facility] [place] [facility] [address] [id number] [place] [address] Feb, [facility] [place] [facility] [address] [id number] [place] [address] 24 Feb, 2012 [facility] [place] [facility] [address] [id number] [place] [address] Feb, [facility] [place] [facility] [address] [id number] [place] [address] Feb, [facility] [place] [facility] [address] [id number] [place] [address] 17 Feb, 2012 [facility] [place] [facility] [address] [id number] [place] [address] 16 Feb, 2012 [facility] [place] [facility] [address] [id number] [place] [address] 16 Feb, 2012 [facility] [place] [facility] [address] [id number] [place] [address] 14 Feb, 2012 [facility] [place] [facility] [address] [id number] [place] [address] Feb, [facility] [place] [facility] [address] [id number] [place] [address] Jan, [facility] [place] [facility] [address] [id number] [place] [address] Jan, [facility] [place] [facility] [address] [id number] [place] [address] Jan, [facility] [place] [facility] [address] [id number] [place] [address] Jan, [facility] [place] [facility] [address] [id number] [place] [address] Dec, [facility] [place] [facility] [address] [id number] [place] [address] Dec, [facility] [place] [facility] [address] [id number] [place] [address] Dec, [facility] [place] [facility] [address] [id number] [place] [address] Dec, [facility] [place] [facility] [address] [id number] [place] [address] Oct, [facility] [place] [facility] [address] [id number] [place] [address] Sep, [facility] [place] [facility] [address] [id number] [place] [address] Sep, [facility] [place] [facility] [address] [id number] [place] [address] Aug, [facility] [place] [facility] [address] [id number] [place] [address] Jul, [facility] [place] [facility] [address] [id number] [place] [address] June, [facility] [place] [facility] [address] [id number] [place] [address] June, [facility] [place] [facility] [address] [id number] [place] [address] May, [facility] [place] [facility] [address] [id number] [place] [address] Apr, [facility] [address] [id number] [place] [address] Mar, [facility] [address] [id number] [place] [address] Mar, [facility] [id number] [place] [address] Feb, [facility] [id number] [place] [address] Dec, [facility] [id number] [place] [address] Nov, [facility] [id number] [place] [address] Sep, [facility] [address] [id number] [place] [address] Aug, IMMUNIZATIONS No Known Immunizations SOCIAL HISTORY Never Assessed REASON FOR VISIT PLAN OF CARE VITAL SIGNS Height 66 in 2013-06-02 Weight 122 lbs 2013-06-02 Temperature 98.7 degrees Fahrenheit 2013-06-02 Heart Rate 80 bpm 2013-06-02 Respiratory Rate 20 2013-06-02 Blood pressure systolic 112 mmHg 2013-06-02 Blood pressure diastolic 70 mmHg 2013-06-02 MEDICATIONS No Known Medications RESULTS No Results PROCEDURES Procedure Date Ordered Result Body Site X-RAY EXAM OF NECK SPINE June 02, 2013 INSTRUCTIONS MEDICATIONS ADMINISTERED No Known Medications MEDICAL (GENERAL) HISTORY Type Description Date Medical History asthma Medical History headache Medical History chronic pain-low back with spasms Medical History anxiety Medical History depression Hospitalization History childbirth x 4
--- OUTSIDE RECORDS SUMMARY | 2019-07-02 15:44 | XMS REPORT ---
Author Author Madina LOZOYA Organization [facility] Address [address] [place] [address] Care Team Providers Care Mineral Resources Inspector Name Role Phone HUMA LOZOYA Unavailable PROBLEMS Type Condition ICD9-CM Code BYX60-FQ Code Onset Dates Condition S tatus SNOMED Code Problem Other and unspecified hyperlipidemia 272.4 Active 96171672 Problem Asthma J45.909 Active 814311622 Problem Alcoholism F10.20 Active 2471625 Problem Arthritis M19.90 Active 7994492 Problem Other chronic pain G89.29 Active 8 0192154 Problem Bipolar disorder F31.9 Active 137 83518 Problem Closed fracture of shaft of right fibula, unspecified fracture morphology, initial encounter S82.401A Active 37254383 Problem Major depressive disorder, single episode F32.9 Active 49591852 Problem Arthropathy, unspecified M12.9 Activ e [id number] ALLERGIES No Information ENCOUNTERS Encounter Location Date Diagnosis [place] [address] [address] Dec, Arthritis M19.90 ; Alcoholism F10.20 ; E ncounter for immunization Z23 and Breast cancer screening by mammogram Z12.[address] [address] Sep, [place] [address] [address] Sep, Arthropathy of right ankle M19.[address] [address] Aug, Pain in right ankle and joints of right foot M25.571 and Other chronic pain G89.29 [place] [address] [address] Jul, [place] [address] [address] Apr, [place] [address] [address] Apr, Injury of right ankle, initial encounter S99.911A and Encounter for immunization Z23 [facility] [address] [address] Dec, [place] [address] [address] Nov, Pain in right ankle and joints of right foot M25.571 ; Other chronic pain G89.29 and Post-traumatic arthritis of right ankle M19.171 [place] [address] [address] Oct, Arthritis M19.90 [place] [address] [address] Aug, Arthritis M19.90 [place] [address] [address] Aug, [place] [address] [address] Jul, [place] [address] [address] June, Arthropathy, unspecified M12.9 [place] [address] [address] May, Asthma J45.909 and Major depressive diso rder, single episode F32.9 [place] [address] [address] 16 Mar, 2016 Closed fracture of shaft of right fibula , unspecified fracture morphology, initial encounter S82.401A [place] [address] [address] Feb, [place] [address] [address] Feb, [place] [address] [place] [id number] [place] [address] Nov, [facility] [address] [address] Nov, Bipolar disorder F31.9 ; Encounter for i mmunization Z23 and Asthma J45.909 [facility] [address] [address] Aug, [facility] [address] [address] May, [facility] [address] [address] Apr, [facility] [address] [address] Apr, [facility] [address] [address] Apr, URI (upper respiratory infection) J06.9 and Bipolar disorder F31.9 [facility] [address] [address] Feb, [facility] [address] [address] Feb, Asthma J45.909 and Alcoholism F10.20 [facility] [address] [address] Jan, [facility] [address] [address] Jan, [facility] [address] [address] Jan, [facility] [address] [address] Nov, Alcoholism F10.20 and Anxiety F41.9 [facility] [address] [address] Jul, Anxiety 300.00 and Arthropathy 716.90 [facility] [address] [place] [id number] [place] [address] Jul, [facility] [address] [id number] [place] [address] Jul, Anxiety state 300.00 [facility] [place] [facility] [address] [id number] [place] [address] May, [facility] [place] [facility] [address] [place] [id number] [place] [address] May, [facility] [place] [facility] [address] [place] [id number] [place] [address] Apr, [facility] [address] [place] [id number] [place] [address] Apr, [facility] [place] [facility] [address] [place] [id number] [place] [address] Mar, [facility] [place] [facility] [address] [place] [id number] [place] [address] Mar, [facility] [place] [facility] [address] [place] [id number] [place] [address] Feb, [facility] [place] [facility] [address] [place] [id number] [place] [address] Feb, [facility] [place] [facility] [address] [place] [id number] [place] [address] Feb, [facility] [place] [facility] [address] [place] [address] [id number] [place] [address] Feb, [facility] [place] [facility] [address] [place] [id number] [place] [address] Jan, [facility] [place] [facility] [address] [place] [address] [id number] [place] [address] Jan, [facility] [place] [facility] [address] [place] [address] [id number] [place] [address] Jan, [facility] [place] [facility] [address] [place] [id number] [place] [address] Jan, [facility] [place] [facility] [address] [place] [id number] [place] [address] Nov, 2013 [facility] [place] [facility] [address] [facility] [id number] [place] [address] Nov, [facility] [place] [facility] [address] [facility] [id number] [place] [address] Nov, 2013 [facility] [place] [facility] [address] [id number] [place] [address] Nov, [facility] [place] [facility] [address] [facility] [id number] [place] [address] Nov, [facility] [place] [facility] [address] [facility] [id number] [place] [address] Nov, [facility] [place] [facility] [address] [id number] [place] [address] Nov, 2013 [facility] [place] [facility] [address] [id number] [place] [address] Nov, 2013 [facility] [place] [facility] [address] [id number] [place] [address] Nov, 2013 [facility] [place] [facility] [address] [facility] [id number] [place] [address] Nov, 2013 [facility] [place] [facility] [address] [id number] [place] [address] Nov, 2013 [facility] [place] [facility] [address] [id number] [place] [address] Nov, 2013 [facility] [place] [facility] [address] [id number] [place] [address] Nov, 2013 [facility] [place] [facility] [address] [facility] [id number] [place] [address] 30 Oct, 2013 [facility] [place] [facility] [address] [facility] [id number] [place] [address] 30 Sep, 2013 [facility] [place] [facility] [address] [facility] [id number] [place] [address] Oct, 2013 [facility] [place] [facility] [address] [id number] [place] [address] Oct, 2013 [facility] [place] [facility] [address] [id number] [place] [address] 08 Oct, 2013 [facility] [place] [facility] [address] [id number] [place] [address] Oct, 2013 [facility] [place] [facility] [address] [id number] [place] [address] Oct, 2013 [facility] [place] [facility] [address] [id number] [place] [address] Oct, 2013 [facility] [place] [facility] [address] [id number] [place] [address] Oct, 2013 [facility] [place] [facility] [address] [id number] [place] [address] Oct, 2013 [facility] [place] [facility] [address] [id number] [place] [address] Oct, 2013 [facility] [place] [facility] [address] [id number] [place] [address] Oct, 2013 [facility] [place] [facility] [address] [id number] [place] [address] Sep, [facility] [place] [facility] [address] [id number] [place] [address] Sep, [facility] [place] [facility] [address] [id number] [place] [address] Sep, [facility] [place] [facility] [address] [id number] [place] [address] Sep, [facility] [place] [facility] [address] [id number] [place] [address] Sep, [facility] [place] [facility] [address] [id number] [place] [address] Sep, [facility] [place] [facility] [address] [id number] [place] [address] Sep, [facility] [place] [facility] [address] [id number] [place] [address] Sep, [facility] [place] [facility] [address] [id number] [place] [address] Aug, [facility] [place] [facility] [address] [id number] [place] [address] Aug, [facility] [place] [facility] [address] [id number] [place] [address] Aug, [facility] [place] [facility] [address] [id number] [place] [address] Aug, [facility] [place] [facility] [address] [id number] [place] [address] Jul, [facility] [place] [facility] [address] [id number] [place] [address] Jul, [facility] [place] [facility] [address] [id number] [place] [address] Jul, [facility] [place] [facility] [address] [id number] [place] [address] Jul, [facility] [place] [facility] [address] [id number] [place] [address] Jul, [facility] [place] [facility] [address] [id number] [place] [address] Jul, [facility] [place] [facility] [address] [id number] [place] [address] June, [facility] [place] [facility] [address] [id number] [place] [address] June, [facility] [place] [facility] [address] [id number] [place] [address] June, [facility] [place] [facility] [address] [id number] [place] [address] June, [facility] [place] [facility] [address] [id number] [place] [address] June, [facility] [place] [facility] [address] [id number] [place] [address] June, [facility] [place] [facility] [address] [id number] [place] [address] May, [facility] [place] [facility] [address] [id number] [place] [address] May, [facility] [place] [facility] [address] [facility] [id number] [place] [address] May, [facility] [place] [facility] [address] [facility] [id number] [place] [address] May, [facility] [place] [facility] [address] [facility] [id number] [place] [address] May, [facility] [place] [facility] [address] [facility] [id number] [place] [address] May, [facility] [place] [facility] [address] [facility] [id number] [place] [address] May, [facility] [place] [facility] [address] [facility] [id number] [place] [address] May, [facility] [place] [facility] [address] [id number] [place] [address] May, [facility] [place] [facility] [address] [id number] [place] [address] May, [facility] [place] [facility] [address] [facility] [id number] [place] [address] Apr, [facility] [place] [facility] [address] [id number] [place] [address] Apr, [facility] [place] [facility] [address] [id number] [place] [address] Apr, [facility] [place] [facility] [address] [id number] [place] [address] 10 Apr, 2013 [facility] [place] [facility] [address] [facility] [id number] [place] [address] 10 Apr, 2013 [facility] [place] [facility] [address] [facility] [id number] [place] [address] Apr, [facility] [place] [facility] [address] [facility] [id number] [place] [address] Apr, [facility] [place] [facility] [address] [id number] [place] [address] Apr, [facility] [place] [facility] [address] [id number] [place] [address] Apr, [facility] [place] [facility] [address] [facility] [id number] [place] [address] Apr, [facility] [place] [facility] [address] [id number] [place] [address] Apr, [facility] [place] [facility] [address] [id number] [place] [address] Apr, [facility] [place] [facility] [address] [id number] [place] [address] Mar, [facility] [place] [facility] [address] [id number] [place] [address] Mar, [facility] [place] [facility] [address] [id number] [place] [address] Mar, [facility] [place] [facility] [address] [id number] [place] [address] Mar, [facility] [place] [facility] [address] [id number] [place] [address] Feb, [facility] [place] [facility] [address] [id number] [place] [address] Feb, [facility] [place] [facility] [address] [id number] [place] [address] Feb, [facility] [place] [facility] [address] [id number] [place] [address] Feb, [facility] [place] [facility] [address] [id number] [place] [address] Feb, [facility] [place] [facility] [address] [id number] [place] [address] Feb, [facility] [place] [facility] [address] [id number] [place] [address] Feb, [facility] [place] [facility] [address] [id number] [place] [address] Feb, [facility] [place] [facility] [address] [id number] [place] [address] Feb, [facility] [place] [facility] [address] [id number] [place] [address] Feb, [facility] [place] [facility] [address] [id number] [place] [address] Jan, [facility] [place] [facility] [address] [id number] [place] [address] Jan, [facility] [place] [facility] [address] [id number] [place] [address] Jan, [facility] [place] [facility] [address] [id number] [place] [address] Jan, [facility] [place] [facility] [address] [id number] [place] [address] Jan, [facility] [place] [facility] [address] [id number] [place] [address] Jan, [facility] [place] [facility] [address] [id number] [place] [address] Jan, [facility] [place] [facility] [address] [id number] [place] [address] Jan, [facility] [place] [facility] [address] [id number] [place] [address] Jan, [facility] [place] [facility] [address] [id number] [place] [address] Dec, [facility] [place] [facility] [address] [id number] [place] [address] Dec, [facility] [place] [facility] [address] [id number] [place] [address] Dec, [facility] [place] [facility] [address] [id number] [place] [address] Dec, [facility] [place] [facility] [address] [id number] [place] [address] Nov, [facility] [place] [facility] [address] [id number] [place] [address] Nov, [facility] [place] [facility] [address] [id number] [place] [address] Nov, [facility] [place] [facility] [address] [facility] [id number] [place] [address] Nov, [facility] [place] [facility] [address] [facility] [id number] [place] [address] Nov, [facility] [place] [facility] [address] [id number] [place] [address] Nov, [facility] [place] [facility] [address] [facility] [id number] [place] [address] Oct, [facility] [place] [facility] [address] [facility] [id number] [place] [address] Oct, [facility] [place] [facility] [address] [id number] [place] [address] Sep, [facility] [place] [facility] [address] [id number] [place] [address] Sep, [facility] [place] [facility] [address] [id number] [place] [address] Sep, [facility] [place] [facility] [address] [id number] [place] [address] Sep, [facility] [place] [facility] [address] [id number] [place] [address] Aug, [facility] [place] [facility] [address] [id number] [place] [address] Aug, [facility] [place] [facility] [address] [id number] [place] [address] Aug, [facility] [place] [facility] [address] [facility] [id number] [place] [address] Jul, [facility] [place] [facility] [address] [id number] [place] [address] Jul, [facility] [place] [facility] [address] [id number] [place] [address] Jul, [facility] [place] [facility] [address] [id number] [place] [address] Jul, [facility] [place] [facility] [address] [id number] [place] [address] June, [facility] [place] [facility] [address] [facility] [id number] [place] [address] June, [facility] [place] [facility] [address] [id number] [place] [address] May, [facility] [place] [facility] [address] [id number] [place] [address] May, [facility] [place] [facility] [address] [id number] [place] [address] Apr, [facility] [place] [facility] [address] [id number] [place] [address] Apr, [facility] [place] [facility] [address] [id number] [place] [address] Mar, [facility] [place] [facility] [address] [id number] [place] [address] Mar, [facility] [place] [facility] [address] [id number] [place] [address] Feb, [facility] [place] [facility] [address] [id number] [place] [address] 24 Feb, 2012 [facility] [place] [facility] [address] [id number] [place] [address] Feb, [facility] [place] [facility] [address] [id number] [place] [address] Feb, [facility] [place] [facility] [address] [id number] [place] [address] Feb, [facility] [place] [facility] [address] [id number] [place] [address] 16 Feb, 2012 [facility] [place] [facility] [address] [id number] [place] [address] 16 Feb, 2012 [facility] [place] [facility] [address] [id number] [place] [address] 14 Feb, 2012 [facility] [place] [facility] [address] [id number] [place] [address] Feb, [facility] [address] [id number] [place] [address] Jan, [facility] [place] [facility] [address] [id number] [place] [address] Jan, [facility] [place] [facility] [address] [id number] [place] [address] Jan, [facility] [place] [facility] [address] [id number] [place] [address] Jan, [facility] [place] [facility] [address] [id number] [place] [address] Dec, [facility] [place] [facility] [address] [id number] [place] [address] Dec, [facility] [place] [address] [id number] [place] [address] Dec, [facility] [id number] [place] [address] Dec, [facility] [address] [id number] [place] [address] Oct, [facility] [id number] [place] [address] Sep, [facility] [address] [id number] [place] [address] Sep, [facility] [address] [id number] [place] [address] Aug, [facility] [address] [id number] [place] [address] Jul, [facility] [address] [id number] [place] [address] June, [facility] [address] [id number] [place] [address] June, [facility] [address] [id number] [place] [address] May, [facility] [address] [id number] [place] [address] Apr, [facility] [address] [id number] [place] [address] Mar, [facility] [address] [id number] [place] [address] Mar, [facility] [address] [id number] [place] [address] Feb, [facility] [address] [id number] [place] [address] Dec, [facility] [address] [id number] [place] [address] Nov, [facility] [address] [id number] [place] [address] Sep, [facility] [address] [id number] [place] [address] Aug, IMMUNIZATIONS No Known Immunizations SOCIAL HISTORY [...]
--- OUTSIDE RECORDS SUMMARY | 2019-07-02 15:44 | XMS REPORT ---
Author Author Madina Shelton Organization [facility] Address [address] [place] [address] Care Team Providers Care Data Developer Name Role Phone APRIL Shelton Unavailable PROBLEMS Type Condition ICD9-CM Code FEF41-PA Code Onset Dates Condition S tatus SNOMED Code Problem Other and unspecified hyperlipidemia 272.4 Active 17419177 Problem Asthma J45.909 Active 159856115 Problem Alcoholism F10.20 Active 8950899 Problem Arthritis M19.90 Active 2277353 Problem Other chronic pain G89.29 Active 8 5287352 Problem Bipolar disorder F31.9 Active 137 17008 Problem Closed fracture of shaft of right fibula, unspecified fracture morphology, initial encounter S82.401A Active 72332391 Problem Major depressive disorder, single episode F32.9 Active 40684076 Problem Arthropathy, unspecified M12.9 Activ e [id number] ALLERGIES No Information ENCOUNTERS Encounter Location Date Diagnosis [place] [address] [address] Dec, Arthritis M19.90 ; Alcoholism F10.20 ; E ncounter for immunization Z23 and Breast cancer screening by mammogram Z12.31 [place] [address] [address] Sep, [place] [address] [address] Sep, Arthropathy of right ankle M19.071 [place] [address] [address] Aug, Pain in right ankle and joints of right foot M25.571 and Other chronic pain G89.29 [place] [address] [address] Jul, [place] [address] [address] Apr, [place] [address] [address] Apr, Injury of right ankle, initial encounter S99.911A and Encounter for immunization Z23 [place] [address] [address] Dec, [place] [address] [address] Nov, Pain in right ankle and joints of right foot M25.571 ; Other chronic pain G89.29 and Post-traumatic arthritis of right ankle M19.171 [place] [address] [address] Oct, Arthritis M19.90 [place] [address] [address] Aug, Arthritis M19.90 [place] [address] [address] Aug, [place] [address] [address] Jul, [place] [address] [address] June, Arthropathy, unspecified M12.9 [place] [address] [address] May, Asthma J45.909 and Major depressive diso rder, single episode F32.9 [place] [address] [address] Mar, Closed fracture of shaft of right fibula , unspecified fracture morphology, initial encounter S82.401A [place] [address] [address] Feb, [place] [address] [address] Feb, [facility] [address] [address] Nov, [facility] [address] [address] Nov, Bipolar disorder F31.9 ; Encounter for i mmunization Z23 and Asthma J45.909 [facility] [address] [address] Aug, [facility] [address] [address] May, [facility] [address] [address] Apr, [facility] [address] [address] Apr, [facility] [address] [address] Apr, URI (upper respiratory infection) J06.9 and Bipolar disorder F31.9 [facility] [address] [address] Feb, [facility] [address] [address] Feb, Asthma J45.909 and Alcoholism F10.20 [facility] [address] [address] Jan, [facility] [address] [address] Jan, [facility] [address] [address] Jan, [facility] [address] [address] Nov, Alcoholism F10.20 and Anxiety F41.9 [facility] [address] [address] Jul, Anxiety 300.00 and Arthropathy 716.90 [facility] [address] [place] [id number] [place] [address] Jul, [facility] [address] [place] [id number] [place] [address] Jul, Anxiety state 300.00 [facility] [address] [id number] [place] [address] May, [facility] [address] [place] [id number] [place] [address] May, [facility] [place] [facility] [address] [place] [id number] [place] [address] Apr, [facility] [address] [place] [id number] [place] [address] Apr, [facility] [place] [facility] [address] [place] [address] [id number] [place] [address] Mar, [facility] [address] [place] [address] [id number] [place] [address] Mar, [facility] [address] [place] [address] [id number] [place] [address] Feb, [facility] [address] [place] [id number] [place] [address] Feb, [facility] [place] [facility] [address] [place] [address] [id number] [place] [address] Feb, [facility] [address] [place] [address] [id number] [place] [address] Feb, [facility] [place] [facility] [address] [place] [id number] [place] [address] Jan, [facility] [place] [facility] [address] [place] [id number] [place] [address] Jan, [facility] [place] [facility] [address] [place] [id number] [place] [address] Jan, [facility] [place] [facility] [address] [id number] [place] [address] Jan, [facility] [place] [facility] [address] [place] [id number] [place] [address] Nov, 2013 [facility] [place] [facility] [address] [facility] [id number] [place] [address] Nov, [facility] [place] [facility] [address] [facility] [id number] [place] [address] Nov, 2013 [facility] [place] [facility] [address] [id number] [place] [address] Nov, [facility] [place] [facility] [address] [facility] [id number] [place] [address] Nov, 2013 [facility] [place] [facility] [address] [facility] [id number] [place] [address] Nov, [facility] [place] [facility] [address] [id number] [place] [address] Nov, 2013 [facility] [place] [facility] [address] [id number] [place] [address] Nov, 2013 [facility] [place] [facility] [address] [id number] [place] [address] Nov, 2013 [facility] [place] [facility] [address] [id number] [place] [address] Nov, [facility] [place] [facility] [address] [id number] [place] [address] Nov, 2013 [facility] [place] [facility] [address] [id number] [place] [address] Nov, 2013 [facility] [place] [facility] [address] [id number] [place] [address] Nov, 2013 [facility] [place] [facility] [address] [id number] [place] [address] 30 Oct, 2013 [facility] [place] [facility] [address] [id number] [place] [address] 30 Sep, 2013 [facility] [place] [facility] [address] [id number] [place] [address] Oct, 2013 [facility] [place] [facility] [address] [id number] [place] [address] Oct, 2013 [facility] [place] [facility] [address] [id number] [place] [address] 08 Oct, 2013 [facility] [place] [facility] [address] [id number] [place] [address] Oct, 2013 [facility] [place] [facility] [address] [facility] [id number] [place] [address] Oct, 2013 [facility] [place] [facility] [address] [id number] [place] [address] Oct, 2013 [facility] [place] [facility] [address] [facility] [id number] [place] [address] Oct, 2013 [facility] [place] [facility] [address] [id number] [place] [address] Oct, 2013 [facility] [place] [facility] [address] [id number] [place] [address] Oct, 2013 [facility] [place] [facility] [address] [id number] [place] [address] Oct, 2013 [facility] [place] [facility] [address] [id number] [place] [address] Sep, 2013 [facility] [place] [facility] [address] [id number] [place] [address] Sep, [facility] [place] [facility] [address] [id number] [place] [address] Sep, [facility] [place] [facility] [address] [id number] [place] [address] Sep, 2013 [facility] [place] [facility] [address] [id number] [place] [address] Sep, [facility] [place] [facility] [address] [id number] [place] [address] Sep, [facility] [place] [facility] [address] [id number] [place] [address] Sep, [facility] [place] [facility] [address] [id number] [place] [address] Sep, [facility] [place] [facility] [address] [id number] [place] [address] Aug, [facility] [place] [facility] [address] [id number] [place] [address] Aug, [facility] [place] [facility] [address] [id number] [place] [address] Aug, [facility] [place] [facility] [address] [id number] [place] [address] Aug, [facility] [place] [facility] [address] [id number] [place] [address] Jul, [facility] [place] [facility] [address] [id number] [place] [address] Jul, [facility] [place] [facility] [address] [id number] [place] [address] Jul, [facility] [place] [facility] [address] [id number] [place] [address] Jul, [facility] [place] [facility] [address] [id number] [place] [address] Jul, [facility] [place] [facility] [address] [id number] [place] [address] Jul, [facility] [place] [facility] [address] [id number] [place] [address] June, [facility] [place] [facility] [address] [id number] [place] [address] June, [facility] [place] [facility] [address] [id number] [place] [address] June, [facility] [place] [facility] [address] [id number] [place] [address] June, [facility] [place] [facility] [address] [id number] [place] [address] June, [facility] [place] [facility] [address] [id number] [place] [address] June, [facility] [place] [facility] [address] [id number] [place] [address] May, [facility] [place] [facility] [address] [id number] [place] [address] May, [facility] [place] [facility] [address] [facility] [id number] [facility] [place] [address] May, [facility] [place] [facility] [address] [facility] [id number] [place] [address] May, [facility] [place] [facility] [address] [id number] [facility] [place] [address] May, [facility] [place] [facility] [address] [facility] [id number] [place] [address] May, [facility] [place] [facility] [address] [facility] [id number] [facility] [place] [address] May, [facility] [place] [facility] [address] [id number] [place] [address] May, [facility] [place] [facility] [address] [id number] [facility] [place] [address] May, [facility] [place] [facility] [address] [id number] [facility] [place] [address] May, [facility] [place] [facility] [address] [id number] [place] [address] Apr, [facility] [place] [facility] [address] [id number] [place] [address] Apr, [facility] [place] [facility] [address] [id number] [place] [address] Apr, [facility] [place] [facility] [address] [id number] [place] [address] Apr, [facility] [place] [facility] [address] [id number] [facility] [place] [address] Apr, [facility] [place] [facility] [address] [id number] [place] [address] Apr, [facility] [place] [facility] [address] [id number] [place] [address] Apr, [facility] [place] [facility] [address] [id number] [place] [address] Apr, [facility] [place] [facility] [address] [id number] [place] [address] Apr, [facility] [place] [facility] [address] [id number] [place] [address] Apr, [facility] [place] [facility] [address] [id number] [place] [address] Apr, [facility] [place] [facility] [address] [id number] [place] [address] Apr, [facility] [place] [facility] [address] [id number] [place] [address] Mar, [facility] [place] [facility] [address] [id number] [place] [address] Mar, [facility] [place] [facility] [address] [id number] [place] [address] Mar, [facility] [place] [facility] [address] [id number] [place] [address] Mar, [facility] [place] [facility] [address] [id number] [place] [address] Feb, [facility] [place] [facility] [address] [id number] [place] [address] Feb, [facility] [place] [facility] [address] [id number] [place] [address] Feb, [facility] [place] [facility] [address] [id number] [place] [address] Feb, [facility] [place] [facility] [address] [id number] [place] [address] Feb, [facility] [place] [facility] [address] [id number] [place] [address] Feb, [facility] [place] [facility] [address] [id number] [place] [address] Feb, [facility] [place] [facility] [address] [id number] [place] [address] Feb, [facility] [place] [facility] [address] [id number] [place] [address] Feb, [facility] [place] [facility] [address] [id number] [place] [address] Feb, [facility] [place] [facility] [address] [id number] [place] [address] Jan, [facility] [place] [facility] [address] [id number] [place] [address] Jan, [facility] [place] [facility] [address] [id number] [place] [address] Jan, [facility] [place] [facility] [address] [id number] [place] [address] Jan, [facility] [place] [facility] [address] [id number] [place] [address] Jan, [facility] [place] [facility] [address] [id number] [place] [address] Jan, [facility] [place] [facility] [address] [id number] [place] [address] Jan, [facility] [place] [facility] [address] [id number] [place] [address] Jan, [facility] [place] [facility] [address] [id number] [place] [address] Jan, [facility] [place] [facility] [address] [id number] [place] [address] Dec, [facility] [place] [facility] [address] [id number] [place] [address] Dec, [facility] [place] [facility] [address] [id number] [place] [address] Dec, [facility] [place] [facility] [address] [id number] [place] [address] Dec, [facility] [place] [facility] [address] [id number] [place] [address] Nov, [facility] [place] [facility] [address] [id number] [place] [address] Nov, [facility] [place] [facility] [address] [id number] [place] [address] 10 Nov, 2012 [facility] [place] [facility] [address] [facility] [id number] [facility] [place] [address] Nov, [facility] [place] [facility] [address] [facility] [id number] [facility] [place] [address] Nov, [facility] [place] [facility] [address] [id number] [facility] [place] [address] Nov, [facility] [place] [facility] [address] [facility] [id number] [facility] [place] [address] Oct, [facility] [place] [facility] [address] [facility] [id number] [facility] [place] [address] Oct, [facility] [place] [facility] [address] [id number] [place] [address] Sep, [facility] [place] [facility] [address] [id number] [place] [address] Sep, [facility] [place] [facility] [address] [id number] [place] [address] Sep, [facility] [place] [facility] [address] [facility] [id number] [facility] [place] [address] Sep, [facility] [place] [facility] [address] [id number] [place] [address] Aug, [facility] [place] [facility] [address] [id number] [place] [address] Aug, [facility] [place] [facility] [address] [id number] [place] [address] Aug, [facility] [place] [facility] [address] [facility] [id number] [facility] [place] [address] Jul, [facility] [place] [facility] [address] [id number] [place] [address] Jul, [facility] [place] [facility] [address] [id number] [facility] [place] [address] Jul, [facility] [place] [facility] [address] [id number] [place] [address] Jul, [facility] [place] [facility] [address] [id number] [place] [address] June, [facility] [place] [facility] [address] [id number] [place] [address] June, [facility] [place] [facility] [address] [id number] [place] [address] May, [facility] [place] [facility] [address] [id number] [place] [address] May, [facility] [place] [facility] [address] [id number] [place] [address] Apr, [facility] [place] [facility] [address] [id number] [place] [address] Apr, [facility] [place] [facility] [address] [id number] [place] [address] Mar, [facility] [place] [facility] [address] [id number] [place] [address] Mar, [facility] [place] [facility] [address] [id number] [place] [address] Feb, [facility] [place] [facility] [address] [id number] [place] [address] 24 Feb, 2012 [facility] [place] [facility] [address] [id number] [place] [address] Feb, [facility] [place] [facility] [address] [id number] [place] [address] Feb, [facility] [place] [facility] [address] [id number] [place] [address] 17 Feb, 2012 [facility] [place] [facility] [address] [id number] [place] [address] 16 Feb, 2012 [facility] [place] [facility] [address] [id number] [place] [address] 16 Feb, 2012 [facility] [place] [facility] [address] [id number] [place] [address] 14 Feb, 2012 [facility] [place] [facility] [address] [id number] [place] [address] Feb, [facility] [place] [facility] [address] [id number] [place] [address] Jan, [facility] [address] [id number] [place] [address] Jan, [facility] [address] [id number] [place] [address] Jan, [facility] [address] [id number] [place] [address] Jan, [facility] [address] [id number] [place] [address] Dec, [facility] [address] [id number] [place] [address] Dec, [facility] [address] [id number] [place] [address] Dec, [facility] [address] [id number] [place] [address] Dec, [facility] [address] [id number] [place] [address] Oct, [facility] [address] [id number] [place] [address] Sep, [facility] [address] [id number] [place] [address] Sep, [facility] [address] [id number] [place] [address] Aug, [facility] [address] [id number] [place] [address] Jul, [facility] [address] [id number] [place] [address] June, [facility] [address] [id number] [place] [address] June, [facility] [address] [id number] [place] [address] May, [facility] [address] [id number] [place] [address] Apr, [facility] [id number] [place] [address] Mar, [facility] [id number] [place] [address] Mar, [facility] [address] [address] Feb, [facility] [address] [address] Dec, [facility] [id number] [place] [address] Nov, [facility] [id number] [place] [address] Sep, [facility] [id number] [place] [address] Aug, IMMUNIZATIONS No Known Immunizations SOCIAL HISTORY [...]
--- OUTSIDE RECORDS SUMMARY | 2019-07-02 15:44 | XMS REPORT ---
Author Author Madina LOZOYA Organization [facility] Address [address] [place] [address] Care Team Providers Care Jerker Name Role Phone HUMA LOZOYA Unavailable PROBLEMS Type Condition ICD9-CM Code [id number] Code Onset Dates Condition S tatus SNOMED Code Problem Other and unspecified hyperlipidemia 272.4 Active 81174447 Problem Asthma J45.909 Active 157499466 Problem Alcoholism F10.20 Active 6303241 Problem Arthritis M19.90 Active 1098622 Problem Other chronic pain G89.29 Active 8 5916908 Problem Bipolar disorder F31.9 Active 137 83843 Problem Closed fracture of shaft of right fibula, unspecified fracture morphology, initial encounter S82.401A Active 03172299 Problem Major depressive disorder, single episode F32.9 Active 87622867 Problem Arthropathy, unspecified M12.9 Activ e [id number] ALLERGIES No Information ENCOUNTERS Encounter Location Date Diagnosis [place] [address] [address] Dec, Arthritis M19.90 ; Alcoholism F10.20 ; E ncounter for immunization Z23 and Breast cancer screening by mammogram Z12.[address] [address] Sep, [place] [address] [address] Sep, Arthropathy of right ankle M19.[address] [address] Aug, Pain in right ankle and joints of right foot M25.571 and Other chronic pain G89.29 [place] [address] [address] Jul, [place] [address] [address] Apr, [place] [address] [address] Apr, Injury of right ankle, initial encounter S99.911A and Encounter for immunization Z23 [facility] [address] [address] Dec, [place] [address] [address] Nov, Pain in right ankle and joints of right foot M25.571 ; Other chronic pain G89.29 and Post-traumatic arthritis of right ankle M19.171 [place] [address] [address] Oct, Arthritis M19.90 [place] [address] [address] Aug, Arthritis M19.90 [place] [address] [address] Aug, [place] [address] [address] Jul, [place] [address] [address] June, Arthropathy, unspecified M12.9 [place] [address] [address] May, Asthma J45.909 and Major depressive diso rder, single episode F32.9 [place] [address] [address] 16 Mar, 2016 Closed fracture of shaft of right fibula , unspecified fracture morphology, initial encounter S82.401A [place] [address] [address] Feb, [place] [address] [address] Feb, [place] [address] [place] [id number] [place] [address] Nov, [facility] [address] [address] Nov, Bipolar disorder F31.9 ; Encounter for i mmunization Z23 and Asthma J45.909 [facility] [address] [address] Aug, [facility] [address] [address] May, [facility] [address] [address] Apr, [facility] [address] [address] Apr, [facility] [address] [address] Apr, URI (upper respiratory infection) J06.9 and Bipolar disorder F31.9 [facility] [address] [address] Feb, [facility] [address] [address] Feb, Asthma J45.909 and Alcoholism F10.20 [facility] [address] [address] Jan, [facility] [address] [address] Jan, [facility] [address] [address] Jan, [facility] [address] [address] Nov, Alcoholism F10.20 and Anxiety F41.9 [facility] [address] [address] Jul, Anxiety 300.00 and Arthropathy 716.90 [facility] [address] [place] [id number] [place] [address] Jul, [facility] [address] [id number] [place] [address] Jul, Anxiety state 300.00 [facility] [place] [facility] [address] [id number] [place] [address] May, [facility] [place] [facility] [address] [place] [id number] [place] [address] May, [facility] [place] [facility] [address] [place] [id number] [place] [address] Apr, [facility] [address] [place] [id number] [place] [address] Apr, [facility] [place] [facility] [address] [place] [id number] [place] [address] Mar, [facility] [place] [facility] [address] [place] [id number] [place] [address] Mar, [facility] [place] [facility] [address] [place] [id number] [place] [address] Feb, [facility] [place] [facility] [address] [place] [id number] [place] [address] Feb, [facility] [place] [facility] [address] [place] [id number] [place] [address] Feb, [facility] [place] [facility] [address] [place] [id number] [place] [address] Feb, [facility] [place] [facility] [address] [place] [id number] [place] [address] Jan, [facility] [place] [facility] [address] [place] [id number] [place] [address] Jan, [facility] [place] [facility] [address] [place] [id number] [place] [address] Jan, [facility] [place] [facility] [address] [place] [id number] [place] [address] Jan, [facility] [place] [facility] [address] [place] [id number] [place] [address] Nov, 2013 [facility] [place] [facility] [address] [facility] [id number] [place] [address] Nov, [facility] [place] [facility] [address] [facility] [id number] [place] [address] Nov, 2013 [facility] [place] [facility] [address] [id number] [place] [address] Nov, [facility] [place] [facility] [address] [facility] [id number] [place] [address] Nov, [facility] [place] [facility] [address] [facility] [id number] [place] [address] Nov, [facility] [place] [facility] [address] [id number] [place] [address] Nov, 2013 [facility] [place] [facility] [address] [id number] [place] [address] Nov, 2013 [facility] [place] [facility] [address] [id number] [place] [address] Nov, 2013 [facility] [place] [facility] [address] [facility] [id number] [place] [address] Nov, 2013 [facility] [place] [facility] [address] [id number] [place] [address] Nov, 2013 [facility] [place] [facility] [address] [id number] [place] [address] Nov, 2013 [facility] [place] [facility] [address] [id number] [place] [address] Nov, 2013 [facility] [place] [facility] [address] [facility] [id number] [place] [address] 30 Oct, 2013 [facility] [place] [facility] [address] [facility] [id number] [place] [address] 30 Sep, 2013 [facility] [place] [facility] [address] [facility] [id number] [place] [address] Oct, 2013 [facility] [place] [facility] [address] [id number] [place] [address] Oct, 2013 [facility] [place] [facility] [address] [id number] [place] [address] 08 Oct, 2013 [facility] [place] [facility] [address] [id number] [place] [address] Oct, 2013 [facility] [place] [facility] [address] [id number] [place] [address] Oct, 2013 [facility] [place] [facility] [address] [id number] [place] [address] Oct, 2013 [facility] [place] [facility] [address] [id number] [place] [address] Oct, 2013 [facility] [place] [facility] [address] [id number] [place] [address] Oct, 2013 [facility] [place] [facility] [address] [id number] [place] [address] Oct, 2013 [facility] [place] [facility] [address] [id number] [place] [address] Oct, 2013 [facility] [place] [facility] [address] [id number] [place] [address] Sep, [facility] [place] [facility] [address] [id number] [place] [address] Sep, [facility] [place] [facility] [address] [id number] [place] [address] Sep, [facility] [place] [facility] [address] [id number] [place] [address] Sep, [facility] [place] [facility] [address] [id number] [place] [address] Sep, [facility] [place] [facility] [address] [id number] [place] [address] Sep, [facility] [place] [facility] [address] [id number] [place] [address] Sep, [facility] [place] [facility] [address] [id number] [place] [address] Sep, [facility] [place] [facility] [address] [id number] [place] [address] Aug, [facility] [place] [facility] [address] [id number] [place] [address] Aug, [facility] [place] [facility] [address] [id number] [place] [address] Aug, [facility] [place] [facility] [address] [id number] [place] [address] Aug, [facility] [place] [facility] [address] [id number] [place] [address] Jul, [facility] [place] [facility] [address] [id number] [place] [address] Jul, [facility] [place] [facility] [address] [id number] [place] [address] Jul, [facility] [place] [facility] [address] [id number] [place] [address] Jul, [facility] [place] [facility] [address] [id number] [place] [address] Jul, [facility] [place] [facility] [address] [id number] [place] [address] Jul, [facility] [place] [facility] [address] [id number] [place] [address] June, [facility] [place] [facility] [address] [id number] [place] [address] June, [facility] [place] [facility] [address] [id number] [place] [address] June, [facility] [place] [facility] [address] [id number] [place] [address] June, [facility] [place] [facility] [address] [id number] [place] [address] June, [facility] [place] [facility] [address] [id number] [place] [address] June, [facility] [place] [facility] [address] [id number] [place] [address] May, [facility] [place] [facility] [address] [id number] [place] [address] May, [facility] [place] [facility] [address] [facility] [id number] [place] [address] May, [facility] [place] [facility] [address] [facility] [id number] [place] [address] May, [facility] [place] [facility] [address] [facility] [id number] [place] [address] May, [facility] [place] [facility] [address] [facility] [id number] [place] [address] May, [facility] [place] [facility] [address] [facility] [id number] [place] [address] May, [facility] [place] [facility] [address] [facility] [id number] [place] [address] May, [facility] [place] [facility] [address] [id number] [place] [address] May, [facility] [place] [facility] [address] [id number] [place] [address] May, [facility] [place] [facility] [address] [facility] [id number] [place] [address] Apr, [facility] [place] [facility] [address] [id number] [place] [address] Apr, [facility] [place] [facility] [address] [id number] [place] [address] Apr, [facility] [place] [facility] [address] [id number] [place] [address] 10 Apr, 2013 [facility] [place] [facility] [address] [facility] [id number] [place] [address] 10 Apr, 2013 [facility] [place] [facility] [address] [facility] [id number] [place] [address] Apr, [facility] [place] [facility] [address] [facility] [id number] [place] [address] Apr, [facility] [place] [facility] [address] [id number] [place] [address] Apr, [facility] [place] [facility] [address] [id number] [place] [address] Apr, [facility] [place] [facility] [address] [facility] [id number] [place] [address] Apr, [facility] [place] [facility] [address] [id number] [place] [address] Apr, [facility] [place] [facility] [address] [id number] [place] [address] Apr, [facility] [place] [facility] [address] [id number] [place] [address] Mar, [facility] [place] [facility] [address] [id number] [place] [address] Mar, [facility] [place] [facility] [address] [id number] [place] [address] Mar, [facility] [place] [facility] [address] [id number] [place] [address] Mar, [facility] [place] [facility] [address] [id number] [place] [address] Feb, [facility] [place] [facility] [address] [id number] [place] [address] Feb, [facility] [place] [facility] [address] [id number] [place] [address] Feb, [facility] [place] [facility] [address] [id number] [place] [address] Feb, [facility] [place] [facility] [address] [id number] [place] [address] Feb, [facility] [place] [facility] [address] [id number] [place] [address] Feb, [facility] [place] [facility] [address] [id number] [place] [address] Feb, [facility] [place] [facility] [address] [id number] [place] [address] Feb, [facility] [place] [facility] [address] [id number] [place] [address] Feb, [facility] [place] [facility] [address] [id number] [place] [address] Feb, [facility] [place] [facility] [address] [id number] [place] [address] Jan, [facility] [place] [facility] [address] [id number] [place] [address] Jan, [facility] [place] [facility] [address] [id number] [place] [address] Jan, [facility] [place] [facility] [address] [id number] [place] [address] Jan, [facility] [place] [facility] [address] [id number] [place] [address] Jan, [facility] [place] [facility] [address] [id number] [place] [address] Jan, [facility] [place] [facility] [address] [id number] [place] [address] Jan, [facility] [place] [facility] [address] [id number] [place] [address] Jan, [facility] [place] [facility] [address] [id number] [place] [address] Jan, [facility] [place] [facility] [address] [id number] [place] [address] Dec, [facility] [place] [facility] [address] [id number] [place] [address] Dec, [facility] [place] [facility] [address] [id number] [place] [address] Dec, [facility] [place] [facility] [address] [id number] [place] [address] Dec, [facility] [place] [facility] [address] [id number] [place] [address] Nov, [facility] [place] [facility] [address] [id number] [place] [address] Nov, [facility] [place] [facility] [address] [id number] [place] [address] Nov, [facility] [place] [facility] [address] [facility] [id number] [place] [address] Nov, [facility] [place] [facility] [address] [facility] [id number] [place] [address] Nov, [facility] [place] [facility] [address] [id number] [place] [address] Nov, [facility] [place] [facility] [address] [facility] [id number] [place] [address] Oct, [facility] [place] [facility] [address] [facility] [id number] [place] [address] Oct, [facility] [place] [facility] [address] [id number] [place] [address] Sep, [facility] [place] [facility] [address] [id number] [place] [address] Sep, [facility] [place] [facility] [address] [id number] [place] [address] Sep, [facility] [place] [facility] [address] [id number] [place] [address] Sep, [facility] [place] [facility] [address] [id number] [place] [address] Aug, [facility] [place] [facility] [address] [id number] [place] [address] Aug, [facility] [place] [facility] [address] [id number] [place] [address] Aug, [facility] [place] [facility] [address] [facility] [id number] [place] [address] Jul, [facility] [place] [facility] [address] [id number] [place] [address] Jul, [facility] [place] [facility] [address] [id number] [place] [address] Jul, [facility] [place] [facility] [address] [id number] [place] [address] Jul, [facility] [place] [facility] [address] [id number] [place] [address] June, [facility] [place] [facility] [address] [facility] [id number] [place] [address] June, [facility] [place] [facility] [address] [id number] [place] [address] May, [facility] [place] [facility] [address] [id number] [place] [address] May, [facility] [place] [facility] [address] [id number] [place] [address] Apr, [facility] [place] [facility] [address] [id number] [place] [address] Apr, [facility] [place] [facility] [address] [id number] [place] [address] Mar, [facility] [place] [facility] [address] [id number] [place] [address] Mar, [facility] [place] [facility] [address] [id number] [place] [address] Feb, [facility] [place] [facility] [address] [id number] [place] [address] 24 Feb, 2012 [facility] [place] [facility] [address] [id number] [place] [address] Feb, [facility] [place] [facility] [address] [id number] [place] [address] Feb, [facility] [place] [facility] [address] [id number] [place] [address] Feb, [facility] [place] [facility] [address] [id number] [place] [address] 16 Feb, 2012 [facility] [address] [id number] [place] [address] 16 Feb, 2012 [facility] [address] [id number] [place] [address] 14 Feb, 2012 [facility] [address] [id number] [place] [address] Feb, [facility] [address] [id number] [place] [address] Jan, [facility] [address] [id number] [place] [address] Jan, [facility] [address] [id number] [place] [address] Jan, [facility] [address] [id number] [place] [address] Jan, [facility] [address] [id number] [place] [address] Dec, [facility] [address] [id number] [place] [address] Dec, [facility] [address] [id number] [place] [address] Dec, [facility] [id number] [place] [address] Dec, [facility] [address] [id number] [place] [address] Oct, [facility] [id number] [place] [address] Sep, [facility] [address] [id number] [place] [address] Sep, [facility] [address] [id number] [place] [address] Aug, [facility] [address] [id number] [place] [address] Jul, [facility] [address] [id number] [place] [address] June, [facility] [address] [id number] [place] [address] June, [facility] [address] [id number] [place] [address] May, [facility] [address] [id number] [place] [address] Apr, [facility] [address] [id number] [place] [address] Mar, [facility] [address] [id number] [place] [address] Mar, [facility] [address] [id number] [place] [address] Feb, [facility] [address] [id number] [place] [address] Dec, [facility] [address] [id number] [place] [address] Nov, [facility] [address] [id number] [place] [address] Sep, [facility] [address] [id number] [place] [address] Aug, IMMUNIZATIONS No Known Immunizations SOCIAL HISTORY [...]
--- OUTSIDE RECORDS SUMMARY | 2019-07-02 15:45 | XMS REPORT ---
Author Author Madina LOZOYA Organization [facility] Address [address] [place] [address] Care Team Providers Care Rn Utilization Management Um Name Role Phone HUMA LOZOYA Unavailable PROBLEMS Type Condition ICD9-CM Code WLS75-HY Code Onset Dates Condition S tatus SNOMED Code Problem Other and unspecified hyperlipidemia 272.4 Active 24199839 Problem Asthma J45.909 Active 140991076 Problem Alcoholism F10.20 Active 9962738 Problem Arthritis M19.90 Active 6632839 Problem Other chronic pain G89.29 Active 8 6542571 Problem Bipolar disorder F31.9 Active 137 19088 Problem Closed fracture of shaft of right fibula, unspecified fracture morphology, initial encounter S82.401A Active 40363897 Problem Major depressive disorder, single episode F32.9 Active 43289483 Problem Arthropathy, unspecified M12.9 Activ e [id number] ALLERGIES No Information ENCOUNTERS Encounter Location Date Diagnosis [place] [address] [address] Dec, Arthritis M19.90 ; Alcoholism F10.20 ; E ncounter for immunization Z23 and Breast cancer screening by mammogram Z12.[address] [address] Sep, [place] [address] [address] Sep, Arthropathy of right ankle M19.[address] [address] Aug, Pain in right ankle and joints of right foot M25.571 and Other chronic pain G89.29 [place] [address] [address] Jul, [place] [address] [address] Apr, [place] [address] [address] Apr, Injury of right ankle, initial encounter S99.911A and Encounter for immunization Z23 [facility] [address] [address] Dec, [place] [address] [address] Nov, Pain in right ankle and joints of right foot M25.571 ; Other chronic pain G89.29 and Post-traumatic arthritis of right ankle M19.171 [place] [address] [address] Oct, Arthritis M19.90 [place] [address] [address] Aug, Arthritis M19.90 [place] [address] [address] Aug, [place] [address] [address] Jul, [place] [address] [address] June, Arthropathy, unspecified M12.9 [place] [address] [address] May, Asthma J45.909 and Major depressive diso rder, single episode F32.9 [place] [address] [address] 16 Mar, 2016 Closed fracture of shaft of right fibula , unspecified fracture morphology, initial encounter S82.401A [place] [address] [address] Feb, [place] [address] [address] Feb, [place] [address] [place] [id number] [place] [address] Nov, [facility] [address] [address] Nov, Bipolar disorder F31.9 ; Encounter for i mmunization Z23 and Asthma J45.909 [facility] [address] [address] Aug, [facility] [address] [address] May, [facility] [address] [address] Apr, [facility] [address] [address] Apr, [facility] [address] [address] Apr, URI (upper respiratory infection) J06.9 and Bipolar disorder F31.9 [facility] [address] [address] Feb, [facility] [address] [address] Feb, Asthma J45.909 and Alcoholism F10.20 [facility] [address] [address] Jan, [facility] [address] [address] Jan, [facility] [address] [address] Jan, [facility] [address] [address] Nov, Alcoholism F10.20 and Anxiety F41.9 [facility] [address] [address] Jul, Anxiety 300.00 and Arthropathy 716.90 [facility] [address] [place] [id number] [place] [address] Jul, [facility] [address] [id number] [place] [address] Jul, Anxiety state 300.00 [facility] [place] [facility] [address] [id number] [place] [address] May, [facility] [place] [facility] [address] [place] [id number] [place] [address] May, [facility] [place] [facility] [address] [place] [id number] [place] [address] Apr, [facility] [address] [place] [id number] [place] [address] Apr, [facility] [place] [facility] [address] [place] [id number] [place] [address] Mar, [facility] [place] [facility] [address] [place] [id number] [place] [address] Mar, [facility] [place] [facility] [address] [place] [id number] [place] [address] Feb, [facility] [place] [facility] [address] [place] [address] [id number] [place] [address] Feb, [facility] [place] [facility] [address] [place] [address] [id number] [place] [address] Feb, [facility] [place] [facility] [address] [place] [id number] [place] [address] Feb, [facility] [place] [facility] [address] [place] [id number] [place] [address] Jan, [facility] [place] [facility] [address] [place] [address] [id number] [place] [address] Jan, [facility] [place] [facility] [address] [place] [id number] [place] [address] Jan, [facility] [place] [facility] [address] [place] [id number] [place] [address] Jan, [facility] [place] [facility] [address] [place] [id number] [place] [address] Nov, 2013 [facility] [place] [facility] [address] [facility] [id number] [place] [address] Nov, [facility] [place] [facility] [address] [facility] [id number] [place] [address] Nov, 2013 [facility] [place] [facility] [address] [id number] [place] [address] Nov, [facility] [place] [facility] [address] [facility] [id number] [place] [address] Nov, [facility] [place] [facility] [address] [facility] [id number] [place] [address] Nov, [facility] [place] [facility] [address] [id number] [place] [address] Nov, 2013 [facility] [place] [facility] [address] [id number] [place] [address] Nov, 2013 [facility] [place] [facility] [address] [id number] [place] [address] Nov, 2013 [facility] [place] [facility] [address] [facility] [id number] [place] [address] Nov, 2013 [facility] [place] [facility] [address] [id number] [place] [address] Nov, 2013 [facility] [place] [facility] [address] [id number] [place] [address] Nov, 2013 [facility] [place] [facility] [address] [id number] [place] [address] Nov, 2013 [facility] [place] [facility] [address] [facility] [id number] [place] [address] 30 Oct, 2013 [facility] [place] [facility] [address] [facility] [id number] [place] [address] 30 Sep, 2013 [facility] [place] [facility] [address] [facility] [id number] [place] [address] Oct, 2013 [facility] [place] [facility] [address] [id number] [place] [address] Oct, 2013 [facility] [place] [facility] [address] [id number] [place] [address] 08 Oct, 2013 [facility] [place] [facility] [address] [id number] [place] [address] Oct, 2013 [facility] [place] [facility] [address] [id number] [place] [address] Oct, 2013 [facility] [place] [facility] [address] [id number] [place] [address] Oct, 2013 [facility] [place] [facility] [address] [id number] [place] [address] Oct, 2013 [facility] [place] [facility] [address] [id number] [place] [address] Oct, 2013 [facility] [place] [facility] [address] [id number] [place] [address] Oct, 2013 [facility] [place] [facility] [address] [id number] [place] [address] Oct, 2013 [facility] [place] [facility] [address] [id number] [place] [address] Sep, [facility] [place] [facility] [address] [id number] [place] [address] Sep, [facility] [place] [facility] [address] [id number] [place] [address] Sep, [facility] [place] [facility] [address] [id number] [place] [address] Sep, [facility] [place] [facility] [address] [id number] [place] [address] Sep, [facility] [place] [facility] [address] [id number] [place] [address] Sep, [facility] [place] [facility] [address] [id number] [place] [address] Sep, [facility] [place] [facility] [address] [id number] [place] [address] Sep, [facility] [place] [facility] [address] [id number] [place] [address] Aug, [facility] [place] [facility] [address] [id number] [place] [address] Aug, [facility] [place] [facility] [address] [id number] [place] [address] Aug, [facility] [place] [facility] [address] [id number] [place] [address] Aug, [facility] [place] [facility] [address] [id number] [place] [address] Jul, [facility] [place] [facility] [address] [id number] [place] [address] Jul, [facility] [place] [facility] [address] [id number] [place] [address] Jul, [facility] [place] [facility] [address] [id number] [place] [address] Jul, [facility] [place] [facility] [address] [id number] [place] [address] Jul, [facility] [place] [facility] [address] [id number] [place] [address] Jul, [facility] [place] [facility] [address] [id number] [place] [address] June, [facility] [place] [facility] [address] [id number] [place] [address] June, [facility] [place] [facility] [address] [id number] [place] [address] June, [facility] [place] [facility] [address] [id number] [place] [address] June, [facility] [place] [facility] [address] [id number] [place] [address] June, [facility] [place] [facility] [address] [id number] [place] [address] June, [facility] [place] [facility] [address] [id number] [place] [address] May, [facility] [place] [facility] [address] [id number] [place] [address] May, [facility] [place] [facility] [address] [facility] [id number] [facility] [place] [address] May, [facility] [place] [facility] [address] [facility] [id number] [place] [address] May, [facility] [place] [facility] [address] [facility] [id number] [place] [address] May, [facility] [place] [facility] [address] [facility] [id number] [place] [address] May, [facility] [place] [facility] [address] [facility] [id number] [facility] [place] [address] May, [facility] [place] [facility] [address] [facility] [id number] [place] [address] May, [facility] [place] [facility] [address] [id number] [place] [address] May, [facility] [place] [facility] [address] [id number] [facility] [place] [address] May, [facility] [place] [facility] [address] [facility] [id number] [place] [address] Apr, [facility] [place] [facility] [address] [id number] [facility] [place] [address] Apr, [facility] [place] [facility] [address] [id number] [place] [address] Apr, [facility] [place] [facility] [address] [id number] [place] [address] 10 Apr, 2013 [facility] [place] [facility] [address] [facility] [id number] [place] [address] 10 Apr, 2013 [facility] [place] [facility] [address] [facility] [id number] [place] [address] Apr, [facility] [place] [facility] [address] [facility] [id number] [place] [address] Apr, [facility] [place] [facility] [address] [id number] [place] [address] Apr, [facility] [place] [facility] [address] [id number] [facility] [place] [address] Apr, [facility] [place] [facility] [address] [facility] [id number] [place] [address] Apr, [facility] [place] [facility] [address] [id number] [place] [address] Apr, [facility] [place] [facility] [address] [id number] [place] [address] Apr, [facility] [place] [facility] [address] [id number] [place] [address] Mar, [facility] [place] [facility] [address] [id number] [place] [address] Mar, [facility] [place] [facility] [address] [id number] [place] [address] Mar, [facility] [place] [facility] [address] [id number] [place] [address] Mar, [facility] [place] [facility] [address] [id number] [place] [address] Feb, [facility] [place] [facility] [address] [id number] [place] [address] Feb, [facility] [place] [facility] [address] [id number] [place] [address] Feb, [facility] [place] [facility] [address] [id number] [place] [address] Feb, [facility] [place] [facility] [address] [id number] [place] [address] Feb, [facility] [place] [facility] [address] [id number] [place] [address] Feb, [facility] [place] [facility] [address] [id number] [place] [address] Feb, [facility] [place] [facility] [address] [id number] [place] [address] Feb, [facility] [place] [facility] [address] [id number] [place] [address] Feb, [facility] [place] [facility] [address] [id number] [place] [address] Feb, [facility] [place] [facility] [address] [id number] [place] [address] Jan, [facility] [place] [facility] [address] [id number] [place] [address] Jan, [facility] [place] [facility] [address] [id number] [place] [address] Jan, [facility] [place] [facility] [address] [id number] [place] [address] Jan, [facility] [place] [facility] [address] [id number] [place] [address] Jan, [facility] [place] [facility] [address] [id number] [place] [address] Jan, [facility] [place] [facility] [address] [id number] [place] [address] Jan, [facility] [place] [facility] [address] [id number] [place] [address] Jan, [facility] [place] [facility] [address] [id number] [place] [address] Jan, [facility] [place] [facility] [address] [id number] [place] [address] Dec, [facility] [place] [facility] [address] [id number] [place] [address] Dec, [facility] [place] [facility] [address] [id number] [place] [address] Dec, [facility] [place] [facility] [address] [id number] [place] [address] Dec, [facility] [place] [facility] [address] [id number] [place] [address] Nov, [facility] [place] [facility] [address] [id number] [place] [address] Nov, [facility] [place] [facility] [address] [id number] [place] [address] Nov, [facility] [place] [facility] [address] [facility] [id number] [facility] [place] [address] Nov, [facility] [place] [facility] [address] [facility] [id number] [facility] [place] [address] Nov, [facility] [place] [facility] [address] [id number] [facility] [place] [address] Nov, [facility] [place] [facility] [address] [facility] [id number] [facility] [place] [address] Oct, [facility] [place] [facility] [address] [facility] [id number] [facility] [place] [address] Oct, [facility] [place] [facility] [address] [id number] [place] [address] Sep, [facility] [place] [facility] [address] [id number] [place] [address] Sep, [facility] [place] [facility] [address] [id number] [place] [address] Sep, [facility] [place] [facility] [address] [id number] [place] [address] Sep, [facility] [place] [facility] [address] [id number] [place] [address] Aug, [facility] [place] [facility] [address] [id number] [place] [address] Aug, [facility] [place] [facility] [address] [id number] [place] [address] Aug, [facility] [place] [facility] [address] [facility] [id number] [place] [address] Jul, [facility] [place] [facility] [address] [id number] [place] [address] Jul, [facility] [place] [facility] [address] [id number] [place] [address] Jul, [facility] [place] [facility] [address] [id number] [place] [address] Jul, [facility] [place] [facility] [address] [id number] [place] [address] June, [facility] [place] [facility] [address] [facility] [id number] [place] [address] June, [facility] [place] [facility] [address] [id number] [place] [address] May, [facility] [place] [facility] [address] [id number] [place] [address] May, [facility] [place] [facility] [address] [id number] [place] [address] Apr, [facility] [place] [facility] [address] [id number] [place] [address] Apr, [facility] [place] [facility] [address] [id number] [place] [address] Mar, [facility] [place] [facility] [address] [id number] [place] [address] Mar, [facility] [place] [facility] [address] [id number] [place] [address] Feb, [facility] [place] [facility] [address] [id number] [place] [address] 24 Feb, 2012 [facility] [place] [facility] [address] [id number] [place] [address] Feb, [facility] [place] [facility] [address] [id number] [place] [address] Feb, [facility] [place] [facility] [address] [id number] [place] [address] Feb, [facility] [place] [facility] [address] [id number] [place] [address] 16 Feb, 2012 [facility] [place] [facility] [address] [id number] [place] [address] 16 Feb, 2012 [facility] [place] [facility] [address] [id number] [place] [address] 14 Feb, 2012 [facility] [place] [facility] [address] [id number] [place] [address] Feb, [facility] [address] [id number] [place] [address] Jan, [facility] [address] [id number] [place] [address] Jan, [facility] [address] [id number] [place] [address] Jan, [facility] [address] [id number] [place] [address] Jan, [facility] [address] [id number] [place] [address] Dec, [facility] [address] [id number] [place] [address] Dec, [facility] [address] [id number] [place] [address] Dec, [facility] [id number] [place] [address] Dec, [facility] [address] [id number] [place] [address] Oct, [facility] [id number] [place] [address] Sep, [facility] [address] [id number] [place] [address] Sep, [facility] [address] [id number] [place] [address] Aug, [facility] [address] [id number] [place] [address] Jul, [facility] [address] [id number] [place] [address] June, [facility] [address] [id number] [place] [address] June, [facility] [address] [id number] [place] [address] May, [facility] [address] [id number] [place] [address] Apr, [facility] [address] [id number] [place] [address] Mar, [facility] [address] [id number] [place] [address] Mar, [facility] [address] [id number] [place] [address] Feb, [facility] [address] [id number] [place] [address] Dec, [facility] [address] [id number] [place] [address] Nov, [facility] [address] [id number] [place] [address] Sep, [facility] [address] [id number] [place] [address] Aug, IMMUNIZATIONS No Known Immunizations SOCIAL HISTORY [...]
--- OUTSIDE RECORDS SUMMARY | 2019-07-02 15:45 | XMS REPORT ---
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 Rigging Up Worker Name Role Phone MIGUE ESTRADA Unavailable PROBLEMS Type Condition ICD9-CM Code COA54-NE Code Onset Dates Condition S tatus SNOMED Code Problem Other and unspecified hyperlipidemia 272.4 Active 13890527 Problem Asthma J45.909 Active 523723547 Problem Alcoholism F10.20 Active 5807681 Problem Arthritis M19.90 Active 6874917 Problem Other chronic pain G89.29 Active 8 6447652 Problem Bipolar disorder F31.9 Active 137 56186 Problem Closed fracture of shaft of right fibula, unspecified fracture morphology, initial encounter S82.401A Active 76011200 Problem Major depressive disorder, single episode F32.9 Active 54408621 Problem Arthropathy, unspecified M12.9 Activ e [id number] ALLERGIES No Information ENCOUNTERS Encounter Location Date Diagnosis [place] [address] [address] Dec, Arthritis M19.90 ; Alcoholism F10.20 ; E ncounter for immunization Z23 and Breast cancer screening by mammogram Z12.31 [place] [address] [address] Sep, [place] [address] [address] Sep, Arthropathy of right ankle M19.071 [place] [address] [address] Aug, Pain in right ankle and joints of right foot M25.571 and Other chronic pain G89.29 [place] [address] [address] Jul, [place] [address] [address] Apr, [place] [address] [address] Apr, Injury of right ankle, initial encounter S99.911A and Encounter for immunization Z23 [place] [address] [address] Dec, [place] [address] [address] Nov, Pain in right ankle and joints of right foot M25.571 ; Other chronic pain G89.29 and Post-traumatic arthritis of right ankle M19.171 [place] [address] [address] Oct, Arthritis M19.90 [place] [address] [address] Aug, Arthritis M19.90 [place] [address] [address] Aug, [place] [address] [address] Jul, [place] [address] [address] June, Arthropathy, unspecified M12.9 [place] [address] [address] May, Asthma J45.909 and Major depressive diso rder, single episode F32.9 [place] [address] [address] Mar, Closed fracture of shaft of right fibula , unspecified fracture morphology, initial encounter S82.401A [place] [address] [address] Feb, [place] [address] [address] Feb, [facility] [address] [address] Nov, [facility] [address] [address] Nov, Bipolar disorder F31.9 ; Encounter for i mmunization Z23 and Asthma J45.909 [facility] [address] [address] Aug, [facility] [address] [address] May, [facility] [address] [address] Apr, [facility] [address] [address] Apr, [facility] [address] [address] Apr, URI (upper respiratory infection) J06.9 and Bipolar disorder F31.9 [facility] [address] [address] Feb, [facility] [address] [address] Feb, Asthma J45.909 and Alcoholism F10.20 [facility] [address] [address] Jan, [facility] [address] [address] Jan, [facility] [address] [address] Jan, [facility] [address] [address] Nov, Alcoholism F10.20 and Anxiety F41.9 [facility] [address] [address] Jul, Anxiety 300.00 and Arthropathy 716.90 [facility] [address] [place] [id number] [place] [address] Jul, [facility] [id number] [place] [address] Jul, Anxiety state 300.00 [facility] [id number] [place] [address] May, [facility] [id number] [place] [address] May, [facility] [place] [facility] [id number] [place] [address] Apr, [facility] [id number] [place] [address] Apr, [facility] [place] [facility] [id number] [place] [address] Mar, [facility] [id number] [place] [address] Mar, [facility] [id number] [place] [address] Feb, [facility] [id number] [place] [address] Feb, [facility] [place] [facility] [id number] [place] [address] Feb, [facility] [id number] [place] [address] Feb, [facility] [place] [facility] [id number] [place] [address] Jan, [facility] [place] [facility] [id number] [place] [address] Jan, [facility] [place] [facility] [id number] [place] [address] Jan, [facility] [place] [facility] [id number] [place] [address] Jan, [facility] [place] [facility] [id number] [place] [address] Nov, 2013 [facility] [place] [facility] [address] [facility] [id number] [place] [address] Nov, [facility] [place] [facility] [address] [facility] [id number] [place] [address] Nov, 2013 [facility] [place] [facility] [address] [id number] [place] [address] Nov, [facility] [place] [facility] [address] [facility] [id number] [place] [address] Nov, 2013 [facility] [place] [facility] [address] [facility] [id number] [place] [address] Nov, [facility] [place] [facility] [address] [id number] [place] [address] Nov, 2013 [facility] [place] [facility] [id number] [place] [address] Nov, 2013 [facility] [place] [facility] [id number] [place] [address] Nov, 2013 [facility] [place] [facility] [id number] [place] [address] Nov, [facility] [place] [facility] [id number] [place] [address] Nov, 2013 [facility] [place] [facility] [id number] [place] [address] Nov, 2013 [facility] [place] [facility] [id number] [place] [address] Nov, 2013 [facility] [place] [facility] [id number] [place] [address] 30 Oct, 2013 [facility] [place] [facility] [id number] [place] [address] 30 Sep, 2013 [facility] [place] [facility] [id number] [place] [address] Oct, 2013 [facility] [place] [facility] [address] [id number] [place] [address] Oct, 2013 [facility] [place] [facility] [id number] [place] [address] 08 Oct, 2013 [facility] [place] [facility] [address] [id number] [place] [address] Oct, 2013 [facility] [place] [facility] [address] [facility] [id number] [place] [address] Oct, 2013 [facility] [place] [facility] [address] [id number] [place] [address] Oct, 2013 [facility] [place] [facility] [address] [facility] [id number] [place] [address] Oct, 2013 [facility] [place] [facility] [address] [id number] [place] [address] Oct, 2013 [facility] [place] [facility] [address] [id number] [place] [address] Oct, 2013 [facility] [place] [facility] [id number] [place] [address] Oct, 2013 [facility] [place] [facility] [id number] [place] [address] Sep, 2013 [facility] [place] [facility] [address] [id number] [place] [address] Sep, [facility] [place] [facility] [address] [id number] [place] [address] Sep, [facility] [place] [facility] [address] [id number] [place] [address] Sep, 2013 [facility] [place] [facility] [address] [id number] [place] [address] Sep, [facility] [place] [facility] [address] [id number] [place] [address] Sep, [facility] [place] [facility] [address] [id number] [place] [address] Sep, [facility] [place] [facility] [address] [id number] [place] [address] Sep, [facility] [place] [facility] [address] [id number] [place] [address] Aug, [facility] [place] [facility] [id number] [place] [address] Aug, [facility] [place] [facility] [address] [id number] [place] [address] Aug, [facility] [place] [facility] [address] [id number] [place] [address] Aug, [facility] [place] [facility] [id number] [place] [address] Jul, [facility] [place] [facility] [id number] [place] [address] Jul, [facility] [place] [facility] [id number] [place] [address] Jul, [facility] [place] [facility] [id number] [place] [address] Jul, [facility] [place] [facility] [address] [id number] [place] [address] Jul, [facility] [place] [facility] [id number] [place] [address] Jul, [facility] [place] [facility] [id number] [place] [address] June, [facility] [place] [facility] [address] [id number] [place] [address] June, [facility] [place] [facility] [address] [id number] [place] [address] June, [facility] [place] [facility] [address] [id number] [place] [address] June, [facility] [place] [facility] [id number] [place] [address] June, [facility] [place] [facility] [id number] [place] [address] June, [facility] [place] [facility] [id number] [place] [address] May, [facility] [place] [facility] [id number] [place] [address] May, [facility] [place] [facility] [address] [facility] [id number] [facility] [place] [address] May, [facility] [place] [facility] [address] [facility] [id number] [place] [address] May, [facility] [place] [facility] [address] [id number] [facility] [place] [address] May, [facility] [place] [facility] [address] [facility] [id number] [place] [address] May, [facility] [place] [facility] [address] [facility] [id number] [facility] [place] [address] May, [facility] [place] [facility] [address] [id number] [place] [address] May, [facility] [place] [facility] [address] [id number] [facility] [place] [address] May, [facility] [place] [facility] [address] [id number] [facility] [place] [address] May, [facility] [place] [facility] [address] [id number] [place] [address] Apr, [facility] [place] [facility] [address] [id number] [place] [address] Apr, [facility] [place] [facility] [address] [id number] [place] [address] Apr, [facility] [place] [facility] [address] [id number] [place] [address] Apr, [facility] [place] [facility] [address] [id number] [facility] [place] [address] Apr, [facility] [place] [facility] [address] [id number] [place] [address] Apr, [facility] [place] [facility] [address] [id number] [place] [address] Apr, [facility] [place] [facility] [address] [id number] [place] [address] Apr, [facility] [place] [facility] [address] [id number] [place] [address] Apr, [facility] [place] [facility] [address] [id number] [place] [address] Apr, [facility] [place] [facility] [address] [id number] [place] [address] Apr, [facility] [place] [facility] [address] [id number] [place] [address] Apr, [facility] [place] [facility] [id number] [place] [address] Mar, [facility] [place] [facility] [address] [id number] [place] [address] Mar, [facility] [place] [facility] [address] [id number] [place] [address] Mar, [facility] [place] [facility] [id number] [place] [address] Mar, [facility] [place] [facility] [id number] [place] [address] Feb, [facility] [place] [facility] [id number] [place] [address] Feb, [facility] [place] [facility] [address] [id number] [place] [address] Feb, [facility] [place] [facility] [id number] [place] [address] Feb, [facility] [place] [facility] [id number] [place] [address] Feb, [facility] [place] [facility] [id number] [place] [address] Feb, [facility] [place] [facility] [id number] [place] [address] Feb, [facility] [place] [facility] [id number] [place] [address] Feb, [facility] [place] [facility] [id number] [place] [address] Feb, [facility] [place] [facility] [id number] [place] [address] Feb, [facility] [place] [facility] [id number] [place] [address] Jan, [facility] [place] [facility] [id number] [place] [address] Jan, [facility] [place] [facility] [id number] [place] [address] Jan, [facility] [place] [facility] [id number] [place] [address] Jan, [facility] [place] [facility] [id number] [place] [address] Jan, [facility] [place] [facility] [id number] [place] [address] Jan, [facility] [place] [facility] [id number] [place] [address] Jan, [facility] [place] [facility] [id number] [place] [address] Jan, [facility] [place] [facility] [id number] [place] [address] Jan, [facility] [place] [facility] [id number] [place] [address] Dec, [facility] [place] [facility] [id number] [place] [address] Dec, [facility] [place] [facility] [id number] [place] [address] Dec, [facility] [place] [facility] [id number] [place] [address] Dec, [facility] [place] [facility] [id number] [place] [address] Nov, [facility] [place] [facility] [id number] [place] [address] Nov, [facility] [place] [facility] [address] [id number] [place] [address] 10 Nov, 2012 [facility] [place] [facility] [address] [facility] [id number] [facility] [place] [address] Nov, [facility] [place] [facility] [address] [facility] [id number] [facility] [place] [address] Nov, [facility] [place] [facility] [address] [id number] [facility] [place] [address] Nov, [facility] [place] [facility] [address] [facility] [id number] [facility] [place] [address] Oct, [facility] [place] [facility] [address] [facility] [id number] [facility] [place] [address] Oct, [facility] [place] [facility] [id number] [place] [address] Sep, [facility] [place] [facility] [id number] [place] [address] Sep, [facility] [place] [facility] [id number] [place] [address] Sep, [facility] [place] [facility] [address] [facility] [id number] [facility] [place] [address] Sep, [facility] [place] [facility] [id number] [place] [address] Aug, [facility] [place] [facility] [id number] [place] [address] Aug, [facility] [place] [facility] [id number] [place] [address] Aug, [facility] [place] [facility] [address] [facility] [id number] [facility] [place] [address] Jul, [facility] [place] [facility] [id number] [place] [address] Jul, [facility] [place] [facility] [id number] [facility] [place] [address] Jul, [facility] [place] [facility] [id number] [place] [address] Jul, [facility] [place] [facility] [address] [id number] [place] [address] June, [facility] [place] [facility] [id number] [place] [address] June, [facility] [place] [facility] [id number] [place] [address] May, [facility] [place] [facility] [id number] [place] [address] May, [facility] [place] [facility] [id number] [place] [address] Apr, [facility] [place] [facility] [id number] [place] [address] Apr, [facility] [place] [facility] [id number] [place] [address] Mar, [facility] [place] [facility] [id number] [place] [address] Mar, [facility] [place] [facility] [id number] [place] [address] Feb, [facility] [place] [facility] [id number] [place] [address] 24 Feb, 2012 [facility] [place] [facility] [id number] [place] [address] Feb, [facility] [place] [facility] [id number] [place] [address] Feb, [facility] [place] [facility] [id number] [place] [address] 17 Feb, 2012 [facility] [place] [facility] [id number] [place] [address] 16 Feb, 2012 [facility] [place] [facility] [id number] [place] [address] 16 Feb, 2012 [facility] [place] [facility] [id number] [place] [address] 14 Feb, 2012 [facility] [place] [facility] [id number] [place] [address] Feb, [facility] [place] [facility] [id number] [place] [address] Jan, [facility] [place] [facility] [id number] [place] [address] Jan, [facility] [place] [facility] [id number] [place] [address] Jan, [facility] [place] [facility] [id number] [place] [address] Jan, [facility] [place] [facility] [id number] [place] [address] Dec, [facility] [place] [facility] [id number] [place] [address] Dec, [facility] [place] [facility] [id number] [place] [address] Dec, [facility] [place] [facility] [id number] [place] [address] Dec, [facility] [place] [facility] [id number] [place] [address] Oct, [facility] [place] [facility] [id number] [place] [address] Sep, [facility] [place] [facility] [id number] [place] [address] Sep, [facility] [place] [facility] [id number] [place] [address] Aug, [facility] [place] [facility] [address] [id number] [place] [address] Jul, [facility] [place] [facility] [id number] [place] [address] June, [facility] [place] [facility] [id number] [place] [address] June, [facility] [place] [facility] [id number] [place] [address] May, [facility] [place] [facility] [address] [id number] [place] [address] Apr, [facility] [id number] [place] [address] Mar, [facility] [id number] [place] [address] Mar, [facility] [address] [address] Feb, [facility] [address] [address] Dec, [facility] [id number] [place] [address] Nov, [facility] [id number] [place] [address] Sep, [facility] [id number] [place] [address] Aug, IMMUNIZATIONS No Known Immunizations SOCIAL HISTORY [...]
--- OUTSIDE RECORDS SUMMARY | 2019-07-02 15:45 | XMS REPORT ---
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 Name Role Phone MIGUE ESTRADA Unavailable PROBLEMS Type Condition ICD9-CM Code ROZ95-SS Code Onset Dates Condition S tatus SNOMED Code Problem Other and unspecified hyperlipidemia 272.4 Active 30612371 Problem Asthma J45.909 Active 075609003 Problem Alcoholism F10.20 Active 2409676 Problem Arthritis M19.90 Active 1207864 Problem Other chronic pain G89.29 Active 8 0348328 Problem Bipolar disorder F31.9 Active 137 82518 Problem Closed fracture of shaft of right fibula, unspecified fracture morphology, initial encounter S82.401A Active 28752181 Problem Major depressive disorder, single episode F32.9 Active 35279560 Problem Arthropathy, unspecified M12.9 Activ e [id number] ALLERGIES No Information ENCOUNTERS Encounter Location Date Diagnosis [place] [address] [address] Dec, Arthritis M19.90 ; Alcoholism F10.20 ; E ncounter for immunization Z23 and Breast cancer screening by mammogram Z12.31 [place] [address] [address] Sep, [place] [address] [address] Sep, Arthropathy of right ankle M19.071 [place] [address] [address] Aug, Pain in right ankle and joints of right foot M25.571 and Other chronic pain G89.29 [place] [address] [address] Jul, [place] [address] [address] Apr, [place] [address] [address] Apr, Injury of right ankle, initial encounter S99.911A and Encounter for immunization Z23 [place] [address] [address] Dec, [place] [address] [address] Nov, Pain in right ankle and joints of right foot M25.571 ; Other chronic pain G89.29 and Post-traumatic arthritis of right ankle M19.171 [place] [address] [address] Oct, Arthritis M19.90 [place] [address] [address] Aug, Arthritis M19.90 [place] [address] [address] Aug, [place] [address] [address] Jul, [place] [address] [address] June, Arthropathy, unspecified M12.9 [place] [address] [address] May, Asthma J45.909 and Major depressive diso rder, single episode F32.9 [place] [address] [address] Mar, Closed fracture of shaft of right fibula , unspecified fracture morphology, initial encounter S82.401A [place] [address] [address] Feb, [place] [address] [address] Feb, [facility] [address] [address] Nov, [facility] [address] [address] Nov, Bipolar disorder F31.9 ; Encounter for i mmunization Z23 and Asthma J45.909 [facility] [address] [address] Aug, [facility] [address] [address] May, [facility] [address] [address] Apr, [facility] [address] [address] Apr, [facility] [address] [address] Apr, URI (upper respiratory infection) J06.9 and Bipolar disorder F31.9 [facility] [address] [address] Feb, [facility] [address] [address] Feb, Asthma J45.909 and Alcoholism F10.20 [facility] [address] [address] Jan, [facility] [address] [address] Jan, [facility] [address] [address] Jan, [facility] [address] [address] Nov, Alcoholism F10.20 and Anxiety F41.9 [facility] [address] [address] Jul, Anxiety 300.00 and Arthropathy 716.90 [facility] [address] [place] [id number] [place] [address] Jul, [facility] [address] [place] [id number] [place] [address] Jul, Anxiety state 300.00 [facility] [address] [id number] [place] [address] May, [facility] [address] [place] [id number] [place] [address] May, [facility] [place] [facility] [address] [place] [address] [id number] [place] [address] Apr, [facility] [address] [place] [id number] [place] [address] Apr, [facility] [place] [facility] [address] [place] [id number] [place] [address] Mar, [facility] [address] [place] [address] [id number] [place] [address] Mar, [facility] [address] [place] [address] [id number] [place] [address] Feb, [facility] [address] [place] [address] [id number] [place] [address] Feb, [facility] [place] [facility] [address] [place] [address] [id number] [place] [address] Feb, [facility] [address] [place] [address] [id number] [place] [address] Feb, [facility] [place] [facility] [address] [place] [address] [id number] [place] [address] Jan, [facility] [place] [facility] [address] [place] [address] [id number] [place] [address] Jan, [facility] [place] [facility] [address] [place] [address] [id number] [place] [address] Jan, [facility] [place] [facility] [address] [id number] [place] [address] Jan, [facility] [place] [facility] [address] [place] [id number] [place] [address] Nov, 2013 [facility] [place] [facility] [address] [facility] [id number] [place] [address] Nov, [facility] [place] [facility] [address] [facility] [id number] [place] [address] Nov, 2013 [facility] [place] [facility] [address] [id number] [place] [address] Nov, [facility] [place] [facility] [address] [facility] [id number] [place] [address] Nov, 2013 [facility] [place] [facility] [address] [facility] [id number] [place] [address] Nov, [facility] [place] [facility] [address] [id number] [place] [address] Nov, 2013 [facility] [place] [facility] [address] [id number] [place] [address] Nov, 2013 [facility] [place] [facility] [address] [id number] [place] [address] Nov, 2013 [facility] [place] [facility] [address] [id number] [place] [address] Nov, [facility] [place] [facility] [address] [id number] [place] [address] Nov, 2013 [facility] [place] [facility] [address] [id number] [place] [address] Nov, 2013 [facility] [place] [facility] [address] [id number] [place] [address] Nov, 2013 [facility] [place] [facility] [address] [id number] [place] [address] 30 Oct, 2013 [facility] [place] [facility] [address] [id number] [place] [address] 30 Sep, 2013 [facility] [place] [facility] [address] [id number] [place] [address] Oct, 2013 [facility] [place] [facility] [address] [id number] [place] [address] Oct, 2013 [facility] [place] [facility] [address] [id number] [place] [address] 08 Oct, 2013 [facility] [place] [facility] [address] [id number] [place] [address] Oct, 2013 [facility] [place] [facility] [address] [facility] [id number] [place] [address] Oct, 2013 [facility] [place] [facility] [address] [id number] [place] [address] Oct, 2013 [facility] [place] [facility] [address] [facility] [id number] [place] [address] Oct, 2013 [facility] [place] [facility] [address] [id number] [place] [address] Oct, 2013 [facility] [place] [facility] [address] [id number] [place] [address] Oct, 2013 [facility] [place] [facility] [address] [id number] [place] [address] Oct, 2013 [facility] [place] [facility] [address] [id number] [place] [address] Sep, 2013 [facility] [place] [facility] [address] [id number] [place] [address] Sep, [facility] [place] [facility] [address] [id number] [place] [address] Sep, [facility] [place] [facility] [address] [id number] [place] [address] Sep, 2013 [facility] [place] [facility] [address] [id number] [place] [address] Sep, [facility] [place] [facility] [address] [id number] [place] [address] Sep, [facility] [place] [facility] [address] [id number] [place] [address] Sep, [facility] [place] [facility] [address] [id number] [place] [address] Sep, [facility] [place] [facility] [address] [id number] [place] [address] Aug, [facility] [place] [facility] [address] [id number] [place] [address] Aug, [facility] [place] [facility] [address] [id number] [place] [address] Aug, [facility] [place] [facility] [address] [id number] [place] [address] Aug, [facility] [place] [facility] [address] [id number] [place] [address] Jul, [facility] [place] [facility] [address] [id number] [place] [address] Jul, [facility] [place] [facility] [address] [id number] [place] [address] Jul, [facility] [place] [facility] [address] [id number] [place] [address] Jul, [facility] [place] [facility] [address] [id number] [place] [address] Jul, [facility] [place] [facility] [address] [id number] [place] [address] Jul, [facility] [place] [facility] [address] [id number] [place] [address] June, [facility] [place] [facility] [address] [id number] [place] [address] June, [facility] [place] [facility] [address] [id number] [place] [address] June, [facility] [place] [facility] [address] [id number] [place] [address] June, [facility] [place] [facility] [address] [id number] [place] [address] June, [facility] [place] [facility] [address] [id number] [place] [address] June, [facility] [place] [facility] [address] [id number] [place] [address] May, [facility] [place] [facility] [address] [id number] [place] [address] May, [facility] [place] [facility] [address] [facility] [id number] [facility] [address] May, [facility] [place] [facility] [address] [facility] [id number] [place] [address] May, [facility] [place] [facility] [address] [id number] [facility] [address] May, [facility] [place] [facility] [address] [facility] [id number] [place] [address] May, [facility] [place] [facility] [address] [facility] [id number] [facility] [address] May, [facility] [place] [facility] [address] [id number] [place] [address] May, [facility] [place] [facility] [address] [id number] [facility] [address] May, [facility] [place] [facility] [address] [id number] [facility] [address] May, [facility] [place] [facility] [address] [id number] [place] [address] Apr, [facility] [place] [facility] [address] [id number] [place] [address] Apr, [facility] [place] [facility] [address] [id number] [place] [address] Apr, [facility] [place] [facility] [address] [id number] [place] [address] Apr, [facility] [place] [facility] [address] [id number] [facility] [address] Apr, [facility] [place] [facility] [address] [id number] [place] [address] Apr, [facility] [place] [facility] [address] [id number] [place] [address] Apr, [facility] [place] [facility] [address] [id number] [place] [address] Apr, [facility] [place] [facility] [address] [id number] [place] [address] Apr, [facility] [place] [facility] [address] [id number] [place] [address] Apr, [facility] [place] [facility] [address] [id number] [place] [address] Apr, [facility] [place] [facility] [address] [id number] [place] [address] Apr, [facility] [place] [facility] [address] [id number] [place] [address] Mar, [facility] [place] [facility] [address] [id number] [place] [address] Mar, [facility] [place] [facility] [address] [id number] [place] [address] Mar, [facility] [place] [facility] [address] [id number] [place] [address] Mar, [facility] [place] [facility] [address] [id number] [place] [address] Feb, [facility] [place] [facility] [address] [id number] [place] [address] Feb, [facility] [place] [facility] [address] [id number] [place] [address] Feb, [facility] [place] [facility] [address] [id number] [place] [address] Feb, [facility] [place] [facility] [address] [id number] [place] [address] Feb, [facility] [place] [facility] [address] [id number] [place] [address] Feb, [facility] [place] [facility] [address] [id number] [place] [address] Feb, [facility] [place] [facility] [address] [id number] [place] [address] Feb, [facility] [place] [facility] [address] [id number] [place] [address] Feb, [facility] [place] [facility] [address] [id number] [place] [address] Feb, [facility] [place] [facility] [address] [id number] [place] [address] Jan, [facility] [place] [facility] [address] [id number] [place] [address] Jan, [facility] [place] [facility] [address] [id number] [place] [address] Jan, [facility] [place] [facility] [address] [id number] [place] [address] Jan, [facility] [place] [facility] [address] [id number] [place] [address] Jan, [facility] [place] [facility] [address] [id number] [place] [address] Jan, [facility] [place] [facility] [address] [id number] [place] [address] Jan, [facility] [place] [facility] [address] [id number] [place] [address] Jan, [facility] [place] [facility] [address] [id number] [place] [address] Jan, [facility] [place] [facility] [address] [id number] [place] [address] Dec, [facility] [place] [facility] [address] [id number] [place] [address] Dec, [facility] [place] [facility] [address] [id number] [place] [address] Dec, [facility] [place] [facility] [address] [id number] [place] [address] Dec, [facility] [place] [facility] [address] [id number] [place] [address] Nov, [facility] [place] [facility] [address] [id number] [place] [address] Nov, [facility] [place] [facility] [address] [id number] [place] [address] 10 Nov, 2012 [facility] [place] [facility] [address] [facility] [id number] [facility] [place] [address] Nov, [facility] [place] [facility] [address] [facility] [id number] [facility] [place] [address] Nov, [facility] [place] [facility] [address] [id number] [facility] [place] [address] Nov, [facility] [place] [facility] [address] [facility] [id number] [facility] [place] [address] Oct, [facility] [place] [facility] [address] [facility] [id number] [facility] [place] [address] Oct, [facility] [place] [facility] [address] [id number] [place] [address] Sep, [facility] [place] [facility] [address] [id number] [place] [address] Sep, [facility] [place] [facility] [address] [id number] [place] [address] Sep, [facility] [place] [facility] [address] [facility] [id number] [facility] [place] [address] Sep, [facility] [place] [facility] [address] [id number] [place] [address] Aug, [facility] [place] [facility] [address] [id number] [place] [address] Aug, [facility] [place] [facility] [address] [id number] [place] [address] Aug, [facility] [place] [facility] [address] [facility] [id number] [facility] [place] [address] Jul, [facility] [place] [facility] [address] [id number] [place] [address] Jul, [facility] [place] [facility] [address] [id number] [facility] [address] Jul, [facility] [place] [facility] [address] [id number] [place] [address] Jul, [facility] [place] [facility] [address] [id number] [place] [address] June, [facility] [place] [facility] [address] [id number] [place] [address] June, [facility] [place] [facility] [address] [id number] [place] [address] May, [facility] [place] [facility] [address] [id number] [place] [address] May, [facility] [place] [facility] [address] [id number] [place] [address] Apr, [facility] [place] [facility] [address] [id number] [place] [address] Apr, [facility] [place] [facility] [address] [id number] [place] [address] Mar, [facility] [place] [facility] [address] [id number] [place] [address] Mar, [facility] [place] [facility] [address] [id number] [place] [address] Feb, [facility] [place] [facility] [address] [id number] [place] [address] 24 Feb, 2012 [facility] [place] [facility] [address] [id number] [place] [address] Feb, [facility] [place] [facility] [address] [id number] [place] [address] Feb, [facility] [place] [facility] [address] [id number] [place] [address] 17 Feb, 2012 [facility] [place] [facility] [address] [id number] [place] [address] 16 Feb, 2012 [facility] [place] [facility] [address] [id number] [place] [address] 16 Feb, 2012 [facility] [place] [facility] [address] [id number] [place] [address] 14 Feb, 2012 [facility] [place] [facility] [address] [id number] [place] [address] Feb, [facility] [place] [facility] [address] [id number] [place] [address] Jan, [facility] [place] [facility] [address] [id number] [place] [address] Jan, [facility] [place] [facility] [address] [id number] [place] [address] Jan, [facility] [place] [facility] [address] [id number] [place] [address] Jan, [facility] [place] [facility] [address] [id number] [place] [address] Dec, [facility] [place] [facility] [address] [id number] [place] [address] Dec, [facility] [place] [facility] [address] [id number] [place] [address] Dec, [facility] [place] [facility] [address] [id number] [place] [address] Dec, [facility] [place] [facility] [address] [id number] [place] [address] Oct, [facility] [place] [facility] [address] [id number] [place] [address] Sep, [facility] [place] [facility] [address] [id number] [place] [address] Sep, [facility] [place] [facility] [address] [id number] [place] [address] Aug, [facility] [place] [facility] [address] [id number] [place] [address] Jul, [facility] [place] [facility] [address] [id number] [place] [address] June, [facility] [address] [id number] [place] [address] June, [facility] [address] [id number] [place] [address] May, [facility] [address] [id number] [place] [address] Apr, [facility] [id number] [place] [address] Mar, [facility] [id number] [place] [address] Mar, [facility] [address] [address] Feb, [facility] [address] [address] Dec, [facility] [id number] [place] [address] Nov, [facility] [id number] [place] [address] Sep, [facility] [id number] [place] [address] Aug, IMMUNIZATIONS No Known Immunizations SOCIAL HISTORY [...]
--- OUTSIDE RECORDS SUMMARY | 2019-07-02 15:45 | XMS REPORT ---
Author Author Madina ESTRADA Organization [facility] Address [address] [place] [address] Care Team Providers Care Surveyor Chain Helper Name Role Phone MIGUE ESTRADA Unavailable PROBLEMS Type Condition ICD9-CM Code CMH52-HB Code Onset Dates Condition S tatus SNOMED Code Problem Other and unspecified hyperlipidemia 272.4 Active 80833708 Problem Asthma J45.909 Active 423388529 Problem Alcoholism F10.20 Active 0578316 Problem Arthritis M19.90 Active 5387647 Problem Other chronic pain G89.29 Active 8 0085636 Problem Bipolar disorder F31.9 Active 137 83875 Problem Closed fracture of shaft of right fibula, unspecified fracture morphology, initial encounter S82.401A Active 81597695 Problem Major depressive disorder, single episode F32.9 Active 81392810 Problem Arthropathy, unspecified M12.9 Activ e [id number] ALLERGIES No Information ENCOUNTERS Encounter Location Date Diagnosis [place] [address] [address] Dec, Arthritis M19.90 ; Alcoholism F10.20 ; E ncounter for immunization Z23 and Breast cancer screening by mammogram Z12.31 [place] [address] [address] Sep, [place] [address] [address] Sep, Arthropathy of right ankle M19.071 [place] [address] [address] Aug, Pain in right ankle and joints of right foot M25.571 and Other chronic pain G89.29 [place] [address] [address] Jul, [place] [address] [address] Apr, [place] [address] [address] Apr, Injury of right ankle, initial encounter S99.911A and Encounter for immunization Z23 [place] [address] [address] Dec, [place] [address] [address] Nov, Pain in right ankle and joints of right foot M25.571 ; Other chronic pain G89.29 and Post-traumatic arthritis of right ankle M19.171 [place] [address] [address] Oct, Arthritis M19.90 [place] [address] [address] Aug, Arthritis M19.90 [place] [address] [address] Aug, [place] [address] [address] Jul, [place] [address] [address] June, Arthropathy, unspecified M12.9 [place] [address] [address] May, Asthma J45.909 and Major depressive diso rder, single episode F32.9 [place] [address] [address] Mar, Closed fracture of shaft of right fibula , unspecified fracture morphology, initial encounter S82.401A [place] [address] [address] Feb, [place] [address] [address] Feb, [facility] [address] [address] Nov, [facility] [address] [address] Nov, Bipolar disorder F31.9 ; Encounter for i mmunization Z23 and Asthma J45.909 [facility] [address] [address] Aug, [facility] [address] [address] May, [facility] [address] [address] Apr, [facility] [address] [address] Apr, [facility] [address] [address] Apr, URI (upper respiratory infection) J06.9 and Bipolar disorder F31.9 [facility] [address] [address] Feb, [facility] [address] [address] Feb, Asthma J45.909 and Alcoholism F10.20 [facility] [address] [address] Jan, [facility] [address] [address] Jan, [facility] [address] [address] Jan, [facility] [address] [address] Nov, Alcoholism F10.20 and Anxiety F41.9 [facility] [address] [address] Jul, Anxiety 300.00 and Arthropathy 716.90 [facility] [address] [place] [id number] [place] [address] Jul, [facility] [address] [id number] [place] [address] Jul, Anxiety state 300.00 [facility] [address] [id number] [place] [address] May, [facility] [address] [place] [address] [id number] [place] [address] May, [facility] [place] [facility] [address] [place] [address] [id number] [place] [address] Apr, [facility] [address] [place] [id number] [place] [address] Apr, [facility] [place] [facility] [address] [place] [address] [id number] [place] [address] Mar, [facility] [id number] [place] [address] Mar, [facility] [address] [place] [address] [id number] [place] [address] Feb, [facility] [address] [address] [id number] [place] [address] Feb, [facility] [place] [facility] [id number] [place] [address] Feb, [facility] [id number] [place] [address] Feb, [facility] [place] [facility] [id number] [place] [address] Jan, [facility] [place] [facility] [id number] [place] [address] Jan, [facility] [place] [facility] [id number] [place] [address] Jan, [facility] [place] [facility] [address] [id number] [place] [address] Jan, [facility] [place] [facility] [address] [place] [address] [id number] [place] [address] Nov, 2013 [facility] [place] [facility] [address] [facility] [id number] [place] [address] Nov, [facility] [place] [facility] [address] [facility] [id number] [place] [address] Nov, 2013 [facility] [place] [facility] [address] [id number] [place] [address] Nov, [facility] [place] [facility] [address] [facility] [id number] [place] [address] Nov, 2013 [facility] [place] [facility] [address] [facility] [id number] [place] [address] Nov, [facility] [place] [facility] [address] [id number] [place] [address] Nov, 2013 [facility] [place] [facility] [address] [id number] [place] [address] Nov, 2013 [facility] [place] [facility] [address] [id number] [place] [address] Nov, 2013 [facility] [place] [facility] [address] [id number] [place] [address] Nov, [facility] [place] [facility] [address] [id number] [place] [address] Nov, 2013 [facility] [place] [facility] [address] [id number] [place] [address] Nov, 2013 [facility] [place] [facility] [address] [id number] [place] [address] Nov, 2013 [facility] [place] [facility] [address] [id number] [place] [address] 30 Oct, 2013 [facility] [place] [facility] [address] [id number] [place] [address] 30 Sep, 2013 [facility] [place] [facility] [address] [id number] [place] [address] Oct, 2013 [facility] [place] [facility] [address] [id number] [place] [address] Oct, 2013 [facility] [place] [facility] [address] [id number] [place] [address] 08 Oct, 2013 [facility] [place] [facility] [address] [id number] [place] [address] Oct, 2013 [facility] [place] [facility] [address] [facility] [id number] [place] [address] Oct, 2013 [facility] [place] [facility] [address] [id number] [place] [address] Oct, 2013 [facility] [place] [facility] [address] [facility] [id number] [place] [address] Oct, 2013 [facility] [place] [facility] [address] [id number] [place] [address] Oct, 2013 [facility] [place] [facility] [address] [id number] [place] [address] Oct, 2013 [facility] [place] [facility] [address] [id number] [place] [address] Oct, 2013 [facility] [place] [facility] [address] [id number] [place] [address] Sep, 2013 [facility] [place] [facility] [address] [id number] [place] [address] Sep, [facility] [place] [facility] [address] [id number] [place] [address] Sep, [facility] [place] [facility] [address] [id number] [place] [address] Sep, 2013 [facility] [place] [facility] [address] [id number] [place] [address] Sep, [facility] [place] [facility] [address] [id number] [place] [address] Sep, [facility] [place] [facility] [address] [id number] [place] [address] Sep, [facility] [place] [facility] [address] [id number] [place] [address] Sep, [facility] [place] [facility] [address] [id number] [place] [address] Aug, [facility] [place] [facility] [address] [id number] [place] [address] Aug, [facility] [place] [facility] [address] [id number] [place] [address] Aug, [facility] [place] [facility] [address] [id number] [place] [address] Aug, [facility] [place] [facility] [address] [id number] [place] [address] Jul, [facility] [place] [facility] [address] [id number] [place] [address] Jul, [facility] [place] [facility] [address] [id number] [place] [address] Jul, [facility] [place] [facility] [address] [id number] [place] [address] Jul, [facility] [place] [facility] [address] [id number] [place] [address] Jul, [facility] [place] [facility] [address] [id number] [place] [address] Jul, [facility] [place] [facility] [address] [id number] [place] [address] June, [facility] [place] [facility] [address] [id number] [place] [address] June, [facility] [place] [facility] [address] [id number] [place] [address] June, [facility] [place] [facility] [address] [id number] [place] [address] June, [facility] [place] [facility] [address] [id number] [place] [address] June, [facility] [place] [facility] [address] [id number] [place] [address] June, [facility] [place] [facility] [address] [id number] [place] [address] May, [facility] [place] [facility] [address] [id number] [place] [address] May, [facility] [place] [facility] [address] [facility] [id number] [place] [address] May, [facility] [place] [facility] [address] [facility] [id number] [place] [address] May, [facility] [place] [facility] [address] [id number] [place] [address] May, [facility] [place] [facility] [address] [facility] [id number] [place] [address] May, [facility] [place] [facility] [address] [facility] [id number] [place] [address] May, [facility] [place] [facility] [address] [id number] [place] [address] May, [facility] [place] [facility] [address] [id number] [place] [address] May, [facility] [place] [facility] [address] [id number] [place] [address] May, [facility] [place] [facility] [address] [id number] [place] [address] Apr, [facility] [place] [facility] [address] [id number] [place] [address] Apr, [facility] [place] [facility] [address] [id number] [place] [address] Apr, [facility] [place] [facility] [address] [id number] [place] [address] Apr, [facility] [place] [facility] [address] [id number] [place] [address] Apr, [facility] [place] [facility] [address] [id number] [place] [address] Apr, [facility] [place] [facility] [address] [id number] [place] [address] Apr, [facility] [place] [facility] [address] [id number] [place] [address] Apr, [facility] [place] [facility] [address] [id number] [place] [address] Apr, [facility] [place] [facility] [address] [id number] [place] [address] Apr, [facility] [place] [facility] [address] [id number] [place] [address] Apr, [facility] [place] [facility] [address] [id number] [place] [address] Apr, [facility] [place] [facility] [address] [id number] [place] [address] Mar, [facility] [place] [facility] [address] [id number] [place] [address] Mar, [facility] [place] [facility] [address] [id number] [place] [address] Mar, [facility] [place] [facility] [address] [id number] [place] [address] Mar, [facility] [place] [facility] [address] [id number] [place] [address] Feb, [facility] [place] [facility] [address] [id number] [place] [address] Feb, [facility] [place] [facility] [address] [id number] [place] [address] Feb, [facility] [place] [facility] [address] [id number] [place] [address] Feb, [facility] [place] [facility] [address] [id number] [place] [address] Feb, [facility] [place] [facility] [address] [id number] [place] [address] Feb, [facility] [place] [facility] [address] [id number] [place] [address] Feb, [facility] [place] [facility] [address] [id number] [place] [address] Feb, [facility] [place] [facility] [address] [id number] [place] [address] Feb, [facility] [place] [facility] [address] [id number] [place] [address] Feb, [facility] [place] [facility] [address] [id number] [place] [address] Jan, [facility] [place] [facility] [address] [id number] [place] [address] Jan, [facility] [place] [facility] [address] [id number] [place] [address] Jan, [facility] [place] [facility] [address] [id number] [place] [address] Jan, [facility] [place] [facility] [address] [id number] [place] [address] Jan, [facility] [place] [facility] [address] [id number] [place] [address] Jan, [facility] [place] [facility] [address] [id number] [place] [address] Jan, [facility] [place] [facility] [address] [id number] [place] [address] Jan, [facility] [place] [facility] [address] [id number] [place] [address] Jan, [facility] [place] [facility] [address] [id number] [place] [address] Dec, [facility] [place] [facility] [address] [id number] [place] [address] Dec, [facility] [place] [facility] [address] [id number] [place] [address] Dec, [facility] [place] [facility] [address] [id number] [place] [address] Dec, [facility] [place] [facility] [address] [id number] [place] [address] Nov, [facility] [place] [facility] [address] [id number] [place] [address] Nov, [facility] [place] [facility] [address] [id number] [place] [address] 10 Nov, 2012 [facility] [place] [facility] [address] [facility] [id number] [place] [address] Nov, [facility] [place] [facility] [address] [facility] [id number] [place] [address] Nov, [facility] [place] [facility] [address] [id number] [place] [address] Nov, [facility] [place] [facility] [address] [facility] [id number] [place] [address] Oct, [facility] [place] [facility] [address] [facility] [id number] [place] [address] Oct, [facility] [place] [facility] [address] [id number] [place] [address] Sep, [facility] [place] [facility] [address] [id number] [place] [address] Sep, [facility] [place] [facility] [address] [id number] [place] [address] Sep, [facility] [place] [facility] [address] [facility] [id number] [place] [address] Sep, [facility] [place] [facility] [address] [id number] [place] [address] Aug, [facility] [place] [facility] [address] [id number] [place] [address] Aug, [facility] [place] [facility] [address] [id number] [place] [address] Aug, [facility] [place] [facility] [address] [facility] [id number] [place] [address] Jul, [facility] [place] [facility] [address] [id number] [place] [address] Jul, [facility] [place] [facility] [address] [id number] [place] [address] Jul, [facility] [place] [facility] [address] [id number] [place] [address] Jul, [facility] [place] [facility] [address] [id number] [place] [address] June, [facility] [place] [facility] [address] [id number] [place] [address] June, [facility] [place] [facility] [address] [id number] [place] [address] May, [facility] [place] [facility] [address] [id number] [place] [address] May, [facility] [place] [facility] [address] [id number] [place] [address] Apr, [facility] [place] [facility] [address] [id number] [place] [address] Apr, [facility] [place] [facility] [address] [id number] [place] [address] Mar, [facility] [place] [facility] [address] [id number] [place] [address] Mar, [facility] [place] [facility] [address] [id number] [place] [address] Feb, [facility] [place] [facility] [address] [id number] [place] [address] 24 Feb, 2012 [facility] [place] [facility] [address] [id number] [place] [address] Feb, [facility] [place] [facility] [address] [id number] [place] [address] Feb, [facility] [place] [facility] [address] [id number] [place] [address] 17 Feb, 2012 [facility] [place] [facility] [address] [id number] [place] [address] 16 Feb, 2012 [facility] [place] [facility] [address] [id number] [place] [address] 16 Feb, 2012 [facility] [place] [facility] [address] [id number] [place] [address] 14 Feb, 2012 [facility] [place] [facility] [address] [id number] [place] [address] Feb, [facility] [place] [facility] [address] [id number] [place] [address] Jan, [facility] [place] [facility] [address] [id number] [place] [address] Jan, [facility] [place] [facility] [address] [id number] [place] [address] Jan, [facility] [place] [facility] [address] [id number] [place] [address] Jan, [facility] [place] [facility] [address] [id number] [place] [address] Dec, [facility] [place] [facility] [address] [id number] [place] [address] Dec, [facility] [place] [facility] [address] [id number] [place] [address] Dec, [facility] [place] [facility] [address] [id number] [place] [address] Dec, [facility] [place] [facility] [address] [id number] [place] [address] Oct, [facility] [place] [facility] [address] [id number] [place] [address] Sep, [facility] [place] [facility] [address] [id number] [place] [address] Sep, [facility] [place] [facility] [address] [id number] [place] [address] Aug, [facility] [place] [facility] [address] [id number] [place] [address] Jul, [facility] [address] [id number] [place] [address] June, [facility] [address] [id number] [place] [address] June, [facility] [address] [id number] [place] [address] May, [facility] [address] [id number] [place] [address] Apr, [facility] [id number] [place] [address] Mar, [facility] [id number] [place] [address] Mar, [facility] [address] [address] Feb, [facility] [address] [address] Dec, [facility] [id number] [place] [address] Nov, [facility] [id number] [place] [address] Sep, [facility] [id number] [place] [address] Aug, IMMUNIZATIONS No Known Immunizations SOCIAL HISTORY [...]
--- OUTSIDE RECORDS SUMMARY | 2019-07-02 15:45 | XMS REPORT ---
Author Author Madina ESTRADA Organization [facility] Address [address] [place] [address] Care Team Providers Care Medical Management Trainer Name Role Phone MIGUE ESTRADA Unavailable PROBLEMS Type Condition ICD9-CM Code [id number] Code Onset Dates Condition S tatus SNOMED Code Problem Other and unspecified hyperlipidemia 272.4 Active 81590160 Problem Asthma J45.909 Active 722192162 Problem Alcoholism F10.20 Active 9453502 Problem Arthritis M19.90 Active 4511587 Problem Other chronic pain G89.29 Active 8 8297043 Problem Bipolar disorder F31.9 Active 137 12275 Problem Closed fracture of shaft of right fibula, unspecified fracture morphology, initial encounter S82.401A Active 97743994 Problem Major depressive disorder, single episode F32.9 Active 70707815 Problem Arthropathy, unspecified M12.9 Activ e [id number] ALLERGIES No Information ENCOUNTERS Encounter Location Date Diagnosis [place] [address] [address] Dec, Arthritis M19.90 ; Alcoholism F10.20 ; E ncounter for immunization Z23 and Breast cancer screening by mammogram Z12.31 [place] [address] [address] Sep, [place] [address] [address] Sep, Arthropathy of right ankle M19.071 [place] [address] [address] Aug, Pain in right ankle and joints of right foot M25.571 and Other chronic pain G89.29 [place] [address] [address] Jul, [place] [address] [address] Apr, [place] [address] [address] Apr, Injury of right ankle, initial encounter S99.911A and Encounter for immunization Z23 [place] [address] [address] Dec, [place] [address] [address] Nov, Pain in right ankle and joints of right foot M25.571 ; Other chronic pain G89.29 and Post-traumatic arthritis of right ankle M19.171 [place] [address] [address] Oct, Arthritis M19.90 [place] [address] [address] Aug, Arthritis M19.90 [place] [address] [address] Aug, [place] [address] [address] Jul, [place] [address] [address] June, Arthropathy, unspecified M12.9 [place] [address] [address] May, Asthma J45.909 and Major depressive diso rder, single episode F32.9 [place] [address] [address] Mar, Closed fracture of shaft of right fibula , unspecified fracture morphology, initial encounter S82.401A [place] [address] [address] Feb, [place] [address] [address] Feb, [facility] [address] [address] Nov, [facility] [address] [address] Nov, Bipolar disorder F31.9 ; Encounter for i mmunization Z23 and Asthma J45.909 [facility] [address] [address] Aug, [facility] [address] [address] May, [facility] [address] [address] Apr, [facility] [address] [address] Apr, [facility] [address] [address] Apr, URI (upper respiratory infection) J06.9 and Bipolar disorder F31.9 [facility] [address] [address] Feb, [facility] [address] [address] Feb, Asthma J45.909 and Alcoholism F10.20 [facility] [address] [address] Jan, [facility] [address] [address] Jan, [facility] [address] [address] Jan, [facility] [address] [address] Nov, Alcoholism F10.20 and Anxiety F41.9 [facility] [address] [address] Jul, Anxiety 300.00 and Arthropathy 716.90 [facility] [address] [place] [id number] [place] [address] Jul, [facility] [address] [place] [id number] [place] [address] Jul, Anxiety state 300.00 [facility] [address] [id number] [place] [address] May, [facility] [address] [place] [id number] [place] [address] May, [facility] [place] [facility] [address] [place] [id number] [place] [address] Apr, [facility] [address] [place] [id number] [place] [address] Apr, [facility] [place] [facility] [address] [place] [id number] [place] [address] Mar, [facility] [address] [place] [id number] [place] [address] Mar, [facility] [address] [place] [id number] [place] [address] Feb, [facility] [address] [place] [id number] [place] [address] Feb, [facility] [place] [facility] [address] [place] [id number] [place] [address] Feb, [facility] [address] [place] [id number] [place] [address] Feb, [facility] [place] [facility] [address] [place] [id number] [place] [address] Jan, [facility] [place] [facility] [address] [place] [id number] [place] [address] Jan, [facility] [place] [facility] [address] [place] [id number] [place] [address] Jan, [facility] [place] [facility] [address] [id number] [place] [address] Jan, [facility] [place] [facility] [address] [place] [id number] [place] [address] Nov, 2013 [facility] [place] [facility] [address] [facility] [id number] [place] [address] Nov, [facility] [place] [facility] [address] [facility] [id number] [place] [address] Nov, 2013 [facility] [place] [facility] [address] [id number] [place] [address] Nov, [facility] [place] [facility] [address] [facility] [id number] [place] [address] Nov, 2013 [facility] [place] [facility] [address] [facility] [id number] [place] [address] Nov, [facility] [place] [facility] [address] [id number] [place] [address] Nov, 2013 [facility] [place] [facility] [address] [id number] [place] [address] Nov, 2013 [facility] [place] [facility] [address] [id number] [place] [address] Nov, 2013 [facility] [place] [facility] [address] [id number] [place] [address] Nov, [facility] [place] [facility] [address] [id number] [place] [address] Nov, 2013 [facility] [place] [facility] [address] [id number] [place] [address] Nov, 2013 [facility] [place] [facility] [address] [id number] [place] [address] Nov, 2013 [facility] [place] [facility] [address] [id number] [place] [address] 30 Oct, 2013 [facility] [place] [facility] [address] [id number] [place] [address] 30 Sep, 2013 [facility] [place] [facility] [address] [id number] [place] [address] Oct, 2013 [facility] [place] [facility] [address] [id number] [place] [address] Oct, 2013 [facility] [place] [facility] [address] [id number] [place] [address] 08 Oct, 2013 [facility] [place] [facility] [address] [id number] [place] [address] Oct, 2013 [facility] [place] [facility] [address] [facility] [id number] [place] [address] Oct, 2013 [facility] [place] [facility] [address] [id number] [place] [address] Oct, 2013 [facility] [place] [facility] [address] [facility] [id number] [place] [address] Oct, 2013 [facility] [place] [facility] [address] [id number] [place] [address] Oct, 2013 [facility] [place] [facility] [address] [id number] [place] [address] Oct, 2013 [facility] [place] [facility] [address] [id number] [place] [address] Oct, 2013 [facility] [place] [facility] [address] [id number] [place] [address] Sep, 2013 [facility] [place] [facility] [address] [id number] [place] [address] Sep, [facility] [place] [facility] [address] [id number] [place] [address] Sep, [facility] [place] [facility] [address] [id number] [place] [address] Sep, 2013 [facility] [place] [facility] [address] [id number] [place] [address] Sep, [facility] [place] [facility] [address] [id number] [place] [address] Sep, [facility] [place] [facility] [address] [id number] [place] [address] Sep, [facility] [place] [facility] [address] [id number] [place] [address] Sep, [facility] [place] [facility] [address] [id number] [place] [address] Aug, [facility] [place] [facility] [address] [id number] [place] [address] Aug, [facility] [place] [facility] [address] [id number] [place] [address] Aug, [facility] [place] [facility] [address] [id number] [place] [address] Aug, [facility] [place] [facility] [address] [id number] [place] [address] Jul, [facility] [place] [facility] [address] [id number] [place] [address] Jul, [facility] [place] [facility] [address] [id number] [place] [address] Jul, [facility] [place] [facility] [address] [id number] [place] [address] Jul, [facility] [place] [facility] [address] [id number] [place] [address] Jul, [facility] [place] [facility] [address] [id number] [place] [address] Jul, [facility] [place] [facility] [address] [id number] [place] [address] June, [facility] [place] [facility] [address] [id number] [place] [address] June, [facility] [place] [facility] [address] [id number] [place] [address] June, [facility] [place] [facility] [address] [id number] [place] [address] June, [facility] [place] [facility] [address] [id number] [place] [address] June, [facility] [place] [facility] [address] [id number] [place] [address] June, [facility] [place] [facility] [address] [id number] [place] [address] May, [facility] [place] [facility] [address] [id number] [place] [address] May, [facility] [place] [facility] [address] [facility] [id number] [facility] [place] [address] May, [facility] [place] [facility] [address] [facility] [id number] [place] [address] May, [facility] [place] [facility] [address] [id number] [facility] [place] [address] May, [facility] [place] [facility] [address] [facility] [id number] [place] [address] May, [facility] [place] [facility] [address] [facility] [id number] [facility] [place] [address] May, [facility] [place] [facility] [address] [id number] [place] [address] May, [facility] [place] [facility] [address] [id number] [facility] [place] [address] May, [facility] [place] [facility] [address] [id number] [facility] [place] [address] May, [facility] [place] [facility] [address] [id number] [place] [address] Apr, [facility] [place] [facility] [address] [id number] [place] [address] Apr, [facility] [place] [facility] [address] [id number] [place] [address] Apr, [facility] [place] [facility] [address] [id number] [place] [address] Apr, [facility] [place] [facility] [address] [id number] [facility] [place] [address] Apr, [facility] [place] [facility] [address] [id number] [place] [address] Apr, [facility] [place] [facility] [address] [id number] [place] [address] Apr, [facility] [place] [facility] [address] [id number] [place] [address] Apr, [facility] [place] [facility] [address] [id number] [place] [address] Apr, [facility] [place] [facility] [address] [id number] [place] [address] Apr, [facility] [place] [facility] [address] [id number] [place] [address] Apr, [facility] [place] [facility] [address] [id number] [place] [address] Apr, [facility] [place] [facility] [address] [id number] [place] [address] Mar, [facility] [place] [facility] [address] [id number] [place] [address] Mar, [facility] [place] [facility] [address] [id number] [place] [address] Mar, [facility] [place] [facility] [address] [id number] [place] [address] Mar, [facility] [place] [facility] [address] [id number] [place] [address] Feb, [facility] [place] [facility] [address] [id number] [place] [address] Feb, [facility] [place] [facility] [address] [id number] [place] [address] Feb, [facility] [place] [facility] [address] [id number] [place] [address] Feb, [facility] [place] [facility] [address] [id number] [place] [address] Feb, [facility] [place] [facility] [address] [id number] [place] [address] Feb, [facility] [place] [facility] [address] [id number] [place] [address] Feb, [facility] [place] [facility] [address] [id number] [place] [address] Feb, [facility] [place] [facility] [address] [id number] [place] [address] Feb, [facility] [place] [facility] [address] [id number] [place] [address] Feb, [facility] [place] [facility] [address] [id number] [place] [address] Jan, [facility] [place] [facility] [address] [id number] [place] [address] Jan, [facility] [place] [facility] [address] [id number] [place] [address] Jan, [facility] [place] [facility] [address] [id number] [place] [address] Jan, [facility] [place] [facility] [address] [id number] [place] [address] Jan, [facility] [place] [facility] [address] [id number] [place] [address] Jan, [facility] [place] [facility] [address] [id number] [place] [address] Jan, [facility] [place] [facility] [address] [id number] [place] [address] Jan, [facility] [place] [facility] [address] [id number] [place] [address] Jan, [facility] [place] [facility] [address] [id number] [place] [address] Dec, [facility] [place] [facility] [address] [id number] [place] [address] Dec, [facility] [place] [facility] [address] [id number] [place] [address] Dec, [facility] [place] [facility] [address] [id number] [place] [address] Dec, [facility] [place] [facility] [address] [id number] [place] [address] Nov, [facility] [place] [facility] [address] [id number] [place] [address] Nov, [facility] [place] [facility] [address] [id number] [place] [address] 10 Nov, 2012 [facility] [place] [facility] [address] [facility] [id number] [facility] [place] [address] Nov, [facility] [place] [facility] [address] [facility] [id number] [facility] [place] [address] Nov, [facility] [place] [facility] [address] [id number] [facility] [place] [address] Nov, [facility] [place] [facility] [address] [facility] [id number] [facility] [place] [address] Oct, [facility] [place] [facility] [address] [facility] [id number] [facility] [place] [address] Oct, [facility] [place] [facility] [address] [id number] [place] [address] Sep, [facility] [place] [facility] [address] [id number] [place] [address] Sep, [facility] [place] [facility] [address] [id number] [place] [address] Sep, [facility] [place] [facility] [address] [facility] [id number] [facility] [place] [address] Sep, [facility] [place] [facility] [address] [id number] [place] [address] Aug, [facility] [place] [facility] [address] [id number] [place] [address] Aug, [facility] [place] [facility] [address] [id number] [place] [address] Aug, [facility] [place] [facility] [address] [facility] [id number] [facility] [place] [address] Jul, [facility] [place] [facility] [address] [id number] [place] [address] Jul, [facility] [place] [facility] [address] [id number] [facility] [place] [address] Jul, [facility] [place] [facility] [address] [id number] [place] [address] Jul, [facility] [place] [facility] [address] [id number] [place] [address] June, [facility] [place] [facility] [address] [id number] [place] [address] June, [facility] [place] [facility] [address] [id number] [place] [address] May, [facility] [place] [facility] [address] [id number] [place] [address] May, [facility] [place] [facility] [address] [id number] [place] [address] Apr, [facility] [place] [facility] [address] [id number] [place] [address] Apr, [facility] [place] [facility] [address] [id number] [place] [address] Mar, [facility] [place] [facility] [address] [id number] [place] [address] Mar, [facility] [place] [facility] [address] [id number] [place] [address] Feb, [facility] [place] [facility] [address] [id number] [place] [address] 24 Feb, 2012 [facility] [place] [facility] [address] [id number] [place] [address] Feb, [facility] [place] [facility] [address] [id number] [place] [address] Feb, [facility] [place] [facility] [address] [id number] [place] [address] 17 Feb, 2012 [facility] [place] [facility] [address] [id number] [place] [address] 16 Feb, 2012 [facility] [place] [facility] [address] [id number] [place] [address] 16 Feb, 2012 [facility] [place] [facility] [address] [id number] [place] [address] 14 Feb, 2012 [facility] [place] [facility] [address] [id number] [place] [address] Feb, [facility] [place] [facility] [address] [id number] [place] [address] Jan, [facility] [place] [facility] [address] [id number] [place] [address] Jan, [facility] [place] [facility] [address] [id number] [place] [address] Jan, [facility] [place] [facility] [address] [id number] [place] [address] Jan, [facility] [place] [facility] [address] [id number] [place] [address] Dec, [facility] [place] [facility] [address] [id number] [place] [address] Dec, [facility] [place] [facility] [address] [id number] [place] [address] Dec, [facility] [place] [facility] [address] [id number] [place] [address] Dec, [facility] [place] [facility] [address] [id number] [place] [address] Oct, [facility] [place] [facility] [address] [id number] [place] [address] Sep, [facility] [place] [facility] [address] [id number] [place] [address] Sep, [facility] [place] [facility] [address] [id number] [place] [address] Aug, [facility] [place] [facility] [address] [id number] [place] [address] Jul, [facility] [place] [facility] [address] [id number] [place] [address] June, [facility] [place] [facility] [address] [id number] [place] [address] June, [facility] [place] [facility] [address] [id number] [place] [address] May, [facility] [place] [facility] [address] [id number] [place] [address] Apr, [facility] [id number] [place] [address] Mar, [facility] [id number] [place] [address] Mar, [facility] [address] [address] Feb, [facility] [address] [address] Dec, [facility] [id number] [place] [address] Nov, [facility] [id number] [place] [address] Sep, [facility] [id number] [place] [address] Aug, IMMUNIZATIONS No Known Immunizations SOCIAL HISTORY [...]
--- OUTSIDE RECORDS SUMMARY | 2019-07-02 15:46 | XMS REPORT ---
Author Author Madina LOZOYA Organization [facility] Address [address] [place] [address] Care Team Providers Care Profiling Machine Set Up Operator Name Role Phone HUMA LOZOYA Unavailable PROBLEMS Type Condition ICD9-CM Code CYI55-XK Code Onset Dates Condition S tatus SNOMED Code Problem Other and unspecified hyperlipidemia 272.4 Active 03699102 Problem Asthma J45.909 Active 024900468 Problem Alcoholism F10.20 Active 6336870 Problem Arthritis M19.90 Active 9522865 Problem Other chronic pain G89.29 Active 8 6502551 Problem Bipolar disorder F31.9 Active 137 22254 Problem Closed fracture of shaft of right fibula, unspecified fracture morphology, initial encounter S82.401A Active 21406059 Problem Major depressive disorder, single episode F32.9 Active 05959899 Problem Arthropathy, unspecified M12.9 Activ e [id number] ALLERGIES No Information ENCOUNTERS Encounter Location Date Diagnosis [place] [address] [address] Dec, Arthritis M19.90 ; Alcoholism F10.20 ; E ncounter for immunization Z23 and Breast cancer screening by mammogram Z12.[address] [address] Sep, [place] [address] [address] Sep, Arthropathy of right ankle M19.[address] [address] Aug, Pain in right ankle and joints of right foot M25.571 and Other chronic pain G89.29 [place] [address] [address] Jul, [place] [address] [address] Apr, [place] [address] [address] Apr, Injury of right ankle, initial encounter S99.911A and Encounter for immunization Z23 [facility] [address] [address] Dec, [place] [address] [address] Nov, Pain in right ankle and joints of right foot M25.571 ; Other chronic pain G89.29 and Post-traumatic arthritis of right ankle M19.171 [place] [address] [address] Oct, Arthritis M19.90 [place] [address] [address] Aug, Arthritis M19.90 [place] [address] [address] Aug, [place] [address] [address] Jul, [place] [address] [address] June, Arthropathy, unspecified M12.9 [place] [address] [address] May, Asthma J45.909 and Major depressive diso rder, single episode F32.9 [place] [address] [address] 16 Mar, 2016 Closed fracture of shaft of right fibula , unspecified fracture morphology, initial encounter S82.401A [place] [address] [address] Feb, [place] [address] [address] Feb, [place] [address] [place] [id number] [place] [address] Nov, [facility] [address] [address] Nov, Bipolar disorder F31.9 ; Encounter for i mmunization Z23 and Asthma J45.909 [facility] [address] [address] Aug, [facility] [address] [address] May, [facility] [address] [address] Apr, [facility] [address] [address] Apr, [facility] [address] [address] Apr, URI (upper respiratory infection) J06.9 and Bipolar disorder F31.9 [facility] [address] [address] Feb, [facility] [address] [address] Feb, Asthma J45.909 and Alcoholism F10.20 [facility] [address] [address] Jan, [facility] [address] [address] Jan, [facility] [address] [address] Jan, [facility] [address] [address] Nov, Alcoholism F10.20 and Anxiety F41.9 [facility] [address] [address] Jul, Anxiety 300.00 and Arthropathy 716.90 [facility] [address] [place] [id number] [place] [address] Jul, [facility] [address] [id number] [place] [address] Jul, Anxiety state 300.00 [facility] [place] [facility] [address] [id number] [place] [address] May, [facility] [place] [facility] [address] [place] [id number] [place] [address] May, [facility] [place] [facility] [address] [place] [id number] [place] [address] Apr, [facility] [address] [place] [id number] [place] [address] Apr, [facility] [place] [facility] [address] [place] [id number] [place] [address] Mar, [facility] [place] [facility] [address] [place] [address] [id number] [place] [address] Mar, [facility] [place] [facility] [address] [place] [address] [id number] [place] [address] Feb, [facility] [place] [facility] [address] [place] [id number] [place] [address] Feb, [facility] [place] [facility] [address] [place] [id number] [place] [address] Feb, [facility] [place] [facility] [address] [place] [id number] [place] [address] Feb, [facility] [place] [facility] [address] [place] [id number] [place] [address] Jan, [facility] [place] [facility] [address] [place] [id number] [place] [address] Jan, [facility] [place] [facility] [address] [place] [id number] [place] [address] Jan, [facility] [place] [facility] [address] [place] [id number] [place] [address] Jan, [facility] [place] [facility] [address] [place] [id number] [place] [address] Nov, 2013 [facility] [place] [facility] [address] [facility] [id number] [place] [address] Nov, [facility] [place] [facility] [address] [facility] [id number] [place] [address] Nov, 2013 [facility] [place] [facility] [address] [id number] [place] [address] Nov, [facility] [place] [facility] [address] [facility] [id number] [place] [address] Nov, [facility] [place] [facility] [address] [facility] [id number] [place] [address] Nov, [facility] [place] [facility] [address] [id number] [place] [address] Nov, 2013 [facility] [place] [facility] [address] [id number] [place] [address] Nov, 2013 [facility] [place] [facility] [address] [id number] [place] [address] Nov, 2013 [facility] [place] [facility] [address] [facility] [id number] [place] [address] Nov, 2013 [facility] [place] [facility] [address] [id number] [place] [address] Nov, 2013 [facility] [place] [facility] [address] [id number] [place] [address] Nov, 2013 [facility] [place] [facility] [address] [id number] [place] [address] Nov, 2013 [facility] [place] [facility] [address] [facility] [id number] [place] [address] 30 Oct, 2013 [facility] [place] [facility] [address] [facility] [id number] [place] [address] 30 Sep, 2013 [facility] [place] [facility] [address] [facility] [id number] [place] [address] Oct, 2013 [facility] [place] [facility] [address] [id number] [place] [address] Oct, 2013 [facility] [place] [facility] [address] [id number] [place] [address] 08 Oct, 2013 [facility] [place] [facility] [address] [id number] [place] [address] Oct, 2013 [facility] [place] [facility] [address] [id number] [place] [address] Oct, 2013 [facility] [place] [facility] [address] [id number] [place] [address] Oct, 2013 [facility] [place] [facility] [address] [id number] [place] [address] Oct, 2013 [facility] [place] [facility] [address] [id number] [place] [address] Oct, 2013 [facility] [place] [facility] [address] [id number] [place] [address] Oct, 2013 [facility] [place] [facility] [address] [id number] [place] [address] Oct, 2013 [facility] [place] [facility] [address] [id number] [place] [address] Sep, [facility] [place] [facility] [address] [id number] [place] [address] Sep, [facility] [place] [facility] [address] [id number] [place] [address] Sep, [facility] [place] [facility] [address] [id number] [place] [address] Sep, [facility] [place] [facility] [address] [id number] [place] [address] Sep, [facility] [place] [facility] [address] [id number] [place] [address] Sep, [facility] [place] [facility] [address] [id number] [place] [address] Sep, [facility] [place] [facility] [address] [id number] [place] [address] Sep, [facility] [place] [facility] [address] [id number] [place] [address] Aug, [facility] [place] [facility] [address] [id number] [place] [address] Aug, [facility] [place] [facility] [address] [id number] [place] [address] Aug, [facility] [place] [facility] [address] [id number] [place] [address] Aug, [facility] [place] [facility] [address] [id number] [place] [address] Jul, [facility] [place] [facility] [address] [id number] [place] [address] Jul, [facility] [place] [facility] [address] [id number] [place] [address] Jul, [facility] [place] [facility] [address] [id number] [place] [address] Jul, [facility] [place] [facility] [address] [id number] [place] [address] Jul, [facility] [place] [facility] [address] [id number] [place] [address] Jul, [facility] [place] [facility] [address] [id number] [place] [address] June, [facility] [place] [facility] [address] [id number] [place] [address] June, [facility] [place] [facility] [address] [id number] [place] [address] June, [facility] [place] [facility] [address] [id number] [place] [address] June, [facility] [place] [facility] [address] [id number] [place] [address] June, [facility] [place] [facility] [address] [id number] [place] [address] June, [facility] [place] [facility] [address] [id number] [place] [address] May, [facility] [place] [facility] [address] [id number] [place] [address] May, [facility] [place] [facility] [address] [facility] [id number] [place] [address] May, [facility] [place] [facility] [address] [facility] [id number] [place] [address] May, [facility] [place] [facility] [address] [facility] [id number] [place] [address] May, [facility] [place] [facility] [address] [facility] [id number] [place] [address] May, [facility] [place] [facility] [address] [facility] [id number] [place] [address] May, [facility] [place] [facility] [address] [facility] [id number] [place] [address] May, [facility] [place] [facility] [address] [id number] [place] [address] May, [facility] [place] [facility] [address] [id number] [place] [address] May, [facility] [place] [facility] [address] [facility] [id number] [place] [address] Apr, [facility] [place] [facility] [address] [id number] [place] [address] Apr, [facility] [place] [facility] [address] [id number] [place] [address] Apr, [facility] [place] [facility] [address] [id number] [place] [address] 10 Apr, 2013 [facility] [place] [facility] [address] [facility] [id number] [place] [address] 10 Apr, 2013 [facility] [place] [facility] [address] [facility] [id number] [place] [address] Apr, [facility] [place] [facility] [address] [facility] [id number] [place] [address] Apr, [facility] [place] [facility] [address] [id number] [place] [address] Apr, [facility] [place] [facility] [address] [id number] [place] [address] Apr, [facility] [place] [facility] [address] [facility] [id number] [place] [address] Apr, [facility] [place] [facility] [address] [id number] [place] [address] Apr, [facility] [place] [facility] [address] [id number] [place] [address] Apr, [facility] [place] [facility] [address] [id number] [place] [address] Mar, [facility] [place] [facility] [address] [id number] [place] [address] Mar, [facility] [place] [facility] [address] [id number] [place] [address] Mar, [facility] [place] [facility] [address] [id number] [place] [address] Mar, [facility] [place] [facility] [address] [id number] [place] [address] Feb, [facility] [place] [facility] [address] [id number] [place] [address] Feb, [facility] [place] [facility] [address] [id number] [place] [address] Feb, [facility] [place] [facility] [address] [id number] [place] [address] Feb, [facility] [place] [facility] [address] [id number] [place] [address] Feb, [facility] [place] [facility] [address] [id number] [place] [address] Feb, [facility] [place] [facility] [address] [id number] [place] [address] Feb, [facility] [place] [facility] [address] [id number] [place] [address] Feb, [facility] [place] [facility] [address] [id number] [place] [address] Feb, [facility] [place] [facility] [address] [id number] [place] [address] Feb, [facility] [place] [facility] [address] [id number] [place] [address] Jan, [facility] [place] [facility] [address] [id number] [place] [address] Jan, [facility] [place] [facility] [address] [id number] [place] [address] Jan, [facility] [place] [facility] [address] [id number] [place] [address] Jan, [facility] [place] [facility] [address] [id number] [place] [address] Jan, [facility] [place] [facility] [address] [id number] [place] [address] Jan, [facility] [place] [facility] [address] [id number] [place] [address] Jan, [facility] [place] [facility] [address] [id number] [place] [address] Jan, [facility] [place] [facility] [address] [id number] [place] [address] Jan, [facility] [place] [facility] [address] [id number] [place] [address] Dec, [facility] [place] [facility] [address] [id number] [place] [address] Dec, [facility] [place] [facility] [address] [id number] [place] [address] Dec, [facility] [place] [facility] [address] [id number] [place] [address] Dec, [facility] [place] [facility] [address] [id number] [place] [address] Nov, [facility] [place] [facility] [address] [id number] [place] [address] Nov, [facility] [place] [facility] [address] [id number] [place] [address] Nov, [facility] [place] [facility] [address] [facility] [id number] [place] [address] Nov, [facility] [place] [facility] [address] [facility] [id number] [place] [address] Nov, [facility] [place] [facility] [address] [id number] [place] [address] Nov, [facility] [place] [facility] [address] [facility] [id number] [place] [address] Oct, [facility] [place] [facility] [address] [facility] [id number] [place] [address] Oct, [facility] [place] [facility] [address] [id number] [place] [address] Sep, [facility] [place] [facility] [address] [id number] [place] [address] Sep, [facility] [place] [facility] [address] [id number] [place] [address] Sep, [facility] [place] [facility] [address] [id number] [place] [address] Sep, [facility] [place] [facility] [address] [id number] [place] [address] Aug, [facility] [place] [facility] [address] [id number] [place] [address] Aug, [facility] [place] [facility] [address] [id number] [place] [address] Aug, [facility] [place] [facility] [address] [facility] [id number] [place] [address] Jul, [facility] [place] [facility] [address] [id number] [place] [address] Jul, [facility] [place] [facility] [address] [id number] [place] [address] Jul, [facility] [place] [facility] [address] [id number] [place] [address] Jul, [facility] [place] [facility] [address] [id number] [place] [address] June, [facility] [place] [facility] [address] [facility] [id number] [place] [address] June, [facility] [place] [facility] [address] [id number] [place] [address] May, [facility] [place] [facility] [address] [id number] [place] [address] May, [facility] [place] [facility] [address] [id number] [place] [address] Apr, [facility] [place] [facility] [address] [id number] [place] [address] Apr, [facility] [place] [facility] [address] [id number] [place] [address] Mar, [facility] [place] [facility] [address] [id number] [place] [address] Mar, [facility] [place] [facility] [address] [id number] [place] [address] Feb, [facility] [place] [facility] [address] [id number] [place] [address] 24 Feb, 2012 [facility] [place] [facility] [address] [id number] [place] [address] Feb, [facility] [place] [facility] [address] [id number] [place] [address] Feb, [facility] [place] [facility] [address] [id number] [place] [address] Feb, [facility] [place] [facility] [address] [id number] [place] [address] 16 Feb, 2012 [facility] [place] [facility] [address] [id number] [place] [address] 16 Feb, 2012 [facility] [place] [facility] [address] [id number] [place] [address] 14 Feb, 2012 [facility] [place] [facility] [address] [id number] [place] [address] Feb, [facility] [address] [id number] [place] [address] Jan, [facility] [place] [facility] [address] [id number] [place] [address] Jan, [facility] [place] [facility] [address] [id number] [place] [address] Jan, [facility] [place] [facility] [address] [id number] [place] [address] Jan, [facility] [place] [facility] [address] [id number] [place] [address] Dec, [facility] [place] [facility] [address] [id number] [place] [address] Dec, [facility] [address] [id number] [place] [address] Dec, [facility] [id number] [place] [address] Dec, [facility] [address] [id number] [place] [address] Oct, [facility] [id number] [place] [address] Sep, [facility] [address] [id number] [place] [address] Sep, [facility] [address] [id number] [place] [address] Aug, [facility] [address] [id number] [place] [address] Jul, [facility] [address] [id number] [place] [address] June, [facility] [address] [id number] [place] [address] June, [facility] [address] [id number] [place] [address] May, [facility] [address] [id number] [place] [address] Apr, [facility] [address] [id number] [place] [address] Mar, [facility] [address] [id number] [place] [address] Mar, [facility] [address] [id number] [place] [address] Feb, [facility] [address] [id number] [place] [address] Dec, [facility] [address] [id number] [place] [address] Nov, [facility] [address] [id number] [place] [address] Sep, [facility] [address] [id number] [place] [address] Aug, IMMUNIZATIONS No Known Immunizations SOCIAL HISTORY Never Assessed REASON FOR VISIT PLAN OF CARE VITAL SIGNS Height 66 in 2013-07-25 Weight 121.1 lbs 2013-07-25 Temperature 96.9 degrees Fahrenheit 2013-07-25 Heart Rate 80 bpm 2013-07-25 Respiratory Rate 18 2013-07-25 Blood pressure systolic 120 mmHg 2013-07-25 Blood pressure diastolic 64 mmHg 2013-07-25 MEDICATIONS No Known Medications RESULTS No Results PROCEDURES No Known procedures INSTRUCTIONS MEDICATIONS ADMINISTERED No Known Medications MEDICAL (GENERAL) HISTORY Type Description Date Medical History asthma Medical History headache Medical History chronic pain-low back with spasms Medical History anxiety Medical History depression Hospitalization History childbirth x 4
--- OUTSIDE RECORDS SUMMARY | 2019-07-02 15:46 | XMS REPORT ---
Author Author Madina BARKER Organization [facility] Address [address] [place] [address] Care Team Providers Care Lacquer Sizer Name Role Phone TIFFANY BARKER Unavailable PROBLEMS Type Condition ICD9-CM Code QCU83-SZ Code Onset Dates Condition S tatus SNOMED Code Problem Other and unspecified hyperlipidemia 272.4 Active 14015067 Problem Asthma J45.909 Active 591126064 Problem Alcoholism F10.20 Active 5437715 Problem Arthritis M19.90 Active 5353814 Problem Other chronic pain G89.29 Active 8 9220084 Problem Bipolar disorder F31.9 Active 137 90827 Problem Closed fracture of shaft of right fibula, unspecified fracture morphology, initial encounter S82.401A Active 57115417 Problem Major depressive disorder, single episode F32.9 Active 36342169 Problem Arthropathy, unspecified M12.9 Activ e [id number] ALLERGIES No Information ENCOUNTERS Encounter Location Date Diagnosis [place] [address] [address] Dec, Arthritis M19.90 ; Alcoholism F10.20 ; E ncounter for immunization Z23 and Breast cancer screening by mammogram Z12.31 [place] [address] [address] Sep, [place] [address] [address] Sep, Arthropathy of right ankle M19.071 [place] [address] [address] Aug, Pain in right ankle and joints of right foot M25.571 and Other chronic pain G89.29 [place] [address] [address] Jul, [place] [address] [address] Apr, [place] [address] [address] Apr, Injury of right ankle, initial encounter S99.911A and Encounter for immunization Z23 [place] [address] [address] Dec, [place] [address] [address] Nov, Pain in right ankle and joints of right foot M25.571 ; Other chronic pain G89.29 and Post-traumatic arthritis of right ankle M19.171 [place] [address] [address] Oct, Arthritis M19.90 [place] [address] [address] Aug, Arthritis M19.90 [place] [address] [address] Aug, [place] [address] [address] Jul, [place] [address] [address] June, Arthropathy, unspecified M12.9 [place] [address] [address] May, Asthma J45.909 and Major depressive diso rder, single episode F32.9 [place] [address] [address] Mar, Closed fracture of shaft of right fibula , unspecified fracture morphology, initial encounter S82.401A [place] [address] [address] Feb, [place] [address] [address] Feb, [facility] [address] [address] Nov, [facility] [address] [address] Nov, Bipolar disorder F31.9 ; Encounter for i mmunization Z23 and Asthma J45.909 [facility] [address] [address] Aug, [facility] [address] [address] May, [facility] [address] [address] Apr, [facility] [address] [address] Apr, [facility] [address] [address] Apr, URI (upper respiratory infection) J06.9 and Bipolar disorder F31.9 [facility] [address] [address] Feb, [facility] [address] [address] Feb, Asthma J45.909 and Alcoholism F10.20 [facility] [address] [address] Jan, [facility] [address] [address] Jan, [facility] [address] [address] Jan, [facility] [address] [address] Nov, Alcoholism F10.20 and Anxiety F41.9 [facility] [address] [address] Jul, Anxiety 300.00 and Arthropathy 716.90 [facility] [address] [place] [id number] [place] [address] Jul, [facility] [id number] [place] [address] Jul, Anxiety state 300.00 [facility] [address] [id number] [place] [address] May, [facility] [address] [place] [address] [id number] [place] [address] May, [facility] [place] [facility] [address] [place] [id number] [place] [address] Apr, [facility] [id number] [place] [address] Apr, [facility] [place] [facility] [id number] [place] [address] Mar, [facility] [id number] [place] [address] Mar, [facility] [id number] [place] [address] Feb, [facility] [id number] [place] [address] Feb, [facility] [place] [facility] [id number] [place] [address] Feb, [facility] [id number] [place] [address] Feb, [facility] [place] [facility] [id number] [place] [address] Jan, [facility] [place] [facility] [id number] [place] [address] Jan, [facility] [place] [facility] [address] [place] [id number] [place] [address] Jan, [facility] [place] [facility] [address] [id number] [place] [address] Jan, [facility] [place] [facility] [address] [place] [address] [id number] [place] [address] Nov, 2013 [facility] [place] [facility] [address] [facility] [id number] [place] [address] Nov, [facility] [place] [facility] [address] [facility] [id number] [place] [address] Nov, 2013 [facility] [place] [facility] [address] [id number] [place] [address] Nov, [facility] [place] [facility] [address] [facility] [id number] [place] [address] Nov, 2013 [facility] [place] [facility] [address] [facility] [id number] [place] [address] Nov, [facility] [place] [facility] [address] [id number] [place] [address] Nov, 2013 [facility] [place] [facility] [address] [id number] [place] [address] Nov, 2013 [facility] [place] [facility] [address] [id number] [place] [address] Nov, 2013 [facility] [place] [facility] [address] [id number] [place] [address] Nov, [facility] [place] [facility] [address] [id number] [place] [address] Nov, 2013 [facility] [place] [facility] [address] [id number] [place] [address] Nov, 2013 [facility] [place] [facility] [address] [id number] [place] [address] Nov, 2013 [facility] [place] [facility] [address] [id number] [place] [address] 30 Oct, 2013 [facility] [place] [facility] [address] [id number] [place] [address] 30 Sep, 2013 [facility] [place] [facility] [address] [id number] [place] [address] Oct, 2013 [facility] [place] [facility] [address] [id number] [place] [address] Oct, 2013 [facility] [place] [facility] [address] [id number] [place] [address] 08 Oct, 2013 [facility] [place] [facility] [address] [id number] [place] [address] Oct, 2013 [facility] [place] [facility] [address] [facility] [id number] [place] [address] Oct, 2013 [facility] [place] [facility] [address] [id number] [place] [address] Oct, 2013 [facility] [place] [facility] [address] [facility] [id number] [place] [address] Oct, 2013 [facility] [place] [facility] [address] [id number] [place] [address] Oct, 2013 [facility] [place] [facility] [address] [id number] [place] [address] Oct, 2013 [facility] [place] [facility] [address] [id number] [place] [address] Oct, 2013 [facility] [place] [facility] [address] [id number] [place] [address] Sep, 2013 [facility] [place] [facility] [address] [id number] [place] [address] Sep, [facility] [place] [facility] [address] [id number] [place] [address] Sep, [facility] [place] [facility] [address] [id number] [place] [address] Sep, 2013 [facility] [place] [facility] [address] [id number] [place] [address] Sep, [facility] [place] [facility] [address] [id number] [place] [address] Sep, [facility] [place] [facility] [address] [id number] [place] [address] Sep, [facility] [place] [facility] [address] [id number] [place] [address] Sep, [facility] [place] [facility] [address] [id number] [place] [address] Aug, [facility] [place] [facility] [address] [id number] [place] [address] Aug, [facility] [place] [facility] [address] [id number] [place] [address] Aug, [facility] [place] [facility] [address] [id number] [place] [address] Aug, [facility] [place] [facility] [address] [id number] [place] [address] Jul, [facility] [place] [facility] [address] [id number] [place] [address] Jul, [facility] [place] [facility] [address] [id number] [place] [address] Jul, [facility] [place] [facility] [address] [id number] [place] [address] Jul, [facility] [place] [facility] [address] [id number] [place] [address] Jul, [facility] [place] [facility] [address] [id number] [place] [address] Jul, [facility] [place] [facility] [address] [id number] [place] [address] June, [facility] [place] [facility] [address] [id number] [place] [address] June, [facility] [place] [facility] [address] [id number] [place] [address] June, [facility] [place] [facility] [address] [id number] [place] [address] June, [facility] [place] [facility] [address] [id number] [place] [address] June, [facility] [place] [facility] [address] [id number] [place] [address] June, [facility] [place] [facility] [address] [id number] [place] [address] May, [facility] [place] [facility] [address] [id number] [place] [address] May, [facility] [place] [facility] [address] [facility] [id number] [facility] [place] [address] May, [facility] [place] [facility] [address] [facility] [id number] [place] [address] May, [facility] [place] [facility] [address] [id number] [facility] [place] [address] May, [facility] [place] [facility] [address] [facility] [id number] [place] [address] May, [facility] [place] [facility] [address] [facility] [id number] [facility] [place] [address] May, [facility] [place] [facility] [address] [id number] [place] [address] May, [facility] [place] [facility] [address] [id number] [facility] [place] [address] May, [facility] [place] [facility] [address] [id number] [facility] [place] [address] May, [facility] [place] [facility] [address] [id number] [place] [address] Apr, [facility] [place] [facility] [address] [id number] [place] [address] Apr, [facility] [place] [facility] [address] [id number] [place] [address] Apr, [facility] [place] [facility] [address] [id number] [place] [address] Apr, [facility] [place] [facility] [address] [id number] [facility] [place] [address] Apr, [facility] [place] [facility] [address] [id number] [place] [address] Apr, [facility] [place] [facility] [address] [id number] [place] [address] Apr, [facility] [place] [facility] [address] [id number] [place] [address] Apr, [facility] [place] [facility] [address] [id number] [place] [address] Apr, [facility] [place] [facility] [address] [id number] [place] [address] Apr, [facility] [place] [facility] [address] [id number] [place] [address] Apr, [facility] [place] [facility] [address] [id number] [place] [address] Apr, [facility] [place] [facility] [address] [id number] [place] [address] Mar, [facility] [place] [facility] [address] [id number] [place] [address] Mar, [facility] [place] [facility] [address] [id number] [place] [address] Mar, [facility] [place] [facility] [address] [id number] [place] [address] Mar, [facility] [place] [facility] [address] [id number] [place] [address] Feb, [facility] [place] [facility] [address] [id number] [place] [address] Feb, [facility] [place] [facility] [address] [id number] [place] [address] Feb, [facility] [place] [facility] [address] [id number] [place] [address] Feb, [facility] [place] [facility] [address] [id number] [place] [address] Feb, [facility] [place] [facility] [address] [id number] [place] [address] Feb, [facility] [place] [facility] [address] [id number] [place] [address] Feb, [facility] [place] [facility] [address] [id number] [place] [address] Feb, [facility] [place] [facility] [address] [id number] [place] [address] Feb, [facility] [place] [facility] [address] [id number] [place] [address] Feb, [facility] [place] [facility] [address] [id number] [place] [address] Jan, [facility] [place] [facility] [address] [id number] [place] [address] Jan, [facility] [place] [facility] [address] [id number] [place] [address] Jan, [facility] [place] [facility] [address] [id number] [place] [address] Jan, [facility] [place] [facility] [address] [id number] [place] [address] Jan, [facility] [place] [facility] [address] [id number] [place] [address] Jan, [facility] [place] [facility] [address] [id number] [place] [address] Jan, [facility] [place] [facility] [address] [id number] [place] [address] Jan, [facility] [place] [facility] [address] [id number] [place] [address] Jan, [facility] [place] [facility] [address] [id number] [place] [address] Dec, [facility] [place] [facility] [address] [id number] [place] [address] Dec, [facility] [place] [facility] [address] [id number] [place] [address] Dec, [facility] [place] [facility] [address] [id number] [place] [address] Dec, [facility] [place] [facility] [address] [id number] [place] [address] Nov, [facility] [place] [facility] [address] [id number] [place] [address] Nov, [facility] [place] [facility] [address] [id number] [place] [address] 10 Nov, 2012 [facility] [place] [facility] [address] [facility] [id number] [facility] [place] [address] Nov, [facility] [place] [facility] [address] [facility] [id number] [facility] [place] [address] Nov, [facility] [place] [facility] [address] [id number] [facility] [place] [address] Nov, [facility] [place] [facility] [address] [facility] [id number] [facility] [place] [address] Oct, [facility] [place] [facility] [address] [facility] [id number] [facility] [place] [address] Oct, [facility] [place] [facility] [address] [id number] [place] [address] Sep, [facility] [place] [facility] [address] [id number] [place] [address] Sep, [facility] [place] [facility] [address] [id number] [place] [address] Sep, [facility] [place] [facility] [address] [facility] [id number] [facility] [place] [address] Sep, [facility] [place] [facility] [address] [id number] [place] [address] Aug, [facility] [place] [facility] [address] [id number] [place] [address] Aug, [facility] [place] [facility] [address] [id number] [place] [address] Aug, [facility] [place] [facility] [address] [facility] [id number] [facility] [place] [address] Jul, [facility] [place] [facility] [address] [id number] [place] [address] Jul, [facility] [place] [facility] [address] [id number] [facility] [place] [address] Jul, [facility] [place] [facility] [address] [id number] [place] [address] Jul, [facility] [place] [facility] [address] [id number] [place] [address] June, [facility] [place] [facility] [address] [id number] [place] [address] June, [facility] [place] [facility] [address] [id number] [place] [address] May, [facility] [place] [facility] [address] [id number] [place] [address] May, [facility] [place] [facility] [address] [id number] [place] [address] Apr, [facility] [place] [facility] [address] [id number] [place] [address] Apr, [facility] [place] [facility] [address] [id number] [place] [address] Mar, [facility] [place] [facility] [address] [id number] [place] [address] Mar, [facility] [place] [facility] [address] [id number] [place] [address] Feb, [facility] [place] [facility] [address] [id number] [place] [address] 24 Feb, 2012 [facility] [place] [facility] [address] [id number] [place] [address] Feb, [facility] [place] [facility] [address] [id number] [place] [address] Feb, [facility] [place] [facility] [address] [id number] [place] [address] 17 Feb, 2012 [facility] [place] [facility] [address] [id number] [place] [address] 16 Feb, 2012 [facility] [place] [facility] [address] [id number] [place] [address] 16 Feb, 2012 [facility] [place] [facility] [address] [id number] [place] [address] 14 Feb, 2012 [facility] [place] [facility] [address] [id number] [place] [address] Feb, [facility] [place] [facility] [address] [id number] [place] [address] Jan, [facility] [place] [facility] [address] [id number] [place] [address] Jan, [facility] [place] [facility] [address] [id number] [place] [address] Jan, [facility] [place] [facility] [address] [id number] [place] [address] Jan, [facility] [place] [facility] [address] [id number] [place] [address] Dec, [facility] [place] [facility] [address] [id number] [place] [address] Dec, [facility] [place] [facility] [address] [id number] [place] [address] Dec, [facility] [place] [facility] [address] [id number] [place] [address] Dec, [facility] [place] [facility] [address] [id number] [place] [address] Oct, [facility] [place] [facility] [address] [id number] [place] [address] Sep, [facility] [place] [facility] [address] [id number] [place] [address] Sep, [facility] [place] [facility] [address] [id number] [place] [address] Aug, [facility] [place] [facility] [address] [id number] [place] [address] Jul, [facility] [place] [facility] [address] [id number] [place] [address] June, [facility] [place] [facility] [address] [id number] [place] [address] June, [facility] [place] [facility] [address] [id number] [place] [address] May, [facility] [place] [facility] [address] [id number] [place] [address] Apr, [facility] [id number] [place] [address] Mar, [facility] [id number] [place] [address] Mar, [facility] [address] [address] Feb, [facility] [address] [address] Dec, [facility] [id number] [place] [address] Nov, [facility] [id number] [place] [address] Sep, [facility] [id number] [place] [address] Aug, IMMUNIZATIONS No Known Immunizations SOCIAL HISTORY [...]
--- OUTSIDE RECORDS SUMMARY | 2019-07-02 15:49 | XMS REPORT ---
Author Author Madina LOZOYA Organization [facility] Address [address] [place] [address] Care Team Providers Care Rn Field Case Manager Name Role Phone HUMA LOZOYA Unavailable PROBLEMS Type Condition ICD9-CM Code IPX69-UE Code Onset Dates Condition S tatus SNOMED Code Problem Asthma J45.909 Active 399850933 Problem Alcoholism F10.20 Active 9089903 Problem Arthritis M19.90 Active 7747520 Problem Other chronic pain G89.29 Active 8 6471293 Problem Bipolar disorder F31.9 Active 137 65224 Problem Closed fracture of shaft of right fibula, unspecified fracture morphology, initial encounter S82.401A Active 09002674 Problem Major depressive disorder, single episode F32.9 Active 58725361 Problem Arthropathy, unspecified M12.9 Activ e [id number] ALLERGIES No Information ENCOUNTERS Encounter Location Date Diagnosis [place] [id number] [facility] [id number] [address] [place] [phone] June, [facility] [address] [place] [id number] [place] [address] [phone] Apr, [facility] [address] [place] [id number] [place] [phone] Apr, Cough R05 and Hyperinflation of lungs R09.89 [facility] [address] [facility] [id number] [address] [place] [phone] Dec, Arthritis M19.90 ; Alcoholis m F10.20 ; Encounter for immunization Z23 and Breast cancer screening by mammogram Z12.31 [facility] [address] [facility] [id number] [address] [place] [phone] Sep, [place] [address] [facility] [id number] [address] [place] [phone] Sep, Arthropathy of right ankle M 19.071 [facility] [address] [id number] [address] [place] [phone] Aug, Pain in right ankle and join ts of right foot M25.571 and Other chronic pain G89.29 [facility] [address] [id number] [address] [place] [phone] Jul, [facility] [address] [facility] [id number] [address] [place] [phone] Apr, [facility] [address] [id number] [address] [place] [address] Apr, Injury of right ankle, initi al encounter S99.911A and Encounter for immunization Z23 [facility] [address] [facility] [id number] [address] [place] [address] Dec, [place] [address] [facility] [id number] [address] [place] [phone] Nov, Pain in right ankle and join ts of right foot M25.571 ; Other chronic pain G89.29 and Post-traumatic arthritis of right ankle M19.171 [place] [address] [facility] [id number] [address] [place] [address] Oct, Arthritis M19.90 [place] [address] [facility] [id number] [address] [place] [address] Aug, Arthritis M19.90 [place] [address] [facility] [id number] [address] [place] [phone] Aug, [place] [address] [id number] [address] [place] [phone] Jul, [place] [address] [facility] [id number] [address] [place] [phone] June, Arthropathy, unspecified M12 .9 [facility] [address] [facility] [id number] [address] [place] [address] May, Asthma J45.909 and Major dep ressive disorder, single episode F32.9 [facility] [address] [id number] [address] [place] [phone] Mar, Closed fracture of shaft of right fibula, unspecified fracture morphology, initial encounter S82.401A [facility] [address] [id number] [address] [place] [phone] Feb, [facility] [address] [facility] [id number] [address] [place] [phone] Feb, [facility] [address] [id number] [address] [place] [phone] Nov, [facility] [address] [facility] [id number] [address] [place] [phone] Nov, Bipolar disorder F31.9 ; Enc ounter for immunization Z23 and Asthma J45.909 [facility] [address] [facility] [id number] [address] [place] [phone] Aug, [facility] [address] [facility] [id number] [address] [place] [phone] May, [facility] [address] [facility] [id number] [address] [place] [phone] Apr, [facility] [address] [facility] [id number] [address] [place] [address] Apr, [facility] [address] [facility] [id number] [address] [place] [phone] Apr, URI (upper respiratory infec tion) J06.9 and Bipolar disorder F31.9 [facility] [address] [facility] [id number] [address] [place] [phone] Feb, [facility] [address] [facility] [id number] [address] [place] [address] Feb, Asthma J45.909 and Alcoholis m F10.20 [facility] [address] [facility] [id number] [address] [place] [phone] Jan, [facility] [address] [facility] [id number] [address] [place] [phone] Jan, [facility] [address] [facility] [id number] [address] [place] [address] Jan, [facility] [address] [facility] [id number] [address] [place] [phone] Nov, Alcoholism F10.20 and Anxiet y F41.9 [facility] [address] [id number] [address] [place] [address] Jul, Anxiety 300.00 and Arthropat hy 716.90 [facility] [address] [facility] [id number] [address] [place] [phone] Jul, [facility] [address] [facility] [id number] [address] [place] [phone] Jul, Anxiety state 300.00 [facility] [address] [id number] [address] [place] [phone] May, [facility] [address] [facility] [id number] [address] [place] [phone] May, [facility] [address] [facility] [id number] [address] [place] [phone] Apr, [facility] [address] [facility] [id number] [address] [place] [address] Apr, [facility] [address] [facility] [id number] [address] [place] [phone] Mar, [facility] [address] [facility] [id number] [address] [place] [phone] Mar, [facility] [address] [facility] [id number] [address] [place] [phone] Feb, [facility] [address] [facility] [id number] [address] [place] [phone] Feb, [facility] [address] [facility] [id number] [address] [place] [phone] Feb, [facility] [address] [id number] [address] [place] [address], [place] [id number] Feb, [facility] [address] [id number] [address] [place] [address], [place] [address] Jan, [facility] [address] [id number] [address] [place] [address], [place] [address] Jan, [facility] [address] [id number] [address] [place] [address], [place] [address] Jan, [facility] [address] [id number] [address] [place] [address], [place] [address] Jan, [facility] [address] [id number] [address] [place] [address], [place] [address] Nov, [facility] [address] [id number] [address] [place] [address], [place] [address] Nov, [facility] [address] [id number] [address] [place] [address], [place] [id number] Nov, [facility] [address] [id number] [address] [place] [address], [place] [address] Nov, [facility] [address] [id number] [address] [place] [address], [place] [id number] Nov, [facility] [address] [id number] [address] [place] [address], [place] [id number] Nov, [facility] [address] [id number] [address] [place] [address], [place] [address] Nov, [facility] [address] [id number] [address] [place] [address], [place] [address] Nov, [facility] [address] [id number] [address] [place] [address], [place] [address] Nov, [facility] [address] [id number] [address] [place] [address], [place] [address] Nov, [facility] [address] [id number] [address] [place] [address], [place] [id number] 13 Nov, 2013 [facility] [address] [id number] [address] [place] [address], [place] [id number] 07 Nov, 2013 [facility] [address] [id number] [address] [place] [address], [place] [id number] 07 Nov, 2013 [facility] [address] [id number] [address] [place] [address], [place] [id number] 30 Sep, 2013 [facility] [address] [id number] [address] [place] [address], [place] [id number] 30 Sep, 2013 [facility] [address] [id number] [address] [place] [address], [place] [id number] 26 Sep, 2013 [facility] [address] [id number] [address] [place] [address], [place] [id number] 26 Sep, 2013 [facility] [address] [id number] [address] [place] [address], [place] [id number] 08 Sep, 2013 [facility] [address] [id number] [address] [place] [address], [place] [id number] 08 Sep, 2013 [facility] [address] [id number] [address] [place] [address], [place] [id number] 04 Sep, 2013 [facility] [address] [id number] [address] [place] [address], [place] [id number] 04 Sep, 2013 [facility] [address] [id number] [address] [place] [address], [place] [id number] 04 Sep, 2013 [facility] [address] [id number] [address] [place] [address], [place] [id number] 04 Sep, 2013 [facility] [address] [id number] [address] [place] [address], [place] [id number] 04 Sep, 2013 [facility] [address] [id number] [address] [place] [address], [place] [address] 04 Oct, 2013 [facility] [address] [id number] [address] [place] [address], [place] [id number] Sep, [facility] [address] [id number] [facility] [place] [address] Sep, [facility] [address] [id number] [facility] [place] [address] Sep, [facility] [address] [id number] [facility] [place] [address] Sep, [facility] [address] [id number] [address] [place] [address], [place] [id number] Sep, [facility] [address] [id number] [address] [place] [address], [place] [id number] Sep, [facility] [address] [id number] [address] [place] [address], [place] [id number] Sep, [facility] [address] [id number] [address] [place] [address], [place] [id number] Sep, [facility] [address] [id number] [address] [place] [address], [place] [address] Aug, [facility] [address] [id number] [address] [place] [address], [place] [id number] Aug, [facility] [address] [id number] [address] [place] [address], [place] [id number] Aug, [facility] [address] [id number] [address] [place] [address], [place] [address] Aug, [facility] [address] [id number] [address] [place] [address], [place] [id number] Jul, [facility] [address] [id number] [address] [place] [address], [place] [id number] Jul, [facility] [address] [id number] [address] [place] [address], [place] [id number] Jul, [facility] [address] [id number] [address] [place] [address], [place] [id number] Jul, [facility] [address] [id number] [address] [place] [address], [place] [address] Jul, [facility] [address] [id number] [address] [place] [address], [place] [address] Jul, [facility] [address] [id number] [address] [place] [address], [place] [address] June, [facility] [address] [id number] [address] [place] [address], [place] [id number] June, [facility] [address] [id number] [address] [place] [address], [place] [address] June, [facility] [address] [id number] [address] [place] [address], [place] [address] June, [facility] [address] [id number] [address] [place] [address], [place] [address] June, [facility] [address] [id number] [address] [place] [address], [place] [address] June, [facility] [address] [id number] [address] [place] [address], [place] [address] May, [facility] [address] [id number] [address] [place] [address], [place] [address] May, [facility] [address] [id number] [address] [place] [address], [place] [address] May, [facility] [address] [id number] [address] [place] [address], [place] [address] May, [facility] [address] [id number] [address] [place] [address], [place] [address] May, [facility] [address] [id number] [address] [place] [address], [place] [address] May, [facility] [address] [id number] [address] [place] [address], [place] [address] May, [facility] [address] [id number] [address] [place] [address], [place] [id number] May, [facility] [address] [id number] [facility] [place] [address] May, [facility] [address] [id number] [facility] [place] [address] May, [facility] [address] [id number] [facility] [place] [address] Apr, [facility] [address] [id number] [facility] [place] [address] Apr, [facility] [address] [id number] [facility] [place] [address] 10 Apr, 2013 [facility] [address] [id number] [address] [place] [address], [place] [id number] 10 Apr, 2013 [facility] [address] [id number] [address] [place] [address], [place] [address] Apr, [facility] [address] [id number] [address] [place] [address], [place] [id number] Apr, [facility] [address] [id number] [address] [place] [address], [place] [address] Apr, [facility] [address] [id number] [address] [place] [address], [place] [address] Apr, [facility] [address] [id number] [address] [place] [address], [place] [address] Apr, [facility] [address] [id number] [address] [place] [address], [place] [address] Apr, [facility] [address] [id number] [address] [place] [address], [place] [address] Apr, [facility] [address] [id number] [address] [place] [address], [place] [address] Apr, [facility] [address] [id number] [address] [place] [address], [place] [address] Mar, [facility] [address] [id number] [address] [place] [address], [place] [id number] Mar, [facility] [address] [id number] [address] [place] [address], [place] [address] Mar, [facility] [address] [id number] [address] [place] [address], [place] [address] Mar, [facility] [address] [id number] [address] [place] [address], [place] [address] Feb, [facility] [address] [id number] [address] [place] [address], [place] [address] Feb, [facility] [address] [id number] [address] [place] [address], [place] [address] Feb, [facility] [address] [id number] [address] [place] [address], [place] [address] Feb, [facility] [address] [id number] [address] [place] [address], [place] [address] Feb, [facility] [address] [id number] [address] [place] [address], [place] [address] Feb, [facility] [address] [id number] [address] [place] [address], [place] [id number] Feb, [facility] [address] [id number] [address] [place] [address], [place] [address] Feb, [facility] [address] [id number] [address] [place] [address], [place] [address] Feb, [facility] [address] [id number] [address] [place] [address], [place] [address] Feb, [facility] [address] [id number] [address] [place] [address], [place] [address] Jan, [facility] [address] [id number] [address] [place] [address], [place] [address] Jan, [facility] [address] [id number] [address] [place] [address], [place] [address] Jan, [facility] [address] [id number] [address] [place] [address], [place] [address] Jan, [facility] [address] [id number] [address] [place] [address], [place] [address] Jan, [facility] [address] [id number] [address] [place] [address], [place] [address] Jan, [facility] [address] [id number] [address] [place] [address], [place] [address] Jan, [facility] [address] [id number] [address] [place] [address], [place] [address] Jan, [facility] [address] [id number] [address] [place] [address], [place] [address] Jan, [facility] [address] [id number] [address] [place] [address], [place] [address] Dec, [facility] [address] [id number] [address] [place] [address], [place] [address] Dec, [facility] [address] [id number] [address] [place] [address], [place] [address] Dec, [facility] [address] [id number] [address] [place] [address], [place] [id number] Dec, [facility] [address] [id number] [address] [place] [address], [place] [address] Nov, [facility] [address] [id number] [address] [place] [address], [place] [address] Nov, [facility] [address] [id number] [address] [place] [address], [place] [address] Nov, [facility] [address] [id number] [address] [place] [address], [place] [id number] Nov, [facility] [address] [id number] [address] [place] [address], [place] [id number] Nov, [facility] [address] [id number] [address] [place] [address], [place] [id number] Nov, [facility] [address] [id number] [address] [place] [address], [place] [id number] Oct, [facility] [address] [id number] [address] [place] [address], [place] [id number] Oct, [facility] [address] [id number] [address] [place] [address], [place] [id number] Sep, [facility] [address] [id number] [address] [place] [address], [place] [id number] Sep, [facility] [address] [id number] [address] [place] [address], [place] [id number] Sep, [facility] [address] [id number] [address] [place] [address], [place] [id number] Sep, [facility] [address] [id number] [address] [place] [address], [place] [id number] Aug, [facility] [address] [id number] [address] [place] [address], [place] [id number] Aug, [facility] [address] [id number] [address] [place] [address], [place] [id number] Aug, [facility] [address] [id number] [address] [place] [address], [place] [id number] Jul, [facility] [address] [id number] [address] [place] [address], [place] [id number] Jul, [facility] [address] [id number] [address] [place] [address], [place] [id number] Jul, [facility] [address] [id number] [address] [place] [address], [place] [id number] Jul, [facility] [address] [id number] [address] [place] [address], [place] [id number] June, [facility] [address] [id number] [address] [place] [address], [place] [id number] June, [facility] [address] [id number] [address] [place] [address], [place] [id number] 30 May, 2012 [facility] [address] [id number] [address] [place] [address], [place] [id number] 03 May, 2012 [facility] [address] [id number] [address] [place] [address], [place] [id number] 29 Apr, 2012 [facility] [address] [id number] [address] [place] [address], [place] [id number] Apr, [facility] [address] [id number] [address] [place] [address], [place] [id number] 18 Mar, 2012 [facility] [address] [id number] [address] [place] [address], [place] [id number] Mar, [facility] [address] [id number] [address] [place] [address], [place] [id number] 31 Feb, 2012 [facility] [address] [id number] [address] [place] [address], [place] [id number] 24 Feb, 2012 [facility] [address] [id number] [address] [place] [address], [place] [id number] 18 Feb, 2012 [facility] [address] [id number] [address] [place] [address], [place] [id number] 17 Feb, 2012 [facility] [address] [id number] [address] [place] [address], [place] [id number] 17 Feb, 2012 [facility] [address] [id number] [address] [place] [address], [place] [id number] 16 Feb, 2012 [facility] [address] [id number] [address] [place] [address], [place] [id number] 16 Feb, 2012 [facility] [address] [id number] [address] [place] [address], [place] [id number] 14 Feb, 2012 [facility] [address] [id number] [address] [place] [address], [place] [id number] 11 Feb, 2012 [facility] [address] [id number] [address] [place] [address], [place] [id number] Jan, [facility] [address] [id number] [address] [place] [address], [place] [id number] Jan, [facility] [address] [id number] [address] [place] [address], [place] [id number] Jan, [facility] [address] [id number] [address] [place] [address], [place] [id number] Jan, [facility] [address] [id number] [address] [place] [address], [place] [id number] Dec, [facility] [address] [id number] [address] [place] [address], [place] [id number] Dec, [facility] [facility] [address] [id number] [address] [place] [address], [place] [id number] Dec, [facility] [address] [id number] [address] [place] [address], [place] [id number] Dec, [facility] [address] [id number] [address] [place] [address], [place] [id number] Oct, [facility] [address] [id number] [address] [place] [address], [place] [id number] Sep, [facility] [address] [id number] [address] [place] [address], [place] [id number] Sep, [facility] [address] [id number] [address] [place] [address], [place] [id number] Aug, [facility] [address] [id number] [address] [place] [address], [place] [id number] Jul, [facility] [address] [id number] [address] [place] [address], [place] [id number] June, [facility] [address] [id number] [address] [place] [address], [place] [id number] June, [facility] [address] [id number] [address] [place] [address], [place] [id number] May, [facility] [address] [id number] [address] [place] [id number] Apr, [facility] [address] [id number] [address] [place] [id number] Mar, [facility] [address] [facility] [id number] [address] [place] [id number] Mar, [facility] [address] [facility] [id number] [address] [place] [id number] Feb, [facility] [address] [facility] [id number] [address] [place] [id number] Dec, [facility] [address] [facility] [id number] [address] [place] [id number] Nov, [facility] [address] [facility] [id number] [address] [place] [id number] Sep, [facility] [address] [facility] [id number] [address] [place] [id number] Aug, IMMUNIZATIONS No Known Immunizations SOCIAL HISTORY [...]
--- OUTSIDE RECORDS SUMMARY | 2019-07-02 15:49 | XMS REPORT ---
Author Author Madina LOZOYA Organization [facility] Address [address] [place] [address] Care Team Providers Care Transplant Rn Name Role Phone HUMA LOZOYA Unavailable PROBLEMS Type Condition ICD9-CM Code [id number] Code Onset Dates Condition S tatus SNOMED Code Problem Asthma J45.909 Active 854385213 Problem Alcoholism F10.20 Active 4747153 Problem Arthritis M19.90 Active 7182101 Problem Other chronic pain G89.29 Active 8 8409063 Problem Bipolar disorder F31.9 Active 137 05186 Problem Closed fracture of shaft of right fibula, unspecified fracture morphology, initial encounter S82.401A Active 93586843 Problem Major depressive disorder, single episode F32.9 Active 85941165 Problem Arthropathy, unspecified M12.9 Activ e [id number] ALLERGIES No Information ENCOUNTERS Encounter Location Date Diagnosis [place] [address] [facility] [id number] [address] [place] [address] June, [facility] [id number] [place] [phone] Apr, [facility] [address] [place] [id number] [place] [phone] Apr, Cough R05 and Hyperinflation of lungs R09.89 [facility] [address] [facility] [id number] [address] [place] [address] Dec, Arthritis M19.90 ; Alcoholis m F10.20 ; Encounter for immunization Z23 and Breast cancer screening by mammogram Z12.31 [facility] [address] [facility] [id number] [address] [place] [address] Sep, [place] [address] [facility] [id number] [address] [place] [address] Sep, Arthropathy of right ankle M 19.071 [facility] [address] [id number] [address] [place] [address] Aug, Pain in right ankle and join ts of right foot M25.571 and Other chronic pain G89.29 [facility] [address] [id number] [address] [place] [address] Jul, [facility] [address] [facility] [id number] [address] [place] [address] Apr, [facility] [address] [id number] [address] [place] [address] Apr, Injury of right ankle, initi al encounter S99.911A and Encounter for immunization Z23 [facility] [address] [facility] [id number] [address] [place] [address] Dec, [place] [address] [facility] [id number] [address] [place] [address] Nov, Pain in right ankle and join ts of right foot M25.571 ; Other chronic pain G89.29 and Post-traumatic arthritis of right ankle M19.171 [place] [address] [facility] [id number] [address] [place] [address] Oct, Arthritis M19.90 [place] [address] [facility] [id number] [address] [place] [address] Aug, Arthritis M19.90 [place] [address] [facility] [id number] [address] [place] [address] Aug, [place] [address] [id number] [address] [place] [address] Jul, [place] [address] [facility] [id number] [address] [place] [phone] June, Arthropathy, unspecified M12 .9 [facility] [address] [facility] [id number] [address] [place] [address] May, Asthma J45.909 and Major dep ressive disorder, single episode F32.9 [facility] [address] [id number] [address] [place] [address] Mar, Closed fracture of shaft of right fibula, unspecified fracture morphology, initial encounter S82.401A [facility] [address] [id number] [address] [place] [address] Feb, [facility] [address] [facility] [id number] [address] [place] [phone] Feb, [facility] [address] [id number] [address] [place] [id number] Nov, [facility] [address] [facility] [id number] [address] [place] [address] Nov, Bipolar disorder F31.9 ; Enc ounter for immunization Z23 and Asthma J45.909 [facility] [address] [facility] [id number] [address] [place] [address] Aug, [facility] [address] [facility] [id number] [address] [place] [address] May, [facility] [address] [facility] [id number] [address] [place] [address] Apr, [facility] [address] [facility] [id number] [address] [place] [phone] Apr, [facility] [address] [facility] [id number] [address] [place] [id number] Apr, URI (upper respiratory infec tion) J06.9 and Bipolar disorder F31.9 [facility] [address] [facility] [id number] [address] [place] [id number] Feb, [facility] [address] [facility] [id number] [address] [place] [address] Feb, Asthma J45.909 and Alcoholis m F10.20 [facility] [address] [facility] [id number] [address] [place] [phone] Jan, [facility] [address] [facility] [id number] [address] [place] [phone] Jan, [facility] [address] [facility] [id number] [address] [place] [address] Jan, [facility] [address] [facility] [id number] [address] [place] [address] Nov, Alcoholism F10.20 and Anxiet y F41.9 [facility] [address] [id number] [address] [place] [id number] Jul, Anxiety 300.00 and Arthropat hy 716.90 [facility] [address] [facility] [id number] [address] [place] [address] Jul, [facility] [address] [facility] [id number] [address] [place] [address] Jul, Anxiety state 300.00 [facility] [address] [id number] [address] [place] [phone] May, [facility] [address] [facility] [id number] [address] [place] [address] May, [facility] [address] [facility] [id number] [address] [place] [phone] Apr, [facility] [address] [facility] [id number] [address] [place] [phone] Apr, [facility] [address] [facility] [id number] [address] [place] [phone] Mar, [facility] [address] [facility] [id number] [address] [place] [id number] Mar, [facility] [address] [facility] [id number] [address] [place] [phone] Feb, [facility] [address] [facility] [id number] [address] [place] [phone] Feb, [facility] [address] [facility] [id number] [address] [place] [id number] Feb, [facility] [address] [id number] [address] [place] [address], [place] [address] Feb, [facility] [address] [id number] [address] [place] [address], [place] [address] Jan, [facility] [address] [id number] [address] [place] [address], [place] [address] Jan, [facility] [address] [id number] [address] [place] [address], [place] [address] Jan, [facility] [address] [id number] [address] [place] [address], [place] [address] Jan, [facility] [address] [id number] [address] [place] [address], [place] [address] Nov, [facility] [address] [id number] [address] [place] [address], [place] [address] Nov, [facility] [address] [id number] [address] [place] [address], [place] [address] Nov, [facility] [address] [id number] [address] [place] [address], [place] [address] Nov, [facility] [address] [id number] [address] [place] [address], [place] [address] Nov, [facility] [address] [id number] [address] [place] [address], [place] [address] Nov, [facility] [address] [id number] [address] [place] [address], [place] [address] Nov, [facility] [address] [id number] [address] [place] [address], [place] [address] Nov, [facility] [address] [id number] [address] [place] [address], [place] [address] Nov, [facility] [address] [id number] [address] [place] [address], [place] [address] Nov, [facility] [address] [id number] [address] [place] [address], [place] [address] 13 Nov, 2013 [facility] [address] [id number] [address] [place] [address], [place] [address] 07 Nov, 2013 [facility] [address] [id number] [address] [place] [address], [place] [address] 07 Nov, 2013 [facility] [address] [id number] [address] [place] [address], [place] [address] 30 Sep, 2013 [facility] [address] [id number] [address] [place] [address], [place] [address] 30 Sep, 2013 [facility] [address] [id number] [address] [place] [address], [place] [address] 26 Sep, 2013 [facility] [address] [id number] [address] [place] [address], [place] [address] 26 Sep, 2013 [facility] [address] [id number] [address] [place] [address], [place] [address] 08 Sep, 2013 [facility] [address] [id number] [address] [place] [address], [place] [address] 08 Sep, 2013 [facility] [address] [id number] [address] [place] [address], [place] [address] 04 Sep, 2013 [facility] [address] [id number] [address] [place] [address], [place] [address] 04 Sep, 2013 [facility] [address] [id number] [address] [place] [address], [place] [address] 04 Sep, 2013 [facility] [address] [id number] [address] [place] [address], [place] [address] 04 Sep, 2013 [facility] [address] [id number] [address] [place] [address], [place] [address] 04 Sep, 2013 [facility] [address] [id number] [address] [place] [address], [place] [address] 04 Oct, 2013 [facility] [address] [id number] [address] [place] [address], [place] [address] Sep, [facility] [address] [id number] [facility] [place] [address] Sep, [facility] [address] [id number] [facility] [place] [address] Sep, [facility] [address] [id number] [facility] [place] [address] Sep, [facility] [address] [id number] [address] [place] [address], [place] [address] Sep, [facility] [address] [id number] [address] [place] [address], [place] [address] Sep, [facility] [address] [id number] [address] [place] [address], [place] [address] Sep, [facility] [address] [id number] [address] [place] [address], [place] [address] Sep, [facility] [address] [id number] [address] [place] [address], [place] [address] Aug, [facility] [address] [id number] [address] [place] [address], [place] [address] Aug, [facility] [address] [id number] [address] [place] [address], [place] [address] Aug, [facility] [address] [id number] [address] [place] [address], [place] [address] Aug, [facility] [address] [id number] [address] [place] [address], [place] [address] Jul, [facility] [address] [id number] [address] [place] [address], [place] [address] Jul, [facility] [address] [id number] [address] [place] [address], [place] [address] Jul, [facility] [address] [id number] [address] [place] [address], [place] [address] Jul, [facility] [address] [id number] [address] [place] [address], [place] [address] Jul, [facility] [address] [id number] [address] [place] [address], [place] [address] Jul, [facility] [address] [id number] [address] [place] [address], [place] [address] June, [facility] [address] [id number] [address] [place] [address], [place] [address] June, [facility] [address] [id number] [address] [place] [address], [place] [address] June, [facility] [address] [id number] [address] [place] [address], [place] [address] June, [facility] [address] [id number] [address] [place] [address], [place] [address] June, [facility] [address] [id number] [address] [place] [address], [place] [address] June, [facility] [address] [id number] [address] [place] [address], [place] [address] May, [facility] [address] [id number] [address] [place] [address], [place] [address] May, [facility] [address] [id number] [address] [place] [address], [place] [address] May, [facility] [address] [id number] [address] [place] [address], [place] [address] May, [facility] [address] [id number] [address] [place] [address], [place] [address] May, [facility] [address] [id number] [address] [place] [address], [place] [address] May, [facility] [address] [id number] [address] [place] [address], [place] [address] May, [facility] [address] [id number] [address] [place] [address], [place] [address] May, [facility] [address] [id number] [facility] [place] [address] May, [facility] [address] [id number] [facility] [place] [address] May, [facility] [address] [id number] [facility] [place] [address] Apr, [facility] [address] [id number] [facility] [place] [address] Apr, [facility] [address] [id number] [facility] [place] [address] 10 Apr, 2013 [facility] [address] [id number] [address] [place] [address], [place] [address] 10 Apr, 2013 [facility] [address] [id number] [address] [place] [address], [place] [address] Apr, [facility] [address] [id number] [address] [place] [address], [place] [address] Apr, [facility] [address] [id number] [address] [place] [address], [place] [address] Apr, [facility] [address] [id number] [address] [place] [address], [place] [address] Apr, [facility] [address] [id number] [address] [place] [address], [place] [address] Apr, [facility] [address] [id number] [address] [place] [address], [place] [address] Apr, [facility] [address] [id number] [address] [place] [address], [place] [address] Apr, [facility] [address] [id number] [address] [place] [address], [place] [address] Apr, [facility] [address] [id number] [address] [place] [address], [place] [address] Mar, [facility] [address] [id number] [address] [place] [address], [place] [address] Mar, [facility] [address] [id number] [address] [place] [address], [place] [address] Mar, [facility] [address] [id number] [address] [place] [address], [place] [address] Mar, [facility] [address] [id number] [address] [place] [address], [place] [address] Feb, [facility] [address] [id number] [address] [place] [address], [place] [address] Feb, [facility] [address] [id number] [address] [place] [address], [place] [address] Feb, [facility] [address] [id number] [address] [place] [address], [place] [address] Feb, [facility] [address] [id number] [address] [place] [address], [place] [address] Feb, [facility] [address] [id number] [address] [place] [address], [place] [address] Feb, [facility] [address] [id number] [address] [place] [address], [place] [address] Feb, [facility] [address] [id number] [address] [place] [address], [place] [address] Feb, [facility] [address] [id number] [address] [place] [address], [place] [address] Feb, [facility] [address] [id number] [address] [place] [address], [place] [address] Feb, [facility] [address] [id number] [address] [place] [address], [place] [address] Jan, [facility] [address] [id number] [address] [place] [address], [place] [address] Jan, [facility] [address] [id number] [address] [place] [address], [place] [address] Jan, [facility] [address] [id number] [address] [place] [address], [place] [address] Jan, [facility] [address] [id number] [address] [place] [address], [place] [address] Jan, [facility] [address] [id number] [address] [place] [address], [place] [address] Jan, [facility] [address] [id number] [address] [place] [address], [place] [address] Jan, [facility] [address] [id number] [address] [place] [address], [place] [address] Jan, [facility] [address] [id number] [address] [place] [address], [place] [address] Jan, [facility] [address] [id number] [address] [place] [address], [place] [address] Dec, [facility] [address] [id number] [address] [place] [address], [place] [address] Dec, [facility] [address] [id number] [address] [place] [address], [place] [address] Dec, [facility] [address] [id number] [address] [place] [address], [place] [address] Dec, [facility] [address] [id number] [address] [place] [address], [place] [address] Nov, [facility] [address] [id number] [address] [place] [address], [place] [address] Nov, [facility] [address] [id number] [address] [place] [address], [place] [address] Nov, [facility] [address] [id number] [address] [place] [address], [place] [address] Nov, [facility] [address] [id number] [address] [place] [address], [place] [address] Nov, [facility] [address] [id number] [address] [place] [address], [place] [address] Nov, [facility] [address] [id number] [address] [place] [address], [place] [address] Oct, [facility] [address] [id number] [address] [place] [address], [place] [address] Oct, [facility] [address] [id number] [address] [place] [address], [place] [address] Sep, [facility] [address] [id number] [address] [place] [address], [place] [address] Sep, [facility] [address] [id number] [address] [place] [address], [place] [address] Sep, [facility] [address] [id number] [address] [place] [address], [place] [address] Sep, [facility] [address] [id number] [address] [place] [address], [place] [address] Aug, [facility] [address] [id number] [address] [place] [address], [place] [address] Aug, [facility] [address] [id number] [address] [place] [address], [place] [address] Aug, [facility] [address] [id number] [address] [place] [address], [place] [address] Jul, [facility] [address] [id number] [address] [place] [address], [place] [address] Jul, [facility] [address] [id number] [address] [place] [address], [place] [address] Jul, [facility] [address] [id number] [address] [place] [address], [place] [address] Jul, [facility] [address] [id number] [address] [place] [address], [place] [address] June, [facility] [address] [id number] [address] [place] [address], [place] [address] June, [facility] [address] [id number] [address] [place] [address], [place] [address] 30 May, 2012 [facility] [address] [id number] [address] [place] [address], [place] [address] 03 May, 2012 [facility] [address] [id number] [address] [place] [address], [place] [address] 29 Apr, 2012 [facility] [address] [id number] [address] [place] [address], [place] [address] Apr, [facility] [address] [id number] [address] [place] [address], [place] [address] 18 Mar, 2012 [facility] [address] [id number] [address] [place] [address], [place] [address] Mar, [facility] [address] [id number] [address] [place] [address], [place] [address] 31 Feb, 2012 [facility] [address] [id number] [address] [place] [address], [place] [address] 24 Feb, 2012 [facility] [address] [id number] [address] [place] [address], [place] [address] 18 Feb, 2012 [facility] [address] [id number] [address] [place] [address], [place] [address] 17 Feb, 2012 [facility] [address] [id number] [address] [place] [address], [place] [address] 17 Feb, 2012 [facility] [address] [id number] [address] [place] [address], [place] [address] 16 Feb, 2012 [facility] [address] [id number] [address] [place] [address], [place] [address] 16 Feb, 2012 [facility] [address] [id number] [address] [place] [address], [place] [address] 14 Feb, 2012 [facility] [address] [id number] [address] [place] [address], [place] [address] 11 Feb, 2012 [facility] [address] [id number] [address] [place] [address], [place] [address] Jan, [facility] [address] [id number] [address] [place] [address], [place] [address] Jan, [facility] [address] [id number] [address] [place] [address], [place] [address] Jan, [facility] [address] [id number] [address] [place] [address], [place] [address] Jan, [facility] [address] [id number] [address] [place] [address], [place] [address] Dec, [facility] [address] [id number] [address] [place] [address], [place] [address] Dec, [facility] [address] [id number] [address] [place] [address], [place] [address] Dec, [facility] [address] [id number] [address] [place] [address], [place] [address] Dec, [facility] [address] [id number] [address] [place] [address], [place] [address] Oct, [facility] [address] [id number] [address] [place] [address], [place] [address] Sep, [facility] [address] [id number] [address] [place] [address], [place] [address] Sep, [facility] [address] [id number] [address] [place] [address], [place] [address] Aug, [facility] [address] [id number] [address] [place] [address], [place] [address] Jul, [facility] [address] [id number] [address] [place] [address], [place] [address] June, [facility] [address] [id number] [address] [place] [address], [place] [address] June, [facility] [address] [id number] [address] [place] [address], [place] [address] May, [facility] [address] [id number] [address] [place] [id number] Apr, [facility] [address] [id number] [address] [place] [phone] Mar, [facility] [address] [facility] [id number] [address] [place] [id number] Mar, [facility] [address] [facility] [id number] [address] [place] [phone] Feb, [facility] [address] [facility] [id number] [address] [place] [id number] Dec, [facility] [address] [facility] [id number] [address] [place] [id number] Nov, [facility] [address] [facility] [id number] [address] [place] [phone] Sep, [facility] [address] [facility] [id number] [address] [place] [id number] Aug, IMMUNIZATIONS No Known Immunizations SOCIAL HISTORY [...]
--- OUTSIDE RECORDS SUMMARY | 2019-07-02 15:51 | XMS REPORT | Continuity of Care Document ---
Author Organization Unknown Address Unknown Phone Unavailable Allergies Active Description Code Type Severity Reaction Onset Reported/Identified Relationship to Patient Clinical Status Yes NO KNOWN DRUG ALLERGIES UNKNOWN NO KNOWN DRUG ALLERG Yes NO KNOWN DRUG ALLERGIES UNKNOWN UNKNOWN Yes No Known Drug Allergies [id number] Drug Allergy Unknown N/A 07/20/2012 Medications Medication Packaging Start Date St op Date Route Dosage Sig NORMAL SALINE 1000CC IV BAG INJ 0.9 % (NS 1000CC IV BAG) ml 08/02/2018 08/02/2018 ONCE&1837 THIAMINE VIAL 2CC INJ 100 MG /CC (VIT B1 2CC VIAL) MG 08/02/2018 08/02/2018 ONCE&1841 NORMAL SALINE 1000CC IV BAG INJ 0.9 % (NS 1000CC IV BAG) ml 06/24/2019 06/24/2019 ONCE&1642 Problems Date Dx Coded Attending Type Code [...] MD 465.9 Upper Respiratory Infection 04/01/2010 305.1 NOND EPENDENT TOBACCO USE DISORDER 04/01/2010 465.9 Uppe r Respiratory Infection 04/01/2010 HUMA LOZOYA MD 305.1 [...] MD 465.9 Upper Respiratory Infection 04/01/2010 DWIGHT VESSEL ORDINARY SEAMAN, APRIL A 30 5.1 NONDEPENDENT TOBACCO USE DISORDER 04/01/2010 DWIGHT VESSEL ORDINARY SEAMAN, APRIL A 46 5.9 Upper Respiratory Infection 04/01/2010 DWIGHT VESSEL ORDINARY SEAMAN, APRIL A 30 5.1 NONDEPENDENT TOBACCO USE DISORDER 04/01/2010 DWIGHT VESSEL ORDINARY SEAMAN, APRIL A 46 5.9 Upper Respiratory Infection 04/01/2010 BALDERRAMA DO BERRY K 305.1 NONDEPENDENT TOBACCO USE DISORDER 04/01/2010 BALDERRAMA DO BERRY K 465.9 Upper Respiratory Infection 04/01/2010 BALDERRAMA DO BERRY K 305.1 NONDEPENDENT TOBACCO USE DISORDER 04/01/2010 BALDERRAMA DO BERRY K 465.9 Upper Respiratory Infection 04/01/2010 [...] MD 465.9 Upper Respiratory Infection 04/01/2010 305.1 NOND EPENDENT TOBACCO USE DISORDER 04/01/2010 465.9 Uppe r Respiratory Infection 04/01/2010 HUMA LOZOYA MD 305.1 NONDEPENDENT TOBACCO USE DISORDER 04/01/2010 DEVORA PINEDO, HUMA 465.9 Upper Respiratory Infection 05/14/2010 HUMA LOZOYA MD 354.0 CARPAL TUNNEL SYNDROME 05/14/2010 HUMA LOZOYA MD V72.3 1 Director Of Patient Care Exam, Routine 05/14/2010 BALDERRAMA DO, BERRY K 354.0 CARPAL TUNNEL SYNDROME 05/14/2010 BALDERRAMA DO, BERRY K V72.31 Director Of Patient Care Exam, Routine 05/14/2010 BALDERRAMA DO, BERRY K 354.0 CARPAL TUNNEL SYNDROME 05/14/2010 BALDERRAMA DO, BERRY K V72.31 Director Of Patient Care Exam, Routine 05/14/2010 HUMA LOZOYA MD 354.0 CARPAL TUNNEL SYNDROME 05/14/2010 HUMA LOZOYA MD V72.3 1 Director Of Patient Care Exam, Routine 05/14/2010 354.0 CARP AL TUNNEL SYNDROME 05/14/2010 V72.31 Director Of Patient Care Exam, Routine 05/14/2010 HUMA LOZOYA MD 354.0 CARPAL TUNNEL SYNDROME 05/14/2010 HUMA LOZOYA MD V72.3 1 Director Of Patient Care Exam, Routine 05/14/2010 HUMA LOZOYA MD 354.0 CARPAL TUNNEL SYNDROME 05/14/2010 HUMA LOZOYA MD V72.3 1 Director Of Patient Care Exam, Routine 05/14/2010 HUMA LOZOYA MD 354.0 CARPAL TUNNEL SYNDROME 05/14/2010 HUMA LOZOYA MD V72.3 1 Director Of Patient Care Exam, Routine 05/14/2010 HUMA LOZOYA MD 354.0 CARPAL TUNNEL SYNDROME 05/14/2010 HUMA LOZOYA MD V72.3 1 Director Of Patient Care Exam, Routine 05/14/2010 HUMA LOZOYA MD 354.0 CARPAL TUNNEL SYNDROME 05/14/2010 HUMA LOZOYA MD V72.3 1 Director Of Patient Care Exam, Routine 05/14/2010 DWIGHT VESSEL ORDINARY SEAMAN, APRIL A 35 4.0 CARPAL TUNNEL SYNDROME 05/14/2010 APRIL QUINTANILLA APRN V72.31 Director Of Patient Care Exam, Routine 05/14/2010 DWIGHT VESSEL ORDINARY SEAMAN, APRIL A 35 4.0 CARPAL TUNNEL SYNDROME 05/14/2010 APRIL QUINTANILLA APRN V72.31 Director Of Patient Care Exam, Routine 05/14/2010 BALDERRAMA DO, BERRY K 354.0 CARPAL TUNNEL SYNDROME 05/14/2010 BERRY BALDERRAMA DO V72.31 Director Of Patient Care Exam, Routine 05/14/2010 BERRY BALDERRAMA DO K 354.0 CARPAL TUNNEL SYNDROME 05/14/2010 BERRY BALDERRAMA DO V72.31 Director Of Patient Care Exam, Routine 05/14/2010 HUMA LOZOYA MD 354.0 CARPAL TUNNEL SYNDROME 05/14/2010 HUMA LOZOYA MD V72.3 1 Director Of Patient Care Exam, Routine 05/14/2010 HUMA LOZOYA MD 354.0 CARPAL TUNNEL SYNDROME 05/14/2010 HUMA LOZOYA MD V72.3 1 Director Of Patient Care Exam, Routine 05/14/2010 ADDIS SPRINGER APRN 354.0 CARPAL TUNNEL SYNDROME 05/14/2010 ADDIS SPRINGER APRN V72.31 Director Of Patient Care Exam, Routine 05/14/2010 HUMA LOZOYA MD 354.0 CARPAL TUNNEL SYNDROME 05/14/2010 HUMA LOZOYA MD V72.3 1 Director Of Patient Care Exam, Routine 05/14/2010 HUMA LOZOYA MD 354.0 CARPAL TUNNEL SYNDROME 05/14/2010 HUMA LOZOYA MD V72.3 1 Director Of Patient Care Exam, Routine 05/14/2010 354.0 CARP AL TUNNEL SYNDROME 05/14/2010 V72.31 Director Of Patient Care Exam, Routine 05/14/2010 HUMA LOZOYA MD 354.0 CARPAL TUNNEL SYNDROME 05/14/2010 HUMA LOZOYA MD V72.3 1 Director Of Patient Care Exam, Routine 06/09/2010 HUMA LOZOYA MD 381.8 1 Dysfunction Of Eustachian Tube 06/09/2010 BERRY BALDERRAMA DO 381.81 Dysfunction Of Eustachian Tube 06/09/2010 BERRY BALDERRAMA DO 381.81 Dysfunction Of Eustachian Tube 06/09/2010 HUMA LOZOYA MD 381.8 1 Dysfunction Of Eustachian Tube 06/09/2010 381.81 Dys function Of Eustachian Tube 06/09/2010 HUMA LOZOYA MD 381.8 1 Dysfunction Of Eustachian Tube 06/09/2010 HUMA LOZOYA MD 381.8 1 Dysfunction Of Eustachian Tube 06/09/2010 HUMA LOZOYA MD 381.8 1 Dysfunction Of Eustachian Tube 06/09/2010 HUMA LOZOYA MD 381.8 1 Dysfunction Of Eustachian Tube 06/09/2010 HUMA LOZOYA MD 381.8 1 Dysfunction Of Eustachian Tube 06/09/2010 APRIL QUINTANILLA APRN 381.81 Dysfunction Of Eustachian Tube 06/09/2010 APRIL QUINTANILLA APRN 381.81 Dysfunction Of Eustachian Tube 06/09/2010 BERRY BALDERRAMA DO 381.81 Dysfunction Of Eustachian Tube 06/09/2010 BERRY BALDERRAMA DO 381.81 Dysfunction Of Eustachian Tube 06/09/2010 HUMA LOZOYA MD 381.8 1 Dysfunction Of Eustachian Tube 06/09/2010 HUMA LOZOYA MD 381.8 1 Dysfunction Of Eustachian Tube 06/09/2010 ADDIS SPRINGER APRN 381.81 Dysfunction Of Eustachian Tube 06/09/2010 HUAM LOZOYA MD 381.8 1 Dysfunction Of Eustachian Tube 06/09/2010 HUMA LOZOYA MD 381.8 1 Dysfunction Of Eustachian Tube 06/09/2010 381.81 Dys function Of Eustachian Tube 06/09/2010 HUMA LOZOYA MD 381.8 1 Dysfunction Of Eustachian Tube 06/16/2010 HUMA LOZOYA MD 719.4 3 Pain In Joint Involving Forearm 06/16/2010 BERRY BALDERRAMA DO 719.43 Pain In Joint Involving Forearm 06/16/2010 BERRY BALDERRAMA DO 719.43 Pain In Joint Involving Forearm 06/16/2010 HUMA LOZOYA MD 719.4 3 Pain In Joint Involving Forearm 06/16/2010 719.43 Joe n In Joint Involving Forearm 06/16/2010 HUMA LOZOYA MD9.4 3 Pain In Joint Involving Forearm 06/16/2010 HUMA LOZOYA MD 719.4 3 Pain In Joint Involving Forearm 06/16/2010 HUMA LOZOYA MD9.4 3 Pain In Joint Involving Forearm 06/16/2010 HUMA LOZOYA MD 719.4 3 Pain In Joint Involving Forearm 06/16/2010 HUMA LOZOYA MD9.4 3 Pain In Joint Involving Forearm 06/16/2010 APRIL QUINTANILLA APRN 719.43 Pain In Joint Involving Forearm 06/16/2010 APRIL QUINTANILLA APRN 719.43 Pain In Joint Involving Forearm 06/16/2010 BERRY BALDERRAMA DO K 719.43 Pain In Joint Involving Forearm 06/16/2010 BERRY BALDERRAMA DO K 719.43 Pain In Joint Involving Forearm 06/16/2010 HUMA LOZOYA MD 719.4 3 Pain In Joint Involving Forearm 06/16/2010 HUMA LOZOYA MD 719.4 3 Pain In Joint Involving Forearm 06/16/2010 ADDIS SPRINGER APRN 719.43 Pain In Joint Involving Forearm 06/16/2010 HUMA LOZOYA MD 719.4 3 Pain In Joint Involving Forearm 06/16/2010 HUMA LOZOYA MD 719.4 3 Pain In Joint Involving Forearm 06/16/2010 719.43 Joe n In Joint Involving Forearm 06/16/2010 HUMA LOZOYA MD 719.4 3 Pain In Joint Involving Forearm 08/12/2010 HUMA LOZOYA MD 303.0 3 Acute Alcoholic Intoxication In Alcoholism In Remission 08/12/2010 HUMA LOZOYA MD 305.7 3 NONDEPENDENT AMPHETAMINE OR RELATED ACTING SYMPATHOMIMETIC ABUSE IN REMISSION 08/12/2010 HUMA LOZOYA MD 782.3 Edema 08/12/2010 HUMA LOZOYA MD 786.0 2 Orthopnea 08/12/2010 JEOVANNY BALDERRAMA DOA K 303.03 Acute Alcoholic Intoxication In Alcoholism In Remission 08/12/2010 JEOVANNY BALDERRAMA DOA K 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 08/12/2010 JEOVANNY BALDERRAMA DOA K 782.3 Edema 08/12/2010 JEOVANNY BALDERRAMA DOA K 786.02 Orthopnea 08/12/2010 JEOVANNY BALDERRAMA DOA K 303.03 Acute Alcoholic Intoxication In Alcoholism In Remission 08/12/2010 JEOVANNY BALDERRAMA DOA K 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 08/12/2010 JEOVANNY BALDERRAMA DOA K 782.3 Edema 08/12/2010 TACOS LEDESMA BERRY K 786.02 Orthopnea 08/12/2010 HUMA LOZOYA MD 303.0 3 Acute Alcoholic Intoxication In Alcoholism In Remission 08/12/2010 HUMA LOZOYA MD 305.7 3 NONDEPENDENT AMPHETAMINE OR RELATED ACTING SYMPATHOMIMETIC ABUSE IN REMISSION 08/12/2010 HUMA LOZOYA MD 782.3 Edema 08/12/2010 HUMA LOZOYA MD 786.0 2 Orthopnea 08/12/2010 303.03 Acu te Alcoholic Intoxication In Alcoholism In Remission 08/12/2010 305.73 NON DEPENDENT AMPHETAMINE OR RELATED ACTING SYMPATHOMIMETIC ABUSE IN REMISSION 08/12/2010 782.3 Edema 08/12/2010 786.02 Ort hopnea 08/12/2010 HUMA LOZOYA MD 303.0 3 Acute Alcoholic Intoxication In Alcoholism In Remission 08/12/2010 HUMA LOZOYA MD 305.7 3 NONDEPENDENT AMPHETAMINE OR RELATED ACTING SYMPATHOMIMETIC ABUSE IN REMISSION 08/12/2010 HUMA LOZOYA MD 782.3 Edema 08/12/2010 HUMA LOZOYA MD 786.0 2 Orthopnea 08/12/2010 HUMA LOZOYA MD 303.0 3 Acute Alcoholic Intoxication In Alcoholism In Remission 08/12/2010 HUMA LOZOYA MD 305.7 3 NONDEPENDENT AMPHETAMINE OR RELATED ACTING SYMPATHOMIMETIC ABUSE IN REMISSION 08/12/2010 HUMA LOZOYA MD 782.3 Edema 08/12/2010 HUMA LOZOYA MD 786.0 2 Orthopnea 08/12/2010 HUMA LOZOYA MD 303.0 3 Acute Alcoholic Intoxication In Alcoholism In Remission 08/12/2010 HUMA LOZOYA MD 305.7 3 NONDEPENDENT AMPHETAMINE OR RELATED ACTING SYMPATHOMIMETIC ABUSE IN REMISSION 08/12/2010 HUMA LOZOYA MD 782.3 Edema 08/12/2010 HUMA LOZOYA MD 786.0 2 Orthopnea 08/12/2010 HUMA LOZOYA MD 303.0 3 Acute Alcoholic Intoxication In Alcoholism In Remission 08/12/2010 HUMA LOZOYA MD 305.7 3 NONDEPENDENT AMPHETAMINE OR RELATED ACTING SYMPATHOMIMETIC ABUSE IN REMISSION 08/12/2010 HUMA LOZOYA MD 782.3 Edema 08/12/2010 HUMA LOZOYA MD 786.0 2 Orthopnea 08/12/2010 HUMA LOZOYA MD 303.0 3 Acute Alcoholic Intoxication In Alcoholism In Remission 08/12/2010 HUMA LOZOYA MD 305.7 3 NONDEPENDENT AMPHETAMINE OR RELATED ACTING SYMPATHOMIMETIC ABUSE IN REMISSION 08/12/2010 HUMA LOZOYA MD 782.3 Edema 08/12/2010 HUMA LOZOYA MD 786.0 2 Orthopnea 08/12/2010 DWIGHT FAIRCHILD, APRIL A 303.03 Acute Alcoholic Intoxication In Alcoholism In Remissio n 08/12/2010 DWIGHT FAIRCHILD, APRIL A 305.73 NONDEPENDENT AMPHETAMINE OR RELATED ACTI NG SYMPATHOMIMETIC ABUSE IN REMISSION 08/12/2010 DWIGHT FAIRCHILD, APRIL A 78 2.3 Edema 08/12/2010 DWIGHT FAIRCHILD, APRIL A 786.02 Orthopnea 08/12/2010 DWIGHT FAIRCHILD, APRIL A 303.03 Acute Alcoholic Intoxication In Alcoholism In Remissio n 08/12/2010 DWIGHT FAIRCHILD, APRIL A 305.73 NONDEPENDENT AMPHETAMINE OR RELATED ACTI NG SYMPATHOMIMETIC ABUSE IN REMISSION 08/12/2010 DWIGHT FAIRCHILD, APRIL A 78 2.3 Edema 08/12/2010 DWIGHT FAIRCHILD, APRIL A 786.02 Orthopnea 08/12/2010 BALDERRAMA DO, [...] K 786.02 Orthopnea 08/12/2010 HUMA LOZOYA MD 303.0 3 Acute Alcoholic Intoxication In Alcoholism In Remission 08/12/2010 HUMA LOZOYA MD 305.7 3 NONDEPENDENT AMPHETAMINE OR RELATED ACTING SYMPATHOMIMETIC ABUSE IN REMISSION 08/12/2010 HUMA LOZOYA MD 782.3 Edema 08/12/2010 HUMA LOZOYA MD 786.0 2 Orthopnea 08/12/2010 HUMA LOZOYA MD 303.0 3 Acute Alcoholic Intoxication In Alcoholism In Remission 08/12/2010 HUMA LOZOYA MD 305.7 3 NONDEPENDENT AMPHETAMINE OR RELATED ACTING SYMPATHOMIMETIC ABUSE IN REMISSION 08/12/2010 HUMA LOZOYA MD 782.3 Edema 08/12/2010 HUMA LOZOYA MD 786.0 2 Orthopnea 08/12/2010 ADDIS SPRINGER APRN A 303.03 Acute Alcoholic Intoxication In Alcoholism In Remissio n 08/12/2010 ADDIS SPRINGER APRN A 305.73 NONDEPENDENT AMPHETAMINE OR RELATED ACTI NG SYMPATHOMIMETIC ABUSE IN REMISSION 08/12/2010 ADDIS SPRINGER APRN A 782.3 Edema 08/12/2010 ADDIS SPRINGER APRN 786.02 Orthopnea 08/12/2010 HUMA LOZOYA MD 303.0 3 Acute Alcoholic Intoxication In Alcoholism In Remission 08/12/2010 HUMA LOZOYA MD 305.7 3 NONDEPENDENT AMPHETAMINE OR RELATED ACTING SYMPATHOMIMETIC ABUSE IN REMISSION 08/12/2010 HUMA LOZOYA MD 782.3 Edema 08/12/2010 HUMA LOZOYA MD 786.0 2 Orthopnea 08/12/2010 HUMA LOZOYA MD 303.0 3 Acute Alcoholic Intoxication In Alcoholism In Remission 08/12/2010 HUMA LOZOYA MD 305.7 3 NONDEPENDENT AMPHETAMINE OR RELATED ACTING SYMPATHOMIMETIC ABUSE IN REMISSION 08/12/2010 HUMA LOZOYA MD 782.3 Edema 08/12/2010 HUMA LOZOYA MD 786.0 2 Orthopnea 08/12/2010 303.03 Acu te Alcoholic Intoxication In Alcoholism In Remission 08/12/2010 305.73 NON DEPENDENT AMPHETAMINE OR RELATED ACTING SYMPATHOMIMETIC ABUSE IN REMISSION 08/12/2010 782.3 Edema 08/12/2010 786.02 Ort hopnea 08/12/2010 HUMA LOZOYA MD 303.0 3 Acute Alcoholic Intoxication In Alcoholism In Remission 08/12/2010 HUMA LOZOYA MD 305.7 3 NONDEPENDENT AMPHETAMINE OR RELATED ACTING SYMPATHOMIMETIC ABUSE IN REMISSION 08/12/2010 HUMA LOZOYA MD 782.3 Edema 08/12/2010 HUMA LOZOYA MD 786.0 2 Orthopnea 08/15/2010 HUMA LOZOYA MD 790.0 9 OTHER ABNORMALITY OF RED BLOOD CELLS 08/15/2010 BALDERRAMA DO, BERRY K 790.09 OTHER ABNORMALITY OF RED BLOOD CELLS 08/15/2010 BALDERRAMA DO BERRY K 790.09 OTHER ABNORMALITY OF RED BLOOD CELLS 08/15/2010 HUMA LOZOYA MD 790.0 9 OTHER ABNORMALITY OF RED BLOOD CELLS 08/15/2010 790.09 OTH ER ABNORMALITY OF RED BLOOD CELLS 08/15/2010 HUMA LOZOYA MD 790.0 9 OTHER ABNORMALITY OF RED BLOOD CELLS 08/15/2010 HUMA LOZOYA MD 790.0 9 OTHER ABNORMALITY OF RED BLOOD CELLS 08/15/2010 HUMA LOZOYA MD 790.0 9 OTHER ABNORMALITY OF RED BLOOD CELLS 08/15/2010 HUMA LOZOYA MD 790.0 9 OTHER ABNORMALITY OF RED BLOOD CELLS 08/15/2010 HUMA LOZOYA MD 790.0 9 OTHER ABNORMALITY OF RED BLOOD CELLS 08/15/2010 DWIGHT VESSEL ORDINARY SEAMAN, APRIL A 790.09 OTHER ABNORMALITY OF RED BLOOD CELLS 08/15/2010 DWIGHT VESSEL ORDINARY SEAMAN, APRIL A 790.09 OTHER ABNORMALITY OF RED BLOOD CELLS 08/15/2010 JEOVANNY BALDERRAMA DOA K 790.09 OTHER ABNORMALITY OF RED BLOOD CELLS 08/15/2010 JEOVANNY BALDERRAMA DOA K 790.09 OTHER ABNORMALITY OF RED BLOOD CELLS 08/15/2010 HUMA LOZOYA MD 790.0 9 OTHER ABNORMALITY OF RED BLOOD CELLS 08/15/2010 HUMA LOZOYA MD 790.0 9 OTHER ABNORMALITY OF RED BLOOD CELLS 08/15/2010 SPRINGER VESSEL ORDINARY SEAMANADDIS A 790.09 OTHER ABNORMALITY OF RED BLOOD CELLS 08/15/2010 HUMA LOZOYA MD 790.0 9 OTHER ABNORMALITY OF RED BLOOD CELLS 08/15/2010 HUMA LOZOYA MD 790.0 9 OTHER ABNORMALITY OF RED BLOOD CELLS 08/15/2010 790.09 OT ER ABNORMALITY OF RED BLOOD CELLS 08/15/2010 HUMA LOZOYA MD 790.0 9 OTHER ABNORMALITY OF RED BLOOD CELLS 08/20/2010 HUMA LOZOYA MD 300.0 0 ANXIETY STATE UNSPECIFIED 08/20/2010 BERRY BALDERRAMA DO K 300.00 ANXIETY STATE UNSPECIFIED 08/20/2010 BERRY BALDERRAMA DO K 300.00 ANXIETY STATE UNSPECIFIED 08/20/2010 HUMA LOZOYA MD 300.0 0 ANXIETY STATE UNSPECIFIED 08/20/2010 300.00 ANX IETY STATE UNSPECIFIED 08/20/2010 HUMA LOZOYA MD 300.0 0 ANXIETY STATE UNSPECIFIED 08/20/2010 HUMA LOZOYA MD 300.0 0 ANXIETY STATE UNSPECIFIED 08/20/2010 HUMA LOZOYA MD 300.0 0 ANXIETY STATE UNSPECIFIED 08/20/2010 HUMA LOZOYA MD 300.0 0 ANXIETY STATE UNSPECIFIED 08/20/2010 HUMA LOZOYA MD 300.0 0 ANXIETY STATE UNSPECIFIED 08/20/2010 DWIGHT VESSEL ORDINARY SEAMAN, APRIL A 300.00 ANXIETY STATE UNSPECIFIED 08/20/2010 DWIGHT VESSEL ORDINARY SEAMAN, APRIL A 300.00 ANXIETY STATE UNSPECIFIED 08/20/2010 BALDERRAMA DO, BERRY K 300.00 ANXIETY STATE UNSPECIFIED 08/20/2010 BALDERRAMA DO, BERRY K 300.00 ANXIETY STATE UNSPECIFIED 08/20/2010 HUMA LOZOYA MD 300.0 0 ANXIETY STATE UNSPECIFIED 08/20/2010 HUMA LOZOYA MD 300.0 0 ANXIETY STATE UNSPECIFIED 08/20/2010 SPRINGER VESSEL ORDINARY SEAMAN, ADDIS A 300.00 ANXIETY STATE UNSPECIFIED 08/20/2010 HUMA LOZOYA MD 300.0 0 ANXIETY STATE UNSPECIFIED 08/20/2010 HUMA LOZOYA MD 300.0 0 ANXIETY STATE UNSPECIFIED 08/20/2010 300.00 ANX IETY STATE UNSPECIFIED 08/20/2010 HUMA LOZOYA MD 300.0 0 ANXIETY STATE UNSPECIFIED 12/11/2010 HUMA LOZOYA MD 724.5 BACKACHE UNSPECIFIED 12/11/2010 BALDERRAMA BERRY LEDESMA K 724.5 BACKACHE UNSPECIFIED 12/11/2010 BALDERRAMA BERRY LEDESMA K 724.5 BACKACHE UNSPECIFIED 12/11/2010 HUMA LOZOYA MD 724.5 BACKACHE UNSPECIFIED 12/11/2010 724.5 BACK ACHE UNSPECIFIED 12/11/2010 HUMA LOZOYA MD 724.5 BACKACHE UNSPECIFIED 12/11/2010 HUMA LOZOYA MD 724.5 BACKACHE UNSPECIFIED 12/11/2010 HUMA LOZOYA MD 724.5 BACKACHE UNSPECIFIED 12/11/2010 DEVORA PINEDO, HUMA 724.5 BACKACHE UNSPECIFIED 12/11/2010 HUMA LOZOYA MD 724.5 BACKACHE UNSPECIFIED 12/11/2010 DWIGHT ZEEN, APRIL A 72 4.5 BACKACHE UNSPECIFIED 12/11/2010 DWIGHT FAIRCHILD APRIL A 72 4.5 BACKACHE UNSPECIFIED 12/11/2010 BALDERRAMA DO, BERRY K 724.5 BACKACHE UNSPECIFIED 12/11/2010 BERRY BALDERRAMA DO 724.5 BACKACHE UNSPECIFIED 12/11/2010 HUMA LOZYOA MD 724.5 BACKACHE UNSPECIFIED 12/11/2010 HUMA LOZOYA MD 724.5 BACKACHE UNSPECIFIED 12/11/2010 ADDIS SPRINGER APRN 724.5 BACKACHE UNSPECIFIED 12/11/2010 HUMA LOZOYA MD 724.5 BACKACHE UNSPECIFIED 12/11/2010 HUMA LOZOYA MD 724.5 BACKACHE UNSPECIFIED 12/11/2010 724.5 BACK ACHE UNSPECIFIED 12/11/2010 HUMA LOZOYA MD 724.5 BACKACHE UNSPECIFIED 05/05/2011 HUMA LOZOYA MD 780.7 9 OTHER MALAISE AND FATIGUE 05/05/2011 BERRY BALDERRAMA DO 780.79 OTHER MALAISE AND FATIGUE 05/05/2011 BERRY BALDERRAMA DO 780.79 OTHER MALAISE AND FATIGUE 05/05/2011 HUMA LOZOYA MD 780.7 9 OTHER MALAISE AND FATIGUE 05/05/2011 780.79 OTH ER MALAISE AND FATIGUE 05/05/2011 HUMA LOZOYA MD 780.7 9 OTHER MALAISE AND FATIGUE 05/05/2011 HUMA LOZOYA MD 780.7 9 OTHER MALAISE AND FATIGUE 05/05/2011 HUMA LOZOYA MD 780.7 9 OTHER MALAISE AND FATIGUE 05/05/2011 HUMA LOZOYA MD 780.7 9 OTHER MALAISE AND FATIGUE 05/05/2011 HUMA LOZOYA MD 780.7 9 OTHER MALAISE AND FATIGUE 05/05/2011 DWIGHTAPRIL Tanner APRN A 780.79 OTHER MALAISE AND FATIGUE 05/05/2011 DWIGHTAPRIL Tanner APRN A 780.79 OTHER MALAISE AND FATIGUE 05/05/2011 BERRY BALDERRAMA DO 780.79 OTHER MALAISE AND FATIGUE 05/05/2011 BERRY BALDERRAMA DO 780.79 OTHER MALAISE AND FATIGUE 05/05/2011 HUMA LOZOYA MD 780.7 9 OTHER MALAISE AND FATIGUE 05/05/2011 HUMA LOZOYA MD 780.7 9 OTHER MALAISE AND FATIGUE 05/05/2011 ADDIS SPRINGER APRN 780.79 OTHER MALAISE AND FATIGUE 05/05/2011 HUMA LOZOYA MD 780.7 9 OTHER MALAISE AND FATIGUE 05/05/2011 HUMA LOZOYA MD 780.7 9 OTHER MALAISE AND FATIGUE 05/05/2011 780.79 OTH ER MALAISE AND FATIGUE 05/05/2011 HUMA LOZOYA MD 780.7 9 OTHER MALAISE AND FATIGUE 10/02/2011 HUMA LOZOYA MD E905. 1 VENOMOUS SPIDERS CAUSING POISONING AND TOXIC REACTIONS 10/02/2011 BERRY BALDERRAMA DO E905.1 VENOMOUS SPIDERS CAUSING POISONING AND TOXIC REACTIONS 10/02/2011 BERRY BALDERRAMA DO E905.1 VENOMOUS SPIDERS CAUSING POISONING AND TOXIC REACTIONS 10/02/2011 HUMA LOZOYA MD E905. 1 VENOMOUS SPIDERS CAUSING POISONING AND TOXIC REACTIONS 10/02/2011 E905.1 RAMO OMOUS SPIDERS CAUSING POISONING AND TOXIC REACTIONS 10/02/2011 HUMA LOZOYA MD E905. 1 VENOMOUS SPIDERS CAUSING POISONING AND TOXIC REACTIONS 10/02/2011 HUMA LOZOYA MD E905. 1 VENOMOUS SPIDERS CAUSING POISONING AND TOXIC REACTIONS 10/02/2011 HUMA LOZOYA MD E905. 1 VENOMOUS SPIDERS CAUSING POISONING AND TOXIC REACTIONS 10/02/2011 HUMA LOZOYA MD E905. 1 VENOMOUS SPIDERS CAUSING POISONING AND TOXIC REACTIONS 10/02/2011 HUMA LOZOYA MD E905. 1 VENOMOUS SPIDERS CAUSING POISONING AND TOXIC REACTIONS 10/02/2011 APRIL QUINTANILLA APRN E905.1 VENOMOUS SPIDERS CAUSING POISONING AND TOXIC REACTIONS 10/02/2011 APRIL QUINTANILLA APRN E905.1 VENOMOUS SPIDERS CAUSING POISONING AND TOXIC REACTIONS 10/02/2011 BERRY BALDERRAMA DO E905.1 VENOMOUS SPIDERS CAUSING POISONING AND TOXIC REACTIONS 10/02/2011 BERRY BALDERRAMA DO E905.1 VENOMOUS SPIDERS CAUSING POISONING AND TOXIC REACTIONS 10/02/2011 HUMA LOZOYA MD E905. 1 VENOMOUS SPIDERS CAUSING POISONING AND TOXIC REACTIONS 10/02/2011 HUMA LOZOYA MD E905. 1 VENOMOUS SPIDERS CAUSING POISONING AND TOXIC REACTIONS 10/02/2011 ADDIS SPRINGER APRN E905.1 VENOMOUS SPIDERS CAUSING POISONING AND TOXIC REACTIONS 10/02/2011 HUMA LOZOYA MD E905. 1 VENOMOUS SPIDERS CAUSING POISONING AND TOXIC REACTIONS 10/02/2011 HUMA LOZOYA MD E905. 1 VENOMOUS SPIDERS CAUSING POISONING AND TOXIC REACTIONS 10/02/2011 E905.1 RAMO OMOUS SPIDERS CAUSING POISONING AND TOXIC REACTIONS 10/02/2011 HUMA LOZOYA MD E905. 1 VENOMOUS SPIDERS CAUSING POISONING AND TOXIC REACTIONS [...] 627.2 MENOPAUSAL SX 02/19/2012 HUMA LOZOYA MD V76.1 0 BREAST CANCER SCREENING 02/19/2012 HUMA LOZOYA MD V76.2 CERVICAL CANCER SCREENING (PAP SMEAR) 02/19/2012 627.2 OLU PAUSAL SX 02/19/2012 V76.10 STACY AST CANCER SCREENING 02/19/2012 V76.2 CERV ICAL CANCER SCREENING (PAP SMEAR) 02/19/2012 HUMA LOZOYA MD7.2 MENOPAUSAL SX 02/19/2012 HUMA LOZOYA MD V76.1 0 BREAST CANCER SCREENING 02/19/2012 HUMA LOZOYA MD V76.2 CERVICAL CANCER SCREENING (PAP SMEAR) 02/19/2012 HUMA LOZOYA MD.2 MENOPAUSAL SX 02/19/2012 HUMA LOZOYA MD V76.1 0 BREAST CANCER SCREENING 02/19/2012 HUMA LOZOYA MD6.2 CERVICAL CANCER SCREENING (PAP SMEAR) 02/19/2012 HUMA LOZOYA MD7.2 MENOPAUSAL SX 02/19/2012 HUMA LOZOYA MD V76.1 0 BREAST CANCER SCREENING 02/19/2012 HUMA LOZOYA MD6.2 CERVICAL CANCER SCREENING (PAP SMEAR) 02/19/2012 HUMA LOZOYA MD.2 MENOPAUSAL SX 02/19/2012 HUMA LOZOYA MD V76.1 0 BREAST CANCER SCREENING 02/19/2012 HUMA LOZOYA MD V76.2 CERVICAL CANCER SCREENING (PAP SMEAR) 02/19/2012 HUMA LOZOYA MD 627.2 MENOPAUSAL SX 02/19/2012 HUMA LOZOYA MD V76.1 0 BREAST CANCER SCREENING 02/19/2012 HUMA LOZOYA MD V76.2 CERVICAL CANCER SCREENING (PAP SMEAR) 02/19/2012 APRIL QUINTANILLA APRN A 62 7.2 MENOPAUSAL SX 02/19/2012 DWIGHT FAIRCHILD APRIL A V76.10 BREAST CANCER SCREENING 02/19/2012 APRIL QUINTANILLA APRN A V7 6.2 CERVICAL CANCER SCREENING (PAP SMEAR) 02/19/2012 DWIGHT FAIRCHILD APRIL A 62 7.2 MENOPAUSAL SX 02/19/2012 JI QUINTANILLA APRNIDI A V76.10 BREAST CANCER SCREENING 02/19/2012 APRIL QUINTANILLA APRN A V7 6.2 CERVICAL CANCER SCREENING (PAP SMEAR) 02/19/2012 BERRY BALDERRAMA DO 627.2 MENOPAUSAL SX 02/19/2012 BERRY BALDERRAMA DO V76.10 BREAST CANCER SCREENING 02/19/2012 BERRY BALDERRAMA DO V76.2 CERVICAL CANCER SCREENING (PAP SMEAR) 02/19/2012 BERRY BALDERRAMA DO K 627.2 MENOPAUSAL SX 02/19/2012 BERRY BALDERRAMA DO K V76.10 BREAST CANCER SCREENING 02/19/2012 BERRY BALDERRAMA DO V76.2 CERVICAL CANCER SCREENING (PAP SMEAR) 02/19/2012 HUMA LOZOYA MD 627.2 MENOPAUSAL SX 02/19/2012 HUMA LOZOYA MD V76.1 0 BREAST CANCER SCREENING 02/19/2012 HUMA LOZOYA MD V76.2 CERVICAL CANCER SCREENING (PAP SMEAR) 02/19/2012 HMUA LOZOYA MD 627.2 MENOPAUSAL SX 02/19/2012 HUMA LOZOYA MD V76.1 0 BREAST CANCER SCREENING 02/19/2012 HUMA LOZOYA MD V76.2 CERVICAL CANCER SCREENING (PAP SMEAR) 02/19/2012 ADDIS SPRINGER APRN 627.2 MENOPAUSAL SX 02/19/2012 ADDIS SPRINGER APRN V76.10 BREAST CANCER SCREENING 02/19/2012 ADDIS SPRINGER APRN V76.2 CERVICAL CANCER SCREENING (PAP SMEAR) 02/19/2012 HUMA LOZOYA MD 627.2 MENOPAUSAL SX 02/19/2012 HUMA LOZOYA MD V76.1 0 BREAST CANCER SCREENING 02/19/2012 HUMA LOZOYA MD V76.2 CERVICAL CANCER SCREENING (PAP SMEAR) 02/19/2012 HUMA LOZOYA MD 627.2 MENOPAUSAL SX 02/19/2012 HUMA LOZOYA MD V76.1 0 BREAST CANCER SCREENING 02/19/2012 HUMA LOZOYA MD V76.2 CERVICAL CANCER SCREENING (PAP SMEAR) 02/19/2012 HUMA LOZOYA MD 627.2 MENOPAUSAL SX 02/19/2012 HUMA LOZOYA MD V76.1 0 BREAST CANCER SCREENING 02/19/2012 HUMA LOZOYA MD V76.2 CERVICAL CANCER SCREENING (PAP SMEAR) 03/28/2012 HUMA LOZOYA MD 272.4 OTHER AND UNSPECIFIED HYPERLIPIDEMIA 03/28/2012 272.4 OTHE R AND UNSPECIFIED HYPERLIPIDEMIA 03/28/2012 HUMA LOZOYA MD 272.4 OTHER AND UNSPECIFIED HYPERLIPIDEMIA 03/28/2012 HUMA LOZOYA MD 272.4 OTHER AND UNSPECIFIED HYPERLIPIDEMIA 03/28/2012 HUMA LOZOYA MD 272.4 OTHER AND UNSPECIFIED HYPERLIPIDEMIA 03/28/2012 HUMA LOZOYA MD 272.4 OTHER AND UNSPECIFIED HYPERLIPIDEMIA 03/28/2012 HUMA LOZOYA MD 272.4 OTHER AND UNSPECIFIED HYPERLIPIDEMIA 03/28/2012 APRIL QUINTANILLA APRN A 27 2.4 OTHER AND UNSPECIFIED HYPERLIPIDEMIA 03/28/2012 JI QUINTANILLA APRNIDI A 27 2.4 OTHER AND UNSPECIFIED HYPERLIPIDEMIA 03/28/2012 BALDERRAMA DO, BERRY K 272.4 OTHER AND UNSPECIFIED HYPERLIPIDEMIA [...] ON STAIR/STEP NEC 09/29/2012 HUMA LOZOYA MD 728.8 5 SPASM OF MUSCLE 09/29/2012 HUMA LOZOYA MD 728.8 5 SPASM OF MUSCLE 09/29/2012 HUMA LOZOYA MD 728.8 5 SPASM OF MUSCLE 09/29/2012 HUMA LOZOYA MD 728.8 5 SPASM OF MUSCLE 09/29/2012 HUMA LOZOYA MD 728.8 5 SPASM OF MUSCLE 09/29/2012 APRIL QUINTANILLA APRN A 728.85 SPASM OF MUSCLE 09/29/2012 APRIL QUINTANILLA APRN A 728.85 SPASM OF MUSCLE 09/29/2012 BERRY BALDERRAMA DO K 728.85 SPASM OF MUSCLE 09/29/2012 BERRY BALDERRAMA DO K 728.85 SPASM OF MUSCLE 09/29/2012 HUMA LOZOYA MD 728.8 5 SPASM OF MUSCLE 09/29/2012 HUMA LOZOYA MD 728.8 5 SPASM OF MUSCLE 09/29/2012 ADDIS SPRINGER APRN A 728.85 SPASM OF MUSCLE 09/29/2012 HUMA LOZOYA MD 728.8 5 SPASM OF MUSCLE 09/29/2012 HUMA LOZOYA MD 728.8 5 SPASM OF MUSCLE 09/29/2012 HUMA LOZOYA MD.8 5 SPASM OF MUSCLE 12/19/2012 HUMA LOZOYA MD 719.4 1 PAIN IN JOINT INVOLVING SHOULDER REGION 12/19/2012 HUMA LOZOYA MD 719.4 1 PAIN IN JOINT INVOLVING SHOULDER REGION 12/19/2012 HUMA LOZOYA MD.4 1 PAIN IN JOINT INVOLVING SHOULDER REGION 12/19/2012 HUMA LOZOYA MD 719.4 1 PAIN IN JOINT INVOLVING SHOULDER REGION 12/19/2012 APRIL QUINTANILLA APRN A 719.41 PAIN IN JOINT INVOLVING SHOULDER REGION 12/19/2012 APRIL QUINTANILLA APRN A 719.41 PAIN IN JOINT INVOLVING SHOULDER REGION 12/19/2012 BERRY BALDERRAMA DO K 719.41 PAIN IN JOINT INVOLVING SHOULDER REGION 12/19/2012 BERRY BALDERRAMA DO K 719.41 PAIN IN JOINT INVOLVING SHOULDER REGION 12/19/2012 HUMA LOZOYA MD 719.4 1 PAIN IN JOINT INVOLVING SHOULDER REGION 12/19/2012 HUMA LOZOYA MD 719.4 1 PAIN IN JOINT INVOLVING SHOULDER REGION 12/19/2012 ADDIS SPRINGER APRN 719.41 PAIN IN JOINT INVOLVING SHOULDER REGION 12/19/2012 HUMA LOZOYA MD 719.4 1 PAIN IN JOINT INVOLVING SHOULDER REGION 12/19/2012 HUMA LOZOYA MD 719.4 1 PAIN IN JOINT INVOLVING SHOULDER REGION 12/19/2012 HUMA LOZOYA MD 719.4 1 PAIN IN JOINT INVOLVING SHOULDER REGION 01/18/2013 HUMA LOZOYA MD V58.6 9 MEDICATION HIGH RISK 01/18/2013 HUMA LOZOYA MD V58.6 9 MEDICATION HIGH RISK 01/18/2013 HUMA LOZOYA MD V58.6 9 MEDICATION HIGH RISK 01/18/2013 APRIL QUINTANILLA APRN A V58.69 MEDICATION HIGH RISK 01/18/2013 APRIL QUINTANILLA APRN A V58.69 MEDICATION HIGH RISK 01/18/2013 BERRY BALDERRAMA DO K V58.69 MEDICATION HIGH RISK 01/18/2013 BERRY BALDERRAMA DO K V58.69 MEDICATION HIGH RISK 01/18/2013 HUMA LOZOYA MD V58.6 9 MEDICATION HIGH RISK 01/18/2013 HUMA LOZOYA MD V58.6 9 MEDICATION HIGH RISK 01/18/2013 ADDIS SPRINGER APRN V58.69 MEDICATION HIGH RISK 01/18/2013 HUMA LOZOYA MD V58.6 9 MEDICATION HIGH RISK 01/18/2013 HUMA LOZOYA MD V58.6 9 MEDICATION HIGH RISK 01/18/2013 HUMA LOZOYA MD V58.6 9 MEDICATION HIGH RISK 02/15/2013 HUMA LOZOYA MD V76.1 1 SCREENING MAMMOGRAM FOR HIGH-RISK PATIENT 02/15/2013 HUMA LOZOYA MD V76.1 1 SCREENING MAMMOGRAM FOR HIGH-RISK PATIENT 02/15/2013 HUMA LOZOYA MD V76.1 1 SCREENING MAMMOGRAM FOR HIGH-RISK PATIENT 02/15/2013 APRIL QUINTANILLA APRN A V76.11 SCREENING MAMMOGRAM FOR HIGH-RISK PATIENT 02/15/2013 APRIL QUINTANILLA APRN A V76.11 SCREENING MAMMOGRAM FOR HIGH-RISK PATIENT 02/15/2013 BERRY BALDERRAMA DO V76.11 SCREENING MAMMOGRAM FOR HIGH-RISK PATIENT 02/15/2013 BALDERRAMA BERRY LEDESMA V76.11 SCREENING MAMMOGRAM FOR HIGH-RISK PATIENT 02/15/2013 HUMA LOZOYA MD V76.1 1 SCREENING MAMMOGRAM FOR HIGH-RISK PATIENT 02/15/2013 HUMA LOZOYA MD V76.1 1 SCREENING MAMMOGRAM FOR HIGH-RISK PATIENT 02/15/2013 ADDIS SPRINGER APRN V76.11 SCREENING MAMMOGRAM FOR HIGH-RISK PATIENT 02/15/2013 HUMA LOZOYA MD V76.1 1 SCREENING MAMMOGRAM FOR HIGH-RISK PATIENT 02/15/2013 HUMA LOZOYA MD V76.1 1 SCREENING MAMMOGRAM FOR HIGH-RISK PATIENT 02/15/2013 HUMA LOZOYA MD V76.1 1 SCREENING MAMMOGRAM FOR HIGH-RISK PATIENT 04/17/2013 APRIL QUINTANILLA APRN A V65.42 COUNSELING - SMOKING CESSATION 04/17/2013 APRIL QUINTANILLA APRN A V65.49 OTHER SPECIFIED COUNSELING 04/17/2013 APRIL QUINTANILLA APRN A V76.10 BREAST CANCER SCREENING 04/17/2013 APRIL QUINTANILLA APRN A V76.51 COLON CANCER SCREENING 04/17/2013 APRIL QUINTANILLA APRN V82.81 SPECIAL SCREENING FOR OSTEOPOROSIS 04/17/2013 APRIL QUINTANILLA APRN A V65.42 COUNSELING - SMOKING CESSATION 04/17/2013 APRIL QUINTANILLA APRN V65.49 OTHER SPECIFIED COUNSELING 04/17/2013 APRIL QUINTANILLA APRN A V76.10 BREAST CANCER SCREENING 04/17/2013 DWIGHT VESSEL ORDINARY SEAMAN, APRIL A V76.51 COLON CANCER SCREENING 04/17/2013 DWIGHT VESSEL ORDINARY SEAMAN APRIL A V82.81 SPECIAL SCREENING FOR OSTEOPOROSIS [...] SCREENING FOR OSTEOPOROSIS 04/17/2013 HUMA LOZOYA MD V65.4 2 COUNSELING - SMOKING CESSATION 04/17/2013 HUMA LOZOYA MD V65.4 9 OTHER SPECIFIED COUNSELING 04/17/2013 HUMA LOZOYA MD V76.1 0 BREAST CANCER SCREENING 04/17/2013 HUMA LOZOYA MD V76.5 1 COLON CANCER SCREENING 04/17/2013 HUMA LOZOYA MD V82.8 1 SPECIAL SCREENING FOR OSTEOPOROSIS 04/17/2013 HUMA LOZOYA MD V65.4 2 COUNSELING - SMOKING CESSATION 04/17/2013 HUMA LOZOYA MD V65.4 9 OTHER SPECIFIED COUNSELING 04/17/2013 HUMA LOZOYA MD V76.1 0 BREAST CANCER SCREENING 04/17/2013 HUMA LOZOYA MD V76.5 1 COLON CANCER SCREENING 04/17/2013 HUMA LOZOYA MD V82.8 1 SPECIAL SCREENING FOR OSTEOPOROSIS 04/17/2013 SPRINGER VESSEL ORDINARY SEAMAN ADDIS A V65.42 COUNSELING - SMOKING CESSATION 04/17/2013 SPRINGER VESSEL ORDINARY SEAMAN ADDIS A V65.49 OTHER SPECIFIED COUNSELING 04/17/2013 SPRINGER VESSEL ORDINARY SEAMAN, ADDIS A V76.10 BREAST CANCER SCREENING 04/17/2013 SPRINGER VESSEL ORDINARY SEAMAN ADDIS A V76.51 COLON CANCER SCREENING 04/17/2013 SPRINGER VESSEL ORDINARY SEAMAN, ADDIS A V82.81 SPECIAL SCREENING FOR OSTEOPOROSIS 04/17/2013 HUMA LOZOYA MD V65.4 2 COUNSELING - SMOKING CESSATION 04/17/2013 HUMA LOZOYA MD V65.4 9 OTHER SPECIFIED COUNSELING 04/17/2013 HUMA LOZOYA MD V76.1 0 BREAST CANCER SCREENING 04/17/2013 HUMA LOZOYA MD V76.5 1 COLON CANCER SCREENING 04/17/2013 HUMA LOZOYA MD V82.8 1 SPECIAL SCREENING FOR OSTEOPOROSIS 04/17/2013 HUMA LOZOYA MD V65.4 2 COUNSELING - SMOKING CESSATION 04/17/2013 HUMA LOZOYA MD V65.4 9 OTHER SPECIFIED COUNSELING 04/17/2013 HUMA LOZOYA MD V76.1 0 BREAST CANCER SCREENING 04/17/2013 HUMA LOZOYA MD V76.5 1 COLON CANCER SCREENING 04/17/2013 HUMA LOZOYA MD V82.8 1 SPECIAL SCREENING FOR OSTEOPOROSIS 04/17/2013 HUMA LOZOYA MD V65.4 2 COUNSELING - SMOKING CESSATION 04/17/2013 HUMA LOZOYA MD V65.4 9 OTHER SPECIFIED COUNSELING 04/17/2013 HUMA LOZOYA MD V76.1 0 BREAST CANCER SCREENING 04/17/2013 HUMA LOZOYA MD V76.5 1 COLON CANCER SCREENING 04/17/2013 HUMA LOZOYA MD V82.8 1 SPECIAL SCREENING FOR OSTEOPOROSIS 06/02/2013 BERRY BALDERRAMA DO 723.1 CERVICALGIA 06/02/2013 BERRY BALDERRAMA DO E880.9 ACCIDENTAL FALL ON OR FROM OTHER STAIRS OR STEPS 06/02/2013 BERRY BALDERRAMA DO 723.1 CERVICALGIA 06/02/2013 BERRY BALDERRAMA DO E880.9 ACCIDENTAL FALL ON OR FROM OTHER STAIRS OR STEPS 06/02/2013 HUMA LOZOYA MD 723.1 CERVICALGIA 06/02/2013 HUMA LOZOYA MD E880. 9 ACCIDENTAL FALL ON OR FROM OTHER STAIRS OR STEPS 06/02/2013 HUMA LOZOYA MD 723.1 CERVICALGIA 06/02/2013 HUMA LOZOYA MD E880. 9 ACCIDENTAL FALL ON OR FROM OTHER STAIRS OR STEPS 06/02/2013 ADDIS SPRINGER APRN 723.1 CERVICALGIA 06/02/2013 ADDIS SPRINGER APRN E880.9 ACCIDENTAL FALL ON OR FROM OTHER STAIRS OR STEPS 06/02/2013 HUMA LOZOYA MD 723.1 CERVICALGIA 06/02/2013 HUMA LOZOYA MD E880. 9 ACCIDENTAL FALL ON OR FROM OTHER STAIRS OR STEPS 06/02/2013 HUMA LOZOYA MD 723.1 CERVICALGIA 06/02/2013 HUMA LOZOYA MD E880. 9 ACCIDENTAL FALL ON OR FROM OTHER STAIRS OR STEPS 06/02/2013 HUMA LOZOYA MD 723.1 CERVICALGIA 06/02/2013 HUMA LOZOYA MD E880. 9 ACCIDENTAL FALL ON OR FROM OTHER STAIRS [...] Ot V03.82 PROPHYLACTIC VACC AGAINST STREPTOCOCCUS 10/03/2013 BERYR BALDERRAMA DO Ot V62.84 SUICIDAL IDEATION 10/03/2013 BERRY BALDERRAMA DO Ot V62.85 HOMICIDAL IDEATION 11/20/2013 DANICA LERNER MD Ot 305.00 ALCOHOL ABUSE-UNSPEC 11/20/2013 DANICA LERENR MD Ot 305 .1 TOBACCO USE DISORDER 11/20/2013 DANICA LERNER MD [...] (OR CURRENT) UNSPECIFIED 02/16/2014 HUMA LOZOYA MD V04.8 1 FLU SHOT 03/16/2014 Ot V76.12 03/16/2014 HUMA LOZOYA MD F Ot V76.12 03/16/2014 DWIGHTAPRIL Tanner VESSEL ORDINARY SEAMAN Ot 733.90 03/16/2014 DWIGHT APRIL A VESSEL ORDINARY SEAMAN Ot V65.42 03/16/2014 DWIGHT, APRIL A VESSEL ORDINARY SEAMAN Ot V65.49 03/16/2014 DWIGHT, APRIL A VESSEL ORDINARY SEAMAN Ot V76.12 03/16/2014 JI QUINTANILLAIDI A VESSEL ORDINARY SEAMAN Ot V76.51 03/16/2014 DWIGHT APRIL A VESSEL ORDINARY SEAMAN Ot V82.81 03/19/2014 HUMA LOZOYA MD V76.1 0 BREAST CANCER SCREENING 05/04/2015 FINESSE MOY MD Ot A41 .9 SEPSIS, UNSPECIFIED ORGANISM 05/04/2015 FINESSE MOY MD Ot F10.21 ALCOHOL DEPENDENCE, IN REMISSION 05/04/2015 FINESSE MOY MD Ot F12.90 CANNABIS USE, UNSPECIFIED, UNCOMPLICATED 05/04/2015 FINESSE MOY MD Ot F17.210 NICOTINE DEPENDENCE, CIGARETTES, UNCOMPL 05/04/2015 FINESSE MOY MD Ot F32 .9 MAJOR DEPRESSIVE DISORDER, SINGLE EPISOD 05/04/2015 FINESSE MOY MD, Ot F41 .9 ANXIETY DISORDER, UNSPECIFIED 05/04/2015 FINESSE MOY MD Ot G47.30 SLEEP APNEA, UNSPECIFIED 05/04/2015 FINESSE MOY MD Ot J18 .9 PNEUMONIA, UNSPECIFIED ORGANISM 05/04/2015 FINESSE MOY MD, Ot J44 .9 CHRONIC OBSTRUCTIVE PULMONARY DISEASE, U 05/04/2015 FINESSE MOY MD, Ot R41.82 ALTERED MENTAL STATUS, UNSPECIFIED 05/04/2015 CHINMAY PINEDO, FINESSE Trammell Ot Z91.14 PATIENT'S OTHER NONCOMPLIANCE WITH MEDIC 03/03/2016 LI LOPEZ VESSEL ORDINARY SEAMAN Ot J44 .9 CHRONIC OBSTRUCTIVE PULMONARY DISEASE, U 03/03/2016 LI LOPEZ APRN Ot S82.401A UNSP FRACTURE OF SHAFT OF RIGHT FIBULA, 03/03/2016 LI LOPEZ APRN Ot S99.911A UNSPECIFIED INJURY OF RIGHT ANKLE, INITI 03/03/2016 LI LOPEZ APRN Ot X58.XXXA EXPOSURE TO OTHER SPECIFIED FACTORS, INI 03/03/2016 LI LOPEZ APRN Ot Y92.[address] IN [facility] NON-INSTITUT (PRIVATE 03/03/2016 LI LOPEZ APRN Ot Y99 .8 OTHER EXTERNAL CAUSE STATUS 03/03/2016 LI LOPEZ APRN Ot Z79.82 ROD AND TUBE STRAIGHTENER (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 OF ASPIRIN 03/03/2016 LI LOPEZ APRN Ot Z79.899 OTHER ROD AND TUBE STRAIGHTENER (CURRENT) DRUG THERAPY 03/03/2016 Ot V76.12 OTH SCREEN MAMMO- MALIGN NEOPLASM OF ETIENNE 03/03/2016 HUMA LOZOYA MD Ot V76.12 OTH SCREEN MAMMO-MALIGN NEOPLASM OF ETIENNE 03/03/2016 APRIL QUINTANILLA VESSEL ORDINARY SEAMAN Ot 733.90 BONE CARTILAGE DIS NOS 03/03/2016 APRIL QUINTANILLA VESSEL ORDINARY SEAMAN Ot V65.42 COUNSELING ON SUBSTANCE USE AND ABUSE 03/03/2016 APRIL QUINTANILLA VESSEL ORDINARY SEAMAN Ot V65.49 OTHER SPECIFIED COUNSELING 03/03/2016 APRIL QUINTANILLA VESSEL ORDINARY SEAMAN Ot V76.12 OTH SCREEN MAMMO-MALIGN NEOPLASM OF ETIENNE 03/03/2016 ARPIL QUINTANILLA VESSEL ORDINARY SEAMAN Ot V76.51 SCREEN MAL NEOP-COLON 03/03/2016 APRIL QUINTANILLA VESSEL ORDINARY SEAMAN Ot V82.81 SCREENING FOR OSTEOPOROSIS 03/03/2016 Ot V76.12 OTH SCREEN MAMMO- MALIGN NEOPLASM OF ETIENNE 03/03/2016 HUMA LOZOYA MD Ot V76.12 OTH SCREEN MAMMO-MALIGN NEOPLASM OF ETIENNE 03/03/2016 APRIL QUINTANILLA A VESSEL ORDINARY SEAMAN Ot 733.90 BONE CARTILAGE DIS NOS 03/03/2016 APRIL QUINTANILLA Jp VESSEL ORDINARY SEAMAN Ot V65.42 COUNSELING ON SUBSTANCE USE AND ABUSE 03/03/2016 DWIGHTJIAPRIL A VESSEL ORDINARY SEAMAN Ot V65.49 OTHER SPECIFIED COUNSELING 03/03/2016 APRIL QUINTANILLA VESSEL ORDINARY SEAMAN Ot V76.12 OT SCREEN MAMMO-MALIGN NEOPLASM OF ETIENNE 03/03/2016 DWIGHTJIAPRIL A VESSEL ORDINARY SEAMAN Ot V76.51 SCREEN MAL NEOP-COLON 03/03/2016 DWIGHTJIAPRIL A VESSEL ORDINARY SEAMAN Ot V82.81 SCREENING FOR OSTEOPOROSIS 03/04/2016 LI LOPEZ APRN Ot J44 .9 CHRONIC OBSTRUCTIVE PULMONARY DISEASE, U 03/04/2016 LI LOPEZ APRN Ot S82.401A UNSP FRACTURE OF SHAFT OF RIGHT FIBULA, 03/04/2016 LI LOPEZ APRN Ot S99.911A UNSPECIFIED INJURY OF RIGHT ANKLE, INITI 03/04/2016 LI LOPEZ APRN Ot X58.XXXA EXPOSURE TO OTHER SPECIFIED FACTORS, INI 03/04/2016 LI LOPEZ APRN Ot Y92.[address] IN [facility] NON-INSTITUT (PRIVATE 03/04/2016 LI LOPEZ APRN Ot Y99 .8 OTHER EXTERNAL CAUSE STATUS 03/04/2016 LI LOPEZ APRN Ot Z79.82 ROD AND TUBE STRAIGHTENER (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 OF ASPIRIN 03/04/2016 LI LOPEZ APRN Ot Z79.899 OTHER ROD AND TUBE STRAIGHTENER (CURRENT) DRUG THERAPY 03/05/2016 LI LOPEZ APRN Ot J44 .9 CHRONIC OBSTRUCTIVE PULMONARY DISEASE, U 03/05/2016 LI LOPEZ APRN Ot S82.401A UNSP FRACTURE OF SHAFT OF RIGHT FIBULA, 03/05/2016 LI LOPEZ APRN Ot S99.911A UNSPECIFIED INJURY OF RIGHT ANKLE, INITI 03/05/2016 LI LOPEZ APRN Ot X58.XXXA EXPOSURE TO OTHER SPECIFIED FACTORS, INI 03/05/2016 LI LOPEZ APRN Ot Y92.[address] IN [facility] NON-INSTITUT (PRIVATE 03/05/2016 LI LOPEZ APRN Ot Y99 .8 OTHER EXTERNAL CAUSE STATUS 03/05/2016 LI LOPEZ APRN Ot Z79.82 PENITENTIARY (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 OF ASPIRIN 03/05/2016 LI LOPEZ APRN Ot Z79.899 OTHER ROD AND TUBE STRAIGHTENER (CURRENT) DRUG THERAPY 07/11/2016 MELISSA GARCIA Ot F10.129 ALCOHOL ABUSE WITH INTOXICATION, UNSPECI 07/11/2016 MELISSA GARCIA Ot F17.210 NICOTINE DEPENDENCE, CIGARETTES, UNCOMPL 07/11/2016 MELISSA GARCIA Ot J44.9 CHRONIC OBSTRUCTIVE PULMONARY DISEASE, U 07/11/2016 MELISSA GARCIA Ot Y90.6 BLOOD ALCOHOL LEVEL OF 120-199 MG/100 ML 07/11/2016 MELISSA GARCIA Ot Z79.82 PENITENTIARY (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 OF ASPIRIN 07/11/2016 MELISSA GARCIA Ot Z79.899 OTHER PENITENTIARY (CURRENT) DRUG THERAPY 04/06/2017 MALIA JOLLY MD Ot F10.129 ALCOHOL ABUSE WITH INTOXICATION, UNSPECI 04/06/2017 MALIA JOLLY MD Ot F12.10 CANNABIS ABUSE, UNCOMPLICATED 04/06/2017 MALIA [...] R 04/06/2017 MALIA JOLLY MD Ot Z79.82 PENITENTIARY (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 OF ASPIRIN 04/06/2017 MALIA JOLLY MD Ot Z80.8 FAMILY HISTORY OF MALIGNANT NEOPLASM OF 04/06/2017 BRUEGGEMANN MD, MALIA T Ot Z91.5 PERSONAL HISTORY OF SELF-HARM 04/06/2017 [...] FACTORS, INI 04/06/2017 MELISSA GARCIA Ot Z79.82 PENITENTIARY (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 OF ASPIRIN 04/06/2017 MELISSA GARCIA Ot Z80.8 FAMILY HISTORY OF MALIGNANT NEOPLASM OF 04/06/2017 MELISSA GARCIA Ot Z91.5 PERSONAL HISTORY OF SELF-HARM 04/08/2017 RIK PINEDO, MALIA Atkins Ot F10.129 ALCOHOL ABUSE WITH INTOXICATION, UNSPECI 04/08/2017 MALIA JOLLY MD Ot F12.10 CANNABIS ABUSE, UNCOMPLICATED 04/08/2017 MALIA JOLLY MD Ot F14.10 COCAINE ABUSE, UNCOMPLICATED 04/08/2017 MALIA JOLLY MD T Ot F17.210 NICOTINE DEPENDENCE, CIGARETTES, UNCOMPL 04/08/2017 [...] R 04/08/2017 MALIA JOLLY MD Ot Z79.82 PENITENTIARY (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 OF ASPIRIN 04/08/2017 MALIA JOLLY [...] FACTORS, INI 04/08/2017 MELISSA GARCIA Ot Z79.82 PENITENTIARY (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 OF ASPIRIN 04/08/2017 MELISSA GARCIA Ot Z80.8 FAMILY HISTORY OF MALIGNANT NEOPLASM OF 04/08/2017 MELISSA GARCIA Ot Z91.5 PERSONAL HISTORY OF SELF-HARM 05/11/2017 MELISSA GARCIA Ot R06.02 SHORTNESS OF BREATH 05/18/2017 MELISSA GARCIA Ot R06.02 SHORTNESS OF BREATH 05/18/2017 MELISSA GARCIA Ot R06.02 SHORTNESS OF BREATH 05/19/2017 Ot V76.12 OTH SCREEN MAMMO- MALIGN NEOPLASM OF ETIENNE 05/19/2017 DEOVRA PINEDO, HUMA Sparks Ot V76.12 OTH SCREEN MAMMO-MALIGN NEOPLASM OF ETIENNE 05/19/2017 DWIGHT, APRIL A VESSEL ORDINARY SEAMAN Ot 733.90 BONE CARTILAGE DIS NOS 05/19/2017 JI QUINTANILLAIDI A VESSEL ORDINARY SEAMAN Ot V65.42 COUNSELING ON SUBSTANCE USE AND ABUSE 05/19/2017 DWIGHTJIAPRIL A VESSEL ORDINARY SEAMAN Ot V65.49 OTHER SPECIFIED COUNSELING 05/19/2017 JI QUINTANILLAIDI A VESSEL ORDINARY SEAMAN Ot V76.12 OTH SCREEN MAMMO-MALIGN NEOPLASM OF ETIENNE 05/19/2017 DWIGHTJIAPRIL A VESSEL ORDINARY SEAMAN Ot V76.51 SCREEN MAL NEOP-COLON 05/19/2017 DWIGHTJIAPRIL A VESSEL ORDINARY SEAMAN Ot V82.81 SCREENING FOR OSTEOPOROSIS 05/19/2017 MELISSA GARCIA Ot R06.02 SHORTNESS OF BREATH 05/19/2017 Ot V76.12 OTH SCREEN MAMMO- MALIGN NEOPLASM OF ETIENNE 05/19/2017 HUMA LOZOYA MD Ot V76.12 OTH SCREEN MAMMO-MALIGN NEOPLASM OF ETIENNE 05/19/2017 DWIGHT, APRIL A VESSEL ORDINARY SEAMAN Ot 733.90 BONE CARTILAGE DIS NOS 05/19/2017 DWIGHTJIAPRIL A VESSEL ORDINARY SEAMAN Ot V65.42 COUNSELING ON SUBSTANCE USE AND ABUSE 05/19/2017 DWIGHTJIAPRIL A VESSEL ORDINARY SEAMAN Ot V65.49 OTHER SPECIFIED COUNSELING 05/19/2017 DWIGHTJIAPRIL A VESSEL ORDINARY SEAMAN Ot V76.12 OTH SCREEN MAMMO-MALIGN NEOPLASM OF ETIENNE 05/19/2017 DWIGHTJIAPRIL A VESSEL ORDINARY SEAMAN Ot V76.51 SCREEN MAL NEOP-COLON 05/19/2017 DWIGHTJIAPRIL A VESSEL ORDINARY SEAMAN Ot V82.81 SCREENING FOR OSTEOPOROSIS 05/19/2017 MELISSA GARCIA Ot R06.02 SHORTNESS OF BREATH 05/20/2017 Ot V76.12 OTH SCREEN MAMMO- MALIGN NEOPLASM OF ETIENNE 05/20/2017 HUMA LOZOYA MD Ot V76.12 OTH SCREEN MAMMO-MALIGN NEOPLASM OF ETIENNE 05/20/2017 DWIGHTJIAPRIL A VESSEL ORDINARY SEAMAN Ot 733.90 BONE CARTILAGE DIS NOS 05/20/2017 DWIGHTJIAPRIL A VESSEL ORDINARY SEAMAN Ot V65.42 COUNSELING ON SUBSTANCE USE AND ABUSE 05/20/2017 DWIGHT, APRIL A VESSEL ORDINARY SEAMAN Ot V65.49 OTHER SPECIFIED COUNSELING 05/20/2017 DWIGHT, APRIL A VESSEL ORDINARY SEAMAN Ot V76.12 OTH SCREEN MAMMO-MALIGN NEOPLASM OF ETIENNE 05/20/2017 JI QUINTANILLAGYPSY Trammell VESSEL ORDINARY SEAMAN Ot V76.51 SCREEN MAL NEOP-COLON 05/20/2017 DWIGHT APRIL Trammell APRN Ot V82.81 SCREENING FOR OSTEOPOROSIS 05/21/2017 ASHLYN PINEDO, HONEY Donaldson Ot M79.609 PAIN IN UNSPECIFIED LIMB 05/21/2017 ASHLYN PINEDO, HONEY Donaldson Ot R06.02 SHORTNESS OF BREATH 05/21/2017 ASHLYN PINEDO, HONEY Donaldson Ot W19.XXXA UNSPECIFIED FALL, INITIAL ENCOUNTER 05/21/2017 LI LOPEZ APRN Ot F10.20 ALCOHOL DEPENDENCE, UNCOMPLICATED 05/21/2017 LI LOPEZ APRN Ot F31 .9 BIPOLAR DISORDER, UNSPECIFIED 05/21/2017 LI LOPEZ APRN Ot F41 .9 ANXIETY DISORDER, UNSPECIFIED 05/21/2017 LI LOPEZ APRN Ot G47.30 SLEEP APNEA, UNSPECIFIED 05/21/2017 LI LOPEZ APRN Ot J44 .9 CHRONIC OBSTRUCTIVE PULMONARY DISEASE, U 05/21/2017 LI LOPEZ APRN Ot R06.02 SHORTNESS OF BREATH 05/21/2017 LI LOPEZ APRN Ot Z79.82 ROD AND TUBE STRAIGHTENER (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 OF ASPIRIN 05/21/2017 LI LOPEZ APRN Ot Z80 .8 FAMILY HISTORY OF MALIGNANT NEOPLASM OF 05/21/2017 LI LOPEZ APRN Ot Z87.448 PERSONAL HISTORY OF OTHER DISEASES OF UR 05/21/2017 LI LOPEZ APRN Ot Z91 .5 PERSONAL HISTORY OF SELF-HARM 05/24/2017 LI LOPEZ APRN Ot F10.20 ALCOHOL DEPENDENCE, UNCOMPLICATED 05/24/2017 LI LOPEZ APRN Ot F31 .9 BIPOLAR DISORDER, UNSPECIFIED 05/24/2017 LI LOPEZ APRN Ot F41 .9 ANXIETY DISORDER, UNSPECIFIED 05/24/2017 LI LOPEZ APRN Ot G47.30 SLEEP APNEA, UNSPECIFIED 05/24/2017 LI LOPEZ APRN Ot J44 .9 CHRONIC OBSTRUCTIVE PULMONARY DISEASE, U 05/24/2017 LI LOPEZ APRN Ot R06.02 SHORTNESS OF BREATH 05/24/2017 LI LOPEZ APRN Ot Z79.82 PENITENTIARY (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 OF ASPIRIN 05/24/2017 LI LOPEZ VESSEL ORDINARY SEAMAN Ot Z80 .8 FAMILY HISTORY OF MALIGNANT NEOPLASM OF 05/24/2017 LI LOPEZ VESSEL ORDINARY SEAMAN Ot Z87.448 PERSONAL HISTORY OF OTHER DISEASES OF UR 05/24/2017 LI LOPEZ APRN Ot Z91 .5 PERSONAL HISTORY OF SELF-HARM 05/29/2017 SHAHANA ROSENTHAL MOTOR REBUILDER Ot F10.129 ALCOHOL ABUSE WITH INTOXICATION, UNSPECI 05/29/2017 ARIADNA, SHAHANA MOTOR REBUILDER Ot F12.90 CANNABIS USE, UNSPECIFIED, UNCOMPLICATED 05/29/2017 ARIADNA, SHAHANA MOTOR REBUILDER Ot F31.9 BIPOLAR DISORDER, UNSPECIFIED 05/29/2017 ARIADNA, SHAHANA MOTOR REBUILDER Ot F41.9 ANXIETY DISORDER, UNSPECIFIED 05/29/2017 ARIADNA, SHAHANA MOTOR REBUILDER Ot G47.30 SLEEP APNEA, UNSPECIFIED 05/29/2017 ARIADNA, SHAHANA MOTOR REBUILDER Ot G47.9 SLEEP DISORDER, UNSPECIFIED 05/29/2017 ARIADNA, SHAHANA MOTOR REBUILDER Ot J44.9 CHRONIC OBSTRUCTIVE PULMONARY DISEASE, U 05/29/2017 ARIADNA, SHAHANA MOTOR REBUILDER Ot R06.02 SHORTNESS OF BREATH 05/29/2017 ARIADNA, SHAHANA MOTOR REBUILDER Ot Z77.22 CNTCT W AND EXPSR TO ENVIRON TOBACCO SMO 05/29/2017 ARIADNA SHAHANA MOTOR REBUILDER Ot Z79.82 PENITENTIARY (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 OF ASPIRIN 05/29/2017 ARIADNA SHAHANA MOTOR REBUILDER Ot Z87.81 PERSONAL HISTORY OF (HEALED) TRAUMATIC F 05/29/2017 ARIADNA SHAHANA MOTOR REBUILDER Ot Z91.5 PERSONAL HISTORY OF SELF-HARM 06/08/2017 [...] DISEASE, U 06/08/2017 MELISSA GARCIA Ot Z79.82 ROD AND TUBE STRAIGHTENER (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 OF ASPIRIN 06/08/2017 MELISSA GARCIA [...] DISEASE, U 06/10/2017 MELISSA GARCIA Ot Z79.82 ROD AND TUBE STRAIGHTENER (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 OF ASPIRIN 06/10/2017 MELISSA GARCIA Ot Z80.8 FAMILY HISTORY OF MALIGNANT NEOPLASM OF 06/10/2017 MELISSA GARCIA Ot Z91.5 PERSONAL HISTORY OF SELF-HARM 08/19/2017 LI LOPEZ APRN Ot F10.229 ALCOHOL DEPENDENCE WITH INTOXICATION, UN 08/19/2017 LI LOPEZ APRN Ot F12.10 CANNABIS ABUSE, UNCOMPLICATED 08/19/2017 LI LOPEZ APRN Ot F31 .9 BIPOLAR DISORDER, UNSPECIFIED 08/19/2017 LI LOPEZ APRN Ot F41 .9 ANXIETY DISORDER, UNSPECIFIED 08/19/2017 LI LOPEZ APRN Ot G47.30 SLEEP APNEA, UNSPECIFIED 08/19/2017 LI LOPEZ APRN Ot J44 .9 CHRONIC OBSTRUCTIVE PULMONARY DISEASE, U 08/19/2017 LI LOPEZ APRN Ot R06.02 SHORTNESS OF BREATH 08/19/2017 LI LOPEZ APRN Ot Z77.22 CNTCT W AND EXPSR TO ENVIRON TOBACCO SMO 08/19/2017 LI LOPEZ APRN Ot Z79.82 PENITENTIARY (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 OF ASPIRIN 08/19/2017 LI LOPEZ APRN Ot Z80 .8 FAMILY HISTORY OF MALIGNANT NEOPLASM OF 08/19/2017 LI LOPEZ APRN Ot Z91 .5 PERSONAL HISTORY OF SELF-HARM 08/23/2017 LI LOPEZ APRN Ot F10.229 ALCOHOL DEPENDENCE WITH INTOXICATION, UN 08/23/2017 LI LOPEZ APRN Ot F12.10 CANNABIS ABUSE, UNCOMPLICATED 08/23/2017 LI LOPEZ APRN Ot F31 .9 BIPOLAR DISORDER, UNSPECIFIED 08/23/2017 LI LOPEZ APRN Ot F41 .9 ANXIETY DISORDER, UNSPECIFIED 08/23/2017 LI LOPEZ APRN Ot G47.30 SLEEP APNEA, UNSPECIFIED 08/23/2017 LI LOPEZ APRN Ot J44 .9 CHRONIC OBSTRUCTIVE PULMONARY DISEASE, U 08/23/2017 LI LOPEZ APRN Ot R06.02 SHORTNESS OF BREATH 08/23/2017 LI LOPEZ APRN Ot Z77.22 CNTCT W AND EXPSR TO ENVIRON TOBACCO SMO 08/23/2017 LI LOPEZ APRN Ot Z79.82 ROD AND TUBE STRAIGHTENER (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 OF ASPIRIN 08/23/2017 LI LOPEZ APRN Ot Z80 .8 FAMILY HISTORY OF MALIGNANT NEOPLASM OF 08/23/2017 LI LOPEZ APRN Ot Z91 .5 PERSONAL HISTORY OF SELF-HARM 09/13/2017 Ot F10.129 AL COHOL ABUSE WITH INTOXICATION, UNSPECI 09/13/2017 Ot F10.229 AL COHOL DEPENDENCE WITH INTOXICATION, UN 09/13/2017 Ot F31.9 BIPO LAR DISORDER, UNSPECIFIED 09/13/2017 Ot F41.9 ANXI ETY DISORDER, UNSPECIFIED 09/13/2017 Ot G47.30 SLE EP APNEA, UNSPECIFIED 09/13/2017 Ot 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 VINITA OBSTRUCTIVE PULMONARY DISEASE, U 09/13/[address] W AND EXPSR TO ENVIRON TOBACCO SMO 09/13/2017 Ot Z79.82 PAOLA G TERM (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 OF ASPIRIN 09/13/2017 Ot Z80.8 FAMI LY HISTORY OF MALIGNANT NEOPLASM OF 09/13/2017 Ot Z87.448 PE RSONAL HISTORY OF OTHER DISEASES OF UR 09/13/2017 Ot Z91.5 PERS ONAL HISTORY OF SELF-HARM 10/03/2017 ALICIA YAP A 305.0 0 ALCOHOL ABUSE, UNSPECIFIED DRINKING BEHAVIOR 10/03/2017 ALICIA YAP W 305.1 TOBACCO USE DISORDER 10/03/2017 ALICIA YAP W 786.0 5 SHORTNESS OF BREATH 10/03/2017 ALICIA YAP A F10.1 20 ALCOHOL ABUSE WITH INTOXICATION, UNCOMPLICATED 10/03/2017 ALICIA YAP W R06.0 2 SHORTNESS OF BREATH 10/03/2017 ALICIA YAP W Y90.8 BLOOD ALCOHOL LEVEL OF 240 MG/100 ML OR MORE 10/03/2017 ALICIA YAP W Z72.0 TOBACCO USE 10/10/2017 JENIFER MULLINS Ot F10.20 ALCOHOL DEPENDENCE, UNCOMPLICATED 10/10/2017 MARINA MULLINSIS Ot F31.9 BIPOLAR DISORDER, UNSPECIFIED 10/10/2017 MARINA MULLINSIS Ot F41.9 ANXIETY DISORDER, UNSPECIFIED 10/10/2017 JENIFER MULLINS Ot G47.30 SLEEP APNEA, UNSPECIFIED 10/10/2017 JENIFER MULLINS Ot J44.9 CHRONIC OBSTRUCTIVE PULMONARY DISEASE, U 10/10/2017 JENIFER MULLINS Ot R06.02 SHORTNESS OF BREATH 10/10/2017 JENIFER MULLINS Ot Z77.22 CNTCT W AND EXPSR TO ENVIRON TOBACCO SMO 10/10/2017 MARINA MULLINSIS Ot Z79.82 ROD AND TUBE STRAIGHTENER (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 OF ASPIRIN 10/10/2017 MARINA MULLINSIS Ot Z80.8 FAMILY HISTORY OF MALIGNANT NEOPLASM OF 10/10/2017 JENIFER MULLINS Ot Z87.448 PERSONAL HISTORY OF OTHER DISEASES OF UR 10/10/2017 JENIFER MULLINS Ot Z91.5 PERSONAL HISTORY OF SELF-HARM 10/12/2017 JENIFER MULLINS Ot F10.20 ALCOHOL DEPENDENCE, UNCOMPLICATED 10/12/2017 JENIFER MULLINS Ot F31.9 BIPOLAR DISORDER, UNSPECIFIED 10/12/2017 MARINA MULLINSIS Ot F41.9 ANXIETY DISORDER, UNSPECIFIED 10/12/2017 JENIFER MULLINS Ot G47.30 SLEEP APNEA, UNSPECIFIED 10/12/2017 JENIFER MULLINS Ot J44.9 CHRONIC OBSTRUCTIVE PULMONARY DISEASE, U 10/12/2017 JENIFER MULLINS Ot R06.02 SHORTNESS OF BREATH 10/12/2017 JENIFER MULLINS Ot Z77.22 CNTCT W AND EXPSR TO ENVIRON TOBACCO SMO 10/12/2017 JENIFER MULLINS Ot Z79.82 PENITENTIARY (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 OF ASPIRIN 10/12/2017 JENIFER MULLINS [...] TOBACCO SMO 06/29/2018 JENIFER MULLINS Ot Z79.82 ROD AND TUBE STRAIGHTENER (CURRENT) USE OF ASPIRIN 06/29/2018 JENIFER MULLINS Ot Z80.8 FAMILY HISTORY OF MALIGNANT NEOPLASM OF 06/30/2018 LI LOPEZ APRN Ot F10.10 ALCOHOL ABUSE, UNCOMPLICATED 06/30/2018 LI LOPEZ APRN Ot F10.229 ALCOHOL DEPENDENCE WITH INTOXICATION, UN 06/30/2018 LI LOPEZ APRN Ot F31 .9 BIPOLAR DISORDER, UNSPECIFIED 06/30/2018 LI LOPEZ APRN Ot F41 .9 ANXIETY DISORDER, UNSPECIFIED 06/30/2018 LI LOPEZ APRN Ot G47.30 SLEEP APNEA, UNSPECIFIED 06/30/2018 LI LOPEZ APRN Ot J44 .9 CHRONIC OBSTRUCTIVE PULMONARY DISEASE, U 06/30/2018 LI LOPEZ APRN Ot Z77.22 CNTCT W AND EXPSR TO ENVIRON TOBACCO SMO 06/30/2018 LI LOPEZ APRN Ot Z79.82 ROD AND TUBE STRAIGHTENER (CURRENT) USE OF ASPIRIN 06/30/2018 LI LOPEZ APRN Ot Z80 .8 FAMILY HISTORY OF MALIGNANT NEOPLASM OF 06/30/2018 LI LOPEZ APRN Ot Z87.448 PERSONAL HISTORY OF OTHER DISEASES OF UR 06/30/2018 LI LOPEZ APRN Ot Z91 .5 PERSONAL HISTORY OF SELF-HARM 07/01/2018 JENIFER MULLINS [...] AND EXPSR TO ENVIRON TOBACCO SMO 07/01/2018 MARINA MULLINSIS Ot Z79.82 PENITENTIARY (CURRENT) USE OF ASPIRIN 07/01/2018 JENIFER MULLINS Ot Z80.8 FAMILY HISTORY OF MALIGNANT NEOPLASM OF 07/05/2018 JENIFER MULLINS Ot F31.9 BIPOLAR DISORDER, UNSPECIFIED 07/05/2018 JENIFER MULLINS Ot F41.9 ANXIETY DISORDER, UNSPECIFIED 07/05/2018 JENIFER MULLINS Ot J44.9 CHRONIC OBSTRUCTIVE PULMONARY DISEASE, U 07/05/2018 EJNIFER MULLINS Ot R40.2142 COMA SCALE, EYES OPEN, [...] TOBACCO SMO 07/05/2018 JENIFER MULLINS Ot Z79.82 PENITENTIARY (CURRENT) USE OF ASPIRIN 07/05/2018 JENIFER MULLINS Ot Z80.8 FAMILY HISTORY OF MALIGNANT NEOPLASM OF 07/06/2018 LI LOPEZ APRN Ot F10.10 ALCOHOL ABUSE, UNCOMPLICATED 07/06/2018 LI LOPEZ APRN Ot F10.229 ALCOHOL DEPENDENCE WITH INTOXICATION, UN 07/06/2018 LI LOPEZ APRN Ot F31 .9 BIPOLAR DISORDER, UNSPECIFIED 07/06/2018 LI LOPEZ APRN Ot F41 .9 ANXIETY DISORDER, UNSPECIFIED 07/06/2018 LI LOPEZ APRN Ot G47.30 SLEEP APNEA, UNSPECIFIED 07/06/2018 LI LOPEZ APRN Ot J44 .9 CHRONIC OBSTRUCTIVE PULMONARY DISEASE, U 07/06/2018 LI LOPEZ APRN Ot Z77.22 CNTCT W AND EXPSR TO ENVIRON TOBACCO SMO 07/06/2018 LI LOPEZ APRN Ot Z79.82 ROD AND TUBE STRAIGHTENER (CURRENT) USE OF ASPIRIN 07/06/2018 LI LOPEZ APRN Ot Z80 .8 FAMILY HISTORY OF MALIGNANT NEOPLASM OF 07/06/2018 LI LOPEZ APRN Ot Z87.448 PERSONAL HISTORY OF OTHER DISEASES OF UR 07/06/2018 LI LOPEZ APRN Ot Z91 .5 PERSONAL HISTORY OF SELF-HARM 07/12/2018 MIKE LEDESMA AMBER Benny Ot J98.9 RESPIRATORY DISORDER, UNSPECIFIED 07/13/2018 MARINA MULLINSIS Ot F10.229 ALCOHOL DEPENDENCE WITH INTOXICATION, UN 07/13/2018 JENIFER MULLINS Ot F31.9 BIPOLAR DISORDER, UNSPECIFIED 07/13/2018 MARINA MULLINSIS Ot F41.9 ANXIETY DISORDER, UNSPECIFIED 07/13/2018 MARINA MULLINSIS Ot G47.30 SLEEP APNEA, UNSPECIFIED 07/13/2018 JENIFER MULLINS Ot J44.9 CHRONIC OBSTRUCTIVE PULMONARY DISEASE, U 07/13/2018 MARINA MULLINSIS Ot M25.571 PAIN IN RIGHT ANKLE AND JOINTS OF RIGHT 07/13/2018 MARINA MULLINSIS Ot S82.61XA DISP FX OF LATERAL MALLEOLUS OF RIGHT FI 07/13/2018 JENIFER MULLINS Ot W10.1XXA FALL (ON)(FROM) SIDEWALK CURB, INITIAL E 07/13/2018 MARINA MULLINSIS Ot Y92.[address] OF OCCURRENCE OF T 07/13/2018 JENIFER MULLINS Ot Z77.22 CNTCT W AND EXPSR TO ENVIRON TOBACCO SMO 07/13/2018 MARINA MULLINSIS Ot Z79.82 PENITENTIARY (CURRENT) USE OF ASPIRIN 07/13/2018 MARINA MULLINSIS Ot Z80.8 FAMILY HISTORY OF MALIGNANT NEOPLASM OF 07/13/2018 JENIFER MULLINS Ot Z87.448 PERSONAL HISTORY OF OTHER DISEASES OF UR 07/13/2018 MARINA MULLINSIS Ot Z91.5 PERSONAL HISTORY OF SELF-HARM 07/18/2018 MARINA MULLINSIS Ot F10.229 ALCOHOL DEPENDENCE WITH INTOXICATION, UN 07/18/2018 MARINA MULLINSIS Ot F31.9 BIPOLAR DISORDER, UNSPECIFIED 07/18/2018 MARINA MULLINSIS Ot F41.9 ANXIETY DISORDER, UNSPECIFIED 07/18/2018 MARINA MULLINSIS Ot G47.30 SLEEP APNEA, UNSPECIFIED 07/18/2018 MARINA MULLINSIS Ot J44.9 CHRONIC OBSTRUCTIVE PULMONARY DISEASE, U 07/18/2018 JENIFER MULLINS Ot M25.571 PAIN IN RIGHT ANKLE AND JOINTS OF RIGHT 07/18/2018 MARINA MULLINSIS Ot S82.61XA DISP FX OF LATERAL MALLEOLUS OF RIGHT FI 07/18/2018 HARPREET JENIFER Ot W10.1XXA FALL (ON)(FROM) SIDEWALK CURB, INITIAL E 07/18/2018 MARINA MULLINSIS Ot Y92.[address] OF OCCURRENCE OF T 07/18/2018 HARPREET JENIFER Ot Z77.22 CNTCT W AND EXPSR TO ENVIRON TOBACCO SMO 07/18/2018 JENIFER MULLINS Ot Z79.82 PENITENTIARY (CURRENT) USE OF ASPIRIN 07/18/2018 JENIFER MULLINS Ot Z80.8 FAMILY HISTORY OF MALIGNANT NEOPLASM OF 07/18/2018 MARINA MULLINSIS Ot Z87.448 PERSONAL HISTORY OF OTHER DISEASES OF UR 07/18/2018 MARINA MULLINSIS Ot Z91.5 PERSONAL HISTORY OF SELF-HARM 08/02/2018 Johnnie Robert 305.00 ALCOHOL ABUSE, UNSPECIFIED DRINKING BEHAVIOR 08/02/2018 Johnnie Robert F10.120 ALCOHOL ABUSE WITH INTOXICATION, UNCOMPLICATED 08/02/2018 Johnnie Robert Y90.8 BLOOD ALCOHOL LEVEL OF 240 MG/100 ML OR MORE 09/13/2018 TANNA LOPEZ MD Ot F10. 20 ALCOHOL DEPENDENCE, UNCOMPLICATED 09/13/2018 JOHN PINEDO, TANNA Montes Ot F12. 10 CANNABIS ABUSE, UNCOMPLICATED 09/13/2018 TANNA LOPEZ MD Ot F17.210 NICOTINE DEPENDENCE, CIGARETTES, UNCOMPL 09/13/2018 JOHN PINEDO, TANNA Montes Ot F31. 9 BIPOLAR DISORDER, UNSPECIFIED 09/13/2018 TANNA LOPEZ MD Ot F41. 9 ANXIETY DISORDER, UNSPECIFIED 09/13/2018 TANNA LOPEZ MD Ot G47. 30 SLEEP APNEA, UNSPECIFIED 09/13/2018 TANNA LOPEZ MD Ot J44. 9 CHRONIC OBSTRUCTIVE PULMONARY DISEASE, U 09/13/2018 TANNA LOPEZ MD Ot R91. 1 SOLITARY PULMONARY NODULE 09/13/2018 TANNA LOPEZ MD Ot W18.39XA OTHER FALL ON SAME LEVEL, INITIAL ENCOUN 09/13/2018 TANNA LOPEZ MD Ot Z79. 82 PENITENTIARY (CURRENT) USE OF ASPIRIN 09/13/2018 TANNA LOPEZ MD Ot Z80. 8 FAMILY HISTORY OF MALIGNANT NEOPLASM OF 09/13/2018 TANNA LOPEZ MD Ot Z91. 5 PERSONAL HISTORY OF SELF-HARM 10/14/2018 LI LOPEZ APRN Ot F10.229 ALCOHOL DEPENDENCE WITH INTOXICATION, UN 10/14/2018 LI LOPEZ APRN Ot F31 .9 BIPOLAR DISORDER, UNSPECIFIED 10/14/2018 LI LOPEZ APRN Ot F41 .9 ANXIETY DISORDER, UNSPECIFIED 10/14/2018 LI LOPEZ APRN Ot G47.30 SLEEP APNEA, UNSPECIFIED 10/14/2018 LI LOPEZ APRN Ot J44 .9 CHRONIC OBSTRUCTIVE PULMONARY DISEASE, U 10/14/2018 LI LOPEZ APRN Ot Z77.22 CNTCT W AND EXPSR TO ENVIRON TOBACCO SMO 10/14/2018 LI LOPEZ APRN Ot Z79.82 PENITENTIARY (CURRENT) USE OF ASPIRIN 10/14/2018 LI LOPEZ APRN Ot Z80 .8 FAMILY HISTORY OF MALIGNANT NEOPLASM OF 10/18/2018 RIK PINEDO, MALIA Atkins Ot R69 ILLNESS, UNSPECIFIED 12/11/2018 ZHOU BECKFORD APRN W 305 .00 ALCOHOL ABUSE, UNSPECIFIED DRINKING BEHAVIOR 12/11/2018 ZHOU BECKFORD APRN F10.120 ALCOHOL ABUSE WITH INTOXICATION, UNCOMPLICATED 12/11/2018 ZHOU BECKFORD APRN R06 .02 SHORTNESS OF BREATH 12/11/2018 ZHOU BECKFORD APRN Y90 .8 BLOOD ALCOHOL LEVEL OF 240 MG/100 ML OR MORE 12/11/2018 ZHOU BECKFORD APRN Z72 .0 TOBACCO USE 01/02/2019 Johnnie Robert W 303.00 ACUTE ALCOHOLIC INTOXICATION IN ALCOHOLISM, UNSPECIFIED DRINKING BEHAVIOR 01/02/2019 Johnnie Robert F10.120 ALCOHOL ABUSE WITH INTOXICATION, UNCOMPLICATED 01/02/2019 Johnnie Robert F10.220 ALCOHOL DEPENDENCE WITH INTOXICATION, UNCOMPLICATED 01/02/2019 Johnnie Robert R06.02 SHORTNESS OF BREATH 01/02/2019 Johnnie Robert Y90.8 BLOOD ALCOHOL LEVEL OF 240 MG/100 ML OR MORE 01/02/2019 Jhonnie Robert Z72.0 TOBACCO USE 06/24/2019 ZHOU BECKFORD APRN 041 .81 MYCOPLASMA INFECTION IN CONDITIONS CLASSIFIED ELSEWHERE AND OF UNSPECIFIED SITE 06/24/2019 ZHOU BECKFORD APRN W 303 .00 ACUTE ALCOHOLIC INTOXICATION IN ALCOHOLISM, UNSPECIFIED DRINKING BEHAVIOR 06/24/2019 ZHOU BECKFORD APRN A49 .3 MYCOPLASMA INFECTION, UNSPECIFIED SITE 06/24/2019 ZHOU BECKFORD APRN W F10.120 ALCOHOL ABUSE WITH INTOXICATION, UNCOMPLICATED 06/24/2019 ZHOU BECKFORD APRN F10.220 ALCOHOL DEPENDENCE WITH INTOXICATION, UNCOMPLICATED 06/24/2019 ZHOU BECKFORD APRN R06 .02 SHORTNESS OF BREATH 06/24/2019 ZHOU BECKFORD APRN Y90 .8 BLOOD ALCOHOL LEVEL OF 240 MG/100 ML OR MORE 06/24/2019 ZHOU BECKFORD APRN Z72 .0 TOBACCO USE Procedures Code Description Performed By Per formed On Psych[facility], Mental Health 10/09/2011 19465 UA W / CULTURE IF INDICATED 02/19/2012 78440 ROUT INE VENIPUNCTURE 02/22/2012 29714 CBC 02/22/2012 17459 LIPI D PANEL 02/22/2012 83186 CMP 02/22/2012 [id number] GF R CALC (RESULT ONLY) 02/22/2012 07591 TSH 02/23/2012 36386 MAMM OGRAM, SCREENING 02/23/2012 60660 HEMOCCULT 02/23/2012 68785 PAP SMEAR 02/23/2012 Q0091 PAP SMEAR OBTAIN SMEAR 02/23/2012 06113 URIN E DRUG SCREEN (IN-HOUSE) 01/18/2013 30548 MAMM OGRAM, SCREENING 01/19/2013 URINEDRUG URINE DRUG SCREEN (CON'F) 01/19/2013 12050 BONE DENSITY, DEXA 04/17/2013 GENERAL S Kido, Ken 04/17/2013 17443 BONE MINERAL DENSITY, HEEL US (IN HOUSE) 04/17/2013 60976 XRAY CERVICAL SPINE, 2 OR 3 VIEWS 06/02/2013 41107 ROUT INE VENIPUNCTURE 02/16/2014 71490 MAMM OGRAM, SCREENING 02/16/2014 [id number] GF R CALC (RESULT ONLY) 02/16/2014 00879 CMP 02/16/2014 Results Test Result Range Complete blood count (CBC) with automate d white blood cell (WBC) differential - 07/11/16 16:13 Blood leukocytes automated count (number/volume) 18.1 10*3/uL 4.3-11.0 Blood erythrocytes automated count (number/volume) 4.07 10*6/uL 4.35-5.85 Venous blood hemoglobin measurement (mass/volume) 13.2 g/dL 11.5-16.0 Blood hematocrit (volume fraction) 39 % 35-52 Automated erythrocyte mean corpuscular volume 96 [ foz_us] 80-99 Automated erythrocyte mean corpuscular h emoglobin (mass per erythrocyte) 32 pg 25-34 Automated erythrocyte mean corpuscular h emoglobin concentration measurement (mass/volume) 34 g/dL 32-36 Automated erythrocyte distribution width ratio 13. 4 % 10.0- 14.5 Automated blood platelet count [...] 10*3 1.0-4.0 Blood monocytes automated count (number/volume) 1. 0 10*3 0.0-1.0 Automated eosinophil count 0.2 10*3/uL 0 .0-0.3 Automated blood basophil count (count/volume) 0.1 10*3/uL 0.0-0.1 PT panel in platelet poor plasma by coag ulation assay - 07/11/16 16:13 Prothrombin time (PT) in platelet poor plasma by coagu lation assay 13.2 s 12.2-14.7 INR in platelet poor plasma or blood by coagulation as say 1.0 0.8-1.4 Activated partial thromboplastin time (a PTT) in platelet poor plasma bycoagulation assay - 07/11/16 16:13 Activated partial thromboplastin time (a PTT) in platelet poor plasma bycoagulation assay 28 s 24-35 Blood manual differential performed dete ction - 07/11/16 16:13 Blood monocytes/100 leukocytes 2 % NRG Manual blood segmented neutrophils/100 leukocytes 63 % NRG Blood band neutrophils/100 leukocytes 0 % NRG Manual blood lymphocytes/100 leukocytes 34 % NRG Manual eosinophils/100 leukocytes in nose 1 % NRG Manual blood basophils/100 leukocytes 0 % NRG Blood erythrocyte morphology finding identification NORMAL NRG Comprehensive metabolic panel - 07/11/16 16:13 Serum or plasma sodium measurement (moles/volume) 141 mmol/L 135-145 Serum or plasma potassium measurement (moles/volume) 3.9 mmol/L 3.6-5.0 Serum or plasma chloride measurement (moles/volume) 107 mmol/L 98-107 Carbon dioxide 19 mmol/L 21-32 Serum or plasma anion gap determination (moles/volume) 15 mmol/L 5-14 Serum or plasma urea nitrogen measurement (mass/volume ) 13 mg/dL 7-18 Serum or plasma creatinine measurement (mass/volume) 0.69 mg/dL 0.60-1.30 Serum or plasma urea nitrogen/creatinine mass ratio 19 NRG Serum or plasma creatinine measurement w ith calculation of estimated glomerular filtration rate > NRG Serum or plasma glucose measurement (mass/volume) 62 mg/dL 70-105 Serum or plasma calcium measurement (mass/volume) 8.5 mg/dL 8.5-10.1 Serum or plasma total bilirubin measurement (mass/volu me) 0.3 mg/dL 0.1-1.0 Serum or plasma alkaline phosphatase omari surement (enzymatic activity/volume) 95 U/L 40-136 Serum or plasma aspartate aminotransfera se measurement (enzymatic activity/volume) 28 U/L 5-34 Serum [...] u[iU]/mL 0.35-4.94 Serum or plasma ethanol measurement (mas s/volume) - 07/11/16 16:13 Serum or plasma ethanol measurement (mass/volume) 199 mg/dL <10 Complete urinalysis with reflex to cultu re - 07/11/16 16:53 Urine color determination YELLOW NRG Urine clarity determination CLEAR NR G Urine pH measurement by test strip 6.5 5-9 Specific gravity of urine by test strip 1.005 1.016-1.022 Urine protein assay by test strip, semi-quantitative NEGATIVE NEGATIVE Urine glucose detection by automated test strip NE GATIVE NEGATIVE Erythrocytes detection in urine sediment by light micr oscopy NEGATIVE NEGATIVE Urine ketones detection by automated test strip NE GATIVE NEGATIVE Urine nitrite detection by test strip NEGATIVE NEGATIVE Urine total bilirubin detection by test strip NEGA TIVE NEGATIVE Urine urobilinogen measurement by automated test strip (mass/volume) NORMAL NORMAL Urine leukocyte esterase detection by dipstick NEG ATIVE NEGATIVE Automated urine sediment erythrocyte cou nt by microscopy (number/high power field) NONE NRG Automated urine sediment leukocyte count by microscopy (number/high power field) RARE NRG Bacteria detection in urine sediment by light microsco py NEGATIVE NRG Squamous epithelial cells detection in u rine sediment by light microscopy 0-2 NRG Crystals detection in urine sediment by light microsco py NONE NRG Casts detection in urine sediment by light microscopy NONE NRG Mucus detection in urine sediment by light microscopy NEGATIVE NRG Complete urinalysis with reflex to culture NO NRG Yeast detection in urine sediment by light microscopy FEW NRG Urine drug screening test - 07/11/16 16: 53 Urine phencyclidine detection by screening method NEGATIVE NEGATIVE Urine benzodiazepines detection by screening method NEGATIVE NEGATIVE Urine cocaine detection NEGATIVE NEGATI VE Urine amphetamines detection by screening method N EGATIVE NEGATIVE Urine methamphetamine detection by screening method NEGATIVE NEGATIVE Urine cannabinoids detection by screening method N EGATIVE NEGATIVE Urine opiates detection by screening method NEGATI VE NEGATIVE Urine barbiturates detection NEGATIVE N EGATIVE Screening urine tricyclic antidepressants detection NEGATIVE NEGATIVE Urine methadone detection by screening method NEGA TIVE NEGATIVE Urine oxycodone detection NEGATIVE NEGA TIVE Urine propoxyphene detection NEGATIVE N EGATIVE Complete blood count (CBC) with automate d white blood cell (WBC) differential - 04/06/17 12:20 Blood leukocytes automated count (number/volume) 13.4 10*3/uL 4.3-11.0 Blood erythrocytes automated count (number/volume) 4.49 10*6/uL 4.35-5.85 Venous blood hemoglobin measurement (mass/volume) 15.9 g/dL 11.5-16.0 Blood hematocrit (volume fraction) 44 % 35-52 Automated erythrocyte mean corpuscular volume 99 [ foz_us] 80-99 Automated erythrocyte mean corpuscular h emoglobin (mass per erythrocyte) 35 pg 25-34 Automated erythrocyte mean corpuscular h emoglobin concentration measurement (mass/volume) 36 g/dL 32-36 Automated erythrocyte distribution width ratio 12. 7 % 10.0- 14.5 Automated blood platelet count [...] 10*3 1.0-4.0 Blood monocytes automated count (number/volume) 1. 5 10*3 0.0-1.0 Automated eosinophil count 0.1 10*3/uL 0 .0-0.3 Automated blood basophil count (count/volume) 0.1 10*3/uL 0.0-0.1 Comprehensive metabolic panel - 04/06/17 12:20 Serum or plasma sodium measurement (moles/volume) 139 mmol/L 135-145 Serum or plasma potassium measurement (moles/volume) 3.7 mmol/L 3.6-5.0 Serum or plasma chloride measurement (moles/volume) 100 mmol/L 98-107 Carbon dioxide 24 mmol/L 21-32 Serum or plasma anion gap determination (moles/volume) 15 mmol/L 5-14 Serum or plasma urea nitrogen measurement (mass/volume ) 11 mg/dL 7-18 Serum or plasma creatinine measurement (mass/volume) 0.62 mg/dL 0.60-1.30 Serum or plasma urea nitrogen/creatinine mass ratio 18 NRG Serum or plasma creatinine measurement w ith calculation of estimated glomerular filtration rate > NRG Serum or plasma glucose measurement (mass/volume) 90 mg/dL 70-105 Serum or plasma calcium measurement (mass/volume) 10.2 mg/dL 8.5-10.1 Serum or plasma total bilirubin measurement (mass/volu me) 0.7 mg/dL 0.1-1.0 Serum or plasma alkaline phosphatase omari surement (enzymatic activity/volume) 74 U/L 40-136 Serum or plasma aspartate aminotransfera se measurement (enzymatic activity/volume) 38 U/L 5-34 Serum or plasma alanine aminotransferase measurement (enzymatic activity/volume) 33 U/L 0-55 Serum or plasma protein measurement (mass/volume) 8.5 g/dL 6.4-8.2 Serum or plasma albumin measurement (mass/volume) 5.3 g/dL 3.2-4.5 Serum or plasma ethanol measurement (mas s/volume) - 04/06/17 12:20 Serum or plasma ethanol measurement (mass/volume) 210 mg/dL <10 Urine drug screening test - 04/06/17 12: 40 Urine phencyclidine detection by screening method NEGATIVE NEGATIVE Urine benzodiazepines detection by screening method NEGATIVE NEGATIVE Urine cocaine detection NEGATIVE NEGATI VE Urine amphetamines detection by screening method N EGATIVE NEGATIVE Urine methamphetamine detection by screening method NEGATIVE NEGATIVE Urine cannabinoids detection by screening method N EGATIVE NEGATIVE Urine opiates detection by screening method NEGATI VE NEGATIVE Urine barbiturates detection NEGATIVE N EGATIVE Screening urine tricyclic antidepressants detection NEGATIVE NEGATIVE Urine methadone detection by screening method NEGA TIVE NEGATIVE Urine oxycodone detection NEGATIVE NEGA TIVE Urine propoxyphene detection NEGATIVE N EGATIVE Complete urinalysis with reflex to cultu re - 04/06/17 12:40 Urine color determination YELLOW NRG Urine clarity determination CLEAR NR G Urine pH measurement by test strip 5 5-9 Specific gravity of urine by test strip 1.010 1.016-1.022 Urine protein assay by test strip, semi-quantitative 2+ NEGATIVE Urine glucose detection by automated test strip NE GATIVE NEGATIVE Erythrocytes detection in urine sediment by light micr oscopy NEGATIVE NEGATIVE Urine ketones detection by automated test strip NE GATIVE NEGATIVE Urine nitrite detection by test strip NEGATIVE NEGATIVE Urine total bilirubin detection by test strip NEGA TIVE NEGATIVE Urine urobilinogen measurement by automated test strip (mass/volume) NORMAL NORMAL Urine leukocyte esterase detection by dipstick NEG ATIVE NEGATIVE Automated urine sediment erythrocyte cou nt by microscopy (number/high power field) NONE NRG Automated urine sediment leukocyte count by microscopy (number/high power field) NONE NRG Bacteria detection in urine sediment by light microsco py NEGATIVE NRG Squamous epithelial cells detection in u rine sediment by light microscopy 2-5 NRG Crystals detection in urine sediment by light microsco py NONE NRG Casts detection in urine sediment by light microscopy NONE NRG Mucus detection in urine sediment by light microscopy NEGATIVE NRG Complete urinalysis with reflex to culture NO NRG Complete blood count (CBC) with automate d white blood cell (WBC) differential - 05/21/17 21:15 Blood leukocytes automated count (number/volume) 12.5 10*3/uL 4.3-11.0 Blood erythrocytes automated count (number/volume) 4.32 10*6/uL 4.35-5.85 Venous blood hemoglobin measurement (mass/volume) 15.0 g/dL 11.5-16.0 Blood hematocrit (volume fraction) 43 % 35-52 Automated erythrocyte mean corpuscular volume 100 [foz_us] 80-99 Automated erythrocyte mean corpuscular h emoglobin (mass per erythrocyte) 35 pg 25-34 Automated erythrocyte mean corpuscular h emoglobin concentration measurement (mass/volume) 35 g/dL 32-36 Automated erythrocyte distribution width ratio 12. 5 % 10.0- 14.5 Automated blood platelet count [...] 10*3 1.0-4.0 Blood monocytes automated count (number/volume) 1. 3 10*3 0.0-1.0 Automated eosinophil count 0.1 10*3/uL 0 .0-0.3 Automated blood basophil count (count/volume) 0.1 10*3/uL 0.0-0.1 Comprehensive metabolic panel - 05/21/17 21:15 Serum or plasma sodium measurement (moles/volume) 136 mmol/L 135-145 Serum or plasma potassium measurement (moles/volume) 3.7 mmol/L 3.6-5.0 Serum or plasma chloride measurement (moles/volume) 99 mmol/L 98-107 Carbon dioxide 22 mmol/L 21-32 Serum or plasma anion gap determination (moles/volume) 15 mmol/L 5-14 Serum or plasma urea nitrogen measurement (mass/volume ) 16 mg/dL 7-18 Serum or plasma creatinine measurement (mass/volume) 0.72 mg/dL 0.60-1.30 Serum or plasma urea nitrogen/creatinine mass ratio 22 NRG Serum or plasma creatinine measurement w ith calculation of estimated glomerular filtration rate > NRG Serum or plasma glucose measurement (mass/volume) 80 mg/dL 70-105 Serum or plasma calcium measurement (mass/volume) 9.3 mg/dL 8.5-10.1 Serum or plasma total bilirubin measurement (mass/volu me) 0.4 mg/dL 0.1-1.0 Serum or plasma alkaline phosphatase omari surement (enzymatic activity/volume) 68 U/L 40-136 Serum or plasma aspartate aminotransfera se measurement (enzymatic activity/volume) 45 U/L 5-34 Serum or plasma alanine aminotransferase measurement (enzymatic activity/volume) 40 U/L 0-55 Serum or plasma protein measurement (mass/volume) 7.5 g/dL 6.4-8.2 Serum or plasma albumin measurement (mass/volume) 4.7 g/dL 3.2-4.5 Serum or plasma ethanol measurement (mas s/volume) - 05/21/17 21:15 Serum or plasma ethanol measurement (mass/volume) 251 mg/dL <10 Complete urinalysis with reflex to cultu re - 05/29/17 17:02 Urine color determination YELLOW NRG Urine clarity determination CLEAR NR G Urine pH measurement by test strip 6.5 5-9 Specific gravity of urine by test strip 1.010 1.016-1.022 Urine protein assay by test strip, semi-quantitative NEGATIVE NEGATIVE Urine glucose detection by automated test strip NE GATIVE NEGATIVE Erythrocytes detection in urine sediment by light micr oscopy NEGATIVE NEGATIVE Urine ketones detection by automated test strip NE GATIVE NEGATIVE Urine nitrite detection by test strip NEGATIVE NEGATIVE Urine total bilirubin detection by test strip NEGA TIVE NEGATIVE Urine urobilinogen measurement by automated test strip (mass/volume) NORMAL NORMAL Urine leukocyte esterase detection by dipstick NEG ATIVE NEGATIVE Automated urine sediment erythrocyte cou nt by microscopy (number/high power field) NONE NRG Automated urine sediment leukocyte count by microscopy (number/high power field) NONE NRG Bacteria detection in urine sediment by light microsco py NEGATIVE NRG Squamous epithelial cells detection in u rine sediment by light microscopy RARE NRG Crystals detection in urine sediment by light microsco py NONE NRG Casts detection in urine sediment by light microscopy NONE NRG Mucus detection in urine sediment by light microscopy NEGATIVE NRG Complete urinalysis with reflex to culture NO NRG Urine drug screening test - 05/29/17 17: 02 Urine phencyclidine detection by screening method NEGATIVE NEGATIVE Urine benzodiazepines detection by screening method NEGATIVE NEGATIVE Urine cocaine detection NEGATIVE NEGATI VE Urine amphetamines detection by screening method N EGATIVE NEGATIVE Urine methamphetamine detection by screening method NEGATIVE NEGATIVE Urine cannabinoids detection by screening method N EGATIVE NEGATIVE Urine opiates detection by screening method NEGATI VE NEGATIVE Urine barbiturates detection NEGATIVE N EGATIVE Screening urine tricyclic antidepressants detection NEGATIVE NEGATIVE Urine methadone detection by screening method NEGA TIVE NEGATIVE Urine oxycodone detection NEGATIVE NEGA TIVE Urine propoxyphene detection NEGATIVE N EGATIVE Complete blood count (CBC) with automate d white blood cell (WBC) differential - 08/19/17 18:29 Blood leukocytes automated count (number/volume) 11.3 10*3/uL 4.3-11.0 Blood erythrocytes automated count (number/volume) 3.89 10*6/uL 4.35-5.85 Venous blood hemoglobin measurement (mass/volume) 13.8 g/dL 11.5-16.0 Blood hematocrit (volume fraction) 39 % 35-52 Automated erythrocyte mean corpuscular volume 99 [ foz_us] 80-99 Automated erythrocyte mean corpuscular h emoglobin (mass per erythrocyte) 36 pg 25-34 Automated erythrocyte mean corpuscular h emoglobin concentration measurement (mass/volume) 36 g/dL 32-36 Automated erythrocyte distribution width ratio 12. 9 % 10.0- 14.5 Automated blood platelet count [...] 10*3 1.0-4.0 Blood monocytes automated count (number/volume) 1. 4 10*3 0.0-1.0 Automated eosinophil count 0.2 10*3/uL 0 .0-0.3 Automated blood basophil count (count/volume) 0.1 10*3/uL 0.0-0.1 Whole blood basic metabolic panel - 08/08 03/28 18:29 Serum or plasma sodium measurement (moles/volume) 137 mmol/L 135-145 Serum or plasma potassium measurement (moles/volume) 3.7 mmol/L 3.6-5.0 Serum or plasma chloride measurement (moles/volume) 103 mmol/L 98-107 Carbon dioxide 23 mmol/L 21-32 Serum or plasma anion gap determination (moles/volume) 11 mmol/L 5-14 Serum or plasma urea nitrogen measurement (mass/volume ) 12 mg/dL 7-18 Serum or plasma creatinine measurement (mass/volume) 0.60 mg/dL 0.60-1.30 Serum or plasma urea nitrogen/creatinine mass ratio 20 NRG Serum or plasma creatinine measurement w ith calculation of estimated glomerular filtration rate > NRG Serum or plasma glucose measurement (mass/volume) 80 mg/dL 70-105 Serum or plasma calcium measurement (mass/volume) 9.2 mg/dL 8.5-10.1 Serum or plasma ethanol measurement (mas s/volume) - 08/19/17 18:29 Serum or plasma ethanol measurement (mass/volume) 219 mg/dL <10 Complete urinalysis with reflex to cultu re - 08/19/17 18:44 Urine color determination YELLOW NRG Urine clarity determination CLEAR NR G Urine pH measurement by test strip 6 5-9 Specific gravity of urine by test strip 1.005 1.016-1.022 Urine protein assay by test strip, semi-quantitative NEGATIVE NEGATIVE Urine glucose detection by automated test strip NE GATIVE NEGATIVE Erythrocytes detection in urine sediment by light micr oscopy NEGATIVE NEGATIVE Urine ketones detection by automated test strip NE GATIVE NEGATIVE Urine nitrite detection by test strip NEGATIVE NEGATIVE Urine total bilirubin detection by test strip NEGA TIVE NEGATIVE Urine urobilinogen measurement by automated test strip (mass/volume) NORMAL NORMAL Urine leukocyte esterase detection by dipstick NEG ATIVE NEGATIVE Automated urine sediment erythrocyte cou nt by microscopy (number/high power field) NONE NRG Automated urine sediment leukocyte count by microscopy (number/high power field) NONE NRG Bacteria detection in urine sediment by light microsco py NONE NRG Squamous epithelial cells detection in u rine sediment by light microscopy RARE NRG Crystals detection in urine sediment by light microsco py NONE NRG Casts detection in urine sediment by light microscopy NONE NRG Mucus detection in urine sediment by light microscopy NEGATIVE NRG Complete urinalysis with reflex to culture NO NRG Urine drug screening test - 08/19/17 18: 44 Urine phencyclidine detection by screening method NEGATIVE NEGATIVE Urine benzodiazepines detection by screening method NEGATIVE NEGATIVE Urine cocaine detection NEGATIVE NEGATI VE Urine amphetamines detection by screening method N EGATIVE NEGATIVE Urine methamphetamine detection by screening method NEGATIVE NEGATIVE Urine cannabinoids detection by screening method P OSITIVE NEGATIVE Urine opiates detection by screening method NEGATI VE NEGATIVE Urine barbiturates detection NEGATIVE N EGATIVE Screening urine tricyclic antidepressants detection NEGATIVE NEGATIVE Urine methadone detection by screening method NEGA TIVE NEGATIVE Urine oxycodone detection NEGATIVE NEGA TIVE Urine propoxyphene detection NEGATIVE N EGATIVE Ethanol - 10/03/17 16:23 Ethanol 281 mg/dL 20-80 Complete urinalysis with reflex to cultu re - 10/10/17 12:20 Urine color determination YELLOW NRG Urine clarity determination CLEAR NR G Urine pH measurement by test strip 7 5-9 Specific gravity of urine by test strip 1.005 1.016-1.022 Urine protein assay by test strip, semi-quantitative NEGATIVE NEGATIVE Urine glucose detection by automated test strip NE GATIVE NEGATIVE Erythrocytes detection in urine sediment by light micr oscopy NEGATIVE NEGATIVE Urine ketones detection by automated test strip NE GATIVE NEGATIVE Urine nitrite detection by test strip NEGATIVE NEGATIVE Urine total bilirubin detection by test strip NEGA TIVE NEGATIVE Urine urobilinogen measurement by automated test strip (mass/volume) NORMAL NORMAL Urine leukocyte esterase detection by dipstick NEG ATIVE NEGATIVE Automated urine sediment erythrocyte cou nt by microscopy (number/high power field) NONE NRG Automated urine sediment leukocyte count by microscopy (number/high power field) NONE NRG Bacteria detection in urine sediment by light microsco py NEGATIVE NRG Crystals detection in urine sediment by light microsco py NONE NRG Casts detection in urine sediment by light microscopy NONE NRG Mucus detection in urine sediment by light microscopy NEGATIVE NRG Complete urinalysis with reflex to culture NO NRG Complete blood count (CBC) with automate d white blood cell (WBC) differential - 10/10/17 12:27 Blood leukocytes automated count (number/volume) 10.4 10*3/uL 4.3-11.0 Blood erythrocytes automated count (number/volume) 4.20 10*6/uL 4.35-5.85 Venous blood hemoglobin measurement (mass/volume) 14.6 g/dL 11.5-16.0 Blood hematocrit (volume fraction) 42 % 35-52 Automated erythrocyte mean corpuscular volume 100 [foz_us] 80-99 Automated erythrocyte mean corpuscular h emoglobin (mass per erythrocyte) 35 pg 25-34 Automated erythrocyte mean corpuscular h emoglobin concentration measurement (mass/volume) 35 g/dL 32-36 Automated erythrocyte distribution width ratio 12. 7 % 10.0- 14.5 Automated blood platelet count [...] 10*3 1.0-4.0 Blood monocytes automated count (number/volume) 1. 1 10*3 0.0-1.0 Automated eosinophil count 0.1 10*3/uL 0 .0-0.3 Automated blood basophil count (count/volume) 0.1 10*3/uL 0.0-0.1 Comprehensive metabolic panel - 10/10/17 12:27 Serum or plasma sodium measurement (moles/volume) 134 mmol/L 135-145 Serum or plasma potassium measurement (moles/volume) 3.7 mmol/L 3.6-5.0 Serum or plasma chloride measurement (moles/volume) 101 mmol/L 98-107 Carbon dioxide 23 mmol/L 21-32 Serum or plasma anion gap determination (moles/volume) 10 mmol/L 5-14 Serum or plasma urea nitrogen measurement (mass/volume ) 10 mg/dL 7-18 Serum or plasma creatinine measurement (mass/volume) 0.57 mg/dL 0.60-1.30 Serum or plasma urea nitrogen/creatinine mass ratio 18 NRG Serum or plasma creatinine measurement w ith calculation of estimated glomerular filtration rate > NRG Serum or plasma glucose measurement (mass/volume) 89 mg/dL 70-105 Serum or plasma calcium measurement (mass/volume) 9.0 mg/dL 8.5-10.1 Serum or plasma total bilirubin measurement (mass/volu me) 0.3 mg/dL 0.1-1.0 Serum or plasma alkaline phosphatase omari surement (enzymatic activity/volume) 77 U/L 40-136 Serum or plasma aspartate aminotransfera se measurement (enzymatic activity/volume) 20 U/L 5-34 Serum or plasma alanine aminotransferase measurement (enzymatic activity/volume) 13 U/L 0-55 Serum or plasma protein measurement (mass/volume) 7.2 g/dL 6.4-8.2 Serum or plasma albumin measurement (mass/volume) 4.6 g/dL 3.2-4.5 Serum or plasma ethanol measurement (mas s/volume) - 10/10/17 12:27 Serum or plasma ethanol [...] ng/mL 0.0-0.4 Gamma Glutamyl Transferase - 08/02/18 18 :53 GGT 80 U/L 5-40 Rapid Drug Screen + ETOH,Medical - 08/02 19:43 Amphetamine NEGATIVE NEGATIVE Barbiturates NEGATIVE NEGATIVE Benzodiazepines NEGATIVE NEGATIVE Cocaine NEGATIVE NEGATIVE Ethanol, Urine 281.60 mg/dL 20.00-80.00 Marijuana NEGATIVE NEGATIVE Methylenedioxymethamphetamine NEGATIVE NEGATIVE Opiates NEGATIVE NEGATIVE Oxycodone NEGATIVE NEGATIVE Phencyclidine NEGATIVE NEGATIVE Propoxyphene NEGATIVE NEGATIVE Tricyclic Antidepressant NEGATIVE NEGAT CARSON Complete blood count (CBC) with automate d white blood cell (WBC) differential - 09/09/18 19:07 Blood leukocytes automated count (number/volume) 13.1 10*3/uL 4.3-11.0 Blood erythrocytes automated count (number/volume) 4.36 10*6/uL 4.35-5.85 Venous blood hemoglobin measurement (mass/volume) 14.6 g/dL 11.5-16.0 Blood hematocrit (volume fraction) 43 % 35-52 Automated erythrocyte mean corpuscular volume 98 [ foz_us] 80-99 Automated erythrocyte mean corpuscular h emoglobin (mass per erythrocyte) 34 pg 25-34 Automated erythrocyte mean corpuscular h emoglobin concentration measurement (mass/volume) 34 g/dL 32-36 Automated erythrocyte distribution width ratio 12. 8 % 10.0- 14.5 Automated blood platelet count (count/volume) 89 1 0*3/uL 130-400 Automated blood platelet mean volume measurement 10.8 [foz_us] 7.4-10.4 Automated blood neutrophils/100 leukocytes 54 % 42-75 Automated blood lymphocytes/100 leukocytes 33 % 12-44 Blood monocytes/100 leukocytes 11 % 0-12 Automated blood eosinophils/100 leukocytes 2 % 0-10 Automated blood basophils/100 leukocytes 1 % 0-10 Blood neutrophils automated count (number/volume) 7.0 10*3 1.8-7.8 Blood lymphocytes automated count (number/volume) 4.4 10*3 1.0-4.0 Blood monocytes automated count (number/volume) 1. 4 10*3 0.0-1.0 Automated eosinophil count 0.2 10*3/uL 0 .0-0.3 Automated blood basophil count (count/volume) 0.1 10*3/uL 0.0-0.1 Comprehensive metabolic panel - 09/09/18 19:07 Serum or plasma sodium measurement (moles/volume) 137 mmol/L 135-145 Serum or plasma potassium measurement (moles/volume) 3.9 mmol/L 3.6-5.0 Serum or plasma chloride measurement (moles/volume) 101 mmol/L 98-107 Carbon dioxide 20 mmol/L 21-32 Serum or plasma anion gap determination (moles/volume) 16 mmol/L 5-14 Serum or plasma urea nitrogen measurement (mass/volume ) 11 mg/dL 7-18 Serum or plasma creatinine measurement (mass/volume) 0.61 mg/dL 0.60-1.30 Serum or plasma urea nitrogen/creatinine mass ratio 18 NRG Serum or plasma creatinine measurement w ith calculation of estimated glomerular filtration rate > NRG Serum or plasma glucose measurement (mass/volume) 83 mg/dL 70-105 Serum or plasma calcium measurement (mass/volume) 9.4 mg/dL 8.5-10.1 Serum or plasma total bilirubin measurement (mass/volu me) 0.2 mg/dL 0.1-1.0 Serum or plasma alkaline phosphatase omari surement (enzymatic activity/volume) 81 U/L 40-136 Serum or plasma aspartate aminotransfera se measurement (enzymatic activity/volume) 43 U/L 5-34 Serum or plasma alanine aminotransferase measurement (enzymatic activity/volume) 33 U/L 0-55 Serum or plasma protein measurement (mass/volume) 7.7 g/dL 6.4-8.2 Serum or plasma albumin measurement (mass/volume) 4.8 g/dL 3.2-4.5 Magnesium - 09/09/18 19:07 Magnesium 2.3 mg/dL 1.8-2.4 Serum or plasma ethanol measurement (mas s/volume) - 09/09/18 19:07 Serum or plasma ethanol measurement (mass/volume) 361 mg/dL <10 CMP - 12/15/18 11:45 GLUCOSE 66 mg/dL 65-139 UREA NITROGEN (BUN) 11 mg/dL 7-25 CREATININE 0.52 mg/dL 0.50-0.99 eGFR NON-AFR. MAURITANIAN 101 mL/min/1.73m2 > OR = 60 eGFR 117 mL/min/1.73m2 > OR = 60 BUN/CREATININE RATIO NOT APPLICABLE (calc) 6-22 SODIUM 138 mmol/L 135-146 POTASSIUM 4.5 mmol/L 3.5-5.3 CHLORIDE 102 mmol/L 98-110 CARBON DIOXIDE 27 mmol/L 20-32 CALCIUM 9.3 mg/dL 8.6-10.4 PROTEIN, TOTAL 7.3 g/dL 6.1-8.1 ALBUMIN 4.8 g/dL 3.6-5.1 GLOBULIN 2.5 g/dL (calc) 1.9-3.7 ALBUMIN/GLOBULIN RATIO 1.9 (calc) 1.0-2. 5 BILIRUBIN, TOTAL 0.3 mg/dL 0.2-1.2 ALKALINE PHOSPHATASE 91 U/L 33-130 AST 28 U/L 10-35 ALT 21 U/L 6-29 Rapid Drug Screen + ETOH,Medical - 06/23 16:39 Amphetamine NEGATIVE NEGATIVE Barbiturates NEGATIVE NEGATIVE Benzodiazepines NEGATIVE NEGATIVE Cocaine NEGATIVE NEGATIVE Ethanol, Urine 384.80 mg/dL 20.00-80.00 Marijuana NEGATIVE NEGATIVE Methylenedioxymethamphetamine NEGATIVE NEGATIVE Opiates NEGATIVE NEGATIVE Oxycodone NEGATIVE NEGATIVE Phencyclidine NEGATIVE NEGATIVE Propoxyphene NEGATIVE NEGATIVE Tricyclic Antidepressant NEGATIVE NEGAT CARSON Mycoplasma - 06/24/19 17:00 Mycoplasma Positive Negative Encounters ACCT No. Visit Date/Time Discharge Status Pt. Type Provider Facility Loc./Unit Complaint [id number] 06/24/2019 16:24:00 06/24/2019 18:30 :00 DIS Outpatient ZHOU BECKFORD APRN [facility] ER [id number] 01/02/2019 12:21:00 01/02/2019 14:20: 00 DIS Outpatient Howayek, [facility] ER [id number] 12/11/2018 14:55:00 12/11/2018 23:59: 59 CLS Outpatient SHAKEEL FAIRCHILDZHOU [facility] ER [id number] 08/02/2018 18:29:00 08/02/2018 20:30: 00 DIS Outpatient Jakob [facility] ER [id number] 10/03/2017 16:17:00 10/03/2017 19:00: 00 DIS Outpatient ALICIA YAP [place] [facility] ER [id number] 07/01/2019 15:45:11 Document Registration [id number] 08/02/2018 18:41:14 Document Registration [id number] 12/22/2018 15:48:00 17:20:00 DIS Emergency TANNA LOPEZ MD [facility] ER ETOH [id number] 12/16/2018 09:07:00 23:59:59 CLS Preadmit DEVORA PINEDO, HUMA Sparks [facility] RAD SCREENING [id number] 10/12/2018 13:23:00 13:30:00 DIS Outpatient RIK PINEDO, MALIA Atkins [facility] ER ILL [id number] 10/11/2018 15:18:00 15:32:00 DIS Outpatient LI LOPEZ APRN [facility] ER ETOH [id number] 09/09/2018 19:00:00 20:45:00 DIS Outpatient TANNA LOPEZ MD [facility] ER FALL [id number] 07/13/2018 17:16:00 19:38:00 DIS Emergency JENIFER MULLINS [facility] ER R ANKLE PAIN [id number] 06/30/2018 19:44:00 20:07:00 DIS Emergency LI LOPEZ APRN [facility] ER ETOH [id number] 06/30/2018 18:56:00 19:02:00 DIS Outpatient AMBER MCKEON DO [facility] ER RESPIRATORY ISSUES [id number] 06/29/2018 20:32:00 019 23:16:00 DIS Emergency JENIFER MULLINS [facility] ER FALL [id number] 10/12/2017 15:37:00 018 16:02:00 DIS Emergency HARPREET JENIFER [facility] ER ETOH [id number] 10/10/2017 12:17:00 018 14:11:00 DIS Emergency BERNMARINA VELAIS [facility] ER SOB/ETOH [id number] 08/19/2017 18:05:00 018 18:55:00 DIS Emergency LI LOPEZ APRN [facility] ER SOB/ETOH DETOX [id number] 06/08/2017 20:29:00 018 21:10:00 DIS Emergency MELISSA GARICA [facility] ER SOA [id number] 05/29/2017 16:55:00 018 18:10:00 DIS Emergency SHAHANA ROSENTHAL [employer] REBUIL[employer] [facility] ER SOA [id number] 05/21/2017 21:00:00 018 22:16:00 DIS Emergency LI LOPEZ APRN [facility] ER SOB [id number] 05/19/2017 17:05:00 018 17:31:00 DIS Outpatient HONEY GOLDBERG MD [facility] ER SOA [id number] 05/11/2017 21:12:00 018 21:57:00 DIS Emergency MELISSA GARCIA [facility] ER SOA [id number] 04/06/2017 18:38:00 018 20:05:00 DIS Emergency MELISSA GARCIA [facility] ER ANKLE PAIN [id number] 04/06/2017 12:39:00 018 15:08:00 DIS Emergency MALIA JOLLY MD [facility] ER DRUG/ETOH ABUSE [id number] 07/11/2016 16:09:00 017 19:12:00 DIS Emergency MELISSA GARCIA [facility] ER ALCOHOL INTOX [id number] 03/03/2016 15:38:00 017 16:45:00 DIS Emergency LI LOPEZ VESSEL ORDINARY SEAMAN [facility] ER R ANKLE PAIN [id number] 05/02/2015 16:39:00 016 13:14:00 DIS Inpatient CHINMAY PINEDO, FINESSE Trammell [facility] 4TH RLL PNUEMONIA [id number] 11/19/2013 22:15:00 014 10:50:00 DIS Inpatient YANN PINEDO, DANICA Tanner [facility] ICU ETOH INTOXICATION, AMS [id number] 10/02/2013 15:43:00 014 14:03:00 DIS Inpatient BERRY BALDERRAMA DO, V [facility] ICU SUICIDAL/HOMICIDAL IDEA TION, ETOH INTOXICATION [id number] 04/27/2013 09:25:00 014 23:59:59 CLS Outpatient APRIL QUINTANILLA APRN [facility] RAD OSTEOPENIA [id number] 03/06/2013 10:54:00 014 23:59:59 CLS Outpatient DEVORA PINEDO, HUMA Sparks [facility] RAD SCREENING [id number] 11/14/2012 15:16:00 23:59:59 CLS Outpatient [id number] 09/19/2012 13:31:00 23:59:59 CLS Outpatient [id number] 08/22/2012 15:17:00 23:59:59 CLS Outpatient [id number] 08/04/2012 14:36:00 23:59:59 CLS Outpatient [id number] 07/20/2012 12:07:00 013 13:45:00 DIS Emergency FRANCISCO ACEVEDO DO [facility] TEMITOPE MIRELES L ARM [id number] 09/13/2017 11:13:00 Document Registration [id number] 03/16/2014 10:56:00 Document Registration [id number] 03/04/2012 10:23:00 Document Registration [id number] 01/13/2013 16:48:57 ACT Document Registration [id number] 02/16/2014 11:31:00 02/16/2014 23:59: 59 CLS Outpatient HUMA LOZOYA MD [id number] 12/02/2013 06:43:00 12/02/2013 23:59: 59 CLS Outpatient HUMA LOZOYA MD [id number] 11/27/2013 11:19:00 11/27/2013 23:59: 59 CLS Outpatient HUMA LOZOYA MD [id number] 10/30/2013 12:59:00 10/30/2013 23:59: 59 CLS Outpatient ADDIS SPRINGER APRN [id number] 09/18/2013 13:40:00 09/18/2013 23:59: 59 CLS Outpatient HUMA LOZOYA MD [id number] 07/25/2013 16:53:00 07/25/2013 23:59: 59 CLS Outpatient HUMA LOZOYA MD [id number] 06/02/2013 11:36:00 06/02/2013 23:59: 59 CLS Outpatient BERRY BALDERRAMA DO [id number] 06/02/2013 11:36:00 06/02/2013 23:59: 59 CLS Outpatient BERRY BALDERRAMA DO [id number] 04/17/2013 10:34:00 04/17/2013 23:59: 59 CLS Outpatient APRIL QUINTANLILA APRN [id number] 04/17/2013 10:34:00 04/17/2013 23:59: 59 CLS Outpatient APRIL QUINTANILLA APRN [id number] 03/02/2013 13:45:00 03/02/2013 23:59: 59 CLS Outpatient HUMA LOZOYA MD [id number] 03/02/2013 13:45:00 03/02/2013 23:59: 59 CLS Outpatient HUMA LOZOYA MD [id number] 01/18/2013 14:08:00 01/18/2013 23:59: 59 CLS Outpatient HUMA LOZOYA MD [id number] 12/19/2012 11:31:00 12/19/2012 23:59: 59 CLS Outpatient HUMA LOZOYA MD [id number] 09/29/2012 16:24:00 09/29/2012 23:59: 59 CLS Outpatient HUMA LOZOYA MD [id number] 03/28/2012 11:42:00 03/28/2012 23:59: 59 CLS Outpatient HUMA LOZOYA MD [id number] 02/22/2012 09:43:00 02/22/2012 23:59: 59 CLS Outpatient BERRY BALDERRAMA DO [id number] 02/19/2012 13:27:00 02/19/2012 23:59: 59 CLS Outpatient BERRY BALDERRAMA DO [id number] 10/02/2011 09:36:00 10/02/2011 23:59: 59 [place] [id number] 10/02/2011 09:36:00 10/02/2011 23:59:5 9 CLS Outpatient [id number] 06/24/2012 13:29:00 Document Registration [id number] 09/05/2018 14:00:00 09/05/2018 23:59: 59 CLS Outpatient HUMA LOZOYA MD [facility] [id number] 12/15/2018 10:40:00 Document Registration
== END 2019-07-02 15:50 | disposition home or self-care (01) ==
LOC: EDUNIT# 15:31 → ER 15:32
DX: F10.20 Alcohol dependence, uncomplicated (principal); F41.9 Anxiety disorder, unspecified; F31.9 Bipolar disorder, unspecified; Z79.82 Long term (current) use of aspirin; Z77.22 Contact with and (suspected) exposure to environmental tobacco smoke (acute) (chronic); Z80.8 Family history of malignant neoplasm of other organs or systems
CPT/HCPCS: 99281

== ENCOUNTER 2019-07-03 14:10 | Emergency (ER) | payer MEDICARE, MEDICAID ==
[~2019-07-03] VITALS: Ht 162.6 cm; Wt 49.9 kg
[2019-07-03 14:14] VITALS: BP 121/77
--- NOTE | 2019-07-03 14:16 | ED Psychosocial ---
General Chief Complaint: Substance Abuse Stated Complaint: INTOXICATED Source: patient, EMS Exam Limitations: no limitations History of Present Illness Date Seen by Provider: July 03, 2019 Time Seen by Provider: 14:15 Initial Comments ER by EMS from home with reports of alcohol intoxication and she was lonely and wanted out of the house. She has no complaints on arrival and would now like to go home. Timing/Duration: constant Severity: moderate Associated Symptoms: denies symptoms Allergies and Home Medications Allergies Coded Allergies: No Known Drug Allergies (Unverified , 07/20/12) Home Medications Aspirin 81 Mg Tablet.dr, 81 MG PO DAILY, (Reported) Buspirone HCl 10 Mg Tablet, 10 MG PO BID, (Reported) Cefpodoxime Proxetil 200 Mg Tablet, 200 MG PO BID Prescribed by: FINESSE DESAI on 05/04/15 1211 Diclofenac Sodium 75 Mg Tablet.dr, 75 MG PO BID, (Reported) Furosemide 40 Mg Tablet, 40 MG PO DAILY, (Reported) Gabapentin 300 Mg Capsule, 300 MG PO TID, (Reported) Hydrocodone/Acetaminophen 1 Each Tablet, 1 EACH PO Q4H PRN for PAIN Prescribed by: LI LOPEZ on 03/03/16 1620 Levomilnacipran Hydrochloride 80 Mg Cap.sa.24h, 80 MG PO DAILY, (Reported) Loratadine 10 Mg Tablet, 10 MG PO DAILY, (Reported) Lorazepam 0.5 Mg Tablet, 0.5 MG PO DAILY PRN for ANXIETY, (Reported) Multivitamin 1 Each Tablet, 1 TAB PO DAILY, (Reported) Potassium Chloride 20 Meq Tab.er.prt, 20 MEQ PO DAILY, (Reported) Quetiapine Fumarate 100 Mg Tablet, 100 MG PO HS, (Reported) Tizanidine HCl 4 Mg Tablet, 4 MG PO TID PRN for MUSCLE SPASMS, (Reported) Patient Home Medication List Home Medication List Reviewed: Yes Review of Systems Constitutional: see HPI EENTM: see HPI Respiratory: no symptoms reported Cardiovascular: no symptoms reported Genitourinary: no symptoms reported Musculoskeletal: no symptoms reported Skin: no symptoms reported Psychiatric/Neurological: No Symptoms Reported Past Biqfwcf-Yxtesz-Nrrgaz Hx Patient Social History Alcohol Beverage of Choice: Beer, Whiskey, Kay Drug of Choice: CANNIBUS Type Used: Cigarettes 2nd Hand Smoke Exposure: Yes Recent Hopitalizations: No Immunizations Up To Date Tetanus Booster (TDap): Unknown PED Vaccines UTD: No Seasonal Allergies Seasonal Allergies: No Past Medical History Surgeries: Yes (CYST ON OVARY) Respiratory: Yes Sleep Apnea, COPD Currently Using CPAP: No Currently Using BIPAP: No Cardiac: No Neurological: Yes Reproductive Disorders: No Female Reproductive Disorders: Denies Sexually Transmitted Disease: No HIV/AIDS: No Genitourinary: No Gastrointestinal: No Musculoskeletal: Yes (ANKLE FRACTURE) Arthritis, Chronic Back Pain Endocrine: No HEENT: No Cancer: No Psychosocial: Yes (alcoholism) Sleep Difficulties, Anxiety, Suicide Attempts, Bipolar, Depression Integumentary: No Blood Disorders: No Family Medical History Alcoholism 19 FATHER G8 BROTHER G8 BROTHER G8 BROTHER G8 SISTER G8 SISTER FH: brain cancer G8 SISTER Neoplasm 19 MOTHER No Pertinent Family Hx Physical Exam Capillary Refill : Height, Weight, BMI Height: 5'3.00" Weight: 115lbs. 8.0oz. 52.456621pd; 23.00 BMI Method:Estimated General Appearance: WD/WN, no apparent distress HEENT: PERRL/EOMI, normal ENT inspection Respiratory: normal breath sounds, no respiratory distress, no accessory muscle use Cardiovascular: regular rate, rhythm, no murmur Gastrointestinal: normal bowel sounds, non tender, soft Neurologic/Psychiatric: alert, normal mood/affect, oriented x 3 Appearance/Memory: appropriate appearance, appropriate insight, neat Thoughts/Hallucinations: normal thought pattern, no apparent hallucination Skin: normal color, warm/dry Departure Impression Primary Impression: Alcohol abuse Disposition: 01 HOME, SELF-CARE Condition: Stable Departure-Patient Inst. Decision time for Depature: 14:17 Referrals: HUMA LOZOYA MD (PCP/Family) Primary Care Physician Patient Instructions: ALCOHOL AND SUBSTANCE ABUSE LI LOPEZ APRN July 03, 2019 14:16
== END 2019-07-03 14:21 | disposition home or self-care (01) ==
LOC: EDUNIT# 14:10 → ER 14:12
DX: F10.229 Alcohol dependence with intoxication, unspecified (principal); M54.9 Dorsalgia, unspecified; G89.29 Other chronic pain; F41.9 Anxiety disorder, unspecified; F31.9 Bipolar disorder, unspecified; Z79.82 Long term (current) use of aspirin; Z77.22 Contact with and (suspected) exposure to environmental tobacco smoke (acute) (chronic); Z80.8 Family history of malignant neoplasm of other organs or systems
CPT/HCPCS: 99283

== ENCOUNTER 2019-07-14 17:48 | Emergency (ER) | payer MEDICARE, MEDICAID ==
[~2019-07-14] VITALS: Ht 157 cm; Wt 45.0 kg
[2019-07-14] MEDS ORDERED: NS IV 1000 ML 1,000 ML IV SCH (18:00)
--- NOTE | 2019-07-14 18:01 | ED Psychosocial ---
General Chief Complaint: Substance Abuse Stated Complaint: PSYCH EVAL Source: patient, EMS Exam Limitations: no limitations History of Present Illness Date Seen by Provider: Jul 14, 2019 Time Seen by Provider: 17:59 Initial Comments To ER for EMS from home with reports of "I have a problem, I'm an alcoholic". Severity: moderate Associated Symptoms: denies symptoms Allergies and Home Medications Allergies Coded Allergies: No Known Drug Allergies (Unverified , 07/20/12) Home Medications Aspirin 81 Mg Tablet.dr, 81 MG PO DAILY, (Reported) Buspirone HCl 10 Mg Tablet, 10 MG PO BID, (Reported) Cefpodoxime Proxetil 200 Mg Tablet, 200 MG PO BID Prescribed by: FINESSE DESAI on 05/04/15 1211 Diclofenac Sodium 75 Mg Tablet.dr, 75 MG PO BID, (Reported) Furosemide 40 Mg Tablet, 40 MG PO DAILY, (Reported) Gabapentin 300 Mg Capsule, 300 MG PO TID, (Reported) Hydrocodone/Acetaminophen 1 Each Tablet, 1 EACH PO Q4H PRN for PAIN Prescribed by: LI LOPEZ on 03/03/16 1620 Levomilnacipran Hydrochloride 80 Mg Cap.sa.24h, 80 MG PO DAILY, (Reported) Loratadine 10 Mg Tablet, 10 MG PO DAILY, (Reported) Lorazepam 0.5 Mg Tablet, 0.5 MG PO DAILY PRN for ANXIETY, (Reported) Multivitamin 1 Each Tablet, 1 TAB PO DAILY, (Reported) Potassium Chloride 20 Meq Tab.er.prt, 20 MEQ PO DAILY, (Reported) Quetiapine Fumarate 100 Mg Tablet, 100 MG PO HS, (Reported) Tizanidine HCl 4 Mg Tablet, 4 MG PO TID PRN for MUSCLE SPASMS, (Reported) Patient Home Medication List Home Medication List Reviewed: Yes Review of Systems Constitutional: see HPI EENTM: see HPI Respiratory: no symptoms reported Cardiovascular: no symptoms reported Genitourinary: no symptoms reported Musculoskeletal: no symptoms reported Skin: no symptoms reported Psychiatric/Neurological: No Symptoms Reported Past Rqtecje-Hzluxa-Hjfova Hx Patient Social History Alcohol Use: Regular Use Number of Drinks Today: 8 Alcohol Beverage of Choice: Beer, Whiskey, [place] Recreational Drug Use: Yes Drug of Choice: CANNIBUS Type Used: Cigarettes 2nd Hand Smoke Exposure: Yes Recent Foreign Travel: No Contact w/Someone Who Travel: No Recent Hopitalizations: No Physical Abuse: No Sexual Abuse: No Mistreated: No Fear: No Immunizations Up To Date Tetanus Booster (TDap): Unknown PED Vaccines UTD: No Seasonal Allergies Seasonal Allergies: No Past Medical History Surgeries: Yes (CYST ON OVARY) Respiratory: Yes Sleep Apnea, COPD Currently Using CPAP: No Currently Using BIPAP: No Cardiac: No Neurological: Yes Reproductive Disorders: No Female Reproductive Disorders: Denies Sexually Transmitted Disease: No HIV/AIDS: No Genitourinary: No Gastrointestinal: No Musculoskeletal: Yes (ANKLE FRACTURE) Arthritis, Chronic Back Pain Endocrine: No HEENT: No Cancer: No Psychosocial: Yes (alcoholism) Sleep Difficulties, Anxiety, Suicide Attempts, Bipolar, Depression Integumentary: No Blood Disorders: No Family Medical History Alcoholism 19 FATHER G8 BROTHER G8 BROTHER G8 BROTHER G8 SISTER G8 SISTER FH: brain cancer G8 SISTER Neoplasm 19 MOTHER No Pertinent Family Hx Physical Exam Capillary Refill : Height, Weight, BMI Height: 5'3.00" Weight: 115lbs. 8.0oz. [id number]; 18.00 BMI Method:Estimated General Appearance: WD/WN, no apparent distress, other (alert, oriented, states she plans to go home and drink with her neighbor Tramaine payne. She is ambulatory with standby assistance) HEENT: PERRL/EOMI, normal ENT inspection Respiratory: no respiratory distress, no accessory muscle use Gastrointestinal: normal bowel sounds, soft Neurologic/Psychiatric: alert, normal mood/affect Appearance/Memory: appropriate insight, disheveled Behavior/Eye Contact: cooperative, good eye contact Skin: normal color, warm/dry Progress/Results/Core Measures Results/Orders My Orders Orders - LI LOPEZ APRN Cbc With Automated Diff (07/14/19 17:58) Comprehensive Metabolic Panel (07/14/19 17:58) Protime With Inr (07/14/19 17:58) Ua Culture If Indicated (07/14/19 17:58) Ed Iv/Invasive Line Start (07/14/19 17:58) Ns Iv 1000 Ml (Sodium Chloride 0.9%) (07/14/19 18:00) Departure Impression Primary Impression: Alcohol abuse Disposition: 07 AGAINST MEDICAL ADVICE Condition: Against Medical Advice Departure-Patient Inst. 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
[2019-07-14 18:05] LABS: BASOPHILS # (AUTO) 0.1 10^3/uL (0.0-0.1); BASOPHILS % (AUTO) 1 % (0-10); EOSINOPHILS # (AUTO) 0.1 10^3/uL (0.0-0.3); EOSINOPHILS % (AUTO) 1 % (0-10); HEMATOCRIT 44 % (35-52); HEMOGLOBIN 15.4 G/DL (11.5-16.0); LYMPHOCYTES # (AUTO) 2.7 X 10^3 (1.0-4.0); LYMPHOCYTES % (AUTO) 30 % (12-44); MEAN CORPUSCULAR HEMOGLOBIN 35 PG (25-34); MEAN CORPUSCULAR HGB CONC 35 G/DL (32-36); MEAN CORPUSCULAR VOLUME 99 FL (80-99); MEAN PLATELET VOLUME 10.4 FL (7.4-10.4); MONOCYTES # (AUTO) 1.3 X 10^3 (0.0-1.0); MONOCYTES % (AUTO) 14 % (0-12); NEUTROPHILS % (AUTO) 55 % (42-75); PLATELET COUNT 175 10^3/uL (130-400); RED CELL DISTRIBUTION WIDTH 12.6 % (10.0-14.5); WHITE BLOOD COUNT 9.2 10^3/uL (4.3-11.0)
--- NOTE | 2019-07-14 18:07 | NUR ---
IV removed and pt left AMA without signing paperwork. Ambulatory without any assistance, steady gait.
[2019-07-14 18:08] VITALS: BP 102/64
[2019-07-14 18:16] LABS: ALBUMIN 4.7 GM/DL (3.2-4.5); CHLORIDE 96 MMOL/L (98-107); INR 0.8 (0.8-1.4); POTASSIUM 4.1 MMOL/L (3.6-5.0); PROTHROMBIN TIME PATIENT 11.7 SEC (12.2-14.7); SODIUM 135 MMOL/L (135-145)
[2019-07-14 18:17] LABS: CALCIUM 9.3 MG/DL (8.5-10.1)
[2019-07-14 18:18] LABS: GLUCOSE 93 MG/DL (70-105); TOTAL PROTEIN 7.8 GM/DL (6.4-8.2)
[2019-07-14 18:19] LABS: CARBON DIOXIDE 21 MMOL/L (21-32)
[2019-07-14 18:20] LABS: BILIRUBIN,TOTAL 0.5 MG/DL (0.1-1.0)
[2019-07-14 18:22] LABS: ALKALINE PHOSPHATASE 117 U/L (40-136); CREATININE SERUM 0.64 MG/DL (0.60-1.30); GFR ESTIMATED > 60
[2019-07-14 18:23] LABS: BUN/CREATININE RATIO 9
[2019-07-14 18:25] LABS: ALANINE AMINOTRANSFERASE 45 U/L (0-55)
--- OUTSIDE RECORDS SUMMARY | 2019-07-14 18:36 | XMS REPORT ---
Author Author [facility] [employer] [facility] Address [address] [address] Care Team Providers Care Maintenance Engineer [employer] Name Role Phone HUMA LOZOYA Unavailable DEVORA, HUMA Unavailable DEVORA, HUMA Unavailable HUMA LOZOYA Unavailable DEVORA, HUMA Unavailable DEVORA, HUMA Unavailable DEVORA, HUMA Unavailable AMBER MCKEON DO Unavailable Unavailable LI LOPEZ APRN Unavailable Unavailable HUMA LOZOYA Unavailable APRIL QUINTANILLA THREAD WINDER Unavailable Unavailable BALDERRAMA DO BERRY K Unavailable Unavailable BALDERRAMA DO BERRY K Unavailable Unavailable FRANCISCO ACEVEDO DO Unavailable Unavailable DANICA LERNER MD Unavailable Unavailable DANICA LERNER MD Unavailable Unavailable LI LOPEZ APRN Unavailable Unavailable RIK PINEDO, MALIA Atkins Unavailable Unavailable HUMA LOZOYA MD Unavailable Unavailable FINESSE DESAI MD Unavailable Unavailable FINESSE DESAI MD Unavailable Unavailable MELISSA GARCIA Unavailable Unavailable JOO CHRISTINE MD Unavailable Unavailable Migration, Doctor Unavailable Unavailable Migration, Doctor Unavailable Unavailable Migration, Doctor Unavailable Unavailable Migration, Doctor Unavailable Unavailable Migration, Doctor Unavailable Unavailable Migration, Doctor Unavailable Unavailable Migration, Doctor Unavailable Unavailable JENIFER MULLINS Unavailable Unavailable LI LOPEZ THREAD WINDER Unavailable Unavailable MARISEL CRUZ Unavailable Unavailable CHETAN, CULLEN Unavailable Unavailable CHETAN, CULLEN Unavailable Unavailable HUMA LOZOYA Unavailable TIFFANY BARKER Unavailable HUMA LOZOYA Unavailable HUMA LOZOYA Unavailable HUERTER, HUMA Unavailable LUCERO, TIFFANY Unavailable HUERTER, HUMA Unavailable HUERTER, HUMA Unavailable LUCERO, TIFFANY Unavailable HUERTER, HUMA Unavailable HUERTER, HUMA Unavailable HUERTER, HUMA Unavailable HUERTER, HUMA Unavailable HUERTER, HUMA Unavailable HUERTER, HUMA F PCP HUERTER, HUMA Unavailable HUERTER, HUMA Unavailable HUERTER, HUMA Unavailable TANNA LOPEZ Unavailable Unavailable HUERTER, HUMA Sparks Unavailable Unavailable HUERTER, HUMA Unavailable HUERTER, HUMA Unavailable ZHOU ALEXANDER Unavailable Unavailable PAONI, ALFREDO Unavailable Unavailable PAONI, ALFREDO Unavailable Unavailable HUERTTEMITOPE, HUMA F PCP JENIFER COLLAZO Unavailable Unavailable JANNETH, AMBER Unavailable Unavailable JANNETH, AMBER Unavailable Unavailable RIK PINEDO, MALIA Atkins Unavailable Unavailable ASHLYN PINEDO, HONEY Donaldson Unavailable Unavailable LUCERO, TIFFANY Unavailable HUERTER, HUMA Unavailable MADL, MIGUE Unavailable MADL, MIGUE Unavailable APRIL Shelton Unavailable MADL, MIGUE Unavailable MADL, MIGUE Unavailable HUERTER, HUMA Unavailable MADL, MIGUE Unavailable HUERTER, HUMA Unavailable HUERTER, HUMA Unavailable HUERTER, HUMA Unavailable HUERTER, HUMA Unavailable APRIL Shelton Unavailable Nikita, APRIL Unavailable HUERTER, HUMA Unavailable HUERTER, HUMA Unavailable HUERTER, HUMA Unavailable HUERTER, HUMA Unavailable HUERTER, HUMA Unavailable HUERTER, HUMA Unavailable HUERTER, HUMA Unavailable Nikita, APRIL Unavailable HUERTER, HUMA Unavailable HUERTER, HUMA Unavailable TIFFANY BARKER Unavailable HUERTER, HUMA Unavailable HUERTER, HUMA Unavailable HUERTER, HUMA Unavailable HUERTER, HUMA Unavailable TIFFANY BARKER Unavailable HUERTER, HUMA Unavailable HUERTER, HUMA Unavailable HUERTER, HUMA Unavailable HUERTER, HUMA Unavailable HUERTER, HUMA Unavailable HUERTER, HUMA Unavailable MD Clare LOZOYA PCP MELISSA GARCIA Unavailable Unavailable FINESSE DESAI MD Unavailable Unavailable FINESSE DESAI MD Unavailable Unavailable SHAHANA LEAVITT Unavailable Unavailable LAURENERTTEMITOPE, HUMA Unavailable HUERTER, HUMA Unavailable RAUL WHITTAKER DO Unavailable Unavailable Unavailable Unavailable Unavailable Unavailable Unavailable Unavailable Unavailable Unavailable Unavailable Unavailable Unavailable Unavailable Unavailable Unavailable Allergies Normalized Allergy Reported Date of Reaction(s) Care Provider Facility Allergy Type classification allergen Allergy Onset DA (21 Unclassified No Known Drug 07-20-2012 - no information APRIL QUINTANILLA Not Available sources.) Allergies (90113) no information Unclassified NO KNOWN DRUG UNKNOWN [facility] (4 sources.) ALLERGIES [address] ([address]) Medications Medication Ingredient Drug Dose Dates Status [...] information 16 d information -Cod eine name (3 Discontinued sources.) NOT APPLICABLE 180 May 02, 2015 no THIAMINE no 08-03-19 no no no no information VIAL 2CC information 19 - informat information inf ormation name (1 source.) INJ 100 08-03-19 ion MG/CC (VIT 19 B1 2CC VIAL) Problems Active Problems Problem Normalized Date Last Normalized Normalized Provider Fa cility Classification Problem(s) Recorded Problem Problem Sta tus Duration Residual Altered mental 07-02-2019 - Episodic Active FINESSE COCHRAN [facility] Via codes; status, , MD Ferrer unclassified unspecified Hospital - (9 sources.) [place] ([address]) External cause Blood alcohol 06-30-2019 - Episodic Active JULIEN ALEXANDER [facility] codes: level of 240 [facility] Unspecified mg/100 ml or [place] (24 sources.) [facility] ([address]) Translations: [ OTHER EXTERNAL CAUSE STATUS, BLOOD ALCOHOL LEVEL OF 120-199 MG/100 ML] Chronic Chronic 07-02-2019 - Chronic Active ESTELLA MARIE Via obstructive obstructive [facility] pulmonary pulmonary [facility] - disease and disease, [place] bronchiectasis unspecified (58759) (22 sources.) Coma; stupor; Coma scale, 07-02-2019 - Episodic Active JENIFER MULLINS [facility] Via and brain best verbal [place] damage (20 response, Hospital - sources.) oriented, at [place] arrival to (43536) emergency department Translations: [ COMA SCALE, BEST MOTOR RESPONSE, OBEYS C, COMA SCALE, EYES OPEN, SPONTANEOUS, EMR] Residual Contact with 07-02-2019 - Episodic Active ESTELLA MARIE Via codes; and DEVORAH Ferrer unclassified (suspected) Hospital - (20 sources.) exposure to [place] environmental (36939) tobacco smoke (acute) (chronic) Superficial Contusion of 07-02-2019 - Episodic Active JENIFER B DAVIDOT [facility] Via injury; other part of [place] contusion (13 head, initial Hospital - sources.) encounter [place] Translations: (89481) [ Contusion of face] Other Effusion, left 07-02-2019 - Episodic Active MALIA [facility] Via non-traumatic ankle [place] JOLLY joint Hospital - disorders (12 [place] sources.) (79968) External cause Exposure to 07-02-2019 - Episodic Active LI LOPEZ [facility] Via codes: other THREAD WINDER [place] Natural/enviro specified Hospital - nment (14 factors, [place] sources.) initial (68068) encounter Residual Family history 07-02-2019 - Episodic Active LI CARRILLO [facility] Via codes; of malignant THREAD WINDER [place] unclassified neoplasm of Hospital - (20 sources.) other organs [place] or systems (01939) Translations: [ CNTCT W AND EXPSR TO ENVIRON TOBACCO SMO] Residual Illness, 07-02-2019 - Episodic Active MALIA [facility] V ia codes; unspecified [place] JOLLY MD Hospital - (16 sources.) [place] ([address]) Other manager terminal 07-02-2019 - Episodic Active LI LOPEZ [facility] Via aftercare (22 (current) use THREAD WINDER [place] sources.) of aspirin Hospital - [place] ([address]239) Other lower Lung mass Episodic Active HUMA DEVORA Hernandez ion Via respiratory [address] [place] disease (3 Hospital sources.) (86613) Bacterial Mycoplasma 06-30-2019 - Episodic Active ZHOU LEOS [facility] infection; infection, [facility] unspecified unspecified [place] site (12 site County ([address]) sources.) Translations: [ MYCOPLASMA INFECTION IN CONDITIONS CLASSIFIED ELSEWHERE AND OF UNSPECIFIED SITE] Other nervous Other chronic Chronic Active BERRY BALDERRAMA , N ot Available system pain DO (17364) disorders (5 sources.) Attention-defi Other conduct Chronic Active BERRY BALDERRAMA , Not Available 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 (82120) and disruptive behavior disorders (5 sources.) External cause Other fall on 07-02-2019 - Episodic Active MARINA IS BERNOT [facility] Via codes: Fall same level, [place] (24 sources.) initial Hospital - encounter [place] Translations: (42302) [ FALL (ON)(FROM) SIDEWALK CURB, INITIAL E, FALL SAME LEV FROM SLIP/TRIP W STRIKE AG, UNSPECIFIED FALL, INITIAL ENCOUNTER] Other Other long 07-02-2019 - Episodic Active LI LOPEZ [facility] Via aftercare (25 term (current) THREAD WINDER [place] sources.) drug therapy Hospital - [place] (34052) Substance-rela Other 07-02-2019 - Episodic Active FINESSE COCHRAN [facility] Via arlin disorders psychoactive MD Ferrer (21 sources.) substance use, Hospital - unspecified, [place] uncomplicated (28094) Translations: [ CANNABIS USE, UNSPECIFIED, UNCOMPLICATED] Other Pain in 07-02-2019 - Episodic Active HONEY [facility] V ia connective unspecified MD [place] GOLDBERG tissue disease limb Hospital - (8 sources.) [place] ([address]) Residual Patient's 07-02-2019 - Episodic Active FINESSE DESAI [facility] Via codes; other , MD Ferrer unclassified noncompliance Hospital - (12 sources.) with [place] medication (23703) regimen Translations: [ SLEEP APNEA, UNSPECIFIED, ALTERED MENTAL STATUS, UNSPECIFIED] Other injuries Personal 07-02-2019 - Episodic Active SHAHANA ROSENTHAL [facility] Via and conditions history of [employer] [place] due to (healed) Hospital - external traumatic [place] causes (8 fracture (67494) sources.) Genitourinary Personal 07-02-2019 - Episodic Active LI Escoto [facility] Via symptoms and history of THREAD WINDER [place] ill-defined other diseases Hospital - conditions (22 of urinary [place] sources.) system (56889) Suicide and Personal 07-02-2019 - Episodic Active LI LOPEZ [facility] Via intentional history of THREAD WINDER [place] self-inflicted self-harm Hospital - injury (22 Translations: [place] sources.) [ SUICIDAL (64195) IDEATION] Pneumonia Pneumonia, 07-02-2019 - Episodic Active FINESSE Atkins [facility] Via (except that unspecified , MD Ferrer caused by organism Hospital - tuberculosis [place] or sexually (27008) transmitted disease) (12 sources.) Other lower Respiratory 07-02-2019 - Episodic Active AMBER MCKEON DO [facility] Via respiratory disorder, [place] disease (16 unspecified Hospital - sources.) [place] ([address]507) Septicemia Sepsis, 07-02-2019 - Episodic Active FINESSE DESAI [facility] Via (except in unspecified , MD Ferrer labor) (7 organism Hospital - sources.) [place] (05517) Other lower Shortness of 07-02-2019 - Episodic Active AMBER BENY O , DO [facility] Via respiratory breath [place] disease (21 Hospital - sources.) [place] ([address]51) Other lower Shortness of Episodic Active no name Hospita l respiratory breath [facility] disease (5 [place] sources.) [facility] (93057) External cause Sidewalk as 07-02-2019 - Episodic Active LI LOPEZ [facility] Via codes: Place the place of [facility] of occurrence occurrence of Hospital - (15 sources.) the external [place] cause (76183) Translations: [ UNSP PLACE IN UNSP NON-INSTITUT (PRIVATE] Residual Sleep apnea, 07-02-2019 - Chronic Active LI LOPEZ [facility] Via codes; unspecified THREAD WINDER [place] unclassified Hospital - (25 sources.) [place] (20005) NEGATED Sleep no information Active no name no infor mation no disorder, information (3 unspecified sources.) Translations: [ SLEEP APNEA, UNSPECIFIED, CNTCT W AND EXPSR TO ENVIRON TOBACCO SMO, FAMILY HISTORY OF MALIGNANT NEOPLASM OF ] Residual Sleep 07-02-2019 - Episodic Active SHAHANA ROSENTHAL [facility] Via codes; disorder, [employer] [place] unclassified unspecified Hospital - (7 sources.) [place] ([address]01) Other lower Solitary 07-02-2019 - Episodic Active TANNA JOHN [facility] Via respiratory pulmonary [place] disease (8 nodule Hospital - sources.) [place] (81875) Residual Tobacco use 06-30-2019 - Episodic Active ZHOU GOVEA R Hospital codes; [facility] unclassified [place] (31 sources.) [facility] (01877) Other injuries Unspecified 07-02-2019 - Episodic Active JENIFER MULLINS [facility] Via and conditions injury of [place] due to face, initial Hospital - external encounter [place] causes (10 (06608) sources.) Past or Other Problems Problem Normalized Date Last Normalized Normalized Provider Fa cility Classification Problem(s) Recorded Problem Problem Sta tus Duration External cause Accidental no information Completed FRANCISCO N ot Available codes: Fall fall on or [place] , [place] (38483) (19 sources.) from other stairs or steps Translations: [ UNSPECIFIED FALL, INITIAL ENCOUNTER, FALL SAME LEV FROM SLIP/TRIP W STRIKE AG, FALL (ON)(FROM) SIDEWALK CURB, INITIAL E, Fall on same level, Fall] Residual Altered mental Episodic Completed DANICA LERNER Not Available codes; status , (74856) unclassified (5 sources.) Fracture of Closed Episodic Completed FRANCISCO Not Availab le upper limb (5 fracture of [place] , DO (68851) sources.) greater tuberosity of humerus Coma; stupor; Coma scale, no information no information JENIFER BERNOT [facility] Via and brain best verbal [place] damage (6 response, Hospital - sources.) oriented, at [place] arrival to (93717) emergency department Translations: [ COMA SCALE, BEST MOTOR RESPONSE, OBEYS C, COMA SCALE, EYES OPEN, SPONTANEOUS, EMR] Other bone Disorder of Episodic Completed APRIL DWIGHT Not Av ailable disease and bone and (21983) musculoskeleta cartilage, l deformities unspecified (5 sources.) External cause Exposure to no information no information LI LOPEZ Not Available codes: other (54618) Natural/enviro specified nment (11 factors, sources.) initial encounter Headache; Headache Episodic Completed BERRY BALDERRAMA , Not Availa ble including DO (58204) migraine (5 sources.) External cause Home accidents no information no information LAW RENCE Not Available codes: Place Translations: DO [place] (21923) of occurrence [ [facility] (12 sources.) IN [facility] NON-INSTITUT (PRIVATE, SIDEWALK THE PLACE OF OCCURRENCE OF T] Impulse Homicidal Episodic Completed BERRY BALDERRAMA , Not Avail able control ideation DO (07380) disorders NEC (5 sources.) External cause Other external no information no information LAW RENCE Not Available codes: cause status DO [place] (36694) Unspecified Translations: (20 sources.) [ OTHER EXTERNAL CAUSE STATUS, BLOOD ALCOHOL LEVEL OF 120-199 MG/100 ML, BLOOD ALCOHOL LEVEL OF 240 MG/100 ML OR MORE] Septicemia Sepsis, no information no information FINESSE DESAI Not Available (except in unspecified , (31450) labor) (5 organism sources.) Other injuries Shoulder and Episodic Completed FRANCISCO Not Available and conditions upper arm DO [place] (13706) due to injury external causes (5 sources.) Residual Sleep apnea, no information no information FINESSE ZELAYA Not Available codes; unspecified MD (31818) unclassified Translations: (20 sources.) [ FAMILY HISTORY OF MALIGNANT NEOPLASM OF , CNTCT W AND EXPSR TO ENVIRON TOBACCO SMO] Procedures Procedure Normalized Procedure Procedure Result Performer Facility Date 02-16-2014 Collection venous no information no name [facility] blood venipuncture [facility] (48002) 02-16-2014 Comprehensive no information no name [facility] metabolic panel [facility] (06056) 01-18-2013 Drug screen, no information no name [facility] qualitate/multi [facility] (44186) 04-17-2013 Dxa bone density study no information no name [facility] 1/> sites axial skel [facility] (43691) 03-19-2014 Mammogram, screening no information no name [facility] (21590) 06-02-2013 Radex spine cervical 2 no information no name [facility] or 3 views [facility] (68327) 04-17-2013 Us bone density nasim & no information no name [facility] interp periph any [facility] (44027) Immunizations Normalized Immunization Date Notes Care Provider Facili ty Immunization influenza, 02-16-2014 no information HUMA LOZOYA [address] Com [facility] injectable, [place], [place] ([address]287) contains preservative influenza, seasonal, 12-15-2018 no information no name Co [facility] injectable [facility] (61644) no information 12-22-2018 no information HUMA LOZOYA [address] [facility] (70657) Results Test Name Value Interpretation Reference Range Date Time Fa cility (Normalized) (Normalized) (Medline Reference) not yet categorized on 2019-07-01 Electrocardiogra Complete (no code) 07-01-2019 Hospital ms recorded 12:34-0400 [facility] (65989) Urine Volume Urine Volume (no code) 07-01-2019 Hospital Sufficient 12:34-0400 [facility] (10mL) [facility] (03312) no information Urine Saved if (A) 07-01-2019 Hospital Culture Needed 12:34-0400 [facility] (48hrs from time [facility] of collection) (66006) laboratory on 2019-07-01 Albumin BCG dye 4.3 (no code) 07-01-2019 Hospital [Mass/Vol] 12: [facility] () ALP [Catalytic 104 U/L (no code) 44 - 147 U/L 07-01-2019 Hosp ital activity/Vol] 12: [facility] () ALT [Catalytic 32 U/L (no code) 4 - 40 U/L 07-01-2019 Hospit al activity/Vol] 12: [facility] (85147) Amphetamines Ql Negative (no code) 07-01-2019 Hospital (U) 12: [facility] () Anion gap 16 mmol/L (H) 3 - 11 mmol/L 07-01-2019 Hospital [Moles/Vol] 12: [facility] () AST [Catalytic 60 U/L (H) 10 - 34 U/L 07-01-2019 Hospi arianna activity/Vol] 12: [facility] () Bacteria LM Ql Trace (A) 07-01-2019 Hospital (Urine sed) 12: [facility] () Barbiturates Negative (no code) 07-01-2019 Hospital Screen Ql (U) 12: [facility] () Basophils (Bld) 0.0 10*3/uL (no code) 0 - 0.3 10*3/uL 07-01-2019 Hospital [#/Vol] 12: [facility] (81285) Basophils/100 0.40 % (no code) 0.5 - 1 % 07-01-2019 Hospital WBC (Bld) 12: [facility] () Benzodiazepine Negative (no code) 07-01-2019 Hospital metabolites 12: [facility] Screen Ql (U) [facility] () Bilirubin 0.3 mg/dL (no code) 0.1 - 1.2 mg/dL 07-01-2019 Hospit al [Mass/Vol] 12: [facility] (88431) Bilirubin N/A (A) 07-01-2019 Hospital Confirm Ql (U) 12: [facility] () Bilirubin Ql (U) Negative (no code) 07-01-2019 Hospital 12: [facility] () Calcium 8.9 mg/dL (no code) 8.5 - 10.2 mg/dL 07-01-2019 Hospi arianna [Mass/Vol] 12: [facility] () Carboxy Negative (no code) 07-01-2019 Hospital tetrahydrocannab 12: [facility] inol Ql (U) [facility] () Chloride 98 mmol/L (no code) 95 - 106 mmol/L 07-01-2019 Hospit al [Moles/Vol] 12: [facility] () Clarity (U) Clear (no code) 07-01-2019 Hospital 12: [facility] () Cocaine Ql (U) Negative (no code) 07-01-2019 Hospital 12: [facility] () Color (U) Yellow (no code) 07-01-2019 Hospital 12: [facility] () Creatinine 0.61 mg/dL (no code) 07-01-2019 Hospital [Mass/Vol] 12: [facility] (91852) Eosinophils 0.1 10*3/uL (no code) 0.05 - 0.5 07-01-2019 Hospita l (Bld) [#/Vol] 10*3/uL 12: [facility] (46446) Eosinophils/100 1.3 % (no code) 1 - 4 % 07-01-2019 Hospit al WBC (Bld) 12: [facility] (46337) Epithelial 5-10/HPF (A) 07-01-2019 Hospital cells.squamous 12: [facility] LM.HPF (Urine [facility] sed) [#/Area] (30591) Erythrocyte 12.0 % (no code) 11.6 - 14.6 % 07-01-2019 Hospit al distribution 12: [facility] width (RBC) [facility] [Ratio] (30106) Ethanol Ql (U) 334.30 (HH) 07-01-2019 Hospital 12: [facility] (76887) GFR/1.73 sq 98 (no code) 90 - 120 07-01-2019 Hospital M.predicted MDRD mL/min/{1.73_m2} mL/min/{1.73_m2} 12: [facility] (S/P/Bld) [Vol [facility] rate/Area] (22389) Globulin (S) 3.1 g/dL (no code) 2 - 3.5 g/dL 07-01-2019 Hospit al [Mass/Vol] 12: [facility] () Glucose 116 mg/dL (H) 60 - 125 mg/dL 07-01-2019 Hospita l [Mass/Vol] 12: [facility] () Glucose Test Negative (no code) 07-01-2019 Hospital strip (U) 12: [facility] [Mass/Vol] [facility] (19860) HCO3 (P) 29 (no code) 07-01-2019 Hospital [Moles/Vol] 12: [facility] () Hematocrit (Bld) 38.2 % (no code) 36.1 - 50.3 % 07-01-2019 H ospital [Volume 12: [facility] fraction] [facility] () Hemoglobin (Bld) 13.4 g/dL (no code) 12.1 - 17.2 g/dL 07-01-2019 Hospital [Mass/Vol] 12: [facility] () Hemoglobin Ql Negative (no code) 07-01-2019 Hospital (U) 12: [facility] () Ketones (U) Negative (no code) 07-01-2019 Hospital [Mass/Vol] 12: [facility] (17346) Leukocyte Negative (no code) 07-01-2019 Hospital esterase Test 12: [facility] strip Ql (U) [facility] (15911) Lymphocytes 2.58 10*3/uL (no code) 0.9 - 2.9 07-01-2019 Hospita l (Bld) [#/Vol] 10*3/uL 12: [facility] (78858) Lymphocytes/100 38.6 % (no code) 20 - 40 % 07-01-2019 Hospit al WBC (Bld) 12: [facility] (28785) MCH (RBC) 36.0 pg (H) 27 - 31 pg 07-01-2019 Hospital [Entitic mass] 12: [facility] (33899) MCHC (RBC) 35.1 g/dL (no code) 32 - 36 g/dL 07-01-2019 Hospital [Mass/Vol] 12: [facility] (51966) MCV (RBC) 102.7 fL (H) 80 - 100 fL 07-01-2019 Hospital [Entitic vol] 12: [facility] (75414) Methylenedioxyme Negative (no code) 07-01-2019 Hospital thamphetamine 12: [facility] Screen Ql (U) [facility] (94184) Monocytes (Bld) 0.9 10*3/uL (no code) 0.3 - 0.9 07-01-2019 Hosp ital [#/Vol] 10*3/uL 12: [facility] (16885) Monocytes/100 13.5 % (H) 2 - 8 % 07-01-2019 Hospital WBC (Bld) 12: [facility] (88808) Neutrophils 3.09 10*3/uL (no code) 1.7 - 7 10*3/uL 07-01-2019 H ospital (Bld) [#/Vol] 12: [facility] (63872) Neutrophils/100 46.2 % (no code) 40 - 60 % 07-01-2019 Hospit al WBC (Bld) 12: [facility] () Nitrite Ql (U) Negative (no code) 07-01-2019 Hospital 12: [facility] () Opiates Screen Negative (no code) 07-01-2019 Hospital Ql (U) 12: [facility] (63055) Osmolality Calc 287 (no code) 07-01-2019 Hospital [Osmolality] 12: [facility] () Oxycodone Ql (U) Negative (no code) 07-01-2019 Hospital 12: [facility] () pH (U) 5.5 [pH] (no code) 4.6 - 8 [pH] 07-01-2019 Hospital 12: [facility] () Phencyclidine Ql Negative (no code) 07-01-2019 Hospital (U) 12: [facility] () Platelet mean 10.1 fL (H) 7.2 - 11.7 fL 07-01-2019 Hosp ital volume (Bld) 12: [facility] [Entitic vol] [facility] () Platelets (Bld) 203 10*3/uL (no code) 150 - 450 07-01-2019 Hosp ital [#/Vol] 10*3/uL 12: [facility] () Potassium 4.1 mmol/L (no code) 3.7 - 5.2 mmol/L 07-01-2019 Hosp ital [Moles/Vol] 12: [facility] () Propoxyphene Ql Negative (no code) 07-01-2019 Hospital (U) 12: [facility] () Protein (U) Negative (no code) 0 - 20 mg/dL 07-01-2019 Hospita l [Mass/Vol] 12: [facility] (82681) Protein 7.4 g/dL (no code) 6.4 - 8.3 g/dL 07-01-2019 Hospita l [Mass/Vol] 12:0 [facility] [facility] ([id number][facility] RBC (Bld) 3.72 10*6/uL (no code) 4.2 - 6.1 07-01-2019 Hospital [#/Vol] 10*6/uL 12:0 [facility] (94385) RBC LM.HPF 0-2/HPF (A) 07-01-2019 Hospital (Urine sed) 12: [facility] [#/Area] [facility] (36892) Sodium 139 mmol/L (no code) 135 - 145 mmol/L 07-01-2019 Hosp ital [Moles/Vol] 12: [facility] (57934) Specific gravity <=1.005 (A) 07-01-2019 Hospital (U) [Rel 12: [facility] density] [facility] (92426) Tricyclic Negative (no code) 07-01-2019 Hospital antidepressants 12: [facility] Ql (U) [facility] (46648) Urea nitrogen 9 mg/dL (no code) 7 - 20 mg/dL 07-01-2019 Hospi arianna [Mass/Vol] 12: [facility] (50403) Urobilinogen Qn [id number] (A) 07-01-2019 Hospital (U) {Elvia'U}/dL 12: [facility] (67875) WBC (Bld) 6.69 10*3/uL (no code) 3.5 - 10.5 07-01-2019 Hospital [#/Vol] 10*3/uL 12:0 [facility] (37160) WBC LM.HPF 0-2/HPF (A) 07-01-2019 Hospital (Urine sed) 12: [facility] [#/Area] [facility] (46857) Yeast.budding Ql Yeast Present (no code) 07-01-2019 Hospita l (Urine sed) 12: [facility] (28356) laboratory on 2019-06-24 Albumin BCG dye 4.1 (no code) 06-24-2019 Hospital [Mass/Vol] 13:00040 [facility] (32978) ALP [Catalytic 112 U/L (no code) 44 - 147 U/L 06-24-2019 Hosp ital activity/Vol] 13: [facility] (28107) ALT [Catalytic 33 U/L (no code) 4 - 40 U/L 06-24-2019 Hospit al activity/Vol] 13: [facility] (31717) Amphetamines Ql Negative (no code) 06-24-2019 Hospital (U) 12:39 [facility] (34517) Anion gap 20 mmol/L (H) 3 - 11 mmol/L 06-24-2019 Hospital [Moles/Vol] 13: [facility] (57528) AST [Catalytic 58 U/L (H) 10 - 34 U/L 06-24-2019 Hospi arianna activity/Vol] 13: [facility] (30858) Barbiturates Negative (no code) 06-24-2019 Hospital Screen Ql (U) 12: [facility] (62102) Basophils (Bld) 0.0 10*3/uL (no code) 0 - 0.3 10*3/uL 06-24-2019 Hospital [#/Vol] 13:00040 [facility] (56726) Basophils/100 0.70 % (no code) 0.5 - 1 % 06-24-2019 Hospital WBC (Bld) 13: [facility] (33047) Benzodiazepine Negative (no code) 06-24-2019 Hospital metabolites 12:39 [facility] Screen Ql (U) [facility] (05389) Bilirubin 0.2 mg/dL (no code) 0.1 - 1.2 mg/dL 06-24-2019 Hospit al [Mass/Vol] 13: [facility] (19701) Calcium 8.3 mg/dL (no code) 8.5 - 10.2 mg/dL 06-24-2019 Hospi arianna [Mass/Vol] 13: [facility] (24535) Carboxy Negative (no code) 06-24-2019 Hospital tetrahydrocannab 12:39 [facility] inol Ql (U) [facility] (63399) Chloride 100 mmol/L (no code) 95 - 106 mmol/L 06-24-2019 Hospi arianna [Moles/Vol] 13: [facility] (47414) Cocaine Ql (U) Negative (no code) 06-24-2019 Hospital 12:39 [facility] (83742) Creatinine 0.59 mg/dL (no code) 06-24-2019 Hospital [Mass/Vol] 13: [facility] (57277) Eosinophils 0.1 10*3/uL (no code) 0.05 - 0.5 06-24-2019 Hospita l (Bld) [#/Vol] 10*3/uL 13: [facility] (45609) Eosinophils/100 1.9 % (no code) 1 - 4 % 06-24-2019 Hospit al WBC (Bld) 13: [facility] () Erythrocyte 11.7 % (no code) 11.6 - 14.6 % 06-24-2019 Hospit al distribution 13: [facility] width (RBC) [facility] [Ratio] ([id number]) Ethanol Ql (U) 384.80 (HH) 06-24-2019 Hospital 12:39 [facility] (76062) GFR/1.73 sq 102 (no code) 90 - 120 06-24-2019 Hospital M.predicted MDRD mL/min/{1.73_m2} mL/min/{1.73_m2} 13: [facility] (S/P/Bld) [Vol [facility] rate/Area] (54352) Globulin (S) 2.8 g/dL (no code) 2 - 3.5 g/dL 06-24-2019 Hospit al [Mass/Vol] 13: [facility] (32808) Glucose 85 mg/dL (no code) 60 - 125 mg/dL 06-24-2019 Hospita l [Mass/Vol] 13:00040 [facility] (10131) HCO3 (P) 22 (no code) 06-24-2019 Hospital [Moles/Vol] 13:040 [facility] (93694) Hematocrit (Bld) 41.1 % (no code) 36.1 - 50.3 % 06-24-2019 H ospital [Volume 13: [facility] fraction] [facility] (34449) Hemoglobin (Bld) 14.2 g/dL (no code) 12.1 - 17.2 g/dL 06-24-2019 Hospital [Mass/Vol] 13:00 [facility] (84053) Lymphocytes 2.63 10*3/uL (no code) 0.9 - 2.9 06-24-2019 Hospita l (Bld) [#/Vol] 10*3/uL 13: [facility] (43200) Lymphocytes/100 44.4 % (no code) 20 - 40 % 06-24-2019 Hospit al WBC (Bld) 13:00 [facility] (27097) M. pneumoniae Ab Positive (A) 06-24-2019 Hospital Ql (S) : [facility] (73805) MCH (RBC) 35.3 pg (H) 27 - 31 pg 06-24-2019 Hospital [Entitic mass] 13: [facility] (61501) MCHC (RBC) 34.5 g/dL (no code) 32 - 36 g/dL 06-24-2019 Hospital [Mass/Vol] 13:00040 [facility] (38315) MCV (RBC) 102.2 fL (H) 80 - 100 fL 06-24-2019 Hospital [Entitic vol] 13: [facility] () Methylenedioxyme Negative (no code) 06-24-2019 Hospital thamphetamine 12:39 [facility] Screen Ql (U) [facility] (23194) Monocytes (Bld) 0.9 10*3/uL (no code) 0.3 - 0.9 06-24-2019 Hosp ital [#/Vol] 10*3/uL 13:000400 [facility] (39998) Monocytes/100 15.5 % (H) 2 - 8 % 06-24-2019 Hospital WBC (Bld) 13:00 [facility] (31516) Neutrophils 2.23 10*3/uL (no code) 1.7 - 7 10*3/uL 06-24-2019 H ospital (Bld) [#/Vol] 13:000400 [facility] (94678) Neutrophils/100 37.5 % (no code) 40 - 60 % 06-24-2019 Hospit al WBC (Bld) 13:00 [facility] (49393) Opiates Screen Negative (no code) 06-24-2019 Hospital Ql (U) 12:39 [facility] (21719) Osmolality Calc 283 (no code) 06-24-2019 Hospital [Osmolality] 13:00040 [facility] (41906) Oxycodone Ql (U) Negative (no code) 06-24-2019 Hospital 12:39-0400 [facility] (29454) Phencyclidine Ql Negative (no code) 06-24-2019 Hospital (U) 12:39-0400 [facility] (39967) Platelet mean 10.8 fL (H) 7.2 - 11.7 fL 06-24-2019 Hosp ital volume (Bld) 13:00 [facility] [Entitic vol] [facility] (80514) Platelets (Bld) 117 10*3/uL (L) 150 - 450 06-24-2019 Hosp ital [#/Vol] 10*3/uL 13:000400 [facility] (83130) Potassium 3.9 mmol/L (no code) 3.7 - 5.2 mmol/L 06-24-2019 Hosp ital [Moles/Vol] 13:000400 [facility] (42820) Propoxyphene Ql Negative (no code) 06-24-2019 Hospital (U) 12:39-0400 [facility] (85797) Protein 6.9 g/dL (no code) 6.4 - 8.3 g/dL 06-24-2019 Hospita l [Mass/Vol] 13:000400 [facility] (72298) RBC (Bld) 4.02 10*6/uL (no code) 4.2 - 6.1 06-24-2019 Hospital [#/Vol] 10*6/uL 13:000400 [facility] (46686) Sodium 138 mmol/L (no code) 135 - 145 mmol/L 06-24-2019 Hosp ital [Moles/Vol] 13:000400 [facility] (43603) Tricyclic Negative (no code) 06-24-2019 Hospital antidepressants 12:39-0400 [facility] Ql (U) [facility] (68353) Urea nitrogen 7 mg/dL (no code) 7 - 20 mg/dL 06-24-2019 Hospi arianna [Mass/Vol] 13:000400 [facility] (11689) WBC (Bld) 5.93 10*3/uL (no code) 3.5 - 10.5 06-24-2019 Hospital [#/Vol] 10*3/uL 13:00-0400 [facility] (16983) not yet categorized on 2019-01-02 Urine Volume Urine Volume (no code) 01-02-2019 Hospital Sufficient 07:59-0500 [facility] (10mL) [facility] (23377) no information Urine Saved if (A) 01-02-2019 Hospital Culture Needed 07:59-0500 [facility] (48hrs from time [facility] of collection) (65974) laboratory on 2019-01-02 Albumin BCG dye 4.4 (no code) 01-02-2019 Hospital [Mass/Vol] 07:59-0500 [facility] (90459) ALP [Catalytic 88 U/L (no code) 44 - 147 U/L 01-02-2019 Hosp ital activity/Vol] 07:59-0500 [facility] (11898) ALT [Catalytic 30 U/L (no code) 4 - 40 U/L 01-02-2019 Hospit al activity/Vol] 07:590500 [facility] (76318) Anion gap 18 mmol/L (H) 3 - 11 mmol/L 01-02-2019 Hospital [Moles/Vol] 07:59-0500 [facility] (76969) AST [Catalytic 37 U/L (no code) 10 - 34 U/L 01-02-2019 Hospi arianna activity/Vol] 07:590500 [facility] (72286) Bacteria LM Ql Negative (no code) 01-02-2019 Hospital (Urine sed) 07:590500 [facility] (64431) Basophils (Bld) 0.1 10*3/uL (no code) 0 - 0.3 10*3/uL 01-02-2019 Hospital [#/Vol] 07:59-0500 [facility] (77218) Basophils/100 0.60 % (no code) 0.5 - 1 % 01-02-2019 Hospital WBC (Bld) 07:590500 [facility] (83637) Bilirubin 0.3 mg/dL (no code) 0.1 - 1.2 mg/dL 01-02-2019 Hospit al [Mass/Vol] 07:590500 [facility] (74115) Bilirubin N/A (A) 01-02-2019 Hospital Confirm Ql (U) 07:590500 [facility] (88986) Bilirubin Ql (U) Negative (no code) 01-02-2019 Hospital 07:590500 [facility] (88139) Calcium 9.4 mg/dL (no code) 8.5 - 10.2 mg/dL 01-02-2019 Hospi arianna [Mass/Vol] 07:590500 [facility] (39581) Chloride 102 mmol/L (no code) 95 - 106 mmol/L 01-02-2019 Hospi arianna [Moles/Vol] 07:590500 [facility] (83530) Clarity (U) Clear (no code) 01-02-2019 Hospital 07:590500 [facility] (86184) Color (U) Yellow (no code) 01-02-2019 Hospital 07:59-0500 [facility] (51098) Creatinine 0.60 mg/dL (no code) 01-02-2019 Hospital [Mass/Vol] 07:59-0500 [facility] (31892) Eosinophils 0.1 10*3/uL (no code) 0.05 - 0.5 01-02-2019 Hospita l (Bld) [#/Vol] 10*3/uL 07:59-0500 [facility] (88271) Eosinophils/100 1.8 % (no code) 1 - 4 % 01-02-2019 Hospit al WBC (Bld) 07:590500 [facility] (44553) Epithelial 0-5/HPF (A) 01-02-2019 Hospital cells.squamous 07:59-0500 [facility] LM.HPF (Urine [facility] sed) [#/Area] (03090) Erythrocyte 12.5 % (no code) 11.6 - 14.6 % 01-02-2019 Hospit al distribution 07:590500 [facility] width (RBC) [facility] [Ratio] (38435) GFR/1.73 sq 100 (no code) 90 - 120 01-02-2019 Hospital M.predicted MDRD mL/min/{1.73_m2} mL/min/{1.73_m2} 07:590500 [facility] (S/P/Bld) [Vol [facility] rate/Area] (03330) Globulin (S) 3.3 g/dL (no code) 2 - 3.5 g/dL 01-02-2019 Hospit al [Mass/Vol] 07:590500 [facility] (65312) Glucose 94 mg/dL (no code) 60 - 125 mg/dL 01-02-2019 Hospita l [Mass/Vol] 07:59-0500 [facility] (85884) Glucose Test Negative (no code) 01-02-2019 Hospital strip (U) 07:590500 [facility] [Mass/Vol] [facility] (35869) HCO3 (P) 24 (no code) 01-02-2019 Hospital [Moles/Vol] 07:59-0500 [facility] (83740) Hematocrit (Bld) 42.9 % (no code) 36.1 - 50.3 % 01-02-2019 H ospital [Volume 07:59-0500 [facility] fraction] [facility] (80805) Hemoglobin (Bld) 14.5 g/dL (no code) 12.1 - 17.2 g/dL 01-02-2019 Hospital [Mass/Vol] 07:59-0500 [facility] (32950) Hemoglobin Ql Negative (no code) 01-02-2019 Hospital (U) 07:59-0500 [facility] (09306) Ketones (U) Negative (no code) 01-02-2019 Hospital [Mass/Vol] 07:59-0500 [facility] (02871) Leukocyte Negative (no code) 01-02-2019 Hospital esterase Test 07:590500 [facility] strip Ql (U) [facility] (15286) Lymphocytes 2.47 10*3/uL (no code) 0.9 - 2.9 01-02-2019 Hospita l (Bld) [#/Vol] 10*3/uL 07:59-0500 [facility] (10870) Lymphocytes/100 31.3 % (no code) 20 - 40 % 01-02-2019 Hospit al WBC (Bld) 07:59-0500 [facility] (02295) MCH (RBC) 34.4 pg (H) 27 - 31 pg 01-02-2019 Hospital [Entitic mass] 07:59-0500 [facility] (98497) MCHC (RBC) 33.8 g/dL (no code) 32 - 36 g/dL 01-02-2019 Hospital [Mass/Vol] 07:59-0500 [facility] (85992) MCV (RBC) 101.9 fL (H) 80 - 100 fL 01-02-2019 Hospital [Entitic vol] 07:59-0500 [facility] (84543) Monocytes (Bld) 0.9 10*3/uL (no code) 0.3 - 0.9 11-25-2019 Hosp ital [#/Vol] 10*3/uL 07:590500 [facility] (18007) Monocytes/100 11.3 % (no code) 2 - 8 % 01-02-2019 Hospital WBC (Bld) 07:590500 [facility] (76351) Neutrophils 4.35 10*3/uL (no code) 1.7 - 7 10*3/uL 01-02-2019 H ospital (Bld) [#/Vol] 07:590500 [facility] (21662) Neutrophils/100 55.0 % (no code) 40 - 60 % 01-02-2019 Hospit al WBC (Bld) 07:590500 [facility] (96389) Nitrite Ql (U) Negative (no code) 01-02-2019 Hospital 07:590500 [facility] (50021) Osmolality Calc 287 (no code) 01-02-2019 Hospital [Osmolality] 07:59050 [facility] (82859) pH (U) 6.0 [pH] (no code) 4.6 - 8 [pH] 01-02-2019 Hospital 07:590500 [facility] (46101) Platelet mean 11.8 fL (H) 7.2 - 11.7 fL 01-02-2019 Hosp ital volume (Bld) 07:590500 [facility] [Entitic vol] [facility] (96077) Platelets (Bld) 152 10*3/uL (no code) 150 - 450 01-02-2019 Hosp ital [#/Vol] 10*3/uL 07:590500 [facility] (23471) Potassium 3.8 mmol/L (no code) 3.7 - 5.2 mmol/L 01-02-2019 Hosp ital [Moles/Vol] 07:590500 [facility] (90094) Protein (U) Negative (no code) 0 - 20 mg/dL 01-02-2019 Hospita l [Mass/Vol] 07:590500 [facility] (13705) Protein 7.7 g/dL (no code) 6.4 - 8.3 g/dL 01-02-2019 Hospita l [Mass/Vol] 07:59-0500 [facility] (45608) RBC (Bld) 4.21 10*6/uL (no code) 4.2 - 6.1 01-02-2019 Hospital [#/Vol] 10*6/uL 07:59-0500 [facility] (31379) RBC LM.HPF Negative (no code) 0 - 4 /[HPF] 01-02-2019 Hospital (Urine sed) 07:590500 [facility] [#/Area] [facility] (15500) Sodium 140 mmol/L (no code) 135 - 145 mmol/L 01-02-2019 Hosp ital [Moles/Vol] 07:59-0500 [facility] (72683) Specific gravity 1.010 (no code) 01-02-2019 Hospital (U) [Rel 07:590500 [facility] density] [facility] (09127) Urea nitrogen 7 mg/dL (no code) 7 - 20 mg/dL 01-02-2019 Hospi arianna [Mass/Vol] 07:59-0500 [facility] (95296) Urobilinogen Qn [id number] (A) 01-02-2019 Hospital (U) {Elvia'U}/dL 07:590500 [facility] (24289) WBC (Bld) 7.90 10*3/uL (no code) 3.5 - 10.5 01-02-2019 Hospital [#/Vol] 10*3/uL 07:59-0500 [facility] (78183) WBC LM.HPF Negative (no code) 0 - 5 /[HPF] 01-02-2019 Hospital (Urine sed) 07:590500 [facility] [#/Area] [facility] (14376) Yeast.budding Ql No Yeast present (no code) 01-02-2019 Hosp ital (Urine sed) 07:59-0500 [facility] (51263) laboratory on 2018-12-15 Albumin 4.8 g/dL (N) 3.4 - 5.4 g/dL [facility] [Mass/Vol] [facility] (25014) Albumin/Globulin 1.9 {ratio} (N) 1 - 2.5 {ratio} Replaced by [facility] [Mass ratio] [facility] (80237) ALP [Catalytic 91 U/L (N) 44 - 147 U/L [facility] Health activity/Vol] [facility] (80097) ALT [Catalytic 21 U/L (N) 4 - 40 U/L [facility]Vol] [facility] (59529) AST [Catalytic 28 U/L (N) 10 - 34 U/L [facility] activity/Vol] [facility] (16774) Bilirubin 0.3 mg/dL (N) 0.1 - 1.2 mg/dL [facility] [Mass/Vol] [facility] (30012) Calcium 9.3 mg/dL (N) 8.5 - 10.2 mg/dL [facility] [Mass/Vol] [facility] (69647) Chloride 102 mmol/L (N) 95 - 106 mmol/L [facility] [Moles/Vol] [facility] (34305) CO2 [Moles/Vol] 27 mmol/L (N) 23 - 29 mmol/L [facility] (41606) Creatinine 0.52 mg/dL (N) [facility] h [Mass/Vol] [facility] (64623) GFR/1.73 sq M 117 (N) 90 - 120 [facility] predicted among mL/min/{1.73_m2} mL/min/{1.73_m2} [place] [facility] blacks MDRD [facility] (S/P/Bld) [Vol (69296) rate/Area] GFR/1.73 sq 101 (N) 90 - 120 [facility] th M.predicted MDRD mL/min/{1.73_m2} mL/min/{1.73_m2} [facility] (S/P/Bld) [Vol [facility] rate/Area] (80481) Globulin (S) 2.5 g/dL (N) 2 - 3.5 g/dL [facility] [Mass/Vol] [facility] (62894) Glucose 66 mg/dL (N) 60 - 125 mg/dL [facility] [Mass/Vol] [facility] (62910) Potassium 4.5 mmol/L (N) 3.7 - 5.2 mmol/L [facility] [Moles/Vol] [facility] (55067) Protein 7.3 g/dL (N) 6.4 - 8.3 g/dL [facility] [Mass/Vol] [facility] (19113) Sodium 138 mmol/L (N) 135 - 145 mmol/L [facility] [Moles/Vol] [facility] (73066) Urea nitrogen 11 mg/dL (N) 7 - 20 mg/dL [facility] [Mass/Vol] [facility] (24984) Urea NOT APPLICABLE (no code) [facility] nitrogen/Creatin [facility] [Mass ratio] [facility] (08783) urinalysis on 2018-08-02 Amphetamines Ql Negative (no code) 08-02-2018 Hospital (U) 20:43-0400 [facility] (35714) Barbiturates Negative (no code) 08-02-2018 Hospital Screen Ql (U) 20:43-0400 [facility] (42608) Clarity (U) Clear (no code) 08-02-2018 Hospital 20:43-0400 [facility] (75207) Cocaine Ql (U) Negative (no code) 08-02-2018 Hospital 20:43-0400 [facility] (48977) Color (U) Yellow (no code) 08-02-2018 Hospital 20:43-0400 [facility] (28482) Epithelial 0-5/HPF (A) 08-02-2018 Hospital cells.squamous 20:43-0400 [facility] LM.HPF (Urine [facility] sed) [#/Area] (07591) Leukocyte Negative (no code) 08-02-2018 Hospital esterase Test 20:43-0400 [facility] strip Ql (U) [facility] (56001) Phencyclidine Ql Negative (no code) 08-02-2018 Hospital (U) 20:43-0400 [facility] (75221) Protein (U) Negative (no code) 0 - 20 mg/dL 08-02-2018 Hospita l [Mass/Vol] 20:43-0400 [facility] (54006) RBC LM.HPF Negative (no code) 0 - 4 /[HPF] 08-02-2018 Hospital (Urine sed) 20:43-0400 [facility] [#/Area] [facility] (60496) Specific gravity <=1.005 (A) 08-02-2018 Hospital (U) [Rel 20:43-0400 [facility] density] [facility] (71713) WBC LM.HPF Nothing Seen on (no code) 08-02-2018 Hospital (Urine sed) Microscopic 20:43-0400 [facility] [#/Area] [facility] (77930) other on 2018-08-02 Albumin BCG dye 4.7 (no code) 08-02-2018 Hospital [Mass/Vol] 19:37-0400 [facility] (82279) Bacteria LM Ql Negative (no code) 08-02-2018 Hospital (Urine sed) 20:43-0400 [facility] (17087) Benzodiazepine Negative (no code) 08-02-2018 Hospital metabolites 20:43-0400 [facility] Screen Ql (U) [facility] (22235) Bilirubin N/A (A) 08-02-2018 Hospital Confirm Ql (U) 20:43-0400 [facility] (78239) Bilirubin Ql (U) Negative (no code) 08-02-2018 Hospital 20:43-0400 [facility] (11507) Carboxy Negative (no code) 08-02-2018 Hospital tetrahydrocannab 20:43-0400 [facility] inol Ql (U) [facility] (26107) CK [Catalytic 65 U/L (no code) 08-02-2018 Hospital activity/Vol] 19:42-0400 [facility] (45714) Electrocardiogra Complete (no code) 08-02-2018 Hospital ms recorded 19:42-0400 [facility] (44510) Erythrocyte 12.4 % (no code) 11.6 - 14.6 % 08-02-2018 Hospit al distribution 19:37-0400 [facility] width (RBC) [facility] [Ratio] (66160) Ethanol Ql (U) 281.60 (HH) 08-02-2018 Hospital 20:43-0400 [facility] (21602) Gamma glutamyl 80 U/L (H) 0 - 30 U/L 08-02-2018 Hospit al transferase 19:53-0400 [facility] [Catalytic [facility] activity/Vol] (51918) GFR/1.73 sq 99 (no code) 90 - 120 08-02-2018 Hospital M.predicted MDRD mL/min/{1.73_m2} mL/min/{1.73_m2} 19:37-0400 [facility] (S/P/Bld) [Vol [facility] rate/Area] (33790) Globulin (S) 2.7 g/dL (no code) 2 - 3.5 g/dL 08-02-2018 Hospit al [Mass/Vol] 19:37-0400 [facility] (80125) Glucose Test Negative (no code) 08-02-2018 Hospital strip (U) 20:43-0400 [facility] [Mass/Vol] [facility] (64599) HCO3 (P) 20 (L) 08-02-2018 Hospital [Moles/Vol] 19:37-0400 [facility] (75107) Hemoglobin Ql Negative (no code) 08-02-2018 Hospital (U) 20:43-0400 [facility] (49211) Ketones (U) Negative (no code) 08-02-2018 Hospital [Mass/Vol] 20:43-0400 [facility] (32390) MCHC (RBC) 34.2 g/dL (no code) 32 - 36 g/dL 08-02-2018 Hospital [Mass/Vol] 19:37-0400 [facility] (82579) Methylenedioxyme Negative (no code) 08-02-2018 Hospital thamphetamine 20:43-0400 [facility] Screen Ql (U) [facility] (33536) Nitrite Ql (U) Negative (no code) 08-02-2018 Hospital 20:43-0400 [facility] (61799) Opiates Screen Negative (no code) 08-02-2018 Hospital Ql (U) 20:43-0400 [facility] (32908) Osmolality Calc 276 (L) 08-02-2018 Hospital [Osmolality] 19:37-0400 [facility] (85850) Oxycodone Ql (U) Negative (no code) 08-02-2018 Hospital 20:43-0400 [facility] (35437) pH (U) 5.5 [pH] (no code) 4.6 - 8 [pH] 08-02-2018 Hospital 20:43-0400 [facility] (48877) Platelet mean 11.4 fL (H) 7.2 - 11.7 fL 08-02-2018 Hosp ital volume (Bld) 19:37-0400 [facility] [Entitic vol] [facility] (00666) Propoxyphene Ql Negative (no code) 08-02-2018 Hospital (U) 20:43-0400 [facility] (03252) Tricyclic Negative (no code) 08-02-2018 Hospital antidepressants 20:43-0400 [facility] Ql (U) [facility] (60195) Urine Volume Urine Volume (no code) 08-02-2018 Hospital Sufficient 20:43-0400 [facility] (10mL) [facility] ([id number]) Urobilinogen Qn 0.2 (no code) 08-02-2018 Hospital (U) 20:43-0400 [facility] ([id number]) Yeast.budding Ql No Yeast present (no code) 08-02-2018 [facility]osp ital (Urine sed) 20:43-0400 [facility] ([id number]) no information Urine Saved if (A) 08-02-2018 Hospital Culture Needed 20:43-0400 [facility] (48hrs from time [facility] of collection) ([id number]) metabolic panel on 2018-08-02 ALP [Catalytic 81 U/L (no code) 44 - 147 U/L 08-02-2018 [facility]osp [facility] activity/Vol] 19:37-0400 [facility] ([id number]) ALT [Catalytic 33 U/L (no code) 4 - 40 U/L 08-02-2018 Hospit al activity/Vol] 19:37-0400 [facility] ([id number]) Anion gap 18 mmol/L (H) 3 - 11 mmol/L 08-02-2018 Hospital [Moles/Vol] 19:37-0400 [facility] ([id number]) AST [Catalytic 36 U/L (no code) 10 - 34 U/L 08-02-2018 Hospi arianna activity/Vol] 19:37-0400 [facility] (19436) Bilirubin 0.5 mg/dL (no code) 0.1 - 1.2 mg/dL 08-02-2018 Hospit al [Mass/Vol] 19:370400 [facility] () Calcium 9.5 mg/dL (no code) 8.5 - 10.2 mg/dL 08-02-2018 Hospi arianna [Mass/Vol] 19:37-0400 [facility] () Chloride 100 mmol/L (no code) 95 - 106 mmol/L 08-02-2018 Hospi arianna [Moles/Vol] 19:37-0400 [facility] () Creatinine 0.61 mg/dL (no code) 08-02-2018 Hospital [Mass/Vol] 19:370400 [facility] (50793) Glucose 107 mg/dL (no code) 60 - 125 mg/dL 08-02-2018 Hospita l [Mass/Vol] 19:37-0400 [facility] (99529) Magnesium 2.8 mg/dL (H) 1.7 - 2.2 mg/dL 08-02-2018 Hospit al [Mass/Vol] 19:42-0400 [facility] (40719) Potassium 3.6 mmol/L (no code) 3.7 - 5.2 mmol/L 08-02-2018 Hosp ital [Moles/Vol] 19:37-0400 [facility] (02477) Protein 7.4 g/dL (no code) 6.4 - 8.3 g/dL 08-02-2018 Hospita l [Mass/Vol] 19:37-0400 [facility] (93271) Sodium 134 mmol/L (no code) 135 - 145 mmol/L 08-02-2018 Hosp ital [Moles/Vol] 19:370400 [facility] (58831) Urea nitrogen 8 mg/dL (no code) 7 - 20 mg/dL 08-02-2018 Hospi arianna [Mass/Vol] 19:37-0400 [facility] (44214) hematology on 2018-08-02 Basophils (Bld) 0.1 10*3/uL (no code) 0 - 0.3 10*3/uL 08-02-2018 Hospital [#/Vol] 19:37-0400 [facility] (09028) Basophils/100 0.80 % (no code) 0.5 - 1 % 08-02-2018 Hospital WBC (Bld) 19:370400 [facility] (82634) Eosinophils 0.0 10*3/uL (no code) 0.05 - 0.5 08-02-2018 Hospita l (Bld) [#/Vol] 10*3/uL 19:370400 [facility] (48020) Eosinophils/100 0.3 % (no code) 1 - 4 % 08-02-2018 Hospit al WBC (Bld) 19:370400 [facility] (33012) Hematocrit (Bld) 43.9 % (no code) 36.1 - 50.3 % 08-02-2018 H ospital [Volume 19:370400 [facility] fraction] [facility] (31074) Hemoglobin (Bld) 15.0 g/dL (no code) 12.1 - 17.2 g/dL 08-02-2018 Hospital [Mass/Vol] 19:37-0400 [facility] (48557) Lymphocytes 2.74 10*3/uL (no code) 0.9 - 2.9 08-02-2018 Hospita l (Bld) [#/Vol] 10*3/uL 19:370400 [facility] (82577) Lymphocytes/100 30.0 % (no code) 20 - 40 % 08-02-2018 Hospit al WBC (Bld) 19:370400 [facility] (23577) MCH (RBC) 34.0 pg (H) 27 - 31 pg 08-02-2018 Hospital [Entitic mass] 19:370400 [facility] (66051) MCV (RBC) 99.5 fL (H) 80 - 100 fL 08-02-2018 Hospital [Entitic vol] 19:370400 [facility] () Monocytes (Bld) 0.8 10*3/uL (no code) 0.3 - 0.9 08-02-2018 Hosp ital [#/Vol] 10*3/uL 19:370400 [facility] () Monocytes/100 8.8 % (no code) 2 - 8 % 08-02-2018 Hospital WBC (Bld) 19:370 [facility] () Neutrophils 5.50 10*3/uL (no code) 1.7 - 7 10*3/uL 08-02-2018 H ospital (Bld) [#/Vol] 19:370400 [facility] () Neutrophils/100 60.1 % (no code) 40 - 60 % 08-02-2018 Hospit al WBC (Bld) 19:370400 [facility] (72227) Platelets (Bld) 100 Result (L) 08-02-2018 Hospital [#/Vol] Verified by 19:370400 [facility] Repeat Analysis [facility] (63274) RBC (Bld) 4.41 10*6/uL (no code) 4.2 - 6.1 08-02-2018 Hospital [#/Vol] 10*6/uL 19:370400 [facility] (19785) WBC (Bld) 9.14 10*3/uL (no code) 3.5 - 10.5 08-02-2018 Hospital [#/Vol] 10*3/uL 19:370400 [facility] (32013) cardiac on 2018-08-02 CK.MB [Mass/Vol] 1.3 ng/mL (no code) 0 - 4.3 ng/mL 08-02-2018 H ospital 19:42-0400 [facility] (89347) Myoglobin 20.4 ng/mL (no code) 08-02-2018 Hospital [Mass/Vol] 19:42-0400 [facility] (40623) Troponin ng/mL (no code) 0 - 0.4 ng/mL 08-02-2018 Hospital I.cardiac 19:42-0400 [facility] [Mass/Vol] [facility] (23795) venous blood hemoglobin measurement (mass/volume) on 2017-10-10 Hemoglobin mass 14.6 g/dL (no code) 12.1 - 17.2 g/dL Via [facility] (d) [facility] (71288) urine urobilinogen measurement by automated test strip (mass/volume) on 2017-10-10 Urobilinogen NORMAL (no code) Via [facility] Test strip n [facility] ([facility] ([id number]) urine total bilirubin detection by test strip on 2017-10-10 Bilirubin Ql (U) Negative (no code) Via [facility] (27258) urine protein assay by test strip, semi-quantitativ e on 2017-10-10 Protein Test Negative (no code) Via [facility] strip ([facility] (72909) urine ph measurement by test strip on 2017-10-10 pH Test strip 7 [pH] (no code) 4.6 - 8 [pH] Via [facility] (10470) urine nitrite detection by test strip on 2017-10-10 Nitrite Test Negative (no code) Via [facility] strip ([facility] (22145) urine ketones detection by automated test strip on 2017-10-10 Ketones Negative (no code) Via [facility] Automated test Hospital strip Ql () [place] (27915) urine glucose detection by automated test strip on 2017-10-10 Glucose Negative (no code) Via [facility] Automated test Hospital strip Ql () [place] (62183) urine color determination on 2017-10-10 Color Nom (U) YELLOW (no code) Via [facility] (90533) urine clarity determination on 2017-10-10 Clarity Nom (U) CLEAR (no code) Via [facility] (23744) specific gravity of urine by test strip on 2017-10-10 Specific gravity 1.005 (*) Via [facility] Relative Density [facility] (U) [place] () serum or plasma urea nitrogen/creatin ine mass ratio on 2017-10-10 Urea 18 mg/mg (no code) 6 - 22 mg/mg Via [facility] nitrogen/Creatin Hospital ine mass ratio [place] () serum or plasma urea nitrogen measurement (mass/volume) on 2017-10-10 Urea nitrogen 10 mg/dL (no code) 7 - 20 mg/dL Via [facility] (70449) serum or plasma total bilirubin measurement (mass/volume) on 2017-10-10 Bilirubin mass 0.3 mg/dL (no code) 0.1 - 1.2 [facility]/dL [facility] serum or plasma sodium measurement (moles/volume) on 2017-10-10 Sodium molar 134 mmol/L (L) 135 - 145 mmol/L Via [facility] (44007) serum or plasma protein measurement (mass/volume) on 2017-10-10 Protein mass 7.2 g/dL (no code) 6.4 - 8.3 g/dL Via [facility] () serum or plasma potassium measurement (moles/volume) on 2017-10-10 Potassium molar 3.7 mmol/L (no code) 3.7 - 5.2 mmol/L Via [facility] () serum or plasma glucose measurement (mass/volume) on 2017-10-10 Glucose mass 89 mg/dL (no code) 60 - 125 mg/dL Via [facility] (47258) serum or plasma creatinine measurement with calculation of estimated glomerular filtration rate on 2017-10-10 GFR/1.73 sq M no information (no code) Via [facility] MDRD [place] vol rate/area () (S/P/Bld) serum or plasma creatinine measurement (mass/volume) on 2017-10-10 Creatinine mass 0.57 mg/dL (L) Via [facility] () serum or plasma chloride measurement (moles/volume) on 2017-10-10 Chloride molar 101 mmol/L (no code) 95 - 106 mmol/L Via [facility] (41525) serum or plasma calcium measurement (mass/volume) on 2017-10-10 Calcium mass 9.0 mg/dL (no code) 8.5 - 10.2 mg/dL Via [facility] (53177) serum or plasma aspartate aminotransferase measurement (enzymatic activity/volume) on 2017-10-10 AST enzyme 20 U/L (no code) 10 - 34 U/L Via [facility] (36141) serum or plasma anion gap determination (moles/volume) on 2017-10-10 Anion gap 3 10 mmol/L (no code) 3 - 11 mmol/L Via [facility] molar [facility] (78539) serum or plasma alkaline phosphatase measurement (enzymatic activity/volume) on 2017-10-10 ALP enzyme 77 U/L (no code) 44 - 147 U/L Via [facility] (36024) serum or plasma albumin measurement (mass/volume) on 2017-10-10 Albumin mass 4.6 g/dL (H) 3.4 - 5.4 g/dL Via [facility] (30031) serum or plasma alanine aminotransferase measurement (enzymatic activity/volume) on 2017-10-10 ALT enzyme 13 U/L (no code) 4 - 40 U/L Via [facility] (22183) mucus detection in urine sediment by light microscopy on 2017-10-10 Mucus LM Ql Negative (no code) Via [facility] (Urine sed) [facility] (19217) leukocyte esterase on 2017-10-10 Leukocyte Negative (no code) Via [facility] esterase Test Hospital strip Ql (U) [place] (43485) erythrocytes detection in urine sediment by light microscopy on 2017-10-10 RBC LM Ql (Urine Negative (no code) Via [facility] sed) [facility] (45727) crystals detection in urine sediment by light microscopy on 2017-10-10 Crystals LM Ql NONE (no code) Via [facility] (Urine sed) [facility] (24183) complete urinalysis with reflex to culture on 2017-10-10 Complete NO (no code) Via [facility] urinalysis with Hospital reflex to [place] culture (66514) casts detection in urine sediment by light microscopy on 2017-10-10 Casts LM Ql NONE (no code) Via [facility] (Urine sed) [facility] () carbon dioxide on 2017-10-10 CO2 molar conc 23 mmol/L (no code) 23 - 29 mmol/L Via [facility] () blood neutrophils automated count (number/volume) on 2017-10-10 Neutrophils Auto 5.5 10*3/uL (no code) 1.7 - 7 10*3/uL Via [facility] #/vol (Bld) [facility] (35756) blood monocytes/100 leukocytes on 2017-10-10 Monocytes/100 10 % (no code) 2 - 8 % Via [facility] WBC Auto (Bld) [facility] (26158) blood monocytes automated count (number/volume) on 2017-10-10 Monocytes Auto 1.1 10*3/uL (H) 0.3 - 0.9 Via [facility] #/vol (Bld) 10*3/uL [facility] (09518) blood lymphocytes automated count (number/volume) on 2017-10-10 Lymphocytes Auto 3.7 10*3/uL (no code) 0.9 - 2.9 Via ti #/vol (Bld) 10*3/uL [facility] (68648) blood leukocytes automated count (number/volume) on 2017-10-10 WBC Auto #/vol 10.4 10*3/uL (no code) 3.5 - 10.5 Via [facility] (Bld) 10*3/uL [facility] (51075) blood hematocrit (volume fraction) on 2017-10-10 Hematocrit Auto 42 % (no code) 36.1 - 50.3 % Via [facility] (d) [place] (25236) blood erythrocytes automated count (number/volume) on 2017-10-10 RBC Auto #/vol 4.20 10*6/uL (L) 4.2 - 6.1 Via [facility] (Bld) 10*6/uL [facility] (40496) bacteria detection in urine sediment by light microscopy on 2017-10-10 Bacteria LM Ql Negative (no code) Via [facility] (Urine sed) [facility] (34754) automated urine sediment leukocyte count by microscopy (number/high power field) on 2017-10-10 WBC LM.HPF NONE (no code) Via [facility]24698[facility] automated urine sediment erythrocyte count by microscopy (number/high power field) on 2017-10-10 RBC LM.HPF NONE (no code) Via [facility] #/area (Urine Hospital sed) [place] (04553) automated erythrocyte mean corpuscular volume on 2017-10-10 MCV Auto Entitic 100 fL (H) 80 - 100 fL Via [facility] volume (RBC) [facility] (84863) automated erythrocyte mean corpuscular hemoglobin concentration measurement (mass/volume) on 2017-10-10 MCHC Auto mass 35 g/dL (no code) 32 - 36 g/dL Via ti conc (RBC) [facility] (39244) automated erythrocyte mean corpuscular hemoglobin (mass per erythrocyte) on 2017-10-10 MCH Auto Entitic 35 pg (H) 27 - 31 pg Via ti mass (RBC) [facility] (59841) automated erythrocyte distribution width ratio on 2017-10-10 Erythrocyte 12.7 % (no code) 11.6 - 14.6 % Via [facility] distribution Hospital width Auto Ratio [place] (RBC) (43759) automated eosinophil count on 2017-10-10 Eosinophils Auto 0.1 10*3/uL (no code) 0.05 - 0.5 Via ti #/vol (Bld) 10*3/uL [facility] (27247) automated blood platelet mean volume measurement on 2017-10-10 Platelet mean 9.6 fL (no code) 7.2 - 11.7 fL Via ti volume Auto Hospital Entitic volume [place] (Bld) (77222) automated blood platelet count (count/volume) on 2017-10-10 Platelets Auto 276 10*3/uL (no code) 150 - 450 Via [facility] #/vol (Bld) 10*3/uL [facility] (40029) automated blood neutrophils/100 leukocytes on 2017-10-10 Neutrophils/100 53 % (no code) 40 - 60 % Via [facility] WBC Auto (Bld) [facility] (78987) automated blood lymphocytes/100 leukocytes on 2017-10-10 Lymphocytes/100 36 % (no code) 20 - 40 % Via [facility] WBC Auto (Bld) [facility] (94394) automated blood eosinophils/100 leukocytes on 2017-10-10 Eosinophils/100 1 % (no code) 1 - 4 % Via [facility] WBC Auto (Bld) [facility] (16651) automated blood basophils/100 leukocytes on 2017-10-10 Basophils/100 1 % (no code) 0.5 - 1 % Via [facility] WBC Auto (Bld) [facility] (72290) automated blood basophil count (count/volume) on 2017-10-10 Basophils Auto 0.1 10*3/uL (no code) 0 - 0.3 10*3/uL Via [facility] #/vol (Bld) [facility] (21082) urinalysis on 2017-10-03 Bacteria LM.HPF Negative (no code) 10-03-2017 Hospital #/area (Urine 17:0 [facility] sed) [facility] (35928) Barbiturates Negative (no code) 10-03-2017 Hospital Screen Ql (U) 17: [facility] (48709) Bilirubin Ql (U) Negative (no code) 10-03-2017 Hospital 17: [facility] (35949) Bilirubin Ql (U) 0.3 (no code) 10-03-2017 Hospital 17:0400 [facility] (34299) Clarity Nom (U) Clear (no code) 10-03-2017 Hospital 17:0400 [facility] (99732) Color Nom (U) Straw (no code) 10-03-2017 Hospital 17:0400 [facility] (17108) Epithelial 0-5/HPF (A) 10-03-2017 Hospital cells.squamous 17: [facility] LM.HPF #/area [facility] (Urine sed) (53605) Hemoglobin Test Negative (no code) 10-03-2017 Hospital strip Ql (U) 17: [facility] (56458) Leukocyte Negative (no code) 10-03-2017 Hospital esterase Test 17: [facility] strip Ql (U) [facility] (01492) Nitrite Test Negative (no code) 10-03-2017 Hospital strip Ql (U) 17: [facility] (69696) pH Test strip 5.5 [pH] (no code) 4.6 - 8 [pH] 10-03-2017 Hospi arianna (U) 17:23-0400 [facility] (60601) Phencyclidine Ql Negative (no code) 10-03-2017 Hospital (U) 17:-0400 [facility] (26583) Protein mass Negative (no code) 0 - 20 mg/dL 10-03-2017 Hospit al conc (U) 17:23-0400 [facility] (90133) RBC LM.HPF Negative (no code) 0 - 4 /[HPF] 10-03-2017 Hospital #/area (Urine 17:23-0400 [facility] sed) [facility] (78114) Specific gravity <=1.005 (A) 10-03-2017 Hospital Relative Density 17:230400 [facility] (U) [facility] (59395) Urobilinogen 0.2 (A) 0.2 - 1 10-03-2017 Hospital Test strip Qn {Elvia'U}/dL {Elvia'U}/dL 17: [facility] (U) [facility] (05411) WBC LM.HPF Rare/HPF (A) 10-03-2017 Hospital #/area (Urine 17:0400 [facility] sed) [facility] (43056) other on 2017-10-03 Acetaminophen <0 (L) 10-03-2017 Hospital mass conc 17:23-0400 [facility] (35786) AMP Negative (no code) 10-03-2017 Hospital 17:0400 [facility] (75222) BZO Negative (no code) 10-03-2017 Hospital 17:0400 [facility] (74703) TRAVIS Negative (no code) 10-03-2017 Hospital 17:230400 [facility] (61787) Globulin 1.8 g/dL (L) 2 - 3.5 g/dL 10-03-2017 Hospital Calculated mass 17:23-0400 [facility] conc (S) [facility] (33951) Glucose. Negative (no code) 10-03-2017 Hospital 17:23-0400 [facility] (86367) Icto N/A (A) 10-03-2017 Hospital 17: [facility] (04078) Ketones mass Negative (no code) 10-03-2017 Hospital conc (U) 17: [facility] (77096) MDMA Negative (no code) 10-03-2017 Hospital 17:0 [facility] (00869) OPI Negative (no code) 10-03-2017 Hospital 17:0 [facility] (99989) OXY Negative (no code) 10-03-2017 Hospital 17:0 [facility] (33540) PPX Negative (no code) 10-03-2017 Hospital 17: [facility] (75394) Salicylates mass <50 (no code) 10-03-2017 Hospital conc 17: [facility] (26372) TCA Negative (no code) 10-03-2017 Hospital 17: [facility] (93975) THC Negative (no code) 10-03-2017 Hospital 17: [facility] (54131) Urine Volume Urine Volume (no code) 10-03-2017 Hospital Sufficient 17: [facility] (10mL) [facility] (51444) Urine Yeast No Yeast present (no code) 10-03-2017 Hospital 17: [facility] (50941) no information Urine Saved if (A) 10-03-2017 Hospital Culture Needed 17: [facility] (48hrs from time [facility] of collection) (35363) metabolic panel on 2017-10-03 Albumin mass 4.7 g/dL (no code) 3.4 - 5.4 g/dL 10-03-2017 Hosp ital conc 17: [facility] (89757) ALP enzyme 82 U/L (no code) 44 - 147 U/L 10-03-2017 Hospital act/vol 17: [facility] (64783) ALT enzyme 13 U/L (no code) 4 - 40 U/L 10-03-2017 Hospital act/vol 17: [facility] (47212) Anion gap 3 19 mmol/L (H) 3 - 11 mmol/L 10-03-2017 Hospit al molar conc 17: [facility] (43741) AST enzyme 21 U/L (no code) 10 - 34 U/L 10-03-2017 Hospital act/vol 17: [facility] (52720) Calcium mass 9.2 mg/dL (no code) 8.5 - 10.2 mg/dL 10-03-2017 Ho spital conc 17: [facility] (79261) Chloride molar 101 mmol/L (no code) 95 - 106 mmol/L 10-03-2017 Hospital conc 17: [facility] (92694) CO2 molar conc 21 mmol/L (L) 23 - 29 mmol/L 10-03-2017 Ho spital 17: [facility] (63814) Creatinine mass 0.60 mg/dL (no code) 10-03-2017 Hospital conc 17: [facility] (05012) GFR/1.73 sq M 101 (no code) 90 - 120 10-03-2017 Hospital predicted among mL/min/{1.73_m2} mL/min/{1.73_m2} : [facility] non-blacks MDRD [facility] vol rate/area (55627) (S/P/Bld) Glucose mass 68 mg/dL (L) 60 - 125 mg/dL 10-03-2017 Hosp ital conc 17: [facility] (82499) Osmolality 281 mosm/kg (no code) 275 - 295 10-03-2017 Hospital mosm/kg : [facility] (05073) Potassium molar 3.8 mmol/L (no code) 3.7 - 5.2 mmol/L 10-03-2017 Hospital conc 17: [facility] (32094) Protein mass 6.5 g/dL (no code) 6.4 - 8.3 g/dL 10-03-2017 Hosp ital conc 17: [facility] (67654) Sodium molar 137 mmol/L (no code) 135 - 145 mmol/L 10-03-2017 H ospital conc 17: [facility] (60971) Urea nitrogen 10 mg/dL (no code) 7 - 20 mg/dL 10-03-2017 Hospi arianna mass conc 17: [facility] (26726) hematology on 2017-10-03 Basophils Auto 0.1 10*3/uL (no code) 0 - 0.3 10*3/uL 10-03-2017 Hospital #/vol (Bld) 17: [facility] (61171) Basophils/100 0.60 % (no code) 0.5 - 1 % 10-03-2017 Hospital WBC Auto (Bld) 17: [facility] (75108) Eosinophils Auto 0.2 10*3/uL (no code) 0.05 - 0.5 10-03-2017 Ho spital #/vol (Bld) 10*3/uL 17: [facility] (93022) Eosinophils/100 1.8 % (no code) 1 - 4 % 10-03-2017 Hospit al WBC Auto (Bld) 17: [facility] (70784) Erythrocyte 12.4 % (no code) 11.6 - 14.6 % 10-03-2017 Hospit al distribution 17: [facility] width Auto Ratio [facility] (RBC) (94521) Hematocrit Auto 41.0 % (no code) 36.1 - 50.3 % 10-03-2017 Ho spital Volume Fraction 17: [facility] (Bld) [facility] (49308) Hemoglobin mass 14.6 g/dL (no code) 12.1 - 17.2 g/dL 10-03-2017 Hospital conc (Bld) 17: [facility] (72933) Lymphocytes Auto 4.43 10*3/uL (H) 0.9 - 2.9 10-03-2017 Ho spital #/vol (Bld) 10*3/uL 17: [facility] (61736) Lymphocytes/100 38.9 % (no code) 20 - 40 % 10-03-2017 Hospit al WBC Auto (Bld) 17: [facility] (12278) MCH Auto Entitic 35.1 pg (H) 27 - 31 pg 10-03-2017 Hosp ital mass (RBC) 17: [facility] (15081) MCHC Auto mass 35.6 g/dL (no code) 32 - 36 g/dL 10-03-2017 Hosp ital conc (RBC) 17: [facility] () MCV Auto Entitic 98.6 fL (H) 80 - 100 fL 10-03-2017 Hos pital volume (RBC) 17: [facility] () Monocytes Auto 1.1 10*3/uL (H) 0.3 - 0.9 10-03-2017 Hospi arianna #/vol (Bld) 10*3/uL 17: [facility] (29016) Monocytes/100 9.8 % (no code) 2 - 8 % 10-03-2017 Hospital WBC Auto (Bld) 17: [facility] (75649) Neutrophils Auto 5.56 10*3/uL (no code) 1.7 - 7 10*3/uL 10-04-19 18 Hospital #/vol (Bld) 17: [facility] (52001) Neutrophils/100 48.9 % (no code) 40 - 60 % 10-03-2017 Hospit al WBC Auto (Bld) 17: [facility] (64202) Platelet mean 9.4 fL (no code) 7.2 - 11.7 fL 10-03-2017 Hosp ital volume Auto 17: [facility] Entitic volume [facility] ([facility]) (41873) Platelets Auto 343 10*3/uL (no code) 150 - 450 10-03-2017 Hospi arianna #/vol (Bld) 10*3/uL 17: [facility] (59054) RBC Auto #/vol 4.16 10*6/uL (no code) 4.2 - 6.1 10-03-2017 Hosp ital (Bld) 10*6/uL 17: [facility] (10028) WBC Auto #/vol 11.38 10*3/uL (H) 3.5 - 10.5 10-03-2017 Ho spital (Bld) 10*3/uL 17: [facility] (88417) drug on 2017-10-03 Ethanol mass 281 mg/dL (HH) 0 - 80 mg/dL 10-03-2017 Hospit al conc 17:040 [facility] (42839) venous blood hemoglobin measurement (mass/volume) on 2017-08-19 Hemoglobin (HGB) 13.8 g/dL (no code) 12 - 18 g/dL Via [facility] (23189) urine urobilinogen measurement by automated test strip (mass/volume) on 2017-08-19 Urine, NORMAL (no code) [facility] (55996[facility] urine total bilirubin detection by test strip on 2017-08-19 Urine, bilirubin Negative (no code) Via [facility] (25079) urine protein assay by test strip, semi-quantitativ e on 2017-08-19 Urine, protein Negative (no code) Via [facility] (43276) urine ph measurement by test strip on 2017-08-19 Urine, pH 6 [pH] (no code) 4.6 - 8 [pH] Via [facility] (59693) urine nitrite detection by test strip on 2017-08-19 Urine, nitrite Negative (no code) Via [facility] (11397) urine ketones detection by automated test strip on 2017-08-19 Urine, ketones Negative (no code) Via [facility] (16721) urine glucose detection by automated test strip on 2017-08-19 Urine, glucose Negative (no code) Via [facility] (46259) urine color determination on 2017-08-19 Urine, color YELLOW (no code) Via [facility] [facility] ([id number]) urine clarity determination on 2017-08-19 Urine, clarity CLEAR (no code) Via [facility] ([id number]) squamous epithelial cells detection in urine sediment by light microscopy on 2017-08-19 Urine, squamous RARE (no code) [facility] cells presence [facility] in [facility] (69493) specific gravity of urine by test strip on 2017-08-19 Urine, specific 1.005 (*) [facility] gravity [facility] ([id number]) serum or plasma urea nitrogen/creatin ine mass ratio on 2017-08-19 BUN/Creatinine 20 mg/mg (no code) 10 - 20 mg/mg Via [facility] sti [facility] (25098) serum or plasma urea nitrogen measurement (mass/volume) on 2017-08-19 Urea nitrogen 12 mg/dL (no code) 7 - 20 mg/dL Via [facility] (43402) serum or plasma sodium measurement (moles/volume) on 2017-08-19 Sodium 137 mmol/L (no code) 135 - 147 mmol/L Via [facility] (86644) serum or plasma potassium measurement (moles/volume) on 2017-08-19 Potassium 3.7 mmol/L (no code) 3.5 - 5.1 mmol/L Via [facility] (42513) serum or plasma glucose measurement (mass/volume) on 2017-08-19 Glucose 80 mg/dL (no code) 60 - 125 mg/dL Via [facility] (40819) serum or plasma creatinine measurement with calculation of estimated glomerular filtration rate on 2017-08-19 eGFR (non-black) no information (no code) Via [facility] (62597) serum or plasma creatinine measurement (mass/volume) on 2017-08-19 Creatinine 0.60 mg/dL (no code) Via [facility] (92249) serum or plasma chloride measurement (moles/volume) on 2017-08-19 Chloride 103 mmol/L (no code) 95 - 106 mmol/L Via [facility] (12060) serum or plasma calcium measurement (mass/volume) on 2017-08-19 Calcium 9.2 mg/dL (no code) 9 - 11 mg/dL Via [facility] ([id number]) serum or plasma anion gap determination (moles/volume) on 2017-08-19 Anion gap 11 mmol/L (no code) 3 - 11 mmol/L Via [facility] (56254) mucus detection in urine sediment by light microscopy on 2017-08-19 Urine, mucus Negative (no code) [facility] presence in [facility] (95161) leukocyte esterase on 2017-08-19 Urine, leukocyte Negative (no code) Via [facility] esterase [facility] (18387) erythrocytes detection in urine sediment by light microscopy on 2017-08-19 Urine, Negative (no code) [facility] erythrocytes [facility] (30040) crystals detection in urine sediment by light microscopy on 2017-08-19 Urine, crystals NONE (no code) [facility] presence in [facility] (19435) complete urinalysis with reflex to culture on 2017-08-19 Complete NO (no code) [facility] urinalysis with Hospital reflex to [place] culture ([id number]) casts detection in urine sediment by light microscopy on 2017-08-19 Urine, casts in NONE (no code) Via [facility] (32263) carbon dioxide on 2017-08-19 CO2 23 mmol/L (no code) 23 - 29 mmol/L Via [facility] (88255) blood neutrophils automated count (number/volume) on 2017-08-19 Neutrophils 5.4 10*3/uL (no code) 1.5 - 7.8 [facility] 10*3/uL [facility] (90130) blood monocytes/100 leukocytes on 2017-08-19 Monocytes/100 12 % (no code) 2 - 8 % [facility] leukocytes [facility] (77911) blood monocytes automated count (number/volume) on 2017-08-19 Monocytes 1.4 10*3/uL (H) 0.2 - 1.1 [facility] 10*3/uL [facility] (27154) blood lymphocytes automated count (number/volume) on 2017-08-19 Lymphocytes 4.2 10*3/uL (H) 0.85 - 4.1 [facility] 10*3/uL [facility] (33452) blood leukocytes automated count (number/volume) on 2017-08-19 WBC (Leukocytes) 11.3 10*3/uL (H) 3.8 - 10.8 Via [facility] sti 10*3/uL [facility] (87339) blood hematocrit (volume fraction) on 2017-08-19 Hematocrit (HCT) 39 % (no code) 39 - 51 % Via [facility] (23582) blood erythrocytes automated count (number/volume) on 2017-08-19 Erythrocytes 3.89 10*6/uL (L) 4.2 - 6.1 [facility] (RBC) 10*6/uL [facility] (33224) bacteria detection in urine sediment by light microscopy on 2017-08-19 Urine, bacteria NONE (no code) [facility] in sediment [facility] (41541) automated urine sediment leukocyte count by microscopy (number/high power field) on 2017-08-19 Urine, NONE (no code) [facility] sediment erythrocyte count by microscopy (number/high power field) on 2017-08-19 Urine, NONE (no code) [facility] erythrocytes in [facility] sediment [facility] (32442) automated erythrocyte mean corpuscular volume on 2017-08-19 MCV 99 fL (no code) 80 - [address] [facility] (11487) automated erythrocyte mean corpuscular hemoglobin concentration measurement (mass/volume) on 2017-08-19 MCHC 36 g/dL (no code) 32 - 36 g/dL [facility] (98568) automated erythrocyte mean corpuscular hemoglobin (mass per erythrocyte) on 2017-08-19 MCH 36 pg (H) 27 - [address] [facility] (84950) automated erythrocyte distribution width ratio on 2017-08-19 RDW-CA 12.9 % (no code) 11 - 15 % [facility] (73320) automated eosinophil count on 2017-08-19 Eosinophils 0.2 10*3/uL (no code) 0.05 - 1.5 [facility] 10*3/uL [facility] (12829) automated blood platelet mean volume measurement on 2017-08-19 Platelet mean 9.7 fL (no code) 7.2 - 11.7 fL Via [facility] (PMV) [facility] (63773) automated blood platelet count (count/volume) on 2017-08-19 Platelets 282 10*3/uL (no code) 150 - 400 [facility] 10*3/uL [facility] (21182) automated blood neutrophils/100 leukocytes on 2017-08-19 Neutrophils/100 48 % (no code) 40 - 60 % Via [facility] (40146) automated blood lymphocytes/100 leukocytes on 2017-08-19 Lymphocytes/100 37 % (no code) 20 - 40 % Via [facility] (45608) automated blood eosinophils/100 leukocytes on 2017-08-19 Eosinophils/100 2 % (no code) 1 - 4 % Via [facility] (12899) automated blood basophils/100 leukocytes on 2017-08-19 Basophils/100 1 % (no code) 0.5 - 1 % Via [facility] (63927) automated blood basophil count (count/volume) on 2017-08-19 Basophils 0.1 10*3/uL (no code) 0 - 0.2 10*3/uL Via [facility] (89042) Vital Signs Vital Sign Value Interpretation Reference Date Time Care [facility] ider Facility (Normalized) (Normalized) Range Body height 167.64 cm (no code) cm 11-27-2013 HUMA ROWE [facility] 12:19-[address] [place] [address] (44248) Body height 167.64 cm (no code) cm 06-02-2013 [facility] 13:36-[id number] [place] [address] (08215) Body height 167.64 cm (no code) cm 04-17-2013 [facility] 11[facility] 67175 [facility] ([id number]) Body 98.1 [degF] (no code) 97.8 - 99.0 02-16-2014 HUMA BHAT [facility] Temperature [degF] 11:31-[address] [place] [address] ([id number]) Body 98 [degF] (no code) 97.8 - 99.0 11-27-2013 HUMA ROWE [facility] temperature [degF] 12:19-[id number] [place] [address] ([id number]) Body 97.5 [degF] (no code) 97.8 - 99.0 09-18-2013 HUMA BHAT [facility] Temperature [degF] 14:40-[id number] [place] [address] (32283) Body 96.9 [degF] (no code) 97.8 - 99.0 07-25-2013 HUMA BHAT [facility] Temperature [degF] 18:53-0400 48767 [facility] (07723) Body 98.7 [degF] (no code) 97.8 - 99.0 06-02-2013 [facility] ESTHER [facility] temperature [degF] 13:36-0400 78557 [facility] (60112) Body 98 [degF] (no code) 97.8 - 99.0 04-17-2013 APRIL Menon [facility] temperature [degF] 11:34-0400 62386 [facility] (43820) Body weight 53.98 kg (no code) kg 02-16-2014 HUMA [facility] 11:31-[address] [place] [address] (22114) Body weight 55.34 kg (no code) kg 11-27-2013 [facility] 12:19-[address] [place] [address] ([id number]) Body weight 52.84 kg (no code) kg 09-18-2013 [facility] 14:40-[id number] [place] [address] ([id number]) Body weight 54.93 kg (no code) kg 07-25-2013 [facility] 18:53-[id number] [place] [address] (05227) Body weight 55.34 kg (no code) kg 06-02-2013 [facility] 13:36-0400 67924 [facility] (21601) Body weight 58.2 kg (no code) kg 04-17-2013 APRIL [facility] 11:340400 [address] [place] [address] (74395) Height 157.48 cm (no code) cm 02-16-2014 [facility] 11:31-[id number] [place] [address] ([id number]) Height 167.64 cm (no code) cm 09-18-2013 [facility] 14:40-[id number] [place] [address] (06301) Height 167.64 cm (no code) cm 07-25-2013 HUMA LOZOYA [facility] 18:53-0400 78949 [facility] ([id number]) Interventions No Information Plan of Treatment Normalized Care Care Detail Care Activity Date Care Provider F acility Activity Patient Education no information no information HUMA LOZOYA [phone] [facility] ([id number]) Patient referral no information no information HUMA LOZOYA [phone] [facility] (31585) Goals Patient Goal Desired Goal no information [...] Sex Assigned At no information F emale Tobacco smoking status Tobacco smoking status 07-02-2019 - Smokes tobacco daily NHIS NHIS (finding) no information no information 07-02-2019 Current Everyda y Smoker Functional Status The data below is from [...] is from unstructured sourcesNo Mental Status Information AvailableNo Mental Status Information AvailableNo Mental Status Information AvailableNo Mental Status Information AvailableNo Mental Status Information Available Encounters Encounter Normalized Encounter Encounter Diagnosis Care Provi nasima Organization Date Type 09-05-2018 [facility] Pain in right ankle HUMA YOUNG RTER (no [facility] - and joints of right phone) (no phone) 09-05-2018 foot - 09-05-2018 07-14-2019 Emergency department no information RAUL Zamudio (no [facility] - patient visit phone) [facility] 07-14-2019 [facility] (no phone) (no phone) 07-03-2019 Emergency department no information (no phone) [facility] - patient visit Hospital (no phone) 07-03-2019 07-03-2019 Emergency department no information AMBER MCKEON DO (no [facility] - patient visit phone) [facility] 07-03-2019 [facility] (no phone) LI (no phone) Jyoti LOPEZ [facility] W[facility] (no phone) LI LOPEZ [facility]READ WIND[facility] (no phone) LI LOPEZ [facility] (no phone) 07-02-2019 Emergency department no information (no phone) [facility] - patient visit Hospital (no phone) 07-02-2019 07-02-2019 Emergency department no information AMBER MCKEON DO (no [facility] - patient visit phone) [facility] 07-02-2019 TH[facility] WINDER (no phone) LI (no phone) Jyoti LOPEZ THREAD WINDER (no phone) LI LOPEZ THREAD WINDER (no phone) LI LOPEZ [facility] (no phone) 12-22-2018 Emergency department no information (no phone) [facility] - patient visit Hospital (no phone) 12-22-2018 12-22-2018 Emergency department no information TANNA LOPEZ MD (no [facility] visit phone) [facility] 12-22-2018 (no phone) 10-12-2018 Emergency department no information MALIA JONES no organization name - patient visit Work Phone: 10-12-2018 MALIA JOLLY 10-12-2018 Emergency department no information MALIA JONES [facility] - patient visit (no phone) [facility] 10-12-2018 (no phone) 10-11-2018 Emergency department no information LI ARREGUIN no organization name - patient visit Work Phone: 10-11-2018 [place] LOPEZ 10-11-2018 Emergency department no information LI EVERETT (no [facility] - patient visit phone) [facility] 10-11-2018 (no phone) 09-09-2018 Emergency department no information no name no organization name - patient visit 09-09-2018 09-09-2018 Emergency department no information TANNA LOPEZ MD (no [facility] - patient visit phone) [facility] 09-09-2018 (no phone) 07-13-2018 Emergency department no information no name no organization name - patient visit 07-13-2018 07-13-2018 Emergency department no information JENIFER BERNOT A WATER PROOFER (no [facility] - patient visit phone) [facility] 07-13-2018 (no phone) 06-30-2018 Emergency department no information AMBER K MIKE DO (no [facility] - patient visit phone) [facility] 06-30-2018 THREAD WIND[facility] (no phone) [place] (no phone) Jyoti LOPEZ [facility] W[facility] (no phone) AMBER K MIKE DO (no phone) AMBER K MIKE DO (no phone) LI KIRBYES [facility]READ [facility] (no phone) AMBER Zapata MIKE DO (no phone) [facility] Jyoti LAUREL THREAD WIND[facility] (no phone) AMBER K MIKE DO (no phone) LI Montes LOPEZ THREAD WINDER (no phone) 06-29-2018 Emergency department no information no name no organization name - patient visit 06-30-2018 06-29-2018 Emergency department no information JENIFER BERNOT A WATER PROOFER (no [facility] - patient visit phone) [facility] 06-29-2018 (no phone) 10-12-2017 Emergency department no information no name no organization name - patient visit 10-12-2017 10-12-2017 Emergency department no information JENIFER BERNOT A WATER PROOFER (no [facility] - patient visit phone) [facility] 10-12-2017 (no phone) 10-10-2017 Emergency department no information JENIFER BERNOT ( no no organization name - patient visit phone) 10-10-2017 10-10-2017 Emergency department no information JENIFER BERNOT A WATER PROOFER (no [facility] - patient visit phone) [facility] 10-10-2017 (no phone) 09-13-2017 Emergency department no information AMBER Ott k no organization name - patient visit Phone: 09-13-2017 AMBER MCKEON 09-13-2017 Emergency department no information AMBER MCKEON DO (no [facility] - patient visit phone) [facility] 09-13-2017 (no phone) 09-13-2017 Emergency department no information LI Montes APRN, BA RODRÍGUEZ no organization name - patient visit Work Phone: 09-13-2017 LI LOPEZ LI LOPEZ 09-13-2017 Emergency department no information LI PHANN (no [facility] - patient visit phone) [facility] 09-13-2017 (no phone) 08-19-2017 Emergency department no information LI Montes APRN, BA RODRÍGUEZ no organization name - patient visit Work Phone: 08-19-2017 LI LOPEZ LI LOPEZ 08-19-2017 Emergency department no information LI EVERETT (no [facility] - patient visit phone) [facility] 08-19-2017 (no phone) 06-08-2017 Emergency department no information MELISSA ALCARAZ IN [place] [facility] - patient visit (no phone) [facility] 06-08-2017 (no phone) 05-29-2017 Emergency department no information SHAHANA MARTÍNEZ (no [facility] - patient visit phone) [facility] 05-29-2017 (no phone) 05-21-2017 Emergency department no information LI PHANN (no [facility] - patient visit phone) [facility] 05-21-2017 (no phone) 05-19-2017 Emergency department no information HNOEY LANZA MD [facility] - patient visit (no phone) [facility] 05-19-2017 (no phone) 05-11-2017 Emergency department no information MELISSA Dubose [place]ART IN [place] [facility] - patient visit (no phone) [facility] 05-11-2017 (no phone) 04-06-2017 Emergency department no information MALIA SHELLN [facility] - patient visit (no phone) [facility] 04-06-2017 (no phone) 07-11-2016 Emergency department no information MELISSA GREEN [facility] - patient visit (no phone) [facility] 07-11-2016 (no phone) 03-03-2016 Emergency department no information LI EVERETT (no [facility] - patient visit phone) [facility] 03-03-2016 (no phone) 05-02-2015 Evaluation and no information FINESSE DESAI MD (n o [facility] - management of phone) [facility] 05-04-2015 inpatient (no phone) 11-20-2013 Evaluation and no information no name [...] information no name no organizat ion name 07-03-2019 Patient encounter no information LI LOPEZ APRN (no [facility] procedure phone) [facility] (no phone) 07-02-2019 Patient encounter no information LI LOPEZ APRN (no [facility] procedure phone) [facility] (no phone) 07-01-2019 Patient encounter no information MARISEL CRUZ (no [facility] phone) of [facility] nt (no 07-01-2019 phone) 06-24-2019 Patient encounter no information Alfredo Murray (no jermaine ne) [facility] procedure PAYTONY SHAKEEL (no of [facility] (no 06-24-2019 phone) ZHOU LEOSER phone) (no phone) 01-02-2019 Patient encounter no [...] encounter no information HUMA LOZOYA (n o [facility] phone) (no phone) 10-05-2018 Telephone encounter no information HUMA LOZOYA (n o [facility] - phone) (no phone) 10-05-2018 - 10-05-2018 09-30-2018 Telephone encounter Primary HUMA LOZOYA (no [facility] - osteoarthritis, right phone) (no phon e) 09-30-2018 ankle and foot - 09-30-2018 Medical Equipment The data below is from unstructured sourcesNo Medical Equipment Information availableNo Medical Equipment Information availableNo Medical Equipment Information availableNo Medical Equipment Information a vailableNo Medical Equipment Information available Payers Normalized Payer Value Unknown no information ([id number]) Private Health Insurance no information Medicare no information ([id number]) Evaluation note Note Type Note Facility Evaluation No Assessments Information Available A scension note [facility] ([id number]) Advance Directives Directive Response Recor ded Date/Time Advance Directives No 3:37pm Health Care Power of Boilermaker Apprentice No 03/03/16 3:37pm Organ Donor No 03/03/16 3:37pm Resuscitation Status Full Code 03/03/16 3:37pm Directive Response Recor ded Date/Time Advance Directives No 5:28pm Health Care Power of Boilermaker Apprentice No 05/02/15 5:28pm Organ Donor No 05/02/15 3:18pm Resuscitation Status Full Code 05/02/15 5:28pm Directive Response Recor ded Date/Time Advance Directives No 4:26pm Health Care Power of Boilermaker Apprentice No 07/11/16 4:26pm Organ Donor No 07/11/16 4:26pm Resuscitation Status Full Code 07/11/16 4:26pm Directive Response Recor ded Date/Time Advance Directives Yes 0 10/02/13 5:44pm Health Care Power of Boilermaker Apprentice No 10/02/13 5:44pm Organ Donor No 10/02/13 5:44pm Resuscitation Status Full Code 10/02/13 5:44pm Directive Response Recor ded Date/Time Advance Directives No 11:30pm Health Care Power of Boilermaker Apprentice No 11/19/13 11:30pm Organ Donor No 11/19/13 8:57pm Resuscitation Status Full Code 11/19/13 11:30pm Directive Response Recor ded Date Advance Directives N 01/20 12:15pm Health Care Power of Boilermaker Apprentice N 07/20/12 12:15pm Organ Donor N 07/20/12 1 2:15pm Directive Response Recor ded Date/Time Advance Directives No 6:47pm Health Care Power of Boilermaker Apprentice No 04/06/17 6:47pm Organ Donor No 04/06/17 6:47pm Resuscitation Status Full Code 04/06/17 6:47pm Directive Response Recor ded Date/Time Advance Directives No 9:06pm Health Care Power of Boilermaker Apprentice No 05/21/17 9:06pm Organ Donor No 05/21/17 9:06pm Directive Response Recor ded Date/Time Advance Directives No 8:29pm Health Care Power of Boilermaker Apprentice No 06/08/17 8:29pm Organ Donor No 06/08/17 8:29pm Resuscitation Status Full Code 06/08/17 8:29pm Directive Response Recor ded Date/Time Advance Directives No 6:24pm Health Care Power of Boilermaker Apprentice No 08/19/17 6:24pm Organ Donor No 08/19/17 6:24pm Resuscitation Status Full Code 08/19/17 6:24pm Directive Response Recor ded Date/Time Advance Directives No 11:37am Health Care Power of Boilermaker Apprentice No 09/13/17 11:37am Organ Donor No 09/13/17 11:37am Directive Response Recor ded Date/Time Advance Directives No 11:37am Health Care Power of Boilermaker Apprentice No 09/13/17 11:37am Organ Donor No 09/13/17 11:37am Resuscitation Status Full Code 09/13/17 11:37am Directive Response Recor ded Date/Time Advance Directives No 12:17pm Health Care Power of Boilermaker Apprentice No 10/10/17 12:17pm Organ Donor No 10/10/17 12:17pm Resuscitation Status Full Code 10/10/17 12:17pm Directive Response Recor ded Date/Time Advance Directives No 3:30pm Health Care Power of Boilermaker Apprentice No 10/11/18 3:30pm Organ Donor No 10/11/18 3:30pm Advance Directive Response Recorded Date/Time Advance Directives No No [email or web address] 5:08pm Health Care Power of Boilermaker Apprentice No December 22, 2018 5:08pm Organ Donor No December 22, 2018 5:08pm Resuscitation Status Full Code December 22, 2018 5:08pm Advance Directive Response Recorded Date/Time Advance Directives No 2019 3:35pm Health Care Power of Boilermaker Apprentice No July 02, 2019 3:35pm Organ Donor No July 02, 2019 3:35pm Resuscitation Status Full Code July 02, 2019 3:35pm Advance Directive Response Recorded Date/Time Advance Directives No Ma y 2019 2:17pm Health Care Power of Boilermaker Apprentice No July 03, 2019 2:17pm Organ Donor No July 03, 2019 2:17pm Resuscitation Status Full Code July 03, 2019 2:17pm Discharge Instructions No hospital discharge instructions. Patient Instructions Physician Instructions New, Converted or Re-Newed RX: Transmitted to Pharmacy Goal/Follow Up Appt: Follow up with Ms Last at [facility] on Friday 05/05 at 3pm. [facility] will call you for a follow up appointment with Dr Lozoya. Patient Instructions: please take all medicines as prescribed. 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 [facility] to [facility] For: fever, shortness of breath, blood in sputum. Discharge Diet: No Restrictions Activity as Tolerated: Yes Care Plan Patient Instructions:: please take all medicines as prescribed. 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 Goal:: Follow up with Ms Last at [facility] on Friday 05/05at 3pm. [facility] will call you for a follow up [...] Visit Alcohol abuse Chief Complaint Substance Abuse Chief Complaint General Problems/Joe n Reason for Visit [id number] Chief Complaint Substance Abuse Reason for Visit [id number] Additional Source Comments This clinical document has been generated using [employer] software that has been certified by the Office of the National Coordinator for Health Information Technology (ONC 15.99.04.3023.Diam.31.00.0.092118) and the National Committee for Garment Looper (NCQA, as an eMeasure certified technology). FOR [...] BASED ON T HE PRIMARY CLINICAL RECORDS. [employer]. provides no warranty or guara ntee of [...] BELOW FOR UNRECOGNIZED SECTION REASON FOR VISIT [id number]
--- OUTSIDE RECORDS SUMMARY | 2019-07-14 18:44 | XMS REPORT ---
Author Author Madina LOZOYA Organization [facility] Address [address] [place] [address] Care Team Providers [employer] Name Role Phone HUMA LOZOYA Unavailable PROBLEMS Type Condition ICD9-CM Code KBJ90-TD Code Onset Dates Condition S tatus SNOMED Code Problem Asthma J45.909 Active 284666842 Problem Alcoholism F10.20 Active 0911959 Problem Arthritis M19.90 Active 1241121 Problem Other chronic pain G89.29 Active 8 1556898 Problem Bipolar disorder F31.9 Active 137 22373 Problem Closed fracture of shaft of right fibula, unspecified fracture morphology, initial encounter S82.401A Active 38228848 Problem Major depressive disorder, single episode F32.9 Active 40878062 Problem Arthropathy, unspecified M12.9 Activ e [id number] ALLERGIES No Information ENCOUNTERS Encounter Location Date Diagnosis [place] [address] [facility] [id number] [address] [place] [phone] June, [facility] [address] [place] [id number] [place] [id number] Apr, [facility] [address] [place] [address] [id number] [place] [address] Apr, Cough R05 and Hyperinflation of lungs R09.89 [facility] [address] [facility] [id number] [address] [place] [address] Dec, Arthritis M19.90 ; Alcoholis m F10.20 ; Encounter for immunization Z23 and Breast cancer screening by mammogram Z12.31 [facility] [address] [facility] [id number] [address] [place] [address] Sep, [place] [address] [facility] [id number] [address] [place] [phone] Sep, Arthropathy of right ankle M 19.071 [facility] [address] [id number] [address] [place] [phone] Aug, Pain in right ankle and join ts of right foot M25.571 and Other chronic pain G89.29 [facility] [address] [id number] [address] [place] [phone] Jul, [facility] [address] [facility] [id number] [address] [place] [address] Apr, [facility] [address] [id number] [address] [place] [phone] Apr, Injury of right ankle, initi al encounter S99.911A and Encounter for immunization Z23 [facility] [address] [facility] [id number] [address] [place] [phone] Dec, [place] [address] [facility] [id number] [address] [place] [address] Nov, Pain in right ankle and join ts of right foot M25.571 ; Other chronic pain G89.29 and Post-traumatic arthritis of right ankle M19.171 [place] [address] [facility] [id number] [address] [place] [phone] Oct, Arthritis M19.90 [place] [address] [facility] [id number] [address] [place] [address] Aug, Arthritis M19.90 [place] [address] [facility] [id number] [address] [place] [phone] Aug, [place] [address] [id number] [address] [place] [address] Jul, [place] [address] [facility] [id number] [address] [place] [phone] June, Arthropathy, unspecified M12 .9 [facility] [address] [facility] [id number] [address] [place] [address] May, Asthma J45.909 and Major dep ressive disorder, single episode F32.9 [facility] [address] [id number] [address] [place] [address] Mar, Closed fracture of shaft of right fibula, unspecified fracture morphology, initial encounter S82.401A [facility] [address] [id number] [address] [place] [address] Feb, [facility] [address] [facility] [id number] [address] [place] [phone] Feb, [facility] [address] [id number] [address] [place] [phone] Nov, [facility] [address] [facility] [id number] [address] [place] [address] Nov, Bipolar disorder F31.9 ; Enc ounter for immunization Z23 and Asthma J45.909 [facility] [address] [facility] [id number] [address] [place] [phone] Aug, [facility] [address] [facility] [id number] [address] [place] [address] May, [facility] [address] [facility] [id number] [address] [place] [phone] Apr, [facility] [address] [facility] [id number] [address] [place] [phone] Apr, [facility] [address] [facility] [id number] [address] [place] [phone] Apr, URI (upper respiratory infec tion) J06.9 and Bipolar disorder F31.9 [facility] [address] [facility] [id number] [address] [place] [address] Feb, [facility] [address] [facility] [id number] [address] [place] [address] Feb, Asthma J45.909 and Alcoholis m F10.20 [facility] [address] [facility] [id number] [address] [place] [phone] Jan, [facility] [address] [facility] [id number] [address] [place] [phone] Jan, [facility] [address] [facility] [id number] [address] [place] [phone] Jan, [facility] [address] [facility] [id number] [address] [place] [address] Nov, Alcoholism F10.20 and Anxiet y F41.9 [facility] [address] [id number] [address] [place] [phone] Jul, Anxiety 300.00 and Arthropat hy 716.90 [facility] [address] [facility] [id number] [address] [place] [address] Jul, [facility] [address] [facility] [id number] [address] [place] [phone] Jul, Anxiety state 300.00 [facility] [address] [id number] [address] [place] [phone] May, [facility] [address] [facility] [id number] [address] [place] [phone] May, [facility] [address] [facility] [id number] [address] [place] [phone] Apr, [facility] [address] [facility] [id number] [address] [place] [phone] Apr, [facility] [address] [facility] [id number] [address] [place] [phone] Mar, [facility] [address] [facility] [id number] [address] [place] [phone] Mar, [facility] [address] [facility] [id number] [address] [place] [phone] Feb, [facility] [address] [facility] [id number] [address] [place] [phone] Feb, [facility] [address] [facility] [id number] [address] [place] [phone] Feb, [facility] [address] [id number] [address] [place] [address], [place] [address] Feb, [facility] [address] [id number] [address] [place] [address], [place] [address] Jan, [facility] [address] [id number] [address] [place] [address], [place] [address] Jan, [facility] [address] [id number] [address] [place] [address], [place] [address] Jan, [facility] [address] [id number] [address] [place] [address], [place] [address] Jan, [facility] [address] [id number] [address] [place] [address], [place] [address] Nov, [facility] [address] [id number] [address] [place] [address], [place] [address] Nov, [facility] [address] [id number] [address] [place] [address], [place] [address] Nov, [facility] [address] [id number] [address] [place] [address], [place] [address] Nov, [facility] [address] [id number] [address] [place] [address], [place] [address] Nov, [facility] [address] [id number] [address] [place] [address], [place] [address] Nov, [facility] [address] [id number] [address] [place] [address], [place] [address] Nov, [facility] [address] [id number] [address] [place] [address], [place] [address] Nov, [facility] [address] [id number] [address] [place] [address], [place] [address] Nov, [facility] [address] [id number] [address] [place] [address], [place] [address] Nov, [facility] [address] [id number] [address] [place] [address], [place] [address] 13 Nov, 2013 [facility] [address] [id number] [address] [place] [address], [place] [address] 07 Nov, 2013 [facility] [address] [id number] [address] [place] [address], [place] [address] 07 Nov, 2013 [facility] [address] [id number] [address] [place] [address], [place] [address] 30 Sep, 2013 [facility] [address] [id number] [address] [place] [address], [place] [address] 30 Sep, 2013 [facility] [address] [id number] [address] [place] [address], [place] [address] 26 Sep, 2013 [facility] [address] [id number] [address] [place] [address], [place] [address] 26 Sep, 2013 [facility] [address] [id number] [address] [place] [address], [place] [address] 08 Sep, 2013 [facility] [address] [id number] [address] [place] [address], [place] [address] 08 Sep, 2013 [facility] [address] [id number] [address] [place] [address], [place] [address] 04 Sep, 2013 [facility] [address] [id number] [address] [place] [address], [place] [address] 04 Sep, 2013 [facility] [address] [id number] [address] [place] [address], [place] [address] 04 Sep, 2013 [facility] [address] [id number] [address] [place] [address], [place] [address] 04 Sep, 2013 [facility] [address] [id number] [address] [place] [address], [place] [address] 04 Sep, 2013 [facility] [address] [id number] [address] [place] [address], [place] [address] 04 Oct, 2013 [facility] [address] [id number] [address] [place] [address], [place] [address] Sep, [facility] [address] [id number] [facility] [place] [address] Sep, [facility] [address] [id number] [facility] [place] [address] Sep, [facility] [address] [id number] [facility] [place] [address] Sep, [facility] [address] [id number] [address] [place] [address], [place] [address] Sep, [facility] [address] [id number] [address] [place] [address], [place] [address] Sep, [facility] [address] [id number] [address] [place] [address], [place] [address] Sep, [facility] [address] [id number] [address] [place] [address], [place] [address] Sep, [facility] [address] [id number] [address] [place] [address], [place] [address] Aug, [facility] [address] [id number] [address] [place] [address], [place] [address] Aug, [facility] [address] [id number] [address] [place] [address], [place] [address] Aug, [facility] [address] [id number] [address] [place] [address], [place] [address] Aug, [facility] [address] [id number] [address] [place] [address], [place] [address] Jul, [facility] [address] [id number] [address] [place] [address], [place] [address] Jul, [facility] [address] [id number] [address] [place] [address], [place] [address] Jul, [facility] [address] [id number] [address] [place] [address], [place] [address] Jul, [facility] [address] [id number] [address] [place] [address], [place] [address] Jul, [facility] [address] [id number] [address] [place] [address], [place] [address] Jul, [facility] [address] [id number] [address] [place] [address], [place] [address] June, [facility] [address] [id number] [address] [place] [address], [place] [address] June, [facility] [address] [id number] [address] [place] [address], [place] [address] June, [facility] [address] [id number] [address] [place] [address], [place] [address] June, [facility] [address] [id number] [address] [place] [address], [place] [address] June, [facility] [address] [id number] [address] [place] [address], [place] [address] June, [facility] [address] [id number] [address] [place] [address], [place] [address] May, [facility] [address] [id number] [address] [place] [address], [place] [address] May, [facility] [address] [id number] [address] [place] [address], [place] [address] May, [facility] [address] [id number] [address] [place] [address], [place] [address] May, [facility] [address] [id number] [address] [place] [address], [place] [address] May, [facility] [address] [id number] [address] [place] [address], [place] [address] May, [facility] [address] [id number] [address] [place] [address], [place] [address] May, [facility] [address] [id number] [address] [place] [address], [place] [address] May, [facility] [address] [id number] [facility] [place] [address] May, [facility] [address] [id number] [facility] [place] [address] May, [facility] [address] [id number] [facility] [place] [address] Apr, [facility] [address] [id number] [facility] [place] [address] Apr, [facility] [address] [id number] [facility] [place] [address] 10 Apr, 2013 [facility] [address] [id number] [address] [place] [address], [place] [address] 10 Apr, 2013 [facility] [address] [id number] [address] [place] [address], [place] [address] Apr, [facility] [address] [id number] [address] [place] [address], [place] [address] Apr, [facility] [address] [id number] [address] [place] [address], [place] [address] Apr, [facility] [address] [id number] [address] [place] [address], [place] [address] Apr, [facility] [address] [id number] [address] [place] [address], [place] [address] Apr, [facility] [address] [id number] [address] [place] [address], [place] [address] Apr, [facility] [address] [id number] [address] [place] [address], [place] [address] Apr, [facility] [address] [id number] [address] [place] [address], [place] [address] Apr, [facility] [address] [id number] [address] [place] [address], [place] [address] Mar, [facility] [address] [id number] [address] [place] [address], [place] [address] Mar, [facility] [address] [id number] [address] [place] [address], [place] [address] Mar, [facility] [address] [id number] [address] [place] [address], [place] [address] Mar, [facility] [address] [id number] [address] [place] [address], [place] [address] Feb, [facility] [address] [id number] [address] [place] [address], [place] [address] Feb, [facility] [address] [id number] [address] [place] [address], [place] [address] Feb, [facility] [address] [id number] [address] [place] [address], [place] [address] Feb, [facility] [address] [id number] [address] [place] [address], [place] [address] Feb, [facility] [address] [id number] [address] [place] [address], [place] [address] Feb, [facility] [address] [id number] [address] [place] [address], [place] [address] Feb, [facility] [address] [id number] [address] [place] [address], [place] [address] Feb, [facility] [address] [id number] [address] [place] [address], [place] [address] Feb, [facility] [address] [id number] [address] [place] [address], [place] [address] Feb, [facility] [address] [id number] [address] [place] [address], [place] [address] Jan, [facility] [address] [id number] [address] [place] [address], [place] [address] Jan, [facility] [address] [id number] [address] [place] [address], [place] [address] Jan, [facility] [address] [id number] [address] [place] [address], [place] [address] Jan, [facility] [address] [id number] [address] [place] [address], [place] [address] Jan, [facility] [address] [id number] [address] [place] [address], [place] [address] Jan, [facility] [address] [id number] [address] [place] [address], [place] [address] Jan, [facility] [address] [id number] [address] [place] [address], [place] [address] Jan, [facility] [address] [id number] [address] [place] [address], [place] [address] Jan, [facility] [address] [id number] [address] [place] [address], [place] [address] Dec, [facility] [address] [id number] [address] [place] [address], [place] [address] Dec, [facility] [address] [id number] [address] [place] [address], [place] [address] Dec, [facility] [address] [id number] [address] [place] [address], [place] [address] Dec, [facility] [address] [id number] [address] [place] [address], [place] [address] Nov, [facility] [address] [id number] [address] [place] [address], [place] [address] Nov, [facility] [address] [id number] [address] [place] [address], [place] [address] Nov, [facility] [address] [id number] [address] [place] [address], [place] [address] Nov, [facility] [address] [id number] [address] [place] [address], [place] [address] Nov, [facility] [address] [id number] [address] [place] [address], [place] [address] Nov, [facility] [address] [id number] [address] [place] [address], [place] [address] Oct, [facility] [address] [id number] [address] [place] [address], [place] [address] Oct, [facility] [address] [id number] [address] [place] [address], [place] [address] Sep, [facility] [address] [id number] [address] [place] [address], [place] [address] Sep, [facility] [address] [id number] [address] [place] [address], [place] [address] Sep, [facility] [address] [id number] [address] [place] [address], [place] [address] Sep, [facility] [address] [id number] [address] [place] [address], [place] [address] Aug, [facility] [address] [id number] [address] [place] [address], [place] [address] Aug, [facility] [address] [id number] [address] [place] [address], [place] [address] Aug, [facility] [address] [id number] [address] [place] [address], [place] [address] Jul, [facility] [address] [id number] [address] [place] [address], [place] [address] Jul, [facility] [address] [id number] [address] [place] [address], [place] [address] Jul, [facility] [address] [id number] [address] [place] [address], [place] [address] Jul, [facility] [address] [id number] [address] [place] [address], [place] [address] June, [facility] [address] [id number] [address] [place] [address], [place] [address] June, [facility] [address] [id number] [address] [place] [address], [place] [address] 30 May, 2012 [facility] [address] [id number] [address] [place] [address], [place] [address] 03 May, 2012 [facility] [address] [id number] [address] [place] [address], [place] [address] 29 Apr, 2012 [facility] [address] [id number] [address] [place] [address], [place] [address] Apr, [facility] [address] [id number] [address] [place] [address], [place] [address] 18 Mar, 2012 [facility] [address] [id number] [address] [place] [address], [place] [address] Mar, [facility] [address] [id number] [address] [place] [address], [place] [address] 31 Feb, 2012 [facility] [address] [id number] [address] [place] [address], [place] [address] 24 Feb, 2012 [facility] [address] [id number] [address] [place] [address], [place] [address] 18 Feb, 2012 [facility] [address] [id number] [address] [place] [address], [place] [address] 17 Feb, 2012 [facility] [address] [id number] [address] [place] [address], [place] [address] 17 Feb, 2012 [facility] [address] [id number] [address] [place] [address], [place] [address] 16 Feb, 2012 [facility] [address] [id number] [address] [place] [address], [place] [address] 16 Feb, 2012 [facility] [address] [id number] [address] [place] [address], [place] [address] 14 Feb, 2012 [facility] [address] [id number] [address] [place] [address], [place] [address] 11 Feb, 2012 [facility] [address] [id number] [address] [place] [address], [place] [address] Jan, [facility] [address] [id number] [address] [place] [address], [place] [id number] Jan, [facility] [address] [id number] [address] [place] [address], [place] [id number] Jan, [facility] [address] [id number] [address] [place] [address], [place] [id number] Jan, [facility] [address] [id number] [address] [place] [address], [place] [id number] Dec, [facility] [address] [id number] [address] [place] [address], [place] [id number] Dec, [facility] [address] [id number] [address] [place] [address], [place] [id number] Dec, [facility] [address] [id number] [address] [place] [address], [place] [id number] Dec, [facility] [address] [id number] [address] [place] [address], [place] [id number] Oct, [facility] [address] [id number] [address] [place] [address], [place] [id number] Sep, [facility] [address] [id number] [address] [place] [address], [place] [address] Sep, [facility] [address] [id number] [address] [place] [address], [place] [id number] Aug, [facility] [address] [id number] [address] [place] [address], [place] [id number] Jul, [facility] [address] [id number] [address] [place] [address], [place] [id number] June, [facility] [address] [id number] [address] [place] [address], [place] [id number] June, [facility] [address] [id number] [address] [place] [address], [place] [id number] May, [facility] [address] [id number] [address] [place] [id number] Apr, [facility] [address] [id number] [address] [place] [id number] Mar, [facility] [address] [facility] [id number] [address] [place] [id number] Mar, [facility] [address] [facility] [id number] [address] [place] [id number] Feb, [facility] [address] [facility] [id number] [address] [place] [id number] Dec, [facility] [address] [facility] [id number] [address] [place] [id number] Nov, [facility] [address] [facility] [id number] [address] [place] [id number] Sep, [facility] [address] [facility] [id number] [address] [place] [id number] Aug, IMMUNIZATIONS No Known Immunizations SOCIAL HISTORY [...]
--- OUTSIDE RECORDS SUMMARY | 2019-07-14 18:44 | XMS REPORT ---
Author Author Madina LOZOYA Organization [facility] Address [address] [place] [address] Care Team Providers Care Field Reporter Name Role Phone HUMA LOZOYA Unavailable PROBLEMS Type Condition ICD9-CM Code SOD46-IJ Code Onset Dates Condition S tatus SNOMED Code Problem Asthma J45.909 Active 943890778 Problem Alcoholism F10.20 Active 0877882 Problem Arthritis M19.90 Active 4879981 Problem Other chronic pain G89.29 Active 8 0309482 Problem Bipolar disorder F31.9 Active 137 72279 Problem Closed fracture of shaft of right fibula, unspecified fracture morphology, initial encounter S82.401A Active 71682525 Problem Major depressive disorder, single episode F32.9 Active 73655268 Problem Arthropathy, unspecified M12.9 Activ e [id number] ALLERGIES No Information ENCOUNTERS Encounter Location Date Diagnosis [place] [id number] [facility] [id number] [address] [place] [address] June, [facility] [address] [place] [id number] [place] [address]85 [address] Apr, [facility] [address] [place] [id number] [place] [address] 6625 [address] Apr, Cough R05 and Hyperinflation of lungs R09.89 [facility] [address] [facility] [id number] [address] [place] [address] Dec, Arthritis M19.90 ; Alcoholis m F10.20 ; Encounter for immunization Z23 and Breast cancer screening by mammogram Z12.31 [facility] [address] [facility] [id number] [address] [place] [address] Sep, [place] [address] [facility] [id number] [address] [place] [address] Sep, Arthropathy of right ankle M 19.071 [facility] [address] [id number] [address] [place] [address] Aug, Pain in right ankle and join ts of right foot M25.571 and Other chronic pain G89.29 [facility] [address] [id number] [address] [place] [address] Jul, [facility] [address] [facility] [id number] [address] [place] [address] Apr, [facility] [address] [id number] [address] [place] [address] Apr, Injury of right ankle, initi al encounter S99.911A and Encounter for immunization Z23 [facility] [address] [facility] [id number] [address] [place] [address] Dec, [place] [address] [facility] [id number] [address] [place] [address] Nov, Pain in right ankle and join ts of right foot M25.571 ; Other chronic pain G89.29 and Post-traumatic arthritis of right ankle M19.171 [place] [address] [facility] [id number] [address] [place] [address] Oct, Arthritis M19.90 [place] [address] [facility] [id number] [address] [place] [address] Aug, Arthritis M19.90 [place] [address] [facility] [id number] [address] [place] [address] Aug, [place] [address] [id number] [address] [place] [address] Jul, [place] [address] [facility] [id number] [address] [place] [address] June, Arthropathy, unspecified M12 .9 [facility] [address] [facility] [id number] [address] [place] [address] May, Asthma J45.909 and Major dep ressive disorder, single episode F32.9 [facility] [address] [id number] [address] [place] [address] Mar, Closed fracture of shaft of right fibula, unspecified fracture morphology, initial encounter S82.401A [facility] [address] [id number] [address] [place] [address] Feb, [facility] [address] [facility] [id number] [address] [place] [address] Feb, [facility] [address] [id number] [address] [place] [address] Nov, [facility] [address] [facility] [id number] [address] [place] [address] Nov, Bipolar disorder F31.9 ; Enc ounter for immunization Z23 and Asthma J45.909 [facility] [address] [facility] [id number] [address] [place] [address] Aug, [facility] [address] [facility] [id number] [address] [place] [address] May, [facility] [address] [facility] [id number] [address] [place] [address] Apr, [facility] [address] [facility] [id number] [address] [place] [address] Apr, [facility] [address] [facility] [id number] [address] [place] [address] Apr, URI (upper respiratory infec tion) J06.9 and Bipolar disorder F31.9 [facility] [address] [facility] [id number] [address] [place] [address] Feb, [facility] [address] [facility] [id number] [address] [place] [address] Feb, Asthma J45.909 and Alcoholis m F10.20 [facility] [address] [facility] [id number] [address] [place] [address] Jan, [facility] [address] [facility] [id number] [address] [place] [address] Jan, [facility] [address] [facility] [id number] [address] [place] [address] Jan, [facility] [address] [facility] [id number] [address] [place] [address] Nov, Alcoholism F10.20 and Anxiet y F41.9 [facility] [address] [id number] [address] [place] [address] Jul, Anxiety 300.00 and Arthropat hy 716.90 [facility] [address] [facility] [id number] [address] [place] [address] Jul, [facility] [address] [facility] [id number] [address] [place] [address] Jul, Anxiety state 300.00 [facility] [address] [id number] [address] [place] [address] May, [facility] [address] [facility] [id number] [address] [place] [address] May, [facility] [address] [facility] [id number] [address] [place] [address] Apr, [facility] [address] [facility] [id number] [address] [place] [address] Apr, [facility] [address] [facility] [id number] [address] [place] [address] Mar, [facility] [address] [facility] [id number] [address] [place] [address] Mar, [facility] [address] [facility] [id number] [address] [place] [address] Feb, [facility] [address] [facility] [id number] [address] [place] [address] Feb, [facility] [address] [facility] [id number] [address] [place] [address] Feb, [facility] [address] [id number] [address] [place] [address], [place] [address] Feb, [facility] [address] [id number] [address] [place] [address], [place] [address] Jan, [facility] [address] [id number] [address] [place] [address], [place] [address] Jan, [facility] [address] [id number] [address] [place] [address], [place] [address] Jan, [facility] [address] [id number] [address] [place] [address], [place] [address] Jan, [facility] [address] [id number] [address] [place] [address], [place] [address] Nov, [facility] [address] [id number] [address] [place] [address], [place] [address] Nov, [facility] [address] [id number] [address] [place] [address], [place] [address] Nov, [facility] [address] [id number] [address] [place] [address], [place] [address] Nov, [facility] [address] [id number] [address] [place] [address], [place] [address] Nov, [facility] [address] [id number] [address] [place] [address], [place] [address] Nov, [facility] [address] [id number] [address] [place] [address], [place] [address] Nov, [facility] [address] [id number] [address] [place] [address], [place] [address] Nov, [facility] [address] [id number] [address] [place] [address], [place] [address] Nov, [facility] [address] [id number] [address] [place] [address], [place] [address] Nov, [facility] [address] [id number] [address] [place] [address], [place] [address] 13 Nov, 2013 [facility] [address] [id number] [address] [place] [address], [place] [address] 07 Nov, 2013 [facility] [address] [id number] [address] [place] [address], [place] [address] 07 Nov, 2013 [facility] [address] [id number] [address] [place] [address], [place] [address] 30 Sep, 2013 [facility] [address] [id number] [address] [place] [address], [place] [address] 30 Sep, 2013 [facility] [address] [id number] [address] [place] [address], [place] [address] 26 Sep, 2013 [facility] [address] [id number] [address] [place] [address], [place] [address] 26 Sep, 2013 [facility] [address] [id number] [address] [place] [address], [place] [address] 08 Sep, 2013 [facility] [address] [id number] [address] [place] [address], [place] [address] 08 Sep, 2013 [facility] [address] [id number] [address] [place] [address], [place] [address] 04 Sep, 2013 [facility] [address] [id number] [address] [place] [address], [place] [address] 04 Sep, 2013 [facility] [address] [id number] [address] [place] [address], [place] [address] 04 Sep, 2013 [facility] [address] [id number] [address] [place] [address], [place] [address] 04 Sep, 2013 [facility] [address] [id number] [address] [place] [address], [place] [address] 04 Sep, 2013 [facility] [address] [id number] [address] [place] [address], [place] [address] 04 Oct, 2013 [facility] [address] [id number] [address] [place] [address], [place] [address] Sep, [facility] [address] [id number] [facility] [place] [address] Sep, [facility] [address] [id number] [facility] [place] [address] Sep, [facility] [address] [id number] [facility] [place] [address] Sep, [facility] [address] [id number] [address] [place] [address], [place] [address] Sep, [facility] [address] [id number] [address] [place] [address], [place] [address] Sep, [facility] [address] [id number] [address] [place] [address], [place] [address] Sep, [facility] [address] [id number] [address] [place] [address], [place] [address] Sep, [facility] [address] [id number] [address] [place] [address], [place] [address] Aug, [facility] [address] [id number] [address] [place] [address], [place] [address] Aug, [facility] [address] [id number] [address] [place] [address], [place] [address] Aug, [facility] [address] [id number] [address] [place] [address], [place] [address] Aug, [facility] [address] [id number] [address] [place] [address], [place] [address] Jul, [facility] [address] [id number] [address] [place] [address], [place] [address] Jul, [facility] [address] [id number] [address] [place] [address], [place] [address] Jul, [facility] [address] [id number] [address] [place] [address], [place] [address] Jul, [facility] [address] [id number] [address] [place] [address], [place] [address] Jul, [facility] [address] [id number] [address] [place] [address], [place] [address] Jul, [facility] [address] [id number] [address] [place] [address], [place] [address] June, [facility] [address] [id number] [address] [place] [address], [place] [address] June, [facility] [address] [id number] [address] [place] [address], [place] [address] June, [facility] [address] [id number] [address] [place] [address], [place] [address] June, [facility] [address] [id number] [address] [place] [address], [place] [address] June, [facility] [address] [id number] [address] [place] [address], [place] [address] June, [facility] [address] [id number] [address] [place] [address], [place] [address] May, [facility] [address] [id number] [address] [place] [address], [place] [address] May, [facility] [address] [id number] [address] [place] [address], [place] [address] May, [facility] [address] [id number] [address] [place] [address], [place] [address] May, [facility] [address] [id number] [address] [place] [address], [place] [address] May, [facility] [address] [id number] [address] [place] [address], [place] [address] May, [facility] [address] [id number] [address] [place] [address], [place] [address] May, [facility] [address] [id number] [address] [place] [address], [place] [address] May, [facility] [address] [id number] [facility] [place] [address] May, [facility] [address] [id number] [facility] [place] [address] May, [facility] [address] [id number] [facility] [place] [address] Apr, [facility] [address] [id number] [facility] [place] [address] Apr, [facility] [address] [id number] [facility] [place] [address] 10 Apr, 2013 [facility] [address] [id number] [address] [place] [address], [place] [address] 10 Apr, 2013 [facility] [address] [id number] [address] [place] [address], [place] [address] Apr, [facility] [address] [id number] [address] [place] [address], [place] [address] Apr, [facility] [address] [id number] [address] [place] [address], [place] [address] Apr, [facility] [address] [id number] [address] [place] [address], [place] [address] Apr, [facility] [address] [id number] [address] [place] [address], [place] [address] Apr, [facility] [address] [id number] [address] [place] [address], [place] [address] Apr, [facility] [address] [id number] [address] [place] [address], [place] [address] Apr, [facility] [address] [id number] [address] [place] [address], [place] [address] Apr, [facility] [address] [id number] [address] [place] [address], [place] [address] Mar, [facility] [address] [id number] [address] [place] [address], [place] [address] Mar, [facility] [address] [id number] [address] [place] [address], [place] [address] Mar, [facility] [address] [id number] [address] [place] [address], [place] [address] Mar, [facility] [address] [id number] [address] [place] [address], [place] [address] Feb, [facility] [address] [id number] [address] [place] [address], [place] [address] Feb, [facility] [address] [id number] [address] [place] [address], [place] [address] Feb, [facility] [address] [id number] [address] [place] [address], [place] [address] Feb, [facility] [address] [id number] [address] [place] [address], [place] [address] Feb, [facility] [address] [id number] [address] [place] [address], [place] [address] Feb, [facility] [address] [id number] [address] [place] [address], [place] [address] Feb, [facility] [address] [id number] [address] [place] [address], [place] [address] Feb, [facility] [address] [id number] [address] [place] [address], [place] [address] Feb, [facility] [address] [id number] [address] [place] [address], [place] [address] Feb, [facility] [address] [id number] [address] [place] [address], [place] [address] Jan, [facility] [address] [id number] [address] [place] [address], [place] [address] Jan, [facility] [address] [id number] [address] [place] [address], [place] [address] Jan, [facility] [address] [id number] [address] [place] [address], [place] [address] Jan, [facility] [address] [id number] [address] [place] [address], [place] [address] Jan, [facility] [address] [id number] [address] [place] [address], [place] [address] Jan, [facility] [address] [id number] [address] [place] [address], [place] [address] Jan, [facility] [address] [id number] [address] [place] [address], [place] [address] Jan, [facility] [address] [id number] [address] [place] [address], [place] [address] Jan, [facility] [address] [id number] [address] [place] [address], [place] [address] Dec, [facility] [address] [id number] [address] [place] [address], [place] [address] Dec, [facility] [address] [id number] [address] [place] [address], [place] [address] Dec, [facility] [address] [id number] [address] [place] [address], [place] [address] Dec, [facility] [address] [id number] [address] [place] [address], [place] [address] Nov, [facility] [address] [id number] [address] [place] [address], [place] [address] Nov, [facility] [address] [id number] [address] [place] [address], [place] [address] Nov, [facility] [address] [id number] [address] [place] [address], [place] [address] Nov, [facility] [address] [id number] [address] [place] [address], [place] [address] Nov, [facility] [address] [id number] [address] [place] [address], [place] [address] Nov, [facility] [address] [id number] [address] [place] [address], [place] [address] Oct, [facility] [address] [id number] [address] [place] [address], [place] [address] Oct, [facility] [address] [id number] [address] [place] [address], [place] [address] Sep, [facility] [address] [id number] [address] [place] [address], [place] [address] Sep, [facility] [address] [id number] [address] [place] [address], [place] [address] Sep, [facility] [address] [id number] [address] [place] [address], [place] [address] Sep, [facility] [address] [id number] [address] [place] [address], [place] [address] Aug, [facility] [address] [id number] [address] [place] [address], [place] [address] Aug, [facility] [address] [id number] [address] [place] [address], [place] [address] Aug, [facility] [address] [id number] [address] [place] [address], [place] [address] Jul, [facility] [address] [id number] [address] [place] [address], [place] [address] Jul, [facility] [address] [id number] [address] [place] [address], [place] [address] Jul, [facility] [address] [id number] [address] [place] [address], [place] [address] Jul, [facility] [address] [id number] [address] [place] [address], [place] [address] June, [facility] [address] [id number] [address] [place] [address], [place] [address] June, [facility] [address] [id number] [address] [place] [address], [place] [address] 30 May, 2012 [facility] [address] [id number] [address] [place] [address], [place] [address] 03 May, 2012 [facility] [address] [id number] [address] [place] [address], [place] [address] 29 Apr, 2012 [facility] [address] [id number] [address] [place] [address], [place] [address] Apr, [facility] [address] [id number] [address] [place] [address], [place] [address] 18 Mar, 2012 [facility] [address] [id number] [address] [place] [address], [place] [address] Mar, [facility] [address] [id number] [address] [place] [address], [place] [address] 31 Feb, 2012 [facility] [address] [id number] [address] [place] [address], [place] [address] 24 Feb, 2012 [facility] [address] [id number] [address] [place] [address], [place] [address] 18 Feb, 2012 [facility] [address] [id number] [address] [place] [address], [place] [address] 17 Feb, 2012 [facility] [address] [id number] [address] [place] [address], [place] [address] 17 Feb, 2012 [facility] [address] [id number] [address] [place] [address], [place] [address] 16 Feb, 2012 [facility] [facility] [address] [id number] [address] [place] [address], [place] [address] 16 Feb, 2012 [facility] [address] [id number] [address] [place] [address], [place] [address] 14 Feb, 2012 [facility] [address] [id number] [address] [place] [address], [place] [address] 11 Feb, 2012 [facility] [address] [id number] [address] [place] [address], [place] [address] Jan, [facility] [address] [id number] [address] [place] [address], [place] [address] Jan, [facility] [address] [id number] [address] [place] [address], [place] [address] Jan, [facility] [address] [id number] [address] [place] [address], [place] [address] Jan, [facility] [address] [id number] [address] [place] [address], [place] [address] Dec, [facility] [address] [id number] [address] [place] [address], [place] [address] Dec, [facility] [address] [id number] [address] [place] [address], [place] [address] Dec, [facility] [address] [id number] [address] [place] [address], [place] [address] Dec, [facility] [address] [id number] [address] [place] [address], [place] [address] Oct, [facility] [address] [id number] [address] [place] [address], [place] [address] Sep, [facility] [address] [id number] [address] [place] [address], [place] [address] Sep, [facility] [address] [id number] [address] [place] [address], [place] [address] Aug, [facility] [address] [id number] [address] [place] [address], [place] [address] Jul, [facility] [address] [id number] [address] [place] [address], [place] [address] June, [facility] [address] [id number] [address] [place] [address], [place] [address] June, [facility] [address] [id number] [address] [place] [address], [place] [address] May, [facility] [address] [id number] [address] [place] [id number] Apr, [facility] [address] [id number] [address] [place] [id number] Mar, [facility] [address] [facility] [id number] [address] [place] [id number] Mar, [facility] [address] [facility] [id number] [address] [place] [id number] Feb, [facility] [address] [facility] [id number] [address] [place] [id number] Dec, [facility] [address] [facility] [id number] [address] [place] [address] Nov, [facility] [address] [facility] [id number] [address] [place] [id number] Sep, [facility] [address] [facility] [id number] [address] [place] [address] Aug, IMMUNIZATIONS No Known Immunizations SOCIAL HISTORY [...]
--- OUTSIDE RECORDS SUMMARY | 2019-07-14 18:46 | XMS REPORT | Continuity of Care Document ---
Author Organization Unknown Address Unknown Phone Unavailable Allergies Active Description Code Type Severity Reaction Onset Reported/Identified Relationship to Patient Clinical Status Yes NO KNOWN DRUG ALLERGIES UNKNOWN NO KNOWN DRUG ALLERG Yes NO KNOWN DRUG ALLERGIES UNKNOWN UNKNOWN Yes No Known Drug Allergies [id number] Drug Allergy Unknown N/A 07/20/2012 Medications Medication [...] MD 465.9 Upper Respiratory Infection 04/01/2010 DWIGHT [employer] PAT[employer] POLICE OFFICER, APRIL A 30 5.1 NONDEPENDENT TOBACCO USE DISORDER 04/01/2010 DWIGHT [employer] POLICE OFFICER, APRIL A 46 5.9 Upper Respiratory Infection 04/01/2010 DWIGHT [employer] POLICE OFFICER, APRIL A 30 5.1 NONDEPENDENT TOBACCO USE DISORDER 04/01/2010 DWIGHT [employer] POLICE OFFICER, APRIL A 46 5.9 Upper Respiratory Infection [...] SYNDROME 05/14/2010 HUMA LOZOYA MD V72.3 1 Marine Steward Exam, Routine 05/14/2010 BALDERRAMA DO, BERRY K 354.0 CARPAL TUNNEL SYNDROME 05/14/2010 BALDERRAMA DO, BERRY K V72.31 Marine Steward Exam, Routine 05/14/2010 BALDERRAMA DO, BERRY K 354.0 CARPAL TUNNEL SYNDROME 05/14/2010 BALDERRAMA DO, BERRY K V72.31 Marine Steward Exam, Routine 05/14/2010 HUMA LOZOYA MD 354.0 CARPAL TUNNEL SYNDROME 05/14/2010 HUMA LOZOYA MD V72.3 1 Marine Steward Exam, Routine 05/14/2010 354.0 CARP AL TUNNEL SYNDROME 05/14/2010 V72.31 Marine Steward Exam, Routine 05/14/2010 HUMA LOZOYA MD 354.0 CARPAL TUNNEL SYNDROME 05/14/2010 UHMA LOZOYA MD V72.3 1 Marine Steward Exam, Routine 05/14/2010 HUMA LOZOYA MD 354.0 CARPAL TUNNEL SYNDROME 05/14/2010 HUAM LOZOYA MD V72.3 1 Marine Steward Exam, Routine 05/14/2010 HUMA LOZOYA MD 354.0 CARPAL TUNNEL SYNDROME 05/14/2010 HUMA LOZOYA MD V72.3 1 Marine Steward Exam, Routine 05/14/2010 HUMA LOZOYA MD 354.0 CARPAL TUNNEL SYNDROME 05/14/2010 HUMA LOZOYA MD V72.3 1 Marine Steward Exam, Routine 05/14/2010 HUMA LOZOYA MD 354.0 CARPAL TUNNEL SYNDROME 05/14/2010 HUMA LOZOYA MD V72.3 1 Marine Steward Exam, Routine 05/14/2010 DWIGHT [employer] POLICE OFFICER, APRIL A 35 4.0 CARPAL TUNNEL SYNDROME 05/14/2010 APRIL QUINTANILLA APRN V72.31 Marine Steward Exam, Routine 05/14/2010 DWIGHT [employer] POLICE OFFICER, APRIL A 35 4.0 CARPAL TUNNEL SYNDROME 05/14/2010 APRIL QUINTANILLA APRN V72.31 Marine Steward Exam, Routine 05/14/2010 BALDERRAMA DO, BERRY K 354.0 CARPAL TUNNEL SYNDROME 05/14/2010 BERRY BALDERRAMA DO V72.31 Marine Steward Exam, Routine 05/14/2010 BERRY BALDERRAMA DO K 354.0 CARPAL TUNNEL SYNDROME 05/14/2010 BERRY BALDERRAMA DO V72.31 Marine Steward Exam, Routine 05/14/2010 HUMA LOZOYA MD 354.0 CARPAL TUNNEL SYNDROME 05/14/2010 HUMA LOZOYA MD V72.3 1 Marine Steward Exam, Routine 05/14/2010 HUMA LOZOYA MD 354.0 CARPAL TUNNEL SYNDROME 05/14/2010 HMUA LOZOYA MD V72.3 1 Marine Steward Exam, Routine 05/14/2010 ADDIS SPRINGER APRN 354.0 CARPAL TUNNEL SYNDROME 05/14/2010 ADDIS SPRINGER APRN V72.31 Marine Steward Exam, Routine 05/14/2010 HUMA LOZOYA MD 354.0 CARPAL TUNNEL SYNDROME 05/14/2010 HUMA LOZOYA MD V72.3 1 Marine Steward Exam, Routine 05/14/2010 HUMA LOZOYA MD 354.0 CARPAL TUNNEL SYNDROME 05/14/2010 HUMA LOZOYA MD V72.3 1 Marine Steward Exam, Routine 05/14/2010 354.0 CARP AL TUNNEL SYNDROME 05/14/2010 V72.31 Marine Steward Exam, Routine 05/14/2010 HUMA LOZOYA MD 354.0 CARPAL TUNNEL SYNDROME 05/14/2010 HUMA LOZOYA MD V72.3 1 Marine Steward Exam, Routine 06/09/2010 HUMA LOZOYA MD 381.8 [...] Intoxication In Alcoholism In Remission 08/12/2010 HUMA LOOZYA MD 305.7 3 NONDEPENDENT AMPHETAMINE OR RELATED [...] RED BLOOD CELLS 08/15/2010 HUAM LOZOYA MD 790.0 9 OTHER ABNORMALITY OF [...] ABNORMALITY OF RED BLOOD CELLS 08/15/2010 DWIGHT [employer] POLICE OFFICER, APRIL A 790.09 OTHER ABNORMALITY OF RED BLOOD CELLS 08/15/2010 DWIGHT [employer] POLICE OFFICER, APRIL A 790.09 OTHER ABNORMALITY OF RED BLOOD CELLS 08/15/2010 JEOVANNY BALDERRAMA DOA K 790.09 OTHER ABNORMALITY OF RED BLOOD CELLS 08/15/2010 JEOVANNY BALDERRAMA DOA K 790.09 OTHER ABNORMALITY OF RED BLOOD CELLS 08/15/2010 HUMA LOZOYA MD 790.0 9 OTHER ABNORMALITY OF RED BLOOD CELLS 08/15/2010 HUMA LOZOYA MD 790.0 9 OTHER ABNORMALITY OF RED BLOOD CELLS 08/15/2010 SPRINGER UNIFORM PATROL POLICE OFFICERADDIS A 790.09 OTHER ABNORMALITY OF RED BLOOD [...] 300.0 0 ANXIETY STATE UNSPECIFIED 08/20/2010 DWIGHT [employer] POLICE OFFICER, APRIL A 300.00 ANXIETY STATE UNSPECIFIED 08/20/2010 DWIGHT [employer] POLICE OFFICER, APRIL A 300.00 ANXIETY STATE UNSPECIFIED 08/20/2010 BALDERRAMA DO, BERRY K 300.00 ANXIETY STATE UNSPECIFIED 08/20/2010 BALDERRAMA DO, BERRY K 300.00 ANXIETY STATE UNSPECIFIED 08/20/2010 HUMA LOZOYA MD 300.0 0 ANXIETY STATE UNSPECIFIED 08/20/2010 HUMA LOZOYA MD 300.0 0 ANXIETY STATE UNSPECIFIED 08/20/2010 SPRINGER [employer] POLICE OFFICER, ADDIS A 300.00 ANXIETY STATE UNSPECIFIED 08/20/2010 [...] BALDERRAMA DO 724.5 BACKACHE UNSPECIFIED 12/11/2010 HUMA LOZOYA MD [...] V76.2 CERVICAL CANCER SCREENING (PAP SMEAR) 02/19/2012 BERYR BALDERRAMA DO 627.2 MENOPAUSAL SX 02/19/2012 BERRY [...] CERVICAL CANCER SCREENING (PAP SMEAR) 02/19/2012 BERRY BADLERRAMA DO K 627.2 MENOPAUSAL SX 02/19/2012 BERRY [...] LOZOYA MD 627.2 MENOPAUSAL SX 02/19/2012 HUMA LZOOYA MD V76.1 0 BREAST CANCER SCREENING 02/19/2012 [...] A V76.10 BREAST CANCER SCREENING 04/17/2013 DWIGHT [employer]ICE OFFICER, APRIL A V76.51 COLON CANCER SCREENING 04/17/2013 DWIGHT [employer] POLICE OFFICER APRIL A V82.81 SPECIAL SCREENING FOR OSTEOPOROSIS 04/17/2013 BALDERRAMA DO, EBRRY K V65.42 COUNSELING - SMOKING CESSATION 04/17/2013 [...] 1 SPECIAL SCREENING FOR OSTEOPOROSIS 04/17/2013 SPRINGER [employer] POLICE OFFICER ADDIS A V65.42 COUNSELING - SMOKING CESSATION 04/17/2013 SPRINGER [employer] POLICE OFFICER ADDIS A V65.49 OTHER SPECIFIED COUNSELING 04/17/2013 SPRINGER [employer] POLICE OFFICER, ADDIS A V76.10 BREAST CANCER SCREENING 04/17/2013 SPRINGER [employer] POLICE OFFICER ADDIS A V76.51 COLON CANCER SCREENING 04/17/2013 SPRINGER [employer] POLICE OFFICER, ADDIS A V82.81 SPECIAL SCREENING FOR OSTEOPOROSIS [...] Ot V03.82 PROPHYLACTIC VACC AGAINST STREPTOCOCCUS 10/03/2013 BERRY BALDERRAMA DO Ot V62.84 SUICIDAL IDEATION 10/03/2013 BERRY BALDERRAMA DO Ot V62.85 HOMICIDAL IDEATION 11/20/2013 DANICA LERNER MD Ot 305.00 ALCOHOL ABUSE-UNSPEC 11/20/2013 DANICA LERNER MD Ot 305 .1 TOBACCO USE DISORDER [...] MD F Ot V76.12 03/16/2014 DWIGHTAPRIL Tanner [employer] POLICE OFFICER Ot 733.90 03/16/2014 DWIGHT APRIL A [employer] POLICE OFFICER Ot V65.42 03/16/2014 DWIGHT, APRIL A [employer]ICE OFFICER Ot V65.49 03/16/2014 DWIGHT, APRIL A [employer]ICE OFFICER Ot V76.12 03/16/2014 JI QUINTANILLAIDI A [employer] POLICE OFFICER Ot V76.51 03/16/2014 DWIGHT APRIL A [employer] POLICE OFFICER Ot V82.81 03/19/2014 HUMA LOZOYA MD V76.1 [...] OTHER NONCOMPLIANCE WITH MEDIC 03/03/2016 LI LOPEZ [employer] POLICE OFFICER Ot J44 .9 CHRONIC OBSTRUCTIVE PULMONARY DISEASE, [...] STATUS 03/03/2016 LI LOPEZ APRN Ot 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 03/03/2016 LI LOPEZ APRN Ot Z79.899 OTHER INKING MACHINE TENDER (CURRENT) DRUG THERAPY 03/03/2016 Ot V76.12 OTH SCREEN MAMMO- MALIGN NEOPLASM OF ETIENNE 03/03/2016 HUMA LOZOYA MD Ot V76.12 OTH SCREEN MAMMO-MALIGN NEOPLASM OF ETIENNE 03/03/2016 APRIL QUINTANILLA [employer] POLICE OFFICER Ot 733.90 BONE CARTILAGE DIS NOS 03/03/2016 APRIL QUINTANILLA [employer] POLICE OFFICER Ot V65.42 COUNSELING ON SUBSTANCE USE AND ABUSE 03/03/2016 APRIL QUINTANILLA [employer] POLICE OFFICER Ot V65.49 OTHER SPECIFIED COUNSELING 03/03/2016 APRIL QUINTANILLA [employer] POLICE OFFICER Ot V76.12 OTH SCREEN MAMMO-MALIGN NEOPLASM OF ETIENNE 03/03/2016 APRIL QUINTANILLA [employer] POLICE OFFICER Ot V76.51 SCREEN MAL NEOP-COLON 03/03/2016 APRIL QUINTANILLA [employer] POLICE OFFICER Ot V82.81 SCREENING FOR OSTEOPOROSIS 03/03/2016 Ot V76.12 OTH SCREEN MAMMO- MALIGN NEOPLASM OF ETIENNE 03/03/2016 HUMA LOZOYA MD Ot V76.12 OTH SCREEN MAMMO-MALIGN NEOPLASM OF ETIENNE 03/03/2016 APRIL QUINTANILLA A [employer] POLICE OFFICER Ot 733.90 BONE CARTILAGE DIS NOS 03/03/2016 APRIL QUINTANILLA Jp [employer] POLICE OFFICER Ot V65.42 COUNSELING ON SUBSTANCE USE AND ABUSE 03/03/2016 DWIGHTJIAPRIL A [employer] POLICE OFFICER Ot V65.49 OTHER SPECIFIED COUNSELING 03/03/2016 APRIL QUINTANILLA [employer] POLICE OFFICER Ot V76.12 OT SCREEN MAMMO-MALIGN NEOPLASM OF ETIENNE 03/03/2016 DWIGHTJIAPRIL A [employer] POLICE OFFICER Ot V76.51 SCREEN MAL NEOP-COLON 03/03/2016 DWIGHTJIAPRIL A [employer] POLICE OFFICER Ot V82.81 SCREENING FOR OSTEOPOROSIS 03/04/2016 LI LOPEZ APRN Ot J44 .9 CHRONIC OBSTRUCTIVE PULMONARY DISEASE, U 03/04/2016 LI LOPEZ APRN Ot S82.401A UNSP FRACTURE OF SHAFT OF RIGHT FIBULA, 03/04/2016 LI LOPEZ APRN Ot S99.911A UNSPECIFIED INJURY OF RIGHT ANKLE, INITI 03/04/2016 LI LOPEZ APRN Ot X58.XXXA EXPOSURE TO OTHER SPECIFIED FACTORS, INI 03/04/2016 LI LOPEZ APRN Ot Y92.[address] IN [facility] NON-INSTIT[facility] (PRIVATE 03/04/2016 IL LOPEZ APRN Ot Y99 .8 OTHER EXTERNAL CAUSE STATUS 03/04/2016 LI LOPEZ APRN Ot 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 03/04/2016 LI LOPEZ APRN Ot Z79.899 OTHER INKING MACHINE TENDER (CURRENT) DRUG THERAPY 03/05/2016 LI LOPEZ APRN Ot J44 .9 CHRONIC OBSTRUCTIVE PULMONARY DISEASE, U 03/05/2016 LI LOPEZ APRN Ot S82.401A UNSP FRACTURE OF SHAFT OF RIGHT FIBULA, 03/05/2016 LI LOPEZ APRN Ot S99.911A UNSPECIFIED INJURY OF RIGHT ANKLE, INITI 03/05/2016 LI LOPEZ APRN Ot X58.XXXA EXPOSURE TO OTHER SPECIFIED FACTORS, INI 03/05/2016 LI LOPEZ APRN Ot Y92.[address] IN [facility] NON-[facility] (PRIVATE 03/05/2016 LI LOPEZ APRN Ot Y99 .8 OTHER EXTERNAL CAUSE STATUS 03/05/2016 LI LOPEZ APRN Ot Z79.82 CARE HOME (CURRENT) USE OF ASPIRIN 03/05/2016 LI LOPEZ APRN Ot Z79.899 OTHER INKING MACHINE TENDER (CURRENT) DRUG THERAPY 07/11/2016 MELISSA GARCIA Ot F10.129 ALCOHOL ABUSE WITH INTOXICATION, UNSPECI 07/11/2016 MELISSA GARCIA Ot F17.210 NICOTINE DEPENDENCE, CIGARETTES, UNCOMPL 07/11/2016 MELISSA GARCIA Ot J44.9 CHRONIC OBSTRUCTIVE PULMONARY DISEASE, U 07/11/2016 MELISSA GARCIA Ot Y90.6 BLOOD ALCOHOL LEVEL OF 120-199 MG/100 ML 07/11/2016 MELISSA GARCIA Ot Z79.82 CARE HOME (CURRENT) USE OF ASPIRIN 07/11/2016 MELISSA GARCIA Ot Z79.899 OTHER CARE HOME (CURRENT) DRUG THERAPY 04/06/2017 MALIA JOLLY MD [...] R 04/06/2017 MALIA JOLLY MD Ot Z79.82 CARE HOME (CURRENT) USE OF ASPIRIN 04/06/2017 MALIA [...] FACTORS, INI 04/06/2017 MELISSA GARCIA Ot Z79.82 CARE HOME (CURRENT) USE OF ASPIRIN 04/06/2017 MELISSA [...] MD Ot M25.472 EFFUSION, LEFT ANKLE 04/08/2017 MALAI JOLLY MD Ot S82.831A OTH FRACTURE OF UPPER AND LOWER END OF R 04/08/2017 MALIA JOLLY MD Ot Z79.82 CARE HOME (CURRENT) USE OF ASPIRIN 04/08/2017 MALIA [...] FACTORS, INI 04/08/2017 MELISSA GARCIA Ot Z79.82 CARE HOME (CURRENT) USE OF ASPIRIN 04/08/2017 MELISSA GARCIA Ot Z80.8 FAMILY HISTORY OF MALIGNANT NEOPLASM OF 04/08/2017 MELISSA GARCIA Ot Z91.5 PERSONAL HISTORY OF SELF-HARM 05/11/2017 MELISSA GARCIA Ot R06.02 SHORTNESS OF BREATH 05/18/2017 MELISSA GARCIA Ot R06.02 SHORTNESS OF BREATH 05/18/2017 MELISSA GARCIA Ot R06.02 SHORTNESS OF BREATH 05/19/2017 Ot V76.12 OTH SCREEN MAMMO- MALIGN NEOPLASM OF ETIENNE 05/19/2017 DEVORA PINEDO, HUMA Sparks Ot V76.12 OTH SCREEN MAMMO-MALIGN NEOPLASM OF ETIENNE 05/19/2017 DWIGHT, APRIL A [employer]ICE OFFICER Ot 733.90 BONE CARTILAGE DIS NOS 05/19/2017 APRIL QUINTANILLA [employer] POLICE OFFICER Ot V65.42 COUNSELING ON SUBSTANCE USE AND ABUSE 05/19/2017 JI QUINTANILLAIDI A [employer] POLICE OFFICER Ot V65.49 OTHER SPECIFIED COUNSELING 05/19/2017 JI QUINTANILLAIDI Jp [employer] POLICE OFFICER Ot V76.12 OTH SCREEN MAMMO-MALIGN NEOPLASM OF ETIENNE 05/19/2017 APRIL QUINTANILLA [employer] POLICE OFFICER Ot V76.51 SCREEN MAL NEOP-COLON 05/19/2017 JI QUINTANILLAIDI A [employer] POLICE OFFICER Ot V82.81 SCREENING FOR OSTEOPOROSIS 05/19/2017 MELISSA GARCIA Ot R06.02 SHORTNESS OF BREATH 05/19/2017 ASHLYN PINEDO, HONEY Donaldson Ot M79.609 PAIN IN UNSPECIFIED LIMB 05/19/2017 HONEY GOLDBERG MD Ot R06.02 SHORTNESS OF BREATH 05/19/2017 HONEY GOLDBERG MD Ot W19.XXXA UNSPECIFIED FALL, INITIAL ENCOUNTER 05/19/2017 Ot V76.12 OTH SCREEN MAMMO- MALIGN NEOPLASM OF ETIENNE 05/19/2017 HUMA LOZOYA MD Ot V76.12 OTH SCREEN MAMMO-MALIGN NEOPLASM OF ETIENNE 05/19/2017 APRIL QUINTANILLA [employer] POLICE OFFICER Ot 733.90 BONE CARTILAGE DIS NOS 05/19/2017 JI QUINTANILLAIDI A [employer] POLICE OFFICER Ot V65.42 COUNSELING ON SUBSTANCE USE AND ABUSE 05/19/2017 JI QUINTANILLAIDI A [employer] POLICE OFFICER Ot V65.49 OTHER SPECIFIED COUNSELING 05/19/2017 DWIGHTAPRIL UN[employer] POLICE OFFICER Ot V76.12 OTH SCREEN MAMMO-MALIGN NEOPLASM OF ETIENNE 05/19/2017 APRIL QUINTANILLA [employer] POLICE OFFICER Ot V76.51 SCREEN MAL NEOP-COLON 05/19/2017 APRIL QUINTANILLA [employer] POLICE OFFICER Ot V82.81 SCREENING FOR OSTEOPOROSIS 05/19/2017 MELISSA GARCIA Ot R06.02 SHORTNESS OF BREATH 05/20/2017 Ot V76.12 OTH SCREEN MAMMO- MALIGN NEOPLASM OF ETIENNE 05/20/2017 HUMA LOZOYA MD Ot V76.12 OTH SCREEN MAMMO-MALIGN NEOPLASM OF ETIENNE 05/20/2017 DWIGHT, APRIL A [employer] POLICE OFFICER Ot 733.90 BONE CARTILAGE DIS NOS 05/20/2017 APRIL QUINTANILLA [employer] POLICE OFFICER Ot V65.42 COUNSELING ON SUBSTANCE USE AND ABUSE 05/20/2017 APRIL QUINTANILLA [employer] POLICE OFFICER Ot V65.49 OTHER SPECIFIED COUNSELING 05/20/2017 APRIL QUINTANILLA [employer] POLICE OFFICER Ot V76.12 OTH SCREEN MAMMO-MALIGN NEOPLASM OF ETIENNE 05/20/2017 APRIL QUINTANILLA [employer]ROL POLICE OFFICER Ot V76.51 SCREEN MAL NEOP-COLON 05/20/2017 APRIL QUINTANILLA [employer] POLICE OFFICER Ot V82.81 SCREENING FOR OSTEOPOROSIS 05/21/2017 ASHLYN PINEDO, HONEY Donaldson Ot M79.609 PAIN IN UNSPECIFIED LIMB 05/21/2017 ASHLYN PINEDO, HONEY Donaldson Ot R06.02 SHORTNESS OF BREATH 05/21/2017 HONEY [...] BREATH 05/21/2017 LI LOPEZ APRN Ot 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 05/21/2017 LI LOPEZ [...] BREATH 05/24/2017 LI LOPEZ APRN Ot 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 05/24/2017 LI LOEPZ APRN Ot Z80 .8 FAMILY HISTORY OF MALIGNANT NEOPLASM OF 05/24/2017 LI LOPEZ APRN Ot Z87.448 PERSONAL HISTORY OF OTHER DISEASES OF UR 05/24/2017 LI LOPEZ APRN Ot Z91 .5 PERSONAL HISTORY OF SELF-HARM 05/29/2017 SHAHANA ROSENTHALP Ot F10.129 ALCOHOL ABUSE WITH INTOXICATION, UNSPECI 05/29/2017 ARIADNA, SHAHANA DRILLING MACHINE RUNNER Ot F12.90 CANNABIS USE, UNSPECIFIED, UNCOMPLICATED 05/29/2017 ARIADNA, SHAHANA DRILLING MACHINE RUNNER Ot F31.9 BIPOLAR DISORDER, UNSPECIFIED 05/29/2017 ARIADNA, SHAHANA DRILLING MACHINE RUNNER Ot F41.9 ANXIETY DISORDER, UNSPECIFIED 05/29/2017 ARIADNA, SHAHANA DRILLING MACHINE RUNNER Ot G47.30 SLEEP APNEA, UNSPECIFIED 05/29/2017 ARIADNA, SHAHANA DRILLING MACHINE RUNNER Ot G47.9 SLEEP DISORDER, UNSPECIFIED 05/29/2017 ARIADNA, SHAHANA DRILLING MACHINE RUNNER Ot J44.9 CHRONIC OBSTRUCTIVE PULMONARY DISEASE, U 05/29/2017 ARIADNA SHAHANA DRILLING MACHINE RUNNER Ot R06.02 SHORTNESS OF BREATH 05/29/2017 ARIADNA SHAHANA DRILLING MACHINE RUNNER Ot Z77.22 CNTCT W AND EXPSR TO ENVIRON TOBACCO SMO 05/29/2017 ARIADNA SHAHANA DRILLING MACHINE RUNNER Ot 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 05/29/2017 ARIADNA SHAHANA DRILLING MACHINE RUNNER Ot Z87.81 PERSONAL HISTORY OF (HEALED) TRAUMATIC F 05/29/2017 ARIADNA SHAHANA DRILLING MACHINE RUNNER Ot Z91.5 PERSONAL HISTORY OF SELF-HARM 06/08/2017 [...] DISEASE, U 06/08/2017 MELISSA GARCIA Ot 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 06/08/2017 MELISSA GARCIA [...] DISEASE, U 06/10/2017 MELISSA GARCIA Ot 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 06/10/2017 MELISSA GARCIA Ot Z80.8 FAMILY HISTORY OF MALIGNANT NEOPLASM OF 06/10/2017 MELISSA GARCIA Ot Z91.5 PERSONAL HISTORY OF SELF-HARM 08/19/2017 LI LOPEZ APRN Ot F10.229 ALCOHOL DEPENDENCE WITH INTOXICATION, UN 08/19/2017 LI LOPEZ [employer] OFFICER Ot F12.10 CANNABIS ABUSE, UNCOMPLICATED 08/19/2017 LI [...] SMO 08/19/2017 LI LOPEZ APRN Ot 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 08/19/2017 LI [...] SMO 08/23/2017 LI LOPEZ APRN Ot Z79.82 CARE HOME (CURRENT) USE OF ASPIRIN 08/23/2017 LI LOPEZ [...] SLE EP APNEA, UNSPECIFIED 09/13/2017 Ot J44.9 BRAZER ELECTRONIC VINITA OBSTRUCTIVE PULMONARY DISEASE, U 09/13/[address] W AND EXPSR TO ENVIRON TOBACCO SMO 09/13/2017 Ot Z79.82 PAOLA G TERM (CURRENT) USE OF ASPIRIN 09/13/2017 Ot Z80.8 FAMI LY HISTORY OF MALIGNANT NEOPLASM OF 09/13/2017 Ot Z87.448 PE RSONAL HISTORY OF OTHER DISEASES OF UR 09/13/2017 Ot Z91.5 PERS ONAL HISTORY OF SELF-HARM 09/13/2017 Ot R06.02 GEORGE RTNESS OF BREATH 10/03/2017 ALICIA YAP 305.0 0 ALCOHOL ABUSE, UNSPECIFIED DRINKING BEHAVIOR 10/03/2017 ALICIA YAP 305.1 TOBACCO USE DISORDER 10/03/2017 ALICIA YAP W 786.0 5 SHORTNESS OF BREATH 10/03/2017 ALICIA YAP F10.1 20 ALCOHOL ABUSE WITH INTOXICATION, UNCOMPLICATED 10/03/2017 ALICIA YAP W R06.0 2 SHORTNESS OF BREATH 10/03/2017 ALICIA YAP W Y90.8 BLOOD ALCOHOL LEVEL OF 240 MG/100 ML OR MORE 10/03/2017 ALICIA YAP Z72.0 TOBACCO USE 10/10/2017 MARINA MULLINSIS Ot F10.20 ALCOHOL DEPENDENCE, UNCOMPLICATED 10/10/2017 MARINA MULLINSIS Ot F31.9 BIPOLAR DISORDER, UNSPECIFIED 10/10/2017 MARINA MULLINSIS Ot F41.9 ANXIETY DISORDER, UNSPECIFIED 10/10/2017 MARINA MULLINSIS Ot G47.30 SLEEP APNEA, UNSPECIFIED 10/10/2017 JENIFER MULLINS Ot J44.9 CHRONIC OBSTRUCTIVE PULMONARY DISEASE, U 10/10/2017 MARINA MULLINSIS Ot R06.02 SHORTNESS OF BREATH 10/10/2017 JENIFER MULLINS Ot Z77.22 CNTCT W AND EXPSR TO ENVIRON TOBACCO SMO 10/10/2017 MARINA MULLINSIS Ot 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 10/10/2017 JENIFER MULLINS Ot Z80.8 FAMILY HISTORY OF MALIGNANT NEOPLASM OF 10/10/2017 MARINA MULLINSIS Ot Z87.448 PERSONAL HISTORY OF OTHER DISEASES OF UR 10/10/2017 MARINA MULLINSIS Ot Z91.5 PERSONAL HISTORY OF SELF-HARM 10/12/2017 JENIFER MULLINS Ot F10.20 ALCOHOL DEPENDENCE, UNCOMPLICATED 10/12/2017 JENIFER MULLINS Ot F31.9 BIPOLAR DISORDER, UNSPECIFIED 10/12/2017 JENIFER MULLINS Ot F41.9 ANXIETY DISORDER, UNSPECIFIED 10/12/2017 JENIFER MULLINS Ot G47.30 SLEEP APNEA, UNSPECIFIED 10/12/2017 JENIFER MULLINS Ot J44.9 CHRONIC OBSTRUCTIVE PULMONARY DISEASE, U 10/12/2017 JENIFER MULLINS Ot R06.02 SHORTNESS OF BREATH 10/12/2017 JENIFER MULLINS Ot Z77.22 CNTCT W AND EXPSR TO ENVIRON TOBACCO SMO 10/12/2017 JENIFER MULLINS Ot 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 10/12/2017 JENIFER MULLINS [...] TOBACCO SMO 06/29/2018 JENIFER MULLINS Ot 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 06/29/2018 JENIFER MULLINS Ot Z80.8 FAMILY HISTORY OF MALIGNANT NEOPLASM OF 06/30/2018 AMBER MCKEON DO Ot J98.9 RESPIRATORY DISORDER, UNSPECIFIED 06/30/2018 LI LOPEZ APRN Ot F10.10 ALCOHOL [...] SMO 06/30/2018 LI LOPEZ APRN Ot 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 06/30/2018 LI LOPEZ [...] COMA SCALE, BEST VERBAL RESPONSE, ORIENT 07/01/2018 MARINA MULLINSIS Ot R40.2362 COMA SCALE, BEST MOTOR RESPONSE, OBEYS C 07/01/2018 HARPREET JENIFER Ot S00.83XA CONTUSION OF OTHER PART OF HEAD, INITIAL 07/01/2018 MARINA MULLINSIS Ot S09.93XA UNSPECIFIED INJURY OF FACE, INITIAL ENCO 07/01/2018 HARPREET JENIFER Ot W01.198A FALL SAME LEV FROM SLIP/TRIP W STRIKE AG 07/01/2018 MARINA MULLINSIS Ot Z77.22 CNTCT W AND EXPSR TO ENVIRON TOBACCO SMO 07/01/2018 MARINA MULLINSIS Ot Z79.82 CARE HOME (CURRENT) USE OF ASPIRIN 07/01/2018 JENIFER MULLINS Ot Z80.8 FAMILY HISTORY OF MALIGNANT NEOPLASM OF 07/05/2018 JENIFER MULLINS Ot F31.9 BIPOLAR DISORDER, UNSPECIFIED 07/05/2018 JENIFER MULLINS Ot F41.9 ANXIETY DISORDER, UNSPECIFIED 07/05/2018 JEINFER MULLINS Ot J44.9 CHRONIC OBSTRUCTIVE PULMONARY DISEASE, [...] UNSPECIFIED INJURY OF FACE, INITIAL ENCO 07/05/2018 MARINA MULLINSIS Ot W01.198A FALL SAME LEV FROM SLIP/TRIP W STRIKE AG 07/05/2018 JENIFER MULLINS Ot Z77.22 CNTCT W AND EXPSR TO ENVIRON TOBACCO SMO 07/05/2018 JENIFER MULLINS Ot Z79.82 CARE HOME (CURRENT) USE OF ASPIRIN 07/05/2018 JENIFER MULLINS [...] SMO 07/06/2018 LI LOPEZ APRN Ot 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 07/06/2018 LI LOPEZ APRN Ot Z80 .8 FAMILY HISTORY OF MALIGNANT NEOPLASM OF 07/06/2018 LI LOPEZ APRN Ot Z87.448 PERSONAL HISTORY OF OTHER DISEASES OF UR 07/06/2018 LI LOPEZ APRN Ot Z91 .5 PERSONAL HISTORY OF SELF-HARM 07/12/2018 AMBER MCKEON [...] FALL (ON)(FROM) SIDEWALK CURB, INITIAL E 07/13/2018 JENIFER MULLINS Ot Y92.[address] OF OCCURRENCE OF T 07/13/2018 JENIFER MULLINS Ot Z77.22 CNTCT W AND EXPSR TO ENVIRON TOBACCO SMO 07/13/2018 JENIFER MULLINS Ot 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 07/13/2018 MARINA MULLINSIS Ot Z80.8 FAMILY HISTORY OF MALIGNANT NEOPLASM OF 07/13/2018 MARINA MULLINSIS Ot Z87.448 PERSONAL HISTORY OF OTHER DISEASES OF UR 07/13/2018 MARINA MULLINSIS Ot Z91.5 PERSONAL HISTORY OF SELF-HARM 07/18/2018 MARINA MULLINSIS Ot F10.229 ALCOHOL DEPENDENCE WITH INTOXICATION, UN 07/18/2018 MARINA MULLINSIS Ot F31.9 BIPOLAR DISORDER, UNSPECIFIED 07/18/2018 HARPREETJENIFER Ot F41.9 ANXIETY DISORDER, UNSPECIFIED 07/18/2018 MARINA MULLINSIS Ot G47.30 SLEEP APNEA, UNSPECIFIED 07/18/2018 MARINA MULLINSIS Ot J44.9 CHRONIC OBSTRUCTIVE PULMONARY DISEASE, U 07/18/2018 TIANMARINA VELAIS Ot M25.571 PAIN IN RIGHT ANKLE AND JOINTS OF RIGHT 07/18/2018 HARPREET JENIFER Ot S82.61XA DISP FX OF LATERAL MALLEOLUS OF RIGHT FI 07/18/2018 JENIFER MULLINS Ot W10.1XXA FALL (ON)(FROM) SIDEWALK CURB, INITIAL E 07/18/2018 TIANDANE JENIFER Ot Y92.[address] OF OCCURRENCE OF T 07/18/2018 MARINA MULLINSIS Ot Z77.22 CNTCT W AND EXPSR TO ENVIRON TOBACCO SMO 07/18/2018 HARPREET JENIFER Ot Z79.82 CARE HOME (CURRENT) USE OF ASPIRIN 07/18/2018 TIANDANE JENIFER Ot Z80.8 FAMILY HISTORY OF MALIGNANT NEOPLASM OF 07/18/2018 TIANMARINA VELAIS Ot Z87.448 PERSONAL HISTORY OF OTHER DISEASES OF UR 07/18/2018 TIANMARINA VELAIS Ot Z91.5 PERSONAL HISTORY OF SELF-HARM 08/02/2018 Johnnie Robert 305.00 ALCOHOL ABUSE, UNSPECIFIED DRINKING BEHAVIOR 08/02/2018 Johnnie Robert F10.120 ALCOHOL ABUSE WITH INTOXICATION, UNCOMPLICATED 08/02/2018 Johnnie Robert Y90.8 BLOOD ALCOHOL LEVEL OF 240 MG/100 ML OR MORE 09/09/2018 JOHN PINEDO, TANNA Montes Ot F10. 20 ALCOHOL DEPENDENCE, UNCOMPLICATED 09/09/2018 JOHN PINEDO, TANNA Montes Ot F12. 10 CANNABIS ABUSE, UNCOMPLICATED 09/09/2018 JOHNTANNA LINN MD Ot F17.210 NICOTINE DEPENDENCE, CIGARETTES, UNCOMPL 09/09/2018 TANNA LOPEZ MD Ot F31. 9 BIPOLAR DISORDER, UNSPECIFIED 09/09/2018 TANNA LOPEZ MD Ot F41. 9 ANXIETY DISORDER, UNSPECIFIED 09/09/2018 TANNA LOPEZ MD Ot G47. 30 SLEEP APNEA, UNSPECIFIED 09/09/2018 TANNA LOPEZ MD Ot J44. 9 CHRONIC OBSTRUCTIVE PULMONARY DISEASE, U 09/09/2018 TANNA LOPEZ MD Ot R91. 1 SOLITARY PULMONARY NODULE 09/09/2018 TANNA LOPEZ MD Ot W18.39XA OTHER FALL ON SAME LEVEL, INITIAL ENCOUN 09/09/2018 TANNA LOPEZ MD Ot Z79. 82 INKING MACHINE TENDER (CURRENT) USE OF ASPIRIN 09/09/2018 TANNA LOPEZ MD Ot Z80. 8 FAMILY HISTORY OF MALIGNANT NEOPLASM OF 09/09/2018 TANNA LOPEZ MD Ot Z91. 5 PERSONAL HISTORY OF SELF-HARM 09/13/2018 TANNA LOPEZ MD Ot F10. 20 ALCOHOL DEPENDENCE, UNCOMPLICATED 09/13/2018 TANNA LOPEZ MD Ot F12. 10 CANNABIS ABUSE, UNCOMPLICATED 09/13/2018 TANNA LOPEZ MD Ot F17.210 NICOTINE DEPENDENCE, CIGARETTES, UNCOMPL 09/13/2018 TANNA LOPEZ MD Ot F31. 9 BIPOLAR DISORDER, UNSPECIFIED 09/13/2018 [...] 09/13/2018 TANNA LOPEZ MD Ot Z79. 82 CARE HOME (CURRENT) USE OF ASPIRIN 09/13/2018 TANNA LOPEZ MD Ot Z80. 8 FAMILY HISTORY OF MALIGNANT NEOPLASM OF 09/13/2018 TANNA LOPEZ MD Ot Z91. 5 PERSONAL HISTORY OF SELF-HARM 10/11/2018 LI LOPEZ APRN Ot F10.229 ALCOHOL DEPENDENCE WITH INTOXICATION, UN 10/11/2018 LI LOPEZ APRN Ot F31 .9 BIPOLAR DISORDER, UNSPECIFIED 10/11/2018 LI LOPEZ APRN Ot F41 .9 ANXIETY DISORDER, UNSPECIFIED 10/11/2018 LI LOPEZ APRN Ot G47.30 SLEEP APNEA, UNSPECIFIED 10/11/2018 LI LOPEZ APRN Ot J44 .9 CHRONIC OBSTRUCTIVE PULMONARY DISEASE, U 10/11/2018 LI LOPEZ APRN Ot Z77.22 CNTCT W AND EXPSR TO ENVIRON TOBACCO SMO 10/11/2018 LI LOPEZ APRN Ot Z79.82 CARE HOME (CURRENT) USE OF ASPIRIN 10/11/2018 LI LOPEZ APRN Ot Z80 .8 FAMILY HISTORY OF MALIGNANT NEOPLASM OF 10/12/2018 RIK PINEDO, MALIA Atkins Ot R69 ILLNESS, UNSPECIFIED 10/14/2018 LI LOPEZ APRN Ot F10.229 ALCOHOL [...] SMO 10/14/2018 LI LOPEZ APRN Ot 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 10/14/2018 LI LOPEZ APRN Ot Z80 .8 FAMILY HISTORY OF MALIGNANT NEOPLASM OF 10/18/2018 RIK PINEDO, MALIA Atkins Ot R69 ILLNESS, UNSPECIFIED 12/11/2018 ZHOU BECKFORD APRN 305 .00 ALCOHOL ABUSE, UNSPECIFIED DRINKING BEHAVIOR 12/11/2018 ZHOU BECKFORD APRN F10.120 ALCOHOL ABUSE WITH INTOXICATION, UNCOMPLICATED 12/11/2018 ZHOU BECKFORD APRN R06 .02 SHORTNESS OF BREATH 12/11/2018 ZHOU BECKFORD APRN Y90 .8 BLOOD ALCOHOL LEVEL OF 240 MG/100 ML OR MORE 12/11/2018 ZHOU BECKFORD APRN W Z72 .0 TOBACCO USE 12/22/2018 JOHN PINEDO, TANNA J Ot F10. 10 ALCOHOL ABUSE, UNCOMPLICATED 12/22/2018 JOHN PINEDO, TANNA J Ot F19. 90 OTHER PSYCHOACTIVE SUBSTANCE USE, UNSPEC 01/02/2019 Johnnie Robert W 303.00 ACUTE ALCOHOLIC INTOXICATION IN ALCOHOLISM, UNSPECIFIED DRINKING BEHAVIOR 01/02/2019 Johnnie Robert W F10.120 ALCOHOL ABUSE WITH INTOXICATION, UNCOMPLICATED 01/02/2019 Johnnie Robert W F10.220 ALCOHOL DEPENDENCE WITH INTOXICATION, UNCOMPLICATED 01/02/2019 Johnnie Robert W R06.02 SHORTNESS OF BREATH 01/02/2019 Johnnie Robert W Y90.8 BLOOD ALCOHOL LEVEL OF 240 MG/100 ML OR MORE 01/02/2019 Johnnie Robert W Z72.0 TOBACCO USE 06/24/2019 ZHOU BECKFORD APRN W 041 .81 MYCOPLASMA INFECTION IN CONDITIONS CLASSIFIED ELSEWHERE AND OF UNSPECIFIED SITE 06/24/2019 ZHOU BECKFORD APRN W 303 .00 ACUTE ALCOHOLIC INTOXICATION IN ALCOHOLISM, UNSPECIFIED DRINKING BEHAVIOR 06/24/2019 ZHOU BECKFORD APRN W A49 .3 MYCOPLASMA INFECTION, UNSPECIFIED SITE 06/24/2019 ZHOU BECKFORD APRN W F10.120 ALCOHOL ABUSE WITH INTOXICATION, UNCOMPLICATED 06/24/2019 ZHOU BECKFORD APRN W F10.220 ALCOHOL DEPENDENCE WITH INTOXICATION, UNCOMPLICATED 06/24/2019 ZHOU BECKFORD APRN W R06 .02 SHORTNESS OF BREATH 06/24/2019 ZHOU BECKFORD APRN W Y90 .8 BLOOD ALCOHOL LEVEL OF 240 MG/100 ML OR MORE 06/24/2019 ZHOU BECKFORD APRN W Z72 .0 TOBACCO USE 07/01/2019 Johnnie Robert W 303.90 OTHER AND UNSPECIFIED ALCOHOL DEPENDENCE, UNSPECIFIED DRINKING BEHAVIOR 07/01/2019 Johnnie Robert F10.120 ALCOHOL ABUSE WITH INTOXICATION, UNCOMPLICATED 07/01/2019 Johnnie Robert W F10.20 ALCOHOL DEPENDENCE, UNCOMPLICATED 07/01/2019 Johnnie Robert W R06.02 SHORTNESS OF BREATH 07/01/2019 Johnnie Robert Y90.8 BLOOD ALCOHOL LEVEL OF 240 MG/100 ML OR MORE 07/01/2019 Johnnie Robert W Z72.0 TOBACCO USE 07/02/2019 LOPEZ, LI Montes [employer] OFFICER Ot F10.20 ALCOHOL DEPENDENCE, UNCOMPLICATED 07/02/2019 LOPEZ, LI Montes [employer]IC[employer] Ot F31 .9 BIPOLAR DISORDER, UNSPECIFIED 07/02/2019 LOPEZ, LI Montes APRN Ot F41 .9 ANXIETY DISORDER, UNSPECIFIED 07/02/2019 LOPEZLI [employer] OFF[employer] Ot Z77.22 CNTCT W AND EXPSR TO ENVIRON TOBACCO SMO 07/02/2019 LOPEZ, LI Montes [employer] OFFICER Ot 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 07/02/2019 LOPEZ, LI Montes [employer] OFFICER Ot Z80 .8 FAMILY HISTORY OF MALIGNANT NEOPLASM OF 07/03/2019 JOHN, LI Montes [employer] OFFICER Ot F10.129 ALCOHOL ABUSE WITH INTOXICATION, UNSPECI 07/03/2019 LOPEZ, LI Montes [employer] OFFICER Ot F10.229 ALCOHOL DEPENDENCE WITH INTOXICATION, UN 07/03/2019 LOPEZ, LI Montes APRN Ot F31 .9 BIPOLAR DISORDER, UNSPECIFIED 07/03/2019 LOPEZ, LI Montes APRN Ot F41 .9 ANXIETY DISORDER, UNSPECIFIED 07/03/2019 LOPEZ, LI Montes APRN Ot G89.29 OTHER CHRONIC PAIN 07/03/2019 LOPEZ, LI Montes APRN Ot M54 .9 DORSALGIA, UNSPECIFIED 07/03/2019 LOPEZLI APRN Ot Z77.22 CNTCT W AND EXPSR TO ENVIRON TOBACCO SMO 07/03/2019 LOPEZLI [employer] OFF[employer]ER Ot Z79.82 CARE HOME (CURRENT) USE OF ASPIRIN 07/03/2019 LOPEZLI [employer] OFFICER Ot Z80 .8 FAMILY HISTORY OF MALIGNANT NEOPLASM OF 07/05/2019 LOPEZ, LI Montes [employer] OFFICER Ot F10.20 ALCOHOL DEPENDENCE, UNCOMPLICATED 07/05/2019 LOPEZ, LI Montes APRN Ot F31 .9 BIPOLAR DISORDER, UNSPECIFIED 07/05/2019 LOPEZLI [employer] OFFICER Ot F41 .9 ANXIETY DISORDER, UNSPECIFIED 07/05/2019 LOPEZLI [employer] OFFICER Ot Z77.22 CNTCT W AND EXPSR TO ENVIRON TOBACCO SMO 07/05/2019 LOPEZ, LI Montes [employer] OFFICER Ot 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 07/05/2019 LI LOPEZ [employer] OFFICER Ot Z80 .8 FAMILY HISTORY OF MALIGNANT NEOPLASM OF 07/11/2019 LI LOPEZ APRN Ot F10.129 ALCOHOL ABUSE WITH INTOXICATION, UNSPECI 07/11/2019 LI LOPEZ APRN Ot F10.229 ALCOHOL DEPENDENCE WITH INTOXICATION, UN 07/11/2019 LI LOPEZ APRN Ot F31 .9 BIPOLAR DISORDER, UNSPECIFIED 07/11/2019 LI LOPEZ APRN Ot F41 .9 ANXIETY DISORDER, UNSPECIFIED 07/11/2019 LI LOPEZ APRN Ot G89.29 OTHER CHRONIC PAIN 07/11/2019 LI LOPEZ APRN Ot M54 .9 DORSALGIA, UNSPECIFIED 07/11/2019 LI LOPEZ APRN Ot Z77.22 CNTCT W AND EXPSR TO ENVIRON TOBACCO SMO 07/11/2019 LI LOPEZ APRN Ot Z79.82 CARE HOME (CURRENT) USE OF ASPIRIN 07/11/2019 LI LOPEZ APRN Ot Z80 .8 FAMILY HISTORY OF MALIGNANT NEOPLASM OF Procedures Code Description Performed By Per formed On Psychiatr [facility], Mental Health 10/09/2011 36275 UA W / CULTURE IF INDICATED 02/19/2012 67915 ROUT INE VENIPUNCTURE 02/22/2012 41622 CBC 02/22/2012 84716 LIPI D PANEL 02/22/2012 31628 CMP 02/22/2012 [id number] GF R CALC (RESULT ONLY) 02/22/2012 48165 TSH 02/23/2012 38088 MAMM OGRAM, SCREENING 02/23/2012 96714 HEMOCCULT 02/23/2012 86734 PAP SMEAR 02/23/2012 Q0091 PAP SMEAR OBTAIN SMEAR 02/23/2012 14242 URIN E DRUG SCREEN (IN-HOUSE) 01/18/2013 52973 MAMM OGRAM, SCREENING 01/19/2013 URINEDRUG URINE DRUG SCREEN (CON'F) 01/19/2013 05617 BONE DENSITY, DEXA 04/17/2013 GENERAL S K[place], Ken 04/17/2013 49815 BONE MINERAL DENSITY, HEEL US (IN HOUSE) 04/17/2013 79265 XRAY CERVICAL SPINE, 2 OR 3 VIEWS 06/02/2013 27956 ROUT INE VENIPUNCTURE 02/16/2014 90283 MAMM OGRAM, SCREENING 02/16/2014 [id number] GF R CALC (RESULT ONLY) 02/16/2014 79444 CMP 02/16/2014 Results Test Result Range Complete [...] 7-25 CREATININE 0.52 mg/dL 0.50-0.99 eGFR NON-AFR. [place] 101 mL/min/1.73m2 > OR = 60 eGFR [...] 21 U/L 6-29 Rapid Drug Screen + ETOH,[facility] - 06/23 16:39 Amphetamine NEGATIVE NEGATIVE Barbiturates NEGATIVE NEGATIVE Benzodiazepines NEGATIVE NEGATIVE Cocaine NEGATIVE NEGATIVE Ethanol, Urine 384.80 mg/dL 20.00-80.00 Marijuana NEGATIVE NEGATIVE Methylenedioxymethamphetamine NEGATIVE NEGATIVE Opiates NEGATIVE NEGATIVE Oxycodone NEGATIVE NEGATIVE Phencyclidine NEGATIVE NEGATIVE Propoxyphene NEGATIVE NEGATIVE Tricyclic Antidepressant NEGATIVE NEGAT CARSON [facility] - 06/24/19 17:00 Mycoplasma Positive Negative Rapid Drug Screen + ETOH,[facility] - 06/30 16:34 Amphetamine NEGATIVE NEGATIVE Barbiturates NEGATIVE NEGATIVE Benzodiazepines NEGATIVE NEGATIVE Cocaine NEGATIVE NEGATIVE Ethanol, Urine 334.30 mg/dL 20.00-80.00 Marijuana NEGATIVE NEGATIVE Methylenedioxymethamphetamine NEGATIVE NEGATIVE Opiates NEGATIVE NEGATIVE Oxycodone NEGATIVE NEGATIVE Phencyclidine NEGATIVE NEGATIVE Propoxyphene NEGATIVE NEGATIVE Tricyclic Antidepressant NEGATIVE NEGAT CARSON Encounters ACCT No. Visit Date/Time Discharge Status Pt. Type Provider Facility Loc./Unit Complaint [id number] 07/01/2019 15:46:00 07/01/2019 17:20 :00 [facility] [id number] 06/24/2019 16:24:00 06/24/2019 18:30 :00 DIS Outpatient ZHOU BECKFORD APRN [facility] ER [id number] 01/02/2019 12:21:00 01/02/2019 14:20: 00 DIS [facility] [id number] 12/11/2018 14:55:00 12/11/2018 23:59: 59 CLS Outpatient ZHOU BECKFORD APRN [place] [facility] ER [id number] 08/02/2018 18:29:00 08/02/2018 20:30: 00 DIS [facility] [id number] 10/03/2017 16:17:00 10/03/2017 19:00: 00 DIS Outpatient ALICIA YAP [place] [facility] ER [id number] 08/02/2018 18:41:14 Document Registration [id number] 07/03/2019 14:12:00 14:21:00 DIS Outpatient LI LOPEZ APRN [facility] ER INTOXICATED [id number] 07/02/2019 15:32:00 15:50:00 DIS Emergency LI LOPEZ APRN [facility] ER ETOH [id number] 12/22/2018 15:48:00 17:20:00 DIS Emergency TANNA LOPEZ MD [facility] ER ETOH [id number] 12/16/2018 09:07:00 23:59:59 CLS Preadmit DEVORA PINEDO, HUMA Sparks [facility] RAD SCREENING [id number] 10/12/2018 13:23:00 13:30:00 DIS Emergency MALIA JOLLY MD [facility] ER ILL [id number] 10/11/2018 15:18:00 15:32:00 DIS Emergency LI LOPEZ APRN [facility] ER ETOH [id number] 09/09/2018 19:00:00 20:45:00 DIS Emergency TANNA LOPEZ MD [facility] ER FALL [id number] 07/13/2018 17:16:00 19:38:00 DIS Emergency JENIFER MULLINS [facility] ER R ANKLE PAIN [id number] 06/30/2018 19:44:00 20:07:00 DIS Emergency LI LOPEZ APRN [facility] ER ETOH [id number] 06/30/2018 18:56:00 19:02:00 DIS Emergency MIKE DOMELVINA [facility] ER RESPIRATORY ISSUES [id number] 06/29/2018 20:32:00 23:16:00 DIS Emergency MARINA MULLINSIS [facility] ER FALL [id number] 10/12/2017 15:37:00 16:02:00 DIS Emergency MARINA MULLINSIS [facility] ER ETOH [id number] 10/10/2017 12:17:00 14:11:00 DIS Emergency JENIFER MULLINS [facility] ER SOB/ETOH [id number] 08/19/2017 18:05:00 018 18:55:00 DIS Emergency LI LOPEZ APRN [facility] ER SOB/ETOH DETOX [id number] 06/08/2017 20:29:00 018 21:10:00 DIS Emergency MELISSA GARCIA [facility] ER SOA [id number] 05/29/2017 16:55:00 018 18:10:00 DIS Emergency SHAHANA ROSENTHAL [facility] ER SOA [id number] 05/21/2017 21:00:00 018 22:16:00 DIS Emergency LI LOPEZ APRN [facility] ER SOB [id number] 05/19/2017 17:05:00 17:31:00 DIS Emergency ASHLYN PINEDO, HONEY Donaldson [facility] ER SOA [id number] 05/11/2017 21:12:00 018 21:57:00 DIS Emergency MELISSA GARCIA [facility] ER SOA [id number] 04/06/2017 18:38:00 018 20:05:00 DIS Emergency MELISSA GARCIA [facility] ER ANKLE PAIN [id number] 04/06/2017 12:39:00 018 15:08:00 DIS Emergency RIK PINEDO, MALIA Atkins [facility] ER DRUG/ETOH ABUSE [id number] 07/11/2016 16:09:00 017 19:12:00 DIS Emergency MELISSA GARCIA [facility] ER ALCOHOL INTOX [id number] 03/03/2016 15:38:00 017 16:45:00 DIS Emergency LI LOPEZ [employer] OFFICER [facility] ER R ANKLE PAIN [id number] 05/02/2015 16:39:00 016 13:14:00 DIS Inpatient FINESSE MOY MD [facility] 4TH RLL PNUEMONIA [id number] 11/19/2013 22:15:00 014 10:50:00 DIS Inpatient DANICA LERNER MD [facility] ICU ETOH INTOXICATION, AMS [id number] 10/02/2013 15:43:00 014 14:03:00 DIS Inpatient TACOS DO, BERRY K [facility] ICU SUICIDAL/HOMICIDAL IDEA TION, ETOH INTOXICATION [id number] 04/27/2013 09:25:00 014 23:59:59 CLS Outpatient APRIL QUINTANILLA [employer] [facility] RAD OSTEOPENIA [id number] 03/06/2013 10:54:00 014 23:59:59 CLS Outpatient HUMA LOZOYA MD [facility] RAD SCREENING [id number] 11/14/2012 15:16:00 23:59:59 CLS Outpatient [id number] 09/19/2012 13:31:00 23:59:59 CLS Outpatient [id number] 08/22/2012 15:17:00 23:59:59 CLS Outpatient [id number] 08/04/2012 14:36:00 23:59:59 CLS Outpatient [id number] 07/20/2012 12:07:00 13:45:00 DIS Emergency FRANCISCO ACEVEDO DO [facility] ER FELL INJ L ARM [id number] 09/13/2017 18:51:00 Document Registration [id number] 09/13/2017 11:13:00 Document Registration [id number] 03/16/2014 10:56:00 Document Registration [id number] 03/04/2012 10:23:00 Document Registration [id number] 01/13/2013 16:48:57 ACT Document Registration [id number] 02/16/2014 11:31:00 02/16/2014 23:59: 59 CLS Outpatient HUMA LOZOYA MD [id number] 12/02/2013 06:43:00 12/02/2013 23:59: 59 CLS Outpatient HUMA LOZOYA MD [id number] 11/27/2013 11:19:00 11/27/2013 23:59: 59 CLS Outpatient HUMA LOZOYA MD [id number] 10/30/2013 12:59:00 10/30/2013 23:59: 59 CLS Outpatient ADDIS SPRINGER APRN [id number] 09/18/2013 13:40:00 09/18/2013 23:59: 59 CLS Outpatient HUMA LOZOYA MD [id number] 07/25/2013 16:53:00 07/25/2013 23:59: 59 CLS Outpatient HUMA LOZOYA MD [id number] 06/02/2013 11:36:00 06/02/2013 23:59: 59 CLS Outpatient BERRY BALDERRAMA DO [id number] 06/02/2013 11:36:00 06/02/2013 23:59: 59 CLS Outpatient BERRY BALDERRAMA DO [id number] 04/17/2013 10:34:00 04/17/2013 23:59: 59 CLS Outpatient APRIL QUINTANILLA APRN [id number] 04/17/2013 10:34:00 04/17/2013 23:59: 59 CLS Outpatient APRIL QUINTANILLA APRN [id number] 03/02/2013 13:45:00 03/02/2013 23:59: 59 CLS Outpatient HUMA LOZOYA MD [id number] 03/02/2013 13:45:00 03/02/2013 23:59: 59 CLS Outpatient HUMA LZOOYA MD [id number] 01/18/2013 14:08:00 01/18/2013 23:59: 59 CLS Outpatient HUMA LOZOYA MD [id number] 12/19/2012 11:31:00 12/19/2012 23:59: 59 CLS Outpatient HUMA LOZOYA MD [id number] 09/29/2012 16:24:00 09/29/2012 23:59: 59 CLS Outpatient HUMA LOZOYA MD [id number] 03/28/2012 11:42:00 03/28/2012 23:59: 59 CLS Outpatient HUMA LOZOYA MD [id number] 02/22/2012 09:43:00 02/22/2012 23:59: 59 CLS Outpatient BERRY BALDERRAMA DO [id number] 02/19/2012 13:27:00 02/19/2012 23:59: 59 CLS Outpatient BERRY BALDERRAMA DO [id number] 10/02/2011 09:36:00 10/02/2011 23:59: 59 [place] [id number] 10/02/2011 09:36:00 10/02/2011 23:59:5 9 CLS Outpatient [id number] 06/24/2012 13:29:00 Document Registration [id number] 09/05/2018 14:00:00 09/05/2018 23:59: 59 CLS Outpatient HUMA LOZOYA MD [facility] [id number] 12/15/2018 10:40:00 Document Registration
== END 2019-07-14 18:09 | disposition left against medical advice (07) ==
LOC: EDUNIT# 17:48 → ER 17:49
DX: F10.20 Alcohol dependence, uncomplicated (principal); F31.9 Bipolar disorder, unspecified; F41.9 Anxiety disorder, unspecified; M54.9 Dorsalgia, unspecified; G89.29 Other chronic pain; Z79.82 Long term (current) use of aspirin; Z77.22 Contact with and (suspected) exposure to environmental tobacco smoke (acute) (chronic); Z80.8 Family history of malignant neoplasm of other organs or systems
CPT/HCPCS: 36415; 80053; 85025; 85610

== ENCOUNTER 2019-07-31 13:21 | Observation (INO) | payer MEDICARE, MEDICAID ==
[~2019-07-31] VITALS: Ht 167.6 cm; Wt 59.4 kg
--- NOTE | 2019-07-31 13:27 | ED Psychosocial ---
General Source: patient, EMS Exam Limitations: no limitations History of Present Illness Date Seen by Provider: Jul 31, 2019 Time Seen by Provider: 13:27 Initial Comments 64-year-old female brought in by EMS. EMS reports that they were called out by her mental health health specialist. Patient is a known alcoholic with chronic alcohol abuse and chronic intoxication. The mental health health specialist wanted her brought out for "detox" and mental health evaluation. Patient is making statements that she wants to hurt herself or others. That she can commit murder. She does not have a plan or indications of who she would like to hurt. Patient is heavily intoxicated and just states that "she could murder someone" she has repeated this multiple times. Otherwise she just rambles on but other things consistent with intoxication Allergies and Home Medications Allergies Coded Allergies: No Known Drug Allergies (Unverified , 07/20/12) Home Medications Aspirin 81 Mg Tablet.dr, 81 MG PO DAILY, (Reported) Buspirone HCl 10 Mg Tablet, 10 MG PO BID, (Reported) Cefpodoxime Proxetil 200 Mg Tablet, 200 MG PO BID Prescribed by: FINESSE DESAI on 05/04/15 1211 Diclofenac Sodium 75 Mg Tablet.dr, 75 MG PO BID, (Reported) Furosemide 40 Mg Tablet, 40 MG PO DAILY, (Reported) Gabapentin 300 Mg Capsule, 300 MG PO TID, (Reported) Hydrocodone/Acetaminophen 1 Each Tablet, 1 EACH PO Q4H PRN for PAIN Prescribed by: LI LOPEZ on 03/03/16 1620 Levomilnacipran Hydrochloride 80 Mg Cap.sa.24h, 80 MG PO DAILY, (Reported) Loratadine 10 Mg Tablet, 10 MG PO DAILY, (Reported) Lorazepam 0.5 Mg Tablet, 0.5 MG PO DAILY PRN for ANXIETY, (Reported) Multivitamin 1 Each Tablet, 1 TAB PO DAILY, (Reported) Potassium Chloride 20 Meq Tab.er.prt, 20 MEQ PO DAILY, (Reported) Quetiapine Fumarate 100 Mg Tablet, 100 MG PO HS, (Reported) Tizanidine HCl 4 Mg Tablet, 4 MG PO TID PRN for MUSCLE SPASMS, (Reported) Patient Home Medication List Home Medication List Reviewed: Yes Review of Systems Constitutional: no symptoms reported EENTM: no symptoms reported Respiratory: no symptoms reported Cardiovascular: no symptoms reported Gastrointestinal: no symptoms reported Psychiatric/Neurological: See HPI Limited based on patient's intoxication Past Vrmhyqj-Npbdoa-Xojteh Hx Past Med/Social Hx: Reviewed Nursing Past Med/Soc Hx Patient Social History Alcohol Beverage of Choice: Beer, Whiskey, [place] Drug of Choice: CANNIBUS Type Used: Cigarettes 2nd Hand Smoke Exposure: Yes Recent Hopitalizations: No Immunizations Up To Date Tetanus Booster (TDap): Unknown PED Vaccines UTD: No Seasonal Allergies Seasonal Allergies: No Past Medical History Surgeries: Yes (CYST ON OVARY) Respiratory: Yes Sleep Apnea, COPD Currently Using CPAP: No Currently Using BIPAP: No Cardiac: No Neurological: Yes Reproductive Disorders: No Female Reproductive Disorders: Denies Sexually Transmitted Disease: No HIV/AIDS: No Genitourinary: No Gastrointestinal: No Musculoskeletal: Yes (ANKLE FRACTURE) Arthritis, Chronic Back Pain Endocrine: No HEENT: No Cancer: No Psychosocial: Yes (alcoholism) Sleep Difficulties, Anxiety, Suicide Attempts, Bipolar, Depression Integumentary: No Blood Disorders: No Family Medical History Alcoholism 19 FATHER G8 BROTHER G8 BROTHER G8 BROTHER G8 SISTER G8 SISTER FH: brain cancer G8 SISTER Neoplasm 19 MOTHER No Pertinent Family Hx Physical Exam Vital Signs - First Documented 07/31/19 07/31/19 13:32 15:05 Temp 36.9 Pulse 78 Resp 18 B/P (MAP) 121/77 (92) Pulse Ox 95 O2 Delivery Room Air Capillary Refill : Height, Weight, BMI Height: 5'3.00" Weight: 115lbs. 8.0oz. 52.817320ug; 18.00 BMI Method:Estimated General Appearance: no apparent distress, other (intoxicated ) Respiratory: lungs clear, normal breath sounds Cardiovascular: normal peripheral pulses, regular rate, rhythm Gastrointestinal: non tender, soft Extremities: normal range of motion Neurologic/Psychiatric: other (obviously intoxicated) Appearance/Memory: impaired insight Behavior/Eye Contact: cooperative, compulsive Thoughts/Hallucinations: other (please see history of present illness) Skin: normal color, warm/dry Progress/Results/Core Measures Results/Orders Lab Results Laboratory Tests Test 07/31/19 13:31 07/31/19 13:38 Range/Units Urine Color YELLOW Urine Clarity CLEAR Urine pH 5.5 5-9 Urine Specific [place] <=1.005 1.016-1.022 Urine Protein NEGATIVE NEGATIVE Urine Glucose (UA) NEGATIVE NEGATIVE Urine Ketones NEGATIVE NEGATIVE Urine Nitrite NEGATIVE NEGATIVE Urine Bilirubin NEGATIVE NEGATIVE Urine Urobilinogen 0.2 < = 1.0 MG/DL Urine Leukocyte Esterase TRACE H NEGATIVE Urine RBC (Auto) TRACE-L NEGATIVE Urine RBC RARE /HPF Urine WBC RARE /HPF Urine Squamous Epithelial Cells 0-2 /HPF Urine Crystals NONE /LPF Urine Bacteria TRACE /HPF Urine Casts NONE /LPF Urine Mucus NEGATIVE /LPF Urine Yeast RARE /HPF Urine Culture Indicated YES Urine Opiates Screen NEGATIVE NEGATIVE Urine Oxycodone Screen NEGATIVE NEGATIVE Urine Methadone Screen NEGATIVE NEGATIVE Urine Propoxyphene Screen NEGATIVE NEGATIVE Urine Barbiturates Screen NEGATIVE NEGATIVE Ur Tricyclic Antidepressants Screen NEGATIVE NEGATIVE Urine Phencyclidine Screen NEGATIVE NEGATIVE Urine Amphetamines Screen NEGATIVE NEGATIVE Urine Methamphetamines Screen NEGATIVE NEGATIVE Urine Benzodiazepines Screen NEGATIVE NEGATIVE Urine Cocaine Screen NEGATIVE NEGATIVE Urine Cannabinoids Screen NEGATIVE NEGATIVE White Blood Count 8.7 4.3-11.0 10^3/uL Red Blood Count 4.28 L 4.35-5.85 10^6/uL Hemoglobin 14.8 11.5-16.0 G/DL Hematocrit 43 35-52 % Mean Corpuscular Volume 100 H 80-99 FL Mean Corpuscular Hemoglobin 35 H 25-34 PG Mean Corpuscular Hemoglobin Concent 35 32-36 G/DL Red Cell Distribution Width 12.3 10.0-14.5 % Platelet Count 63 L 130-400 10^3/uL Mean Platelet Volume 13.1 H 7.4-10.4 FL Neutrophils (%) (Auto) 64 42-75 % Lymphocytes (%) (Auto) 22 12-44 % Monocytes (%) (Auto) 11 0-12 % Eosinophils (%) (Auto) 2 0-10 % Basophils (%) (Auto) 1 0-10 % Neutrophils # (Auto) 5.6 1.8-7.8 X 10^3 Lymphocytes # (Auto) 1.9 1.0-4.0 X 10^3 Monocytes # (Auto) 0.9 0.0-1.0 X 10^3 Eosinophils # (Auto) 0.2 0.0-0.3 10^3/uL Basophils # (Auto) 0.1 0.0-0.1 10^3/uL Sodium Level 130 L 135-145 MMOL/L Potassium Level 4.1 3.6-5.0 MMOL/L Chloride Level 96 L 98-107 MMOL/L Carbon Dioxide Level 18 L 21-32 MMOL/L Anion Gap 16 H 5-14 MMOL/L Blood Urea Nitrogen 5 L 7-18 MG/DL Creatinine 0.57 L 0.60-1.30 MG/DL Estimat Glomerular Filtration Rate > 60 BUN/Creatinine Ratio 9 Glucose Level 88 70-105 MG/DL Calcium Level 8.7 8.5-10.1 MG/DL Corrected Calcium 8.5 8.5-10.1 MG/DL Total Bilirubin 0.7 0.1-1.0 MG/DL Aspartate Amino Transf (AST/SGOT) 212 H 5-34 U/L Alanine Aminotransferase (ALT/SGPT) 73 H 0-55 U/L Alkaline Phosphatase 99 40-136 U/L Total Protein 7.3 6.4-8.2 GM/DL Albumin 4.3 3.2-4.5 GM/DL Salicylates Level < 5.0 L 5.0-20.0 MG/DL Acetaminophen Level < 10 L 10-30 UG/ML Serum Alcohol 332 *H <10 MG/DL My Orders Orders - RAUL WHITTAKER L DO Ua Culture If Indicated (07/31/19 13:27) Cbc With Automated Diff (07/31/19 13:27) Comprehensive Metabolic Panel (07/31/19 13:27) Alcohol (07/31/19 13:27) Drug Screen Stat (Urine) (07/31/19 13:27) Acetaminophen (07/31/19 13:27) Salicylate (07/31/19 13:27) Ekg Tracing (07/31/19 13:27) Monitor-Rhythm Ecg Trace Only (07/31/19 13:27) Bh Status Checks/Observation Q15M (07/31/19 13:27) Urine Culture (07/31/19 13:31) Vital Signs/I&O 07/31/19 07/31/19 13:32 15:05 Temp 36.9 Pulse 78 77 Resp 18 17 B/P (MAP) 121/77 (92) 131/72 Pulse Ox 95 O2 Delivery Room Air Room Air Progress Progress Note : Time: 14:28 Progress Note Patient with severe alcohol intoxication. We will admit her test [facility]. As patient's over that we can reevaluate and have behavioral health reevaluate. Departure Communication (Admissions) Time/Spoke to Admitting Phy: 14:27 Okay to admit, we will reevaluate once blood alcohol level and intoxication resolves Impression Primary Impression: Alcohol intoxication Qualified Codes: F10.920 - Alcohol use, unspecified with intoxication, uncomplicated Additional Impression: Suicidal thoughts Disposition: ADMITTED INPATIENT Condition: Stable Admissions Decision to Admit Reason: Admit from ER (General) Decision to Admit/Date: Jul 31, 2019 Time/Decision to Admit Time: 14:25 Departure-Patient Inst. Referrals: HUMA LOZOYA MD (PCP/Family) Primary Care Physician RAUL WHITTAKER DO Jul 31, 2019 13:27
[2019-07-31 13:37] LABS: BILIRUBIN,URINE NEGATIVE (NEGATIVE); CLARITY,URINE CLEAR; COLOR,URINE YELLOW; GLUCOSE, URINE (UA) NEGATIVE (NEGATIVE); KETONES,URINE NEGATIVE (NEGATIVE); LEUKOCYTE ESTERASE ,URINE TRACE (NEGATIVE); NITRITE,URINE NEGATIVE (NEGATIVE); PH,URINE 5.5 (5-9); PROTEIN,URINE NEGATIVE (NEGATIVE)
[2019-07-31 13:45] LABS: BASOPHILS # (AUTO) 0.1 10^3/uL (0.0-0.1); BASOPHILS % (AUTO) 1 % (0-10); EOSINOPHILS # (AUTO) 0.2 10^3/uL (0.0-0.3); EOSINOPHILS % (AUTO) 2 % (0-10); HEMATOCRIT 43 % (35-52); HEMOGLOBIN 14.8 G/DL (11.5-16.0); LYMPHOCYTES # (AUTO) 1.9 X 10^3 (1.0-4.0); LYMPHOCYTES % (AUTO) 22 % (12-44); MEAN CORPUSCULAR HEMOGLOBIN 35 PG (25-34); MEAN CORPUSCULAR HGB CONC 35 G/DL (32-36); MEAN CORPUSCULAR VOLUME 100 FL (80-99); MEAN PLATELET VOLUME 13.1 FL (7.4-10.4); MONOCYTES # (AUTO) 0.9 X 10^3 (0.0-1.0); MONOCYTES % (AUTO) 11 % (0-12); NEUTROPHILS # (AUTO) 5.6 X 10^3 (1.8-7.8); NEUTROPHILS % (AUTO) 64 % (42-75); RED CELL DISTRIBUTION WIDTH 12.3 % (10.0-14.5); WHITE BLOOD COUNT 8.7 10^3/uL (4.3-11.0)
[2019-07-31 13:47] LABS: BACTERIA,URINE TRACE /HPF; RBC,URINE RARE /HPF; SQUAMOUS EPITHELIAL CELL,UR 0-2 /HPF; WBC,URINE RARE /HPF; YEAST,URINE RARE /HPF
[2019-07-31 13:51] LABS: AMPHETAMINE SCREEN, URINE NEGATIVE (NEGATIVE); BARBITURATE SCREEN URINE NEGATIVE (NEGATIVE); BENZODIAZEPINES SCREEN URINE NEGATIVE (NEGATIVE); CANNABINOID SCREEN, URINE NEGATIVE (NEGATIVE); COCAINE SCREEN URINE NEGATIVE (NEGATIVE); METHADONE STAT NEGATIVE (NEGATIVE); METHAMPHETAMINE SCREEN URINE S NEGATIVE (NEGATIVE); OPIATE SCREEN URINE NEGATIVE (NEGATIVE); OXYCODONE STAT NEGATIVE (NEGATIVE); PROPOXYPHENE STAT NEGATIVE (NEGATIVE); TRICYCLIC ANTIDEPRESSANTS SCRE NEGATIVE (NEGATIVE)
[2019-07-31 13:55] LABS: CHLORIDE 96 MMOL/L (98-107); POTASSIUM 4.1 MMOL/L (3.6-5.0); SODIUM 130 MMOL/L (135-145)
[2019-07-31 13:56] LABS: ALBUMIN 4.3 GM/DL (3.2-4.5)
[2019-07-31 13:57] LABS: CALCIUM 8.7 MG/DL (8.5-10.1)
[2019-07-31 13:58] LABS: GLUCOSE 88 MG/DL (70-105); TOTAL PROTEIN 7.3 GM/DL (6.4-8.2)
[2019-07-31 13:59] LABS: CARBON DIOXIDE 18 MMOL/L (21-32)
[2019-07-31 14:00] LABS: BILIRUBIN,TOTAL 0.7 MG/DL (0.1-1.0)
[2019-07-31 14:02] LABS: ALKALINE PHOSPHATASE 99 U/L (40-136); CREATININE SERUM 0.57 MG/DL (0.60-1.30); GFR ESTIMATED > 60
[2019-07-31 14:03] LABS: BUN/CREATININE RATIO 9
[2019-07-31 14:05] LABS: ACETAMINOPHEN < 10 UG/ML (10-30); ALANINE AMINOTRANSFERASE 73 U/L (0-55); SALICYLATE < 5.0 MG/DL (5.0-20.0)
[2019-07-31 14:15] LABS: PLATELET COUNT 63 10^3/uL (130-400)
[2019-07-31 15:05] VITALS: BP 131/72
--- OUTSIDE RECORDS SUMMARY | 2019-07-31 15:16 | XMS REPORT ---
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 [employer] [facility] [place] [employer] [facility] [employer] Address [address] [address] Care Team Providers Care Facilities Management Executive Name Role Phone HUMA LOZOYA Unavailable DEVORA, HUMA Unavailable DEVORA, HUMA Unavailable HUMA LOZOYA Unavailable DEVORA, HUMA Unavailable HUMA LOZOYA Unavailable DEVORA, HUMA Unavailable AMBER MCKEON DO Unavailable Unavailable LI LOPEZ APRN Unavailable Unavailable HUMA LOZOYA Unavailable APRIL QUINTANILLA JAIL OFFICER Unavailable Unavailable BALDERRAMA DO, BERRY K Unavailable Unavailable BALDERRAMA DO, BERRY K Unavailable Unavailable FRANCISCO ACEVEDO DO Unavailable Unavailable YANN PINEDO, DANICA Tanner Unavailable Unavailable YANN PINEDO, DANICA Tanner Unavailable Unavailable LI LOPEZ APRN Unavailable Unavailable RIK PINEDO, MALIA Atkins Unavailable Unavailable HUMA LOZOYA MD Unavailable Unavailable GISELLE PINEDO, FINESSE Trammell Unavailable Unavailable GISELLE PINEDO, FINESSE Trammell Unavailable Unavailable MELISSA GARCIA Unavailable Unavailable JOO CHRISTINE MD Unavailable Unavailable Migration, Doctor Unavailable Unavailable Migration, Doctor Unavailable Unavailable Migration, Doctor Unavailable Unavailable Migration, Doctor Unavailable Unavailable Migration, Doctor Unavailable Unavailable Migration, Doctor Unavailable Unavailable Migration, Doctor Unavailable Unavailable JENIFER MULLINS Unavailable Unavailable LI LOPEZ JAIL OFFICER Unavailable Unavailable MARISEL CRUZ Unavailable Unavailable CULLEN BENTON Unavailable Unavailable CULLEN [place]ON Unavailable Unavailable HUMA LOZOYA Unavailable TIFFANY BARKER Unavailable HUMA LOZOYA Unavailable DEVORA, HUMA Unavailable HUERTER, HUMA Unavailable LUCERO, TIFFANY [...] ALFREDO Unavailable Unavailable HUERTER, HUMA F PCP HARPREET MARTÍNEZ, JENIFER Unavailable Unavailable JANNETH, AMBER Unavailable Unavailable JANNETH, AMBER Unavailable Unavailable RIK PINEDO, MALIA Atkins Unavailable Unavailable ASHLYN PINEDO, HONEY Donaldson Unavailable Unavailable STACY BARKERNDA Unavailable HUERTER, HUMA Unavailable MADL, MIGUE Unavailable MADL, MIGUE Unavailable zAPRIL Robbins Unavailable MADL, MIGUE Unavailable MADL, MIGUE Unavailable HUERTER, HUMA Unavailable MADL, MIGUE Unavailable HUERTER, HUMA Unavailable HUERTER, HUMA Unavailable HUERTER, HUMA Unavailable HUERTER, HUMA Unavailable APRIL Shelton Unavailable APRIL Shelton Unavailable HUERTER, HUMA Unavailable [...] MD Unavailable Unavailable SHAHANA LEAVITT Unavailable Unavailable DEVORA, HUMA Unavailable HUERTER, HUMA Unavailable RAUL WHITTAKER DO Unavailable Unavailable Unavailable Unavailable Unavailable Unavailable Unavailable Unavailable Unavailable Unavailable Unavailable Unavailable Unavailable Unavailable Unavailable Unavailable Unavailable Unavailable Unavailable Unavailable Allergies Normalized Allergy Reported Date of Reaction(s) Care Provider Facility Allergy Type classification allergen Allergy Onset DA (21 Unclassified No Known Drug 07-20-2012 - no information APRIL QUINTANILLA Not Available sources.) Allergies (75358) no information Unclassified NO KNOWN DRUG UNKNOWN [facility] (4 sources.) ALLERGIES [address] ([address]) Medications Medication Ingredient Drug Dose Dates Status [...] information 16 d information -Cod eine name (4 Discontinued sources.) NOT APPLICABLE 180 May 02, [...] mental 07-02-2019 - Episodic Active FINESSE COCHRAN [facility] Via codes; status, , MD Ferrer unclassified unspecified Hospital - (11 sources.) [place] ([address]) External cause Blood alcohol 06-30-2019 - Episodic Active JULIEN ALEXANDER [facility] codes: level of 240 [facility] Unspecified mg/100 ml or [place] (24 sources.) [facility] ([address]640) Translations: [ OTHER EXTERNAL CAUSE STATUS, BLOOD ALCOHOL LEVEL OF 120-199 MG/100 ML] Chronic Chronic 07-02-2019 - Chronic Active ESTELLA MARIE Via obstructive obstructive [facility] pulmonary pulmonary [facility] - disease and disease, [place] bronchiectasis unspecified (84353) (24 sources.) Coma; stupor; Coma scale, 07-02-2019 - Episodic Active JENIFER MULLINS [facility] Via and brain best verbal [place] damage (20 response, Hospital - sources.) oriented, at [place] arrival to (89268) emergency department Translations: [ COMA SCALE, BEST MOTOR RESPONSE, OBEYS C, COMA SCALE, EYES OPEN, SPONTANEOUS, EMR] Residual Contact with 07-02-2019 - Episodic Active ESTELLA MARIE Via codes; and DEVORAH Ferrer unclassified (suspected) Hospital - (23 sources.) exposure to [place] environmental (81410) tobacco smoke (acute) (chronic) Superficial Contusion of 07-02-2019 - Episodic Active JENIFER B DAVIDOT [facility] Via injury; other part of [place] contusion (16 head, initial Hospital - sources.) encounter [place] Translations: (81145) [ Contusion of face] Other Effusion, left 07-02-2019 - Episodic Active MALIA [facility] Via non-traumatic ankle [place] JOLLY joint Hospital - disorders (14 [place] sources.) (20875) External cause Exposure to 07-02-2019 - Episodic Active LI LOPEZ [facility] Via codes: other JAIL OFFICERFlores Ferrer Natural/enviro specified Hospital - nment (18 factors, [place] sources.) initial (87021) encounter Residual Family history 07-02-2019 - Episodic Active LI CARRILLO [facility] Via codes; of malignant JAIL OFFICER [place] unclassified neoplasm of Hospital - (24 sources.) other organs [place] or systems (54464) Translations: [ CNTCT W AND EXPSR TO ENVIRON TOBACCO SMO] Residual Illness, 07-02-2019 - Episodic Active MALIA [facility] V ia codes; unspecified [place] JOLLY MD Hospital - (20 sources.) [place] ([address]77) Other manager terminal 07-02-2019 - Episodic Active LI LOPEZ [facility] Via aftercare (24 (current) use JAIL OFFICER [place] sources.) of aspirin Hospital - [place] (64861) Other lower Lung mass Episodic Active HUMA Hernandez ion Via respiratory 23951 [place] disease (4 Hospital sources.) (77665) Bacterial Mycoplasma 06-30-2019 - Episodic Active ZHOU LEOS [facility] infection; infection, [facility] unspecified unspecified [place] site (12 site County ([address]) sources.) Translations: [ MYCOPLASMA INFECTION IN CONDITIONS CLASSIFIED ELSEWHERE AND OF UNSPECIFIED SITE] Other nervous Other chronic Chronic Active BERRY BALDERRAMA , N ot Available system pain DO (14720) disorders (5 sources.) Attention-defi Other conduct Chronic Active BERRY BALDERRAMA , Not Available 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 (75640) and disruptive behavior disorders (5 sources.) External cause Other fall on 07-02-2019 - Episodic Active MARINA IS BERNOT [facility] Via codes: Fall same level, [place] (20 sources.) initial Hospital - encounter [place] Translations: (02316) [ FALL (ON)(FROM) SIDEWALK CURB, INITIAL E, FALL SAME LEV FROM SLIP/TRIP W STRIKE AG, UNSPECIFIED FALL, INITIAL ENCOUNTER] Other Other long 07-02-2019 - Episodic Active LI LOPEZ [facility] Via aftercare (20 term (current) JAIL OFFICER [place] sources.) drug therapy Hospital - [place] (69761) Substance-rela Other 07-02-2019 - Episodic Active FINESSE COCHRAN [facility] Via arlin disorders psychoactive , MD Ferrer (27 sources.) substance use, Hospital - unspecified, [place] uncomplicated (44983) Translations: [ CANNABIS USE, UNSPECIFIED, UNCOMPLICATED] Other Pain in 07-02-2019 - Episodic Active HONEY [facility] V ia connective unspecified MD [place] GOLDBERG tissue disease limb Hospital - (10 sources.) [place] ([address]342) Residual Patient's 07-02-2019 - Episodic Active FINESSE DESAI [facility] Via codes; other , MD Ferrer unclassified noncompliance Hospital - (14 sources.) with [place] medication (03350) regimen Translations: [ SLEEP APNEA, UNSPECIFIED, ALTERED MENTAL STATUS, UNSPECIFIED] Other injuries Personal 07-02-2019 - Episodic Active SHAHANA ROSENTHAL [facility] Via and conditions 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[place] due 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) Hospital - external traumatic [place] causes (10 fracture (91087) sources.) Genitourinary Personal 07-02-2019 - Episodic Active LI Escoto [facility] Via symptoms and history of JAIL OFFICER [place] ill-defined other diseases Hospital - conditions (26 of urinary [place] sources.) system (96922) Suicide and Personal 07-02-2019 - Episodic Active LI LOPEZ [facility] Via intentional history of JAIL OFFICER [place] self-inflicted self-harm Hospital - injury (24 Translations: [place] sources.) [ SUICIDAL (35604) IDEATION] Pneumonia Pneumonia, 07-02-2019 - Episodic Active FINESSE Atkins [facility] Via (except that unspecified , MD Ferrer caused by organism Hospital - tuberculosis [place] or sexually (85308) transmitted disease) (14 sources.) Other lower Respiratory 07-02-2019 - Episodic Active AMBER MCKEON DO [facility] Via respiratory disorder, [place] disease (20 unspecified Hospital - sources.) [place] (62314) Septicemia Sepsis, 07-02-2019 - Episodic Active FINESSE DESAI [facility] Via (except in unspecified , MD Ferrer labor) (9 organism Hospital - sources.) [place] (86149) Other lower Shortness of 07-02-2019 - Episodic Active AMBER BENY O , DO [facility] Via respiratory breath [place] disease (25 Hospital - sources.) [place] (50265) Other lower Shortness of Episodic Active no name Hospita l respiratory breath [facility] disease (5 [place] sources.) [facility] (88572) External cause Sidewalk as 07-02-2019 - Episodic Active LI LOPEZ [facility] Via codes: Place the place of [facility] of occurrence occurrence of Hospital - (19 sources.) the external [place] cause (76793) Translations: [ UNSP PLACE IN UNSP NON-INSTITUT (PRIVATE] Residual Sleep apnea, 07-02-2019 - Chronic Active LI LOPEZ [facility] Via codes; unspecified JAIL OFFICER [place] unclassified Hospital - (21 sources.) [place] ([address]218) NEGATED Sleep no information Active no name no infor mation no disorder, information (3 unspecified sources.) Translations: [ SLEEP APNEA, UNSPECIFIED, CNTCT W AND EXPSR TO ENVIRON TOBACCO SMO, FAMILY HISTORY OF MALIGNANT NEOPLASM OF ] Residual Sleep 07-02-2019 - Episodic Active SHAHANA ROSENTHAL [facility] Via codes; disorder, PLATE GLASS GRINDER [place] unclassified unspecified Hospital - (9 sources.) [place] (82430) Other lower Solitary 07-02-2019 - Episodic Active TANNA JOHN [facility] Via respiratory pulmonary [place] disease (10 nodule Hospital - sources.) [place] (80345) Residual Tobacco use 06-30-2019 - Episodic Active ZHOU GOVEA R Hospital codes; [facility] unclassified [place] (31 sources.) [facility] (92966) Other injuries Unspecified 07-02-2019 - Episodic Active JENIFER MULLINS [facility] Via and conditions injury of [place] due to face, initial Hospital - external encounter [place] causes (12 (67565) sources.) Past or Other Problems Problem Normalized Date Last Normalized Normalized Provider Fa cility Classification Problem(s) Recorded Problem Problem Sta tus Duration External cause Accidental no information Completed FRANCISCO N ot Available codes: Fall fall on or [place] , DO (53194) (20 sources.) from other stairs or steps Translations: [ UNSPECIFIED FALL, INITIAL ENCOUNTER, FALL SAME LEV FROM SLIP/TRIP W STRIKE AG, FALL (ON)(FROM) SIDEWALK CURB, INITIAL E, Fall on same level, Fall] Residual Altered mental Episodic Completed DANICA LERNER Not Available codes; status , (91617) unclassified (5 sources.) Fracture of Closed Episodic Completed FRANCISCO Not Availab le upper limb (5 fracture of [place] , DO (53334) sources.) greater tuberosity of humerus Coma; stupor; Coma scale, no information no information JENIFER BERNOT [facility] Via and brain best verbal [place] damage (6 response, Hospital - sources.) oriented, at [place] arrival to (18751) emergency department Translations: [ COMA SCALE, BEST MOTOR RESPONSE, OBEYS C, COMA SCALE, EYES OPEN, SPONTANEOUS, EMR] Other bone Disorder of Episodic Completed APRIL DWIGHT Not Av ailable disease and bone and (33238) musculoskeleta cartilage, l deformities unspecified (5 sources.) External cause Exposure to no information no information LI LOPEZ Not Available codes: other (87566) Natural/enviro specified nment (11 factors, sources.) initial encounter Headache; Headache Episodic Completed BERRY BALDERRAMA , Not Availa ble including DO (16839) migraine (5 sources.) External cause Home accidents no information no information LAW RENCE Not Available codes: Place Translations: DO [place] (56766) of occurrence [ [facility] [address]ACE (12 sources.) IN [facility] NON-INSTITUT (PRIVATE, SIDEWALK THE PLACE OF OCCURRENCE OF T] Impulse Homicidal Episodic Completed BERRY BALDERRAMA , Not Avail able control ideation DO (39417) disorders NEC (5 sources.) External cause Other external no information no information LAW RENCE Not Available codes: cause status DO [place] (19890) Unspecified Translations: (20 sources.) [ OTHER EXTERNAL CAUSE STATUS, BLOOD ALCOHOL LEVEL OF 120-199 MG/100 ML, BLOOD ALCOHOL LEVEL OF 240 MG/100 ML OR MORE] Septicemia Sepsis, no information no information FINESSE DESAI Not Available (except in unspecified , (95497) labor) (5 organism sources.) Other injuries Shoulder and Episodic Completed FRANCISCO Not Available and conditions upper arm DO [place] (06206) due to injury external causes (5 sources.) Residual Sleep apnea, no information no information FINESSE ZELAYA Not Available codes; unspecified MD (98311) unclassified Translations: (20 sources.) [ FAMILY HISTORY OF MALIGNANT NEOPLASM OF , CNTCT W AND EXPSR TO ENVIRON TOBACCO SMO] Procedures Procedure Normalized Procedure Procedure Result Performer Facility Date 02-16-2014 Collection venous no information no name [facility] blood venipuncture [facility] (50951) 02-16-2014 Comprehensive no information no name [facility] metabolic panel [facility] (90910) 01-18-2013 Drug screen, no information no name [facility] qualitate/multi [facility] (38508) 04-17-2013 Dxa bone density study no information no name [facility] 1/> sites axial skel [facility] (36270) 03-19-2014 Mammogram, screening no information no name [facility] (71226) 06-02-2013 Radex spine cervical 2 no information no name [facility] or 3 views [facility] (69657) 04-17-2013 Us bone density nasim & no information no name [facility] interp periph any [facility] (94041) Immunizations Normalized Immunization Date Notes Care Provider Facili ty Immunization influenza, 02-16-2014 no information HUMA LOZOYA 49239 Pending sale to [facility] injectable, [place], [place] ([address]1100) contains preservative influenza, seasonal, 12-15-2018 no information no name Co [facility] injectable [facility] (66962) pneumococcal 07-17-2019 no information no name [facility] polysaccharide [facility] vaccine, 23 valent - [place] (84206) no information 12-22-2018 no information HUMA LOZOYA [address] [place] [address] [facility] (63205) Results Test Name Value Interpretation Reference Range Date Time Fa cility (Normalized) (Normalized) (Medline Reference) laboratory on 2019-07-14 Albumin 4.7 g/dL (H) 3.4 - 5.4 g/dL 07-14-2019 PENDING LOCATION [Mass/Vol] 13:50-0400 [facility] (84215) ALP [Catalytic 117 U/L (NEG) 44 - 147 U/L 07-14-2019 PEND ING LOCATION activity/Vol] 13:50-0400 [facility] (59756) ALT [Catalytic 45 U/L (NEG) 4 - 40 U/L 07-14-2019 PENDIN G LOCATION activity/Vol] 13:50-0400 [facility] (77126) Anion gap 18 mmol/L (H) 3 - 11 mmol/L 07-14-2019 PENDING LOCATION [Moles/Vol] 13:50-0400 [facility] (37883) AST [Catalytic 81 U/L (H) 10 - 34 U/L 07-14-2019 PENDI NG LOCATION activity/Vol] 13:50-0400 [facility] (02372) Basophils (Bld) 0.1 10*3/uL (NEG) 0 - 0.3 10*3/uL 07-14-2019 PENDING LOCATION [#/Vol] 13:50-0400 [facility] (29475) Basophils/100 1 % (NEG) 0.5 - 1 % 07-14-2019 PENDING LOCATION WBC (Bld) 13:50-0400 [facility] (22880) Bilirubin 0.5 mg/dL (NEG) 0.1 - 1.2 mg/dL 07-14-2019 PENDIN G LOCATION [Mass/Vol] 13:50-0400 [facility] (49492) Calcium 9.3 mg/dL (NEG) 8.5 - 10.2 mg/dL 07-14-2019 PENDI NG LOCATION [Mass/Vol] 13:50-0400 [facility] (25238) Chloride 96 mmol/L (L) 95 - 106 mmol/L 07-14-2019 PENDIN G LOCATION [Moles/Vol] 13:50-0400 [facility] (97332) CO2 [Moles/Vol] 21 mmol/L (NEG) 23 - 29 mmol/L 2020 P ENDING LOCATION 13:50-0400 [facility] (75508) Creatinine 0.64 mg/dL (NEG) 07-14-2019 PENDING LOCATI ON [Mass/Vol] 13:50-0400 [facility] (78701) Creatinine and > (no code) 07-14-2019 PENDING LOC ATION Glomerular 13:50-0400 [facility] (43662) filtration rate.predicted panel - Serum, Plasma or Blood Eosinophils 0.1 10*3/uL (NEG) 0.05 - 0.5 07-14-2019 PENDING LOCATION (Bld) [#/Vol] 10*3/uL 13:50-0400 [facility] (61778) Eosinophils/100 1 % (NEG) 1 - 4 % [facility] WBC [facility]Bld[facility]:50-0400 [facility] (87053) Erythrocyte 12.6 % (NEG) 11.6 - 14.6 % [facility] distribution 13:50-0400 [facility] (42163) width (RBC) [Ratio] Glucose 93 mg/dL (NEG) 60 - 125 mg/dL 07-14-2019 PENDING LOCATION [Mass/Vol] 13:50-0400 [facility] (96836) Hematocrit (Bld) 44 % (NEG) 36.1 - 50.3 % 07-14-2019 P ENDING LOCATION [Volume 13:50-0400 [facility] (25169) fraction] Hemoglobin (Bld) 15.4 g/dL (NEG) 12.1 - 17.2 g/dL 07-14-2019 PENDING LOCATION [Mass/Vol] 13:50-0400 [facility] (89097) INR Coag 0.8 (NEG) 07-14-2019 PENDING LOCATI ON (Platelet poor 13:50-0400 [facility] (44025) plasma or blood) [Relative time] Lymphocytes 2.7 10*3/uL (NEG) 0.9 - 2.9 07-14-2019 PENDING LOCATION (Bld) [#/Vol] 10*3/uL 13:50-0400 [facility] (57153) Lymphocytes/100 30 % (NEG) 20 - 40 % [facility]ld[facility] 13:50-0400 [facility] (00395) MCH (RBC) 35 pg (H) 27 - 31 pg 07-14-2019 PENDING LOC ATION [Entitic mass] 13:50-0400 [facility] (28278) MCHC (RBC) 35 g/dL (NEG) 32 - 36 g/dL 07-14-2019 PENDING LOCATION [Mass/Vol] 13:50-0400 [facility] (54436) MCV (RBC) 99 (NEG) 07-14-2019 PENDING LOCATI ON [Entitic vol] 13:50-0400 [facility] (39464) Monocytes (Bld) 1.3 10*3/uL (H) 0.3 - 0.9 07-14-2019 PEND ING LOCATION [#/Vol] 10*3/uL 13:50-0400 [facility] (32341) Monocytes/100 14 % (H) 2 - 8 % 07-14-2019 PENDING LOCATION WBC (Bld) 13:50-0400 [facility] (02656) Neutrophils 5.0 10*3/uL (NEG) 1.7 - 7 10*3/uL 07-14-2019 [facility] LOCATION (Bld) [#/Vol] 13:50-0400 [facility] (49619) Neutrophils/100 55 % (NEG) 40 - 60 % 07-14-2019 PENDIN G LOCATION WBC (Bld) 13:50-0400 [facility] (63412) Platelet mean 10.4 (NEG) 07-14-2019 PENDING LOCA TION volume (Bld) 13:50-0400 [facility] (33852) [Entitic vol] Platelets (Bld) 175 10*3/uL (NEG) 150 - 450 07-14-2019 PEND ING LOCATION [#/Vol] 10*3/uL 13:50-0400 [facility] (63821) Potassium 4.1 mmol/L (NEG) 3.7 - 5.2 mmol/L 07-14-2019 PEND ING LOCATION [Moles/Vol] 13:50-0400 [facility] (62882) Protein 7.8 g/dL (NEG) 6.4 - 8.3 g/dL 07-14-2019 PENDING LOCATION [Mass/Vol] 13:50-0400 [facility] (20033) PT Coag (PPP) 11.7 s (L) 9.4 - 12.5 s 07-14-2019 PENDI NG LOCATION [Time] 13:50-0400 [facility] (37907) RBC (Bld) 4.47 10*6/uL (NEG) 4.2 - 6.1 07-14-2019 PENDING L OCATION [#/Vol] 10*6/uL 13:50-0400 [facility] (10299) Sodium 135 mmol/L (NEG) 135 - 145 mmol/L 07-14-2019 PEND ING LOCATION [Moles/Vol] 13:50-0400 [facility] (91953) Urea nitrogen 6 mg/dL (L) 7 - 20 mg/dL 07-14-2019 PENDI NG LOCATION [Mass/Vol] 13:50-0400 [facility] (06040) Urea 9 mg/mg (no code) 6 - 22 mg/mg 07-14-2019 PENDING L OCATION nitrogen/Creatin 13: S () ine [Mass ratio] WBC (Bld) 9.2 10*3/uL (NEG) 3.5 - 10.5 07-14-2019 PENDING L OCATION [#/Vol] 10*3/uL 13: [facility] () not yet categorized on 2019-07-01 Electrocardiogra Complete (no code) 07-01-2019 Hospital ms recorded 12: [facility] () Urine Volume Urine Volume (no code) 07-01-2019 Hospital Sufficient 12: [facility] (10mL) [facility] () no information Urine Saved if (A) 07-01-2019 Hospital Culture Needed 12: [facility] (48hrs from time [facility] of collection) () laboratory on 2019-07-01 Albumin BCG dye 4.3 (no code) 07-01-2019 Hospital [Mass/Vol] 12: [facility] (80733) ALP [Catalytic 104 U/L (no code) 44 - 147 U/L 07-01-2019 Hosp ital activity/Vol] 12: [facility] (19246) ALT [Catalytic 32 U/L (no code) 4 - 40 U/L 07-01-2019 Hospit al activity/Vol] 12: [facility] (06430) Amphetamines Ql Negative (no code) 07-01-2019 Hospital (U) 12: [facility] (50760) Anion gap 16 mmol/L (H) 3 - 11 mmol/L 07-01-2019 Hospital [Moles/Vol] 12: [facility] (84372) AST [Catalytic 60 U/L (H) 10 - 34 U/L 07-01-2019 Hospi arianna activity/Vol] 12: [facility] (25909) Bacteria LM Ql Trace (A) 07-01-2019 Hospital (Urine sed) 12: [facility] () Barbiturates Negative (no code) 07-01-2019 Hospital Screen Ql (U) 12: [facility] () Basophils (Bld) 0.0 10*3/uL (no code) 0 - 0.3 10*3/uL 07-01-2019 Hospital [#/Vol] 12: [facility] () Basophils/100 0.40 % (no code) 0.5 - 1 % 07-01-2019 Hospital WBC (Bld) 12: [facility] () Benzodiazepine Negative (no code) 07-01-2019 Hospital metabolites 12: [facility] Screen Ql (U) [facility] () Bilirubin 0.3 mg/dL (no code) 0.1 - 1.2 mg/dL 07-01-2019 Hospit al [Mass/Vol] 12: [facility] () Bilirubin N/A (A) 07-01-2019 Hospital Confirm Ql (U) 12: [facility] () Bilirubin Ql (U) Negative (no code) 07-01-2019 Hospital 12: [facility] () Calcium 8.9 mg/dL (no code) 8.5 - 10.2 mg/dL 07-01-2019 Hospi arianna [Mass/Vol] 12: [facility] () Carboxy Negative (no code) 07-01-2019 Hospital tetrahydrocannab 12: [facility] inol Ql (U) [facility] () Chloride 98 mmol/L (no code) 95 - 106 mmol/L 07-01-2019 Hospit al [Moles/Vol] 12: [facility] () Clarity (U) Clear (no code) 07-01-2019 Hospital 12: [facility] () Cocaine Ql (U) Negative (no code) 07-01-2019 Hospital 12: [facility] () Color (U) Yellow (no code) 07-01-2019 Hospital 12: [facility] () Creatinine 0.61 mg/dL (no code) 07-01-2019 Hospital [Mass/Vol] 12: [facility] () Eosinophils 0.1 10*3/uL (no code) 0.05 - 0.5 07-01-2019 Hospita l (Bld) [#/Vol] 10*3/uL 12: [facility] () Eosinophils/100 1.3 % (no code) 1 - 4 % 07-01-2019 Hospit al WBC (Bld) 12: [facility] () Epithelial 5-10/HPF (A) 07-01-2019 Hospital cells.squamous 12: [facility] LM.HPF (Urine [facility] sed) [#/Area] (46983) Erythrocyte 12.0 % (no code) 11.6 - 14.6 % 07-01-2019 Hospit al distribution 12: [facility] width (RBC) [facility] [Ratio] (60429) Ethanol Ql (U) 334.30 (HH) 07-01-2019 Hospital 12: [facility] () GFR/1.73 sq 98 (no code) 90 - 120 07-01-2019 Hospital M.predicted MDRD mL/min/{1.73_m2} mL/min/{1.73_m2} 12: [facility] (S/P/Bld) [Vol [facility] rate/Area] (20085) Globulin (S) 3.1 g/dL (no code) 2 - 3.5 g/dL 07-01-2019 Hospit al [Mass/Vol] 12: [facility] (79097) Glucose 116 mg/dL (H) 60 - 125 mg/dL 07-01-2019 Hospita l [Mass/Vol] 12: [facility] () Glucose Test Negative (no code) 07-01-2019 Hospital strip (U) 12: [facility] [Mass/Vol] [facility] (49890) HCO3 (P) 29 (no code) 07-01-2019 Hospital [Moles/Vol] 12: [facility] () Hematocrit (Bld) 38.2 % (no code) 36.1 - 50.3 % 07-01-2019 H ospital [Volume 12: [facility] fraction] [facility] (14037) Hemoglobin (Bld) 13.4 g/dL (no code) 12.1 - 17.2 g/dL 07-01-2019 Hospital [Mass/Vol] 12: [facility] () Hemoglobin Ql Negative (no code) 07-01-2019 Hospital (U) 12: [facility] () Ketones (U) Negative (no code) 07-01-2019 Hospital [Mass/Vol] 12: [facility] () Leukocyte Negative (no code) 07-01-2019 Hospital esterase Test 12: [facility] strip Ql (U) [facility] () Lymphocytes 2.58 10*3/uL (no code) 0.9 - 2.9 07-01-2019 Hospita l (Bld) [#/Vol] 10*3/uL 12: [facility] () Lymphocytes/100 38.6 % (no code) 20 - 40 % 07-01-2019 Hospit al WBC (Bld) 12: [facility] ([id number]) MCH (RBC) 36.0 pg (H) 27 - 31 pg 07-01-2019 Hospital [Entitic mass] 12: [facility] ([id number]) MCHC (RBC) 35.1 g/dL (no code) 32 - 36 g/dL 07-01-2019 Hospital [Mass/Vol] 12: [facility] (49332) MCV (RBC) 102.7 fL (H) 80 - 100 fL 07-01-2019 Hospital [Entitic vol] 12: [facility] (86303) Methylenedioxyme Negative (no code) 07-01-2019 Hospital thamphetamine 12: [facility] Screen Ql (U) [facility] ([id number]) Monocytes (Bld) 0.9 10*3/uL (no code) 0.3 - 0.9 07-01-2019 Hosp ital [#/Vol] 10*3/uL 12: [facility] (54047) Monocytes/100 13.5 % (H) 2 - 8 % 07-01-2019 Hospital WBC (Bld) 12: [facility] () Neutrophils 3.09 10*3/uL (no code) 1.7 - 7 10*3/uL 07-01-2019 H ospital (Bld) [#/Vol] 12: [facility] () Neutrophils/100 46.2 % (no code) 40 - 60 % 07-01-2019 Hospit al WBC (Bld) 12: [facility] ([id number]) Nitrite Ql (U) Negative (no code) 07-01-2019 Hospital 12: [facility] (17021) Opiates Screen Negative (no code) 07-01-2019 Hospital Ql (U) 12: [facility] ([id number]) Osmolality Calc 287 (no code) 07-01-2019 Hospital [Osmolality] 12: [facility] (49490) Oxycodone Ql (U) Negative (no code) 07-01-2019 Hospital 12: [facility] ([id number]) pH (U) 5.5 [pH] (no code) 4.6 - 8 [pH] 07-01-2019 Hospital 12: [facility] (78658) Phencyclidine Ql Negative (no code) 07-01-2019 Hospital (U) 12: [facility] ([id number]) Platelet mean 10.1 fL (H) 7.2 - 11.7 fL 07-01-2019 Hosp ital volume (Bld) 12: [facility] [Entitic vol] [facility] (22343) Platelets (Bld) 203 10*3/uL (no code) 150 - 450 07-01-2019 Hosp ital [#/Vol] 10*3/uL 12: [facility] () Potassium 4.1 mmol/L (no code) 3.7 - 5.2 mmol/L 07-01-2019 Hosp ital [Moles/Vol] 12: [facility] () Propoxyphene Ql Negative (no code) 07-01-2019 Hospital (U) 12: [facility] () Protein (U) Negative (no code) 0 - 20 mg/dL 07-01-2019 Hospita l [Mass/Vol] 12: [facility] () Protein 7.4 g/dL (no code) 6.4 - 8.3 g/dL 07-01-2019 Hospita l [Mass/Vol] 12: [facility] () RBC (Bld) 3.72 10*6/uL (no code) 4.2 - 6.1 07-01-2019 Hospital [#/Vol] 10*6/uL 12: [facility] () RBC LM.HPF 0-2/HPF (A) 07-01-2019 Hospital (Urine sed) 12: [facility] [#/Area] [facility] () Sodium 139 mmol/L (no code) 135 - 145 mmol/L 07-01-2019 Hosp ital [Moles/Vol] 12: [facility] () Specific gravity <=1.005 (A) 07-01-2019 Hospital (U) [Rel 12: [facility] density] [facility] () Tricyclic Negative (no code) 07-01-2019 Hospital antidepressants 12: [facility] Ql (U) [facility] () Urea nitrogen 9 mg/dL (no code) 7 - 20 mg/dL 07-01-2019 Hospi arianna [Mass/Vol] 12: [facility] ([id number]) Urobilinogen Qn [id number] (A) 07-01-2019 Hospital (U) {Elvia'U}/dL 12: [facility] ([id number]) WBC (Bld) 6.69 10*3/uL (no code) 3.5 - 10.5 07-01-2019 Hospital [#/Vol] 10*3/uL 12: [facility] (99131) WBC LM.HPF 0-2/HPF (A) 07-01-2019 Hospital (Urine sed) 12: [facility] [#/Area] [facility] (33598) Yeast.budding Ql Yeast Present (no code) 07-01-2019 Hospita l (Urine sed) 12: [facility] (33707) laboratory on 2019-06-24 Albumin BCG dye 4.1 (no code) 06-24-2019 Hospital [Mass/Vol] 13: [facility] (20533) ALP [Catalytic 112 U/L (no code) 44 - 147 U/L 06-24-2019 Hosp ital activity/Vol] 13: [facility] (48875) ALT [Catalytic 33 U/L (no code) 4 - 40 U/L 06-24-2019 Hospit al activity/Vol] 13: [facility] (01158) Amphetamines Ql Negative (no code) 06-24-2019 Hospital (U) 12: [facility] (33188) Anion gap 20 mmol/L (H) 3 - 11 mmol/L 06-24-2019 Hospital [Moles/Vol] 13: [facility] (88720) AST [Catalytic 58 U/L (H) 10 - 34 U/L 06-24-2019 Hospi arianna activity/Vol] 13: [facility] (67784) Barbiturates Negative (no code) 06-24-2019 Hospital Screen Ql (U) 12:0 [facility] (87707) Basophils (Bld) 0.0 10*3/uL (no code) 0 - 0.3 10*3/uL 06-24-2019 Hospital [#/Vol] 13:000400 [facility] ([id number]) Basophils/100 0.70 % (no code) 0.5 - 1 % 06-24-2019 Hospital WBC (Bld) 13: [facility] (22008) Benzodiazepine Negative (no code) 06-24-2019 Hospital metabolites 12:39 [facility] Screen Ql (U) [facility] (70366) Bilirubin 0.2 mg/dL (no code) 0.1 - 1.2 mg/dL 06-24-2019 Hospit al [Mass/Vol] 13: [facility] () Calcium 8.3 mg/dL (no code) 8.5 - 10.2 mg/dL 06-24-2019 Hospi arianna [Mass/Vol] 13:00 [facility] (22345) Carboxy Negative (no code) 06-24-2019 Hospital tetrahydrocannab 12:39 [facility] inol Ql (U) [facility] (07508) Chloride 100 mmol/L (no code) 95 - 106 mmol/L 06-24-2019 Hospi arianna [Moles/Vol] 13:00040 [facility] (89055) Cocaine Ql (U) Negative (no code) 06-24-2019 Hospital 12:39 [facility] (74344) Creatinine 0.59 mg/dL (no code) 06-24-2019 Hospital [Mass/Vol] 13:00040 [facility] (78061) Eosinophils 0.1 10*3/uL (no code) 0.05 - 0.5 06-24-2019 Hospita l (Bld) [#/Vol] 10*3/uL 13:00 [facility] (90217) Eosinophils/100 1.9 % (no code) 1 - 4 % 06-24-2019 Hospit al WBC (Bld) 13:00 [facility] (09818) Erythrocyte 11.7 % (no code) 11.6 - 14.6 % 06-24-2019 Hospit al distribution 13: [facility] width (RBC) [facility] [Ratio] ([id number]) Ethanol Ql (U) 384.80 (HH) 06-24-2019 Hospital 12:39-0400 [facility] (02861) GFR/1.73 sq 102 (no code) 90 - 120 06-24-2019 Hospital M.predicted MDRD mL/min/{1.73_m2} mL/min/{1.73_m2} 13:00 [facility] (S/P/Bld) [Vol [facility] rate/Area] ([id number]) Globulin (S) 2.8 g/dL (no code) 2 - 3.5 g/dL 06-24-2019 Hospit al [Mass/Vol] 13: [facility] () Glucose 85 mg/dL (no code) 60 - 125 mg/dL 06-24-2019 Hospita l [Mass/Vol] 13:00 [facility] (93745) HCO3 (P) 22 (no code) 06-24-2019 Hospital [Moles/Vol] 13:00 [facility] (30740) Hematocrit (Bld) 41.1 % (no code) 36.1 - 50.3 % 06-24-2019 H ospital [Volume 13: [facility] fraction] [facility] (74971) Hemoglobin (Bld) 14.2 g/dL (no code) 12.1 - 17.2 g/dL 06-24-2019 Hospital [Mass/Vol] 13:00 [facility] (95074) Lymphocytes 2.63 10*3/uL (no code) 0.9 - 2.9 06-24-2019 Hospita l (Bld) [#/Vol] 10*3/uL 13:00 [facility] () Lymphocytes/100 44.4 % (no code) 20 - 40 % 06-24-2019 Hospit al WBC (Bld) 13: [facility] (20900) M. pneumoniae Ab Positive (A) 06-24-2019 Hospital Ql (S) 13: [facility] (89939) MCH (RBC) 35.3 pg (H) 27 - 31 pg 06-24-2019 Hospital [Entitic mass] 13: [facility] (48526) MCHC (RBC) 34.5 g/dL (no code) 32 - 36 g/dL 06-24-2019 Hospital [Mass/Vol] 13:00040 [facility] (89769) MCV (RBC) 102.2 fL (H) 80 - 100 fL 06-24-2019 Hospital [Entitic vol] 13:00 [facility] (94482) Methylenedioxyme Negative (no code) 06-24-2019 Hospital thamphetamine 12:39 [facility] Screen Ql (U) [facility] (16182) Monocytes (Bld) 0.9 10*3/uL (no code) 0.3 - 0.9 06-24-2019 Hosp ital [#/Vol] 10*3/uL 13:00 [facility] (80394) Monocytes/100 15.5 % (H) 2 - 8 % 06-24-2019 Hospital WBC (Bld) 13:00 [facility] (19746) Neutrophils 2.23 10*3/uL (no code) 1.7 - 7 10*3/uL 06-24-2019 H ospital (Bld) [#/Vol] 13:00040 [facility] (11742) Neutrophils/100 37.5 % (no code) 40 - 60 % 06-24-2019 Hospit al WBC (Bld) 13:00 [facility] (45591) Opiates Screen Negative (no code) 06-24-2019 Hospital Ql (U) 12:39 [facility] (66554) Osmolality Calc 283 (no code) 06-24-2019 Hospital [Osmolality] 13: [facility] (07481) Oxycodone Ql (U) Negative (no code) 06-24-2019 Hospital 12:39 [facility] (17882) Phencyclidine Ql Negative (no code) 06-24-2019 Hospital (U) 12:39040 [facility] (64118) Platelet mean 10.8 fL (H) 7.2 - 11.7 fL 06-24-2019 Hosp ital volume (Bld) 13:00 [facility] [Entitic vol] [facility] (99343) Platelets (Bld) 117 10*3/uL (L) 150 - 450 06-24-2019 Hosp ital [#/Vol] 10*3/uL 13:00040 [facility] (49994) Potassium 3.9 mmol/L (no code) 3.7 - 5.2 mmol/L 06-24-2019 Hosp ital [Moles/Vol] 13:00040 [facility] (81248) Propoxyphene Ql Negative (no code) 06-24-2019 Hospital (U) 12:39040 [facility] (63220) Protein 6.9 g/dL (no code) 6.4 - 8.3 g/dL 06-24-2019 Hospita l [Mass/Vol] 13:00040 [facility] (46594) RBC (Bld) 4.02 10*6/uL (no code) 4.2 - 6.1 06-24-2019 Hospital [#/Vol] 10*6/uL 13:00 [facility] (83617) Sodium 138 mmol/L (no code) 135 - 145 mmol/L 06-24-2019 Hosp ital [Moles/Vol] 13:00040 [facility] (20030) Tricyclic Negative (no code) 06-24-2019 Hospital antidepressants 12:39040 [facility] Ql (U) [facility] (75415) Urea nitrogen 7 mg/dL (no code) 7 - 20 mg/dL 06-24-2019 Hospi arianna [Mass/Vol] 13:00040 [facility] (95993) WBC (Bld) 5.93 10*3/uL (no code) 3.5 - 10.5 06-24-2019 Hospital [#/Vol] 10*3/uL 13:00-0400 [facility] (17853) not yet categorized on 2019-01-02 Urine Volume Urine Volume (no code) 01-02-2019 Hospital Sufficient 07:59-0500 [facility] (10mL) [facility] ([id number]) no information Urine Saved if (A) 01-02-2019 Hospital Culture Needed 07:59-0500 [facility] (48hrs from time [facility] of collection) ([id number]) laboratory on 2019-01-02 Albumin BCG dye 4.4 (no code) 01-02-2019 Hospital [Mass/Vol] 07:59-0500 [facility] ([id number]) ALP [Catalytic 88 U/L (no code) 44 - 147 U/L 01-02-2019 Hosp ital activity/Vol] 07:59-0500 [facility] (63735) ALT [Catalytic 30 U/L (no code) 4 - 40 U/L 01-02-2019 Hospit al activity/Vol] 07:59-0500 [facility] ([id number]) Anion gap 18 mmol/L (H) 3 - 11 mmol/L 01-02-2019 Hospital [Moles/Vol] 07:59-0500 [facility] ([id number]) AST [Catalytic 37 U/L (no code) 10 - 34 U/L 01-02-2019 Hospi arianna activity/Vol] 07:59-0500 [facility] (76142) Bacteria LM Ql Negative (no code) 01-02-2019 Hospital (Urine sed) 07:59-0500 [facility] ([id number]) Basophils (Bld) 0.1 10*3/uL (no code) 0 - 0.3 10*3/uL 01-02-2019 Hospital [#/Vol] 07:59-0500 [facility] (91645) Basophils/100 0.60 % (no code) 0.5 - 1 % 01-02-2019 Hospital WBC (Bld) 07:590500 [facility] ([id number]) Bilirubin 0.3 mg/dL (no code) 0.1 - 1.2 mg/dL 01-02-2019 Hospit al [Mass/Vol] 07:590500 [facility] (76673) Bilirubin N/A (A) 01-02-2019 Hospital Confirm Ql (U) 07:590500 [facility] (81183) Bilirubin Ql (U) Negative (no code) 01-02-2019 Hospital 07:590500 [facility] (11941) Calcium 9.4 mg/dL (no code) 8.5 - 10.2 mg/dL 01-02-2019 Hospi arianna [Mass/Vol] 07:590500 [facility] (67098) Chloride 102 mmol/L (no code) 95 - 106 mmol/L 01-02-2019 Hospi arianna [Moles/Vol] 07:590500 [facility] (11949) Clarity (U) Clear (no code) 01-02-2019 Hospital 07:590500 [facility] (44973) Color (U) Yellow (no code) 01-02-2019 Hospital 07:590500 [facility] (25490) Creatinine 0.60 mg/dL (no code) 01-02-2019 Hospital [Mass/Vol] 07:590500 [facility] (75943) Eosinophils 0.1 10*3/uL (no code) 0.05 - 0.5 01-02-2019 Hospita l (Bld) [#/Vol] 10*3/uL 07:590500 [facility] (57089) Eosinophils/100 1.8 % (no code) 1 - 4 % 01-02-2019 Hospit al WBC (Bld) 07:590500 [facility] (41583) Epithelial 0-5/HPF (A) 01-02-2019 Hospital cells.squamous 07:590500 [facility] LM.HPF (Urine [facility] sed) [#/Area] ([id number]) Erythrocyte 12.5 % (no code) 11.6 - 14.6 % 01-02-2019 Hospit al distribution 07:59-0500 [facility] width (RBC) [facility] [Ratio] ([id number]) GFR/1.73 sq 100 (no code) 90 - 120 01-02-2019 Hospital M.predicted MDRD mL/min/{1.73_m2} mL/min/{1.73_m2} 07:59-0500 [facility] (S/P/Bld) [Vol [facility] rate/Area] ([id number]) Globulin (S) 3.3 g/dL (no code) 2 - 3.5 g/dL 01-02-2019 Hospit al [Mass/Vol] 07:59-0500 [facility] (11535) Glucose 94 mg/dL (no code) 60 - 125 mg/dL 01-02-2019 Hospita l [Mass/Vol] 07:59-0500 [facility] (49714) Glucose Test Negative (no code) 01-02-2019 Hospital strip (U) 07:59-0500 [facility] [Mass/Vol] [facility] (78999) HCO3 (P) 24 (no code) 01-02-2019 Hospital [Moles/Vol] 07:59-0500 [facility] ([id number]) Hematocrit (Bld) 42.9 % (no code) 36.1 - 50.3 % 01-02-2019 H ospital [Volume 07:59-0500 [facility] fraction] [facility] (85447) Hemoglobin (Bld) 14.5 g/dL (no code) 12.1 - 17.2 g/dL 01-02-2019 Hospital [Mass/Vol] 07:59-0500 [facility] (02675) Hemoglobin Ql Negative (no code) 01-02-2019 Hospital (U) 07:59-0500 [facility] (85093) Ketones (U) Negative (no code) 01-02-2019 Hospital [Mass/Vol] 07:59-0500 [facility] (31097) Leukocyte Negative (no code) 01-02-2019 Hospital esterase Test 07:59-0500 [facility] strip Ql (U) [facility] (37523) Lymphocytes 2.47 10*3/uL (no code) 0.9 - 2.9 11-25-2019 Hospita l (Bld) [#/Vol] 10*3/uL 07:590500 [facility] (56335) Lymphocytes/100 31.3 % (no code) 20 - 40 % 01-02-2019 Hospit al WBC (Bld) 07:590500 [facility] (83131) MCH (RBC) 34.4 pg (H) 27 - 31 pg 01-02-2019 Hospital [Entitic mass] 07:590500 [facility] (04438) MCHC (RBC) 33.8 g/dL (no code) 32 - 36 g/dL 01-02-2019 Hospital [Mass/Vol] 07:590500 [facility] (43085) MCV (RBC) 101.9 fL (H) 80 - 100 fL 01-02-2019 Hospital [Entitic vol] 07:590500 [facility] (03181) Monocytes (Bld) 0.9 10*3/uL (no code) 0.3 - 0.9 01-02-2019 Hosp ital [#/Vol] 10*3/uL 07:590500 [facility] (29827) Monocytes/100 11.3 % (no code) 2 - 8 % 01-02-2019 Hospital WBC (Bld) 07:590500 [facility] (59592) Neutrophils 4.35 10*3/uL (no code) 1.7 - 7 10*3/uL 01-02-2019 H ospital (Bld) [#/Vol] 07:590500 [facility] (40263) Neutrophils/100 55.0 % (no code) 40 - 60 % 01-02-2019 Hospit al WBC (Bld) 07:590500 [facility] (38713) Nitrite Ql (U) Negative (no code) 01-02-2019 Hospital 07:590500 [facility] (37900) Osmolality Calc 287 (no code) 01-02-2019 Hospital [Osmolality] 07:59050 [facility] (68095) pH (U) 6.0 [pH] (no code) 4.6 - 8 [pH] 01-02-2019 Hospital 07:590500 [facility] (49153) Platelet mean 11.8 fL (H) 7.2 - 11.7 fL 01-02-2019 Hosp ital volume (Bld) 07:590500 [facility] [Entitic vol] [facility] (79507) Platelets (Bld) 152 10*3/uL (no code) 150 - 450 01-02-2019 Hosp ital [#/Vol] 10*3/uL 07:590500 [facility] (38565) Potassium 3.8 mmol/L (no code) 3.7 - 5.2 mmol/L 01-02-2019 Hosp ital [Moles/Vol] 07:590500 [facility] (08625) Protein (U) Negative (no code) 0 - 20 mg/dL 01-02-2019 Hospita l [Mass/Vol] 07:590500 [facility] (94886) Protein 7.7 g/dL (no code) 6.4 - 8.3 g/dL 01-02-2019 Hospita l [Mass/Vol] 07:590500 [facility] (88944) RBC (Bld) 4.21 10*6/uL (no code) 4.2 - 6.1 01-02-2019 Hospital [#/Vol] 10*6/uL 07:590500 [facility] (81412) RBC LM.HPF Negative (no code) 0 - 4 /[HPF] 01-02-2019 Hospital (Urine sed) 07:590500 [facility] [#/Area] [facility] (73204) Sodium 140 mmol/L (no code) 135 - 145 mmol/L 01-02-2019 Hosp ital [Moles/Vol] 07:590500 [facility] (13112) Specific gravity 1.010 (no code) 01-02-2019 Hospital (U) [Rel 07:590500 [facility] density] [facility] (94121) Urea nitrogen 7 mg/dL (no code) 7 - 20 mg/dL 01-02-2019 Hospi arianna [Mass/Vol] 07:590500 [facility] (32933) Urobilinogen Qn 0.084960930 (A) 01-02-2019 Hospital (U) {Elvia'U}/dL 07:590500 [facility] (85316) WBC (Bld) 7.90 10*3/uL (no code) 3.5 - 10.5 01-02-2019 Hospital [#/Vol] 10*3/uL 07:590500 [facility] (67581) WBC LM.HPF Negative (no code) 0 - 5 /[HPF] 01-02-2019 Hospital (Urine sed) 07:590500 [facility] [#/Area] [facility] (06019) Yeast.budding Ql No Yeast present (no code) 01-02-2019 Hosp ital (Urine sed) 07:590500 [facility] (58142) laboratory on 2018-12-15 Albumin 4.8 g/dL (N) 3.4 - 5.4 g/dL [facility] [Mass/Vol] [facility] (21455) Albumin/Globulin 1.9 {ratio} (N) 1 - 2.5 {ratio} [facility] [Mass ratio] [facility] (73192) ALP [Catalytic 91 U/L (N) 44 - 147 U/L [facility] Health activity/Vol] [facility] (35799) ALT [Catalytic 21 U/L (N) 4 - 40 U/L [facility] activity[facility]Vol[facility] (92489) AST [Catalytic 28 U/L (N) 10 - 34 U/L [facility] Health activity/Vol] [facility] (47446) Bilirubin 0.3 mg/dL (N) 0.1 - 1.2 mg/dL [facility] [Mass/Vol] [facility] (16107) Calcium 9.3 mg/dL (N) 8.5 - 10.2 mg/dL [facility] [Mass/Vol] [facility] (22391) Chloride 102 mmol/L (N) 95 - 106 mmol/L [facility] [Moles/Vol] [facility] (60293) CO2 [Moles/Vol] 27 mmol/L (N) 23 - 29 mmol/L [facility] (02519) Creatinine 0.52 mg/dL (N) [facility] [Mass/Vol] [facility] (14393) GFR/1.73 sq M 117 (N) 90 - 120 [facility] predicted among mL/min/{1.73_m2} mL/min/{1.73_m2} [facility] blacks MDRD [facility] (S/P/Bld) [Vol (09015) rate/Area] GFR/1.73 sq 101 (N) 90 - 120 [facility] th M.predicted MDRD mL/min/{1.73_m2} mL/min/{1.73_m2} [facility] (S/P/Bld) [Vol [facility] rate/Area] (11736) Globulin (S) 2.5 g/dL (N) 2 - 3.5 g/dL [facility] [Mass/Vol] [facility] (18525) Glucose 66 mg/dL (N) 60 - 125 mg/dL [facility] [Mass/Vol] [facility] (63303) Potassium 4.5 mmol/L (N) 3.7 - 5.2 mmol/L [facility] [Moles/Vol] [facility] (23861) Protein 7.3 g/dL (N) 6.4 - 8.3 g/dL [facility] [Mass/Vol] [facility] (37239) Sodium 138 mmol/L (N) 135 - 145 mmol/L [facility] [Moles/Vol] [facility] (55353) Urea nitrogen 11 mg/dL (N) 7 - 20 mg/dL [facility] [Mass/Vol] [facility] (43171) Urea NOT APPLICABLE (no code) [facility] h nitrogen/Creatin [facility] [Mass ratio] [facility] (97346) urinalysis on 2018-08-02 Amphetamines Ql Negative (no code) 08-02-2018 Hospital (U) 20:43-0400 [facility] (14081) Barbiturates Negative (no code) 08-02-2018 Hospital Screen Ql (U) 20:43-0400 [facility] (83330) Clarity (U) Clear (no code) 08-02-2018 Hospital 20:43-0400 [facility] (74204) Cocaine Ql (U) Negative (no code) 08-02-2018 Hospital 20:430400 [facility] (56421) Color (U) Yellow (no code) 08-02-2018 Hospital 20:430400 [facility] (85938) Epithelial 0-5/HPF (A) 08-02-2018 Hospital cells.squamous 20:430400 [facility] LM.HPF (Urine [facility] sed) [#/Area] (26262) Leukocyte Negative (no code) 08-02-2018 Hospital esterase Test 20:430400 [facility] strip Ql (U) [facility] (08869) Phencyclidine Ql Negative (no code) 08-02-2018 Hospital (U) 20:43-0400 [facility] (53592) Protein (U) Negative (no code) 0 - 20 mg/dL 08-02-2018 Hospita l [Mass/Vol] 20:43-0400 [facility] (62952) RBC LM.HPF Negative (no code) 0 - 4 /[HPF] 08-02-2018 Hospital (Urine sed) 20:430400 [facility] [#/Area] [facility] (95168) Specific gravity <=1.005 (A) 08-02-2018 Hospital (U) [Rel 20:43-0400 [facility] density] [facility] (00682) WBC LM.HPF Nothing Seen on (no code) 08-02-2018 Hospital (Urine sed) Microscopic 20:43-0400 [facility] [#/Area] [facility] (45399) other on 2018-08-02 Albumin BCG dye 4.7 (no code) 08-02-2018 Hospital [Mass/Vol] 19:37-0400 [facility] (05807) Bacteria LM Ql Negative (no code) 08-02-2018 Hospital (Urine sed) 20:43-0400 [facility] (35806) Benzodiazepine Negative (no code) 08-02-2018 Hospital metabolites 20:430400 [facility] Screen Ql (U) [facility] ([id number]) Bilirubin N/A (A) 08-02-2018 Hospital Confirm Ql (U) 20:430400 [facility] ([id number]) Bilirubin Ql (U) Negative (no code) 08-02-2018 Hospital 20:430400 [facility] ([id number]) Carboxy Negative (no code) 08-02-2018 Hospital tetrahydrocannab 20:430400 [facility] inol Ql (U) [facility] ([id number]) CK [Catalytic 65 U/L (no code) 08-02-2018 Hospital activity/Vol] 19:42-0400 [facility] ([id number]) Electrocardiogra Complete (no code) 08-02-2018 Hospital ms recorded 19:420400 [facility] ([id number]) Erythrocyte 12.4 % (no code) 11.6 - 14.6 % 08-02-2018 Hospit al distribution 19:37-0400 [facility] width (RBC) [facility] [Ratio] ([id number]) Ethanol Ql (U) 281.60 (HH) 08-02-2018 Hospital 20:43-0400 [facility] ([id number]) Gamma glutamyl 80 U/L (H) 0 - 30 U/L 08-02-2018 Hospit al transferase 19:53-0400 [facility] [Catalytic [facility] activity/Vol] ([id number]) GFR/1.73 sq 99 (no code) 90 - 120 08-02-2018 Hospital M.predicted MDRD mL/min/{1.73_m2} mL/min/{1.73_m2} 19:37-0400 [facility] (S/P/Bld) [Vol [facility] rate/Area] ([id number]) Globulin (S) 2.7 g/dL (no code) 2 - 3.5 g/dL 08-02-2018 Hospit al [Mass/Vol] 19:37-0400 [facility] ([id number]) Glucose Test Negative (no code) 08-02-2018 Hospital strip (U) 20:43-0400 [facility] [Mass/Vol] [facility] ([id number]) HCO3 (P) 20 (L) 08-02-2018 Hospital [Moles/Vol] 19:37-0400 [facility] ([id number]) Hemoglobin Ql Negative (no code) 08-02-2018 Hospital (U) 20:43-0400 [facility] ([id number]) Ketones (U) Negative (no code) 08-02-2018 Hospital [Mass/Vol] 20:43-0400 [facility] ([id number]) MCHC (RBC) 34.2 g/dL (no code) 32 - 36 g/dL 08-02-2018 Hospital [Mass/Vol] 19:37-0400 [facility] ([id number]) Methylenedioxyme Negative (no code) 08-02-2018 Hospital thamphetamine 20:43-0400 [facility] Screen Ql (U) [facility] ([id number]) Nitrite Ql (U) Negative (no code) 08-02-2018 Hospital 20:43-0400 [facility] ([id number]) Opiates Screen Negative (no code) 08-02-2018 Hospital Ql (U) 20:43-0400 [facility] ([id number]) Osmolality Calc 276 (L) 08-02-2018 Hospital [Osmolality] 19:37-0400 [facility] ([id number]) Oxycodone Ql (U) Negative (no code) 08-02-2018 Hospital 20:43-0400 [facility] ([id number]) pH (U) 5.5 [pH] (no code) 4.6 - 8 [pH] 08-02-2018 Hospital 20:43-0400 [facility] ([id number]) Platelet mean 11.4 fL (H) 7.2 - 11.7 fL 08-02-2018 Hosp ital volume (Bld) 19:37-0400 [facility] [Entitic vol] [facility] ([id number]) Propoxyphene Ql Negative (no code) 08-02-2018 Hospital (U) 20:43-0400 [facility] ([id number]) Tricyclic Negative (no code) 08-02-2018 Hospital antidepressants 20:430400 [facility] Ql (U) [facility] ([id number]) Urine Volume Urine Volume (no code) 08-02-2018 Hospital Sufficient 20:430400 [facility] (10mL) [facility] ([id number]) Urobilinogen Qn 0.2 (no code) 08-02-2018 Hospital (U) 20:430400 [facility] ([id number]) Yeast.budding Ql No Yeast present (no code) 08-02-2018 Hosp ital (Urine sed) 20:430400 [facility] ([id number]) no information Urine Saved if (A) 08-02-2018 Hospital Culture Needed 20:430400 [facility] (48hrs from time [facility] of collection) ([id number]) metabolic panel on 2018-08-02 ALP [Catalytic 81 U/L (no code) 44 - 147 U/L 08-02-2018 Hosp ital activity/Vol] 19:37-0400 [facility] ([id number]) ALT [Catalytic 33 U/L (no code) 4 - 40 U/L 08-02-2018 Hospit al activity/Vol] 19:37-040 [facility] (88521) Anion gap 18 mmol/L (H) 3 - 11 mmol/L 08-02-2018 Hospital [Moles/Vol] 19:37-0400 [facility] (38053) AST [Catalytic 36 U/L (no code) 10 - 34 U/L 08-02-2018 Hospi arianna activity/Vol] 19:37-0400 [facility] ([id number]) Bilirubin 0.5 mg/dL (no code) 0.1 - 1.2 mg/dL 08-02-2018 Hospit al [Mass/Vol] 19:370400 [facility] ([id number]) Calcium 9.5 mg/dL (no code) 8.5 - 10.2 mg/dL 08-02-2018 Hospi arianna [Mass/Vol] 19:37040 [facility] ([id number]) Chloride 100 mmol/L (no code) 95 - 106 mmol/L 08-02-2018 Hospi arianna [Moles/Vol] 19:37-0400 [facility] ([id number]) Creatinine 0.61 mg/dL (no code) 08-02-2018 Hospital [Mass/Vol] 19:37-0400 [facility] ([id number]) Glucose 107 mg/dL (no code) 60 - 125 mg/dL 08-02-2018 Hospita l [Mass/Vol] 19:37-0400 [facility] (83238) Magnesium 2.8 mg/dL (H) 1.7 - 2.2 mg/dL 08-02-2018 Hospit al [Mass/Vol] 19:42-0400 [facility] (20513) Potassium 3.6 mmol/L (no code) 3.7 - 5.2 mmol/L 08-02-2018 Hosp ital [Moles/Vol] 19:37-0400 [facility] (63273) Protein 7.4 g/dL (no code) 6.4 - 8.3 g/dL 08-02-2018 Hospita l [Mass/Vol] 19:37-0400 [facility] (21509) Sodium 134 mmol/L (no code) 135 - 145 mmol/L 08-02-2018 Hosp ital [Moles/Vol] 19:37-0400 [facility] (21602) Urea nitrogen 8 mg/dL (no code) 7 - 20 mg/dL 08-02-2018 Hospi arianna [Mass/Vol] 19:37-0400 [facility] ([id number]) hematology on 2018-08-02 Basophils (Bld) 0.1 10*3/uL (no code) 0 - 0.3 10*3/uL 08-02-2018 Hospital [#/Vol] 19:37-0400 [facility] (08975) Basophils/100 0.80 % (no code) 0.5 - 1 % 08-02-2018 Hospital WBC (Bld) 19:37-0400 [facility] ([id number]) Eosinophils 0.0 10*3/uL (no code) 0.05 - 0.5 08-02-2018 Hospita l (Bld) [#/Vol] 10*3/uL 19:37-0400 [facility] ([id number]) Eosinophils/100 0.3 % (no code) 1 - 4 % 08-02-2018 Hospit al WBC (Bld) 19:370400 [facility] ([id number]) Hematocrit (Bld) 43.9 % (no code) 36.1 - 50.3 % 08-02-2018 H ospital [Volume 19:37-0400 [facility] fraction] [facility] ([id number]) Hemoglobin (Bld) 15.0 g/dL (no code) 12.1 - 17.2 g/dL 08-02-2018 Hospital [Mass/Vol] 19:37-0400 [facility] (46989) Lymphocytes 2.74 10*3/uL (no code) 0.9 - 2.9 08-02-2018 Hospita l (Bld) [#/Vol] 10*3/uL 19:370400 [facility] () Lymphocytes/100 30.0 % (no code) 20 - 40 % 08-02-2018 Hospit al WBC (Bld) 19:370400 [facility] ([id number]) MCH (RBC) 34.0 pg (H) 27 - 31 pg 08-02-2018 Hospital [Entitic mass] 19:370400 [facility] (02509) MCV (RBC) 99.5 fL (H) 80 - 100 fL 08-02-2018 Hospital [Entitic vol] 19:370400 [facility] (63532) Monocytes (Bld) 0.8 10*3/uL (no code) 0.3 - 0.9 08-02-2018 Hosp ital [#/Vol] 10*3/uL 19:370400 [facility] (66614) Monocytes/100 8.8 % (no code) 2 - 8 % 08-02-2018 Hospital WBC (Bld) 19:370400 [facility] ([id number]) Neutrophils 5.50 10*3/uL (no code) 1.7 - 7 10*3/uL 08-02-2018 H ospital (Bld) [#/Vol] 19:37-0400 [facility] (11573) Neutrophils/100 60.1 % (no code) 40 - 60 % 08-02-2018 Hospit al WBC (Bld) 19:37-0400 [facility] ([id number]) Platelets (Bld) 100 Result (L) 08-02-2018 Hospital [#/Vol] Verified by 19:370400 [facility] Repeat Analysis [facility] ([id number]) RBC (Bld) 4.41 10*6/uL (no code) 4.2 - 6.1 08-02-2018 Hospital [#/Vol] 10*6/uL 19:370400 [facility] ([id number]) WBC (Bld) 9.14 10*3/uL (no code) 3.5 - 10.5 08-02-2018 Hospital [#/Vol] 10*3/uL 19:370400 [facility] (81037) cardiac on 2018-08-02 CK.MB [Mass/Vol] 1.3 ng/mL (no code) 0 - 4.3 ng/mL 08-02-2018 H ospital 19:42-0400 [facility] (09443) Myoglobin 20.4 ng/mL (no code) 08-02-2018 Hospital [Mass/Vol] 19:42-0400 [facility] (34025) Troponin ng/mL (no code) 0 - 0.4 ng/mL 08-02-2018 Hospital I.cardiac 19:420400 [facility] [Mass/Vol] [facility] (68026) venous blood hemoglobin measurement (mass/volume) on 2017-10-10 Hemoglobin mass 14.6 g/dL (no code) 12.1 - 17.2 g/dL Via [facility] conc (Bld) [facility] (32848) urine urobilinogen measurement by automated test strip (mass/volume) on 2017-10-10 Urobilinogen NORMAL (no code) Via [facility] Test strip [facility] (U) [place] ([address]104) urine total bilirubin detection by test strip on 2017-10-10 Bilirubin Ql (U) Negative (no code) Via [facility] ([id number]) urine protein assay by test strip, semi-quantitativ e on 2017-10-10 Protein Test Negative (no code) Via [facility] strip ([facility] () urine ph measurement by test strip on 2017-10-10 pH Test strip 7 [pH] (no code) 4.6 - 8 [pH] Via [facility] ([id number]) urine nitrite detection by test strip on 2017-10-10 Nitrite Test Negative (no code) Via [facility] strip ([facility] ([id number]) urine ketones detection by automated test strip on 2017-10-10 Ketones Negative (no code) Via [facility] Automated test Hospital strip Ql ([facility] () urine glucose detection by automated test strip on 2017-10-10 Glucose Negative (no code) Via [facility] Automated test [facility] strip ([facility] () urine color determination on 2017-10-10 Color Nom (U) YELLOW (no code) Via [facility] ([id number]) urine clarity determination on 2017-10-10 Clarity Nom (U) CLEAR (no code) Via [facility] (43373) specific gravity of urine by test strip on 2017-10-10 Specific gravity 1.005 (*) Via [facility] Relative Density [facility] ([facility] (59109) serum or plasma urea nitrogen/creatin ine mass ratio on 2017-10-10 Urea 18 mg/mg (no code) 6 - 22 mg/mg Via [facility] nitrogen/Creatin Hospital ine mass ratio [place] ([address]43) serum or plasma urea nitrogen measurement (mass/volume) on 2017-10-10 Urea nitrogen 10 mg/dL (no code) 7 - 20 mg/dL Via [facility] mass [facility] ([id number]) serum or plasma total bilirubin measurement (mass/volume) on 2017-10-10 Bilirubin mass 0.3 mg/dL (no code) 0.1 - 1.2 mg/dL Via [facility]isti [facility] (53429) serum or plasma sodium measurement (moles/volume) on 2017-10-10 Sodium molar 134 mmol/L (L) 135 - 145 mmol/L Via [facility] (46013) serum or plasma protein measurement (mass/volume) on 2017-10-10 Protein mass 7.2 g/dL (no code) 6.4 - 8.3 g/dL Via [facility] (44139) serum or plasma potassium measurement (moles/volume) on 2017-10-10 Potassium molar 3.7 mmol/L (no code) 3.7 - 5.2 mmol/L Via [facility] (40721) serum or plasma glucose measurement (mass/volume) on 2017-10-10 Glucose mass 89 mg/dL (no code) 60 - 125 mg/dL Via [facility] (04562) serum or plasma creatinine measurement with calculation of estimated glomerular filtration rate on 2017-10-10 GFR/1.73 sq M no information (no code) [facility] rate/area ([id number]) (S/P/Bld) serum or plasma creatinine measurement (mass/volume) on 2017-10-10 Creatinine mass 0.57 mg/dL (L) Via [facility] (00260) serum or plasma chloride measurement (moles/volume) on 2017-10-10 Chloride molar 101 mmol/L (no code) 95 - 106 mmol/L Via [facility] (14526) serum or plasma calcium measurement (mass/volume) on 2017-10-10 Calcium mass 9.0 mg/dL (no code) 8.5 - 10.2 mg/dL Via [facility] (63268) serum or plasma aspartate aminotransferase measurement (enzymatic activity/volume) on 2017-10-10 AST enzyme 20 U/L (no code) 10 - 34 U/L Via [facility] ([id number]) serum or plasma anion gap determination (moles/volume) on 2017-10-10 Anion gap 3 10 mmol/L (no code) 3 - 11 mmol/L Via [facility] (92831) serum or plasma alkaline phosphatase measurement (enzymatic activity/volume) on 2017-10-10 ALP enzyme 77 U/L (no code) 44 - 147 U/L Via [facility] (84236) serum or plasma albumin measurement (mass/volume) on 2017-10-10 Albumin mass 4.6 g/dL (H) 3.4 - 5.4 g/dL Via [facility] (30059) serum or plasma alanine aminotransferase measurement (enzymatic activity/volume) on 2017-10-10 ALT enzyme 13 U/L (no code) 4 - 40 U/L Via [facility] act/vol [facility] (27628) mucus detection in urine sediment by light microscopy on 2017-10-10 Mucus LM Ql Negative (no code) Via [facility] (Urine sed) [facility] (57371) leukocyte esterase on 2017-10-10 Leukocyte Negative (no code) Via [facility] esterase Test Hospital strip Ql (U) [place] ([address]774) erythrocytes detection in urine sediment by light microscopy on 2017-10-10 RBC LM Ql (Urine Negative (no code) Via [facility] sed) [facility] (36101) crystals detection in urine sediment by light microscopy on 2017-10-10 Crystals LM Ql NONE (no code) Via [facility] (Urine sed) [facility] ([id number]) complete urinalysis with reflex to culture on 2017-10-10 Complete NO (no code) Via [facility] urinalysis with Hospital reflex to [place] culture ([id number]) casts detection in urine sediment by light microscopy on 2017-10-10 Casts LM Ql NONE (no code) Via [facility] (Urine sed) [facility] (95366) carbon dioxide on 2017-10-10 CO2 molar conc 23 mmol/L (no code) 23 - 29 mmol/L Via Chr isti [facility] (73325) blood neutrophils automated count (number/volume) on 2017-10-10 Neutrophils Auto 5.5 10*3/uL (no code) 1.7 - 7 10*3/uL Via [facility] #/vol (Bld) [facility] (51787) blood monocytes/100 leukocytes on 2017-10-10 Monocytes/100 10 % (no code) 2 - 8 % Via [facility] WBC Auto (Bld) [facility] ([id number]) blood monocytes automated count (number/volume) on 2017-10-10 Monocytes Auto 1.1 10*3/uL (H) 0.3 - 0.9 Via [facility] #/vol (Bld) 10*3/uL [facility] (47113) blood lymphocytes automated count (number/volume) on 2017-10-10 Lymphocytes Auto 3.7 10*3/uL (no code) 0.9 - 2.9 Via [facility] #/vol (Bld) 10*3/uL [facility] ([id number]) blood leukocytes automated count (number/volume) on 2017-10-10 WBC Auto #/vol 10.4 10*3/uL (no code) 3.5 - 10.5 Via [facility] i (d) 10*3/uL [facility] (77914) blood hematocrit (volume fraction) on 2017-10-10 Hematocrit Auto 42 % (no code) 36.1 - 50.3 % Via [facility] isti Volume Fraction Hospital (d) [place] ([address]320) blood erythrocytes automated count (number/volume) on 2017-10-10 RBC Auto #/vol 4.20 10*6/uL (L) 4.2 - 6.1 Via [facility] i (d) 10*6/uL [facility] ([id number]) bacteria detection in urine sediment by light microscopy on 2017-10-10 Bacteria LM Ql Negative (no code) Via [facility] (Urine sed) [facility] (88938) automated urine sediment leukocyte count by microscopy (number/high power field) on 2017-10-10 WBC LM.HPF NONE (no code) Via [facility] #/area (Urine Hospital sed) [place] ([id number]) automated urine sediment erythrocyte count by microscopy (number/high power field) on 2017-10-10 RBC LM.HPF NONE (no code) Via [facility] #/area (Urine Hospital [facility] [place] (86062) automated erythrocyte mean corpuscular volume on 2017-10-10 MCV Auto Entitic 100 fL (H) 80 - 100 fL Via [facility] sti volume (RBC) [facility] ([id number]) automated erythrocyte mean corpuscular hemoglobin concentration measurement (mass/volume) on 2017-10-10 MCHC Auto mass 35 g/dL (no code) 32 - 36 g/dL Via [facility] conc (RBC) [facility] (71184) automated erythrocyte mean corpuscular hemoglobin (mass per erythrocyte) on 2017-10-10 MCH Auto Entitic 35 pg (H) 27 - 31 pg Via [facility] ti mass (RBC) [facility] ([id number]) automated erythrocyte distribution width ratio on 2017-10-10 Erythrocyte 12.7 % (no code) 11.6 - 14.6 % Via [facility] distribution Hospital width Auto Ratio [place] (RBC) ([id number]) automated eosinophil count on 2017-10-10 Eosinophils Auto 0.1 10*3/uL (no code) 0.05 - 0.5 Via ti #/vol (Bld) 10*3/uL [facility] ([id number]) automated blood platelet mean volume measurement on 2017-10-10 Platelet mean 9.6 fL (no code) 7.2 - 11.7 fL Via ti volume Auto [facility] Entitic volume [place] ([facility]) ([id number]) automated blood platelet count (count/volume) on 2017-10-10 Platelets Auto 276 10*3/uL (no code) 150 - 450 Via [facility] #/vol (d) 10*3/uL [facility] ([id number]) automated blood neutrophils/100 leukocytes on 2017-10-10 Neutrophils/100 53 % (no code) 40 - 60 % Via Jani i WBC Auto (d) [facility] (11883) automated blood lymphocytes/100 leukocytes on 2017-10-10 Lymphocytes/100 36 % (no code) 20 - 40 % Via Jani i WBC Auto (Bld) [facility] (08252) automated blood eosinophils/100 leukocytes on 2017-10-10 Eosinophils/100 1 % (no code) 1 - 4 % Via Jani i WBC Auto (Bld) [facility] (54040) automated blood basophils/100 leukocytes on 2017-10-10 Basophils/100 1 % (no code) 0.5 - 1 % Via [facility] WBC Auto (d) [facility] ([id number]) automated blood basophil count (count/volume) on 2017-10-10 Basophils Auto 0.1 10*3/uL (no code) 0 - 0.3 10*3/uL Via Ch risti #/vol (d) [facility] (08336) urinalysis on 2017-10-03 Bacteria LM.HPF Negative (no code) 10-03-2017 Hospital #/area (Urine 17:23-0400 [facility] (02651) Barbiturates Negative (no code) 10-03-2017 Hospital Screen Ql (U) 17:-0400 [facility] ([id number]) Bilirubin Ql (U) Negative (no code) 10-03-2017 Hospital 17:23-0400 [facility] ([id number]) Bilirubin Ql (U) 0.3 (no code) 10-03-2017 Hospital 17:230400 [facility] ([id number]) Clarity Nom (U) Clear (no code) 10-03-2017 Hospital 17:0400 [facility] (92923) Color Nom (U) Straw (no code) 10-03-2017 Hospital 17:040 [facility] (39391) Epithelial 0-5/HPF (A) 10-03-2017 Hospital cells.squamous 17: [facility] LM.HPF #/area [facility] (Urine sed) (96220) Hemoglobin Test Negative (no code) 10-03-2017 Hospital strip Ql (U) 17: [facility] (17414) Leukocyte Negative (no code) 10-03-2017 Hospital esterase Test 17: [facility] strip Ql (U) [facility] (14220) Nitrite Test Negative (no code) 10-03-2017 Hospital strip Ql (U) 17: [facility] (41173) pH Test strip 5.5 [pH] (no code) 4.6 - 8 [pH] 10-03-2017 Hospi arianna (U) 17: [facility] (30713) Phencyclidine Ql Negative (no code) 10-03-2017 Hospital (U) 17:040 [facility] (69981) Protein mass Negative (no code) 0 - 20 mg/dL 10-03-2017 Hospit al conc (U) 17: [facility] (98484) RBC LM.HPF Negative (no code) 0 - 4 /[HPF] 10-03-2017 Hospital #/area (Urine 17: [facility] sed) [facility] (80426) Specific gravity <=1.005 (A) 10-03-2017 Hospital Relative Density 17: [facility] (U) [facility] (57308) Urobilinogen 0.2 (A) 0.2 - 1 10-03-2017 Hospital Test strip Qn {Elvia'U}/dL {Elvia'U}/dL 17: [facility] of (U) [facility] (68414) WBC LM.HPF Rare/HPF (A) 10-03-2017 Hospital #/area (Urine 17:0400 [facility] sed) [facility] (44232) other on 2017-10-03 Acetaminophen <0 (L) 10-03-2017 Hospital mass conc 17:230400 [facility] (76665) AMP Negative (no code) 10-03-2017 Hospital 17:230400 [facility] (41648) BZO Negative (no code) 10-03-2017 Hospital 17:0400 [facility] (13461) TRAVIS Negative (no code) 10-03-2017 Hospital 17:0400 [facility] (00064) Globulin 1.8 g/dL (L) 2 - 3.5 g/dL 10-03-2017 Hospital Calculated mass 17: [facility] conc (S) [facility] (22890) Glucose. Negative (no code) 10-03-2017 Hospital 17:0400 [facility] (82010) Icto N/A (A) 10-03-2017 Hospital 17:0400 [facility] (22280) Ketones mass Negative (no code) 10-03-2017 Hospital conc (U) 17:0 [facility] (62596) MDMA Negative (no code) 10-03-2017 Hospital 17:0400 [facility] (40686) OPI Negative (no code) 10-03-2017 Hospital 17:0400 [facility] (64307) OXY Negative (no code) 10-03-2017 Hospital 17:0400 [facility] (22598) PPX Negative (no code) 10-03-2017 Hospital 17:0400 [facility] (96869) Salicylates mass <50 (no code) 10-03-2017 Hospital conc 17:0400 [facility] (42841) TCA Negative (no code) 10-03-2017 Hospital 17:0400 [facility] (07469) THC Negative (no code) 10-03-2017 Hospital 17: [facility] (36266) Urine Volume Urine Volume (no code) 10-03-2017 Hospital Sufficient 17: [facility] (10mL) [facility] (33823) Urine Yeast No Yeast present (no code) 10-03-2017 Hospital 17: [facility] (17825) no information Urine Saved if (A) 10-03-2017 Hospital Culture Needed 17: [facility] (48hrs from time [facility] of collection) ([id number]) metabolic panel on 2017-10-03 Albumin mass 4.7 g/dL (no code) 3.4 - 5.4 g/dL 10-03-2017 Hosp ital conc 17: [facility] (46554) ALP enzyme 82 U/L (no code) 44 - 147 U/L 10-03-2017 Hospital act/vol 17: [facility] (78771) ALT enzyme 13 U/L (no code) 4 - 40 U/L 10-03-2017 Hospital act/vol 17: [facility] (84130) Anion gap 3 19 mmol/L (H) 3 - 11 mmol/L 10-03-2017 Hospit al molar conc 17: [facility] (44871) AST enzyme 21 U/L (no code) 10 - 34 U/L 10-03-2017 Hospital act/vol 17: [facility] (90687) Calcium mass 9.2 mg/dL (no code) 8.5 - 10.2 mg/dL 10-03-2017 Ho spital conc 17: [facility] (67125) Chloride molar 101 mmol/L (no code) 95 - 106 mmol/L 10-03-2017 Hospital conc 17: [facility] (84662) CO2 molar conc 21 mmol/L (L) 23 - 29 mmol/L 10-03-2017 Ho spital 17: [facility] (10537) Creatinine mass 0.60 mg/dL (no code) 10-03-2017 Hospital conc 17: [facility] (91144) GFR/1.73 sq M 101 (no code) 90 - 120 10-03-2017 Hospital predicted among mL/min/{1.73_m2} mL/min/{1.73_m2} 17: [facility] non-blacks MDRD [facility] vol rate/area () (S/P/Bld) Glucose mass 68 mg/dL (L) 60 - 125 mg/dL 10-03-2017 Hosp ital conc 17: [facility] (03218) Osmolality 281 mosm/kg (no code) 275 - 295 10-03-2017 Hospital mosm/kg 17: [facility] () Potassium molar 3.8 mmol/L (no code) 3.7 - 5.2 mmol/L 10-03-2017 Hospital conc 17: [facility] () Protein mass 6.5 g/dL (no code) 6.4 - 8.3 g/dL 10-03-2017 Hosp ital conc 17: [facility] (56352) Sodium molar 137 mmol/L (no code) 135 - 145 mmol/L 10-03-2017 H ospital conc 17: [facility] (38124) Urea nitrogen 10 mg/dL (no code) 7 - 20 mg/dL 10-03-2017 Hospi arianna mass conc 17: [facility] (15633) hematology on 2017-10-03 Basophils Auto 0.1 10*3/uL (no code) 0 - 0.3 10*3/uL 10-03-2017 Hospital #/vol (Bld) 17: [facility] (14817) Basophils/100 0.60 % (no code) 0.5 - 1 % 10-03-2017 Hospital WBC Auto (Bld) 17: [facility] (02124) Eosinophils Auto 0.2 10*3/uL (no code) 0.05 - 0.5 10-03-2017 Ho spital #/vol (Bld) 10*3/uL 17: [facility] (65385) Eosinophils/100 1.8 % (no code) 1 - 4 % 10-03-2017 Hospit al WBC Auto (Bld) 17: [facility] (64035) Erythrocyte 12.4 % (no code) 11.6 - 14.6 % 10-03-2017 Hospit al distribution 17: [facility] width Auto Ratio [facility] (RBC) (24837) Hematocrit Auto 41.0 % (no code) 36.1 - 50.3 % 10-03-2017 Ho spital Volume Fraction 17: [facility] (Bld) [facility] (17397) Hemoglobin mass 14.6 g/dL (no code) 12.1 - 17.2 g/dL 10-03-2017 Hospital conc (Bld) 17: [facility] (87562) Lymphocytes Auto 4.43 10*3/uL (H) 0.9 - 2.9 10-03-2017 Ho spital #/vol (Bld) 10*3/uL 17: [facility] ([id number]) Lymphocytes/100 38.9 % (no code) 20 - 40 % 10-03-2017 Hospit al WBC Auto (Bld) 17: [facility] ([id number]) MCH Auto Entitic 35.1 pg (H) 27 - 31 pg 10-03-2017 Hosp ital mass (RBC) 17: [facility] (30590) MCHC Auto mass 35.6 g/dL (no code) 32 - 36 g/dL 10-03-2017 Hosp ital conc (RBC) 17: [facility] (83654) MCV Auto Entitic 98.6 fL (H) 80 - 100 fL 10-03-2017 Hos pital volume (RBC) 17: [facility] (59086) Monocytes Auto 1.1 10*3/uL (H) 0.3 - 0.9 10-03-2017 Hospi arianna #/vol (Bld) 10*3/uL 17: [facility] (39407) Monocytes/100 9.8 % (no code) 2 - 8 % 10-03-2017 Hospital WBC Auto (Bld) 17: [facility] (67720) Neutrophils Auto 5.56 10*3/uL (no code) 1.7 - 7 10*3/uL 10-04-19 18 Hospital #/vol (Bld) 17: [facility] (93779) Neutrophils/100 48.9 % (no code) 40 - 60 % 10-03-2017 Hospit al WBC Auto (Bld) 17: [facility] (65504) Platelet mean 9.4 fL (no code) 7.2 - 11.7 fL 10-03-2017 Hosp ital volume Auto 17: [facility] (46750) Platelets Auto 343 10*3/uL (no code) 150 - 450 10-03-2017 Hospi arianna #/vol (Bld) 10*3/uL 17: [facility] (06478) RBC Auto #/vol 4.16 10*6/uL (no code) 4.2 - 6.1 10-03-2017 Hosp ital (Bld) 10*6/uL 17: [facility] (09843) WBC Auto #/vol 11.38 10*3/uL (H) 3.5 - 10.5 10-03-2017 Ho spital (Bld) 10*3/uL 17: [facility] (78478) drug on 2017-10-03 Ethanol mass 281 mg/dL (HH) 0 - 80 mg/dL 10-03-2017 Hospit al conc 17: [facility] (80832) venous blood hemoglobin measurement (mass/volume) on 2017-08-19 Hemoglobin (HGB) 13.8 g/dL (no code) 12 - 18 g/dL Via [facility] (81087) urine urobilinogen measurement by automated test strip (mass/volume) on 2017-08-19 Urine, NORMAL (no code) [facility]96913[facility] urine total bilirubin detection by test strip on 2017-08-19 Urine, bilirubin Negative (no code) Via [facility] (77075) urine protein assay by test strip, semi-quantitativ e on 2017-08-19 Urine, protein Negative (no code) Via [facility] (09455) urine ph measurement by test strip on 2017-08-19 Urine, pH 6 [pH] (no code) 4.6 - 8 [pH] Via [facility] (19620) urine nitrite detection by test strip on 2017-08-19 Urine, nitrite Negative (no code) Via [facility] (00986) urine ketones detection by automated test strip on 2017-08-19 Urine, ketones Negative (no code) Via [facility] (99967) urine glucose detection by automated test strip on 2017-08-19 Urine, glucose Negative (no code) Via [facility] (69919) urine color determination on 2017-08-19 Urine, color YELLOW (no code) Via [facility] (53042) urine clarity determination on 2017-08-19 Urine, clarity CLEAR (no code) Via [facility] (42861) squamous epithelial cells detection in urine sediment by light microscopy on 2017-08-19 Urine, squamous RARE (no code) Via [facility] cells [facility] (61489) specific gravity of urine by test strip on 2017-08-19 Urine, specific 1.005 (*) Via [facility] (89082) serum or plasma urea nitrogen/creatin ine mass ratio on 2017-08-19 BUN/Creatinine 20 mg/mg (no code) 10 - 20 mg/mg Via [facility] (11136) serum or plasma urea nitrogen measurement (mass/volume) on 2017-08-19 Urea nitrogen 12 mg/dL (no code) 7 - 20 mg/dL Via [facility] (83390) serum or plasma sodium measurement (moles/volume) on 2017-08-19 Sodium 137 mmol/L (no code) 135 - 147 mmol/L Via [facility] (70351) serum or plasma potassium measurement (moles/volume) on 2017-08-19 Potassium 3.7 mmol/L (no code) 3.5 - 5.1 mmol/L Via [facility] (94300) serum or plasma glucose measurement (mass/volume) on 2017-08-19 Glucose 80 mg/dL (no code) 60 - 125 mg/dL Via [facility] (36201) serum or plasma creatinine measurement with calculation of estimated glomerular filtration rate on 2017-08-19 eGFR (non-black) no information (no code) Via [facility] (28894) serum or plasma creatinine measurement (mass/volume) on 2017-08-19 Creatinine 0.60 mg/dL (no code) Via [facility] (76328) serum or plasma chloride measurement (moles/volume) on 2017-08-19 Chloride 103 mmol/L (no code) 95 - 106 mmol/L Via [facility] (58501) serum or plasma calcium measurement (mass/volume) on 2017-08-19 Calcium 9.2 mg/dL (no code) 9 - 11 mg/dL Via [facility] (60008) serum or plasma anion gap determination (moles/volume) on 2017-08-19 Anion gap 11 mmol/L (no code) 3 - 11 mmol/L Via [facility] (05115) mucus detection in urine sediment by light microscopy on 2017-08-19 Urine, mucus Negative (no code) Via [facility] (25105) leukocyte esterase on 2017-08-19 Urine, leukocyte Negative (no code) Via [facility] esterase [facility] (76170) erythrocytes detection in urine sediment by light microscopy on 2017-08-19 Urine, Negative (no code) Via [facility] erythrocytes [facility] (48147) crystals detection in urine sediment by light microscopy on 2017-08-19 Urine, crystals NONE (no code) Via [facility] (54650) complete urinalysis with reflex to culture on 2017-08-19 Complete NO (no code) Via [facility] urinalysis with Hospital reflex to [place] culture (93577) casts detection in urine sediment by light microscopy on 2017-08-19 Urine, casts in NONE (no code) Via [facility] (86344) carbon dioxide on 2017-08-19 CO2 23 mmol/L (no code) 23 - 29 mmol/L Via [facility] (32545) blood neutrophils automated count (number/volume) on 2017-08-19 Neutrophils 5.4 10*3/uL (no code) 1.5 - 7.8 Via [facility] 10*3/uL [facility] (58521) blood monocytes/100 leukocytes on 2017-08-19 Monocytes/100 12 % (no code) 2 - 8 % Via [facility] leukocytes [facility] (07586) blood monocytes automated count (number/volume) on 2017-08-19 Monocytes 1.4 10*3/uL (H) 0.2 - 1.1 Via [facility] 10*3/uL [facility] (10137) blood lymphocytes automated count (number/volume) on 2017-08-19 Lymphocytes 4.2 10*3/uL (H) 0.85 - 4.1 Via [facility] 10*3/uL [facility] (20465) blood leukocytes automated count (number/volume) on 2017-08-19 WBC (Leukocytes) 11.3 10*3/uL (H) 3.8 - 10.8 [facility] (33868) blood hematocrit (volume fraction) on 2017-08-19 Hematocrit (HCT) 39 % (no code) 39 - 51 % Via [facility] (14492) blood erythrocytes automated count (number/volume) on 2017-08-19 Erythrocytes 3.89 10*6/uL (L) 4.2 - 6.1 Via [facility] (RBC) 10*6/uL [facility] (15790) bacteria detection in urine sediment by light microscopy on 2017-08-19 Urine, bacteria NONE (no code) Via [facility] in sediment [facility] (47113) automated urine sediment leukocyte count by microscopy (number/high power field) on 2017-08-19 Urine, NONE (no code) Via [facility] leukocytes in [facility] (60521) automated urine sediment erythrocyte count by microscopy (number/high power field) on 2017-08-19 Urine, NONE (no code) Via [facility] erythrocytes in [facility] sediment [facility] (57163) automated erythrocyte mean corpuscular volume on 2017-08-19 MCV 99 fL (no code) 80 - 100 fL Via [facility] (48989) automated erythrocyte mean corpuscular hemoglobin concentration measurement (mass/volume) on 2017-08-19 MCHC 36 g/dL (no code) 32 - 36 g/dL Via [facility] (99041) automated erythrocyte mean corpuscular hemoglobin (mass per erythrocyte) on 2017-08-19 MCH 36 pg (H) 27 - 31 pg Via [facility] (73002) automated erythrocyte distribution width ratio on 2017-08-19 RDW-CA 12.9 % (no code) 11 - 15 % Via [facility] (63125) automated eosinophil count on 2017-08-19 Eosinophils 0.2 10*3/uL (no code) 0.05 - 1.5 Via [facility] 10*3/uL [facility] (79332) automated blood platelet mean volume measurement on 2017-08-19 Platelet mean 9.7 fL (no code) 7.2 - 11.[address] [facility] (PMV) [facility] (00582) automated blood platelet count (count/volume) on 2017-08-19 Platelets 282 10*3/uL (no code) 150 - 400 Via [facility] 10*3/uL [facility] (18160) automated blood neutrophils/100 leukocytes on 2017-08-19 Neutrophils/100 48 % (no code) 40 - 60 % Via [facility] leukocytes [facility] (35152) automated blood lymphocytes/100 leukocytes on 2017-08-19 Lymphocytes/100 37 % (no code) 20 - 40 % Via [facility] leukocytes [facility] (52686) automated blood eosinophils/100 leukocytes on 2017-08-19 Eosinophils/100 2 % (no code) 1 - 4 % Via [facility] (21735) automated blood basophils/100 leukocytes on 2017-08-19 Basophils/100 1 % (no code) 0.5 - 1 % Via [facility] (13119) automated blood basophil count (count/volume) on 2017-08-19 Basophils 0.1 10*3/uL (no code) 0 - 0.2 10*3/uL Via [facility] (68688) Vital Signs Vital Sign Value Interpretation Reference Date Time Care Prov ider Facility (Normalized) (Normalized) Range Body height 167.64 cm (no code) cm 11-27-2013 [facility] 12:19-3850 19936 [facility] (67223) Body height 167.64 cm (no code) cm 06-02-2013 [facility] 13:36-0400 65467 [facility] (98528) Body height 167.64 cm (no code) cm 04-17-2013 APRIL rmjagMIHIR SALAZAR [facility] 11:34-0400 85607 [facility] (09980) Body 98.1 [degF] (no code) 97.8 - 99.0 02-16-2014 [facility] Temperature [degF] 11:310500 12[facility] (44852) Body 98 [degF] (no code) 97.8 - 99.0 11-27-2013 [facility] temperature [degF] 12:19-0400 53976 [facility] (93672) Body 97.5 [degF] (no code) 97.8 - 99.0 09-18-2013 [facility] Temperature [degF] 14:40-0400 84985 [facility] (27522) Body 96.9 [degF] (no code) 97.8 - 99.0 07-25-2013 [facility] Temperature [degF] 18:53-0400 16367 [facility] (98822) Body 98.7 [degF] (no code) 97.8 - 99.0 06-02-2013 [facility] temperature [degF] 13:36-0400 36811 [facility] (17778) Body 98 [degF] (no code) 97.8 - 99.0 04-17-2013 APRIL Menon MARTIN [facility] temperature [degF] 11:34-0400 49354 [facility] (79165) Body weight 53.98 kg (no code) kg 02-16-2014 [facility] 11:310500 28398 [facility] (55143) Body weight 55.34 kg (no code) kg 11-27-2013 [facility] 12:190400 82058 [facility] (57661) Body weight 52.84 kg (no code) kg 09-18-2013 [facility] 14[facility]-[id number] [place] [address] (50563) Body weight 54.93 kg (no code) kg 07-25-2013 [facility] 18:53-[id number] [place] [address] (59542) Body weight 55.34 kg (no code) kg 06-02-2013 MIGUE ESTRADA [facility] 13:36-0400 66678 [facility] (60933) Body weight 58.2 kg (no code) kg 04-17-2013 APRIL Tanner [facility] 11:34-[id number] [place] [address] (26865) Height 157.48 cm (no code) cm 02-16-2014 [facility] 11:31-[address] [place] [address] (08391) Height 167.64 cm (no code) cm 09-18-2013 [facility] 14:40-[id number] [place] [address] (63868) Height 167.64 cm (no code) cm 07-25-2013 [facility] 18:53-[id number] [place] [address] (81496) Interventions No Information Plan of Treatment Normalized Care Care Detail Care Activity Date Care Provider F acility Activity Albumin [Mass/Vol] no information no information MD HUMA GARRETT ER [facility] 10471 (Work Phone: [place] [phone] ) (14055) ALP [Catalytic no information no information MD HUMA LOZOYA [facility] activity/Vol] 81895 (Work Phone: [place] [address] ) (47571) ALT [Catalytic no information no information MD HUMA LOZOYA [facility] activity/Vol] 83414 (Work Phone: [place] [address] ) (79237) Anion gap no information no information MD HUMA LOZOYA [facility] Via [Moles/Vol] 71867 (Work Phone: [place] [address] ) (61569) AST [Catalytic no information no information MD HUMA LOZOYA [facility] activity/Vol] 25203 (Work Phone: [place] [address] ) (11791) Bacteria LM Ql no information no information MD HUMA LOZOYA Gentry Via (Urine sed) 16578 (Work Phone: [place] [address] ) (97311) Bilirubin [Mass/Vol] no information no information MD HUMA YOUNG RTER [facility] 39659 (Work Phone: [place] [address] ) (27112) Bilirubin Ql (U) no information no information MD HUMA LOZOYA [facility] 88560 (Work Phone: [place] [address] ) (49232) Calcium [Mass/Vol] no information no information MD HUMA GARRETT ER [facility] 59573 (Work Phone: [place] [address] ) (28705) Calcium corrected no information no information MD HUMA ROWE R Gentry Via for total protein 40425 (Work Phone: [facility] [Mass/Vol] ) (46656) Casts LM Ql (Urine no information no information MD HUMA LINN [facility] sed) 97355 (Work Phone: [place] [address] ) (30859) Chloride [Moles/Vol] no information no information MD HUMA YOUNG RTER [facility] 84669 (Work Phone: [place] [address] ) (16764) Clarity (U) no information no information MD HUMA LOZOYA [facility] 21127 (Work Phone: [place] [address] ) (98475) CO2 [Moles/Vol] no information no information MD HUMA LOZOYA [facility] 80587 (Work Phone: [place] [address] ) (45691) Color (U) no information no information MD HUMA LOZOYA [facility] 57144 (Work Phone: [place] [address] ) (76356) Creatinine no information no information MD HUMA LOZOYA [facility] Via [Mass/Vol] 66810 (Work Phone: [place] [address] ) (13676) Crystals LM Ql no information no information MD HUMA LOZOYA Gentry Via (Urine sed) 77080 (Work Phone: [place] [address] ) (21550) Glucose [Mass/Vol] no information no information MD HUMA GARRETT ER [facility] 40507 (Work Phone: [place] [address] ) (98555) Glucose Auto test no information no information MD HUMA ROWE R [facility] Via strip Ql (U) 72549 (Work Phone: [place] [address] ) (18267) INR Coag (Platelet no information no information MD HUMA GARRETT ER [place] [place] [address] (Work Phone: [facility] blood) [Relative ) (36488) time] Ketones Auto test no information no information MD HUMA ROWE R [facility] Via strip Ql (U) 91387 (Work Phone: [place] [address] ) (41518) Leukocyte esterase no information no information MD HUMA GARRETT ER [facility] Via Test strip Ql (U) 58056 (Work Phone: [place] [address] ) (43118) Mucus Ql (Urine sed) no information no information MD HUMA YOUNG RTER [facility] 18403 (Work Phone: [place] [address] ) (97109) Nitrite Ql (U) no information no information MD HUMA LOZOYA [facility] 32619 (Work Phone: [place] [address] ) (87003) Patient Education no information no information HUMA LOZOYA 6 6743 [facility] (19571) Patient referral no information no information HUMA LOZOYA 66 762 [facility] (83193) pH (U) no information no information MD HUMA LOZOYA [facility] 17727 (Work Phone: [place] [address] ) (27543) Potassium no information no information MD HUMA LOZOYA [facility] Via [Moles/Vol] 78487 (Work Phone: [place] [address] ) (35455) Protein [Mass/Vol] no information no information MD HUMA GARRETT ER [facility] 69430 (Work Phone: [place] [address] ) (13194) Protein Ql (U) no information no information MD HUMA LOZOYA [facility] 19176 (Work Phone: [place] [address] ) (39842) PT baseline Coag no information no information MD HUMA LOZOYA [facility] Via (PPP) [Time] 29456 (Work Phone: [place] [address] ) (38471) RBC LM.HPF (Urine no information no information MD HUMA Perez [facility] Via sed) [#/Area] 32844 (Work Phone: [place] [address] ) (39212) RBC Ql (U) no information no information MD HUMA LOZOYA Asc [facility] 36502 (Work Phone: [place] [address] ) (36772) Sodium [Moles/Vol] no information no information MD HUMA LINN [facility] 11774 (Work Phone: [place] [address] ) (21076) Specific gravity (U) no information no information MD HUMA BOWLING [facility]entry Via [Rel density] 35549 (Work Phone: [place] [address] ) (51711) Urea nitrogen no information no information MD HUMA Trammell scension Via [Mass/Vol] 20494 (Work Phone: [place] [address] ) (03233) Urea no information no information MD HUMA LOZOYA Asc ension Via nitrogen/Creatinine 78071 (Work Phone: [facility] [Mass ratio] ) (45622) Urinalysis complete no information no information MD HUMA BHAT TER [facility] W Reflex Culture 27326 (Work Phone: [facility] panel - Urine ) (97288) Urobilinogen (U) no information no information MD HUMA LOZOYA Gentry Via [Mass/Vol] 82426 (Work Phone: [facility] ) (46815) WBC LM.HPF (Urine no information no information MD HUMA Perez [facility] Via sed) [#/Area] 24418 (Work Phone: [place] [address] ) (32247) Goals Patient Goal Desired Goal no information [...] Understands Co ncepts November 20, 2013 8:00am No Functional Status information available Mental Status The data below is from unstructured sourcesNo Mental Status Information AvailableNo Mental Status Information AvailableNo Mental Status Information AvailableNo Mental Status Information AvailableNo Mental Status Information AvailableNo Mental Status Information AvailableNo Mental St atus Information Available Encounters Encounter Normalized Encounter Encounter Diagnosis Care Provi nasima Organization Date Type 09-05-2018 [facility] Pain in right ankle HUMA YOUNG RTER (no [facility] - and joints of right phone) (no phone) 09-05-2018 foot - 09-05-2018 07-14-2019 Emergency department no information (no phone) [facility] patient visit [facility] (no phone) 07-14-2019 07-14-2019 Emergency department no information RAUL Sedrick WHITTAKER D O (no [facility] - patient visit phone) [facility] 07-14-2019 JAIL OFFICER (no phone) RAUL (no phone) Sedrick WHITTAKER DO (no phone) LI [facility]OPE[facility] JAIL OFFICER (no phone) [facility]OPE[facility] JAIL OFFICER (no phone) [facility]OPE[facility] JAIL OFFICER (no phone) [facility] JAIL OFFICER (no phone) [facility] JAIL OFFICER (no phone) 07-03-2019 Emergency department no information (no phone) [facility] - patient visit Hospital (no phone) 07-03-2019 07-03-2019 Emergency department no information AMBER MCKEON DO (no [facility] - patient visit phone) [facility] 07-03-2019 JAIL OFFICER (no phone) LI (no phone) Jyoti LOPEZ JAIL OFFICER (no phone) [facility] JAIL OFFICER (no phone) [facility] JAIL OFFICER (no phone) LI [facility]OPE[facility] JAIL OFFICER (no phone) [facility] JAIL OFFICER (no phone) 07-02-2019 Emergency department no information (no phone) [facility] - patient visit Hospital (no phone) 07-02-2019 07-02-2019 Emergency department no information AMBER MCKEON DO (no [facility] - patient visit phone) [facility] 07-02-2019 JAIL OFFICER (no phone) LI (no phone) Jyoti LOPEZ JAIL OFFICER (no phone) LI LOPE[facility] JAIL OFFICER (no phone) LI [facility]OPE[facility] JAIL OFFICER (no phone) [facility] JAIL OFFICER (no phone) [facility] LOPE[facility] JAIL OFFICER (no phone) 12-22-2018 Emergency department no information [...] LI LOPEZ 10-11-2018 Emergency department no information LI [...] 07-13-2018 07-13-2018 Emergency department no information JENIFER MULLINS A IMAGING TECHNOLOGIST (no [facility] - patient visit phone) [facility] 07-13-2018 (no phone) 06-30-2018 Emergency department no information AMBER K MIKE DO (no [facility] - patient visit phone) [facility] 06-30-2018 JAIL OFFICER (no phone) LI (no phone) Jyoti LOPEZ JAIL OFFICER (no phone) AMBER K MIKE DO (no phone) AMBRE K MIKE DO (no phone) LI LOPEZ JAIL OFFICER (no phone) AMBER K MIKE DO (no phone) LI LOPEZ JAIL OFFICER (no phone) AMBER Zapata MIKE DO (no phone) LI Montes LOPEZ JAIL OFFICER (no phone) AMBER K MIKE DO (no phone) LI LOPEZ JAIL OFFICER (no phone) AMBER K MIKE DO (no phone) LI Montes LOPEZ JAIL OFFICER (no phone) 06-29-2018 Emergency department no information no name no organization name - patient visit 06-30-2018 06-29-2018 Emergency department no information JENIFER MULLINS A IMAGING TECHNOLOGIST (no [facility] - patient visit phone) [facility] 06-29-2018 (no phone) 10-12-2017 Emergency department no information no name no organization name - patient visit 10-12-2017 10-12-2017 Emergency department no information JENIFER MULLINS A IMAGING TECHNOLOGIST (no [facility] - patient visit phone) [facility] 10-12-2017 (no phone) 10-10-2017 Emergency department no information JENIFER MULLINS ( no no organization name - patient visit phone) 10-10-2017 10-10-2017 Emergency department no information JENIFER MULLINS A IMAGING TECHNOLOGIST (no [facility] - patient visit phone) [facility] 10-10-2017 (no phone) 09-13-2017 Emergency department no information AMBER MCKEON [...] visit Work Phone: 08-19-2017 LI LOPEZ LI LPOEZ 08-19-2017 Emergency department no information LI PHANN (no [facility] - patient visit phone) [facility] 08-19-2017 (no phone) 06-08-2017 Emergency department no information MELISSA MARTINES PA [facility] - patient visit (no phone) [facility] 06-08-2017 (no phone) 05-29-2017 Emergency department no information SHAHANA MARTÍNEZ (no [facility] - patient visit phone) [facility] 05-29-2017 (no phone) 05-21-2017 Emergency department no information LI PHANN (no [facility] - patient visit phone) [facility] 05-21-2017 (no phone) 05-19-2017 Emergency department no information HONEY LANZA MD [facility] - patient visit (no phone) [facility] 05-19-2017 (no phone) 05-11-2017 Emergency department no information MELISSA Dubose [facility] - patient visit (no phone) [facility] 05-11-2017 (no phone) 04-06-2017 Emergency department no information [facility] - patient visit (no phone) [facility] 04-06-2017 (no phone) 07-11-2016 Emergency department no information MELISSA ALCARAZ IN [facility] - patient visit (no phone) [facility] 07-11-2016 (no phone) 03-03-2016 Emergency department no information LI EVERETT (no [facility] - patient visit phone) [facility] 03-03-2016 (no phone) 05-02-2015 Evaluation and no information FINESSE DESAI MD (n o [facility] - management of phone) [facility] [...] information no name no organizat ion name 07-17-2019 Patient encounter no information HUMA LOZOYA (n o [facility] procedure phone) [facility] (no phone) 07-14-2019 Patient encounter no information LI LOPEZ JAIL OFFICER (no [facility] procedure phone) [facility] (no phone) 07-03-2019 Patient encounter no information LI LOPEZ JAIL OFFICER (no [facility] procedure phone) [facility] (no phone) 07-02-2019 Patient encounter no information LI LOPEZ JAIL OFFICER (no [facility] procedure phone) [facility] (no phone) 07-01-2019 Patient encounter no information MARISEL CRUZ (no [facility] phone) of [facility] (no 07-01-2019 phone) 06-24-2019 Patient encounter no information Alfredo Murray (no jermaine ne) [facility] - procedure STORMY SHAKEEL (no of [facility] (no 06-24-2019 phone) STORMY SHAKEEL phone) (no phone) 01-02-2019 Patient encounter no [...] encounter no information HUMA LOZOYA (n o [facility] phone) (no phone) 10-05-2018 Telephone encounter no information HUMA LOZOYA (n o [facility] - phone) (no phone) 10-05-2018 - 10-05-2018 09-30-2018 Telephone encounter Primary HUMA LOZOYA (no [facility] - osteoarthritis, right phone) (no phon e) 09-30-2018 ankle and foot - 09-30-2018 Medical Equipment The data below is from unstructured sourcesNo Medical Equipment Information availableNo Medical Equipment Information availableNo Medical Equipment Information availableNo Medical Equipment Information a vailableNo Medical Equipment Information availableNo Medical Equipment Informati on availableNo Medical Equipment Information available Payers Normalized Payer Value Unknown no information ([id number]) Private Health Insurance no information Medicare no information ([id number]) Evaluation note Note Type Note Facility Evaluation No Assessments Information Available A scension note [facility] ([id number]) Advance Directives Directive Response Recor ded Date/Time Advance Directives No 3:37pm Health Care Power of Desk Lieutenant No 03/03/16 3:37pm Organ Donor No 03/03/16 3:37pm Resuscitation Status Full Code 03/03/16 3:37pm Directive Response Recor ded Date/Time Advance Directives No 5:28pm Health Care Power of Desk Lieutenant No 05/02/15 5:28pm Organ Donor No 05/02/15 3:18pm Resuscitation Status Full Code 05/02/15 5:28pm Directive Response Recor ded Date/Time Advance Directives No 4:26pm Health Care Power of Desk Lieutenant No 07/11/16 4:26pm Organ Donor No 07/11/16 4:26pm Resuscitation Status Full Code 07/11/16 4:26pm Directive Response Recor ded Date/Time Advance Directives Yes 0 10/02/13 5:44pm Health Care Power of Desk Lieutenant No 10/02/13 5:44pm Organ Donor No 10/02/13 5:44pm Resuscitation Status Full Code 10/02/13 5:44pm Directive Response Recor ded Date/Time Advance Directives No 11:30pm Health Care Power of Desk Lieutenant No 10/12/14 11:30pm Organ Donor No 11/19/13 8:57pm Resuscitation Status Full Code 11/19/13 11:30pm Directive Response Recor ded Date Advance Directives N 01/20 12:15pm Health Care Power of Desk Lieutenant N 07/20/12 12:15pm Organ Donor N 07/20/12 1 2:15pm Directive Response Recor ded Date/Time Advance Directives No 6:47pm Health Care Power of Desk Lieutenant No 04/06/17 6:47pm Organ Donor No 04/06/17 6:47pm Resuscitation Status Full Code 04/06/17 6:47pm Directive Response Recor ded Date/Time Advance Directives No 9:06pm Health Care Power of Desk Lieutenant No 05/21/17 9:06pm Organ Donor No 05/21/17 9:06pm Directive Response Recor ded Date/Time Advance Directives No 8:29pm Health Care Power of Desk Lieutenant No 06/08/17 8:29pm Organ Donor No 06/08/17 8:29pm Resuscitation Status Full Code 06/08/17 8:29pm Directive Response Recor ded Date/Time Advance Directives No 6:24pm Health Care Power of Desk Lieutenant No 08/19/17 6:24pm Organ Donor No 08/19/17 6:24pm Resuscitation Status Full Code 08/19/17 6:24pm Directive Response Recor ded Date/Time Advance Directives No 11:37am Health Care Power of Desk Lieutenant No 09/13/17 11:37am Organ Donor No 09/13/17 11:37am Directive Response Recor ded Date/Time Advance Directives No 11:37am Health Care Power of Desk Lieutenant No 09/13/17 11:37am Organ Donor No 09/13/17 11:37am Resuscitation Status Full Code 09/13/17 11:37am Directive Response Recor ded Date/Time Advance Directives No 12:17pm Health Care Power of Desk Lieutenant No 10/10/17 12:17pm Organ Donor No 10/10/17 12:17pm Resuscitation Status Full Code 10/10/17 12:17pm Directive Response Recor ded Date/Time Advance Directives No 3:30pm Health Care Power of Desk Lieutenant No 10/11/18 3:30pm Organ Donor No 10/11/18 3:30pm Advance Directive Response Recorded Date/Time Advance Directives No No [email or web address] 5:08pm Health Care Power of Desk Lieutenant No December 22, 2018 5:08pm Organ Donor No December 22, 2018 5:08pm Resuscitation Status Full Code December 22, 2018 5:08pm Advance Directive Response Recorded Date/Time Advance Directives No Ma 2019 3:35pm Health Care Power of Desk Lieutenant No July 02, 2019 3:35pm Organ Donor No July 02, 2019 3:35pm Resuscitation Status Full Code July 02, 2019 3:35pm Advance Directive Response Recorded Date/Time Advance Directives No Ma 2019 2:17pm Health Care Power of Desk Lieutenant No July 03, 2019 2:17pm Organ Donor No July 03, 2019 2:17pm Resuscitation Status Full Code July 03, 2019 2:17pm Advance Directive Response Recorded Date/Time Advance Directives No Ju 2019 5:53pm Health Care Power of Desk Lieutenant No July 14, 2019 5:53pm Organ Donor No July 14, 2019 5:53pm Resuscitation Status Full Code July 14, 2019 5:53pm Discharge Instructions No hospital discharge instructions. Patient Instructions Physician Instructions New, Converted or Re-Newed RX: Transmitted to Pharmacy Goal/Follow Up Appt: Follow up with Ms Last at [facility] on Friday 05/05 at 3pm. [facility] will call you for a follow up appointment with Dr Lozoya. Patient Instructions: please take all medicines as prescribed. Continue to work with your case liner as you have been doing. [facility] For: fever, shortness of breath, blood in sputum. Discharge Diet: No Restrictions Activity as Tolerated: Yes Care Plan Patient Instructions:: please take all medicines as prescribed. 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 Goal:: Follow up with Ms Last at [facility] on Friday 05/05at 3pm. [facility] will call you for a follow up [...] Complaint General Problems/Joe n Reason for Visit [id number] Chief Complaint Substance Abuse Reason for Visit [id number] Additional Source Comments This clinical document has been generated using [employer] software that has been certified by the Office of the National Coordinator for Health Information Technology (ONC 15.99.04.3023.Diam.[id number]) and the National Committee for Global Coordinator (NCQA, as an eMeasure certified technology). FOR [...] BASED ON T HE PRIMARY CLINICAL RECORDS. [employer] provides no warranty or guara ntee of the accuracy or completeness of information in this document.The followi information is based on time limited clinical information UNRECOGNIZED CONTENT PROVIDED BELOW FOR UNRECOGNIZED SECTION MEDICAL (GENERAL) HISTORY Type Description Date Medical History asthma Medical History headache Medical History chronic pain-low vidhi k with spasms Medical History anxiety Medical History depression Hospitalization History childbirth x 4 UNRECOGNIZED CONTENT PROVIDED BELOW FOR UNRECOGNIZED SECTION REASON FOR VISIT [id number]-Adonis
--- NOTE | 2019-07-31 15:20 | NUR ---
Pt states she is not suicidal or homicidal and has not been. Pt requesting AMA paperwork so she can sign it and leave. Pt informed of risk of leaving AMA, pt states she understands and has no questions or concerns. AMA paper signed by pt. Pt escorted out by PCT.
--- OUTSIDE RECORDS SUMMARY | 2019-07-31 15:23 | XMS REPORT ---
Author Author Madina LOZOYA Organization [facility] Address [address] [place] [address] Care Team Providers Care High Scaler Name Role Phone HUMA LOZOYA Unavailable PROBLEMS Type Condition ICD9-CM Code QWV49-IT Code Onset Dates Condition S tatus SNOMED Code Problem Asthma J45.909 Active 887961921 Problem Alcoholism F10.20 Active 1456764 Problem Bipolar disorder F31.9 Active 137 05670 Problem Other chronic pain G89.29 Active 8 2154397 Problem Chronic obstructive pulmonary disease, unspecified COPD ty pe J44.9 Active 03457874 Problem Closed fracture of shaft of right fibula, unspecified fracture morphology, initial encounter S82.401A Active 29503910 Problem Major depressive disorder, single episode F32.9 Active 57147027 Problem Arthropathy, unspecified M12.9 Activ e 019979746 Problem Arthritis M19.90 Active 5098935 ALLERGIES No Information ENCOUNTERS Encounter Location Date Diagnosis [place] [id number] [place] [address] [phone] Jul, [place] [id number] [place] [address] [phone] [id number] 08 Jul, 2019 Alcoholism F10.20 ; Chronic obstructive pulmonary disease, unspecified COPD type J44.9 and Encounter for immunization Z23 [facility] [id number] [place] [address] June, [facility] [id number] [place] [address] [id number] Apr, [place] [id number] [place] [address] 7355 24002 19 Apr, 2019 Cough R05 and Hyperinflation of lungs R09.89 [facility] [address] [id number] [address] [place] [address] Dec, Arthritis M19.90 ; Alcoholis m F10.20 ; Encounter for immunization Z23 and Breast cancer screening by mammogram Z12.31 [place] [address] [facility] [id number] [address] [place] [address] Sep, [place] [address] [facility] [facility] [id number] [address] [place] [address] Sep, Arthropathy of right ankle M 19.071 [place] [address] [id number] [place] [address] Aug, Pain in right ankle and join ts of right foot M25.571 and Other chronic pain G89.29 [place] [id number] [place] [id number] Jul, [place] [id number] [place] [address] Apr, [place] [id number] [place] [address] Apr, Injury of right ankle, initi al encounter S99.911A and Encounter for immunization Z23 [place] [id number] [place] [address] Dec, [place] [id number] [place] [address] Nov, Pain in right ankle and join ts of right foot M25.571 ; Other chronic pain G89.29 and Post-traumatic arthritis of right ankle M19.171 [place] [address] [facility] [facility] [id number] [address] [place] [address] Oct, Arthritis M19.90 [place] [id number] [place] [address] Aug, Arthritis M19.90 [place] [id number] [place] [address] Aug, [place] [id number] [place] [address] Jul, [facility] [address] [id number] [address] [place] [address] June, Arthropathy, unspecified M12 .9 [facility] [address] [facility] [id number] [address] [place] [address] May, Asthma J45.909 and Major dep ressive disorder, single episode F32.9 [facility] [address] [facility] [id number] [address] [place] [address] 16 Mar, 2016 Closed fracture of shaft of right fibula, unspecified fracture morphology, initial encounter S82.401A [facility] [address] [facility] [id number] [address] [place] [address] Feb, [facility] [id number] [place] [address] Feb, [facility] [id number] [place] [address] Nov, [facility] [id number] [place] [address] Nov, Bipolar disorder F31.9 ; Enc ounter for immunization Z23 and Asthma J45.909 [facility] [id number] [place] [address] Aug, [facility] [address] [facility] [id number] [address] [place] [address] May, [facility] [address] [facility] [id number] [address] [place] [address] Apr, [facility] [address] [facility] [id number] [address] [place] [address] Apr, [facility] [address] [facility] [id number] [address] [place] [address] Apr, URI (upper respiratory infec tion) J06.9 [address]9 [facility] [address] [facility] [id number] [address] [place] [id number] Feb, [facility] [id number] [place] [address] Feb, Asthma J45.909 and Alcoholis m F10.20 [facility] [id number] [place] [address] Jan, [facility] [id number] [place] [address] Jan, [facility] [id number] [place] [address] Jan, [facility] [address] [address] Nov, Alcoholism F10.20 [address] An[address] y F41.9 [facility] [address] [id number] [address] [place] [address] Jul, Anxiety 300.[address]16[address] [facility] [id number] [place] [address] Jul, [facility] [address] [address] Jul, Anxiety state 300.00 [facility] [id number] [place] [address] 14 May, 2014 [facility] [id number] [place] [address] May, [facility] [id number] [place] [address] Apr, [facility] [id number] [place] [address] Apr, [facility] [id number] [place] [address] Mar, [facility] [address] [id number] [address] [place] [address], [place] [address] Mar, [facility] [address] [id number] [address] [place] [address], [place] [address] Feb, [facility] [address] [id number] [address] [place] [address], [place] [address] Feb, [facility] [address] [id number] [address] [place] [address], [place] [address] Feb, [facility] [address] [id number] [address] [place] [address], [place] [address] Feb, [facility] [address] [id number] [address] [place] [address], [place] [address] Jan, [facility] [address] [id number] [address] [place] [address], [place] [address] Jan, [facility] [address] [id number] [address] [place] [address], [place] [address] Jan, [facility] [address] [id number] [address] [place] [address], [place] [address] Jan, [facility] [address] [id number] [address] [place] [address], [place] [address] Nov, [facility] [address] [id number] [address] [place] [address], [place] [address] Nov, [facility] [address] [id number] [address] [place] [address], [place] [address] Nov, [facility] [address] [id number] [address] [place] [address], [place] [address] Nov, [facility] [address] [id number] [address] [place] [address], [place] [address] Nov, [facility] [address] [id number] [address] [place] [address], [place] [address] Nov, [facility] [address] [id number] [address] [place] [address], [place] [address] Nov, [facility] [address] [id number] [address] [place] [address], [place] [address] Nov, [facility] [address] [id number] [address] [place] [address], [place] [address] Nov, [facility] [address] [id number] [address] [place] [address], [place] [address] Nov, [facility] [address] [id number] [address] [place] [address], [place] [address] Nov, [facility] [address] [id number] [address] [place] [address], [place] [address] Nov, [facility] [address] [id number] [address] [place] [address], [place] [address] Nov, [facility] [address] [id number] [address] [place] [address], [place] [address] 30 Oct, 2013 [facility] [address] [id number] [address] [place] [address], [place] [address] 30 Oct, 2013 [facility] [address] [id number] [address] [place] [address], [place] [address] 26 Oct, 2013 [facility] [address] [id number] [address] [place] [address], [place] [address] 26 Oct, 2013 [facility] [address] [id number] [address] [place] [address] 08 Sep, 2013 [facility] [address] [id number] [address] [place] [id number] 08 Sep, 2013 [facility] [address] [id number] [address] [place] [address], [place] [address] 04 Sep, 2013 [facility] [address] [id number] [address] [place] [address], [place] [address] 04 Sep, 2013 [facility] [address] [id number] [address] [place] [address] 04 Sep, 2013 [facility] [address] [id number] [address] [place] [address], [place] [address] Oct, [facility] [address] [id number] [address] [place] [address], [place] [address] Oct, [facility] [address] [id number] [address] [place] [address], [place] [address] Oct, [facility] [address] [id number] [address] [place] [address], [place] [address] Sep, [facility] [address] [id number] [address] [place] [address], [place] [address] Sep, [facility] [address] [id number] [address] [place] [address], [place] [address] Sep, [facility] [address] [id number] [address] [place] [address], [place] [address] Sep, [facility] [address] [id number] [address] [place] [address], [place] [address] Sep, [facility] [address] [id number] [address] [place] [address], [place] [address] Sep, [facility] [address] [id number] [address] [place] [address], [place] [address] Sep, [facility] [address] [id number] [address] [place] [address], [place] [address] Sep, [facility] [address] [id number] [address] [place] [address], [place] [address] Aug, [facility] [address] [id number] [address] [place] [address], [place] [address] Aug, [facility] [address] [id number] [address] [place] [address], [place] [address] Aug, [facility] [address] [id number] [address] [place] [address], [place] [address] Aug, [facility] [address] [id number] [address] [place] [address], [place] [address] Jul, [facility] [address] [id number] [facility] [place] [address] Jul, [facility] [address] [id number] [facility] [place] [address] Jul, [facility] [address] [id number] [facility] [place] [address] Jul, [facility] [address] [id number] [address] [place] [address], [place] [address] Jul, [facility] [address] [id number] [address] [place] [address], [place] [address] Jul, [facility] [address] [id number] [address] [place] [address], [place] [address] June, [facility] [address] [id number] [address] [place] [address], [place] [address] June, [facility] [address] [id number] [address] [place] [address], [place] [address] June, [facility] [address] [id number] [address] [place] [address], [place] [address] June, [facility] [address] [id number] [address] [place] [address], [place] [address] June, [facility] [address] [id number] [address] [place] [address], [place] [address] June, [facility] [address] [id number] [address] [place] [address], [place] [address] May, [facility] [address] [id number] [address] [place] [address], [place] [address] May, [facility] [address] [id number] [address] [place] [address], [place] [address] May, [facility] [address] [id number] [address] [place] [address], [place] [address] May, [facility] [address] [id number] [address] [place] [address], [place] [address] May, [facility] [address] [id number] [facility] [place] [address] May, [facility] [address] [id number] [facility] [place] [address] May, [facility] [address] [id number] [facility] [place] [address] May, [facility] [address] [id number] [address] [place] [address], [place] [address] May, [facility] [address] [id number] [facility] [place] [address] May, [facility] [address] [id number] [address] [place] [address], [place] [address] Apr, [facility] [address] [id number] [address] [place] [address], [place] [address] Apr, [facility] [address] [id number] [address] [place] [address], [place] [address] Apr, [facility] [address] [id number] [address] [place] [address], [place] [address] Apr, [facility] [address] [id number] [address] [place] [address], [place] [address] Apr, [facility] [address] [id number] [address] [place] [address], [place] [address] Apr, [facility] [address] [id number] [address] [place] [address], [place] [address] Apr, [facility] [address] [id number] [address] [place] [address], [place] [address] Apr, [facility] [address] [id number] [address] [place] [address], [place] [address] Apr, [facility] [address] [id number] [address] [place] [address], [place] [address] Apr, [facility] [address] [id number] [address] [place] [address], [place] [address] Apr, [facility] [address] [id number] [address] [place] [address], [place] [address] Apr, [facility] [address] [id number] [address] [place] [address], [place] [address] Mar, [facility] [address] [id number] [address] [place] [address], [place] [address] Mar, [facility] [address] [id number] [address] [place] [address], [place] [address] Mar, [facility] [address] [id number] [address] [place] [address], [place] [address] Mar, [facility] [address] [id number] [address] [place] [address], [place] [address] Feb, [facility] [address] [id number] [address] [place] [address], [place] [address] Feb, [facility] [address] [id number] [address] [place] [address], [place] [address] Feb, [facility] [address] [id number] [address] [place] [address], [place] [address] Feb, [facility] [address] [id number] [address] [place] [address], [place] [address] Feb, [facility] [address] [id number] [address] [place] [address], [place] [address] Feb, [facility] [address] [id number] [address] [place] [address], [place] [address] Feb, [facility] [address] [id number] [address] [place] [address], [place] [address] Feb, [facility] [address] [id number] [address] [place] [address], [place] [address] Feb, [facility] [address] [id number] [address] [place] [address], [place] [address] Feb, [facility] [address] [id number] [address] [place] [address], [place] [address] Jan, [facility] [address] [id number] [address] [place] [address], [place] [address] Jan, [facility] [address] [id number] [address] [place] [address], [place] [address] Jan, [facility] [address] [id number] [address] [place] [address], [place] [address] Jan, [facility] [address] [id number] [address] [place] [address], [place] [address] Jan, [facility] [address] [id number] [address] [place] [address], [place] [address] Jan, [facility] [address] [id number] [address] [place] [address], [place] [address] Jan, [facility] [address] [id number] [address] [place] [id number] Jan, [facility] [address] [id number] [address] [place] [address], [place] [id number] Jan, [facility] [address] [id number] [address] [place] [id number] Dec, [facility] [address] [id number] [address] [place] [id number] Dec, [facility] [address] [id number] [address] [place] [id number] Dec, [facility] [address] [id number] [address] [place] [id number] Dec, [facility] [address] [id number] [address] [place] [id number] Nov, [facility] [address] [id number] [address] [place] [id number] Nov, [facility] [address] [id number] [address] [place] [id number] Nov, [facility] [address] [id number] [address] [place] [address], [place] [id number] Nov, [facility] [address] [id number] [address] [place] [address], [place] [id number] Nov, [facility] [address] [id number] [address] [place] [address], [place] [address] Nov, [facility] [address] [id number] [address] [place] [address], [place] [id number] Oct, [facility] [address] [id number] [address] [place] [address], [place] [id number] Oct, [facility] [address] [id number] [address] [place] [address], [place] [id number] Sep, [facility] [address] [id number] [address] [place] [address], [place] [address] Sep, [facility] [address] [id number] [address] [place] [address], [place] [id number] Sep, [facility] [address] [id number] [address] [place] [address], [place] [id number] Sep, [facility] [address] [id number] [address] [place] [address], [place] [id number] Aug, [facility] [address] [id number] [address] [place] [address], [place] [id number] Aug, [facility] [address] [id number] [address] [place] [address], [place] [id number] Aug, [facility] [address] [id number] [address] [place] [address], [place] [address] Jul, [facility] [address] [id number] [address] [place] [address], [place] [id number] Jul, [facility] [address] [id number] [address] [place] [address], [place] [id number] Jul, [facility] [address] [id number] [address] [place] [address], [place] [id number] 13 Jul, [address] [facility] [address] [id number] [address] [place] [address], [place] [address] June, [facility] [address] [id number] [address] [place] [address], [place] [id number] June, [facility] [address] [id number] [address] [place] [address], [place] [address] May, [facility] [address] [id number] [address] [place] [address], [place] [id number] May, [facility] [address] [id number] [address] [place] [address], [place] [address] Apr, [facility] [address] [id number] [address] [place] [address], [place] [address] Apr, [facility] [address] [id number] [address] [place] [address], [place] [id number] Mar, [facility] [address] [id number] [address] [place] [address], [place] [address] Mar, [facility] [address] [id number] [address] [place] [address], [place] [address] Feb, [facility] [address] [id number] [address] [place] [address], [place] [address] Feb, [facility] [address] [id number] [address] [place] [address], [place] [address] Feb, [facility] [address] [id number] [address] [place] [address], [place] [id number] Feb, [facility] [address] [id number] [address] [place] [address], [place] [id number] Feb, [facility] [address] [id number] [address] [place] [address], [place] [id number] 16 Feb, [address] [facility] [address] [id number] [address] [place] [address], [place] [id number] 16 Feb, 2012 [facility] [address] [id number] [address] [place] [address], [place] [id number] Feb, [facility] [address] [id number] [address] [place] [address], [place] [id number] Feb, [facility] [address] [id number] [address] [place] [address], [place] [id number] Jan, [facility] [address] [id number] [address] [place] [address], [place] [id number] Jan, [facility] [address] [id number] [address] [place] [address], [place] [address] Jan, [facility] [address] [id number] [address] [place] [address], [place] [id number] Jan, [facility] [address] [id number] [address] [place] [address], [place] [id number] Dec, [facility] [address] [id number] [address] [place] [address], [place] [id number] Dec, [facility] [address] [id number] [address] [place] [address], [place] [id number] Dec, [facility] [address] [id number] [address] [place] [address], [place] [id number] Dec, [facility] [address] [id number] [address] [place] [address], [place] [id number] Oct, [facility] [address] [id number] [address] [place] [address], [place] [address] Sep, [facility] [address] [id number] [address] [place] [address], [place] [id number] Sep, [facility] [address] [id number] [address] [place] [address], [place] [address] Aug, [facility] [address] [id number] [address] [place] [address], [place] [id number] Jul, [facility] [address] [id number] [address] [place] [id number] June, [facility] [address] [id number] [address] [place] [id number] June, [facility] [address] [id number] [address] [place] [id number] May, [facility] [address] [id number] [address] [place] [id number] Apr, [facility] [address] [id number] [address] [place] [id number] Mar, [facility] [address] [id number] [address] [place] [id number] Mar, [facility] [address] [id number] [address] [place] [id number] Feb, [facility] [address] [id number] [address] [place] [id number] Dec, [facility] [address] [id number] [address] [place] [id number] Nov, [facility] [address] [id number] [address] [place] [id number] Sep, [facility] [address] [id number] [address] [place] [id number] Aug, IMMUNIZATIONS No Known Immunizations SOCIAL HISTORY [...]
--- OUTSIDE RECORDS SUMMARY | 2019-07-31 15:24 | XMS REPORT ---
Author Author Madina LOZOYA Organization [facility] Address [address] [place] [address] Care Team Providers Care Assistant Professor Of Anthropology Name Role Phone HUMA LOZOYA Unavailable PROBLEMS Type Condition ICD9-CM Code OUU79-RM Code Onset Dates Condition S tatus SNOMED Code Problem Asthma J45.909 Active 692572019 Problem Alcoholism F10.20 Active 6939385 Problem Bipolar disorder F31.9 Active 137 43640 Problem Other chronic pain G89.29 Active 8 3445751 Problem Chronic obstructive pulmonary disease, unspecified COPD ty pe J44.9 Active 53148177 Problem Closed fracture of shaft of right fibula, unspecified fracture morphology, initial encounter S82.401A Active 17205555 Problem Major depressive disorder, single episode F32.9 Active 50611046 Problem Arthropathy, unspecified M12.9 Activ e 297883996 Problem Arthritis M19.90 Active 5888546 ALLERGIES No Information ENCOUNTERS Encounter Location Date Diagnosis [place] [id number] [place] [address] [id number] [id number] Jul, [place] [id number] [place] [address] 6645 24009 08 Jul, 2019 Alcoholism F10.20 ; Chronic obstructive pulmonary disease, unspecified COPD type J44.9 and Encounter for immunization Z23 [facility] [id number] [place] [address] June, [facility] [id number] [place] [address] 7027 24001 Apr, [place] [id number] [place] [address] 5893 24009 Apr, Cough R05 and Hyperinflation of lungs R09.89 [facility] [id number] [place] [address] Dec, Arthritis M19.90 ; Alcoholis m F10.20 ; Encounter for immunization Z23 and Breast cancer screening by mammogram Z12.31 [place] [address] [facility] [id number] [address] [place] [address] Sep, [place] [address] [facility] [id number] [address] [place] [address] Sep, Arthropathy of right ankle M 19.071 [place] [id number] [place] [address] Aug, Pain in right ankle and join ts of right foot M25.571 and Other chronic pain G89.29 [place] [address] [id number] [place] [address] Jul, [place] [id number] [place] [address] Apr, [place] [id number] [place] [address] Apr, Injury of right ankle, initi al encounter S99.911A and Encounter for immunization Z23 [place] [address] [id number] [place] [address] Dec, [place] [address] [id number] [place] [address] Nov, Pain in right ankle and join ts of right foot M25.571 ; Other chronic pain G89.29 and Post-traumatic arthritis of right ankle M19.171 [place] [address] [facility] [id number] [address] [place] [address] Oct, Arthritis M19.90 [place] [address] [place] [address] [id number] [place] [address] Aug, Arthritis M19.90 [place] [address] [place] [address] [id number] [place] [address] Aug, [place] [address] [place] [address] [id number] [place] [address] Jul, [facility] [address] [id number] [address] [place] [address] June, Arthropathy, unspecified M12 .9 [facility] [address] [facility] [id number] [address] [place] [address] May, Asthma J45.909 and Major dep ressive disorder, single episode F32.9 [facility] [address] [facility] [id number] [address] [place] [address] 16 Mar, 2016 Closed fracture of shaft of right fibula, unspecified fracture morphology, initial encounter S82.401A [facility] [address] [facility] [id number] [address] [place] [address] Feb, [facility] [id number] [place] [address] Feb, [facility] [id number] [place] [address] Nov, [facility] [id number] [place] [address] Nov, Bipolar disorder F31.9 ; Enc ounter for immunization Z23 and Asthma J45.909 [facility] [id number] [place] [address] Aug, [facility] [address] [facility] [id number] [address] [place] [address] May, [facility] [address] [facility] [id number] [address] [place] [address] Apr, [facility] [address] [facility] [id number] [address] [place] [address] Apr, [facility] [address] [facility] [id number] [address] [place] [address] Apr, URI (upper respiratory infec tion) J06.9 and Bipolar disorder F31.9 [facility] [address] [facility] [id number] [address] [place] [address] Feb, [facility] [id number] [place] [address] Feb, Asthma J45.909 and Alcoholis m F10.20 [facility] [id number] [place] [address] Jan, [facility] [id number] [place] [address] Jan, [facility] [id number] [place] [address] Jan, [facility] [address] [address] Nov, Alcoholism F10.20 and Anxiet y F41.9 [facility] [address] [address] [id number] [place] [address] Jul, Anxiety 300.00 and Arthropat hy 716.90 [facility] [id number] [place] [address] Jul, [facility] [address] [address] Jul, Anxiety state 300.00 [facility] [id number] [place] [address] 14 May, 2014 [facility] [id number] [place] [address] May, [facility] [id number] [place] [address] Apr, [facility] [id number] [place] [phone] Apr, [facility] [id number] [place] [address] Mar, [facility] [address] [id number] [address] [place] [address], [place] [address] Mar, [facility] [address] [id number] [address] [place] [address], [place] [address] Feb, [facility] [address] [id number] [address] [place] [address], [place] [address] Feb, [facility] [address] [id number] [address] [place] [address], [place] [address] Feb, [facility] [address] [id number] [address] [place] [address], [place] [address] Feb, [facility] [address] [id number] [address] [place] [address], [place] [address] Jan, [facility] [address] [id number] [address] [place] [address], [place] [address] Jan, [facility] [address] [id number] [address] [place] [address], [place] [address] Jan, [facility] [address] [id number] [address] [place] [address], [place] [address] Jan, [facility] [address] [id number] [address] [place] [address], [place] [address] Nov, [facility] [address] [id number] [address] [place] [address], [place] [address] Nov, [facility] [address] [id number] [address] [place] [address], [place] [address] Nov, [facility] [address] [id number] [address] [place] [address], [place] [address] Nov, [facility] [address] [id number] [address] [place] [address], [place] [address] Nov, [facility] [address] [id number] [address] [place] [address], [place] [address] Nov, [facility] [address] [id number] [address] [place] [address], [place] [address] Nov, [facility] [address] [id number] [address] [place] [address], [place] [address] Nov, [facility] [address] [id number] [address] [place] [address], [place] [address] Nov, [facility] [address] [id number] [address] [place] [address], [place] [address] Nov, [facility] [address] [id number] [address] [place] [address], [place] [address] Nov, [facility] [address] [id number] [address] [place] [address], [place] [address] Nov, [facility] [address] [id number] [address] [place] [address], [place] [address] Nov, [facility] [address] [id number] [address] [place] [address], [place] [address] 30 Oct, 2013 [facility] [address] [id number] [address] [place] [address], [place] [address] 30 Oct, 2013 [facility] [address] [id number] [address] [place] [address], [place] [address] 26 Oct, 2013 [facility] [address] [id number] [address] [place] [address], [place] [address] 26 Oct, 2013 [facility] [address] [id number] [address] [place] [address] 08 Sep, 2013 [facility] [address] [id number] [address] [place] [id number] 08 Sep, 2013 [facility] [address] [id number] [address] [place] [address], [place] [address] 04 Sep, 2013 [facility] [address] [id number] [address] [place] [address], [place] [address] 04 Sep, 2013 [facility] [address] [id number] [address] [place] [address] 04 Sep, 2013 [facility] [address] [id number] [address] [place] [address], [place] [address] Oct, [facility] [address] [id number] [address] [place] [address], [place] [address] Oct, [facility] [address] [id number] [address] [place] [address], [place] [address] Oct, [facility] [address] [id number] [address] [place] [address], [place] [address] Sep, [facility] [address] [id number] [address] [place] [address], [place] [address] Sep, [facility] [address] [id number] [address] [place] [address], [place] [address] Sep, [facility] [address] [id number] [address] [place] [address], [place] [address] Sep, [facility] [address] [id number] [address] [place] [address], [place] [address] Sep, [facility] [address] [id number] [address] [place] [address], [place] [address] Sep, [facility] [address] [id number] [address] [place] [address], [place] [address] Sep, [facility] [address] [id number] [address] [place] [address], [place] [address] Sep, [facility] [address] [id number] [address] [place] [address], [place] [address] Aug, [facility] [address] [id number] [address] [place] [address], [place] [address] Aug, [facility] [address] [id number] [address] [place] [address], [place] [address] Aug, [facility] [address] [id number] [address] [place] [address], [place] [address] Aug, [facility] [address] [id number] [address] [place] [address], [place] [address] Jul, [facility] [address] [id number] [facility] [place] [address] Jul, [facility] [address] [id number] [facility] [place] [address] Jul, [facility] [address] [id number] [facility] [place] [address] Jul, [facility] [address] [id number] [address] [place] [address], [place] [address] Jul, [facility] [address] [id number] [address] [place] [address], [place] [address] Jul, [facility] [address] [id number] [address] [place] [address], [place] [address] June, [facility] [address] [id number] [address] [place] [address], [place] [address] June, [facility] [address] [id number] [address] [place] [address], [place] [address] June, [facility] [address] [id number] [address] [place] [address], [place] [address] June, [facility] [address] [id number] [address] [place] [address], [place] [address] June, [facility] [address] [id number] [address] [place] [address], [place] [address] June, [facility] [address] [id number] [address] [place] [address], [place] [address] May, [facility] [address] [id number] [address] [place] [address], [place] [address] May, [facility] [address] [id number] [address] [place] [address], [place] [address] May, [facility] [address] [id number] [address] [place] [address], [place] [address] May, [facility] [address] [id number] [address] [place] [address], [place] [address] May, [facility] [address] [id number] [facility] [place] [address] May, [facility] [address] [id number] [facility] [place] [address] May, [facility] [address] [id number] [facility] [place] [address] May, [facility] [address] [id number] [address] [place] [address], [place] [address] May, [facility] [address] [id number] [facility] [place] [address] May, [facility] [address] [id number] [address] [place] [address], [place] [address] Apr, [facility] [address] [id number] [address] [place] [address], [place] [address] Apr, [facility] [address] [id number] [address] [place] [address], [place] [address] Apr, [facility] [address] [id number] [address] [place] [address], [place] [address] Apr, [facility] [address] [id number] [address] [place] [address], [place] [address] Apr, [facility] [address] [id number] [address] [place] [address], [place] [address] Apr, [facility] [address] [id number] [address] [place] [address], [place] [address] Apr, [facility] [address] [id number] [address] [place] [address], [place] [address] Apr, [facility] [address] [id number] [address] [place] [address], [place] [address] Apr, [facility] [address] [id number] [address] [place] [address], [place] [address] Apr, [facility] [address] [id number] [address] [place] [address], [place] [address] Apr, [facility] [address] [id number] [address] [place] [address], [place] [address] Apr, [facility] [address] [id number] [address] [place] [address], [place] [address] Mar, [facility] [address] [id number] [address] [place] [address], [place] [address] Mar, [facility] [address] [id number] [address] [place] [address], [place] [address] Mar, [facility] [address] [id number] [address] [place] [address], [place] [address] Mar, [facility] [address] [id number] [address] [place] [address], [place] [address] Feb, [facility] [address] [id number] [address] [place] [address], [place] [address] Feb, [facility] [address] [id number] [address] [place] [address], [place] [address] Feb, [facility] [address] [id number] [address] [place] [address], [place] [address] Feb, [facility] [address] [id number] [address] [place] [address], [place] [address] Feb, [facility] [address] [id number] [address] [place] [address], [place] [address] Feb, [facility] [address] [id number] [address] [place] [address], [place] [address] Feb, [facility] [address] [id number] [address] [place] [address], [place] [address] Feb, [facility] [address] [id number] [address] [place] [address], [place] [address] Feb, [facility] [address] [id number] [address] [place] [address], [place] [address] Feb, [facility] [address] [id number] [address] [place] [address], [place] [address] Jan, [facility] [address] [id number] [address] [place] [address], [place] [address] Jan, [facility] [address] [id number] [address] [place] [address], [place] [address] Jan, [facility] [address] [id number] [address] [place] [address], [place] [address] Jan, [facility] [address] [id number] [address] [place] [address], [place] [address] Jan, [facility] [address] [id number] [address] [place] [address], [place] [address] Jan, [facility] [address] [id number] [address] [place] [address], [place] [address] Jan, [facility] [address] [id number] [address] [place] [address] Jan, [facility] [address] [id number] [address] [place] [address], [place] [address] Jan, [facility] [address] [id number] [address] [place] [address] Dec, [facility] [address] [id number] [address] [place] [address] Dec, [facility] [address] [id number] [address] [place] [address] Dec, [facility] [address] [id number] [address] [place] [address] Dec, [facility] [address] [id number] [address] [place] [id number] Nov, [facility] [address] [id number] [address] [place] [id number] Nov, [facility] [address] [id number] [address] [place] [id number] Nov, [facility] [address] [id number] [address] [place] [address], [place] [address] Nov, [facility] [address] [id number] [address] [place] [address], [place] [address] Nov, [facility] [address] [id number] [address] [place] [address], [place] [address] Nov, [facility] [address] [id number] [address] [place] [address], [place] [address] Oct, [facility] [address] [id number] [address] [place] [address], [place] [address] Oct, [facility] [address] [id number] [address] [place] [address], [place] [address] Sep, [facility] [address] [id number] [address] [place] [address], [place] [address] Sep, [facility] [address] [id number] [address] [place] [address], [place] [address] Sep, [facility] [address] [id number] [address] [place] [address], [place] [address] Sep, [facility] [address] [id number] [address] [place] [address], [place] [address] Aug, [facility] [address] [id number] [address] [place] [address], [place] [address] Aug, [facility] [address] [id number] [address] [place] [address], [place] [address] Aug, [facility] [address] [id number] [address] [place] [address], [place] [address] Jul, [facility] [address] [id number] [address] [place] [address], [place] [address] Jul, [facility] [address] [id number] [address] [place] [address], [place] [address] Jul, [facility] [address] [id number] [address] [place] [address], [place] [address] 13 Jul, 2012 [facility] [address] [id number] [address] [place] [address], [place] [address] June, [facility] [address] [id number] [address] [place] [address], [place] [address] June, [facility] [address] [id number] [address] [place] [address], [place] [address] May, [facility] [address] [id number] [address] [place] [address], [place] [address] May, [facility] [address] [id number] [address] [place] [address], [place] [address] Apr, [facility] [address] [id number] [address] [place] [address], [place] [address] Apr, [facility] [address] [id number] [address] [place] [address], [place] [address] Mar, [facility] [address] [id number] [address] [place] [address], [place] [address] Mar, [facility] [address] [id number] [address] [place] [address], [place] [address] Feb, [facility] [address] [id number] [address] [place] [address], [place] [address] Feb, [facility] [address] [id number] [address] [place] [address], [place] [address] Feb, [facility] [address] [id number] [address] [place] [address], [place] [address] Feb, [facility] [address] [id number] [address] [place] [address], [place] [address] Feb, [facility] [address] [id number] [address] [place] [address], [place] [address] 16 Feb, 2012 [facility] [address] [id number] [address] [place] [address], [place] [address] 16 Feb, 2012 [facility] [address] [id number] [address] [place] [address], [place] [address] Feb, [facility] [address] [id number] [address] [place] [address], [place] [address] Feb, [facility] [address] [id number] [address] [place] [address], [place] [address] Jan, [facility] [address] [id number] [address] [place] [address], [place] [address] Jan, [facility] [address] [id number] [address] [place] [address], [place] [address] Jan, [facility] [address] [id number] [address] [place] [address], [place] [address] Jan, [facility] [address] [id number] [address] [place] [address], [place] [address] Dec, [facility] [address] [id number] [address] [place] [address], [place] [id number] Dec, [facility] [address] [id number] [address] [place] [address], [place] [id number] Dec, [facility] [address] [id number] [address] [place] [address], [place] [id number] Dec, [facility] [address] [id number] [address] [place] [address], [place] [id number] Oct, [facility] [address] [id number] [address] [place] [address], [place] [id number] Sep, [facility] [address] [id number] [address] [place] [address], [place] [id number] Sep, [facility] [address] [id number] [address] [place] [address], [place] [id number] Aug, [facility] [address] [id number] [address] [place] [address], [place] [id number] Jul, [facility] [address] [id number] [address] [place] [id number] June, [facility] [address] [id number] [address] [place] [id number] June, [facility] [address] [id number] [address] [place] [id number] May, [facility] [address] [id number] [address] [place] [id number] Apr, [facility] [address] [id number] [address] [place] [id number] Mar, [facility] [address] [id number] [address] [place] [id number] Mar, [facility] [address] [id number] [address] [place] [id number] Feb, [facility] [address] [id number] [address] [place] [id number] Dec, [facility] [address] [id number] [address] [place] [id number] Nov, [facility] [address] [id number] [address] [place] [id number] Sep, [facility] [address] [id number] [address] [place] [id number] Aug, IMMUNIZATIONS No Known Immunizations SOCIAL HISTORY [...]
--- OUTSIDE RECORDS SUMMARY | 2019-07-31 15:26 | XMS REPORT | Continuity of Care Document ---
Author Organization Unknown Address Unknown Phone Unavailable Allergies Active Description Code Type Severity Reaction Onset Reported/Identified Relationship to Patient Clinical Status Yes NO KNOWN DRUG ALLERGIES UNKNOWN NO KNOWN DRUG ALLERG Yes NO KNOWN DRUG ALLERGIES UNKNOWN UNKNOWN Yes No Known Drug Allergies [id number] Drug Allergy Unknown N/A 07/20/2012 Medications Medication [...] MD 465.9 Upper Respiratory Infection 04/01/2010 DWIGHT FORMULA MIXER, APRIL A 30 5.1 NONDEPENDENT TOBACCO USE DISORDER 04/01/2010 DWIGHT FORMULA MIXER, APRIL A 46 5.9 Upper Respiratory Infection 04/01/2010 DWIGHT FORMULA MIXER, APRIL A 30 5.1 NONDEPENDENT TOBACCO USE DISORDER 04/01/2010 DWIGHT FORMULA MIXER, APRIL A 46 5.9 Upper Respiratory Infection [...] SYNDROME 05/14/2010 HUMA LOZOYA MD V72.3 1 Slug Press Operator Exam, Routine 05/14/2010 BALDERRAMA DO, BERRY K 354.0 CARPAL TUNNEL SYNDROME 05/14/2010 BALDERRAMA DO, BERRY K V72.31 Slug Press Operator Exam, Routine 05/14/2010 BALDERRAMA DO, BERRY K 354.0 CARPAL TUNNEL SYNDROME 05/14/2010 BALDERRAMA DO, BERRY K V72.31 Slug Press Operator Exam, Routine 05/14/2010 HUMA LOZOYA MD 354.0 CARPAL TUNNEL SYNDROME 05/14/2010 HUMA LOZOYA MD V72.3 1 Slug Press Operator Exam, Routine 05/14/2010 354.0 CARP AL TUNNEL SYNDROME 05/14/2010 V72.31 Slug Press Operator Exam, Routine 05/14/2010 HUAM LOZOYA MD 354.0 CARPAL TUNNEL SYNDROME 05/14/2010 HUMA LOZOYA MD V72.3 1 Slug Press Operator Exam, Routine 05/14/2010 HUMA LOZOYA MD 354.0 CARPAL TUNNEL SYNDROME 05/14/2010 HUMA LOZOYA MD V72.3 1 Slug Press Operator Exam, Routine 05/14/2010 HUMA LOZOYA MD 354.0 CARPAL TUNNEL SYNDROME 05/14/2010 HUMA LOZOYA MD V72.3 1 Slug Press Operator Exam, Routine 05/14/2010 HUMA LOZOYA MD 354.0 CARPAL TUNNEL SYNDROME 05/14/2010 HUMA LOZOYA MD V72.3 1 Slug Press Operator Exam, Routine 05/14/2010 HUMA LOZOYA MD 354.0 CARPAL TUNNEL SYNDROME 05/14/2010 UHMA LOZOYA MD V72.3 1 Slug Press Operator Exam, Routine 05/14/2010 DWIGHT FORMULA MIXER, APRIL A 35 4.0 CARPAL TUNNEL SYNDROME 05/14/2010 APRIL QUINTANILLA APRN V72.31 Slug Press Operator Exam, Routine 05/14/2010 DWIGHT FORMULA MIXER, APRIL A 35 4.0 CARPAL TUNNEL SYNDROME 05/14/2010 APRIL QUINTANILLA APRN V72.31 Slug Press Operator Exam, Routine 05/14/2010 BALDERRAMA DO, BERRY K 354.0 CARPAL TUNNEL SYNDROME 05/14/2010 BERRY BALDERRAMA DO V72.31 Slug Press Operator Exam, Routine 05/14/2010 BERRY BALDERRAMA DO K 354.0 CARPAL TUNNEL SYNDROME 05/14/2010 BERRY BALDERRAMA DO V72.31 Slug Press Operator Exam, Routine 05/14/2010 HUMA LOZOYA MD 354.0 CARPAL TUNNEL SYNDROME 05/14/2010 HUMA LOZOYA MD V72.3 1 Slug Press Operator Exam, Routine 05/14/2010 HUMA LOZOYA MD 354.0 CARPAL TUNNEL SYNDROME 05/14/2010 HUMA LOZOYA MD V72.3 1 Slug Press Operator Exam, Routine 05/14/2010 ADDIS SPRINGER APRN 354.0 CARPAL TUNNEL SYNDROME 05/14/2010 ADDIS SPRINGER APRN V72.31 Slug Press Operator Exam, Routine 05/14/2010 HUMA LOZOYA MD 354.0 CARPAL TUNNEL SYNDROME 05/14/2010 HUMA LOZOYA MD V72.3 1 Slug Press Operator Exam, Routine 05/14/2010 HUMA LOZOYA MD 354.0 CARPAL TUNNEL SYNDROME 05/14/2010 HUMA LOZOYA MD V72.3 1 Slug Press Operator Exam, Routine 05/14/2010 354.0 CARP AL TUNNEL SYNDROME 05/14/2010 V72.31 Slug Press Operator Exam, Routine 05/14/2010 HUMA LOZOYA MD 354.0 CARPAL TUNNEL SYNDROME 05/14/2010 HUMA LOZOYA MD V72.3 1 Slug Press Operator Exam, Routine 06/09/2010 HUMA LOZOYA MD 381.8 [...] ABNORMALITY OF RED BLOOD CELLS 08/15/2010 HUMA LOZOAY MD 790.0 9 OTHER ABNORMALITY OF RED BLOOD CELLS 08/15/2010 DWIGHT FORMULA MIXER, APRIL A 790.09 OTHER ABNORMALITY OF RED BLOOD CELLS 08/15/2010 DWIGHT FORMULA MIXER, APRIL A 790.09 OTHER ABNORMALITY OF RED BLOOD CELLS 08/15/2010 JEOVANNY BALDERRAMA DOA K 790.09 OTHER ABNORMALITY OF RED BLOOD CELLS 08/15/2010 JEOVANNY BALDERRAMA DOA K 790.09 OTHER ABNORMALITY OF RED BLOOD CELLS 08/15/2010 HUMA LOZOYA MD 790.0 9 OTHER ABNORMALITY OF RED BLOOD CELLS 08/15/2010 HUMA LOZOYA MD 790.0 9 OTHER ABNORMALITY OF RED BLOOD CELLS 08/15/2010 SPRINGER FORMULA MIXERADDIS A 790.09 OTHER ABNORMALITY OF RED BLOOD [...] 300.0 0 ANXIETY STATE UNSPECIFIED 08/20/2010 DWIGHT FORMULA MIXER, APRIL A 300.00 ANXIETY STATE UNSPECIFIED 08/20/2010 DWIGHT FORMULA MIXER, APRIL A 300.00 ANXIETY STATE UNSPECIFIED 08/20/2010 BALDERRAMA DO, BERRY K 300.00 ANXIETY STATE UNSPECIFIED 08/20/2010 BALDERRAMA DO, BERRY K 300.00 ANXIETY STATE UNSPECIFIED 08/20/2010 HUMA LOZOYA MD 300.0 0 ANXIETY STATE UNSPECIFIED 08/20/2010 HUMA LOZOYA MD 300.0 0 ANXIETY STATE UNSPECIFIED 08/20/2010 SPRINGER FORMULA MIXER, ADDIS A 300.00 ANXIETY STATE UNSPECIFIED 08/20/2010 [...] 9 OTHER MALAISE AND FATIGUE 05/05/2011 BERRY BLADERRAMA DO 780.79 OTHER MALAISE AND FATIGUE 05/05/2011 [...] LOZOYA MD 627.2 MENOPAUSAL SX 02/19/2012 HUMA LOZOAY MD V76.1 0 BREAST CANCER SCREENING 02/19/2012 [...] A V76.10 BREAST CANCER SCREENING 04/17/2013 DWIGHT FORMULA MIXER, APRIL A V76.51 COLON CANCER SCREENING 04/17/2013 DWIGHT FORMULA MIXER APRIL A V82.81 SPECIAL SCREENING FOR OSTEOPOROSIS [...] 1 SPECIAL SCREENING FOR OSTEOPOROSIS 04/17/2013 SPRINGER FORMULA MIXER ADDIS A V65.42 COUNSELING - SMOKING CESSATION 04/17/2013 SPRINGER FORMULA MIXER ADDIS A V65.49 OTHER SPECIFIED COUNSELING 04/17/2013 SPRINGER FORMULA MIXER, ADDIS A V76.10 BREAST CANCER SCREENING 04/17/2013 SPRINGER FORMULA MIXER ADDIS A V76.51 COLON CANCER SCREENING 04/17/2013 SPRINGER FORMULA MIXER, ADDIS A V82.81 SPECIAL SCREENING FOR OSTEOPOROSIS [...] MD F Ot V76.12 03/16/2014 DWIGHTAPRIL Tanner FORMULA MIXER Ot 733.90 03/16/2014 DWIGHT APRIL A FORMULA MIXER Ot V65.42 03/16/2014 DWIGHT, APRIL A FORMULA MIXER Ot V65.49 03/16/2014 DWIGHT, APRIL A FORMULA MIXER Ot V76.12 03/16/2014 JI QUINTANILLAIDI A FORMULA MIXER Ot V76.51 03/16/2014 DWIGHT APRIL A FORMULA MIXER Ot V82.81 03/19/2014 HUMA LOZOYA MD V76.1 [...] OTHER NONCOMPLIANCE WITH MEDIC 03/03/2016 LI LOPEZ FORMULA MIXER Ot J44 .9 CHRONIC OBSTRUCTIVE PULMONARY DISEASE, [...] STATUS 03/03/2016 LI LOPEZ APRN Ot 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.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 PROCESS 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 OF ASPIRIN 03/03/2016 LI LOPEZ APRN Ot Z79.899 OTHER METAL ENGINEERING PROCESS WORKER (CURRENT) DRUG THERAPY 03/03/2016 Ot V76.12 OTH SCREEN MAMMO- MALIGN NEOPLASM OF ETIENNE 03/03/2016 HUMA LOZOYA MD Ot V76.12 OTH SCREEN MAMMO-MALIGN NEOPLASM OF ETIENNE 03/03/2016 APRIL QUINTANILLA FORMULA MIXER Ot 733.90 BONE CARTILAGE DIS NOS 03/03/2016 APRIL QUINTANILLA FORMULA MIXER Ot V65.42 COUNSELING ON SUBSTANCE USE AND ABUSE 03/03/2016 APRIL QUINTANILLA FORMULA MIXER Ot V65.49 OTHER SPECIFIED COUNSELING 03/03/2016 APRIL QUINTANILLA FORMULA MIXER Ot V76.12 OTH SCREEN MAMMO-MALIGN NEOPLASM OF ETIENNE 03/03/2016 APRIL QUINTANILLA FORMULA MIXER Ot V76.51 SCREEN MAL NEOP-COLON 03/03/2016 APRIL QUINTANILLA FORMULA MIXER Ot V82.81 SCREENING FOR OSTEOPOROSIS 03/03/2016 Ot V76.12 OTH SCREEN MAMMO- MALIGN NEOPLASM OF ETIENNE 03/03/2016 HUMA LOZOYA MD Ot V76.12 OTH SCREEN MAMMO-MALIGN NEOPLASM OF ETIENNE 03/03/2016 APRIL QUINTANILLA A FORMULA MIXER Ot 733.90 BONE CARTILAGE DIS NOS 03/03/2016 APRIL QUINTANILLA Jp FORMULA MIXER Ot V65.42 COUNSELING ON SUBSTANCE USE AND ABUSE 03/03/2016 DWIGHTJIAPRIL A FORMULA MIXER Ot V65.49 OTHER SPECIFIED COUNSELING 03/03/2016 APRIL QUINTANILLA FORMULA MIXER Ot V76.12 OT SCREEN MAMMO-MALIGN NEOPLASM OF ETIENNE 03/03/2016 DWIGHTJIAPRIL A FORMULA MIXER Ot V76.51 SCREEN MAL NEOP-COLON 03/03/2016 DWIGHTJIAPRIL A FORMULA MIXER Ot V82.81 SCREENING FOR OSTEOPOROSIS 03/04/2016 LI LOPEZ APRN Ot J44 .9 CHRONIC OBSTRUCTIVE PULMONARY DISEASE, U 03/04/2016 LI LOPEZ APRN Ot S82.401A UNSP FRACTURE OF SHAFT OF RIGHT FIBULA, 03/04/2016 LI LOPEZ APRN Ot S99.911A UNSPECIFIED INJURY OF RIGHT ANKLE, INITI 03/04/2016 LI LOPEZ APRN Ot X58.XXXA EXPOSURE TO OTHER SPECIFIED FACTORS, INI 03/04/2016 LI LOPEZ APRN Ot Y92.[address] IN [facility] NON-INSTITUT (PRIVATE 03/04/2016 LI LOPEZ APRN Ot Y99 .8 OTHER EXTERNAL CAUSE STATUS 03/04/2016 LI LOPEZ APRN Ot Z79.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 OF ASPIRIN 03/04/2016 LI LOPEZ APRN Ot Z79.899 OTHER METAL ENGINEERING PROCESS WORKER (CURRENT) DRUG THERAPY 03/05/2016 LI LOPEZ APRN Ot J44 .9 CHRONIC OBSTRUCTIVE PULMONARY DISEASE, U 03/05/2016 LI LOPEZ APRN Ot S82.401A UNSP FRACTURE OF SHAFT OF RIGHT FIBULA, 03/05/2016 LI LOPEZ APRN Ot S99.911A UNSPECIFIED INJURY OF RIGHT ANKLE, INITI 03/05/2016 LI LOPEZ APRN Ot X58.XXXA EXPOSURE TO OTHER SPECIFIED FACTORS, INI 03/05/2016 LI LOPEZ APRN Ot Y92.[address] IN [facility] NON-INSTITUT (PRIVATE 03/05/2016 LI LOPEZ APRN Ot Y99 .8 OTHER EXTERNAL CAUSE STATUS 03/05/2016 LI LOPEZ APRN Ot Z79.82 [facility] (CURRENT) USE OF ASPIRIN 03/05/2016 LI LOPEZ APRN Ot Z79.899 OTHER METAL ENGINEERING PROCESS WORKER (CURRENT) DRUG THERAPY 07/11/2016 MELISSA GARCIA Ot F10.129 ALCOHOL ABUSE WITH INTOXICATION, UNSPECI 07/11/2016 MELISSA GARCIA Ot F17.210 NICOTINE DEPENDENCE, CIGARETTES, UNCOMPL 07/11/2016 MELISSA GARCIA Ot J44.9 CHRONIC OBSTRUCTIVE PULMONARY DISEASE, U 07/11/2016 MELISSA GARCIA Ot Y90.6 BLOOD ALCOHOL LEVEL OF 120-199 MG/100 ML 07/11/2016 MELISSA GARCIA Ot Z79.82 [facility] (CURRENT) USE OF ASPIRIN 07/11/2016 MELISSA GARCIA Ot Z79.899 OTHER [facility] (CURRENT) DRUG THERAPY 04/06/2017 MALIA JOLLY MD [...] R 04/06/2017 MALIA JOLLY MD Ot Z79.82 [facility] (CURRENT) USE OF ASPIRIN 04/06/2017 MALIA JOLLY [...] FACTORS, INI 04/06/2017 MELISSA GARCIA Ot Z79.82 [facility] (CURRENT) USE OF ASPIRIN 04/06/2017 MELISSA GARCIA [...] R 04/08/2017 MALIA JOLLY MD Ot Z79.82 [facility] (CURRENT) USE OF ASPIRIN 04/08/2017 MALIA JOLLY [...] FACTORS, INI 04/08/2017 MELISSA GARCIA Ot Z79.82 [facility] (CURRENT) USE OF ASPIRIN 04/08/2017 MELISSA GARCIA [...] NEOPLASM OF ETIENNE 05/19/2017 DWIGHT, APRIL A FORMULA MIXER Ot 733.90 BONE CARTILAGE DIS NOS 05/19/2017 APRIL QUINTANILLA FORMULA MIXER Ot V65.42 COUNSELING ON SUBSTANCE USE AND ABUSE 05/19/2017 JI QUINTANILLAIDI A FORMULA MIXER Ot V65.49 OTHER SPECIFIED COUNSELING 05/19/2017 JI QUINTANILLAIDI Jp FORMULA MIXER Ot V76.12 OTH SCREEN MAMMO-MALIGN NEOPLASM OF ETIENNE 05/19/2017 APRIL QUINTANILLA FORMULA MIXER Ot V76.51 SCREEN MAL NEOP-COLON 05/19/2017 JI QUINTANILLAIDI A FORMULA MIXER Ot V82.81 SCREENING FOR OSTEOPOROSIS 05/19/2017 MELISSA [...] MAMMO-MALIGN NEOPLASM OF ETIENNE 05/19/2017 APRIL QUINTANILLA FORMULA MIXER Ot 733.90 BONE CARTILAGE DIS NOS 05/19/2017 JI QUINTANILLAIDI A FORMULA MIXER Ot V65.42 COUNSELING ON SUBSTANCE USE AND ABUSE 05/19/2017 JI QUINTANILLAIDI A FORMULA MIXER Ot V65.49 OTHER SPECIFIED COUNSELING 05/19/2017 DWIGHTAPRIL FORMULA MIXER Ot V76.12 OTH SCREEN MAMMO-MALIGN NEOPLASM OF ETIENNE 05/19/2017 APRIL QUINTANILLA FORMULA MIXER Ot V76.51 SCREEN MAL NEOP-COLON 05/19/2017 APRIL QUINTANILLA FORMULA MIXER Ot V82.81 SCREENING FOR OSTEOPOROSIS 05/19/2017 MELISSA GARCIA Ot R06.02 SHORTNESS OF BREATH 05/20/2017 Ot V76.12 OTH SCREEN MAMMO- MALIGN NEOPLASM OF ETIENNE 05/20/2017 HUMA LOZOYA MD Ot V76.12 OTH SCREEN MAMMO-MALIGN NEOPLASM OF ETIENNE 05/20/2017 DWIGHT, APRIL A FORMULA MIXER Ot 733.90 BONE CARTILAGE DIS NOS 05/20/2017 APRIL QUINTANILLA FORMULA MIXER Ot V65.42 COUNSELING ON SUBSTANCE USE AND ABUSE 05/20/2017 APRIL QUINTANILLA FORMULA MIXER Ot V65.49 OTHER SPECIFIED COUNSELING 05/20/2017 APRIL QUINTANILLA FORMULA MIXER Ot V76.12 OTH SCREEN MAMMO-MALIGN NEOPLASM OF ETIENNE 05/20/2017 APRIL QUINTANILLA FORMULA MIXER Ot V76.51 SCREEN MAL NEOP-COLON 05/20/2017 APRIL QUINTANILLA FORMULA MIXER Ot V82.81 SCREENING FOR OSTEOPOROSIS 05/21/2017 ASHLYN [...] BREATH 05/21/2017 LI LOPEZ APRN Ot Z79.82 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 ENGINEERING PROCESS 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 OF ASPIRIN 05/21/2017 LI LOPEZ [...] BREATH 05/24/2017 LI LOPEZ APRN Ot Z79.82 METAL ENGINEERING PROCESS 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 OF ASPIRIN 05/24/2017 LI LOPEZ APRN Ot Z80 .8 FAMILY HISTORY OF MALIGNANT NEOPLASM OF 05/24/2017 LI LOPEZ APRN Ot Z87.448 PERSONAL HISTORY OF OTHER DISEASES OF UR 05/24/2017 LI LOPEZ APRN Ot Z91 .5 PERSONAL HISTORY OF SELF-HARM 05/29/2017 SHAHANA ROSENTHALP Ot F10.129 ALCOHOL ABUSE WITH INTOXICATION, UNSPECI 05/29/2017 ARIADNA, SHAHANA HERB COUNSELOR Ot F12.90 CANNABIS USE, UNSPECIFIED, UNCOMPLICATED 05/29/2017 ARIADNA, SHAHANA HERB COUNSELOR Ot F31.9 BIPOLAR DISORDER, UNSPECIFIED 05/29/2017 ARIADNA, SHAHANA HERB COUNSELOR Ot F41.9 ANXIETY DISORDER, UNSPECIFIED 05/29/2017 ARIADNA, SHAHANA HERB COUNSELOR Ot G47.30 SLEEP APNEA, UNSPECIFIED 05/29/2017 ARIADNA, SHAHANA HERB COUNSELOR Ot G47.9 SLEEP DISORDER, UNSPECIFIED 05/29/2017 ARIADNA, SHAHANA HERB COUNSELOR Ot J44.9 CHRONIC OBSTRUCTIVE PULMONARY DISEASE, U 05/29/2017 ARIADNA SHAHANA HERB COUNSELOR Ot R06.02 SHORTNESS OF BREATH 05/29/2017 ARIADNA SHAHANA HERB COUNSELOR Ot Z77.22 CNTCT W AND EXPSR TO ENVIRON TOBACCO SMO 05/29/2017 ARIADNA SHAHANA HERB COUNSELOR Ot Z79.82 METAL ENGINEERING PROCESS 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 OF ASPIRIN 05/29/2017 ARIADNA SHAHANA HERB COUNSELOR Ot Z87.81 PERSONAL HISTORY OF (HEALED) TRAUMATIC F 05/29/2017 ARIADNA SHAHANA HERB COUNSELOR Ot Z91.5 PERSONAL HISTORY OF SELF-HARM 06/08/2017 [...] DISEASE, U 06/08/2017 MELISSA GARCIA Ot Z79.82 METAL ENGINEERING PROCESS 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 OF ASPIRIN 06/08/2017 MELISSA GARCIA [...] DISEASE, U 06/10/2017 MELISSA GARCIA Ot Z79.82 METAL ENGINEERING PROCESS 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 OF ASPIRIN 06/10/2017 MELISSA GARCIA Ot Z80.8 FAMILY HISTORY OF MALIGNANT NEOPLASM OF 06/10/2017 MELISSA GARCIA Ot Z91.5 PERSONAL HISTORY OF SELF-HARM 08/19/2017 LI LOPEZ APRN Ot F10.229 ALCOHOL DEPENDENCE WITH INTOXICATION, UN 08/19/2017 LI LOPEZ FORMULA MIXER Ot F12.10 CANNABIS ABUSE, UNCOMPLICATED 08/19/2017 LI [...] SMO 08/19/2017 LI LOPEZ APRN Ot Z79.82 METAL ENGINEERING PROCESS 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 OF ASPIRIN 08/19/2017 LI LOPEZ [...] SMO 08/23/2017 LI LOPEZ APRN Ot Z79.82 [facility] (CURRENT) USE OF ASPIRIN 08/23/2017 LI LOPEZ [...] SLE EP APNEA, UNSPECIFIED 09/13/2017 Ot J44.9 CARDIAC TECHNICIAN [place] OBSTRUCTIVE PULMONARY DISEASE, U 09/13/2017 Ot [...] TOBACCO SMO 10/10/2017 MARINA MULLINSIS Ot Z79.82 METAL ENGINEERING PROCESS 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 OF ASPIRIN 10/10/2017 JENIFER MULLINS [...] TOBACCO SMO 10/12/2017 JENIFER MULLINS Ot Z79.82 METAL ENGINEERING PROCESS 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 OF ASPIRIN 10/12/2017 JENIFER MULLINS [...] TOBACCO SMO 06/29/2018 JENIFER MULLINS Ot Z79.82 METAL ENGINEERING PROCESS 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 OF ASPIRIN 06/29/2018 JENIFER MULLINS [...] SMO 06/30/2018 LI LOPEZ APRN Ot Z79.82 METAL ENGINEERING PROCESS 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 OF ASPIRIN 06/30/2018 LI LOPEZ [...] TOBACCO SMO 07/01/2018 MARINA MULLINSIS Ot Z79.82 [facility] (CURRENT) USE OF ASPIRIN 07/01/2018 JENIFER MULLINS [...] TOBACCO SMO 07/05/2018 JENIFER MULLINS Ot Z79.82 [facility] (CURRENT) USE OF ASPIRIN 07/05/2018 JENIFER MULLINS [...] SMO 07/06/2018 LI LOPEZ APRN Ot Z79.82 METAL ENGINEERING PROCESS 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 OF ASPIRIN 07/06/2018 LI LOPEZ [...] TOBACCO SMO 07/13/2018 JENIFER MULLINS Ot Z79.82 METAL ENGINEERING PROCESS 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 OF ASPIRIN 07/13/2018 MARINA MULLINSIS [...] TOBACCO SMO 07/18/2018 HARPREET JENIFER Ot Z79.82 [facility] (CURRENT) USE OF ASPIRIN 07/18/2018 TIANDANE JENFIER Ot Z80.8 FAMILY HISTORY OF MALIGNANT NEOPLASM [...] 09/09/2018 TANNA LOPEZ MD Ot Z79. 82 METAL ENGINEERING PROCESS 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 OF ASPIRIN 09/09/2018 TANNA LOPEZ [...] 09/13/2018 TANNA LOPEZ MD Ot Z79. 82 [facility] (CURRENT) USE OF ASPIRIN 09/13/2018 TANNA LOPEZ [...] SMO 10/11/2018 LI LOPEZ APRN Ot Z79.82 [facility] (CURRENT) USE OF ASPIRIN 10/11/2018 LI LOPEZ [...] SMO 10/14/2018 LI LOPEZ APRN Ot Z79.82 METAL ENGINEERING PROCESS 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 OF ASPIRIN 10/14/2018 LI LOPEZ [...] Z72.0 TOBACCO USE 07/02/2019 LOPEZ, LI Montes FORMULA MIXER Ot F10.20 ALCOHOL DEPENDENCE, UNCOMPLICATED 07/02/2019 LOPEZ, LI Montes FORMULA MIXER Ot F31 .9 BIPOLAR DISORDER, UNSPECIFIED 07/02/2019 LOPEZ, LI Montes APRN Ot F41 .9 ANXIETY DISORDER, UNSPECIFIED 07/02/2019 LOPEZLI FORMULA MIXER Ot Z77.22 CNTCT W AND EXPSR TO ENVIRON TOBACCO SMO 07/02/2019 LOPEZ, LI Montes FORMULA MIXER Ot Z79.82 METAL ENGINEERING PROCESS 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 OF ASPIRIN 07/02/2019 LOPEZ, LI Montes FORMULA MIXER Ot Z80 .8 FAMILY HISTORY OF MALIGNANT NEOPLASM OF 07/03/2019 JOHN, LI Montes FORMULA MIXER Ot F10.129 ALCOHOL ABUSE WITH INTOXICATION, UNSPECI 07/03/2019 LOPEZ, LI Montes FORMULA MIXER Ot F10.229 ALCOHOL DEPENDENCE WITH INTOXICATION, UN [...] EXPSR TO ENVIRON TOBACCO SMO 07/03/2019 LOPEZLI FORMULA MIXER Ot Z79.82 [facility] (CURRENT) USE OF ASPIRIN 07/03/2019 LOPEZLI FORMULA MIXER Ot Z80 .8 FAMILY HISTORY OF MALIGNANT NEOPLASM OF 07/05/2019 LOPEZ, LI Montes FORMULA MIXER Ot F10.20 ALCOHOL DEPENDENCE, UNCOMPLICATED 07/05/2019 LOPEZ, LI Montes APRN Ot F31 .9 BIPOLAR DISORDER, UNSPECIFIED 07/05/2019 LOPEZLI FORMULA MIXER Ot F41 .9 ANXIETY DISORDER, UNSPECIFIED 07/05/2019 LOPEZLI FORMULA MIXER Ot Z77.22 CNTCT W AND EXPSR TO ENVIRON TOBACCO SMO 07/05/2019 LOPEZ, LI Montes FORMULA MIXER Ot Z79.82 METAL ENGINEERING PROCESS 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 OF ASPIRIN 07/05/2019 LI LOPEZ FORMULA MIXER Ot Z80 .8 FAMILY HISTORY OF MALIGNANT NEOPLASM OF 07/11/2019 LOPEZ, LI Montes FORMULA MIXER Ot F10.129 ALCOHOL ABUSE WITH INTOXICATION, UNSPECI 07/11/2019 LOPEZ, LI Montes FORMULA MIXER Ot F10.229 ALCOHOL DEPENDENCE WITH INTOXICATION, UN 07/11/2019 LOPEZ, LI Montes APRN Ot F31 .9 BIPOLAR DISORDER, UNSPECIFIED 07/11/2019 LOPEZ, LI Montes APRN Ot F41 .9 ANXIETY DISORDER, UNSPECIFIED 07/11/2019 LOPEZ, LI Montes FORMULA MIXER Ot G89.29 OTHER CHRONIC PAIN 07/11/2019 LOPEZ, LI Montes FORMULA MIXER Ot M54 .9 DORSALGIA, UNSPECIFIED 07/11/2019 LOPEZ, LI Montes FORMULA MIXER Ot Z77.22 CNTCT W AND EXPSR TO ENVIRON TOBACCO SMO 07/11/2019 LOPEZ, LI Montes FORMULA MIXER Ot Z79.82 [facility] (CURRENT) USE OF ASPIRIN 07/11/2019 LOPEZ, LI Montes FORMULA MIXER Ot Z80 .8 FAMILY HISTORY OF MALIGNANT NEOPLASM OF 07/14/2019 LOPEZ, LI Montes APRN Ot F10.20 ALCOHOL DEPENDENCE, UNCOMPLICATED 07/14/2019 LOPEZ, LI Montes APRN Ot F31 .9 BIPOLAR DISORDER, UNSPECIFIED 07/14/2019 LOPEZ, LI Montes APRN Ot F41 .9 ANXIETY DISORDER, UNSPECIFIED 07/14/2019 LOPEZ, LI Montes FORMULA MIXER Ot G89.29 OTHER CHRONIC PAIN 07/14/2019 LOPEZ, LI Montes APRN Ot M54 .9 DORSALGIA, UNSPECIFIED 07/14/2019 LOPEZ, LI Montes APRN Ot Z77.22 CNTCT W AND EXPSR TO ENVIRON TOBACCO SMO 07/14/2019 LOPEZ, LI Montes FORMULA MIXER Ot Z79.82 [facility] (CURRENT) USE OF ASPIRIN 07/14/2019 LOPEZ, LI Montes FORMULA MIXER Ot Z80 .8 FAMILY HISTORY OF MALIGNANT NEOPLASM OF 07/17/2019 LOPEZ, LI Montes FORMULA MIXER Ot F10.20 ALCOHOL DEPENDENCE, UNCOMPLICATED 07/17/2019 LOPEZ, LI Montes APRN Ot F31 .9 BIPOLAR DISORDER, UNSPECIFIED 07/17/2019 LOPEZ, LI Montes FORMULA MIXER Ot F41 .9 ANXIETY DISORDER, UNSPECIFIED 07/17/2019 LOPEZ, LI Montes FORMULA MIXER Ot G89.29 OTHER CHRONIC PAIN 07/17/2019 LOPEZ, LI Montes FORMULA MIXER Ot M54 .9 DORSALGIA, UNSPECIFIED 07/17/2019 LI LOPEZ APRN Ot Z77.22 CNTCT W AND EXPSR TO ENVIRON TOBACCO SMO 07/17/2019 LI LOPEZ APRN Ot Z79.82 [facility] (CURRENT) USE OF ASPIRIN 07/17/2019 LI LOPEZ APRN Ot Z80 .8 FAMILY HISTORY OF MALIGNANT NEOPLASM OF Procedures Code Description Performed By Per formed On Psychiatr [facility] 10/09/2011 38578 UA W / CULTURE IF INDICATED 02/19/2012 31130 ROUT INE VENIPUNCTURE 02/22/2012 21363 CBC 02/22/2012 92597 LIPI D PANEL 02/22/2012 39793 CMP 02/22/2012 [id number] GF R CALC (RESULT ONLY) 02/22/2012 69966 TSH 02/23/2012 17117 MAMM OGRAM, SCREENING 02/23/2012 75874 HEMOCCULT 02/23/2012 33038 PAP SMEAR 02/23/2012 Q0091 PAP SMEAR OBTAIN SMEAR 02/23/2012 22044 URIN E DRUG SCREEN (IN-HOUSE) 01/18/2013 12907 MAMM OGRAM, SCREENING 01/19/2013 URINEDRUG URINE DRUG SCREEN (CON'F) 01/19/2013 56808 BONE DENSITY, DEXA 04/17/2013 GENERAL S [place], Ken 04/17/2013 95297 BONE MINERAL DENSITY, HEEL US (IN HOUSE) 04/17/2013 76099 XRAY CERVICAL SPINE, 2 OR 3 VIEWS 06/02/2013 68250 ROUT INE VENIPUNCTURE 02/16/2014 61158 MAMM OGRAM, SCREENING 02/16/2014 [id number] GF R CALC (RESULT ONLY) 02/16/2014 27835 CMP 02/16/2014 Results Test Result Range Complete [...] 7-25 CREATININE 0.52 mg/dL 0.50-0.99 eGFR NON-AFR. [place] 101 mL/min/1.73m2 > OR = 60 eGFR [...] NEGATIVE NEGATIVE Tricyclic Antidepressant NEGATIVE NEGAT [facility] - 06/24/19 17:00 Mycoplasma Positive Negative Rapid Drug Screen + ETOH,Medical - 06/30 16:34 Amphetamine NEGATIVE NEGATIVE Barbiturates NEGATIVE NEGATIVE Benzodiazepines NEGATIVE NEGATIVE Cocaine NEGATIVE NEGATIVE Ethanol, Urine 334.30 mg/dL 20.00-80.00 Marijuana NEGATIVE NEGATIVE Methylenedioxymethamphetamine NEGATIVE NEGATIVE Opiates NEGATIVE NEGATIVE Oxycodone NEGATIVE NEGATIVE Phencyclidine NEGATIVE NEGATIVE Propoxyphene NEGATIVE NEGATIVE Tricyclic Antidepressant NEGATIVE NEGAT [facility] Complete blood count (CBC) with automate d white blood cell (WBC) differential - 07/14/19 17:50 Blood leukocytes automated count (number/volume) 9.2 10*3/uL 4.3-11.0 Blood erythrocytes automated count (number/volume) 4.47 10*6/uL 4.35-5.85 Venous blood hemoglobin measurement (mass/volume) 15.4 g/dL 11.5-16.0 Blood hematocrit (volume fraction) 44 % 35-52 Automated erythrocyte mean corpuscular volume 99 [ foz_us] 80-99 Automated erythrocyte mean corpuscular h emoglobin (mass per erythrocyte) 35 pg 25-34 Automated erythrocyte mean corpuscular h emoglobin concentration measurement (mass/volume) 35 g/dL 32-36 Automated erythrocyte distribution width ratio 12. 6 % 10.0- 14.5 Automated blood platelet count (count/volume) 175 10*3/uL 130-400 Automated blood platelet mean volume measurement 10.4 [foz_us] 7.4-10.4 Automated blood neutrophils/100 leukocytes 55 % 42-75 Automated blood lymphocytes/100 leukocytes 30 % 12-44 Blood monocytes/100 leukocytes 14 % 0-12 Automated blood eosinophils/100 leukocytes 1 % 0-10 Automated blood basophils/100 leukocytes 1 % 0-10 Blood neutrophils automated count (number/volume) 5.0 10*3 1.8-7.8 Blood lymphocytes automated count (number/volume) 2.7 10*3 1.0-4.0 Blood monocytes automated count (number/volume) 1. 3 10*3 0.0-1.0 Automated eosinophil count 0.1 10*3/uL 0 .0-0.3 Automated blood basophil count (count/volume) 0.1 10*3/uL 0.0-0.1 Comprehensive metabolic panel - 07/14/19 17:50 Serum or plasma sodium measurement (moles/volume) 135 mmol/L 135-145 Serum or plasma potassium measurement (moles/volume) 4.1 mmol/L 3.6-5.0 Serum or plasma chloride measurement (moles/volume) 96 mmol/L 98-107 Carbon dioxide 21 mmol/L 21-32 Serum or plasma anion gap determination (moles/volume) 18 mmol/L 5-14 Serum or plasma urea nitrogen measurement (mass/volume ) 6 mg/dL 7-18 Serum or plasma creatinine measurement (mass/volume) 0.64 mg/dL 0.60-1.30 Serum or plasma urea nitrogen/creatinine mass ratio 9 NRG Serum or plasma creatinine measurement w ith calculation of estimated glomerular filtration rate > NRG Serum or plasma glucose measurement (mass/volume) 93 mg/dL 70-105 Serum or plasma calcium measurement (mass/volume) 9.3 mg/dL 8.5-10.1 Serum or plasma total bilirubin measurement (mass/volu me) 0.5 mg/dL 0.1-1.0 Serum or plasma alkaline phosphatase omari surement (enzymatic activity/volume) 117 U/L 40-136 Serum or plasma aspartate aminotransfera se measurement (enzymatic activity/volume) 81 U/L 5-34 Serum or plasma alanine aminotransferase measurement (enzymatic activity/volume) 45 U/L 0-55 Serum or plasma protein measurement (mass/volume) 7.8 g/dL 6.4-8.2 Serum or plasma albumin measurement (mass/volume) 4.7 g/dL 3.2-4.5 PT panel in platelet poor plasma by coag ulation assay - 07/14/19 17:50 Prothrombin time (PT) in platelet poor plasma by coagu lation assay 11.7 s 12.2-14.7 INR in platelet poor plasma or blood by coagulation as say 0.8 0.8-1.4 PT/INR - 07/18/19 04:25 INR 0.9 NRG PT 9.4 sec 9.0-11.5 Complete urinalysis with reflex to cultu re - 07/31/19 13:31 Urine color determination YELLOW NRG Urine clarity determination CLEAR NR G Urine pH measurement by test strip 5.5 5-9 Specific gravity of urine by test strip <= 1.016-1.022 Urine protein assay by test strip, semi-quantitative NEGATIVE NEGATIVE Urine glucose detection by automated test strip NE GATIVE NEGATIVE Erythrocytes detection in urine sediment by light micr oscopy TRACE-L NEGATIVE Urine ketones detection by automated test strip NE GATIVE NEGATIVE Urine nitrite detection by test strip NEGATIVE NEGATIVE Urine total bilirubin detection by test strip NEGA TIVE NEGATIVE Urine urobilinogen measurement by automated test strip (mass/volume) 0.2 mg/dL < = 1.0 Urine leukocyte esterase detection by dipstick TRA CE NEGATIVE Automated urine sediment erythrocyte cou nt by microscopy (number/high power field) RARE NRG Automated urine sediment leukocyte count by microscopy (number/high power field) RARE NRG Bacteria detection in urine sediment by light microsco py TRACE NRG Squamous epithelial cells detection in u rine sediment by light microscopy 0-2 NRG Crystals detection in urine sediment by light microsco py NONE NRG Casts detection in urine sediment by light microscopy NONE NRG Mucus detection in urine sediment by light microscopy NEGATIVE NRG Complete urinalysis with reflex to culture YES NRG Yeast detection in urine sediment by light microscopy RARE NRG Urine drug screening test - 07/31/19 13: 31 Urine phencyclidine detection by screening method NEGATIVE [...] d white blood cell (WBC) differential - 07/31/19 13:38 Blood leukocytes automated count (number/volume) 8.7 10*3/uL 4.3-11.0 Blood erythrocytes automated count (number/volume) 4.28 10*6/uL 4.35-5.85 Venous blood hemoglobin measurement (mass/volume) 14.8 g/dL 11.5-16.0 Blood hematocrit (volume fraction) 43 % 35-52 Automated erythrocyte mean corpuscular volume 100 [foz_us] 80-99 Automated erythrocyte mean corpuscular h emoglobin (mass per erythrocyte) 35 pg 25-34 Automated erythrocyte mean corpuscular h emoglobin concentration measurement (mass/volume) 35 g/dL 32-36 Automated erythrocyte distribution width ratio 12. 3 % 10.0- 14.5 Automated blood platelet count (count/volume) 63 1 0*3/uL 130-400 Automated blood platelet mean volume measurement 13.1 [foz_us] 7.4-10.4 Automated blood neutrophils/100 leukocytes 64 % 42-75 Automated blood lymphocytes/100 leukocytes 22 % 12-44 Blood monocytes/100 leukocytes 11 % 0-12 Automated blood eosinophils/100 leukocytes 2 % 0-10 Automated blood basophils/100 leukocytes 1 % 0-10 Blood neutrophils automated count (number/volume) 5.6 10*3 1.8-7.8 Blood lymphocytes automated count (number/volume) 1.9 10*3 1.0-4.0 Blood monocytes automated count (number/volume) 0. 9 10*3 0.0-1.0 Automated eosinophil count 0.2 10*3/uL 0 .0-0.3 Automated blood basophil count (count/volume) 0.1 10*3/uL 0.0-0.1 Comprehensive metabolic panel - 07/31/19 13:38 Serum or plasma sodium measurement (moles/volume) 130 mmol/L 135-145 Serum or plasma potassium measurement (moles/volume) 4.1 mmol/L 3.6-5.0 Serum or plasma chloride measurement (moles/volume) 96 mmol/L 98-107 Carbon dioxide 18 mmol/L 21-32 Serum or plasma anion gap determination (moles/volume) 16 mmol/L 5-14 Serum or plasma urea nitrogen measurement (mass/volume ) 5 mg/dL 7-18 Serum or plasma creatinine measurement (mass/volume) 0.57 mg/dL 0.60-1.30 Serum or plasma urea nitrogen/creatinine mass ratio 9 NRG Serum or plasma creatinine measurement w ith calculation of estimated glomerular filtration rate > NRG Serum or plasma glucose measurement (mass/volume) 88 mg/dL 70-105 Serum or plasma calcium measurement (mass/volume) 8.7 mg/dL 8.5-10.1 Serum or plasma total bilirubin measurement (mass/volu me) 0.7 mg/dL 0.1-1.0 Serum or plasma alkaline phosphatase omari surement (enzymatic activity/volume) 99 U/L 40-136 Serum or plasma aspartate aminotransfera se measurement (enzymatic activity/volume) 212 U/L 5-34 Serum or plasma alanine aminotransferase measurement (enzymatic activity/volume) 73 U/L 0-55 Serum or plasma protein measurement (mass/volume) 7.3 g/dL 6.4-8.2 Serum or plasma albumin measurement (mass/volume) 4.3 g/dL 3.2-4.5 CALCIUM CORRECTED 8.5 mg/dL 8.5-10.1 Serum or plasma salicylates measurement (mass/volume) - 07/31/19 13:38 Serum or plasma salicylates measurement (mass/volume) < mg/dL 5.0-20.0 Serum or plasma acetaminophen measuremen t (mass/volume) - 07/31/19 13:38 Serum or plasma acetaminophen measurement (mass/volume ) < ug/mL 10-30 Serum or plasma ethanol measurement (mas s/volume) - 07/31/19 13:38 Serum or plasma ethanol measurement (mass/volume) 332 mg/dL <10 Encounters ACCT No. Visit Date/Time Discharge Status Pt. Type Provider Facility Loc./Unit Complaint [id number] 07/01/2019 15:46:00 07/01/2019 17:20 :00 DIS Outpatient Jakob [facility] [id number] 06/24/2019 16:24:00 06/24/2019 18:30 :00 DIS Outpatient SHAKEELZHOU LINN APRN [facility] ER [id number] 01/02/2019 12:21:00 01/02/2019 14:20: 00 [id number] 12/11/2018 14:55:00 12/11/2018 23:59: 59 CLS Outpatient ZHOU BECKFORD APRN [facility] ER [id number] 08/02/2018 18:29:00 08/02/2018 20:30: 00 [id number] 10/03/2017 16:17:00 10/03/2017 19:00: 00 DIS Outpatient ALICIA YAP [facility] ER [id number] 08/02/2018 18:41:14 Document Registration [id number] 07/14/2019 17:49:00 18:09:00 DIS Emergency LI LOPEZ APRN [facility] ER PSYCH EVAL [id number] 07/03/2019 14:12:00 14:21:00 DIS Emergency LI LOPEZ APRN [facility] ER INTOXICATED [id number] 07/02/2019 15:32:00 15:50:00 DIS Emergency LI LOPEZ APRN [facility] ER ETOH [id number] 12/22/2018 15:48:00 17:20:00 DIS Emergency JOHN PINEDO, TANNA Montes [facility] ER ETOH [id number] 12/16/2018 09:07:00 23:59:59 CLS Preadmit DEVORA PINEDO, HUMA Sparks [facility] RAD SCREENING [id number] 10/12/2018 13:23:00 13:30:00 DIS Emergency RIK PINEDO, MALIA Atkins [facility] ER ILL [id number] 10/11/2018 15:18:00 15:32:00 DIS Emergency LI LOPEZ FORMULA MIXER [facility] ER ETOH [id number] 09/09/2018 19:00:00 20:45:00 DIS Emergency TANNA LOPEZ MD [facility] ER FALL [id number] 07/13/2018 17:16:00 19:38:00 DIS Emergency BERNOT, JENIFER [facility] ER R ANKLE PAIN [id number] 06/30/2018 19:44:00 20:07:00 DIS Emergency LI LOPEZ FORMULA MIXER [facility] ER ETOH [id number] 06/30/2018 18:56:00 19:02:00 DIS Emergency AMBER MCKEON DO a [facility] ER RESPIRATORY ISSUES [id number] 06/29/2018 20:32:00 23:16:00 DIS Emergency BERNOT, JENIFER [facility] ER FALL [id number] 10/12/2017 15:37:00 018 16:02:00 DIS Emergency BERNOT, JENIFER [facility] ER ETOH [id number] 10/10/2017 12:17:00 018 14:11:00 DIS Emergency BERNOT, JENIFER [facility] ER SOB/ETOH [id number] 08/19/2017 18:05:00 018 18:55:00 DIS Emergency LI LOPEZ FORMULA MIXER [facility] ER SOB/ETOH DETOX [id number] 06/08/2017 20:29:00 018 21:10:00 DIS Emergency MELISSA GARCIA [facility] ER SOA [id number] 05/29/2017 16:55:00 018 18:10:00 DIS Emergency SHAHANA ROSENTHAL [facility] ER SOA [id number] 05/21/2017 21:00:00 018 22:16:00 DIS Emergency LI LOPEZ FORMULA MIXER [facility] ER SOB [id number] 05/19/2017 17:05:00 018 17:31:00 DIS Emergency HONEY GOLDBERG MD [facility] ER SOA [id number] 05/11/2017 21:12:00 018 21:57:00 DIS Emergency MELISSA GARCIA [facility] ER SOA [id number] 04/06/2017 18:38:00 018 20:05:00 DIS Emergency MELISSA GARCIA [facility] ER ANKLE PAIN [id number] 04/06/2017 12:39:00 018 15:08:00 DIS Emergency MALIA JOLLY MD [facility] ER DRUG/ETOH ABUSE [id number] 07/11/2016 16:09:00 017 19:12:00 DIS Emergency MELISSA GARCIA [facility] ER ALCOHOL INTOX [id number] 03/03/2016 15:38:00 017 16:45:00 DIS Emergency LI LOPEZ FORMULA MIXER [facility] ER R ANKLE PAIN [id number] 05/02/2015 16:39:00 016 13:14:00 DIS Inpatient FINESSE MOY MD [facility] 4TH RLL PNUEMONIA [id number] 11/19/2013 22:15:00 014 10:50:00 DIS Inpatient DANICA LERNER MD [facility] ICU ETOH INTOXICATION, AMS [id number] 10/02/2013 15:43:00 014 14:03:00 DIS Inpatient BERRY BALDERRAMA DO, V [facility] ICU SUICIDAL/HOMICIDAL IDEA TION, ETOH INTOXICATION [id number] 04/27/2013 09:25:00 014 23:59:59 CLS Outpatient APRIL QUINTANILLA FORMULA MIXER [facility] RAD OSTEOPENIA [id number] 03/06/2013 10:54:00 014 23:59:59 CLS Outpatient HUMA LOZOYA MD [facility] RAD SCREENING [id number] 11/14/2012 15:16:00 23:59:59 CLS Outpatient [id number] 09/19/2012 13:31:00 23:59:59 CLS Outpatient [id number] 08/22/2012 15:17:00 23:59:59 CLS Outpatient [id number] 08/04/2012 14:36:00 23:59:59 CLS Outpatient [id number] 07/20/2012 12:07:00 13:45:00 DIS Emergency FRANCISCO ACEVEDO DO [facility] ER FELL INJ L ARM [id number] 07/31/2019 14:46:[address] Inpatient DANICA LERNER MD [facility] 4TH INTOXICATION;SUICIDAL [id number] 09/13/2017 18:51:00 Document Registration [id number] 09/13/2017 11:13:00 Document Registration [id number] 03/16/2014 10:56:00 Document Registration [id number] 03/04/2012 10:23:00 Document Registration [email or web address] 01/13/2013 16:48:57 ACT Document Registration [id number] 02/16/2014 11:31:00 02/16/2014 23:59: 59 CLS Outpatient HUMA LOZOYA MD [id number] 12/02/2013 06:43:00 12/02/2013 23:59: 59 CLS Outpatient HUMA LOZOYA MD [id number] 11/27/2013 11:19:00 11/27/2013 23:59: 59 CLS Outpatient HUMA LOZOYA MD [id number] 10/30/2013 12:59:00 10/30/2013 23:59: 59 CLS Outpatient ADDIS SPRINGER APRN [id number] 09/18/2013 13:40:00 09/18/2013 23:59: 59 CLS Outpatient HUMA LOZOYA MD [id number] 07/25/2013 16:53:00 07/25/2013 23:59: 59 CLS Outpatient HUMA LOZOYA MD [id number] 06/02/2013 11:36:00 06/02/2013 23:59: 59 CLS Outpatient BERRY BALDERRAMA DO Benny [id number] 06/02/2013 11:36:00 06/02/2013 23:59: 59 CLS Outpatient BERRY BALDERRAMA DO Benny [id number] 04/17/2013 10:34:00 04/17/2013 23:59: 59 CLS Outpatient APRIL QUINTANILLA APRN [id number] 04/17/2013 10:34:00 04/17/2013 23:59: 59 CLS Outpatient APRIL QUINTANILLA APRN [id number] 03/02/2013 13:45:00 03/02/2013 23:59: 59 CLS Outpatient HUMA LOZOYA MD [id number] 03/02/2013 13:45:00 03/02/2013 23:59: 59 CLS Outpatient HUMA LOZOYA MD [id number] 01/18/2013 14:08:00 01/18/2013 23:59: 59 CLS Outpatient HUMA LOZOYA MD [id number] 12/19/2012 11:31:00 12/19/2012 23:59: 59 CLS Outpatient HUMA LOZOYA MD [id number] 09/29/2012 16:24:00 09/29/2012 23:59: 59 CLS Outpatient HUMA LOZOYA MD [id number] 03/28/2012 11:42:00 03/28/2012 23:59: 59 CLS Outpatient HUMA LOZOYA MD [id number] 02/22/2012 09:43:00 02/22/2012 23:59: 59 CLS Outpatient BERRY BALDERRAMA DO [id number] 02/19/2012 13:27:00 02/19/2012 23:59: 59 CLS Outpatient BERRY BALDERRAMA DO [id number] 10/02/2011 09:36:00 10/02/2011 23:59: 59 [place] [id number] 10/02/2011 09:36:00 10/02/2011 23:59:5 9 CLS Outpatient [id number] 06/24/2012 13:29:00 Document Registration [id number] 07/17/2019 13:40:00 07/17/2019 23:59: 59 CLS Outpatient HUMA LOZOYA MD [facility] [id number] 07/17/2019 13:40:00 Document Registration [id number] 12/15/2018 10:40:00 Document Registration
--- OUTSIDE RECORDS SUMMARY | 2019-07-31 17:32 | XMS REPORT ---
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[place] [facility] [facility] Address [address] [address] Care Team Providers Care Campaign Associate Name Role Phone HUMA LOZOYA Unavailable DEVORA, HUMA Unavailable DEVORA, HUMA Unavailable HUMA LOZOYA Unavailable DEVORA, HUMA Unavailable HUMA LOZOYA Unavailable DEVORA, HUMA Unavailable AMBER MCKEON DO Unavailable Unavailable LI LOPEZ APRN Unavailable Unavailable HUMA LOZOYA Unavailable APRIL QUINTANILLA FLY MAKER Unavailable Unavailable BALDERRAMA DO, BERRY K Unavailable Unavailable BALDERRAMA DO, BERRY K Unavailable Unavailable FRANCISCO ACEVEDO DO Unavailable Unavailable YANN PINEDO, DANICA Tanner Unavailable Unavailable YANN PNIEDO, DANICA Tanner Unavailable Unavailable LI LOPEZ APRN [...] Unavailable JENIFER MULLINS Unavailable Unavailable LI LOPEZ FLY MAKER Unavailable Unavailable MARISEL CRUZ Unavailable Unavailable CULLEN [...] information APRIL QUINTANILLA Not Available sources.) Allergies (11781) no information Unclassified NO KNOWN DRUG UNKNOWN [facility] (4 sources.) ALLERGIES [address] ([address]) Medications Medication Ingredient Drug Dose Dates Status [...] mental 07-02-2019 - Episodic Active FINESSE COCHRAN [facility] Via codes; status, , MD Ferrer unclassified unspecified Hospital - (11 sources.) [place] ([address]) External cause Blood alcohol 06-30-2019 - Episodic Active JULIEN ALEXANDER [facility] codes: level of 240 [facility] Unspecified mg/100 ml or [place] (24 sources.) [facility] ([address]574) Translations: [ OTHER EXTERNAL CAUSE STATUS, BLOOD ALCOHOL LEVEL OF 120-199 MG/100 ML] Chronic Chronic 07-02-2019 - Chronic Active ESTELLA MARIE Via obstructive obstructive [facility] pulmonary pulmonary [facility] - disease and disease, [place] bronchiectasis unspecified (46655) (24 sources.) Coma; stupor; Coma scale, 07-02-2019 - Episodic Active JENIFER MULLINS [facility] Via and brain best verbal [place] damage (20 response, Hospital - sources.) oriented, at [place] arrival to (46558) emergency department Translations: [ COMA SCALE, BEST MOTOR RESPONSE, OBEYS C, COMA SCALE, EYES OPEN, SPONTANEOUS, EMR] Residual Contact with 07-02-2019 - Episodic Active ESTELLA MARIE Via codes; and DEVORAH Ferrer unclassified (suspected) Hospital - (23 sources.) exposure to [place] environmental (32523) tobacco smoke (acute) (chronic) Superficial Contusion of 07-02-2019 - Episodic Active JENIFER B DAVIDOT [facility] Via injury; other part of [place] contusion (16 head, initial Hospital - sources.) encounter [place] Translations: (72788) [ Contusion of face] Other Effusion, left 07-02-2019 - Episodic Active MALIA [facility] Via non-traumatic ankle [place] JOLLY joint Hospital - disorders (14 [place] sources.) (36593) External cause Exposure to 07-02-2019 - Episodic Active LI LOPEZ [facility] Via codes: other FLY MAKERFlores Ferrer Natural/enviro specified Hospital - nment (18 factors, [place] sources.) initial (63657) encounter Residual Family history 07-02-2019 - Episodic Active LI CARRILLO [facility] Via codes; of malignant FLY MAKER [place] unclassified neoplasm of Hospital - (24 sources.) other organs [place] or systems (56308) Translations: [ CNTCT W AND EXPSR TO ENVIRON TOBACCO SMO] Residual Illness, 07-02-2019 - Episodic Active MALIA [facility] V ia codes; unspecified [place] JOLLY MD Hospital - (20 sources.) [place] ([address]) 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 LI LOPEZ [facility] Via aftercare (24 (current) use FLY MAKER [place] sources.) of aspirin Hospital - [place] (66695) Other lower Lung mass Episodic Active HUMA Hernandez ion Via respiratory 40431 [place] disease (4 Hospital sources.) (03614) Bacterial Mycoplasma 06-30-2019 - Episodic Active ZHOU LEOS [facility] infection; infection, [facility] unspecified unspecified [place] site (12 site County ([address]) sources.) Translations: [ MYCOPLASMA INFECTION IN CONDITIONS CLASSIFIED ELSEWHERE AND OF UNSPECIFIED SITE] Other nervous Other chronic Chronic Active BERRY BALDERRAMA , N ot Available system pain DO (01688) disorders (5 sources.) Attention-defi Other conduct Chronic Active BERRY BALDERRAMA , Not Available 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 disorders (5 sources.) External cause Other fall on 07-02-2019 - Episodic Active MARINA IS BERNOT [facility] Via codes: Fall same level, [place] (20 sources.) initial Hospital - encounter [place] Translations: (21657) [ FALL (ON)(FROM) SIDEWALK CURB, INITIAL E, FALL SAME LEV FROM SLIP/TRIP W STRIKE AG, UNSPECIFIED FALL, INITIAL ENCOUNTER] Other Other long 07-02-2019 - Episodic Active LI LOPEZ [facility] Via aftercare (20 term (current) FLY MAKER [place] sources.) drug therapy Hospital - [place] (25496) Substance-rela Other 07-02-2019 - Episodic Active FINESSE COCHRAN [facility] Via arlin disorders psychoactive , MD Ferrer (27 sources.) substance use, Hospital - unspecified, [place] uncomplicated (84715) Translations: [ CANNABIS USE, UNSPECIFIED, UNCOMPLICATED] Other Pain in 07-02-2019 - Episodic Active HONEY [facility] V ia connective unspecified MD [place] GOLDBERG tissue disease limb Hospital - (10 sources.) [place] (05669) Residual Patient's 07-02-2019 - Episodic Active FINESSE DESAI [facility] Via codes; other , MD Ferrer unclassified noncompliance Hospital - (14 sources.) with [place] medication (77504) regimen Translations: [ SLEEP APNEA, UNSPECIFIED, ALTERED MENTAL STATUS, UNSPECIFIED] Other injuries Personal 07-02-2019 - Episodic Active SHAHANA ROSENTHAL [facility] Via and conditions history of MASTER COOK [place] due to (healed) Hospital - external traumatic [place] causes (10 fracture (56928) sources.) Genitourinary Personal 07-02-2019 - Episodic Active LI Escoto [facility] Via symptoms and history of FLY MAKER [place] ill-defined other diseases Hospital - conditions (26 of urinary [place] sources.) system (64512) Suicide and Personal 07-02-2019 - Episodic Active LI LOPEZ [facility] Via intentional history of FLY MAKER [place] self-inflicted self-harm Hospital - injury (24 Translations: [place] sources.) [ SUICIDAL (60826) IDEATION] Pneumonia Pneumonia, 07-02-2019 - Episodic Active FINESSE Atkins [facility] Via (except that unspecified , MD Ferrer caused by organism Hospital - tuberculosis [place] or sexually (36052) transmitted disease) (14 sources.) Other lower Respiratory 07-02-2019 - Episodic Active AMBER MCKEON DO [facility] Via respiratory disorder, [place] disease (20 unspecified Hospital - sources.) [place] (35071) Septicemia Sepsis, 07-02-2019 - Episodic Active FINESSE DESAI [facility] Via (except in unspecified , MD Ferrer labor) (9 organism Hospital - sources.) [place] (29754) Other lower Shortness of 07-02-2019 - Episodic Active AMBER BENY O , DO [facility] Via respiratory breath [place] disease (25 Hospital - sources.) [place] (65259) Other lower Shortness of Episodic Active no name Hospita l respiratory breath [facility] disease (5 [place] sources.) [facility] (96677) External cause Sidewalk as 07-02-2019 - Episodic Active LI LOPEZ [facility] Via codes: Place the place of [facility] of occurrence occurrence of Hospital - (19 sources.) the external [place] cause (02305) Translations: [ UNSP PLACE IN UNSP NON-INSTITUT (PRIVATE] Residual Sleep apnea, 07-02-2019 - Chronic Active LI LOPEZ [facility] Via codes; unspecified FLY MAKER [place] unclassified Hospital - (21 sources.) [place] (49435) NEGATED Sleep no information Active no name no infor mation no disorder, information (3 unspecified sources.) Translations: [ SLEEP APNEA, UNSPECIFIED, CNTCT W AND EXPSR TO ENVIRON TOBACCO SMO, FAMILY HISTORY OF MALIGNANT NEOPLASM OF ] Residual Sleep 07-02-2019 - Episodic Active SHAHANA ROSENTHAL [facility] Via codes; disorder, MASTER COOK [place] unclassified unspecified Hospital - (9 sources.) [place] (33261) Other lower Solitary 07-02-2019 - Episodic Active TANNA JOHN [facility] Via respiratory pulmonary [place] disease (10 nodule Hospital - sources.) [place] (72082) Residual Tobacco use 06-30-2019 - Episodic Active ZHOU GOVEA R Hospital codes; [facility] unclassified [place] (31 sources.) [facility] (95960) Other injuries Unspecified 07-02-2019 - Episodic Active JENIFER MULLINS [facility] Via and conditions injury of [place] due to face, initial Hospital - external encounter [place] causes (12 (93403) sources.) Past or Other Problems Problem Normalized Date Last Normalized Normalized Provider Fa cility Classification Problem(s) Recorded Problem Problem Sta tus Duration External cause Accidental no information Completed FRANCISCO N ot Available codes: Fall fall on or CUR[place] , DO (85831) (20 sources.) from other stairs or steps Translations: [ UNSPECIFIED FALL, INITIAL ENCOUNTER, FALL SAME LEV FROM SLIP/TRIP W STRIKE AG, FALL (ON)(FROM) SIDEWALK CURB, INITIAL E, Fall on same level, Fall] Residual Altered mental Episodic Completed DANICA LERNER Not Available codes; status , (13506) unclassified (5 sources.) Fracture of Closed Episodic Completed FRANCISCO Not Availab le upper limb (5 fracture of CURTIS , DO (55939) sources.) greater tuberosity of humerus Coma; stupor; Coma scale, no information no information JENIFER BERNOT [facility] Via and brain best verbal [place] damage (6 response, Hospital - sources.) oriented, at [place] arrival to (77675) emergency department Translations: [ COMA SCALE, BEST MOTOR RESPONSE, OBEYS C, COMA SCALE, EYES OPEN, SPONTANEOUS, EMR] Other bone Disorder of Episodic Completed APRIL DWIGHT Not Av ailable disease and bone and (92142) musculoskeleta cartilage, l deformities unspecified (5 sources.) External cause Exposure to no information no information LI LOPEZ Not Available codes: other (71194) Natural/enviro specified nment (11 factors, sources.) initial encounter Headache; Headache Episodic Completed BERRY BALDERRAMA , Not Availa ble including DO (86156) migraine (5 sources.) External cause Home accidents no information no information LAW RENCE Not Available codes: Place Translations: DO CURT[place] (05980) of occurrence [ [facility]ACE (12 sources.) IN [facility] NON-INSTITUT (PRIVATE, SIDEWALK THE PLACE OF OCCURRENCE OF T] Impulse Homicidal Episodic Completed BERRY BALDERRAMA , Not Avail able control ideation DO (45065) disorders NEC (5 sources.) External cause Other external no information no information LAW RENCE Not Available codes: cause status DO CURT[place] (83760) Unspecified Translations: (20 sources.) [ OTHER EXTERNAL CAUSE STATUS, BLOOD ALCOHOL LEVEL OF 120-199 MG/100 ML, BLOOD ALCOHOL LEVEL OF 240 MG/100 ML OR MORE] Septicemia Sepsis, no information no information FINESSE DESAI Not Available (except in unspecified , (83360) labor) (5 organism sources.) Other injuries Shoulder and Episodic Completed FRANCISCO Not Available and conditions upper arm DO CURTIS (45961) due to injury external causes (5 sources.) Residual Sleep apnea, no information no information FINESSE ZELAYA Not Available codes; unspecified MD (05807) unclassified Translations: (20 sources.) [ FAMILY HISTORY OF MALIGNANT NEOPLASM OF , CNTCT W AND EXPSR TO ENVIRON TOBACCO SMO] Procedures Procedure Normalized Procedure Procedure Result Performer Facility Date 02-16-2014 Collection venous no information no name [facility] blood venipuncture [facility] (45625) 02-16-2014 Comprehensive no information no name [facility] metabolic panel [facility] (96484) 01-18-2013 Drug screen, no information no name [facility] qualitate/multi [facility] (44400) 04-17-2013 Dxa bone density study no information no name [facility] 1/> sites axial skel [facility] (65565) 03-19-2014 Mammogram, screening no information no name [facility] (97611) 06-02-2013 Radex spine cervical 2 no information no name [facility] or 3 views [facility] (88332) 04-17-2013 Us bone density nasim & no information no name [facility] interp periph any [facility] (98295) Immunizations Normalized Immunization Date Notes Care Provider Facili ty Immunization influenza, 02-16-2014 no information HUMA LOZOYA [address] [facility] injectable, [place], [place] ([address]56) contains preservative influenza, seasonal, 12-15-2018 no information no name Co [facility] injectable [facility] (82614) pneumococcal 07-17-2019 no information no name [facility] polysaccharide [facility] vaccine, 23 valent - [facility] (35490) no information 12-22-2018 no information HUMA LOZOYA [address] [place] [address] [facility] (81013) Results Test Name Value Interpretation Reference Range Date Time Fa cility (Normalized) (Normalized) (Medline Reference) laboratory on 2019-07-14 Albumin 4.7 g/dL (H) 3.4 - 5.4 g/dL 07-14-2019 PENDING LOCATION [Mass/Vol] 13:50-0400 [facility] (26305) ALP [Catalytic 117 U/L (NEG) 44 - 147 U/L 07-14-2019 PEND ING LOCATION activity/Vol] 13:50-0400 [facility] (53333) ALT [Catalytic 45 U/L (NEG) 4 - 40 U/L 07-14-2019 PENDIN G LOCATION activity/Vol] 13:50-0400 [facility] (56830) Anion gap 18 mmol/L (H) 3 - 11 mmol/L 07-14-2019 PENDING LOCATION [Moles/Vol] 13:50-0400 [facility] (93858) AST [Catalytic 81 U/L (H) 10 - 34 U/L 07-14-2019 PENDI NG LOCATION activity/Vol] 13:50-0400 [facility] (75321) Basophils (Bld) 0.1 10*3/uL (NEG) 0 - 0.3 10*3/uL 07-14-2019 PENDING LOCATION [#/Vol] 13:50-0400 [facility] (94949) Basophils/100 1 % (NEG) 0.5 - 1 % 07-14-2019 PENDING LOCATION WBC (Bld) 13:50-0400 [facility] (31371) Bilirubin 0.5 mg/dL (NEG) 0.1 - 1.2 mg/dL 07-14-2019 PENDIN G LOCATION [Mass/Vol] 13:50-0400 [facility] (05188) Calcium 9.3 mg/dL (NEG) 8.5 - 10.2 mg/dL 07-14-2019 PENDI NG LOCATION [Mass/Vol] 13:50-0400 [facility] (02438) Chloride 96 mmol/L (L) 95 - 106 mmol/L 07-14-2019 PENDIN G LOCATION [Moles/Vol] 13:50-0400 [facility] (67337) CO2 [Moles/Vol] 21 mmol/L (NEG) 23 - 29 mmol/L 2020 P ENDING LOCATION 13:50-0400 [facility] (37145) Creatinine 0.64 mg/dL (NEG) 07-14-2019 PENDING LOCATI ON [Mass/Vol] 13:50-0400 [facility] (48347) Creatinine and > (no code) 07-14-2019 PENDING LOC ATION Glomerular 13:50-0400 [facility] (60053) filtration rate.predicted panel - Serum, Plasma or Blood Eosinophils 0.1 10*3/uL (NEG) 0.05 - 0.5 07-14-2019 PENDING LOCATION (Bld) [#/Vol] 10*3/uL 13:50-0400 [facility] (38738) Eosinophils/100 1 % (NEG) 1 - 4 % [facility]14[facility] WBC (Bld[facility] 13:50-0400 [facility] (87092) Erythrocyte 12.6 % (NEG) 11.6 - 14.6 % 07-14-2019 [facility] distribution 13:50-0400 [facility] (07700) width (RBC) [Ratio] Glucose 93 mg/dL (NEG) 60 - 125 mg/dL 07-14-2019 PENDING LOCATION [Mass/Vol] 13:50-0400 [facility] (60107) Hematocrit (Bld) 44 % (NEG) 36.1 - 50.3 % 07-14-2019 P ENDING LOCATION [Volume 13:50-0400 [facility] (80439) fraction] Hemoglobin (Bld) 15.4 g/dL (NEG) 12.1 - 17.2 g/dL 07-14-2019 PENDING LOCATION [Mass/Vol] 13:50-0400 [facility] (14930) INR Coag 0.8 (NEG) 07-14-2019 PENDING LOCATI ON (Platelet poor 13:50-0400 [facility] (90520) plasma or blood) [Relative time] Lymphocytes 2.7 10*3/uL (NEG) 0.9 - 2.9 07-14-2019 PENDING LOCATION (Bld) [#/Vol] 10*3/uL 13:50-0400 [facility] (02735) Lymphocytes/100 30 % (NEG) 20 - 40 % 07-14-2019 [facility] LOC[facility] WBC (Bld) 13:50-0400 [facility] (69396) MCH (RBC) 35 pg (H) 27 - 31 pg 07-14-2019 PENDING LOC ATION [Entitic mass] 13:50-0400 [facility] (54018) MCHC (RBC) 35 g/dL (NEG) 32 - 36 g/dL 07-14-2019 PENDING LOCATION [Mass/Vol] 13:50-0400 [facility] (06175) MCV (RBC) 99 (NEG) 07-14-2019 PENDING LOCATI ON [Entitic vol] 13:50-0400 [facility] (59376) Monocytes (Bld) 1.3 10*3/uL (H) 0.3 - 0.9 07-14-2019 PEND ING LOCATION [#/Vol] 10*3/uL 13:50-0400 [facility] (11916) Monocytes/100 14 % (H) 2 - 8 % 07-14-2019 PENDING LOCATION WBC (Bld) 13:50-0400 [facility] (57510) Neutrophils 5.0 10*3/uL (NEG) 1.7 - 7 10*3/uL 07-14-2019 [facility] LOCATION (Bld) [#/Vol] 13:50-0400 [facility] (98675) Neutrophils/100 55 % (NEG) 40 - 60 % 07-14-2019 PENDIN G LOCATION WBC (Bld) 13:50-0400 [facility] (74580) Platelet mean 10.4 (NEG) 07-14-2019 PENDING LOCA TION volume (Bld) 13:50-0400 [facility] (51288) [Entitic vol] Platelets (Bld) 175 10*3/uL (NEG) 150 - 450 07-14-2019 PEND ING LOCATION [#/Vol] 10*3/uL 13:50-0400 [facility] (55908) Potassium 4.1 mmol/L (NEG) 3.7 - 5.2 mmol/L 07-14-2019 PEND ING LOCATION [Moles/Vol] 13:50-0400 [facility] (62673) Protein 7.8 g/dL (NEG) 6.4 - 8.3 g/dL 07-14-2019 PENDING LOCATION [Mass/Vol] 13:50-0400 [facility] (09299) PT Coag (PPP) 11.7 s (L) 9.4 - 12.5 s 07-14-2019 PENDI NG LOCATION [Time] 13:50-0400 [facility] (14325) RBC (Bld) 4.47 10*6/uL (NEG) 4.2 - 6.1 07-14-2019 PENDING L OCATION [#/Vol] 10*6/uL 13:50-0400 [facility] (82892) Sodium 135 mmol/L (NEG) 135 - 145 mmol/L 07-14-2019 PEND ING LOCATION [Moles/Vol] 13:50-0400 [facility] (02916) Urea nitrogen 6 mg/dL (L) 7 - 20 mg/dL 07-14-2019 PENDI NG LOCATION [Mass/Vol] 13:50-0400 [facility] (96378) Urea 9 mg/mg (no code) 6 - 22 mg/mg 07-14-2019 PENDING L OCATION nitrogen/Creatin 13: S () ine [Mass ratio] WBC (Bld) 9.2 10*3/uL (NEG) 3.5 - 10.5 07-14-2019 PENDING L OCATION [#/Vol] 10*3/uL 13: [facility] () not yet categorized on 2019-07-01 Electrocardiogra Complete (no code) 07-01-2019 Hospital ms recorded 12: [facility] () Urine Volume Urine Volume (no code) 07-01-2019 Hospital Sufficient 12: [facility] (10mL) [facility] () no information Urine Saved if (A) 07-01-2019 Hospital Culture Needed 12: [facility] (48hrs from time [facility] of collection) () laboratory on 2019-07-01 Albumin BCG dye 4.3 (no code) 07-01-2019 Hospital [Mass/Vol] 12: [facility] (72581) ALP [Catalytic 104 U/L (no code) 44 - 147 U/L 07-01-2019 Hosp ital activity/Vol] 12: [facility] (83343) ALT [Catalytic 32 U/L (no code) 4 - 40 U/L 07-01-2019 Hospit al activity/Vol] 12: [facility] (44521) Amphetamines Ql Negative (no code) 07-01-2019 Hospital (U) 12: [facility] (29288) Anion gap 16 mmol/L (H) 3 - 11 mmol/L 07-01-2019 Hospital [Moles/Vol] 12: [facility] (98942) AST [Catalytic 60 U/L (H) 10 - 34 U/L 07-01-2019 Hospi arianna activity/Vol] 12: [facility] (72591) Bacteria LM Ql Trace (A) 07-01-2019 Hospital (Urine sed) 12: [facility] () Barbiturates Negative (no code) 07-01-2019 Hospital Screen Ql (U) 12: [facility] () Basophils (Bld) 0.0 10*3/uL (no code) 0 - 0.3 10*3/uL 07-01-2019 Hospital [#/Vol] 12: [facility] () Basophils/100 0.40 % (no code) 0.5 - 1 % 07-01-2019 Hospital WBC (Bld) 12: [facility] () Benzodiazepine Negative (no code) 07-01-2019 Hospital metabolites 12: [facility] Screen Ql (U) [facility] () Bilirubin 0.3 mg/dL (no code) 0.1 - 1.2 mg/dL 07-01-2019 Hospit al [Mass/Vol] 12: [facility] () Bilirubin N/A (A) 07-01-2019 Hospital Confirm Ql (U) 12: [facility] () Bilirubin Ql (U) Negative (no code) 07-01-2019 Hospital 12: [facility] () Calcium 8.9 mg/dL (no code) 8.5 - 10.2 mg/dL 07-01-2019 Hospi arianna [Mass/Vol] 12: [facility] () Carboxy Negative (no code) 07-01-2019 Hospital tetrahydrocannab 12: [facility] inol Ql (U) [facility] () Chloride 98 mmol/L (no code) 95 - 106 mmol/L 07-01-2019 Hospit al [Moles/Vol] 12: [facility] () Clarity (U) Clear (no code) 07-01-2019 Hospital 12: [facility] () Cocaine Ql (U) Negative (no code) 07-01-2019 Hospital 12: [facility] () Color (U) Yellow (no code) 07-01-2019 Hospital 12: [facility] () Creatinine 0.61 mg/dL (no code) 07-01-2019 Hospital [Mass/Vol] 12: [facility] () Eosinophils 0.1 10*3/uL (no code) 0.05 - 0.5 07-01-2019 Hospita l (Bld) [#/Vol] 10*3/uL 12: [facility] () Eosinophils/100 1.3 % (no code) 1 - 4 % 07-01-2019 Hospit al WBC (Bld) 12: [facility] () Epithelial 5-10/HPF (A) 07-01-2019 Hospital cells.squamous 12: [facility] LM.HPF (Urine [facility] sed) [#/Area] (61925) Erythrocyte 12.0 % (no code) 11.6 - 14.6 % 07-01-2019 Hospit al distribution 12: [facility] width (RBC) [facility] [Ratio] (72231) Ethanol Ql (U) 334.30 (HH) 07-01-2019 Hospital 12: [facility] () GFR/1.73 sq 98 (no code) 90 - 120 07-01-2019 Hospital M.predicted MDRD mL/min/{1.73_m2} mL/min/{1.73_m2} 12: [facility] (S/P/Bld) [Vol [facility] rate/Area] (03341) Globulin (S) 3.1 g/dL (no code) 2 - 3.5 g/dL 07-01-2019 Hospit al [Mass/Vol] 12: [facility] (85676) Glucose 116 mg/dL (H) 60 - 125 mg/dL 07-01-2019 Hospita l [Mass/Vol] 12: [facility] () Glucose Test Negative (no code) 07-01-2019 Hospital strip (U) 12: [facility] [Mass/Vol] [facility] (75784) HCO3 (P) 29 (no code) 07-01-2019 Hospital [Moles/Vol] 12: [facility] () Hematocrit (Bld) 38.2 % (no code) 36.1 - 50.3 % 07-01-2019 H ospital [Volume 12: [facility] fraction] [facility] (93557) Hemoglobin (Bld) 13.4 g/dL (no code) 12.1 - 17.2 g/dL 07-01-2019 Hospital [Mass/Vol] 12: [facility] () Hemoglobin Ql Negative (no code) 07-01-2019 Hospital (U) 12: [facility] () Ketones (U) Negative (no code) 07-01-2019 Hospital [Mass/Vol] 12: [facility] () Leukocyte Negative (no code) 07-01-2019 Hospital esterase Test 12: [facility] strip Ql (U) [facility] () Lymphocytes 2.58 10*3/uL (no code) 0.9 - 2.9 07-01-2019 Hospita l (Bld) [#/Vol] 10*3/uL 12: [facility] () Lymphocytes/100 38.6 % (no code) 20 - 40 % 07-01-2019 Hospit al WBC (Bld) 12: [facility] (02887) MCH (RBC) 36.0 pg (H) 27 - 31 pg 07-01-2019 Hospital [Entitic mass] 12: [facility] (23110) MCHC (RBC) 35.1 g/dL (no code) 32 - 36 g/dL 07-01-2019 Hospital [Mass/Vol] 12: [facility] (10816) MCV (RBC) 102.7 fL (H) 80 - 100 fL 07-01-2019 Hospital [Entitic vol] 12: [facility] (23434) Methylenedioxyme Negative (no code) 07-01-2019 Hospital thamphetamine 12: [facility] Screen Ql (U) [facility] (83292) Monocytes (Bld) 0.9 10*3/uL (no code) 0.3 - 0.9 07-01-2019 Hosp ital [#/Vol] 10*3/uL 12: [facility] (24833) Monocytes/100 13.5 % (H) 2 - 8 % 07-01-2019 Hospital WBC (Bld) 12: [facility] () Neutrophils 3.09 10*3/uL (no code) 1.7 - 7 10*3/uL 07-01-2019 H ospital (Bld) [#/Vol] 12: [facility] () Neutrophils/100 46.2 % (no code) 40 - 60 % 07-01-2019 Hospit al WBC (Bld) 12: [facility] (69152) Nitrite Ql (U) Negative (no code) 07-01-2019 Hospital 12: [facility] (32374) Opiates Screen Negative (no code) 07-01-2019 Hospital Ql (U) 12: [facility] (70326) Osmolality Calc 287 (no code) 07-01-2019 Hospital [Osmolality] 12: [facility] (14195) Oxycodone Ql (U) Negative (no code) 07-01-2019 Hospital 12: [facility] (87921) pH (U) 5.5 [pH] (no code) 4.6 - 8 [pH] 07-01-2019 Hospital 12: [facility] (48987) Phencyclidine Ql Negative (no code) 07-01-2019 Hospital (U) 12: [facility] (14318) Platelet mean 10.1 fL (H) 7.2 - 11.7 fL 07-01-2019 Hosp ital volume (Bld) 12: [facility] [Entitic vol] [facility] ([id number]) Platelets (Bld) 203 10*3/uL (no code) 150 - 450 07-01-2019 Hosp ital [#/Vol] 10*3/uL 12: [facility] () Potassium 4.1 mmol/L (no code) 3.7 - 5.2 mmol/L 07-01-2019 Hosp ital [Moles/Vol] 12: [facility] () Propoxyphene Ql Negative (no code) 07-01-2019 Hospital (U) 12: [facility] () Protein (U) Negative (no code) 0 - 20 mg/dL 07-01-2019 Hospita l [Mass/Vol] 12: [facility] () Protein 7.4 g/dL (no code) 6.4 - 8.3 g/dL 07-01-2019 Hospita l [Mass/Vol] 12: [facility] () RBC (Bld) 3.72 10*6/uL (no code) 4.2 - 6.1 07-01-2019 Hospital [#/Vol] 10*6/uL 12: [facility] () RBC LM.HPF 0-2/HPF (A) 07-01-2019 Hospital (Urine sed) 12: [facility] [#/Area] [facility] () Sodium 139 mmol/L (no code) 135 - 145 mmol/L 07-01-2019 Hosp ital [Moles/Vol] 12: [facility] () Specific gravity <=1.005 (A) 07-01-2019 Hospital (U) [Rel 12: [facility] density] [facility] () Tricyclic Negative (no code) 07-01-2019 Hospital antidepressants 12: [facility] Ql (U) [facility] () Urea nitrogen 9 mg/dL (no code) 7 - 20 mg/dL 07-01-2019 Hospi arianna [Mass/Vol] 12: [facility] ([id number]) Urobilinogen Qn [id number] (A) 07-01-2019 Hospital (U) {Elvia'U}/dL 12: [facility] ([id number]) WBC (Bld) 6.69 10*3/uL (no code) 3.5 - 10.5 07-01-2019 Hospital [#/Vol] 10*3/uL 12: [facility] ([id number]) WBC LM.HPF 0-2/HPF (A) 07-01-2019 Hospital (Urine sed) 12: [facility] [#/Area] [facility] ([id number]) Yeast.budding Ql Yeast Present (no code) 07-01-2019 Hospita l (Urine sed) 12: [facility] ([id number]) laboratory on 2019-06-24 Albumin BCG dye 4.1 (no code) 06-24-2019 Hospital [Mass/Vol] 13: [facility] ([id number]) ALP [Catalytic 112 U/L (no code) 44 - 147 U/L 06-24-2019 Hosp ital activity/Vol] 13: [facility] ([id number]) ALT [Catalytic 33 U/L (no code) 4 - 40 U/L 06-24-2019 Hospit al activity/Vol] 13: [facility] ([id number]) Amphetamines Ql Negative (no code) 06-24-2019 Hospital (U) 12: [facility] (94304) Anion gap 20 mmol/L (H) 3 - 11 mmol/L 06-24-2019 Hospital [Moles/Vol] 13: [facility] ([id number]) AST [Catalytic 58 U/L (H) 10 - 34 U/L 06-24-2019 Hospi arianna activity/Vol] 13: [facility] ([id number]) Barbiturates Negative (no code) 06-24-2019 Hospital Screen Ql (U) 12:0 [facility] ([id number]) Basophils (Bld) 0.0 10*3/uL (no code) 0 - 0.3 10*3/uL 06-24-2019 Hospital [#/Vol] 13:000400 [facility] ([id number]) Basophils/100 0.70 % (no code) 0.5 - 1 % 06-24-2019 Hospital WBC (Bld) 13: [facility] (49658) Benzodiazepine Negative (no code) 06-24-2019 Hospital metabolites 12:39 [facility] Screen Ql (U) [facility] ([id number]) Bilirubin 0.2 mg/dL (no code) 0.1 - 1.2 mg/dL 06-24-2019 Hospit al [Mass/Vol] 13: [facility] () Calcium 8.3 mg/dL (no code) 8.5 - 10.2 mg/dL 06-24-2019 Hospi arianna [Mass/Vol] 13:00 [facility] (60302) Carboxy Negative (no code) 06-24-2019 Hospital tetrahydrocannab 12:39 [facility] inol Ql (U) [facility] ([id number]) Chloride 100 mmol/L (no code) 95 - 106 mmol/L 06-24-2019 Hospi arianna [Moles/Vol] 13:00040 [facility] (93027) Cocaine Ql (U) Negative (no code) 06-24-2019 Hospital 12:39 [facility] (31998) Creatinine 0.59 mg/dL (no code) 06-24-2019 Hospital [Mass/Vol] 13:00040 [facility] (14683) Eosinophils 0.1 10*3/uL (no code) 0.05 - 0.5 06-24-2019 Hospita l (Bld) [#/Vol] 10*3/uL 13:00 [facility] (80445) Eosinophils/100 1.9 % (no code) 1 - 4 % 06-24-2019 Hospit al WBC (Bld) 13:00 [facility] (56081) Erythrocyte 11.7 % (no code) 11.6 - 14.6 % 06-24-2019 Hospit al distribution 13: [facility] width (RBC) [facility] [Ratio] ([id number]) Ethanol Ql (U) 384.80 (HH) 06-24-2019 Hospital 12:39-0400 [facility] (57204) GFR/1.73 sq 102 (no code) 90 - 120 06-24-2019 Hospital M.predicted MDRD mL/min/{1.73_m2} mL/min/{1.73_m2} 13:00 [facility] (S/P/Bld) [Vol [facility] rate/Area] ([id number]) Globulin (S) 2.8 g/dL (no code) 2 - 3.5 g/dL 06-24-2019 Hospit al [Mass/Vol] 13: [facility] () Glucose 85 mg/dL (no code) 60 - 125 mg/dL 06-24-2019 Hospita l [Mass/Vol] 13:00 [facility] (64714) HCO3 (P) 22 (no code) 06-24-2019 Hospital [Moles/Vol] 13:00 [facility] ([id number]) Hematocrit (Bld) 41.1 % (no code) 36.1 - 50.3 % 06-24-2019 H ospital [Volume 13: [facility] fraction] [facility] ([id number]) Hemoglobin (Bld) 14.2 g/dL (no code) 12.1 - 17.2 g/dL 06-24-2019 Hospital [Mass/Vol] 13:00 [facility] (66348) Lymphocytes 2.63 10*3/uL (no code) 0.9 - 2.9 06-24-2019 Hospita l (Bld) [#/Vol] 10*3/uL 13:00 [facility] () Lymphocytes/100 44.4 % (no code) 20 - 40 % 06-24-2019 Hospit al WBC (Bld) 13: [facility] ([id number]) M. pneumoniae Ab Positive (A) 06-24-2019 Hospital Ql (S) 13: [facility] ([id number]) MCH (RBC) 35.3 pg (H) 27 - 31 pg 06-24-2019 Hospital [Entitic mass] 13: [facility] ([id number]) MCHC (RBC) 34.5 g/dL (no code) 32 - 36 g/dL 06-24-2019 Hospital [Mass/Vol] 13:00040 [facility] (64270) MCV (RBC) 102.2 fL (H) 80 - 100 fL 06-24-2019 Hospital [Entitic vol] 13:00 [facility] (78039) Methylenedioxyme Negative (no code) 06-24-2019 Hospital thamphetamine 12:39 [facility] Screen Ql (U) [facility] (77304) Monocytes (Bld) 0.9 10*3/uL (no code) 0.3 - 0.9 06-24-2019 Hosp ital [#/Vol] 10*3/uL 13:00 [facility] ([id number]) Monocytes/100 15.5 % (H) 2 - 8 % 06-24-2019 Hospital WBC (Bld) 13:00 [facility] (84384) Neutrophils 2.23 10*3/uL (no code) 1.7 - 7 10*3/uL 06-24-2019 H ospital (Bld) [#/Vol] 13:00040 [facility] (64903) Neutrophils/100 37.5 % (no code) 40 - 60 % 06-24-2019 Hospit al WBC (Bld) 13:00 [facility] (62730) Opiates Screen Negative (no code) 06-24-2019 Hospital Ql (U) 12:39 [facility] (69308) Osmolality Calc 283 (no code) 06-24-2019 Hospital [Osmolality] 13: [facility] ([id number]) Oxycodone Ql (U) Negative (no code) 06-24-2019 Hospital 12:39 [facility] (36425) Phencyclidine Ql Negative (no code) 06-24-2019 Hospital (U) 12:39040 [facility] (07137) Platelet mean 10.8 fL (H) 7.2 - 11.7 fL 06-24-2019 Hosp ital volume (Bld) 13:00 [facility] [Entitic vol] [facility] ([id number]) Platelets (Bld) 117 10*3/uL (L) 150 - 450 06-24-2019 Hosp ital [#/Vol] 10*3/uL 13:00040 [facility] (86414) Potassium 3.9 mmol/L (no code) 3.7 - 5.2 mmol/L 06-24-2019 Hosp ital [Moles/Vol] 13:00040 [facility] (21532) Propoxyphene Ql Negative (no code) 06-24-2019 Hospital (U) 12:39040 [facility] (50624) Protein 6.9 g/dL (no code) 6.4 - 8.3 g/dL 06-24-2019 Hospita l [Mass/Vol] 13:00040 [facility] (67655) RBC (Bld) 4.02 10*6/uL (no code) 4.2 - 6.1 06-24-2019 Hospital [#/Vol] 10*6/uL 13:00 [facility] (67884) Sodium 138 mmol/L (no code) 135 - 145 mmol/L 06-24-2019 Hosp ital [Moles/Vol] 13:00040 [facility] (22795) Tricyclic Negative (no code) 06-24-2019 Hospital antidepressants 12:39040 [facility] Ql (U) [facility] ([id number]) Urea nitrogen 7 mg/dL (no code) 7 - 20 mg/dL 06-24-2019 Hospi arianna [Mass/Vol] 13:00040 [facility] ([id number]) WBC (Bld) 5.93 10*3/uL (no code) 3.5 - 10.5 06-24-2019 Hospital [#/Vol] 10*3/uL 13:00-0400 [facility] (54065) not yet categorized on 2019-01-02 Urine Volume Urine Volume (no code) 01-02-2019 Hospital Sufficient 07:59-0500 [facility] (10mL) [facility] ([id number]) no information Urine Saved if (A) 01-02-2019 Hospital Culture Needed 07:59-0500 [facility] (48hrs from time [facility] of collection) ([id number]) laboratory on 2019-01-02 Albumin BCG dye 4.4 (no code) 01-02-2019 Hospital [Mass/Vol] 07:59-0500 [facility] ([id number]) ALP [Catalytic 88 U/L (no code) 44 - 147 U/L 01-02-2019 Hosp ital activity/Vol] 07:59-0500 [facility] ([id number]) ALT [Catalytic 30 U/L (no code) 4 - 40 U/L 01-02-2019 Hospit al activity/Vol] 07:59-0500 [facility] ([id number]) Anion gap 18 mmol/L (H) 3 - 11 mmol/L 01-02-2019 Hospital [Moles/Vol] 07:59-0500 [facility] (12805) AST [Catalytic 37 U/L (no code) 10 - 34 U/L 01-02-2019 Hospi arianna activity/Vol] 07:59-0500 [facility] ([id number]) Bacteria LM Ql Negative (no code) 01-02-2019 Hospital (Urine sed) 07:59-0500 [facility] ([id number]) Basophils (Bld) 0.1 10*3/uL (no code) 0 - 0.3 10*3/uL 01-02-2019 Hospital [#/Vol] 07:59-0500 [facility] (05550) Basophils/100 0.60 % (no code) 0.5 - 1 % 01-02-2019 Hospital WBC (Bld) 07:590500 [facility] (28494) Bilirubin 0.3 mg/dL (no code) 0.1 - 1.2 mg/dL 01-02-2019 Hospit al [Mass/Vol] 07:590500 [facility] (48924) Bilirubin N/A (A) 01-02-2019 Hospital Confirm Ql (U) 07:590500 [facility] (60819) Bilirubin Ql (U) Negative (no code) 01-02-2019 Hospital 07:590500 [facility] (80016) Calcium 9.4 mg/dL (no code) 8.5 - 10.2 mg/dL 01-02-2019 Hospi arianna [Mass/Vol] 07:590500 [facility] (36255) Chloride 102 mmol/L (no code) 95 - 106 mmol/L 01-02-2019 Hospi arianna [Moles/Vol] 07:590500 [facility] (20423) Clarity (U) Clear (no code) 01-02-2019 Hospital 07:590500 [facility] (00944) Color (U) Yellow (no code) 01-02-2019 Hospital 07:590500 [facility] (94850) Creatinine 0.60 mg/dL (no code) 01-02-2019 Hospital [Mass/Vol] 07:590500 [facility] (11329) Eosinophils 0.1 10*3/uL (no code) 0.05 - 0.5 01-02-2019 Hospita l (Bld) [#/Vol] 10*3/uL 07:590500 [facility] (71404) Eosinophils/100 1.8 % (no code) 1 - 4 % 01-02-2019 Hospit al WBC (Bld) 07:590500 [facility] (78755) Epithelial 0-5/HPF (A) 01-02-2019 Hospital cells.squamous 07:590500 [facility] LM.HPF (Urine [facility] sed) [#/Area] ([id number]) Erythrocyte 12.5 % (no code) 11.6 - 14.6 % 01-02-2019 Hospit al distribution 07:59-0500 [facility] width (RBC) [facility] [Ratio] ([id number]) GFR/1.73 sq 100 (no code) 90 - 120 01-02-2019 Hospital M.predicted MDRD mL/min/{1.73_m2} mL/min/{1.73_m2} 07:59-0500 [facility] (S/P/Bld) [Vol [facility] rate/Area] ([id number]) Globulin (S) 3.3 g/dL (no code) 2 - 3.5 g/dL 01-02-2019 Hospit al [Mass/Vol] 07:59-0500 [facility] (07607) Glucose 94 mg/dL (no code) 60 - 125 mg/dL 01-02-2019 Hospita l [Mass/Vol] 07:59-0500 [facility] (40844) Glucose Test Negative (no code) 01-02-2019 Hospital strip (U) 07:59-0500 [facility] [Mass/Vol] [facility] (06322) HCO3 (P) 24 (no code) 01-02-2019 Hospital [Moles/Vol] 07:59-0500 [facility] (04531) Hematocrit (Bld) 42.9 % (no code) 36.1 - 50.3 % 01-02-2019 H ospital [Volume 07:59-0500 [facility] fraction] [facility] ([id number]) Hemoglobin (Bld) 14.5 g/dL (no code) 12.1 - 17.2 g/dL 01-02-2019 Hospital [Mass/Vol] 07:59-0500 [facility] (99783) Hemoglobin Ql Negative (no code) 01-02-2019 Hospital (U) 07:59-0500 [facility] (46521) Ketones (U) Negative (no code) 01-02-2019 Hospital [Mass/Vol] 07:59-0500 [facility] (55397) Leukocyte Negative (no code) 01-02-2019 Hospital esterase Test 07:59-0500 [facility] strip Ql (U) [facility] ([id number]) Lymphocytes 2.47 10*3/uL (no code) 0.9 - 2.9 11-25-2019 Hospita l (Bld) [#/Vol] 10*3/uL 07:590500 [facility] (36181) Lymphocytes/100 31.3 % (no code) 20 - 40 % 01-02-2019 Hospit al WBC (Bld) 07:590500 [facility] (33572) MCH (RBC) 34.4 pg (H) 27 - 31 pg 01-02-2019 Hospital [Entitic mass] 07:590500 [facility] (56660) MCHC (RBC) 33.8 g/dL (no code) 32 - 36 g/dL 01-02-2019 Hospital [Mass/Vol] 07:590500 [facility] (86519) MCV (RBC) 101.9 fL (H) 80 - 100 fL 01-02-2019 Hospital [Entitic vol] 07:590500 [facility] (39716) Monocytes (Bld) 0.9 10*3/uL (no code) 0.3 - 0.9 01-02-2019 Hosp ital [#/Vol] 10*3/uL 07:590500 [facility] (17997) Monocytes/100 11.3 % (no code) 2 - 8 % 01-02-2019 Hospital WBC (Bld) 07:590500 [facility] (66937) Neutrophils 4.35 10*3/uL (no code) 1.7 - 7 10*3/uL 01-02-2019 H ospital (Bld) [#/Vol] 07:590500 [facility] (88369) Neutrophils/100 55.0 % (no code) 40 - 60 % 01-02-2019 Hospit al WBC (Bld) 07:590500 [facility] (64335) Nitrite Ql (U) Negative (no code) 01-02-2019 Hospital 07:590500 [facility] (22700) Osmolality Calc 287 (no code) 01-02-2019 Hospital [Osmolality] 07:59050 [facility] ([id number]) pH (U) 6.0 [pH] (no code) 4.6 - 8 [pH] 01-02-2019 Hospital 07:590500 [facility] (89604) Platelet mean 11.8 fL (H) 7.2 - 11.7 fL 01-02-2019 Hosp ital volume (Bld) 07:590500 [facility] [Entitic vol] [facility] (20815) Platelets (Bld) 152 10*3/uL (no code) 150 - 450 01-02-2019 Hosp ital [#/Vol] 10*3/uL 07:590500 [facility] (38134) Potassium 3.8 mmol/L (no code) 3.7 - 5.2 mmol/L 01-02-2019 Hosp ital [Moles/Vol] 07:590500 [facility] (24489) Protein (U) Negative (no code) 0 - 20 mg/dL 01-02-2019 Hospita l [Mass/Vol] 07:590500 [facility] (81174) Protein 7.7 g/dL (no code) 6.4 - 8.3 g/dL 01-02-2019 Hospita l [Mass/Vol] 07:590500 [facility] (83622) RBC (Bld) 4.21 10*6/uL (no code) 4.2 - 6.1 01-02-2019 Hospital [#/Vol] 10*6/uL 07:590500 [facility] (34455) RBC LM.HPF Negative (no code) 0 - 4 /[HPF] 01-02-2019 Hospital (Urine sed) 07:590500 [facility] [#/Area] [facility] (77155) Sodium 140 mmol/L (no code) 135 - 145 mmol/L 01-02-2019 Hosp ital [Moles/Vol] 07:590500 [facility] (40782) Specific gravity 1.010 (no code) 01-02-2019 Hospital (U) [Rel 07:590500 [facility] density] [facility] ([id number]) Urea nitrogen 7 mg/dL (no code) 7 - 20 mg/dL 01-02-2019 Hospi arianna [Mass/Vol] 07:590500 [facility] (24272) Urobilinogen Qn 0.265333021 (A) 01-02-2019 Hospital (U) {Elvia'U}/dL 07:590500 [facility] ([id number]) WBC (Bld) 7.90 10*3/uL (no code) 3.5 - 10.5 01-02-2019 Hospital [#/Vol] 10*3/uL 07:590500 [facility] (08170) WBC LM.HPF Negative (no code) 0 - 5 /[HPF] 01-02-2019 Hospital (Urine sed) 07:590500 [facility] [#/Area] [facility] ([id number]) Yeast.budding Ql No Yeast present (no code) 01-02-2019 Hosp ital (Urine sed) 07:590500 [facility] ([id number]) laboratory on 2018-12-15 Albumin 4.8 g/dL (N) 3.4 - 5.4 g/dL [facility] [Mass/Vol] [facility] (54488) Albumin/Globulin 1.9 {ratio} (N) 1 - 2.5 {ratio} [facility] [Mass ratio] [facility] (43938) ALP [Catalytic 91 U/L (N) 44 - 147 U/L [facility] activity/Vol] [facility] ([id number]) ALT [Catalytic 21 U/L (N) 4 - 40 U/L [facility] activity[facility]Vol[facility] ([id number]) AST [Catalytic 28 U/L (N) 10 - 34 U/L [facility] activity/Vol] [facility] ([id number]) Bilirubin 0.3 mg/dL (N) 0.1 - 1.2 mg/dL [facility] [Mass/Vol] [facility] (60415) Calcium 9.3 mg/dL (N) 8.5 - 10.2 mg/dL [facility] [Mass/Vol] [facility] (20154) Chloride 102 mmol/L (N) 95 - 106 mmol/L [facility] [Moles/Vol] [facility] (57543) CO2 [Moles/Vol] 27 mmol/L (N) 23 - 29 mmol/L [facility] ([id number]) Creatinine 0.52 mg/dL (N) [facility] [Mass/Vol] [facility] (45780) GFR/1.73 sq M 117 (N) 90 - 120 [facility] predicted among mL/min/{1.73_m2} mL/min/{1.73_m2} Center o f [facility] blacks MDRD [facility] (S/P/Bld) [Vol ([id number]) rate/Area] GFR/1.73 sq 101 (N) 90 - 120 [facility] th M.predicted MDRD mL/min/{1.73_m2} mL/min/{1.73_m2} [facility] (S/P/Bld) [Vol [facility] rate/Area] ([id number]) Globulin (S) 2.5 g/dL (N) 2 - 3.5 g/dL [facility] ealth [Mass/Vol] [facility] (47957) Glucose 66 mg/dL (N) 60 - 125 mg/dL [facility] [Mass/Vol] [facility] (32836) Potassium 4.5 mmol/L (N) 3.7 - 5.2 mmol/L [facility] [Moles/Vol] [facility] (26001) Protein 7.3 g/dL (N) 6.4 - 8.3 g/dL [facility] [Mass/Vol] [facility] (85935) Sodium 138 mmol/L (N) 135 - 145 mmol/L [facility] [Moles/Vol] [facility] (15587) Urea nitrogen 11 mg/dL (N) 7 - 20 mg/dL [facility] [Mass/Vol] [facility] ([id number]) Urea NOT APPLICABLE (no code) [facility] [Mass ratio] [facility] (80196) urinalysis on 2018-08-02 Amphetamines Ql Negative (no code) 08-02-2018 Hospital (U) 20:43-0400 [facility] (07058) Barbiturates Negative (no code) 08-02-2018 Hospital Screen Ql (U) 20:43-0400 [facility] ([id number]) Clarity (U) Clear (no code) 08-02-2018 Hospital 20:43-0400 [facility] (21942) Cocaine Ql (U) Negative (no code) 08-02-2018 Hospital 20:430400 [facility] (56585) Color (U) Yellow (no code) 08-02-2018 Hospital 20:430400 [facility] (69114) Epithelial 0-5/HPF (A) 08-02-2018 Hospital cells.squamous 20:430400 [facility] LM.HPF (Urine [facility] sed) [#/Area] (74172) Leukocyte Negative (no code) 08-02-2018 Hospital esterase Test 20:430400 [facility] strip Ql (U) [facility] (26253) Phencyclidine Ql Negative (no code) 08-02-2018 Hospital (U) 20:43-0400 [facility] (95704) Protein (U) Negative (no code) 0 - 20 mg/dL 08-02-2018 Hospita l [Mass/Vol] 20:43-0400 [facility] (14385) RBC LM.HPF Negative (no code) 0 - 4 /[HPF] 08-02-2018 Hospital (Urine sed) 20:430400 [facility] [#/Area] [facility] (19924) Specific gravity <=1.005 (A) 08-02-2018 Hospital (U) [Rel 20:43-0400 [facility] density] [facility] (25813) WBC LM.HPF Nothing Seen on (no code) 08-02-2018 Hospital (Urine sed) Microscopic 20:43-0400 [facility] [#/Area] [facility] (80326) other on 2018-08-02 Albumin BCG dye 4.7 (no code) 08-02-2018 Hospital [Mass/Vol] 19:37-0400 [facility] ([id number]) Bacteria LM Ql Negative (no code) 08-02-2018 Hospital (Urine sed) 20:43-0400 [facility] (54006) Benzodiazepine Negative (no code) 08-02-2018 Hospital metabolites 20:430400 [facility] Screen Ql (U) [facility] ([id number]) Bilirubin N/A (A) 08-02-2018 Hospital Confirm Ql (U) 20:430400 [facility] (96515) Bilirubin Ql (U) Negative (no code) 08-02-2018 Hospital 20:430400 [facility] (57221) Carboxy Negative (no code) 08-02-2018 Hospital tetrahydrocannab 20:430400 [facility] inol Ql (U) [facility] ([id number]) CK [Catalytic 65 U/L (no code) 08-02-2018 Hospital activity/Vol] 19:42-0400 [facility] (05334) Electrocardiogra Complete (no code) 08-02-2018 Hospital ms recorded 19:420400 [facility] (00564) Erythrocyte 12.4 % (no code) 11.6 - 14.6 % 08-02-2018 Hospit al distribution 19:37-0400 [facility] width (RBC) [facility] [Ratio] ([id number]) Ethanol Ql (U) 281.60 (HH) 08-02-2018 Hospital 20:43-0400 [facility] (63674) Gamma glutamyl 80 U/L (H) 0 - 30 U/L 08-02-2018 Hospit al transferase 19:53-0400 [facility] [Catalytic [facility] activity/Vol] (55706) GFR/1.73 sq 99 (no code) 90 - 120 08-02-2018 Hospital M.predicted MDRD mL/min/{1.73_m2} mL/min/{1.73_m2} 19:37-0400 [facility] (S/P/Bld) [Vol [facility] rate/Area] (88272) Globulin (S) 2.7 g/dL (no code) 2 - 3.5 g/dL 08-02-2018 Hospit al [Mass/Vol] 19:37-0400 [facility] (34555) Glucose Test Negative (no code) 08-02-2018 Hospital strip (U) 20:43-0400 [facility] [Mass/Vol] [facility] ([id number]) HCO3 (P) 20 (L) 08-02-2018 Hospital [Moles/Vol] 19:37-0400 [facility] ([id number]) Hemoglobin Ql Negative (no code) 08-02-2018 Hospital (U) 20:43-0400 [facility] ([id number]) Ketones (U) Negative (no code) 08-02-2018 Hospital [Mass/Vol] 20:43-0400 [facility] ([id number]) MCHC (RBC) 34.2 g/dL (no code) 32 - 36 g/dL 08-02-2018 Hospital [Mass/Vol] 19:37-0400 [facility] ([id number]) Methylenedioxyme Negative (no code) 08-02-2018 Hospital thamphetamine 20:43-0400 [facility] Screen Ql (U) [facility] ([id number]) Nitrite Ql (U) Negative (no code) 08-02-2018 Hospital 20:43-0400 [facility] ([id number]) Opiates Screen Negative (no code) 08-02-2018 Hospital Ql (U) 20:43-0400 [facility] ([id number]) Osmolality Calc 276 (L) 08-02-2018 Hospital [Osmolality] 19:37-0400 [facility] ([id number]) Oxycodone Ql (U) Negative (no code) 08-02-2018 Hospital 20:43-0400 [facility] ([id number]) pH (U) 5.5 [pH] (no code) 4.6 - 8 [pH] 08-02-2018 [facility] 20:43-0400 [facility] ([id number]) Platelet mean 11.4 fL (H) 7.2 - 11.7 fL 08-02-2018 Hosp ital volume (Bld) 19:37-0400 [facility] [Entitic vol] [facility] ([id number]) Propoxyphene Ql Negative (no code) 08-02-2018 Hospital (U) 20:43-0400 [facility] ([id number]) Tricyclic Negative (no code) 08-02-2018 Hospital antidepressants 20:430400 [facility] Ql (U) [facility] ([id number]) Urine Volume Urine Volume (no code) 08-02-2018 Hospital Sufficient 20:430400 [facility] ([facility] [place] ([id number]) Urobilinogen Qn 0.2 (no code) 08-02-2018 Hospital (U) 20:430400 [facility] ([id number]) Yeast.budding Ql No Yeast present (no code) 08-02-2018 Hosp ital (Urine sed) 20:430400 [facility] (59229) no information Urine Saved if (A) 08-02-2018 Hospital Culture Needed 20:430400 [facility] (48hrs from time [facility] of collection) ([id number]) metabolic panel on 2018-08-02 ALP [Catalytic 81 U/L (no code) 44 - 147 U/L 08-02-2018 Hosp ital activity/Vol] 19:37-0400 [facility] ([id number]) ALT [Catalytic 33 U/L (no code) 4 - 40 U/L 08-02-2018 Hospit al activity/Vol] 19:37-040 [facility] ([id number]) Anion gap 18 mmol/L (H) 3 - 11 mmol/L 08-02-2018 Hospital [Moles/Vol] 19:37-0400 [facility] ([id number]) AST [Catalytic 36 U/L (no code) 10 - 34 U/L 08-02-2018 Hospi arianna activity/Vol] 19:37-0400 [facility] (50689) Bilirubin 0.5 mg/dL (no code) 0.1 - 1.2 mg/dL 08-02-2018 Hospit al [Mass/Vol] 19:370400 [facility] (29531) Calcium 9.5 mg/dL (no code) 8.5 - 10.2 mg/dL 08-02-2018 Hospi arianna [Mass/Vol] 19:37040 [facility] (09890) Chloride 100 mmol/L (no code) 95 - 106 mmol/L 08-02-2018 Hospi arianna [Moles/Vol] 19:37-0400 [facility] (75944) Creatinine 0.61 mg/dL (no code) 08-02-2018 Hospital [Mass/Vol] 19:37-0400 [facility] (42322) Glucose 107 mg/dL (no code) 60 - 125 mg/dL 08-02-2018 Hospita l [Mass/Vol] 19:37-0400 [facility] (13965) Magnesium 2.8 mg/dL (H) 1.7 - 2.2 mg/dL 08-02-2018 Hospit al [Mass/Vol] 19:42-0400 [facility] (20547) Potassium 3.6 mmol/L (no code) 3.7 - 5.2 mmol/L 08-02-2018 Hosp ital [Moles/Vol] 19:37-0400 [facility] (21590) Protein 7.4 g/dL (no code) 6.4 - 8.3 g/dL 08-02-2018 Hospita l [Mass/Vol] 19:37-0400 [facility] (72483) Sodium 134 mmol/L (no code) 135 - 145 mmol/L 08-02-2018 Hosp ital [Moles/Vol] 19:37-0400 [facility] (10076) Urea nitrogen 8 mg/dL (no code) 7 - 20 mg/dL 08-02-2018 Hospi arianna [Mass/Vol] 19:37-0400 [facility] (43067) hematology on 2018-08-02 Basophils (Bld) 0.1 10*3/uL (no code) 0 - 0.3 10*3/uL 08-02-2018 Hospital [#/Vol] 19:37-0400 [facility] (34382) Basophils/100 0.80 % (no code) 0.5 - 1 % 08-02-2018 Hospital WBC (Bld) 19:37-0400 [facility] ([id number]) Eosinophils 0.0 10*3/uL (no code) 0.05 - 0.5 08-02-2018 Hospita l (Bld) [#/Vol] 10*3/uL 19:37-0400 [facility] (25526) Eosinophils/100 0.3 % (no code) 1 - 4 % 08-02-2018 Hospit al WBC (Bld) 19:370400 [facility] (63557) Hematocrit (Bld) 43.9 % (no code) 36.1 - 50.3 % 08-02-2018 H ospital [Volume 19:37-0400 [facility] fraction] [facility] ([id number]) Hemoglobin (Bld) 15.0 g/dL (no code) 12.1 - 17.2 g/dL 08-02-2018 Hospital [Mass/Vol] 19:37-0400 [facility] (12069) Lymphocytes 2.74 10*3/uL (no code) 0.9 - 2.9 08-02-2018 Hospita l (Bld) [#/Vol] 10*3/uL 19:370400 [facility] () Lymphocytes/100 30.0 % (no code) 20 - 40 % 08-02-2018 Hospit al WBC (Bld) 19:370400 [facility] ([id number]) MCH (RBC) 34.0 pg (H) 27 - 31 pg 08-02-2018 Hospital [Entitic mass] 19:370400 [facility] (25938) MCV (RBC) 99.5 fL (H) 80 - 100 fL 08-02-2018 Hospital [Entitic vol] 19:370400 [facility] (43057) Monocytes (Bld) 0.8 10*3/uL (no code) 0.3 - 0.9 08-02-2018 Hosp ital [#/Vol] 10*3/uL 19:370400 [facility] (81745) Monocytes/100 8.8 % (no code) 2 - 8 % 08-02-2018 Hospital WBC (Bld) 19:370400 [facility] (51732) Neutrophils 5.50 10*3/uL (no code) 1.7 - 7 10*3/uL 08-02-2018 H ospital (Bld) [#/Vol] 19:37-0400 [facility] (05733) Neutrophils/100 60.1 % (no code) 40 - 60 % 08-02-2018 Hospit al WBC (Bld) 19:37-0400 [facility] (85870) Platelets (Bld) 100 Result (L) 08-02-2018 Hospital [#/Vol] Verified by 19:370400 [facility] Repeat Analysis [facility] ([id number]) RBC (Bld) 4.41 10*6/uL (no code) 4.2 - 6.1 08-02-2018 Hospital [#/Vol] 10*6/uL 19:370400 [facility] ([id number]) WBC (Bld) 9.14 10*3/uL (no code) 3.5 - 10.5 08-02-2018 Hospital [#/Vol] 10*3/uL 19:370400 [facility] (50013) cardiac on 2018-08-02 CK.MB [Mass/Vol] 1.3 ng/mL (no code) 0 - 4.3 ng/mL 08-02-2018 H ospital 19:42-0400 [facility] (73247) Myoglobin 20.4 ng/mL (no code) 08-02-2018 Hospital [Mass/Vol] 19:42-0400 [facility] (77239) Troponin ng/mL (no code) 0 - 0.4 ng/mL 08-02-2018 Hospital I.cardiac 19:420400 [facility] [Mass/Vol] [facility] (72049) venous blood hemoglobin measurement (mass/volume) on 2017-10-10 Hemoglobin mass 14.6 g/dL (no code) 12.1 - 17.2 g/dL Via [facility] conc (Bld) [facility] (96376) urine urobilinogen measurement by automated test strip (mass/volume) on 2017-10-10 Urobilinogen NORMAL (no code) [facility] Test strip [facility] (U) [place] ([address]32) urine total bilirubin detection by test strip on 2017-10-10 Bilirubin Ql (U) Negative (no code) Via [facility] (50835) urine protein assay by test strip, semi-quantitativ e on 2017-10-10 Protein Test Negative (no code) [facility] strip ([facility] () urine ph measurement by test strip on 2017-10-10 pH Test strip 7 [pH] (no code) 4.6 - 8 [pH] Via [facility] ([facility] ([id number]) urine nitrite detection by test strip on 2017-10-10 Nitrite Test Negative (no code) [facility] strip ([facility] ([id number]) urine ketones detection by automated test strip on 2017-10-10 Ketones Negative (no code) [facility] Automated test Hospital strip Ql ([facility] () urine glucose detection by automated test strip on 2017-10-10 Glucose Negative (no code) [facility] Automated test [facility] strip ([facility] () urine color determination on 2017-10-10 Color Nom (U) YELLOW (no code) Via [facility] (35380) urine clarity determination on 2017-10-10 Clarity Nom (U) CLEAR (no code) Via [facility] (47947) specific gravity of urine by test strip on 2017-10-10 Specific gravity 1.005 (*) [facility] Relative Density [facility] ([facility] (34733) serum or plasma urea nitrogen/creatin ine mass ratio on 2017-10-10 Urea 18 mg/mg (no code) 6 - 22 mg/mg [facility] nitrogen/Creatin Hospital ine mass ratio [place] (54861) serum or plasma urea nitrogen measurement (mass/volume) on 2017-10-10 Urea nitrogen 10 mg/dL (no code) 7 - 20 mg/dL Via [facility] mass [facility] (47321) serum or plasma total bilirubin measurement (mass/volume) on 2017-10-10 Bilirubin mass 0.3 mg/dL (no code) 0.1 - 1.2 mg/dL Via [facility] (98535) serum or plasma sodium measurement (moles/volume) on 2017-10-10 Sodium molar 134 mmol/L (L) 135 - 145 mmol/L Via [facility] (86548) serum or plasma protein measurement (mass/volume) on 2017-10-10 Protein mass 7.2 g/dL (no code) 6.4 - 8.3 g/dL Via [facility] (83234) serum or plasma potassium measurement (moles/volume) on 2017-10-10 Potassium molar 3.7 mmol/L (no code) 3.7 - 5.2 mmol/L Via [facility] (58255) serum or plasma glucose measurement (mass/volume) on 2017-10-10 Glucose mass 89 mg/dL (no code) 60 - 125 mg/dL Via [facility] (21602) serum or plasma creatinine measurement with calculation of estimated glomerular filtration rate on 2017-10-10 GFR/1.73 sq M no information (no code) [facility] (54415) (S/P/Bld) serum or plasma creatinine measurement (mass/volume) on 2017-10-10 Creatinine mass 0.57 mg/dL (L) Via [facility] (34190) serum or plasma chloride measurement (moles/volume) on 2017-10-10 Chloride molar 101 mmol/L (no code) 95 - 106 mmol/L Via [facility] (25315) serum or plasma calcium measurement (mass/volume) on 2017-10-10 Calcium mass 9.0 mg/dL (no code) 8.5 - 10.2 mg/dL Via [facility] (06985) serum or plasma aspartate aminotransferase measurement (enzymatic activity/volume) on 2017-10-10 AST enzyme 20 U/L (no code) 10 - 34 U/L Via [facility] (85699) serum or plasma anion gap determination (moles/volume) on 2017-10-10 Anion gap 3 10 mmol/L (no code) 3 - 11 mmol/L Via [facility] (15483) serum or plasma alkaline phosphatase measurement (enzymatic activity/volume) on 2017-10-10 ALP enzyme 77 U/L (no code) 44 - 147 U/L Via [facility] (34326) serum or plasma albumin measurement (mass/volume) on 2017-10-10 Albumin mass 4.6 g/dL (H) 3.4 - 5.4 g/dL Via [facility] (50386) serum or plasma alanine aminotransferase measurement (enzymatic activity/volume) on 2017-10-10 ALT enzyme 13 U/L (no code) 4 - 40 U/L Via [place] act/vol [facility] (99725) mucus detection in urine sediment by light microscopy on 2017-10-10 Mucus LM Ql Negative (no code) [facility] (Urine sed) [facility] (81126) leukocyte esterase on 2017-10-10 Leukocyte Negative (no code) [facility] esterase Test Hospital strip Ql (U) [place] ([id number]) erythrocytes detection in urine sediment by light microscopy on 2017-10-10 RBC LM Ql (Urine Negative (no code) [facility] sed) [facility] ([id number]) crystals detection in urine sediment by light microscopy on 2017-10-10 Crystals LM Ql NONE (no code) [facility] (Urine sed) [facility] (53278) complete urinalysis with reflex to culture on 2017-10-10 Complete NO (no code) [facility] urinalysis with Hospital reflex to [place] culture (59951) casts detection in urine sediment by light microscopy on 2017-10-10 Casts LM Ql NONE (no code) [facility] (Urine sed) [facility] (74468) carbon dioxide on 2017-10-10 CO2 molar conc 23 mmol/L (no code) 23 - 29 mmol/L Via Chr isti [facility] (98489) blood neutrophils automated count (number/volume) on 2017-10-10 Neutrophils Auto 5.5 10*3/uL (no code) 1.7 - 7 10*3/uL Via [place] #/vol (Bld) [facility] (63828) blood monocytes/100 leukocytes on 2017-10-10 Monocytes/100 10 % (no code) 2 - 8 % [facility] WBC Auto (Bld) [facility] (29895) blood monocytes automated count (number/volume) on 2017-10-10 Monocytes Auto 1.1 10*3/uL (H) 0.3 - 0.9 Via [place] #/vol (Bld) 10*3/uL [facility] (95277) blood lymphocytes automated count (number/volume) on 2017-10-10 Lymphocytes Auto 3.7 10*3/uL (no code) 0.9 - 2.9 [facility] #/vol (Bld) 10*3/uL [facility] (80086) blood leukocytes automated count (number/volume) on 2017-10-10 WBC Auto #/vol 10.4 10*3/uL (no code) 3.5 - 10.5 Via [facility] i (d) 10*3/uL [facility] (51953) blood hematocrit (volume fraction) on 2017-10-10 Hematocrit Auto 42 % (no code) 36.1 - 50.3 % Via [facility] isti Volume Fraction Hospital (d) [place] (70597) blood erythrocytes automated count (number/volume) on 2017-10-10 RBC Auto #/vol 4.20 10*6/uL (L) 4.2 - 6.1 Via [facility] i (d) 10*6/uL [facility] (94014) bacteria detection in urine sediment by light microscopy on 2017-10-10 Bacteria LM Ql Negative (no code) [facility] (Urine sed) [facility] ([id number]) automated urine sediment leukocyte count by microscopy (number/high power field) on 2017-10-10 WBC LM.HPF NONE (no code) [facility] #/area (Urine Hospital sed) [place] (42178) automated urine sediment erythrocyte count by microscopy (number/high power field) on 2017-10-10 RBC LM.HPF NONE (no code) [facility] #/area (Urine Hospital [facility]) [place] (47164) automated erythrocyte mean corpuscular volume on 2017-10-10 MCV Auto Entitic 100 fL (H) 80 - 100 fL Via [facility] sti volume (RBC) [facility] (43214) automated erythrocyte mean corpuscular hemoglobin concentration measurement (mass/volume) on 2017-10-10 MCHC Auto mass 35 g/dL (no code) 32 - 36 g/dL [facility] conc (RBC) [facility] (25048) automated erythrocyte mean corpuscular hemoglobin (mass per erythrocyte) on 2017-10-10 MCH Auto Entitic 35 pg (H) 27 - 31 pg Via [facility] ti mass (RBC) [facility] (31731) automated erythrocyte distribution width ratio on 2017-10-10 Erythrocyte 12.7 % (no code) 11.6 - 14.6 % [facility] distribution Hospital width Auto Ratio [place] (RBC) ([id number]) automated eosinophil count on 2017-10-10 Eosinophils Auto 0.1 10*3/uL (no code) 0.05 - 0.5 Via ti #/vol (Bld) 10*3/uL [facility] (83556) automated blood platelet mean volume measurement on 2017-10-10 Platelet mean 9.6 fL (no code) 7.2 - 11.7 fL Via ti volume Auto [facility] Entitic volume [place] ([facility]) (70214) automated blood platelet count (count/volume) on 2017-10-10 Platelets Auto 276 10*3/uL (no code) 150 - 450 Via [place] #/vol (d) 10*3/uL [facility] (81686) automated blood neutrophils/100 leukocytes on 2017-10-10 Neutrophils/100 53 % (no code) 40 - 60 % Via Jan[facility] i WBC Auto (d) [facility] (48130) automated blood lymphocytes/100 leukocytes on 2017-10-10 Lymphocytes/100 36 % (no code) 20 - 40 % Via [facility] WBC Auto (Bld) [facility] (59462) automated blood eosinophils/100 leukocytes on 2017-10-10 Eosinophils/100 1 % (no code) 1 - 4 % Via [facility] WBC Auto (Bld) [facility] (91642) automated blood basophils/100 leukocytes on 2017-10-10 Basophils/100 1 % (no code) 0.5 - 1 % Via [place] WBC Auto (d) [facility] (24686) automated blood basophil count (count/volume) on 2017-10-10 Basophils Auto 0.1 10*3/uL (no code) 0 - 0.3 10*3/uL Via Ch risti #/vol (d) [facility] (78332) urinalysis on 2017-10-03 Bacteria LM.HPF Negative (no code) 10-03-2017 Hospital #/area (Urine 17:23-0400 [facility]) [facility] (03986) Barbiturates Negative (no code) 10-03-2017 Hospital Screen Ql (U) 17:-0400 [facility] (15600) Bilirubin Ql (U) Negative (no code) 10-03-2017 Hospital 17:23-0400 [facility] (75539) Bilirubin Ql (U) 0.3 (no code) 10-03-2017 Hospital 17:230400 [facility] (95837) Clarity Nom (U) Clear (no code) 10-03-2017 Hospital 17:0400 [facility] (76300) Color Nom (U) Straw (no code) 10-03-2017 Hospital 17:040 [facility] (10082) Epithelial 0-5/HPF (A) 10-03-2017 Hospital cells.squamous 17: [facility] LM.HPF #/area [facility] (Urine sed) ([id number]) Hemoglobin Test Negative (no code) 10-03-2017 Hospital strip Ql (U) 17: [facility] (13386) Leukocyte Negative (no code) 10-03-2017 Hospital esterase Test 17: [facility] strip Ql (U) [facility] (30105) Nitrite Test Negative (no code) 10-03-2017 Hospital strip Ql (U) 17: [facility] (50021) pH Test strip 5.5 [pH] (no code) 4.6 - 8 [pH] 10-03-2017 Hospi arianna (U) 17: [facility] (63049) Phencyclidine Ql Negative (no code) 10-03-2017 Hospital (U) 17:040 [facility] (07816) Protein mass Negative (no code) 0 - 20 mg/dL 10-03-2017 Hospit al conc (U) 17: [facility] (21781) RBC LM.HPF Negative (no code) 0 - 4 /[HPF] 10-03-2017 Hospital #/area (Urine 17: [facility] sed) [facility] (58809) Specific gravity <=1.005 (A) 10-03-2017 Hospital Relative Density 17: [facility] (U) [facility] (31351) Urobilinogen 0.2 (A) 0.2 - 1 10-03-2017 Hospital Test strip Qn {Elvia'U}/dL {Elvia'U}/dL 17: [facility] (U) [facility] (99838) WBC LM.HPF Rare/HPF (A) 10-03-2017 Hospital #/area (Urine 17:0400 [facility] sed) [facility] (99790) other on 2017-10-03 Acetaminophen <0 (L) 10-03-2017 Hospital mass conc 17:230400 [facility] (75785) AMP Negative (no code) 10-03-2017 Hospital 17:230400 [facility] (27088) BZO Negative (no code) 10-03-2017 Hospital 17:0400 [facility] (71879) TRAVIS Negative (no code) 10-03-2017 Hospital 17:0400 [facility] (11361) Globulin 1.8 g/dL (L) 2 - 3.5 g/dL 10-03-2017 Hospital Calculated mass 17: [facility] conc (S) [facility] (43792) Glucose. Negative (no code) 10-03-2017 Hospital 17:0400 [facility] (40333) Icto N/A (A) 10-03-2017 Hospital 17:0400 [facility] (57595) Ketones mass Negative (no code) 10-03-2017 Hospital conc (U) 17:0 [facility] (53635) MDMA Negative (no code) 10-03-2017 Hospital 17:0400 [facility] (77649) OPI Negative (no code) 10-03-2017 Hospital 17:0400 [facility] (81566) OXY Negative (no code) 10-03-2017 Hospital 17:0400 [facility] (77939) PPX Negative (no code) 10-03-2017 Hospital 17:0400 [facility] (31276) Salicylates mass <50 (no code) 10-03-2017 Hospital conc 17:0400 [facility] (48111) TCA Negative (no code) 10-03-2017 Hospital 17:0400 [facility] (73731) THC Negative (no code) 10-03-2017 Hospital 17: [facility] (73374) Urine Volume Urine Volume (no code) 10-03-2017 Hospital Sufficient 17: [facility] (10mL) [facility] (22490) Urine Yeast No Yeast present (no code) 10-03-2017 Hospital 17: [facility] (70137) no information Urine Saved if (A) 10-03-2017 Hospital Culture Needed 17: [facility] (48hrs from time [facility] of collection) ([id number]) metabolic panel on 2017-10-03 Albumin mass 4.7 g/dL (no code) 3.4 - 5.4 g/dL 10-03-2017 Hosp ital conc 17: [facility] (37419) ALP enzyme 82 U/L (no code) 44 - 147 U/L 10-03-2017 Hospital act/vol 17: [facility] (56120) ALT enzyme 13 U/L (no code) 4 - 40 U/L 10-03-2017 Hospital act/vol 17: [facility] (84681) Anion gap 3 19 mmol/L (H) 3 - 11 mmol/L 10-03-2017 Hospit al molar conc 17: [facility] (51201) AST enzyme 21 U/L (no code) 10 - 34 U/L 10-03-2017 Hospital act/vol 17: [facility] (10269) Calcium mass 9.2 mg/dL (no code) 8.5 - 10.2 mg/dL 10-03-2017 Ho spital conc 17: [facility] (38099) Chloride molar 101 mmol/L (no code) 95 - 106 mmol/L 10-03-2017 Hospital conc 17: [facility] (34108) CO2 molar conc 21 mmol/L (L) 23 - 29 mmol/L 10-03-2017 Ho spital 17: [facility] (20990) Creatinine mass 0.60 mg/dL (no code) 10-03-2017 Hospital conc 17: [facility] (12784) GFR/1.73 sq M 101 (no code) 90 - 120 10-03-2017 Hospital predicted among mL/min/{1.73_m2} mL/min/{1.73_m2} 17: [facility] non-blacks MDRD [facility] vol rate/area () (S/P/Bld) Glucose mass 68 mg/dL (L) 60 - 125 mg/dL 10-03-2017 Hosp ital conc 17: [facility] (57053) Osmolality 281 mosm/kg (no code) 275 - 295 10-03-2017 Hospital mosm/kg 17: [facility] () Potassium molar 3.8 mmol/L (no code) 3.7 - 5.2 mmol/L 10-03-2017 Hospital conc 17: [facility] () Protein mass 6.5 g/dL (no code) 6.4 - 8.3 g/dL 10-03-2017 Hosp ital conc 17: [facility] (37515) Sodium molar 137 mmol/L (no code) 135 - 145 mmol/L 10-03-2017 H ospital conc 17: [facility] (24238) Urea nitrogen 10 mg/dL (no code) 7 - 20 mg/dL 10-03-2017 Hospi arianna mass conc 17: [facility] (49562) hematology on 2017-10-03 Basophils Auto 0.1 10*3/uL (no code) 0 - 0.3 10*3/uL 10-03-2017 Hospital #/vol (Bld) 17: [facility] (87928) Basophils/100 0.60 % (no code) 0.5 - 1 % 10-03-2017 Hospital WBC Auto (Bld) 17: [facility] (07277) Eosinophils Auto 0.2 10*3/uL (no code) 0.05 - 0.5 10-03-2017 Ho spital #/vol (Bld) 10*3/uL 17: [facility] (28450) Eosinophils/100 1.8 % (no code) 1 - 4 % 10-03-2017 Hospit al WBC Auto (Bld) 17: [facility] (89963) Erythrocyte 12.4 % (no code) 11.6 - 14.6 % 10-03-2017 Hospit al distribution 17: [facility] width Auto Ratio [facility] (RBC) (97842) Hematocrit Auto 41.0 % (no code) 36.1 - 50.3 % 10-03-2017 Ho spital Volume Fraction 17: [facility] (Bld) [facility] (10280) Hemoglobin mass 14.6 g/dL (no code) 12.1 - 17.2 g/dL 10-03-2017 Hospital conc (Bld) 17: [facility] (04596) Lymphocytes Auto 4.43 10*3/uL (H) 0.9 - 2.9 10-03-2017 Ho spital #/vol (Bld) 10*3/uL 17: [facility] (55666) Lymphocytes/100 38.9 % (no code) 20 - 40 % 10-03-2017 Hospit al WBC Auto (Bld) 17: [facility] (64061) MCH Auto Entitic 35.1 pg (H) 27 - 31 pg 10-03-2017 Hosp ital mass (RBC) 17: [facility] (20231) MCHC Auto mass 35.6 g/dL (no code) 32 - 36 g/dL 10-03-2017 Hosp ital conc (RBC) 17: [facility] (59644) MCV Auto Entitic 98.6 fL (H) 80 - 100 fL 10-03-2017 Hos pital volume (RBC) 17: [facility] (27648) Monocytes Auto 1.1 10*3/uL (H) 0.3 - 0.9 10-03-2017 Hospi arianna #/vol (Bld) 10*3/uL 17: [facility] (54894) Monocytes/100 9.8 % (no code) 2 - 8 % 10-03-2017 Hospital WBC Auto (Bld) 17: [facility] (35324) Neutrophils Auto 5.56 10*3/uL (no code) 1.7 - 7 10*3/uL 10-04-19 18 Hospital #/vol (Bld) 17: [facility] (76283) Neutrophils/100 48.9 % (no code) 40 - 60 % 10-03-2017 Hospit al WBC Auto (Bld) 17: [facility] (44248) Platelet mean 9.4 fL (no code) 7.2 - 11.7 fL 10-03-2017 Hosp ital volume Auto 17: [facility] Entitic volume [facility] ([facility]) (74388) Platelets Auto 343 10*3/uL (no code) 150 - 450 10-03-2017 Hospi arianna #/vol (Bld) 10*3/uL 17: [facility] (71334) RBC Auto #/vol 4.16 10*6/uL (no code) 4.2 - 6.1 10-03-2017 Hosp ital (Bld) 10*6/uL 17: [facility] (03787) WBC Auto #/vol 11.38 10*3/uL (H) 3.5 - 10.5 10-03-2017 Ho spital (Bld) 10*3/uL 17: [facility] (08734) drug on 2017-10-03 Ethanol mass 281 mg/dL (HH) 0 - 80 mg/dL 10-03-2017 Hospit al conc 17: [facility] (01921) venous blood hemoglobin measurement (mass/volume) on 2017-08-19 Hemoglobin (HGB) 13.8 g/dL (no code) 12 - 18 g/dL Via [facility] (74477) urine urobilinogen measurement by automated test strip (mass/volume) on 2017-08-19 Urine, NORMAL (no code) [facility] ([id number]) urine total bilirubin detection by test strip on 2017-08-19 Urine, bilirubin Negative (no code) Via [facility] (77027) urine protein assay by test strip, semi-quantitativ e on 2017-08-19 Urine, protein Negative (no code) Via [facility] (25225) urine ph measurement by test strip on 2017-08-19 Urine, pH 6 [pH] (no code) 4.6 - 8 [pH] Via [facility] (60232) urine nitrite detection by test strip on 2017-08-19 Urine, nitrite Negative (no code) Via [facility] (72892) urine ketones detection by automated test strip on 2017-08-19 Urine, ketones Negative (no code) Via [facility] (41101) urine glucose detection by automated test strip on 2017-08-19 Urine, glucose Negative (no code) Via [facility] (76735) urine color determination on 2017-08-19 Urine, color YELLOW (no code) Via [facility] (37523) urine clarity determination on 2017-08-19 Urine, clarity CLEAR (no code) Via [facility] (28903) squamous epithelial cells detection in urine sediment by light microscopy on 2017-08-19 Urine, squamous RARE (no code) Via [facility] cells [facility] (31531) specific gravity of urine by test strip on 2017-08-19 Urine, specific 1.005 (*) Via [facility] (73379) serum or plasma urea nitrogen/creatin ine mass ratio on 2017-08-19 BUN/Creatinine 20 mg/mg (no code) 10 - 20 mg/mg Via [facility] (00282) serum or plasma urea nitrogen measurement (mass/volume) on 2017-08-19 Urea nitrogen 12 mg/dL (no code) 7 - 20 mg/dL Via [facility] (84358) serum or plasma sodium measurement (moles/volume) on 2017-08-19 Sodium 137 mmol/L (no code) 135 - 147 mmol/L Via [facility] (68505) serum or plasma potassium measurement (moles/volume) on 2017-08-19 Potassium 3.7 mmol/L (no code) 3.5 - 5.1 mmol/L Via [facility] (33223) serum or plasma glucose measurement (mass/volume) on 2017-08-19 Glucose 80 mg/dL (no code) 60 - 125 mg/dL Via [facility] (02770) serum or plasma creatinine measurement with calculation of estimated glomerular filtration rate on 2017-08-19 eGFR (non-black) no information (no code) Via [facility] (35216) serum or plasma creatinine measurement (mass/volume) on 2017-08-19 Creatinine 0.60 mg/dL (no code) Via [facility] (46027) serum or plasma chloride measurement (moles/volume) on 2017-08-19 Chloride 103 mmol/L (no code) 95 - 106 mmol/L Via [facility] (92773) serum or plasma calcium measurement (mass/volume) on 2017-08-19 Calcium 9.2 mg/dL (no code) 9 - 11 mg/dL Via [facility] (38262) serum or plasma anion gap determination (moles/volume) on 2017-08-19 Anion gap 11 mmol/L (no code) 3 - 11 mmol/L Via [facility] (11032) mucus detection in urine sediment by light microscopy on 2017-08-19 Urine, mucus Negative (no code) Via [facility] (69073) leukocyte esterase on 2017-08-19 Urine, leukocyte Negative (no code) Via [facility] esterase [facility] (57270) erythrocytes detection in urine sediment by light microscopy on 2017-08-19 Urine, Negative (no code) Via [facility] erythrocytes [facility] (44046) crystals detection in urine sediment by light microscopy on 2017-08-19 Urine, crystals NONE (no code) Via [facility] (09653) complete urinalysis with reflex to culture on 2017-08-19 Complete NO (no code) Via [facility] urinalysis with Hospital reflex to [place] culture (12506) casts detection in urine sediment by light microscopy on 2017-08-19 Urine, casts in NONE (no code) Via [facility] (54107) carbon dioxide on 2017-08-19 CO2 23 mmol/L (no code) 23 - 29 mmol/L Via [facility] (19514) blood neutrophils automated count (number/volume) on 2017-08-19 Neutrophils 5.4 10*3/uL (no code) 1.5 - 7.8 Via [facility] 10*3/uL [facility] (43813) blood monocytes/100 leukocytes on 2017-08-19 Monocytes/100 12 % (no code) 2 - 8 % Via [facility] leukocytes [facility] (45481) blood monocytes automated count (number/volume) on 2017-08-19 Monocytes 1.4 10*3/uL (H) 0.2 - 1.1 Via [facility] 10*3/uL [facility] (90192) blood lymphocytes automated count (number/volume) on 2017-08-19 Lymphocytes 4.2 10*3/uL (H) 0.85 - 4.1 Via [facility] 10*3/uL [facility] (83266) blood leukocytes automated count (number/volume) on 2017-08-19 WBC (Leukocytes) 11.3 10*3/uL (H) 3.8 - 10.8 [facility] (05391) blood hematocrit (volume fraction) on 2017-08-19 Hematocrit (HCT) 39 % (no code) 39 - 51 % Via [facility] (19441) blood erythrocytes automated count (number/volume) on 2017-08-19 Erythrocytes 3.89 10*6/uL (L) 4.2 - 6.1 Via [facility] (RBC) 10*6/uL [facility] (19285) bacteria detection in urine sediment by light microscopy on 2017-08-19 Urine, bacteria NONE (no code) Via [facility] in sediment [facility] (28302) automated urine sediment leukocyte count by microscopy (number/high power field) on 2017-08-19 Urine, NONE (no code) Via [facility] leukocytes in [facility] (30289) automated urine sediment erythrocyte count by microscopy (number/high power field) on 2017-08-19 Urine, NONE (no code) Via [facility] erythrocytes in [facility] sediment [facility] (06287) automated erythrocyte mean corpuscular volume on 2017-08-19 MCV 99 fL (no code) 80 - 100 fL Via [facility] (55460) automated erythrocyte mean corpuscular hemoglobin concentration measurement (mass/volume) on 2017-08-19 MCHC 36 g/dL (no code) 32 - 36 g/dL Via [facility] (78893) automated erythrocyte mean corpuscular hemoglobin (mass per erythrocyte) on 2017-08-19 MCH 36 pg (H) 27 - 31 pg Via [facility] (67650) automated erythrocyte distribution width ratio on 2017-08-19 RDW-CA 12.9 % (no code) 11 - 15 % Via [facility] (70238) automated eosinophil count on 2017-08-19 Eosinophils 0.2 10*3/uL (no code) 0.05 - 1.5 Via [facility] 10*3/uL [facility] (77460) automated blood platelet mean volume measurement on 2017-08-19 Platelet mean 9.7 fL (no code) 7.2 - 11.7 fL Via [facility] (PMV) [facility] (50099) automated blood platelet count (count/volume) on 2017-08-19 Platelets 282 10*3/uL (no code) 150 - 400 Via [facility] 10*3/uL [facility] (47905) automated blood neutrophils/100 leukocytes on 2017-08-19 Neutrophils/100 48 % (no code) 40 - 60 % Via [facility] leukocytes [facility] (56476) automated blood lymphocytes/100 leukocytes on 2017-08-19 Lymphocytes/100 37 % (no code) 20 - 40 % Via [facility] leukocytes [facility] (56795) automated blood eosinophils/100 leukocytes on 2017-08-19 Eosinophils/100 2 % (no code) 1 - 4 % Via [facility] (83016) automated blood basophils/100 leukocytes on 2017-08-19 Basophils/100 1 % (no code) 0.5 - 1 % Via [facility] (50780) automated blood basophil count (count/volume) on 2017-08-19 Basophils 0.1 10*3/uL (no code) 0 - 0.2 10*3/uL Via [facility] (70922) Vital Signs Vital Sign Value Interpretation Reference Date Time Care Prov ider Facility (Normalized) (Normalized) Range Body height 167.64 cm (no code) cm 11-27-2013 [facility] 12:19-5020 77377 [facility] (19405) Body height 167.64 cm (no code) cm 06-02-2013 [facility] 13:36-0400 77287 [facility] (34073) Body height 167.64 cm (no code) cm 04-17-2013 APRIL rmjagMIHIR SALAZAR [facility] 11:34-0400 95539 [facility] (94865) Body 98.1 [degF] (no code) 97.8 - 99.0 02-16-2014 [facility] Temperature [degF] 11:310500 00463 [facility] (81737) Body 98 [degF] (no code) 97.8 - 99.0 11-27-2013 [facility] temperature [degF] 12:19-0400 34248 [facility] (51031) Body 97.5 [degF] (no code) 97.8 - 99.0 09-18-2013 [facility] Temperature [degF] 14:40-0400 37100 [facility] (44102) Body 96.9 [degF] (no code) 97.8 - 99.0 07-25-2013 [facility] Temperature [degF] 18:53-0400 22001 [facility] (24294) Body 98.7 [degF] (no code) 97.8 - 99.0 06-02-2013 [facility] temperature [degF] 13:36-0400 64570 [facility] (09753) Body 98 [degF] (no code) 97.8 - 99.0 04-17-2013 APRIL Menon MARTIN [facility] temperature [degF] 11:34-0400 60458 [facility] (63123) Body weight 53.98 kg (no code) kg 02-16-2014 [facility] 11:310500 98949 [facility] (66337) Body weight 55.34 kg (no code) kg 11-27-2013 [facility] 12:190400 45743 [facility] (06932) Body weight 52.84 kg (no code) kg [facility]-18-[facility] 14[facility] [place] [address] (97754) Body weight 54.93 kg (no code) kg 07-25-2013 [facility] 18:53-[id number] [place] [address] (13862) Body weight 55.34 kg (no code) kg 06-02-2013 MIGUE ESTRADA [facility] 13:36-0400 36055 [facility] (81348) Body weight 58.2 kg (no code) kg 04-17-2013 APRIL Tanner [facility] 11:34-[id number] [place] [address] (15985) Height 157.48 cm (no code) cm 02-16-2014 [facility] 11:31-[address] [place] [address] (72132) Height 167.64 cm (no code) cm 09-18-2013 [facility] 14:40-[id number] [place] [address] (77419) Height 167.64 cm (no code) cm 07-25-2013 [facility] 18:53-[id number] [place] [address] ([id number]) Interventions No Information Plan of Treatment Normalized Care Care Detail Care Activity Date Care Provider F acility Activity Albumin [Mass/Vol] no information no information MD HUMA GARRETT [place] [facility] [address]229 (Work Phone: [place] [address] ) (37496) ALP [Catalytic no information no information MD HUMA LOZOYA [place] [facility] activity/Vol] 03833 (Work Phone: [place] [address] ) (29299) ALT [Catalytic no information no information MD HUMA LOZOYA [place] [facility] activity/Vol] 28215 (Work Phone: [place] [address] ) (61765) Anion gap no information no information MD [facility]A [facility] [Moles/Vol] 05178 (Work Phone: [place] [address] ) (21187) AST [Catalytic no information no information MD HUMA LOZOYA [place] [facility] activity/Vol] 24065 (Work Phone: [place] [address] ) (23718) Bacteria LM Ql no information no information MD HUMA LOZOYA [place] Via (Urine sed) 89625 (Work Phone: [place] [address] ) (87061) Bilirubin [Mass/Vol] no information no information MD HUMA YOUNG RTER [place] [facility] 76691 (Work Phone: [place] [address] ) (00854) Bilirubin Ql (U) no information no information MD HUMA LOZOYA [place] [facility] 82757 (Work Phone: [place] [address] ) (03748) Calcium [Mass/Vol] no information no information MD HUMA GARRETT ER [place] [facility] 25776 (Work Phone: [place] [address] ) (91631) Calcium corrected no information no information MD HUMA ROWE R [place] Via for total protein 04544 (Work Phone: [facility] [Mass/Vol] ) (53357) Casts LM Ql (Urine no information no information MD HUMA LINN [place] Via sed) 33434 (Work Phone: [place] [address] ) (62702) Chloride [Moles/Vol] no information no information MD HUMA YOUNG RTER [place] [facility] 42205 (Work Phone: [place] [address] ) (10140) Clarity (U) no information no information MD HUMA LOZOYA [facility] 74028 (Work Phone: [place] [address] ) (18998) CO2 [Moles/Vol] no information no information MD HUMA LOZOYA [place] [facility] 58154 (Work Phone: [place] [address] ) (11735) Color (U) no information no information MD HUMA LOZOYA [facility] 20658 (Work Phone: [place] [address] ) (92071) Creatinine no information no information MD HUMA LOZOYA [facility] [Mass/Vol] 36405 (Work Phone: [place] [address] ) (36601) Crystals LM Ql no information no information MD HUMA LOZOYA [place] Via (Urine sed) 75786 (Work Phone: [place] [address] ) (14425) Glucose [Mass/Vol] no information no information MD HUMA GARRETT ER [place] [facility] 83539 (Work Phone: [place] [address] ) (39964) Glucose Auto test no information no information MD HUMA ROWE R [place] [facility] strip Ql (U) 61560 (Work Phone: [place] [address] ) (42239) INR Coag (Platelet no information no information MD HUMA GARRETT [place] [address] (Work Phone: [facility] blood) [Relative ) (75430) time] Ketones Auto test no information no information MD HUMA ROWE R [place] [facility] strip Ql (U) 25167 (Work Phone: [place] [address] ) (81562) Leukocyte esterase no information no information MD HUMA GARRETT ER [place] Via Test strip Ql (U) 80656 (Work Phone: [place] [address] ) (59342) Mucus Ql (Urine sed) no information no information MD HUMA YOUNG RTER [place] [facility] 14763 (Work Phone: [place] [address] ) (15221) Nitrite Ql (U) no information no information MD HUMA LOZOYA [place] [facility] 19417 (Work Phone: [place] [address] ) (46171) Patient Education no information no information HUMA LOZOYA 6 6765 [place] Via [facility] (67053) Patient referral no information no information HUMA LOZOYA 66 762 [place] Via [facility] (13382) pH (U) no information no information MD HUMA LOZOYA [facility] 32672 (Work Phone: [place] [address] ) (67591) Potassium no information no information MD HUMA LOZOYA [facility] [Moles/Vol] 12977 (Work Phone: [place] [address] ) (55236) Protein [Mass/Vol] no information no information MD HUMA GARRETT ER [place] [facility] 31331 (Work Phone: [place] [address] ) (19266) Protein Ql (U) no information no information MD HUMA LOZOYA [place] [facility] 08533 (Work Phone: [place] [address] ) (17990) PT baseline Coag no information no information MD HUMA LOZOYA [place] Via (PPP) [Time] 24263 (Work Phone: [place] [address] ) (19934) RBC LM.HPF (Urine no information no information MD HUMA Perez [place] Via sed) [#/Area] 67767 (Work Phone: [place] [address] ) (55702) RBC Ql (U) no information no information MD HUMA LOZOYA [facility] 17509 (Work Phone: [place] [address] ) (52935) Sodium [Moles/Vol] no information no information MD HUMA LINN [place] [facility] 88922 (Work Phone: [place] [address] ) (53873) Specific gravity (U) no information no information MD HUMA BOWLING [place] Via [Rel density] 87841 (Work Phone: [place] [address] ) (82825) Urea nitrogen no information no information MD HUMA Trammell scension Via [Mass/Vol] 62328 (Work Phone: [place] [address] ) (53092) Urea no information no information MD HUMA LOZOYA [facility] nitrogen/Creatinine 31354 (Work Phone: [facility] [Mass ratio] ) (92805) Urinalysis complete no information no information MD HUMA BHAT TER [place] Via W Reflex Culture 36240 (Work Phone: [facility] panel - Urine ) (20609) Urobilinogen (U) no information no information MD HUMA LOZOYA [place] Via [Mass/Vol] 65321 (Work Phone: [facility] ) (35127) WBC LM.HPF (Urine no information no information MD HUMA Perez [place] Via sed) [#/Area] 78856 (Work Phone: [place] [address] ) (28634) Goals Patient Goal Desired Goal no information [...] Care Provi nasima Organization Date Type 09-05-2018 [facility] [place] Pain in right ankle HUMA YOUNG RTER (no [facility] [place] - and joints of right phone) (no phone) 09-05-2018 foot - 09-05-2018 07-14-2019 Emergency department no information (no phone) [facility] - patient visit Hospital (no phone) 07-14-2019 07-14-2019 Emergency department no information RAUL Sedrick WHITTAKER D O (no [facility] - patient visit phone) [facility] 07-14-2019 FLY MAKER (no phone) RAUL (no phone) Sedrick WHITTAKER DO (no phone) LI [facility]OPE[facility] FLY MAKER (no phone) [facility] FLY MAKER (no phone) [facility] FLY MAKER (no phone) LI LOPE[facility] FLY MAKER (no phone) [facility] LOPE[facility] FLY MAKER (no phone) 07-03-2019 Emergency department no information (no phone) [facility] - patient visit Hospital (no phone) 07-03-2019 07-03-2019 Emergency department no information AMBER MCKEON DO (no [facility] - patient visit phone) [facility] 07-03-2019 FLY MAKER (no phone) LI (no phone) Jyoti LOPEZ FLY MAKER (no phone) [facility] FLY MAKER (no phone) [facility] FLY MAKER (no phone) [facility] FLY MAKER (no phone) LI LOPEZ FLY MAKER (no phone) 07-02-2019 Emergency department no information (no phone) [facility] - patient visit Hospital (no phone) 07-02-2019 07-02-2019 Emergency department no information AMBER MCKEON DO (no [facility] - patient visit phone) [facility] 07-02-2019 FLY MAKER (no phone) LI (no phone) Jyoti LOPEZ FLY MAKER (no phone) LI LOPEZ FLY MAKER (no phone) LI LOPEZ FLY MAKER (no phone) LI LOPEZ FLY MAKER (no phone) LI LOPEZ FLY MAKER (no phone) 12-22-2018 Emergency department no information (no phone) [facility] - patient visit Hospital (no phone) 12-22-2018 12-22-2018 Emergency department no information TANNA LOPEZ MD (no [facility] - patient visit phone) [facility] 12-22-2018 (no phone) 10-12-2018 Emergency department no information MALIA JONES no organization name - patient visit Work Phone: 10-12-2018 MALIA JOLLY 10-12-2018 Emergency department no information MALIA JONES [facility] - patient visit (no phone) [facility] 10-12-2018 (no phone) 10-11-2018 Emergency department no information LI ARREGUIN no organization name - patient visit Work Phone: 10-11-2018 LI LOPE[facility] 10-11-2018 Emergency department no information LI EVERETT (no [facility] - patient visit phone) [facility] 10-11-2018 (no phone) 09-09-2018 Emergency department no information no name no organization name - patient visit 09-09-2018 09-09-2018 Emergency department no information TANNA LOPEZ MD (no [facility] - patient visit phone) [facility] 09-09-2018 (no phone) 07-13-2018 Emergency department no information no name no organization name - patient visit 07-13-2018 07-13-2018 Emergency department no information JENIFER MULLINS A URINALYSIS TECHNICIAN (no [facility] - patient visit phone) [facility] 07-13-2018 (no phone) 06-30-2018 Emergency department no information AMBER K MIKE DO (no [facility] - patient visit phone) [facility] 06-30-2018 FLY MAKER (no phone) LI (no phone) Jyoti LOPEZ FLY MAKER (no phone) AMBER K MIKE DO (no phone) AMBER K MIKE DO (no phone) LI LOPEZ FLY MAKER (no phone) AMBER K MIKE DO (no phone) LI LOPE[facility] FLY MAKER (no phone) AMBER Zapata MIKE DO (no phone) LI Montes LOPEZ FLY MAKER (no phone) AMBER K MIKE DO (no phone) LI LOPEZ FLY MAKER (no phone) AMBER K MIKE DO (no phone) LI Montes LOPEZ FLY MAKER (no phone) 06-29-2018 Emergency department no information no name no organization name - patient visit 06-30-2018 06-29-2018 Emergency department no information JENIFER MULLINS A URINALYSIS TECHNICIAN (no [facility] - patient visit phone) [facility] 06-29-2018 (no phone) 10-12-2017 Emergency department no information no name no organization name - patient visit 10-12-2017 10-12-2017 Emergency department no information JENIFER MULLINS A URINALYSIS TECHNICIAN (no [facility] - patient visit phone) [facility] 10-12-2017 (no phone) 10-10-2017 Emergency department no information JENIFER MULLINS ( no no organization name - patient visit phone) 10-10-2017 10-10-2017 Emergency department no information JENIFER MULLINS A URINALYSIS TECHNICIAN (no [facility] - patient visit phone) [facility] 10-10-2017 (no phone) 09-13-2017 Emergency department no information AMBER MCKEON Wor k no organization name - patient visit Phone: 09-13-2017 AMBER MCKEON 09-13-2017 Emergency department no information AMBER MCKEON DO (no [facility] - patient visit phone) [facility] 09-13-2017 (no phone) 09-13-2017 Emergency department no information LI Montes APRN, BA RODRÍGUEZ no organization name - patient visit Work Phone: 09-13-2017 LI LOPEZ LI LOPEZ 09-13-2017 Emergency department no information LI PHANN (no [facility] - patient visit phone) [facility] 09-13-2017 (no phone) 08-19-2017 Emergency department no information LI Montes APRN, BA RODRÍGUEZ no organization name - patient visit Work Phone: 08-19-2017 LI LOPEZ LI LOPEZ 08-19-2017 Emergency department no information LI PHANN (no [facility] - patient visit phone) [facility] 08-19-2017 (no phone) 06-08-2017 Emergency department no information MELISSA MARTINES PA [facility] - patient visit (no phone) [facility] 06-08-2017 (no phone) 05-29-2017 Emergency department no information SHAHANA MARTÍNEZ (no [facility] - patient visit phone) [facility] 05-29-2017 (no phone) 05-21-2017 Emergency department no information LI PHANN (no [facility] - patient visit phone) [facility] 05-21-2017 (no phone) 05-19-2017 Emergency department no information HONEY LANZA MD [facility] - patient visit (no phone) [facility] 05-19-2017 (no phone) 05-11-2017 Emergency department no information MELISSA Dubose [facility] IN [facility] - patient visit (no phone) [facility] 05-11-2017 (no phone) 04-06-2017 Emergency department no information MALIA JONES [facility] - patient visit (no phone) [facility] 04-06-2017 (no phone) 07-11-2016 Emergency department no information MELISSA ALCARAZ IN [facility] - patient visit (no phone) [facility] 07-11-2016 (no phone) 03-03-2016 Emergency department no information LI EVERETT (no [facility] - patient visit phone) [facility] 03-03-2016 (no phone) 05-02-2015 Evaluation and no information FINESSE DESAI MD (n o [facility] - management of phone) [facility] 05-04-2015 inpatient (no phone) 11-20-2013 Evaluation and [...] encounter no information HUMA LOZOYA (n o [facility] procedure phone) [facility] (no phone) 07-14-2019 Patient encounter no information LI LOPEZ FLY MAKER (no [facility] procedure phone) [facility] (no phone) 07-03-2019 Patient encounter no information LI LOPEZ FLY MAKER (no [facility] procedure phone) [facility] (no phone) 07-02-2019 Patient encounter no information LI LOPEZ FLY MAKER (no [facility] procedure phone) [facility] (no phone) 07-01-2019 Patient encounter no information MARISEL CRUZ (no [facility] procedure phone) [facility] (no 07-01-2019 phone) 06-24-2019 Patient encounter no information Alfredo Murray (no jermaine ne) [facility] - procedure STORMY SHAKEEL (no of [facility] (no 06-24-2019 phone) STORMY SHAKEEL phone) (no [...] encounter no information HUMA LOZOYA (n o [facility] [place] phone) (no phone) 10-05-2018 Telephone encounter no information HUMA LOZOYA (n o [facility] [place] - phone) (no phone) 10-05-2018 - 10-05-2018 09-30-2018 Telephone encounter Primary HUMA LOZOYA (no [facility] [place] - osteoarthritis, right phone) (no phon e) 09-30-2018 ankle and foot - 09-30-2018 Medical Equipment The data below is from unstructured sourcesNo Medical Equipment Information availableNo Medical Equipment Information availableNo Medical Equipment Information availableNo Medical Equipment Information a vailableNo Medical Equipment Information availableNo Medical Equipment Informati on availableNo Medical Equipment Information available Payers Normalized Payer Value Unknown no information ([id number]) Private Health Insurance no information Medicare no information ([id number]) Evaluation note Note Type Note Facility Evaluation No Assessments Information Available A scension note [facility] ([id number]) Advance Directives Directive Response Recor ded Date/Time Advance Directives No 3:37pm Health Care Power of Laborer Pipelines No 03/03/16 3:37pm Organ Donor No 03/03/16 3:37pm Resuscitation Status Full Code 03/03/16 3:37pm Directive Response Recor ded Date/Time Advance Directives No 5:28pm Health Care Power of Laborer Pipelines No 05/02/15 5:28pm Organ Donor No 05/02/15 3:18pm Resuscitation Status Full Code 05/02/15 5:28pm Directive Response Recor ded Date/Time Advance Directives No 4:26pm Health Care Power of Laborer Pipelines No 07/11/16 4:26pm Organ Donor No 07/11/16 4:26pm Resuscitation Status Full Code 07/11/16 4:26pm Directive Response Recor ded Date/Time Advance Directives Yes 0 10/02/13 5:44pm Health Care Power of Laborer Pipelines No 10/02/13 5:44pm Organ Donor No 10/02/13 5:44pm Resuscitation Status Full Code 10/02/13 5:44pm Directive Response Recor ded Date/Time Advance Directives No 11:30pm Health Care Power of Laborer Pipelines No 10/12/14 11:30pm Organ Donor No 11/19/13 8:57pm Resuscitation Status Full Code 11/19/13 11:30pm Directive Response Recor ded Date Advance Directives N 01/20 12:15pm Health Care Power of Laborer Pipelines N 07/20/12 12:15pm Organ Donor N 07/20/12 1 2:15pm Directive Response Recor ded Date/Time Advance Directives No 6:47pm Health Care Power of Laborer Pipelines No 04/06/17 6:47pm Organ Donor No 04/06/17 6:47pm Resuscitation Status Full Code 04/06/17 6:47pm Directive Response Recor ded Date/Time Advance Directives No 9:06pm Health Care Power of Laborer Pipelines No 05/21/17 9:06pm Organ Donor No 05/21/17 9:06pm Directive Response Recor ded Date/Time Advance Directives No 8:29pm Health Care Power of Laborer Pipelines No 06/08/17 8:29pm Organ Donor No 06/08/17 8:29pm Resuscitation Status Full Code 06/08/17 8:29pm Directive Response Recor ded Date/Time Advance Directives No 6:24pm Health Care Power of Laborer Pipelines No 08/19/17 6:24pm Organ Donor No 08/19/17 6:24pm Resuscitation Status Full Code 08/19/17 6:24pm Directive Response Recor ded Date/Time Advance Directives No 11:37am Health Care Power of Laborer Pipelines No 09/13/17 11:37am Organ Donor No 09/13/17 11:37am Directive Response Recor ded Date/Time Advance Directives No 11:37am Health Care Power of Laborer Pipelines No 09/13/17 11:37am Organ Donor No 09/13/17 11:37am Resuscitation Status Full Code 09/13/17 11:37am Directive Response Recor ded Date/Time Advance Directives No 12:17pm Health Care Power of Laborer Pipelines No 10/10/17 12:17pm Organ Donor No 10/10/17 12:17pm Resuscitation Status Full Code 10/10/17 12:17pm Directive Response Recor ded Date/Time Advance Directives No 3:30pm Health Care Power of Laborer Pipelines No 10/11/18 3:30pm Organ Donor No 10/11/18 3:30pm Advance Directive Response Recorded Date/Time Advance Directives No No [email or web address] 5:08pm Health Care Power of Laborer Pipelines No December 22, 2018 5:08pm Organ Donor No December 22, 2018 5:08pm Resuscitation Status Full Code December 22, 2018 5:08pm Advance Directive Response Recorded Date/Time Advance Directives No Ma 2019 3:35pm Health Care Power of Laborer Pipelines No July 02, 2019 3:35pm Organ Donor No July 02, 2019 3:35pm Resuscitation Status Full Code July 02, 2019 3:35pm Advance Directive Response Recorded Date/Time Advance Directives No Ma 2019 2:17pm Health Care Power of Laborer Pipelines No July 03, 2019 2:17pm Organ Donor No July 03, 2019 2:17pm Resuscitation Status Full Code July 03, 2019 2:17pm Advance Directive Response Recorded Date/Time Advance Directives No Ju 2019 5:53pm Health Care Power of Laborer Pipelines No July 14, 2019 5:53pm Organ Donor No July 14, 2019 5:53pm Resuscitation Status Full Code July 14, 2019 5:53pm Discharge Instructions No hospital discharge instructions. Patient Instructions Physician Instructions New, Converted or Re-Newed RX: Transmitted to Pharmacy Goal/Follow Up Appt: Follow up with Ms Last at [facility] on Friday 05/05 at 3pm. [facility] will call you for a follow up appointment with Dr Lozoya. Patient Instructions: please take all medicines as prescribed. Continue to work with your behavioral health case manager as you have been doing. [facility]: fever, shortness of breath, blood in sputum. Discharge Diet: No Restrictions Activity as Tolerated: Yes Care Plan Patient Instructions:: please take all medicines as prescribed. Continue to work with your autotransfusionist as you have been doing. Goal:: Follow up with Ms Last at [facility] on Friday 05/05at 3pm. [facility] will call you for a follow [...] Complaint General Problems/Joe n Reason for Visit [id number] Chief Complaint Substance Abuse Reason for Visit [id number] Additional Source Comments This clinical document has been generated using [employer] software that has been certified by the Office of the National Coordinator for Health Information Technology (ONC 15.99.04.3023.Diam.31.00.0.857452) and the National Committee for Camera Mechanic (NCQA, as an eMeasure certified technology). FOR [...] BASED ON T HE PRIMARY CLINICAL RECORDS. [employer]. provides no warranty or guara ntee of [...] BELOW FOR UNRECOGNIZED SECTION REASON FOR VISIT [id number]
--- OUTSIDE RECORDS SUMMARY | 2019-07-31 17:42 | XMS REPORT | Continuity of Care Document ---
Author Organization Unknown Address Unknown Phone Unavailable Allergies Active Description Code Type Severity Reaction Onset Reported/Identified Relationship to Patient Clinical Status Yes NO KNOWN DRUG ALLERGIES UNKNOWN NO KNOWN DRUG ALLERG Yes NO KNOWN DRUG ALLERGIES UNKNOWN UNKNOWN Yes No Known Drug Allergies [id number] Drug Allergy Unknown N/A 07/20/2012 Medications Medication [...] MD 465.9 Upper Respiratory Infection 04/01/2010 DWIGHT FABRICATOR FOAM RUBBER, APRIL A 30 5.1 NONDEPENDENT TOBACCO USE DISORDER 04/01/2010 DWIGHT FABRICATOR FOAM RUBBER, APRIL A 46 5.9 Upper Respiratory Infection 04/01/2010 DWIGHT FABRICATOR FOAM RUBBER, APRIL A 30 5.1 NONDEPENDENT TOBACCO USE DISORDER 04/01/2010 DWIGHT FABRICATOR FOAM RUBBER, APRIL A 46 5.9 Upper Respiratory Infection [...] SYNDROME 05/14/2010 HUMA LOZOYA MD V72.3 1 Soft Work Wrapper Examiner Exam, Routine 05/14/2010 BALDERRAMA DO, BERRY K 354.0 CARPAL TUNNEL SYNDROME 05/14/2010 BALDERRAMA DO, BERRY K V72.31 Soft Work Wrapper Examiner Exam, Routine 05/14/2010 BALDERRAMA DO, BERRY K 354.0 CARPAL TUNNEL SYNDROME 05/14/2010 BALDERRAMA DO, BERRY K V72.31 Soft Work Wrapper Examiner Exam, Routine 05/14/2010 HUMA LOZOYA MD 354.0 CARPAL TUNNEL SYNDROME 05/14/2010 HUMA LOZOYA MD V72.3 1 Soft Work Wrapper Examiner Exam, Routine 05/14/2010 354.0 CARP AL TUNNEL SYNDROME 05/14/2010 V72.31 Soft Work Wrapper Examiner Exam, Routine 05/14/2010 HUMA LOZOYA MD 354.0 CARPAL TUNNEL SYNDROME 05/14/2010 HUMA LOZOYA MD V72.3 1 Soft Work Wrapper Examiner Exam, Routine 05/14/2010 HUMA LOZOYA MD 354.0 CARPAL TUNNEL SYNDROME 05/14/2010 HUMA LOZOYA MD V72.3 1 Soft Work Wrapper Examiner Exam, Routine 05/14/2010 HUMA LOZOYA MD 354.0 CARPAL TUNNEL SYNDROME 05/14/2010 HUMA LOZOYA MD V72.3 1 Soft Work Wrapper Examiner Exam, Routine 05/14/2010 HUMA LOZOYA MD 354.0 CARPAL TUNNEL SYNDROME 05/14/2010 HUMA LOZOYA MD V72.3 1 Soft Work Wrapper Examiner Exam, Routine 05/14/2010 HUMA LOZOYA MD 354.0 CARPAL TUNNEL SYNDROME 05/14/2010 HUMA LOZOYA MD V72.3 1 Soft Work Wrapper Examiner Exam, Routine 05/14/2010 DWIGHT FABRICATOR FOAM RUBBER, APRIL A 35 4.0 CARPAL TUNNEL SYNDROME 05/14/2010 APRIL QUINTANILLA APRN V72.31 Soft Work Wrapper Examiner Exam, Routine 05/14/2010 DWIGHT FABRICATOR FOAM RUBBER, APRIL A 35 4.0 CARPAL TUNNEL SYNDROME 05/14/2010 APRIL QUINTANILLA APRN V72.31 Soft Work Wrapper Examiner Exam, Routine 05/14/2010 BALDERRAMA DO, BERRY K 354.0 CARPAL TUNNEL SYNDROME 05/14/2010 BERRY BALDERRAMA DO V72.31 Soft Work Wrapper Examiner Exam, Routine 05/14/2010 BERRY BALDERRAMA DO K 354.0 CARPAL TUNNEL SYNDROME 05/14/2010 BERRY BALDERRAMA DO V72.31 Soft Work Wrapper Examiner Exam, Routine 05/14/2010 HUMA LOZOYA MD 354.0 CARPAL TUNNEL SYNDROME 05/14/2010 HUMA LOZOYA MD V72.3 1 Soft Work Wrapper Examiner Exam, Routine 05/14/2010 HUMA LOZOYA MD 354.0 CARPAL TUNNEL SYNDROME 05/14/2010 HUMA LOZOYA MD V72.3 1 Soft Work Wrapper Examiner Exam, Routine 05/14/2010 ADDIS SPRINGER APRN 354.0 CARPAL TUNNEL SYNDROME 05/14/2010 ADDIS SPRINGER APRN V72.31 Soft Work Wrapper Examiner Exam, Routine 05/14/2010 HUMA LOZOYA MD 354.0 CARPAL TUNNEL SYNDROME 05/14/2010 HUMA LOZOYA MD V72.3 1 Soft Work Wrapper Examiner Exam, Routine 05/14/2010 HUMA LOZOYA MD 354.0 CARPAL TUNNEL SYNDROME 05/14/2010 HUMA LOZOYA MD V72.3 1 Soft Work Wrapper Examiner Exam, Routine 05/14/2010 354.0 CARP AL TUNNEL SYNDROME 05/14/2010 V72.31 Soft Work Wrapper Examiner Exam, Routine 05/14/2010 HUMA LOZOYA MD 354.0 CARPAL TUNNEL SYNDROME 05/14/2010 HUMA LOZOYA MD V72.3 1 Soft Work Wrapper Examiner Exam, Routine 06/09/2010 HUMA LOZOYA MD 381.8 [...] Alcoholism In Remission 08/12/2010 HMUA LOZOYA MD 305.7 3 NONDEPENDENT AMPHETAMINE OR [...] ABNORMALITY OF RED BLOOD CELLS 08/15/2010 DWIGHT FABRICATOR FOAM RUBBER, APRIL A 790.09 OTHER ABNORMALITY OF RED BLOOD CELLS 08/15/2010 DWIGHT FABRICATOR FOAM RUBBER, APRIL A 790.09 OTHER ABNORMALITY OF RED BLOOD CELLS 08/15/2010 JEOVANNY BALDERRAMA DOA K 790.09 OTHER ABNORMALITY OF RED BLOOD CELLS 08/15/2010 JEOVANNY BALDERRAMA DOA K 790.09 OTHER ABNORMALITY OF RED BLOOD CELLS 08/15/2010 HUMA LOZOYA MD 790.0 9 OTHER ABNORMALITY OF RED BLOOD CELLS 08/15/2010 HUMA LOZOYA MD 790.0 9 OTHER ABNORMALITY OF RED BLOOD CELLS 08/15/2010 SPRINGER FABRICATOR FOAM RUBBERADDIS A 790.09 OTHER ABNORMALITY OF RED BLOOD [...] 300.0 0 ANXIETY STATE UNSPECIFIED 08/20/2010 HUMA LOOZYA MD 300.0 0 ANXIETY STATE UNSPECIFIED 08/20/2010 HUMA LOZOYA MD 300.0 0 ANXIETY STATE UNSPECIFIED 08/20/2010 HUMA LOZOYA MD 300.0 0 ANXIETY STATE UNSPECIFIED 08/20/2010 DWIGHT FABRICATOR FOAM RUBBER, APRIL A 300.00 ANXIETY STATE UNSPECIFIED 08/20/2010 DWIGHT FABRICATOR FOAM RUBBER, APRIL A 300.00 ANXIETY STATE UNSPECIFIED 08/20/2010 BALDERRAMA DO, BERRY K 300.00 ANXIETY STATE UNSPECIFIED 08/20/2010 BALDERRAMA DO, BERRY K 300.00 ANXIETY STATE UNSPECIFIED 08/20/2010 HUMA LOZOYA MD 300.0 0 ANXIETY STATE UNSPECIFIED 08/20/2010 HUMA LOZOYA MD 300.0 0 ANXIETY STATE UNSPECIFIED 08/20/2010 SPRINGER FABRICATOR FOAM RUBBER, ADDIS A 300.00 ANXIETY STATE UNSPECIFIED 08/20/2010 [...] V58.6 9 MEDICATION HIGH RISK 01/18/2013 HUMA OLZOYA MD V58.6 9 MEDICATION HIGH RISK 01/18/2013 [...] A V76.10 BREAST CANCER SCREENING 04/17/2013 DWIGHT FABRICATOR FOAM RUBBER, APRIL A V76.51 COLON CANCER SCREENING 04/17/2013 DWIGHT FABRICATOR FOAM RUBBER APRIL A V82.81 SPECIAL SCREENING FOR OSTEOPOROSIS [...] 1 SPECIAL SCREENING FOR OSTEOPOROSIS 04/17/2013 SPRINGER FABRICATOR FOAM RUBBER ADDIS A V65.42 COUNSELING - SMOKING CESSATION 04/17/2013 SPRINGER FABRICATOR FOAM RUBBER ADDIS A V65.49 OTHER SPECIFIED COUNSELING 04/17/2013 SPRINGER FABRICATOR FOAM RUBBER, ADDIS A V76.10 BREAST CANCER SCREENING 04/17/2013 SPRINGER FABRICATOR FOAM RUBBER ADDIS A V76.51 COLON CANCER SCREENING 04/17/2013 SPRINGER FABRICATOR FOAM RUBBER, ADDIS A V82.81 SPECIAL SCREENING FOR OSTEOPOROSIS [...] MD F Ot V76.12 03/16/2014 DWIGHTAPRIL Tanner FABRICATOR FOAM RUBBER Ot 733.90 03/16/2014 DWIGHT APRIL A FABRICATOR FOAM RUBBER Ot V65.42 03/16/2014 DWIGHT, APRIL A FABRICATOR FOAM RUBBER Ot V65.49 03/16/2014 DWIGHT, APRIL A FABRICATOR FOAM RUBBER Ot V76.12 03/16/2014 JI QUINTANILLAIDI A FABRICATOR FOAM RUBBER Ot V76.51 03/16/2014 DWIGHT APRIL A FABRICATOR FOAM RUBBER Ot V82.81 03/19/2014 HUMA LOZOYA MD V76.1 [...] OTHER NONCOMPLIANCE WITH MEDIC 03/03/2016 LI LOPEZ FABRICATOR FOAM RUBBER Ot J44 .9 CHRONIC OBSTRUCTIVE PULMONARY DISEASE, [...] STATUS 03/03/2016 LI LOPEZ APRN Ot Z79.82 TELEPHONER (CURRENT) USE OF ASPIRIN 03/03/2016 LI LOPEZ APRN Ot Z79.899 OTHER TELEPHONER (CURRENT) DRUG THERAPY 03/03/2016 Ot V76.12 OTH SCREEN MAMMO- MALIGN NEOPLASM OF ETIENNE 03/03/2016 HUMA LOZOYA MD Ot V76.12 OTH SCREEN MAMMO-MALIGN NEOPLASM OF ETIENNE 03/03/2016 APRIL QUINTANILLA FABRICATOR FOAM RUBBER Ot 733.90 BONE CARTILAGE DIS NOS 03/03/2016 APRIL QUINTANILLA FABRICATOR FOAM RUBBER Ot V65.42 COUNSELING ON SUBSTANCE USE AND ABUSE 03/03/2016 APRIL QUINTANILLA FABRICATOR FOAM RUBBER Ot V65.49 OTHER SPECIFIED COUNSELING 03/03/2016 APRIL QUINTANILLA FABRICATOR FOAM RUBBER Ot V76.12 OTH SCREEN MAMMO-MALIGN NEOPLASM OF ETIENNE 03/03/2016 APRIL QUINTANILLA FABRICATOR FOAM RUBBER Ot V76.51 SCREEN MAL NEOP-COLON 03/03/2016 APRIL QUINTANILLA FABRICATOR FOAM RUBBER Ot V82.81 SCREENING FOR OSTEOPOROSIS 03/03/2016 Ot V76.12 OTH SCREEN MAMMO- MALIGN NEOPLASM OF ETIENNE 03/03/2016 HUMA LOZOYA MD Ot V76.12 OTH SCREEN MAMMO-MALIGN NEOPLASM OF ETIENNE 03/03/2016 APRIL QUINTANILLA A FABRICATOR FOAM RUBBER Ot 733.90 BONE CARTILAGE DIS NOS 03/03/2016 APRIL QUINTANILLA Jp FABRICATOR FOAM RUBBER Ot V65.42 COUNSELING ON SUBSTANCE USE AND ABUSE 03/03/2016 DWIGHTJIAPRIL A FABRICATOR FOAM RUBBER Ot V65.49 OTHER SPECIFIED COUNSELING 03/03/2016 APRIL QUINTANILLA FABRICATOR FOAM RUBBER Ot V76.12 OT SCREEN MAMMO-MALIGN NEOPLASM OF ETIENNE 03/03/2016 DWIGHTJIAPRIL A FABRICATOR FOAM RUBBER Ot V76.51 SCREEN MAL NEOP-COLON 03/03/2016 DWIGHTJIAPRIL A FABRICATOR FOAM RUBBER Ot V82.81 SCREENING FOR OSTEOPOROSIS 03/04/2016 LI LOPEZ APRN Ot J44 .9 CHRONIC OBSTRUCTIVE PULMONARY DISEASE, U 03/04/2016 LI LOPEZ APRN Ot S82.401A UNSP FRACTURE OF SHAFT OF RIGHT FIBULA, 03/04/2016 LI LOPEZ APRN Ot S99.911A UNSPECIFIED INJURY OF RIGHT ANKLE, INITI 03/04/2016 LI LOPEZ APRN Ot X58.XXXA EXPOSURE TO OTHER SPECIFIED FACTORS, INI 03/04/2016 LI LOPEZ APRN Ot Y92.[address] IN [facility] NON-INSTITUT (PRIVATE 03/04/2016 LI LOPEZ APRN Ot Y99 .8 OTHER EXTERNAL CAUSE STATUS 03/04/2016 LI LOPEZ APRN Ot Z79.82 TELEPHONER (CURRENT) USE OF ASPIRIN 03/04/2016 LI LOPEZ APRN Ot Z79.899 OTHER TELEPHONER (CURRENT) DRUG THERAPY 03/05/2016 LI LOPEZ APRN Ot J44 .9 CHRONIC OBSTRUCTIVE PULMONARY DISEASE, U 03/05/2016 LI LOPEZ APRN Ot S82.401A UNSP FRACTURE OF SHAFT OF RIGHT FIBULA, 03/05/2016 LI LOPEZ APRN Ot S99.911A UNSPECIFIED INJURY OF RIGHT ANKLE, INITI 03/05/2016 LI LOPEZ APRN Ot X58.XXXA EXPOSURE TO OTHER SPECIFIED FACTORS, INI 03/05/2016 LI LOPEZ APRN Ot Y92.[address] IN [facility] NON-INSTIT[facility] (PRIVATE 03/05/2016 LI LOPEZ APRN Ot Y99 .8 OTHER EXTERNAL CAUSE STATUS 03/05/2016 LI LOPEZ APRN Ot Z79.82 [facility]IVING (CURRENT) USE OF ASPIRIN 03/05/2016 LI LOPEZ APRN Ot Z79.899 OTHER TELEPHONER (CURRENT) DRUG THERAPY 07/11/2016 MELISSA GARCIA Ot F10.129 ALCOHOL ABUSE WITH INTOXICATION, UNSPECI 07/11/2016 MELISSA GARCIA Ot F17.210 NICOTINE DEPENDENCE, CIGARETTES, UNCOMPL 07/11/2016 MELISSA GARCIA Ot J44.9 CHRONIC OBSTRUCTIVE PULMONARY DISEASE, U 07/11/2016 MELISSA GARCIA Ot Y90.6 BLOOD ALCOHOL LEVEL OF 120-199 MG/100 ML 07/11/2016 MELISSA GARCIA Ot Z79.82 [facility]IV[facility] (CURRENT) USE OF ASPIRIN 07/11/2016 MELISSA GARCIA Ot Z79.899 OTHER [facility]IV[facility] (CURRENT) DRUG THERAPY 04/06/2017 MALIA JOLLY MD [...] FACTORS, INI 04/06/2017 MELISSA GARCIA Ot Z79.82 [facility]IVING (CURRENT) USE [...] R 04/08/2017 MALIA JOLLY MD Ot Z79.82 [facility]IV[facility] (CURRENT) USE OF ASPIRIN 04/08/2017 MALIA JOLLY [...] FACTORS, INI 04/08/2017 MELISSA GARCIA Ot Z79.82 [facility] (CURRENT) USE OF ASPIRIN 04/08/2017 MELISSA GARCIA [...] NEOPLASM OF ETIENNE 05/19/2017 DWIGHT, APRIL A FABRICATOR FOAM RUBBER Ot 733.90 BONE CARTILAGE DIS NOS 05/19/2017 APRIL QUINTANILLA FABRICATOR FOAM RUBBER Ot V65.42 COUNSELING ON SUBSTANCE USE AND ABUSE 05/19/2017 JI QUINTANILLAIDI A FABRICATOR FOAM RUBBER Ot V65.49 OTHER SPECIFIED COUNSELING 05/19/2017 JI QUINTANILLAIDI Jp FABRICATOR FOAM RUBBER Ot V76.12 OTH SCREEN MAMMO-MALIGN NEOPLASM OF ETIENNE 05/19/2017 APRIL QUINTANILLA FABRICATOR FOAM RUBBER Ot V76.51 SCREEN MAL NEOP-COLON 05/19/2017 JI QUINTANILLAIDI A FABRICATOR FOAM RUBBER Ot V82.81 SCREENING FOR OSTEOPOROSIS 05/19/2017 MELISSA [...] MAMMO-MALIGN NEOPLASM OF ETIENNE 05/19/2017 APRIL QUINTANILLA FABRICATOR FOAM RUBBER Ot 733.90 BONE CARTILAGE DIS NOS 05/19/2017 JI QUINTANILLAIDI A FABRICATOR FOAM RUBBER Ot V65.42 COUNSELING ON SUBSTANCE USE AND ABUSE 05/19/2017 JI QUINTANILLAIDI A FABRICATOR FOAM RUBBER Ot V65.49 OTHER SPECIFIED COUNSELING 05/19/2017 DWIGHTAPRIL FABRICATOR FOAM RUBBER Ot V76.12 OTH SCREEN MAMMO-MALIGN NEOPLASM OF ETIENNE 05/19/2017 APRIL QUINTANILLA FABRICATOR FOAM RUBBER Ot V76.51 SCREEN MAL NEOP-COLON 05/19/2017 APRIL QUINTANILLA FABRICATOR FOAM RUBBER Ot V82.81 SCREENING FOR OSTEOPOROSIS 05/19/2017 MELISSA GARCIA Ot R06.02 SHORTNESS OF BREATH 05/20/2017 Ot V76.12 OTH SCREEN MAMMO- MALIGN NEOPLASM OF ETIENNE 05/20/2017 HUMA LOZOYA MD Ot V76.12 OTH SCREEN MAMMO-MALIGN NEOPLASM OF ETIENNE 05/20/2017 DWIGHT, APRIL A FABRICATOR FOAM RUBBER Ot 733.90 BONE CARTILAGE DIS NOS 05/20/2017 APRIL QUINTANILLA FABRICATOR FOAM RUBBER Ot V65.42 COUNSELING ON SUBSTANCE USE AND ABUSE 05/20/2017 APRIL QUINTANILLA FABRICATOR FOAM RUBBER Ot V65.49 OTHER SPECIFIED COUNSELING 05/20/2017 APRIL QUINTANILLA FABRICATOR FOAM RUBBER Ot V76.12 OTH SCREEN MAMMO-MALIGN NEOPLASM OF ETIENNE 05/20/2017 APRIL QUINTANILLA FABRICATOR FOAM RUBBER Ot V76.51 SCREEN MAL NEOP-COLON 05/20/2017 APRIL QUINTANILLA FABRICATOR FOAM RUBBER Ot V82.81 SCREENING FOR OSTEOPOROSIS 05/21/2017 ASHLYN PINEDO, HONEY Donaldson Ot M79.609 PAIN IN UNSPECIFIED LIMB 05/21/2017 ASLHYN PINEDO, HONEY Donaldson Ot R06.02 SHORTNESS OF [...] .9 CHRONIC OBSTRUCTIVE PULMONARY DISEASE, U 05/21/2017 IL LOPEZ APRN Ot R06.02 SHORTNESS OF BREATH 05/21/2017 LI LOPEZ APRN Ot Z79.82 TELEPHONER (CURRENT) USE OF ASPIRIN 05/21/2017 LI LOPEZ [...] BREATH 05/24/2017 LI LOPEZ APRN Ot Z79.82 TELEPHONER (CURRENT) USE OF ASPIRIN 05/24/2017 LI LOPEZ APRN Ot Z80 .8 FAMILY HISTORY OF MALIGNANT NEOPLASM OF 05/24/2017 LI LOPEZ APRN Ot Z87.448 PERSONAL HISTORY OF OTHER DISEASES OF UR 05/24/2017 LI LOPEZ APRN Ot Z91 .5 PERSONAL HISTORY OF SELF-HARM 05/29/2017 SHAHANA ROSENTHALP Ot F10.129 ALCOHOL ABUSE WITH INTOXICATION, UNSPECI 05/29/2017 ARIADNA, SHAHANA Z OS MAINFRAME SYSTEMS PROGRAMMER Ot F12.90 CANNABIS USE, UNSPECIFIED, UNCOMPLICATED 05/29/2017 ARIADNA, SHAHANA Z OS MAINFRAME SYSTEMS PROGRAMMER Ot F31.9 BIPOLAR DISORDER, UNSPECIFIED 05/29/2017 ARIADNA, SHAHANA Z OS MAINFRAME SYSTEMS PROGRAMMER Ot F41.9 ANXIETY DISORDER, UNSPECIFIED 05/29/2017 ARIADNA, SHAHANA Z OS MAINFRAME SYSTEMS PROGRAMMER Ot G47.30 SLEEP APNEA, UNSPECIFIED 05/29/2017 ARIADNA, SHAHANA Z OS MAINFRAME SYSTEMS PROGRAMMER Ot G47.9 SLEEP DISORDER, UNSPECIFIED 05/29/2017 ARIADNA, SHAHANA Z OS MAINFRAME SYSTEMS PROGRAMMER Ot J44.9 CHRONIC OBSTRUCTIVE PULMONARY DISEASE, U 05/29/2017 ARIADNA SHAHANA Z OS MAINFRAME SYSTEMS PROGRAMMER Ot R06.02 SHORTNESS OF BREATH 05/29/2017 ARIADNA SHAHANA Z OS MAINFRAME SYSTEMS PROGRAMMER Ot Z77.22 CNTCT W AND EXPSR TO ENVIRON TOBACCO SMO 05/29/2017 ARIADNA SHAHANA Z OS MAINFRAME SYSTEMS PROGRAMMER Ot Z79.82 TELEPHONER (CURRENT) USE OF ASPIRIN 05/29/2017 ARIADNA SHAHANA Z OS MAINFRAME SYSTEMS PROGRAMMER Ot Z87.81 PERSONAL HISTORY OF (HEALED) TRAUMATIC F 05/29/2017 ARIADNA SHAHANA Z OS MAINFRAME SYSTEMS PROGRAMMER Ot Z91.5 PERSONAL HISTORY OF SELF-HARM 06/08/2017 [...] DISEASE, U 06/08/2017 MELISSA GARCIA Ot Z79.82 TELEPHONER (CURRENT) USE OF ASPIRIN 06/08/2017 MELISSA GARCIA [...] DISEASE, U 06/10/2017 MELISSA GARCIA Ot Z79.82 TELEPHONER (CURRENT) USE OF ASPIRIN 06/10/2017 MELISSA GARCIA Ot Z80.8 FAMILY HISTORY OF MALIGNANT NEOPLASM OF 06/10/2017 MELISSA GARCIA Ot Z91.5 PERSONAL HISTORY OF SELF-HARM 08/19/2017 LI LOPEZ APRN Ot F10.229 ALCOHOL DEPENDENCE WITH INTOXICATION, UN 08/19/2017 LI LOPEZ FABRICATOR FOAM RUBBER Ot F12.10 CANNABIS ABUSE, UNCOMPLICATED 08/19/2017 LI [...] SMO 08/19/2017 LI LOPEZ APRN Ot Z79.82 TELEPHONER (CURRENT) USE OF ASPIRIN 08/19/2017 LI LOPEZ APRN Ot Z80 .8 FAMILY HISTORY OF MALIGNANT NEOPLASM OF 08/19/2017 LI LOPEZ APRN Ot Z91 .5 PERSONAL HISTORY OF SELF-HARM 08/23/2017 LI LOPEZ APRN Ot F10.229 ALCOHOL DEPENDENCE WITH INTOXICATION, UN 08/23/2017 IL LOPEZ APRN Ot F12.10 CANNABIS ABUSE, UNCOMPLICATED [...] SMO 08/23/2017 LI LOPEZ APRN Ot Z79.82 [facility] (CURRENT) USE OF ASPIRIN 08/23/2017 LI LOPEZ [...] SLE EP APNEA, UNSPECIFIED 09/13/2017 Ot J44.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] TOBACCO SMO 07/05/2018 JENIFER MULLINS Ot Z79.82 [facility] (CURRENT) USE OF ASPIRIN 07/05/2018 JENIFER MULLINS [...] SMO 07/06/2018 LI LOPEZ APRN Ot Z79.82 TELEPHONER (CURRENT) USE OF ASPIRIN 07/06/2018 LI LOPEZ [...] TOBACCO SMO 07/13/2018 JENIFER MULLINS Ot Z79.82 TELEPHONER (CURRENT) USE OF ASPIRIN 07/13/2018 MARINA MULLINSIS [...] PLACE OF OCCURRENCE OF T 07/18/2018 MARINA MLULINSIS Ot Z77.22 CNTCT W AND EXPSR TO ENVIRON TOBACCO SMO 07/18/2018 HARPREET JENIFER Ot Z79.82 [facility] (CURRENT) USE OF ASPIRIN 07/18/2018 TIANDANE JENIFER [...] 09/09/2018 TANNA LOPEZ MD Ot Z79. 82 TELEPHONER (CURRENT) USE OF ASPIRIN 09/09/2018 TANNA LOPEZ [...] 09/13/2018 TANNA LOPEZ MD Ot Z79. 82 [facility] (CURRENT) USE OF ASPIRIN 09/13/2018 TANNA LOPEZ [...] SMO 10/11/2018 LI LOPEZ APRN Ot Z79.82 [facility] (CURRENT) USE OF ASPIRIN 10/11/2018 LI LOPEZ [...] SMO 10/14/2018 LI LOPEZ APRN Ot Z79.82 TELEPHONER (CURRENT) USE OF ASPIRIN 10/14/2018 LI LOPEZ [...] Z72.0 TOBACCO USE 07/02/2019 LOPEZ, LI Montes FABRICATOR FOAM RUBBER Ot F10.20 ALCOHOL DEPENDENCE, UNCOMPLICATED 07/02/2019 LOPEZ, LI Montes FABRICATOR FOAM RUBBER Ot F31 .9 BIPOLAR DISORDER, UNSPECIFIED 07/02/2019 LOPEZ, LI Montes APRN Ot F41 .9 ANXIETY DISORDER, UNSPECIFIED 07/02/2019 LOPEZLI FABRICATOR FOAM RUBBER Ot Z77.22 CNTCT W AND EXPSR TO ENVIRON TOBACCO SMO 07/02/2019 LOPEZ, LI Montes FABRICATOR FOAM RUBBER Ot Z79.82 TELEPHONER (CURRENT) USE OF ASPIRIN 07/02/2019 LOPEZ, LI Montes FABRICATOR FOAM RUBBER Ot Z80 .8 FAMILY HISTORY OF MALIGNANT NEOPLASM OF 07/03/2019 JOHN, LI Montes FABRICATOR FOAM RUBBER Ot F10.129 ALCOHOL ABUSE WITH INTOXICATION, UNSPECI 07/03/2019 LOPEZ, LI Montes FABRICATOR FOAM RUBBER Ot F10.229 ALCOHOL DEPENDENCE WITH INTOXICATION, UN [...] EXPSR TO ENVIRON TOBACCO SMO 07/03/2019 LOPEZLI FABRICATOR FOAM RUBBER Ot Z79.82 [facility]IV[facility] (CURRENT) USE OF ASPIRIN 07/03/2019 LOPEZLI FABRICATOR FOAM RUBBER Ot Z80 .8 FAMILY HISTORY OF MALIGNANT NEOPLASM OF 07/05/2019 LOPEZ, LI Montes FABRICATOR FOAM RUBBER Ot F10.20 ALCOHOL DEPENDENCE, UNCOMPLICATED 07/05/2019 LOPEZ, LI Montes APRN Ot F31 .9 BIPOLAR DISORDER, UNSPECIFIED 07/05/2019 LOPEZLI FABRICATOR FOAM RUBBER Ot F41 .9 ANXIETY DISORDER, UNSPECIFIED 07/05/2019 LOPEZLI FABRICATOR FOAM RUBBER Ot Z77.22 CNTCT W AND EXPSR TO ENVIRON TOBACCO SMO 07/05/2019 LOPEZ, LI Montes FABRICATOR FOAM RUBBER Ot Z79.82 TELEPHONER (CURRENT) USE OF ASPIRIN 07/05/2019 LI LOPEZ FABRICATOR FOAM RUBBER Ot Z80 .8 FAMILY HISTORY OF MALIGNANT NEOPLASM OF 07/11/2019 LOPEZ, LI Montes FABRICATOR FOAM RUBBER Ot F10.129 ALCOHOL ABUSE WITH INTOXICATION, UNSPECI 07/11/2019 LOPEZ, LI Montes FABRICATOR FOAM RUBBER Ot F10.229 ALCOHOL DEPENDENCE WITH INTOXICATION, UN 07/11/2019 LOPEZ, LI Montes APRN Ot F31 .9 BIPOLAR DISORDER, UNSPECIFIED 07/11/2019 LOPEZ, LI Montes APRN Ot F41 .9 ANXIETY DISORDER, UNSPECIFIED 07/11/2019 LOPEZ, LI Montes FABRICATOR FOAM RUBBER Ot G89.29 OTHER CHRONIC PAIN 07/11/2019 LOPEZ, LI Montes FABRICATOR FOAM RUBBER Ot M54 .9 DORSALGIA, UNSPECIFIED 07/11/2019 LOPEZ, LI Montes FABRICATOR FOAM RUBBER Ot Z77.22 CNTCT W AND EXPSR TO ENVIRON TOBACCO SMO 07/11/2019 LOPEZ, LI Montes FABRICATOR FOAM RUBBER Ot Z79.82 [facility] (CURRENT) USE OF ASPIRIN 07/11/2019 LOPEZ, LI Montes FABRICATOR FOAM RUBBER Ot Z80 .8 FAMILY HISTORY OF MALIGNANT NEOPLASM OF 07/14/2019 LOPEZ, LI Montes APRN Ot F10.20 ALCOHOL DEPENDENCE, UNCOMPLICATED 07/14/2019 LOPEZ, LI Montes APRN Ot F31 .9 BIPOLAR DISORDER, UNSPECIFIED 07/14/2019 LOPEZ, LI Montes APRN Ot F41 .9 ANXIETY DISORDER, UNSPECIFIED 07/14/2019 LOPEZ, LI Montes FABRICATOR FOAM RUBBER Ot G89.29 OTHER CHRONIC PAIN 07/14/2019 LOPEZ, LI Montes APRN Ot M54 .9 DORSALGIA, UNSPECIFIED 07/14/2019 LOPEZ, LI Montes APRN Ot Z77.22 CNTCT W AND EXPSR TO ENVIRON TOBACCO SMO 07/14/2019 LOPEZ, LI Montes FABRICATOR FOAM RUBBER Ot Z79.82 [facility] (CURRENT) USE OF ASPIRIN 07/14/2019 LOPEZ, LI Montes FABRICATOR FOAM RUBBER Ot Z80 .8 FAMILY HISTORY OF MALIGNANT NEOPLASM OF 07/17/2019 LOPEZ, LI Montes FABRICATOR FOAM RUBBER Ot F10.20 ALCOHOL DEPENDENCE, UNCOMPLICATED 07/17/2019 LOPEZ, LI Montes APRN Ot F31 .9 BIPOLAR DISORDER, UNSPECIFIED 07/17/2019 LOPEZ, LI Montes FABRICATOR [employer] RU[employer]ER Ot F41 .9 ANXIETY DISORDER, UNSPECIFIED 07/17/2019 LOPEZ, LI Montes FABRICATOR FOAM RUBBER Ot G89.29 OTHER CHRONIC PAIN 07/17/2019 LOPEZ, LI Montes FABRICATOR FOAM RUBBER Ot M54 .9 DORSALGIA, UNSPECIFIED 07/17/2019 LI LOPEZ APRN Ot Z77.22 CNTCT W AND EXPSR TO ENVIRON TOBACCO SMO 07/17/2019 LI LOPEZ APRN Ot Z79.82 SENIOR LIVING (CURRENT) USE OF ASPIRIN 07/17/2019 LI LOPEZ APRN Ot Z80 .8 FAMILY HISTORY OF MALIGNANT NEOPLASM OF Procedures Code Description Performed By Per formed On Psychiatr [facility] 10/09/2011 48261 UA W / CULTURE IF INDICATED 02/19/2012 75719 ROUT INE VENIPUNCTURE 02/22/2012 68537 CBC 02/22/2012 57814 LIPI D PANEL 02/22/2012 00781 CMP 02/22/2012 [id number] GF R CALC (RESULT ONLY) 02/22/2012 73187 TSH 02/23/2012 20009 MAMM OGRAM, SCREENING 02/23/2012 55241 HEMOCCULT 02/23/2012 26909 PAP SMEAR 02/23/2012 Q0091 PAP SMEAR OBTAIN SMEAR 02/23/2012 81531 URIN E DRUG SCREEN (IN-HOUSE) 01/18/2013 44221 MAMM OGRAM, SCREENING 01/19/2013 URINEDRUG URINE DRUG SCREEN (CON'F) 01/19/2013 64417 BONE DENSITY, DEXA 04/17/2013 GENERAL S Kido, Ken 04/17/2013 89269 BONE MINERAL DENSITY, HEEL US (IN HOUSE) 04/17/2013 17530 XRAY CERVICAL SPINE, 2 OR 3 VIEWS 06/02/2013 03440 ROUT INE VENIPUNCTURE 02/16/2014 65771 MAMM OGRAM, SCREENING 02/16/2014 [id number] GF R CALC (RESULT ONLY) 02/16/2014 61359 CMP 02/16/2014 Results Test Result Range Complete [...] 7-25 CREATININE 0.52 mg/dL 0.50-0.99 eGFR NON-AFR. [place] 101 mL/min/1.73m2 > OR = 60 eGFR [...] NEGATIVE NEGATIVE Tricyclic Antidepressant NEGATIVE NEGAT [facility] - 06/24/19 17:00 Mycoplasma Positive Negative [...] Status Pt. Type Provider Facility Loc./Unit Complaint [id number] 07/01/2019 15:46:00 07/01/2019 17:20 :00 DIS Outpatient Jakob [facility] [id number] 06/24/2019 16:24:00 06/24/2019 18:30 :00 DIS Outpatient ZHOU BECKFORD APRN [facility] ER [id number] 01/02/2019 12:21:00 01/02/2019 14:20: 00 [id number]/11/2018 14:55:00 12/11/2018 23:59: 59 CLS Outpatient ZHOU BECKFORD APRN [facility] ER [id number] 08/02/2018 18:29:00 08/02/2018 20:30: 00 [id number]/2017 16:17:00 10/03/2017 19:00: 00 DIS Outpatient ALICIA YAP [facility] ER [id number] 08/02/2018 18:41:14 Document Registration [id number] 07/31/2019 14:46:00 15:17:00 DIS Inpatient YANN PINEDO, DANICA Tanner [facility] 4TH INTOXICATION;SUICIDAL [id number] 07/14/2019 17:49:00 18:09:00 DIS Emergency LI LOPEZ FABRICATOR [employer] RUBBER [facility] ER PSYCH EVAL [id number] 07/03/2019 14:12:00 14:21:00 DIS Emergency LI LOPEZ FABRICATOR [employer]AM RUBBER [facility] ER INTOXICATED [id number] 07/02/2019 15:32:00 15:50:00 DIS Emergency LI LOPEZ FABRICATOR [employer]AM RUBBER [facility] ER ETOH [id number] 12/22/2018 15:48:00 17:20:00 DIS Emergency TANNA LOPEZ MD [facility] ER ETOH [id number] 12/16/2018 09:07:00 23:59:59 CLS Preadmit DEVORA PINEDO, HUMA Sparks [facility] RAD SCREENING [id number] 10/12/2018 13:23:00 13:30:00 DIS Emergency RIK PINEDO, MALIA Atkins [facility] ER ILL [id number] 10/11/2018 15:18:00 15:32:00 DIS Emergency LI LOPEZ APRN [facility] ER ETOH [id number] 09/09/2018 19:00:00 20:45:00 DIS Emergency TANNA LOPEZ MD [facility] ER FALL [id number] 07/13/2018 17:16:00 19:38:00 DIS Emergency BERNOT, JENIFER [facility] ER R ANKLE PAIN [id number] 06/30/2018 19:44:00 20:07:00 DIS Emergency LI LOPEZ APRN [facility] ER ETOH [id number] 06/30/2018 18:56:00 19:02:00 DIS Emergency AMBER MCKEON DO Vi [facility] ER RESPIRATORY ISSUES [id number] 06/29/2018 20:32:00 23:16:00 DIS Emergency BERNOT, JENIFER [facility] ER FALL [id number] 10/12/2017 15:37:00 018 16:02:00 DIS Emergency BERNOT, JENIFER [facility] ER ETOH [id number] 10/10/2017 12:17:00 018 14:11:00 DIS Emergency BERNOT, JENIFER [facility] ER SOB/ETOH [id number] 08/19/2017 18:05:00 018 18:55:00 DIS Emergency LI LOPEZ FABRICATOR FOAM RUBBER [facility] [facility] ER SOB/ETOH DETOX [id number] 06/08/2017 20:29:00 018 21:10:00 DIS Emergency MELISSA GARCIA [facility] ER SOA [id number] 05/29/2017 16:55:00 18:10:00 DIS Emergency SHAHANA ROSENTHAL Via [facility] ER SOA [id number] 05/21/2017 21:00:00 018 22:16:00 DIS Emergency LI LOPEZ FABRICATOR FOAM RUBBER Via [facility] ER SOB [id number] 05/19/2017 17:05:00 018 17:31:00 DIS Emergency HONEY GOLDBERG MD Via [facility] ER SOA [id number] 05/11/2017 21:12:00 018 21:57:00 DIS Emergency MELISSA GARCIA [facility] ER SOA [id number] 04/06/2017 18:38:00 018 20:05:00 DIS Emergency MELISSA GARCIA [facility] ER ANKLE PAIN [id number] 04/06/2017 12:39:00 018 15:08:00 DIS Emergency MALIA JOLLY MD Via [facility] ER DRUG/ETOH ABUSE [id number] 07/11/2016 16:09:00 017 19:12:00 DIS Emergency MELISSA GARCIA [facility] ER ALCOHOL INTOX [id number] 03/03/2016 15:38:00 017 16:45:00 DIS Emergency LI LOPEZ APRN [facility] ER R ANKLE PAIN [id number] 05/02/2015 16:39:00 016 13:14:00 DIS Inpatient FINESSE MOY MD Via [facility] 4TH RLL PNUEMONIA [id number] 11/19/2013 22:15:00 014 10:50:00 DIS Inpatient DANICA LERNER MD [facility] ICU ETOH INTOXICATION, AMS [id number] 10/02/2013 15:43:00 014 14:03:00 DIS Inpatient TACOS LEDESMA, BERRY Orona ia [facility] ICU SUICIDAL/HOMICIDAL IDEA TION, ETOH INTOXICATION [id number] 04/27/2013 09:25:00 23:59:59 CLS Outpatient DWIGHTAPRIL ABDALLA APRN [facility] RAD OSTEOPENIA [id number] 03/06/2013 10:54:00 23:59:59 CLS Outpatient HUMA LOZOYA MD [facility] RAD SCREENING [id number] 11/14/2012 15:16:00 23:59:59 CLS Outpatient [id number] 09/19/2012 13:31:00 23:59:59 CLS Outpatient [id number] 08/22/2012 15:17:00 23:59:59 CLS Outpatient [id number] 08/04/2012 14:36:00 23:59:59 CLS Outpatient [id number] 07/20/2012 12:07:00 13:45:00 DIS Emergency FRANCISCO ACEVEDO DO [facility] ER FELL INJ L ARM [id number] 09/13/2017 18:51:00 Document Registration [id number] 09/13/2017 11:13:00 Document Registration [id number] 03/16/2014 10:56:00 Document Registration [id number] 03/04/2012 10:23:00 Document Registration [id number] 01/13/2013 16:48:57 ACT Document Registration [id number] 02/16/2014 11:31:00 02/16/2014 23:59: 59 CLS Outpatient HUMA LOZOYA MD [id number] 12/02/2013 06:43:00 12/02/2013 23:59: 59 CLS Outpatient HUMA LOZOYA MD [id number] 11/27/2013 11:19:00 11/27/2013 23:59: 59 CLS Outpatient HUAM LOZOYA MD [id number] 10/30/2013 12:59:00 10/30/2013 23:59: 59 CLS Outpatient ADDIS SPRINGER APRN [id number] 09/18/2013 13:40:00 09/18/2013 23:59: 59 CLS Outpatient HUMA LOZOYA MD [id number] 07/25/2013 16:53:00 07/25/2013 23:59: 59 CLS Outpatient HUMA LOZOYA MD [id number] 06/02/2013 11:36:00 06/02/2013 23:59: 59 CLS Outpatient BERRY BALDERRAMA DO [id number] 06/02/2013 11:36:00 06/02/2013 23:59: 59 CLS Outpatient BERRY BALDERRAMA DO [id number] 04/17/2013 10:34:00 04/17/2013 23:59: 59 CLS Outpatient APRIL QUINTANILLA APRN Jp [id number] 04/17/2013 10:34:00 04/17/2013 23:59: 59 CLS Outpatient DWIGHT FAIRCHILDJIAPRIL A [id number] 03/02/2013 13:45:00 03/02/2013 23:59: 59 CLS Outpatient HUMA LOZOYA MD [id number] 03/02/2013 13:45:00 03/02/2013 23:59: 59 CLS Outpatient HUMA LOZOYA MD [id number] 01/18/2013 14:08:00 01/18/2013 23:59: 59 CLS Outpatient HUMA LOZOYA MD [id number] 12/19/2012 11:31:00 12/19/2012 23:59: 59 CLS Outpatient HUMA LOZOYA MD [id number] 09/29/2012 16:24:00 09/29/2012 23:59: 59 CLS Outpatient HUMA LOZOYA MD [id number] 03/28/2012 11:42:00 03/28/2012 23:59: 59 CLS Outpatient HUMA LOZOYA MD [id number] 02/22/2012 09:43:00 02/22/2012 23:59: 59 CLS Outpatient BERRY BALDERRAMA DO [id number] 02/19/2012 13:27:00 02/19/2012 23:59: 59 FLOYD Outpatient BERRY BALDERRAMA DO [id number] 10/02/2011 09:36:00 10/02/2011 23:59: 59 C[place]patient [place]OYA [place] [id number] 10/02/2011 09:36:00 10/02/2011 23:59:5 9 CLS Outpatient [id number] 06/24/2012 13:29:00 Document Registration [id number] 07/17/2019 13:40:00 07/17/2019 23:59: 59 CLS Outpatient HUMA LOZOYA MD [facility] [id number] 07/17/2019 13:40:00 Document Registration [id number] 12/15/2018 10:40:00 Document Registration
== END 2019-07-31 15:17 | disposition left against medical advice (07) ==
LOC: EDUNIT# 13:21 → ER 13:22 → UNDOADMOB 14:46 → 4TH 14:46 → UNDODISOB 15:17
PROVIDERS: ADMIT Family Medicine; ATTEND Family Medicine
DX: F10.920 Alcohol use, unspecified with intoxication, uncomplicated (principal); R45.851 Suicidal ideations; F17.210 Nicotine dependence, cigarettes, uncomplicated; J44.9 Chronic obstructive pulmonary disease, unspecified; M19.90 Unspecified osteoarthritis, unspecified site; G89.29 Other chronic pain; M54.9 Dorsalgia, unspecified; F41.9 Anxiety disorder, unspecified; F32.9 Major depressive disorder, single episode, unspecified; Z79.82 Long term (current) use of aspirin; Z79.891 Long term (current) use of opiate analgesic; Z79.899 Other long term (current) drug therapy
CPT/HCPCS: 80053; 80306; 81000; 85025; 87088; 93005; 93041; 99283; G0480 ×3; 36415; 80320; 80329

== ENCOUNTER 2019-10-03 15:31 | Emergency (ER) | payer MEDICARE, MEDICAID ==
--- NOTE | 2019-10-03 15:58 | NUR ---
WENT TO WAITING ROOM TO CALL PATIENT BACK. PT CRYING AND STATING THAT SHE DOESNT WANT TO BE SEEN, SHE WANTS TO JUST GO HOME. THIS RN PROVIDED EDUCATION, PT STATES SHE DOES NOT WANT TO BE SEEN AND WILL JUST GO HOME.
== END 2019-10-03 15:58 | disposition left against medical advice (07) ==
LOC: EDUNIT# 15:31 → ER 15:32
DX: F10.129 Alcohol abuse with intoxication, unspecified (principal)

== ENCOUNTER 2019-10-25 17:12 | Emergency (ER) | payer MEDICARE, MEDICAID ==
[~2019-10-25] VITALS: Ht 152.4 cm; Wt 50.0 kg
[2019-10-25] MEDS ORDERED: diphenhydrAMINE 25 MG TAB (BENADRYL) PO ONE (17:45)
--- NOTE | 2019-10-25 17:45 | ED General ---
General Chief Complaint: General Problems/Pain Stated Complaint: TIREDNESS Nursing Triage Note: Pt ambulates from ems with c/o being tired. Pt reports throughout this day, she drank a 12 pack of Natural Light et is now feeling tired. Pt states, "sissy im an alcoholic." Pt denies pain or discomfort. Nursing Sepsis Screen: No Definite Risk Source of Information: Patient Exam Limitations: No Limitations History of Present Illness Date Seen by Provider: Oct 25, 2019 Time Seen by Provider: 17:43 Initial Comments ER by EMS from home with reports that she is an alcoholic and would like help, also reports that she would like to take a nap. She denies any pain or shortness of breath. Timing/Duration: 1-2 Days Severity: Moderate Associated Systoms: Denies Symptoms Allergies and Home Medications Allergies Coded Allergies: No Known Drug Allergies (Unverified , 07/20/12) Home Medications Aspirin 81 Mg Tablet.dr, 81 MG PO DAILY, (Reported) Buspirone HCl 10 Mg Tablet, 10 MG PO BID, (Reported) Cefpodoxime Proxetil 200 Mg Tablet, 200 MG PO BID Prescribed by: JUJU DESAI on 05/04/15 1211 Diclofenac Sodium 75 Mg Tablet.dr, 75 MG PO BID, (Reported) Furosemide 40 Mg Tablet, 40 MG PO DAILY, (Reported) Gabapentin 300 Mg Capsule, 300 MG PO TID, (Reported) Hydrocodone/Acetaminophen 1 Each Tablet, 1 EACH PO Q4H PRN for PAIN Prescribed by: LI LOPEZ on 03/03/16 1620 Levomilnacipran Hydrochloride 80 Mg Cap.sa.24h, 80 MG PO DAILY, (Reported) Loratadine 10 Mg Tablet, 10 MG PO DAILY, (Reported) Lorazepam 0.5 Mg Tablet, 0.5 MG PO DAILY PRN for ANXIETY, (Reported) Multivitamin 1 Each Tablet, 1 TAB PO DAILY, (Reported) Potassium Chloride 20 Meq Tab.er.prt, 20 MEQ PO DAILY, (Reported) Quetiapine Fumarate 100 Mg Tablet, 100 MG PO HS, (Reported) Tizanidine HCl 4 Mg Tablet, 4 MG PO TID PRN for MUSCLE SPASMS, (Reported) Patient Home Medication List Home Medication List Reviewed: Yes Review of Systems Review of Systems Constitutional: see HPI EENTM: see HPI Respiratory: no symptoms reported Cardiovascular: no symptoms reported Genitourinary: no symptoms reported Musculoskeletal: no symptoms reported Skin: no symptoms reported Psychiatric/Neurological: No Symptoms Reported Hematologic/Lymphatic: No Symptoms Reported Past Zxpdhzg-Vsfqwg-Sgdpuv Hx Patient Social History Alcohol Use: Regular Use Number of Drinks Today: 12 Alcohol Beverage of Choice: Beer, Whiskey, [place] Recreational Drug Use: Yes Drug of Choice: CANNIBUS Smoking Status: Current Everyday Smoker Type Used: Cigarettes 2nd Hand Smoke Exposure: Yes Recent Foreign Travel: No Contact w/Someone Who Travel: No Recent Infectious Disease Expo: No Recent Hopitalizations: No Immunizations Up To Date Tetanus Booster (TDap): Unknown PED Vaccines UTD: No Seasonal Allergies Seasonal Allergies: No Past Medical History Surgeries: Yes (CYST ON OVARY) Respiratory: Yes Sleep Apnea, COPD Currently Using CPAP: No Currently Using BIPAP: No Cardiac: No Neurological: Yes Reproductive Disorders: No Female Reproductive Disorders: Denies Sexually Transmitted Disease: No HIV/AIDS: No Genitourinary: No Gastrointestinal: No Musculoskeletal: Yes (ANKLE FRACTURE) Arthritis, Chronic Back Pain Endocrine: No HEENT: No Cancer: No Psychosocial: Yes (alcoholism) Sleep Difficulties, Anxiety, Suicide Attempts, Bipolar, Depression Integumentary: No Blood Disorders: No Family Medical History Alcoholism 19 FATHER G8 BROTHER G8 BROTHER G8 BROTHER G8 SISTER G8 SISTER FH: brain cancer G8 SISTER Neoplasm 19 MOTHER No Pertinent Family Hx Physical Exam Vital Signs Vital Signs - First Documented 10/25/19 17:12 Temp 36.6 Pulse 84 Resp 20 B/P (MAP) 109/90 (96) Pulse Ox 94 O2 Delivery Room Air Capillary Refill : Less Than 3 Seconds Height, Weight, BMI Height: 5'3.00" Weight: 115lbs. 8.0oz. 52.050692jx; 21.00 BMI Method:Estimated General Appearance: No Apparent Distress, WD/WN, Other (alert, ambulatory, behavior is as per her usual.) Eyes: Bilateral Eye Normal Inspection, Bilateral Eye PERRL Respiratory: No Accessory Muscle Use, No Respiratory Distress Cardiovascular: Regular Rate, Rhythm, Normal Peripheral Pulses Gastrointestinal: Non Tender, Soft Extremity: Normal Capillary Refill, Normal Inspection Neurologic/Psychiatric: Alert, Oriented x3 Skin: Normal Color, Warm/Dry Progress/Results/Core Measures Suspected Sepsis Recent Fever Within 48 Hours: No Infection Criteria Present: None New/Unexplained Altered Menta: No Sepsis Screen: No Definite Risk SIRS Temperature: Pulse: 84 Respiratory Rate: 20 Blood Pressure 109 /90 Mean: 96 Results/Orders My Orders Orders - LI LOPEZ APRN Diphenhydramine Tablet (Benadryl Tablet) (10/25/19 17:45) Vital Signs/I&O 10/25/19 17:12 Temp 36.6 Pulse 84 Resp 20 B/P (MAP) 109/90 (96) Pulse Ox 94 O2 Delivery Room Air Capillary Refill : Less Than 3 Seconds Blood Pressure Mean: 96 Departure Impression Primary Impression: Alcoholism Disposition: 01 HOME, SELF-CARE Condition: Stable Departure-Patient Inst. Decision time for Depature: 17:44 Referrals: HUMA LOZOYA MD (PCP/Family) Primary Care Physician Patient Instructions: Alcohol Abuse and Alcoholism (DC) Add. Discharge Instructions: Call Dr. Juju Desai at [facility] to discuss outpatient treatment of alcoholism, phone #[phone] All discharge instructions reviewed with patient and/or family. Voiced understanding. LI LOPEZ APRN Oct 25, 2019 17:45
[2019-10-25] MEDS ORDERED: ACETAMINOPHEN 325 MG TABLET ONE (17:53)
--- NOTE | 2019-10-25 17:55 | NUR ---
In room to discharge patient, patient stating she has a headache and does not have tylenol or motrin at home. Pt requesting tylenol for headache prior to discharge. PBates notified. Orders for 650mg Tylenol PO received.
[2019-10-25] MEDS ORDERED: ACETAMINOPHEN 325 MG TABLET PO ONE (18:00)
[2019-10-25 18:04] VITALS: BP 109/90
== END 2019-10-25 18:04 | disposition home or self-care (01) ==
LOC: EDUNIT# 17:12 → ER 17:14
DX: F10.20 Alcohol dependence, uncomplicated (principal); F41.9 Anxiety disorder, unspecified; G89.29 Other chronic pain; M54.9 Dorsalgia, unspecified; F31.9 Bipolar disorder, unspecified; F17.210 Nicotine dependence, cigarettes, uncomplicated; Z80.8 Family history of malignant neoplasm of other organs or systems; Z79.82 Long term (current) use of aspirin; Z79.891 Long term (current) use of opiate analgesic
CPT/HCPCS: 99283

== ENCOUNTER 2019-11-03 15:30 | Emergency (ER) | payer MEDICARE, MEDICAID ==
[~2019-11-03] VITALS: Ht 152 cm; Wt 50.0 kg
--- NOTE | 2019-11-03 15:34 | ED General ---
General Stated Complaint: INTOXICATION Source of Information: Patient Exam Limitations: No Limitations History of Present Illness Date Seen by Provider: Nov 03, 2019 Time Seen by Provider: 15:33 Initial Comments To ER by EMS from home with reports initially that she wasn't feeling well. Upon her arrival to ER she informs me that EMS showed up to her house and told her she needed to go to the hospital. Severity: Moderate Associated Systoms: Denies Symptoms Allergies and Home Medications Patient Home Medication List Home Medication List Reviewed: Yes Review of Systems Review of Systems Constitutional: see HPI EENTM: see HPI Respiratory: no symptoms reported Cardiovascular: no symptoms reported Genitourinary: no symptoms reported Musculoskeletal: no symptoms reported Skin: no symptoms reported Psychiatric/Neurological: No Symptoms Reported Physical Exam Vital Signs Capillary Refill : Height, Weight, BMI Height: '" Weight: lbs. oz. kg; BMI Method: General Appearance: No Apparent Distress, WD/WN, Other (alert, ambulatory in the emergency room, smiling and jovial.) Eyes: Bilateral Eye Normal Inspection, Bilateral Eye PERRL Neck: Full Range of Motion, Normal Inspection Respiratory: No Accessory Muscle Use, No Respiratory Distress Cardiovascular: Regular Rate, Rhythm, Normal Peripheral Pulses Gastrointestinal: Normal Bowel Sounds, Non Tender, Soft Extremity: Normal Capillary Refill, Normal Inspection Neurologic/Psychiatric: Alert, Oriented x3 Skin: Normal Color Progress/Results/Core Measures Suspected Sepsis SIRS Temperature: Pulse: Respiratory Rate: Blood Pressure / Mean: Results/Orders Vital Signs/I&O Capillary Refill : Departure Impression Primary Impression: Alcoholism Disposition: 01 HOME, SELF-CARE Condition: Stable Departure-Patient Inst. Decision time for Depature: 15:34 Patient Instructions: NO INSTRUCTIONS GIVEN LI LOPEZ APRN Nov 03, 2019 15:34
[2019-11-03 16:00] VITALS: BP 100/81
== END 2019-11-03 15:45 | disposition home or self-care (01) ==
LOC: EDUNIT# 15:32 → ER 15:33
DX: F10.229 Alcohol dependence with intoxication, unspecified (principal)
CPT/HCPCS: 99283

== ENCOUNTER 2019-11-06 14:26 | Emergency (ER) | payer MEDICARE, MEDICAID ==
[~2019-11-06] VITALS: Ht 157 cm; Wt 44.0 kg
--- NOTE | 2019-11-06 14:34 | ED General ---
General Chief Complaint: General Problems/Pain Stated Complaint: SICK Source of Information: Patient, EMS Exam Limitations: No Limitations History of Present Illness Date Seen by Provider: Nov 06, 2019 Time Seen by Provider: 14:32 Initial Comments To ER by EMS from home with reports of not feeling well. Upon arrival here she is ambulatory and states that she was sitting in her chair drinking her beer minding her own business and "not bothering nobody" when someone showed up to her door and told her they were taking her to the hospital. When asked how she feels she states "very well". Timing/Duration: 1-2 Days Associated Systoms: Denies Symptoms Allergies and Home Medications Allergies Coded Allergies: No Known Drug Allergies (Unverified , 07/20/12) Home Medications Aspirin 81 Mg Tablet.dr, 81 MG PO DAILY, (Reported) Buspirone HCl 10 Mg Tablet, 10 MG PO BID, (Reported) Cefpodoxime Proxetil 200 Mg Tablet, 200 MG PO BID Prescribed by: FINESSE DESAI on 05/04/15 1211 Diclofenac Sodium 75 Mg Tablet.dr, 75 MG PO BID, (Reported) Furosemide 40 Mg Tablet, 40 MG PO DAILY, (Reported) Gabapentin 300 Mg Capsule, 300 MG PO TID, (Reported) Hydrocodone/Acetaminophen 1 Each Tablet, 1 EACH PO Q4H PRN for PAIN Prescribed by: LI LOPEZ on 03/03/16 1620 Levomilnacipran Hydrochloride 80 Mg Cap.sa.24h, 80 MG PO DAILY, (Reported) Loratadine 10 Mg Tablet, 10 MG PO DAILY, (Reported) Lorazepam 0.5 Mg Tablet, 0.5 MG PO DAILY PRN for ANXIETY, (Reported) Multivitamin 1 Each Tablet, 1 TAB PO DAILY, (Reported) Potassium Chloride 20 Meq Tab.er.prt, 20 MEQ PO DAILY, (Reported) Quetiapine Fumarate 100 Mg Tablet, 100 MG PO HS, (Reported) Tizanidine HCl 4 Mg Tablet, 4 MG PO TID PRN for MUSCLE SPASMS, (Reported) Patient Home Medication List Home Medication List Reviewed: Yes Review of Systems Review of Systems Constitutional: see HPI EENTM: see HPI Respiratory: no symptoms reported Cardiovascular: no symptoms reported Genitourinary: no symptoms reported Musculoskeletal: no symptoms reported Skin: no symptoms reported Psychiatric/Neurological: No Symptoms Reported Past Akgsuve-Ksdjyz-Uloltk Hx Patient Social History Alcohol Beverage of Choice: Beer, Whiskey, [place] Drug of Choice: CANNIBUS Type Used: Cigarettes 2nd Hand Smoke Exposure: Yes Recent Hopitalizations: No Immunizations Up To Date Tetanus Booster (TDap): Unknown PED Vaccines UTD: No Seasonal Allergies Seasonal Allergies: No Past Medical History Surgeries: Yes (CYST ON OVARY) Respiratory: Yes Sleep Apnea, COPD Currently Using CPAP: No Currently Using BIPAP: No Cardiac: No Neurological: Yes Reproductive Disorders: No Female Reproductive Disorders: Denies Sexually Transmitted Disease: No HIV/AIDS: No Genitourinary: No Gastrointestinal: No Musculoskeletal: Yes (ANKLE FRACTURE) Arthritis, Chronic Back Pain Endocrine: No HEENT: No Cancer: No Psychosocial: Yes (alcoholism) Sleep Difficulties, Anxiety, Suicide Attempts, Bipolar, Depression Integumentary: No Blood Disorders: No Family Medical History Alcoholism 19 FATHER G8 BROTHER G8 BROTHER G8 BROTHER G8 SISTER G8 SISTER FH: brain cancer G8 SISTER Neoplasm 19 MOTHER No Pertinent Family Hx Physical Exam Vital Signs Capillary Refill : Height, Weight, BMI Height: 5'3.00" Weight: 115lbs. 8.0oz. 52.470881uo; 21.00 BMI Method:Estimated General Appearance: No Apparent Distress, WD/WN Eyes: Bilateral Eye Normal Inspection, Bilateral Eye PERRL, Bilateral Eye EOMI Respiratory: No Accessory Muscle Use, No Respiratory Distress Cardiovascular: Regular Rate, Rhythm, Normal Peripheral Pulses Gastrointestinal: Non Tender, Soft Extremity: Normal Capillary Refill, Normal Inspection Neurologic/Psychiatric: Alert, Oriented x3 Skin: Normal Color, Warm/Dry Progress/Results/Core Measures Suspected Sepsis SIRS Temperature: Pulse: Respiratory Rate: Blood Pressure / Mean: Results/Orders Vital Signs/I&O Capillary Refill : Departure Impression Primary Impression: Alcoholism Disposition: 01 HOME, SELF-CARE Condition: Stable Departure-Patient Inst. Decision time for Depature: 14:34 Referrals: HUMA LOZOYA MD (PCP/Family) Primary Care Physician Patient Instructions: Alcohol Abuse and Alcoholism (DC) LI LOPEZ APRN Nov 06, 2019 14:34
[2019-11-06 14:42] VITALS: BP 113/87
== END 2019-11-06 14:42 | disposition home or self-care (01) ==
LOC: EDUNIT# 14:26 → ER 14:27
DX: F10.20 Alcohol dependence, uncomplicated (principal); F41.9 Anxiety disorder, unspecified; F31.9 Bipolar disorder, unspecified; G89.29 Other chronic pain; M54.9 Dorsalgia, unspecified; Z79.82 Long term (current) use of aspirin; Z77.22 Contact with and (suspected) exposure to environmental tobacco smoke (acute) (chronic); Z80.8 Family history of malignant neoplasm of other organs or systems
CPT/HCPCS: 99283

== ENCOUNTER 2019-11-24 10:31 | Emergency (ER) | payer MEDICARE, MEDICAID ==
[~2019-11-24] VITALS: Ht 154 cm; Wt 49.8 kg
--- NOTE | 2019-11-24 10:40 | NUR ---
upon arrival to ed pt reports sheneeds to use the restroom. after using the restroom pt states she feels better and wants to go home. pt ambulates to discharge without difficulty.
== END 2019-11-24 10:39 | disposition left against medical advice (07) ==
LOC: EDUNIT# 10:31 → ER 10:33
DX: M25.571 Pain in right ankle and joints of right foot (principal)
CPT/HCPCS: 99283

== ENCOUNTER 2020-01-02 11:50 | Emergency (ER) | payer MEDICARE, MEDICAID ==
[~2020-01-02] VITALS: Ht 160 cm; Wt 54.0 kg
--- NOTE | 2020-01-02 11:59 | ED Lower Extremity ---
General Chief Complaint: Lower Extremity Stated Complaint: SOB Source: patient Exam Limitations: no limitations History of Present Illness Date Seen by Provider: Jan 02, 2020 Time Seen by Provider: 11:59 Initial Comments To ER by EMS today with reports that she has had 5 beers this morning and wanted to come tell us that she loves us. She is now ready to go home. She has some chronic discomfort in the right ankle Onset: just prior to arrival Severity: moderate Pain/Injury Location: right ankle Method of Injury: unknown Modifying Factors: Worse With Movement Allergies and Home Medications Allergies Coded Allergies: No Known Drug Allergies (Unverified , 07/20/12) Home Medications Aspirin 81 Mg Tablet.dr, 81 MG PO DAILY, (Reported) Buspirone HCl 10 Mg Tablet, 10 MG PO BID, (Reported) Cefpodoxime Proxetil 200 Mg Tablet, 200 MG PO BID Prescribed by: FINESSE DESAI on 05/04/15 1211 Diclofenac Sodium 75 Mg Tablet.dr, 75 MG PO BID, (Reported) Furosemide 40 Mg Tablet, 40 MG PO DAILY, (Reported) Gabapentin 300 Mg Capsule, 300 MG PO TID, (Reported) Hydrocodone/Acetaminophen 1 Each Tablet, 1 EACH PO Q4H PRN for PAIN Prescribed by: LI LOPEZ on 03/03/16 1620 Levomilnacipran Hydrochloride 80 Mg Cap.sa.24h, 80 MG PO DAILY, (Reported) Loratadine 10 Mg Tablet, 10 MG PO DAILY, (Reported) Lorazepam 0.5 Mg Tablet, 0.5 MG PO DAILY PRN for ANXIETY, (Reported) Multivitamin 1 Each Tablet, 1 TAB PO DAILY, (Reported) Potassium Chloride 20 Meq Tab.er.prt, 20 MEQ PO DAILY, (Reported) Quetiapine Fumarate 100 Mg Tablet, 100 MG PO HS, (Reported) Tizanidine HCl 4 Mg Tablet, 4 MG PO TID PRN for MUSCLE SPASMS, (Reported) Patient Home Medication List Home Medication List Reviewed: Yes Review of Systems Constitutional: see HPI EENTM: see HPI Respiratory: no symptoms reported Cardiovascular: no symptoms reported Genitourinary: no symptoms reported Musculoskeletal: see HPI Skin: no symptoms reported Psychiatric/Neurological: No Symptoms Reported Past Qbbucrz-Ukgiuv-Tosqky Hx Patient Social History Alcohol Beverage of Choice: Beer, Whiskey, [place] Drug of Choice: CANNIBUS Type Used: Cigarettes 2nd Hand Smoke Exposure: Yes Recent Hopitalizations: No Immunizations Up To Date Tetanus Booster (TDap): Unknown PED Vaccines UTD: No Seasonal Allergies Seasonal Allergies: No Past Medical History Surgeries: Yes (CYST ON OVARY) Respiratory: Yes Sleep Apnea, COPD Currently Using CPAP: No Currently Using BIPAP: No Cardiac: No Neurological: Yes Reproductive Disorders: No Female Reproductive Disorders: Denies Sexually Transmitted Disease: No HIV/AIDS: No Genitourinary: No Gastrointestinal: No Musculoskeletal: Yes (ANKLE FRACTURE) Arthritis, Chronic Back Pain Endocrine: No HEENT: No Cancer: No Psychosocial: Yes (alcoholism) Sleep Difficulties, Anxiety, Suicide Attempts, Bipolar, Depression Integumentary: No Blood Disorders: No Family Medical History Alcoholism 19 FATHER G8 BROTHER G8 BROTHER G8 BROTHER G8 SISTER G8 SISTER FH: brain cancer G8 SISTER Neoplasm 19 MOTHER No Pertinent Family Hx Physical Exam Vital Signs Capillary Refill : Height, Weight, BMI Height: 5'3.00" Weight: 115lbs. 8.0oz. 52.951453vw; 20.00 BMI Method:Estimated General Appearance: WD/WN, no apparent distress Respiratory: no respiratory distress, no accessory muscle use Hips: bilateral hip non-tender, bilateral hip normal inspection, bilateral hip normal range of motion Legs: bilateral leg non-tender, bilateral leg normal inspection, bilateral leg normal range of motion Knees: bilateral knee non-tender, bilateral knee normal inspection, bilateral knee normal range of motion Ankles: bilateral ankle non-tender, bilateral ankle normal range of motion; right ankle swelling Feet: bilateral foot non-tender, bilateral foot normal inspection, bilateral foot normal range of motion Neurologic/Psychiatric: alert, normal mood/affect, oriented x 3 Skin: normal color, warm/dry She is ambulatory to the bathroom with standby assist, all the while confessing her love for me. Departure Impression Primary Impression: Ankle pain Additional Impression: Alcoholism Disposition: 01 HOME, SELF-CARE Condition: Stable Departure-Patient Inst. Decision time for Depature: 12:01 Referrals: HUMA LOZOYA MD (PCP/Family) Primary Care Physician Patient Instructions: Alcohol Use - When Is Drinking a Problem? LI LOPEZ [employer] Jan 02, 2020 11:59
[2020-01-02 12:08] VITALS: BP 103/82
== END 2020-01-02 12:08 | disposition home or self-care (01) ==
LOC: EDUNIT# 11:50 → ER 11:52
DX: M25.571 Pain in right ankle and joints of right foot (principal); F10.20 Alcohol dependence, uncomplicated; F31.9 Bipolar disorder, unspecified; G89.29 Other chronic pain; M54.9 Dorsalgia, unspecified; F41.9 Anxiety disorder, unspecified; Z80.8 Family history of malignant neoplasm of other organs or systems; Z77.22 Contact with and (suspected) exposure to environmental tobacco smoke (acute) (chronic); Z79.82 Long term (current) use of aspirin; Z79.891 Long term (current) use of opiate analgesic
CPT/HCPCS: 99283

== ENCOUNTER 2020-01-04 17:59 | Emergency (ER) | payer MEDICARE, MEDICAID ==
[~2020-01-04] VITALS: Ht 152.4 cm; Wt 54.5 kg
--- NOTE | 2020-01-04 18:01 | ED General ---
General Stated Complaint: HEADACHE Source of Information: Patient, EMS Exam Limitations: No Limitations History of Present Illness Date Seen by Provider: Jan 04, 2020 Time Seen by Provider: 18:01 Initial Comments To ER with c/o abdominal pain. Upon arrival states that she wants to go home. Timing/Duration: 1-2 Days Severity: Moderate Associated Systoms: Denies Symptoms Allergies and Home Medications Allergies Coded Allergies: No Known Drug Allergies (Unverified , 07/20/12) Home Medications Aspirin 81 Mg Tablet.dr, 81 MG PO DAILY, (Reported) Buspirone HCl 10 Mg Tablet, 10 MG PO BID, (Reported) Cefpodoxime Proxetil 200 Mg Tablet, 200 MG PO BID Prescribed by: FINESSE DESAI on 05/04/15 1211 Diclofenac Sodium 75 Mg Tablet.dr, 75 MG PO BID, (Reported) Furosemide 40 Mg Tablet, 40 MG PO DAILY, (Reported) Gabapentin 300 Mg Capsule, 300 MG PO TID, (Reported) Hydrocodone/Acetaminophen 1 Each Tablet, 1 EACH PO Q4H PRN for PAIN Prescribed by: LI LOPEZ on 03/03/16 1620 Levomilnacipran Hydrochloride 80 Mg Cap.sa.24h, 80 MG PO DAILY, (Reported) Loratadine 10 Mg Tablet, 10 MG PO DAILY, (Reported) Lorazepam 0.5 Mg Tablet, 0.5 MG PO DAILY PRN for ANXIETY, (Reported) Multivitamin 1 Each Tablet, 1 TAB PO DAILY, (Reported) Potassium Chloride 20 Meq Tab.er.prt, 20 MEQ PO DAILY, (Reported) Quetiapine Fumarate 100 Mg Tablet, 100 MG PO HS, (Reported) Tizanidine HCl 4 Mg Tablet, 4 MG PO TID PRN for MUSCLE SPASMS, (Reported) Patient Home Medication List Home Medication List Reviewed: Yes Review of Systems Review of Systems Constitutional: see HPI EENTM: see HPI Respiratory: no symptoms reported Cardiovascular: no symptoms reported Genitourinary: no symptoms reported Musculoskeletal: no symptoms reported Skin: no symptoms reported Psychiatric/Neurological: No Symptoms Reported Past Pusvpmy-Nqmyee-Mzgwdd Hx Patient Social History Alcohol Beverage of Choice: Beer, Whiskey, [place] Drug of Choice: CANNIBUS Type Used: Cigarettes 2nd Hand Smoke Exposure: Yes Recent Hopitalizations: No Immunizations Up To Date Tetanus Booster (TDap): Unknown PED Vaccines UTD: No Seasonal Allergies Seasonal Allergies: No Past Medical History Surgeries: Yes (CYST ON OVARY) Respiratory: Yes Sleep Apnea, COPD Currently Using CPAP: No Currently Using BIPAP: No Cardiac: No Neurological: Yes Reproductive Disorders: No Female Reproductive Disorders: Denies Sexually Transmitted Disease: No HIV/AIDS: No Genitourinary: No Gastrointestinal: No Musculoskeletal: Yes (ANKLE FRACTURE) Arthritis, Chronic Back Pain Endocrine: No HEENT: No Cancer: No Psychosocial: Yes (alcoholism) Sleep Difficulties, Anxiety, Suicide Attempts, Bipolar, Depression Integumentary: No Blood Disorders: No Family Medical History No Pertinent Family Hx Physical Exam Vital Signs Vital Signs - First Documented 01/04/20 17:59 Temp 36.3 Pulse 95 Resp 18 B/P (MAP) 107/92 (97) Pulse Ox 97 O2 Delivery Room Air Capillary Refill : Height, Weight, BMI Height: 5'3.00" Weight: 115lbs. 8.0oz. 52.670654pu; 21.00 BMI Method:Estimated General Appearance: No Apparent Distress, WD/WN Eyes: Bilateral Eye Normal Inspection, Bilateral Eye PERRL, Bilateral Eye EOMI Neck: Full Range of Motion, Normal Inspection Respiratory: No Accessory Muscle Use, No Respiratory Distress Cardiovascular: Regular Rate, Rhythm, Normal Peripheral Pulses Gastrointestinal: Normal Bowel Sounds, Non Tender, Soft Extremity: Normal Capillary Refill, Normal Inspection Neurologic/Psychiatric: Alert, Oriented x3 Skin: Normal Color, Warm/Dry Progress/Results/Core Measures Suspected Sepsis SIRS Temperature: Pulse: Respiratory Rate: Blood Pressure / Mean: Results/Orders Vital Signs/I&O 01/04/20 01/04/20 17:59 18:17 Temp 36.3 36.3 Pulse 95 95 Resp 18 18 B/P (MAP) 107/92 (97) 107/92 (97) Pulse Ox 97 97 O2 Delivery Room Air Capillary Refill : Departure Impression Primary Impression: Alcoholic Disposition: 01 HOME, SELF-CARE Condition: Stable Departure-Patient Inst. Decision time for Depature: 18:01 Referrals: HUMA LOZOYA MD (PCP/Family) Primary Care Physician Patient Instructions: Alcohol Abuse and Alcoholism (DC) LI LOPEZ APRN Jan 04, 2020 18:01
[2020-01-04 18:17] VITALS: BP 107/92
== END 2020-01-04 18:17 | disposition home or self-care (01) ==
LOC: EDUNIT# 17:59 → ER 18:00
DX: F10.20 Alcohol dependence, uncomplicated (principal); F41.9 Anxiety disorder, unspecified; F31.9 Bipolar disorder, unspecified; G89.29 Other chronic pain; M54.9 Dorsalgia, unspecified; Z77.22 Contact with and (suspected) exposure to environmental tobacco smoke (acute) (chronic); Z79.82 Long term (current) use of aspirin; Z79.891 Long term (current) use of opiate analgesic
CPT/HCPCS: 99283

== ENCOUNTER 2020-01-09 15:45 | Emergency (ER) | payer MEDICARE, MEDICAID ==
[~2020-01-09] VITALS: Ht 157 cm; Wt 59.0 kg
[2020-01-09 15:45] VITALS: BP 114/81
--- NOTE | 2020-01-09 15:48 | ED General ---
General Stated Complaint: ANKLE PAIN Source of Information: Patient Exam Limitations: No Limitations History of Present Illness Date Seen by Provider: Jan 09, 2020 Time Seen by Provider: 15:48 Initial Comments To ER by EMS from home. She called police to get a Tylenol and they would not give it to her so she called an ambulance. Timing/Duration: 1-2 Days Severity: Moderate Associated Systoms: Headaches Allergies and Home Medications Allergies Coded Allergies: No Known Drug Allergies (Unverified , 07/20/12) Home Medications Aspirin 81 Mg Tablet.dr, 81 MG PO DAILY, (Reported) Buspirone HCl 10 Mg Tablet, 10 MG PO BID, (Reported) Cefpodoxime Proxetil 200 Mg Tablet, 200 MG PO BID Prescribed by: FINESSE DESAI on 05/04/15 1211 Diclofenac Sodium 75 Mg Tablet.dr, 75 MG PO BID, (Reported) Furosemide 40 Mg Tablet, 40 MG PO DAILY, (Reported) Gabapentin 300 Mg Capsule, 300 MG PO TID, (Reported) Hydrocodone/Acetaminophen 1 Each Tablet, 1 EACH PO Q4H PRN for PAIN Prescribed by: LI LOPEZ on 03/03/16 1620 Levomilnacipran Hydrochloride 80 Mg Cap.sa.24h, 80 MG PO DAILY, (Reported) Loratadine 10 Mg Tablet, 10 MG PO DAILY, (Reported) Lorazepam 0.5 Mg Tablet, 0.5 MG PO DAILY PRN for ANXIETY, (Reported) Multivitamin 1 Each Tablet, 1 TAB PO DAILY, (Reported) Potassium Chloride 20 Meq Tab.er.prt, 20 MEQ PO DAILY, (Reported) Quetiapine Fumarate 100 Mg Tablet, 100 MG PO HS, (Reported) Tizanidine HCl 4 Mg Tablet, 4 MG PO TID PRN for MUSCLE SPASMS, (Reported) Patient Home Medication List Home Medication List Reviewed: Yes Review of Systems Review of Systems Constitutional: see HPI EENTM: see HPI Respiratory: no symptoms reported Cardiovascular: no symptoms reported Genitourinary: no symptoms reported Musculoskeletal: no symptoms reported Skin: no symptoms reported Psychiatric/Neurological: See HPI, Headache Past Jsbugxs-Egiamc-Mcdxxn Hx Patient Social History Alcohol Beverage of Choice: Beer, Whiskey, [place] Drug of Choice: CANNIBUS Type Used: Cigarettes 2nd Hand Smoke Exposure: Yes Recent Hopitalizations: No Immunizations Up To Date Tetanus Booster (TDap): Unknown PED Vaccines UTD: No Seasonal Allergies Seasonal Allergies: No Past Medical History Surgeries: Yes (CYST ON OVARY) Respiratory: Yes Sleep Apnea, COPD Currently Using CPAP: No Currently Using BIPAP: No Cardiac: No Neurological: Yes Reproductive Disorders: No Female Reproductive Disorders: Denies Sexually Transmitted Disease: No HIV/AIDS: No Genitourinary: No Gastrointestinal: No Musculoskeletal: Yes (ANKLE FRACTURE) Arthritis, Chronic Back Pain Endocrine: No HEENT: No Cancer: No Psychosocial: Yes (alcoholism) Sleep Difficulties, Anxiety, Suicide Attempts, Bipolar, Depression Integumentary: No Blood Disorders: No Family Medical History Alcoholism 19 FATHER G8 BROTHER G8 BROTHER G8 BROTHER G8 SISTER G8 SISTER FH: brain cancer G8 SISTER Neoplasm 19 MOTHER No Pertinent Family Hx Physical Exam Vital Signs Capillary Refill : Height, Weight, BMI Height: 5'3.00" Weight: 115lbs. 8.0oz. 52.266485hw; 23.00 BMI Method:Estimated General Appearance: No Apparent Distress, WD/WN Eyes: Bilateral Eye Normal Inspection, Bilateral Eye PERRL, Bilateral Eye EOMI Neck: Full Range of Motion, Normal Inspection Respiratory: Lungs Clear, No Accessory Muscle Use, No Respiratory Distress Cardiovascular: Regular Rate, Rhythm, Normal Peripheral Pulses Gastrointestinal: Normal Bowel Sounds, Non Tender, Soft Extremity: Normal Capillary Refill, Normal Inspection Neurologic/Psychiatric: Alert, Oriented x3 Skin: Normal Color, Warm/Dry Progress/Results/Core Measures Suspected Sepsis SIRS Temperature: Pulse: Respiratory Rate: Blood Pressure / Mean: Results/Orders Vital Signs/I&O Capillary Refill : Departure Impression Primary Impression: Alcoholism Disposition: 01 HOME, SELF-CARE Condition: Stable Departure-Patient Inst. Decision time for Depature: 15:48 Referrals: HUMA LOZOYA MD (PCP/Family) Primary Care Physician Patient Instructions: NO INSTRUCTIONS GIVEN LI LOPEZ APRN Jan 09, 2020 15:48
[2020-01-09] MEDS ORDERED: ACETAMINOPHEN 325 MG TABLET PO ONE (16:00)
== END 2020-01-09 16:00 | disposition home or self-care (01) ==
LOC: EDUNIT# 15:45 → ER 15:47
DX: F10.20 Alcohol dependence, uncomplicated (principal); F41.9 Anxiety disorder, unspecified; F31.9 Bipolar disorder, unspecified; G89.29 Other chronic pain; Z80.8 Family history of malignant neoplasm of other organs or systems; Z77.22 Contact with and (suspected) exposure to environmental tobacco smoke (acute) (chronic); Z79.82 Long term (current) use of aspirin; Z79.891 Long term (current) use of opiate analgesic
CPT/HCPCS: 99283

== ENCOUNTER 2020-01-13 13:30 | Emergency (ER) | payer MEDICARE, MEDICAID ==
[~2020-01-13] VITALS: Ht 149 cm; Wt 45.0 kg
--- NOTE | 2020-01-13 13:36 | ED General ---
General Chief Complaint: General Problems/Pain Stated Complaint: INTOXICATION Source of Information: Patient Exam Limitations: No Limitations History of Present Illness Date Seen by Provider: Jan 13, 2020 Time Seen by Provider: 13:35 Initial Comments Arrives by EMS, not sure why she is here. States she would like to go home. Timing/Duration: 1-2 Days Severity: Moderate Associated Systoms: Denies Symptoms Allergies and Home Medications Allergies Coded Allergies: No Known Drug Allergies (Unverified , 07/20/12) Home Medications Aspirin 81 Mg Tablet.dr, 81 MG PO DAILY, (Reported) Buspirone HCl 10 Mg Tablet, 10 MG PO BID, (Reported) Cefpodoxime Proxetil 200 Mg Tablet, 200 MG PO BID Prescribed by: FINESSE DESAI on 05/04/15 1211 Diclofenac Sodium 75 Mg Tablet.dr, 75 MG PO BID, (Reported) Furosemide 40 Mg Tablet, 40 MG PO DAILY, (Reported) Gabapentin 300 Mg Capsule, 300 MG PO TID, (Reported) Hydrocodone/Acetaminophen 1 Each Tablet, 1 EACH PO Q4H PRN for PAIN Prescribed by: LI LOPEZ on 03/03/16 1620 Levomilnacipran Hydrochloride 80 Mg Cap.sa.24h, 80 MG PO DAILY, (Reported) Loratadine 10 Mg Tablet, 10 MG PO DAILY, (Reported) Lorazepam 0.5 Mg Tablet, 0.5 MG PO DAILY PRN for ANXIETY, (Reported) Multivitamin 1 Each Tablet, 1 TAB PO DAILY, (Reported) Potassium Chloride 20 Meq Tab.er.prt, 20 MEQ PO DAILY, (Reported) Quetiapine Fumarate 100 Mg Tablet, 100 MG PO HS, (Reported) Tizanidine HCl 4 Mg Tablet, 4 MG PO TID PRN for MUSCLE SPASMS, (Reported) Patient Home Medication List Home Medication List Reviewed: Yes Review of Systems Review of Systems Constitutional: see HPI EENTM: see HPI Respiratory: no symptoms reported Cardiovascular: no symptoms reported Genitourinary: no symptoms reported Musculoskeletal: no symptoms reported Skin: no symptoms reported Psychiatric/Neurological: No Symptoms Reported Hematologic/Lymphatic: No Symptoms Reported Immunological/Allergic: no symptoms reported Past Sbbanvs-Hnuhtw-Raebht Hx Patient Social History Alcohol Beverage of Choice: Beer, Whiskey, [place] Drug of Choice: CANNIBUS Type Used: Cigarettes 2nd Hand Smoke Exposure: Yes Recent Hopitalizations: No Immunizations Up To Date Tetanus Booster (TDap): Unknown PED Vaccines UTD: No Seasonal Allergies Seasonal Allergies: No Past Medical History Surgeries: Yes (CYST ON OVARY) Respiratory: Yes Sleep Apnea, COPD Currently Using CPAP: No Currently Using BIPAP: No Cardiac: No Neurological: Yes Reproductive Disorders: No Female Reproductive Disorders: Denies Sexually Transmitted Disease: No HIV/AIDS: No Genitourinary: No Gastrointestinal: No Musculoskeletal: Yes (ANKLE FRACTURE) Arthritis, Chronic Back Pain Endocrine: No HEENT: No Cancer: No Psychosocial: Yes (alcoholism) Sleep Difficulties, Anxiety, Suicide Attempts, Bipolar, Depression Integumentary: No Blood Disorders: No Family Medical History Alcoholism 19 FATHER G8 BROTHER G8 BROTHER G8 BROTHER G8 SISTER G8 SISTER FH: brain cancer G8 SISTER Neoplasm 19 MOTHER No Pertinent Family Hx Physical Exam Vital Signs Vital Signs - First Documented 01/13/20 13:37 Temp 36.2 Pulse 89 Resp 16 B/P (MAP) 106/86 (93) Pulse Ox 95 O2 Delivery Room Air Capillary Refill : Height, Weight, BMI Height: 5'3.00" Weight: 115lbs. 8.0oz. 52.736489fk; 23.00 BMI Method:Estimated General Appearance: No Apparent Distress, WD/WN Eyes: Bilateral Eye Normal Inspection, Bilateral Eye PERRL Neck: Full Range of Motion, Normal Inspection Respiratory: No Accessory Muscle Use, No Respiratory Distress Gastrointestinal: Normal Bowel Sounds, Non Tender, Soft Extremity: Normal Capillary Refill, Normal Inspection Neurologic/Psychiatric: Alert, Oriented x3 Skin: Normal Color, Warm/Dry Progress/Results/Core Measures Suspected Sepsis SIRS Temperature: Pulse: Respiratory Rate: Blood Pressure / Mean: Results/Orders Vital Signs/I&O 01/13/20 01/13/20 13:37 13:47 Temp 36.2 36.2 Pulse 89 89 Resp 16 16 B/P (MAP) 106/86 (93) 106/86 (93) Pulse Ox 95 95 O2 Delivery Room Air Capillary Refill : Departure Impression Primary Impression: Alcoholism Disposition: 01 HOME, SELF-CARE Condition: Stable Departure-Patient Inst. Decision time for Depature: 13:35 Referrals: HUMA LOZOYA MD (PCP/Family) Primary Care Physician Patient Instructions: NO INSTRUCTIONS GIVEN Add. Discharge Instructions: All discharge instructions reviewed with patient and/or family. Voiced understanding. LI LOPEZ APRN Jan 13, 2020 13:35
[2020-01-13 13:47] VITALS: BP 106/86
== END 2020-01-13 13:48 | disposition home or self-care (01) ==
LOC: EDUNIT# 13:30 → ER 13:31
DX: F10.20 Alcohol dependence, uncomplicated (principal); F41.9 Anxiety disorder, unspecified; F31.9 Bipolar disorder, unspecified; G89.29 Other chronic pain; M54.9 Dorsalgia, unspecified; Z80.8 Family history of malignant neoplasm of other organs or systems; Z77.22 Contact with and (suspected) exposure to environmental tobacco smoke (acute) (chronic); Z79.82 Long term (current) use of aspirin; Z79.891 Long term (current) use of opiate analgesic
CPT/HCPCS: 99283

== ENCOUNTER 2020-01-16 15:13 | Emergency (ER) | payer MEDICARE, MEDICAID ==
[~2020-01-16] VITALS: Ht 157 cm; Wt 63.0 kg
[2020-01-16 15:14] VITALS: BP 101/84
--- NOTE | 2020-01-16 15:20 | ED Lower Extremity ---
General Chief Complaint: Lower Extremity Stated Complaint: NOT FEELING WELL Nursing Triage Note: PT WITH COMPLAINTS OF RIGHT LEG PAIN ET STATES SHE THINKS IT IS BROKEN. DENIES INJURY. PT STATES SHE HAS X5 TALL BOYS TODAY. Nursing Sepsis Screen: No Definite Risk Source: patient Exam Limitations: no limitations History of Present Illness Date Seen by Provider: Jan 16, 2020 Time Seen by Provider: 15:19 Initial Comments To ER by EMS with reports of right lower extremity pain and stating that she does not feel well. She states that she has had 5 tall boys today and intends to have 6 more when she goes home Onset: just prior to arrival Severity: moderate Allergies and Home Medications Allergies Coded Allergies: No Known Drug Allergies (Unverified , 07/20/12) Home Medications Aspirin 81 Mg Tablet.dr, 81 MG PO DAILY, (Reported) Buspirone HCl 10 Mg Tablet, 10 MG PO BID, (Reported) Cefpodoxime Proxetil 200 Mg Tablet, 200 MG PO BID Prescribed by: FINESSE DESAI on 05/04/15 1211 Diclofenac Sodium 75 Mg Tablet.dr, 75 MG PO BID, (Reported) Furosemide 40 Mg Tablet, 40 MG PO DAILY, (Reported) Gabapentin 300 Mg Capsule, 300 MG PO TID, (Reported) Hydrocodone/Acetaminophen 1 Each Tablet, 1 EACH PO Q4H PRN for PAIN Prescribed by: LI LOPEZ on 03/03/16 1620 Levomilnacipran Hydrochloride 80 Mg Cap.sa.24h, 80 MG PO DAILY, (Reported) Loratadine 10 Mg Tablet, 10 MG PO DAILY, (Reported) Lorazepam 0.5 Mg Tablet, 0.5 MG PO DAILY PRN for ANXIETY, (Reported) Multivitamin 1 Each Tablet, 1 TAB PO DAILY, (Reported) Potassium Chloride 20 Meq Tab.er.prt, 20 MEQ PO DAILY, (Reported) Quetiapine Fumarate 100 Mg Tablet, 100 MG PO HS, (Reported) Tizanidine HCl 4 Mg Tablet, 4 MG PO TID PRN for MUSCLE SPASMS, (Reported) Patient Home Medication List Home Medication List Reviewed: Yes Review of Systems Constitutional: see HPI EENTM: see HPI Respiratory: no symptoms reported Cardiovascular: no symptoms reported Genitourinary: no symptoms reported Musculoskeletal: no symptoms reported Skin: no symptoms reported Psychiatric/Neurological: No Symptoms Reported Past Gjkjcep-Dknzcg-Iqkuee Hx Patient Social History Alcohol Use: Regular Use Alcohol Beverage of Choice: Beer Recreational Drug Use: No Drug of Choice: CANNIBUS Smoking Status: Current Everyday Smoker Type Used: Cigarettes 2nd Hand Smoke Exposure: Yes Recent Foreign Travel: No Contact w/Someone Who Travel: No Recent Infectious Disease Expo: No Recent Hopitalizations: No Immunizations Up To Date Tetanus Booster (TDap): Unknown PED Vaccines UTD: No Seasonal Allergies Seasonal Allergies: No Past Medical History Surgeries: Yes (CYST ON OVARY) Respiratory: Yes Sleep Apnea, COPD Currently Using CPAP: No Currently Using BIPAP: No Cardiac: No Neurological: Yes Reproductive Disorders: No Female Reproductive Disorders: Denies Sexually Transmitted Disease: No HIV/AIDS: No Genitourinary: No Gastrointestinal: No Musculoskeletal: Yes (ANKLE FRACTURE) Arthritis, Chronic Back Pain Endocrine: No HEENT: No Cancer: No Psychosocial: Yes (alcoholism) Sleep Difficulties, Anxiety, Suicide Attempts, Bipolar, Depression Integumentary: No Blood Disorders: No Family Medical History Alcoholism 19 FATHER G8 BROTHER G8 BROTHER G8 BROTHER G8 SISTER G8 SISTER FH: brain cancer G8 SISTER Neoplasm 19 MOTHER No Pertinent Family Hx Physical Exam Vital Signs Vital Signs - First Documented 01/16/20 15:14 Temp 36.0 Pulse 87 Resp 16 B/P (MAP) 101/84 (90) Pulse Ox 91 O2 Delivery Room Air Capillary Refill : Less Than 3 Seconds Height, Weight, BMI Height: 5'3.00" Weight: 115lbs. 8.0oz. 52.225472vm; 25.00 BMI Method:Estimated General Appearance: no apparent distress, other (chronically ill) HEENT: PERRL/EOMI, normal ENT inspection Respiratory: no respiratory distress Gastrointestinal: normal bowel sounds, non tender Hips: bilateral hip non-tender, bilateral hip normal inspection, bilateral hip normal range of motion Legs: bilateral leg non-tender, bilateral leg normal inspection, bilateral leg normal range of motion Knees: bilateral knee non-tender, bilateral knee normal inspection, bilateral knee normal range of motion Ankles: bilateral ankle non-tender, bilateral ankle normal inspection, bilateral ankle normal range of motion Neurologic/Psychiatric: alert, normal mood/affect, oriented x 3 Skin: normal color, warm/dry Progress/Results/Core Measures Results/Orders My Orders Vital Signs/I&O 01/16/20 15:14 Temp 36.0 Pulse 87 Resp 16 B/P (MAP) 101/84 (90) Pulse Ox 91 O2 Delivery Room Air Blood Pressure Mean: 90 Departure Impression Primary Impression: Alcoholism Disposition: 01 HOME, SELF-CARE Condition: Stable Departure-Patient Inst. Decision time for Depature: 15:19 Referrals: HUMA LOZOYA MD (PCP/Family) Primary Care Physician Patient Instructions: Alcohol Abuse and Alcoholism (DC) Add. Discharge Instructions: All discharge instructions reviewed with patient and/or family. Voiced understanding. LI LOPEZ ASSISTANT HAIRSTYLIST Jan 16, 2020 15:20
--- NOTE | 2020-01-16 15:23 | NUR ---
LI STATES PT WANTS TO LEAVE.
== END 2020-01-16 15:24 | disposition home or self-care (01) ==
LOC: EDUNIT# 15:13 → ER 15:14
DX: F10.20 Alcohol dependence, uncomplicated (principal); F31.9 Bipolar disorder, unspecified; F41.9 Anxiety disorder, unspecified; G89.29 Other chronic pain; M54.9 Dorsalgia, unspecified; F17.210 Nicotine dependence, cigarettes, uncomplicated; Z80.8 Family history of malignant neoplasm of other organs or systems; Z79.82 Long term (current) use of aspirin; Z79.891 Long term (current) use of opiate analgesic
CPT/HCPCS: 99283

== ENCOUNTER 2020-01-17 12:10 | Emergency (ER) | payer MEDICARE, MEDICAID | END 2020-01-17 12:42 | disposition left against medical advice (07) | LOC: EDUNIT# 12:10 → ER 12:12 | DX: F10.20 Alcohol dependence, uncomplicated (principal) | CPT/HCPCS: 99281 ==

== ENCOUNTER 2020-01-22 16:13 | Emergency (ER) | payer MEDICARE, MEDICAID ==
[~2020-01-22] VITALS: Ht 152 cm; Wt 44.5 kg
--- NOTE | 2020-01-22 16:22 | ED General ---
General Stated Complaint: ETOH Source of Information: Patient, EMS Exam Limitations: No Limitations History of Present Illness Date Seen by Provider: Jan 22, 2020 Time Seen by Provider: 16:41 Initial Comments To ER by EMS from home with reports of a headache Timing/Duration: 1-2 Days Severity: Moderate Associated Systoms: Denies Symptoms Allergies and Home Medications Allergies Coded Allergies: No Known Drug Allergies (Unverified , 07/20/12) Home Medications Aspirin 81 Mg Tablet.dr, 81 MG PO DAILY, (Reported) Buspirone HCl 10 Mg Tablet, 10 MG PO BID, (Reported) Cefpodoxime Proxetil 200 Mg Tablet, 200 MG PO BID Prescribed by: FINESSE DESAI on 05/04/15 1211 Diclofenac Sodium 75 Mg Tablet.dr, 75 MG PO BID, (Reported) Furosemide 40 Mg Tablet, 40 MG PO DAILY, (Reported) Gabapentin 300 Mg Capsule, 300 MG PO TID, (Reported) Hydrocodone/Acetaminophen 1 Each Tablet, 1 EACH PO Q4H PRN for PAIN Prescribed by: LI LOPEZ on 03/03/16 1620 Levomilnacipran Hydrochloride 80 Mg Cap.sa.24h, 80 MG PO DAILY, (Reported) Loratadine 10 Mg Tablet, 10 MG PO DAILY, (Reported) Lorazepam 0.5 Mg Tablet, 0.5 MG PO DAILY PRN for ANXIETY, (Reported) Multivitamin 1 Each Tablet, 1 TAB PO DAILY, (Reported) Potassium Chloride 20 Meq Tab.er.prt, 20 MEQ PO DAILY, (Reported) Quetiapine Fumarate 100 Mg Tablet, 100 MG PO HS, (Reported) Tizanidine HCl 4 Mg Tablet, 4 MG PO TID PRN for MUSCLE SPASMS, (Reported) Patient Home Medication List Home Medication List Reviewed: Yes Review of Systems Review of Systems Constitutional: see HPI EENTM: see HPI Respiratory: no symptoms reported Cardiovascular: no symptoms reported Genitourinary: no symptoms reported Musculoskeletal: no symptoms reported Skin: no symptoms reported Psychiatric/Neurological: No Symptoms Reported Hematologic/Lymphatic: No Symptoms Reported Past Faypflx-Getyyy-Rcqsqp Hx Patient Social History Alcohol Beverage of Choice: Beer Drug of Choice: CANNIBUS Type Used: Cigarettes 2nd Hand Smoke Exposure: Yes Recent Hopitalizations: No Immunizations Up To Date Tetanus Booster (TDap): Unknown PED Vaccines UTD: No Seasonal Allergies Seasonal Allergies: No Past Medical History Surgeries: Yes (CYST ON OVARY) Respiratory: Yes Sleep Apnea, COPD Currently Using CPAP: No Currently Using BIPAP: No Cardiac: No Neurological: Yes Reproductive Disorders: No Female Reproductive Disorders: Denies Sexually Transmitted Disease: No HIV/AIDS: No Genitourinary: No Gastrointestinal: No Musculoskeletal: Yes (ANKLE FRACTURE) Arthritis, Chronic Back Pain Endocrine: No HEENT: No Cancer: No Psychosocial: Yes (alcoholism) Sleep Difficulties, Anxiety, Suicide Attempts, Bipolar, Depression Integumentary: No Blood Disorders: No Family Medical History Alcoholism 19 FATHER G8 BROTHER G8 BROTHER G8 BROTHER G8 SISTER G8 SISTER FH: brain cancer G8 SISTER Neoplasm 19 MOTHER No Pertinent Family Hx Physical Exam Vital Signs Capillary Refill : Height, Weight, BMI Height: 5'3.00" Weight: 115lbs. 8.0oz. 52.551304ae; 25.00 BMI Method:Estimated General Appearance: No Apparent Distress, WD/WN Eyes: Bilateral Eye Normal Inspection, Bilateral Eye PERRL, Bilateral Eye EOMI Respiratory: No Accessory Muscle Use, No Respiratory Distress Cardiovascular: Regular Rate, Rhythm, Normal Peripheral Pulses Gastrointestinal: Non Tender, Soft Extremity: Normal Capillary Refill, Normal Inspection Neurologic/Psychiatric: Alert, Oriented x3 Skin: Normal Color, Warm/Dry (Which direction I does want to ask) Progress/Results/Core Measures Suspected Sepsis SIRS Temperature: Pulse: Respiratory Rate: Blood Pressure / Mean: Results/Orders Vital Signs/I&O Capillary Refill : Departure Impression Primary Impression: Alcoholism Disposition: 01 HOME, SELF-CARE Condition: Stable Departure-Patient Inst. Decision time for Depature: 16:22 Referrals: HUMA LOZOYA MD (PCP/Family) Primary Care Physician Patient Instructions: Alcohol Abuse and Alcoholism (DC) LI LOPEZ APRN Jan 22, 2020 16:22
[2020-01-22 16:35] VITALS: BP 120/50
== END 2020-01-22 16:57 | disposition home or self-care (01) ==
LOC: EDUNIT# 16:13 → ER 16:14
DX: F10.20 Alcohol dependence, uncomplicated (principal); F31.9 Bipolar disorder, unspecified; F41.9 Anxiety disorder, unspecified; G89.29 Other chronic pain; M54.9 Dorsalgia, unspecified; Z80.8 Family history of malignant neoplasm of other organs or systems; Z77.22 Contact with and (suspected) exposure to environmental tobacco smoke (acute) (chronic); Z79.82 Long term (current) use of aspirin; Z79.891 Long term (current) use of opiate analgesic
CPT/HCPCS: 99283

== ENCOUNTER 2020-01-29 15:04 | Emergency (ER) | payer MEDICARE, MEDICAID ==
[~2020-01-29] VITALS: Ht 152 cm; Wt 44.5 kg
--- NOTE | 2020-01-29 15:07 | ED General ---
General Stated Complaint: NOT FEELING WELL Source of Information: Patient Exam Limitations: No Limitations History of Present Illness Date Seen by Provider: Jan 29, 2020 Time Seen by Provider: 15:05 Initial Comments To ER by EMS from home with reports that she did not feel well. Upon arrival here she states that nothing is wrong with her and she is not sure why EMS brought her. Her cat is probably upset with her for being gone and she would like to go home now. Timing/Duration: 1-2 Days Severity: Moderate Associated Systoms: Denies Symptoms Allergies and Home Medications Allergies Coded Allergies: No Known Drug Allergies (Unverified , 07/20/12) Home Medications Aspirin 81 Mg Tablet.dr, 81 MG PO DAILY, (Reported) Buspirone HCl 10 Mg Tablet, 10 MG PO BID, (Reported) Cefpodoxime Proxetil 200 Mg Tablet, 200 MG PO BID Prescribed by: FINESSE DESAI on 05/04/15 1211 Diclofenac Sodium 75 Mg Tablet.dr, 75 MG PO BID, (Reported) Furosemide 40 Mg Tablet, 40 MG PO DAILY, (Reported) Gabapentin 300 Mg Capsule, 300 MG PO TID, (Reported) Hydrocodone/Acetaminophen 1 Each Tablet, 1 EACH PO Q4H PRN for PAIN Prescribed by: LI LOPEZ on 03/03/16 1620 Levomilnacipran Hydrochloride 80 Mg Cap.sa.24h, 80 MG PO DAILY, (Reported) Loratadine 10 Mg Tablet, 10 MG PO DAILY, (Reported) Lorazepam 0.5 Mg Tablet, 0.5 MG PO DAILY PRN for ANXIETY, (Reported) Multivitamin 1 Each Tablet, 1 TAB PO DAILY, (Reported) Potassium Chloride 20 Meq Tab.er.prt, 20 MEQ PO DAILY, (Reported) Quetiapine Fumarate 100 Mg Tablet, 100 MG PO HS, (Reported) Tizanidine HCl 4 Mg Tablet, 4 MG PO TID PRN for MUSCLE SPASMS, (Reported) Patient Home Medication List Home Medication List Reviewed: Yes Review of Systems Review of Systems Constitutional: see HPI EENTM: see HPI Respiratory: no symptoms reported Cardiovascular: no symptoms reported ( a door handle) Genitourinary: no symptoms reported Musculoskeletal: no symptoms reported Skin: no symptoms reported Psychiatric/Neurological: No Symptoms Reported Past Nbztfbh-Shwqzp-Shglyq Hx Patient Social History Alcohol Beverage of Choice: Beer Drug of Choice: CANNIBUS Type Used: Cigarettes 2nd Hand Smoke Exposure: Yes Recent Hopitalizations: No Immunizations Up To Date Tetanus Booster (TDap): Unknown PED Vaccines UTD: No Seasonal Allergies Seasonal Allergies: No Past Medical History Surgeries: Yes (CYST ON OVARY) Respiratory: Yes Sleep Apnea, COPD Currently Using CPAP: No Currently Using BIPAP: No Cardiac: No Neurological: Yes Reproductive Disorders: No Female Reproductive Disorders: Denies Sexually Transmitted Disease: No HIV/AIDS: No Genitourinary: No Gastrointestinal: No Musculoskeletal: Yes (ANKLE FRACTURE) Arthritis, Chronic Back Pain Endocrine: No HEENT: No Cancer: No Psychosocial: Yes (alcoholism) Sleep Difficulties, Anxiety, Suicide Attempts, Bipolar, Depression Integumentary: No Blood Disorders: No Family Medical History No Pertinent Family Hx Physical Exam Vital Signs Capillary Refill : Height, Weight, BMI Height: 5'3.00" Weight: 115lbs. 8.0oz. 52.919506nu; 19.00 BMI Method:Estimated General Appearance: No Apparent Distress, WD/WN Eyes: Bilateral Eye Normal Inspection, Bilateral Eye PERRL HEENT: PERRL/EOMI, TMs Normal Neck: Full Range of Motion, Normal Inspection Respiratory: No Accessory Muscle Use, No Respiratory Distress Cardiovascular: Regular Rate, Rhythm, Normal Peripheral Pulses Gastrointestinal: Normal Bowel Sounds, Non Tender, Soft Extremity: Normal Capillary Refill, Normal Inspection Neurologic/Psychiatric: Alert, Oriented x3 Skin: Normal Color, Warm/Dry Progress/Results/Core Measures Suspected Sepsis SIRS Temperature: Pulse: Respiratory Rate: Blood Pressure / Mean: Results/Orders Vital Signs/I&O Capillary Refill : Departure Impression Primary Impression: Alcoholism Disposition: 01 HOME, SELF-CARE Condition: Stable Departure-Patient Inst. Decision time for Depature: 15:06 Referrals: HUMA LOZOYA MD (PCP/Family) Primary Care Physician Patient Instructions: Alcohol Abuse and Alcoholism (DC) LI LOPEZ APRN Jan 29, 2020 15:07
[2020-01-29 15:14] VITALS: BP 112/83
== END 2020-01-29 15:25 | disposition home or self-care (01) ==
LOC: EDUNIT# 15:04 → ER 15:05
DX: F10.20 Alcohol dependence, uncomplicated (principal); F41.9 Anxiety disorder, unspecified; F31.9 Bipolar disorder, unspecified; G89.29 Other chronic pain; M54.9 Dorsalgia, unspecified; Z77.22 Contact with and (suspected) exposure to environmental tobacco smoke (acute) (chronic); Z79.82 Long term (current) use of aspirin; Z79.891 Long term (current) use of opiate analgesic
CPT/HCPCS: 99283

== ENCOUNTER 2020-02-11 11:30 | Emergency (ER) | payer MEDICARE, MEDICAID ==
[~2020-02-11] VITALS: Ht 165.1 cm; Wt 58.9 kg
[2020-02-11 11:30] VITALS: BP 130/99
--- NOTE | 2020-02-11 11:42 | ED General ---
General Chief Complaint: General Problems/Pain Stated Complaint: NOT FEELING WELL Source of Information: Patient Exam Limitations: No Limitations History of Present Illness Date Seen by Provider: Feb 11, 2020 Time Seen by Provider: 11:41 Initial Comments To ER by EMS with reports of not feeling well Timing/Duration: 1-2 Days Severity: Moderate Associated Systoms: Denies Symptoms Allergies and Home Medications Allergies Coded Allergies: No Known Drug Allergies (Unverified , 07/20/12) Home Medications Aspirin 81 Mg Tablet.dr, 81 MG PO DAILY, (Reported) Buspirone HCl 10 Mg Tablet, 10 MG PO BID, (Reported) Cefpodoxime Proxetil 200 Mg Tablet, 200 MG PO BID Prescribed by: FINESSE DESAI on 05/04/15 1211 Diclofenac Sodium 75 Mg Tablet.dr, 75 MG PO BID, (Reported) Furosemide 40 Mg Tablet, 40 MG PO DAILY, (Reported) Gabapentin 300 Mg Capsule, 300 MG PO TID, (Reported) Hydrocodone/Acetaminophen 1 Each Tablet, 1 EACH PO Q4H PRN for PAIN Prescribed by: LI LOPEZ on 03/03/16 1620 Levomilnacipran Hydrochloride 80 Mg Cap.sa.24h, 80 MG PO DAILY, (Reported) Loratadine 10 Mg Tablet, 10 MG PO DAILY, (Reported) Lorazepam 0.5 Mg Tablet, 0.5 MG PO DAILY PRN for ANXIETY, (Reported) Multivitamin 1 Each Tablet, 1 TAB PO DAILY, (Reported) Potassium Chloride 20 Meq Tab.er.prt, 20 MEQ PO DAILY, (Reported) Quetiapine Fumarate 100 Mg Tablet, 100 MG PO HS, (Reported) Tizanidine HCl 4 Mg Tablet, 4 MG PO TID PRN for MUSCLE SPASMS, (Reported) Patient Home Medication List Home Medication List Reviewed: Yes Review of Systems Review of Systems Constitutional: see HPI EENTM: see HPI Respiratory: no symptoms reported Cardiovascular: no symptoms reported Genitourinary: no symptoms reported Musculoskeletal: no symptoms reported Skin: no symptoms reported Psychiatric/Neurological: No Symptoms Reported Hematologic/Lymphatic: No Symptoms Reported Past Ujuzgls-Mhrdoe-Cmgmew Hx Patient Social History Alcohol Beverage of Choice: Beer Drug of Choice: CANNIBUS Type Used: Cigarettes 2nd Hand Smoke Exposure: Yes Recent Hopitalizations: No Immunizations Up To Date Tetanus Booster (TDap): Unknown PED Vaccines UTD: No Seasonal Allergies Seasonal Allergies: No Past Medical History Surgeries: Yes (CYST ON OVARY) Respiratory: Yes Sleep Apnea, COPD Currently Using CPAP: No Currently Using BIPAP: No Cardiac: No Neurological: Yes Reproductive Disorders: No Female Reproductive Disorders: Denies Sexually Transmitted Disease: No HIV/AIDS: No Genitourinary: No Gastrointestinal: No Musculoskeletal: Yes (ANKLE FRACTURE) Arthritis, Chronic Back Pain Endocrine: No HEENT: No Cancer: No Psychosocial: Yes (alcoholism) Sleep Difficulties, Anxiety, Suicide Attempts, Bipolar, Depression Integumentary: No Blood Disorders: No Family Medical History Alcoholism 19 FATHER G8 BROTHER G8 BROTHER G8 BROTHER G8 SISTER G8 SISTER FH: brain cancer G8 SISTER Neoplasm 19 MOTHER No Pertinent Family Hx Physical Exam Vital Signs Vital Signs - First Documented 02/11/20 11:30 Temp 35.8 Pulse 90 Resp 24 B/P (MAP) 130/99 (109) Pulse Ox 97 O2 Delivery Room Air Capillary Refill : Height, Weight, BMI Height: 5'3.00" Weight: 115lbs. 8.0oz. 52.323929gm; 19.00 BMI Method:Estimated General Appearance: No Apparent Distress, WD/WN Eyes: Bilateral Eye Normal Inspection, Bilateral Eye PERRL, Bilateral Eye EOMI Neck: Full Range of Motion, Normal Inspection Respiratory: Normal Breath Sounds, No Accessory Muscle Use, No Respiratory Distress Gastrointestinal: Non Tender, Soft Extremity: Normal Capillary Refill, Normal Inspection Neurologic/Psychiatric: Alert, Oriented x3 Skin: Normal Color, Warm/Dry Progress/Results/Core Measures Suspected Sepsis SIRS Temperature: Pulse: Respiratory Rate: Blood Pressure / Mean: Results/Orders Vital Signs/I&O 02/11/20 11:30 Temp 35.8 Pulse 90 Resp 24 B/P (MAP) 130/99 (109) Pulse Ox 97 O2 Delivery Room Air Capillary Refill : Departure Impression Primary Impression: Alcoholism Disposition: 01 HOME, SELF-CARE Condition: Stable Departure-Patient Inst. Decision time for Depature: 11:41 Referrals: HUMA LOZOYA MD (PCP/Family) Primary Care Physician Patient Instructions: ALCOHOL AND SUBSTANCE ABUSE Add. Discharge Instructions: All discharge instructions reviewed with patient and/or family. Voiced understanding. LI LOPEZ APRN Feb 11, 2020 11:42
== END 2020-02-11 11:45 | disposition home or self-care (01) ==
LOC: EDUNIT# 11:30 → ER 11:32
DX: F10.20 Alcohol dependence, uncomplicated (principal); F41.9 Anxiety disorder, unspecified; F31.9 Bipolar disorder, unspecified; G89.29 Other chronic pain; M54.9 Dorsalgia, unspecified; Z80.8 Family history of malignant neoplasm of other organs or systems; Z77.22 Contact with and (suspected) exposure to environmental tobacco smoke (acute) (chronic); Z79.82 Long term (current) use of aspirin; Z79.891 Long term (current) use of opiate analgesic
CPT/HCPCS: 99283

== ENCOUNTER 2020-02-12 14:48 | Emergency (ER) | payer MEDICARE, MEDICAID ==
[~2020-02-12] VITALS: Ht 165.1 cm; Wt 58.9 kg
[2020-02-12 14:48] VITALS: BP 136/88
--- NOTE | 2020-02-12 14:51 | ED General ---
General Stated Complaint: AMS Source of Information: Patient Exam Limitations: No Limitations History of Present Illness Date Seen by Provider: Feb 12, 2020 Time Seen by Provider: 14:50 Initial Comments To ER by EMS with reports of not feeling well. Reportedly upon entering the ambulance she advised them she just needed a ride to get alcohol. Timing/Duration: 1-2 Days Severity: Moderate Associated Systoms: Denies Symptoms Allergies and Home Medications Patient Home Medication List Home Medication List Reviewed: Yes Review of Systems Review of Systems Constitutional: see HPI EENTM: see HPI Respiratory: no symptoms reported Cardiovascular: no symptoms reported Genitourinary: no symptoms reported Musculoskeletal: no symptoms reported Skin: no symptoms reported Psychiatric/Neurological: No Symptoms Reported Hematologic/Lymphatic: No Symptoms Reported Physical Exam Vital Signs Capillary Refill : Height, Weight, BMI Height: '" Weight: lbs. oz. kg; BMI Method: General Appearance: No Apparent Distress, WD/WN Eyes: Bilateral Eye Normal Inspection, Bilateral Eye PERRL Respiratory: No Accessory Muscle Use, No Respiratory Distress Gastrointestinal: Normal Bowel Sounds, Non Tender, Soft Extremity: Normal Capillary Refill, Normal Inspection Neurologic/Psychiatric: Alert, Oriented x3 Skin: Normal Color, Warm/Dry Progress/Results/Core Measures Suspected Sepsis SIRS Temperature: Pulse: Respiratory Rate: Blood Pressure / Mean: Results/Orders Vital Signs/I&O Capillary Refill : Departure Impression Primary Impression: Alcoholism Disposition: 01 HOME, SELF-CARE Condition: Stable Departure-Patient Inst. Decision time for Depature: 14:51 Patient Instructions: Alcohol Abuse and Alcoholism (DC) LI LOPEZ APRN Feb 12, 2020 14:51
== END 2020-02-12 14:58 | disposition home or self-care (01) ==
LOC: EDUNIT# 14:48 → ER 14:49
DX: F10.20 Alcohol dependence, uncomplicated (principal)
CPT/HCPCS: 99283

== ENCOUNTER 2020-02-14 16:02 | Emergency (ER) | payer MEDICARE, MEDICAID ==
[~2020-02-14] VITALS: Ht 171 cm; Wt 68.0 kg
--- NOTE | 2020-02-14 16:25 | ED Psychosocial ---
General Chief Complaint: General Problems/Pain Stated Complaint: GENERAL PAIN Nursing Triage Note: THE PT ARRIVAL BY EMS. THE PT IS AMBULATORY TO THE ROOM. NO DISTRESS IS SEEN ON ARRIVAL. LOC IS NORMAL FOR THIS PT. Source: patient, old records Exam Limitations: no limitations History of Present Illness Date Seen by Provider: Feb 14, 2020 Time Seen by Provider: 16:15 Initial Comments This 64-year-old woman well-known to this emergency room presents via EMSStating she would like to stop drinking alcohol. She reports some intermittent shortness of breath. She does have COPD and has inhalers for treatment at home. She is not in any distress and denies any other physical symptoms at this time. She is ambulating freely, is alert and oriented, and has normal vital signs. She appears under the influence of alcohol. Allergies and Home Medications Allergies Coded Allergies: No Known Drug Allergies (Unverified , 07/20/12) Home Medications Aspirin 81 Mg Tablet.dr, 81 MG PO DAILY, (Reported) Buspirone HCl 10 Mg Tablet, 10 MG PO BID, (Reported) Cefpodoxime Proxetil 200 Mg Tablet, 200 MG PO BID Prescribed by: FINESSE DESAI on 05/04/15 1211 Diclofenac Sodium 75 Mg Tablet.dr, 75 MG PO BID, (Reported) Furosemide 40 Mg Tablet, 40 MG PO DAILY, (Reported) Gabapentin 300 Mg Capsule, 300 MG PO TID, (Reported) Hydrocodone/Acetaminophen 1 Each Tablet, 1 EACH PO Q4H PRN for PAIN Prescribed by: LI LOPEZ on 03/03/16 1620 Levomilnacipran Hydrochloride 80 Mg Cap.sa.24h, 80 MG PO DAILY, (Reported) Loratadine 10 Mg Tablet, 10 MG PO DAILY, (Reported) Lorazepam 0.5 Mg Tablet, 0.5 MG PO DAILY PRN for ANXIETY, (Reported) Multivitamin 1 Each Tablet, 1 TAB PO DAILY, (Reported) Potassium Chloride 20 Meq Tab.er.prt, 20 MEQ PO DAILY, (Reported) Quetiapine Fumarate 100 Mg Tablet, 100 MG PO HS, (Reported) Tizanidine HCl 4 Mg Tablet, 4 MG PO TID PRN for MUSCLE SPASMS, (Reported) Patient Home Medication List Home Medication List Reviewed: Yes Review of Systems Constitutional: see HPI EENTM: no symptoms reported Respiratory: see HPI Cardiovascular: no symptoms reported; No chest pain Gastrointestinal: no symptoms reported Genitourinary: no symptoms reported : No Musculoskeletal: no symptoms reported Skin: no symptoms reported Psychiatric/Neurological: See HPI Past Lepdkpl-Xieewm-Holvom Hx Past Med/Social Hx: Reviewed Nursing Past Med/Soc Hx Patient Social History Alcohol Beverage of Choice: Beer Drug of Choice: CANNIBUS Type Used: Cigarettes 2nd Hand Smoke Exposure: Yes Recent Foreign Travel: No Contact w/Someone Who Travel: No Recent Infectious Disease Expo: No Recent Hopitalizations: No Physical Abuse: No Sexual Abuse: No Mistreated: No Fear: No Immunizations Up To Date Tetanus Booster (TDap): Unknown PED Vaccines UTD: No Seasonal Allergies Seasonal Allergies: No Past Medical History Surgeries: Yes (CYST ON OVARY) Respiratory: Yes Sleep Apnea, COPD Currently Using CPAP: No Currently Using BIPAP: No Cardiac: No Neurological: Yes Reproductive Disorders: No Female Reproductive Disorders: Denies Sexually Transmitted Disease: No HIV/AIDS: No Genitourinary: No Gastrointestinal: No Musculoskeletal: Yes (ANKLE FRACTURE) Arthritis, Chronic Back Pain Endocrine: No HEENT: No Cancer: No Psychosocial: Yes (alcoholism) Sleep Difficulties, Anxiety, Suicide Attempts, Bipolar, Depression Integumentary: No Blood Disorders: No Family Medical History Alcoholism 19 FATHER G8 BROTHER G8 BROTHER G8 BROTHER G8 SISTER G8 SISTER FH: brain cancer G8 SISTER Neoplasm 19 MOTHER No Pertinent Family Hx Physical Exam Vital Signs - First Documented 02/14/20 02/14/20 16:14 16:27 Temp 36.7 Pulse 80 Resp 16 B/P (MAP) 132/86 (101) Pulse Ox 95 Capillary Refill : Less Than 3 Seconds Height, Weight, BMI Height: 5'3.00" Weight: 115lbs. 8.0oz. 52.310612sm; 23.00 BMI Method:Estimated General Appearance: WD/WN, no apparent distress, thin HEENT: PERRL/EOMI, normal ENT inspection, pharynx normal Neck: normal inspection Respiratory: no respiratory distress, wheezing (Mild) Cardiovascular: regular rate, rhythm, no edema, no murmur Gastrointestinal: non tender, soft Extremities: normal inspection, no pedal edema Neurologic/Psychiatric: certified medical coder II-XII nml as tested, no motor/sensory deficits, alert, normal mood/affect, oriented x 3 Appearance/Memory: appropriate appearance Behavior/Eye Contact: cooperative, good eye contact Skin: normal color, warm/dry Progress/Results/Core Measures Results/Orders Vital Signs/I&O Blood Pressure Mean: 101 Progress Progress Note : Progress Note I discussed appropriate ways to seek alcohol abuse treatment with the patient. I advised That she seek assistance at [facility] with the addiction treatment program since she receives her medical care there. Patient left prior to receiving her discharge papers. Departure Impression Primary Impression: Alcoholism Additional Impression: COPD (chronic obstructive pulmonary disease) Qualified Codes: J44.9 - Chronic obstructive pulmonary disease, unspecified Disposition: HOME, SELF-CARE Condition: Stable Departure-Patient Inst. Decision time for Depature: 16:24 Referrals: HUMA LOZOYA MD (PCP/Family) Primary Care Physician Patient Instructions: Alcohol Abuse and Alcoholism (DC), Chronic Obstructive Pulmonary Disease (COPD), Including Emphysema Add. Discharge Instructions: Continue to use your inhalers as prescribed when you feel short of breath or wheezy. Contact to the addiction treatment services at [facility] to talk about addiction rehab programs to treat your alcoholism. Call or return to care if you have other problems or concerns. All discharge instructions reviewed with patient and/or family. Voiced understanding. MALIA JOLLY MD Feb 14, 2020 16:25
[2020-02-14 16:27] VITALS: BP 132/86
== END 2020-02-14 16:29 | disposition home or self-care (01) ==
LOC: EDUNIT# 16:02 → ER 16:04
DX: J44.9 Chronic obstructive pulmonary disease, unspecified (principal); F10.20 Alcohol dependence, uncomplicated; F41.9 Anxiety disorder, unspecified; F31.9 Bipolar disorder, unspecified; G89.29 Other chronic pain; Z77.22 Contact with and (suspected) exposure to environmental tobacco smoke (acute) (chronic); Z80.8 Family history of malignant neoplasm of other organs or systems; Z79.82 Long term (current) use of aspirin; Z79.891 Long term (current) use of opiate analgesic
CPT/HCPCS: 99281

== ENCOUNTER 2020-02-16 16:49 | Emergency (ER) | payer MEDICARE, MEDICAID ==
[~2020-02-16] VITALS: Ht 171 cm; Wt 68.0 kg
[2020-02-16 16:51] VITALS: BP 115/83
[2020-02-16] MEDS ORDERED: LACTATED RINGERS 1,000 ML IV ONE (17:00)
--- NOTE | 2020-02-16 17:04 | ED General ---
General Chief Complaint: General Problems/Pain Stated Complaint: AMS Nursing Triage Note: PT BROUGHT IN BY [facility] FROM HOME WITH COMPLAINT OF NOT FEELING GOOD. Nursing Sepsis Screen: No Definite Risk Source of Information: Patient (VERY LIMITED HISTORIAN), Old Records Exam Limitations: Intoxication History of Present Illness Date Seen by Provider: Feb 16, 2020 Time Seen by Provider: 16:50 Initial Comments PT ARRIVES VIA EMS FROM HOME--EMS REPORT THAT PT WAS WAITING OUTSIDE FOR THEM AND WALKED TO AMBULANCE AND WALKED INTO ER ON HER OWN PT WITH LONGSTANDING ALCOHOLISM WITH A MULTITUDE OF VISITS--NEARLY ALL JUST BECAUSE SHE IS DRUNK PT WITH HEAVY/DAILY ETOH SHE STATES "JUST DON'T FEEL GOOD" TODAY--PT UNABLE TO ELABORATE OR GIVE ANY SYMPTOMS OF ANY KIND PT TALKS TO EVERYONE IN ER AND TALKS ABOUT EVERYTHING EXCEPT WHAT BROUGHT HER TO ER TELLS EVERYONE IN ER "I LOVE YOU" ON DIRECT QUESTIONING, TO WHY SHE IS HERE, SHE STATES "I DON'T HAVE NO WHERE ELSE TO GO" PT ALSO FREQUENTS TREVOR ER--STATES "I JUST WANT TO SEE WHAT THEY'RE LIKE OVER THERE" THIS IS PT'S 4TH VISIT IN 2020--ALL SIMPLY BECAUSE SHE IS DRUNK--MOST OF TIME, SHE IS READY TO LEAVE SOON SHE ARRIVES. PT SEEN HERE ON 02/10, 02/11, 02/14/20 PCP: DR. DEVORA MAST Allergies and Home Medications Allergies Coded Allergies: No Known Drug Allergies (Unverified , 07/20/12) Home Medications Aspirin 81 Mg Tablet., 81 MG PO DAILY, (Reported) Buspirone HCl 10 Mg Tablet, 10 MG PO BID, (Reported) Cefpodoxime Proxetil 200 Mg Tablet, 200 MG PO BID Prescribed by: FINESSE DESAI on 05/04/15 1211 Diclofenac Sodium 75 Mg Tablet., 75 MG PO BID, (Reported) Furosemide 40 Mg Tablet, 40 MG PO DAILY, (Reported) Gabapentin 300 Mg Capsule, 300 MG PO TID, (Reported) Hydrocodone/Acetaminophen 1 Each Tablet, 1 EACH PO Q4H PRN for PAIN Prescribed by: LI LOPEZ on 03/03/16 1620 Levomilnacipran Hydrochloride 80 Mg Cap.sa.24h, 80 MG PO DAILY, (Reported) Loratadine 10 Mg Tablet, 10 MG PO DAILY, (Reported) Lorazepam 0.5 Mg Tablet, 0.5 MG PO DAILY PRN for ANXIETY, (Reported) Multivitamin 1 Each Tablet, 1 TAB PO DAILY, (Reported) Potassium Chloride 20 Meq Tab.er.prt, 20 MEQ PO DAILY, (Reported) Quetiapine Fumarate 100 Mg Tablet, 100 MG PO HS, (Reported) Tizanidine HCl 4 Mg Tablet, 4 MG PO TID PRN for MUSCLE SPASMS, (Reported) Patient Home Medication List Home Medication List Reviewed: Yes Review of Systems Review of Systems Constitutional: see HPI Past Qadizcw-Ucgubg-Hezunp Hx Past Med/Social Hx: Reviewed and Corrections made Patient Social History Alcohol Use: Regular Use Number of Drinks Today: AA Alcohol Beverage of Choice: Beer Recreational Drug Use: Yes Drug of Choice: CANNIBUS Smoking Status: Current Everyday Smoker Type Used: Cigarettes 2nd Hand Smoke Exposure: Yes Recent Foreign Travel: No Contact w/Someone Who Travel: No Recent Infectious Disease Expo: No Recent Hopitalizations: No Immunizations Up To Date Tetanus Booster (TDap): Unknown PED Vaccines UTD: No Seasonal Allergies Seasonal Allergies: No Past Medical History Surgeries: Yes (CYST ON OVARY) Respiratory: Yes Sleep Apnea, COPD Currently Using CPAP: No Currently Using BIPAP: No Cardiac: No Neurological: Yes Reproductive Disorders: No Female Reproductive Disorders: Denies Sexually Transmitted Disease: No HIV/AIDS: No Genitourinary: No Gastrointestinal: No Musculoskeletal: Yes (ANKLE FRACTURE) Arthritis, Chronic Back Pain Endocrine: No HEENT: No Cancer: No Psychosocial: Yes (ALCOHOLISM, THC USE) Sleep Difficulties, Anxiety, Suicide Attempts, Bipolar, Depression Integumentary: No Blood Disorders: No Family Medical History Alcoholism 19 FATHER G8 BROTHER G8 BROTHER G8 BROTHER G8 SISTER G8 SISTER FH: brain cancer G8 SISTER Neoplasm 19 MOTHER No Pertinent Family Hx Physical Exam Vital Signs Vital Signs - First Documented 02/16/20 16:51 Temp 35.5 Pulse 77 Resp 20 B/P (MAP) 115/83 (94) Pulse Ox 97 O2 Delivery Room Air Capillary Refill : Less Than 3 Seconds Height, Weight, BMI Height: 5'3.00" Weight: 115lbs. 8.0oz. 52.068074no; 23.00 BMI Method:Estimated General Appearance: Thin, Other (UNKEMPT. DOES NOT APPEAR ILL OR TO BE IN ANY DISCOMFORT OR DISTRESS. SPEECH SLIGHLY SLURRED, GAIT FAIRLY STEADY, REEKS OF ETOH, CIGARETTES AND THC--ALL ARE PT'S NORMAL PRESENTATION. ) Respiratory: Normal Breath Sounds, No Accessory Muscle Use, No Respiratory Distress Cardiovascular: Regular Rate, Rhythm, No Murmur Gastrointestinal: Non Tender, Soft Extremity: Normal Capillary Refill Progress/Results/Core Measures Suspected Sepsis Recent Fever Within 48 Hours: No Infection Criteria Present: None New/Unexplained Altered Menta: No Sepsis Screen: No Definite Risk SIRS Temperature: Pulse: 77 Respiratory Rate: 20 Laboratory Tests 02/16/20 17:04: White Blood Count 7.7 Blood Pressure 115 /83 Mean: 94 Laboratory Tests 02/16/20 17:04: Creatinine 0.56L, Platelet Count 154, Total Bilirubin 0.4 Results/Orders Lab Results My Orders Vital Signs/I&O Capillary Refill : Less Than 3 Seconds Blood Pressure Mean: 94 Progress Note : Progress Note PT INITIALLY AGREES TO LAB, IV FLUIDS 1705--PT HAS BEEN TO BATHROOM AND BACK AND PT NOW STATES SHE IS READY TO LEAVE. SIGNING OUT AMA. PT AMBULATES OUT OF ER ON HER OWN. Departure Impression Primary Impression: Alcoholism Additional Impression: Left against medical advice Disposition: 07 AGAINST MEDICAL ADVICE Condition: Against Medical Advice Departure-Patient Inst. Referrals: HUMA LOZOYA MD (PCP/Family) Primary Care Physician AMBER MCKEON DO Feb 16, 2020 17:04
[2020-02-16 17:13] LABS: BILIRUBIN,URINE NEGATIVE (NEGATIVE); CLARITY,URINE CLEAR; COLOR,URINE YELLOW; GLUCOSE, URINE (UA) NEGATIVE (NEGATIVE); KETONES,URINE NEGATIVE (NEGATIVE); LEUKOCYTE ESTERASE ,URINE NEGATIVE (NEGATIVE); NITRITE,URINE NEGATIVE (NEGATIVE); PH,URINE 5.5 (5-9); PROTEIN,URINE NEGATIVE (NEGATIVE)
[2020-02-16 17:26] LABS: BASOPHILS # (AUTO) 0.1 10^3/uL (0.0-0.1); BASOPHILS % (AUTO) 1 % (0-10); EOSINOPHILS # (AUTO) 0.1 10^3/uL (0.0-0.3); EOSINOPHILS % (AUTO) 1 % (0-10); HEMATOCRIT 43 % (35-52); LYMPHOCYTES % (AUTO) 39 % (12-44); MEAN CORPUSCULAR HEMOGLOBIN 35 pg (25-34); MEAN CORPUSCULAR HGB CONC 35 g/dL (32-36); MEAN CORPUSCULAR VOLUME 102 fL (80-99); MEAN PLATELET VOLUME 11.7 fL (9.0-12.2); MONOCYTES # (AUTO) 0.8 10^3/uL (0.0-1.0); MONOCYTES % (AUTO) 10 % (0-12); NEUTROPHILS # (AUTO) 3.7 10^3/uL (1.8-7.8); NEUTROPHILS % (AUTO) 48 % (42-75); PLATELET COUNT 154 10^3/uL (130-400); WHITE BLOOD COUNT 7.7 10^3/uL (4.3-11.0)
[2020-02-16 17:27] LABS: AMPHETAMINE SCREEN, URINE NEGATIVE (NEGATIVE); BARBITURATE SCREEN URINE NEGATIVE (NEGATIVE); BENZODIAZEPINES SCREEN URINE NEGATIVE (NEGATIVE); CANNABINOID SCREEN, URINE NEGATIVE (NEGATIVE); COCAINE SCREEN URINE NEGATIVE (NEGATIVE); METHADONE STAT NEGATIVE (NEGATIVE); METHAMPHETAMINE SCREEN URINE S NEGATIVE (NEGATIVE); OPIATE SCREEN URINE NEGATIVE (NEGATIVE); OXYCODONE STAT NEGATIVE (NEGATIVE); PROPOXYPHENE STAT NEGATIVE (NEGATIVE); TRICYCLIC ANTIDEPRESSANTS SCRE NEGATIVE (NEGATIVE)
[2020-02-16 17:30] LABS: BACTERIA,URINE NEGATIVE /HPF; SQUAMOUS EPITHELIAL CELL,UR RARE /HPF
[2020-02-16 17:33] LABS: ALBUMIN 4.4 GM/DL (3.2-4.5); CHLORIDE 97 MMOL/L (98-107); POTASSIUM 4.3 MMOL/L (3.6-5.0); SODIUM 130 MMOL/L (135-145)
[2020-02-16 17:35] LABS: AMYLASE 84 U/L (25-125); CALCIUM 8.9 MG/DL (8.5-10.1)
[2020-02-16 17:36] LABS: GLUCOSE 89 MG/DL (70-105); TOTAL PROTEIN 7.6 GM/DL (6.4-8.2)
[2020-02-16 17:37] LABS: CARBON DIOXIDE 21 MMOL/L (21-32)
[2020-02-16 17:38] LABS: BILIRUBIN,TOTAL 0.4 MG/DL (0.1-1.0)
[2020-02-16 17:39] LABS: ALKALINE PHOSPHATASE 97 U/L (40-136); CREATININE SERUM 0.56 MG/DL (0.60-1.30); GFR ESTIMATED > 60
[2020-02-16 17:40] LABS: BUN/CREATININE RATIO 13
[2020-02-16 17:42] LABS: ALANINE AMINOTRANSFERASE 26 U/L (0-55); MAGNESIUM 2.2 MG/DL (1.6-2.4)
[2020-02-16 17:43] LABS: LIPASE 24 U/L (8-78)
== END 2020-02-16 17:14 | disposition left against medical advice (07) ==
LOC: EDUNIT# 16:49 → ER 16:50
DX: F10.20 Alcohol dependence, uncomplicated (principal); F31.9 Bipolar disorder, unspecified; F41.9 Anxiety disorder, unspecified; G89.29 Other chronic pain; F17.210 Nicotine dependence, cigarettes, uncomplicated; Z80.8 Family history of malignant neoplasm of other organs or systems; Z79.82 Long term (current) use of aspirin; Z79.891 Long term (current) use of opiate analgesic
CPT/HCPCS: 80053; 80306; 81000; 82150; 83690; 83735; 84484; 85025; 99283; G0480; 36415; 80320

== ENCOUNTER 2020-02-22 16:57 | Emergency (ER) | payer MEDICARE, MEDICAID ==
[~2020-02-22] VITALS: Ht 152.4 cm; Wt 63.5 kg
[2020-02-22 17:02] VITALS: BP 137/76
--- NOTE | 2020-02-22 17:11 | ED Lower Extremity ---
General Chief Complaint: Lower Extremity Stated Complaint: GENERAL PAIN Nursing Triage Note: PT TO ROOM FT3 WITH C/O RIGHT ANKLE PAIN. Nursing Sepsis Screen: No Definite Risk Source: patient Exam Limitations: no limitations History of Present Illness Date Seen by Provider: Feb 22, 2020 Time Seen by Provider: 17:10 Initial Comments To ER by EMS with ankle pain. Upon arrival here she states she like a taxi him to go home so that she can take a shower and go to bed. Her cat is not doing well and she is concerned about it Onset: other Severity: moderate Pain/Injury Location: right ankle Method of Injury: unknown Modifying Factors: Worse With Movement Allergies and Home Medications Allergies Coded Allergies: No Known Drug Allergies (Unverified , 07/20/12) Home Medications Aspirin 81 Mg Tablet.dr, 81 MG PO DAILY, (Reported) Buspirone HCl 10 Mg Tablet, 10 MG PO BID, (Reported) Cefpodoxime Proxetil 200 Mg Tablet, 200 MG PO BID Prescribed by: FINESSE DESAI on 05/04/15 1211 Diclofenac Sodium 75 Mg Tablet.dr, 75 MG PO BID, (Reported) Furosemide 40 Mg Tablet, 40 MG PO DAILY, (Reported) Gabapentin 300 Mg Capsule, 300 MG PO TID, (Reported) Hydrocodone/Acetaminophen 1 Each Tablet, 1 EACH PO Q4H PRN for PAIN Prescribed by: LI LOPEZ on 03/03/16 1620 Levomilnacipran Hydrochloride 80 Mg Cap.sa.24h, 80 MG PO DAILY, (Reported) Loratadine 10 Mg Tablet, 10 MG PO DAILY, (Reported) Lorazepam 0.5 Mg Tablet, 0.5 MG PO DAILY PRN for ANXIETY, (Reported) Multivitamin 1 Each Tablet, 1 TAB PO DAILY, (Reported) Potassium Chloride 20 Meq Tab.er.prt, 20 MEQ PO DAILY, (Reported) Quetiapine Fumarate 100 Mg Tablet, 100 MG PO HS, (Reported) Tizanidine HCl 4 Mg Tablet, 4 MG PO TID PRN for MUSCLE SPASMS, (Reported) Patient Home Medication List Home Medication List Reviewed: Yes Review of Systems Constitutional: see HPI EENTM: see HPI Respiratory: no symptoms reported Cardiovascular: no symptoms reported Genitourinary: no symptoms reported Musculoskeletal: no symptoms reported Skin: no symptoms reported Psychiatric/Neurological: No Symptoms Reported Past Msfttkb-Hlnahd-Thntwv Hx Patient Social History Alcohol Use: Regular Use Number of Drinks Today: AA Alcohol Beverage of Choice: Beer Drug of Choice: CANNIBUS Smoking Status: Current Everyday Smoker Type Used: Cigarettes 2nd Hand Smoke Exposure: Yes Recent Infectious Disease Expo: No Recent Hopitalizations: No Immunizations Up To Date Tetanus Booster (TDap): Unknown PED Vaccines UTD: No Seasonal Allergies Seasonal Allergies: No Past Medical History Surgeries: Yes (CYST ON OVARY) Respiratory: Yes Sleep Apnea, COPD Currently Using CPAP: No Currently Using BIPAP: No Cardiac: No Neurological: Yes Reproductive Disorders: No Female Reproductive Disorders: Denies Sexually Transmitted Disease: No HIV/AIDS: No Genitourinary: No Gastrointestinal: No Musculoskeletal: Yes (ANKLE FRACTURE) Arthritis, Chronic Back Pain Endocrine: No HEENT: No Cancer: No Psychosocial: Yes (ALCOHOLISM, THC USE) Sleep Difficulties, Anxiety, Suicide Attempts, Bipolar, Depression Integumentary: No Blood Disorders: No Family Medical History Alcoholism 19 FATHER G8 BROTHER G8 BROTHER G8 BROTHER G8 SISTER G8 SISTER FH: brain cancer G8 SISTER Neoplasm 19 MOTHER No Pertinent Family Hx Physical Exam Vital Signs Vital Signs - First Documented 02/22/20 17:02 Temp 36.5 Pulse 69 Resp 17 B/P (MAP) 137/76 (96) O2 Delivery Room Air Capillary Refill : Less Than 3 Seconds Height, Weight, BMI Height: 5'3.00" Weight: 115lbs. 8.0oz. 52.023391oy; 27.00 BMI Method:Estimated General Appearance: WD/WN, no apparent distress HEENT: PERRL/EOMI, normal ENT inspection Respiratory: no respiratory distress, no accessory muscle use Hips: bilateral hip non-tender, bilateral hip normal inspection, bilateral hip normal range of motion Legs: bilateral leg non-tender, bilateral leg normal inspection, bilateral leg normal range of motion Knees: bilateral knee non-tender, bilateral knee normal inspection, bilateral knee normal range of motion Ankles: bilateral ankle non-tender, bilateral ankle normal inspection, bilateral ankle normal range of motion Feet: bilateral foot non-tender, bilateral foot normal inspection, bilateral foot normal range of motion Neurologic/Psychiatric: alert, normal mood/affect, oriented x 3 Skin: normal color Progress/Results/Core Measures Results/Orders Vital Signs/I&O 02/22/20 17:02 Temp 36.5 Pulse 69 Resp 17 B/P (MAP) 137/76 (96) O2 Delivery Room Air Blood Pressure Mean: 96 Departure Impression Primary Impression: Alcoholism Disposition: 01 HOME, SELF-CARE Condition: Stable Departure-Patient Inst. Decision time for Depature: 17:11 Referrals: HUMA LOZOYA MD (PCP/Family) Primary Care Physician Patient Instructions: NO INSTRUCTIONS GIVEN Add. Discharge Instructions: All discharge instructions reviewed with patient and/or family. Voiced understanding. LI LOPEZ APRN Feb 22, 2020 17:11
== END 2020-02-22 17:12 | disposition home or self-care (01) ==
LOC: EDUNIT# 16:57 → ER 16:58
DX: F10.20 Alcohol dependence, uncomplicated (principal); F41.9 Anxiety disorder, unspecified; F31.9 Bipolar disorder, unspecified; G89.29 Other chronic pain; M54.9 Dorsalgia, unspecified; F17.210 Nicotine dependence, cigarettes, uncomplicated; Z80.8 Family history of malignant neoplasm of other organs or systems; Z79.82 Long term (current) use of aspirin; Z79.891 Long term (current) use of opiate analgesic
CPT/HCPCS: 99283

== ENCOUNTER 2020-04-09 15:43 | Emergency (ER) | payer MEDICARE, MEDICAID ==
[~2020-04-09] VITALS: Ht 154 cm; Wt 90.0 kg
[2020-04-09 15:45] VITALS: BP 136/105
--- NOTE | 2020-04-09 15:45 | ED General ---
General Stated Complaint: GENERAL COMPLAINTS Source of Information: Patient Exam Limitations: No Limitations History of Present Illness Date Seen by Provider: Apr 09, 2020 Time Seen by Provider: 15:44 Initial Comments To ER by EMS with reports that she wanted to be transported to ER with her sixpack of natural light beer. She has no specific complaint. Timing/Duration: 1-2 Days Severity: Moderate Associated Systoms: Denies Symptoms Allergies and Home Medications Patient Home Medication List Home Medication List Reviewed: Yes Review of Systems Review of Systems Constitutional: see HPI EENTM: see HPI Respiratory: no symptoms reported Cardiovascular: no symptoms reported Genitourinary: no symptoms reported Musculoskeletal: no symptoms reported Skin: no symptoms reported Psychiatric/Neurological: No Symptoms Reported Hematologic/Lymphatic: No Symptoms Reported Physical Exam Vital Signs Capillary Refill : Height, Weight, BMI Height: '" Weight: lbs. oz. kg; BMI Method: General Appearance: No Apparent Distress, WD/WN Eyes: Bilateral Eye Normal Inspection, Bilateral Eye PERRL, Bilateral Eye EOMI HEENT: PERRL/EOMI, TMs Normal Neck: Full Range of Motion, Normal Inspection Respiratory: No Accessory Muscle Use, No Respiratory Distress Gastrointestinal: Normal Bowel Sounds, Non Tender, Soft Extremity: Normal Capillary Refill, Normal Inspection Neurologic/Psychiatric: Alert, Oriented x3 Skin: Normal Color, Warm/Dry Progress/Results/Core Measures Suspected Sepsis SIRS Temperature: Pulse: Respiratory Rate: Blood Pressure / Mean: Results/Orders Vital Signs/I&O Capillary Refill : Departure Impression Primary Impression: Alcoholism Disposition: 01 HOME, SELF-CARE Condition: Stable Departure-Patient Inst. Decision time for Depature: 15:45 Patient Instructions: Alcohol Abuse and Alcoholism (DC) LI LOPEZ APRN Apr 09, 2020 15:45
== END 2020-04-09 15:54 | disposition home or self-care (01) ==
LOC: EDUNIT# 15:43 → ER 15:44
DX: F10.20 Alcohol dependence, uncomplicated (principal)
CPT/HCPCS: 99281

== ENCOUNTER 2020-04-10 10:38 | Emergency (ER) | payer MEDICARE, MEDICAID ==
[~2020-04-10] VITALS: Ht 157 cm; Wt 47.0 kg
[2020-04-10 10:40] VITALS: BP 129/81
--- NOTE | 2020-04-10 11:19 | ED Lower Extremity ---
General Chief Complaint: Lower Extremity Stated Complaint: AMS Nursing Triage Note: ARRIVED VIA AMB TO FT 1 FROM AMBULANCE. COMPLAINS OF RIGHT ANKLE PAIN. PT HAS BEEN DRINKING ETOH. DENIES INJURY. Nursing Sepsis Screen: No Definite Risk Source: patient Exam Limitations: no limitations History of Present Illness Date Seen by Provider: Apr 10, 2020 Time Seen by Provider: 11:17 Initial Comments To ER by EMS with reports of right ankle pain. Upon arrival states that she has no complaints and wants to go home. Onset: just prior to arrival Severity: moderate Pain/Injury Location: right ankle Method of Injury: unknown Modifying Factors: Worse With Movement Allergies and Home Medications Allergies Coded Allergies: No Known Drug Allergies (Unverified , 07/20/12) Home Medications Aspirin 81 Mg Tablet.dr, 81 MG PO DAILY, (Reported) Buspirone HCl 10 Mg Tablet, 10 MG PO BID, (Reported) Cefpodoxime Proxetil 200 Mg Tablet, 200 MG PO BID Prescribed by: FINESSE DESAI on 05/04/15 1211 Diclofenac Sodium 75 Mg Tablet.dr, 75 MG PO BID, (Reported) Furosemide 40 Mg Tablet, 40 MG PO DAILY, (Reported) Gabapentin 300 Mg Capsule, 300 MG PO TID, (Reported) Hydrocodone/Acetaminophen 1 Each Tablet, 1 EACH PO Q4H PRN for PAIN Prescribed by: LI LOPEZ on 03/03/16 1620 Levomilnacipran Hydrochloride 80 Mg Cap.sa.24h, 80 MG PO DAILY, (Reported) Loratadine 10 Mg Tablet, 10 MG PO DAILY, (Reported) Lorazepam 0.5 Mg Tablet, 0.5 MG PO DAILY PRN for ANXIETY, (Reported) Multivitamin 1 Each Tablet, 1 TAB PO DAILY, (Reported) Potassium Chloride 20 Meq Tab.er.prt, 20 MEQ PO DAILY, (Reported) Quetiapine Fumarate 100 Mg Tablet, 100 MG PO HS, (Reported) Tizanidine HCl 4 Mg Tablet, 4 MG PO TID PRN for MUSCLE SPASMS, (Reported) Patient Home Medication List Home Medication List Reviewed: Yes Review of Systems Constitutional: see HPI EENTM: see HPI Respiratory: no symptoms reported Cardiovascular: no symptoms reported Genitourinary: no symptoms reported Musculoskeletal: no symptoms reported Skin: no symptoms reported Psychiatric/Neurological: No Symptoms Reported Past Ykfdpra-Aadses-Zafipw Hx Patient Social History Alcohol Beverage of Choice: Beer, Vodka Drug of Choice: CANNIBUS Type Used: Cigarettes 2nd Hand Smoke Exposure: Yes Recent Infectious Disease Expo: No Recent Hopitalizations: No Immunizations Up To Date Tetanus Booster (TDap): Unknown PED Vaccines UTD: No Seasonal Allergies Seasonal Allergies: No Past Medical History Surgeries: Yes (CYST ON OVARY) Respiratory: Yes Sleep Apnea, COPD Currently Using CPAP: No Currently Using BIPAP: No Cardiac: No Neurological: Yes Reproductive Disorders: No Female Reproductive Disorders: Denies Sexually Transmitted Disease: No HIV/AIDS: No Genitourinary: No Gastrointestinal: No Musculoskeletal: Yes (ANKLE FRACTURE) Arthritis, Chronic Back Pain Endocrine: No HEENT: No Cancer: No Psychosocial: Yes (ALCOHOLISM, THC USE) Sleep Difficulties, Anxiety, Suicide Attempts, Bipolar, Depression Integumentary: No Blood Disorders: No Family Medical History Alcoholism 19 FATHER G8 BROTHER G8 BROTHER G8 BROTHER G8 SISTER G8 SISTER FH: brain cancer G8 SISTER Neoplasm 19 MOTHER No Pertinent Family Hx Physical Exam Vital Signs Vital Signs - First Documented 04/10/20 10:40 Temp 36.7 Pulse 77 Resp 16 B/P (MAP) 129/81 (97) Pulse Ox 98 O2 Delivery Room Air Capillary Refill : Less Than 3 Seconds Height, Weight, BMI Height: 5'3.00" Weight: 115lbs. 8.0oz. 52.147211md; 19.00 BMI Method:Estimated General Appearance: WD/WN, no apparent distress HEENT: PERRL/EOMI, normal ENT inspection Neck: non-tender, full range of motion Respiratory: normal breath sounds, no respiratory distress, no accessory muscle use Gastrointestinal: normal bowel sounds, non tender Hips: bilateral hip non-tender, bilateral hip normal inspection, bilateral hip normal range of motion Legs: bilateral leg non-tender, bilateral leg normal inspection, bilateral leg normal range of motion Knees: bilateral knee non-tender, bilateral knee normal inspection, bilateral knee normal range of motion Ankles: bilateral ankle non-tender, bilateral ankle normal inspection, bilateral ankle normal range of motion Feet: bilateral foot non-tender, bilateral foot normal inspection, bilateral foot normal range of motion Neurologic/Psychiatric: alert, normal mood/affect, oriented x 3 Skin: normal color, warm/dry Progress/Results/Core Measures Results/Orders Vital Signs/I&O 04/10/20 10:40 Temp 36.7 Pulse 77 Resp 16 B/P (MAP) 129/81 (97) Pulse Ox 98 O2 Delivery Room Air Blood Pressure Mean: 97 Departure Impression Primary Impression: Alcoholism Disposition: 01 HOME, SELF-CARE Condition: Stable Departure-Patient Inst. Decision time for Depature: 11:19 Referrals: HUMA LOZOYA MD (PCP/Family) Primary Care Physician Patient Instructions: NO INSTRUCTIONS GIVEN LI LOPEZ APRN Apr 10, 2020 11:19
== END 2020-04-10 11:23 | disposition home or self-care (01) ==
LOC: EDUNIT# 10:38 → ER 10:39
DX: F10.20 Alcohol dependence, uncomplicated (principal); F41.9 Anxiety disorder, unspecified; F31.9 Bipolar disorder, unspecified; G89.29 Other chronic pain; M54.9 Dorsalgia, unspecified; Z80.8 Family history of malignant neoplasm of other organs or systems; Z77.22 Contact with and (suspected) exposure to environmental tobacco smoke (acute) (chronic); Z79.82 Long term (current) use of aspirin; Z79.891 Long term (current) use of opiate analgesic
CPT/HCPCS: 99282

== ENCOUNTER 2020-05-11 12:42 | Emergency (ER) | payer MEDICARE, MEDICAID ==
[~2020-05-11] VITALS: Ht 152.4 cm; Wt 50.0 kg
[2020-05-11 12:42] VITALS: BP 119/63
--- NOTE | 2020-05-11 12:44 | ED General ---
General Stated Complaint: ETOH Source of Information: Patient Exam Limitations: No Limitations History of Present Illness Date Seen by Provider: May 11, 2020 Time Seen by Provider: 12:44 Initial Comments To ER by EMS with reports of trouble breathing for "a long time". She is wheezing and has been smoking more than usual. She is in a well-known alcoholic. Alert and oriented no distress oxygen saturation 100%. She wants to urinate and then go home she says Timing/Duration: Other Severity: Moderate Associated Systoms: Denies Symptoms Allergies and Home Medications Allergies Coded Allergies: No Known Drug Allergies (Unverified , 07/20/12) Home Medications Aspirin 81 Mg Tablet.dr, 81 MG PO DAILY, (Reported) Buspirone HCl 10 Mg Tablet, 10 MG PO BID, (Reported) Cefpodoxime Proxetil 200 Mg Tablet, 200 MG PO BID Prescribed by: FINESSE DESAI on 05/04/15 1211 Diclofenac Sodium 75 Mg Tablet.dr, 75 MG PO BID, (Reported) Furosemide 40 Mg Tablet, 40 MG PO DAILY, (Reported) Gabapentin 300 Mg Capsule, 300 MG PO TID, (Reported) Hydrocodone/Acetaminophen 1 Each Tablet, 1 EACH PO Q4H PRN for PAIN Prescribed by: LI LOPEZ on 03/03/16 1620 Levomilnacipran Hydrochloride 80 Mg Cap.sa.24h, 80 MG PO DAILY, (Reported) Loratadine 10 Mg Tablet, 10 MG PO DAILY, (Reported) Lorazepam 0.5 Mg Tablet, 0.5 MG PO DAILY PRN for ANXIETY, (Reported) Multivitamin 1 Each Tablet, 1 TAB PO DAILY, (Reported) Potassium Chloride 20 Meq Tab.er.prt, 20 MEQ PO DAILY, (Reported) Quetiapine Fumarate 100 Mg Tablet, 100 MG PO HS, (Reported) Tizanidine HCl 4 Mg Tablet, 4 MG PO TID PRN for MUSCLE SPASMS, (Reported) Patient Home Medication List Home Medication List Reviewed: Yes Review of Systems Review of Systems Constitutional: see HPI EENTM: see HPI Respiratory: see HPI Cardiovascular: no symptoms reported Genitourinary: no symptoms reported Musculoskeletal: no symptoms reported Skin: no symptoms reported Psychiatric/Neurological: No Symptoms Reported Past Bqpmydg-Qokggf-Kmovfl Hx Patient Social History Alcohol Beverage of Choice: Beer, Vodka Drug of Choice: CANNIBUS Type Used: Cigarettes 2nd Hand Smoke Exposure: Yes Recent Hopitalizations: No Immunizations Up To Date Tetanus Booster (TDap): Unknown PED Vaccines UTD: No Seasonal Allergies Seasonal Allergies: No Past Medical History Surgeries: Yes (CYST ON OVARY) Respiratory: Yes Sleep Apnea, COPD Currently Using CPAP: No Currently Using BIPAP: No Cardiac: No Neurological: Yes Reproductive Disorders: No Female Reproductive Disorders: Denies Sexually Transmitted Disease: No HIV/AIDS: No Genitourinary: No Gastrointestinal: No Musculoskeletal: Yes (ANKLE FRACTURE) Arthritis, Chronic Back Pain Endocrine: No HEENT: No Cancer: No Psychosocial: Yes (ALCOHOLISM, THC USE) Sleep Difficulties, Anxiety, Suicide Attempts, Bipolar, Depression Integumentary: No Blood Disorders: No Family Medical History Alcoholism 19 FATHER G8 BROTHER G8 BROTHER G8 BROTHER G8 SISTER G8 SISTER FH: brain cancer G8 SISTER Neoplasm 19 MOTHER No Pertinent Family Hx Physical Exam Vital Signs Capillary Refill : Height, Weight, BMI Height: 5'3.00" Weight: 115lbs. 8.0oz. 52.059023pr; 19.00 BMI Method:Estimated General Appearance: No Apparent Distress, WD/WN, Chronically ill Eyes: Bilateral Eye Normal Inspection Neck: Full Range of Motion, Normal Inspection Respiratory: No Accessory Muscle Use, No Respiratory Distress, Decreased Breath Sounds, Wheezing Gastrointestinal: Non Tender, Soft Extremity: Normal Capillary Refill, Normal Inspection Neurologic/Psychiatric: Alert, Oriented x3 Skin: Normal Color, Warm/Dry Progress/Results/Core Measures Suspected Sepsis SIRS Temperature: Pulse: Respiratory Rate: Blood Pressure / Mean: Results/Orders Vital Signs/I&O Capillary Refill : Departure Impression Primary Impression: Alcoholism Additional Impression: COPD (chronic obstructive pulmonary disease) Disposition: 01 HOME, SELF-CARE Condition: Stable Departure-Patient Inst. Decision time for Depature: 12:44 Referrals: HUMA LOZOYA MD (PCP/Family) Primary Care Physician Patient Instructions: Alcohol Abuse and Alcoholism (DC) LI LOPEZ JEWEL INSPECTOR May 11, 2020 12:44
[2020-05-11] MEDS ORDERED: RT-ALBUTEROL INHALER HFA (VENTOLIN HFA) 18 GM IH SCH (14:00)
== END 2020-05-11 12:55 | disposition home or self-care (01) ==
LOC: EDUNIT# 12:42 → ER 12:43
DX: F10.20 Alcohol dependence, uncomplicated (principal); J44.9 Chronic obstructive pulmonary disease, unspecified; F41.9 Anxiety disorder, unspecified; F31.9 Bipolar disorder, unspecified; G47.30 Sleep apnea, unspecified; Z77.22 Contact with and (suspected) exposure to environmental tobacco smoke (acute) (chronic); Z79.82 Long term (current) use of aspirin; Z79.84 Long term (current) use of oral hypoglycemic drugs; Z79.899 Other long term (current) drug therapy; Y90.9 Presence of alcohol in blood, level not specified
CPT/HCPCS: 99283

== ENCOUNTER 2020-05-16 16:28 | Emergency (ER) | payer MEDICARE, MEDICAID ==
[~2020-05-16] VITALS: Ht 167.7 cm; Wt 65.9 kg
--- NOTE | 2020-05-16 16:31 | ED General ---
General Stated Complaint: NOT FEELING WELL Source of Information: Patient, EMS Exam Limitations: No Limitations History of Present Illness Date Seen by Provider: May 16, 2020 Time Seen by Provider: 16:30 Initial Comments To ER by EMS with reports that she does not feel good. Upon arrival she states she wants to go home. She states "doc, I need some medicine". When asked what kind of medication she needs she states "methamphetamine". Advised her I cannot prescribe that. Timing/Duration: 1-2 Days Severity: Moderate Associated Systoms: Denies Symptoms Allergies and Home Medications Allergies Coded Allergies: No Known Drug Allergies (Unverified , 07/20/12) Home Medications Aspirin 81 Mg Tablet.dr, 81 MG PO DAILY, (Reported) Buspirone HCl 10 Mg Tablet, 10 MG PO BID, (Reported) Cefpodoxime Proxetil 200 Mg Tablet, 200 MG PO BID Prescribed by: FINESSE DESAI on 05/04/15 1211 Diclofenac Sodium 75 Mg Tablet.dr, 75 MG PO BID, (Reported) Furosemide 40 Mg Tablet, 40 MG PO DAILY, (Reported) Gabapentin 300 Mg Capsule, 300 MG PO TID, (Reported) Hydrocodone/Acetaminophen 1 Each Tablet, 1 EACH PO Q4H PRN for PAIN Prescribed by: LI LOPEZ on 03/03/16 1620 Levomilnacipran Hydrochloride 80 Mg Cap.sa.24h, 80 MG PO DAILY, (Reported) Loratadine 10 Mg Tablet, 10 MG PO DAILY, (Reported) Lorazepam 0.5 Mg Tablet, 0.5 MG PO DAILY PRN for ANXIETY, (Reported) Multivitamin 1 Each Tablet, 1 TAB PO DAILY, (Reported) Potassium Chloride 20 Meq Tab.er.prt, 20 MEQ PO DAILY, (Reported) Quetiapine Fumarate 100 Mg Tablet, 100 MG PO HS, (Reported) Tizanidine HCl 4 Mg Tablet, 4 MG PO TID PRN for MUSCLE SPASMS, (Reported) Patient Home Medication List Home Medication List Reviewed: Yes Review of Systems Review of Systems Constitutional: see HPI EENTM: see HPI Respiratory: no symptoms reported Cardiovascular: no symptoms reported Genitourinary: no symptoms reported Musculoskeletal: no symptoms reported Skin: no symptoms reported Psychiatric/Neurological: No Symptoms Reported Past Txilawu-Slbsnd-Xebain Hx Patient Social History Alcohol Beverage of Choice: Beer, Vodka Drug of Choice: CANNIBUS Type Used: Cigarettes 2nd Hand Smoke Exposure: Yes Recent Hopitalizations: No Immunizations Up To Date Tetanus Booster (TDap): Unknown PED Vaccines UTD: No Seasonal Allergies Seasonal Allergies: No Past Medical History Surgeries: Yes (CYST ON OVARY) Respiratory: Yes Sleep Apnea, COPD Currently Using CPAP: No Currently Using BIPAP: No Cardiac: No Neurological: Yes Reproductive Disorders: No Female Reproductive Disorders: Denies Sexually Transmitted Disease: No HIV/AIDS: No Genitourinary: No Gastrointestinal: No Musculoskeletal: Yes (ANKLE FRACTURE) Arthritis, Chronic Back Pain Endocrine: No HEENT: No Cancer: No Psychosocial: Yes (ALCOHOLISM, THC USE) Sleep Difficulties, Anxiety, Suicide Attempts, Bipolar, Depression Integumentary: No Blood Disorders: No Family Medical History Alcoholism 19 FATHER G8 BROTHER G8 BROTHER G8 BROTHER G8 SISTER G8 SISTER FH: brain cancer G8 SISTER Neoplasm 19 MOTHER No Pertinent Family Hx Physical Exam Vital Signs Vital Signs - First Documented 05/16/20 16:35 Temp 35.5 Pulse 81 Resp 18 B/P (MAP) 127/95 (106) Pulse Ox 98 O2 Delivery Room Air Capillary Refill : Height, Weight, BMI Height: 5'3.00" Weight: 115lbs. 8.0oz. 52.746003xk; 21.00 BMI Method:Estimated General Appearance: No Apparent Distress, WD/WN, Other (disheveled.) Eyes: Bilateral Eye Normal Inspection, Bilateral Eye PERRL, Bilateral Eye EOMI Neck: Full Range of Motion, Normal Inspection Respiratory: No Accessory Muscle Use, No Respiratory Distress Gastrointestinal: Normal Bowel Sounds, Non Tender, Soft Extremity: Normal Capillary Refill Neurologic/Psychiatric: Alert, Oriented x3 Skin: Normal Color, Warm/Dry Progress/Results/Core Measures Suspected Sepsis SIRS Temperature: Pulse: Respiratory Rate: Blood Pressure / Mean: Results/Orders Vital Signs/I&O 05/16/20 05/16/20 16:35 16:39 Temp 35.5 35.5 Pulse 81 81 Resp 18 18 B/P (MAP) 127/95 (106) 127/95 (106) Pulse Ox 98 98 O2 Delivery Room Air Capillary Refill : Departure Impression Primary Impression: Alcoholism Disposition: 01 HOME, SELF-CARE Condition: Stable Departure-Patient Inst. Decision time for Depature: 16:30 Referrals: HUMA LOZOYA MD (PCP/Family) Primary Care Physician Patient Instructions: NO INSTRUCTIONS GIVEN LI LOPEZ APRN May 16, 2020 16:30
[2020-05-16 16:39] VITALS: BP 127/95
== END 2020-05-16 16:35 | disposition home or self-care (01) ==
LOC: EDUNIT# 16:28 → ER 16:29
DX: F10.20 Alcohol dependence, uncomplicated (principal); Z79.82 Long term (current) use of aspirin; J44.9 Chronic obstructive pulmonary disease, unspecified; G47.30 Sleep apnea, unspecified; F41.9 Anxiety disorder, unspecified; F31.9 Bipolar disorder, unspecified; Z91.5 Personal history of self-harm; Z77.22 Contact with and (suspected) exposure to environmental tobacco smoke (acute) (chronic); Z79.899 Other long term (current) drug therapy; Y90.9 Presence of alcohol in blood, level not specified
CPT/HCPCS: 99284

== ENCOUNTER 2020-05-18 09:29 | Emergency (ER) | payer MEDICARE, MEDICAID ==
[~2020-05-18] VITALS: Ht 64 cm; Wt 49.0 kg
--- NOTE | 2020-05-18 11:12 | ED General ---
General Chief Complaint: Psych/Social Disorder Stated Complaint: NOT FEELING WELL Nursing Triage Note: wants doctor to make sure she is still alive Nursing Sepsis Screen: No Definite Risk Source of Information: Patient Exam Limitations: No Limitations History of Present Illness Date Seen by Provider: May 18, 2020 Time Seen by Provider: 11:00 Initial Comments Patient wants someone to make sure she is still alive. Timing/Duration: 1-2 Days Severity: Moderate Associated Systoms: Denies Symptoms Allergies and Home Medications Allergies Coded Allergies: No Known Drug Allergies (Unverified , 07/20/12) Home Medications Aspirin 81 Mg Tablet.dr, 81 MG PO DAILY, (Reported) Buspirone HCl 10 Mg Tablet, 10 MG PO BID, (Reported) Cefpodoxime Proxetil 200 Mg Tablet, 200 MG PO BID Prescribed by: FINESSE DESAI on 05/04/15 1211 Diclofenac Sodium 75 Mg Tablet.dr, 75 MG PO BID, (Reported) Furosemide 40 Mg Tablet, 40 MG PO DAILY, (Reported) Gabapentin 300 Mg Capsule, 300 MG PO TID, (Reported) Hydrocodone/Acetaminophen 1 Each Tablet, 1 EACH PO Q4H PRN for PAIN Prescribed by: LI LOPEZ on 03/03/16 1620 Levomilnacipran Hydrochloride 80 Mg Cap.sa.24h, 80 MG PO DAILY, (Reported) Loratadine 10 Mg Tablet, 10 MG PO DAILY, (Reported) Lorazepam 0.5 Mg Tablet, 0.5 MG PO DAILY PRN for ANXIETY, (Reported) Multivitamin 1 Each Tablet, 1 TAB PO DAILY, (Reported) Potassium Chloride 20 Meq Tab.er.prt, 20 MEQ PO DAILY, (Reported) Quetiapine Fumarate 100 Mg Tablet, 100 MG PO HS, (Reported) Tizanidine HCl 4 Mg Tablet, 4 MG PO TID PRN for MUSCLE SPASMS, (Reported) Patient Home Medication List Home Medication List Reviewed: Yes Review of Systems Review of Systems Constitutional: see HPI EENTM: see HPI Respiratory: no symptoms reported Cardiovascular: no symptoms reported Genitourinary: no symptoms reported Musculoskeletal: no symptoms reported Skin: no symptoms reported Psychiatric/Neurological: No Symptoms Reported Hematologic/Lymphatic: No Symptoms Reported Past Fmcmrhz-Zzecji-Fcckgb Hx Patient Social History Alcohol Beverage of Choice: Beer, Vodka Drug of Choice: CANNIBUS Type Used: Cigarettes 2nd Hand Smoke Exposure: Yes Recent Infectious Disease Expo: No Recent Hopitalizations: No Immunizations Up To Date Tetanus Booster (TDap): Unknown PED Vaccines UTD: No Seasonal Allergies Seasonal Allergies: No Past Medical History Surgeries: Yes (CYST ON OVARY) Respiratory: Yes Sleep Apnea, COPD Currently Using CPAP: No Currently Using BIPAP: No Cardiac: No Neurological: Yes Reproductive Disorders: No Female Reproductive Disorders: Denies Sexually Transmitted Disease: No HIV/AIDS: No Genitourinary: No Gastrointestinal: No Musculoskeletal: Yes (ANKLE FRACTURE) Arthritis, Chronic Back Pain Endocrine: No HEENT: No Cancer: No Psychosocial: Yes (ALCOHOLISM, THC USE) Sleep Difficulties, Anxiety, Suicide Attempts, Bipolar, Depression Integumentary: No Blood Disorders: No Family Medical History Alcoholism 19 FATHER G8 BROTHER G8 BROTHER G8 BROTHER G8 SISTER G8 SISTER FH: brain cancer G8 SISTER Neoplasm 19 MOTHER No Pertinent Family Hx Physical Exam Vital Signs Vital Signs - First Documented 05/18/20 10:25 Temp 36.1 Pulse 84 Resp 16 B/P (MAP) 100/68 (79) Pulse Ox 96 O2 Delivery Room Air Capillary Refill : Less Than 3 Seconds Height, Weight, BMI Height: 5'3.00" Weight: 115lbs. 8.0oz. [id number]; 119.00 BMI Method:Estimated General Appearance: No Apparent Distress, WD/WN, Chronically ill, Other (Alert and oriented, she is in fact alive) Eyes: Bilateral Eye Normal Inspection, Bilateral Eye PERRL Neck: Full Range of Motion, Normal Inspection Respiratory: No Accessory Muscle Use, No Respiratory Distress Cardiovascular: Regular Rate, Rhythm, Normal Peripheral Pulses Gastrointestinal: Normal Bowel Sounds, Non Tender, Soft Extremity: Normal Capillary Refill, Normal Inspection Neurologic/Psychiatric: Alert, Oriented x3 Skin: Normal Color, Warm/Dry Progress/Results/Core Measures Suspected Sepsis Recent Fever Within 48 Hours: No Infection Criteria Present: None New/Unexplained Altered Menta: No Sepsis Screen: No Definite Risk SIRS Temperature: Pulse: 84 Respiratory Rate: 16 Blood Pressure 100 /68 Mean: 79 Results/Orders Vital Signs/I&O 05/18/20 05/18/20 10:25 12:12 Temp 36.1 Pulse 84 85 Resp 16 16 B/P (MAP) 100/68 (79) 115/77 Pulse Ox 96 96 O2 Delivery Room Air Room Air Capillary Refill : Less Than 3 Seconds Blood Pressure Mean: 79 Departure Impression Primary Impression: General medical exam Disposition: 01 HOME, SELF-CARE Condition: Stable Departure-Patient Inst. Decision time for Depature: 11:11 Referrals: HUMA LOZOYA MD (PCP/Family) Primary Care Physician Patient Instructions: ALCOHOL AND SUBSTANCE ABUSE LI LOPEZ APRN May 18, 2020 11:12
[2020-05-18 12:12] VITALS: BP 115/77
== END 2020-05-18 12:13 | disposition home or self-care (01) ==
LOC: EDUNIT# 09:29 → ER 09:30
DX: Z00.00 Encounter for general adult medical examination without abnormal findings (principal); J44.9 Chronic obstructive pulmonary disease, unspecified; F41.9 Anxiety disorder, unspecified; F31.9 Bipolar disorder, unspecified; G89.29 Other chronic pain; M54.9 Dorsalgia, unspecified; Z77.22 Contact with and (suspected) exposure to environmental tobacco smoke (acute) (chronic); Z79.82 Long term (current) use of aspirin; Z79.891 Long term (current) use of opiate analgesic
CPT/HCPCS: 99281

== ENCOUNTER 2020-05-22 12:13 | Emergency (ER) | payer MEDICARE, MEDICAID ==
[~2020-05-22] VITALS: Ht 152 cm; Wt 47.0 kg
[2020-05-22 12:13] VITALS: BP 109/75
[2020-05-22] MEDS ORDERED: NS IV 1000 ML 1,000 ML IV SCH (12:30)
--- NOTE | 2020-05-22 12:33 | ED General ---
General Chief Complaint: Upper Extremity Stated Complaint: AMS Nursing Triage Note: ARRIVED VIA EMS FROM HOME WITH COMPLAINTS OF RIGHT ARM PAIN AFTER RECIEVING HER COVID SHOT AND JUST NOT FEELING GOOD. PT SMELLS OF ETOH. PT STATES SHE HAS HAD X5 TALL BOYS TODAY AND X11 YESTERDAY. PT STATES SHE IS HUNGRY AND WOULD LIKE SOME FOOD. Nursing Sepsis Screen: No Definite Risk History of Present Illness Date Seen by Provider: May 22, 2020 Time Seen by Provider: 12:15 Initial Comments 65 year old presents via EMS for generalized complaints of not feeling well. She reports receiving the Covid vaccine within the last few days. She is a poor historian and is obviously under the influence of EtOH as it is on her breath. She reports drinking at least 5 push lites already today. [employer] report they are working with [facility] to have her placed in [facility] care, as they fell she can no longer take care of herself and she is not safe at home. They are needing a medical provider to document this, talked to Chris Valdez, [place] [facility] and informed him that should come from her PCP, Dr. Lozoya Timing/Duration: 4-6 Hours, Getting Worse, Intermittent Allergies and Home Medications Allergies Coded Allergies: No Known Drug Allergies (Unverified , 07/20/12) Home Medications Aspirin 81 Mg Tablet., 81 MG PO DAILY, (Reported) Buspirone HCl 10 Mg Tablet, 10 MG PO BID, (Reported) Cefpodoxime Proxetil 200 Mg Tablet, 200 MG PO BID Prescribed by: FINESSE DESAI on 05/04/15 1211 Diclofenac Sodium 75 Mg Tablet.dr, 75 MG PO BID, (Reported) Furosemide 40 Mg Tablet, 40 MG PO DAILY, (Reported) Gabapentin 300 Mg Capsule, 300 MG PO TID, (Reported) Hydrocodone/Acetaminophen 1 Each Tablet, 1 EACH PO Q4H PRN for PAIN Prescribed by: LI LOPEZ on 03/03/16 1620 Levomilnacipran Hydrochloride 80 Mg Cap.sa.24h, 80 MG PO DAILY, (Reported) Loratadine 10 Mg Tablet, 10 MG PO DAILY, (Reported) Lorazepam 0.5 Mg Tablet, 0.5 MG PO DAILY PRN for ANXIETY, (Reported) Multivitamin 1 Each Tablet, 1 TAB PO DAILY, (Reported) Potassium Chloride 20 Meq Tab.er.prt, 20 MEQ PO DAILY, (Reported) Quetiapine Fumarate 100 Mg Tablet, 100 MG PO HS, (Reported) Tizanidine HCl 4 Mg Tablet, 4 MG PO TID PRN for MUSCLE SPASMS, (Reported) Patient Home Medication List Home Medication List Reviewed: Yes Review of Systems Review of Systems Constitutional: see HPI, malaise EENTM: see HPI, no symptoms reported Respiratory: no symptoms reported, see HPI Cardiovascular: no symptoms reported, see HPI Gastrointestinal: no symptoms reported, see HPI Musculoskeletal: see HPI, muscle pain (Right deltoid after Covid vaccine) Psychiatric/Neurological: See HPI, Emotional Problems, Other (EtOH intoxication) All Other Systems Reviewed Negative Unless Noted: Yes Past Azkxuuj-Ytqneh-Qikwxn Hx Past Med/Social Hx: Reviewed Nursing Past Med/Soc Hx Patient Social History Alcohol Beverage of Choice: Beer, Vodka Drug of Choice: CANNIBUS Type Used: Cigarettes 2nd Hand Smoke Exposure: Yes Recent Infectious Disease Expo: No Recent Hopitalizations: No Immunizations Up To Date Tetanus Booster (TDap): Unknown PED Vaccines UTD: No Seasonal Allergies Seasonal Allergies: No Past Medical History Surgeries: Yes (CYST ON OVARY) Respiratory: Yes Sleep Apnea, COPD Currently Using CPAP: No Currently Using BIPAP: No Cardiac: No Neurological: Yes Reproductive Disorders: No Female Reproductive Disorders: Denies Sexually Transmitted Disease: No HIV/AIDS: No Genitourinary: No Gastrointestinal: No Musculoskeletal: Yes (ANKLE FRACTURE) Arthritis, Chronic Back Pain Endocrine: No HEENT: No Cancer: No Psychosocial: Yes (ALCOHOLISM, THC USE) Sleep Difficulties, Anxiety, Suicide Attempts, Bipolar, Depression Integumentary: No Blood Disorders: No Family Medical History Alcoholism 19 FATHER G8 BROTHER G8 BROTHER G8 BROTHER G8 SISTER G8 SISTER FH: brain cancer G8 SISTER Neoplasm 19 MOTHER No Pertinent Family Hx Physical Exam Vital Signs Vital Signs - First Documented 05/22/20 12:13 Temp 37.0 Pulse 87 Resp 16 B/P (MAP) 109/75 (86) Pulse Ox 97 O2 Delivery Room Air Capillary Refill : Less Than 3 Seconds Height, Weight, BMI Height: 5'3.00" Weight: 115lbs. 8.0oz. [id number]; 20.00 BMI Method:Estimated General Appearance: No Apparent Distress, WD/WN Eyes: Bilateral Eye Normal Inspection, Bilateral Eye PERRL, Bilateral Eye EOMI HEENT: PERRL/EOMI, TMs Normal, Normal ENT Inspection, Pharynx Normal Neck: Full Range of Motion, Normal Inspection, Non Tender, Supple Respiratory: Chest Non Tender, Lungs Clear Cardiovascular: Regular Rate, Rhythm, Normal Peripheral Pulses Gastrointestinal: Normal Bowel Sounds, Non Tender, Soft Back: Normal Inspection, No CVA Tenderness, No Vertebral Tenderness Extremity: Normal Capillary Refill, Normal Inspection, Normal Range of Motion, No Calf Tenderness, Pedal Edema (1+), Other (Trace tenderness palpation right deltoid, no erythema, warmth or swelling.) Neurologic/Psychiatric: Alert, Oriented x3, No Motor/Sensory Deficits, Normal Mood/Affect Skin: Normal Color, Warm/Dry Progress/Results/Core Measures Suspected Sepsis Recent Fever Within 48 Hours: No Infection Criteria Present: None New/Unexplained Altered Menta: No Sepsis Screen: No Definite Risk SIRS Temperature: Pulse: 87 Respiratory Rate: 16 Blood Pressure 109 /75 Mean: 86 Results/Orders My Orders Orders - SHAHANA ROSENTHAL Iv 1000 Ml (Sodium Chloride 0.9%) (05/22/20 12:30) Vital Signs/I&O 05/22/20 12:13 Temp 37.0 Pulse 87 Resp 16 B/P (MAP) 109/75 (86) Pulse Ox 97 O2 Delivery Room Air Capillary Refill : Less Than 3 Seconds Blood Pressure Mean: 86 Progress Note : Time: 12:15 Progress Note Patient seen and evaluated, will obtain labs and chest x-ray, normal saline 1 L per IV. 1230 patient would like to leave [place], she will call for a taxi. Attempted to convince patient to stay for further treatment but she refused. Notified [place] police and they will follow up with her primary care provider on getting declaration to have her placed in LTC. They are filing charges against her because of excessive 911 calls and misuse of emergency services. Departure Impression Primary Impression: General medical exam Additional Impressions: ETOH abuse EtOH dependence Qualified Codes: F10.29 - Alcohol dependence with unspecified alcohol- induced disorder Disposition: 07 AGAINST MEDICAL ADVICE Condition: Stable Departure-Patient Inst. Decision time for Depature: 12:30 Referrals: HUMA LOZOYA MD (PCP/Family) Primary Care Physician Copy Copies To 1: HUMA LOZOYA MD, AMY ARNP May 22, 2020 12:33
== END 2020-05-22 12:29 | disposition left against medical advice (07) ==
LOC: ER 12:14
DX: F10.20 Alcohol dependence, uncomplicated (principal); G89.29 Other chronic pain; M54.9 Dorsalgia, unspecified; F31.9 Bipolar disorder, unspecified; F41.9 Anxiety disorder, unspecified; Z77.22 Contact with and (suspected) exposure to environmental tobacco smoke (acute) (chronic); Z80.8 Family history of malignant neoplasm of other organs or systems; Z79.82 Long term (current) use of aspirin; Z79.891 Long term (current) use of opiate analgesic
CPT/HCPCS: 99283

== ENCOUNTER 2020-06-15 16:31 | Emergency (ER) | payer MEDICARE, MEDICAID ==
[~2020-06-15] VITALS: Ht 154 cm; Wt 70.3 kg
--- NOTE | 2020-06-15 16:43 | ED General ---
General Chief Complaint: General Problems/Pain Stated Complaint: AMS Source of Information: Patient Exam Limitations: No Limitations History of Present Illness Date Seen by Provider: June 15, 2020 Time Seen by Provider: 16:34 Initial Comments This is a 65-year-old female who appears acutely intoxicated that presented to the ER via [facility] for complaints of not feeling well. In route EMS reports she was incontinent of urine. Upon arrival she is adamant that she wants to leave. Inquired as to why she called EMS and states that it just because she did not feel good but she is feeling fine now. States that she "spilled her beer" on her lap. States that she drank one tall beer. Allergies and Home Medications Allergies Coded Allergies: No Known Drug Allergies (Unverified , 07/20/12) Home Medications Aspirin 81 Mg Tablet.dr, 81 MG PO DAILY, (Reported) Buspirone HCl 10 Mg Tablet, 10 MG PO BID, (Reported) Cefpodoxime Proxetil 200 Mg Tablet, 200 MG PO BID Prescribed by: FINESSE DESAI on 05/04/15 1211 Diclofenac Sodium 75 Mg Tablet.dr, 75 MG PO BID, (Reported) Furosemide 40 Mg Tablet, 40 MG PO DAILY, (Reported) Gabapentin 300 Mg Capsule, 300 MG PO TID, (Reported) Hydrocodone/Acetaminophen 1 Each Tablet, 1 EACH PO Q4H PRN for PAIN Prescribed by: LI LOPEZ on 03/03/16 1620 Levomilnacipran Hydrochloride 80 Mg Cap.sa.24h, 80 MG PO DAILY, (Reported) Loratadine 10 Mg Tablet, 10 MG PO DAILY, (Reported) Lorazepam 0.5 Mg Tablet, 0.5 MG PO DAILY PRN for ANXIETY, (Reported) Multivitamin 1 Each Tablet, 1 TAB PO DAILY, (Reported) Potassium Chloride 20 Meq Tab.er.prt, 20 MEQ PO DAILY, (Reported) Quetiapine Fumarate 100 Mg Tablet, 100 MG PO HS, (Reported) Tizanidine HCl 4 Mg Tablet, 4 MG PO TID PRN for MUSCLE SPASMS, (Reported) Patient Home Medication List Home Medication List Reviewed: Yes Review of Systems Review of Systems Constitutional: other (generalized body pain ) EENTM: no symptoms reported Respiratory: no symptoms reported Cardiovascular: no symptoms reported Gastrointestinal: no symptoms reported Genitourinary: no symptoms reported Musculoskeletal: no symptoms reported Skin: no symptoms reported Psychiatric/Neurological: No Symptoms Reported Hematologic/Lymphatic: No Symptoms Reported Immunological/Allergic: no symptoms reported Past Rejxgzj-Zjdvgc-Bhmrbf Hx Patient Social History Alcohol Beverage of Choice: Beer Drug of Choice: CANNIBUS Type Used: Cigarettes 2nd Hand Smoke Exposure: Yes Recent Hopitalizations: No Immunizations Up To Date Tetanus Booster (TDap): Unknown PED Vaccines UTD: No Seasonal Allergies Seasonal Allergies: No Past Medical History Surgeries: Yes (CYST ON OVARY) Respiratory: Yes Sleep Apnea, COPD Currently Using CPAP: No Currently Using BIPAP: No Cardiac: No Neurological: Yes Reproductive Disorders: No Female Reproductive Disorders: Denies Sexually Transmitted Disease: No HIV/AIDS: No Genitourinary: No Gastrointestinal: No Musculoskeletal: Yes (ANKLE FRACTURE) Arthritis, Chronic Back Pain Endocrine: No HEENT: No Cancer: No Psychosocial: Yes (ALCOHOLISM, THC USE) Sleep Difficulties, Anxiety, Suicide Attempts, Bipolar, Depression Integumentary: No Blood Disorders: No Family Medical History Alcoholism 19 FATHER G8 BROTHER G8 BROTHER G8 BROTHER G8 SISTER G8 SISTER FH: brain cancer G8 SISTER Neoplasm 19 MOTHER No Pertinent Family Hx Physical Exam Vital Signs Vital Signs - First Documented 06/15/20 16:31 Temp 37.0 Pulse 85 Resp 20 B/P (MAP) 169/90 (116) Pulse Ox 97 O2 Delivery Room Air Capillary Refill : Height, Weight, BMI Height: 5'3.00" Weight: 115lbs. 8.0oz. 52.905997hu; 20.00 BMI Method:Estimated General Appearance: No Apparent Distress, WD/WN Eyes: Bilateral Eye Normal Inspection Neck: Full Range of Motion, Normal Inspection Respiratory: No Respiratory Distress Extremity: Normal Inspection, Normal Range of Motion Neurologic/Psychiatric: Alert, Oriented x3 Skin: Normal Color, Warm/Dry Progress/Results/Core Measures Suspected Sepsis SIRS Temperature: Pulse: Respiratory Rate: Blood Pressure / Mean: Results/Orders Vital Signs/I&O 06/15/20 16:31 Temp 37.0 Pulse 85 Resp 20 B/P (MAP) 169/90 (116) Pulse Ox 97 O2 Delivery Room Air Capillary Refill : Progress Note : Progress Note Patient examined and in no acute distress. States that she does not want medical treatment at this time. She just wants to go home and go to bed. Discussed cutting back on alcohol use, and returning for any new or concerning symptoms. Taxi service called to take her home. Departure Impression Primary Impression: EtOH dependence Disposition: HOME, SELF-CARE Condition: Stable/Unchanged Departure-Patient Inst. Decision time for Depature: 17:01 Referrals: HUMA LOZOYA MD (PCP/Family) Primary Care Physician Add. Discharge Instructions: Return for any new or concerning symptoms. All discharge instructions reviewed with patient and/or family. Voiced und erstanding. ZHOU BECKFORD [employer] June 15, 2020 16:43
[2020-06-15 17:00] VITALS: BP 169/90
== END 2020-06-15 17:05 | disposition home or self-care (01) ==
LOC: EDUNIT# 16:31 → ER 16:32
DX: F10.20 Alcohol dependence, uncomplicated (principal); J44.9 Chronic obstructive pulmonary disease, unspecified; G89.29 Other chronic pain; M54.9 Dorsalgia, unspecified; F41.9 Anxiety disorder, unspecified; F31.9 Bipolar disorder, unspecified; Z77.22 Contact with and (suspected) exposure to environmental tobacco smoke (acute) (chronic); Z79.891 Long term (current) use of opiate analgesic; Z79.899 Other long term (current) drug therapy; Z79.82 Long term (current) use of aspirin
CPT/HCPCS: 99283

== ENCOUNTER → 2021-01-06 | Outpatient (CLI) | payer MEDICARE, MEDICAID ==
[~2021-01-06] VITALS: Ht 160 cm; Wt 52.0 kg
[~2021-01-06] MED LIST changes: +ACETAMINOPHEN 500 MG TAB (TYLENOL) PO PRN; +CASIRIVIMAB/IMDEVIMAB 1,200 MG in NS (IVPB) 250 ML IV ONE; +EPINEPHrine INJECTION 1 MG/ML AMP IM PRN; +ONDANSETRON 4 MG/2 ML (SDV) Z0FRAN IV PRN; +POTA-179 PO; -POTA20TA15 PO; +TIZA-186 PO; -TIZA4TAB4 PO; +diphenhydrAMINE 50 MG/ML INJ (BENADRYL) IV PRN
[2021-01-06 12:31] VITALS: BP 139/89
[2021-01-06 13:44] VITALS: BP 137/70
[2021-01-06 14:24] VITALS: BP 135/84
== END ==
LOC: INFUSION 12:36
PROVIDERS: ATTEND Internal Medicine
DX: U07.1 COVID-19 (principal)

== ENCOUNTER 2021-02-22 20:22 | Emergency (ER) | payer MEDICARE, MEDICAID ==
[~2021-02-22 20:22] MED LIST changes: -ACETAMINOPHEN 500 MG TAB (TYLENOL) PO PRN; -CASIRIVIMAB/IMDEVIMAB 1,200 MG in NS (IVPB) 250 ML IV ONE; -EPINEPHrine INJECTION 1 MG/ML AMP IM PRN; -ONDANSETRON 4 MG/2 ML (SDV) Z0FRAN IV PRN; -diphenhydrAMINE 50 MG/ML INJ (BENADRYL) IV PRN
--- NOTE | 2021-02-22 20:37 | ED General ---
General Chief Complaint: General Problems/Pain Stated Complaint: HIGH BP;BODY SHAKES;DIARRHEA Source of Information: Patient History of Present Illness Date Seen by Provider: Feb 22, 2021 Time Seen by Provider: 20:31 Initial Comments 65 yo female presenting from [facility]. Earlier tonight she had an episode where her abdomen was hurting and she had high blood pressure. Apparently at that same time she was having body shaking. Patient states that she had a bowel movement after this and that resolved all of her symptoms. She does take chronic pain medicine and has constipation from that. She feels like she just had eaten something that did not agree with her and caused her to have abdominal pain and cramping. She now has no symptoms at all and felt like she did not need to come to the emergency department. The staff at [facility] made her come to the emergency department to be evaluated. She has no complaints currently. Her blood pressure is not elevated here. She has no abdominal pain since she had a large bowel movement at [facility]. Associated Systoms: No Chest Pain, No Cough, No Diaphoresis, No Fever/Chills, No Headaches, No Loss of Appetite, No Malaise, No Nausea/Vomiting, No Rash, No Seizure, No Shortness of Air, No Syncope, No Weakness Allergies and Home Medications Allergies Coded Allergies: No Known Drug Allergies (Unverified , 07/20/12) Patient Home Medication List Home Medication List Reviewed: Yes Aspirin (Aspirin Ec Low Dose) 81 Mg Tablet., 81 MG PO DAILY, (Reported) Entered as Reported by: CRISTAL BERNAL on 11/20/13 0951 Buspirone HCl (Buspirone HCl) 10 Mg Tablet, 10 MG PO BID, (Reported) Entered as Reported by: ISAIAS PETER on 05/02/15 1700 Cefpodoxime Proxetil (Cefpodoxime Proxetil) 200 Mg Tablet, 200 MG PO BID Prescribed by: FINESSE DESAI on 05/04/15 1211 Diclofenac Sodium (Diclofenac Sodium) 75 Mg Tablet.dr, 75 MG PO BID, (Reported) Entered as Reported by: ISAIAS PETER on 05/02/15 1604 Furosemide (Furosemide) 40 Mg Tablet, 40 MG PO DAILY, (Reported) Entered as Reported by: ISAIAS PETER on 05/02/15 1604 Gabapentin (Gabapentin) 300 Mg Capsule, 300 MG PO TID, (Reported) Entered as Reported by: ISAIAS PETER on 05/02/15 160 Hydrocodone/Acetaminophen (Hydrocodone/Acetaminophen 5 MG/325 MG TAB) 1 Each Tablet, 1 EACH PO Q4H PRN for PAIN Prescribed by: LI LOPEZ on 03/03/16 1620 Levomilnacipran Hydrochloride (Fetzima) 80 Mg Cap.sa.24h, 80 MG PO DAILY, (Reported) Entered as Reported by: ISAIAS PETER on 05/02/15 160 Loratadine (Loratadine) 10 Mg Tablet, 10 MG PO DAILY, (Reported) Entered as Reported by: ISAIAS PETER on 05/02/15 160 Lorazepam (Lorazepam) 0.5 Mg Tablet, 0.5 MG PO DAILY PRN for ANXIETY, (Reported) Entered as Reported by: ISAIAS PETER on 05/02/15 170 Multivitamin (Multi Vitamin Daily) 1 Each Tablet, 1 TAB PO DAILY, (Reported) Entered as Reported by: CRISTAL BERNAL on 11/20/13 0951 Potassium Chloride (Potassium Chloride) 20 Meq Tab.er.prt, 20 MEQ PO DAILY, (Reported) Entered as Reported by: ISAIAS PETER on 05/02/15 160 Quetiapine Fumarate (Quetiapine Fumarate) 100 Mg Tablet, 100 MG PO HS, (Reported) Entered as Reported by: ISAIAS PETER on 05/02/15 1700 Tizanidine HCl (Tizanidine HCl) 4 Mg Tablet, 4 MG PO TID PRN for MUSCLE SPASMS, (Reported) Entered as Reported by: ISAIAS PETER on 05/02/15 160 Review of Systems Review of Systems Constitutional: No chills, No fever EENTM: no symptoms reported Respiratory: no symptoms reported Cardiovascular: no symptoms reported Gastrointestinal: see HPI Genitourinary: No dysuria, No frequency Musculoskeletal: no symptoms reported Skin: no symptoms reported Psychiatric/Neurological: No Symptoms Reported Past Gxtrpuy-Uduggv-Tyirza Hx Patient Social History Tobacco Use?: No Substance use?: No Alcohol Use?: No Pt feels they are or have been: No Immunizations Up To Date Tetanus Booster (TDap): Unknown PED Vaccines UTD: No Seasonal Allergies Seasonal Allergies: No Past Medical History Surgeries: Yes (CYST ON OVARY) Respiratory: Yes Sleep Apnea, COPD Currently Using CPAP: No Currently Using BIPAP: No Cardiac: No Neurological: Yes Reproductive Disorders: No Female Reproductive Disorders: Denies Sexually Transmitted Disease: No HIV/AIDS: No Genitourinary: No Gastrointestinal: No Musculoskeletal: Yes (ANKLE FRACTURE) Arthritis, Chronic Back Pain Endocrine: No HEENT: No Cancer: No Psychosocial: Yes (ALCOHOLISM, THC USE) Sleep Difficulties, Anxiety, Suicide Attempts, Bipolar, Depression Integumentary: No Blood Disorders: No Family Medical History Alcoholism 19 FATHER G8 BROTHER G8 BROTHER G8 BROTHER G8 SISTER G8 SISTER FH: brain cancer G8 SISTER Neoplasm 19 MOTHER No Pertinent Family Hx Physical Exam Vital Signs Vital Signs - First Documented 02/22/21 20:27 Temp 36.7 Pulse 79 Resp 18 B/P (MAP) 137/68 (91) Pulse Ox 100 O2 Delivery Room Air Capillary Refill : Height, Weight, BMI Height: 5'3.00" Weight: 115lbs. 8.0oz. 52.096019as; 29.00 BMI Method:Estimated General Appearance: No Apparent Distress, WD/WN HEENT: Pharynx Normal Neck: Full Range of Motion, Normal Inspection, Non Tender, Supple Respiratory: Chest Non Tender, Lungs Clear, Normal Breath Sounds, No Accessory Muscle Use, No Respiratory Distress Cardiovascular: Regular Rate, Rhythm, Normal Peripheral Pulses Gastrointestinal: Normal Bowel Sounds, No Pulsatile Mass, Non Tender, Soft Rectal: Deferred Extremity: Normal Capillary Refill, Normal Inspection, No Pedal Edema Neurologic/Psychiatric: Alert, Oriented x3, p[facility] specialist II-XII Norm as Tested Skin: Normal Color, Warm/Dry Progress/Results/Core Measures Suspected Sepsis SIRS Temperature: Pulse: Respiratory Rate: Blood Pressure / Mean: Results/Orders Vital Signs/I&O 02/22/21 02/22/21 20:27 20:46 Temp 36.7 36.7 Pulse 79 79 Resp 18 18 B/P (MAP) 137/68 (91) 137/68 Pulse Ox 100 100 O2 Delivery Room Air Room Air Capillary Refill : Progress Note : Progress Note As patient currently has no complaints and felt her symptoms resolved after having a large bowel movement at home will defer any testing currently. Counseled patient on return precautions and advised if she has further symptoms or concerns to return or seek care in the medical clinic Departure Impression Primary Impression: Constipation due to opioid therapy Additional Impression: Abdominal cramping Disposition: HOME, SELF-CARE Condition: Stable Departure-Patient Inst. Decision time for Depature: 20:44 Referrals: HUMA LOZOYA MD (PCP/Family) Primary Care Physician Patient Instructions: Constipation, Adult ED, Abdominal Pain, Adult ED Add. Discharge Instructions: Consider taking Miralax or a laxative on a daily basis to help with constipation from pain medicine. If you have new symptoms or worsening problems then return or seek medical care with the clinic for further evaluation. All discharge instructions reviewed with patient and/or family. Voiced understa nding. STU MCINTYRE MD Feb 22, 2021 20:37
[2021-02-22 20:46] VITALS: BP 137/68
== END 2021-02-22 20:48 | disposition home or self-care (01) ==
LOC: EDUNIT# 20:22 → ER FS 20:25
DX: K59.03 Drug induced constipation (principal); G47.30 Sleep apnea, unspecified; J44.9 Chronic obstructive pulmonary disease, unspecified; F31.9 Bipolar disorder, unspecified; F41.9 Anxiety disorder, unspecified; G89.29 Other chronic pain; M54.9 Dorsalgia, unspecified; Z79.891 Long term (current) use of opiate analgesic; Z79.82 Long term (current) use of aspirin; Z79.899 Other long term (current) drug therapy
CPT/HCPCS: 99281

== ENCOUNTER 2021-03-18 16:33 | Emergency (ER) | payer MEDICARE, MEDICAID ==
--- NOTE | 2021-03-18 16:46 | ED General ---
General Stated Complaint: HIGH BP History of Present Illness Date Seen by Provider: Mar 18, 2021 Time Seen by Provider: 16:38 Initial Comments 65-year-old female is here for evaluation. Patient's not sure why she is here. EMS was called to the patient's residency which is that assisted living/longterm for low oxygen. Patient's oxygen was 96%. Patient refused transport. Patient was brought here by private vehicle and states she is not sure why she is here. That she feels fine. Patient has a chronic cough but not any complaints. Patient's caregiver with her reports that "she spaced out for a minute" that her oxygen was low for them and her heart rate was high. Upon arrival to the ER patient's oxygen is 98% on room air, her blood pressure is in normal range and her heart rate is around 100. Patient has a known history of dementia likely due to the extensive alcoholic abuse history. Allergies and Home Medications Allergies Coded Allergies: No Known Drug Allergies (Unverified , 07/20/12) Patient Home Medication List Home Medication List Reviewed: Yes Aspirin (Aspirin Ec Low Dose) 81 Mg Tablet., 81 MG PO DAILY, (Reported) Entered as Reported by: CRISTAL BERNAL on 11/20/13 0951 Buspirone HCl (Buspirone HCl) 10 Mg Tablet, 10 MG PO BID, (Reported) Entered as Reported by: ISAIAS PETER on 05/02/15 1700 Cefpodoxime Proxetil (Cefpodoxime Proxetil) 200 Mg Tablet, 200 MG PO BID Prescribed by: FINESSE DESAI on 05/04/15 1211 Diclofenac Sodium (Diclofenac Sodium) 75 Mg Tablet.dr, 75 MG PO BID, (Reported) Entered as Reported by: ISAIAS PETER on 05/02/15 1604 Furosemide (Furosemide) 40 Mg Tablet, 40 MG PO DAILY, (Reported) Entered as Reported by: ISAIAS PETER on 05/02/15 1604 Gabapentin (Gabapentin) 300 Mg Capsule, 300 MG PO TID, (Reported) Entered as Reported by: ISAIAS PETER on 05/02/15 1604 Hydrocodone/Acetaminophen (Hydrocodone/Acetaminophen 5 MG/325 MG TAB) 1 Each Tablet, 1 EACH PO Q4H PRN for PAIN Prescribed by: LI LOPEZ on 03/03/16 1620 Levomilnacipran Hydrochloride (Fetzima) 80 Mg Cap.sa.24h, 80 MG PO DAILY, (Reported) Entered as Reported by: ISAIAS PETER on 05/02/15 160 Loratadine (Loratadine) 10 Mg Tablet, 10 MG PO DAILY, (Reported) Entered as Reported by: ISAIAS PETER on 05/02/15 160 Lorazepam (Lorazepam) 0.5 Mg Tablet, 0.5 MG PO DAILY PRN for ANXIETY, (Reported) Entered as Reported by: ISAIAS PETER on 05/02/15 1700 Multivitamin (Multi Vitamin Daily) 1 Each Tablet, 1 TAB PO DAILY, (Reported) Entered as Reported by: CRISTAL BERNAL on 11/20/13 0951 Potassium Chloride (Potassium Chloride) 20 Meq Tab.er.prt, 20 MEQ PO DAILY, (Reported) Entered as Reported by: ISAIAS PETER on 05/02/15 160 Quetiapine Fumarate (Quetiapine Fumarate) 100 Mg Tablet, 100 MG PO HS, (Reported) Entered as Reported by: ISAIAS PETER on 05/02/15 1700 Tizanidine HCl (Tizanidine HCl) 4 Mg Tablet, 4 MG PO TID PRN for MUSCLE SPASMS, (Reported) Entered as Reported by: ISAIAS PETER on 05/02/15 1604 Review of Systems Review of Systems Constitutional: no symptoms reported EENTM: no symptoms reported Respiratory: cough Cardiovascular: no symptoms reported Gastrointestinal: no symptoms reported Genitourinary: no symptoms reported Musculoskeletal: no symptoms reported Skin: no symptoms reported Psychiatric/Neurological: No Symptoms Reported Past Gyratqw-Olwura-Yylhbq Hx Immunizations Up To Date Tetanus Booster (TDap): Unknown PED Vaccines UTD: No Seasonal Allergies Seasonal Allergies: No Past Medical History Surgeries: Yes (CYST ON OVARY) Respiratory: Yes Sleep Apnea, COPD Currently Using CPAP: No Currently Using BIPAP: No Cardiac: No Neurological: Yes Reproductive Disorders: No Female Reproductive Disorders: Denies Sexually Transmitted Disease: No HIV/AIDS: No Genitourinary: No Gastrointestinal: No Musculoskeletal: Yes (ANKLE FRACTURE) Arthritis, Chronic Back Pain Endocrine: No HEENT: No Cancer: No Psychosocial: Yes (ALCOHOLISM, THC USE) Sleep Difficulties, Anxiety, Suicide Attempts, Bipolar, Depression Integumentary: No Blood Disorders: No Family Medical History Alcoholism 19 FATHER G8 BROTHER G8 BROTHER G8 BROTHER G8 SISTER G8 SISTER FH: brain cancer G8 SISTER Neoplasm 19 MOTHER No Pertinent Family Hx Physical Exam Vital Signs Vital Signs - First Documented 03/18/21 16:40 Temp 36.9 Pulse 101 Resp 16 B/P (MAP) 124/92 (103) Pulse Ox 99 O2 Delivery Room Air Capillary Refill : Height, Weight, BMI Height: 5'3.00" Weight: 115lbs. 8.0oz. [id number]; 29.00 BMI Method:Estimated General Appearance: No Apparent Distress, WD/WN HEENT: PERRL/EOMI Respiratory: Lungs Clear, Normal Breath Sounds Cardiovascular: Regular Rate, Rhythm, No Edema Gastrointestinal: Non Tender, Soft Extremity: Normal Capillary Refill, Normal Inspection Neurologic/Psychiatric: Alert, No Motor/Sensory Deficits, generation engineer II-XII Norm as Tested Progress/Results/Core Measures Suspected Sepsis SIRS Temperature: Pulse: Respiratory Rate: Laboratory Tests 03/18/21 17:07: White Blood Count 12.5H Blood Pressure / Mean: Laboratory Tests 03/18/21 17:07: Creatinine 0.47L, Platelet Count 384, Total Bilirubin 0.3 Results/Orders Lab Results Laboratory Tests Test 03/18/21 17:07 03/18/21 17:09 Range/Units White Blood Count 12.5 H 4.3-11.0 10^3/uL Red Blood Count 3.71 L 3.80-5.11 10^6/uL Hemoglobin 11.6 11.5-16.0 g/dL Hematocrit 35 35-52 % Mean Corpuscular Volume 95 80-99 fL Mean Corpuscular Hemoglobin 31 25-34 pg Mean Corpuscular Hemoglobin Concent 33 32-36 g/dL Red Cell Distribution Width 12.3 10.0-14.5 % Platelet Count 384 130-400 10^3/uL Mean Platelet Volume 10.6 9.0-12.2 fL Sodium Level 136 135-145 MMOL/L Potassium Level 3.6 3.6-5.0 MMOL/L Chloride Level 96 L 98-107 MMOL/L Carbon Dioxide Level 24 21-32 MMOL/L Anion Gap 16 H 5-14 MMOL/L Blood Urea Nitrogen 9 7-18 MG/DL Creatinine 0.47 L 0.60-1.30 MG/DL Estimat Glomerular Filtration Rate 105 BUN/Creatinine Ratio 19 Glucose Level 119 H 70-105 MG/DL Calcium Level 9.7 8.5-10.1 MG/DL Corrected Calcium 9.3 8.5-10.1 MG/DL Total Bilirubin 0.3 0.1-1.0 MG/DL Aspartate Amino Transf (AST/SGOT) 11 5-34 U/L Alanine Aminotransferase (ALT/SGPT) < 5 0-55 U/L Alkaline Phosphatase 132 40-136 U/L Total Protein 7.8 6.4-8.2 GM/DL Albumin 4.5 3.2-4.5 GM/DL Serum Alcohol < 10 <10 MG/DL Urine Color YELLOW Urine Clarity SLT CLOUDY Urine pH 6.0 5-9 Urine Specific [place] >=1.030 1.016-1.022 Urine Protein NEGATIVE NEGATIVE Urine Glucose (UA) NEGATIVE NEGATIVE Urine Ketones NEGATIVE NEGATIVE Urine Nitrite NEGATIVE NEGATIVE Urine Bilirubin NEGATIVE NEGATIVE Urine Urobilinogen 0.2 < = 1.0 MG/DL Urine Leukocyte Esterase NEGATIVE NEGATIVE Urine RBC (Auto) NEGATIVE NEGATIVE Urine RBC NONE /HPF Urine WBC RARE /HPF Urine Squamous Epithelial Cells 5-10 /HPF Urine Crystals NONE /LPF Urine Bacteria TRACE /HPF Urine Casts NONE /LPF Urine Mucus SMALL H /LPF Urine Culture Indicated NO My Orders Orders - WHITTAKER,RAUL L DO Alcohol (03/18/21 16:48) Cbc No Diff (03/18/21 16:48) Comprehensive Metabolic Panel (03/18/21 16:48) Ua Culture If Indicated (03/18/21 16:48) Chest Pa/Lat (2 View) (03/18/21 16:48) Vital Signs/I&O 03/18/21 03/18/21 16:40 16:58 Temp 36.9 36.9 Pulse 101 101 Resp 16 16 B/P (MAP) 124/92 (103) 124/92 Pulse Ox 99 99 O2 Delivery Room Air Room Air Capillary Refill : Progress Note : Progress Note Patient is refusing x-ray lab work and urinalysis. Patient is able to make her own decisions. Patient will be discharged back to the care center 1705 patient's caregiver brought patient back in and coerced her into doing labs and evaluation that she did not necessarily want. 1742 patient's x-ray urine and labs show no significant findings. She does have a slight elevation of her white count but not significant indication of any infection. Recommended a follow-up with her primary care provider for further outpatient evaluation. Patient stable at discharge Diagnostic Imaging Diagonstic Imaging: Xray Plain Films/CT/US/NM/MRI: chest Comments CHEST PA/LAT (2 VIEW) INDICATION: Low oxygen level. EXAMINATION: Two-view chest from 03/18/2021. COMPARISON: 07/13/2018. FINDINGS: The heart and pulmonary vasculature are normal. Lungs and pleural spaces are clear. No infiltrates, effusions, or pneumothorax. IMPRESSION: 1. No acute process. Departure Impression Primary Impression: General medical exam Disposition: HOME, SELF-CARE Condition: Stable Departure-Patient Inst. Referrals: SELF,GORDO PINEDO (PCP) Primary Care Physician HUMA LOZOYA MD (Family) Primary Care Physician Add. Discharge Instructions: Follow-up with your primary care provider as needed for any concern RAUL WHITTAKER DO Mar 18, 2021 16:46
[2021-03-18 16:58] VITALS: BP 124/92
[2021-03-18 17:16] LABS: HEMATOCRIT 35 % (35-52); HEMOGLOBIN 11.6 g/dL (11.5-16.0); MEAN CORPUSCULAR HEMOGLOBIN 31 pg (25-34); MEAN CORPUSCULAR HGB CONC 33 g/dL (32-36); MEAN CORPUSCULAR VOLUME 95 fL (80-99); MEAN PLATELET VOLUME 10.6 fL (9.0-12.2); PLATELET COUNT 384 10^3/uL (130-400); WHITE BLOOD COUNT 12.5 10^3/uL (4.3-11.0)
[2021-03-18 17:24] LABS: BILIRUBIN,URINE NEGATIVE (NEGATIVE); CLARITY,URINE SLT CLOUDY; COLOR,URINE YELLOW; GLUCOSE, URINE (UA) NEGATIVE (NEGATIVE); KETONES,URINE NEGATIVE (NEGATIVE); LEUKOCYTE ESTERASE ,URINE NEGATIVE (NEGATIVE); NITRITE,URINE NEGATIVE (NEGATIVE); PROTEIN,URINE NEGATIVE (NEGATIVE)
[2021-03-18 17:25] LABS: BACTERIA,URINE TRACE /HPF; WBC,URINE RARE /HPF
--- NOTE | 2021-03-18 17:25 | Diagnostic Imaging Report ---
INDICATION: Low oxygen level. EXAMINATION: Two-view chest from 03/18/2021. COMPARISON: 07/13/2018. FINDINGS: The heart and pulmonary vasculature are normal. Lungs and pleural spaces are clear. No infiltrates, effusions, or pneumothorax. IMPRESSION: 1. No acute process. Dictated by: Dictated on workstation # [id number]
[2021-03-18 17:37] LABS: ALBUMIN 4.5 GM/DL (3.2-4.5); ALKALINE PHOSPHATASE 132 U/L (40-136); BILIRUBIN,TOTAL 0.3 MG/DL (0.1-1.0); BUN/CREATININE RATIO 19; CALCIUM 9.7 MG/DL (8.5-10.1); CARBON DIOXIDE 24 MMOL/L (21-32); CHLORIDE 96 MMOL/L (98-107); CREATININE SERUM 0.47 MG/DL (0.60-1.30); GFR ESTIMATED 105; GLUCOSE 119 MG/DL (70-105); POTASSIUM 3.6 MMOL/L (3.6-5.0); SODIUM 136 MMOL/L (135-145); TOTAL PROTEIN 7.8 GM/DL (6.4-8.2)
[2021-03-18 17:38] LABS: ALANINE AMINOTRANSFERASE < 5 U/L (0-55)
== END 2021-03-18 17:42 | disposition home or self-care (01) ==
LOC: EDUNIT# 16:33 → ER FS 16:34
DX: Z00.00 Encounter for general adult medical examination without abnormal findings (principal); J44.9 Chronic obstructive pulmonary disease, unspecified; G47.30 Sleep apnea, unspecified; F41.9 Anxiety disorder, unspecified; F31.9 Bipolar disorder, unspecified; G89.29 Other chronic pain; M54.9 Dorsalgia, unspecified; Z79.899 Other long term (current) drug therapy; Z79.82 Long term (current) use of aspirin; Z79.891 Long term (current) use of opiate analgesic
CPT/HCPCS: 36415; 71046; 80053; 81000; 85027; G0480; 80320

== ENCOUNTER 2021-07-11 14:43 | Emergency (ER) | payer MEDICARE, MEDICAID ==
[2021-07-11] MEDS ORDERED: LORazepam INJ 2 MG/ML (ATIVAN) VIAL IVP STA (14:57)
[2021-07-11 14:59] LABS: BASOPHILS # (AUTO) 0.1 10^3/uL (0.0-0.1); BASOPHILS % (AUTO) 1 % (0-10); EOSINOPHILS # (AUTO) 0.2 10^3/uL (0.0-0.3); EOSINOPHILS % (AUTO) 2 % (0-10); HEMATOCRIT 38 % (35-52); HEMOGLOBIN 12.8 g/dL (11.5-16.0); LYMPHOCYTES # (AUTO) 2.4 10^3/uL (1.0-4.0); LYMPHOCYTES % (AUTO) 22 % (12-44); MEAN CORPUSCULAR HEMOGLOBIN 32 pg (25-34); MEAN CORPUSCULAR HGB CONC 33 g/dL (32-36); MEAN CORPUSCULAR VOLUME 97 fL (80-99); MEAN PLATELET VOLUME 11.8 fL (9.0-12.2); MONOCYTES # (AUTO) 1.1 10^3/uL (0.0-1.0); MONOCYTES % (AUTO) 10 % (0-12); NEUTROPHILS # (AUTO) 7.2 10^3/uL (1.8-7.8); NEUTROPHILS % (AUTO) 65 % (42-75); PLATELET COUNT 165 10^3/uL (130-400); WHITE BLOOD COUNT 11.1 10^3/uL (4.3-11.0)
[2021-07-11] MEDS ORDERED: NS IV 1000 ML 1,000 ML IV SCH (15:00)
[2021-07-11 15:18] LABS: ALANINE AMINOTRANSFERASE 11 U/L (0-55); ALBUMIN 4.7 GM/DL (3.2-4.5); ALKALINE PHOSPHATASE 155 U/L (40-136); BILIRUBIN,TOTAL 0.3 MG/DL (0.1-1.0); BUN/CREATININE RATIO 17; CALCIUM 9.1 MG/DL (8.5-10.1); CARBON DIOXIDE 21 MMOL/L (21-32); CHLORIDE 101 MMOL/L (98-107); GFR ESTIMATED 98; GLUCOSE 86 MG/DL (70-105); MAGNESIUM 2.1 MG/DL (1.6-2.4); POTASSIUM 4.8 MMOL/L (3.6-5.0); SODIUM 138 MMOL/L (135-145); TOTAL PROTEIN 7.6 GM/DL (6.4-8.2)
--- NOTE | 2021-07-11 15:19 | Diagnostic Imaging Report ---
CLINICAL INDICATION: Patient with first time seizure. EXAM: Axial CT scan of the brain performed without IV contrast. Auto Exposure Controls were utilized during the CT exam to meet ALARA standards for radiation dose reduction. COMPARISON: Head CT and cervical spine CT without contrast dated 09/09/2018. FINDINGS: There is motion artifact limiting evaluation of portions of this exam. There is skull streak artifact involving the posterior fossa, brainstem and portions of the brain and the skull base. There is no evidence of acute cerebral infarct, intracranial hemorrhage or gross mass effect. Again seen are multiple focal and patchy areas of low-attenuation white matter changes seen throughout the subcortical and deep white matter involving both cerebral hemispheres, likely representing chronic small vessel ischemic disease. 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 The brain parenchymal volume appears appropriate for patient's age. There is normal an-white matter distinction. There is no significant midline shift or herniation. There is no evidence of hydrocephalus. The basal cisterns are unremarkable. The skull, extracranial soft tissue and orbits are unremarkable. There is moderate amount of fluid involving the right maxillary sinus. Temporal bones show no significant abnormality. IMPRESSION: 1: Stable CT scan of the brain with no evidence of interval acute intracranial process. 2: Chronic small vessel ischemic disease. 3: There is stable small chronic infarct involving the left basal ganglia region. Dictated by: Dictated on workstation # [id number]
--- NOTE | 2021-07-11 16:27 | ED Neurological Problem ---
General Chief Complaint: Neurological Problems Stated Complaint: TREMORS, MOUTH FOAMING Nursing Triage Note: Patient presents to the ED via EMS with c/o seizure like activity. EMS states that residential staff report that patient went unresponsive and had 12 minutes of tonic clonic seizure activity. EMS report that patient appeared post ictal upon arrival. Upon arrival to the ED patient is alert and oriented to person and place. Staff reports that patient has no known history of seizures. History of Present Illness Date Seen by Provider: Jul 11, 2021 Time Seen by Provider: 14:45 Initial Comments 66-year-old female with PMH of alcohol dependency but has not drank alcohol for 1 year since she has been in rehab/active smoker, 1 pack a day, is brought in by EMS with complaints of first-time seizure. Facility staff states that patient had a seizure which lasted for about 12 minutes, and by the time EMS reached the facility patient appeared to be postictal and soon came back to baseline thereafter. Patient had urinary incontinence during her seizure. In the ER patient is stable and able to explain what happened and have a conversation. Denies fever, recent respiratory illness, abdominal pain, diarrhea, nausea and vomiting, dizziness, headache, neck pain or neck stiffness. Patient has not had anything to eat today and she has not been drinking water for the past 2 to 3 days. Pt has a guardian that reports that pt has chronic memory issues which is her baseline due to past chronic alcoholism. Allergies and Home Medications Allergies Coded Allergies: No Known Drug Allergies (Unverified , 07/20/12) Patient Home Medication List Home Medication List Reviewed: Yes Aspirin (Aspirin Ec Low Dose) 81 Mg Tablet., 81 MG PO DAILY, (Reported) Entered as Reported by: CRISTAL BERNAL on 11/20/13 0951 Buspirone HCl (Buspirone HCl) 10 Mg Tablet, 10 MG PO BID, (Reported) Entered as Reported by: ISAIAS PETER on 05/02/15 1700 Cefpodoxime Proxetil (Cefpodoxime Proxetil) 200 Mg Tablet, 200 MG PO BID Prescribed by: FINESSE DESAI on 05/04/15 1211 Diclofenac Sodium (Diclofenac Sodium) 75 Mg Tablet.dr, 75 MG PO BID, (Reported) Entered as Reported by: ISAIAS PETER on 05/02/15 1604 Furosemide (Furosemide) 40 Mg Tablet, 40 MG PO DAILY, (Reported) Entered as Reported by: ISAIAS PETER on 05/02/15 160 Gabapentin (Gabapentin) 300 Mg Capsule, 300 MG PO TID, (Reported) Entered as Reported by: ISAIAS PETER on 05/02/15 160 Hydrocodone/Acetaminophen (Hydrocodone/Acetaminophen 5 MG/325 MG TAB) 1 Each Tablet, 1 EACH PO Q4H PRN for PAIN Prescribed by: LI LOPEZ on 03/03/16 1620 Levomilnacipran Hydrochloride (Fetzima) 80 Mg Cap.sa.24h, 80 MG PO DAILY, (Reported) Entered as Reported by: ISAIAS PETER on 05/02/15 160 Loratadine (Loratadine) 10 Mg Tablet, 10 MG PO DAILY, (Reported) Entered as Reported by: ISAIAS PETER on 05/02/15 160 Lorazepam (Lorazepam) 0.5 Mg Tablet, 0.5 MG PO DAILY PRN for ANXIETY, (Reported) Entered as Reported by: ISAIAS PETER on 05/02/15 170 Multivitamin (Multi Vitamin Daily) 1 Each Tablet, 1 TAB PO DAILY, (Reported) Entered as Reported by: CRISTAL BERNAL on 11/20/13 0951 Potassium Chloride (Potassium Chloride) 20 Meq Tab.er.prt, 20 MEQ PO DAILY, (Reported) Entered as Reported by: ISAIAS PETER on 05/02/15 160 Quetiapine Fumarate (Quetiapine Fumarate) 100 Mg Tablet, 100 MG PO HS, (Reported) Entered as Reported by: ISAIAS PETER on 05/02/15 170 Tizanidine HCl (Tizanidine HCl) 4 Mg Tablet, 4 MG PO TID PRN for MUSCLE SPASMS, (Reported) Entered as Reported by: ISAIAS PETER on 05/02/15 160 Review of Systems Review of Systems Constitutional: no symptoms reported Eyes: No Symptoms Reported Ears, Nose, Mouth, Throat: no symptoms reported Respiratory: no symptoms reported Cardiovascular: no symptoms reported Gastrointestinal: no symptoms reported Genitourinary: no symptoms reported Musculoskeletal: no symptoms reported Skin: no symptoms reported Psychiatric/Neurological: Tonic Clonic Seizures Endocrine: No Symptoms Reported Hematologic/Lymphatic: No Symptoms Reported Past Jznvkzd-Lzyslg-Hsukme Hx Patient Social History Tobacco Use?: Yes Tobacco type used: Cigarettes Smoking Status: Current Everyday Smoker Substance use?: No Alcohol Use?: No Pt feels they are or have been: No Immunizations Up To Date Tetanus Booster (TDap): Unknown PED Vaccines UTD: No Influenza Vaccine Up-to-Date: Yes; Up-to-Date First/Initial COVID19 Vaccinat: 2020 Second COVID19 Vaccination Gurpreet: 2020 Seasonal Allergies Seasonal Allergies: No Past Medical History Surgery/Hospitalization HX: Asthma; Alcohol Dependence; High cholesterol; COPD; Seasonal allergies Surgeries: Yes (CYST ON OVARY) Respiratory: Yes Sleep Apnea, COPD Currently Using CPAP: No Currently Using BIPAP: No Cardiac: No Neurological: Yes Reproductive Disorders: No Female Reproductive Disorders: Denies Sexually Transmitted Disease: No HIV/AIDS: No Genitourinary: No Gastrointestinal: No Musculoskeletal: Yes (ANKLE FRACTURE) Arthritis, Chronic Back Pain Endocrine: No HEENT: No Cancer: No Psychosocial: Yes (ALCOHOLISM, THC USE) Sleep Difficulties, Anxiety, Suicide Attempts, Bipolar, Depression Integumentary: No Blood Disorders: No Family Medical History Alcoholism 19 FATHER G8 BROTHER G8 BROTHER G8 BROTHER G8 SISTER G8 SISTER FH: brain cancer G8 SISTER Neoplasm 19 MOTHER No Pertinent Family Hx Physical Exam Vital Signs Vital Signs - First Documented 07/11/21 15:01 Temp 37.1 Pulse 87 Resp 18 B/P (MAP) 114/80 (91) Pulse Ox 95 O2 Delivery Room Air Capillary Refill : Less Than 3 Seconds Height, Weight, BMI Height: 5'3.00" Weight: 115lbs. 8.0oz. 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 as tested, no motor/sensory deficits, alert, normal mood/affect, oriented x 3 Crainal Nerves: normal hearing, normal speech, PERRL Coordination/Gait: normal gait Motor/Sensory: no motor deficit, no sensory deficit Skin: normal color, warm/dry Lymphatic: no adenopathy Progress/Results/Core Measures Results/Orders Lab Results Laboratory Tests Test 07/11/21 14:55 07/11/21 15:00 07/11/21 16:40 Range/Units White Blood Count 11.1 H 4.3-11.0 10^3/uL Red Blood Count 3.98 3.80-5.11 10^6/uL Hemoglobin 12.8 11.5-16.0 g/dL Hematocrit 38 35-52 % Mean Corpuscular Volume 97 80-99 fL Mean Corpuscular Hemoglobin 32 25-34 pg Mean Corpuscular Hemoglobin Concent 33 32-36 g/dL Red Cell Distribution Width 12.7 10.0-14.5 % Platelet Count 165 130-400 10^3/uL Mean Platelet Volume 11.8 9.0-12.2 fL Immature Granulocyte % (Auto) 1 % Neutrophils (%) (Auto) 65 42-75 % Lymphocytes (%) (Auto) 22 12-44 % Monocytes (%) (Auto) 10 0-12 % Eosinophils (%) (Auto) 2 0-10 % Basophils (%) (Auto) 1 0-10 % Neutrophils # (Auto) 7.2 1.8-7.8 10^3/uL Lymphocytes # (Auto) 2.4 1.0-4.0 10^3/uL Monocytes # (Auto) 1.1 H 0.0-1.0 10^3/uL Eosinophils # (Auto) 0.2 0.0-0.3 10^3/uL Basophils # (Auto) 0.1 0.0-0.1 10^3/uL Immature Granulocyte # (Auto) 0.1 0.0-0.1 10^3/uL Sodium Level 138 135-145 MMOL/L Potassium Level 4.8 3.6-5.0 MMOL/L Chloride Level 101 98-107 MMOL/L Carbon Dioxide Level 21 21-32 MMOL/L Anion Gap 16 H 5-14 MMOL/L Blood Urea Nitrogen 10 7-18 MG/DL Creatinine 0.60 0.60-1.30 MG/DL Estimat Glomerular Filtration Rate 98 BUN/Creatinine Ratio 17 Glucose Level 86 70-105 MG/DL Calcium Level 9.1 8.5-10.1 MG/DL Corrected Calcium 8.5-10.1 MG/DL Magnesium Level 2.1 1.6-2.4 MG/DL Total Bilirubin 0.3 0.1-1.0 MG/DL Aspartate Amino Transf (AST/SGOT) 24 5-34 U/L Alanine Aminotransferase (ALT/SGPT) 11 0-55 U/L Alkaline Phosphatase 155 H 40-136 U/L Total Protein 7.6 6.4-8.2 GM/DL Albumin 4.7 H 3.2-4.5 GM/DL Serum Alcohol < 10 <10 MG/DL Urine Color YELLOW Urine Clarity CLEAR Urine pH 6.0 5-9 Urine Specific [place] 1.020 1.016-1.022 Urine Protein NEGATIVE NEGATIVE Urine Glucose (UA) NEGATIVE NEGATIVE Urine Ketones NEGATIVE NEGATIVE Urine Nitrite NEGATIVE NEGATIVE Urine Bilirubin NEGATIVE NEGATIVE Urine Urobilinogen 0.2 < = 1.0 MG/DL Urine Leukocyte Esterase NEGATIVE NEGATIVE Urine RBC (Auto) NEGATIVE NEGATIVE Urine RBC 5-10 H /HPF Urine WBC NONE /HPF Urine Squamous Epithelial Cells 5-10 /HPF Urine Crystals NONE /LPF Urine Bacteria TRACE /HPF Urine Casts NONE /LPF Urine Mucus NEGATIVE /LPF Urine Yeast LARGE H /HPF Urine Culture Indicated NO Urine Opiates Screen NEGATIVE NEGATIVE Urine Oxycodone Screen NEGATIVE NEGATIVE Urine Methadone Screen NEGATIVE NEGATIVE Urine Propoxyphene Screen NEGATIVE NEGATIVE Urine Barbiturates Screen NEGATIVE NEGATIVE Ur Tricyclic Antidepressants Screen NEGATIVE NEGATIVE Urine Phencyclidine Screen NEGATIVE NEGATIVE Urine Amphetamines Screen NEGATIVE NEGATIVE Urine Methamphetamines Screen NEGATIVE NEGATIVE Urine Benzodiazepines Screen NEGATIVE NEGATIVE Urine Cocaine Screen NEGATIVE NEGATIVE Urine Cannabinoids Screen NEGATIVE NEGATIVE My Orders Orders - TARA MULLIGAN MD Alcohol (07/11/21 14:52) Cbc With Automated Diff (07/11/21 14:52) Comprehensive Metabolic Panel (07/11/21 14:52) Drug Screen Stat (Urine) (07/11/21 14:52) Lactic Acid Analyzer (07/11/21 14:52) Magnesium (07/11/21 14:52) Ua Culture If Indicated (07/11/21 14:52) Ed Iv/Invasive Line Start (07/11/21 14:54) Ns Iv 1000 Ml (Sodium Chloride 0.9%) (07/11/21 15:00) Ct Head Wo (07/11/21 14:54) Levetiracetam Injection (Keppra Injectio (07/11/21 14:55) Lorazepam Injection (Ativan Injection) (07/11/21 14:57) Vital Signs/I&O 07/11/21 15:01 Temp 37.1 Pulse 87 Resp 18 B/P (MAP) 114/80 (91) Pulse Ox 95 O2 Delivery Room Air Blood Pressure Mean: 91 Progress Progress Note : Progress Note 1. NEW ONSET SEIZURE, UNPROVOKED: - CT HEAD: no acute changes - CBC/ CMP:unremarkable - UA/ UDS negative - NS IVF bolus STAT - Keppra 1500mg iv STAT/ Ativan 1mg iv STAT upon arrival to ER - Prescription for Keppra 500mg Q12H for 28 days; follow up with Neurology and PCP as soon as possible - Stay well hydrated -The patient was seen in the ED, and treated appropriately to presentation at a specific point in time. Patient is informed that there is a possibility that disease and illness can evolve and change in acuity rapidly or slowly after patient is discharged from the ER. Precautionary advice given to the patient for immediate return to ER if symptoms worsen or do not resolve, and to seek emergency care sooner rather than later. Pt also advised on the importance of PCP follow up and compliance with management and follow up plan with PCP and/or specialist, as this is part of the management plan. Pt verbally expressed understanding. Diagnostic Imaging Diagonstic Imaging: CT Plain Films/CT/US/NM/MRI: head Comments [facility] [place] NAME: MAMIE PIEDRA [facility] REC#: [id number] PT STATUS: REG ER : 1955 PHYSICIAN: TARA MULLIGAN MD ADMIT DATE: 07/11/21/ER FS Draft Date of Exam:07/11/21 CT HEAD WO CLINICAL INDICATION: Patient with first time seizure. EXAM: Axial CT scan of the brain performed without IV contrast. Auto Exposure Controls were utilized during the CT exam to meet ALARA standards for radiation dose reduction. COMPARISON: Head CT and cervical spine CT without contrast dated 09/09/2018. FINDINGS: There is motion artifact limiting evaluation of portions of this exam. There is skull streak artifact involving the posterior fossa, brainstem and portions of the brain and the skull base. There is no evidence of acute cerebral infarct, intracranial hemorrhage or gross mass effect. Again seen are multiple focal and patchy areas of low-attenuation white matter changes seen throughout the subcortical and deep white matter involving both cerebral hemispheres, likely representing chronic small vessel ischemic disease. 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 The brain parenchymal volume appears appropriate for patient's age. There is normal an-white matter distinction. There is no significant midline shift or herniation. There is no evidence of hydrocephalus. The basal cisterns are unremarkable. The skull, extracranial soft tissue and orbits are unremarkable. There is moderate amount of fluid involving the right maxillary sinus. Temporal bones show no significant abnormality. IMPRESSION: 1: Stable CT scan of the brain with no evidence of interval acute intracranial process. 2: Chronic small vessel ischemic disease. 3: There is stable small chronic infarct involving the left basal ganglia region. Departure Impression Primary Impression: New onset seizure without head trauma Disposition: HOME, SELF-CARE Condition: Improved Departure-Patient Inst. Referrals: GORDO WHITTEN MD (PCP) Primary Care Physician Patient Instructions: Seizures, Adult ED, Seizures, Adult (DC) Add. Discharge Instructions: - Prescription for Keppra 500mg Q12H for 28 days; follow up with Neurology and PCP as soon as possible - Stay well hydrated - Return to ER if symptoms worsen All discharge instructions reviewed with patient and/or family. Voiced understanding. Scripts Levetiracetam (Keppra) 500 Mg Tablet 500 MG PO Q12H for 28 Days, #56 TAB Prov: TARA MULLIGAN MD 07/11/21 TARA MULLIGAN MD Jul 11, 2021 16:27
[2021-07-11 16:46] LABS: BILIRUBIN,URINE NEGATIVE (NEGATIVE); CLARITY,URINE CLEAR; COLOR,URINE YELLOW; GLUCOSE, URINE (UA) NEGATIVE (NEGATIVE); KETONES,URINE NEGATIVE (NEGATIVE); LEUKOCYTE ESTERASE ,URINE NEGATIVE (NEGATIVE); NITRITE,URINE NEGATIVE (NEGATIVE); PROTEIN,URINE NEGATIVE (NEGATIVE)
[2021-07-11 16:56] LABS: BACTERIA,URINE TRACE /HPF
[2021-07-11 16:57] LABS: AMPHETAMINE SCREEN, URINE NEGATIVE (NEGATIVE); BARBITURATE SCREEN URINE NEGATIVE (NEGATIVE); BENZODIAZEPINES SCREEN URINE NEGATIVE (NEGATIVE); CANNABINOID SCREEN, URINE NEGATIVE (NEGATIVE); COCAINE SCREEN URINE NEGATIVE (NEGATIVE); METHADONE STAT NEGATIVE (NEGATIVE); OPIATE SCREEN URINE NEGATIVE (NEGATIVE); OXYCODONE STAT NEGATIVE (NEGATIVE); PROPOXYPHENE STAT NEGATIVE (NEGATIVE); TRICYCLIC ANTIDEPRESSANTS SCRE NEGATIVE (NEGATIVE); YEAST,URINE LARGE /HPF
[2021-07-11] MEDS ORDERED: LEVE500T99 PO (17:35)
[2021-07-11 17:44] VITALS: BP 110/78
== END 2021-07-11 17:47 | disposition home or self-care (01) ==
LOC: EDUNIT# 14:43 → ER FS 14:44
DX: R56.9 Unspecified convulsions (principal); F17.210 Nicotine dependence, cigarettes, uncomplicated; Z28.311 Partially vaccinated for COVID-19
CPT/HCPCS: 70450; 80053; 80306; 81000; 83735; 99284; G0480; 80320

== ENCOUNTER → 2021-10-06 | Outpatient (CLI) | payer MEDICARE, MEDICAID ==
[~2021-10-06] MED LIST changes: +LEVE500T99 PO
--- NOTE | 2021-10-06 10:04 | Diagnostic Imaging Report ---
CLINICAL INDICATION: Patient with TIA. EXAM: Axial CT scan of the brain performed without IV contrast. Auto Exposure Controls were utilized during the CT exam to meet ALARA standards for radiation dose reduction. COMPARISON: Head CT without contrast dated 07/11/2021. FINDINGS: There is no evidence of acute cerebral infarct, intracranial hemorrhage, or gross mass effect. There is no dense vessel sign. 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 There is no significant change to the patchy confluent areas of low-attenuation white matter changes involving both cerebral hemispheres, likely representing chronic small vessel ischemic disease. The brain parenchymal volume appears appropriate for patient's age. There is normal an-white matter distinction. There is no significant midline shift or herniation. There is no evidence of hydrocephalus. The basal cisterns are unremarkable. The skull, extracranial soft tissue, and orbits are unremarkable. Minimal mucosal thickening involving the sphenoid sinus. There is sclerosis of both mastoid air cells with the left side more than the right side. IMPRESSION: 1: Stable CT scan the brain with no evidence of acute intracranial process. There is no dense vessel sign. 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 3: There is stable chronic small vessel ischemic disease and leukoaraiosis. Dictated by: Dictated on workstation # [id number]
== END ==
LOC: RAD FS 08:48
PROVIDERS: ATTEND Family Medicine
DX: I67.81 Acute cerebrovascular insufficiency (principal); G45.9 Transient cerebral ischemic attack, unspecified
CPT/HCPCS: 70450

== ENCOUNTER 2021-11-19 11:30 | Emergency (ER) | payer OTHER, MEDICAID ==
--- NOTE | 2021-11-19 11:35 | ED Fall/Injury ---
General Stated Complaint: PAIN History of Present Illness Date Seen by Provider: Nov 19, 2021 Time Seen by Provider: 11:32 Initial Comments 66 yr F is brought here by EMS from the custodial with c/o a fall which occurred last night, and pt was found by staff around 11 AM today morning. As per EMS blood was found in the toilet and all over the room floor. Pt does not remember anything that happened last night. Pt c/o new onset low back pain and also left eye injury with laceration and black eye with eye swollen shut, and l eft cheek bruising and swelling. Pt has a guardian assigned to her. Pt may have dementia. Pt denies history of seizures but Keppra is on her past medication list. Allergies and Home Medications Allergies Coded Allergies: No Known Drug Allergies (Unverified , 07/20/12) Patient Home Medication List Home Medication List Reviewed: Yes Aspirin (Aspirin Ec Low Dose) 81 Mg Tablet.dr, 81 MG PO DAILY, (Reported) Entered as Reported by: CRISTAL BERNAL on 11/20/13 0951 Buspirone HCl (Buspirone HCl) 10 Mg Tablet, 10 MG PO BID, (Reported) Entered as Reported by: ISAIAS PETER on 05/02/15 1700 Cefpodoxime Proxetil (Cefpodoxime Proxetil) 200 Mg Tablet, 200 MG PO BID Prescribed by: FINESSE DESAI on 05/04/15 1211 Diclofenac Sodium (Diclofenac Sodium) 75 Mg Tablet.dr, 75 MG PO BID, (Reported) Entered as Reported by: ISAIAS PETER on 05/02/15 1604 Furosemide (Furosemide) 40 Mg Tablet, 40 MG PO DAILY, (Reported) Entered as Reported by: ISAIAS PETER on 05/02/15 1604 Gabapentin (Gabapentin) 300 Mg Capsule, 300 MG PO TID, (Reported) Entered as Reported by: ISAIAS PETER on 05/02/15 1604 Hydrocodone/Acetaminophen (Hydrocodone/Acetaminophen 5 MG/325 MG TAB) 1 Each Tablet, 1 EACH PO Q4H PRN for PAIN Prescribed by: LI LOPEZ on 03/03/16 1620 Levetiracetam (Keppra) 500 Mg Tablet, 500 MG PO Q12H Prescribed by: TARA MULLIGAN MD on 07/11/21 1735 Levomilnacipran Hydrochloride (Fetzima) 80 Mg Cap.sa.24h, 80 MG PO DAILY, (Reported) Entered as Reported by: ISAIAS PETER on 05/02/15 160 Loratadine (Loratadine) 10 Mg Tablet, 10 MG PO DAILY, (Reported) Entered as Reported by: ISAIAS PETER on 05/02/15 1604 Lorazepam (Lorazepam) 0.5 Mg Tablet, 0.5 MG PO DAILY PRN for ANXIETY, (Reported) Entered as Reported by: ISAIAS PETER on 05/02/15 1700 Multivitamin (Multi Vitamin Daily) 1 Each Tablet, 1 TAB PO DAILY, (Reported) Entered as Reported by: CRISTAL BERNAL on 11/20/13 0951 Potassium Chloride (Potassium Chloride) 20 Meq Tab.er.prt, 20 MEQ PO DAILY, (Reported) Entered as Reported by: ISAIAS PETER on 05/02/15 160 Quetiapine Fumarate (Quetiapine Fumarate) 100 Mg Tablet, 100 MG PO HS, (Reported) Entered as Reported by: ISAIAS PETER on 05/02/15 1700 Tizanidine HCl (Tizanidine HCl) 4 Mg Tablet, 4 MG PO TID PRN for MUSCLE SPASMS, (Reported) Entered as Reported by: ISAIAS PETER on 05/02/15 1604 Review of Systems Review of Systems Constitutional: no symptoms reported Eyes: Inflammation, Pain, Other (Pt unco-operative with exam) Ears, Nose, Mouth, Throat: no symptoms reported Respiratory: no symptoms reported Cardiovascular: no symptoms reported Genitourinary: no symptoms reported Musculoskeletal: back pain Skin: other (see above) Psychiatric/Neurological: No Symptoms Reported Past Prfksft-Vnuboy-Fuwiwv Hx Immunizations Up To Date Tetanus Booster (TDap): Unknown PED Vaccines UTD: No First/Initial COVID19 Vaccinat: 2020 Second COVID19 Vaccination Gurpreet: 2020 Seasonal Allergies Seasonal Allergies: No Past Medical History Surgery/Hospitalization HX: Asthma; Alcohol Dependence; High cholesterol; COPD; Seasonal allergies Surgeries: Yes (CYST ON OVARY) Respiratory: Yes Sleep Apnea, COPD Currently Using CPAP: No Currently Using BIPAP: No Cardiac: No Neurological: Yes Reproductive Disorders: No Female Reproductive Disorders: Denies Sexually Transmitted Disease: No HIV/AIDS: No Genitourinary: No Gastrointestinal: No Musculoskeletal: Yes (ANKLE FRACTURE) Arthritis, Chronic Back Pain Endocrine: No HEENT: No Cancer: No Psychosocial: Yes (ALCOHOLISM, THC USE) Sleep Difficulties, Anxiety, Suicide Attempts, Bipolar, Depression Integumentary: No Blood Disorders: No Family Medical History Alcoholism 19 FATHER G8 BROTHER G8 BROTHER G8 BROTHER G8 SISTER G8 SISTER FH: brain cancer G8 SISTER Neoplasm 19 MOTHER No Pertinent Family Hx Physical Exam Vital Signs Vital Signs - First Documented 11/19/21 11:53 Temp 36.6 Pulse 106 Resp 20 B/P (MAP) 98/82 (87) Pulse Ox 96 Capillary Refill : Height, Weight, BMI Height: 5'3.00" Weight: 115lbs. 8.0oz. [id number]; 29.00 BMI Method:Estimated General Appearance: mild distress HEENT: other (LEFT EYE: eyelids and surrounding area swollen, severe bruising, unable to open the eye/ laceration above left eyebrow, 2cm long, no active bleeding. Tenderness along left maxilla and left side of nose) Neck: non-tender, full range of motion, supple, normal inspection Cardiovascular: regular rate, rhythm Respiratory: lungs clear Gastrointestinal: non tender, soft Back: normal inspection, vertebral tenderness (along L2-L4, no step offs) Extremities: normal range of motion, non-tender, normal inspection, no pedal edema Neurologic/Psychiatric: alert, oriented x 3 [place] Coma Score Best Eye Response: (4) Open Spontaneously Best Verbal Response: (5) Oriented Best Motor Response: (6) Obeys Commands Justin Total: 15 Progress/Results/Core Measures Results/Orders Lab Results Laboratory Tests Test 11/19/21 11:47 11/19/21 15:43 Range/Units White Blood Count 20.4 H 4.3-11.0 10^3/uL Red Blood Count 2.81 L 3.80-5.11 10^6/uL Hemoglobin 9.0 L 11.5-16.0 g/dL Hematocrit 26 L 35-52 % Mean Corpuscular Volume 92 80-99 fL Mean Corpuscular Hemoglobin 32 25-34 pg Mean Corpuscular Hemoglobin Concent 35 32-36 g/dL Red Cell Distribution Width 12.4 10.0-14.5 % Platelet Count 217 130-400 10^3/uL Mean Platelet Volume 11.7 9.0-12.2 fL Immature Granulocyte % (Auto) 1 % Neutrophils (%) (Auto) 85 H 42-75 % Lymphocytes (%) (Auto) 7 L 12-44 % Monocytes (%) (Auto) 7 0-12 % Eosinophils (%) (Auto) 0 0-10 % Basophils (%) (Auto) 0 0-10 % Neutrophils # (Auto) 17.2 H 1.8-7.8 10^3/uL Lymphocytes # (Auto) 1.5 1.0-4.0 10^3/uL Monocytes # (Auto) 1.4 H 0.0-1.0 10^3/uL Eosinophils # (Auto) 0.0 0.0-0.3 10^3/uL Basophils # (Auto) 0.1 0.0-0.1 10^3/uL Immature Granulocyte # (Auto) 0.2 H 0.0-0.1 10^3/uL Neutrophils % (Manual) 77 % Lymphocytes % (Manual) 10 % Monocytes % (Manual) 7 % Band Neutrophils 6 % Platelet Estimate NORMAL Hypochromasia 1+ Prothrombin Time 13.3 12.2-14.7 SEC INR Comment 1.0 0.8-1.4 Activated Partial Thromboplast Time 21 L 24-35 SEC Sodium Level 138 135-145 MMOL/L Potassium Level 3.9 3.6-5.0 MMOL/L Chloride Level 102 98-107 MMOL/L Carbon Dioxide Level 22 21-32 MMOL/L Anion Gap 14 5-14 MMOL/L Blood Urea Nitrogen 18 7-18 MG/DL Creatinine 0.74 0.60-1.30 MG/DL Estimat Glomerular Filtration Rate 89 BUN/Creatinine Ratio 24 Glucose Level 124 H 70-105 MG/DL Calcium Level 8.6 8.5-10.1 MG/DL Corrected Calcium 8.8 8.5-10.1 MG/DL Total Bilirubin 0.3 0.1-1.0 MG/DL Aspartate Amino Transf (AST/SGOT) 18 5-34 U/L Alanine Aminotransferase (ALT/SGPT) 14 0-55 U/L Alkaline Phosphatase 128 40-136 U/L Total Creatine Kinase 313 H 29-168 U/L Troponin I < 0.30 <0.30 NG/ML Total Protein 6.2 L 6.4-8.2 GM/DL Albumin 3.7 3.2-4.5 GM/DL Urine Color YELLOW Urine Clarity CLEAR Urine pH 5.5 5-9 Urine Specific Grawn 1.015 L 1.016-1.022 Urine Protein NEGATIVE NEGATIVE Urine Glucose (UA) NEGATIVE NEGATIVE Urine Ketones 1+ H NEGATIVE Urine Nitrite NEGATIVE NEGATIVE Urine Bilirubin NEGATIVE NEGATIVE Urine Urobilinogen 0.2 < = 1.0 MG/DL Urine Leukocyte Esterase NEGATIVE NEGATIVE Urine RBC (Auto) NEGATIVE NEGATIVE Urine RBC NONE /HPF Urine WBC RARE /HPF Urine Squamous Epithelial Cells 0-2 /HPF Urine Crystals NONE /LPF Urine Bacteria NEGATIVE /HPF Urine Casts NONE /LPF Urine Mucus NEGATIVE /LPF Urine Culture Indicated NO My Orders Orders - TARA MULLIGAN MD Ct Head/Face/Cervical Wo (11/19/21 11:37) Cbc With Automated Diff (11/19/21 11:38) Comprehensive Metabolic Panel (11/19/21 11:38) Creatine Kinase (11/19/21 11:38) Protime With Inr (11/19/21 11:38) Partial Thromboplastin Time (11/19/21 11:38) Ua Culture If Indicated (11/19/21 11:38) Troponin I Fs (11/19/21 11:38) Manual Differential (11/19/21 11:47) Ct Thoracic/Lumbar Spine Wo (11/19/21 11:37) Creatine Kinase (11/19/21 14:19) Catheter(Urinary) Insert & Ass 03,15 (11/19/21 15:14) Lidocaine 2% (Urojet) (Xylocaine Urojet) (11/19/21 15:15) Vital Signs/I&O 11/19/21 11:53 Temp 36.6 Pulse 106 Resp 20 B/P (MAP) 98/82 (87) Pulse Ox 96 Progress Progress Note : Progress Note 1. FALL: L4 Vertebral Compression Fracture/ - CT HEAD/ FACE/ C-SPINE: Fractures of the anterior and posterolateral landeros of the left maxillary sinus with maxillary hemo-sinus and extension into the nondepressed and nondisplaced left inferior orbital rim - CT THORACIC-LUMBAR SPINE:L4 compression fracture with 10% loss of height with vertebral disruption - CBC/ CMP: WBC is 20.4 with a left shift - Soft BP, NS IVF - UA: no infection - Pt denies history of seizures but Keppra in her past medication list - Discussed with PCP, Dr Knott via phone, will plan to transfer to for Psine consult and OMFS. Diagnostic Imaging Diagonstic Imaging: CT Plain Films/CT/US/NM/MRI: facial bones, c-spine, head, other Comments [facility], [place] NAME: MAMIE PIEDRA REC#: [id number] PT STATUS: REG ER : 1955 PHYSICIAN: TARA MULLIGAN MD ADMIT DATE: 11/19/21/ER FS Draft Date of Exam:11/19/21 CT THORACIC/LUMBAR SPINE WO PROCEDURE: CT thoracic and lumbar spine without contrast. TECHNIQUE: Multiple contiguous axial images were obtained through the thoracic and lumbar spine without the use of intravenous contrast. Sagittal and coronal reformations were then performed. All CT scans use one or more of the following dose optimizing techniques: automated exposure control, MA and/or KvP adjustment based on a patient size and exam type, or iterative reconstruction. INDICATION: Trauma. Back pain. Anticoagulation therapy. COMPARISON: None. FINDINGS: Superior endplate compression fracture of L1 results in approximately 10% height loss. No retropulsion or involvement of the posterior elements is identified. No other thoracic or lumbar spine fractures. The visualized pelvis is intact. Tfjt-sg-trqhjvnw spondylotic changes are greatest in the midthoracic spine. No high-grade spinal canal or neural foraminal narrowing is evident by noncontrast CT. Rvyyvusk-ym-erhrwkuh atherosclerotic calcifications. Advanced colonic diverticulosis. Indeterminate pulmonary nodule in the left upper lobe measuring 0.9 cm is obscured by motion. IMPRESSION: 1. Superior endplate compression fracture of L1 resulting in approximately 10% height loss is age indeterminate but may be acute. This could be further evaluated with MRI. 2. Ihzd-js-rkwgfgtc spondylotic changes are greatest in the midthoracic spine. No evidence of high-grade neural impingement. 3. Indeterminate pulmonary nodule in the left upper lobe measures at least 0.9 cm. This is obscured by motion and could be semisolid or solid. Recommend nonemergent dedicated chest CT in one month. Dictated on workstation # [id number] Dict: 11/19/21 1224 Trans: 11/19/21 1236 [id number] [id number] Interpreted by: POOL VENEGAS MD Electronically signed by: [facility] [place] NAME: MAMIE PIEDRA [facility] REC#: [id number] PT STATUS: REG ER : 1955 PHYSICIAN: TARA MULLIGAN MD ADMIT DATE: 11/19/21/ER FS Draft Date of Exam:11/19/21 CT HEAD/FACE/CERVICAL WO PROCEDURE: CT head, face, and cervical spine without contrast. TECHNIQUE: Multiple contiguous axial images were obtained through the head, neck, and facial bones without the use of intravenous contrast. Sagittal and coronal reformations through the cervical spine and facial bones were also performed. Auto Exposure Controls were utilized during the CT exam to meet ALARA standards for radiation dose reduction. INDICATION: Fall Compared with CT head date 10/06/2021 most recent cervical imaging 09/09/2018 and most recent face CT is 06/29/2018. CT HEAD: There is no intracerebral hemorrhage, hydrocephalus, cerebral edema, mass or mass effect. Old lacunar infarcts and chronic white matter small vessel changes stable. There is intracranial atherosclerotic vascular calcifications. There are no abnormal extra-axial fluid collections. Facial fractures. Extensive soft tissue swelling left preseptal orbit with a scalp hematoma in the left frontal scalp level noted that hematoma measuring 2.1 x 1.8 cm. The anterior and posterior landeros of the frontal sinuses are intact and there is no frontal hemo-sinus. CERVICAL SPINE: Alignment stable. There are degenerative changes to the discs, endplates and facets chronic. No cervical fracture or dislocation. Craniocervical relationship and central skull base appeared intact. Carotid vascular calcifications noted. No airway embarrassment. No acute finding or change. FACIAL BONES: There are fractures of the anterior and posterior wall of the left maxillary sinus with maxillary hemo-sinus. Anterior fracture extends through the inferior orbital rim without its displacement. The remaining bony orbital landeros intact. Anterior nasal septal deviation not clearly changed. The nasal bones are intact. The pterygoid plates intact. The zygomatic arches are intact. There is severe left preseptal periorbital soft tissue swelling extending cephalad with a focal left frontal scalp hematoma. Landeros of the frontal sinuses intact. No mandibular fracture. There is bony defect. There is degenerative changes to the temporomandibular joints chronic. Some mild frontal and ethmoid air cell membrane thickening chronic. Sphenoid sinuses clear. Mastoids and middle ear cavities as well as the temporal bones appeared intact. IMPRESSION: CT HEAD: Facial fractures and soft tissue injuries but no calvarial fracture or intracerebral hemorrhage. CT CERVICAL SPINE: Chronic degenerative changes without cervical spinal fracture. CT FACIAL BONES: Fractures of the anterior and posterolateral landeros of the left maxillary sinus with maxillary hemo-sinus and extension into the nondepressed and nondisplaced left inferior orbital rim. Severe left preseptal periorbital soft tissue swelling but no proptosis or post septal orbital hematoma. No other facial fracture demonstrated. Dictated on workstation # [id number] Dict: 11/19/21 1228 Trans: 11/19/21 1248 [facility] [id number] Interpreted by: PORTIA SORIANO Electronically signed by: Departure Impression Primary Impression: Fracture of lumbar vertebra, compression Qualified Codes: S32.040A - Wedge compression fracture of fourth lumbar vertebra, initial encounter for closed fracture Additional Impression: Maxillary fracture, left side, initial encounter for closed fracture Disposition: XFER SHT-TRM HOSP Condition: Stable Admissions Decision to Admit Reason: Admit from ER (General) Decision to Admit/Date: Nov 19, 2021 Time/Decision to Admit Time: 13:50 Transfer Transfer Reason: Exceeds level of care Method of Transfer: EMS Departure-Patient Inst. Referrals: GORDO KNOTT MD (PCP/Family) Primary Care Physician Patient Instructions: Facial Fracture TARA MULLIGAN MD Nov 19, 2021 11:35
[2021-11-19 12:02] LABS: BASOPHILS # (AUTO) 0.1 10^3/uL (0.0-0.1); BASOPHILS % (AUTO) 0 % (0-10); EOSINOPHILS % (AUTO) 0 % (0-10); HEMATOCRIT 26 % (35-52); LYMPHOCYTES # (AUTO) 1.5 10^3/uL (1.0-4.0); LYMPHOCYTES % (AUTO) 7 % (12-44); MEAN CORPUSCULAR HEMOGLOBIN 32 pg (25-34); MEAN CORPUSCULAR HGB CONC 35 g/dL (32-36); MEAN CORPUSCULAR VOLUME 92 fL (80-99); MEAN PLATELET VOLUME 11.7 fL (9.0-12.2); MONOCYTES # (AUTO) 1.4 10^3/uL (0.0-1.0); MONOCYTES % (AUTO) 7 % (0-12); NEUTROPHILS # (AUTO) 17.2 10^3/uL (1.8-7.8); NEUTROPHILS % (AUTO) 85 % (42-75); PLATELET COUNT 217 10^3/uL (130-400); WHITE BLOOD COUNT 20.4 10^3/uL (4.3-11.0)
[2021-11-19 12:08] LABS: PROTHROMBIN TIME PATIENT 13.3 SEC (12.2-14.7)
[2021-11-19 12:20] LABS: ALANINE AMINOTRANSFERASE 14 U/L (0-55); ALKALINE PHOSPHATASE 128 U/L (40-136); BILIRUBIN,TOTAL 0.3 MG/DL (0.1-1.0); BUN/CREATININE RATIO 24; CALCIUM 8.6 MG/DL (8.5-10.1); CARBON DIOXIDE 22 MMOL/L (21-32); CHLORIDE 102 MMOL/L (98-107); CREATININE SERUM 0.74 MG/DL (0.60-1.30); GFR ESTIMATED 89; GLUCOSE 124 MG/DL (70-105); POTASSIUM 3.9 MMOL/L (3.6-5.0); SODIUM 138 MMOL/L (135-145)
[2021-11-19 12:21] LABS: ALBUMIN 3.7 GM/DL (3.2-4.5); TOTAL PROTEIN 6.2 GM/DL (6.4-8.2)
[2021-11-19 12:25] LABS: BAND NEUTROPHILS 6 %; LYMPHOCYTES % (MANUAL) 10 %; NEUTROPHILS % (MANUAL) 77 %
[2021-11-19 12:26] LABS: HYPOCHROMASIA 1+; MONOCYTES % (MANUAL) 7 %; PLATELET ESTIMATE NORMAL
--- NOTE | 2021-11-19 12:37 | Diagnostic Imaging Report ---
PROCEDURE: CT thoracic and lumbar spine without contrast. TECHNIQUE: Multiple contiguous axial images were obtained through the thoracic and lumbar spine without the use of intravenous contrast. Sagittal and coronal reformations were then performed. All CT scans use one or more of the following dose optimizing techniques: automated exposure control, MA and/or KvP adjustment based on a patient size and exam type, or iterative reconstruction. INDICATION: Trauma. Back pain. Anticoagulation therapy. COMPARISON: None. FINDINGS: Superior endplate compression fracture of L1 results in approximately 10% height loss. No retropulsion or involvement of the posterior elements is identified. No other thoracic or lumbar spine fractures. The visualized pelvis is intact. Udpt-ld-cxjmawkq spondylotic changes are greatest in the midthoracic spine. No high-grade spinal canal or neural foraminal narrowing is evident by noncontrast CT. Iyrdlcbb-fd-nizijhyb atherosclerotic calcifications. Advanced colonic diverticulosis. Indeterminate pulmonary nodule in the left upper lobe measuring 0.9 cm is obscured by motion. IMPRESSION: 1. Superior endplate compression fracture of L1 resulting in approximately 10% height loss is age indeterminate but may be acute. This could be further evaluated with MRI. 2. Iqjv-xe-evjjfeyq spondylotic changes are greatest in the midthoracic spine. No evidence of high-grade neural impingement. 3. Indeterminate pulmonary nodule in the left upper lobe measures at least 0.9 cm. This is obscured by motion and could be semisolid or solid. Recommend nonemergent dedicated chest CT in one month. Dictated by: Dictated on workstation # [id number]
--- NOTE | 2021-11-19 12:49 | Diagnostic Imaging Report ---
PROCEDURE: CT head, face, and cervical spine without contrast. TECHNIQUE: Multiple contiguous axial images were obtained through the head, neck, and facial bones without the use of intravenous contrast. Sagittal and coronal reformations through the cervical spine and facial bones were also performed. Auto Exposure Controls were utilized during the CT exam to meet ALARA standards for radiation dose reduction. INDICATION: Fall Compared with CT head date 10/06/2021 most recent cervical imaging 09/09/2018 and most recent face CT is 06/29/2018. CT HEAD: There is no intracerebral hemorrhage, hydrocephalus, cerebral edema, mass or mass effect. Old lacunar infarcts and chronic white matter small vessel changes stable. There is intracranial atherosclerotic vascular calcifications. There are no abnormal extra-axial fluid collections. Facial fractures. Extensive soft tissue swelling left preseptal orbit with a scalp hematoma in the left frontal scalp level noted that hematoma measuring 2.1 x 1.8 cm. The anterior and posterior landeros of the frontal sinuses are intact and there is no frontal hemo-sinus. CERVICAL SPINE: Alignment stable. There are degenerative changes to the discs, endplates and facets chronic. No cervical fracture or dislocation. Craniocervical relationship and central skull base appeared intact. Carotid vascular calcifications noted. No airway embarrassment. No acute finding or change. FACIAL BONES: There are fractures of the anterior and posterior wall of the left maxillary sinus with maxillary hemo-sinus. Anterior fracture extends through the inferior orbital rim without its displacement. The remaining bony orbital landeros intact. Anterior nasal septal deviation not clearly changed. The nasal bones are intact. The pterygoid plates intact. The zygomatic arches are intact. There is severe left preseptal periorbital soft tissue swelling extending cephalad with a focal left frontal scalp hematoma. Landeros of the frontal sinuses intact. No mandibular fracture. There is bony defect. There is degenerative changes to the temporomandibular joints chronic. Some mild frontal and ethmoid air cell membrane thickening chronic. Sphenoid sinuses clear. Mastoids and middle ear cavities as well as the temporal bones appeared intact. IMPRESSION: CT HEAD: Facial fractures and soft tissue injuries but no calvarial fracture or intracerebral hemorrhage. CT CERVICAL SPINE: Chronic degenerative changes without cervical spinal fracture. CT FACIAL BONES: Fractures of the anterior and posterolateral landeros of the left maxillary sinus with maxillary hemo-sinus and extension into the nondepressed and nondisplaced left inferior orbital rim. Severe left preseptal periorbital soft tissue swelling but no proptosis or post septal orbital hematoma. No other facial fracture demonstrated. Dictated by: Dictated on workstation # [id number]
[2021-11-19 15:01] LABS: CREATINE KINASE 313 U/L (29-168)
[2021-11-19] MEDS ORDERED: LIDOCAINE UROJET 2% GEL 10 ML PKG TOP ONE (15:15)
[2021-11-19 15:47] LABS: BILIRUBIN,URINE NEGATIVE (NEGATIVE); CLARITY,URINE CLEAR; COLOR,URINE YELLOW; GLUCOSE, URINE (UA) NEGATIVE (NEGATIVE); KETONES,URINE 1+ (NEGATIVE); LEUKOCYTE ESTERASE ,URINE NEGATIVE (NEGATIVE); NITRITE,URINE NEGATIVE (NEGATIVE); PH,URINE 5.5 (5-9); PROTEIN,URINE NEGATIVE (NEGATIVE)
[2021-11-19 15:52] LABS: BACTERIA,URINE NEGATIVE /HPF; SQUAMOUS EPITHELIAL CELL,UR 0-2 /HPF; WBC,URINE RARE /HPF
[2021-11-19 17:36] VITALS: BP 141/76
[2021-11-19] MEDS ORDERED: fentaNYL INJ 100 MCG/2 ML AMP IVP ONE (18:15)
== END 2021-11-19 18:34 | disposition short-term general hospital (02) ==
LOC: EDUNIT# 11:30 → ER FS 11:32
DX: S32.009A Unspecified fracture of unspecified lumbar vertebra, initial encounter for closed fracture (principal); S02.40DA Maxillary fracture, left side, initial encounter for closed fracture; W18.30XA Fall on same level, unspecified, initial encounter
CPT/HCPCS: 36415; 51702; 70450; 70486; 72125; 72128; 72131; 80053; 81000; 82550; 84484; 85007; 85027; 85610; 85730

== ENCOUNTER 2022-01-26 17:16 | Emergency (ER) | payer OTHER, MEDICAID ==
--- NOTE | 2022-01-26 17:29 | ED General ---
General Stated Complaint: MUSCLE SPASMS Source of Information: Patient, EMS, [facility] Records Exam Limitations: Other (mental status change) History of Present Illness Date Seen by Provider: Jan 26, 2022 Time Seen by Provider: 17:18 Initial Comments 66-year-old female with past medical history of dementia, previous chronic alcohol use, COPD coming in via EMS from the [facility] due to fever and muscle spasms. Started today reportedly, EMS reports a temperature of 101 Fahrenheit. Patient states she feels normal, denies any pain at this time. She is unsure why she is here. She is denying muscle spasms at this time. EMS also reports she was essentially naked, had not really gotten dressed today which is unusual for her, and the room smelled like urine, normally she would be able to make it to the bathroom. Allergies and Home Medications Allergies Coded Allergies: No Known Drug Allergies (Unverified , 07/20/12) Patient Home Medication List Home Medication List Reviewed: Yes Aspirin (Aspirin Ec Low Dose) 81 Mg Tablet.dr, 81 MG PO DAILY, (Reported) Entered as Reported by: CRISTAL BERNAL on 11/20/13 0951 Buspirone HCl (Buspirone HCl) 10 Mg Tablet, 10 MG PO BID, (Reported) Entered as Reported by: ISAIAS PETER on 05/02/15 1700 Cefpodoxime Proxetil (Cefpodoxime Proxetil) 200 Mg Tablet, 200 MG PO BID Prescribed by: FINESSE DESAI on 05/04/15 1211 Diclofenac Sodium (Diclofenac Sodium) 75 Mg Tablet.dr, 75 MG PO BID, (Reported) Entered as Reported by: ISAIAS PETER on 05/02/15 1604 Furosemide (Furosemide) 40 Mg Tablet, 40 MG PO DAILY, (Reported) Entered as Reported by: ISAIAS PETER on 05/02/15 1604 Gabapentin (Gabapentin) 300 Mg Capsule, 300 MG PO TID, (Reported) Entered as Reported by: ISAIAS PETER on 05/02/15 1604 Hydrocodone/Acetaminophen (Hydrocodone/Acetaminophen 5 MG/325 MG TAB) 1 Each Tablet, 1 EACH PO Q4H PRN for PAIN Prescribed by: LI LOPEZ on 03/03/16 1620 Levetiracetam (Keppra) 500 Mg Tablet, 500 MG PO Q12H Prescribed by: TARA MULLIGAN MD on 07/11/21 1735 Levetiracetam (Keppra) 500 Mg Tablet, 500 MG PO BID Prescribed by: KALYN GARCIA on 01/26/22 1824 Levomilnacipran Hydrochloride (Fetzima) 80 Mg Cap.sa.24h, 80 MG PO DAILY, (Reported) Entered as Reported by: ISAIAS PETER on 05/02/15 160 Loratadine (Loratadine) 10 Mg Tablet, 10 MG PO DAILY, (Reported) Entered as Reported by: ISAIAS PETER on 05/02/15 160 Lorazepam (Lorazepam) 0.5 Mg Tablet, 0.5 MG PO DAILY PRN for ANXIETY, (Reported) Entered as Reported by: ISAIAS PETER on 05/02/15 170 Multivitamin (Multi Vitamin Daily) 1 Each Tablet, 1 TAB PO DAILY, (Reported) Entered as Reported by: CRISTAL BERNAL on 11/20/13 0951 Potassium Chloride (Potassium Chloride) 20 Meq Tab.er.prt, 20 MEQ PO DAILY, (Reported) Entered as Reported by: ISAIAS EPTER on 05/02/15 160 Quetiapine Fumarate (Quetiapine Fumarate) 100 Mg Tablet, 100 MG PO HS, (Reported) Entered as Reported by: ISAIAS PETER on 05/02/15 1700 Tizanidine HCl (Tizanidine HCl) 4 Mg Tablet, 4 MG PO TID PRN for MUSCLE SPASMS, (Reported) Entered as Reported by: ISAIAS PETER on 05/02/15 1604 Review of Systems Review of Systems Constitutional: fever EENTM: no symptoms reported Respiratory: no symptoms reported Cardiovascular: no symptoms reported Gastrointestinal: no symptoms reported Genitourinary: no symptoms reported Musculoskeletal: see HPI Skin: no symptoms reported Psychiatric/Neurological: Other (confusion) Hematologic/Lymphatic: No Symptoms Reported Immunological/Allergic: no symptoms reported All Other Systems Reviewed Negative Unless Noted: Yes Past Mnvuisv-Nccyki-Bqmhpp Hx Immunizations Up To Date Tetanus Booster (TDap): Unknown PED Vaccines UTD: No First/Initial COVID19 Vaccinat: 2020 Second COVID19 Vaccination Gurpreet: 2020 Third COVID19 Vaccination Date: 2020 Seasonal Allergies Seasonal Allergies: No Past Medical History Surgery/Hospitalization HX: Asthma; Alcohol Dependence; High cholesterol; COPD; Seasonal allergies Surgeries: Yes (CYST ON OVARY) Respiratory: Yes Sleep Apnea, COPD Currently Using CPAP: No Currently Using BIPAP: No Cardiac: No Neurological: Yes Reproductive Disorders: No Female Reproductive Disorders: Denies Sexually Transmitted Disease: No HIV/AIDS: No Genitourinary: No Gastrointestinal: No Musculoskeletal: Yes (ANKLE FRACTURE) Arthritis, Chronic Back Pain Endocrine: No HEENT: No Cancer: No Psychosocial: Yes (ALCOHOLISM, THC USE) Sleep Difficulties, Anxiety, Suicide Attempts, Bipolar, Depression Integumentary: No Blood Disorders: No Family Medical History Alcoholism 19 FATHER G8 BROTHER G8 BROTHER G8 BROTHER G8 SISTER G8 SISTER FH: brain cancer G8 SISTER Neoplasm 19 MOTHER No Pertinent Family Hx Physical Exam Vital Signs Vital Signs - First Documented 01/26/22 17:16 Temp 37.5 Pulse 88 Resp 16 B/P (MAP) 121/65 (83) Pulse Ox 97 O2 Delivery Room Air Capillary Refill : Height, Weight, BMI Height: 5'3.00" Weight: 115lbs. 8.0oz. [id number]; 29.00 BMI Method:Estimated General Appearance: No Apparent Distress, WD/WN Eyes: Bilateral Eye Normal Inspection HEENT: PERRL/EOMI, Normal ENT Inspection, Pharynx Normal Neck: Full Range of Motion, Normal Inspection, Non Tender, Supple Respiratory: Chest Non Tender, Lungs Clear, Normal Breath Sounds, No Accessory Muscle Use, No Respiratory Distress Cardiovascular: Regular Rate, Rhythm, Normal Peripheral Pulses Gastrointestinal: Normal Bowel Sounds, Non Tender, Soft; No Distended, No Guarding Back: Normal Inspection, No CVA Tenderness Extremity: Normal Capillary Refill, Normal Inspection, Normal Range of Motion, Non Tender, No Calf Tenderness, No Pedal Edema Neurologic/Psychiatric: Alert, No Motor/Sensory Deficits, Normal Mood/Affect, Disoriented Skin: Normal Color, Warm/Dry Lymphatic: No Adenopathy Focused Exam Lactate Level 01/26/22 17:20: Lactic Acid Level 0.91 Lactic Acid Level Laboratory Tests Test 01/26/22 17:20 Lactic Acid Level 0.91 MMOL/L (0.50-2.00) Progress/Results/Core Measures Suspected Sepsis SIRS Temperature: Pulse: Respiratory Rate: Laboratory Tests 01/26/22 17:20: White Blood Count 14.4H Blood Pressure / Mean: 01/26/22 17:20: Lactic Acid Level 0.91 Laboratory Tests 01/26/22 17:20: Creatinine 0.55L, INR Comment 1.0, Platelet Count 263, Total Bilirubin 0.4 Results/Orders Lab Results Laboratory Tests Test 01/26/22 17:20 Range/Units White Blood Count 14.4 H 4.3-11.0 10^3/uL Red Blood Count 4.00 3.80-5.11 10^6/uL Hemoglobin 12.4 11.5-16.0 g/dL Hematocrit 36 35-52 % Mean Corpuscular Volume 91 80-99 fL Mean Corpuscular Hemoglobin 31 25-34 pg Mean Corpuscular Hemoglobin Concent 34 32-36 g/dL Red Cell Distribution Width 12.1 10.0-14.5 % Platelet Count 263 130-400 10^3/uL Mean Platelet Volume 11.2 9.0-12.2 fL Immature Granulocyte % (Auto) 0 % Neutrophils (%) (Auto) 86 H 42-75 % Lymphocytes (%) (Auto) 9 L 12-44 % Monocytes (%) (Auto) 4 0-12 % Eosinophils (%) (Auto) 0 0-10 % Basophils (%) (Auto) 1 0-10 % Neutrophils # (Auto) 12.3 H 1.8-7.8 10^3/uL Lymphocytes # (Auto) 1.3 1.0-4.0 10^3/uL Monocytes # (Auto) 0.6 0.0-1.0 10^3/uL Eosinophils # (Auto) 0.0 0.0-0.3 10^3/uL Basophils # (Auto) 0.1 0.0-0.1 10^3/uL Immature Granulocyte # (Auto) 0.0 0.0-0.1 10^3/uL Neutrophils % (Manual) 84 % Lymphocytes % (Manual) 8 % Monocytes % (Manual) 4 % Band Neutrophils 4 % Platelet Estimate NORMAL Blood Morphology Comment NORMAL Prothrombin Time 13.5 12.2-14.7 SEC INR Comment 1.0 0.8-1.4 Activated Partial Thromboplast Time 25 24-35 SEC Urine Color YELLOW Urine Clarity CLEAR Urine pH 6.0 5-9 Urine Specific [place] 1.020 1.016-1.022 Urine Protein NEGATIVE NEGATIVE Urine Glucose (UA) NEGATIVE NEGATIVE Urine Ketones 2+ H NEGATIVE Urine Nitrite NEGATIVE NEGATIVE Urine Bilirubin NEGATIVE NEGATIVE Urine Urobilinogen 0.2 < = 1.0 MG/DL Urine Leukocyte Esterase NEGATIVE NEGATIVE Urine RBC (Auto) NEGATIVE NEGATIVE Urine RBC NONE /HPF Urine WBC RARE /HPF Urine Squamous Epithelial Cells 5-10 /HPF Urine Crystals NONE /LPF Urine Bacteria NEGATIVE /HPF Urine Casts NONE /LPF Urine Mucus NEGATIVE /LPF Urine Yeast FEW BUDDING YEAST /HPF Urine Culture Indicated CULTURE PENDING Sodium Level 136 135-145 MMOL/L Potassium Level 3.5 L 3.6-5.0 MMOL/L Chloride Level 101 98-107 MMOL/L Carbon Dioxide Level 21 21-32 MMOL/L Anion Gap 14 5-14 MMOL/L Blood Urea Nitrogen 9 7-18 MG/DL Creatinine 0.55 L 0.60-1.30 MG/DL Estimat Glomerular Filtration Rate 100 BUN/Creatinine Ratio 16 Glucose Level 110 H 70-105 MG/DL Lactic Acid Level 0.91 0.50-2.00 MMOL/L Calcium Level 9.2 8.5-10.1 MG/DL Corrected Calcium 8.8 8.5-10.1 MG/DL Total Bilirubin 0.4 0.1-1.0 MG/DL Aspartate Amino Transf (AST/SGOT) 17 5-34 U/L Alanine Aminotransferase (ALT/SGPT) 9 0-55 U/L Alkaline Phosphatase 143 H 40-136 U/L Total Protein 7.3 6.4-8.2 GM/DL Albumin 4.5 3.2-4.5 GM/DL Influenza Type A (RT-PCR) Not Detected Not Detecte Influenza Type B (RT-PCR) Not Detected Not Detecte SARS-CoV-2 RNA (RT-PCR) Not Detected Not Detecte My Orders Orders - KALYN GARCIA MD Cbc With Automated Diff (01/26/22 17:23) Comprehensive Metabolic Panel (01/26/22 17:23) Blood Culture (01/26/22 17:23) Urinalysis (01/26/22 17:23) Urine Culture (01/26/22 17:23) Protime With Inr (01/26/22 17:23) Partial Thromboplastin Time (01/26/22 17:23) Chest 1 View Ap/Pa Only (01/26/22 17:23) Acetaminophen Tablet (Tylenol Tablet) (01/26/22 17:30) Ed Iv/Invasive Line Start (01/26/22 17:23) Ed Iv/Invasive Line Start (01/26/22 17:23) Vital Signs Adult Sepsis Patie Q15M (01/26/22 17:23) O2 (01/26/22 17:23) Remove Rings In Anticipation O (01/26/22 17:23) Lactic Acid Analyzer (01/26/22:) Influenza A And B By Pcr (01/26/22 17:23) Ns Iv 1000 Ml (Sodium Chloride 0.9%) (01/26/22 17:30) Covid 19 Inhouse Test (01/26/22 17:23) Manual Differential (01/26/22 17:20) Levetiracetam Tablet (Keppra Tablet) (01/26/22 18:30) Levetiracetam Tablet (Keppra Tablet) (01/26/22 18:19) Levetiracetam Tablet (Keppra Tablet) (01/26/22 18:20) Medications Given in ED Vital Signs/I&O 01/26/22 01/26/22 17:16 18:27 Temp 37.5 Pulse 88 87 Resp 16 18 B/P (MAP) 121/65 (83) 119/81 Pulse Ox 97 96 O2 Delivery Room Air Room Air 01/27/22 00:00 Intake Total 1000 ml Balance 1000 ml Capillary Refill : Progress Note : Progress Note 66-year-old female brought in due to mild confusion and body spasms. ABCs were intact and vitals were stable on presentation. Patient afebrile for us here. Given Tylenol p.o. as EMS reports her temp was 101 for them. An IV was placed and basic labs were obtained were significant for white blood cell count of 14, normal creatinine, urine without evidence of infection, normal hemoglobin, chest x-ray clear with no acute abnormalities. Lactic acid normal. Her white blood cell count has come down since the most recent time she was here. She was given a bolus of IV fluids to see if that would help. I contacted the nurse-the snf to discuss the patient's case to see if more could come out from the history. She states she was more concerned that the patient had some jerking motions in the remote past, was placed on Keppra, and her jerking motions had stopped and confusion seemed better. She finished that course of Keppra recently, and she noticed these motions again tonight. Patient is very confused at baseline per the nurse, and typically does not know anyone's name, but typically is able to converse somewhat. I will restart her on a short course of Keppra, and the patient will see her PCP during rounds on Wednesday per the nurse. They can decide at that point if they would like to continue the medication. Since she is otherwise at her baseline, does not appear septic, no clinical signs of bacterial infection, I believe she is stable for discharge with outpatient follow-up. Likely does have something viral, although flu and COVID test were negative here. Diagnostic Imaging Diagonstic Imaging: Xray Plain Films/CT/US/NM/MRI: chest Comments NAME: M[facility]EDRA [facility] REC#: [id number] PT STATUS: REG ER : 1955 PHYSICIAN: KALYN GARCIA MD ADMIT DATE: 01/26/22/ER FS Draft Date of Exam:01/26/22 CHEST 1 VIEW AP/PA ONLY HISTORY: Altered mental status. TECHNIQUE: Frontal view of the chest. COMPARISON: 03/18/2021. FINDINGS: Lung volumes are mildly large. There is mild scarring in the right lung base. There is no consolidation or pleural effusion or pneumothorax. The cardiac silhouette is stable in size. There is aortic atherosclerosis. IMPRESSION: 1. No acute pulmonary abnormality. Dictated on workstation # [id number] Dict: 01/26/22 1749 Trans: 01/26/22 1753 [id number] Interpreted by: PATIENCE MARTINEZ MD Electronically signed by: Departure Impression Primary Impression: Jerking movements of extremities Additional Impression: Confusion Disposition: 01 HOME, SELF-CARE Condition: Stable Departure-Patient Inst. Decision time for Depature: 18:30 Referrals: GORDO KNOTT MD (PCP/Family) Primary Care Physician Patient Instructions: Altered Mental Status Add. Discharge Instructions: We will restart her on Keppra for the next couple of weeks so Dr. Knott can decide if you would like to continue this, please mention the jerking motions that were seen in the snf. Give her Tylenol as needed for fever or pain. Labs otherwise unremarkable with no signs of bacterial infection in ER. COVID and flu test were negative as well. Chest x-ray was clear Scripts Levetiracetam (Keppra) 500 Mg Tablet 500 MG PO BID for 14 Days, #28 TAB Prov: KALYN GARCIA MD 01/26/22 KALYN AGRCIA MD Jan 26, 2022 17:29
[2022-01-26] MEDS ORDERED: NS IV 1000 ML 1,000 ML IV SCH (17:30)
[2022-01-26] MEDS ORDERED: ACETAMINOPHEN 500 MG TAB (TYLENOL) PO PRN (17:30)
[2022-01-26 17:36] LABS: BASOPHILS # (AUTO) 0.1 10^3/uL (0.0-0.1); BASOPHILS % (AUTO) 1 % (0-10); EOSINOPHILS % (AUTO) 0 % (0-10); HEMATOCRIT 36 % (35-52); HEMOGLOBIN 12.4 g/dL (11.5-16.0); LYMPHOCYTES # (AUTO) 1.3 10^3/uL (1.0-4.0); LYMPHOCYTES % (AUTO) 9 % (12-44); MEAN CORPUSCULAR HEMOGLOBIN 31 pg (25-34); MEAN CORPUSCULAR HGB CONC 34 g/dL (32-36); MEAN CORPUSCULAR VOLUME 91 fL (80-99); MEAN PLATELET VOLUME 11.2 fL (9.0-12.2); MONOCYTES # (AUTO) 0.6 10^3/uL (0.0-1.0); MONOCYTES % (AUTO) 4 % (0-12); NEUTROPHILS # (AUTO) 12.3 10^3/uL (1.8-7.8); NEUTROPHILS % (AUTO) 86 % (42-75); PLATELET COUNT 263 10^3/uL (130-400); WHITE BLOOD COUNT 14.4 10^3/uL (4.3-11.0)
[2022-01-26 17:51] LABS: BILIRUBIN,URINE NEGATIVE (NEGATIVE); CLARITY,URINE CLEAR; COLOR,URINE YELLOW; GLUCOSE, URINE (UA) NEGATIVE (NEGATIVE); KETONES,URINE 2+ (NEGATIVE); LEUKOCYTE ESTERASE ,URINE NEGATIVE (NEGATIVE); NITRITE,URINE NEGATIVE (NEGATIVE); PROTEIN,URINE NEGATIVE (NEGATIVE)
--- NOTE | 2022-01-26 17:53 | Diagnostic Imaging Report ---
HISTORY: Altered mental status. TECHNIQUE: Frontal view of the chest. COMPARISON: 03/18/2021. FINDINGS: Lung volumes are mildly large. There is mild scarring in the right lung base. There is no consolidation or pleural effusion or pneumothorax. The cardiac silhouette is stable in size. There is aortic atherosclerosis. IMPRESSION: 1. No acute pulmonary abnormality. Dictated by: Dictated on workstation # [id number]
[2022-01-26 18:02] LABS: BACTERIA,URINE NEGATIVE /HPF; WBC,URINE RARE /HPF
[2022-01-26 18:03] LABS: YEAST,URINE FEW BUDDING YEAST /HPF
[2022-01-26 18:04] LABS: BAND NEUTROPHILS 4 %; NEUTROPHILS % (MANUAL) 84 %
[2022-01-26 18:05] LABS: LYMPHOCYTES % (MANUAL) 8 %; MONOCYTES % (MANUAL) 4 %; PLATELET ESTIMATE NORMAL; PROTHROMBIN TIME PATIENT 13.5 SEC (12.2-14.7); RBC MORPH NORMAL
[2022-01-26 18:06] LABS: ALBUMIN 4.5 GM/DL (3.2-4.5); BILIRUBIN,TOTAL 0.4 MG/DL (0.1-1.0); CALCIUM 9.2 MG/DL (8.5-10.1); CREATININE SERUM 0.55 MG/DL (0.60-1.30); POTASSIUM 3.5 MMOL/L (3.6-5.0); TOTAL PROTEIN 7.3 GM/DL (6.4-8.2)
[2022-01-26] MEDS ORDERED: LEVE500T99 PO (18:24)
[2022-01-26 18:27] VITALS: BP 119/81
== END 2022-01-26 18:50 | disposition home or self-care (01) ==
LOC: EDUNIT# 17:16 → ER FS 17:17
DX: M62.838 Other muscle spasm (principal); R25.3 Fasciculation; R41.0 Disorientation, unspecified; R50.9 Fever, unspecified; Z20.822 Contact with and (suspected) exposure to COVID-19
CPT/HCPCS: 36415; 51702; 71045; 80053; 81000; 83605; 85007; 85027; 85610; 85730; 87040; 87088; 87636